=== PATIENT | female | born 1975 | race Caucasian/White ===

== ENCOUNTER → 2018-03-07 07:53 | Outpatient (POV) | payer BC, SELFPAY | PROVIDERS: Family Provider Nurse Practitioner Family; PCP Nurse Practitioner Family; Visit Provider Dermatology | DX: Z00.00 Encounter for general adult medical examination without 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 (principal) ==

== ENCOUNTER → 2018-06-06 07:58 | Outpatient (POV) | payer BC, SELFPAY | PROVIDERS: Family Provider Nurse Practitioner Family; PCP Nurse Practitioner Family; Visit Provider Dermatology | DX: Z00.00 Encounter for general adult medical examination without 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 (principal) ==

== ENCOUNTER → 2019-02-18 14:11 | Outpatient (POV) | payer SELFPAY | PROVIDERS: Visit Provider Dermatology | DX: Z00.00 Encounter for general adult medical examination without 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 (principal) ==

== ENCOUNTER → 2019-05-24 10:14 | Outpatient (CLI) | payer BC, SELFPAY ==
--- NOTE | 2019-05-24 10:24 | XR_ITS ---
PROCEDURE: XR FOOT LT MIN 3V CLINICAL INDICATION: PAIN Swelling and redness COMPARISON: No exams were available for comparison FINDINGS: No fracture or dislocation. No lytic or blastic change. There is normal mineralization. Osteoarthritic changes are present at the 1st MTP joint with hypertrophy of the distal aspect of the 1st metatarsal Other findings:None. 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
== END ==
PROVIDERS: PCP Nurse Practitioner Family; Visit Provider Nurse Practitioner Family
DX: M79.672 Pain in left foot (principal)
CPT/HCPCS: 73630

== ENCOUNTER → 2020-03-15 15:57 | Outpatient (CLI) | payer BC, SELFPAY ==
--- NOTE | 2020-03-15 16:08 | XR_ITS ---
PROCEDURE: XR MULTIPLE SPINE 4-5V CLINICAL INDICATION: BILATERAL SCIATICA Low back pain radiating to both hips, recent fall with injury and pain COMPARISON: No exams were available for comparison FINDINGS: Five views are obtained of the lumbar spine showing normal alignment. No fracture or dislocation. There is degenerative disc disease in the lower thoracic spine with small ventral osteophytes. IMPRESSION: Degenerative changes lower thoracic spine. Unremarkable lumbar spine Dictated by: Al Hebert MD 03/15/2020 16:33 Electronically signed by Al Hebert MD in [facility] 03/15/2020 16:33
== END ==
PROVIDERS: PCP Nurse Practitioner Family; Visit Provider Nurse Practitioner Family
DX: M54.42 Lumbago with sciatica, left side (principal); M54.41 Lumbago with sciatica, right side
CPT/HCPCS: 72083

== ENCOUNTER → 2020-06-28 08:10 | Outpatient (CLI) | payer BC, SELFPAY ==
--- NOTE | 2020-06-28 08:18 | XR_ITS ---
PROCEDURE: XR WRIST RT MIN 3V CLINICAL INDICATION: right wrist pain COMPARISON: No exams were available for comparison FINDINGS: No fracture or dislocation. No lytic or blastic change. There is normal mineralization. The joint spaces are well-preserved. No significant degenerative/arthritic changes. No erosive changes evident. Other findings:None. IMPRESSION: No acute findings. Dictated by: Al eHbert MD 06/28/2020 17:47 Al Hebert MD in [place] 06/28/2020 17:47
--- NOTE | 2020-06-28 08:18 | XR_ITS ---
PROCEDURE: XR WRIST LT MIN 3V CLINICAL INDICATION: left wrist pain COMPARISON: No exams were available for comparison FINDINGS: There is a vague lucency in the mid aspect of the scaphoid possibly due to overlying groove in the scaphoid. Dedicated images of the scaphoid or CT scan may provide further evaluation if clinically warranted.. The joint spaces are well-preserved. No significant degenerative/arthritic changes. No erosive changes evident. Other findings:Minimal hyperostosis involves the radial styloid laterally. IMPRESSION: Nonspecific lucency of the scaphoid possibly artifactual. Scaphoid images or CT may confirm if clinically warranted Dictated by: Al Hebert MD 06/28/2020 17:48 Al Hebert MD in [place] 06/28/2020 17:48
== END ==
PROVIDERS: PCP Nurse Practitioner Family; Visit Provider Orthopaedic Surgery
DX: M25.532 Pain in left wrist (principal); M25.531 Pain in right wrist
CPT/HCPCS: 73110

== ENCOUNTER → 2020-08-16 09:08 | Outpatient (CLI) | payer BC, SELFPAY ==
[2020-08-16 10:03] LABS: Basophils # 0.1 K/mm3 (0-0.2); Basophils % 0.4 % (0.1-2.0); Eosinophils % 0.4 % (0.1-12.0); Hematocrit 44.6 % (37.0-47.0); Hemoglobin 15.4 g/dL (12.2-16.2); Lymphocytes # 4.2 K/mm3 (0.7-4.5); Lymphocytes % 39.8 % (10-50); Mean Corpuscular HGB Conc 34.5 g/dL (31.8-35.4); Mean Corpuscular Volume 89.9 fl (81-99); Monocytes # 0.6 K/mm3 (0.1-1.0); Monocytes % 5.6 % (1.7-9.3); Neutrophils # 5.7 K/mm3 (1.8-7.8); Neutrophils % 53.8 % (37.0-80.0); Platelet Count 336 K/mm3 (142-424); Red Blood Count 4.96 M/mm3 (4.20-5.40); Red Cell Distribution Width 13.6 % (11.5-17.5); White Blood Count 10.5 K/mm3 (4.8-10.8)
[2020-08-16 11:49] LABS: Alanine Aminotransferase 17 U/L (12-78); Albumin Level 4.3 g/dl (3.5-5.0); Albumin/Globulin Ratio 1.6 (1.1-1.8); Alkaline Phosphatase 53 U/L (38-126); Anion Gap 11.3 mEq/L (5-15); Aspartate Amino Transferase 20 U/L (14-36); Bilirubin,Total 0.8 mg/dl (0.2-1.3); Blood Urea Nitrogen 17 mg/dl (7-17); Calcium 9.8 mg/dl (8.4-10.2); Carbon Dioxide 31 mmol/L (22.0-30.0); Chloride 98 mmol/L (98-107); Estimated Glomerular Filt Rate 77 ml/min (>60); GFR (African American) 93 ML/MIN (>60); Globulin 2.7 g/dL (1.3-3.2); Glucose 100 mg/dl (74-100); Potassium 3.3 mmoL/L (3.5-5.1); Sodium 137 mmol/L (136-145)
[2020-08-16 14:27] LABS: Coronavirus 19 IgG Antibody Negative (Negative); Coronavirus 19 IgM Antibody Negative (Negative)
[2020-08-16 16:39] LABS: MANUAL DIFFERENTIAL MANUAL DIFFERENTIAL (MANUAL DIFF)
[2020-08-16 17:45] LABS: Lymphocytes % 35 % (10-50); Monocytes % 6 % (2-9); Neutrophils % 59 % (42-76); Platelet Estimate Normal; RBC Morphology Normal; Total Cells Counted 100
== END ==
PROVIDERS: Visit Provider Orthopaedic Surgery
DX: Z01.818 Encounter for other preprocedural examination (principal); G56.00 Carpal tunnel syndrome, unspecified upper limb
CPT/HCPCS: 36415; 80053; 85007; 85014; 85018; 85048; 85049; 86328

== ENCOUNTER 2020-08-17 06:04 | Day surgery (SDC) | payer BC, SELFPAY ==
[2020-08-13 14:07] VITALS: BMI 36.6
[2020-08-17] VITALS (7 sets, daily range): BP systolic 124–153; BP diastolic 79–99; PULSE 68–91; RESP 18–20; TEMP 36.3–43; O2SAT 92–98
[2020-08-17 06:37] LABS: Urine Pregnancy, HCG Qual. Negative (Negative)
--- NOTE | 2020-08-17 06:47 | HMH.ANESCL ---
[facility] Anesthesia Checklist - Patient Identification Patient Identification: Arm Band, Verbal (Name & ) - Structural Data Admitted From: Home Planned Operative Procedure/s: Right CTR Consent for Planned Operative Procedure(s) Verified: Yes Verified Documents: Surgical Consent, History and Physical - NPO Status Verified Time NPO: 22:00 - Chart Verification Results Verified: CBC, BMP, HCG - Additional verifications Patient : No Anesthesia Reactions: No Hx Blood Transfusions: No Blood Transfusion Reaction: No - Airway Assessment C-Spine Mobility Assessed: Yes TMJ Mobility Assessed: Yes Dentition: Good Dentition - Neurological Assessment Level of Consciousness: Awake, Alert, Appropriate, Follows Commands Hx Seizures: No Numbness or tingling in extremities: Yes (Right hand) - Anesthesia Plan Anesthesia Risk discussed: Yes Anesthesia Plan: Verified ASA Class: II Anesthesia Type: MAC w/Block (Right supraclaviculer nerve block) [facility] History I have reviewed the patient's past medical history: Yes Medical History: Reports:: Anxiety, Gastroesophageal Reflux Disease(GERD), Hypertension Denies:: Cancer, Diabetes Mellitus Type 1, Diabetes Mellitus Type 2, Internal Pacemaker, MRSA, Seizures *Have you ever received a pneumonia vaccine?: No *Have you received a flu vaccine this season?: Yes Other Medical History: Reports: Hypothyroidism. Denies: Blood Transfusion Reaction Comment:: obesity Anesthesia experience/problems:: None Laterality Cases: Bilateral: Tonsillectomy Other Surgeries: No: Pacemaker Amputation: No Fractures: No - *Social History Smoking Status: Never smoker Alcohol Intake: never Substance Use Type: denies use *Occupational Status:: employed Housing: house Household Members: spouse *Travel in the last 8 weeks: None Family Hx:: Other (NA)
--- NOTE | 2020-08-17 12:10 | HMH.OPNOTE ---
Date of procedure: 08/17/20 Pre-op Diagnosis:: R carpal tunnel syndrome Post-op Diagnosis:: R carpal tunnel syndrome Procedure performed:: R carpal tunnel release Surgeon:: Alissa Rodríguez MD [employer] Technician(s):: Cici Keith MAKING DEPARTMENT PREPARER:: Adam Nash Anesthesia: MAC, regional (short-acting supraclavicular block ), local (10cc 0.5% marcaine w/o epi) Estimated blood loss (mL): 5 Clinical Note:: 45-year-old eryjp-mnuh-qgwssyaw female with pain, numbness and tingling in bilateral upper extremities present for over a year. Symptoms have been worse in the last 6 months or so. The right hand is symptomatically worse than the left. Symptoms are confined to the lateral aspect of the hand, in the median nerve distribution. They frequently wake her at night despite wearing braces to sleep. Additionally she has tried activity modification and naproxen, with no improvement. She has a history of hypertension hypothyroidism but denies a history of diabetes. She is a non-smoker, BMI 36. EMG?NCS bilateral upper extremities 04/26/2020 consistent with bilateral carpal tunnel syndrome, electrophysiologically moderate on the right and mild on the left. There are chronic neuropathic changes present in the right abductor pollicis brevis muscle. I discussed treatment options again with the patient, and she would like to proceed with R CTR as soon as possible. We discussed the risks of surgery, including but not limited to: bleeding, infection, neurovascular damage, wound dehiscence, persistence of symptoms despite surgery, recurrence of CTS and need for revision surgery in the future. The patient vocalized understanding and provided informed consent for the procedure. Operative findings:: median nerve compression R wrist Operative note:: The patient was identified in preoperative holding and the R wrist signed by myself. She was then seen by anesthesia and the decision was made to anesthetize the arm using a supraclavicular nerve block with MAC. I reviewed the consent with the patient and all questions were answered. Block was performed by anesthesia in pre-operative holding. The patient was then taken to the OR where she was placed supine on the operative table with a hand table attached. 1 g of Ancef was infused intravenously and light sedation administered. The right arm was prepped and draped in the usual sterile. Timeout was performed, identifying the correct patient, correct procedure, and correct site. The procedure was begun by using anatomic landmarks to draw the desired surgical incision with marking pen. The incision was drawn over the volar aspect of the right wrist at the intersection of Carroll's cardinal line and the radial border of the ring finger, extending proximally to the wrist flexion crease. The right arm was exsanguinated wtih Esmarch and the tourniquet inflated to 250mmHg. Incision was made with a 15 blade over the previously delineated incision. After the skin was incised, a blunt-tipped tenotomy scissors was used to bluntly spread the subcutaneous tissue. Tissue was spread until the transverse carpal ligament was identified. The proximal margin of the ligament was palpated with a [place] elevator. I was able to slip the tip of the free air under the proximal edge of the transverse carpal ligament and into the carpal tunnel. Using a fresh 15 blade, I lightly teased to the fibers of the transverse carpal ligament and release them from proximally to distally using the [place] to protect the underlying carpal tunnel contents. I continued to cut down onto the [place] moving distally, until the entire transverse carpal ligament was released. Then, using the blunt tenotomy scissors, I push cut around 5 mm of the distal forearm fascia and palpated the distal end of the transverse carpal ligament, confirming that the entire canal had been released. The median nerve was readily identified underlying the ligament and it was hyperemic; the portion of the nerve within the
== END 2020-08-17 09:50 | disposition home or self-care (01) ==
LOC: OR 06:06
PROVIDERS: PCP Nurse Practitioner Family; Visit Provider Orthopaedic Surgery
PROC: (CPT 64721; principal; 2020-08-17 07:30)
DX: G56.01 Carpal tunnel syndrome, right upper limb (principal)
CPT/HCPCS: 64721; 81025; 96374; J0670

== ENCOUNTER → 2021-01-11 13:08 | Outpatient (POV) | payer BC, SELFPAY | PROVIDERS: Visit Provider Dermatology | DX: Z00.00 Encounter for general adult medical examination without 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 (principal) ==

== ENCOUNTER → 2021-03-08 07:05 | Outpatient (CLI) | payer BC, SELFPAY ==
[2021-03-08 07:51] LABS: Basophils % 0.5 % (0.1-2.0); Eosinophils # 0.2 K/mm3 (0.0-0.4); Eosinophils % 2.5 % (0.1-12.0); Hematocrit 43.2 % (37.0-47.0); Hemoglobin 14.9 g/dL (12.2-16.2); Lymphocytes # 1.7 K/mm3 (0.7-4.5); Lymphocytes % 23.4 % (10-50); Mean Corpuscular HGB Conc 34.4 g/dL (31.8-35.4); Mean Corpuscular Hemoglobin 30.6 pg (27.0-31.2); Mean Corpuscular Volume 88.9 fl (81-99); Mean Platelet Volume 8.9 fl (7.4-10.4); Monocytes # 0.5 K/mm3 (0.1-1.0); Monocytes % 7.4 % (1.7-9.3); Neutrophils # 4.8 K/mm3 (1.8-7.8); Neutrophils % 66.2 % (37.0-80.0); Platelet Count 252 K/mm3 (142-424); Red Blood Count 4.86 M/mm3 (4.20-5.40); Red Cell Distribution Width 13.3 % (11.5-17.5); White Blood Count 7.2 K/mm3 (4.8-10.8)
[2021-03-08 08:21] LABS: Alanine Aminotransferase 17 U/L (12-78); Albumin Level 4.3 g/dl (3.5-5.0); Albumin/Globulin Ratio 1.7 (1.1-1.8); Alkaline Phosphatase 58 U/L (38-126); Anion Gap 8.3 mEq/L (5-15); Aspartate Amino Transferase 17 U/L (14-36); Bilirubin,Total 0.9 mg/dl (0.2-1.3); Blood Urea Nitrogen 10 mg/dl (7-17); Calcium 9.4 mg/dl (8.4-10.2); Carbon Dioxide 29 mmol/L (22.0-30.0); Chloride 102 mmol/L (98-107); Chol/HDL Ratio 4.1 (1-3.5); Cholesterol 203 mg/dl (140-200); Estimated Glomerular Filt Rate 77 ml/min (>60); GFR (African American) 93 ML/MIN (>60); Globulin 2.6 g/dL (1.3-3.2); Glucose 107 mg/dl (74-100); HDL Cholesterol 50 mg/dl (40-60); Potassium 3.3 mmoL/L (3.5-5.1); Sodium 136 mmol/L (136-145); Total Protein,Serum 6.9 g/dl (6.3-8.2); Triglycerides 81 mg/dl (30-150); VLDL Cholesterol 16 mg/dL (0-40)
[2021-03-08 08:32] LABS: Direct LDL Cholesterol 120.97 mg/dL (100-129)
[2021-03-08 08:38] LABS: 25-OH Vitamin D, Total 42.8 ng/mL (30-100)
[2021-03-08 08:52] LABS: Thyroid Stimulating Hormone 2.85 uIU/mL (0.465-4.68)
[2021-03-08 09:11] LABS: Vitamin B12 298 pg/mL (239-931)
== END ==
PROVIDERS: Visit Provider Nurse Practitioner Family
DX: Z00.00 Encounter for general adult medical examination without 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 (principal); E06.3 Autoimmune thyroiditis; R20.2 Paresthesia of skin; K21.9 Gastro-esophageal reflux disease without esophagitis; Z68.36 Body mass index [BMI] 36.0-36.9, adult; E66.9 Obesity, unspecified
CPT/HCPCS: 36415; 80053; 80061; 82306; 82607; 84439; 84443; 85025

== ENCOUNTER → 2021-03-15 09:33 | Outpatient (POV) | payer BC, SELFPAY | PROVIDERS: Visit Provider Otolaryngology | DX: Z00.00 Encounter for general adult medical examination without 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 (principal) ==

== ENCOUNTER 2021-05-20 19:58 | Emergency (ER) | payer BC, SELFPAY ==
[2021-05-20 20:00] VITALS: BP 134/89; PULSE 97; RESP 18; TEMP 36.8; O2SAT 98; BMI 29.2
--- NOTE | 2021-05-20 20:29 | HMH.EDUTC ---
[facility] [place] Clinical Impression: Viral upper respiratory illness Disposition: Home, Self-Care Condition on Discharge: Good Instructions: DI for Cough -- Adult, Guaifenesin, DI for COVID-19 (Suspected or Confirmed ), Coronavirus Disease 2019, Preventing the Spread of Coronavirus Discharge Instructions Additional Instructions: *Monitor Temp, Over the counter Motrin or Tylenol as directed/as needed Tylenol every 4 hours and Motrin every 6 hours (as long as your family doctor has told you that you can take it) for fever or pain. and straight to ER if unable to lower temp less than 101.0 after medication given *Warm salt water gargles may help to soothe the throat *Throat Lozenges *Warm fluids like tea with honey may help to soothe the throat *Sleep elevated *Humidifier/Vaporizer *Flonase 2 sprays in each nostril daily but be aware that it may take 2-3 days before you notice improvement Make sure to drink plenty of fluids with mucinex Return if needed Follow up IMMEDIATELY for new or worsening symptoms or no Noticeable improvement over the next 48-72 hours. 911 for difficulty breathing or swallowing You were tested for today for COVID19 your test result should be back in the next 24-48 hours, you may call to the [facility] to see if your test results are back in the next 48 hours [phone] [facility] hours are 9am-9pm You was given a handout with instructions for Self Quarantine and Self isolation for while you wait on test results and what to do if they are positive If you are positive the Health Dept will be contacting you also Make sure to take your Vitamins Vit. C Vit D and Zinc if you can take them Referrals: Oralia Treadwell APRN [Primary Care Provider] - As needed Forms: Work/School Release Time of Disposition: 20:36 Medical Decision Making - Jarred Inquiry Pt receiving controlled substance: No Jarred was queried for this patient: No Vital Signs: 05/20/21 20:00 Temperature 98.2 F Temperature Source Oral Pulse Rate [Right Brachial] 97 H Respiratory Rate 18 Blood Pressure [Right Arm] 134/89 Blood Pressure Mean [Right Arm] 104 Blood Pressure Source [Right Arm] Automatic Cuff Blood Pressure Position [Right Arm] Sitting 02 Sat by Pulse Oximetry 98 Oxygen Delivery Method Room Air Orders (Tests/Meds): ORDERS Category Date Time Status Full Resp Panel w/COVID ([facility]) Routine Lab 05/20/21 20:26 Ordered [facility] HPI - General Stated complaint: cough,[place],ear pain Time Seen by Provider: 05/20/21 20:29 Mode of Arrival: Ambulatory Source of Information: Patient Limitations: No Limitations Description of Symptoms (Recalled from Triage Doc. by RN): PATIENT C/O COUGH, EAR PAIN, AND CHEST CONGESTION. RECENTLY EXPOSED TO COVID AND RSV HEENT Symptoms (Recalled from RN notes): Yes Resp Symptoms (Recalled from RN notes): Yes Skin Symptoms (Recalled from RN notes): No MS Symptoms (Recalled from RN notes): No Functional Status (Recalled from RN notes): WNL - History of Present Illness Provider Complaint: Patient state that she has been around someone positive for COVID and someone with RSV states that today she started with cough and feeling like she is getting congested in her chest States that she has also been having pain in her ears States that she was concerned and wanted to get tested so she came in to get checked - Related Data Home Medications Medication Instructions Recorded Confirmed Buspirone HCl 2 tab PO BID 05/02/18 09/27/20 Telmisartan/Hydrochlorothiazid 1 tab PO DAILY 05/02/18 09/27/20 [Telmisartan-Hctz 40-12.5 mg Tb] Levothyroxine Sodium [Synthroid 25 mcg PO DAILY 10/11/19 09/27/20 25mcg (0.025mg) tablet] Omeprazole 40 mg PO DAILY 08/17/20 09/27/20 Allergies Allergy/AdvReac Type Severity Reaction Status Date / Time No Known Allergies Allergy Verified 09/27/20 08:36 - Worker's Comp Is this a Worker's Comp case?: No [facility] History - Hepatitis A Screen Drug use history?: No Hi
[2021-05-20 20:35] VITALS: BP 134/89; PULSE 97; RESP 18; TEMP 36.8; O2SAT 98
[2021-05-20 21:13] LABS: Adenovirus,PCR Not Detected (NotDetected); Bordetella Pertussis Not Detected (NotDetected); Chlamydophila Pneumoniae, PCR Not Detected (NotDetected); Coronavirus 229E Not Detected (NotDetected); Coronavirus NL63 Not Detected (NotDetected); Coronavirus OC43 Not Detected (NotDetected); Coronovirus HKU1,PCR Not Detected (NotDetected); Human Metapneumovirus Not Detected (NotDetected); Influenza A, PCR Not Detected (NotDetected); Influenza AH1, 2009 Not Detected (NotDetected); Influenza AH1, PCR Not Detected (NotDetected); Influenza AH3,PCR Not Detected (NotDetected); Influenza B, PCR Not Detected (NotDetected); Mycoplasma Pneumoniae, PCR Not Detected (NotDetected); Parainfluenza 1, PCR Not Detected (NotDetected); Parainfluenza 2, PCR Not Detected (NotDetected); Parainfluenza 3, PCR Not Detected (NotDetected); Parainfluenza 4, PCR Not Detected (NotDetected); Respiratory Syncytial Virus Not Detected (NotDetected); Rhinovirus/Enterovirus Not Detected (NotDetected)
[2021-05-21 11:40] LABS: Coronavirus 19, PCR Detected (NotDetected)
--- NOTE | 2021-05-21 12:35 | PC.NURSE ---
PT NOTIFIED OF POSITIVE COVID TEST RESULTS
== END 2021-05-20 20:42 | disposition home or self-care (01) ==
PROVIDERS: Emergency Provider Nurse Practitioner; PCP Nurse Practitioner Family
DX: U07.1 COVID-19 (principal); J06.9 Acute upper respiratory infection, unspecified; F41.9 Anxiety disorder, unspecified; I10 Essential (primary) hypertension; K21.9 Gastro-esophageal reflux disease without esophagitis; E03.9 Hypothyroidism, unspecified
CPT/HCPCS: 87581; 87633; 87798; 99202; G0463

== ENCOUNTER → 2021-09-14 16:28 | Outpatient (CLI) | payer BC, SELFPAY ==
--- NOTE | 2021-09-14 16:33 | XR_ITS ---
PROCEDURE INFORMATION: Exam: XR Bilateral Sacroiliac Joints Exam date and time: 09/14/2021 4:33 PM Age: 46 years old Clinical indication: Patient HX: Patient fell 1.5 years ago, pain over si joints. ; Additional info: Low back pain, other chronic pain TECHNIQUE: Imaging protocol: XR Bilateral XR of the sacroiliac joints. Views: 3 or more views. COMPARISON: CR XR MULTIPLE SPINE 4-5V 03/15/2020 4:12 PM FINDINGS: Bones/joints: No fracture. No malalignment. No fusion. Mild degenerative changes in the bilateral SI joints and hip joints. Soft tissues: Normal. IMPRESSION: Mild degenerative changes in the bilateral SI joints and hip joints
== END ==
PROVIDERS: PCP Nurse Practitioner Family; Visit Provider Nurse Practitioner Family
DX: M54.50 Low back pain, unspecified (principal); M53.3 Sacrococcygeal disorders, not elsewhere classified; G89.29 Other chronic pain
CPT/HCPCS: 72202

== ENCOUNTER → 2021-10-10 09:31 | Outpatient (POV) | payer BC, SELFPAY ==
[2021-10-10 09:57] VITALS: BP 142/90; PULSE 89; RESP 18; O2SAT 99; BMI 35.6
--- NOTE | 2021-10-10 10:09 | HMH.PMCON ---
Assessment and Plan (1) Sacroiliitis Status: Acute Category: Medical Code(s): M46.1 - Sacroiliitis, not elsewhere classified - Assessment and plan all Dx Assessment and Plan for all problems:: Per her x-ray, patient has mild degenerative changes on bilateral hips and SI. Patient has tried conservative therapy such as chiropractic adjustment with therapy and TENS unit in the past which provided minimal relief. Her right hip has positive valeri, ella's, compression, and distraction. We will schedule the patient for a right SI injection. Risks and benefits of the procedure have been explained to the patient. Patient would like to proceed with the procedure. Patient is not on any blood thinners. Patient has been instructed to contact the clinic with any concerns before the next appointment. Dr. Hernandez has reviewed this note and agrees with this plan of care. This note was dictated using voice recognition software and make contain errors or omissions. HPI - Data of Consult Patient: new to practice Consult date: 10/10/21 Requesting Physician: Susan Navarrete APRN Primary Care Provider: Oralia Treadwell APRN - Consult Narrative Reason for consult: right hip pain History of present illness: Ms. Brown is a 46 year old female who comes in here as a new patient. Patient is referred by Oraila Treadwell APRN for chronic right hip pain. Patient says that this started about 1.5 year ago when she slid down from her car. She then went to a chiropractor a month later who did adjustments, therapy, and TENS unit. This helped her a little bit but she still constantly still have this issue. Then one year later, she went to another chiropractor that did a hip adjustment which did not help her much. She has not gone to physical therapy. Patient says the pain is localized to her right hip and does not travel down to her right leg. She says that the pain is constant and her pain is the same with prolonged sitting, standing, and walking. Her x-ray from August 2021 shows some mild degenerative changes to bilateral SI joints and hips. She is currently taking tylenol for pain. She rates her pain today as 4 out of 10. Her Jarred is [phone] with an active morphine equivalents 0. CC: Susan Navarrete APRN [facility] History I have reviewed the patient's past medical history: Yes Medical History: Reports:: Anxiety, Gastroesophageal Reflux Disease(GERD), Hypertension Denies:: Cancer, Diabetes Mellitus Type 1, Diabetes Mellitus Type 2, Internal Pacemaker, MRSA, Seizures *Have you ever received a pneumonia vaccine?: No *Have you received a flu vaccine this season?: No Other Medical History: Reports: Hypothyroidism. Denies: Blood Transfusion Reaction Laterality Cases: Right: Carpal Tunnel Release, Bilateral: Tonsillectomy Other Surgeries: No: Pacemaker Amputation: No Fractures: No - *Social History Smoking Status: Never smoker Alcohol Intake: never Substance Use Type: denies use *Occupational Status:: employed Housing: house Household Members: spouse *Travel in the last 8 weeks: None - Psychiatric History Pschychiatric History:: Reports:: Anxiety Family Hx:: Other Review of Systems - Review of Systems Review of Systems General: No recent weight changes, no fever, no sleep disturbances Respiratory: No cough, no shortness of air, no recurring pulmonary infections Cardiovascular/peripheral vascular: No chest pain, no palpitations, no edema, no shortness of breath Gastrointestinal: No new onset incontinence, normal bowel movements reported Genitourinary: No new onset incontinence Musculoskeletal: right hip pain Psychiatric: [Normal mood/affect] Neurological: [Denies weakness in extremities], [denies balance issues] Meds Home Medications Medication Instructions Recorded Confirmed Type Buspirone HCl 2 tab PO BID 05/02/18 09/27/20 History Telmisartan/Hydrochlorothiazid 1 tab PO DAILY 05/02/18 09/27/20 History [Telmisartan-Hct
== END ==
PROVIDERS: Visit Provider Clinical Nurse Specialist Family Health
DX: M46.1 Sacroiliitis, not elsewhere classified (principal)
CPT/HCPCS: 99202; G0463

== ENCOUNTER 2022-01-11 17:53 | Emergency (ER) | payer BC, SELFPAY ==
[2022-01-11 18:34] VITALS: BP 141/85; PULSE 86; RESP 20; TEMP 36.6; O2SAT 98; BMI 36.6
--- NOTE | 2022-01-11 18:47 | CT_ITS ---
PROCEDURE INFORMATION: Exam: CT Head Without Contrast Exam date and time: 01/11/2022 6:57 PM Age: 46 years old Clinical indication: Numbness / parasthesia; Bilateral; Additional info: Facial/extremity numbness. Brain tumor HX TECHNIQUE: Imaging protocol: Computed tomography of the head without contrast. Radiation optimization: All CT scans at this facility use at least one of these dose optimization techniques: automated exposure control; mA and/or kV adjustment per patient size (includes targeted exams where dose is matched to clinical indication); or iterative reconstruction. COMPARISON: CT SOFT TISSUE NECK WO/W CON 10/10/2019 12:00 AM FINDINGS: Brain: Normal. No hemorrhage. Unremarkable white matter. No mass effect. Cerebral ventricles: No ventriculomegaly. Paranasal sinuses: Visualized sinuses are unremarkable. No fluid levels. Mastoid air cells: Visualized mastoid air cells are well aerated. Bones/joints: Unremarkable. No acute fracture. Soft tissues: Unremarkable. IMPRESSION: No acute intracranial findings.
--- NOTE | 2022-01-11 18:57 | CT_ITS ---
PROCEDURE INFORMATION: Exam: CT Cervical Spine Without Contrast Exam date and time: 01/11/2022 6:59 PM Age: 46 years old Clinical indication: Numbness; Additional info: Extremity numbness/ tumor HX TECHNIQUE: Imaging protocol: Computed tomography images of the cervical spine without contrast. Radiation optimization: All CT scans at this facility use at least one of these dose optimization techniques: automated exposure control; mA and/or kV adjustment per patient size (includes targeted exams where dose is matched to clinical indication); or iterative reconstruction. COMPARISON: CR XR MULTIPLE SPINE 4-5V 03/15/2020 4:12 PM FINDINGS: Bones/joints: Straightening of the curvature of the cervical spine is likely positional. Discs/Spinal canal/Neural foramina: No significant disc protrusion. No severe spinal canal stenosis. No significant neural foraminal narrowing. Lungs: Azygos fissure. Soft tissues: Unremarkable. IMPRESSION: No acute fracture or malalignment of the cervical spine.
[2022-01-11 19:11] LABS: Basophils # 0.3 K/mm3 (0-0.2); Basophils % 4.1 % (0.1-2.0); Eosinophils # 0.2 K/mm3 (0.0-0.4); Eosinophils % 3.3 % (0.1-12.0); Hematocrit 42.6 % (37.0-47.0); Hemoglobin 14.2 g/dL (12.2-16.2); Lymphocytes # 2.5 K/mm3 (0.7-4.5); Lymphocytes % 37.4 % (10-50); Mean Corpuscular HGB Conc 33.3 g/dL (31.8-35.4); Mean Corpuscular Hemoglobin 31.3 pg (27.0-31.2); Mean Platelet Volume 9.2 fl (7.4-10.4); Monocytes # 0.4 K/mm3 (0.1-1.0); Neutrophils # 3.3 K/mm3 (1.8-7.8); Neutrophils % 49.1 % (37.0-80.0); Platelet Count 271 K/mm3 (142-424); Red Blood Count 4.53 M/mm3 (4.20-5.40); Red Cell Distribution Width 13.5 % (11.5-17.5); White Blood Count 6.7 K/mm3 (4.8-10.8)
[2022-01-11 19:17] LABS: Chloride 103 mmol/L (98-107); Potassium 3.3 mmoL/L (3.5-5.1); Sodium 137 mmol/L (136-145)
[2022-01-11 19:19] LABS: Blood Urea Nitrogen 11 mg/dl (7-17)
[2022-01-11 19:20] LABS: Alanine Aminotransferase 23 U/L (12-78); Albumin Level 4.1 g/dl (3.5-5.0); Albumin/Globulin Ratio 1.4 (1.1-1.8); Alkaline Phosphatase 50 U/L (38-126); Anion Gap 9.3 mEq/L (5-15); Aspartate Amino Transferase 27 U/L (14-36); Bilirubin,Total 0.4 mg/dl (0.2-1.3); Carbon Dioxide 28 mmol/L (22.0-30.0); Creatinine Clearance Estimated 142 mL/min (50-200); Estimated Glomerular Filt Rate 90 ml/min (>60); GFR (African American) 109 ML/MIN (>60); Total Protein,Serum 7.1 g/dl (6.3-8.2)
[2022-01-11 19:21] LABS: Calcium 8.5 mg/dl (8.4-10.2); Glucose 112 mg/dl (74-100)
--- NOTE | 2022-01-11 19:27 | HMH.EDGENADL ---
ED Disposition Clinical Impression: Supraorbital neuralgia Disposition: Home, Self-Care Condition on Discharge: Good Additional Instructions: Ibuprofen as needed. Follow-up with primary care provider, call tomorrow to make appointment. Return the emergency department if symptoms worsen. Referrals: Oralia Treadwell APRN [Primary Care Provider] - - Critical Care Critical Care Time: No Attestation: On 01/11/22, the high probability of a clinically significant, sudden or life threatening deterioration of the following system(s) required my full and direct attention, intervention and personal management. The time I documented below is in addition to time spent performing reported procedures but includes the following listed in this critical care notation. Medical Decision Making - Jarred Inquiry Pt receiving controlled substance: No Vital Signs: 01/11/22 18:34 Temperature 98 F Temperature Source Oral Pulse Rate [Left Radial] 86 Respiratory Rate 20 Blood Pressure [Right Arm] 141/85 H Blood Pressure Mean [Right Arm] 103 02 Sat by Pulse Oximetry 98 Oxygen Delivery Method Room Air - Lab Data Lab Results 01/11/22 18:58: WBC 6.7, RBC 4.53, Hgb 14.2, Hct 42.6, MCV 94.0, MCH 31.3 H, MCHC 33.3, RDW 13.5, Plt Count 271, MPV 9.2, Neut % (Auto) 49.1, Lymph % (Auto) 37.4, Dodge % (Auto) 6.0, Eos % (Auto) 3.3, Baso % (Auto) 4.1 H, Neut # (Auto) 3.3, Lymph # (Auto) 2.5, Dodge # (Auto) 0.4, Eos # (Auto) 0.2, Baso # (Auto) 0.3 H 01/11/22 18:58: Sodium 137, Potassium 3.3 L, Chloride 103, Carbon Dioxide 28, Anion Gap 9.3, BUN 11, Creatinine 0.70, Estimated Creat Clear 142, Estimated GFR 90, Est GFR ( Amer) 109, Glucose 112 H, Calcium 8.5, Total Bilirubin 0.4, AST 27, ALT 23, Alkaline Phosphatase 50, Total Protein 7.1, Albumin 4.1, Globulin 3.0, Albumin/Globulin Ratio 1.4 Result diagrams: 01/11/22 18:58 01/11/22 18:58 Orders (Tests/Meds): ED MEDICATIONS Generic Name Dose Route Start Last Admin Trade Name Carmela PRN Reason Stop Dose Admin Sodium Chloride 10 ml 01/11/22 18:47 Sodium Chloride 0.9% 10ml Flush Syringe IV 02/10/22 18:46 NEEDED PRN Maintain IV Site - CT Data CT Scan: Head, C-Spine Time Received: 19:[address] Reviewed: Yes: I have viewed the radiologist's interpretation Findings Narrative: PROCEDURE INFORMATION: Exam: CT Head Without Contrast Exam date and time: 01/11/2022 6:57 PM Age: 46 years old Clinical indication: Numbness / parasthesia; Bilateral; Additional info: Facial/extremity numbness. Brain tumor HX TECHNIQUE: Imaging protocol: Computed tomography of the head without contrast. Radiation optimization: All CT scans at this facility use at least one of these dose optimization techniques: automated exposure control; mA and/or kV adjustment per patient size (includes targeted exams where dose is matched to clinical indication); or iterative reconstruction. COMPARISON: CT SOFT TISSUE NECK WO/W CON 10/10/2019 12:00 AM FINDINGS: Brain: Normal. No hemorrhage. Unremarkable white matter. No mass effect. Cerebral ventricles: No ventriculomegaly. Paranasal sinuses: Visualized sinuses are unremarkable. No fluid levels. Mastoid air cells: Visualized mastoid air cells are well aerated. Bones/joints: Unremarkable. No acute fracture. Soft tissues: Unremarkable. IMPRESSION: No acute intracranial findings. EDURE INFORMATION: Exam: CT Cervical Spine Without Contrast Exam date and time: 01/11/2022 6:59 PM Age: 46 years old Clinical indication: Numbness; Additional info: Extremity numbness/ tumor HX TECHNIQUE: Imaging protocol: Computed tomography images of the cervical spine without contrast. Radiation optimization: All CT scans at this facility use at least one of these dose optimization techniques: automated exposure control; mA and/or kV adju
[2022-01-11 20:10] VITALS: BP 152/100; PULSE 84; RESP 18; TEMP 36.9; O2SAT 98
== END 2022-01-11 20:16 | disposition home or self-care (01) ==
PROVIDERS: Emergency Provider Emergency Medicine; PCP Nurse Practitioner Family
DX: G50.0 Trigeminal neuralgia (principal); K21.9 Gastro-esophageal reflux disease without esophagitis; I10 Essential (primary) hypertension; E03.9 Hypothyroidism, unspecified; R29.700 NIHSS score 0
CPT/HCPCS: 70450; 72125; 80053; 85025; 99284

== ENCOUNTER → 2022-01-26 08:42 | Outpatient (CLI) | payer BC, SELFPAY ==
--- NOTE | 2022-01-26 08:52 | MR_ITS ---
FINAL REPORT CLINICAL HISTORY: HX OF BENIGN NEOPLASM OF BRAIN STEM. x4wks ago pain behind left eye. numbness on lt side of face around eye. in 2002 had spot on brainstem but has not had any problems since. headache. dizziness. 17ml prohance given. FINDINGS: Multiplanar MR imaging of the brain was performed without and with contrast. No prior MRIs are available for comparison. There is no evidence of intracranial hemorrhage or mass. No abnormal extra-axial fluid collection is seen. The ventricular size is within normal limits. There is no evidence of shift of the midline structures. The posterior fossa and brainstem have an unremarkable appearance. No area of abnormal restricted diffusion is identified. There is mild mucoperiosteal thickening in the maxillary sinuses, ethmoid air cells and sphenoid sinuses. No abnormal contrast enhancement is seen. Normal major vessel vascular flow voids are noted. IMPRESSION: Chronic maxillary, ethmoid and sphenoid sinusitis. No definite brainstem mass is identified. Reviewed, Interpreted and Dictated by Mike Melgar MD Transcribed by Dejuan Ca Authenticated by Mike Melgar MD on 01/26/2022 10:56:52 AM [facility]
== END ==
LOC: RAD 08:42
PROVIDERS: PCP Nurse Practitioner Family; Visit Provider Internal Medicine Adolescent Medicine
DX: Z86.011 Personal history of benign neoplasm of the brain (principal)
CPT/HCPCS: 70553; A9576

== ENCOUNTER 2022-11-05 10:12 | Emergency (ER) | payer BC, SELFPAY ==
[2022-11-05 10:20] VITALS: BP 141/91; PULSE 87; RESP 20; TEMP 36.8; O2SAT 98; BMI 33.7
--- NOTE | 2022-11-05 10:34 | EXP.UTC ---
Discharge Plan Disposition Patient Disposition: Home, Self-Care Condition: Good Prescriptions Prescriptions: New amoxicillin-pot clavulanate 875-125 mg Tablet 1 tab PO Q12H 7 Days Qty: 14 0RF guaifenesin [Mucinex] 600 mg tablet extended release 12hr 600 mg PO BID PRN (Reason: congestion) Qty: 20 0RF No Action telmisartan-hydrochlorothiazid 40-12.5 tablet 1 tab PO DAILY buspirone 7.5 MG tablet 2 tab PO BID Referrals Follow up/Referrals: Herbert Hair MD [Primary Care Provider] - See instructions Activity Restrictions/Add. Instructions Additional Instructions/Restrictions: *Monitor Temp, Over the counter Motrin or Tylenol as directed/as needed Tylenol every 4 hours and Motrin every 6 hours (as long as your family doctor has told you that you can take it) for fever or pain. and straight to ER if unable to lower temp less than 101.0 after medication given *Warm salt water gargles may help to soothe the throat *Throat Lozenges? *Warm fluids like tea with honey may help to soothe the throat? *Sleep elevated *Humidifier/Vaporizer Take mediation as prescribed Follow up IMMEDIATELY for new or worsening symptoms or no Noticeable improvement over the next 48-72 hours. 911 for difficulty breathing or swallowing Clinical Impressions Clinical Impression: Sinusitis Instructions Patient Instructions: DI for Sinusitis, Sinusitis Discharge ED Provider: Ambar Wu [facility] General Stated complaint: Cough congestion ear pain chest congestion Mode of Arrival: Ambulatory Source of Information: Patient Limitations: No Limitations Time Seen by Provider: 11/05/22 10:34 Description of Symptoms (Recalled from Triage Doc. by RN): chest congestion, cough, ear pain, sore throat HEENT Symptoms (Recalled from RN notes): Yes Resp Symptoms (Recalled from RN notes): No Skin Symptoms (Recalled from RN notes): No MS Symptoms (Recalled from RN notes): No Functional Status (Recalled from RN notes): n/a History of Present Illness Provider Complaint: Patient states that she has been having cough, sinus congestion and pressure at times along with pain in both ears and sore throat States that today she was still feeling bad so she came in to get it checked Related Data Home Medications Medication Instructions Recorded Confirmed buspirone 7.5 mg tablet 2 tab PO BID Anxiety 05/02/18 11/05/22 telmisartan 40 1 tab PO DAILY blood pressure 05/02/18 11/05/22 mg-hydrochlorothiazide 12.5 mg tablet dexlansoprazole 60 mg 60 mg PO DAILY . 11/05/22 11/05/22 capsule,biphase delayed release (Dexilant) levothyroxine 25 mcg tablet 25 mcg PO DAILY . 11/05/22 11/05/22 potassium chloride 10 mEq 20 meq PO DAILY . 11/05/22 11/05/22 tablet,extended release propranolol 20 mg tablet 20 mg PO DAILY . 11/05/22 11/05/22 Previous Rx's Medication Instructions Recorded amoxicillin 875 mg-potassium 1 tab PO Q12H 7 days #14 tabs 11/05/22 clavulanate 125 mg tablet guaifenesin 600 mg tablet, 600 mg PO BID PRN congestion #20 11/05/22 extended release 12 hr (Mucinex) tabs Allergies Allergy/AdvReac Type Severity Reaction Status Date / Time No Known Allergies Allergy Verified 11/05/22 10:37 Worker's Comp Is this a Worker's Comp case?: No [facility] Disclaimer: The information contained in this section may have been updated after the patient was seen, as this information can be updated by other users. Family History (Updated 11/05/22 @ 10:37 by Jannette Stephens RN) Other No significant family history Social History Smoking Status: Never smoker alcohol intake: never substance use type: denies use current occupational status: employed Travel in the last 8 weeks: None household members: spouse housing: house current occupational exposures/hazards: Yes caffeine: No ROS Obtained: Yes All systems reviewed & no additional complaints except as documented and Yes
[2022-11-05 10:45] VITALS: BP 144/91; PULSE 87; RESP 20; TEMP 36.8; O2SAT 98
== END 2022-11-05 10:45 | disposition home or self-care (01) ==
PROVIDERS: Emergency Provider Nurse Practitioner; PCP Internal Medicine Adolescent Medicine
DX: J32.9 Chronic sinusitis, unspecified (principal)
CPT/HCPCS: 99212; 99213; G0463

== ENCOUNTER 2022-11-15 15:00 | Outpatient (RCR) | payer BC, SELFPAY | END 2022-11-15 15:05 | disposition home or self-care (01) | LOC: PT 15:00 | PROVIDERS: PCP Nurse Practitioner Family | DX: C50.512 Malignant neoplasm of lower-outer quadrant of left female breast (principal) | CPT/HCPCS: 97110; 97140; 97162; 97164 ==

== ENCOUNTER 2023-01-23 13:27 | Emergency (ER) | payer BC, SELFPAY ==
[2023-01-23 13:49] VITALS: BP 151/98; PULSE 93; RESP 20; TEMP 36.9; O2SAT 96; BMI 36.2
--- NOTE | 2023-01-23 13:52 | XR_ITS ---
FINAL REPORT CLINICAL HISTORY: CHEST CONGESTION COMPARISON: 01/09/2020 FINDINGS: Two views of the chest were obtained. The heart size and pulmonary vascularity are within normal limits. The mediastinum is normal. No acute pulmonary abnormality is identified. There is no pneumothorax. The bony thorax is intact. IMPRESSION: No active cardiopulmonary disease. Reviewed, Interpreted and Dictated by Gareth Sommer III, MD Transcribed by Julee Borrero Authenticated and [facility]
--- NOTE | 2023-01-23 14:28 | EXP.UTC ---
Discharge Plan Disposition Patient Disposition: Home, Self-Care Condition: Good Prescriptions Prescriptions: New benzonatate 100 mg capsule 100 mg PO TID PRN (Reason: cough) Qty: 30 0RF cefdinir 300 mg capsule 300 mg PO BID Qty: 20 0RF No Action telmisartan-hydrochlorothiazid 40-12.5 tablet 1 tab PO DAILY buspirone 7.5 MG tablet 2 tab PO BID potassium chloride 10 mEq tablet extended release 20 meq PO DAILY Label Comments: TAKE 2 TABLETS BY MOUTH ONCE DAILY levothyroxine 25 mcg tablet 25 mcg PO DAILY Label Comments: TAKE 1 TABLET BY MOUTH ONCE DAILY propranolol 20 mg tablet 20 mg PO DAILY Label Comments: TAKE 1 TABLET BY MOUTH AT BEDTIME dexlansoprazole [Dexilant] 60 mg capsule,biphase delayed releas 60 mg PO DAILY Label Comments: TAKE 1 CAPSULE BY MOUTH ONCE DAILY amoxicillin-pot clavulanate 875-125 mg Tablet 1 tab PO Q12H 7 Days Qty: 14 0RF guaifenesin [Mucinex] 600 mg tablet extended release 12hr 600 mg PO BID PRN (Reason: congestion) Qty: 20 0RF Referrals Follow up/Referrals: Oralia Treadwell APRN [Primary Care Provider] - See instructions Activity Restrictions/Add. Instructions Additional Instructions/Restrictions: Start antibiotic today. Be sure to complete entire prescription even if feeling better Monitor temp. Tylenol every 4 hours as needed and / or ibuprofen every 6 hours as needed ( As long as your primary care physician has told you that it ok to take both. For fever/aches/pains ER if no less than 101 despite Tylenol or Motrin Humidifier/vaporizer or hot steamy shower *Tessalon Perles will not cause drowsiness but use at bedtime to help stop cough so that you may get some rest. Follow up with your Family Doctor if no improvement or any life threatening symptoms Follow up IMMEDIATELY for new or worsening of symptoms OR no noticeable improvement over the next 48-72 hours. 911 immediately for any life threatening symptoms such as chest pain or difficulty breathing Clinical Impressions Clinical Impression: Sinusitis, Bronchitis Instructions Patient Instructions: Sinus Headache, Acute Bronchitis Discharge ED Provider: Ambar Wu [facility] General Stated complaint: congestion, cough Mode of Arrival: Ambulatory Source of Information: Patient Limitations: No Limitations Time Seen by Provider: 01/23/23 14:28 Description of Symptoms (Recalled from Triage Doc. by RN): pt c/o a productive cough with brown sputum, congestion, sinus drainage, and pain in her lungs with coughing. ongoing since 01/14 HEENT Symptoms (Recalled from RN notes): Yes Resp Symptoms (Recalled from RN notes): Yes Skin Symptoms (Recalled from RN notes): No MS Symptoms (Recalled from RN notes): No Functional Status (Recalled from RN notes): wnl History of Present Illness Provider Complaint: Patient states that she has been having a cough that is productive at times, sinus congestion and pressure and feels like it is trying to move into her chest States that she has tried to find OTC cough medication to take that wont interact with her medication but hasnt been able to find any States that today she wasnt feeling any better so she came in Related Data Home Medications Medication Instructions Recorded Confirmed buspirone 7.5 mg tablet 2 tab PO BID Anxiety 05/02/18 11/05/22 telmisartan 40 1 tab PO DAILY blood pressure 05/02/18 11/05/22 mg-hydrochlorothiazide 12.5 mg tablet dexlansoprazole 60 mg 60 mg PO DAILY . 11/05/22 11/05/22 capsule,biphase delayed release (Dexilant) levothyroxine 25 mcg tablet 25 mcg PO DAILY . 11/05/22 11/05/22 potassium chloride 10 mEq 20 meq PO DAILY . 11/05/22 11/05/22 tablet,extended release propranolol 20 mg tablet 20 mg PO DAILY . 11/05/22 11/05/22 Previous Rx's Medication Instructions Recorded amoxicillin 875 mg-potassium 1 tab PO Q12H 7 days #14
[2023-01-23 15:16] VITALS: BP 151/98; PULSE 93; RESP 20; TEMP 36.9
== END 2023-01-23 15:18 | disposition home or self-care (01) ==
PROVIDERS: Emergency Provider Nurse Practitioner; PCP Nurse Practitioner Family
DX: J20.9 Acute bronchitis, unspecified (principal); J01.90 Acute sinusitis, unspecified
CPT/HCPCS: 71046; 99212; 99214; G0463

== ENCOUNTER → 2023-06-07 07:09 | Outpatient (CLI) | payer BC, SELFPAY ==
[2023-06-07 09:17] LABS: Chloride 105 mmol/L (98-107); Potassium 3.8 mmoL/L (3.5-5.1); Sodium 141 mmol/L (136-145)
[2023-06-07 09:20] LABS: Alanine Aminotransferase 32 U/L (12-78); Albumin Level 3.9 g/dl (3.5-5.0); Albumin/Globulin Ratio 1.4 (1.1-1.8); Alkaline Phosphatase 67 U/L (38-126); Anion Gap 12.8 mEq/L (5-15); Aspartate Amino Transferase 24 U/L (14-36); Bilirubin,Total 0.6 mg/dl (0.2-1.3); Blood Urea Nitrogen 16 mg/dl (7-17); Carbon Dioxide 27 mmol/L (22.0-30.0); Cholesterol 233 mg/dl (140-200); Estimated Glomerular Filt Rate 76 ml/min (>60); GFR (African American) 92 ML/MIN (>60); Globulin 2.8 g/dL (1.3-3.2); Glucose 115 mg/dl (74-100); HDL Cholesterol 47 mg/dl (40-60); Total Protein,Serum 6.7 g/dl (6.3-8.2); Triglycerides 75 mg/dl (30-150); VLDL Cholesterol 15 mg/dL (0-40)
[2023-06-07 09:31] LABS: Direct LDL Cholesterol 136.27 mg/dL (100-129)
== END ==
PROVIDERS: PCP Internal Medicine Adolescent Medicine; Visit Provider Internal Medicine
DX: R07.9 Chest pain, unspecified (principal); G89.29 Other chronic pain; Z91.89 Other specified personal risk factors, not elsewhere classified
CPT/HCPCS: 36415; 80053; 80061

== ENCOUNTER 2023-06-28 14:00 | Outpatient (RCR) | payer BC, SELFPAY | END 2023-06-28 14:05 | disposition home or self-care (01) | LOC: PT 14:00 | PROVIDERS: PCP Nurse Practitioner Family; Visit Provider Surgery | DX: C50.912 Malignant neoplasm of unspecified site of left female breast (principal); I97.2 Postmastectomy lymphedema syndrome; Z92.3 Personal history of irradiation | CPT/HCPCS: 97110; 97140; 97163; 97164; 97530 ==

== ENCOUNTER 2023-10-31 11:00 | Outpatient (RCR) | payer BC, SELFPAY | END 2023-10-31 12:00 | disposition home or self-care (01) | LOC: PT 11:00 | PROVIDERS: PCP Internal Medicine Adolescent Medicine; Visit Provider Surgery | DX: C50.512 Malignant neoplasm of lower-outer quadrant of left female breast (principal); I89.0 Lymphedema, not elsewhere classified | CPT/HCPCS: 97140; 97163; 97164 ==

== ENCOUNTER 2024-01-20 09:52 | Emergency (ER) | payer BC, SELFPAY ==
--- OUTSIDE RECORDS SUMMARY | 2024-01-20 09:58 | XMS_ITS ---
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 Medications Medication Instructions Start Date Stop Date Generic Name NDC Provider CEPHALEXIN 500 MG CAPS Take 1 capsule by mouth three times a day 0 cephalexin [id number] Aman Walls MD DOXYCYCLINE MONOHYDRATE 100 MG CAPS Take 1 capsule by mouth twice a day 0 doxycycline monohydrate [id number] Aman Walls MD Medications Administered No information available. Allergies, Adverse Reactions, Alerts No information available. 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 Plan of Care Type Date Detail Pending order Wound Culture an d Sensitivity w/Gram Stain Procedures Code Procedure Name Date Entry Date CPT-00857 Wound Culture and Sensitivity w/Gram Stai n Vital Signs Date Name Value Unit Description BMI (Body Mass Index) 37.31 kg/m2 Bod y Mass Index (Ratio) Body Temperature 97.8 [degF] temperat ure E&M BP Diastolic 65 mm[Hg] blood pressu re, diastolic BP Systolic 108 mm[Hg] blood pressur e, systolic Heart Rate 68 /min pulse rate Height 62 [in_us] height E&M Respiratory Rate 16 /min respirat ory rate E&M Weight Measured 204 [lb_av] weight E& M Immunizations No information available. Advance Directives Directive Description Start Date NO ADV DIRECTIVE EST
--- OUTSIDE RECORDS SUMMARY | 2024-01-20 09:58 | XMS_ITS | Clinical Summary ---
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 Phone Aman Walls MD [phone] Conditions or Problems Problem Name Problem Code Onset Date Status Entry Date Provider Comment Standard Description Annotate Hx of malignant neoplasm of breast 586874307 (SNOMED CT) Active Floresita Fox History of malignant neoplasm of breast Personal history of antineoplastic chemotherapy 385636071 (SNOMED CT) Active Floresita Ruddy H/O: chemotherapy History of irradiation therapy Z92.3 (ICD-10-CM ) Active Floresita Ruddy Personal history of irradiation Cellulitis, chest wall 79359021 (SNOMED CT) Active Floresita Ruddy Cellulitis of chest wall Abscess, chest wall 64816315 (SNOMED CT) Active Floresita Ruddy Abscess of chest wall Infection, local skin/subcutaneo us tissue 754851771 (SNOMED CT) Active Floresita Ruddy Localized infection of skin AND/OR subcutaneous tissue History of bilateral mastectomy 570440767 (SNOMED CT) Active Floresita Ruddy History of right mastectomy Cellulitis of left breast N61.0 (ICD-10-CM ) Resolved Floresita Fox Mastitis without abscess Morbid obesity due to excess calories E66.01 (ICD-10-CM ) Active Floresita Fox Morbid (severe) obesity due to excess calories Javed's thyroiditis 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 (SNOMED CT) Active Floresita Fox Javed thyroiditis Benign Essential Hypertension 13256842 (SNOMED CT) Active Floresita Fox Benign hypertension Cellulitis of left breast N61.0 (ICD-10-CM ) Removed Ara Dyer Mastitis without abscess Medications Medication Instructions Start Date Stop Date Generic Name NDC Provider DOXYCYCLINE MONOHYDRATE 100 MG TABS Take 1 tablet by mouth twice a day doxycycline monohydrate 38140440897 Aman Walls MD BIOTIN 5000 MCG CAPS Take 1 capsule by mouth once a day biotin 73182660195 Piper Lani ceftriaxone recon soln 2GM IV Q24hrs - INPAT ceftriaxone recon soln Piper Lani FLUTICASONE PROPIONATE 50 MCG/ACT SUSP 2 spray into both nostrils once a day as directed fluticasone propionate 55581678476 Piper Lani BUSPIRONE HCL 15 MG TABS Take 1 tablet by mouth three times a day buspirone 40900749172 Piper Lani ROSUVASTATIN CALCIUM 10 MG TABS Take 1 tablet by mouth once a day rosuvastatin 50192656192 Piper Lani MULTI +DHA 27-0.8-250 MG CAPS Take 900 by mouth once a day vit 43-[id number]-dh a 05870270099 Piper Lani Misc Natural Products Take 1 tablet by mouth once a day OSTEO BI-FLEX ADV JOINT SHIELD PO Piper Lani VITAMIN B-12 1000 MCG TABS Take 1 tablet by mouth once a day cyanocobalamin (vitamin b-12) 83489511819 Piper Lani LEVOTHYROXINE SODIUM 50 MCG TABS Take 1 tablet by mouth once a day levothyroxine 39329349229 Piper Lani ANASTROZOLE 1 MG TABS Take 1 tablet by mouth once a day anastrozole 42244652141 Piper Lani PROPRANOLOL HCL 20 MG TABS Take 1 tablet by mouth every night propranolol 53596063710 Piper Lani ESOMEPRAZOLE MAGNESIUM 20 MG CPDR Take 2 capsule by mouth every morning esomeprazole magnesium 32170242021 Piper Lani HYDROCODONE-ACET AMINOPHEN 5-325 MG TABS Take 1 tablet by mouth every six hours as needed hydrocodone-acet aminophen 46317005112 Piper Lani cubicin 500mg IV Q24hrs - INPAT cubicin Piper Lani TELMISARTAN-HCTZ 40-12.5 MG TABS Take 1 tablet by mouth every night telmisartan-hydr ochlorothiazid 91592691536 Piper Lani LORATADINE 10 MG CAPS Take 1 capsule by mouth once a day LORATADINE Piper Lani VITAMIN E 180 MG (400 UNIT) CAPS Take 1 capsule by mouth once a day vitamin e (dl, acetate) 11994423783 Piper Lani OXYCODONE-ACETAM INOPHEN 10-325 MG TABS Take 1 tablet by mouth every eight hours as needed oxycodone-acetam inophen 36357276891 Piper Lani CEPHALEXIN 500 MG CAPS Take 1 capsule by mouth three times a day cephalexin 70146281696 Aman Walls MD DOXYCYCLINE MONOHYDRATE 100 MG CAPS Take 1 capsule by mouth twice a day doxycycline monohydrate 30122316325 Aman Walls MD VITAMIN E 180 MG (400 UNIT) CAPS Take 1 capsule by mouth Daily. vitamin e (dl, acetate) 45205024914 QIE qieuser VITAMIN B-12 1000 MCG TABS Take 1 tablet by mouth Daily. cyanocobalamin (vitamin b-12) 48107377980 QIE qieuser TELMISARTAN-HCTZ 40-12.5 MG TABS Take 1 tablet by mouth Every Evening. telmisartan-hydr ochlorothiazid 72128704827 QIE qieuser ROSUVASTATIN CALCIUM 10 MG TABS Take 1 tablet by mouth Daily. rosuvastatin 77759379437 QIE qieuser PROPRANOLOL HCL 20 MG TABS Take 1 tablet by mouth every night at bedtime. propranolol 48054534884 QIE qieuser MULTI +DHA 27-0.8-250 MG CAPS Take 900 doses by mouth Daily. vit 56-[id number]-gsfmm-dh a 29090110316 QIE qieuser OXYCODONE-ACETAM INOPHEN 10-325 MG TABS Take 1 tablet by mouth Every 8 (Eight) Hours As Needed for Moderate Pain. oxycodone-acetam inophen 29283238783 QIE qieuser Misc Natural Products Take 1 tablet by mouth Daily. OSTEO BI-FLEX ADV JOINT SHIELD PO QIE qieuser LORATADINE 10 MG CAPS Take 1 capsule by mouth Daily. LORATADINE QIE qieuser LEVOTHYROXINE SODIUM 50 MCG TABS Take 1 tablet by mouth Daily. levothyroxine 34467314991 QIE qieuser HYDROCODONE-ACET AMINOPHEN 5-325 MG TABS Take 1 tablet by mouth Every 6 (Six) Hours As Needed. hydrocodone-acet aminophen 75234645700 QIE qieuser FLUTICASONE PROPIONATE 50 MCG/ACT SUSP 2 sprays into the nostril(s) as directed by provider Daily. fluticasone propionate 39524720384 QIE qieuser ESOMEPRAZOLE MAGNESIUM 20 MG CPDR Take 2 capsules by mouth Every Morning Before Breakfast. esomeprazole magnesium 08637347105 QIE qieuser BUSPIRONE HCL 15 MG TABS Take 1 tablet by mouth 2 (Two) Times a Day. 2nd time at bedtime. buspirone 65595142376 QIE qieuser SM BIOTIN 5000 MCG CAPS Take 1 capsule by mouth Daily. biotin 00603231048 QIE qieuser ANASTROZOLE 1 MG TABS Take 1 tablet by mouth Daily. anastrozole 42918693943 QIE qieuser cubicin 500mg IV Q24hrs - INPAT cubicin Chantale Alexandrea ceftriaxone recon soln 2GM IV Q24hrs - INPAT ceftriaxone recon soln Chantale Alexandrea Medications Administered No information available. Allergies, Adverse Reactions, Alerts Allergy Name Reaction Description Start Date Severity Statu s Provider CHLORHEXIDINE DIACETATE Moderate Activ e Piper Lani Results Date Name Value Unit Range Flag Description Lab Report: CBC WITH AUTO DI FFERENTIAL IMMATUREGRAN 0.02 10*3/MM3 0.00-0.05 Immature granulocytes [#/volume] in Blood BASO# 0.02 10*3/mm3 0.00-0.20 Basop hils [#/volume] in Blood EOS ABSLT 0.18 10*3/uL 0.00-0.40 Eosinophi ls [#/volume] in Blood MONOSCT AUTO 0.26 10*3/uL 0.10-0.90 Monocy drai [#/volume] in Blood by Automated count LYMPHCT AUTO 1.79 10*3/mm3 0.70-3.10 Lymph ocytes [#/volume] in Blood by Automated count ABS NEUTROPH 2.22 10*3/uL 1.70-7.00 Neutro phils [#/volume] in Blood IMM GRANU % 0.4 % 0.0-0.5 Immature granulocytes/100 leukocytes in Blood % EOS AUTO 4.0 % 0.3-6.2 Eosinophil s/100 leukocytes in Blood by Automated count MONOCYTE % 5.8 % 5.0-12.0 Monocytes /100 leukocytes in Blood by Automated count LYMPHOCY BF 39.9 % 19.6-45.3 lymphoc ytes as percent of body fluid leukocytes NEUTROP BF 49.5 % 42.7-76.0 Neutroph ils/100 leukocytes in Body fluid PLATELETS 296 10*3/mm3 140-450 Platelets [#/volume] in Blood by Automated count RDW_ 12.6 12.3-15.4 RDW, no uni ts MCHC 33.5 G/DL 31.5-35.7 MCHC [Mass/ volume] by Automated count MCH 31.3 pg 26.6-33.0 MCH [Entiti c mass] by Automated count MCV 93.4 fL 79.0-97.0 MCV [Entiti c volume] by Automated count HCT 37.0 % 34.0-46.6 Hematocrit [Volume Fraction] of Blood by Automated count HGB 12.4 g/dL 12.0-15.9 Hemoglobin [Mass/volume] in Blood RBC 3.96 10*6/mm3 3.77-5.28 Erythrocyt es [#/volume] in Blood by Automated count WBC 4.49 10*3/mm3 3.40-10.8 0 Leukocytes [#/volume] in Blood by Automated count Lab Report: SEDIMENTATION RA TE ESR 26 mm/h 0-20 H Erythrocyte sedimentation rate by Westergren method Lab Report: CK CPK 64 U/L 20-180 Creatine jc se [Enzymatic activity/volume] in Serum or Plasma Lab Report: C-REACTIVE PROTE IN CRP 0.84 mg/dL 0.00-0.50 H C reactive protein [Mass/volume] in Serum or Plasma Lab Report: COMPREHENSIVE ME TABOLIC PANEL ANIONGAP 10.0 mmol/L 5.0-15.0 anion gap, serum BUN/CREAT 18.5 7.0-25.0 Urea nitrogen/Creatinine [Mass Ratio] in Serum or Plasma BILI TOTAL <0.2 mg/dL 0.0-1.2 Bilirubin. total [Mass/volume] in Serum or Plasma ALK PHOS 102 U/L 39-117 Alkaline anu sphatase [Enzymatic activity/volume] in Blood SGOT (AST) 13 U/L 1-32 Aspartate aminotransferase [Enzymatic activity/volume] in Serum or Plasma SGPT (ALT) 27 U/L 1-33 Alanine aminotransferase [Enzymatic activity/volume] in Serum or Plasma ALBUMIN 4.0 g/dL 3.5-5.2 Albumin [Mass/volume] in Serum or Plasma PROTEIN, TOT 6.8 g/dL 6.0-8.5 Protein [Mass/volume] in Serum or Plasma CALCIUM 9.5 mg/dL 8.6-10.5 Calcium [Moles/volume] in Serum or Plasma CO2 28.0 mmol/L 22.0-29.0 Carbon diox miki, total [Moles/volume] in Venous blood CHLORIDE 103 mmol/L 98-107 Chloride [Moles/volume] in Serum or Plasma POTASSIUM 3.7 mmol/L 3.5-5.2 Potassium [Moles/volume] in Serum or Plasma SODIUM 141 mmol/L 136-145 Sodium [Moles/volume] in Serum or Plasma CREATININE 0.81 mg/dL 0.57-1.00 Creatini ne [Mass/volume] in Serum or Plasma BUN 15 mg/dL 6-20 Urea nitrogen [Mass/volume] in Serum or Plasma GLUCOSE SER 162 mg/dL 65-99 H Glucose [Mass/volume] in Serum or Plasma Lab Report: WOUND CULTURE [id number] No organisms seen GE use only - fo r LinkLogic import when terms are not otherwise specified Office Visit: rm 6 ORALTOBACUSE Never Tobacco smoking status SMOK STATUS 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 MEDS REVIEW Done Documenta tion of current medications (procedure) Plan of Care Type Date Detail Pending order Wound Culture an d Sensitivity w/Gram Stain Pending order Change IV antibi otics Pending order Continue IV anti biotics Pending order Stat Weekly Labs Procedures Code Procedure Name Date Entry Date CPT-99323 Wound Culture and Sensitivity w/Gram Stai n CPT-nikolai Change IV antibiotics CPT-ca Continue IV antibiotics 2022 CPT- stat weekly Stat Weekly Labs Vital Signs Date Name Value Unit Description BMI (Body Mass Index) 36.65 kg/m2 Bod y Mass Index (Ratio) Body Temperature 97.9 [degF] temperat ure E&M BP Diastolic 90 mm[Hg] blood pressu re, diastolic BP Systolic 128 mm[Hg] blood pressur e, systolic Heart Rate 90 /min pulse rate Height 62 [in_us] height E&M Respiratory Rate 16 /min respirat ory rate E&M Weight Measured 200.4 [lb_av] weight E& M Immunizations No information available. Advance Directives Directive Description Start Date NO ADV DIRECTIVE EST
--- OUTSIDE RECORDS SUMMARY | 2024-01-20 09:58 | XMS_ITS ---
Author Name Unknown Address [address] [place] [address] Phone Organization [facility] Address [address] [place] [address] Phone Care Team Providers Care Toy Department Manager Name Role Phone Piper Garibay Unavailable Unavailable Conditions or Problems No information available. Medications Medication Instructions Start Date Stop Date Generic Name NDC Provider VITAMIN E 180 MG (400 UNIT) CAPS Take 1 capsule by mouth Daily. vitamin e (dl, acetate) 28945917229 QIE qieuser VITAMIN B-12 1000 MCG TABS Take 1 tablet by mouth Daily. cyanocobalamin (vitamin b-12) 61087509014 QIE qieuser TELMISARTAN-HCTZ 40-12.5 MG TABS Take 1 tablet by mouth Every Evening. telmisartan-hydro chlorothiazid 30458558202 QIE qieuser ROSUVASTATIN CALCIUM 10 MG TABS Take 1 tablet by mouth Daily. rosuvastatin 52969708850 QIE qieuser PROPRANOLOL HCL 20 MG TABS Take 1 tablet by mouth every night at bedtime. propranolol 63508324891 QIE qieuser MULTI +DHA 27-0.8-250 MG CAPS Take 900 doses by mouth Daily. vit 44-cmny-haxvu-dha 42813573739 QIE qieuser OXYCODONE-ACETAM INOPHEN 10-325 MG TABS Take 1 tablet by mouth Every 8 (Eight) Hours As Needed for Moderate Pain. oxycodone-acetami nophen 52264975947 QIE qieuser Misc Natural Products Take 1 tablet by mouth Daily. OSTEO BI-FLEX ADV JOINT SHIELD PO QIE qieuser LORATADINE 10 MG CAPS Take 1 capsule by mouth Daily. LORATADINE QIE qieuser LEVOTHYROXINE SODIUM 50 MCG TABS Take 1 tablet by mouth Daily. levothyroxine 78549651130 QIE qieuser HYDROCODONE-ACET AMINOPHEN 5-325 MG TABS Take 1 tablet by mouth Every 6 (Six) Hours As Needed. hydrocodone-aceta minophen 97079719155 QIE qieuser FLUTICASONE PROPIONATE 50 MCG/ACT SUSP 2 sprays into the nostril(s) as directed by provider Daily. fluticasone propionate 66067093769 QIE qieuser ESOMEPRAZOLE MAGNESIUM 20 MG CPDR Take 2 capsules by mouth Every Morning Before Breakfast. esomeprazole magnesium 71572572109 QIE qieuser BUSPIRONE HCL 15 MG TABS Take 1 tablet by mouth 2 (Two) Times a Day. 2nd time at bedtime. buspirone 02414529867 QIE qieuser SM BIOTIN 5000 MCG CAPS Take 1 capsule by mouth Daily. biotin 51811212550 QIE qieuser ANASTROZOLE 1 MG TABS Take 1 tablet by mouth Daily. anastrozole 53327821384 QIE qieuser Medications Administered No information available. Allergies, Adverse Reactions, Alerts No information available. Results No information available. Plan of Care No information available. Procedures No information available. Vital Signs No information available. Immunizations No information available. Advance Directives No information available.
--- OUTSIDE RECORDS SUMMARY | 2024-01-20 09:58 | XMS_ITS ---
Author Name Unknown Address [address] [place] [address] Phone Organization [facility] Address [address] [place] [address] Phone Care Team Providers Care Helper Animal Laboratory Name Role Phone Aman Walls MD Unavailable [phone] Conditions or Problems No information available. Medications Medication Instructions Start Date Stop Date Generic Name ND Provider DOXYCYCLINE MONOHYDRATE 100 MG TABS Take 1 tablet by mouth twice a day doxycycline monohydrate [id number] Aman Walls MD BIOTIN 5000 MCG CAPS Take 1 capsule by mouth once a day biotin 88022294991 Piper Lani ceftriaxone recon soln 2GM IV Q24hrs - INPAT ceftriaxone recon soln Piper Lani FLUTICASONE PROPIONATE 50 MCG/ACT SUSP 2 spray into both nostrils once a day as directed fluticasone propionate 07866463397 Piper Lani BUSPIRONE HCL 15 MG TABS Take 1 tablet by mouth three times a day buspirone 20773146995 Piper Lani ROSUVASTATIN CALCIUM 10 MG TABS Take 1 tablet by mouth once a day rosuvastatin 28139260485 Piper Lani MULTI +DHA 27-0.8-250 MG CAPS Take 900 by mouth once a day vit 93-ceil-vrfjd-dh a 79213698136 Piper Lani Misc Natural Products Take 1 tablet by mouth once a day OSTEO BI-FLEX ADV JOINT SHIELD PO Piper Lani VITAMIN B-12 1000 MCG TABS Take 1 tablet by mouth once a day cyanocobalamin (vitamin b-12) 46655478205 Piper Lani LEVOTHYROXINE SODIUM 50 MCG TABS Take 1 tablet by mouth once a day levothyroxine 28706105512 Piper Lani ANASTROZOLE 1 MG TABS Take 1 tablet by mouth once a day anastrozole 19599989927 Piper Lani PROPRANOLOL HCL 20 MG TABS Take 1 tablet by mouth every night propranolol 34815091421 Piper Lani ESOMEPRAZOLE MAGNESIUM 20 MG CPDR Take 2 capsule by mouth every morning esomeprazole magnesium 91034891877 Piper Lani HYDROCODONE-ACET AMINOPHEN 5-325 MG TABS Take 1 tablet by mouth every six hours as needed hydrocodone-acet aminophen 71949698025 Piper Lani cubicin 500mg IV Q24hrs - INPAT cubicin Piper Lani TELMISARTAN-HCTZ 40-12.5 MG TABS Take 1 tablet by mouth every night telmisartan-hydr ochlorothiazid 36041733068 Piper Lani LORATADINE 10 MG CAPS Take 1 capsule by mouth once a day LORATADINE Piper Lani VITAMIN E 180 MG (400 UNIT) CAPS Take 1 capsule by mouth once a day vitamin e (dl, acetate) 12155377103 Piper Lani OXYCODONE-ACETAM INOPHEN 10-325 MG TABS Take 1 tablet by mouth every eight hours as needed oxycodone-acetam inophen 59387467692 Piper Lani Medications Administered No information available. Allergies, Adverse Reactions, Alerts No information available. 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 Procedures No information available. Vital Signs Date Name Value Unit Description [...] M Immunizations No information available. Advance Directives No information available.
[2024-01-20 10:05] VITALS: BP 154/95; PULSE 96; RESP 18; TEMP 36.8; O2SAT 97; BMI 36.6
--- NOTE | 2024-01-20 10:23 | EXP.UTC ---
Discharge Plan Disposition Patient Disposition: Home, Self-Care Condition: Good Prescriptions Prescriptions: New azithromycin [Zithromax] 250 mg tablet 250 mg PO UD DOSE PK Qty: 6 0RF Rx Instructions: Take two (2) tablets today, then one (1) tablet days #2 thru #5 benzonatate 100 mg capsule 100 mg PO TIDP PRN (Reason: Cough) Qty: 30 0RF methylprednisolone 4 mg Tablets,Dose Pack 4 mg PO DIRECTED 6 Days Qty: 21 0RF Rx Instructions: Take 1 pack as directed for 6 days No Action telmisartan-hydrochlorothiazid 40-12.5 tablet 1 tab PO DAILY buspirone 7.5 MG tablet 2 tab PO BID potassium chloride 10 mEq tablet extended release 20 meq PO DAILY Patient Comments: TAKE 2 TABLETS BY MOUTH ONCE DAILY levothyroxine 25 mcg tablet 25 mcg PO DAILY Patient Comments: TAKE 1 TABLET BY MOUTH ONCE DAILY propranolol 20 mg tablet 20 mg PO DAILY Patient Comments: TAKE 1 TABLET BY MOUTH AT BEDTIME anastrozole 1 mg tablet 1 mg PO DAILY Patient Comments: TAKE 1 TABLET BY MOUTH ONCE DAILY sertraline 25 mg tablet 25 mg PO DAILY Patient Comments: TAKE 1 TABLET BY MOUTH ONCE DAILY rosuvastatin 10 mg tablet 10 mg PO DAILY Patient Comments: TAKE 1 TABLET BY MOUTH ONCE DAILY desmopressin 0.2 mg tablet 0.2 mg PO DAILY Patient Comments: TAKE 1 TABLET BY MOUTH ONCE DAILY AT NIGHT methenamine hippurate 1 gram tablet See Rx Instructions .ROUTE .COMPLEX Patient Comments: TAKE 1 TABLET BY MOUTH TWICE DAILY WITH MEALS Rx Instructions: TAKE 1 TABLET BY MOUTH TWICE DAILY WITH MEALS Referrals Follow up/Referrals: Oralia Treadwell APRN [Primary Care Provider] - See instructions Activity Restrictions/Add. Instructions Additional Instructions/Restrictions: Drink plenty of fluids. Take tylenol or ibuprofen for pain or fever. Take the medications as directed. Follow up with your regular doctor. GO TO THE ER FOR ANY WORSENING SYMPTOMS Clinical Impressions Clinical Impression: Sinusitis Qualifiers: Sinusitis location: unspecified location Chronicity: unspecified Qualified Code(s): J32.9 - Chronic sinusitis, unspecified Instructions Patient Instructions: Sinusitis, DI for Sinusitis Discharge ED Provider: Herbie Womack [facility] General Stated complaint: sore throat soreness below ears on neck mucus Time Seen by Provider: 01/20/24 10:23 History of Present Illness Provider Complaint: She states that for the past 4 days she has had sore throat, ear pain, sinus congestion, and a cough. Related Data Home Medications Medication Instructions Recorded Confirmed buspirone 7.5 mg tablet 2 tab PO BID Anxiety 05/02/18 01/20/24 telmisartan 40 1 tab PO DAILY blood pressure 05/02/18 01/20/24 mg-hydrochlorothiazide 12.5 mg tablet levothyroxine 25 mcg tablet 25 mcg PO DAILY . 11/05/22 01/20/24 potassium chloride 10 mEq 20 meq PO DAILY . 11/05/22 11/05/22 tablet,extended release propranolol 20 mg tablet 20 mg PO DAILY . 11/05/22 01/20/24 anastrozole 1 mg tablet 1 mg PO DAILY 01/20/24 01/20/24 desmopressin 0.2 mg tablet 0.2 mg PO DAILY 01/20/24 01/20/24 methenamine hippurate 1 gram tablet See Rx Instructions .Route .COMPLEX 01/20/24 01/20/24 rosuvastatin 10 mg tablet 10 mg PO DAILY 01/20/24 01/20/24 sertraline 25 mg tablet 25 mg PO DAILY 01/20/24 01/20/24 Previous Rx's Medication Instructions Recorded azithromycin 250 mg tablet 250 mg PO UD DOSE PK #6 tabs 01/20/24 (Zithromax) benzonatate 100 mg capsule 100 mg PO TIDP PRN Cough #30 caps 01/20/24 methylprednisolone 4 mg tablets in 4 mg PO DIRECTED 6 days #21 tabs 01/20/24 a dose pack Allergies Allergy/AdvReac Type Severity Reaction Status Date / Time No Known Allergies Allergy Verified 01/20/24 10:26 [facility] Disclaimer: The information contained in this section may have been updated after the patient was seen, as this information can be updated by other users. Family History Other No significant family history Social History Smoking Status: Never smoker alcohol intake: never substance use type: denies use current occupational status: employed Travel in the last 8 weeks: None household members: spouse housing: house current occupational exposures/hazards: Yes caffeine: No ROS Obtained: Yes All systems reviewed & no additional complaints except as documented Constitutional Constitutional: Denies chills, Reports fever(s) and Reports poor appetite Eyes Eyes: Denies eye discharge ENT Ears, Nose, Mouth, and Throat: Denies ear discharge, Reports otalgia, Denies hearing loss, Denies sinus pain and Reports sore throat Cardiovascular Cardiovascular: Denies chest pain and Denies dyspnea Respiratory Respiratory: Denies chest congestion, Reports cough and Denies dyspnea Gastrointestinal Gastrointestingal: Denies abdominal pain, diarrhea, nausea or vomiting Musculoskeletal Musculoskeletal: Denies arthralgias Integumentary/Breasts Skin/Breast: Denies rash Physical Exam General General appearance: alert and in no apparent distress Head Head exam: atraumatic, normocephalic and normal inspection Eye Eye exam: Present normal appearance; Absent PERRL or EOMI ENT ENT exam: Present mucous membranes moist and normal external ear exam Expanded ENT Exam TM/Canal exam: Bilateral TM: erythema, bulging and effusion Nose exam: Absent sinus tenderness Nasal speculum exam: Bilateral: normal Mouth exam: Present normal external inspection and other; Absent drooling Teeth exam: Present normal inspection Throat exam: Present tonsillar erythema and tonsillomegaly Neck Neck exam: Present normal inspection, full ROM and trachea midline; Absent tenderness, meningismus or lymphadenopathy Chest Chest inspection: Present normal inspection and symmetric chest wall rise; Absent tenderness Respiratory Respiratory exam: Present normal lung sounds bilaterally; Absent respiratory distress, wheezes or stridor Cardiovascular Cardiovascular exam: Present regular rate, normal rhythm and normal heart sounds; Absent tachycardia or irregular rhythm Abdominal Exam Abdominal exam: Present soft and normal bowel sounds; Absent distention, tenderness, guarding, rebound or rigidity Extremities Exam Extremities exam: Present normal inspection and normal capillary refill; Absent tenderness, joint swelling or calf tenderness Back Exam Back exam: Present normal inspection and full ROM; Absent tenderness, CVA tenderness (R) or CVA tenderness (L) Neurological Exam Neurological exam: Present alert, oriented X3, CN II-XII intact, normal gait and reflexes normal; Absent motor sensory deficit Psychiatric Psychiatric exam: Present normal affect and normal mood Skin Skin exam: Present warm, dry, intact and normal color Lymphatic Lymphatic Findings: no adenopathy Medical Decision Making Medical Records Medical records reviewed: No I reviewed the patient's medical records. Jarred Inquiry Pt receiving controlled substance: No Lab Data Lab results reviewed: Yes I reviewed the patient's lab results.
[2024-01-20 10:30] VITALS: BP 154/95; PULSE 96; RESP 18; TEMP 36.8; O2SAT 97
== END 2024-01-20 10:30 | disposition home or self-care (01) ==
PROVIDERS: Emergency Provider Nurse Practitioner Family; PCP Nurse Practitioner Family
DX: J01.90 Acute sinusitis, unspecified (principal); H92.03 Otalgia, bilateral; R05.9 Cough, unspecified; R07.0 Pain in throat; R09.81 Nasal congestion
CPT/HCPCS: 99212; 99214; G0463

== ENCOUNTER 2024-02-29 16:39 | Outpatient (CLI) | payer BC, SELFPAY ==
--- OUTSIDE RECORDS SUMMARY | 2024-02-29 16:42 | XMS_ITS | Clinical Summary ---
Author Name Unknown Address [address] [place] [address] Phone Organization [facility] Address [address] [place] [address] Phone Care Team Providers Care Cleaner And Dyer Name Role Phone Aman Walls MD [phone] Conditions or Problems Problem Name Problem Code Onset Date Status Entry Date Provider Comment Standard Description Annotate Hx of malignant neoplasm of breast 811159180 (SNOMED CT) Active Floresita Fox History of malignant neoplasm of breast Personal history of antineoplastic chemotherapy 488728762 (SNOMED CT) Active Floresita Ruddy H/O: chemotherapy History of irradiation therapy Z92.3 (ICD-10-CM ) Active Floresita Ruddy Personal history of irradiation Cellulitis, chest wall 19189486 (SNOMED CT) Active Floresita Ruddy Cellulitis of chest wall Abscess, chest wall 53104827 (SNOMED CT) Active Floresita Ruddy Abscess of chest wall Infection, local skin/subcutaneo us tissue 301718616 (SNOMED CT) Active Floresita Ruddy Localized infection of skin AND/OR subcutaneous tissue History of bilateral mastectomy 575825625 (SNOMED CT) Active Floresita Ruddy History of right mastectomy Cellulitis of left breast N61.0 (ICD-10-CM ) Resolved Floresita Fox Mastitis without abscess Morbid obesity due to excess calories E66.01 (ICD-10-CM ) Active Floresita Fox Morbid (severe) obesity due to excess calories Javed's thyroiditis 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 (SNOMED CT) Active Floersita Fox Javed thyroiditis Benign Essential Hypertension 70476409 (SNOMED CT) Active Floresita Fox Benign hypertension Cellulitis of left breast N61.0 (ICD-10-CM ) Removed Ara Dyer Mastitis without abscess Medications Medication Instructions Start Date Stop Date Generic Name NDC Provider DOXYCYCLINE MONOHYDRATE 100 MG TABS Take 1 tablet by mouth twice a day doxycycline monohydrate 04482638176 Aman Walls MD BIOTIN 5000 MCG CAPS Take 1 capsule by mouth once a day biotin 64251961178 Piper Lani ceftriaxone recon soln 2GM IV Q24hrs - INPAT ceftriaxone recon soln Piper Lani FLUTICASONE PROPIONATE 50 MCG/ACT SUSP 2 spray into both nostrils once a day as directed fluticasone propionate 54615293049 Piper Lani BUSPIRONE HCL 15 MG TABS Take 1 tablet by mouth three times a day buspirone 50608549326 Piper Lani ROSUVASTATIN CALCIUM 10 MG TABS Take 1 tablet by mouth once a day rosuvastatin 86425668744 Piper Lani MULTI +DHA 27-0.8-250 MG CAPS Take 900 by mouth once a day vit 93-odfp-rzvne-dh a 86922810490 Piper Lani Misc Natural Products Take 1 tablet by mouth once a day OSTEO BI-FLEX ADV JOINT SHIELD PO Piper Lani VITAMIN B-12 1000 MCG TABS Take 1 tablet by mouth once a day cyanocobalamin (vitamin b-12) 62800110224 Piper Lani LEVOTHYROXINE SODIUM 50 MCG TABS Take 1 tablet by mouth once a day levothyroxine 12531681805 Piper Lani ANASTROZOLE 1 MG TABS Take 1 tablet by mouth once a day anastrozole 38153207591 Piper Lani PROPRANOLOL HCL 20 MG TABS Take 1 tablet by mouth every night propranolol 18278067541 Piper Lani ESOMEPRAZOLE MAGNESIUM 20 MG CPDR Take 2 capsule by mouth every morning esomeprazole magnesium 72200385697 Piper Lani HYDROCODONE-ACET AMINOPHEN 5-325 MG TABS Take 1 tablet by mouth every six hours as needed hydrocodone-acet aminophen 03175304454 Piper Lani cubicin 500mg IV Q24hrs - INPAT cubicin Piper Lani TELMISARTAN-HCTZ 40-12.5 MG TABS Take 1 tablet by mouth every night telmisartan-hydr ochlorothiazid 39061340341 Piper Lani LORATADINE 10 MG CAPS Take 1 capsule by mouth once a day LORATADINE Piper Lani VITAMIN E 180 MG (400 UNIT) CAPS Take 1 capsule by mouth once a day vitamin e (dl, acetate) 38893939987 Piper Lani OXYCODONE-ACETAM INOPHEN 10-325 MG TABS Take 1 tablet by mouth every eight hours as needed oxycodone-acetam inophen 45839592069 Piper Lani CEPHALEXIN 500 MG CAPS Take 1 capsule by mouth three times a day cephalexin 86641061185 Aman Walls MD DOXYCYCLINE MONOHYDRATE 100 MG CAPS Take 1 capsule by mouth twice a day doxycycline monohydrate 90277844614 Aman Walls MD VITAMIN E 180 MG (400 UNIT) CAPS Take 1 capsule by mouth Daily. vitamin e (dl, acetate) 97878684180 QIE qieuser VITAMIN B-12 1000 MCG TABS Take 1 tablet by mouth Daily. cyanocobalamin (vitamin b-12) 92698055259 QIE qieuser TELMISARTAN-HCTZ 40-12.5 MG TABS Take 1 tablet by mouth Every Evening. telmisartan-hydr ochlorothiazid 17053819001 QIE qieuser ROSUVASTATIN CALCIUM 10 MG TABS Take 1 tablet by mouth Daily. rosuvastatin 06824576871 QIE qieuser PROPRANOLOL HCL 20 MG TABS Take 1 tablet by mouth every night at bedtime. propranolol 27343010848 QIE qieuser MULTI +DHA 27-0.8-250 MG CAPS Take 900 doses by mouth Daily. vit 19-hsfu-eujtu-dh a 73728661302 QIE qieuser OXYCODONE-ACETAM INOPHEN 10-325 MG TABS Take 1 tablet by mouth Every 8 (Eight) Hours As Needed for Moderate Pain. oxycodone-acetam inophen 39115032432 QIE qieuser Misc Natural Products Take 1 tablet by mouth Daily. OSTEO BI-FLEX ADV JOINT SHIELD PO QIE qieuser LORATADINE 10 MG CAPS Take 1 capsule by mouth Daily. LORATADINE QIE qieuser LEVOTHYROXINE SODIUM 50 MCG TABS Take 1 tablet by mouth Daily. levothyroxine 57763198579 QIE qieuser HYDROCODONE-ACET AMINOPHEN 5-325 MG TABS Take 1 tablet by mouth Every 6 (Six) Hours As Needed. hydrocodone-acet aminophen 02104300499 QIE qieuser FLUTICASONE PROPIONATE 50 MCG/ACT SUSP 2 sprays into the nostril(s) as directed by provider Daily. fluticasone propionate 84361215954 QIE qieuser ESOMEPRAZOLE MAGNESIUM 20 MG CPDR Take 2 capsules by mouth Every Morning Before Breakfast. esomeprazole magnesium 07525247971 QIE qieuser BUSPIRONE HCL 15 MG TABS Take 1 tablet by mouth 2 (Two) Times a Day. 2nd time at bedtime. buspirone 77747795664 QIE qieuser SM BIOTIN 5000 MCG CAPS Take 1 capsule by mouth Daily. biotin 12327105504 QIE qieuser ANASTROZOLE 1 MG TABS Take 1 tablet by mouth Daily. anastrozole 22648701988 QIE qieuser cubicin 500mg IV Q24hrs - INPAT cubicin Chantale Alexandrea ceftriaxone recon soln 2GM IV Q24hrs - INPAT ceftriaxone recon soln Chantale [place] Medications Administered No information available. 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
--- OUTSIDE RECORDS SUMMARY | 2024-02-29 16:42 | XMS_ITS ---
Author Name Unknown Address [address] [place] [address] [place] [address] Phone Organization [facility] Address [address] [place] [address] Phone Care Team Providers Care Zoology Technical Officer Name Role Phone Angelo RUTHERFORD, Saul Pena [phone] Plan of Treatment No Plan of Treatment Recorded Assessments Includes: Assessments for all patient encounters No Assessments Recorded Medical Equipment - Implanted Devices Includes: Current and historical Devices No Medical Equipment Recorded Medications Administered Includes: Administered Medications in patient's chart No Administered Medications Recorded Results Includes: Results from 02/28/2023 through 02/29/2024 No Results Recorded For Specified Dates History of Present Illness History of Present Illness not supported for this document type No History of Present Illness Recorded Social History No Social History Recorded - Smoking Status Unknown Medical History Includes: Medical History in patient's chart No Medical History Recorded Family History Includes: Family History in patient's chart No Family History Recorded Review of Systems Review of Systems not supported for this document type No Review of Systems Recorded Mental Status No Mental Status Recorded Functional Status No Functional Status Recorded Physical Exam Physical Exam not supported for this document type No Physical Exam Recorded Insurance Includes: Active Insurance Policies Plan Name Member ID Group # Subscriber Relationship Effect diamond Dates 1 - [facility] [id number] Leydi Brown Self Clinical Notes Includes: Signed Clinical Notes starting from 09/14/2022 No Clinical Notes Recorded
--- OUTSIDE RECORDS SUMMARY | 2024-02-29 16:42 | XMS_ITS ---
Care Plan - [facility], [facility] Created on: February 29, 2024 Leydi Brown : 1975 Sex: Female Author Name Unknown Address [address] [place] [address] Phone Organization [facility] Address [address] [place] [address] Phone Care Team Providers Care Director Of Provider Relations Name Role Phone Saul Stephens PA-C [phone]
--- OUTSIDE RECORDS SUMMARY | 2024-02-29 16:42 | XMS_ITS ---
Author Name Unknown Address [address] [place] [address] Phone Organization [facility] Address [address] [place] [address] Phone Care Team Providers Care Underwear Cutter Name Role Phone Aman Walls MD Unavailable [phone] Conditions or Problems No information available. Medications Medication Instructions Start Date Stop Date Generic Name ND Provider DOXYCYCLINE MONOHYDRATE 100 MG TABS Take 1 tablet by mouth twice a day doxycycline monohydrate [id number] Aman Walls MD BIOTIN 5000 MCG CAPS Take 1 capsule by mouth once a day biotin 44664892897 Piper Lani ceftriaxone recon soln 2GM IV Q24hrs - INPAT ceftriaxone recon soln Ipper Lani FLUTICASONE PROPIONATE 50 MCG/ACT SUSP 2 spray into both nostrils once a day as directed fluticasone propionate 25868765837 Piper Lani BUSPIRONE HCL 15 MG TABS Take 1 tablet by mouth three times a day buspirone 91712054780 Piper Lani ROSUVASTATIN CALCIUM 10 MG TABS Take 1 tablet by mouth once a day rosuvastatin 36076400365 Piper Lani MULTI +DHA 27-0.8-250 MG CAPS Take 900 by mouth once a day vit 97-ubzt-xgmrt-dh a 73396973031 Piper Lani Misc Natural Products Take 1 tablet by mouth once a day OSTEO BI-FLEX ADV JOINT SHIELD PO Piper Lani VITAMIN B-12 1000 MCG TABS Take 1 tablet by mouth once a day cyanocobalamin (vitamin b-12) 09849777993 Piper Lani LEVOTHYROXINE SODIUM 50 MCG TABS Take 1 tablet by mouth once a day levothyroxine 98718304342 Piper Lani ANASTROZOLE 1 MG TABS Take 1 tablet by mouth once a day anastrozole 37107164836 Piper Lani PROPRANOLOL HCL 20 MG TABS Take 1 tablet by mouth every night propranolol 32242443666 Piper Lani ESOMEPRAZOLE MAGNESIUM 20 MG CPDR Take 2 capsule by mouth every morning esomeprazole magnesium 13862377757 Piper Lani HYDROCODONE-ACET AMINOPHEN 5-325 MG TABS Take 1 tablet by mouth every six hours as needed hydrocodone-acet aminophen 57886105395 Piper Lani cubicin 500mg IV Q24hrs - INPAT cubicin Piper Lani TELMISARTAN-HCTZ 40-12.5 MG TABS Take 1 tablet by mouth every night telmisartan-hydr ochlorothiazid 07049157564 Piper Lani LORATADINE 10 MG CAPS Take 1 capsule by mouth once a day LORATADINE Piper Lani VITAMIN E 180 MG (400 UNIT) CAPS Take 1 capsule by mouth once a day vitamin e (dl, acetate) 91497753552 Piper Lani OXYCODONE-ACETAM INOPHEN 10-325 MG TABS Take 1 tablet by mouth every eight hours as needed oxycodone-acetam inophen 51977138513 Piper Lani Medications Administered No information available. Allergies, Adverse Reactions, Alerts No information available. 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
--- OUTSIDE RECORDS SUMMARY | 2024-02-29 16:42 | XMS_ITS ---
Author Name Unknown Address [address] [place] [address] Phone Organization [facility] Address [address] [place] [address] Phone Care Team Providers Care Senior Business Objects Developer Name Role Phone Aman Walls MD [phone] Conditions or Problems No information available. Medications Medication Instructions Start Date Stop Date Generic Name NDC Provider CEPHALEXIN 500 MG CAPS Take 1 capsule by mouth three times a day 0 cephalexin [id number] Aman Walls MD DOXYCYCLINE MONOHYDRATE 100 MG CAPS Take 1 capsule by mouth twice a day 0 doxycycline monohydrate 71094254267 Aman Walls MD Medications Administered No information available. Allergies, Adverse Reactions, Alerts No information available. 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
--- OUTSIDE RECORDS SUMMARY | 2024-02-29 16:43 | XMS_ITS | Patient Health Record ---
Author Name Unknown Organization [facility] Address [address] [place] [address] Care Team Providers Care Tab Builder Name Role Phone Erika Awad Unavailable [phone] Liz Tiwari Unavailable [phone] Allergies No Known Allergies Results Component Value Reference Range Notes Ivana/Bacterial Vaginosis, HANK (Aptima) Reviewed date:09/19/2023 04:56:28 PM Interpretation:Negative Performing Lab:Ashia PETTY [facility] - NIKKIE CLIA ID [id number], [address], [address], [place] [address], Director - Ana Hatch MD Notes/Report: Bacterial Vaginosis Negative Negative The Aptima BV assay is a real time NAAT TMA assay developed for use on the automated [place] system that detects and discriminates RNA markers from the Lactobacillus species group (L. gasseri, L. crispatus and L. jensenii), Gardnerella vaginalis, and Atopobium vaginae. The Aptima BV assay uses an algorithm for bacterial vaginosis based on detection of target organisms. Ivana species Negative Negative The CV Assay is a real time TMA assay developed for use on the automated [place] system that detects following Ivana species organisms (C. albicans, C. tropicalis, C. parapsilosis, C. dubliniensis), but the assay does not differentiate among C spp. Ivana glabrata Negative Negative Urine Dip Reviewed date:09/18/2023 09:03:51 AM Interpretation: Performing Lab: Notes/Report: Glucose galen Bilirubin neg Ketones neg Specific [place] 1.010 Blood neg pH 5.5 Protein neg Urobilinogen norm Nitrite neg Leukocytes neg ECG 12-LEAD Reviewed date:03/23/2023 10:17:59 AM Interpretation:Preop EKG Performing Lab: Notes/Report: Test Reason : HTN Blood Pressure : */* mmHG Vent. Rate : 80 BPM Atrial Rate : 80 BPM P-R Int : 144 ms QRS Dur : 78 ms QT Int : 390 ms P-R-T Axes : -2 3 6 degrees QTc Int : 449 ms Normal sinus rhythm Normal ECG When compared with ECG of 09-JUN-2022 12:27, No significant change was found Confirmed by JAZMIN MARKS MD ([id number]) on 03/22/2023 3:00:30 PM Referred By: MARIA LUISA Confirmed By: JAZMIN MARKS MD Table formatting from the original result was not included. Images from the original result were not included. Results ECG 12 Lead (Order [id number]) Order Questions Question Answer Reason for Exam Pre-Op / Pre-Procedure ECG 12 Lead Order: [id number] Status: Final result Visible to patient: No (scheduled for 03/22/2023 4:25 PM) Next appt: None 0 Result Notes Component Ref Range & Units 03/07/23 1:14 PM 06/09/22 12:27 PM QT Interval ms 390 400 QTC Interval ms 449 434 Narrative & Impression Test Reason : HTN Blood Pressure : */* mmHG Vent. Rate : 80 BPM Atrial Rate : 80 BPM P-R Int : 144 ms QRS Dur : 78 ms QT Int : 390 ms P-R-T Axes : -2 3 6 degrees QTc Int : 449 ms Normal sinus rhythm Normal ECG When compared with ECG of 09-JUN-2022 12:27, No significant change was found Confirmed by JAZMIN MARKS MD ([id number]) on 03/22/2023 3:00:30 PM Referred By: MARIA LUISA Confirmed By: JAZMIN MARKS MD Specimen Collected: 03/07/23 1:14 PM EDT Last Resulted: 03/22/23 3:00 PM EDT Result Care Coordination Patient Communication 03/22/2023 4:25 PM Not seen Back to Top Signed at 1500 EDT Order History Outpatient Date/Time Action Taken User Additional Information 03/07/23 1309 Release Bronwyn Chery RN From Order: [id number] 03/07/23 1315 Result Interface, Ekg Results In Preliminary 03/07/23 1328 Result Interface, Ekg Results In Preliminary 03/22/23 1500 Result Interface, Ekg Results In Final ED Provider Notes ECG for patients with no ECG performed within the last 6 months and One of the following risk facors: CAD, Arrhythmia, Valvular Heart Disease, PVD, CVD, CHF, or the inability to achieve 4 METS, OR two of the following risk factors: COPD, BRYAN, IDDM, CKD, BMI >35, OR a patient having one of the following surgeries: Cardiac, major vascular, open intraperitoneal, all intrathoracic procedures, intracranial and multilevel spine surgery TISSUE PATHOLOGY EXAM Reviewed date:03/19/2023 12:03:01 PM Interpretation:Benign uterus, cervix and tubes Performing Lab: Notes/Report: LAB AP CASE REPORT Surgical Pathology Report Case: [id number] LAB AP CASE REPORT Authorizing Provider : Erika Awad MD Collected: 03/15/2023 02:00 PM LAB AP CASE REPORT Ordering Location: [facility] Received: 03/16/2023 06:37 AM LAB AP CASE REPORT OR LAB AP CASE REPORT Pathologist: Jordan Esqueda MD LAB AP CASE REPORT Specimen: Uterus wit h Cervix, Bilateral Tubes and Ovaries LAB AP CLINICAL INFORMATION Fibroids LAB AP FINAL DIAGNOSIS UTERUS, CERVIX, BILATERAL OVARIES AND FALLOPIAN TUBES, HYSTERECTOMY WITH BILATERAL SALPINGO-OOPHORECTOMY: LAB AP FINAL DIAGNOSIS Benign cervix wit h mild chronic cervicitis LAB AP FINAL DIAGNOSIS Denuded endometri al lining suggestive of prior ablation therapy LAB AP FINAL DIAGNOSIS Benign leiomyomata LAB AP FINAL DIAGNOSIS Benign bilateral ovaries LAB AP FINAL DIAGNOSIS Benign bilateral fimbriated fallopian tubes LAB AP FINAL DIAGNOSIS Negative for dysp lasia or malignancy LAB AP FINAL DIAGNOSIS Electronically si gned by Jordan Esqueda MD on 03/19/2023 at 11:41 AM [facility] LAB AP GROSS DESCRIPTION 1. Uterus with Cervix, Bilateral Tubes and Ovaries. [facility] LAB AP GROSS DESCRIPTION Received in formalin labeled uterus with cervix, bilateral tubes and ovaries is a 12 cm superior to inferior, 6.5 cm cornu to cornu, 7 cm anterior to posterior, 199.4 g nodular simple hysterectomy with surgical disruption along the anterior aspect. Bilateral attached fallopian tubes and ovaries are present. Also received freely floating in the container is a previously incised 8.5 x 7 x 6.5 cm, 277.8 g marr, nodular mass. The serosa is smooth and marr. The marr, glistening ectocervix is 3.5 x 3 cm and the slitlike os is 0.5 x 0.1 cm. The endocervix is marr and corrugated. The triangular endometrial cavity is 4.5 cm in length with a cornu to cornu width of 2 cm. The endometrium is soft and red. No masses or polyps are grossly identified. The endometrial thickness averages 0.1 cm and the myometrial thickness averages 2 cm. The myometrium is firm and marr. At least 1 intramural marr nodule is present within the fundus up to 2.5 cm in greatest dimension. Sectioning of the fundic [facility] LAB AP GROSS DESCRIPTION and free-floating masses reveals whorled cut surfaces. The bilateral marr, cerebriform ovaries average 2.5 x 1.8 x 1.5 cm. Sectioning of both ovaries reveals unremarkable cut surfaces. The bilateral fimbriated fallopian tubes average 3.5 cm in length by 0.6 cm in diameter. Sectioning of both tubes reveals a grossly unremarkable lumen. Slat Pickler sections are submitted as follows: 1A-anterior cervix; 1B-posterior cervix; 1C-anterior endomyometrium; 1D-posterior endomyometrium; 6L-8S-mhuxam and free-floating masses; 1J-right ovary; 1K-left ovary; 1L-right fallopian tube and fimbria; 1M-left fallopian tube and fimbria. [facility] LAB AP MICROSCOPIC DESCRIPTION The slides are reviewed and demonstrate histopathologic features supporting the above rendered diagnosis. Lab specimens received at a [facility].?See result details for the performing location information. URINALYSIS W/ CULTURE IF IND ICATED Reviewed date:03/08/2023 11:47:37 AM Interpretation:Negative Performing Lab: Notes/Report: In absence of clinical symptoms, the presence of pyuria, bacteria, and/or nitrites on the urinalysis result does not correlate with infection. Urine microscopic not indicated. COLOR OF URINE Yellow Yellow, St CLARITY OF URINE Clear Clear PH OF URINE BY AUTOMATED TEST STRIP 5.5 5.0-8.0 SPECIFIC GRAVITY OF URINE BY AUTOMATED TEST STRIP 1.018 1.001-1.03 GLUCOSE IN URINE BY AUTOMATED TEST STRIP Negative Negative KETONES IN URINE BY AUTOMATED TEST STRIP Negative Negative BILIRUBIN, TOTAL IN URINE BY AUTOMATED TEST STRIP Negative Negative HEMOGLOBIN IN URINE BY AUTOMATED TEST STRIP Negative Negative PROTEIN IN URINE BY AUTOMATED TEST STRIP Negative Negative LEUKOCYTE ESTERASE IN URINE BY AUTOMATED TEST STRIP Negative Negative NITRITE IN URINE BY AUTOMATED TEST STRIP Negative Negative UROBILINOGEN IN URINE BY AUTOMATED TEST STRIP 0.2 E.U./dL 0.2 - 1.0 Lab specimens re ceived at a [facility].?See result details for the performing location information. *US Pelvis Complete Transabd ominal/Vaginal (Non-OB) Reviewed date:09/19/2023 03:15:15 PM Interpretation: Performing Lab: Notes/Report: [facility] Transvaginal Pelvic Study Report Name: AUGUSTINE BROWN Accession/Encounter No:[id number] : 1975 Age: 48 Gender: F Study Date: Sep 18, 2023 Study Time: 08:36 AM Reading Group: Erika Awad MD Referring Group: Liz Tiwari DO Ordering Phys: Liz Tiwari DO Director Strategy: Claudia Cummins RDMS Equipment: Affiniti 30 Study Quality: Good Indications: Pelvic pain and pressure A complete pelvic transvaginal ultrasound was performed. Findings: A transvaginal exam was performed. The uterus is surgically absent. The right ovary is surgically absent. The left ovary is surgically absent. Conclusions: The uterus is surgically absent. Vaginal cuff appears WNL. Right ovary surgically absent. Left ovary surgically absent. No free fluid or adnexal masses noted. Approved By: Erika Awad MD Approved at: September 18, 2023 07:46 PM EST Electronically Signed on [employer] 2023-09-18 Page 1 of 1 Imaging Center - , [facility] Reviewed date:09/21/2023 01:59:56 PM Interpretation:sensitive to macrobid Performing Lab: Notes/Report: Ampicillin Susc Islt <=2 Ampicillin+Sulbac Susc Islt <=2 ceFAZolin Susc Islt <=4 Cefepime Susc Islt <=1 cefTAZidime Susc Islt <=1 cefTRIAXone Susc Islt <=1 Gentamicin Susc Islt <=1 levoFLOXacin Susc Islt <=0.12 Nitrofurantoin Susc Islt <=16 Pip+Tazo Susc Islt <=4 TMP SMX Susc Islt <=20 Lab specim ens received at a [facility].?See result details for the performing location information. Ampicillin Susc Islt >=32 Ampicillin+Sulbac Susc Islt >=32 ceFAZolin Susc Islt >=64 Cefepime Susc Islt <=1 cefTAZidime Susc Islt 16 cefTRIAXone Susc Islt 16 Gentamicin Susc Islt <=1 levoFLOXacin Susc Islt <=0.12 Nitrofurantoin Susc Islt <=16 Pip+Tazo Susc Islt <=4 TMP SMX Susc Islt <=20 Lab specim ens received at a [facility].?See result details for the performing location information. URINE CULTURE Reviewed date:09/21/2023 02:01:48 PM Interpretation:Kenia Performing Lab: Notes/Report: Colonization of the urinary tract without infection is common. Treatment is discouraged unless the patient is symptomatic, , or undergoing an invasive urologic procedure. URINE CULTURE 202 ESCHERICHIA COLI 50,000 CFU/mL Escherichia coli 50,000 CFU/mL Escherichia coli Strain #2 URINE CULTURE 202 ESCHERICHIA COLI 50,000 CFU/mL Escherichia coli 50,000 CFU/mL Escherichia coli Strain #2 Reason For Referral No Information Medications Medication SIG (Take, Route, Frequency, Duration) Notes Start Date End Date Status Levothyroxine Sodium Active NexIUM Active Potassium Chloride ER 10 MEQ Oral for 30 Days Active Propranolol HCl Acti ve Anastrozole Active Claritin Active Dexlansoprazole 60 MG TAKE 1 CAPSULE BY MOUTH ONCE DAILY Oral for 90 Days Active Macrobid 100 MG 1 capsule with food Orally every 12 hrs for 7 days 09/21/2023 Active Flonase Active Silver sulfADIAZINE 1 % MIX IN EQUAL PAR TS WITH VISCOUS LIDOCAINE AND APPLY TO AFFECTED AREA EVERY 3-4 HOURS DAILY NEEDED External for 25 Days Active Telmisartan-HCTZ 40-12.5 MG TAKE 1 TABLE T BY MOUTH ONCE DAILY Oral for 90 Days Active Michelle Active Social History Tobacco Use: Social History Observation Description Date Details (start date - stop date) Never Smoker NA - NA Sex Assigned At : Social History Observation Description Sex Assigned At Female Tobacco Use/Smoking Question Answer Notes Are you a nonsmoker Alcohol Screen Question Answer Notes Did you have a drink containing alcohol in the p ast year? No Points 0 Interpretation Negative Problems Problem Type SNOMED Code ICD Code Onset Dates Problem Status W/U Status Risk Notes Problem Personal history of primary malignant neoplasm of breast (471504874) Personal history of malignant neoplasm of breast (Z85.3) Active confirmed Problem Fibroid (8941709977) Fibroid (D21.9) Active confirmed Vital Signs Heart Rate 85 /min 03/07/2023 Oximetry 97 % 03/07/2023 Blood pressure diastolic 80 mm Hg 09/18/2023 Height 61 in 09/18/2023 Blood pressure systolic 114 mm Hg 09/18/2023 Weight 202.2 lbs 09/18/2023 BMI 38.2 kg/m2 09/18/2023 Encounters Encounter Location Date Provider Diagnosis [facility] [address] [place] [address] 03/15/2023 Erika Awad [facility] [address] [place] [address] 09/18/2023 Liz Karie Pelvic pain R10.2 [facility] [address] [place] [address] 03/07/2023 Erika Awad Personal history of malignant neoplasm of breast Z85.3 and Fibroid D21.9 [facility] [address] [place] [address] 04/11/2023 Erika Awad Postop check Z09 [facility] [address] [place] [address] 09/18/2023 Liz Karie Pelvic pain R10.2 [facility] [address] [place] [address] 03/21/2023 Erika Awad [facility] [address] [place] [address] 04/11/2023 Erika Awad [facility] [address] [place] [address] 09/17/2023 Erika Awad [facility] [address] [place] [address] 09/17/2023 Liz Gordon [facility] [address] [place] [address] 09/21/2023 Liz Gordon Assessments Encounter Date Diagnosis (ICD Code) Assessment Notes Treatment Notes Treatment Clinical Notes 03/07/2023 Personal history of malignant neoplasm of breast (ICD-10 - Z85.3) 03/07/2023 Fibroid (ICD-10 - D21.9) 04/11/2023 Postop check (ICD-10 - Z09) Normal postoperative visit. Operative report is reviewed. She may increase physical activities, precautions are reviewed. A postoperative letter will be sent to her primary care provider. 09/18/2023 Pelvic pain (ICD-10 - R10.2) 09/18/2023 Pelvic pain (ICD-10 - R10.2) -New onset pelvic pain -Discussed etiologies including refuse and recycling worker, GI, MSK -S/p hysterectomy procedure 6 months -TVUS reviewed without 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, discussed with patient -Vaginitis swab collected -Urine culture sent today -Melchor follow up with results and treat as indicated -Advised on ibuprofen and tylenol for pain. -Discussed stool softener and simethicone for GI contribution to symptoms -Follow also with PCP for other etiology -Follow up in 4 weeks for review of symptoms 03/07/2023 Other Patient's diag nosis and treatment options were again reviewed, including lesser invasive options. The risks, benefits, and likely outcomes of each were reviewed. The patient confirms her desire to proceed with TRH with BSO. The procedure was again defined as robotic removal of uterus, cervix, fallopian tubes, and ovaries. Recognized risks of this procedure are those of any laparoscopic surgical procedure including anesthesia, bleeding, infection, damage to bowel or bladder and neurologic damage. Specific risks of this procedure were also reviewed including ureteral damage, DVT and its sequelae, vaginal cuff hematoma or infection, wound dehiscence, ovarian remnants, as well as the general management of these complications. She was informed of the possible need to convert the laparoscopic procedure to an open procedure after the induction of anesthesia. Possible indications for post operative ERT and its risks and benefits were reviewed. She was also advised that bleeding, bowel injury, bladder injury or ureteral injury may not be obvious at the time of surgery and that she would need to be vigilant to call my office [facility] with any increasing abdominopelvic pain or any fever in the two weeks following surgery. All the patient's questions were answered, and she was advised to call with any other questions that she may have prior to the operation. Plan Of Treatment No Information Insurance Providers Payer Name Payer Address Payer Phone Subscriber Number Group Number Insured Name Patient Relationship to Insured Coverage Start Date Coverage End Date Jose PPO [address] [place] [address] [phone] [id number] JohanpaAugustine he Self - patient is the insured Medical (General) History Medical History History ICD Code breast cancer hypertension thyroid disorder anxiety acid reflux migraine lympedema seasonal allergies Surgical History Surgery Date(Month/Year) tonsillectomy bilateral mastectomy C/S x 2 Cholecystectomy uterine ablation TRH with BSO Hospitalization History Reason Date(Month/Year) surgery
--- OUTSIDE RECORDS SUMMARY | 2024-02-29 16:43 | XMS_ITS ---
Author Name Unknown Address [address] [place] [address] Phone Organization [facility] Address [address] [place] [address] Phone Care Team Providers Care Lease Broker Name Role Phone Piper Garibay Unavailable Unavailable Conditions or Problems No information available. Medications Medication Instructions Start Date Stop Date Generic Name NDC Provider VITAMIN E 180 MG (400 UNIT) CAPS Take 1 capsule by mouth Daily. vitamin e (dl, acetate) 38504046788 QIE qieuser VITAMIN B-12 1000 MCG TABS Take 1 tablet by mouth Daily. cyanocobalamin (vitamin b-12) 78742842772 QIE qieuser TELMISARTAN-HCTZ 40-12.5 MG TABS Take 1 tablet by mouth Every Evening. telmisartan-hydro chlorothiazid 46687128562 QIE qieuser ROSUVASTATIN CALCIUM 10 MG TABS Take 1 tablet by mouth Daily. rosuvastatin 47119745864 QIE qieuser PROPRANOLOL HCL 20 MG TABS Take 1 tablet by mouth every night at bedtime. propranolol 59904049666 QIE qieuser MULTI +DHA 27-0.8-250 MG CAPS Take 900 doses by mouth Daily. vit 24-rzyd-uhgzw-dha 49051101979 QIE qieuser OXYCODONE-ACETAM INOPHEN 10-325 MG TABS Take 1 tablet by mouth Every 8 (Eight) Hours As Needed for Moderate Pain. oxycodone-acetami nophen 15797570437 QIE qieuser Misc Natural Products Take 1 tablet by mouth Daily. OSTEO BI-FLEX ADV JOINT SHIELD PO QIE qieuser LORATADINE 10 MG CAPS Take 1 capsule by mouth Daily. LORATADINE QIE qieuser LEVOTHYROXINE SODIUM 50 MCG TABS Take 1 tablet by mouth Daily. levothyroxine 09912733244 QIE qieuser HYDROCODONE-ACET AMINOPHEN 5-325 MG TABS Take 1 tablet by mouth Every 6 (Six) Hours As Needed. hydrocodone-aceta minophen 06714752432 QIE qieuser FLUTICASONE PROPIONATE 50 MCG/ACT SUSP 2 sprays into the nostril(s) as directed by provider Daily. fluticasone propionate 84851333037 QIE qieuser ESOMEPRAZOLE MAGNESIUM 20 MG CPDR Take 2 capsules by mouth Every Morning Before Breakfast. esomeprazole magnesium 90625814123 QIE qieuser BUSPIRONE HCL 15 MG TABS Take 1 tablet by mouth 2 (Two) Times a Day. 2nd time at bedtime. buspirone 39801220672 QIE qieuser SM BIOTIN 5000 MCG CAPS Take 1 capsule by mouth Daily. biotin 62938130024 QIE qieuser ANASTROZOLE 1 MG TABS Take 1 tablet by mouth Daily. anastrozole 01721200987 QIE qieuser Medications Administered No information available. Allergies, Adverse Reactions, Alerts No information available. Results No information available. Plan of Care No information available. Procedures No information available. Vital Signs No information available. Immunizations No information available. Advance Directives No information available.
[2024-02-29 17:11] LABS: Anion Gap 14.5 mEq/L (5-15); Blood Urea Nitrogen 18 mg/dl (7-17); Calcium 9.7 mg/dl (8.4-10.2); Carbon Dioxide 28 mmol/L (22.0-30.0); Chloride 100 mmol/L (98-107); Estimated Glomerular Filt Rate 76 ml/min (>60); GFR (African American) 92 ML/MIN (>60); Glucose 140 mg/dl (74-100); Potassium 3.5 mmoL/L (3.5-5.1); Sodium 139 mmol/L (136-145)
== END 2024-02-29 23:59 | disposition home or self-care (01) ==
LOC: LAB 16:40
PROVIDERS: PCP Nurse Practitioner Family; Visit Provider Physician Assistant
DX: R35.1 Nocturia (principal)
CPT/HCPCS: 36415; 80048

== ENCOUNTER 2024-03-08 08:21 | Outpatient (CLI) | payer BC, SELFPAY ==
--- OUTSIDE RECORDS SUMMARY | 2024-03-08 08:24 | XMS_ITS | Clinical Summary ---
Author Name Unknown Address [address] [place] [address] Phone Organization [facility] Address [address] [place] [address] Phone Care Team Providers Care Inlayer Name Role Phone Aman Walls MD [phone] Conditions or Problems Problem Name Problem Code Onset Date Status Entry Date Provider Comment Standard Description Annotate Hx of malignant neoplasm of breast 981536342 (SNOMED CT) Active Floresita Fox History of malignant neoplasm of breast Personal history of antineoplastic chemotherapy 282614613 (SNOMED CT) Active Floresita Ruddy H/O: chemotherapy History of irradiation therapy Z92.3 (ICD-10-CM ) Active Floresita Ruddy Personal history of irradiation Cellulitis, chest wall 91989240 (SNOMED CT) Active Floresita Ruddy Cellulitis of chest wall Abscess, chest wall 27886768 (SNOMED CT) Active Floresita Ruddy Abscess of chest wall Infection, local skin/subcutaneo us tissue 260551558 (SNOMED CT) Active Floresita Ruddy Localized infection of skin AND/OR subcutaneous tissue History of bilateral mastectomy 745257131 (SNOMED CT) Active Floresita Ruddy History of right mastectomy Cellulitis of left breast N61.0 (ICD-10-CM ) Resolved Floresita Fox Mastitis without abscess Morbid obesity due to excess calories E66.01 (ICD-10-CM ) Active Floresita Fox Morbid (severe) obesity due to excess calories Javed's thyroiditis 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 (SNOMED CT) Active Floresita Fox Javed thyroiditis Benign Essential Hypertension 45352754 (SNOMED CT) Active Floresita Fox Benign hypertension Cellulitis of left breast N61.0 (ICD-10-CM ) Removed Ara Dyer Mastitis without abscess Medications Medication Instructions Start Date Stop Date Generic Name NDC Provider DOXYCYCLINE MONOHYDRATE 100 MG TABS Take 1 tablet by mouth twice a day doxycycline monohydrate 85876436894 Aman Walls MD BIOTIN 5000 MCG CAPS Take 1 capsule by mouth once a day biotin 65182606638 Piper Lani ceftriaxone recon soln 2GM IV Q24hrs - INPAT ceftriaxone recon soln Piper Lani FLUTICASONE PROPIONATE 50 MCG/ACT SUSP 2 spray into both nostrils once a day as directed fluticasone propionate 67646743556 Piper Lani BUSPIRONE HCL 15 MG TABS Take 1 tablet by mouth three times a day buspirone 97183865721 Piper Lani ROSUVASTATIN CALCIUM 10 MG TABS Take 1 tablet by mouth once a day rosuvastatin 27049079285 Piper Lani MULTI +DHA 27-0.8-250 MG CAPS Take 900 by mouth once a day vit 89-ecrz-ebtlo-dh a 91889632252 Piper Lani Misc Natural Products Take 1 tablet by mouth once a day OSTEO BI-FLEX ADV JOINT SHIELD PO Piper Lani VITAMIN B-12 1000 MCG TABS Take 1 tablet by mouth once a day cyanocobalamin (vitamin b-12) 55723742208 Piper Lani LEVOTHYROXINE SODIUM 50 MCG TABS Take 1 tablet by mouth once a day levothyroxine 28576760115 Piper Lani ANASTROZOLE 1 MG TABS Take 1 tablet by mouth once a day anastrozole 34935418110 Piper Lani PROPRANOLOL HCL 20 MG TABS Take 1 tablet by mouth every night propranolol 88097702795 Piper Lani ESOMEPRAZOLE MAGNESIUM 20 MG CPDR Take 2 capsule by mouth every morning esomeprazole magnesium 91748945029 Piper Lani HYDROCODONE-ACET AMINOPHEN 5-325 MG TABS Take 1 tablet by mouth every six hours as needed hydrocodone-acet aminophen 65560035662 Piper Lani cubicin 500mg IV Q24hrs - INPAT cubicin Piper Lani TELMISARTAN-HCTZ 40-12.5 MG TABS Take 1 tablet by mouth every night telmisartan-hydr ochlorothiazid 07407417692 Piper Lani LORATADINE 10 MG CAPS Take 1 capsule by mouth once a day LORATADINE Piper Lani VITAMIN E 180 MG (400 UNIT) CAPS Take 1 capsule by mouth once a day vitamin e (dl, acetate) 07519988424 Piper Lani OXYCODONE-ACETAM INOPHEN 10-325 MG TABS Take 1 tablet by mouth every eight hours as needed oxycodone-acetam inophen 23746486349 Piper Lani CEPHALEXIN 500 MG CAPS Take 1 capsule by mouth three times a day cephalexin 26169254911 Aman Walls MD DOXYCYCLINE MONOHYDRATE 100 MG CAPS Take 1 capsule by mouth twice a day doxycycline monohydrate 79735170163 Aman Walls MD VITAMIN E 180 MG (400 UNIT) CAPS Take 1 capsule by mouth Daily. vitamin e (dl, acetate) 85160143625 QIE qieuser VITAMIN B-12 1000 MCG TABS Take 1 tablet by mouth Daily. cyanocobalamin (vitamin b-12) 41624923803 QIE qieuser TELMISARTAN-HCTZ 40-12.5 MG TABS Take 1 tablet by mouth Every Evening. telmisartan-hydr ochlorothiazid 76500049861 QIE qieuser ROSUVASTATIN CALCIUM 10 MG TABS Take 1 tablet by mouth Daily. rosuvastatin 70671336896 QIE qieuser PROPRANOLOL HCL 20 MG TABS Take 1 tablet by mouth every night at bedtime. propranolol 41415682395 QIE qieuser MULTI +DHA 27-0.8-250 MG CAPS Take 900 doses by mouth Daily. vit 97-xxwm-malsf-dh a 41025419777 QIE qieuser OXYCODONE-ACETAM INOPHEN 10-325 MG TABS Take 1 tablet by mouth Every 8 (Eight) Hours As Needed for Moderate Pain. oxycodone-acetam inophen 05754005624 QIE qieuser Misc Natural Products Take 1 tablet by mouth Daily. OSTEO BI-FLEX ADV JOINT SHIELD PO QIE qieuser LORATADINE 10 MG CAPS Take 1 capsule by mouth Daily. LORATADINE QIE qieuser LEVOTHYROXINE SODIUM 50 MCG TABS Take 1 tablet by mouth Daily. levothyroxine 94548951260 QIE qieuser HYDROCODONE-ACET AMINOPHEN 5-325 MG TABS Take 1 tablet by mouth Every 6 (Six) Hours As Needed. hydrocodone-acet aminophen 45324613576 QIE qieuser FLUTICASONE PROPIONATE 50 MCG/ACT SUSP 2 sprays into the nostril(s) as directed by provider Daily. fluticasone propionate 52240642048 QIE qieuser ESOMEPRAZOLE MAGNESIUM 20 MG CPDR Take 2 capsules by mouth Every Morning Before Breakfast. esomeprazole magnesium 07876054521 QIE qieuser BUSPIRONE HCL 15 MG TABS Take 1 tablet by mouth 2 (Two) Times a Day. 2nd time at bedtime. buspirone 59854888557 QIE qieuser SM BIOTIN 5000 MCG CAPS Take 1 capsule by mouth Daily. biotin 29458796615 QIE qieuser ANASTROZOLE 1 MG TABS Take 1 tablet by mouth Daily. anastrozole 03361967178 QIE qieuser cubicin 500mg IV Q24hrs - INPAT cubicin Chantale Alexandrea ceftriaxone recon soln 2GM IV Q24hrs - INPAT ceftriaxone recon soln Chantale Asotin Medications Administered No information available. 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
--- OUTSIDE RECORDS SUMMARY | 2024-03-08 08:24 | XMS_ITS ---
Author Name Unknown Address [address] [place] [address] Phone Organization [facility] Address [address] [place] [address] Phone Care Team Providers Care Pier Master Assistant Name Role Phone Piper Garibay Unavailable Unavailable Conditions or Problems No information available. Medications Medication Instructions Start Date Stop Date Generic Name NDC Provider VITAMIN E 180 MG (400 UNIT) CAPS Take 1 capsule by mouth Daily. vitamin e (dl, acetate) 80829770267 QIE qieuser VITAMIN B-12 1000 MCG TABS Take 1 tablet by mouth Daily. cyanocobalamin (vitamin b-12) 58969164699 QIE qieuser TELMISARTAN-HCTZ 40-12.5 MG TABS Take 1 tablet by mouth Every Evening. telmisartan-hydro chlorothiazid 54622746596 QIE qieuser ROSUVASTATIN CALCIUM 10 MG TABS Take 1 tablet by mouth Daily. rosuvastatin 87290147291 QIE qieuser PROPRANOLOL HCL 20 MG TABS Take 1 tablet by mouth every night at bedtime. propranolol 48203698744 QIE qieuser MULTI +DHA 27-0.8-250 MG CAPS Take 900 doses by mouth Daily. vit 48-yots-ewcfn-dha 76978173749 QIE qieuser OXYCODONE-ACETAM INOPHEN 10-325 MG TABS Take 1 tablet by mouth Every 8 (Eight) Hours As Needed for Moderate Pain. oxycodone-acetami nophen 64283094948 QIE qieuser Misc Natural Products Take 1 tablet by mouth Daily. OSTEO BI-FLEX ADV JOINT SHIELD PO QIE qieuser LORATADINE 10 MG CAPS Take 1 capsule by mouth Daily. LORATADINE QIE qieuser LEVOTHYROXINE SODIUM 50 MCG TABS Take 1 tablet by mouth Daily. levothyroxine 94899674609 QIE qieuser HYDROCODONE-ACET AMINOPHEN 5-325 MG TABS Take 1 tablet by mouth Every 6 (Six) Hours As Needed. hydrocodone-aceta minophen 22410652361 QIE qieuser FLUTICASONE PROPIONATE 50 MCG/ACT SUSP 2 sprays into the nostril(s) as directed by provider Daily. fluticasone propionate 86476094146 QIE qieuser ESOMEPRAZOLE MAGNESIUM 20 MG CPDR Take 2 capsules by mouth Every Morning Before Breakfast. esomeprazole magnesium 99438649470 QIE qieuser BUSPIRONE HCL 15 MG TABS Take 1 tablet by mouth 2 (Two) Times a Day. 2nd time at bedtime. buspirone 96478430620 QIE qieuser SM BIOTIN 5000 MCG CAPS Take 1 capsule by mouth Daily. biotin 74491892877 QIE qieuser ANASTROZOLE 1 MG TABS Take 1 tablet by mouth Daily. anastrozole 70448050049 QIE qieuser Medications Administered No information available. Allergies, Adverse Reactions, Alerts No information available. Results No information available. Plan of Care No information available. Procedures No information available. Vital Signs No information available. Immunizations No information available. Advance Directives No information available.
--- OUTSIDE RECORDS SUMMARY | 2024-03-08 08:24 | XMS_ITS ---
Author Name Unknown Address [address] [place] [address] [place] [address] Phone Organization [facility] Address [address] [place] [address] Phone Care Team Providers Care Wire Strander Name Role Phone Angelo RUTHERFORD, Saul Pena [phone] Plan of Treatment No Plan of Treatment Recorded Assessments Includes: Assessments for all patient encounters No Assessments Recorded Medical Equipment - Implanted Devices Includes: Current and historical Devices No Medical Equipment Recorded Medications Administered Includes: Administered Medications in patient's chart No Administered Medications Recorded Results Includes: Results from 03/08/2023 through 03/08/2024 No Results Recorded For Specified Dates History [...] Subscriber Relationship Effect diamond Dates 1 - [facility] [id number] Leydi Brown Self Clinical Notes Includes: Signed Clinical Notes starting from 09/14/2022 No Clinical Notes Recorded
--- OUTSIDE RECORDS SUMMARY | 2024-03-08 08:24 | XMS_ITS ---
Care Plan - [facility], [facility] Created on: March 08, 2024 Leydi Brown : 1975 Sex: Female Author Name Unknown Address [address] [place] [address] Phone Organization [facility] , [facility] Address [address] [place] [address] Phone Care Team Providers Care Lead Nitrate Processor Name Role Phone Saul Stpehens PA-C [phone]
--- OUTSIDE RECORDS SUMMARY | 2024-03-08 08:24 | XMS_ITS | Patient Health Record ---
Author Name Unknown Organization [facility] Address [address] [place] [address] Care Team Providers Care Cello Teacher Name Role Phone Erika Awad Unavailable [phone] Liz Tiwari Unavailable [phone] Allergies No Known Allergies Results Component Value Reference Range Notes URINE CULTURE Reviewed date:09/21/2023 02:01:48 PM Interpretation:Ecoli Performing Lab: Notes/Report: Colonization of the urinary tract without infection is common. Treatment is discouraged unless the patient is symptomatic, , or undergoing an invasive urologic procedure. URINE CULTURE 202 ESCHERICHIA COLI Strain #2 50,000 CFU/mL Escherichia coli 50,000 CFU/mL Escherichia coli URINE CULTURE 202 ESCHERICHIA COLI Strain #2 50,000 CFU/mL Escherichia coli 50,000 CFU/mL Escherichia coli KIT Reviewed date:09/21/2023 01:59:56 PM Interpretation:sensitive to macrobid Performing Lab: Notes/Report: Ampicillin Susc Islt <=2 Ampicillin+Sulbac Susc Islt <=2 ceFAZolin Susc Islt <=4 Cefepime Susc Islt <=1 cefTAZidime Susc Islt <=1 cefTRIAXone Susc Islt <=1 Gentamicin Susc Islt <=1 levoFLOXacin Susc Islt <=0.12 Nitrofurantoin Susc Islt <=16 Pip+Tazo Susc Islt <=4 TMP SMX Susc Islt <=20 Lab specim ens received at a [facility].?See result details for the performing location information. Ampicillin Susc Islt >=32 Ampicillin+Sulbac Susc Islt >=32 ceFAZolin Susc Islt >=64 Cefepime Susc Islt <=1 cefTAZidime Susc Islt 16 cefTRIAXone Susc Islt 16 Gentamicin Susc Islt <=1 levoFLOXacin Susc Islt <=0.12 Nitrofurantoin Susc Islt <=16 Pip+Tazo Susc Islt <=4 TMP SMX Susc Islt <=20 Lab specim ens received at a [facility].?See result details for the performing location information. *US Pelvis Complete Transabd ominal/Vaginal (Non-OB) Reviewed date:09/19/2023 03:15:15 PM Interpretation: Performing Lab: Notes/Report: [facility] Transvaginal Pelvic Study Report Name: AUGUSTINE BROWN Accession/Encounter No:[id number] : 1975 Age: 48 Gender: F Study Date: Sep 18, 2023 Study Time: 08:36 AM Reading Group: Erika Awad MD Referring Group: Liz Tiwari DO Ordering Phys: Liz Tiwari DO Tile Shader: Claudia Cummins RDMS Equipment: Affiniti 30 Study [...] 07:46 PM EST Electronically Signed on Studycast PeerioPAMendix 2023-09-18 Page 1 of 1 Imaging Center - , [facility] Urine Dip Reviewed date:09/18/2023 09:03:51 AM Interpretation: Performing Lab: Notes/Report: Glucose galen Bilirubin neg Ketones neg Specific [place] 1.010 Blood neg pH 5.5 Protein neg Urobilinogen norm Nitrite neg Leukocytes neg Ivana/Bacterial Vaginosis, HANK (Aptima) Reviewed date:09/19/2023 04:56:28 PM Interpretation:Negative Performing Lab:[facility] NIKKIE CLIA ID [id number], [address], [address], [place] [address], Director - Ana Hatch MD Notes/Report: Bacterial Vaginosis Negative Negative (L. gasseri, L. crispatus and L. jensenii), Gardnerella vaginalis, and Atopobium vaginae. The Aptima BV assay uses an algorithm for bacterial vaginosis based on The Aptima BV assay is a real time NAAT TMA assay developed for use on the automated [place] system that detects and discriminates RNA markers from the Lactobacillus species group detection of target organisms. Ivana species Negative Negative The CV Assay is a real time TMA assay developed for use on the automated [place] system that detects following Ivana species organisms (C. albicans, C. tropicalis, C. parapsilosis, C. dubliniensis), but the assay does not differentiate among C spp. Ivana glabrata Negative Negative ECG 12-LEAD Reviewed date:03/23/2023 10:17:59 AM Interpretation:Preop [...] (19) on 03/22/2023 3:00:30 PM Referred By: MAIRA LUISA Confirmed By: JAZMIN MARKS MD Table formatting from the original result was not included. Images from the original result were not included. Results ECG 12 Lead (Order [id number]) Order Questions Question Answer Reason for Exam Pre-Op / Pre-Procedure ECG 12 Lead Order: [id number] Status: Final result Visible to patient: No [...] 1309 Release Bronwyn Chery RN From Order: [id number] 03/07/23 1315 Result Interface, Ekg Results In [...] AP CASE REPORT Surgical Pathology Report Case: [id number] LAB AP CASE REPORT Authorizing Provider : Erika Awad MD Collected: 03/15/2023 02:00 PM LAB AP CASE REPORT [facility]ing Location: [facility] Received: 03/16/2023 06:37 AM LAB AP [...] Esqueda MD on 03/19/2023 at 11:41 AM [facility] AP GROSS DESCRIPTION 1. Uterus with Cervix, Bilateral Tubes and Ovaries. [facility] AP GROSS DESCRIPTION Received in formalin [...] in greatest dimension. Sectioning of the fundic [facility] AP GROSS DESCRIPTION and free-floating masses reveals whorled cut surfaces. The bilateral marr, cerebriform ovaries average 2.5 x 1.8 x 1.5 cm. Sectioning of both ovaries reveals unremarkable cut surfaces. The bilateral fimbriated fallopian tubes average 3.5 cm in length by 0.6 cm in diameter. Sectioning of both tubes reveals a grossly unremarkable lumen. Legal Biller sections are submitted as follows: 1A-anterior cervix; 1B-posterior cervix; 1C-anterior endomyometrium; 1D-posterior endomyometrium; 3P-6Q-ujafhl and free-floating masses; 1J-right ovary; 1K-left ovary; 1L-right fallopian tube and fimbria; 1M-left fallopian tube and fimbria. [facility] AP MICROSCOPIC DESCRIPTION The slides are reviewed and demonstrate histopathologic features supporting the above rendered diagnosis. Lab specimens received at a [facility].?See result details for the performing location information. Reason For Referral No Information Medications Medication [...] Problem Status W/U Status Risk Notes Problem Fibroid (0359253282) Fibroid (D21.9) Active confirmed Problem Personal history of primary malignant neoplasm of breast (806771664) Personal history of malignant neoplasm of breast (Z85.3) Active confirmed Vital Signs Blood pressure diastolic 80 mm Hg 09/18/2023 Height 61 in 09/18/2023 Blood pressure systolic 114 mm Hg 09/18/2023 Weight 202.2 lbs 09/18/2023 BMI 38.2 kg/m2 09/18/2023 Encounters Encounter Location Date Provider Diagnosis [facility] [address] [facility] [place] [address] 03/21/2023 Erika Awad [facility] [address] [facility] [address] [place] [address] 04/11/2023 Erika Awad [facility] [address] [facility] [address] [place] [address] 09/17/2023 Erika Awad [facility] [address] [facility] [address] [place] [address] 09/17/2023 Liz Tiwari [facility] [address] [facility] [address] [place] [address] 09/21/2023 Liz Tiwari [facility] [address] [place] [address] 09/18/2023 Liznilesh Tiwari Pelvic pain R10.2 [facility] [address] [place] [address] 04/11/2023 Erika Awad Postop check Z09 [facility] [address] [place] [address] 03/15/2023 Erika Awad [facility] [address] [place] [address] 09/18/2023 Liz Lipscomb Pelvic pain R10.2 Assessments Encounter Date Diagnosis (ICD Code) Assessment Notes Treatment Notes Treatment Clinical Notes 04/11/2023 Postop check (ICD-10 - Z09) Normal postoperative visit. Operative report is reviewed. She may increase physical activities, precautions are reviewed. A postoperative letter will be sent to her primary care provider. 09/18/2023 Pelvic pain (ICD-10 - R10.2) 09/18/2023 Pelvic pain (ICD-10 - R10.2) -New onset pelvic pain -Discussed etiologies including practice assistant, GI, MSK -S/p hysterectomy procedure 6 months [...] in 4 weeks for review of symptoms Plan Of Treatment No Information Insurance Providers Payer Name Payer Address Payer Phone Subscriber Number Group Number Insured Name Patient Relationship to Insured Coverage Start Date Coverage End Date [place] P[employer] [address] [place] [address] [id number] Augustine Brown Self - patient is the insured Medical (General) History Medical History History ICD Code breast cancer hypertension thyroid disorder anxiety acid reflux migraine lympedema seasonal allergies Surgical History Surgery Date(Month/Year) bilateral mastectomy C/S x 2 Cholecystectomy uterine ablation TRH with BSO tonsillectomy Hospitalization History Reason Date(Month/Year) surgery
--- OUTSIDE RECORDS SUMMARY | 2024-03-08 08:24 | XMS_ITS ---
Author Name Unknown Address [address] [place] [address] Phone Organization [facility] Address [address] [place] [address] Phone Care Team Providers Care Painter Set Name Role Phone Aman Walls MD Unavailable [phone] Conditions or Problems No information available. Medications Medication Instructions Start Date Stop Date Generic Name ND Provider DOXYCYCLINE MONOHYDRATE 100 MG TABS Take 1 tablet by mouth twice a day doxycycline monohydrate 23551196236 Aman Walls MD BIOTIN 5000 MCG CAPS Take 1 capsule by mouth once a day biotin 37878055398 Piper Lani ceftriaxone recon soln 2GM IV Q24hrs - INPAT ceftriaxone recon soln Piper Lani FLUTICASONE PROPIONATE 50 MCG/ACT SUSP 2 spray into both nostrils once a day as directed fluticasone propionate 33200601988 Piper Lani BUSPIRONE HCL 15 MG TABS Take 1 tablet by mouth three times a day buspirone 62194524550 Piper Lani ROSUVASTATIN CALCIUM 10 MG TABS Take 1 tablet by mouth once a day rosuvastatin 39702579413 Piper Lani MULTI +DHA 27-0.8-250 MG CAPS Take 900 by mouth once a day vit 27-qqxp-eneof-dh a 91529205393 Piper Lani Misc Natural Products Take 1 tablet by mouth once a day OSTEO BI-FLEX ADV JOINT SHIELD PO Piper Lani VITAMIN B-12 1000 MCG TABS Take 1 tablet by mouth once a day cyanocobalamin (vitamin b-12) 18330886472 Piper Lani LEVOTHYROXINE SODIUM 50 MCG TABS Take 1 tablet by mouth once a day levothyroxine 88100694885 Piper Lani ANASTROZOLE 1 MG TABS Take 1 tablet by mouth once a day anastrozole 36145378730 Piper Lani PROPRANOLOL HCL 20 MG TABS Take 1 tablet by mouth every night propranolol 94668143496 Piper Lani ESOMEPRAZOLE MAGNESIUM 20 MG CPDR Take 2 capsule by mouth every morning esomeprazole magnesium 04334762475 Piper Lani HYDROCODONE-ACET AMINOPHEN 5-325 MG TABS Take 1 tablet by mouth every six hours as needed hydrocodone-acet aminophen 54641736128 Piper Lani cubicin 500mg IV Q24hrs - INPAT cubicin Piper Lani TELMISARTAN-HCTZ 40-12.5 MG TABS Take 1 tablet by mouth every night telmisartan-hydr ochlorothiazid 03806487140 Piper Lani LORATADINE 10 MG CAPS Take 1 capsule by mouth once a day LORATADINE Piper Lani VITAMIN E 180 MG (400 UNIT) CAPS Take 1 capsule by mouth once a day vitamin e (dl, acetate) 73954790717 Piper Lani OXYCODONE-ACETAM INOPHEN 10-325 MG TABS Take 1 tablet by mouth every eight hours as needed oxycodone-acetam inophen 64153220051 Piper Lani Medications Administered No information available. Allergies, Adverse Reactions, Alerts No information available. Results Date Name Value Unit Range Flag Description Office Visit: rm 6 ORALTOBACUSE Never Tobacco smoking status SMOK STATUS Never smoker Toba tobacco sorter smoking status MEDS REVIEW Done Documenta tion [...]
--- OUTSIDE RECORDS SUMMARY | 2024-03-08 08:24 | XMS_ITS ---
Author Name Unknown Address [address] [place] [address] Phone Organization [facility] Address [address] [place] [address] Phone Care Team Providers Care Stockroom Attendant Name Role Phone Aman Walls MD [phone] Conditions or Problems No information available. Medications Medication Instructions Start Date Stop Date Generic Name NDC Provider CEPHALEXIN 500 MG CAPS Take 1 capsule by mouth three times a day 0 cephalexin 06966355713 Aman Walls MD DOXYCYCLINE MONOHYDRATE 100 MG CAPS Take 1 capsule by mouth twice a day 0 doxycycline monohydrate 94398263053 Aman Walls MD Medications Administered No information available. Allergies, Adverse Reactions, Alerts No information available. 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
== END 2024-03-08 23:59 | disposition home or self-care (01) ==
LOC: LAB.DROPOF 08:22
PROVIDERS: PCP Physician Assistant; Visit Provider Physician Assistant
DX: N39.0 Urinary tract infection, site not specified (principal); B96.29 Other Escherichia coli [E. coli] as the cause of diseases classified elsewhere
CPT/HCPCS: 87086; 87088; 87186

== ENCOUNTER 2024-03-30 09:00 | Emergency (ER) | payer BC, SELFPAY ==
--- OUTSIDE RECORDS SUMMARY | 2024-03-30 09:05 | XMS_ITS ---
Author Name Unknown Address [address] [place] [address] [place] [address] Phone Organization [facility] Address [address] [place] [address] Phone Care Team Providers Care Associate Professor Of Chemistry Name Role Phone Angelo RUTHERFORD, Saul Pena [phone] Plan of Treatment No Plan of Treatment Recorded Assessments Includes: Assessments for all patient encounters No Assessments Recorded Medical Equipment - Implanted Devices Includes: Current and historical Devices No Medical Equipment Recorded Medications Administered Includes: Administered Medications in patient's chart No Administered Medications Recorded Results Includes: Results from 03/30/2023 through 03/30/2024 No Results Recorded For Specified Dates History [...] Subscriber Relationship Effect diamond Dates 1 - [facility] [id number] Leydi Brown Self Clinical Notes Includes: Signed Clinical Notes starting from 09/14/2022 No Clinical Notes Recorded
--- OUTSIDE RECORDS SUMMARY | 2024-03-30 09:05 | XMS_ITS ---
Care Plan - [facility], [facility] Created on: March 30, 2024 Leydi Brown : 1975 Sex: Female Author Name Unknown Address [address] [place] [address] Phone Organization [facility] , [facility] Address [address] [place] [address] Phone Care Team Providers Care Agricultural Equipment Test Engineer Name Role Phone Saul [place] PA-C [phone]
--- OUTSIDE RECORDS SUMMARY | 2024-03-30 09:05 | XMS_ITS | Patient Health Record ---
Author Name Unknown Organization [facility] Address [address] [place] [address] Care Team Providers Care Bioassayist Name Role Phone Erika Awad Unavailable [phone] Liz Tiwari Unavailable [phone] Allergies No Known Allergies Results Component Value Reference Range Notes Urine Dip Reviewed date:09/18/2023 09:03:51 AM Interpretation: Performing Lab: Notes/Report: Glucose galen Bilirubin neg Ketones neg Specific [place] 1.010 Blood neg pH 5.5 Protein neg Urobilinogen norm Nitrite neg Leukocytes neg Ivana/Bacterial Vaginosis, HANK (Aptima) Reviewed date:09/19/2023 04:56:28 PM Interpretation:Negative Performing Lab:Ashia PETTY [facility] - NIKKIE CLIA ID [id number], [address], [address], [place] [address], Director - Ana Hatch MD Notes/Report: Bacterial Vaginosis Negative Negative system that detects and discriminates RNA markers from the Lactobacillus species group detection of target organisms. The Aptima BV assay is a real time NAAT TMA assay developed for use on the automated [place] The Aptima BV assay uses an algorithm for bacterial vaginosis based on (L. gasseri, L. crispatus and L. jensenii), Gardnerella vaginalis, and Atopobium vaginae. Ivana species Negative Negative The CV Assay is a real time TMA assay developed for use on the automated [place]pton differentiate among C spp. system that detects following Ivana species organisms (C. albicans, C. tropicalis, C. parapsilosis, C. dubliniensis), but the assay does not Ivana glabrata Negative Negative *US Pelvis Complete Transabd ominal/Vaginal (Non-OB) Reviewed date:09/19/2023 03:15:15 PM Interpretation: Performing Lab: Notes/Report: [facility] Transvaginal Pelvic Study Report Name: AUGUSTINE CHARLESHOSSEINNERI Accession/Encounter No:[id number] : 1975 Age: 48 Gender: F Study Date: Sep 18, 2023 Study Time: 08:36 AM Reading Group: Erika Awad MD Referring Group: Liz Tiwari DO Ordering Phys: Liz Tiwari DO Supervisor Drying And Softening: Claudia Cummins RDMS Equipment: Affiniti 30 Study [...] 07:46 PM EST Electronically Signed on Studycast AUGUSTINE COPPAGE 2023-09-18 Page 1 of 1 Imaging Center - , [facility] [...] <=20 Lab specim ens received at a [facility].?See result details for the performing location information. Ampicillin Susc Islt >=32 Ampicillin+Sulbac Susc Islt >=32 ceFAZolin Susc Islt >=64 Cefepime Susc Islt <=1 cefTAZidime Susc Islt 16 cefTRIAXone Susc Islt 16 Gentamicin Susc Islt <=1 levoFLOXacin Susc Islt <=0.12 Nitrofurantoin Susc Islt <=16 Pip+Tazo Susc Islt <=4 TMP SMX Susc Islt <=20 Lab specim ens received at a [facility].?See result details for the performing location information. URINE CULTURE Reviewed date:09/21/2023 02:01:48 PM Interpretation:Ecoli Performing Lab: Notes/Report: Colonization of the urinary tract without infection is common. Treatment is discouraged unless the patient is symptomatic, , or undergoing an invasive urologic procedure. URINE CULTURE 202 ESCHERICHIA COLI 50,000 CFU/mL Escherichia coli Strain #2 50,000 CFU/mL Escherichia coli URINE CULTURE 202 ESCHERICHIA COLI 50,000 CFU/mL Escherichia coli Strain #2 50,000 CFU/mL Escherichia coli Reason For Referral No Information Medications Medication SIG (Take, Route, Frequency, Duration) Notes Start Date End Date Status NexIUM Active Rosuvastatin Calcium 10 MG 1 tablet Oral ly Once a day Active Propranolol HCl Acti ve Methenamine Hippurate 1 GM 1 tablet Oral ly Twice a day Active Telmisartan-HCTZ 40-12.5 MG TAKE 1 TABLE T BY MOUTH ONCE DAILY Oral for 90 Days Active asprin Active Desmopressin Acetate Active Cranberry Active Biotin Active Vitamin D3 Active Anastrozole Active B12 Active Claritin Active Dexlansoprazole 60 MG TAKE 1 CAPSULE BY MOUTH ONCE DAILY Oral for 90 Days Active Sertraline HCl 25 MG 1 tablet Orally Onc e a day Active Flonase Active Levothyroxine Sodium Active Social History Tobacco Use: Social History [...] history of primary malignant neoplasm of breast (586532183) Personal history of malignant neoplasm of breast (Z85.3) Active confirmed Problem Fibroid (1240806038) Fibroid (D21.9) Active confirmed Vital Signs Blood pressure diastolic 76 mm Hg 03/12/2024 Height 61 in 03/12/2024 Blood pressure systolic 128 mm Hg 03/12/2024 Weight 201.6 lbs 03/12/2024 BMI 38.09 kg/m2 03/12/2024 Encounters Encounter Location Date Provider Diagnosis [facility] [address] [place] [address] 09/18/2023 Liz Tiwari Pelvic pain R10.2 [facility] [address] [place] [address] 04/11/2023 Erika Awad Postop check Z09 [facility] [address] [place] [address] 09/18/2023 Liz Tiwari Pelvic pain R10.2 [facility] [address] [place] [address] 03/12/2024 Erika Delmi 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 Driver 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 without 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 Z01.419 and Encounter for screening mammogram for malignant neoplasm of breast Z12.31 [facility] [address] [place] [address] 04/11/2023 Erika Awad [facility] [address] [facility] [address] [facility] [address] [address] [place] [address] 09/17/2023 Erika Awad [facility] [address] [facility] [address] [place] [address] 09/17/2023 Liz Tiwari [facility] [address] [address] [facility] [address] [address] [place] [address] 09/21/2023 Liz Tiwari Assessments Encounter Date Diagnosis (ICD Code) Assessment [...] -New onset pelvic pain -Discussed etiologies including garment cutter, GI, MSK -S/p hysterectomy procedure 6 months [...] in 4 weeks for review of symptoms 03/12/2024 Wheelchair Driver exam without 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 (ICD-10 - Z01.419) 03/12/2024 Encounter for screening mammogram for malignant neoplasm of breast (ICD-10 - Z12.31) Plan Of Treatment No Information Insurance Providers Payer Name Payer Address Payer Phone Subscriber Number Group Number Insured Name Patient Relationship to Insured Coverage Start Date Coverage End Date Jose MOORE [address] [place] [address] [id number] Augustine Brown Self - patient is the insured Medical (General) History Medical History History ICD Code breast cancer hypertension thyroid disorder anxiety acid reflux migraine lympedema seasonal allergies Surgical History Surgery Date(Month/Year) bilateral mastectomy C/S x 2 tonsillectomy Cholecystectomy uterine ablation TRH with BSO Hospitalization History Reason Date(Month/Year) surgery
--- OUTSIDE RECORDS SUMMARY | 2024-03-30 09:05 | XMS_ITS ---
Author Name Unknown Address [address] [place] [address] Phone Organization [facility] Address [address] [place] [address] Phone Care Team Providers Care Milling Planer Operator Name Role Phone Aman Walls MD [phone] Conditions or Problems No information available. Medications Medication Instructions Start Date Stop Date Generic Name NDC Provider CEPHALEXIN 500 MG CAPS Take 1 capsule by mouth three times a day 0 cephalexin [id number] Aman Walls MD DOXYCYCLINE MONOHYDRATE 100 MG CAPS Take 1 capsule by mouth twice a day 0 doxycycline monohydrate 45126516538 Aman Walls MD Medications Administered No information available. Allergies, Adverse Reactions, Alerts No information available. 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
--- OUTSIDE RECORDS SUMMARY | 2024-03-30 09:05 | XMS_ITS | Clinical Summary ---
Author Name Unknown Address [address] [place] [address] Phone Organization [facility] Address [address] [place] [address] Phone Care Team Providers Care Geometry Professor Name Role Phone Aman Walls MD [phone] Conditions or Problems Problem Name Problem Code Onset Date Status Entry Date Provider Comment Standard Description Annotate Hx of malignant neoplasm of breast 230529266 (SNOMED CT) Active Floresita Fox History of malignant neoplasm of breast Personal history of antineoplastic chemotherapy 134398284 (SNOMED CT) Active Floresita Ruddy H/O: chemotherapy History of irradiation therapy Z92.3 (ICD-10-CM ) Active Floresita Ruddy Personal history of irradiation Cellulitis, chest wall 82346546 (SNOMED CT) Active Floresita Ruddy Cellulitis of chest wall Abscess, chest wall 66367849 (SNOMED CT) Active Floresita Ruddy Abscess of chest wall Infection, local skin/subcutaneo us tissue 471527476 (SNOMED CT) Active Floresita Ruddy Localized infection of skin AND/OR subcutaneous tissue History of bilateral mastectomy 624151456 (SNOMED CT) Active Floresita Ruddy History of right mastectomy Cellulitis of left breast N61.0 (ICD-10-CM ) Resolved Floresita Fox Mastitis without abscess Morbid obesity due to excess calories E66.01 (ICD-10-CM ) Active Floresita Fox Morbid (severe) obesity due to excess calories 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 Floresita Fox Javed thyroiditis Benign Essential Hypertension 49740273 (SNOMED CT) Active Floresita Fox Benign hypertension Cellulitis of left breast N61.0 (ICD-10-CM ) Removed Ara Dyer Mastitis without abscess Medications Medication Instructions Start Date Stop Date Generic Name NDC Provider DOXYCYCLINE MONOHYDRATE 100 MG TABS Take 1 tablet by mouth twice a day doxycycline monohydrate 64765256094 Aman Walls MD BIOTIN 5000 MCG CAPS Take 1 capsule by mouth once a day biotin 97250290297 Piper Lani ceftriaxone recon soln 2GM IV Q24hrs - INPAT ceftriaxone recon soln Piper Lani FLUTICASONE PROPIONATE 50 MCG/ACT SUSP 2 spray into both nostrils once a day as directed fluticasone propionate 37419362359 Piper Lani BUSPIRONE HCL 15 MG TABS Take 1 tablet by mouth three times a day buspirone 98845759953 Piper Lani ROSUVASTATIN CALCIUM 10 MG TABS Take 1 tablet by mouth once a day rosuvastatin 07416145881 Piper Lani MULTI +DHA 27-0.8-250 MG CAPS Take 900 by mouth once a day vit 81-rshr-vdhev-dh a 20103992568 Piper Lani Misc Natural Products Take 1 tablet by mouth once a day OSTEO BI-FLEX ADV JOINT SHIELD PO Piper Lani VITAMIN B-12 1000 MCG TABS Take 1 tablet by mouth once a day cyanocobalamin (vitamin b-12) 01509039998 Piper Lani LEVOTHYROXINE SODIUM 50 MCG TABS Take 1 tablet by mouth once a day levothyroxine 28242020427 Piper Lani ANASTROZOLE 1 MG TABS Take 1 tablet by mouth once a day anastrozole 87696953414 Piper Lani PROPRANOLOL HCL 20 MG TABS Take 1 tablet by mouth every night propranolol 55807197358 Piper Lani ESOMEPRAZOLE MAGNESIUM 20 MG CPDR Take 2 capsule by mouth every morning esomeprazole magnesium 02201610510 Piper Lani HYDROCODONE-ACET AMINOPHEN 5-325 MG TABS Take 1 tablet by mouth every six hours as needed hydrocodone-acet aminophen 31189624281 Piper Lani cubicin 500mg IV Q24hrs - INPAT cubicin Piper Lani TELMISARTAN-HCTZ 40-12.5 MG TABS Take 1 tablet by mouth every night telmisartan-hydr ochlorothiazid 24006324475 Piper Lani LORATADINE 10 MG CAPS Take 1 capsule by mouth once a day LORATADINE Piper Lani VITAMIN E 180 MG (400 UNIT) CAPS Take 1 capsule by mouth once a day vitamin e (dl, acetate) 49623537803 Piper Lani OXYCODONE-ACETAM INOPHEN 10-325 MG TABS Take 1 tablet by mouth every eight hours as needed oxycodone-acetam inophen 23886007191 Piper Lani CEPHALEXIN 500 MG CAPS Take 1 capsule by mouth three times a day cephalexin 11131113540 Aman Walls MD DOXYCYCLINE MONOHYDRATE 100 MG CAPS Take 1 capsule by mouth twice a day doxycycline monohydrate 47415885264 Aman Walls MD VITAMIN E 180 MG (400 UNIT) CAPS Take 1 capsule by mouth Daily. vitamin e (dl, acetate) 16884891814 QIE qieuser VITAMIN B-12 1000 MCG TABS Take 1 tablet by mouth Daily. cyanocobalamin (vitamin b-12) 22504397126 QIE qieuser TELMISARTAN-HCTZ 40-12.5 MG TABS Take 1 tablet by mouth Every Evening. telmisartan-hydr ochlorothiazid 05728975086 QIE qieuser ROSUVASTATIN CALCIUM 10 MG TABS Take 1 tablet by mouth Daily. rosuvastatin 98973103224 QIE qieuser PROPRANOLOL HCL 20 MG TABS Take 1 tablet by mouth every night at bedtime. propranolol 78320793637 QIE qieuser MULTI +DHA 27-0.8-250 MG CAPS Take 900 doses by mouth Daily. vit 82-gtfp-mxazq-dh a 79256498722 QIE qieuser OXYCODONE-ACETAM INOPHEN 10-325 MG TABS Take 1 tablet by mouth Every 8 (Eight) Hours As Needed for Moderate Pain. oxycodone-acetam inophen 14106009737 QIE qieuser Misc Natural Products Take 1 tablet by mouth Daily. OSTEO BI-FLEX ADV JOINT SHIELD PO QIE qieuser LORATADINE 10 MG CAPS Take 1 capsule by mouth Daily. LORATADINE QIE qieuser LEVOTHYROXINE SODIUM 50 MCG TABS Take 1 tablet by mouth Daily. levothyroxine 45430609091 QIE qieuser HYDROCODONE-ACET AMINOPHEN 5-325 MG TABS Take 1 tablet by mouth Every 6 (Six) Hours As Needed. hydrocodone-acet aminophen 92096829820 QIE qieuser FLUTICASONE PROPIONATE 50 MCG/ACT SUSP 2 sprays into the nostril(s) as directed by provider Daily. fluticasone propionate 41067184984 QIE qieuser ESOMEPRAZOLE MAGNESIUM 20 MG CPDR Take 2 capsules by mouth Every Morning Before Breakfast. esomeprazole magnesium 23544250981 QIE qieuser BUSPIRONE HCL 15 MG TABS Take 1 tablet by mouth 2 (Two) Times a Day. 2nd time at bedtime. buspirone 62623069346 QIE qieuser SM BIOTIN 5000 MCG CAPS Take 1 capsule by mouth Daily. biotin 48236996341 QIE qieuser ANASTROZOLE 1 MG TABS Take 1 tablet by mouth Daily. anastrozole 36119997767 QIE qieuser cubicin 500mg IV Q24hrs - INPAT cubicin Chantale [place] ceftriaxone recon soln 2GM IV Q24hrs - INPAT ceftriaxone recon soln Chantale [place] Medications Administered No information available. Allergies, Adverse [...] smoking status SMOK STATUS Never smoker Toba customer account specialist smoking status MEDS REVIEW Done Documenta tion of current medications (procedure) Plan of Care Type Date Detail Pending order Wound Culture an d Sensitivity w/Gram Stain Pending order Change IV antibi otics Pending order Continue IV anti biotics Pending order Stat Weekly Labs Procedures Code Procedure Name Date Entry Date CPT-47452 Wound Culture and Sensitivity w/Gram Stai n [...]
--- OUTSIDE RECORDS SUMMARY | 2024-03-30 09:05 | XMS_ITS ---
Author Name Unknown Address [address] [place] [address] Phone Organization [facility] Address [address] [place] [address] Phone Care Team Providers Care Outpatient Coordinator Name Role Phone Aman Walls MD Unavailable [phone] Conditions or Problems No information available. Medications Medication Instructions Start Date Stop Date Generic Name ND Provider DOXYCYCLINE MONOHYDRATE 100 MG TABS Take 1 tablet by mouth twice a day doxycycline monohydrate 16524652304 Aman Walls MD BIOTIN 5000 MCG CAPS Take 1 capsule by mouth once a day biotin 48315093044 Piper Lani ceftriaxone recon soln 2GM IV Q24hrs - INPAT ceftriaxone recon soln Piper Lani FLUTICASONE PROPIONATE 50 MCG/ACT SUSP 2 spray into both nostrils once a day as directed fluticasone propionate 42181974770 Piper Lani BUSPIRONE HCL 15 MG TABS Take 1 tablet by mouth three times a day buspirone 56418677647 Piper Lani ROSUVASTATIN CALCIUM 10 MG TABS Take 1 tablet by mouth once a day rosuvastatin 21764423686 Piper Lani MULTI +DHA 27-0.8-250 MG CAPS Take 900 by mouth once a day vit 95-jvgp-gsini-dh a 92134312374 Piper Lani Misc Natural Products Take 1 tablet by mouth once a day OSTEO BI-FLEX ADV JOINT SHIELD PO Piper Lani VITAMIN B-12 1000 MCG TABS Take 1 tablet by mouth once a day cyanocobalamin (vitamin b-12) 91263309096 Piper Lani LEVOTHYROXINE SODIUM 50 MCG TABS Take 1 tablet by mouth once a day levothyroxine 38381045543 Piper Lani ANASTROZOLE 1 MG TABS Take 1 tablet by mouth once a day anastrozole 78428418766 Piper Lani PROPRANOLOL HCL 20 MG TABS Take 1 tablet by mouth every night propranolol 68624644524 Piper Lani ESOMEPRAZOLE MAGNESIUM 20 MG CPDR Take 2 capsule by mouth every morning esomeprazole magnesium 65434210379 Piper Lani HYDROCODONE-ACET AMINOPHEN 5-325 MG TABS Take 1 tablet by mouth every six hours as needed hydrocodone-acet aminophen 57437833392 Piper Lani cubicin 500mg IV Q24hrs - INPAT cubicin Piper Alni TELMISARTAN-HCTZ 40-12.5 MG TABS Take 1 tablet by mouth every night telmisartan-hydr ochlorothiazid 24469821411 Ipper Lani LORATADINE 10 MG CAPS Take 1 capsule by mouth once a day LORATADINE Piper Lani VITAMIN E 180 MG (400 UNIT) CAPS Take 1 capsule by mouth once a day vitamin e (dl, acetate) 72038522014 Piper Lani OXYCODONE-ACETAM INOPHEN 10-325 MG TABS Take 1 tablet by mouth every eight hours as needed oxycodone-acetam inophen 55473415196 Piper Lani Medications Administered No information available. Allergies, Adverse Reactions, Alerts No information available. Results Date Name Value Unit Range Flag Description Office Visit: rm 6 ORALTOBACUSE Never Tobacco smoking status SMOK STATUS Never smoker Toba tobacco sizer smoking status MEDS REVIEW Done Documenta tion [...]
--- OUTSIDE RECORDS SUMMARY | 2024-03-30 09:05 | XMS_ITS ---
Author Name Unknown Address [address] [place] [address] Phone Organization [facility] Address [address] [place] [address] Phone Care Team Providers Care Mathematician Name Role Phone Piper Garibay Unavailable Unavailable Conditions or Problems No information available. Medications Medication Instructions Start Date Stop Date Generic Name NDC Provider VITAMIN E 180 MG (400 UNIT) CAPS Take 1 capsule by mouth Daily. vitamin e (dl, acetate) 18530326875 QIE qieuser VITAMIN B-12 1000 MCG TABS Take 1 tablet by mouth Daily. cyanocobalamin (vitamin b-12) 55533734134 QIE qieuser TELMISARTAN-HCTZ 40-12.5 MG TABS Take 1 tablet by mouth Every Evening. telmisartan-hydro chlorothiazid 74685487739 QIE qieuser ROSUVASTATIN CALCIUM 10 MG TABS Take 1 tablet by mouth Daily. rosuvastatin 10178543966 QIE qieuser PROPRANOLOL HCL 20 MG TABS Take 1 tablet by mouth every night at bedtime. propranolol 73834845944 QIE qieuser MULTI +DHA 27-0.8-250 MG CAPS Take 900 doses by mouth Daily. vit 37-lkcj-kavwo-dha 89223954164 QIE qieuser OXYCODONE-ACETAM INOPHEN 10-325 MG TABS Take 1 tablet by mouth Every 8 (Eight) Hours As Needed for Moderate Pain. oxycodone-acetami nophen 45434146284 QIE qieuser Misc Natural Products Take 1 tablet by mouth Daily. OSTEO BI-FLEX ADV JOINT SHIELD PO QIE qieuser LORATADINE 10 MG CAPS Take 1 capsule by mouth Daily. LORATADINE QIE qieuser LEVOTHYROXINE SODIUM 50 MCG TABS Take 1 tablet by mouth Daily. levothyroxine 81183882871 QIE qieuser HYDROCODONE-ACET AMINOPHEN 5-325 MG TABS Take 1 tablet by mouth Every 6 (Six) Hours As Needed. hydrocodone-aceta minophen 44358218000 QIE qieuser FLUTICASONE PROPIONATE 50 MCG/ACT SUSP 2 sprays into the nostril(s) as directed by provider Daily. fluticasone propionate 39140157181 QIE qieuser ESOMEPRAZOLE MAGNESIUM 20 MG CPDR Take 2 capsules by mouth Every Morning Before Breakfast. esomeprazole magnesium 80388889949 QIE qieuser BUSPIRONE HCL 15 MG TABS Take 1 tablet by mouth 2 (Two) Times a Day. 2nd time at bedtime. buspirone 73508674456 QIE qieuser SM BIOTIN 5000 MCG CAPS Take 1 capsule by mouth Daily. biotin 38380556080 QIE qieuser ANASTROZOLE 1 MG TABS Take 1 tablet by mouth Daily. anastrozole 16828397376 QIE qieuser Medications Administered No information available. Allergies, Adverse Reactions, Alerts No information available. Results No information available. Plan of Care No information available. Procedures No information available. Vital Signs No information available. Immunizations No information available. Advance Directives No information available.
[2024-03-30 09:25] VITALS: BP 145/93; PULSE 75; RESP 18; TEMP 36.9; O2SAT 98; BMI 36.6
--- NOTE | 2024-03-30 09:26 | ED_ITS ---
Discharge Plan Disposition Patient Disposition: Home, Self-Care Condition: Good Prescriptions Prescriptions: New phenazopyridine [Pyridium] 200 mg tablet 200 mg PO Q8H 2 Days Qty: 6 0RF methylprednisolone 4 mg Tablets,Dose Pack 4 mg PO DIRECTED 6 Days Qty: 21 0RF Rx Instructions: Take 1 pack as directed for 6 days cefdinir 300 mg capsule 300 mg PO BID Qty: 20 0RF No Action telmisartan-hydrochlorothiazid 40-12.5 tablet 1 tab PO DAILY levothyroxine 25 mcg tablet 25 mcg PO DAILY Patient Comments: TAKE 1 TABLET BY MOUTH ONCE DAILY propranolol 20 mg tablet 20 mg PO DAILY Patient Comments: TAKE 1 TABLET BY MOUTH AT BEDTIME anastrozole 1 mg tablet 1 mg PO DAILY Patient Comments: TAKE 1 TABLET BY MOUTH ONCE DAILY sertraline 25 mg tablet 25 mg PO DAILY Patient Comments: TAKE 1 TABLET BY MOUTH ONCE DAILY rosuvastatin 10 mg tablet 10 mg PO DAILY Patient Comments: TAKE 1 TABLET BY MOUTH ONCE DAILY desmopressin 0.2 mg tablet 0.2 mg PO DAILY Patient Comments: TAKE 1 TABLET BY MOUTH ONCE DAILY AT NIGHT methenamine hippurate 1 gram tablet See Rx Instructions .ROUTE .COMPLEX Patient Comments: TAKE 1 TABLET BY MOUTH TWICE DAILY WITH MEALS Rx Instructions: TAKE 1 TABLET BY MOUTH TWICE DAILY WITH MEALS aspirin [Aspir-81] 81 mg Tablet,Delayed Release (Dr/Ec) 81 mg PO DAILY esomeprazole magnesium [Nexium] 40 mg Capsule,Delayed Release(Dr/Ec) 40 mg PO DAILY fluticasone propionate [Flonase] 50 mcg/actuation [place],Suspension See Rx Instructions .ROUTE .COMPLEX Rx Instructions: see rx instructions loratadine [Claritin] 10 mg Tablet 10 mg PO DAILY Referrals Follow up/Referrals: Oralia Treadwell APRN [Primary Care Provider] - See instructions Activity Restrictions/Add. Instructions Additional Instructions/Restrictions: Drink plenty of fluids. Take tylenol or ibuprofen for pain or fever. Take the medications as directed. Follow up with your regular doctor. GO TO THE ER FOR ANY WORSENING SYMPTOMS The pyridium will make your urine turn orange, this is an expected side effect. It will stain your clothes if it comes into contact with them. We will culture the urine. That will tell what bacteria is causing your infection and which antibiotics will treat it best. Sometimes the first antibiotic we prescribe turns out to not work against different bacteria. So, make sure you follow up within 3 days if you are not getting better. Clinical Impressions Clinical Impression: UTI (urinary tract infection), Acute right otitis media Instructions Patient Instructions: Middle Ear Infection, Urine Culture, DI for Urinary Tract Infection (UTI) Discharge ED Provider: Herbie Womack [facility] HPI General Stated complaint: Pain in R ear, dizziness, pain and frequent urinat Time Seen by Provider: 03/30/24 09:26 History of Present Illness Provider Complaint: She states that for the past 5 days she has had low back pain, urinary frequency and dysuria. She is also having right ear pain and pressure. Related Data Home Medications Medication Instructions Recorded Confirmed telmisartan 40 1 tab PO DAILY blood pressure 05/02/18 03/30/24 mg-hydrochlorothiazide 12.5 mg tablet levothyroxine 25 mcg tablet 25 mcg PO DAILY . 11/05/22 03/30/24 propranolol 20 mg tablet 20 mg PO DAILY . 11/05/22 03/30/24 anastrozole 1 mg tablet 1 mg PO DAILY 01/20/24 03/30/24 desmopressin 0.2 mg tablet 0.2 mg PO DAILY 01/20/24 03/30/24 methenamine hippurate 1 gram tablet See Rx Instructions .Route .COMPLEX 01/20/24 03/30/24 rosuvastatin 10 mg tablet 10 mg PO DAILY 01/20/24 03/30/24 sertraline 25 mg tablet 25 mg PO DAILY 01/20/24 03/30/24 aspirin 81 mg tablet,delayed 81 mg PO DAILY 03/30/24 03/30/24 release esomeprazole magnesium 40 mg 40 mg PO DAILY 03/30/24 03/30/24 capsule,delayed release (Nexium) fluticasone propionate 50 See Rx Instructions .Route .COMPLEX 03/30/24 03/30/24 mcg/actuation nasal spray,suspension loratadine 10 mg tablet (Claritin) 10 mg PO DAILY 03/30/24 03/30/24 Previous Rx's Medication Instructions Recorded cefdinir 300 mg capsule 300 mg PO BID #20 caps 03/30/24 methylprednisolone 4 mg tablets in 4 mg PO DIRECTED 6 days #21 tabs 03/30/24 a dose pack phenazopyridine 200 mg tablet 200 mg PO Q8H 2 days #6 tabs 03/30/24 (Pyridium) Allergies Allergy/AdvReac Type Severity Reaction Status Date / Time No Known Allergies Allergy Verified 03/30/24 09:35 [facility] Disclaimer: The information contained in this section may have been updated after the patient was seen, as this information can be updated by other users. Family History Other No significant family history Social History Smoking Status: Never smoker alcohol intake: never substance use type: denies use current occupational status: employed Travel in the last 8 weeks: None household members: spouse housing: house current occupational exposures/hazards: Yes caffeine: No ROS Obtained: Yes All systems reviewed & no additional complaints except as documented Constitutional Constitutional: Reports system reviewed and no additional complaints, except as documented, Denies chills and Denies fever(s) Eyes Eyes: Denies eye discharge ENT Ears, Nose, Mouth, and Throat: Denies dysphagia, Denies sore throat and Denies throat swelling Cardiovascular Cardiovascular: Denies chest pain and Denies dyspnea Respiratory Respiratory: Denies chest congestion, Denies cough and Denies dyspnea Gastrointestinal Gastrointestingal: Denies abdominal pain, constipation, diarrhea, dysphagia, nausea or vomiting Genitourinary Female Genitourinary: Reports as per HPI, Reports dysuria, Reports urinary frequency, Denies urinary incontinence, Reports urinary hesitancy and Reports urinary urgency Musculoskeletal Musculoskeletal: Denies arthralgias and Reports back pain Integumentary/Breasts Skin/Breast: Denies rash Neurologic Neurologic: Denies paresthesias Allergic/Immunologic Allergic/Immunologic: Denies throat swelling Physical Exam General General appearance: alert and in no apparent distress Head Head exam: atraumatic, normocephalic and normal inspection Eye Eye exam: Present normal appearance; Absent PERRL or EOMI ENT ENT exam: Present mucous membranes moist and normal external ear exam Expanded ENT Exam TM/Canal exam: Bilateral TM: erythema, bulging and effusion Nose exam: Absent sinus tenderness Nasal speculum exam: Bilateral: normal Mouth exam: Present normal external inspection and other; Absent drooling Teeth exam: Present normal inspection Throat exam: Present tonsillar erythema and tonsillomegaly Neck Neck exam: Present normal inspection, full ROM and trachea midline; Absent tenderness, meningismus or lymphadenopathy Chest Chest inspection: Present normal inspection and symmetric chest wall rise; Absent tenderness Respiratory Respiratory exam: Present normal lung sounds bilaterally; Absent respiratory distress, wheezes or stridor Cardiovascular Cardiovascular exam: Present regular rate, normal rhythm and normal heart sounds; Absent tachycardia or irregular rhythm Abdominal Exam Abdominal exam: Present soft and normal bowel sounds; Absent distention, tenderness, guarding, rebound or rigidity Extremities Exam Extremities exam: Present normal inspection and normal capillary refill; Absent tenderness, joint swelling or calf tenderness Back Exam Back exam: Present normal inspection and full ROM; Absent tenderness, CVA tenderness (R) or CVA tenderness (L) Neurological Exam Neurological exam: Present alert, oriented X3, CN II-XII intact, normal gait and reflexes normal; Absent motor sensory deficit Psychiatric Psychiatric exam: Present normal affect and normal mood Skin Skin exam: Present warm, dry, intact and normal color Lymphatic Lymphatic Findings: no adenopathy Medical Decision Making Medical Records Medical records reviewed: No I reviewed the patient's medical records. Jarred Inquiry Pt receiving controlled substance: No Lab Data Lab results reviewed: Yes I reviewed the patient's lab results.
[2024-03-30 09:38] LABS: Apearance,Urine Clear (Clear); Bilirubin,Urine Negative (Negative); Blood, Urine Negative (Negative); Color,Urine Yellow (Yellow); Glucose,Urine (UA) Negative (Negative); Ketones,Urine Negative (Negative); Protein,Urine Negative (Negative); Specific Gravity, Urine 1.025 (1.005-1.030); UTC Leukocyte Esterase,Urine 1+ (Negative); UTC Nitrate,Urine Negative (Negative); Urobilinogen,Urine 0.2 EU/dl (0.2)
[2024-03-30 10:21] VITALS: BP 145/93; PULSE 75; RESP 18; TEMP 36.9; O2SAT 98
== END 2024-03-30 10:21 | disposition home or self-care (01) ==
PROVIDERS: Emergency Provider Nurse Practitioner Family; PCP Nurse Practitioner Family
DX: N39.0 Urinary tract infection, site not specified (principal); B96.89 Other specified bacterial agents as the cause of diseases classified elsewhere; R35.0 Frequency of micturition; R30.0 Dysuria; M54.59 Other low back pain; H66.91 Otitis media, unspecified, right ear; R42 Dizziness and giddiness
CPT/HCPCS: 81003; 87086; 99212; 99214; G0463

== ENCOUNTER 2024-08-05 14:46 | Outpatient (CLI) | payer BC, SELFPAY ==
--- OUTSIDE RECORDS SUMMARY | 2024-08-05 14:48 | XMS_ITS ---
Author Organization [facility] Address [address] [place] [address] Care Team Providers Care Wire Web Worker Name Role Phone Erika Awad Unavailable [phone] Liz Tiwari Unavailable [phone] Allergies No Known Allergies Results Component Value Reference Range Notes Ivana/Bacterial Vaginosis, HANK (Aptima) Reviewed date:09/19/2023 04:56:28 PM Interpretation:Negative Performing Lab:MALINDA [facility] - [place]KKIE CLIA ID [id number], [address], [address], [place] [address], Director - Ana Hatch MD Notes/Report: Bacterial Vaginosis Negative Negative The Aptima BV assay is a real time NAAT TMA assay developed for use on the automated [place] system that detects and discriminates RNA markers from the Lactobacillus species group (L. gasseri, L. crispatus and L. jensenii), Gardnerella vaginalis, and Atopobium vaginae. The Aptima BV assay uses an algorithm for bacterial vaginosis based on detection of target organisms. Ivana species Negative Negative The CV Assay is a real time TMA assay developed for use on the automated [place] system that detects following Ivana species organisms (C. albicans, C. tropicalis, C. parapsilosis, C. dubliniensis), but the assay does not differentiate among C spp. Ivana glabrata Negative Negative Urine Dip Reviewed date:09/18/2023 09:03:51 AM Interpretation: Performing Lab: Notes/Report: Glucose galen Bilirubin neg Ketones neg Specific [place] 1.010 Blood neg pH 5.5 Protein neg Urobilinogen norm Nitrite neg Leukocytes neg REASON FOR VISIT Pelvic pain Medications Medication SIG (Take, Route, Frequency, Duration) Notes Start Date End Date Status NexIUM Active Potassium Chloride ER 10 MEQ Oral for 30 Days Active Propranolol HCl Acti ve Silver sulfADIAZINE 1 % MIX IN EQUAL PAR TS WITH VISCOUS LIDOCAINE AND APPLY TO AFFECTED AREA EVERY 3-4 HOURS DAILY NEEDED External for 25 Days Active Telmisartan-HCTZ 40-12.5 MG TAKE 1 TABLE T BY MOUTH ONCE DAILY Oral for 90 Days Active Levothyroxine Sodium Active Anastrozole Active Claritin Active Dexlansoprazole 60 MG TAKE 1 CAPSULE BY MOUTH ONCE DAILY Oral for 90 Days Active Flonase Active Michelle Active Social History Sex Assigned At : Social History Observation Description Sex Assigned At Female Vital Signs Blood pressure systolic 114 mm Hg 09/18/20 23 Blood pressure diastolic 80 mm Hg 023 Height 61 in 09/18/2023 Weight 202.2 lbs 09/18/2023 BMI 38.2 kg/m2 09/18/2023 Encounters Encounter Location Date Provider Diagnosis [facility] [address] [facility] [address] [place] [address] 09/18/2023 Liz Tiwari Pelvic pain R10.2 Assessments Encounter Date Diagnosis (ICD Code) Assessment Notes Treatment Notes Treatment Clinical Notes 09/18/2023 Pelvic pain (ICD-10 - R10.2) -New onset pelvic pain -Discussed etiologies including brush trimming machine setter, GI, MSK -S/p hysterectomy procedure 6 months [...] for review of symptoms Plan Of Treatment Next Appt Details Follow Up: 4 Weeks, Reason: Progress Notes * Leydi BROWNDOB:[birth year] (48 yo F)Acc No.[id number]:09/18/2023 Progress Note Patient:?Leydi BROWN Provider:?Liz Tiwari DO :1975???Age:48 Y???Sex:Female D ate:09/18/2023 Address:[facility] [address], [id number] Subjective: * Chief Complaints: * ???1. Pelvic pain. * HPI: ???General Health Maintenance:?Patient is a 48yo who presents with complaints of pelvic pain that started over the last 1-2 weeks. Reports that she is 6 months postop following hysterectomy with Dr. wAad. States that she has been experiencing pelvic aching with occasional pressure. She denies abnormal vaginal discharge or vaginal bleeding. States that she has had some vaginal irritation. Denies rash or lesions. She denies dyuria but report some increased freqeuncy with urination. Denies odor or hematuria. She denies fever or chills. Denies incontinence. No further complaints at this time. TVUS: the uterus is surgically absent, vaginal cuff appears WNL, right oary surgically absent, left ovary surgically absent, no free fluid or adnexal masses. * ROS:?Negative except noted in HPI. * Medical History:?Breast canc er, Hypertension, Thyroid disorder, Anxiety, Acid reflux, Migraine, Lympedema, Seasonal allergies. * Manager Radio History:?Last pap smear date?01/22/23.?Last mammogram date?05/2022 , BI-RADS Category 2 stage 2 breast ca.? control?none.? * OB History:?GP?:?2 ?Para:?2 * Surgical History:?bilateral mastectomy , C/S x 2 , tonsillectomy , Cholecystectomy , uterine ablation , TRH with BSO . * Hospitalization/Major Diagno stic Procedure:?surgery . * Family History:?Mother: diag nosed with Diabetes mellitus without mention of complication, type II or unspecified type, not stated as uncontrolled, Unspecified essential hypertension.?Father: diagnosed with Diabetes mellitus without mention of complication, type II or unspecified type, not stated as uncontrolled, Unspecified essential hypertension.? * Social History:?Denies. * Medications:?Taking Michelle , Taking Anastrozole , Taking Claritin , Taking Dexlansoprazole 60 MG Capsule Delayed Release TAKE 1 CAPSULE BY MOUTH ONCE DAILY Oral , Taking Flonase , Taking Levothyroxine Sodium , Taking NexIUM , Taking Potassium Chloride ER 10 MEQ Tablet Extended Release Oral , Taking Propranolol HCl , Taking Silver sulfADIAZINE 1 % Cream MIX IN EQUAL PARTS WITH VISCOUS LIDOCAINE AND APPLY TO AFFECTED AREA EVERY 3-4 HOURS DAILY NEEDED External , Taking Telmisartan-HCTZ 40-12.5 MG Tablet TAKE 1 TABLET BY MOUTH ONCE DAILY Oral , Medication List reviewed and reconciled with the patient * Allergies:?N.K.D.A. Objective: * Vitals:?BP:114/80mm Hg, Ht: 61 in, Wt:202.2lbs, BMI:38.2Index, Ht-cm: 154.94, Wt-k.72. * Examination: ???General Examination: ???Physical Examination Constitutional: A&Ox3. No apparent distress. Doing well. HEENT: Normocephalic, atraumatic. Neurological: Negative for sensory or motor deficit. Cardiovascular: No edema. Respiratory: Clear to auscultation bilaterally; unlabored breathing. Abdominal: nontender, soft, negative for guarding, rebound. Extremities: negative for tenderness. Skin: normal turgor; negative for rash or lesions. Psychiatric: normal affect, normal thought process, good insight, good judgment APPLICATION SUPPORT ENGINEER: Normal appearing external genitalia, normal urethra meatus without erythema, pink vaginal mucosa, vaginal cuff intact, no bleeding, no abnormal discharge. Assessment: * Assessment: 1.?Pelvic pain - R10.2 (Prim mansi)? Plan: * Treatment: ? Value Reference Range ?Glucose galen * ?Bilirubin neg * ?Ketones neg * ?Specific [place] 1.010 * ?Blood neg * ?pH 5.5 * ?Protein neg * ?Urobilinogen norm * ?Nitrite neg * ?Leukocytes neg ?Imaging: *US Pelvis Complete Transabdominal/Vaginal (Non-OB) (Ordered for 09/18/2023) (Performed Date - 09/18/2023) Clinical Notes: -New onset pelvic pain -Discussed etiologies including brush trimming machine setter, GI, MSK -S/p hysterectomy procedure 6 months -TVUS reviewed without 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, discussed with patient -Vaginitis swab collected -Urine culture sent today -Melchor follow up with results and treat as indicated -Advised on ibuprofen and tylenol for pain. -Discussed stool softener and simethicone for GI contribution to symptoms -Follow also with PCP for other etiology -Follow up in 4 weeks for review of symptoms?? * Procedure Codes:?31881 Urina lysis, by dip stick or tablet reagent for bilirubin, glucose, hemoglobin, ketones, leukocytes, nitrite, pH, protein, specific gravity, urobilinogen, any number of these constituents; non-automated, without microscopy * Follow Up:?4 Weeks * Billing Information: * Visit Code:? 36266 Office/Outpatient visit, est patient. * Procedure Codes:? 94467 Urinalysis, by dip stick or tablet reagent for bilirubin, glucose, hemoglobin, ketones, leukocytes, nitrite, pH, protein, specific gravity, urobilinogen, any number of these constituents; non-automated, without microscopy. * Sign off status: Completed Visit Status:?CHK (Check Out ) true * Provider:?Liz Tiwari DO Date:?09/18 Generated for Yuliana fierro/Anne/Louieitting on:?08/05/2024 02:48 PM EST
--- OUTSIDE RECORDS SUMMARY | 2024-08-05 14:48 | XMS_ITS | Patient Health Record ---
Author Organization [facility] Address [address] [place] [address] Care Team Providers Care Accounting Intern Name Role Phone Erika Awad Unavailable [phone] Liz Tiwari Unavailable [phone] Allergies No Known Allergies Results Component Value Reference Range Notes Ivana/Bacterial Vaginosis, HANK (Aptima) Reviewed date:09/19/2023 04:56:28 PM Interpretation:Negative Performing Lab:Ashia PETTY [facility] - [place]IE CLIA ID [id number], [address], [address], [place] [address], Director - Ana Hatch MD Notes/Report: Bacterial Vaginosis Negative Negative The Aptima BV assay is a real time NAAT TMA assay developed for use on the automated [place] system that detects and discriminates RNA markers from the Lactobacillus species group (L. gasseri, L. crispatus and L. jensenii), Gardnerella vaginalis, and Atopobium vaginae. The Aptima BV assay uses an algorithm for bacterial vaginosis based on detection of target organisms. Ivana species Negative Negative The CV Assay is a real time TMA assay developed for use on the automated [place] system that detects following Ivana species organisms (C. albicans, C. tropicalis, C. parapsilosis, C. dubliniensis), but the assay does not differentiate among C spp. Ivana glabrata Negative Negative Urine Dip Reviewed date:09/18/2023 09:03:51 AM Interpretation: Performing Lab: Notes/Report: Glucose galen Bilirubin neg Ketones neg Specific [place] 1.010 Blood neg pH 5.5 Protein neg Urobilinogen norm Nitrite neg Leukocytes neg *US Pelvis Complete Transabd ominal/Vaginal (Non-OB) Reviewed date:09/19/2023 03:15:15 PM Interpretation: Performing Lab: Notes/Report: [facility] Transvaginal Pelvic Study Report Name: AUGUSTINE BROWN Accession/Encounter No:[id number] : 1975 Age: 48 Gender: F Study Date: Sep 18, 2023 Study Time: 08:36 AM Reading Group: Erika Awad MD Referring Group: Liz Tiwari DO Ordering Phys: Liz Tiwari DO Catalyst Unit Operator: Claudia Cummins RDMS Equipment: Affiniti 30 Study [...] Studycast AUGUSTINE COPPAGE 2023-09-18 Page [address] [place] [address] Center , [facility] ___ Transvaginal Pelvic Study Report ___ Name: AUGUSTINE CHARLESPANERI Accession/Encounter No:[id number] : 1975 Age: 48 Gender: F Study Date: Sep 18, 2023 Study Time: 08:36 AM Reading Group: Rosio Awad MD Referring Group: Liz Tiwari DO Ordering Phys: Brittany Tiwari DO Catalyst Unit Operator: Valeria Cummins RDMS Equipment: Affiniti 30 ___ Study Quality: Good Indications: Pelvic pain and pressure ___ A complete pelvic transvaginal ultrasound was performed. ___ Findings: A transvaginal exam was performed. The uterus is surgically absent. The right ovary is surgically absent. The left ovary is surgically absent. Conclusions: The uterus is surgically absent. Vaginal cuff appears WNL. Right ovary surgical ly absent. Left ovary surgically absent. No free fluid or adnexal masses noted. Approved By: Sam Awad MD Approved at: [facility]20[facility] 07:46 PM EST Electronically Vandana d on Studycast [employer] 2023-09-18 Page 1 of 1 KIT Reviewed date:09/21/2023 01:59:56 PM Interpretation:sensitive to macrobid Performing Lab: Notes/Report: Ampicillin Susc Islt <=2 Ampicillin+Sulbac Susc Islt <=2 ceFAZolin Susc Islt <=4 Cefepime Susc Islt <=1 cefTAZidime Susc Islt <=1 cefTRIAXone Susc Islt <=1 Gentamicin Susc Islt <=1 levoFLOXacin Susc Islt <=0.12 Nitrofurantoin Susc Islt <=16 Pip+Tazo Susc Islt <=4 TMP SMX Susc Islt <=20 Lab specim ens received at a [facility].?See result details for the performing location information. Ampicillin Susc Islt >=32 Ampicillin+Sulbac Susc Islt >=32 ceFAZolin Susc Islt >=64 Cefepime Susc Islt <=1 cefTAZidime Susc Islt 16 cefTRIAXone Susc Islt 16 Gentamicin Susc Islt <=1 levoFLOXacin Susc Islt <=0.12 Nitrofurantoin Susc Islt <=16 Pip+Tazo Susc Islt <=4 TMP SMX Susc Islt <=20 Lab specim ens received at a [facility].?See result details for the performing location information. [...] history of primary malignant neoplasm of breast (482214946) Personal history of malignant neoplasm of breast (Z85.3) Active confirmed Problem Fibroid (3000808695) Fibroid (D21.9) Active confirmed Vital Signs Blood pressure diastolic 76 mm Hg 03/12/2024 Height 61 in 03/12/2024 Blood pressure systolic 128 mm Hg 03/12/2024 Weight 201.6 lbs 03/12/2024 BMI 38.09 kg/m2 03/12/2024 Encounters Encounter Location Date Provider Diagnosis [facility] [address] [place] [address] 09/17/2023 Erika Awad [facility] [address] [place] [address] 09/17/2023 Liznilesh Tiwari [facility] [address] [place] [address] 09/21/2023 Liz [place] [facility] [address] [place] [address] 09/18/2023 Lizserina Tiwari Pelvic pain R10.2 [facility] [address] [place] [address] 03/12/2024 Erika Awad Talent Analyst exam without 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 Z01.419 and Encounter for screening mammogram for malignant neoplasm of breast Z12.31 [facility] [address] [place] [address] 09/18/2023 Liznilesh Tiwari Pelvic pain R10.2 Assessments Encounter Date Diagnosis (ICD Code) Assessment Notes Treatment Notes Treatment Clinical Notes 09/18/2023 Pelvic pain (ICD-10 - R10.2) 09/18/2023 Pelvic pain (ICD-10 - R10.2) -New onset pelvic pain -Discussed etiologies including certified paralegal, GI, MSK -S/p hysterectomy procedure 6 months [...] 4 weeks for review of symptoms 03/12/2024 Talent Analyst exam without 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 (ICD-10 - Z01.419) 03/12/2024 Encounter for screening mammogram for malignant neoplasm of breast (ICD-10 - Z12.31) Plan Of Treatment No Information Insurance Providers Payer Name Payer Address Payer Phone Subscriber Number Group Number Insured Name Patient Relationship to Insured Coverage Start Date Coverage End Date Angie PPO [address] [place] [address] [phone] [id number] Augustine Brown Self - patient is the insured Medical (General) History Medical History History ICD Code breast cancer hypertension thyroid disorder anxiety acid reflux migraine lympedema seasonal allergies Surgical History Surgery Date(Month/Year) TRH with BSO uterine ablation Cholecystectomy tonsillectomy C/S x 2 bilateral mastectomy Hospitalization History Reason Date(Month/Year) surgery
--- OUTSIDE RECORDS SUMMARY | 2024-08-05 14:48 | XMS_ITS ---
Author Organization [facility] Address [address] [place] [address] Care Team Providers Care Licensed Nuclear Operator Name Role Phone Erika Awad Unavailable [phone] Allergies No Known Allergies REASON FOR VISIT Annual Medications Medication SIG (Take, Route, Frequency, Duration) Notes Start Date End Date Status Rosuvastatin Calcium 10 MG 1 tablet Oral ly Once a day Active Desmopressin Acetate Active Anastrozole Active Claritin Active Dexlansoprazole 60 MG TAKE 1 CAPSULE BY MOUTH ONCE DAILY Oral for 90 Days Active Cranberry Active Biotin Active Vitamin D3 Active B12 Active Sertraline HCl 25 MG 1 tablet Orally Onc e a day Active Propranolol HCl Acti ve Methenamine Hippurate 1 GM 1 tablet Oral ly Twice a day Active Telmisartan-HCTZ 40-12.5 MG TAKE 1 TABLE T BY MOUTH ONCE DAILY Oral for 90 Days Active asprin Active NexIUM Active Flonase Active Levothyroxine Sodium Active Social [...] ast year? No Points 0 Interpretation Negative Vital Signs Blood pressure systolic 128 mm Hg 03/12/20 24 Blood pressure diastolic 76 mm Hg 024 Height 61 in 03/12/2024 Weight 201.6 lbs 03/12/2024 BMI 38.09 kg/m2 03/12/2024 Encounters Encounter Location Date Provider Diagnosis [facility] [address] [place] [address] 03/12/2024 Erika Awad Financial Aid Officer exam without 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 Z01.419 and Encounter for screening mammogram for malignant neoplasm of breast Z12.31 Assessments Encounter Date Diagnosis (ICD Code) Assessment Notes Treatment Notes Treatment Clinical Notes 03/12/2024 Financial Aid Officer exam without 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 (ICD-10 - Z01.419) 03/12/2024 Encounter for screening mammogram for malignant neoplasm of breast (ICD-10 - Z12.31) Plan Of Treatment No Information Progress Notes * Leydi BROWNDOB:[birth year] (49 yo F)Acc No.[id number]:03/12/2024 Progress Note Patient:?Leydi BROWN Provider:?Erika Awad MD :1975???Age:49 Y???Sex:Female D ate:03/12/2024 Address:[address] [place] [address], [id number] Subjective: * Chief Complaints: * ???Annual * HPI: ???Annual:?49 year old female presents with c/o Annual exam, post hysterectomy.? * Medical History:? * Financial Aid Officer History:?Last Mammogram Date:?05/2022 , BI-RADS Category 2 stage 2 breast ca.? control (Historical)?none.?Last Pap Smear/HPV Date (Historical)?01/22/23.? * OB History:?GP?:?2 ?Para:?2 * Surgical History:?bilateral mastectomy C/S x 2 tonsillectomy Cholecystectomy uterine ablation TRH with BSO * Hospitalization/Major Diagno stic Procedure:?surgery * Family History:?Mother: diag nosed with Diabetes mellitus without mention of complication, type II or unspecified type, not stated as uncontrolled, Unspecified essential hypertension.?Father: diagnosed with Diabetes mellitus without mention of complication, type II or unspecified type, not stated as uncontrolled, Unspecified essential hypertension.? * Social History:?Tobacco Use:?Tobacco Use/Smoking?Are you a?nonsmoker ???Drugs/Alcohol:?Drugs?Have you used drugs other than those for medical reasons in the past 12 months??No ?Alcohol Screen?Did you have a drink containing alcohol in the past year??No ?Points?0 ?Interpretation?Negative ???Denies. * Medications:?TakingAnastrozo le asprin B12 Biotin Claritin Cranberry Desmopressin Acetate Dexlansoprazole 60 MG Capsule Delayed Release TAKE 1 CAPSULE BY MOUTH ONCE DAILY Oral Flonase Levothyroxine Sodium Methenamine Hippurate 1 GM Tablet 1 tablet Orally Twice a day NexIUM Propranolol HCl Rosuvastatin Calcium 10 MG Tablet 1 tablet Orally Once a day Sertraline HCl 25 MG Tablet 1 tablet Orally Once a day Telmisartan-HCTZ 40-12.5 MG Tablet TAKE 1 TABLET BY MOUTH ONCE DAILY Oral Vitamin D3 Taking Anastrozole Taking asprin Taking B12 Taking Biotin Taking Claritin Taking Cranberry Taking Desmopressin Acetate Taking Dexlansoprazole 60 MG Capsule Delayed Release TAKE 1 CAPSULE BY MOUTH ONCE DAILY Oral Taking Flonase Taking Levothyroxine Sodium Taking Methenamine Hippurate 1 GM Tablet 1 tablet Orally Twice a day Taking NexIUM Taking Propranolol HCl Taking Rosuvastatin Calcium 10 MG Tablet 1 tablet Orally Once a day Taking Sertraline HCl 25 MG Tablet 1 tablet Orally Once a day Taking Telmisartan-HCTZ 40-12.5 MG Tablet TAKE 1 TABLET BY MOUTH ONCE DAILY Oral Taking Vitamin D3 DiscontinuedMacrobid(Nitrofurantoin Monohyd Macro) 100 MG Capsule 1 capsule with food Orally every 12 hrs Medication List reviewed and reconciled with the patientDiscontinued Macrobid(Nitrofurantoin Monohyd Macro) 100 MG Capsule 1 capsule with food Orally every 12 hrs Medication List reviewed and reconciled with the patient * Allergies:?N.K.D.A.yes[Aller gies Verified] Objective: * Vitals:?BP:128/76mm Hg, Ht: 61 in, Wt:201.6lbs, BMI:38.09Index, Ht-cm: 154.94, Wt-k.44. * Examination: ???General Examination: ?GENERAL APPEARANCE:?Well developed, well nourished, alert in no acute distress.?NEURO/PSYCH:?Oriented to person, place, and time.? Mood pleasant, normal affect.?CARDIOPULMONARY:?Respiratory effort is even and unlabored.?ABDOMINAL/GASTROINTESTINAL:?Abdomen nontender, no masses palpated.?Breast Examination: ?BREASTS:?Surgically absent.?AXILLARY LYMPH NODES:?No lymphadenopathy.?Genitourinary - Female: ?EXTERNAL GENITALIA:?Normal appearance for age, no erythema or skin lesions present.?URETHRA/URETHRAL MEATUS:?Normal in appearance, nontender without mass effect.?BLADDER:?Normal and nontender to palpation.?VAGINA:?Normal appearance for age, no significant discharge, lesions, or masses present.?CERVIX:?Surgically absent.?UTERUS:?Surgically absent.?ADNEXA:?No masses or tenderness bilaterally.?PERINEUM:?Normal in appearance without lesion.?PELVIC LYMPH NODES:?No lymphadenopathy.?limited by body habitus. ???School Crossing Guard: ?School Crossing Guard Status?MJONES.? Assessment: * Assessment: 1.?Financial Aid Officer exam without 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 - Z01.419 (Primary)?2.?Encounter for screening mammogram for malignant neoplasm of breast - Z12.31? Plan: * Treatment: * Procedure Codes:?70626 Pelvi c examination [List separately in addition to code for primary procedure] * Preventive Medicine:? ??Counseling:?Routine Preventative Care:?Reviewed ACOG guidelines for preventative exams and cervical cancer screenings. Preventative health guidelines discussed regarding breast cancer, colon cancer, and osteoporosis screening and prevention as appropriate. Counseled on safe sex practices including control and prevention of sexually transmitted infections as appropriate.?BMI care goal follow-up plan:?BMI management provided?Yes ?Discussed importance of healthy BMI?Yes ?Smoking:?Type of Tobacco Use Cessation Counseling provided?Counseled if indicated * Billing Information: * Visit Code:? 25112 Est Pt Annual 40-64 yr old. * Procedure Codes:? 86674 Pelvic examination [List separately in addition to code for primary procedure]. * Sign off status: Completed Visit Status:?CHK (Check Out ) true * Provider:?Erika Awad MD Date:?03/12 Generated for Shikhai vadim/Anne/eTransmitting on:?08/05/2024 02:48 PM EST History and Physical Notes * Examination Category Sub-Category Detail Notes Genitourinary Examination - Female VAGINA: Normal appearance for age, no significant discharge, lesions, or masses present CERVIX: Surgically absent UTERUS: Surgically absent BLADDER: Normal and nontender to palpation ADNEXA: No masses or tendern ess bilaterally EXTERNAL GENITALIA: Normal appearance fo r age, no erythema or skin lesions present URETHRA/URETHRAL MEATUS: Normal in appea manuela, nontender without mass effect PERINEUM: Normal in appearance without lesion PELVIC LYMPH NODES: No lymphadenopathy General Examination GENERAL APPEARANCE: Well dev eloped, well nourished, alert in no acute distress NEURO/PSYCH: Oriented to person, place, and time. Mood pleasant, normal affect CARDIOPULMONARY: Respiratory effort i s even and unlabored ABDOMINAL/GASTROINTESTINAL: Abdomen nont kwame, no masses palpated School Crossing Guard School Crossing Guard Status MJONES Breast Examination BREASTS: Surgically ab sent AXILLARY LYMPH NODES: No lymphadenopathy
--- OUTSIDE RECORDS SUMMARY | 2024-08-05 14:48 | XMS_ITS ---
Author Organization [facility] Address [address] [place] [address] Care Team Providers Care Bobbin Collector Name Role Phone Erika Awad Unavailable [phone] Liz Tiwari Unavailable [phone] Medications Medication SIG (Take, Route, Fr equency, Duration) Notes Start Date End Date Status Macrobid 100 MG 1 capsule with food Orally every 12 hrs for 7 days 09/21/2023 Active Social History Sex Assigned At : Social History Observation Description Sex Assigned At Female Encounters Encounter Location Date Provider Diagnosis [facility] [address] [facility] [address] [place] [address] 09/21/2023 Liz Tiwari Plan Of Treatment Medication Medication Name Sig Start Date Stop Date Notes Macrobid 100 MG 1 capsule with food Orally every 12 hrs for 7 days 09/21/2023 Progress Notes * Leydi BROWNDOB:[birth year] (48 yo F)Acc No.[id number]:09/21/2023 Patient:?Leydi BROWN :1975???Age:48 Y???Sex:Female Address:[address], [place] [address] * Refills? Start Macrobid Capsule, 100 MG, Orally, 14, 1 capsule with food, every 12 hrs, 7 days, Refills=0 * true * Date:? Generated for Yuliana fierro/Anne/Louieitting on:?08/05/2024 02:48 PM EST
--- OUTSIDE RECORDS SUMMARY | 2024-08-05 14:49 | XMS_ITS ---
Care Plan - [facility] Created on: August 05, 2024 Leydi Brown : 1975 Sex: Female Author Organization [facility] Address [address] [place] [address] Phone Care Team Providers Care Configuration Management Analyst Name Role Phone Saul Stephens PA-C [phone]
--- OUTSIDE RECORDS SUMMARY | 2024-08-05 14:49 | XMS_ITS ---
Author Organization [facility] Address [address] [place] [address] Phone Care Team Providers Care Corporate Planner Name Role Phone Saul Stephens PA-C [phone] Plan of Treatment No Plan of Treatment Recorded Assessments Includes: Assessments for all patient encounters No Assessments Recorded Medical Equipment - Implanted Devices Includes: Current and historical Devices No Medical Equipment Recorded Medications Administered Includes: Administered Medications in patient's chart No Administered Medications Recorded Results Includes: Results from 08/05/2023 through 08/05/2024 No Results Recorded For Specified Dates History [...] diamond Dates 1 - [facility] [id number] Leydi Brown Self Clinical Notes Includes: Signed Clinical Notes starting from 09/14/2022 No Clinical Notes Recorded
[2024-08-15 11:29] LABS: Narcolepsy DQA1*01:02 Positive (.); Narcolepsy DQB1*06:02 Positive (.)
== END 2024-08-05 23:59 | disposition home or self-care (01) ==
LOC: LAB 14:47
PROVIDERS: PCP Internal Medicine Adolescent Medicine; Visit Provider Specialist
DX: G47.10 Hypersomnia, unspecified (principal)
CPT/HCPCS: 36415; 81383

== ENCOUNTER 2024-08-17 08:00 | Emergency (ER) | payer BC, SELFPAY ==
[2024-08-17 08:18] VITALS: BP 124/80; PULSE 80; RESP 18; TEMP 37.4; O2SAT 95; BMI 36.7
--- NOTE | 2024-08-17 08:22 | ED_ITS ---
Discharge Plan Disposition Patient Disposition: Home, Self-Care Condition: Good Prescriptions Prescriptions: New azithromycin [Zithromax] 250 mg tablet 250 mg PO UD DOSE PK Qty: 6 0RF Rx Instructions: Take two (2) tablets today, then one (1) tablet days #2 thru #5 benzonatate 100 mg capsule 100 mg PO TIDP PRN (Reason: Cough) Qty: 30 0RF methylprednisolone 4 mg Tablets,Dose Pack 4 mg PO DIRECTED 6 Days Qty: 21 0RF Rx Instructions: Take 1 pack as directed for 6 days No Action biotin 5,000 mcg tablet, sublingual 5,000 mcg sublingual DAILY omega-3 fatty acids 500 mg capsule 500 mg PO BID telmisartan-hydrochlorothiazid 40-12.5 tablet 1 tab PO DAILY propranolol 20 mg tablet 20 mg PO DAILY Patient Comments: TAKE 1 TABLET BY MOUTH AT BEDTIME levothyroxine 25 mcg tablet 50 mcg PO DAILY Patient Comments: TAKE 1 TABLET BY MOUTH ONCE DAILY anastrozole 1 mg tablet 1 mg PO DAILY Patient Comments: TAKE 1 TABLET BY MOUTH ONCE DAILY sertraline 25 mg tablet 25 mg PO DAILY Patient Comments: TAKE 1 TABLET BY MOUTH ONCE DAILY rosuvastatin 10 mg tablet 10 mg PO DAILY Patient Comments: TAKE 1 TABLET BY MOUTH ONCE DAILY methenamine hippurate 1 gram tablet See Rx Instructions .ROUTE .COMPLEX Patient Comments: TAKE 1 TABLET BY MOUTH TWICE DAILY WITH MEALS Rx Instructions: TAKE 1 TABLET BY MOUTH TWICE DAILY WITH MEALS aspirin [Aspir-81] 81 mg Tablet,Delayed Release (Dr/Ec) 81 mg PO DAILY esomeprazole magnesium [Nexium] 40 mg Capsule,Delayed Release(Dr/Ec) 40 mg PO DAILY fluticasone propionate [Flonase] 50 mcg/actuation Kimberly,Suspension See Rx Instructions .ROUTE .COMPLEX Rx Instructions: see rx instructions Referrals Follow up/Referrals: Herbert Hair MD [Primary Care Provider] - See instructions Activity Restrictions/Add. Instructions Additional Instructions/Restrictions: Drink plenty of fluids. Take tylenol or ibuprofen for pain or fever. Take the medications as directed. Follow up with your regular doctor. GO TO THE ER FOR ANY WORSENING SYMPTOMS Clinical Impressions Clinical Impression: Pharyngitis Sinusitis Qualifiers: Sinusitis location: unspecified location Chronicity: unspecified Qualified Code(s): J32.9 - Chronic sinusitis, unspecified Instructions Patient Instructions: Sinusitis, DI for Sinusitis Print Language Print Language: Syriac Discharge ED Provider: Herbie Womack [facility] HPI General Stated complaint: sore throat, congestion and cough Mode of Arrival: Ambulatory Source of Information: Patient Time Seen by Provider: 08/17/24 08:22 Description of Symptoms (Recalled from Triage Doc. by RN): SORE THROAT, CONGESTION, COUGH HEENT Symptoms (Recalled from RN notes): Yes Resp Symptoms (Recalled from RN notes): Yes Skin Symptoms (Recalled from RN notes): No MS Symptoms (Recalled from RN notes): No Functional Status (Recalled from RN notes): WNL Related Data Home Medications ?Medication ?Instructions ?Recorded ?Confirmed telmisartan 40 1 tab PO DAILY blood pressure 05/02/18 08/17/24 mg-hydrochlorothiazide 12.5 mg tablet propranolol 20 mg tablet 20 mg PO DAILY . 11/05/22 08/17/24 anastrozole 1 mg tablet 1 mg PO DAILY 01/20/24 08/17/24 methenamine hippurate 1 gram tablet See Rx Instructions .Route .COMPLEX 01/20/24 08/17/24 rosuvastatin 10 mg tablet 10 mg PO DAILY 01/20/24 08/17/24 sertraline 25 mg tablet 25 mg PO DAILY 01/20/24 08/17/24 aspirin 81 mg tablet,delayed 81 mg PO DAILY 03/30/24 08/17/24 release esomeprazole magnesium 40 mg 40 mg PO DAILY 03/30/24 08/17/24 capsule,delayed release (Nexium) fluticasone propionate 50 See Rx Instructions .Route .COMPLEX 03/30/24 08/17/24 mcg/actuation nasal spray,suspension biotin 5,000 mcg sublingual tablet 5,000 mcg sublingual DAILY 05/26/24 08/17/24 levothyroxine 25 mcg tablet 50 mcg PO DAILY . 05/26/24 08/17/24 omega-3 fatty acids 500 mg capsule 500 mg PO BID 05/26/24 08/17/24 Previous Rx's ?Medication ?Instructions ?Recorded azithromycin 250 mg tablet 250 mg PO UD DOSE PK #6 tabs 08/17/24 (Zithromax) benzonatate 100 mg capsule 100 mg PO TIDP PRN Cough #30 caps 08/17/24 methylprednisolone 4 mg tablets in 4 mg PO DIRECTED 6 days #21 tabs 08/17/24 a dose pack Allergies Allergy/AdvReac Type Severity Reaction Status Date / Time No Known Allergies Allergy Verified 05/26/24 15:03 Worker's Comp Is this a Worker's Comp case?: No [facility] Disclaimer: The information contained in this section may have been updated after the patient was seen, as this information can be updated by other users. Medical History (Updated 08/17/24 @ 08:46 by Herbie Womack APRN) Fatigue Sleep-disordered breathing Snoring Excessive daytime sleepiness Hyperlipidemia Thyroid disease Cancer Anxiety Hypertension Surgical History (Updated 05/26/24 @ 15:12 by Latisha Barr) History of hysterectomy History of cholecystectomy History of tonsillectomy Family History (Updated 05/26/24 @ 15:19 by Latisha Barr) Other Anxiety Coronary artery disease Daytime sleepiness Diabetes Hypertension Narcolepsy Obesity Social History Smoking Status: Never smoker alcohol intake: never substance use type: denies use current occupational status: employed Travel in the last 8 weeks: None household members: spouse housing: house current occupational exposures/hazards: Yes caffeine: No ROS Obtained: Yes All systems reviewed & no additional complaints except as documented Constitutional Constitutional: Reports chills and Reports fever(s) Eyes Eyes: Denies eye discharge ENT Ears, Nose, Mouth, and Throat: Reports as per HPI Cardiovascular Cardiovascular: Denies chest pain Respiratory Respiratory: Denies chest congestion and Reports cough Gastrointestinal Gastrointestingal: Reports nausea; Denies abdominal pain, constipation, cramping, diarrhea or vomiting Musculoskeletal Musculoskeletal: Denies arthralgias Integumentary/Breasts Skin/Breast: Denies rash Neurologic Neurologic: Denies paresthesias Physical Exam General General appearance: alert and in no apparent distress Head Head exam: atraumatic, normocephalic and normal inspection Eye Eye exam: Present normal appearance, PERRL and EOMI ENT ENT exam: Present mucous membranes moist and normal external ear exam Expanded ENT Exam TM/Canal exam: Bilateral TM: erythema and bulging Nose exam: Absent sinus tenderness Mouth exam: Present normal external inspection; Absent drooling Teeth exam: Present normal inspection Throat exam: Present tonsillar erythema, tonsillomegaly and tonsillar exudate Neck Neck exam: Present normal inspection, full ROM and trachea midline; Absent tenderness, meningismus or lymphadenopathy Chest Chest inspection: Present normal inspection and symmetric chest wall rise; Absent tenderness Respiratory Respiratory exam: Present normal lung sounds bilaterally; Absent respiratory distress, wheezes, stridor or accessory muscle use Cardiovascular Cardiovascular exam: Present regular rate and normal rhythm; Absent systolic murmur or diastolic murmur Abdominal Exam Abdominal exam: Present soft and normal bowel sounds; Absent distention, tenderness, guarding, rebound or rigidity Extremities Exam Extremities exam: Present normal inspection and normal capillary refill; Absent calf tenderness Back Exam Back exam: Present normal inspection and full ROM; Absent tenderness, CVA tend erness (R) or CVA tenderness (L) Neurological Exam Neurological exam: Present alert, oriented X3 and CN II-XII intact Psychiatric Psychiatric exam: Present normal affect and normal mood Skin Skin exam: Present warm, dry, intact and normal color Medical Decision Making Medical Records Medical records reviewed: No I reviewed the patient's medical records. Screening: Per USPSTF and CDC recommendations, given the prevalence of disease in our region, it is our hospital?s policy to screen for HIV and viral Hepatitis for all patients aged 18 and over and those with ongoing risk factors. Jarerd Inquiry Pt receiving controlled substance: No Vital Signs: 08/17/24 08:18 Temperature 99.3 F Temperature Source Oral Pulse Rate [Left Radial] 80 Respiratory Rate 18 Blood Pressure [Left Arm] 124/80 Blood Pressure Mean [Left Arm] 94 02 Sat by Pulse Oximetry 95
[2024-08-17 08:23] LABS: UTC Strep Screen (Rapid) Negative (Negative)
[2024-08-17 08:53] VITALS: BP 124/80; PULSE 80; RESP 18; TEMP 37.4
--- OUTSIDE RECORDS SUMMARY | 2024-08-17 15:47 | XMS_ITS | Encounter Summary ---
Author Organization [facility] Address [address] [place] [address] Care Team Providers Care Claim Investigator Name Role Phone Herbert Hair MD Primary Care Provider [phone] Reason for Visit * Reason Comments Med Refill Encounter Details Date Type Department Care Team (Late st Contact Info) Description 03/27/2024 Refill [facility] [address] [facility] [address] [place] [phone] Hilda Jarvis, UNDERGROUND PRODUCTION FOREPERSON [address] [facility] [place] [address] Malignant neoplasm of lower-inner quadrant of left breast in female, estrogen receptor positive (Primary Dx) Social History Tobacco Use Types Packs/Day Years Used Date Smoking Tobacco: Never Passive Smoke Exposure: Never Smokeless Tobacco: Never Alcohol Use Standard Drinks/Week Comments Never 0 (1 standard drink = 0.6 oz pur e alcohol) AUDIT-C Answer Date Recorded Q1: How often do you have a drink containing alcohol? Never 07/20/2023 Q2: How many drinks containi ng alcohol do you have on a typical day when you are drinking? Patient does not drink Q3: How often do you have si x or more drinks on one occasion? Never 07/20/2023 PHQ-2 Answer Date Recorded Retired PHQ-9: Brief Depression Severity Measure Score 0 10/26/2022 Abuse Screen Answer Date Recorded Feels Unsafe at Home or Work/School no 07/20/2023 Feels Threatened by Someone no 07/02 Does Anyone Try to Keep You From Having Contact with Others or Doing Things Outside Your Home? no 07/20/2023 Physical Signs of Abuse Present no 07/20/2023 Housing Stability Answer Date Recorded Current Living Arrangements home 07/02 Potentially Unsafe Housing Conditions Not on sreedhar e 07/20/2023 Family and Community Support Answer Jesse e Recorded Help with Day-to-Day Activities Not on file 07/08/2023 Lonely or Isolated Not on file 07/08/2023 Employment Answer Date Recorded Do you want help finding or keeping work or a gideon b? Not on file 07/08/2023 Disabilities Answer Date Recorded Difficulty Concentrating, Remembering or Making Decisions no 07/20/2023 Difficulty Managing Errands Independently no 07/20/2023 Education Answer Date Recorded Help with school or training? Not on file Preferred Language Solomon Islander 07/20/2023 PHQ-2 Answer Date Recorded Retired PHQ-9: Brief Depression Severity Measure Score 1 10/05/2023 Comments No Sex and Gender Information Value Date Recorded Sex Assigned at Not on file Legal Sex Female 10:43 AM EDT Gender Identity Not on file Sexual Orientation Not on file documented as of this encounter Plan of Treatment Upcoming Encounters Date Type Department Care Team (Late st Contact Info) Description 09/18/2024 3:30 PM EST Office Visit [facility] [address] [facility] [address] [place] [phone] Bre Crenshaw MD [address] [facility] [address] [place] [id number] 12/31/2024 9:00 AM EDT Office Visit [facility] UROLOGY [address] 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
--- OUTSIDE RECORDS SUMMARY | 2024-08-17 15:47 | XMS_ITS | Encounter Summary ---
Author Organization [facility] Address [address] [place] [address] Care Team Providers Care Stripper Latex Name Role Phone Herbert Hair MD Primary Care Provider [phone] Reason for Visit * Reason Onset Date Comments Appointment 04/29/2024 Encounter Details Date Type Department Care Team (Late st Contact Info) Description 04/29/2024 Telephone [facility] UROLOGY [address] [place] [address] eLn Reese MD [address] [facility] [address] [place] [address] Appointment Social History Tobacco Use Types Packs/Day Years [...] or training? Not on file Preferred Language Brazilian 07/20/2023 PHQ-2 Answer Date Recorded Retired PHQ-9: Brief Depression Severity Measure Score 1 10/05/2023 Comments No Sex and Gender Information Value Date Recorded Sex Assigned at Not on file Legal Sex Female 10:43 AM EDT Gender Identity Not on file Sexual Orientation Not on file documented as of this encounter Miscellaneous Notes * Telephone Encounter - Rosangela Parks RegSched Rep - 04/30/2024 3:05 PM EDT PT needed to reschedule. Spoke to Jannette. debbie original appt. * Telephone Encounter - Denia Lau RegSched Rep - 04/30/2024 10:14 AM EDT Relay LVM for PT to reschedule her 05/05/[address] Reese per her request. Office does not have an openings until the first week in June. HUB - ok to schedule next available if PT still wishes to reschedule. * Telephone Encounter - Jorge Hart RegSched Rep - 04/29/2024 2:41 PM EDT Caller: AUGUSTINE COPPAGE Relationship: SELF Best call back number: [phone] (home) What is the best time to reach you: ANY Who are you requesting to speak with (clinical staff, provider, specific staff member): DR REESE OR STAFF Do you know the name of the person who called: PT CALLED What was the call regarding: PT HAS APPT ON 05/05/24 AND IS WANTING TO CHANGE THE APPT. THE HUB NEXT APPT IS MID AND PT WOULD LIKE TO BE SOONER IF POSSIBLE. PLEASE CALL PT BACK TO DISCUSS. THANK YOU. documented in this encounter Plan of Treatment Upcoming Encounters Date Type Department Care Team (Late st Contact Info) Description 09/18/2024 3:30 PM EST Office Visit [facility]EMAT[facility] & ONCOLOGY [address] [facility] [address] [place] [phone] Bre Crenshaw MD [address] [facility] [address] [place] [address] 12/31/2024 9:00 AM EDT Office Visit [facility] UR[facility] [address] [facility] [address] [place] [address] Oralia Saha APRN [address] [facility] [address] [place] [address] 05/12/2025 1:45 PM EDT Office Visit [facility] CARDIOLOGY [address] [facility] [address] [place] [address] Obed Woodard MD [address] [facility] [address] [place] [address] documented as of this encounter Visit Diagnoses Not on filedocumented in this encounter Additional Health Concerns Infection Onset Date Last Indicated Resolved Time MRSA 07/20/2023 07/20/2023 Assessment Noted Time PHQ-2 Depression Total Score: 1 10/05/19 24 8:56 AM EST documented as of this encounter Care Teams Stripper Latex Relationship Specialty Start Date End Date Herbert Hair MD [address] [facility] [address] [place] [address] PCP - General Adolescent Medicine 03/03/22 documented as of this encounter
--- OUTSIDE RECORDS SUMMARY | 2024-08-17 15:47 | XMS_ITS ---
Author Organization [facility] Address [address] [place] [address] Care Team Providers Care Lining Mechanic Name Role Phone Erika Awad Unavailable [phone] Liz Tiwari Unavailable [phone] Allergies No Known Allergies Results Component Value Reference Range Notes Urine Dip Reviewed date:09/18/2023 09:03:51 AM Interpretation: Performing Lab: Notes/Report: Glucose galen Bilirubin neg Ketones neg Specific [place] 1.010 Blood neg pH 5.5 Protein neg Urobilinogen norm Nitrite neg Leukocytes neg Ivana/Bacterial Vaginosis, HANK (Aptima) Reviewed date:09/19/2023 04:56:28 PM Interpretation:Negative Performing Lab:[facility] PETTY [facility] - NIKKIE CLIA ID [id number], [address], [address], [place] [address], Director - Ana Hatch MD Notes/Report: Bacterial Vaginosis Negative Negative The Aptima BV assay is a real time NAAT TMA assay developed for use on the automated Wantagh system that detects and discriminates RNA markers from the Lactobacillus species group (L. gasseri, L. crispatus and L. jensenii), Gardnerella vaginalis, and Atopobium vaginae. The Aptima BV assay uses an algorithm for bacterial vaginosis based on detection of target organisms. Ivana species Negative Negative The CV Assay is a real time TMA assay developed for use on the automated Wantagh system that detects following Ivana species organisms (C. albicans, C. tropicalis, C. parapsilosis, C. dubliniensis), but the assay does not differentiate among C spp. Ivana glabrata Negative Negative REASON FOR VISIT Pelvic pain Medications Medication [...] 09/18/2023 Encounters Encounter Location Date Provider Diagnosis [facility] [address] [facility] [address] [place] [address] 09/18/2023 Liz Tiwari Pelvic pain R10.2 Assessments Encounter Date Diagnosis (ICD Code) Assessment Notes Treatment Notes Treatment Clinical Notes 09/18/2023 Pelvic pain (ICD-10 - R10.2) -New onset pelvic pain -Discussed etiologies including air plant engineer, GI, MSK -S/p hysterectomy procedure 6 months [...] * Leydi BROWNDOB:[birth year] (48 yo F)Acc No.[id number]:09/18/2023 Progress Note Patient:?Leydi BROWN Provider:?Liz Tiwari DO :1975???Age:48 Y???Sex:Female D ate:09/18/2023 Address:[facility] [address], [id number] Subjective: * Chief Complaints: * ???1. Pelvic pain. * HPI: ???General Health Maintenance:?Patient is a 48yo who presents with complaints of pelvic pain that started over the last 1-2 weeks. Reports that she is 6 months postop following hysterectomy with Dr. Awad. States that she has been experiencing pelvic [...] Acid reflux, Migraine, Lympedema, Seasonal allergies. 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 Assessment: * Assessment: 1.?Pelvic pain - R10.2 (Prim mansi)? Plan: * Treatment: ? Value Reference Range ?Glucose galen * ?Bilirubin neg * ?Ketones neg * ?Specific [place] 1.010 * ?Blood neg * ?pH 5.5 * ?Protein neg * ?Urobilinogen norm * ?Nitrite neg * ?Leukocytes neg ?Imaging: *US Pelvis Complete Transabdominal/Vaginal (Non-OB) (Ordered for 09/18/2023) (Performed Date - 09/18/2023) Clinical Notes: -New onset pelvic pain -Discussed etiologies including air plant engineer, GI, MSK -S/p hysterectomy procedure 6 months [...] weeks for review of symptoms?? * Procedure Codes:?55554 Urina lysis, by dip stick or tablet reagent for bilirubin, glucose, hemoglobin, ketones, leukocytes, nitrite, pH, protein, specific gravity, urobilinogen, any number of these constituents; non-automated, without microscopy * Follow Up:?4 Weeks * Billing Information: * Visit Code:? 46675 Office/Outpatient visit, est patient. * Procedure Codes:? 92683 Urinalysis, by dip stick or tablet reagent for bilirubin, glucose, hemoglobin, ketones, leukocytes, nitrite, pH, protein, specific gravity, urobilinogen, any number of these constituents; non-automated, without microscopy. * Sign off status: Completed Visit Status:?CHK (Check Out ) true * Provider:?Liz Tiwari DO Date:?09/18 Generated for Yuliana fierro/Anne/Louieitting on:?08/17/2024 03:25 PM EST
--- OUTSIDE RECORDS SUMMARY | 2024-08-17 15:47 | XMS_ITS | Encounter Summary ---
Author Organization [facility] Address [address] [place] [address] Care Team Providers Care Truck Sales Manager Name Role Phone Herbert Hair MD Primary Care Provider + [phone] Reason for Visit * Reason Onset Date Comments Dysuria 03/06/2024 Encounter Details Date Type Department Care Team (Late st Contact Info) Description 03/06/[address] [facility] UROLOGY [address] [place] [address] Lauro Alston APRN [address] [place] [address] Dysuria Social History Tobacco Use Types Packs/Day Years [...] or training? Not on file Preferred Language Zambian 07/20/2023 PHQ-2 Answer Date Recorded Retired PHQ-9: Brief Depression Severity Measure Score 1 10/05/2023 Comments No Sex and Gender Information Value Date Recorded Sex Assigned at Not on file Legal Sex Female 10:43 AM EDT Gender Identity Not on file Sexual Orientation Not on file documented as of this encounter Miscellaneous Notes * Telephone Encounter - Amita Carr - 03/06/2024 3:23 PM EDT Urine culture order was faxed to pt. To the number she provided. [phone] * Telephone Encounter - Bruno Amita - 03/06/2024 3:04 PM EDT Called and spoke with pt. She is experiencing dysuria frequently. She is currently taking AZO for it along with medications from our clinic, Hiprex and desmopressin. Pt would like a order faxed to her work to take to [facility] for a urine culture to make sure she doesn't have a UTI. No other symptoms are present besides the dysuria. * Telephone Encounter - Evonne Hall RegSched Rep - 03/06/2024 1:09 PM EDT Hub staff attempted to follow warm transfer process and was unsuccessful Caller: Leydi Brown Relationship to patient: Self Best call back number: [phone] Patient is needing: PT RETURNED CALL. PLEASE CALL HER BACK AT YOUR EARLIEST CONVENIENCE, SHE WILL HAVE BETTER CELL SERVICE AFTER 2 PM. THANK YOU * Telephone Encounter - Amita Carr - 03/06/2024 12:19 PM EDT Lvm for pt to get clarification on present symptoms and discuss AZO. Will send a [employer] message as well * Telephone Encounter - Yadira Sams RegSched Rep - 03/06/2024 10:07 AM EDT Caller: Leydi Brown Relationship: SELF Best call back number: [phone] What orders are you requesting (i.e. lab or imaging): URINE CULTURE In what timeframe would the patient need to come in: [facility] FAX NUMBER: [phone] Additional notes: INCOMING CALL FROM PT STATING THAT SHE BELIEVES SHE HAS A UTI AND IS ASKING IF LAURO COULD FAX A ORDER FOR A URINE CULTURE TO [phone]. PT IS ALSO TAKING AZO AND IS ASKING IF SHE NEEDS TO STOP TAKING THAT BEFORE GIVING A SAMPLE. PLEASE CALL PT AT [phone] documented in this encounter Plan of Treatment Upcoming Encounters Date Type Department Care Team (Late st Contact Info) Description 09/18/2024 3:30 PM EST Office Visit [facility] HEMATOLOGY & ONCOLOGY [address] [facility] [address] [place] [phone] Bre Crenshaw MD [address] [facility] [address] [place] [address] 12/31/2024 9:00 AM EDT Office Visit [facility] [address] [facility] [address] [place] [address] Annikashelley OraliaDWAYNE [address] [facility] [address] [place] [address] 05/12/2025 1:45 PM EDT Office Visit [facility] CARDIOLOG[facility] [address] [facility] [address] [place] [phone] Obed Woodard MD [address] [facility] [address] [place] [address] documented as of this encounter Visit Diagnoses Not on filedocumented in this encounter Additional Health Concerns Infection Onset Date Last Indicated Resolved Time MRSA 07/20/2023 07/20/2023 Assessment Noted Time PHQ-2 Depression Total Score: 1 10/05/19 24 8:56 AM EST documented as of this encounter Care Teams Truck Sales Manager Relationship Specialty Start Date End Date Herbert Hair MD [address] [facility] [address] [place] [address] PCP - General Adolescent Medicine 03/03/22 documented as of this encounter
--- OUTSIDE RECORDS SUMMARY | 2024-08-17 15:47 | XMS_ITS | Encounter Summary ---
Author Organization [facility] Address [address] [place] [address] Care Team Providers Care Sheeter Helper Name Role Phone Herbert Hair MD Primary Care Provider [phone] Encounter Details Date Type Department Care Team (Late st Contact Info) Description 03/04/2024 Documentation [facility] UROLOGY [address] [facility] [address] [place] [address] Letitia Ribera PA-C [address] [facility] [address] [place] [address] Social History Tobacco Use Types Packs/Day Years [...] or training? Not on file Preferred Language Surinamese 07/20/2023 PHQ-2 Answer Date Recorded Retired PHQ-9: Brief Depression Severity Measure Score 1 10/05/2023 Comments No Sex and Gender Information Value Date Recorded Sex Assigned at Not on file Legal Sex Female 10:43 AM EDT Gender Identity Not on file Sexual Orientation Not on file documented as of this encounter Progress Notes * Letitia Ribera PA-C - 03/04/2024 1:39 PM EDT BMP results are received from [facility] for this patient collected 02/29/2024. Relevant for sodium of 139, creatinine 0.80, BUN 18, estimated GFR 76. These will be scanned into media. Sodium is stable on DDAVP. documented in this encounter Plan of Treatment Upcoming Encounters Date Type Department Care Team (Late st Contact Info) Description 09/18/2024 3:30 PM EST Office Visit [facility] HEMATOLOGY & ONCOLOGY [address] [facility] [address] [place] [address] Bre Crenshaw MD [address] [facility] [address] [place] [address] 12/31/2024 9:00 AM EDT Office Visit [facility] UR[facility] [address] [facility] [address] [place] [address] Oralia Saha APRN [address] [facility] [address] [place], [place] [id number] 05/12/2025 1:45 PM EDT Office Visit [facility] CARDIOLOGY [address] [facility] [address] [place] [address] Obed Woodard MD [address] [facility] [address] [place], [place] [id number] documented as of this encounter Visit Diagnoses Not on filedocumented in this encounter Additional Health Concerns Infection Onset Date Last Indicated Resolved Time MRSA 07/20/2023 07/20/2023 Assessment Noted Time PHQ-2 Depression Total Score: 1 10/05/19 24 8:56 AM EST documented as of this encounter Care Teams Sheeter Helper Relationship Specialty Start Date End Date Herbert Hair MD [address] [facility] [address] [place] [address] PCP - General Adolescent Medicine 03/03/22 documented as of this encounter
--- OUTSIDE RECORDS SUMMARY | 2024-08-17 15:47 | XMS_ITS ---
Author Organization [facility] Address [address] [place] [address] Care Team Providers Care Nurse Staff Industrial Name Role Phone Herbert Hair MD Primary Care Provider Active Problems Problem Noted Date Diagnosed Date Cellulitis 07/20/2023 Fibroid 03/05/2023 Encounter for care related to vascular access po rt 07/13/2022 Malignant neoplasm of lower- outer quadrant of left female breast 06/13/2022 Malignant neoplasm of left b reast in female, estrogen receptor positive 05/24/2022 Cancer Staging:Clinical:Stage IIA(cT2, cN1, cM0, G2, ER+, AZ+, HER2-) - Signed by Bre Crenshaw MD on 05/24/2022 Intramural leiomyoma of uterus 12/06/2020 Current Oncology Plans No current plan information found. Other Current Plans OP CENTRAL VENOUS ACCESS DEVICE ACCESS, CARE, AND MAINTENANCE (CVAD)* Plan Start Date:07/13/2022 Plan Provider:Bre Crenshaw MD Linked Problems Encounter for care related t o vascular access port Treatment Medications No medications scheduled. Past Plans ONCOLOGY SUPPORTIVE CARE 1 Plan Name Start Date Discontinue Date Treatment Medications Discontinue Reason Plan Provider Cycles OP SUPPORTIVE HYDRATION + ANTIEMETICS 3 03/07/2023 No medications scheduled. Therapy Complete Bre Crenshaw MD 2 of 2 cycles started ONCOLOGY TREATMENT Plan Name Start Date Discontinue Date Treatment Medications Discontinue Reason Plan Provider Cycles OP BREAST DD PACLitaxel 022 10/26/2022 PACLItaxel (TAXOL) chemo IVPB 500 mLpegfilgrastim (NEULASTA ONPRO) Therapy Complete Bre Crenshaw MD 4 of 4 cycles started OP BREAST AC DD DOXOrubicin / Cyclophosphamide 022 09/03/2022 cyclophosphamide (CYTOXAN) chemo IVPBDOXOrubicin (ADRIAMYCIN)pegfil grastim (NEULASTA ONPRO) Therapy Complete Bre Crenshaw MD 4 of 4 cycles started Radiation Treatments * No radiation treatments are documented for this patient in [facility]. Treatments may have been administered in another system. Lifetime Dose Tracking * Chemical Lifetime Dose Automatic Entry Manual Entr y Doxorubicin 240.545 mg/m2 (448 mg) 240.545 mg/m2 (448 mg) 0 mg/m2 (0 mg) Treatment Summaries Malignant neoplasm of left breast in female, estrogen receptor positive* Images from the original note were not included. Breast Cancer Survivorship Plan General Information Patient name Leydi Singh Coppage Date of 1975 Phone Email [email or web address] Cancer Treatment Team Patient Care Team: An Bell MD as Referring Physician (General Surgery) Courtney Sams MD as Consulting Physician (Radiation Oncology) Bre Crenshaw MD as Consulting Physician (Hematology and Oncology) Obed Woodard MD as Consulting Physician (Cardiology) Hilda Jarvis APRN as Nurse Practitioner (Oncology) Provider Phone numbers Care Team Provider: An Bell MD, ([phone]) Care Team Provider: Courtney Sams MD, ([phone]) Care Team Provider: Bre Crenshaw MD, ([phone]) Care Team Provider: Obed Woodard MD, ([phone]) Care Team Provider: Hilda Jarvis APRN, ([phone]) Care Team Provider: Erika Awad MD, ([phone]) Post Treatment Care Team Primary Care Physician Herbert Hair MD [address] [facility] [address] [facility] [place] [address] Background Information Medical history Past Medical History: Acid reflux Anxiety Javed's disease Headache History of radiation therapy Left chest wall/regional LNs Hypertension Hypothyroidism Lymphedema left arm post mastectomy Malignant neoplasm of left breast in female, estrogen receptor positive Migraines PONV (postoperative nausea and vomiting) Wears contact lenses Wears glasses Wears glasses Surgical history Past Surgical History: BREAST BIOPSY lt stereo bx CARPAL TUNNEL RELEASE SECTION x 2 COLONOSCOPY hemorrhoids D & C HYSTEROSCOPY ENDOMETRIAL ABLATION ENDOSCOPY Normal LAPAROSCOPIC CHOLECYSTECTOMY MASTECTOMY WITH SENTINEL NODE BIOPSY AND AXILLARY NODE DISSECTION Procedure: BREAST MASTECTOMY LEFT, AXILLARY NODE DISSECTION LEFT, PROPHYLATIC RIGHT MASTECTOMY; Surgeon: An Bell MD; Location: [facility] OR; Service: General; Laterality: N/A; TONSILLECTOMY VENOUS ACCESS DEVICE (PORT) INSERTION VENOUS ACCESS DEVICE (PORT) REMOVAL Tobacco use Social History Tobacco Use Smoking Status Never Smokeless Tobacco Never Family oncology history Cancer-related family history is negative for Breast cancer, Ovarian cancer, Endometrial cancer, Uterine cancer, and Colon cancer. Oncology Information Oncology/Hematology History Malignant neoplasm of left breast in female, estrogen receptor positive 05/05/2022 Biopsy Left breast 05/24/2022 Initial Diagnosis Malignant neoplasm of left breast in female, estrogen receptor positive (HCC) 05/24/2022 Cancer Staged Staging form: Breast, AJCC 8th Edition - Clinical: Stage IIA (cT2, cN1, cM0, G2, ER+, AZ+, HER2-) - Signed by Bre Crenshaw MD on 05/24/2022 06/13/2022 Surgery Surgery Procedure: Mastectomies Location: Both breasts 07/13/2022 - 08/31/2022 Chemotherapy OP BREAST AC DD DOXOrubicin / Cyclophosphamide 09/14/2022 - 10/26/2022 Chemotherapy OP BREAST DD PACLitaxel 10/17/2022 - Chemotherapy OP SUPPORTIVE HYDRATION + ANTIEMETICS 11/06/2022 - 11/29/2022 Radiation Radiation OncologyTreatment Course: Leydi Brown received 4005 cGy in 15 fractions to leftchestwall and supraclavicular nodes via External Beam Radiation - EBRT. Hormonal Therapy Tamoxifen Complications during Therapy: No concerns stated Modification to Treatment Plan: No Modifications Lifetime Dose Tracking Doxorubicin: 240.545 mg/m2 (448 mg) Treatment Summary Treatment goal Control Plan Name OP BREAST AC DD DOXOrubicin / Cyclophosphamide Status Inactive Start Date 07/13/2022 End Date 08/31/2022 Provider Bre Crenshaw MD Chemotherapy DOXOrubicin (ADRIAMYCIN) chemo injection 112 mg, 60 mg/m2 = 112 mg, Intravenous, Once,4 of 4 cycles Administration: 56 mg (07/13/2022), 56 mg (07/13/2022), 56 mg (07/27/2022), 56 mg (07/27/2022), 56 mg (08/17/2022), 56 mg (08/17/2022), 56 mg (08/31/2022), 56 mg (08/31/2022) pegfilgrastim (NEULASTA ONPRO) on-body injector 6 mg, 6 mg, Subcutaneous, Once, 4 of 4 cycles Administration: 6 mg (07/13/2022), 6 mg (07/27/2022), 6 mg (08/17/2022), 6 mg (08/31/2022) Cyclophosphamide 1,130 mg in sodium chloride 0.9 % 280.7 mL chemo IVPB, 600 mg/m2 = 1,130 mg, Intravenous, Once, 4 of 4 cycles Administration: 1,130 mg (07/13/2022), 1,130 mg (07/27/2022), 1,130 mg (08/17/2022), 1,130 mg (08/31/2022) Response to treatment Treatment Summary Treatment goal Control Plan Name OP BREAST DD PACLitaxel Status Inactive Start Date 09/14/2022 End Date 10/26/2022 Provider Bre Crenshaw MD Chemotherapy PACLitaxel (TAXOL) 330 mg in sodium chloride 0.9 % 605 mL chemo IVPB, 175 mg/m2 = 330 mg, Intravenous, Once, 4 of 4 cycles Administration: 330 mg (09/14/2022), 330 mg (09/29/2022), 330 mg (10/12/2022), 330 mg (10/26/2022) pegfilgrastim (NEULASTA ONPRO) on-body injector 6 mg, 6 mg, Subcutaneous, Once, 4 of 4 cycles Administration: 6 mg (09/14/2022), 6 mg (09/29/2022), 6 mg (10/12/2022), 6 mg (10/26/2022) Response to treatment Treatment Summary Treatment goal Control Plan Name OP SUPPORTIVE HYDRATION + ANTIEMETICS Status Active Start Date 10/17/2022 End Date 11/01/2022 Provider Bre Crenshaw MD Chemotherapy [No matching medication found in this treatment plan] Response to treatment Persistent Treatment-Associated Adverse Effects at Completion of Therapy It is important to recognize that not every person experiences the following adverse events after treatment. You may not have any of these issues, a few or many adverse effects. Experiences are highly variable. Please discuss any adverse effects of cancer treatment with your cancer care team. After Surgical Therapy Mastectomy Mastectomy involves the removal of the entire breast. After surgery, there may be pain and sorenessin the chest, underarm or shoulder which should get better over time. Nerves may be damaged along surgical scars on the chest and areas of lymph node removal which may result in numbness and other changes in sensation. Care and attention to wound healing after surgery is important. Healing can be affected by things like smoking, diabetes and other factors. Ask your doctor or nurse if you have issues with pain, numbness or tingling, or any changes in function or mobility. How you think and feel about your body is important and coping with changes after mastectomy takes time. It???s important to look at your scar and your chest. It???s important to touch your scar, too. Your physician may give you instructions about massaging the scar to help with healing and to soften scar tissue. If you have a partner, let your partner look at your chest and feel the scar when you???re ready. If you do not have breast reconstruction, you can wear a breast prosthesis to give theappearance of a natural breast in clothing. Prostheses can differ in material, weight and form and can be worn in a bra or attached to the chest. Your doctor can tell you when the time is right to be fitted for a prosthesis and you may need a special bra to wear with it. Some insurance companies cover the cost. Ask your healthcare providers for a list of resources and about help with insurance coverage. Some women choose to wear a breast prosthesis at times and to not wear one at other times oreven not at all. Working through feelings about the cancer and changes as a result of surgery may take time and support. Talk with your doctor or nurse about any issues with body image and coping andask for a list of resources for bras and prostheses. Survivors of breast cancer should speak with their health care provider regarding the possibility of a genetic or family syndrome. If there does appear to be a family history or possible genetic syndrome, genetic counseling and testing may be recommended. After Chemotherapy Chemotherapy travels throughout the body and can affect both cancer cells and normal, healthy cells. Damage to healthy cells can cause side effects. Every person doesn't get every side effect, and some people get few, if any. Many side effects go away fairly quickly after treatment ends, but some may take months or even years to completely go away. The time it takes to get over some side effects and get your energy back varies from person to person. It depends on many factors; including your overall health and the drugsyou were given. Some side effects can last a lifetime, such as when chemo causes long-term damage to the heart, lungs, kidneys, or reproductive organs. Certain types of chemo sometimes cause delayed effects, such as a second cancers that may show up many years later. Ask your doctor or nurse if youneed more information. After Radiation Therapy Radiation therapy can cause early and late side effects. Early side effects are those that happen during or shortly after treatment and are usually gone within a few weeks after treatment ends. Late side effects may take months or years to develop and vary depending on the areas of the body included in the field of radiation and the radiation techniques that were used. The most common early side effects are fatigue (feeling tired) and skin changes. Other early side effects are usually related to the area being treated. If you continue to have some skin problems after treatment ends, be gentle with the skin in the treatment area until all signs of irritation are gone and continue to care for your skin as your doctors and nurses have advised. If you continue to have fatigue, you may need to plan your activities to maximize energy, get extra rest while your bodyis still recovering and follow other instructions from your doctors and nurses such as exercise andactivity. terminal operations supervisor effects of radiation therapy vary greatly depending on the areas included in the field ofradiation and the radiation techniques that were used. Breast tissue exposed to radiation may become more firm over time and you may notice changes in the size and shape of the breast. The skin wherethe breast was treated may have a different coloration, be more red or appear tanned. If the lymph nodes under the arm (axillary nodes) were in the radiation field, there may be an increased risk of developing lymphedema. Lymphedema is a condition in which fluid collects in the arm or other areas such as the hand, fingers, chest or back and cause swelling. In rare cases, radiation therapy can increase the risk of a second cancer. Ask your doctors and nurses about the risk of assisted effects. Keep your follow up appointments and keep up with recommended health screenings Hormone Therapy Hormones, like estrogen and progesterone, are naturally produced in the body. Typically these hormones help our body function in various ways, however, in some cases these hormones can also cause cancer to grow. When your cancer is positive for hormone receptors, your doctor may recommend hormone therapy. Hormone therapy works by either blocking the effects of the hormone on the cancer cell, or by reducing the amount of hormone produced by the body. In doing so, the cancer cells no longer receive or use the hormone to grow. It is very important for you to take the medicine as prescribed by your doctor and keep your regular follow-up appointments. Some medications interfere with hormone therapy medications, so be sure and discuss all medications that you take with your doctor. Common side effects women experience from hormone therapy includes hot flashes, vaginal dryness, and lack of a period in women who have not yet reached menopause. Some less common but serious side effects of hormone therapy may include increased risk for blood clots, joint pain, bone loss, weakness, mood changes, nausea, fatigue, and loss of interest in sexual activity, endometrial and uterine cancers, risk for stroke, heart attack, angina , and heart failure. Share with your doctor the side effects you experience so a plan can be made to minimize the effects. In addition, these medications will be taken long-term, in some cases 5-10 years. When taking oral hormone therapy, it may be helpful to create a calendar, use a pillbox, or set an alarm on your watch or phone to remind you daily to take the medication. Care of your Venous Access Device Your Implanted Port will need to be flushed every 4 weeks when not being used. Flushing your deviceneeds to be done by a specially trained nurse. If your device is properly maintained, it can stay in place for as long as your doctor feels you need it. General After Cancer Treatment It is not uncommon for cancer to impact other areas of your life such as relationships, work and mental health. If you develop financial concerns, resources are sometimes available to assist in theseareas. Depression and anxiety can present either during or after cancer diagnosis and treatment. Itis important to discuss with your physician any of these concerns so these resources can be made available to you. General Cancer Support & Resources [facility] [address], [address] [place] [address] Med Onc: Staff Developer Onc: Electrical Plumbing Supervisor: Kelly Russell - Psychiatric Nurse Practitioner: Taty Wing APRN - [phone] Kick It! (A free smoking cessation program) Financial Counselor and Contact Information: [facility] Financial Counseling - Artistic Director Contact Information: Halie Jimenez - [phone] Wound Ostomy & Continence Nurse: Local Cancer Support Group and Contact Information: Look Good Feel Better: A non-medical, brand-neutral public service program that teaches beauty techniques to people with cancer to help them manage the appearance-related side effects of cancer treatment. The program includes lessons on skin and nail care, cosmetics, wigs and turbans, accessories and styling, helping people with cancer to find some normalcy in a life. - See more at: http://lookgoodfeelbetter.org Journey Toward Empowerment - for Women with Cancer: ([facility]) The Tools and encouragement you need to live your life to the fullest. Free Dinner served @ 6:00pm followed by speaker from 6:30 - 7:30pm. The series runs from July, and meets monthly. Call Jes Austin RN, OCN @ to receive information and upcoming schedule. [facility] Cancer Buddies: This support group is open to anyone that has been diagnosed with cancer of any type. Meets at 6:30pm on the last Sunday of each month. [facility]; [address] [place] [address]. For more information call Patricia Nicholas @ . Breast Cancer Support & Resources Local Cancer Support Groups and Contact Information: [facility] [employer] [facility] ([place]): Breast Cancer Support group. Meets the Sunday of each month at various locations. Please Call Randall Boyer for meeting information @ [phone] or Argentina Booft @ [phone]. The Journey: Breast Cancer Support Ministry: Meets the Sunday of each month, 5:00PM @ O???[facility], [place], [place]. Please call Ambar Jenni at [phone] for additional information. Reach To Recovery: An [employer] peer support group for women with a concern about breast cancer. Patentscan talk with volunteer breast cancer survivors, in person or over the phone, for support & encouragement. Also, after you have completed your journey and would like to give back, you can call the [phone] number to volunteer as a survivor and support to others. For additional information, please call [phone]-[phone] or go to sss.cancer.org. Surveillance How Frequent? Medical Oncology visits 1 - 4 times per year as clinically appropriate for 5 years, then annually Lab tests With each oncology visit Lymphedema Monitor for lymphedema Genetic Counseling Periodic screening for changes in family history and referral to genetic counseling as indicated Gynecologic assessment For women on tamoxifen, gynecologic assessment every 12 months if uterus is present. Bone Density study For women on aromatase inhibitor or who experience ovarian failure secondary to treatment should have monitoring of bone health and bone mineral density determination at baseline and periodically thereafter Immunizations Influenza Herpes Zoster Pneumococcal Yearly Once As appropriate Tobacco Cessation The patient is not currently a tobacco user. Counseling given: Not Answered Monitor for ongoing toxicities: None Specified Call your doctor if you have any of these signs or symptoms New or worsening symptoms. Pain that is new, unrelieved or bothersome. Difficulty with your emotions, anxiety, and/or depression. Physical problems that affect your abilities in your daily life or those that are bothersome (for example, continued fatigue, trouble sleeping, sexual problems, or edema). Referrals provided There are no referral needs at this time. Self Care Plan Self Care Plan: What You Can Do to Stay Healthy after Treatment for Cancer Cancer treatments may increase your chance of developing other health problems years after you havecompleted treatment. The purpose of this self care plan is to inform you about what steps you can take to maintain good health after cancer treatment. Keep in mind that every person treated for cancer is different and that these recommendations are not intended to be a substitute for the advice of a doctor or other health rn care transition. Please use these recommendations to talk with your health care provider about an appropriate follow up care plan for you. Surveillance for Your Cancer Recommendation Frequency Comments Cancer surveillance visit with medical provider that is focused on detecting signs of recurrence ofyour cancer. For additional information, visit www.livestrong.org or www.cancer.net/patient/Survivorship Frequency depends on type and stage of cancer you had. (If you had a higher risk cancer, you may be seen more often). Your doctor has provided you with a personalized cancer treatment summary and survivorship care plan. If you need another copy, ask your doctor. General Cancer Screening for Women Cancer screening tests are designed to find cancer or pre-cancerous areas before there are any symptoms and, generally, when treatments are most successful. Various organizations have developed guidelines for cancer screening for women. While these guidelines vary slightly between different organizations, they cover the same basic screening tests for breast, cervical and colorectal cancers. In addition, during routine health examinations (at any age) your health care provider may also evaluate for cancers of the skin, mouth and thyroid. Not all screening tests are right for everyone. Your personal and family cancer history, and/or the presence of a known genetic predisposition, can affect which tests are right for you, and at what age you begin them. Therefore, you should discuss these with your health care provider. Your care plan will also include a section on follow up care foryour type of cancer, and these recommendations override the general screening recommendations for that particular type of cancer in the general population. The [employer] (ACS) recommends these screening guidelines for women: Recommendation Frequency Comments Breast Cancer Screening For more information, see the ACS document Breast Cancer: Early Detection. www.cancer.org/ssLINK/angcfm-aobjbn-orcsp-detection-rhona Yearly mammograms starting at age 40, and continuing for as long as a woman is in good health. Clinical breast exam (CBE), performed by a health rn care transition, every three years for women intheir 20s and 30s, and every year for women 40 and over. A monthly breast self-exam (BSE) is a good way to monitor breast health. Women should know how their breasts normally look and feel, and report any change promptly to their health care provider. The ACS recommends that some women - because of their family history, a genetic tendency, or certain other factors - be screened with Magnetic Resonance Imaging (MRI) in addition to mammograms. The numberof women who fall into this category is small (less than 2 percent of all [place] women). Talk with your doctor about your personal history and whether you should have additional tests at an earlier age. Colon and Rectal Cancer Screening For more information see the ACS document Colorectal Cancer: Early Detection. www.cancer.org/ssLINK/dbantbtlpp-flyfij-qamct-detection-rhona Options for colon cancer screening can be divided into those that screen for both cancer and polyps, and those that just screen for cancer.Screening should begin at age 45 (unless you are considered high risk (see comments), using one of the following testing schedules: Tests that find polyps and cancer (Preferred over those that find cancer alone. If any of these tests are positive, a colonoscopy should be done.) Flexible sigmoidoscopy every five years, or Colonoscopy every 10 years, or Double-contrast barium enema every five years, or CT colonography (virtual colonoscopy) every five years Tests that primarily test for cancer Yearly fecal occult blood test (FOBT)*, or Yearly fecal immunochemical test (FIT) *, or Stool DNA test (sDNA), interval uncertain* * The multiple stool take-home test should be used. One test done by the doctor in the office is not adequate. A colonoscopy should be done if the test is positive. Talk with your doctor about your medical history, and what colorectal cancer screening test and schedule is best for you. Individuals at higher risk of colon cancer should have screening earlier and potentially more frequently. Those at higher risk of colon and rectal cancer: Individuals with a family history of colon or rectal cancer in a relative who was diagnosed before the age of 60 Individuals with a history of polyps Individuals with inflammatory bowel disease (Crohn's disease or ulcerative colitis) Individuals with a genetic predisposition to colon or rectal cancer, such as hereditary non-polyposis colon cancer (HNPCC) syndrome or familial adenomatous polyposis (FAP) syndrome Cervical Cancer Screening For more information see the ACS document Cervical Cancer: Early Detection. www.cancer.org/.../meovzkfp-tpnviw-fhxqcqbmlw-btf-rwywt-gkrsicjym-rhona Cervical cancer screening should not begin before age 21. Screening Pap tests should be performed every three years between age 21 and 29 Women age 30 or older should be screened every 3 years with a Pap test or every five years with a combined Pap/Human Papillomavirus (HPV) test. Women 65 years of age or older who have had negative consecutive screening in the preceding 10 years should discontinue screening. Women who have had a total hysterectomy (removal of the uterus and cervix) should also stop having Pap tests, unless the surgery was done as a treatment for cervical cancer or pre-cancer. Women who have had a hysterectomy without removal of the cervix should continue to have Pap tests. Women who have had a history of a serious cervical precancer should continue screening for at least20 years, even if that extends screening past age 65. Women who have been vaccinated against HPV should still follow these screening guidelines. Treatment for most gynecological cancers involves hysterectomy and alters recommendations for Pap tests. Refer to your personalized cancer treatment summary and survivorship care plan to see what the Pap test recommendations are for you. If you need another copy of your care plan, please ask your doctor. Sun Exposure and Skin Cancer Risk Skin cancer is the most commonly diagnosed type of cancer, and rates are on the rise. However, thisis one cancer that in most cases can be prevented or detected early. While you may hear that you need the sun to make vitamin D, in reality you only need a few minutes a day to do this. Exposure to ultraviolet (UV) rays, either by natural sunlight or tanning beds, can lead to skin cancer. In additio n, UV rays lead to other forms of skin damage, including wrinkles, loss of skin elasticity, dark patches (sometimes called age spots or liver spots), and pre- cancerous skin changes (such as dry, scaly, rough patches). Although dark- skinned people are less likely to develop skin cancer, they can anddo develop skin cancers, most often in areas that are not exposed to sun (on the soles of the feet,under nails, and genitals). You can do a lot to protect yourself from damaging UV rays and to detect skin cancer early. Start by practicing sun safety, including using a broad spectrum sunscreen (which protects against UVA and UVB rays) with an SPF of at least 30 every day, avoiding peak sun times (10 a.m. to 4 p.m., when therays are strongest) and wearing protective clothing such as hats, sunglasses and long- sleeved shirts. Examine your skin regularly so you become familiar with any moles or birthmarks. If a mole has changed in any way, you should have a health care provider examine the area. This includes a change in size, shape or color; the development of scaliness, bleeding, oozing, itchiness or pain; or the development of a sore that will not heal. If you have a lot of moles, it may be helpful to make note of moles using photographs or a mole map . For a guide to performing a skin exam, visit www.[facility].com/skincancernet/skin_examinations.html. Healthy Lifestyle For some cancer survivors, the experience is the motivation to making healthy lifestyle changes. Itmay seem insignificant, but these changes have been shown to reduce the risk of the cancer coming back or a new cancer developing. Below are some tips on adopting a healthier lifestyle. Maintaining ahealthy weight is important in cancer prevention, as is physical activity and eating a healthy diet. Strive to incorporate all three pieces of the puzzle: healthy weight, balanced diet and regular exercise. Recommendation Goal Comments Maintain a healthy weight. For more information, visit http://www.nhlbi.nih.gov/health/public/heart/obesity/lose_wt/index.htm www.win.niddk.nih.gov Call the [employer] Talk to your health care team about what a healthy weight is for you, and take stepsto reach and maintain that weight. For many people reaching their ideal weight can be a challenge; however, losing even 5 to 10 poundscan lower blood pressure, blood sugar and cholesterol levels. Weigh yourself weekly to monitor for weight gain/loss Being overweight can increase your chance of your cancer coming back. Maintaining a healthy weight, physical activity and eating a healthy diet are all important in cancer prevention. Being overweight can increase your chance of having high blood pressure, high blood sugar and/or high cholesterol, which can lead to heart disease, diabetes and stroke. If you would like more information about your blood sugar, cholesterol or blood pressure, talk with your primary care provider. Eat a healthy diet, mostly from plant sources. For more information, visit http://www.choosemyplate.gov/food-groups/ Eat healthy, including plenty of fruits and vegetables daily. Drink more water, less soda and juice. Limit how much alcohol you drink (if you drink at all). Strive to have two- thirds of your plate be vegetables, fruits, whole grains and beans, while one- third or less should be an animal product. Choose fish and chicken and limit red meat and processed meats. Limit intake of alcohol to two drinks per day. Exercise. To learn more about recommendations for diet, activity and weight, visit AICR???s Guidelines for Survivors http://preventcancer.aicr.org/site/PageServer?pagename=patients_survivors_guidel sariah ACS Eat Healthy and Get Active www.cancer.org/Healthy/EatHealthyGetActive/index Experts recommend at least 30 minutes of gskprvce-mr-nwpxtali activity per day, five days a week. Research shows that exercise can help you control your weight, improve your energy level, and help you sleep at night. The hudson is to find a physical activity you enjoy such as walking, dancing or gardening and do it regularly. If you have been inactivefor a while, start out slowly. You can start out by exercising 10 minutes a day several days a week. If you feel dizzy, short of breath, or have chest pain during exercise, stop exercising and talk with your primary care doctor. Do not use tobacco in any form. For more information, visit http://www.cdc.gov/tobacco/campaign/tips/ If you use tobacco, quit as soon as possible. Smoking is the most preventable cause of in the [place] If you would like more information, ask your doctor or you can call a national hotline at 1(409)-QUIT-NOW. Keep your bones healthy. For more information, visit www.niams.nih.gov/Health.../Bone/Bone_Health/bone_health_for_life For the FRAX (Fracture Risk Assessment) tool, visit: www.shef.ac.uk/FRAX/ , to estimate 10-year risks for fractures Ask your primary care provider aboutscreening for osteoporosis beginning at age 65 or at a younger age if your bone fracture risk is increased. The 10-year risk for osteoporotic fractures can be calculated for individuals by using the FRAX tool and could help to guide screening decisions for women younger than 65 years. Maximize your bone health by eating healthy, getting enough calcium and vitamin D, and exercising regularly. Certain cancer treatments, such as chemotherapy or hormonal therapy, can cause bone loss. In addition, after menopause, women can lose up to 20 percent of their bone density. The good news is that women can maximize their bone density by eating healthy, getting enough calcium and vitamin D, and exercising regularly. Age (years) Calcium per day Vitamin D per day 19 to 49 1000 milligrams 600 units 50 or over 1200 milligrams 800 units Have regular check-ups by a healthcare professional. For more information about healthy screening tests for men visit the [place] Department of Health and Human Services. http://www.womenshealth.gov/xlidkcdho-ffvmm-rte-vaccines/pmogzskxg-zidrq-lwx-men / For more information about adult vaccinations visit the CDC: http://www.cdc.gov/vaccines/recs/schedules/adult-schedule.htm Keep up-to-date on general health screening tests, including cholesterol, blood pressure and glucose (blood sugar) levels. Get an annual influenza vaccine (flu shot). Get vaccinated with the pneumococcal vaccine, which prevents a type of pneumonia, and re-vaccinatedas determined by your health care team. Don???t forget dental and eye health! The [employer] recommends adults have their eyes examined every two years until age 60, then annually. People who wear glasses or correctivelenses or are at high risk for eye problems (i.e., diabetics, family history of eye disease) shouldbe seen more frequently. The [employer] recommends adults see their dentist at least once a year. 14 No information on file. No information on file.
--- OUTSIDE RECORDS SUMMARY | 2024-08-17 15:47 | XMS_ITS | Encounter Summary ---
Author Organization [facility] Address [address] [place] [address] Care Team Providers Care Digital Sales Director Name Role Phone Herbert Hair MD Primary Care Provider [phone] Reason for Visit * Reason Comments Nocturia more than twice per night Encounter Details Date Type Department Care Team (Late st Contact Info) Description 06/30/2024 9:50 AM EDT Office Visit [facility] [address] [facility] [address] [place] [address] Len Reese MD [address] [facility] [address] [place] [id number] Nocturia more than twice per night (Primary Dx); Recurrent UTI Social History Tobacco Use Types Packs/Day Years [...] you are drinking? Patient does not drink 10/20/202 3 Q3: How often do you have si [...] or training? Not on file Preferred Language Scottish 07/20/2023 PHQ-2 Answer Date Recorded Retired PHQ-9: Brief Depression Severity Measure Score 1 10/05/2023 Comments No Sex and Gender Information Value Date Recorded Sex Assigned at Not on file Legal Sex Female 10:43 AM EDT Gender Identity Not on file Sexual Orientation Not on file documented as of this encounter Patient Instructions * Patient Instructions* Len Reese MD - 06/30/2024 9:50 AM EDT Tips to Reduce Bladder Symptoms (Urgency, Frequency, Incontinence, Infections) Here are some basic recommendations for reducing urinary symptoms: 1) Urinate (or empty bladder if intermittent catheter dependent) every 3 hours while awake. After urinating please stay and attempt to urinate a 2nd time to confirm you are empty (this is called double voiding). This should be your practice EVERY time you attempt to urinate. 2) Constipation can severely exacerbate baseline overactive bladder symptoms. You should have a soft bowel management DAILY. You will likely find success with daily stool softeners (Colace or Docusate) plus the use of a stool softener, Miralax. 3) Reduce caffeinated beverage intake to no more than one normal size glass per day. 4) Cut down fluid intake after dinner and at least a few hours prior to sleeping to prevent night-time waking to urinate. Options for Treating Recurrent Urinary Tract Infections Your urologist may have recommended one of the following therapy strategies if you are experiencingrecurrent urinary tract infections: 1) Self Start Antibiotic Therapy In patients who have infrequent urinary tract infection, possibly related to intercourse, a sizablequantity of antibiotics may have been prescribed to you. Whenever you notice the symptoms of urinary tract infection starting (urgency, frequency, bladder pain, blood in the urine, suprapubic pain) it is important that you drop off a urine sample at a local [facility] lab for culture. After you have dropped off a urine sample, you can start a 3-day course of antibiotics (typically nitrofurantoin AKAMacrobid) or Trimethoprim/Sulfamethoxazole (Bactrim)). 2) Post-Coital Antibiotic Therapy (Post-Sunshine) If your urinary tract infections are usually patterned around intercourse, your urologist may have prescribed you a sizable quantity of antibiotics. To prevent infections associated with intercourse,your urologist may have instructed you to take 1 tablet of either Macrobid or Bactrim either just before or just after intercourse to prevent urinary tract infection. Wiping front to back, urinating after intercourse, and keeping good fluid intake may also help to prevent your infections. 3) Daily Urinary Sterilization (Non-Antibiotic Prevention Medication) If you have frequent urinary tract infections, your urologist may have prescribed you a medication called methenamine hippurate (Hipprex). This medication is not an antibiotic, but it does help to cause urinary sterilization and prevent bacterial growth. This should be taken twice a day as instructed. If you are taking this medication is important to drink plenty of fluid and urinate frequently. 4) Daily Antibiotic for UTI Prevention If you have significant or worsening frequency of urinary tract infections, your urologist may haveprescribed you a daily tablet of antibiotic, either Macrodantin or Trimethoprim as an effective wayto prevent urinary tract infections long-term. It is important that you take this medication at thesame time every day, this is usually recommended to take prior to bedtime. Daily antibiotic for urinary tract infection prevention is usually prescribed for 3 to 6 months at a time with reassessment of effectiveness at interval follow-ups. 5) Vaginal Estrogen Cream Therapy Vaginal estrogen cream is typically prescribed for women with recurrent urinary tract infections orsignificant lower urinary tract symptoms (urgency, frequency, incontinence, vaginal dryness, pain with intercourse, etc.) who are postmenopausal. After menopause, there is typically reduced blood flow to the vagina and area around the urethra and bladder as a result of estrogen decline, this can cause pH changes to the tissue, loss of normal bacterial robert, and loss of tissue integrity which canincrease risk of infection. Restoring vaginal estrogen is an effective way to promote healthy bacterial growth to prevent growth of bad bacteria, restore vaginal lubrication, and prevent urinary sympt oms. documented in this encounter Progress Notes * Len Reese MD - 06/30/2024 9:50 AM EDT Images from the original note were not included. Follow Up Office Visit Patient Name: Leydi Brown : 1975 Chief Complaint: Chief Complaint Patient presents with Nocturia more than twice per night Referring Provider: No ref. provider found History of Present Illness: Leydi Brown is a 49 y.o. female who presents today for followup of recurrent urinary tract infection. Managing with 1 g methenamine hippurate twice daily. She was also given desmopressin for nocturia which did not seem to help. She was placed on vaginal Estrace but could not afford this. She does have a history of presumed estrogen receptor positive breast cancer status postmastectomy, chemotherapy and radiation. Her last positive urine culture was in January 2024. Guidance PCR culture at the time demonstrated E. Coli. She has been doing fairly well on methenamine hippurate. Her urinalysis today demonstrates leukocytes. She thought she was developing a UTIlast weekend push water and states symptoms mostly resolved. Underwent a CT scan last year, imagingreviewed. No kidney stones or hydronephrosis is identified. She does state her daughter gets frequent UTIs as well. Subjective Review of System: Review of Systems Genitourinary: Positive for frequency. Negative for decreased urine volume, difficulty urinating, dysuria, enuresis, flank pain, hematuria and urgency. I have reviewed the ROS documented by my clinical staff, I have updated appropriately and I agree. Len Reese MD I have reviewed and the following portions of the patient's history were updated as appropriate: past family history, past medical history, past social history, past surgical history and problem list. Medications: Current Outpatient Medications: anastrozole (ARIMIDEX) 1 MG tablet, Take 1 tablet by mouth once daily, Disp: 30 tablet, Rfl: 11 aspirin 81 MG EC tablet, Take 1 tablet by mouth Daily., Disp: , Rfl: Biotin 5 MG capsule, Take 1 capsule by mouth Daily., Disp: , Rfl: Cholecalciferol (VITAMIN D-3 PO), Take by mouth., Disp: , Rfl: esomeprazole (nexIUM) 20 MG capsule, Take 2 capsules by mouth Every Morning Before Breakfast., Disp: , Rfl: fluticasone (FLONASE) 50 MCG/ACT nasal spray, Administer 2 sprays into the nostril(s) as directed by provider Daily., Disp: , Rfl: levothyroxine (SYNTHROID, LEVOTHROID) 50 MCG tablet, Take 1 tablet by mouth Daily., Disp: , Rfl: methenamine (HIPREX) 1 g tablet, Take 1 tablet by mouth 2 (Two) Times a Day With Meals., Disp: 60 tablet, Rfl: 11 Misc Natural Products (OSTEO BI-FLEX ADV JOINT SHIELD PO), Take 1 tablet by mouth Daily., Disp: , Rfl: Dinosaur-3 Fatty Acids (OMEGA-3 PO), Take by mouth., Disp: , Rfl: ondansetron ODT (ZOFRAN-ODT) 8 MG disintegrating tablet, Place 1 tablet on the tongue 3 (Three) Times a Day., Disp: 30 tablet, Rfl: 3 MV-Min-Fe Fum-FA-DHA ( Multivitamin Plus DHA) 27-0.8-250 MG capsule, Take 900 doses by mouth Daily., Disp: , Rfl: propranolol (INDERAL) 20 MG tablet, Take 1 tablet by mouth every night at bedtime., Disp: , Rfl: rosuvastatin (CRESTOR) 10 MG tablet, Take 1 tablet by mouth Daily. Please obtain updated lipid lab work for future refills, Disp: 90 tablet, Rfl: 0 sertraline (ZOLOFT) 25 MG tablet, Take 1 tablet by mouth Daily., Disp: , Rfl: telmisartan-hydrochlorothiazide (MICARDIS HCT) 40-12.5 MG per tablet, Take 1 tablet by mouth Daily., Disp: 30 tablet, Rfl: 11 vitamin B-12 (CYANOCOBALAMIN) 1000 MCG tablet, Take 1 tablet by mouth Daily., Disp: , Rfl: Cranberry-Vitamin C-Probiotic (AZO CRANBERRY PO), Take by mouth. (Patient not taking: Reported on 06/30/2024), Disp: , Rfl: Loratadine 10 MG capsule, Take 1 capsule by mouth Daily. (Patient not taking: Reported on 06/30/2024), Disp: , Rfl: mupirocin (BACTROBAN) 2 % ointment, APPLY OINTMENT TOPICALLY TO AFFECTED AREA THREE TIMES DAILY (Patient not taking: Reported on 06/30/2024), Disp: , Rfl: Allergies: Allergies Allergen Reactions Chlorhexidine Gluconate Rash Bladder & Bowel Symptom Questionnaire How often do you usually urinate during the day ? 1 - About every 3-4 hours 2. How many timed do you urinate at night? 1 - 2 times at night 3. What is the reason that you usually urinate? 2 - Moderate urge (can delay 10- 60 min) 4. Once you get the urge to go, how long can you comfortably delay? 2 - 10-30 min 5. How often do you get a sudden urge that makes you palomino to the bathroom? 1 - Rarely 6. How often does a sudden urge to urinate result in you leaking urine or wetting pads? 0 - Never 7. In your opinion, how good is your bladder control? 2 - Good 8. Do you have accidental bowel leakage? no 9. Do you have difficulty fully emptying your bladder? yes 10. Do you experience accidental leakage when performing some physical activity such as coughing, sneezing, laughing or exercise? no 11. Have you tried medications to help improve your symptoms? yes 12. Would you be interested in learning about a long-lasting option that may help you with your symptoms? no Total Score 9 0-7 (Mild) 8-16 (Moderate) 17-28 (Severe) Objective Physical Exam: Vital Signs: There were no vitals filed for this visit. There is no height or weight on file to calculate BMI. Physical Exam Constitutional: Appearance: Normal appearance. She is obese. HENT: Head: Normocephalic and atraumatic. Nose: Nose normal. Mouth/Throat: Mouth: Mucous membranes are moist. Pharynx: Oropharynx is clear. Eyes: Extraocular Movements: Extraocular movements intact. Pupils: Pupils are equal, round, and reactive to light. Pulmonary: Effort: Pulmonary effort is normal. No respiratory distress. Musculoskeletal: General: No swelling or deformity. Normal range of motion. Cervical back: Normal range of motion and neck supple. Skin: General: Skin is warm and dry. Neurological: General: No focal deficit present. Mental Status: She is alert and oriented to person, place, and time. Mental status is at baseline. Psychiatric: Mood and Affect: Mood normal. Behavior: Behavior normal. Labs: Brief Urine Lab Results (Last result in the past 365 days) Color Clarity Blood Leuk Est Nitrite Protein CREAT Urine HCG 06/30/24 1033 Yellow Slightly Cloudy Negative Small (1+) Negative Negative Urine Culture 09/18/2023 10:10 Urine Culture Urine Culture 50,000 CFU/mL Escherichia coli 50,000 CFU/mL Escherichia coli Lab Results Component Value Date GLUCOSE 177 (H) 05/28/2024 CALCIUM 9.5 05/28/2024 NA 139 05/28/2024 K 3.4 (L) 05/28/2024 CO2 27.0 05/28/2024 CL 99 05/28/2024 BUN 14 05/28/2024 CREATININE 0.94 05/28/2024 BCR 14.9 05/28/2024 ANIONGAP 13.0 05/28/2024 Lab Results Component Value Date WBC 5.55 05/28/2024 HGB 13.7 05/28/2024 HCT 39.4 05/28/2024 MCV 91.4 05/28/2024 PLT 216 05/28/2024 Images: No Images in the past 120 days found.. Measures: Tobacco: Olacabs Coppage reports that she has never smoked. She has never been exposed to tobacco smoke. She has never used smokeless tobacco. Urine Incontinence: ( NOUI) Patient reports that she is not currently experiencing any symptoms of urinary incontinence. Assessment / Plan Assessment/Plan: 49 y.o. female who presented today for follow up of recurrent UTI. Risk factors include the patientis currently prediabetic and has had elevated BMI for some time. Weight loss, diet, focusing on lifestyle changes and exercise may improve her UTI frequency. She is also on anastrozole for history ofbreast cancer and being postmenopausal as an independent risk factor. Recommend continue methenamine hippurate at this time, send a guidance PCR urine culture today. If positive we will need to consider switching her to a nightly Macrobid or trimethoprim for long-term prophylaxis if she is experiencing multiple breakthrough infections. I would avoid any estrogen derivatives given her breast cancer history. Follow-up in 6 months with nurse practitioner team Diagnoses and all orders for this visit: 1. Nocturia more than twice per night (Primary) - POC Urinalysis Dipstick, Automated 2. Recurrent UTI - POC Urinalysis Dipstick, Automated Follow Up: Return in about 6 months (around 12/28/2024) for Follow up with Anuradha Alston NP. I spent approximately 20 minutes providing clinical care for this patient; including review of patient's chart and provider documentation, face to face time spent with patient in examination room (obtaining history, performing physical exam, discussing diagnosis and management options), placing orders, and completing patient documentation. Len Reese MD [facility] [place] * Len Reese MD - 06/30/2024 9:50 AM EDT Please call patient, let her know her guidance PCR urine culture came back with 4 separate bacteria. These appear all to be susceptible to Levaquin. I will send her a 5-day course of Levaquin for urine clearance. documented in this encounter Plan of Treatment Upcoming Encounters Date Type Department Care Team (Late st Contact Info) Description 09/18/2024 3:30 PM EST Office Visit [facility]AT[facility] & ONCOLOGY [address] [facility] [address] [place] [address] Bre Crenshaw MD [address] [facility] [address] [place] [address] 12/31/2024 9:00 AM EDT Office Visit [facility] UROLOGY [address] [facility] [address] [place] [address] Oralia Saha APRN [address] [facility] [address] [place], [place] [id number] 05/12/2025 1:45 PM EDT Office Visit [facility] CARDIOLOGY [address] [facility] [address] [place] [address] Obed Woodard MD [address] [facility] [address] [place] [address] documented as of this encounter Procedures Procedure Name Priority Date/Time Associated Diagnosis Comments POCT URINALYSIS DIPSTICK, AUTOMATED Routine 06/30/2024 10:33 AM EDT Nocturia more than twice per night Recurrent UTI SCANNED - LABS 06/30/2024 documented in this encounter Results * (ABNORMAL) POC Urinalysis Dipstick, Automated (06/30/2024 10:33 AM EDT) Color Yellow Yellow, Straw, Dark Yellow, Cici [facility] Clarity, UA Slightly Cloudy(A) Clear [facility] Specific [place] 1.010 1.005 - 1.030 [facility] pH, Urine 5.0 5.0 - 8.0 [facility] Leukocytes Small (1+)(A) Negative [facility] Nitrite, UA Negative Negative [facility] Protein, POC Negative Negative mg/dL [facility] Glucose, UA Negative Negative mg/dL [facility] Ketones, UA Negative Negative [facility] Urobilinogen, UA Normal Normal, 0.2 E.U./dL [facility] Bilirubin Negative Negative [facility] Blood, UA Negative Negative [facility] Lot Number [id number] [facility] Expiration Date 06/29/25 [facility] Urine 06/30/2024 10:3 3 AM EDT us Len Reese MD POINT OF CARE TEST ORDERAB LES Final Result [facility]
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
--- OUTSIDE RECORDS SUMMARY | 2024-08-17 15:47 | XMS_ITS ---
Author Organization [facility] Address [address] [place] [address] Care Team Providers Care Gis Software Developer Name Role Phone Erika Awad Unavailable [phone] Liz Tiwari Unavailable [phone] Medications Medication SIG (Take, Route, Fr equency, Duration) Notes Start Date End Date Status Macrobid 100 MG 1 capsule with food Orally every 12 hrs for 7 days 09/21/2023 Active Social History Sex Assigned At : Social History Observation Description Sex Assigned At Female Encounters Encounter Location Date Provider Diagnosis [facility] [address] [facility] [address] [place] [address] 09/21/2023 Liz Tiwari Plan Of Treatment Medication Medication Name Sig Start Date Stop Date Notes Macrobid 100 MG 1 capsule with food Orally every 12 hrs for 7 days 09/21/2023 Progress Notes * Leydi BROWNDOB:[birth year] (48 yo F)Acc No.[id number]:09/21/2023 Patient:?YOSEF Leydi :1975???Age:48 Y???Sex:Female Address:[address], [place] [address] * Refills? Start Macrobid Capsule, 100 MG, Orally, 14, 1 capsule with food, every 12 hrs, 7 days, Refills=0 * true * Date:? Generated for Yuliana fierro/Anne/Louieitting on:?08/17/2024 03:25 PM EST
--- OUTSIDE RECORDS SUMMARY | 2024-08-17 15:47 | XMS_ITS ---
Author Organization [facility] Address [address] [place] [address] Phone Care Team Providers Care Manager Intern Name Role Phone Saul Stephens PA-C [phone] Plan of Treatment No Plan of Treatment Recorded Assessments Includes: Assessments for all patient encounters No Assessments Recorded Medical Equipment - Implanted Devices Includes: Current and historical Devices No Medical Equipment Recorded Medications Administered Includes: Administered Medications in patient's chart No Administered Medications Recorded Results Includes: Results from 08/17/2023 through 08/17/2024 No Results Recorded For Specified Dates History [...] Subscriber Relationship Effect diamond Dates 1 - [facility] [id number] Leydi Brown Self Clinical Notes Includes: Signed Clinical Notes starting from 09/14/2022 No Clinical Notes Recorded
--- OUTSIDE RECORDS SUMMARY | 2024-08-17 15:47 | XMS_ITS | Patient Health Record ---
Author Organization [facility] Address [address] [place] [address] Care Team Providers Care Laborer Syrup Machine Name Role Phone Erika Awad Unavailable [phone] Liz Tiwari Unavailable [phone] Allergies No Known Allergies Results Component Value Reference Range Notes *US Pelvis Complete Transabd ominal/Vaginal (Non-OB) Reviewed date:09/19/2023 03:15:15 PM Interpretation: Performing Lab: Notes/Report: [facility] Transvaginal Pelvic Study Report Name: AUGUSTINE BROWN Accession/Encounter No:[id number] : 1975 Age: 48 Gender: F Study Date: Sep 18, 2023 Study Time: 08:36 AM Reading Group: Erika Awad MD Referring Group: Liz Tiwari DO Ordering Phys: Liz Tiwari DO Manager Pipeline: Claudia Cummins RDMS Equipment: Affiniti 30 Study [...] 07:46 PM EST Electronically Signed on Studycast PALO COPPAGE 2023-09-18 Page 1 of 1 Imaging Center - , [facility] ___ Transvaginal Pelvic Study Report ___ Name: AUGUSTINE BROWN Accession/Encounter No:[id number] : 1975 Age: 48 Gender: F Study Date: Sep 18, 2023 Study Time: 08:36 AM Reading Group: Rosio Awad MD Referring Group: Liz Tiwari DO Ordering Phys: Brittany Tiwari DO Manager Pipeline: Valeria Cummins RDMS Equipment: Affiniti 30 ___ [...] Approved By: Sam Awad MD Approved at: 2022 07:46 PM EST Electronically Vandana d on Studycast AUGUSTINE BROWN 2023-09-18 Page 1 of 1 Ivana/Bacterial Vaginosis, HANK (Aptima) Reviewed date:09/19/2023 04:56:28 PM Interpretation:Negative Performing Lab:[facility] - NIKKIE CLIA ID [id number], [address] [address] [facility] [address], [address], [place] [address], Director - Ana Hatch MD Notes/Report: Bacterial Vaginosis Negative Negative system that detects and discriminates RNA markers from the Lactobacillus species group detection of target organisms. The Aptima BV assay is a real time NAAT TMA assay developed for use on the automated Paguate The Aptima BV assay uses an algorithm for bacterial vaginosis based on (L. gasseri, L. crispatus and L. jensenii), Gardnerella vaginalis, and Atopobium vaginae. Ivana species Negative Negative The CV Assay is a real time TMA assay developed for use on the automated Paguate differentiate among C spp. system that detects following Ivana species organisms (C. albicans, C. tropicalis, C. parapsilosis, C. dubliniensis), but the assay does not Ivana glabrata Negative Negative Urine Dip Reviewed date:09/18/2023 09:03:51 AM Interpretation: Performing Lab: Notes/Report: Glucose galen Bilirubin neg Ketones neg Specific [place] 1.010 Blood neg pH 5.5 Protein neg Urobilinogen norm Nitrite neg Leukocytes neg URINE CULTURE Reviewed date:09/21/2023 02:01:48 PM Interpretation:Ecoli [...] coli Strain #2 50,000 CFU/mL Escherichia coli KIT Reviewed date:09/21/2023 [...] Lab specim ens received at a [facility].?See result details for the performing location information. Ampicillin Susc Islt >=32 Ampicillin+Sulbac Susc Islt >=32 ceFAZolin Susc Islt >=64 Cefepime Susc Islt <=1 cefTAZidime Susc Islt 16 cefTRIAXone Susc Islt 16 Gentamicin Susc Islt <=1 levoFLOXacin Susc Islt <=0.12 Nitrofurantoin Susc Islt <=16 Pip+Tazo Susc Islt <=4 TMP SMX Susc Islt <=20 Lab specim ens received at a [facility].?See result details for the performing location information. [...] history of primary malignant neoplasm of breast (370474132) Personal history of malignant neoplasm of breast (Z85.3) Active confirmed Problem Fibroid (6700444659) Fibroid (D21.9) Active confirmed Vital Signs Blood pressure diastolic 76 mm Hg 03/12/2024 Height 61 in 03/12/2024 Blood pressure systolic 128 mm Hg 03/12/2024 Weight 201.6 lbs 03/12/2024 BMI 38.09 kg/m2 03/12/2024 Encounters Encounter Location Date Provider Diagnosis [facility] [address] [place] [address] 09/17/2023 Erika Awad [facility] [address] [place] [address] 09/17/2023 Lizserina Tiwari [facility] [address] [place] [address] 09/21/2023 Liznilesh Tiwari [facility] [address] [place] [address] 03/12/2024 Erika Awad Commodity Merchant exam without 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 Z01.419 and Encounter for screening mammogram for malignant neoplasm of breast Z12.31 [facility] [address] [place] [address] 09/18/2023 Liznilesh Tiwari Pelvic pain R10.2 [facility] [address] [place] [address] 09/18/2023 Liz [place] Pelvic pain R10.2 Assessments Encounter Date Diagnosis (ICD Code) Assessment Notes Treatment Notes Treatment Clinical Notes 09/18/2023 Pelvic pain (ICD-10 - R10.2) 09/18/2023 Pelvic pain (ICD-10 - R10.2) -New onset pelvic pain -Discussed etiologies including port cdl a driver, GI, MSK -S/p hysterectomy procedure 6 months [...] 4 weeks for review of symptoms 03/12/2024 Commodity Merchant exam without 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 (ICD-10 - Z01.419) 03/12/2024 Encounter for screening mammogram for malignant neoplasm of breast (ICD-10 - Z12.31) Plan Of Treatment No Information Insurance Providers Payer Name Payer Address Payer Phone Subscriber Number Group Number Insured Name Patient Relationship to Insured Coverage Start Date Coverage End Date [place] P[employer] [address] [place] [address] [phone] [id number] Augustine Brown Self - patient is the insured Medical (General) History Medical History History ICD Code breast cancer hypertension thyroid disorder anxiety acid reflux migraine lympedema seasonal allergies Surgical History Surgery Date(Month/Year) bilateral mastectomy C/S x 2 tonsillectomy Cholecystectomy uterine ablation TRH with BSO Hospitalization History Reason Date(Month/Year) surgery
--- OUTSIDE RECORDS SUMMARY | 2024-08-17 15:47 | XMS_ITS | Encounter Summary ---
Author Organization [facility] Address [address] [place] [address] Care Team Providers Care Earth Science Technical Officer Name Role Phone Herbert Hair MD Primary Care Provider [phone] Encounter Details Date Type Department Care Team (Late st Contact Info) Description 07/04/2024 Telephone [facility] [address] [phone] Anuradha Alston APRN [address] [facility] [address] [place] [address] Social History Tobacco Use Types Packs/Day Years [...] or training? Not on file Preferred Language Citizen Of [place] 07/20/2023 PHQ-2 Answer Date Recorded Retired PHQ-9: Brief Depression Severity Measure Score 1 10/05/2023 Comments No Sex and Gender Information Value Date Recorded Sex Assigned at Not on file Legal Sex Female 10:43 AM EDT Gender Identity Not on file Sexual Orientation Not on file documented as of this encounter Miscellaneous Notes * Telephone Encounter - Lance Lyon MA - 07/04/2024 9:38 AM EDT error documented in this encounter Plan of Treatment Upcoming Encounters Date Type Department Care Team (Late st Contact Info) Description 09/18/2024 3:30 PM EST Office Visit [facility]EMAT[facility] & ONCOLOGY [address] [facility] [address] [address] [place] [address] Bre Crenshaw MD [address] [facility] [address] [place] [address] 12/31/2024 9:00 AM EDT Office Visit [facility] [address] [facility] [place] [phone] Oralia Saha TELEPHONE DIAPHRAGM ASSEMBLER [address] [facility] [address] [place], [place] [phone] 05/12/2025 1:45 PM EDT Office Visit [facility] [address] [facility] [address] [address] [place] [id number] Obed Woodard MD [address] [facility] [address] [place] [phone] documented as of this encounter Visit Diagnoses Not on filedocumented in this encounter Additional Health Concerns Infection Onset Date Last Indicated Resolved Time MRSA 07/20/2023 07/20/2023 Assessment Noted Time PHQ-2 Depression Total Score: 1 10/05/19 24 8:56 AM EST documented as of this encounter Care Teams Earth Science Technical Officer Relationship Specialty Start Date End Date Herbert Hair MD [address] [facility] [address] [place] [address] PCP - General Adolescent Medicine 03/03/22 documented as of this encounter
--- OUTSIDE RECORDS SUMMARY | 2024-08-17 15:47 | XMS_ITS | Encounter Summary ---
Author Organization [facility] Address [address] [place] [address] Care Team Providers Care Contract Administrative Assistant Name Role Phone Herbert Hair MD Primary Care Provider [phone] Reason for Referral * Monitoring (Routine) - Closed Specialty Diagnoses / Procedures Referred By Nasrin t Referred To Contact Cardiology Diagnoses Pulsatile tinnitus Procedures Holter Monitor - 72 Hour Up To 15 Days Obed Woodard MD [address] [facility] [address] [place] [phone] Phone: tel: fax: [facility] [address] [place] [address] Phone: tel: fax: Referral ID Status Reason Start Date Expiration Date Visits Re quested Visits Authorized [id number] Closed 03/11/2024 03/11/2025 1 1 * Diagnostic Imaging (Routine) - Closed Specialty Diagnoses / Procedures Referred By Nasrin t Referred To Contact Diagnoses Pulsatile tinnitus Procedures Duplex Carotid Ultrasound CAR Obed Woodard MD [address] [facility] [address] [place] [address] Phone: tel: fax: [facility] [address] [place] [address] Phone: tel: Referral ID Status Reason Start Date Expiration Date Visits Re quested Visits Authorized [id number] Closed 03/11/2024 03/11/2025 1 1 Reason for Visit * Reason Comments Chronic chest pain with low to moderate risk for CAD Follow-up Encounter Details Date Type Department Care Team (Late st Contact Info) Description 03/11/2024 3:15 PM EDT Office Visit [facility] [address] [place] [address] Obed Woodard MD [address] [facility] [address] [place] [address] Pulsatile tinnitus (Primary Dx) Social History Tobacco Use Types [...] or training? Not on file Preferred Language [place] 07/20/2023 PHQ-2 Answer Date Recorded Retired PHQ-9: Brief Depression Severity Measure Score 1 10/05/2023 Comments No Sex and Gender Information Value Date Recorded Sex Assigned at Not on file Legal Sex Female 10:43 AM EDT Gender Identity Not on file Sexual Orientation Not on file documented as of this encounter Last Filed Vital Signs Vital Sign Reading Time Taken Comments Blood Pressure 132/96 03/11/2024 3:06 PM EDT Pulse 78 03/11/2024 3:06 PM EDT Temperature - - Respiratory Rate - - Oxygen Saturation 97% 03/11/2024 3:06 PM EDT Inhaled Oxygen Concentration - - Weight 92.4 kg (203 lb 12.8 oz) 03/11/2024 3:06 PM EDT Height 157.5 cm (5' 2 ) 03/11/2024 3:06 PM EDT Body Mass Index 37.28 03/11/2024 3:06 PM EDT documented in this encounter Progress Notes * Obed Woodard MD - 03/11/2024 3:15 PM EDT [facility] Cardiology Follow Up Visit Leydi Singh [place] 1975 VISIT DATE: 03/11/24 PCP: Herbert Hair MD [address] [place] [address] [facility] [address] CC: Chronic chest pain with low to moderate risk for CAD and Follow-up Problem List: 1. Left breast CA: Estrogen progesterone positive, HER2 negative. - bilateral mastectomy -Status post anthracycline chemo 2. Hypertension 3. Hypothyroid 4. GERD 5. Migraine 6. Status post hysterectomy Echo July 2023 Left ventricular systolic function is normal. Calculated left ventricular EF = 61% Global longitudinal LV strain (GLS) = -22.8% There is no evidence of pericardial effusion Stress test July 2023 Patient denied chest pain with exercise Expected exercise duration = 8:10. Actual exercise duration = 3:52. HORACIO (+45). Patient stopped secondary to shortness of breath and fatigue There were no ischemic EKG changes Myocardial perfusion imaging indicates a normal myocardial perfusion study with no evidence of ischemia. Left ventricular ejection fraction is hyperdynamic (Calculated EF > 70%). No significant coronary artery calcification Impressions are consistent with a low risk study. No evidence of ischemia, there was impaired exercise tolerance. History of Present Illness: Leydi Brown Is a 49 y.o. female with pertinent cardiac history detailed above. Patient has left breast cancer status post mastectomy and anthracycline chemo. With exertion she states she does get some dyspnea or forceful heartbeats associated with some chest pain. She had a stress test inthe fall. She did have impaired exercise tolerance but no evidence of ischemia. Echo showed preserved strain and EF. She has also been complaining of some pulsatile tinnitus. This could be related toher HCTZ. She is also getting an ENT evaluation. She had an LDL of 91 on last check. No carotid bruits on exam today. Patient Active Problem List Diagnosis Date Noted Cellulitis 07/20/2023 Fibroid 03/05/2023 Encounter for care related to vascular access port 07/13/2022 Malignant neoplasm of lower-outer quadrant of left female breast 06/13/2022 Malignant neoplasm of left breast in female, estrogen receptor positive 05/24/2022 Intramural leiomyoma of uterus 12/06/2020 Allergies Allergen Reactions Chlorhexidine Gluconate Rash Social History Socioeconomic History Marital status: Tobacco Use Smoking status: Never Passive exposure: Never Smokeless tobacco: Never Vaping Use Vaping status: Never Used Substance and Sexual Activity Alcohol use: Never Drug use: Never Sexual activity: Yes Partners: Male control/protection: Hysterectomy Family History Problem Relation Age of Onset Diabetes Mother Hypertension Mother Diabetes Father Hypertension Father Diabetes Maternal Grandmother Heart disease Maternal Grandfather Breast cancer Neg Hx Ovarian cancer Neg Hx Endometrial cancer Neg Hx Uterine cancer Neg Hx Colon cancer Neg Hx Current Medications: Current Outpatient Medications: anastrozole (ARIMIDEX) 1 MG tablet, Take 1 tablet by mouth Daily., Disp: 30 tablet, Rfl: 11 aspirin 81 MG EC tablet, Take 1 tablet by mouth Daily., Disp: , Rfl: Biotin 5 MG capsule, Take 1 capsule by mouth Daily., Disp: , Rfl: Cholecalciferol (VITAMIN D-3 PO), Take by mouth., Disp: , Rfl: Cranberry-Vitamin C-Probiotic (AZO CRANBERRY PO), Take by mouth., Disp: , Rfl: desmopressin (DDAVP) 0.2 MG tablet, Take 2 tablets by mouth Every Night., Disp: 60 tablet, Rfl: 0 esomeprazole (nexIUM) 20 MG capsule, Take 2 capsules by mouth Every Morning Before Breakfast., Disp: , Rfl: fluticasone (FLONASE) 50 MCG/ACT nasal spray, 2 sprays into the nostril(s) as directed by provider Daily., Disp: , Rfl: levothyroxine (SYNTHROID, LEVOTHROID) 50 MCG tablet, Take 1 tablet by mouth Daily., Disp: , Rfl: Loratadine 10 MG capsule, Take 1 capsule by mouth Daily., Disp: , Rfl: methenamine (HIPREX) 1 g tablet, Take 1 tablet by mouth 2 (Two) Times a Day With Meals., Disp: 60 tablet, Rfl: 11 [place] Lear-3 Fatty Acids (OMEGA-3 PO), Take by mouth., Disp: , Rfl: MV-Min-Fe Fum-FA-DHA ( Multivitamin Plus DHA) 27-0.8-250 MG capsule, Take 900 doses by mouth Daily., Disp: , Rfl: propranolol (INDERAL) 20 MG tablet, Take 1 tablet by mouth every night at bedtime., Disp: , Rfl: rosuvastatin (CRESTOR) 10 MG tablet, Take 1 tablet by mouth Daily., Disp: 90 tablet, Rfl: 3 sertraline (ZOLOFT) 25 MG tablet, Take 1 tablet by mouth Daily., Disp: , Rfl: telmisartan-hydrochlorothiazide (MICARDIS HCT) 40-12.5 MG per tablet, Take 1 tablet by mouth Every Evening., Disp: , Rfl: vitamin B-12 (CYANOCOBALAMIN) 1000 MCG tablet, Take 1 tablet by mouth Daily., Disp: , Rfl: estradiol (ESTRACE) 0.1 MG/GM vaginal cream, Apply a gram to the urethra daily, Disp: 42.5 g, Rfl: 11 levoFLOXacin (Levaquin) 250 MG tablet, Take 1 tablet by mouth Daily for 3 days., Disp: 3 tablet, Rfl: 0 Misc Natural Products (OSTEO BI-FLEX ADV JOINT SHIELD PO), Take 1 tablet by mouth Daily., Disp: , Rfl: ondansetron ODT (ZOFRAN-ODT) 8 MG disintegrating tablet, DISSOLVE 1 TABLET IN MOUTH EVERY 8 HOURS NEEDED FOR NAUSEA FOR VOMITING, Disp: 24 tablet, Rfl: 0 Review of Systems HENT: Pulsatile tinnitus Cardiovascular: Positive for chest pain and palpitations. Respiratory: Negative for shortness of breath. Vitals: 03/11/24 1506 BP: 132/96 BP Location: Right arm Patient Position: Sitting Cuff Size: Adult Pulse: 78 SpO2: 97% Weight: 92.4 kg (203 lb 12.8 oz) Height: 157.5 cm (62 ) Physical Exam Constitutional: Appearance: Normal appearance. Neck: Vascular: No carotid bruit. Cardiovascular: Rate and Rhythm: Normal rate. Pulses: Normal pulses. Heart sounds: Normal heart sounds. Pulmonary: Effort: Pulmonary effort is normal. Breath sounds: Normal breath sounds. Musculoskeletal: Right lower leg: No edema. Neurological: Mental Status: She is alert. Diagnostic Data: Procedures Lab Results Component Value Date TRIG 84 07/26/2022 HDL 47 07/26/2022 Lab Results Component Value Date GLUCOSE 156 (H) 01/31/2024 BUN 14 01/31/2024 CREATININE 0.82 01/31/2024 NA 137 01/31/2024 K 3.9 01/31/2024 CL 99 01/31/2024 CO2 24.3 01/31/2024 Lab Results Component Value Date HGBA1C 6.20 (H) 01/31/2024 Lab Results Component Value Date WBC 5.32 01/10/2024 HGB 12.0 01/10/2024 HCT 35.5 01/10/2024 PLT 290 01/10/2024 Assessment: No diagnosis found. Plan: 1. Left breast cancer -Status postmastectomy -Normal EF on baseline echo, borderline strain. -Completed anthracycline chemo -Completed radiation -On anastrozole -Echo July 2023: With normal EF and strain -Stress test July 2023: Limited exercise capacity. Normal perfusion. No significant coronary artery calcification 2. HTN -d/c HCTZ -increase telmisartan to 80mg daily 3. Healthcare maintenance Last LDL November. On anastrozole. -Monitor for now given no history of CAD and no coronary artery calcification 4. Pulsatile tinnitus -carotid duplex ordered -she is seeing ENT 5. Palpitations -1 week Holter monitor ACP discussion was held with the patient during this visit. Patient does not have an advance directive, declines further assistance. Obed Woodard MD [facility] documented in this encounter Plan of Treatment Upcoming Encounters Date Type Department Care Team (Late st Contact Info) Description 09/18/2024 3:30 PM EST Office Visit [facility] [address] [place] [address] Bre Crenshaw MD [address] [facility] [place] [address] 12/31/2024 9:00 AM EDT Office Visit [facility] [address] [place] [address] Oralia Saha APRN [address] [facility] [address] [place] [address] 05/12/2025 1:45 PM EDT Office Visit [facility] [address] [place] [phone] Obed Woodard MD [address] [facility] [address] [place], [place] [phone] documented as of this encounter Results * DUPLEX CAROTID BILATERAL CAR - PERFORMED PROCEDURE (04/01/2024 8:23 AM EDT) Prox CCA PSV 63.1 cm/sec Prox CCA EDV 10.2 cm/sec Right Mid CCA PSV 75.7 cm/sec right Mid CCA EDV 15.7 cm/sec Dist CCA PSV 74.2 cm/sec Dist CCA EDV 20.6 cm/sec Prox ICA PSV 72.2 cm/sec Prox ICA EDV 30.0 cm/sec Mid ICA PSV 84.0 cm/sec Mid ICA EDV 37.8 cm/sec Dist ICA PSV 92.4 cm/sec Dist ICA EDV 40.8 cm/sec Prox ECA PSV 85.5 cm/sec Prox ECA EDV 14.7 cm/sec Vertebral A PSV 54.1 cm/sec Vertebral A EDV 18.4 cm/sec Prox SCLA PSV 103.0 cm/sec Prox CCA PSV 122.0 cm/sec Prox CCA EDV 30.6 cm/sec left Mid CCA PSV 90.0 cm/sec left Mid CCA EDV 33.5 cm/sec Dist CCA PSV 78.5 cm/sec Dist CCA EDV 28.0 cm/sec Prox ICA PSV 93.4 cm/sec Prox ICA EDV 31.9 cm/sec Mid ICA PSV 75.8 cm/sec Mid ICA EDV 31.7 cm/sec Dist ICA PSV 103.0 cm/sec Dist ICA EDV 42.2 cm/sec Prox ECA PSV 80.3 cm/sec Prox ECA EDV 17.1 cm/sec Vertebral A PSV 46.7 cm/sec Vertebral A EDV 17.6 cm/sec Prox SCLA PSV 106.0 cm/sec Right arm BP 115/77 mmHg ICA/CCA ratio 1.22 ICA/CCA ratio 1.14 Anatomical Region Laterality Modality Ultrasound Narrative 04/01/2024 9:31 AM EDT ?Right internal carotid artery demonstrates normal flow without evidence of hemodynamically significant stenosis. ?Left internal carotid artery demonstrates normal flow without evidence of hemodynamically significant stenosis. ?Vertebral artery flow is antegrade bilaterally Study Impression ? ? Right ICA: Imaging indicates normal flow without evidence of hemodynamically significant stenosis. ? ? Left ICA: Imaging indicates normal flow without evidence of hemodynamically significant stenosis. Study Findings ? ? Right CCA Prox: No plaque visualized. ? Right CCA Mid: Intima-medial thickening noted. ? ? Right CCA Dist: Intima-medial thickening noted. ? ? Right ICA Prox: No plaque visualized. ? ? Right ICA Mid: No plaque visualized. ? ? Right ICA Dist: No plaque visualized. ? ? Right ECA: No plaque visualized. ? ? Right Vertebral: Antegrade flow noted. ? ? Left CCA Prox: No plaque visualized. ? Left CCA Mid: No plaque visualized. ? ? Left CCA Dist: No plaque visualized. ? ? Left ICA Prox: No plaque visualized. ? ? Left ICA Mid: No plaque visualized. ? ? Left ICA Dist: No plaque visualized. ? ? Left ECA: No plaque visualized. ? ? Left Vertebral: Antegrade flow noted. No elevated velocities detected bilateral ICA. Antegrade flow detected in Vertebral Arteries, bilaterally. Unable to obtain left arm BP due to lymphedema. No prior for comparison. Additional Study Details The study is technically good for diagnosis. Obed Woodard MD CV VASCULAR ORDERABLES Final Result * HOLTER MONITOR >48HRS UP TO 7 DAYS HOOK-UP & INTERP (03/11/2024 3:54 PM EDT) Anatomical Region Laterality Modality Other Narrative 03/24/2024 1:34 PM EDT ?Benign study. ?Less than 1% PACs and PVCs. ?4 beat episode of SVT. Study Description Monitor placed on patient by AL on 03/11/2024 . Instructions were provided to patient on use of holter monitor and duration of monitoring. The monitor was scanned on 03/24/2024. The patient was monitored for 6 days 1 hours. Indications for this exam include palpitations. Average HR: 83. Min HR: 51. Max HR: 171. Obed Woodard MD [facility] CARDIAC SERVICES ORD ERABLES Final Result documented in this encounter Visit Diagnoses Diagnosis Pulsatile tinnitus- Primary Pulsatile tinnitus Pulsatile tinnitus documented in this encounter Additional Health Concerns Infection Onset Date Last Indicated Resolved Time MRSA 07/20/2023 07/20/2023 Assessment Noted Time PHQ-2 Depression Total Score: 1 10/05/19 24 8:56 AM EST documented as of this encounter Care Teams Contract Administrative Assistant Relationship Specialty Start Date End Date Herbert Hair MD [address] [facility] [address] [facility] [place] [address] PCP - General Adolescent Medicine 03/03/22 documented as of this encounter
--- OUTSIDE RECORDS SUMMARY | 2024-08-17 15:47 | XMS_ITS ---
Author Organization [facility] Address [address] [place] [address] Care Team Providers Care Instructor Of Nursing Name Role Phone Erika Awad Unavailable [phone] Allergies No Known Allergies REASON FOR VISIT [...] 03/12/2024 Encounters Encounter Location Date Provider Diagnosis [facility] [address] [place] [address] 03/12/2024 Erika Awad Lumber Grader exam without 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 Z01.419 and Encounter for screening mammogram for malignant neoplasm of breast Z12.31 Assessments Encounter Date Diagnosis (ICD Code) Assessment Notes Treatment Notes Treatment Clinical Notes 03/12/2024 Lumber Grader exam without 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 (ICD-10 - Z01.419) 03/12/2024 Encounter for screening mammogram for malignant neoplasm of breast (ICD-10 - Z12.31) Plan Of Treatment No Information Progress Notes * Leydi BROWNDOB:[birth year] (49 yo F)Acc No.[id number]:03/12/2024 Progress Note Patient:?Leydi BROWN Provider:?Erika Awad MD :1975???Age:49 Y???Sex:Female D ate:03/12/2024 Address:[address] [place] [address], [id number] Subjective: * Chief Complaints: * ???Annual * HPI: ???Annual:?49 year old female presents with c/o Annual exam, post hysterectomy.? * Medical History:? * Lumber Grader History:?Last Mammogram Date:?05/2022 , BI-RADS Category 2 [...] lesion.?PELVIC LYMPH NODES:?No lymphadenopathy.?limited by body habitus. ???Chair Frame Builder: ?Chair Frame Builder Status?MJONES.? Assessment: * Assessment: 1.?Lumber Grader exam without 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 - Z01.419 (Primary)?2.?Encounter for screening mammogram for malignant neoplasm of breast - Z12.31? Plan: * Treatment: * Procedure Codes:?83497 Pelvi c examination [List separately in addition [...] indicated * Billing Information: * Visit Code:? 83862 Est Pt Annual 40-64 yr old. * Procedure Codes:? 47970 Pelvic examination [List separately in addition to code for primary procedure]. * Sign off status: Completed Visit Status:?CHK (Check Out ) true * Provider:?Erika Awad MD Date:?03/12 Generated for Shikhai vadim/Anne/eTransmitting on:?08/17/2024 03:24 PM EST History and Physical Notes * [...] ABDOMINAL/GASTROINTESTINAL: Abdomen nont kwame, no masses palpated Chair Frame Builder Chair Frame Builder Status MJONES Breast Examination BREASTS: Surgically ab sent AXILLARY LYMPH NODES: No lymphadenopathy
--- OUTSIDE RECORDS SUMMARY | 2024-08-17 15:47 | XMS_ITS ---
Care Plan - [facility], [facility] Created on: August 17, 2024 Leydi Brown : 1975 Sex: Female Author Organization [facility] Address [address] [place] [address] Phone Care Team Providers Care Obstetrical Nurse Name Role Phone Saul Stephens PA-C [phone]
--- OUTSIDE RECORDS SUMMARY | 2024-08-17 15:47 | XMS_ITS | Encounter Summary ---
Author Organization [facility] Address [address] [place] [address] Care Team Providers Care Microelectronics Assembler Name Role Phone Herbert Hair MD Primary Care Provider + [phone] Encounter Details Date Type Department Care Team (Late st Contact Info) Description 05/28/2024 3:20 PM EDT Lab [facility] [address] [place] [phone] Malignant neoplasm of lower-inner quadrant of left breast in female, estrogen receptor positive Social History Tobacco Use Types Packs/Day Years [...] or training? Not on file Preferred Language Guyanese 07/20/2023 PHQ-2 Answer Date Recorded Retired PHQ-9: [...] Description 09/18/2024 3:30 PM EST Office Visit [facility] HEMATOLOGY & ONCOLOGY [address] [facility] [address] [place] [address] Bre Crenshaw MD [address] [facility] [address] [place] [address] 12/31/2024 9:00 AM EDT Office Visit [facility] UROLOGY [address] [facility] [address] [place] [address] Oralia Saha APRN [address] [facility] [address] [place] [address] 05/12/2025 1:45 PM EDT Office Visit [facility] CARDIOLOGY [address] [place] [address] Obed Woodard MD [address] [facility] [address] [place] [address] documented as of this encounter Procedures Procedure Name Priority Date/Time Associated Diagnosis Comments CBC WITH AUTO DIFFERENTIAL Routine 05/28/2024 3:20 PM EDT Malignant neoplasm of lower-inner quadrant of left breast in female, estrogen receptor positive CBC AND DIFFERENTIAL Routine 05/28/2024 3:20 PM EDT Malignant neoplasm of lower-inner quadrant of left breast in female, estrogen receptor positive COMPREHENSIVE METABOLIC PANEL Routine 05/28/2024 3:20 PM EDT Malignant neoplasm of lower-inner quadrant of left breast in female, estrogen receptor positive documented in this encounter Results * CBC Auto Differential (05/28/2024 3:20 PM EDT) WBC 5.55 3.40 - 10.80 10*3/mm3 05/28/2024 3:30 PM EDT [facility] RBC 4.31 3.77 - 5.28 10*6/mm3 05/28/2024 3:30 PM EDT [facility] Hemoglobin 13.7 12.0 - 15.9 g/dL 05/28/2024 3:30 PM EDT [facility] Hematocrit 39.4 34.0 - 46.6 % 05/28/2024 3:30 PM EDT [facility] MCV 91.4 79.0 - 97.0 fL 05/28/2024 3:30 PM EDT [facility] MCH 31.8 26.6 - 33.0 pg 05/28/2024 3:30 PM EDT [facility] MCHC 34.8 31.5 - 35.7 g/dL 05/28/2024 3:30 PM EDT [facility] RDW 12.9 12.3 - 15.4 % 05/28/2024 3:30 PM EDT [facility] RDW-SD 43.2 37.0 - 54.0 fl 05/28/2024 3:30 PM EDT [facility] MPV 10.4 6.0 - 12.0 fL 05/28/2024 3:30 PM EDT [facility] Platelets 216 140 - 450 10*3/mm3 05/28/2024 3:30 PM EDT [facility] Neutrophil % 45.4 42.7 - 76.0 % 05/28/2024 3:30 PM EDT [facility] Lymphocyte % 43.4 19.6 - 45.3 % 05/28/2024 3:30 PM EDT [facility] Monocyte % 7.0 5.0 - 12.0 % 05/28/2024 3:30 PM EDT [facility] Eosinophil % 3.8 0.3 - 6.2 % 05/28/2024 3:30 PM EDT [facility] Basophil % 0.4 0.0 - 1.5 % [facility] Immature Grans % 0.0 0.0 - 0.5 % 05/28/2024 3:[facility] Neutrophils, Absolute 2.52 1.70 - 7.00 10*3/mm3 05/28/2024 3:30 PM EDT [facility] Lymphocytes, Absolute 2.41 0.70 - 3.10 10*3/mm3 05/28/2024 3:30 PM EDT [facility] Monocytes, Absolute 0.39 0.10 - 0.90 10*3/mm3 05/28/2024 3:30 PM EDT [facility] Eosinophils, Absolute 0.21 0.00 - 0.40 10*3/mm3 05/28/2024 3:30 PM EDT [facility] Basophils, Absolute 0.02 0.00 - 0.20 10*3/mm3 05/28/2024 3:30 PM EDT [facility] Immature Grans, Absolute 0.00 0.00 - 0.05 10*3/mm3 05/28/2024 3:30 PM EDT [facility] Blood Venipuncture / Unknown 05/28/2024 3:20 PM EDT 05/28/2024 3:20 PM EDT Bre Crenshaw MD LAB BLOOD ORDERABLES Final Resul t [facility]
[address] [place] [address], * (ABNORMAL) Comprehensive Metabolic Panel (05/28/2024 3:20 PM EDT) Glucose 177(H) 65 - 99 mg/dL 05/28/2024 4:39 PM EDT [facility] BUN 14 6 - 20 mg/dL 05/28/2024 4:39 PM EDT [facility] Creatinine 0.94 0.57 - 1.00 mg/dL 05/28/2024 4:39 PM EDT [facility] Sodium 139 136 - 145 mmol/L 05/28/2024 4:39 PM EDT [facility] Potassium 3.4(L) 3.5 - 5.2 mmol/L 05/28/2024 4:39 PM EDT [facility] Comment:Slight hemolysis det ected by analyzer. Result may be falsely elevated. Chloride 99 98 - 107 mmol/L 05/28/2024 4:39 PM EDT [facility] CO2 27.0 22.0 - 29.0 mmol/L 05/28/2024 4:39 PM EDT [facility] Calcium 9.5 8.6 - 10.5 mg/dL 05/28/2024 4:39 PM EDT [facility] Total Protein 7.4 6.0 - 8.5 g/dL 05/28/2024 4:39 PM EDT [facility] Albumin 4.5 3.5 - 5.2 g/dL 05/28/2024 4:39 PM EDT [facility] ALT (SGPT) 28 1 - 33 U/L 05/28/2024 4:39 PM EDT [facility] AST (SGOT) 21 1 - 32 U/L 05/28/2024 4:39 PM EDT [facility] Alkaline Phosphatase 87 39 - 117 U/L 05/28/2024 4:39 PM EDT [facility] Total Bilirubin 0.3 0.0 - 1.2 mg/dL 05/28/2024 4:39 PM EDT [facility] Globulin 2.9 gm/dL 05/28/2024 4:39 PM EDT [facility] Comment:Calculated Result A/G Ratio 1.6 g/dL 05/28/2024 4:39 PM EDT [facility] BUN/Creatinine Ratio 14.9 7.0 - 25.0 05/28/2024 4:39 PM EDT [facility] Anion Gap 13.0 5.0 - 15.0 mmol/L 05/28/2024 4:39 PM EDT [facility] eGFR 74.1 >60.0 mL/min/1.7 3 05/28/2024 4:39 PM EDT [facility] Blood Venipuncture / Unknown 05/28/2024 3:20 PM EDT 05/28/2024 3:20 PM EDT Narrative [facility] - 05/28/2024 4:39 PM EDT GFR Normal >60 Chronic Kidney Disease <60 Kidney Failure <15 us Bre Crenshaw MD LAB BLOOD ORDERABLES Final Resul t [facility]
[address] [place] [address], documented in this encounter Visit Diagnoses Diagnosis Malignant neoplasm of lower-inner quadrant of left breast in female, estrogen receptor positive documented in this encounter Additional Health Concerns Infection Onset Date Last Indicated Resolved Time MRSA 07/20/2023 07/20/2023 Assessment Noted Time PHQ-2 Depression Total Score: 1 10/05/19 24 8:56 AM EST documented as of this encounter Care Teams Microelectronics Assembler Relationship Specialty Start Date End Date Herbert Hair MD [address] [place] [facility] [address] [place] [id number] PCP - General Adolescent Medicine 03/03/22 documented as of this encounter
--- OUTSIDE RECORDS SUMMARY | 2024-08-17 15:47 | XMS_ITS | Encounter Summary ---
Author Organization [facility] Address [address] [place] [address] Care Team Providers Care Change Management Name Role Phone Herbert Hair MD Primary Care Provider + [phone] Reason for Visit * Monitoring (Routine) - Closed Specialty Diagnoses / Procedures Referred By Nasrin hernandez Referred To Contact Cardiology Diagnoses Pulsatile tinnitus Procedures Holter Monitor - 72 Hour Up To 15 Days Obed Woodard MD [address] [facility] [address] [facility] [address] [place] [address] Phone: tel: fax: [facility] [address] [facility] [address] [place] [address] Phone: tel: fax: Referral ID Status Reason Start Date Expiration Date Visits Re quested Visits Authorized [id number] Closed 03/11/2024 03/11/2025 1 1 Encounter Details Date Type Department Care Team (Latest Contact Info) Description 03/11/2024 4:50 PM EDT Ancillary Procedure [facility] [address] [facility] [address] [place] [address] Pulsatile tinnitus Social History Tobacco Use Types Packs/Day Years [...] or training? Not on file Preferred Language Mozambican 07/20/2023 PHQ-2 Answer Date Recorded Retired PHQ-9: [...] [facility] [address] [facility] [address] [place] [address] Bre Crenshaw MD [address] [facility] [address] [place] [address] 12/31/2024 9:00 AM EDT Office Visit [facility] [address] [facility] [address] [place] [address] Oralia Saha APRN [address] [facility] [address] [place], [place] [id number] 05/12/2025 1:45 PM EDT Office Visit [facility] [address] [facility] [address] [place] [address] Obed Woodard MD [address] [facility] [address] [place] [id number] documented as of this encounter Procedures Procedure Name Priority Date/Time Associated Diagnosis Comments HOLTER MONITOR >48HRS UP TO 7 DAYS HOOK-UP & INTERP Routine 03/11/2024 3:54 PM EDT Pulsatile tinnitus documented in this encounter Results * HOLTER MONITOR >48HRS UP TO 7 [...] in this encounter Visit Diagnoses Diagnosis Pulsatile tinnitus documented in this encounter Additional Health Concerns Infection Onset Date Last Indicated Resolved Time MRSA 07/20/2023 07/20/2023 Assessment Noted Time PHQ-2 Depression Total Score: 1 10/05/19 24 8:56 AM EST documented as of this encounter Care Teams Change Management Relationship Specialty Start Date End Date Herbert Hair MD [address] [place] [address] [address] [place] [address] PCP - General Adolescent Medicine 03/03/22 documented as of this encounter
--- OUTSIDE RECORDS SUMMARY | 2024-08-17 15:47 | XMS_ITS | Encounter Summary ---
Author Organization [facility] Address [address] [place] [address] Care Team Providers Care Oil Well Shooter Name Role Phone Herbert Hair MD Primary Care Provider [phone] Encounter Details Date Type Department Care Team (Late st Contact Info) Description 05/28/2024 3:30 PM EDT Office Visit [facility] & [facility]COLOGY [address] [facility] [address] [place] [address] Hilda Jarvis, SUPERVISOR ASSEMBLY [address] [facility] [address] [place] [address] Malignant neoplasm of lower-outer quadrant of left breast of female, estrogen receptor positive (Primary Dx) Social History Tobacco Use Types Packs/Day Years Used Date Smoking Tobacco: Never Passive Smoke Exposure: Never Smokeless Tobacco: Never Tobacco Cessation:Counseling Given: Not Answered Alcohol Use Standard Drinks/Week Comments Never 0 [...] or training? Not on file Preferred Language Macedonian 07/20/2023 PHQ-2 Answer Date Recorded Retired PHQ-9: Brief Depression Severity Measure Score 1 10/05/2023 Comments No Sex and Gender Information Value Date Recorded Sex Assigned at Not on file Legal Sex Female 10:43 AM EDT Gender Identity Not on file Sexual Orientation Not on file documented as of this encounter Last Filed Vital Signs Vital Sign Reading Time Taken Comments Blood Pressure 137/89 05/28/2024 3:22 PM EDT Pulse 100 05/28/2024 3:22 PM EDT Temperature - - Respiratory Rate 18 05/28/2024 3:22 PM EDT Oxygen Saturation 96% 05/28/2024 3:22 PM EDT Inhaled Oxygen Concentration - - Weight 92.1 kg (203 lb) 05/28/2024 3:22 PM EDT Height 157.5 cm (5' 2.01 ) 05/28/2024 3:22 PM ED T Body Mass Index 37.12 05/28/2024 3:22 PM EDT documented in this encounter Progress Notes * Hilda Jarvis, SUPERVISOR ASSEMBLY - 05/28/2024 3:30 PM EDT PROBLEM LIST: 1. [id number] ER+ (90%), [place]+ (10%), Her2 negative (1+) invasive ductal carcinoma of the left breast A) PET/CT 05/30/22 showed left breast mass with left axillary adenopathy, no evidence of distant metastatic disease. bilateral mastectomy on 06/13/22. Pathology showed a 2.4 cm IDC, intermediate grade.2/8 LN involved. B) adjuvant ddAC followed by taxol started 07/13/22 C) Completed radiation 11/29/2022. Started Tamoxifen 12/07/2022. Tamoxifen stopped 02/22/2023. Changed to anastrozole 04/11/2023 d/t intolerance of tamoxifen. 2. Hypertension 3. Hypothyroidism 4. GERD 5. Total laparoscopic hysterectomy bilateral salpingoophorectomy 03/15/2023 Subjective CHIEF COMPLAINT: breast cancer HISTORY OF PRESENT ILLNESS: Leydi Brown returns for follow-up. She continues on Anastrozole and is tolerating it relatively well. She continues to have generalized arthralgias. She continues to have problems with frequent UTIs. She has not been using vaginal estrogen cream asprescribed due to concerns for risk of breast cancer recurrence. She has been hearing heartbeats/ thumping in her ear. She has seen cardiology and ENT regarding the thumping in the ear. Dr. Elise prescribed patient migraine medication for what he thinks mightbe otic migraines. She is constantly tired. She is scheduled for a sleep study at [facility] soon. Objective BP 137/89 Pulse 100 Resp 18 Ht 157.5 cm (62.01 ) Wt 92.1 kg (203 lb) LMP (LMP Unknown) SpO2 96% BMI 37.12 kg/m?? Vitals: 05/28/24 1522 PainSc: 0-No pain General: well appearing female in no acute distress Neuro: alert and oriented Lymphadenopathy: No cervical, supraclavicular or axillary lymphadenopathy noted Chest wall: Linear nodule noted at 12:00 above mastectomy incision right chest wall, unchanged. Well-healed incision on the left with some scar tissue at the lateral edge of the incision Extremeties: no lower extremity edema Skin: no lesions, bruising, or petechiae. Psych: mood and affect appropriate RECENT LABS: Lab Results Component Value Date WBC 5.32 01/10/2024 HGB 12.0 01/10/2024 HCT 35.5 01/10/2024 MCV 90.6 01/10/2024 PLT 290 01/10/2024 Lab Results Component Value Date GLUCOSE 156 (H) 01/31/2024 BUN 14 01/31/2024 CREATININE 0.82 01/31/2024 BCR 17.1 01/31/2024 K 3.9 01/31/2024 CO2 24.3 01/31/2024 CALCIUM 9.7 01/31/2024 ALBUMIN 4.2 01/10/2024 AST 16 01/10/2024 ALT 17 01/10/2024 ASSESSMENT AND PLAN: Leydi Brown is a 49 y.o. female with a T2 N1 M0 ER positive [place] positive HER2 negative invasive carcinoma of the left breast. Right chest nodule: She had a mammogram and ultrasound which was unremarkable. This area is clinically stable. Continue to monitor. She started tamoxifen 12/07/2022. Tamoxifen was changed to anastrozole due to intolerance on 04/11/2023. She is having some arthralgias. The arthralgias are manageable currently. CBC from today was reviewed and is normal. Anxiety/mood changes: Continue Zoloft. She is doing fairly well on this. Cardiac risk: followed by cardiology. Lymphedema left upper extremity: Continue compression sleeve. Bone density scan 05/14/2023 was normal. We will repeat bone density scan May 2025. Follow-up in 4 months with labs. Hilda Jarvis APRN [facility] Hematology [facility] On[facility] 05/28/2024 and continue CC: documented in this encounter Plan of Treatment Upcoming Encounters Date Type Department Care Team (Late st Contact Info) Description 09/18/2024 3:30 PM EST Office Visit [facility] & [facility]COLOGY [address] [facility] [address] [place] [address] Bre Crenshaw MD [address] [facility] [address] [place] [address] 12/31/2024 9:00 AM EDT Office Visit [facility] UR[facility] [address] [facility] [address] [place] [address] Oralia Saha SUPERVISOR ASSEMBLY [address] [facility] [address] [place], [place] [id number] 05/12/2025 1:45 PM EDT Office Visit [facility] [address] [facility] [address] [place] [address] Obed Woodard MD [address] [facility] [address] [place], [place] [id number] Scheduled Orders Name Type Priority Associated Diagnoses Orde r Schedule CBC & Differential Lab Panel Routine Malignant neoplasm of lower-outer quadrant of left breast of female, estrogen receptor positive Expected: 09/18/2024 (Approximate), Expires: 05/28/2025 Comprehensive Metabolic Panel Lab Routine Malignant neoplasm of lower-outer quadrant of left breast of female, estrogen receptor positive Expected: 09/18/2024 (Approximate), Expires: 05/29/2025 documented as of this encounter Visit Diagnoses Diagnosis Malignant neoplasm of lower-outer quadrant of left breast of female, estrogen receptor positive- Primary documented in this encounter Additional Health Concerns Infection Onset Date Last Indicated Resolved Time MRSA 07/20/2023 07/20/2023 Assessment Noted Time PHQ-2 Depression Total Score: 1 10/05/19 24 8:56 AM EST documented as of this encounter Care Teams Oil Well Shooter Relationship Specialty Start Date End Date Herbert Hair MD [address] [facility] [address] [place] [address] PCP - General Adolescent Medicine 03/03/22 documented as of this encounter
--- OUTSIDE RECORDS SUMMARY | 2024-08-17 15:47 | XMS_ITS | Encounter Summary ---
[facility] Organization [facility] Address [address] [place] [address] Care Team Providers Care Sawmill Manager Name Role Phone Herbert Hair MD Primary Care Provider + [phone] Reason for Referral * Diagnostic Imaging (Routine) - Closed Specialty Diagnoses / Procedures Referred By Contac t Referred To Contact Diagnoses Pulsatile tinnitus Procedures Duplex Carotid Ultrasound Obed Sanchez MD [address] [place] [address] Phone: tel: fax: [place] [phone] Phone: tel: Referral ID Status Reason Start Date Expiration Date Visits Re quested Visits Authorized [id number] Closed 03/11/2024 03/11/2025 1 1 Reason for Visit * Diagnostic Imaging (Routine) - Closed Specialty Diagnoses / Procedures Referred By Contac t Referred To Contact Diagnoses Pulsatile tinnitus Procedures Duplex Carotid Ultrasound Obed Sanchez MD [address] [place] [address] Phone: tel: fax: [facility] [address] [place] [address] Phone: tel: Referral ID Status Reason Start Date Expiration Date Visits Re quested Visits Authorized [id number] Closed 03/11/2024 03/11/2025 1 1 Encounter Details Date Type Department Care Team (Late st Contact Info) Description 04/01/2024 7:39 AM EDT - 04/01/2024 11:59 PM EDT Hospital Encounter [facility] [address] [facility] [address] [place] [address] Obed Woodard MD [address] [facility] [address] [place] [address] Pulsatile tinnitus Discharge Disposition: Home or Self Care Social History Tobacco Use Types Packs/Day Years [...] or training? Not on file Preferred Language Trinidadian 07/20/2023 PHQ-2 Answer Date Recorded Retired PHQ-9: Brief Depression Severity Measure Score 1 10/05/2023 Comments No Sex and Gender Information Value Date Recorded Sex Assigned at Not on file Legal Sex Female 10:43 AM EDT Gender Identity Not on file Sexual Orientation Not on file documented as of this encounter Medications at Time of Discharge anastrozole (ARIMIDEX) 1 MG tabletIndications:M alignant neoplasm of lower-inner quadrant of left breast in female, estrogen receptor positive Take 1 tablet by mouth once daily 30 tablet 11 03/28/2024 aspirin 81 MG EC tablet Take 1 tablet by mouth Daily. Biotin 5 MG capsule Take 1 capsule by mouth Daily. Cholecalciferol (VITAMIN D-3 PO) Take by mouth. Cranberry-Vitamin C-Probiotic (AZO CRANBERRY PO) Take by mouth. esomeprazole (nexIUM) 20 MG capsule Take 2 capsules by mouth Every Morning Before Breakfast. fluticasone (FLONASE) 50 MCG/ACT nasal spray Administer 2 sprays into the nostril(s) as directed by provider Daily. levothyroxine (SYNTHROID, LEVOTHROID) 50 MCG tablet Take 1 tablet by mouth Daily. 02/12/2023 Loratadine 10 MG capsule Take 1 capsule by mouth Daily. methenamine (HIPREX) 1 g tabletIndications:R ecurrent UTI Take 1 tablet by mouth 2 (Two) Times a Day With Meals. 60 tablet 11 12/27/2023 Misc Natural Products (OSTEO BI-FLEX ADV JOINT SHIELD PO) Take 1 tablet by mouth Daily. [place]-3 Fatty Acids (OMEGA-3 PO) Take by mouth. MV-Min-Fe Fum-FA-DHA ( Multivitamin Plus DHA) 27-0.8-250 MG capsule Take 900 doses by mouth Daily. propranolol (INDERAL) 20 MG tablet Take 1 tablet by mouth every night at bedtime. 08/12/2022 sertraline (ZOLOFT) 25 MG tablet Take 1 tablet by mouth Daily. 10/31/2023 vitamin B-12 (CYANOCOBALAMIN) 1000 MCG tablet Take 1 tablet by mouth Daily. desmopressin (DDAVP) 0.2 MG tabletIndications:N octuria more than twice per night Take 2 tablets by mouth Every Night. 60 tablet 02/22/2024 4 estradiol (ESTRACE) 0.1 MG/GM vaginal creamIndications:Re current UTI,Vaginal atrophy Apply a gram to the urethra daily 42.5 g 11 12/28/2023 4 ondansetron ODT (ZOFRAN-ODT) 8 MG disintegrating tabletIndications:M alignant neoplasm of lower-inner quadrant of left breast in female, estrogen receptor positive DISSOLVE 1 TABLET IN MOUTH EVERY 8 HOURS NEEDED FOR NAUSEA FOR VOMITING 24 tablet 02/26/2024 4 rosuvastatin (CRESTOR) 10 MG tablet Take 1 tablet by mouth Daily. 90 tablet 3 06/07/2023 4 telmisartan (MICARDIS) 80 MG tablet Take 1 tablet by mouth Daily. 30 tablet 11 03/11/2024 4 documented as of this encounter Plan of Treatment Upcoming Encounters Date Type Department Care Team (Late st Contact Info) Description 09/18/2024 3:30 PM EST Office Visit [facility] HEMATOLOGY & ONCOLOGY [address] [facility] [address] [place] [address] Bre Crenshaw MD [address] [facility] [address] [place] [address] 12/31/2024 9:00 AM EDT Office Visit [facility] UROLOGY [address] [facility] [address] [place] [address] Oralia Saha APRN [address] [facility] [address] [place], [place] [id number] 05/12/2025 1:45 PM EDT Office Visit [facility] CARDIOLOGY [address] [place] [address] Obed Woodard MD [address] [place] [address] documented as of this encounter Procedures Procedure Name Priority Date/Time Associated Diagnosis Comments DUPLEX CAROTID BILATERAL CAR - PERFORMED PROCEDURE Routine 04/01/2024 8:23 AM EDT Pulsatile tinnitus documented in this encounter Results * DUPLEX CAROTID BILATERAL [...] The study is technically good for diagnosis. us Obed Woodard MD CV VASCULAR ORDERABLES Final Result documented in this encounter Visit Diagnoses Diagnosis Pulsatile tinnitus documented in this encounter Additional Health Concerns Infection Onset Date Last Indicated Resolved Time MRSA 07/20/2023 07/20/2023 Assessment Noted Time PHQ-2 Depression Total Score: 1 10/05/19 24 8:56 AM EST documented as of this encounter Care Teams Sawmill Manager Relationship Specialty Start Date End Date Herbert Hair MD [address] [place] [facility] [address] [facility] [address] PCP - General Adolescent Medicine 03/03/22 documented as of this encounter
--- OUTSIDE RECORDS SUMMARY | 2024-08-17 15:47 | XMS_ITS | Encounter Summary ---
Author Organization [facility] Address [address] [place] [address] Care Team Providers Care Trench Pipe Layer Name Role Phone Herbert Hair MD Primary Care Provider [phone] Encounter Details Date Type Department Care Team (Late st Contact Info) Description 05/08/2024 Telephone [facility] CARDIOLOGY [address] [place] [address] Obed Woodard MD [address] [facility] [address] [place] [address] Social History Tobacco Use Types Packs/Day Years [...] or training? Not on file Preferred Language Cymro 07/20/2023 PHQ-2 Answer Date Recorded Retired PHQ-9: Brief Depression Severity Measure Score 1 10/05/2023 Comments No Sex and Gender Information Value Date Recorded Sex Assigned at Not on file Legal Sex Female 10:43 AM EDT Gender Identity Not on file Sexual Orientation Not on file documented as of this encounter Miscellaneous Notes * Telephone Encounter - Rocio Thakkar RN - 05/08/2024 3:11 PM EDT Spoke with patient, advised per can send in prescription for telmisartan/HCTZ * Telephone Encounter - Obed Woodard MD - 05/08/2024 3:09 PM EDT Yes that is okay. Can you reorder her previous medicine which is telmisartan 40- HCTZ 12.5 mg daily and she can discontinue the solo telmisartan medication * Telephone Encounter - Rocio Thakkar RN - 05/08/2024 2:42 PM EDT Patient called to ask about going back on telmisartan with HCTZ which was changed at her appt on 03/11/2024. The medication was changed to telmisartan 80 mg only. She reports since the change she has been super tired, has had a lot more headaches, and she just felt better on the 2 med combination. Advised will discuss with Dr. Woodard and let her know his recommendations. documented in this encounter Plan of Treatment Upcoming Encounters Date Type Department Care Team (Late st Contact Info) Description 09/18/2024 3:30 PM EST Office Visit [facility] HEMATOLOGY & ONCOLOGY [address] [facility] [address] [place] [id number] Bre Crenshaw MD [address] [facility] [address] [place] [address] 12/31/2024 9:00 AM EDT Office Visit [facility] UROLOGY [address] [facility] [address] [place] [address] Oralia Saha APRN [address] [facility] [address] [place] [address] 05/12/2025 1:45 PM EDT Office Visit [facility] CARDIOLOGY [address] [facility] [address] [place] [id number] Obed Woodard MD [address] [facility] [address] [place], [place] [id number] documented as of this encounter Visit Diagnoses Not on filedocumented in this encounter Additional Health Concerns Infection Onset Date Last Indicated Resolved Time MRSA 07/20/2023 07/20/2023 Assessment Noted Time PHQ-2 Depression Total Score: 1 10/05/19 24 8:56 AM EST documented as of this encounter Care Teams Trench Pipe Layer Relationship Specialty Start Date End Date Herbert Hair MD [facility] [address] [facility] [address] [place] [address] PCP - General Adolescent Medicine 03/03/22 documented as of this encounter
--- OUTSIDE RECORDS SUMMARY | 2024-08-17 15:47 | XMS_ITS | Clinical Summary ---
Author Organization [facility] Address [address] [place] [address] Care Team Providers Care Herb Doctor Name Role Phone Herbert Hair MD Primary Care Provider Allergies Active Allergy Reactions Criticality Noted Date Comments Chlorhexidine Gluconate Rash Low 03/07/2023 Medications fluticasone (FLONASE) 50 MCG/ACT nasal spray Administer 2 sprays into the nostril(s) as directed by provider Daily. Active propranolol (INDERAL) 20 MG tablet Take 1 tablet by mouth every night at bedtime. 2 Active MV-Min-Fe Fum-FA-DHA ( Multivitamin Plus DHA) 27-0.8-250 MG capsule Take 900 doses by mouth Daily. Active Biotin 5 MG capsule Take 1 capsule by mouth Daily. Active Loratadine 10 MG capsule Take 1 capsule by mouth Daily. Active esomeprazole (nexIUM) 20 MG capsule Take 2 capsules by mouth Every Morning Before Breakfast. Active levothyroxine (SYNTHROID, LEVOTHROID) 50 MCG tablet Take 1 tablet by mouth Daily. 3 Active Misc Natural Products (OSTEO BI-FLEX ADV JOINT SHIELD PO) Take 1 tablet by mouth Daily. Active aspirin 81 MG EC tablet Take 1 tablet by mouth Daily. Active sertraline (ZOLOFT) 25 MG tablet Take 1 tablet by mouth Daily. 4 Active methenamine (HIPREX) 1 g tabletIndications: Recurrent UTI Take 1 tablet by mouth 2 (Two) Times a Day With Meals. 60 tablet 11 4 Active Leonard-3 Fatty Acids (OMEGA-3 PO) Take by mouth. Active Cholecalciferol (VITAMIN D-3 PO) Take by mouth. Active vitamin B-12 (CYANOCOBALAMIN) 1000 MCG tablet Take 1 tablet by mouth Daily. Active Cranberry-Vitamin C-Probiotic (AZO CRANBERRY PO) Take by mouth. A ctive anastrozole (ARIMIDEX) 1 MG tabletIndications: Malignant neoplasm of lower-inner quadrant of left breast in female, estrogen receptor positive Take 1 tablet by mouth once daily 30 tablet 11 4 Active telmisartan-hydroc hlorothiazide (MICARDIS HCT) 40-12.5 MG per tablet Take 1 tablet by mouth Daily. 30 tablet 11 4 Active ondansetron ODT (ZOFRAN-ODT) 8 MG disintegrating tabletIndications: Malignant neoplasm of lower-inner quadrant of left breast in female, estrogen receptor positive Place 1 tablet on the tongue 3 (Three) Times a Day. 30 tablet 3 4 Active rosuvastatin (CRESTOR) 10 MG tablet Take 1 tablet by mouth Daily. Please obtain updated lipid lab work for future refills 90 tablet 4 Active mupirocin (BACTROBAN) 2 % ointment APPLY OINTMENT TOPICALLY TO AFFECTED AREA THREE TIMES DAILY 4 Active Active Problems Problem Noted Date Diagnosed Date Cellulitis 07/20/2023 Fibroid 03/05/2023 Encounter for care related to vascular access po rt 07/13/2022 Malignant neoplasm of lower- outer quadrant of left female breast 06/13/2022 Malignant neoplasm of left b reast in female, estrogen receptor positive 05/24/2022 Cancer Staging:Clinical:Stage IIA(cT2, cN1, cM0, G2, ER+, CT+, HER2-) - Signed by Bre Crenshaw MD on 05/24/2022 Intramural leiomyoma of uterus 12/06/2020 Encounters Date Type Department Care Team Description 07/04/2024 Telephone [facility] UROLOGY [address] [facility] [address] [place] [phone] Len Reese MD 07/04/2024 Telephone [facility] UROLOGY [address] [facility] [address] [place] [address] Anuradha Alston APRN 06/30/2024 9:50 AM EDT Office Visit [facility] UROLOGY [address] [facility] [address] [place] [address] Len Reese MD Nocturia more than twice per night (Primary Dx); Recurrent UTI 05/28/2024 3:30 PM EDT Office Visit [facility] HEMATOLOGY & ONCOLOGY [address] [facility] [address] [place] [address] Hilda Jarvis, DELIVERY CRE[employer] WORK[employer] Malignant neoplasm of lower-outer quadrant of left breast of female, estrogen receptor positive (Primary Dx) 05/28/2024 3:20 PM EDT Lab [facility]COL[facility] [address] [place] [address] Malignant neoplasm of lower-inner quadrant of left breast in female, estrogen receptor positive 05/25/2024 Refill [facility] CARDIOLOGY [address] [facility] [address] [place] [address] Obed Woodard MD Med Refill 05/18/2024 Refill [facility] HEMATOLOGY & ONCOLOGY [address] [facility] [address] [place] [address] Hilda Jarvis, DELIV[employer] 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[employer] WORKER Malignant neoplasm of lower-inner quadrant of left breast in female, estrogen receptor positive from Last 3 Months Immunizations Name Administration Dates Next Due COVID-19 (JESSENIA) 09/05/2021 Family History Medical History Relation Name Comments Diabetes Father Randall Pineda Hypertension Father Randall Pineda Heart disease Maternal Grandfather Diabetes Maternal Grandmother Diabetes Mother Susannah Pineda Hypertension Mother Susannah Miriam Breast cancer Neg Hx Colon cancer Neg Hx Endometrial cancer Neg Hx Ovarian cancer Neg Hx Uterine cancer Neg Hx Relation Name Status Comments Father Randall Pineda Maternal Grandfather Maternal Grandmother Mother Susannah Pineda Social History Tobacco Use Types Packs/Day Years [...] 0 10/26/2022 Abuse Screen Answer Date Recorded Unsafe at Home or Work/School Not on file Feels Threatened by Someone? Not on file Does Anyone Keep You from Co ntacting Others or Doint Things Outside the Home? Not on file 07/25/2024 Physical Sign of Abuse Present Not on file 1 Housing Stability Answer Date Recorded Current Living Arrangements Not on file 07/02 Potentially Unsafe Housing Conditions Not on sreedhar e 07/25/2024 Family and Community Support Answer Jesse e Recorded Help with Day-to-Day Activities Not on file 07/08/2023 Lonely or Isolated Not on file 07/08/2023 Employment Answer Date Recorded Do you want help finding or keeping work or a gideon b? Not on file 07/08/2023 Disabilities Answer Date Recorded Concentrating, Remembering, or Making Decisions Difficulty Not on file 07/25/2024 Doing Errands Independently Difficulty Not on fi le 07/25/2024 Education Answer Date Recorded Help with school or training? Not on file Preferred Language Not on file 07/25/2024 PHQ-2 Answer Date Recorded Retired PHQ-9: Brief Depression Severity Measure Score 1 10/05/2023 Comments No Sex and Gender Information Value Date Recorded Sex Assigned at Not on file Legal Sex Female 10:43 AM EDT Gender Identity Not on file Sexual Orientation Not on file Last Filed Vital Signs Vital Sign Reading Time Taken Comments Blood Pressure 137/89 05/28/2024 3:22 PM EDT Pulse 100 05/28/2024 3:22 PM EDT Temperature 36.4 ??C (97.5 ??F) 01/10/2024 2:57 PM ED T Respiratory Rate 18 05/28/2024 3:22 PM EDT Oxygen Saturation 96% 05/28/2024 3:22 PM EDT Inhaled Oxygen Concentration - - Weight 92.1 kg (203 lb) 05/28/2024 3:22 PM EDT Height 157.5 cm (5' 2.01 ) 05/28/2024 3:22 PM ED T Body Mass Index 37.12 05/28/2024 3:22 PM EDT Plan of Treatment Upcoming Encounters Date Type Department Care Team (Late st Contact Info) Description 09/18/2024 3:30 PM EST Office Visit [facility] HEMATOLOGY & ONCOLOGY [address] [facility] [address] [place] [phone] Bre Crenshaw MD [address] [facility] [address] [place] [address] 12/31/2024 9:00 AM EDT Office Visit [facility] UROLOGY [address] [facility] [address] [place] [address] Oralia Saha APRN [address] [facility] [address] [place] [address] 05/12/2025 1:45 PM EDT Office Visit [facility] CARDIOLOGY [address] [facility] [address] [place] [phone] Obed Woodard MD [address] [facility] [address] [place], [place] [phone] Health Maintenance Due Date Last Done Comments BMI FOLLOWUP 1974 COLOGUARD 1974 COLON CANCER SCREENING 5 YEA R SIGMOIDOSCOPY 1974 COLONOSCOPY 1974 [address] CANCER SCREENING 1974 [address] COLONOGRAPHY 1974 FECAL OCCULT BLOOD TEST 1974 FIT Testing (1 year) 1974 Pneumococcal Vaccine 0-64 (1 of 2 - PCV) 01/18/1980 TDAP/TD VACCINES (1 - Tdap) 1993 ZOSTER VACCINE (1 of 2) 1993 ANNUAL PHYSICAL 11/22/2020 HEPATITIS C SCREENING 11/22/2020 COVID-19 Vaccine (2 - Jansse n risk series) 10/03/2021 09/05/2021 OT PLAN OF CARE 09/27/2022 06/29/2022 Annual Gynecologic Pelvic an d Breast Exam 01/14/2023 01/13/2022, 01/09/2022 INFLUENZA VACCINE 05/01/2024 MAMMOGRAM Discontinued 05/05/2022, 06/0 11/2021, 05/20/2020, Additional history exists Procedures Procedure Name Priority Date/Time Associated Diagnosis Comments POCT URINALYSIS DIPSTICK, AUTOMATED Routine 06/30/2024 10:33 AM EDT Nocturia more than twice per night Recurrent UTI SCANNED - LABS 06/30/2024 CBC AND DIFFERENTIAL Routine 05/28/2024 3:20 PM EDT Malignant neoplasm of lower-inner quadrant of left breast in female, estrogen receptor positive CBC WITH AUTO DIFFERENTIAL Routine 05/28/2024 3:20 PM EDT Malignant neoplasm of lower-inner quadrant of left breast in female, estrogen receptor positive COMPREHENSIVE METABOLIC PANEL Routine 05/28/2024 3:20 PM EDT Malignant neoplasm of lower-inner quadrant of left breast in female, estrogen receptor positive MAMMO DIAGNOSTIC DIGITAL TOMOSYNTHESIS BILATERAL W CAD Routine 05/05/2022 8:59 AM EDT Abnormal mammogram SCANNED - PAP SMEAR Routine 01/13/2022 from Last 3 Months or Most Recently Relevant to Health Maintenance Results * (ABNORMAL) POC Urinalysis Dipstick, Automated (06/30/2024 10:33 AM EDT) Color Yellow Yellow, Straw, Dark Yellow, Cici [facility] Clarity, UA Slightly Cloudy(A) Clear [facility] Specific [place] 1.010 1.005 - 1.030 [facility] pH, Urine 5.0 5.0 - 8.0 [facility] Leukocytes Small (1+)(A) Negative [facility] Nitrite, UA Negative Negative [facility] Protein, POC Negative Negative mg/dL [facility] Glucose, UA Negative Negative mg/dL [facility] Ketones, UA Negative Negative [facility] Urobilinogen, UA Normal Normal, 0.2 E.U./dL [facility] Bilirubin Negative Negative [facility] Blood, UA Negative Negative [facility] Lot Number [id number] [facility] Expiration Date 06/29/25 [facility] Urine 06/30/2024 10:3 3 AM EDT us Len Reese MD POINT OF CARE TEST ORDERAB LES Final Result [facility]
[address] [place] [address], * LABS SCANNED (06/30/2024) us Len Reese MD LAB BLOOD ORDERABLES Final Result * CBC Auto Differential (05/28/2024 3:20 PM EDT) WBC 5.55 3.40 - 10.80 10*3/mm3 05/28/2024 3:30 PM EDT [facility] RBC 4.31 3.77 - 5.28 10*6/mm3 05/28/2024 3:30 PM EDT [facility] Hemoglobin 13.7 12.0 - 15.9 g/dL 05/28/2024 3:30 PM EDT [facility] Hematocrit 39.4 34.0 - 46.6 % 05/28/2024 3:30 PM EDT [facility] MCV 91.4 79.0 - 97.0 fL 05/28/2024 3:30 PM EDT [facility] MCH 31.8 26.6 - 33.0 pg 05/28/2024 3:30 PM EDT [facility] MCHC 34.8 31.5 - 35.7 g/dL 05/28/2024 3:30 PM EDT [facility] RDW 12.9 12.3 - 15.4 % 05/28/2024 3:30 PM EDT [facility] RDW-SD 43.2 37.0 - 54.0 fl 05/28/2024 3:30 PM EDT [facility] MPV 10.4 6.0 - 12.0 fL 05/28/2024 3:30 PM EDT [facility] Platelets 216 140 - 450 10*3/mm3 05/28/2024 3:30 PM EDT [facility] Neutrophil % 45.4 42.7 - 76.0 % 05/28/2024 3:30 PM EDT [facility] Lymphocyte % 43.4 19.6 - 45.3 % 05/28/2024 3:30 PM EDT [facility] Monocyte % 7.0 5.0 - 12.0 % 05/28/2024 3:30 PM EDT [facility] Eosinophil % 3.8 0.3 - 6.2 % 05/28/2024 3:30 PM EDT [facility] Basophil % 0.4 0.0 - 1.5 % 05/28/2024 3:30 PM EDT [facility] Immature Grans % 0.0 0.0 - 0.5 % 05/28/2024 3:30 PM EDT [facility] Neutrophils, Absolute 2.52 1.70 - 7.00 10*3/mm3 05/28/2024 3:30 PM EDT [facility] Lymphocytes, Absolute 2.41 0.70 - 3.10 10*3/mm3 05/28/2024 3:30 PM EDT [facility] Monocytes, Absolute 0.39 0.10 - 0.90 10*3/mm3 05/28/2024 3:30 PM EDT [facility] Eosinophils, Absolute 0.21 0.00 - 0.40 10*3/mm3 05/28/2024 3:30 PM EDT [facility] Basophils, Absolute 0.02 0.00 - 0.20 10*3/mm3 05/28/2024 3:30 PM EDT [facility] Immature Grans, Absolute 0.00 0.00 - 0.05 10*3/mm3 05/28/2024 3:30 PM EDT [facility] Blood Venipuncture / Unknown 05/28/2024 3:20 PM EDT 05/28/2024 3:20 PM EDT us Bre Crenshaw MD LAB BLOOD ORDERABLES Final Resul t [facility]
[address] [place] [address], * (ABNORMAL) Comprehensive Metabolic Panel (05/28/2024 3:20 PM EDT) Glucose 177(H) 65 - 99 mg/dL 05/28/2024 4:39 PM EDT [facility] BUN 14 6 - 20 mg/dL 05/28/2024 4:39 PM EDT [facility] Creatinine 0.94 0.57 - 1.00 mg/dL 05/28/2024 4:39 PM EDT [facility] Sodium 139 136 - 145 mmol/L 05/28/2024 4:39 PM EDT [facility] Potassium 3.4(L) 3.5 - 5.2 mmol/L 05/28/2024 4:39 PM EDT [facility] Comment:Slight hemolysis det ected by analyzer. Result may be falsely elevated. Chloride 99 98 - 107 mmol/L 05/28/2024 4:39 PM EDT [facility] CO2 27.0 22.0 - 29.0 mmol/L 05/28/2024 4:39 PM T [facility] Calcium 9.5 8.6 - 10.5 mg/dL 05/28/2024 4:39 PM T [facility] Total Protein 7.4 6.0 - 8.5 g/dL 05/28/2024 4:39 PM [facility] Albumin 4.5 3.5 - 5.2 g/dL 05/28/2024 4:39 PM [facility] ALT (SGPT) 28 1 - 33 U/L 05/28/2024 4:39 PM [facility] AST (SGOT) 21 1 - 32 U/L 05/28/2024 4:39 PM [facility] Alkaline Phosphatase 87 39 - 117 U/L 05/28/2024 4:39 PM [facility] Total Bilirubin 0.3 0.0 - 1.2 mg/dL 05/28/2024 4:39 PM T [facility] Globulin 2.9 gm/dL 05/28/2024 4:39 PM [facility] Comment:Calculated Result A/G Ratio 1.6 g/dL 05/28/2024 4:39 PM T [facility] BUN/Creatinine Ratio 14.9 7.0 - 25.0 05/28/2024 4:39 PM [facility] Anion Gap 13.0 5.0 - 15.0 mmol/L 05/28/2024 4:39 PM [facility] eGFR 74.1 >60.0 mL/min/1.7 3 05/28/2024 4:39 PM [facility] Blood Venipuncture / Unknown 05/28/2024 3:20 PM EDT 05/28/2024 3:20 PM EDT Narrative [facility] - 05/28/2024 4:39 PM EDT GFR Normal >60 Chronic Kidney Disease <60 Kidney Failure <15 us Bre Crenshaw MD LAB BLOOD ORDERABLES Final Resul t [facility]
[address] [place] [address], * (ABNORMAL) Mammo Diagnostic Digital Tomosynthesis Bilateral With CAD (05/05/2022 8:59 AM EDT) Anatomical Region Laterality Modality Breast Bilateral Mammography 05/05/2022 11:5 1 AM EDT Impressions 05/05/2022 11:57 AM EDT BI-RADS 5 highly suggestive of malignancy left breast RECOMMENDATION: ?? 1. Ultrasound-guided core biopsy of the left breast mass at 4:00 as well as ultrasound-guided fine-needle aspiration of the larger suspicious lymph node in the left axilla. This will be performed today 2. Patient will need biopsy of a subtle area of architectural distortion in the lateral right breast. As discussed with the patient today if findings are confirmed to be malignant on the left that breast MRI would be recommended prior to addressing the area of distortion on the right breast. The standard false-negative rate of mammography is between 10% and 25%. Complex patterns or increased breast density will markedly elevate the false-negative rate of mammography. ?? A results letter, in lay terminology, will be given to the patient at the conclusion of the exam. Physician Order Ultrasound Guided Breast Biopsy Diagnosis: Abnormal Mammogram Physician Order Ultrasound Guided fine-needle aspiration Diagnosis: Abnormal Mammogram This report was finalized on 05/05/2022 11:[address] Lien Phan MD. Narrative 05/05/2022 11:57 AM EDT EXAMINATION:MAMMO DIAGNOSTIC DIGITAL TOMOSYNTHESIS BILATERAL W CAD-, US BREAST BILATERAL LIMITED- HISTORY: ??47-year-old female recalled from screening examination with Tomosynthesis for focal asymmetry left breast and for possible architectural distortion in the lateral right breast TECHNIQUE: Bilateral combination 2-D 3-D CC spot compression views combination 2-D 3-D left MLO spot compression view bilateral combination 2-D 3-D 90 degree lateral views, combination 2-D 3-D right CC lateral and rolled right CC medial view and targeted bilateral breast ultrasound COMPARISON: Prior mammograms dating back to 09/14/2016 FINDINGS:On the right a very subtle area of architectural distortion appears to persist on the 2-D 3-D right CC spot compression view and combination 2-D 3-D right CC rolled lateral view. The area was not visualized on the 2-D 3-D right 90 degree lateral view. On the left an asymmetry with associated architectural distortion persists at 4:00 in the left breast. Targeted right breast ultrasound did not define a clear sonographic correlate for the area of architectural distortion the lateral right breast. Targeted left breast ultrasound demonstrates an irregular mass measuring 2.1 cm with associated architectural distortion at 4:00 5 to 6 cm from the nipple accounting for the mass mammography and tomography. Ultrasound of the left axilla demonstrates at least 2 prominent axillary lymph nodes with nodular cortical thickening suspicious for metastatic disease the largest which measures 1.9 cm Madison Dolan MD IMG MAMMOGRAPHY ORDERABLES Fin al Result * PAP SMEAR SCANNED (01/13/2022) Haleigh Khanna MD CHART REVIEW TABS Final Resul t [facility]
[address] [place] [address], from Last 3 Months or Most Recently Relevant to Health Maintenance Additional Health Concerns Infection Onset Date Last Indicated MRSA 07/20/2023 07/20/2023 Insurance [facility] PPO Advance Directives * CPR (Attempt to Resuscitate) (Latest Code Status on File) Date Activated Date Inactivated Comments 07/20/2023 5:13 AM 07/22/2023 7:01 PM Question Answer Comments Code Status (Patient has no pulse and is not breathing): CPR (Attempt to Resuscitate) Medical Interventions (Patie nt has pulse or is breathing): Full Support * CPR (Attempt to Resuscitate) Date Activated Date Inactivated Comments 06/13/2022 12:10 PM 06/14/2022 12:37 PM Question Answer Comments Code Status (Patient has no pulse and is not breathing): CPR (Attempt to Resuscitate) Medical Interventions (Patie nt has pulse or is breathing): Full Support Release to patient: Routine Release Care Teams Herb Doctor Relationship Specialty Start Date End Date Herbert Hair MD [address] [facility] [address] [place] [address] PCP - General Adolescent Medicine 03/03/22
--- OUTSIDE RECORDS SUMMARY | 2024-08-17 15:47 | XMS_ITS | Encounter Summary ---
Author Organization [facility] Address [address] [place] [address] Care Team Providers Care Tool Smith Name Role Phone Herbert Hair MD Primary Care Provider + [phone] Reason for Visit * Reason Comments Med Refill Encounter Details Date Type Department Care Team (Late st Contact Info) Description 05/25/2024 Refill [facility] CARDIOLOGY [address] [facility] [address] [place] [address] Obed Woodard MD [address] [facility] [address] [place] [id number] Med Refill Social History Tobacco Use Types Packs/Day Years [...] or training? Not on file Preferred Language [place] 07/20/2023 PHQ-2 Answer Date Recorded Retired PHQ-9: [...] Description 09/18/2024 3:30 PM EST Office Visit [facility] HEMATOLOGY & ONCOLOGY [address] [facility] [address] [place] [phone] Bre Crenshaw MD [address] [facility] [address] [place] [address] 12/31/2024 9:00 AM EDT Office Visit [facility] UROLOGY [address] [facility] [address] [place] [address] Oralia Saha APRN [address] [facility] [address] [place] [address] 05/12/2025 1:45 PM EDT Office Visit [facility] CARDIOLOGY [address] [place] [phone] Obed Woodard MD [address] [place], [place] [id number] documented as of this encounter Visit Diagnoses Not on filedocumented in this encounter Additional Health Concerns Infection Onset Date Last Indicated Resolved Time MRSA 07/20/2023 07/20/2023 Assessment Noted Time PHQ-2 Depression Total Score: 1 10/05/19 24 8:56 AM EST documented as of this encounter Care Teams Tool Smith Relationship Specialty Start Date End Date Herbert Hair MD [address] [facility] [address] [place] [address] PCP - General Adolescent Medicine 03/03/22 documented as of this encounter
--- OUTSIDE RECORDS SUMMARY | 2024-08-17 15:47 | XMS_ITS | Encounter Summary ---
Author Organization [facility] Address [address] [place] [address] Care Team Providers Care Contact Worker Lithography Name Role Phone Herbert Hair MD Primary Care Provider [phone] Reason for Visit * Reason Comments Med Refill Encounter Details Date Type Department Care Team (Late st Contact Info) Description 05/18/2024 Refill [facility] HEMATOLOGY & ONCOLOGY [address] [facility] [address] [place] [phone] Hilda Jarvis, SALES REPRESENTATIVE AIRCRAFT 1700 [facility] [address] [place] [address] Malignant neoplasm of lower-inner quadrant of left [...] or training? Not on file Preferred Language Italian 07/20/2023 PHQ-2 Answer Date Recorded Retired PHQ-9: [...] Description 09/18/2024 3:30 PM EST Office Visit [facility] HEMATOLOGY & ONCOLOGY [address] [facility] [address] [address] [place] [phone] Bre Crenshaw MD [address] [facility] [address] [address] [place] [address] 12/31/2024 9:00 AM EDT Office Visit [facility] UROLOGY [address] [facility] [address] [address] [place] [phone] Oralia Saha APRN [address] [facility] [address] [place], [place] [address] 05/12/2025 1:45 PM EDT Office Visit [facility] CARDIOLOGY [address] [facility] [address] [place] [phone] Obed Woodard MD [address] [facility] [address] [place], [place] [phone] documented as of this encounter Visit Diagnoses Diagnosis Malignant neoplasm of lower-inner quadrant of left breast in female, estrogen receptor positive documented in this encounter Additional Health Concerns Infection Onset Date Last Indicated Resolved Time MRSA 07/20/2023 07/20/2023 Assessment Noted Time PHQ-2 Depression Total Score: 1 10/05/19 24 8:56 AM EST documented as of this encounter Care Teams Contact Worker Lithography Relationship Specialty Start Date End Date Herbert Hair MD 1210 [facility] [address] [place] [address] PCP - General Adolescent Medicine 03/03/22 documented as of this encounter
--- OUTSIDE RECORDS SUMMARY | 2024-08-17 15:48 | XMS_ITS | Encounter Summary ---
Author Organization [facility] Address [address] [place] [address] Care Team Providers Care Production Proofreader Name Role Phone Herbert Hair MD Primary Care Provider [phone] Encounter Details Date Type Department Care Team (Late st Contact Info) Description 01/10/2024 2:55 PM EDT Lab [facility] ONCOL[facility] [address] [place] [phone] Malignant neoplasm of lower-inner quadrant of left [...] or training? Not on file Preferred Language Azerbaijani 07/20/2023 PHQ-2 Answer Date Recorded Retired PHQ-9: [...] 3:30 PM EST Office Visit [facility] HEMATOLOGY & ONCOLOGY [address] [facility] [address] [place] [address] Bre Crenshaw MD [address] [facility] [address] [place] [address] 12/31/2024 9:00 AM EDT Office Visit [facility] UROLOGY [address] [facility] [address] [place] [address] Oralia Saha APRN [address]60 [facility] [address] [place] [address] 05/12/2025 1:45 PM EDT Office Visit [facility] CARDIOLOGY [address] [place] [phone] Obed Woodard MD [address] [place] [address] [place] [address] documented as of this encounter Procedures Procedure Name Priority Date/Time Associated Diagnosis Comments CBC WITH AUTO DIFFERENTIAL Routine 01/10/2024 2:55 PM EDT Malignant neoplasm of lower-inner quadrant of left breast in female, estrogen receptor positive CBC AND DIFFERENTIAL Routine 01/10/2024 2:55 PM EDT Malignant neoplasm of lower-inner quadrant of left breast in female, estrogen receptor positive COMPREHENSIVE METABOLIC PANEL Routine 01/10/2024 2:55 PM EDT Malignant neoplasm of lower-inner quadrant of left breast in female, estrogen receptor positive documented in this encounter Results * CBC Auto Differential (01/10/2024 2:55 PM EDT) WBC 5.32 3.40 - 10.80 10*3/mm3 01/10/2024 2:57 PM EDT [facility] RBC 3.92 3.77 - 5.28 10*6/mm3 01/10/2024 2:57 PM EDT [facility] Hemoglobin 12.0 12.0 - 15.9 g/dL 01/10/2024 2:57 PM EDT [facility] Hematocrit 35.5 34.0 - 46.6 % 01/10/2024 2:57 PM EDT [facility] MCV 90.6 79.0 - 97.0 fL 01/10/2024 2:57 PM EDT [facility] MCH 30.6 26.6 - 33.0 pg 01/10/2024 2:57 PM EDT [facility] MCHC 33.8 31.5 - 35.7 g/dL 01/10/2024 2:57 PM EDT [facility] RDW 13.1 12.3 - 15.4 % 01/10/2024 2:57 PM EDT [facility] RDW-SD 43.3 37.0 - 54.0 fl 01/10/2024 2:57 PM EDT [facility] MPV 9.8 6.0 - 12.0 fL 01/10/2024 2:57 PM EDT [facility] Platelets 290 140 - 450 10*3/mm3 01/10/2024 2:57 PM EDT [facility] Neutrophil % 50.7 42.7 - 76.0 % 01/10/2024 2:57 PM EDT [facility] Lymphocyte % 38.0 19.6 - 45.3 % 01/10/2024 2:57 PM EDT [facility] Monocyte % 7.1 5.0 - 12.0 % 01/10/2024 2:57 PM EDT [facility] Eosinophil % 3.8 0.3 - 6.2 % 01/10/2024 2:57 PM EDT [facility] Basophil % 0.4 0.0 - 1.5 % 01/10/2024 2:57 PM EDT [facility] Immature Grans % 0.0 0.0 - 0.5 % 01/10/2024 2:[facility] Neutrophils, Absolute 2.70 1.70 - 7.00 10*3/mm3 01/10/2024 2:57 PM EDT [facility] Lymphocytes, Absolute 2.02 0.70 - 3.10 10*3/mm3 01/10/2024 2:57 PM EDT [facility] Monocytes, Absolute 0.38 0.10 - 0.90 10*3/mm3 01/10/2024 2:57 PM EDT [facility] Eosinophils, Absolute 0.20 0.00 - 0.40 10*3/mm3 01/10/2024 2:57 PM EDT [facility] Basophils, Absolute 0.02 0.00 - 0.20 10*3/mm3 01/10/2024 2:57 PM EDT [facility] Immature Grans, Absolute 0.00 0.00 - 0.05 10*3/mm3 01/10/2024 2:57 PM EDT [facility] Blood Venipuncture / Unknown 01/10/2024 2:55 PM EDT 01/10/2024 2:55 PM EDT Bre Crenshaw MD LAB BLOOD ORDERABLES Final Resul t [facility]
[address] [place] [address], * (ABNORMAL) Comprehensive Metabolic Panel (01/10/2024 2:55 PM EDT) Glucose 149(H) 65 - 99 mg/dL 01/10/2024 4:03 PM EDT [facility] BUN 13 6 - 20 mg/dL 01/10/2024 4:03 PM EDT [facility] Creatinine 0.86 0.57 - 1.00 mg/dL 01/10/2024 4:03 PM EDT [facility] Sodium 143 136 - 145 mmol/L 01/10/2024 4:03 PM EDT [facility] Potassium 3.1(L) 3.5 - 5.2 mmol/L 01/10/2024 4:03 PM EDT [facility] Comment:Slight hemolysis det ected by analyzer. Result may be falsely elevated. Chloride 101 98 - 107 mmol/L 01/10/2024 4:03 PM EDT [facility] CO2 31.0(H) 22.0 - 29.0 mmol/L 01/10/2024 4:03 PM EDT [facility] Calcium 8.8 8.6 - 10.5 mg/dL 01/10/2024 4:03 PM EDT [facility] Total Protein 7.2 6.0 - 8.5 g/dL 01/10/2024 4:03 PM EDT [facility] Albumin 4.2 3.5 - 5.2 g/dL 01/10/2024 4:03 PM EDT [facility] ALT (SGPT) 17 1 - 33 U/L 01/10/2024 4:03 PM EDT [facility] AST (SGOT) 16 1 - 32 U/L 01/10/2024 4:03 PM EDT [facility] Alkaline Phosphatase 85 39 - 117 U/L 01/10/2024 4:03 PM EDT [facility] Total Bilirubin 0.2 0.0 - 1.2 mg/dL 01/10/2024 4:03 PM EDT [facility] Globulin 3.0 gm/dL 01/10/2024 4:03 PM EDT [facility] Comment:Calculated Result A/G Ratio 1.4 g/dL 01/10/2024 4:03 PM EDT [facility] BUN/Creatinine Ratio 15.1 7.0 - 25.0 01/10/2024 4:03 PM EDT [facility] Anion Gap 11.0 5.0 - 15.0 mmol/L 01/10/2024 4:03 PM EDT [facility] eGFR 82.9 >60.0 mL/min/1.7 3 01/10/2024 4:03 PM EDT [facility] Blood Venipuncture / Unknown 01/10/2024 2:55 PM EDT 01/10/2024 2:55 PM EDT Narrative [facility] - 01/10/2024 4:03 PM EDT GFR Normal >60 Chronic Kidney Disease <60 Kidney Failure <15 us Bre Crenshaw MD LAB BLOOD ORDERABLES Final Resul t [facility]
[address] [place] [address], documented in this encounter Visit Diagnoses Diagnosis Malignant neoplasm of lower-inner quadrant of left breast in female, estrogen receptor positive documented in this encounter Additional Health Concerns Infection Onset Date Last Indicated Resolved Time MRSA 07/20/2023 07/20/2023 Assessment Noted Time PHQ-2 Depression Total Score: 1 10/05/19 24 8:56 AM EST documented as of this encounter Care Teams Production Proofreader Relationship Specialty Start Date End Date Herbert Hair MD [address] [facility] [address] [place] [phone] PCP - General Adolescent Medicine 03/03/22 documented as of this encounter
--- OUTSIDE RECORDS SUMMARY | 2024-08-17 15:48 | XMS_ITS | Encounter Summary ---
Author Organization [facility] Address [address] [place] [address] Care Team Providers Care Medical Stenographer Name Role Phone Herbert Hair MD Primary Care Provider [phone] Encounter Details Date Type Department Care Team (Late st Contact Info) Description 02/29/2024 Telephone [facility] UROLOGY [address] [facility] [address] [place] [address] Letitia Ribera PA-C [address]39 [facility] [address] [place] [phone] Social History Tobacco Use Types Packs/Day Years [...] or training? Not on file Preferred Language Sammarinese 07/20/2023 PHQ-2 Answer Date Recorded Retired PHQ-9: Brief Depression Severity Measure Score 1 10/05/2023 Comments No Sex and Gender Information Value Date Recorded Sex Assigned at Not on file Legal Sex Female 10:43 AM EDT Gender Identity Not on file Sexual Orientation Not on file documented as of this encounter Miscellaneous Notes * Telephone Encounter - Letitia Ribera PA-C - 02/29/2024 11:37 AM EDT Spoke with the patient about her anticipated BMP results. She expects to have her labs drawn today at [facility]. We will contact them early next week to have results faxed back to us. documented in this encounter Plan of Treatment Upcoming Encounters Date Type Department Care Team (Late st Contact Info) Description 09/18/2024 3:30 PM EST Office Visit [facility] HEMATOLOGY & ONCOLOGY [address] [facility] [address] [address] [place] [phone] Bre Crenshaw MD [address] [facility] [address] [address] [place] [address] 12/31/2024 9:00 AM EDT Office Visit [facility] UROLOGY [address] [facility] [address] [address] [place] [address] Oralia Saha [employer]IE [employer] [address] [facility] [address] [place], [place] [phone] 05/12/2025 1:45 PM EDT Office Visit [facility] CARDIOLOGY [address] [facility] [address] [address] [place] [address] Obed Woodard MD [address] [facility] [address] [place] [address] documented as of this encounter Visit Diagnoses Not on filedocumented in this encounter Additional Health Concerns Infection Onset Date Last Indicated Resolved Time MRSA 07/20/2023 07/20/2023 Assessment Noted Time PHQ-2 Depression Total Score: 1 10/05/19 24 8:56 AM EST documented as of this encounter Care Teams Medical Stenographer Relationship Specialty Start Date End Date Herbert Hair MD 1210 [facility] [address] [place] [address] PCP - General Adolescent Medicine 03/03/22 documented as of this encounter
--- OUTSIDE RECORDS SUMMARY | 2024-08-17 15:48 | XMS_ITS | Encounter Summary ---
Author Organization [facility] Address [address] [place] [address] Care Team Providers Care Semi Conductor Assembler Name Role Phone Herbert Hair MD Primary Care Provider [phone] Encounter Details Date Type Department Care Team (Late st Contact Info) Description 08/01/2023 Readmission Management [facility] [address] [place] [phone] Carolann Melendez, RN Social History Tobacco Use Types Packs/Day Years Used Date Smoking Tobacco: Never Smokeless Tobacco: Never Alcohol Use Standard [...] or training? Not on file Preferred Language Puerto Rican 07/20/2023 PHQ-2 Answer Date Recorded Retired PHQ-9: Brief Depression Severity Measure Score 0 10/26/2022 Comments No Sex and Gender Information Value Date Recorded Sex Assigned at Not on file Legal Sex Female 10:43 AM EDT Gender Identity Not on file Sexual Orientation Not on file documented as of this encounter Miscellaneous Notes * Outreach Note - Carolann Melendez RN - 08/01/2023 1:58 PM EDT Medical Week [address] Survey Flow[address] [facility] patient discharged from? [place] Does the patient have one of the following disease processes/diagnoses(primary or secondary)? Other Week 2 attempt successful? Yes Call start time 1359 Discharge diagnosis Cellulitis, History of breast cancer, s/p BL mastectomy. S/p soft tissue biops Call end time 1401 Person spoke with today (if not patient) and relationship spouse Meds reviewed with patient/caregiver? Yes Does the patient have all medications ordered at discharge? Yes Prescription comments Pt no longer on IV abx, she has transitioned to oral for the next 2 weeks. Is the patient taking all medications as directed (includes completed medication regime)? Yes Comments regarding appointments Infectious Disease 07/30/23 12:30, Dr Rosa Guerrero, general surg fu on 07/23/23 Does the patient have a primary care provider? Yes Does the patient have an appointment with their PCP within 7 days of discharge? Yes Has the patient kept scheduled appointments due by today? Yes Psychosocial issues? No Did the patient receive a copy of their discharge instructions? Yes Nursing interventions Reviewed instructions with patient What is the patient's perception of their health status since discharge? Improving Is the patient/caregiver able to teach back the hierarchy of who to call/visit for symptoms/problems? PCP, Specialist, Home health nurse, Urgent Care, ED, 911 Yes If the patient is a current smoker, are they able to teach back resources for cessation? Not a smoker Week 2 Call Completed? Yes Graduated Yes Did the patient feel the follow up calls were helpful during their recovery period? Yes Is the patient interested in additional calls from an ambulatory family service caseworker? No Would this patient benefit from a Referral to [facility] Social Work? No Wrap up additional comments spouse reports patient is doing well. She is now on oral abx. and has returned to work. No needs reported. Call end time 1401 CAROLANN Hancock - Registered Nurse documented in this encounter Plan of Treatment Upcoming Encounters Date Type Department Care Team (Late st Contact Info) Description 09/18/2024 3:30 PM EST Office Visit [facility] HEMATOLOGY & ONCOLOGY [address]00 [facility] [address] [place] [phone] Bre Crenshaw MD [address]00 [facility] [address] [place] [address] 12/31/2024 9:00 AM EDT Office Visit [facility] UROLOGY [address] [facility] [address] [place] [address] Oralia Saha APRN 1760 [facility] [address] [place], [place] [phone] 05/12/2025 1:45 PM EDT Office Visit [facility] CARDIOLOGY [address] [facility] [address] [place] [phone] Obed Woodard MD [address] [place] [address] documented as of this encounter Visit Diagnoses Not on filedocumented in this encounter Additional Health Concerns Infection Onset Date Last Indicated Resolved Time MRSA 07/20/2023 07/20/2023 documented as of this encounter Care Teams Semi Conductor Assembler Relationship Specialty Start Date End Date Herbert Hair MD [address]10 [facility] [address] [place] [address] PCP - General Adolescent Medicine 03/03/22 documented as of this encounter
--- OUTSIDE RECORDS SUMMARY | 2024-08-17 15:48 | XMS_ITS | Encounter Summary ---
Author Organization [facility] Address [address] [place] [address] Care Team Providers Care Clinical Data Management Director Name Role Phone Herbert Hair MD Primary Care Provider [phone] Encounter Details Date Type Department Care Team (Late st Contact Info) Description 01/31/2024 4:05 PM EDT Lab [facility] [place] [address] [facility] [address] [place] [address] Nocturia more than twice per night Social History Tobacco Use Types Packs/Day Years [...] or training? Not on file Preferred Language South Sudanese 07/20/2023 PHQ-2 Answer Date Recorded Retired PHQ-9: [...] [facility] [address]00 [facility] [address] [place] [address] Bre Crenshaw MD [address]00 [facility] [address] [place] [address] 12/31/2024 9:00 AM EDT Office Visit [facility] UROLOGY [address]60 [facility] [address] [place] [address] Oralia Saha APRN [address] [facility] [address] [place], [place] [phone] 05/12/2025 1:45 PM EDT Office Visit [facility] CARDIOLOGY [address] [place] [phone] Obed Woodard MD [address] [place] [address] documented as of this encounter Procedures Procedure Name Priority Date/Time Associated Diagnosis Comments TSH Routine 01/31/2024 4:04 PM EDT Nocturia more than twice per night HEMOGLOBIN A1C Routine 01/31/2024 4:04 PM EDT Nocturia more than twice per night BASIC METABOLIC PANEL Routine 01/31/2024 4:04 PM EDT Nocturia more than twice per night documented in this encounter Results * (ABNORMAL) Basic Metabolic Panel (01/31/2024 4:04 PM EDT) Glucose 156(H) 65 - 99 mg/dL 02/01/2024 12:06 AM EDT [facility] BUN 14 6 - 20 mg/dL 02/01/2024 12:06 AM EDT [facility] Creatinine 0.82 0.57 - 1.00 mg/dL 02/01/2024 12:06 AM EDT [facility] Sodium 137 136 - 145 mmol/L 02/01/2024 12:06 AM EDT [facility] Potassium 3.9 3.5 - 5.2 mmol/L 02/01/2024 12:06 AM EDT [facility] Chloride 99 98 - 107 mmol/L 02/01/2024 12:06 AM EDT [facility] CO2 24.3 22.0 - 29.0 mmol/L 02/01/2024 12:06 AM EDT [facility] Calcium 9.7 8.6 - 10.5 mg/dL 02/01/2024 12:06 AM EDT [facility] BUN/Creatinine Ratio 17.1 7.0 - 25.0 02/01/2024 12:06 AM EDT [facility] Anion Gap 13.7 5.0 - 15.0 mmol/L 02/01/2024 12:06 AM EDT [facility] eGFR 87.3 >60.0 mL/min/1.7 3 02/01/2024 12:06 AM EDT [facility] Blood Venipuncture / Unknown 01/31/2024 4:04 PM EDT 01/31/2024 4:04 PM EDT [facility] - 02/01/2024 12:06 AM EDT GFR Normal >60 Chronic Kidney Disease <60 Kidney Failure <15 Letitia Ribera PA-C LAB BLOOD ORDERABLES Vanda l Result Performing Organization Address [facility] de Phone Number [facility]
[address] [phone] * (ABNORMAL) Hemoglobin A1c (01/31/2024 4:04 PM EDT) Hemoglobin A1C 6.20(H) 4.80 - 5.60 % 02/01/2024 12:05 AM EDT [facility] Blood Venipuncture / Unknown 01/31/2024 4:04 PM EDT 01/31/2024 4:04 PM EDT [facility] - 02/01/2024 12:05 AM EDT Hemoglobin A1C Ranges: Increased Risk for Diabetes ??5.7% to 6.4% Diabetes ? >= 6.5% Diabetic Goal ?< 7.0% Letitia Ribera PA-C LAB BLOOD ORDERABLES Vanda l Result Performing Organization Address [facility] Phone Number [facility]
[address] [place] [phone], * TSH (01/31/2024 4:04 PM EDT) TSH 2.570 0.270 - 4.200 uIU/mL 02/01/2024 12:10 AM EDT [facility] Blood Venipuncture / Unknown 01/31/2024 4:04 PM EDT 01/31/2024 4:04 PM EDT Letitia Ribera PA-C LAB BLOOD ORDERABLES Vanda bean Result [facility]
[address] [place] [address], documented in this encounter Visit Diagnoses Diagnosis Nocturia more than twice per night documented in this encounter Additional Health Concerns Infection Onset Date Last Indicated Resolved Time MRSA 07/20/2023 07/20/2023 Assessment Noted Time PHQ-2 Depression Total Score: 1 10/05/19 24 8:56 AM EST documented as of this encounter Care Teams Clinical Data Management Director Relationship Specialty Start Date End Date Herbert Hair MD [address] [place] [address] [address] [place] [address] PCP - General Adolescent Medicine 03/03/22 documented as of this encounter
--- OUTSIDE RECORDS SUMMARY | 2024-08-17 15:48 | XMS_ITS | Encounter Summary ---
Author Organization [facility] Address [address] [place] [address] Care Team Providers Care Director Of Teacher Education Name Role Phone Herbert Hair MD Primary Care Provider + [phone] Encounter Details Date Type Department Care Team (Late st Contact Info) Description 09/18/2023 10:15 AM EST Lab [facility] [address] [place] [address] Pelvic pain syndrome Social History Tobacco Use Types Packs/Day Years [...] or training? Not on file Preferred Language Marshallese 07/20/2023 PHQ-2 Answer Date Recorded Retired PHQ-9: [...] Description 09/18/2024 3:30 PM EST Office Visit [facility] HEMATOLOGY & ONCOLOGY [address] [facility] [address] [place] [address] Bre Crenshaw MD [address]00 [facility] [address] [place] [address] 12/31/2024 9:00 AM EDT Office Visit [facility] UROLOGY [address] [facility] [address] [place] [address] Oralia Saha APRN 1760 [facility] [address] [place] [id number] 05/12/2025 1:45 PM EDT Office Visit [facility] CARDIOLOGY [address] [facility] [address] [place] [address] Obed Woodard MD [address] [facility] [address] [place] [address] documented as of this encounter Procedures Procedure Name Priority Date/Time Associated Diagnosis Comments URINE CULTURE Routine 09/18/2023 10:10 AM EST Pelvic pain syndrome documented in this encounter Results * (ABNORMAL) Urine Culture - Urine, Urine, Clean Catch (09/18/2023 10:10 AM EST) Pathologist [facility] Urine Culture 50,000 CFU/mL Escherichia coli(A) KIT 09/20/2023 11:09 AM EST [facility] Urine Culture 50,000 CFU/mL Escherichia coli(A) KIT 09/20/2023 11:09 AM EST [facility] Comment:Strain #2 Urine Urine specimen obtained by clean catch procedure / Unknown Collection / Unknown 09/18/2023 10:10 AM EST 09/18/2023 10:10 AM EST [facility] - 09/20/2023 11:09 AM EST Colonization of the urinary tract without infection is common. Treatment is discouraged unless the patient is symptomatic, , or undergoing an invasive urologic procedure. Organism Antibiotic Method Susceptibility Escherichia coli Ampicillin KIT <=2 ug/ml: Susceptible Escherichia coli Ampicillin + Sulbactam KIT <=2 ug/ml: Susceptible Escherichia coli Cefazolin KIT <=4 ug/ml: Susceptible Escherichia coli Cefepime KIT <=1 ug/ml: Susceptible Escherichia coli Ceftazidime IKT <=1 ug/ml: Susceptible Escherichia coli Ceftriaxone KIT <=1 ug/ml: Susceptible Escherichia coli Gentamicin KIT <=1 ug/ml: Susceptible Escherichia coli Levofloxacin KIT <=0.12 ug/ml: Susceptible Escherichia coli Nitrofurantoin KIT <=16 ug/ml: Susceptible Escherichia coli Piperacillin + Tazobactam KIT <=4 ug/ml: Susceptible Escherichia coli Trimethoprim + Sulfamethoxazole KIT <=20 ug/ml: Susceptible Escherichia coli Ampicillin KIT >=32 ug/ml: Resistant Escherichia coli Ampicillin + Sulbactam KIT >=32 ug/ml: Resistant Escherichia coli Cefazolin KIT >=64 ug/ml: Resistant Escherichia coli Cefepime KIT <=1 ug/ml: Susceptible Escherichia coli Ceftazidime KIT 16 ug/ml: Resistant Escherichia coli Ceftriaxone KIT 16 ug/ml: Resistant Escherichia coli Gentamicin KIT <=1 ug/ml: Susceptible Escherichia coli Levofloxacin KIT <=0.12 ug/ml: Susceptible Escherichia coli Nitrofurantoin KIT <=16 ug/ml: Susceptible Escherichia coli Piperacillin + Tazobactam KIT <=4 ug/ml: Susceptible Escherichia coli Trimethoprim + Sulfamethoxazole KIT <=20 ug/ml: Susceptible Liz Tiwari DO MICROBIOLOGY - GENERAL ORDER NELI Final Result [facility]
[address] [place] [address], documented in this encounter Visit Diagnoses Diagnosis Pelvic pain syndrome Pelvic congestion syndrome documented in this encounter Additional Health Concerns Infection Onset Date Last Indicated Resolved Time MRSA 07/20/2023 07/20/2023 documented as of this encounter Care Teams Director Of Teacher Education Relationship Specialty Start Date End Date Herbert Hair MD [address] [place] [address] PCP - General Adolescent Medicine 03/03/22 documented as of this encounter
--- OUTSIDE RECORDS SUMMARY | 2024-08-17 15:48 | XMS_ITS | Encounter Summary ---
Author Organization [facility] Address [address] [place] [address] Care Team Providers Care Major Account Manager Name Role Phone Herbert Hair MD Primary Care Provider [phone] Reason for Visit * Reason Onset Date Comments INGRID MIJARES 08/22/2023 Encounter Details Date Type Department Care Team (Late st Contact Info) Description 08/22/2023 Telephone [facility] HEMATOLOGY & ONCOLOGY [address] [address] Bre Crenshaw MD [address] [place] [phone] INGRID MIJARES Social History Tobacco Use Types Packs/Day Years [...] or training? Not on file Preferred Language Somali 07/20/2023 PHQ-2 Answer Date Recorded Retired PHQ-9: Brief Depression Severity Measure Score 0 10/26/2022 Comments No Sex and Gender Information Value Date Recorded Sex Assigned at Not on file Legal Sex Female 10:43 AM EDT Gender Identity Not on file Sexual Orientation Not on file documented as of this encounter Miscellaneous Notes * Telephone Encounter - Yanet Preston RN - 08/22/2023 11:06 AM EST I called patient back after discussing with Bria Jarvis APRN and advised that the energy levels can be affected by the anastrozole. She has tried switching the times that she takes it and now istaking it in the evening as she thinks she has less leg pain with that time of administration. She has recently been on iv abx therapy for her chest wall cellulitus and that finished about a week ago. She has been through a lot in the last month to six weeks and she will wait another few weeks to see if her levels of activity improve. I told her that she does need to give herself some lewis as far as recovery from everything. She verbalized understanding. * Telephone Encounter - Roya Blank PCT - 08/22/2023 10:06 AM EST Patient is calling because her energy levels have not been good and she is wondering if it is related to a medication she has been taking. She states it has been worse since she got cellulitis last month. Please call her back to discuss [phone] documented in this encounter Plan of Treatment Upcoming Encounters Date Type Department Care Team (Late st Contact Info) Description 09/18/2024 3:30 PM EST Office Visit [facility] HEMATOLOGY & ONCOLOGY [address] [place] [phone] Bre Crenshaw MD [address] [address] 12/31/2024 9:00 AM EDT Office Visit [facility] UROLOGY 1760 [facility] [address] [place] [address] Oralia Saha APRN 1760 [facility] [address] [place] [address] 05/12/2025 1:45 PM EDT Office Visit [facility] CARDIOLOGY 1720 [facility] [address] [place] [phone] Obed Woodard MD 1720 [facility] [address] [facility] [address] [place], [place] [phone] documented as of this encounter Visit Diagnoses Not on filedocumented in this encounter Additional Health Concerns Infection Onset Date Last Indicated Resolved Time MRSA 07/20/2023 07/20/2023 documented as of this encounter Care Teams Major Account Manager Relationship Specialty Start Date End Date Herbert Hair MD [address] [place] [facility] [address] [place] [address] PCP - General Adolescent Medicine 03/03/22 documented as of this encounter
--- OUTSIDE RECORDS SUMMARY | 2024-08-17 15:48 | XMS_ITS | Encounter Summary ---
Author Organization [facility] Address [address] [place] [address] Care Team Providers Care Clerk Checker Name Role Phone Herbert Hair MD Primary Care Provider [phone] Encounter Details Date Type Department Care Team (Late st Contact Info) Description 01/10/2024 3:30 PM EDT Office Visit [facility] HEMATOLOGY & ONCOLOGY [address] [phone] Bre Crenshaw MD [address] [place] [phone] Malignant neoplasm of lower-inner quadrant of left [...] or training? Not on file Preferred Language Rwandan 07/20/2023 PHQ-2 Answer Date Recorded Retired PHQ-9: Brief Depression Severity Measure Score 1 10/05/2023 Comments No Sex and Gender Information Value Date Recorded Sex Assigned at Not on file Legal Sex Female 10:43 AM EDT Gender Identity Not on file Sexual Orientation Not on file documented as of this encounter Last Filed Vital Signs Vital Sign Reading Time Taken Comments Blood Pressure 135/86 01/10/2024 2:57 PM EDT Pulse 92 01/10/2024 2:57 PM EDT Temperature 36.4 ??C (97.5 ??F) 01/10/2024 2:57 PM ED T Respiratory Rate 18 01/10/2024 2:57 PM EDT Oxygen Saturation 98% 01/10/2024 2:57 PM EDT Inhaled Oxygen Concentration - - Weight 92.1 kg (203 lb) 01/10/2024 2:57 PM EDT Height 157.5 cm (5' 2.01 ) 01/10/2024 2:57 PM ED T Body Mass Index 37.12 01/10/2024 2:57 PM EDT documented in this encounter Progress Notes * Bre Crenshaw MD - 01/10/2024 3:30 PM EDT PROBLEM LIST: 1. [id number] ER+ (90%), GA+ (10%), Her2 negative (1+) invasive ductal carcinoma [...] ILLNESS: Leydi Brown returns for follow-up. She has been on anastrozole since 04/11/2023. She is having significant joint stiffness when she first wakes up and after sitting for prolonged periods. This gets better after a few minutes of moving. She has been taking ibuprofen 800 mg twice a day. She has been having trouble with frequent UTIs. She was prescribed a an estrogen cream but has beenconcerned about starting this. She was also prescribed Intrarosa insert for painful intercourse. Objective BP 135/86 Pulse 92 Temp 97.5 ??F (36.4 ??C) (Temporal) Resp 18 Ht 157.5 cm (62.01 ) Wt 92.1 kg (203 lb) LMP (LMP Unknown) SpO2 98% BMI 37.12 kg/m?? Vitals: 01/10/24 1457 PainSc: 0-No pain General: well appearing female [...] 01/10/2024 Lab Results Component Value Date GLUCOSE 98 10/05/2023 BUN 15 10/05/2023 CREATININE 0.87 10/05/2023 BCR 17.2 10/05/2023 K 4.0 10/05/2023 CO2 30.0 (H) 10/05/2023 CALCIUM 10.0 10/05/2023 ALBUMIN 4.4 10/05/2023 AST 14 10/05/2023 ALT 17 10/05/2023 ASSESSMENT AND PLAN: Leydi Brown is a 48 y.o. 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 Right chest nodule: She had a mammogram and ultrasound which was unremarkable. This area is clinically stable. Continue to monitor. She started tamoxifen 12/07/2022. Tamoxifen was changed to anastrozole due to intolerance on 04/11/2023. She is having some arthralgias. We discussed that arthalgias are a common side effect of aromatase inhibitor therapy. We reviewed different interventions that may help including regular exercise, NSAIDs, duloxetine, glucosamine/chondroitin supplement, or omega 3 fatty acid supplement. She has tried glucosamine without benefit. She is going to try omega-3 fatty acids. We discussed trying to avoid prolonged periods of immobility during the day. Anxiety/mood changes: Continue Zoloft. She is doing fairly well on this. Cardiac risk: followed by cardiology. Lymphedema left upper extremity: Continue compression sleeve. Bone density scan 05/14/2023 was normal. We will repeat bone density scan May 2025. Follow-up in 4 months. Bre Crenshaw MD [facility] Hematology and Oncology 01/10/2024 and continue CC: documented in this encounter Plan of Treatment Upcoming Encounters Date Type Department Care Team (Late st Contact Info) Description 09/18/2024 3:30 PM EST Office Visit [facility] HEMATOLOGY & ONCOLOGY [address] [facility] [address] [place] [address] Bre Crenshaw MD [address] [facility] [address] [place] [address] 12/31/2024 9:00 AM EDT Office Visit [facility] UROLOGY [address] [facility] [address] [place] [address] Annikashelley OraliaHILARYN [address]60 [facility] [address] [place], [place] [phone] 05/12/2025 1:45 PM EDT Office Visit [facility] CARDIOLOGY [address] [facility] [address] [place] [address] Obed Woodard MD [address] [facility] [address] [address] [place], [place] [phone] documented as of this encounter Results * (ABNORMAL) Comprehensive Metabolic Panel (05/28/2024 3:20 PM EDT) Glucose 177(H) 65 - 99 mg/dL 05/28/2024 4:39 PM EDT [facility] BUN 14 6 - 20 mg/dL 05/28/2024 4:39 PM EDT [facility] Creatinine 0.94 0.57 - 1.00 mg/dL 05/28/2024 4:39 PM EDT [facility] Sodium 139 136 - 145 mmol/L 05/28/2024 4:39 PM EDT [facility] Potassium 3.4(L) 3.5 - 5.2 mmol/L 05/28/2024 4:39 PM EDT [facility] Comment:Slight hemolysis det ected by analyzer. Result may be falsely elevated. Chloride 99 98 - 107 mmol/L 05/28/2024 4:39 PM EDT [facility] CO2 27.0 22.0 - 29.0 mmol/L 05/28/2024 4:39 PM EDT [facility] Calcium 9.5 8.6 - 10.5 mg/dL 05/28/2024 4:39 PM EDT [facility] Total Protein 7.4 6.0 - 8.5 g/dL 05/28/2024 4:39 PM EDT [facility] Albumin 4.5 3.5 - 5.2 g/dL 05/28/2024 4:39 PM EDT [facility] ALT (SGPT) 28 1 - 33 U/L 05/28/2024 4:39 PM EDT [facility] AST (SGOT) 21 1 - 32 U/L 05/28/2024 4:39 PM EDT [facility] Alkaline Phosphatase 87 39 - 117 U/L 05/28/2024 4:39 PM EDT [facility] Total Bilirubin 0.3 0.0 - 1.2 mg/dL 05/28/2024 4:39 PM EDT [facility] Globulin 2.9 gm/dL 05/28/2024 4:39 PM T [facility] Comment:Calculated Result A/G Ratio 1.6 g/dL 05/28/2024 4:39 PM T [facility] BUN/Creatinine Ratio 14.9 7.0 - 25.0 05/28/2024 4:39 PM T [facility] Anion Gap 13.0 5.0 - 15.0 mmol/L 05/28/2024 4:39 PM T [facility] eGFR 74.1 >60.0 mL/min/1.7 3 05/28/2024 4:39 PM T [facility] Blood Venipuncture / Unknown 05/28/2024 3:20 PM EDT 05/28/2024 3:20 PM EDT [facility] - 05/28/2024 4:39 PM EDT GFR Normal >60 Chronic Kidney Disease <60 Kidney Failure <15 us Bre Crenshaw MD LAB BLOOD ORDERABLES Final Resul t [facility]
[address] [place] [address], documented in this encounter Visit Diagnoses Diagnosis Malignant neoplasm of lower-inner quadrant of left breast in female, estrogen receptor positive- Primary documented in this encounter Additional Health Concerns Infection Onset Date Last Indicated Resolved Time MRSA 07/20/2023 07/20/2023 Assessment Noted Time PHQ-2 Depression Total Score: 1 10/05/19 24 8:56 AM EST documented as of this encounter Care Teams Clerk Checker Relationship Specialty Start Date End Date Herbert Hair MD [address] [place] [address] [address] [place] [address] PCP - General Adolescent Medicine 03/03/22 documented as of this encounter
--- OUTSIDE RECORDS SUMMARY | 2024-08-17 15:48 | XMS_ITS | Encounter Summary ---
Author Organization [facility] Address [address] [place] [address] Care Team Providers Care Oil Pipe Inspector Helper Name Role Phone Herbert Hair MD Primary Care Provider [phone] Reason for Visit * Reason Onset Date Comments INGRID-QUESTIONS 08/02/2023 Encounter Details Date Type Department Care Team (Late st Contact Info) Description 08/02/2023 Telephone [facility] HEMATOLOGY & ONCOLOGY [address] [address] Bre Crenshaw MD [address] [place] [phone] INGRID-QUESTIONS Social History Tobacco Use Types Packs/Day Years [...] or training? Not on file Preferred Language Gabonese 07/20/2023 PHQ-2 Answer Date Recorded Retired PHQ-9: Brief Depression Severity Measure Score 0 10/26/2022 Comments No Sex and Gender Information Value Date Recorded Sex Assigned at Not on file Legal Sex Female 10:43 AM EDT Gender Identity Not on file Sexual Orientation Not on file documented as of this encounter Miscellaneous Notes * Telephone Encounter - Janette Hartley RN - 08/02/2023 3:59 PM EDT Patient called back. She advised when she was in the hospital for her cellulitis ,they put her on aheart healthy diet due to her glucose being elevated. She said her PCP had told her in past her A1Cwas up a little. I asked if she was on steroids recently and she doesn't recall. I told her she maywant to f/u with her PCP to have her A1C rechecked sine been over a year since checked and continued elevated glucose. She also said since she was on iv antibiotics and now on oral since Sunday her urine has been bubbly. I advised I would recommend she check with ID, but may be related to the antibiotics and the fact that it has been a different color yellow. She also wanted to know from our standpoint if it is ok to use castor oil and can she try cbd gummies for the arthralgias she has been having while on Arimidex. I discussed these with Dr. Crenshaw and she is fine with the castor oil for her skin and she can try cbd gummies if she wants. She has been using tylenol/ibuprofen but has not tried omega/fish oil as well as we recommend this sometimes for the arthralgias. She is in agreement to do this. * Telephone Encounter - Janette Hartley RN - 08/02/2023 3:46 PM EDT Left message for patient that I was calling her back to discuss what questions she has. Advised if we don't hear back from her today we will f/u with her tomorrow. * Telephone Encounter - Floresita Donaldson - 08/02/2023 3:41 PM EDT Patient called she has a question about a lab result, also her urine is darker, and bubbly, and hasa question about a product she is using. Please call. documented in this encounter Plan of Treatment Upcoming Encounters Date Type Department Care Team (Late st Contact Info) Description 09/18/2024 3:30 PM EST Office Visit [facility] HEMATOLOGY & ONCOLOGY [address] [facility] [address] [place] [phone] Bre Crenshaw MD [address] [facility] [address] [place] [address] 12/31/2024 9:00 AM EDT Office Visit [facility] UROLOGY [address] [place] [address] Oralia Saha APRN [address]60 [facility] [address] [place], [place] [phone] 05/12/2025 1:45 PM EDT Office Visit [facility] CARDIOLOGY [address] [place] [phone] Obed Woodard MD [address] [facility] [address] [place] [address] documented as of this encounter Visit Diagnoses Not on filedocumented in this encounter Additional Health Concerns Infection Onset Date Last Indicated Resolved Time MRSA 07/20/2023 07/20/2023 documented as of this encounter Care Teams Oil Pipe Inspector Helper Relationship Specialty Start Date End Date Herbert Hair MD [address] [facility] [address] [place] [address] PCP - General Adolescent Medicine 03/03/22 documented as of this encounter
--- OUTSIDE RECORDS SUMMARY | 2024-08-17 15:48 | XMS_ITS | Encounter Summary ---
Author Organization [facility] Address [address] [place] [address] Care Team Providers Care Resident Advisor Name Role Phone Herbert Hair MD Primary Care Provider [phone] Reason for Referral * Diagnostic Imaging (Emergency) - Pending Review Specialty Diagnoses / Procedures Referred By Nasrin hernandez Referred To Contact Radiology Diagnoses Breast pain, right Procedures Mammo Diagnostic Digital Tomosynthesis Bilateral With CAD Hilda Jarvis APRN [address] [facility] [address] [place] [address] Phone: tel: fax: [address] [address] Phone: tel: Referral ID Status Reason Start Date Expiration Date V isits Requested Visits Authorized [id number] Pending Review 10/05/2023 10/04/2024 1 1 Encounter Details Date Type Department Care Team (Late st Contact Info) Description 10/05/2023 9:00 AM EST Office Visit [facility] HEMATOLOGY & ONCOLOGY [address] [facility] [address] [place] [phone] Hilda Jarvis, TRAVELING ACCOUNTANT [address] [facility] [address] [place] [address] Breast pain, right (Primary Dx) Social History Tobacco Use Types Packs/Day Years Used Date Smoking Tobacco: Never Smokeless Tobacco: Never Tobacco Cessation:Counseling Given: [...] or training? Not on file Preferred Language Latvian 07/20/2023 PHQ-2 Answer Date Recorded Retired PHQ-9: Brief Depression Severity Measure Score 1 10/05/2023 Comments No Sex and Gender Information Value Date Recorded Sex Assigned at Not on file Legal Sex Female 10:43 AM EDT Gender Identity Not on file Sexual Orientation Not on file documented as of this encounter Last Filed Vital Signs Vital Sign Reading Time Taken Comments Blood Pressure 134/91 10/05/2023 8:56 AM EST RUE Pulse 92 10/05/2023 8:56 AM EST Temperature 36.5 ??C (97.7 ??F) 10/05/2023 8:56 AM ES T Respiratory Rate 16 10/05/2023 8:56 AM EST Oxygen Saturation 98% 10/05/2023 8:56 AM EST RA Inhaled Oxygen Concentration - - Weight 92.1 kg (203 lb) 10/05/2023 8:56 AM EST Height 157.5 cm (5' 2 ) 10/05/2023 8:56 AM EST Body Mass Index 37.13 10/05/2023 8:56 AM EST documented in this encounter Progress Notes * Hilda Jarvis, TRAVELING ACCOUNTANT - 10/05/2023 9:00 AM EST PROBLEM LIST: 1. [id number] ER+ (90%), CA+ (10%), Her2 negative (1+) invasive ductal carcinoma [...] has been on anastrozole since 04/11/2023. She has noticed increased mood changes and irritability over the last few months. She is quite tearful. She also continues to have generalized arthralgias. On 10/03/2023 the occupational therapist noted a new breast nodule on the right breast. Patient reports pain in the right chest wall area where the occupational therapist noted the right breast nodule. Objective BP 134/91 Comment: RUE Pulse 92 Temp 97.7 ??F (36.5 ??C) (Infrared) Resp 16 Ht 157.5 cm (62 ) Wt 92.1 kg (203 lb) LMP (LMP Unknown) SpO2 98% Comment: RA BMI 37.13 kg/m?? Vitals: 10/05/23 0856 PainSc: 0-No pain ECOG score: 0 General: well appearing female in no acute distress Neuro: alert and oriented Lymphadenopathy: No cervical, supraclavicular or axillary lymphadenopathy noted Chest wall: Lymphedema noted right chest wall. Area is painful to palpation. Linear nodule noted at12:00 above mastectomy incision right chest wall. Extremeties: no lower extremity edema Skin: no lesions, bruising, or petechiae. Psych: mood and affect appropriate RECENT LABS: Lab Results Component Value Date WBC 7.42 10/05/2023 HGB 13.6 10/05/2023 HCT 40.9 10/05/2023 MCV 93.4 10/05/2023 PLT 241 10/05/2023 Lab Results Component Value Date GLUCOSE 162 (H) 07/29/2023 BUN 15 07/29/2023 CREATININE 0.81 07/29/2023 BCR 18.5 07/29/2023 K 3.7 07/29/2023 CO2 28.0 07/29/2023 CALCIUM 9.5 07/29/2023 ALBUMIN 4.0 07/29/2023 AST 13 07/29/2023 ALT 27 07/29/2023 ASSESSMENT AND PLAN: Leydi Brown is a 48 y.o. female with a T2 N1 M0 ER positive CA positive HER2 negative invasive carcinoma of the left breast. Right chest wall pain with new palpable nodule noted 10/03/2023. I will order a bilateral diagnostic mammogram for further evaluation. She started tamoxifen 12/07/2022. Tamoxifen was changed to anastrozole due to intolerance on 04/11/2023. She is tolerating the anastrozole relatively well, but is having some arthralgias. We will continue anastrozole. Anxiety/mood changes: Continue 30 mg of buspirone as needed. She is going to talk with her primary care provider about starting an antidepressant due to increased mood irritability. Cardiac risk: followed by cardiology. Lymphedema left upper extremity: Continue working with occupational therapy and wearing compressionsleeve. Bone density scan 05/14/2023 was normal. We will repeat bone density scan May 2025. Follow-up in 1 month. Hilda Jarvis APRN [facility] Hematology and Oncology 10/05/2023 and continue CC: documented in this encounter Plan of Treatment Upcoming Encounters Date Type Department Care Team (Late st Contact Info) Description 09/18/2024 3:30 PM EST Office Visit [facility] HEMATOLOGY & ONCOLOGY [address] [facility] [address] [place] [address] Bre Crenshaw MD [address] [facility] [address] [place] [address] 12/31/2024 9:00 AM EDT Office Visit [facility] UROLOGY [address] [facility] [address] [place] [address] Oralia Saha APRN [address]60 [facility] [address] [place] [address] 05/12/2025 1:45 PM EDT Office Visit [facility] CARDIOLOGY [address] [facility] [address] [place] [address] Obed Woodard MD [address] [facility] [address] [place], [place] [id number] Scheduled Orders Name Type Priority Associated Diagnoses Orde r Schedule Mammo Diagnostic Digital Tomosynthesis Bilateral With CAD Imaging STAT Breast pain, right Expected: 10/05/2023, Expires: 10/05/2024 documented as of this encounter Visit Diagnoses Diagnosis Breast pain, right- Primary documented in this encounter Additional Health Concerns Infection Onset Date Last Indicated Resolved Time MRSA 07/20/2023 07/20/2023 Assessment Noted Time PHQ-2 Depression Total Score: 1 10/05/19 24 8:56 AM EST documented as of this encounter Care Teams Resident Advisor Relationship Specialty Start Date End Date Herbert Hair MD [address] [facility] [address] [facility] [place] [address] PCP - General Adolescent Medicine 03/03/22 documented as of this encounter
--- OUTSIDE RECORDS SUMMARY | 2024-08-17 15:48 | XMS_ITS | Encounter Summary ---
Author Organization [facility] Address [address] [place] [address] Care Team Providers Care Bead Maker Name Role Phone Herbert Hair MD Primary Care Provider [phone] Reason for Visit * Reason Onset Date Comments LETITIA RIBERA-CLINICAL 02/22/2024 Encounter Details Date Type Department Care Team (Late st Contact Info) Description 02/22/2024 Telephone [facility] UROLOGY [address] [facility] [address] [place] [address] Letitia Ribera PA-C [address] [facility] [address] [place] [address] LETITIA RIBERA-CLINICAL Social History Tobacco Use Types Packs/Day Years [...] or training? Not on file Preferred Language Macanese 07/20/2023 PHQ-2 Answer Date Recorded Retired PHQ-9: Brief Depression Severity Measure Score 1 10/05/2023 Comments No Sex and Gender Information Value Date Recorded Sex Assigned at Not on file Legal Sex Female 10:43 AM EDT Gender Identity Not on file Sexual Orientation Not on file documented as of this encounter Miscellaneous Notes * Telephone Encounter - Alissa He RegSched Rep - 02/22/2024 9:41 AM EDT Provider: LETITIA RIBERA Caller: AUGUSTINE BROWN Relationship to Patient: SELF Pharmacy: [facility] [place] [address] Reason for Call: PT WAS PRESCRIBED DESMOPRESSIN - PRESCRIPTION SAYS TO TAKE 2 PILLS EVERY NIGHT HOWEVER QUANTITY IS ONLY 30PILLS. PT IS RUNNING OUT OF MEDS IN 2WEEKS. PT WOULD LIKE A CALL BACK TO CONFIRM IF SHE SHOULD CONTINUE TO TAKE MEDICATION PRESCRIBED AND IFDOSAGE (MG) IS CORRECT WELL. PT HAS NOT HAD FULL DOSAGE DISCUSSED AND PT WOULD LIKE TO CONFIRM IF ADDTL LABS SHOULD WAIT. PLEASE CALL TO CONFIRM. documented in this encounter Plan of Treatment Upcoming Encounters Date Type Department Care Team (Late st Contact Info) Description 09/18/2024 3:30 PM EST Office Visit [facility] HEMATOLOGY & ONCOLOGY [address] [facility] [address] [place] [address] Bre Crenshaw MD [address] [facility] [address] [place] [address] 12/31/2024 9:00 AM EDT Office Visit [facility] UROLOGY [address] [facility] [address] [place] [address] Oralia Saha APRN [address] [facility] [address] [place], [place] [id number] 05/12/2025 1:45 PM EDT Office Visit [facility] CARDIOLOGY [address] [facility] [address] [place] [phone] Obed Woodard MD [address] [facility] [address] [place] [address] documented as of this encounter Visit Diagnoses Not on filedocumented in this encounter Additional Health Concerns Infection Onset Date Last Indicated Resolved Time MRSA 07/20/2023 07/20/2023 Assessment Noted Time PHQ-2 Depression Total Score: 1 10/05/19 24 8:56 AM EST documented as of this encounter Care Teams Bead Maker Relationship Specialty Start Date End Date Herbert Hair MD [address] [facility] [address] [facility] [address] PCP - General Adolescent Medicine 03/03/22 documented as of this encounter
--- OUTSIDE RECORDS SUMMARY | 2024-08-17 15:48 | XMS_ITS | Encounter Summary ---
Author Organization [facility] Address [address] [place] [address] Care Team Providers Care Disc Recordist Name Role Phone Herbert Hair MD Primary Care Provider Encounter Details Date Type Department Care Team (Late st Contact Info) Description 10/04/2023 Telephone [facility] HEMATOLOGY & ONCOLOGY [address] [address] Bre Crenshaw MD [address] [address] Social History Tobacco Use Types Packs/Day [...] or training? Not on file Preferred Language Costa Rican 07/20/2023 PHQ-2 Answer Date Recorded Retired PHQ-9: Brief Depression Severity Measure Score 1 10/05/2023 Comments No Sex and Gender Information Value Date Recorded Sex Assigned at Not on file Legal Sex Female 10:43 AM EDT Gender Identity Not on file Sexual Orientation Not on file documented as of this encounter Miscellaneous Notes * Telephone Encounter - Yanet Preston RN - 10/04/2023 1:50 PM EST I called the patient back and she said that the lymphedema specialist at [facility] found a little spot on her right side and thought it was fat or scar tissue but wanted patient to reach out to her doctors. The patient has an appt Oct 15 but is calling to see if she should come in earlier. I talked with bria Jarvis APRN and she said that the patient can come earlier. I gave an appt for SundayOct 09 but then Bria stated she could actually see patient tomorrow at 9am. I called patient back to tell her about the new appt but it went to voicemail. I will send Twice message as well. documented in this encounter Plan of Treatment Upcoming Encounters Date Type Department Care Team (Late st Contact Info) Description 09/18/2024 3:30 PM EST Office Visit [facility] HEMATOLOGY & ONCOLOGY [address] [facility] [address] [place] [address] Bre Crenshaw MD [address] [facility] [address] [place] [address] 12/31/2024 9:00 AM EDT Office Visit [facility] UROLOGY [address] [facility] [address] [place] [address] Oralia Saha APRN [address]60 [facility] [address] [place] [address] 05/12/2025 1:45 PM EDT Office Visit [facility] CARDIOLOGY [address] [facility] [address] [place] [address] Obed Woodard MD [address]20 [facility] [address] [place] [address] documented as of this encounter Visit Diagnoses Not on filedocumented in this encounter Additional Health Concerns Infection Onset Date Last Indicated Resolved Time MRSA 07/20/2023 07/20/2023 documented as of this encounter Care Teams Disc Recordist Relationship Specialty Start Date End Date Herbert Hair MD [address] [facility] [address] [place] [address] PCP - General Adolescent Medicine 03/03/22 documented as of this encounter
--- OUTSIDE RECORDS SUMMARY | 2024-08-17 15:48 | XMS_ITS | Encounter Summary ---
Author Organization [facility] Address [address] [place] [address] Care Team Providers Care Purchasing Contracting Clerk Name Role Phone Herbert Hair MD Primary Care Provider + [phone] Encounter Details Date Type Department Care Team (Late st Contact Info) Description 07/30/2023 2:35 PM EDT Lab [facility] [address] [place] [phone] Cellulitis of chest wall; Abscess of chest wall; Chest wall abscess; Status post bilateral mastectomy Social History Tobacco Use Types Packs/Day Years [...] or training? Not on file Preferred Language Kosovan 07/20/2023 PHQ-2 Answer Date Recorded Retired PHQ-9: [...] Description 09/18/2024 3:30 PM EST Office Visit [facility] HEMATOLOGY & ONCOLOGY [address] [facility] [address] [place] [address] Bre Crenshaw MD [address] [facility] [address] [place] [address] 12/31/2024 9:00 AM EDT Office Visit [facility] UROLOGY [address] [facility] [address] [place] [address] Oralia Saha APRN [address]60 [facility] [address] [place] [phone] 05/12/2025 1:45 PM EDT Office Visit [facility] CARDIOLOGY [address] [place] [address] Obed Woodard MD [address] [place] [address] documented as of this encounter Procedures Procedure Name Priority Date/Time Associated Diagnosis Comments WOUND CULTURE STAT 07/30/2023 2:13 PM EDT Cellulitis of chest wall Abscess of chest wall Chest wall abscess Status post bilateral mastectomy documented in this encounter Results * Wound Culture - Wound, Chest (07/30/2023 2:13 PM EDT) Wound Culture No growth at 3 days KIT 08/02/2023 9:26 AM EDT [facility] Gram Stain Rare (1+) WBCs seen 08/02/2023 9:26 AM EDT [facility] Gram Stain No organisms seen 08/02/2023 9:26 AM EDT [facility] Wound Thoracic structure / Unknown Collection / Unknown 07/30/2023 2:13 PM EDT 07/30/2023 2:13 PM EDT Aman Walls MD MICROBIOLOGY - GENERAL CARIN SHAH Final Result [facility]
[address] [place] [address], [place] [phone] [facility]
[address] [place] [address], [place] [phone] documented in this encounter Visit Diagnoses Diagnosis Cellulitis of chest wall Cellulitis and abscess of trunk Abscess of chest wall Cellulitis and abscess of trunk Chest wall abscess Status post bilateral mastectomy Acquired absence of breast and nipple documented in this encounter Additional Health Concerns Infection Onset Date Last Indicated Resolved Time MRSA 07/20/2023 07/20/2023 documented as of this encounter Care Teams Purchasing Contracting Clerk Relationship Specialty Start Date End Date Herbert Hair MD [address] [facility] [address] [place] [address] PCP - General Adolescent Medicine 03/03/22 documented as of this encounter
--- OUTSIDE RECORDS SUMMARY | 2024-08-17 15:48 | XMS_ITS | Encounter Summary ---
Author Organization [facility] Address [address] [place] [address] Care Team Providers Care Occupational Health And Safety Adviser Name Role Phone Herbert Hair MD Primary Care Provider [phone] Reason for Visit * Reason Onset Date Comments DWAYNE PAL 09/26/2023 Encounter Details Date Type Department Care Team (Late st Contact Info) Description 09/26/[address] [facility] HEMATOLOGY & ONCOLOGY [address] [facility] [address] [place] [address] Hilda Martinez APRN [address] [facility] [address] [place] [id number] DWAYNE MARTINEZ - LABS Social History Tobacco Use Types Packs/Day Years [...] or training? Not on file Preferred Language Gambian 07/20/2023 PHQ-2 Answer Date Recorded Retired PHQ-9: Brief Depression Severity Measure Score 0 10/26/2022 Comments No Sex and Gender Information Value Date Recorded Sex Assigned at Not on file Legal Sex Female 10:43 AM EDT Gender Identity Not on file Sexual Orientation Not on file documented as of this encounter Miscellaneous Notes * Telephone Encounter - Yanet Preston RN - 09/27/2023 9:28 AM EST Patient called back this morning and said that her pcp had checked her labs and her b12 was high sothey are decreasing that. She said her calcium was high at 10.5 so she was concerned that she may need to stop the osteo biflex that Bria Martinez APRN had discussed with her. I asked Bria and that calcium level is fine and patient does not need to stop the osteo biflex. Patient asked if she needs labs for her Janes appt and I told her that we can get labs that morning and she could come a few minutes early to stop at our lab. She verbalized understanding. * Telephone Encounter - Yanet Preston RN - 09/27/2023 8:15 AM EST Called patient back but got her voicemail and left a message that we can check labs when she is here for the appt that day (Oct 15). Told her to call back to let us know about what lab/med she has questions about per Dr. Hair. * Telephone Encounter - Torri Schwarzt RegSched Rep - 09/26/2023 4:03 PM EST Caller: Leydi Borwn Relationship: Self Best call back number: [phone] What is the best time to reach you: ANYTIME Who are you requesting to speak with (clinical staff, provider, specific staff member): CLINICAL What was the call regarding: WANTING TO NO IF SHE NEEDS TO HAVE LABS DONE PRIOR TO HER APPT ON 10-15-2023, ALSO HAS SOME QUESTION PERTAINING TO ONE OF HER MEDICATIONS AND SOME LABS THAT WAS DONE BY PCP DR GUERRIER OFFICE documented in this encounter Plan of Treatment Upcoming Encounters Date Type Department Care Team (Late st Contact Info) Description 09/18/2024 3:30 PM EST Office Visit [facility] HEMATOLOGY & ONCOLOGY [address] [facility] [address] [place] [address] Bre Crenshaw MD [address] [facility] [address] [place] [address] 12/31/2024 9:00 AM EDT Office Visit [facility] UROLOGY [address] [facility] [address] [place] [address] Oralia Saha APRN [address]60 [facility] [address] [place] [id number] 05/12/2025 1:45 PM EDT Office Visit [facility] CARDIOLOGY [address] [facility] [address] [place] [address] Obed Woodard MD [address] [place] [address] documented as of this encounter Visit Diagnoses Not on filedocumented in this encounter Additional Health Concerns Infection Onset Date Last Indicated Resolved Time MRSA 07/20/2023 07/20/2023 documented as of this encounter Care Teams Occupational Health And Safety Adviser Relationship Specialty Start Date End Date Herbert Hair MD [address] [facility] [address] [place] [address] PCP - General Adolescent Medicine 03/03/22 documented as of this encounter
--- OUTSIDE RECORDS SUMMARY | 2024-08-17 15:48 | XMS_ITS | Encounter Summary ---
Author Organization [facility] Address [address] [place] [address] Care Team Providers Care Hospital Fellow Name Role Phone Herbert Hair MD Primary Care Provider [phone] Reason for Visit * Reason Comments Med Refill Encounter Details Date Type Department Care Team (Late st Contact Info) Description 02/25/2024 Refill [facility] HEMATOLOGY & ONCOLOGY [address]00 [facility] [address] [place] [phone] Hilda Jarvis, WASH HOUSE WORKER 1700 [facility] [address] [place] [address] Malignant neoplasm of lower-inner quadrant of left [...] or training? Not on file Preferred Language German 07/20/2023 PHQ-2 Answer Date Recorded Retired PHQ-9: [...] Description 09/18/2024 3:30 PM EST Office Visit [facility] HEMATOLOGY & ONCOLOGY [address] [facility] [address] [place] [phone] Bre Crenshaw MD [address] [facility] [address] [place] [address] 12/31/2024 9:00 AM EDT Office Visit [facility] UROLOGY [address] [facility] [address] [place] [phone] Oralia Saha APRN 1760 [facility] [address] [place], [place] [phone] 05/12/2025 1:45 PM EDT Office Visit [facility] CARDIOLOGY [address] [facility] [address] [place] [phone] Obed Woodard MD 1720 [facility] [address] [place], [place] [phone] documented as of this encounter Visit Diagnoses Diagnosis Malignant neoplasm of lower-inner quadrant of left breast in female, estrogen receptor positive documented in this encounter Additional Health Concerns Infection Onset Date Last Indicated Resolved Time MRSA 07/20/2023 07/20/2023 Assessment Noted Time PHQ-2 Depression Total Score: 1 10/05/19 24 8:56 AM EST documented as of this encounter Care Teams Hospital Fellow Relationship Specialty Start Date End Date Herbert Hair MD 1210 [facility] [address] [place] [address] PCP - General Adolescent Medicine 03/03/22 documented as of this encounter
--- OUTSIDE RECORDS SUMMARY | 2024-08-17 15:48 | XMS_ITS | Encounter Summary ---
Author Organization [facility] Address [address] [place] [address] Care Team Providers Care Hat Forming Machine Feeder Name Role Phone Herbert Hair MD Primary Care Provider + [phone] Reason for Referral * Consultation (Routine) - Closed Specialty Diagnoses / Procedures Referred By Nasrin hernandez Referred To Contact Neurology Diagnoses Nocturia more than twice per night Snoring Procedures AK OFFICE/OUTPATIENT NEW MODERATE MDM 45 MINUTES Letitia Ribera PA-C Phone: tel: fax: Sia Meza MD [facility] [place] [address] Phone: tel: fax: Referral ID Status Reason Start Date Expiration Date V isits Requested Visits Authorized [id number] Closed Specialty Services Required 12/28/2023 12/27/2024 1 1 Scheduling Instructions [facility] sleep clinic [facility] in [place], [place], [facility] Reason for Visit * Reason Comments Hx of recurrent UTI * Consultation (Routine) - Pending Review Specialty Diagnoses / Procedures Referred By Contgualberto t Referred To Contact Urology Diagnoses History of recurrent UTI (urinary tract infection) Oralia Treadwell, ELECTRONIC INTELLIGENCE OFFICER [address] [facility] [address] [place] [address] Phone: tel: fax: [facility] UROLOGY [address] [facility] [address] [place] [address] Phone: tel: fax: Referral ID Status Reason Start Date Expiration Date V isits Requested Visits Authorized [id number] Pending Review 12/05/2023 12/04/2024 1 1 Encounter Details Date Type Department Care Team (Late st Contact Info) Description 12/27/2023 1:00 PM EDT Office Visit [facility] UROLOGY [address] [facility] [address] [place] [phone] Letitia Ribera PA-C [address] [place] [address] Dyspareunia due to medical condition in female (Primary Dx); Recurrent UTI; Nocturia more than twice per night; Vaginal atrophy; Snoring Social History Tobacco Use Types Packs/Day Years [...] or training? Not on file Preferred Language Uzbek 07/20/2023 PHQ-2 Answer Date Recorded Retired PHQ-9: Brief Depression Severity Measure Score 1 10/05/2023 Comments No Sex and Gender Information Value Date Recorded Sex Assigned at Not on file Legal Sex Female 10:43 AM EDT Gender Identity Not on file Sexual Orientation Not on file documented as of this encounter Last Filed Vital Signs Vital Sign Reading Time Taken Comments Blood Pressure - - Pulse 83 12/27/2023 12:57 PM EDT Temperature - - Respiratory Rate - - Oxygen Saturation 95% 12/27/2023 12:57 PM EDT Inhaled Oxygen Concentration - - Weight 90.7 kg (200 lb) 12/27/2023 12:57 PM EDT Height 157.5 cm (5' 2 ) 12/27/2023 12:57 PM EDT Body Mass Index 36.58 12/27/2023 12:57 PM EDT documented in this encounter Progress Notes * Letitia Ribera PA-C - 12/27/2023 1:00 PM EDT Images from the original note were not included. Chief Complaint Frequent UTI Referring Provider: Oralia Treadwell* HPI Patient is a 48 y.o. female who presents as a referral for multiple UTIs. 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 Started Tamoxifen 12/07/2022. Tamoxifen stopped 02/22/2023. Changed to anastrozole 04/11/2023 d/t intolerance of tamoxifen. Per PCP referral, treated for E. coli UTI x 3 in 3 months. She reports approximately 3 infections in the last 6 months. UTI symptoms include suprapubic pain, sometimes dysuria Patient Denies current Sx: yes Symptoms resolve promptly with antibiotics: yes History of hospitalization for UTI? no Records of positive urine cultures? yes Relationship with infections and sexual activity? yes Ongoing problems with constipation? yes, managed with OTCs Urinary incontinence? yes Stress Incontinence; usually small volume or postvoid dribbling 0 Pads per day Vaginal Dryness? yes History of gross hematuria? no How many ounces of water per day? 80+ ounces per day Bladder & Bowel Symptom Questionnaire How often do you usually urinate during the day ? 2 - About every 2-3 hours 2. How many timed do you urinate at night? 2 - 3 times at night 3. What is the reason that you usually urinate? 1 - Mild urge (can delay over an hour) 4. Once you get the urge to go, how long can you comfortably delay? 1 - 30-60 min 5. How often do you get a sudden urge that makes you palomino to the bathroom? 2 - A few times a month 6. How often does a sudden urge to urinate result in you leaking urine or wetting pads? 4 - At least once a day 7. In your opinion, how good is your bladder control? 2 - Good 8. Do you have accidental bowel leakage? no 9. Do you have difficulty fully emptying your bladder? yes 10. Do you experience accidental leakage when performing some physical activity such as coughing, sneezing, laughing or exercise? yes 11. Have you tried medications to help improve your symptoms? no 12. Would you be interested in learning about a long-lasting option that may help you with your symptoms? yes Total Score 15 0-7 (Mild) 8-16 (Moderate) 17-28 (Severe) Past Medical History Past Medical History: Diagnosis Date Acid reflux Anxiety Drug therapy 07/2022 Fibroid Javed's disease Headache History of radiation therapy 11/29/2022 Left chest wall/regional LNs Hx of radiation therapy 11/2022 Hypertension Hypothyroidism Lymphedema left arm post mastectomy Malignant neoplasm of left breast in female, estrogen receptor positive 05/24/2022 Migraines PONV (postoperative nausea and vomiting) Urinary incontinence 05/2023? Frequent Urinary tract infection 08/2023 Infection for 3 months Wears contact lenses Wears glasses Wears glasses Past Surgical History Past Surgical History: Procedure Laterality Date BREAST BIOPSY Left 11/2016 lt stereo bx BREAST BIOPSY Left 05/05/2022 fna BREAST BIOPSY Left 07/05/2023 fna BREAST LUMPECTOMY Left 07/13/2023 Benign CARPAL TUNNEL RELEASE Right SECTION x 2 COLONOSCOPY 04/20/2017 hemorrhoids D & C HYSTEROSCOPY ENDOMETRIAL ABLATION 10/21/2013 ENDOSCOPY 03/2016 Normal LAPAROSCOPIC CHOLECYSTECTOMY MASTECTOMY Bilateral 06/2022 MASTECTOMY WITH SENTINEL NODE BIOPSY AND AXILLARY NODE DISSECTION N/A 06/13/2022 Procedure: BREAST MASTECTOMY LEFT, AXILLARY NODE DISSECTION LEFT, PROPHYLATIC RIGHT MASTECTOMY; Surgeon: An Bell MD; Location: [facility]; Service: General; Laterality: N/A; TONSILLECTOMY TOTAL LAPAROSCOPIC HYSTERECTOMY N/A 03/15/2023 Procedure: TOTAL LAPAROSCOPIC HYSTERECTOMY BILATERAL SALPINGOOPHORECTOMY WITH DAVINCI ROBOT; Surgeon: Erika Awad MD; Location: [facility]; Service: Robotics - DaVinci; Laterality: N/A; VENOUS ACCESS DEVICE (PORT) INSERTION Right 07/07/2022 VENOUS ACCESS DEVICE (PORT) REMOVAL Medications Current Outpatient Medications: anastrozole (ARIMIDEX) 1 MG tablet, Take 1 tablet by mouth Daily., Disp: 30 tablet, Rfl: 11 aspirin 81 MG EC tablet, Take 1 tablet by mouth Daily., Disp: , Rfl: Biotin 5 MG capsule, Take 1 capsule by mouth Daily., Disp: , Rfl: esomeprazole (nexIUM) 20 MG [...] capsule by mouth Daily., Disp: , Rfl: [facility] Natural Products (OSTEO BI-FLEX ADV JOINT SHIELD PO), Take 1 tablet by mouth Daily., Disp: , Rfl: ondansetron ODT (ZOFRAN-ODT) 8 MG disintegrating tablet, DISSOLVE 1 TABLET IN MOUTH EVERY 8 HOURS NEEDED FOR NAUSEA FOR VOMITING, Disp: 30 tablet, Rfl: 2 MV-Min-Fe Fum-FA-DHA ( Multivitamin Plus DHA) 27-0.8-250 [...] by mouth Every Evening., Disp: , Rfl: desmopressin (DDAVP) 0.2 MG tablet, Take 1 tablet by mouth Every Night., Disp: 30 tablet, Rfl: 1 estradiol (ESTRACE) 0.1 MG/GM vaginal cream, Apply a blueberry sized amount to the urethra daily, Disp: 42.5 g, Rfl: 11 methenamine (HIPREX) 1 g tablet, Take 1 tablet by mouth 2 (Two) Times a Day With Meals., Disp: 60 tablet, Rfl: 11 Prasterone (Intrarosa) 6.5 MG insert, Insert 1 Insert into the vagina Every Night., Disp: 28 each, Rfl: 11 Allergies Allergies Allergen Reactions Chlorhexidine Gluconate Rash Social History Social History Socioeconomic History Marital status: Tobacco Use Smoking status: Never Passive exposure: Never Smokeless tobacco: Never Vaping Use Vaping status: Never Used Substance and Sexual Activity Alcohol use: Never Drug use: Never Sexual activity: Yes Partners: Male control/protection: Hysterectomy Family History Family History Problem Relation Age of Onset Diabetes Mother Hypertension Mother Diabetes Father Hypertension Father Diabetes Maternal Grandmother Heart disease Maternal Grandfather Breast cancer Neg Hx Ovarian cancer Neg Hx Endometrial cancer Neg Hx Uterine cancer Neg Hx Colon cancer Neg Hx Physical Exam Visit Vitals Pulse 83 Ht 157.5 cm (62 ) Wt 90.7 kg (200 lb) LMP (LMP Unknown) SpO2 95% BMI 36.58 kg/m?? Labs Urine Culture 09/18/2023 10:10 Urine Culture Urine Culture 50,000 CFU/mL Escherichia coli 50,000 CFU/mL Escherichia coli Brief Urine Lab Results (Last result in the past 365 days) Color Clarity Blood Leuk Est Nitrite Protein CREAT Urine HCG 03/15/23 1149 Negative Assessment Ms. Brown is a 48 y.o. female who presented today with concern for Ang. Nocturia of 3x per night, large volume with each void. This is despite restricting fluids in PM hours, particularly after dinner. She admits she snores, does not feel rested upon waking, and has concern for BRYAN. She is open to sleep study and I will refer to [facility] for cliff luation. We discussed that with treatment of BRYAN, if detected, her nocturia would likely resolve. In the meantime, we will start low dose DDAVP. Her renal function is normal and her most recent sodium is 139. We discussed the importance of limiting fluid after taking this medication approximately 1hour before bedtime. We discussed the risk of hyponatremia. Will reassess a BMP at [address] Crenshaw on preferences regarding the safety of periurethral Estrace given this patient's breast cancer history. Additionally recommend Intrarosa for dyspareunia and dryness and will discuss as well with Dr. Crenshaw. Will start Hip-Jean-Paul for UTI prevention in the meantime. This patient has previously been managing her symptoms with: antibiotics. Previous urine cultures significant for: E Coli RF for Ang: Vaginal atrophy Medical Treatment Vaginal Estrogen Therapy - After menopause a decline in estrogen can affect the urethra and bladdertissues. pH imbalances can result in the loss of normal bacteria in the vagina and around the urethra, increasing risk of infections and urinary symptoms. Christianity of normal blood flow with estrogen treatment and correction of pH imbalances may help to relieve bladder overactivity symptoms. DISCUSSION SUMMARY Diagnoses and all orders for this visit: 1. Dyspareunia due to medical condition in female (Primary) - Prasterone (Intrarosa) 6.5 MG insert; Insert 1 Insert into the vagina Every Night. Dispense: 28 each; Refill: 11 2. Recurrent UTI - methenamine (HIPREX) 1 g tablet; Take 1 tablet by mouth 2 (Two) Times a Day With Meals. Dispense:60 tablet; Refill: 11 - estradiol (ESTRACE) 0.1 MG/GM vaginal cream; Apply a blueberry sized amount to the urethra daily Dispense: 42.5 g; Refill: 11 3. Nocturia more than twice per night - desmopressin (DDAVP) 0.2 MG tablet; Take 1 tablet by mouth Every Night. Dispense: 30 tablet; Refill: 1 4. Vaginal atrophy - estradiol (ESTRACE) 0.1 MG/GM vaginal cream; Apply a blueberry sized amount to the urethra daily Dispense: 42.5 g; Refill: 11 Follow Up: Return in about 4 weeks (around 01/24/2024) for Meds/Symptom Reassessment. After this patient's appointment, send a direct message through [employer] to Dr. Crenshaw who approves of periurethral Estrace and Intrarosa in this patient.. Letitia Ribera PA-C [facility] Urology documented in this encounter Plan of Treatment Upcoming Encounters Date Type Department Care Team (Late st Contact Info) Description 09/18/2024 3:30 PM EST Office Visit [facility] HEMATOLOGY & ONCOLOGY [address] [facility] [address] [place] [phone] Bre Crenshaw MD [address] [facility] [address] [place] [address] 12/31/2024 9:00 AM EDT Office Visit [facility] UROLOGY [address] [facility] [address] [place] [address] Oralia Saha APRN [address] [facility] [address] [place] [address] 05/12/2025 1:45 PM EDT Office Visit [facility] CARDIOLOGY [address] [facility] [address] [place] [address] Obed Woodard MD [address] [place] [address] documented as of this encounter Procedures Procedure Name Priority Date/Time Associated Diagnosis Comments SCANNED - LABS 12/27/2023 documented in this encounter Results * LABS SCANNED (12/27/2023) us Letitia Ribera PA-C LAB BLOOD ORDERABLES Vanda l Result documented in this encounter Visit Diagnoses Diagnosis Dyspareunia due to medical condition in female- Primary Recurrent UTI Urinary tract infection, site not specified Nocturia more than twice per night Vaginal atrophy Postmenopausal atrophic vaginitis Snoring Other dyspnea and respiratory abnormality documented in this encounter Additional Health Concerns Infection Onset Date Last Indicated Resolved Time MRSA 07/20/2023 07/20/2023 Assessment Noted Time PHQ-2 Depression Total Score: 1 10/05/19 24 8:56 AM EST documented as of this encounter Care Teams Hat Forming Machine Feeder Relationship Specialty Start Date End Date Herbert Hair MD [address] [facility] [address] [place] [address] PCP - General Adolescent Medicine 03/03/22 documented as of this encounter
--- OUTSIDE RECORDS SUMMARY | 2024-08-17 15:48 | XMS_ITS | Encounter Summary ---
Author Organization [facility] Address [address] [place] [address] Care Team Providers Care Seed Cone Picker Name Role Phone Herbert Hair MD Primary Care Provider + [phone] Reason for Visit * Reason Onset Date Comments LETITIA RIBERA - PRESCRIPTION CLARIFICATION N EEDED 12/28/2023 Encounter Details Date Type Department Care Team (Late st Contact Info) Description 12/28/2023 Telephone [facility] UR[facility] [address] [facility] [address] [place] [address] Letitia Ribera PA-C [address] [facility] [address] [place] [address] LETITIA RIBERA - PRESCRIPTION CLARIFICATION NEEDED Social History Tobacco Use Types Packs/Day Years [...] or training? Not on file Preferred Language Norwegian 07/20/2023 PHQ-2 Answer Date Recorded Retired PHQ-9: Brief Depression Severity Measure Score 1 10/05/2023 Comments No Sex and Gender Information Value Date Recorded Sex Assigned at Not on file Legal Sex Female 10:43 AM EDT Gender Identity Not on file Sexual Orientation Not on file documented as of this encounter Miscellaneous Notes * Telephone Encounter - Letitia Ribera PA-C - 12/28/2023 1:51 PM EDT reordered * Telephone Encounter - Dot Paredes RegSched Rep - 12/28/2023 12:36 PM EDT Caller: ERIKA Relationship: [facility] Best call back number: [phone] Which medication are you concerned about: estradiol (ESTRACE) 0.1 MG/GM vaginal cream Who prescribed you this medication: LETITIA RIBERA When did you start taking this medication: N/A What are your concerns: DIRECTIONS STATE- Apply a blueberry sized amount to the urethra daily PHARMACY HAS TO HAVE A UNIT OF MEASURE TO BILL INSURANCE. IS A BLUEBERRY SIZED AMOUNT EQUIVALENT TO1/2 GM, 1 GM? PLEASE ADVISE. How long have you had these concerns: TODAY documented in this encounter Plan of Treatment Upcoming Encounters Date Type Department Care Team (Late st Contact Info) Description 09/18/2024 3:30 PM EST Office Visit [facility] HEMATOLOGY & ONCOLOGY [address] [facility] [address] [place] [phone] Bre Crenshaw MD [address] [facility] [address] [place] [address] 12/31/2024 9:00 AM EDT Office Visit [facility] UROLOGY [address] [facility] [address] [place] [address] Oralia Saha APRN [address] [facility] [address] [place] [address] 05/12/2025 1:45 PM EDT Office Visit [facility] CARDIOLOGY [address] [facility] [address] [place] [phone] Obed Woodard MD [address] [facility] [address] [place] [address] documented as of this encounter Visit Diagnoses Not on filedocumented in this encounter Additional Health Concerns Infection Onset Date Last Indicated Resolved Time MRSA 07/20/2023 07/20/2023 Assessment Noted Time PHQ-2 Depression Total Score: 1 10/05/19 24 8:56 AM EST documented as of this encounter Care Teams Seed Cone Picker Relationship Specialty Start Date End Date Herbert Hair MD [address] [facility] [address] [place] [address] PCP - General Adolescent Medicine 03/03/22 documented as of this encounter
--- OUTSIDE RECORDS SUMMARY | 2024-08-17 15:48 | XMS_ITS | Encounter Summary ---
Author Organization [facility] Address [address] [place] [address] Care Team Providers Care Aircraft Maintenance Manager Name Role Phone Herbert Hair MD Primary Care Provider + [phone] Encounter Details Date Type Department Care Team (Late st Contact Info) Description 12/28/2023 Patient rounding ([facility] only) [facility] UR[facility]Y [address] [place] [address] Denia Lau RegSched Rep Social History Tobacco Use Types Packs/Day Years [...] or training? Not on file Preferred Language Hungarian 07/20/2023 PHQ-2 Answer Date Recorded Retired PHQ-9: Brief Depression Severity Measure Score 1 10/05/2023 Comments No Sex and Gender Information Value Date Recorded Sex Assigned at Not on file Legal Sex Female 10:43 AM EDT Gender Identity Not on file Sexual Orientation Not on file documented as of this encounter Progress Notes * Denia Lau RegSched Rep - 12/28/2023 8:32 AM EDT A [employer] message has been sent to the patient for PATIENT ROUNDING with [facility]. documented in this encounter Plan of Treatment Upcoming Encounters Date Type Department Care Team (Late st Contact Info) Description 09/18/2024 3:30 PM EST Office Visit [facility] HEMATOLOGY & ONCOLOGY [address] [facility] [address] [place] [phone] Bre Crenshaw MD [address] [facility] [address] [place] [address] 12/31/2024 9:00 AM EDT Office Visit [facility] UROLOGY [address] [facility] [address] [place] [phone] Oralia Saha APRN [address] [facility] [address] [place] [phone] 05/12/2025 1:45 PM EDT Office Visit [facility] CARDIOLOGY [address] [facility] [address] [place] [address] Obed Woodard MD [address] [place] [address] documented as of this encounter Visit Diagnoses Not on filedocumented in this encounter Additional Health Concerns Infection Onset Date Last Indicated Resolved Time MRSA 07/20/2023 07/20/2023 Assessment Noted Time PHQ-2 Depression Total Score: 1 10/05/19 24 8:56 AM EST documented as of this encounter Care Teams Aircraft Maintenance Manager Relationship Specialty Start Date End Date Herbert Hair MD [address] [facility] [address] [place] [address] PCP - General Adolescent Medicine 03/03/22 documented as of this encounter
--- OUTSIDE RECORDS SUMMARY | 2024-08-17 15:48 | XMS_ITS | Encounter Summary ---
Author Organization [facility] Address [address] [place] [address] Care Team Providers Care Handyman Name Role Phone Herbert Hair MD Primary Care Provider + [phone] Encounter Details Date Type Department Care Team (Late st Contact Info) Description 10/05/2023 8:45 AM EST Lab [facility] ONCOL[facility]Y LAB [address] [place] [phone] Malignant neoplasm of lower-inner quadrant of left [...] or training? Not on file Preferred Language Haitian 07/20/2023 PHQ-2 Answer Date Recorded Retired PHQ-9: [...] Description 09/18/2024 3:30 PM EST Office Visit [facility] HEMATOLOGY & ONCOLOGY [address] [facility] [address] [place] [address] Bre Crenshaw MD [address] [facility] [address] [place] [address] 12/31/2024 9:00 AM EDT Office Visit [facility] UROLOGY [address] [facility] [address] [place] [address] Oralia Saha APRN [address] [facility] [address] [place] [address] 05/12/2025 1:45 PM EDT Office Visit [facility] CARDIOLOGY [address] [place] [address] Obed Woodard MD [address] [place] [address] documented as of this encounter Procedures Procedure Name Priority Date/Time Associated Diagnosis Comments CBC WITH AUTO DIFFERENTIAL Routine 10/05/2023 8:47 AM EST Malignant neoplasm of lower-inner quadrant of left breast in female, estrogen receptor positive CBC AND DIFFERENTIAL Routine 10/05/2023 8:47 AM EST Malignant neoplasm of lower-inner quadrant of left breast in female, estrogen receptor positive COMPREHENSIVE METABOLIC PANEL Routine 10/05/2023 8:47 AM EST Malignant neoplasm of lower-inner quadrant of left breast in female, estrogen receptor positive documented in this encounter Results * CBC Auto Differential (10/05/2023 8:47 AM EST) WBC 7.42 3.40 - 10.80 10*3/mm3 10/05/2023 8:51 AM EST [facility] RBC 4.38 3.77 - 5.28 10*6/mm3 10/05/2023 8:51 AM EST [facility] Hemoglobin 13.6 12.0 - 15.9 g/dL 10/05/2023 8:51 AM EST [facility] Hematocrit 40.9 34.0 - 46.6 % 10/05/2023 8:51 AM EST [facility] MCV 93.4 79.0 - 97.0 fL 10/05/2023 8:51 AM EST [facility] MCH 31.1 26.6 - 33.0 pg 10/05/2023 8:51 AM EST [facility] MCHC 33.3 31.5 - 35.7 g/dL 10/05/2023 8:51 AM EST [facility] RDW 12.7 12.3 - 15.4 % 10/05/2023 8:51 AM [facility] RDW-SD 43.8 37.0 - 54.0 fl 10/05/2023 8:51 AM [facility] MPV 9.8 6.0 - 12.0 fL 10/05/2023 8:51 AM [facility] Platelets 241 140 - 450 10*3/mm3 10/05/2023 8:51 AM [facility] Neutrophil % 63.4 42.7 - 76.0 % 10/05/2023 8:51 AM [facility] Lymphocyte % 26.5 19.6 - 45.3 % 10/05/2023 8:51 AM [facility] Monocyte % 7.3 5.0 - 12.0 % 10/05/2023 8:51 AM [facility] Eosinophil % 2.4 0.3 - 6.2 % 10/05/2023 8:51 AM [facility] Basophil % 0.3 0.0 - 1.5 % 10/05/2023 8:51 AM [facility] Immature Grans % 0.1 0.0 - 0.5 % 10/05/2023 8:51 AM [facility] Neutrophils, Absolute 4.70 1.70 - 7.00 10*3/mm3 10/05/2023 8:51 AM [facility] Lymphocytes, Absolute 1.97 0.70 - 3.10 10*3/mm3 10/05/2023 8:51 AM [facility] Monocytes, Absolute 0.54 0.10 - 0.90 10*3/mm3 10/05/2023 8:51 AM [facility] Eosinophils, Absolute 0.18 0.00 - 0.40 10*3/mm3 10/05/2023 8:51 AM [facility] Basophils, Absolute 0.02 0.00 - 0.20 10*3/mm3 10/05/2023 8:51 AM [facility] Immature Grans, Absolute 0.01 0.00 - 0.05 10*3/mm3 10/05/2023 8:51 AM [facility] Blood Venipuncture / Unknown 10/05/2023 8:47 AM EST 10/05/2023 8:47 AM EST Hilda Christianson Matheus LEAK OPERATOR [employer] LAB BLOOD ORDERABLES Final Result [facility]
[address] [place] [address], * (ABNORMAL) Comprehensive Metabolic Panel (10/05/2023 8:47 AM EST) Glucose 98 65 - 99 mg/dL 10/05/2023 9:58 AM [facility] BUN 15 6 - 20 mg/dL 10/05/2023 9:58 AM [facility] Creatinine 0.87 0.57 - 1.00 mg/dL 10/05/2023 9:58 AM [facility] Sodium 139 136 - 145 mmol/L 10/05/2023 9:58 AM [facility] Potassium 4.0 3.5 - 5.2 mmol/L 10/05/2023 9:58 AM [facility] Chloride 99 98 - 107 mmol/L 10/05/2023 9:58 AM [facility] CO2 30.0(H) 22.0 - 29.0 mmol/L 10/05/2023 9:58 AM [facility] Calcium 10.0 8.6 - 10.5 mg/dL 10/05/2023 9:58 AM [facility] Total Protein 7.7 6.0 - 8.5 g/dL 10/05/2023 9:58 AM [facility] Albumin 4.4 3.5 - 5.2 g/dL 10/05/2023 9:58 AM [facility] ALT (SGPT) 17 1 - 33 U/L 10/05/2023 9:58 AM EST [facility] AST (SGOT) 14 1 - 32 U/L 10/05/2023 9:58 AM EST [facility] Alkaline Phosphatase 102 39 - 117 U/L 10/05/2023 9:58 AM EST [facility] Total Bilirubin 0.3 0.0 - 1.2 mg/dL 10/05/2023 9:58 AM EST [facility] Globulin 3.3 gm/dL 10/05/2023 9:58 AM EST [facility] Comment:Calculated Result A/G Ratio 1.3 g/dL 10/05/2023 9:58 AM EST [facility] BUN/Creatinine Ratio 17.2 7.0 - 25.0 10/05/2023 9:58 AM [facility] Anion Gap 10.0 5.0 - 15.0 mmol/L 10/05/2023 9:58 AM [facility] eGFR 81.8 >60.0 mL/min/1.7 3 10/05/2023 9:58 AM [facility] Blood Venipuncture / Unknown 10/05/2023 8:47 AM EST 10/05/2023 8:47 AM EST [facility] LABORATORY - 10/05/2023 9:58 AM EST GFR Normal >60 Chronic Kidney Disease <60 Kidney Failure <15 Hilda Jarvis LEAK OPERATOR [employer] LAB BLOOD ORDERABLES Final Result [facility]
[address] [place] [address], documented in this encounter Visit Diagnoses Diagnosis Malignant neoplasm of lower-inner quadrant of left breast in female, estrogen receptor positive documented in this encounter Additional Health Concerns Infection Onset Date Last Indicated Resolved Time MRSA 07/20/2023 07/20/2023 Assessment Noted Time PHQ-2 Depression Total Score: 1 10/05/19 24 8:56 AM EST documented as of this encounter Care Teams Handyman Relationship Specialty Start Date End Date Herbert Hair MD [address] [place] [address] [place] [address] PCP - General Adolescent Medicine 03/03/22 documented as of this encounter
--- OUTSIDE RECORDS SUMMARY | 2024-08-17 15:48 | XMS_ITS | Encounter Summary ---
Author Organization [facility] Address [address] [place] [address] Care Team Providers Care Hydraulic Jack Mechanic Name Role Phone Herbert Hair MD Primary Care Provider [phone] Reason for Visit * Reason Onset Date Comments DR INGRID Werner 12/03/2023 Encounter Details Date Type Department Care Team (Late st Contact Info) Description 12/03/[address] [facility] HEMATOLOGY & ONCOLOGY [address] [phone] Bre Crenshaw MD [address] [facility] [address] [place] [id number] INGRID Dodd/Akira Social History Tobacco Use Types Packs/Day Years [...] or training? Not on file Preferred Language Albanian 07/20/2023 PHQ-2 Answer Date Recorded Retired PHQ-9: Brief Depression Severity Measure Score 1 10/05/2023 Comments No Sex and Gender Information Value Date Recorded Sex Assigned at Not on file Legal Sex Female 10:43 AM EDT Gender Identity Not on file Sexual Orientation Not on file documented as of this encounter Miscellaneous Notes * Telephone Encounter - Lucy Contreras - 12/03/2023 9:02 AM EST Spoke with patient, she is rescheduled for 01/10/24 at 3:30pm. * Telephone Encounter - Torri Schwartz RegSched Rep - 12/03/2023 8:53 AM EST Caller: Leydi Brown Relationship to patient: Self Best call back number: [phone] Chief complaint: R/S Type of visit: F/U Requested date: NEXT AVLIABLE If rescheduling, when is the original appointment: 01-16 Additional notes:HUB UNABLE TO R/S documented in this encounter Plan of Treatment Upcoming Encounters Date Type Department Care Team (Late st Contact Info) Description 09/18/2024 3:30 PM EST Office Visit [facility] HEMATOLOGY & ONCOLOGY [address] [facility] [address] [place] [address] Bre Crenshaw MD [address] [facility] [address] [place] [address] 12/31/2024 9:00 AM EDT Office Visit [facility] UROLOGY [address] [facility] [address] [place] [address] Oralia Saha APRN [address] [facility] [address] [place] [address] 05/12/2025 1:45 PM EDT Office Visit [facility] CARDIOLOGY [address] [facility] [address] [place] [phone] Obed Woodard MD [address] [facility] [address] [place] [address] documented as of this encounter Visit Diagnoses Not on filedocumented in this encounter Additional Health Concerns Infection Onset Date Last Indicated Resolved Time MRSA 07/20/2023 07/20/2023 Assessment Noted Time PHQ-2 Depression Total Score: 1 10/05/19 24 8:56 AM EST documented as of this encounter Care Teams Hydraulic Jack Mechanic Relationship Specialty Start Date End Date Herbert Hair MD [address] [facility] [address] [place] [address] PCP - General Adolescent Medicine 03/03/22 documented as of this encounter
--- OUTSIDE RECORDS SUMMARY | 2024-08-17 15:48 | XMS_ITS | Encounter Summary ---
Author Organization [facility] Address [address] [place] [address] Care Team Providers Care Scientific Photographer Name Role Phone Herbert Hair MD Primary Care Provider [phone] Reason for Referral * Diagnostic Imaging (Routine) - Pending Review Specialty Diagnoses / Procedures Referred By Contgualberto t Referred To Contact Radiology Diagnoses Breast pain, right Procedures US Breast Right Limited Hilda Jarvis, LEGAL PROCESS SPECIALIST [address] [facility] [address] [place] [address] Phone: tel: fax: [facility] [address] [facility] [address] [facility] [address] [place] [address] Phone: tel: Referral ID Status Reason Start Date Expiration Date V isits Requested Visits Authorized [id number] Pending Review 10/10/2023 10/09/2024 1 1 Reason for Visit * Diagnostic Imaging (Routine) - Pending Review Specialty Diagnoses / Procedures Referred By Contac t Referred To Contact Radiology Diagnoses Breast pain, right Procedures US Breast Right Limited Hilda Jarvis, LEGAL PROCESS SPECIALIST [address] [facility] [address] [place] [address] Phone: tel: fax: [facility] [address] [facility] [address] [place] [address] Phone: tel: Referral ID Status Reason Start Date Expiration Date V isits Requested Visits Authorized [id number] Pending Review 10/10/2023 10/09/2024 1 1 Encounter Details Date Type Department Care Team (Latest Contact Info) Description 10/10/2023 1:42 PM EST - 10/10/2023 11:59 PM EST Hospital Encounter [facility] [address] [facility] [address] [place] [address] Breast pain, right Discharge Disposition: Home or Self Care Social [...] or training? Not on file Preferred Language Malaysian 07/20/2023 PHQ-2 Answer Date Recorded Retired PHQ-9: Brief Depression Severity Measure Score 1 10/05/2023 Comments No Sex and Gender Information Value Date Recorded Sex Assigned at Not on file Legal Sex Female 10:43 AM EDT Gender Identity Not on file Sexual Orientation Not on file documented as of this encounter Medications at Time of Discharge aspirin 81 MG EC tablet Take 1 tablet by mouth Daily. Biotin 5 MG capsule Take 1 capsule by mouth Daily. esomeprazole (nexIUM) 20 MG capsule Take 2 capsules by mouth Every Morning Before Breakfast. fluticasone (FLONASE) 50 MCG/ACT nasal spray Administer 2 sprays into the nostril(s) as directed by provider Daily. levothyroxine (SYNTHROID, LEVOTHROID) 50 MCG tablet Take 1 tablet by mouth Daily. 02/12/2023 Loratadine 10 MG capsule Take 1 capsule by mouth Daily. Misc Natural Products (OSTEO BI-FLEX ADV JOINT SHIELD PO) Take 1 tablet by mouth Daily. MV-Min-Fe Fum-FA-DHA ( Multivitamin Plus DHA) 27-0.8-250 MG capsule Take 900 doses by mouth Daily. propranolol (INDERAL) 20 MG tablet Take 1 tablet by mouth every night at bedtime. 08/12/2022 anastrozole (ARIMIDEX) 1 MG tablet Take 1 tablet by mouth Daily. 30 tablet 11 04/11/2023 4 busPIRone (BUSPAR) 15 MG tablet Take 1 tablet by mouth 2 (Two) Times a Day. 2nd time at bedtime. 08/11/2022 4 ondansetron ODT (ZOFRAN-ODT) 8 MG disintegrating tabletIndications:M alignant neoplasm of lower-inner quadrant of left breast in female, estrogen receptor positive DISSOLVE 1 TABLET IN MOUTH EVERY 8 HOURS NEEDED FOR NAUSEA FOR VOMITING 30 tablet 2 09/17/2023 4 rosuvastatin (CRESTOR) 10 MG tablet Take 1 tablet by mouth Daily. 90 tablet 3 06/07/2023 4 telmisartan-hydroch lorothiazide (MICARDIS HCT) 40-12.5 MG per tablet Take 1 tablet by mouth Every Evening. 11/28/2020 4 documented as of this encounter Plan of Treatment Upcoming Encounters Date Type Department Care Team (Late st Contact Info) Description 09/18/2024 3:30 PM EST Office Visit [facility] HEMATOLOGY & ONCOLOGY [address] [facility] [address] [place] [address] Bre Crenshaw MD [address] [facility] [address] [place], [place] [id number] 12/31/2024 9:00 AM EDT Office Visit [facility] UROLOGY [address] [facility] [address] [place] [address] Oralia Saha APRN [address] [facility] [address] [place] [address] 05/12/2025 1:45 PM EDT Office Visit [facility] CARDIOLOGY [address] [facility] [address] [place] [phone] Obed Woodard MD [address] [facility] [address] [place], [place] [phone] documented as of this encounter Procedures Procedure Name Priority Date/Time Associated Diagnosis Comments US BREAST RIGHT LIMITED STAT 10/10/2023 2:35 PM EST Breast pain, right documented in this encounter Results * US Breast Right Limited (10/10/2023 2:35 PM EST) Anatomical Region Laterality Modality Breast Right Ultrasound 10/11/2023 8:34 AM EST Impressions 10/11/2023 8:38 AM EST There is a 7 cm fluid collection in the lateral breast consistent with the patient's known persistent postoperative seroma. No ultrasound abnormality is identified in the more central and superior aspects of the mastectomy bed. ACR BI-RADS CATEGORY: 2, BENIGN RECOMMENDATION: Recommend clinical follow-up. If the area of concern is remains clinically concerning or is felt to enlarge further evaluation with breast MRI would be recommended. Also, if desired the patient could return for ultrasound-guided aspiration of the lateral seroma. A letter, in lay terminology, with the results of this exam was given to the patient at the time of the visit. This report was finalized on 10/11/2023 8:[address] Kelly Mckenna MD. Narrative 10/11/2023 8:38 AM EST RIGHT BREAST ULTRASOUND CLINICAL INDICATION: 48-year-old patient presents for ultrasound evaluation of a palpable area of concern noted by her physician in her right mastectomy bed. The patient is status post previous bilateral mastectomies. The patient had a left breast cancer diagnosed in 2021. She also was found to have a skin recurrence in her left mastectomy bed in 2022. The patient is self does not notice any palpable changes in the right mastectomy bed. She does note some tenderness. The patient does have a known seroma in the lateral aspect of her lumpectomy bed which has undergone several drainages. TECHNIQUE: Multiple transverse and sagittal images of the right mastectomy bed were obtained. The patient was imaged in both the supine and upright positions. COMPARISON: There are no previous ultrasounds of the mastectomy bed. FINDINGS: Within the mastectomy bed in the central and superior regions no abnormality is seen. With the patient in the upright position the underlying ribs are prominent. This could account for the palpable area of concern noted by her physician. Imaging of the lateral aspect of the lumpectomy bed does reveal a complex fluid collection measuring up to 7 cm in size. The patient states this has been drained several times in the past and is consistent with a postoperative seroma. us Kelly Mckenna MD [facility] US ORDERABLES Final Resul t documented in this encounter Visit Diagnoses Diagnosis Breast pain, right documented in this encounter Additional Health Concerns Infection Onset Date Last Indicated Resolved Time MRSA 07/20/2023 07/20/2023 Assessment Noted Time PHQ-2 Depression Total Score: 1 10/05/19 24 8:56 AM EST documented as of this encounter Care Teams Scientific Photographer Relationship Specialty Start Date End Date Herbert Hair MD [address] [facility] [address] [facility] [address] [place] [address] PCP - General Adolescent Medicine 03/03/22 documented as of this encounter
--- OUTSIDE RECORDS SUMMARY | 2024-08-17 15:48 | XMS_ITS | Encounter Summary ---
Author Organization [facility] Address [address] [place] [address] Care Team Providers Care Bonderizer Name Role Phone Herbert Hair MD Primary Care Provider [phone] Reason for Visit * Reason Onset Date Comments DR CRENSHAW-CLINICAL QUESTIONS/ NEW MEDICATIONS/UR OLOGY 12/28/2023 Encounter Details Date Type Department Care Team (Late st Contact Info) Description 12/28/2023 Telephone [facility] HEMATOLOGY & ONCOLOGY [address] [phone] Bre Crenshaw MD [address] [place] [id number] CRENSHAW-CLINICAL QUESTIONS/ NEW MEDICATIONS/UROLOGY Social History Tobacco Use Types Packs/Day Years [...] or training? Not on file Preferred Language Swiss 07/20/2023 PHQ-2 Answer Date Recorded Retired PHQ-9: Brief Depression Severity Measure Score 1 10/05/2023 Comments No Sex and Gender Information Value Date Recorded Sex Assigned at Not on file Legal Sex Female 10:43 AM EDT Gender Identity Not on file Sexual Orientation Not on file documented as of this encounter Miscellaneous Notes * Telephone Encounter - Yanet Preston RN - 01/01/2024 8:32 AM EDT I called patient this morning to followup and told her that I had talked with tonja galarza and the preference is to use non-hormonal meds such as replens and not the estradiol and intrarosa. We also have samples of hyalogyn that patient can try and see if they offer her benefit to her symptoms. I had to leave voicemail for patient as she did not answer. I told her that she could come to [facility] and chart picker samples if she would like. I will wait to hear from patient. * Telephone Encounter - Yanet Preston RN - 12/28/2023 4:18 PM EDT I called patient back and urology has prescribed estradiol cream and intrarosa cream for the patient and she wanted to make sure it was okay to use these given her breast cancer. I told her I would have to discuss with the provider Sunday to tell her if she can use these. * Telephone Encounter - Ramos Barton RegSched Rep - 12/28/2023 3:37 PM EDT Caller: Augustine Brown Relationship: Self Best call back number: [phone] What is the best time to reach you: ANYTIME Who are you requesting to speak with (clinical staff, provider, specific staff member): CLINICAL What was the call regarding: SEEN AT [facility] UROLOG YESTERDAY AND THEY ARE WANTING TO PUT AUGUSTINE ON TWO NEW MEDICATIONS CREAMS, HORMONAL RELATED WANTED TO TALK WITH DR CRENSHAW OR NURSE ABOUT THEM BEFORE PICKING THESE UP. Is it okay if the provider responds through MyChart: NO documented in this encounter Plan of Treatment Upcoming Encounters Date Type Department Care Team (Late st Contact Info) Description 09/18/2024 3:30 PM EST Office Visit [facility] HEMATOLOGY & ONCOLOGY [address] [facility] [address] [place] [address] Bre Crenshaw MD [address] [facility] [address] [place] [address] 12/31/2024 9:00 AM EDT Office Visit [facility] UROLOGY [address] [facility] [address] [place] [address] Oralia Saha APRN [address] [place] [address] [address] [place] [address] 05/12/2025 1:45 PM EDT Office Visit [facility] CARDIOLOGY [address] [place] [phone] Obed Woodard MD [address] [place], [place] [id number] documented as of this encounter Visit Diagnoses Not on filedocumented in this encounter Additional Health Concerns Infection Onset Date Last Indicated Resolved Time MRSA 07/20/2023 07/20/2023 Assessment Noted Time PHQ-2 Depression Total Score: 1 10/05/19 24 8:56 AM EST documented as of this encounter Care Teams Bonderizer Relationship Specialty Start Date End Date Herbert Hair MD [address] [facility] [address] [place] [address] PCP - General Adolescent Medicine 03/03/22 documented as of this encounter
--- OUTSIDE RECORDS SUMMARY | 2024-08-17 15:48 | XMS_ITS | Encounter Summary ---
[facility] Organization [facility] Address [address] [place] [address] Care Team Providers Care Charge Hand Name Role Phone Herbert Hair MD Primary Care Provider [phone] Encounter Details Date Type Department Care Team (Late st Contact Info) Description 01/01/2024 Telephone [facility] [address]60 [facility] [address] [place], [place] [phone] Lteitia Ribera PA-C 2039 [facility] [address] [place] [address] Social History Tobacco Use Types Packs/Day Years [...] or training? Not on file Preferred Language British 07/20/2023 PHQ-2 Answer Date Recorded Retired PHQ-9: Brief Depression Severity Measure Score 1 10/05/2023 Comments No Sex and Gender Information Value Date Recorded Sex Assigned at Not on file Legal Sex Female 10:43 AM EDT Gender Identity Not on file Sexual Orientation Not on file documented as of this encounter Miscellaneous Notes * Telephone Encounter - Yanet Preston RN - 01/01/2024 11:43 AM EDT I called patient back and explained that Rogerio Ribera had already asked Dr Crenshaw if these meds would be appropriate for use and I was unaware of that prior conversation. Patient verbalized understanding. * Telephone Encounter - Letitia Ribera PA-C - 01/01/2024 11:29 AM EDT Images from the original note were not included. Called patient to discuss her urine PCR results and any current symptoms. Reached her voicemail. Additionally informed the patient that I specifically discussed the safety of Estrace and Intrarosain a direct message to Dr. Crenshaw, who approved the use in this patient, prior to my prescription of the medications. I asked the patient to please give the office a call back at her convenience and will cc hat marker on this message. documented in this encounter Plan of Treatment Upcoming Encounters Date Type Department Care Team (Late st Contact Info) Description 09/18/2024 3:30 PM EST Office Visit [facility] [address] [facility] [address] [address] [place] [address] Bre Crenshaw MD [address] [facility] [address] [address] [place] [address] 12/31/2024 9:00 AM EDT Office Visit [facility] [address] [facility] [address] [place] [address] Oralia Saha APRN 1760 [facility] [address] [place] [address] 05/12/2025 1:45 PM EDT Office Visit [facility] [address] [facility] [address] [place] [phone] Obed Woodard MD 1720 [facility] [address] [place], [place] [phone] documented as of this encounter Visit Diagnoses Not on filedocumented in this encounter Additional Health Concerns Infection Onset Date Last Indicated Resolved Time MRSA 07/20/2023 07/20/2023 Assessment Noted Time PHQ-2 Depression Total Score: 1 10/05/19 24 8:56 AM EST documented as of this encounter Care Teams Charge Hand Relationship Specialty Start Date End Date Herbert Hair MD 1210 [facility] [address] [place] [address] PCP - General Adolescent Medicine 03/03/22 documented as of this encounter
--- OUTSIDE RECORDS SUMMARY | 2024-08-17 15:48 | XMS_ITS | Encounter Summary ---
Author Organization [facility] Address [address] [place] [address] Care Team Providers Care Process Machine Operator Name Role Phone Herbert Hair MD Primary Care Provider [phone] Reason for Visit * Reason Onset Date Comments [facility]-APPT. 10/11/2023 Encounter Details Date Type Department Care Team (Late st Contact Info) Description 10/11/2023 Telephone [facility] HEMATOLOGY & ONCOLOGY [address] [phone] Bre Crenshaw MD [address] [place] [phone] [facility]. Social History Tobacco Use Types Packs/Day Years [...] or training? Not on file Preferred Language Lao 07/20/2023 PHQ-2 Answer Date Recorded Retired PHQ-9: Brief Depression Severity Measure Score 1 10/05/2023 Comments No Sex and Gender Information Value Date Recorded Sex Assigned at Not on file Legal Sex Female 10:43 AM EDT Gender Identity Not on file Sexual Orientation Not on file documented as of this encounter Miscellaneous Notes * Telephone Encounter - Yanet Preston RN - 10/11/2023 4:01 PM EST Per Bria, we can cancel the appt for Oct 17 and make one in [address] Crenshaw. I called patient and let her know and she verbalized understanding. * Telephone Encounter - Hilda Jarvis APRN - 10/11/2023 3:48 PM EST No, she can keep her regular scheduled appointment * Telephone Encounter - Floresita Donaldson - 10/11/2023 3:32 PM EST Patient called since her test came back okay does she still need to come for this visit next week? Please call. documented in this encounter Plan of Treatment Upcoming Encounters Date Type Department Care Team (Late st Contact Info) Description 09/18/2024 3:30 PM EST Office Visit [facility]AT[facility] & [facility]COL[facility]Y [address] [facility] [address] [place] [address] Bre Crenshaw MD [address] [facility] [address] [place] [address] 12/31/2024 9:00 AM EDT Office Visit [facility] [address] [facility] [address] [place] [address] Oralia Saha APRN 1760 [facility] [address] [place] [address] 05/12/2025 1:45 PM EDT Office Visit [facility] CARDIOLOG[facility] [address] [facility] [address] [place] [phone] Obed Woodard MD [address]20 [facility] [address] [place], [place] [phone] documented as of this encounter Visit Diagnoses Not on filedocumented in this encounter Additional Health Concerns Infection Onset Date Last Indicated Resolved Time MRSA 07/20/2023 07/20/2023 Assessment Noted Time PHQ-2 Depression Total Score: 1 10/05/19 24 8:56 AM EST documented as of this encounter Care Teams Process Machine Operator Relationship Specialty Start Date End Date Herbert Hair MD 1210 [facility] [address] [place] [address] PCP - General Adolescent Medicine 03/03/22 documented as of this encounter
--- OUTSIDE RECORDS SUMMARY | 2024-08-17 15:48 | XMS_ITS | Encounter Summary ---
Author Organization [facility] Address [address] [place] [address] Care Team Providers Care Technology Training Associate Name Role Phone Herbert Hair MD Primary Care Provider Reason for Visit * Reason Comments Dyspareunia due to medical condition in female Encounter Details Date Type Department Care Team (Late st Contact Info) Description 01/31/2024 3:30 PM EDT Office Visit [facility] UROLOGY [address] [facility] [address] [place] [address] Letitia Ribera PA-C 2039 [facility] 200 [place] [address] Nocturia more than twice per night (Primary Dx); Recurrent UTI; Vaginal atrophy Social History Tobacco Use Types Packs/Day Years [...] or training? Not on file Preferred Language Cambodian 07/20/2023 PHQ-2 Answer Date Recorded Retired PHQ-9: Brief Depression Severity Measure Score 1 10/05/2023 Comments No Sex and Gender Information Value Date Recorded Sex Assigned at Not on file Legal Sex Female 10:43 AM EDT Gender Identity Not on file Sexual Orientation Not on file documented as of this encounter Last Filed Vital Signs Vital Sign Reading Time Taken Comments Blood Pressure 125/86 01/31/2024 3:34 PM EDT Pulse 102 01/31/2024 3:34 PM EDT Temperature - - Respiratory Rate - - Oxygen Saturation 98% 01/31/2024 3:34 PM EDT Inhaled Oxygen Concentration - - Weight 90.7 kg (200 lb) 01/31/2024 3:34 PM EDT Height 157.5 cm (5' 2.01 ) 01/31/2024 3:34 PM ED T Body Mass Index 36.57 01/31/2024 3:34 PM EDT documented in this encounter Progress Notes * Letitia Ribera PA-C - 01/31/2024 3:30 PM EDT Images from the original note were not included. Established Female Office Visit Chief Complaint Patient presents with Dyspareunia due to medical condition in female HPI Ms. Brown is a 49 y.o. female with history of breast cancer on anastrozole, TLH-BSO, recurrent UTI, nocturia who presents for follow up. At this visit, using estrace cream after full consideration and discussion with Dr. Crenshaw. No issues so far. Decreased Hiprex to once per day with concern for headaches, but notes this took place during a sinus infection and headaches have not persisted with once a day use. One night in the last week, had dysuria, but overall has not had concern for UTI. DDAVP has decreased nocturia from 3 times per night to 2 times per night. No perceived adverse effects so far. She is still restricting fluids for at least 2 to 3 hours before bedtime. Despite this, her 2 nocturia episodes are reportedly at least moderate to large volume. Bladder & Bowel Symptom Questionnaire How often [...] you with your symptoms? yes Total Score 13 0-7 (Mild) 8-16 (Moderate) 17-28 (Severe) Past Medical History: Diagnosis Date Acid reflux [...] lenses Wears glasses Wears glasses Past Surgical History: Procedure Laterality Date BREAST [...] RIGHT MASTECTOMY; Surgeon: An Bell MD; Location: [facility] OR; Service: General; Laterality: N/A; TONSILLECTOMY TOTAL LAPAROSCOPIC HYSTERECTOMY N/A 03/15/2023 Procedure: TOTAL LAPAROSCOPIC HYSTERECTOMY BILATERAL SALPINGOOPHORECTOMY WITH DAVINCI ROBOT; Surgeon: Erika Awad MD; Location: [facility], [facility] OR; Service: Robotics - DaVinci; Laterality: N/A; VENOUS ACCESS DEVICE (PORT) INSERTION Right 07/07/2022 VENOUS ACCESS DEVICE (PORT) REMOVAL Current Outpatient Medications: anastrozole (ARIMIDEX) 1 MG tablet, Take 1 tablet by mouth Daily., Disp: 30 tablet, Rfl: 11 aspirin 81 MG EC tablet, Take 1 tablet by mouth Daily., Disp: , Rfl: Biotin 5 MG capsule, Take 1 capsule by mouth Daily., Disp: , Rfl: esomeprazole (nexIUM) 20 MG capsule, Take 2 capsules by mouth Every Morning Before Breakfast., Disp: , Rfl: estradiol (ESTRACE) 0.1 MG/GM vaginal cream, Apply a gram to the urethra daily, Disp: 42.5 g, Rfl: 11 fluticasone (FLONASE) 50 MCG/ACT nasal spray, 2 [...] tablet by mouth Daily., Disp: , Rfl: MV-Min-Fe Fum-FA-DHA ( Multivitamin [...] 2 tablets by mouth Every Night., Disp: 30 tablet, Rfl: 2 ondansetron ODT (ZOFRAN-ODT) 8 MG disintegrating tablet, DISSOLVE 1 TABLET IN MOUTH EVERY 8 HOURS NEEDED FOR NAUSEA FOR VOMITING (Patient not taking: Reported on 01/31/2024), Disp: 30 tablet, Rfl: 2 Physical Exam Visit Vitals BP 125/86 Pulse 102 Ht 157.5 cm (62.01 ) Wt 90.7 kg (200 lb) LMP (LMP Unknown) SpO2 98% BMI 36.57 kg/m?? Labs Brief Urine Lab Results (Last result in the past 365 days) Color Clarity Blood Leuk Est Nitrite Protein CREAT Urine HCG 03/15/23 1149 Negative Lab Results Component Value Date GLUCOSE 156 (H) 01/31/2024 CALCIUM 9.7 01/31/2024 NA 137 01/31/2024 K 3.9 01/31/2024 CO2 24.3 01/31/2024 CL 99 01/31/2024 BUN 14 01/31/2024 CREATININE 0.82 01/31/2024 BCR 17.1 01/31/2024 ANIONGAP 13.7 01/31/2024 Lab Results Component Value Date WBC 5.32 01/10/2024 HGB 12.0 01/10/2024 HCT 35.5 01/10/2024 MCV 90.6 01/10/2024 PLT 290 01/10/2024 Urine Culture 09/18/2023 10:10 Urine Culture Urine Culture 50,000 CFU/mL Escherichia coli 50,000 CFU/mL Escherichia coli Radiographic Studies US Breast Right Limited Result Date: 10/11/2023 There is a 7 cm fluid collection [...] report was finalized on 10/11/2023 8:38 [address] byDr. Kelly Mckenna MD. I have reviewed the above labs and imaging. Assessment / Plan Assessment/Plan: Ms. Brown is a 49 y.o. female with history of breast cancer on anastrozole, TLH-BSO, recurrent UTI, nocturia. As above, Hip-Jean-Paul and Estrace have been started. I recommend she attempt titrating Hip-Jean-Paul back up to twice per day. Reinforced that Estrace will take weeks to months to produce full effect. Doing well with Estrace so far, comfortable using, particularly after full discussion with Dr. Crenshaw. Nocturia has improved but apparently could likely improve further. We will assess her BMP today to ensure no new hyponatremia. If her sodium remains normal, we will discuss dose increase. Again reinforced the importance of restricting fluids at least 1 hour before bedtime, at least 1 hour before DDAVP use. Enforced the importance of strict fluid limitations after taking DDAVP until next morning, 8 hours. Diagnoses and all orders for this visit: 1. Nocturia more than twice per night (Primary) - Basic Metabolic Panel; Future 2. Recurrent UTI -Continue twice daily Hip-Jean-Paul and periurethral Estrace -Repeat urine PCR today Patient is appropriate for 3-month follow-up, prefers [place] location Follow Up: Return in about 3 months (around 05/02/2024) for [place]. Letitia Ribera PA-C [facility] [address] [address] documented in this encounter Plan of Treatment Upcoming Encounters Date Type Department Care Team (Late st Contact Info) Description 09/18/2024 3:30 PM EST Office Visit [facility] HEMATOLOGY & ONCOLOGY [address] [phone] Bre Crenshaw MD [address] [address] 12/31/2024 9:00 AM EDT Office Visit [facility] UROLOGY [address] [address] Oralia Saha APRN 1760 [facility] [address] [place] [address] 05/12/2025 1:45 PM EDT Office Visit [facility] CARDIOLOGY 1720 [facility] [address] [place] [address] Obed Woodard MD 1720 [facility] [address] [phone] documented as of this encounter Procedures Procedure Name Priority Date/Time Associated Diagnosis Comments SCANNED - LABS 01/31/2024 documented in this encounter Results * (ABNORMAL) Basic Metabolic Panel (01/31/2024 4:04 PM EDT) Glucose 156(H) 65 - 99 mg/dL 02/01/2024 12:06 AM T [facility] BUN 14 6 - 20 mg/dL 02/01/2024 12:06 AM [facility] Creatinine 0.82 0.57 - 1.00 mg/dL 02/01/2024 12:06 AM [facility] Sodium 137 136 - 145 mmol/L 02/01/2024 12:06 AM T [facility] Potassium 3.9 3.5 - 5.2 mmol/L 02/01/2024 12:06 AM T [facility] Chloride 99 98 - 107 mmol/L 02/01/2024 12:06 AM [facility] CO2 24.3 22.0 - 29.0 mmol/L 02/01/2024 12:06 AM [facility] Calcium 9.7 8.6 - 10.5 mg/dL 02/01/2024 12:06 AM T [facility] BUN/Creatinine Ratio 17.1 7.0 - 25.0 02/01/2024 12:06 AM [facility] Anion Gap 13.7 5.0 - 15.0 mmol/L 02/01/2024 12:06 AM [facility] eGFR 87.3 >60.0 mL/min/1.7 3 02/01/2024 12:06 AM [facility] Blood Venipuncture / Unknown 01/31/2024 4:04 PM EDT 01/31/2024 4:04 PM EDT Narrative [facility] - 02/01/2024 12:06 AM EDT GFR Normal >60 Chronic Kidney Disease <60 Kidney Failure <15 us Letitia Ribera PA-C LAB BLOOD ORDERABLES Vanda l Result [facility]
[address] [place] [address], * (ABNORMAL) Hemoglobin A1c (01/31/2024 4:04 PM EDT) Hemoglobin A1C 6.20(H) 4.80 - 5.60 % 02/01/2024 12:05 AM EDT [facility] Blood Venipuncture / Unknown 01/31/2024 4:04 PM EDT 01/31/2024 4:04 PM EDT Narrative [facility] - 02/01/2024 12:05 AM EDT Hemoglobin A1C Ranges: Increased Risk for Diabetes ??5.7% to 6.4% Diabetes ? >= 6.5% Diabetic Goal ?< 7.0% Letitia Ribera PA-C LAB BLOOD ORDERABLES Vanda l Result Performing Organization Address [facility] Co de Phone Number [facility]
[address] [place] [address], * TSH (01/31/2024 4:04 PM EDT) [facility] TSH 2.570 0.270 - 4.200 uIU/mL 02/01/2024 12:10 AM EDT [facility] Blood Venipuncture / Unknown 01/31/2024 4:04 PM EDT 01/31/2024 4:04 PM EDT Letitia Ribera PA-C LAB BLOOD ORDERABLES Vanda l Result Performing Organization Address City/[facility]/ZIP Co de Phone Number [facility]
[address] [place] [address], * LABS SCANNED (01/31/2024) Letitia Ribera PA-C LAB BLOOD ORDERABLES Vanda l Result documented in this encounter Visit Diagnoses Diagnosis Nocturia more than twice per night- Primary Recurrent UTI Urinary tract infection, site not specified Vaginal atrophy Postmenopausal atrophic vaginitis documented in this encounter Additional Health Concerns Infection Onset Date Last Indicated Resolved Time MRSA 07/20/2023 07/20/2023 Assessment Noted Time PHQ-2 Depression Total Score: 1 10/05/19 24 8:56 AM EST documented as of this encounter Care Teams Technology Training Associate Relationship Specialty Start Date End Date Herbert Hair MD 1210 [facility] [address] [place] [phone] PCP - General Adolescent Medicine 03/03/22 documented as of this encounter
--- OUTSIDE RECORDS SUMMARY | 2024-08-17 15:48 | XMS_ITS | Encounter Summary ---
Author Organization [facility] Address [address] [place] [address] Care Team Providers Care Manufacturing Worker Name Role Phone Herbert Hair MD Primary Care Provider [phone] Reason for Visit * Reason Comments Med Refill Encounter Details Date Type Department Care Team (Late st Contact Info) Description 09/16/2023 Refill [facility] HEMATOLOGY & ONCOLOGY [address] [facility] [address] [place] [phone] Hilda Jarvis, COIN PURSE ASSEMBLER 1700 [facility] [address] [place] [address] Malignant neoplasm of lower-inner quadrant of left [...] or training? Not on file Preferred Language Bahamian 07/20/2023 PHQ-2 Answer Date Recorded Retired PHQ-9: [...] Description 09/18/2024 3:30 PM EST Office Visit [facility] HEMATOLOGY & ONCOLOGY [address] [facility] [address] [place] [phone] Bre Crenshaw MD [address] [facility] [address] [place] [phone] 12/31/2024 9:00 AM EDT Office Visit [facility] UROLOGY [address] [facility] [address] [place] [phone] Oralia Saha APRN 1760 [facility] [address] [place] [phone] 05/12/2025 1:45 PM EDT Office Visit [facility] CARDIOLOGY [address] [facility] [address] [place] [phone] Obed Woodard MD [address] [facility] [address] [place] [phone] documented as of this encounter Visit Diagnoses Diagnosis Malignant neoplasm of lower-inner quadrant of left breast in female, estrogen receptor positive- Primary documented in this encounter Additional Health Concerns Infection Onset Date Last Indicated Resolved Time MRSA 07/20/2023 07/20/2023 documented as of this encounter Care Teams Manufacturing Worker Relationship Specialty Start Date End Date Herbert Hair MD 1210 [facility] [address] [place] [address] PCP - General Adolescent Medicine 03/03/22 documented as of this encounter
--- OUTSIDE RECORDS SUMMARY | 2024-08-17 15:48 | XMS_ITS | Encounter Summary ---
Author Organization [facility] Address [address] [place] [address] Care Team Providers Care Soft Metals Engraver Hand Name Role Phone Herbert Hair MD Primary Care Provider [phone] Encounter Details Date Type Department Care Team (Late st Contact Info) Description 01/25/2024 Telephone [facility] UROLOGY [address] [facility] [address] [place] [address] Letitia Ribera PA-C 2039 [facility] [address] [place] [phone] Social History Tobacco Use Types Packs/Day Years [...] or training? Not on file Preferred Language Monegasque 07/20/2023 PHQ-2 Answer Date Recorded Retired PHQ-9: Brief Depression Severity Measure Score 1 10/05/2023 Comments No Sex and Gender Information Value Date Recorded Sex Assigned at Not on file Legal Sex Female 10:43 AM EDT Gender Identity Not on file Sexual Orientation Not on file documented as of this encounter Miscellaneous Notes * Telephone Encounter - Denia Lau RegSched Rep - 01/25/2024 2:51 PM EDT Relay [facility] that appointment with Rogerio Bacilio on January 29 at 3:30am has been canceled as she will be out ofthe office that day. Please call our office at [phone] and we can find a new time and date that work for you. Thank you! documented in this encounter Plan of Treatment Upcoming Encounters Date Type Department Care Team (Late st Contact Info) Description 09/18/2024 3:30 PM EST Office Visit [facility] HEMATOLOGY & ONCOLOGY [address] [facility] [address] [place] [phone] Bre Crenshaw MD [address] [facility] [address] [place] [address] 12/31/2024 9:00 AM EDT Office Visit [facility] UROLOGY [address] [facility] [address] [place] [address] Oralia Saha APRN 1760 [facility] [address] [place] [address] 05/12/2025 1:45 PM EDT Office Visit [facility] CARDIOLOGY [address] [facility] [address] [place] [phone] Obed Woodard MD 1720 [facility] [address] [place], [place] [phone] documented as of this encounter Visit Diagnoses Not on filedocumented in this encounter Additional Health Concerns Infection Onset Date Last Indicated Resolved Time MRSA 07/20/2023 07/20/2023 Assessment Noted Time PHQ-2 Depression Total Score: 1 10/05/19 24 8:56 AM EST documented as of this encounter Care Teams Soft Metals Engraver Hand Relationship Specialty Start Date End Date Herbert Hair MD 1210 [facility] [address] [place] [address] PCP - General Adolescent Medicine 03/03/22 documented as of this encounter
--- OUTSIDE RECORDS SUMMARY | 2024-08-17 15:49 | XMS_ITS | Encounter Summary ---
Author Organization [facility] Address [address] [place] [address] Care Team Providers Care [employer] Manager Name Role Phone Herbert Hair MD Primary Care Provider Reason for Visit * Reason Comments Post-op Problem * Auth/Cert (Routine) Specialty Diagnoses / Procedures Referred By Nasrin hernandez Referred To Contact Diagnoses Cellulitis Referral ID Status Reason Start Date Expiration Date Visits Re quested Visits Authorized [id number] 1 1 Encounter Details Date Type Department Care Team (Late st Contact Info) Description 07/19/2023 11:51 PM EDT - 07/22/2023 3:30 PM EDT Hospital Encounter [facility] [address] [place] [address] Silvio Copeland MD [address] [place] [id number] Daisy Dixon MD [address] [facility] 4Th [place] [address] Cristino Camacho MD [address] [address] Tia Daniel MD [address] [place] [place] [address] Cellulitis of chest wall (Primary Dx); History of biopsy; History of left breast cancer; History of bilateral mastectomy; Lymphedema of arm; Chills (without fever); Malaise and fatigue; Generalized body aches; History of hypertension; History of hypothyroidism Discharge Disposition: Home or Self Care Social History Tobacco Use Types Packs/Day Years Used Date Smoking Tobacco: Never Smokeless Tobacco: Never Tobacco Cessation:Counseling Given: No Alcohol Use Standard Drinks/Week Comments Never 0 [...] or training? Not on file Preferred Language Swazi 07/20/2023 PHQ-2 Answer Date Recorded Retired PHQ-9: Brief Depression Severity Measure Score 0 10/26/2022 Comments No Sex and Gender Information Value Date Recorded Sex Assigned at Not on file Legal Sex Female 10:43 AM EDT Gender Identity Not on file Sexual Orientation Not on file documented as of this encounter Last Filed Vital Signs Vital Sign Reading Time Taken Comments Blood Pressure 101/74 07/22/2023 11:29 AM EDT Pulse 70 07/22/2023 11:29 AM EDT Temperature 36.7 ??C (98 ??F) 07/22/2023 11:29 AM EDT Respiratory Rate 18 07/22/2023 11:29 AM EDT Oxygen Saturation 95% 07/22/2023 11:29 AM EDT Inhaled Oxygen Concentration - - Weight 89.8 kg (198 lb) 07/19/2023 11:23 PM EDT Height 157.5 cm (5' 2 ) 07/19/2023 11:23 PM EDT Body Mass Index 36.21 07/19/2023 11:23 PM EDT documented in this encounter Discharge Summaries * Tia Daniel MD - 07/22/2023 7:43 AM EDT Images from the original note were not included. [facility] Medicine Services DISCHARGE SUMMARY Patient Name: Leydi Brown : 1975 Date of Admission: 07/19/2023 11:51 PM Date of Discharge: 07/22/2023 Primary Care Physician: Herbert Hair MD Consults Date and Time Order Name Status Description 07/20/2023 10:13 AM Inpatient Infectious Diseases Consult Completed Hospital Course Presenting Problem: Left breast cellulitis Active Hospital Problems Diagnosis POA ??? Cellulitis [L03.90] Yes Resolved Hospital Problems No resolved problems to display. Hospital Course: Leydi Brown is a 48 y.o. female with history of hypothyroidism, HTN, morbid obesity, breast cancer with bilateral mastectomy, lymphedema status post XRT and chemo, recent chest wall nodule biopsy 07/13 with pathology showing inflammation and atypical cells, who presented to the ER with erythema and pain around the biopsy site. This patient's problems and plans were partially entered by my partner and updated as appropriate by me 07/22/23. Left chest cellulitis History of breast cancer, s/p BL mastectomy. S/p soft tissue biopsy 07/13 -afebrile, no leukocytosis, normotensive, non tachycardic -CT chest: soft tissue thickening L chest wall, no focal collection but there is a small area of hypodensity, early abscess vs phlegmon -pain control; increased oxycodone dosing on 07/21 and added as needed ibuprofen -vanc+ceftriaxone --> dapto/ceftriaxone -ID following -f/u blood cultures (NGTD at time of DC) -MRSA positive -Pain well-controlled today; discussed NO driving while taking opioid pain medication or operating machinery with the patient and she expressed understanding -She stated she has follow-up scheduled with Dr. SPARKS tomorrow -Plan to follow-up in the ID clinic for daily IV abx through PIV - duration TBD by ID on the outpatient setting Abdominal bloating, resolved -started acutely after laying flat for CT scan. KUB looks ok, bladder scan w/o retention -better with simethicone Hypokalemia -replace per protocol Chronic LUE lymphedema -continue elevation -PT ordered Hypothyroidism -c/w home synthroid dose HTN -c/w home antihypertensives HLD -c/w statin Discharge Follow Up Recommendations for outpatient labs/diagnostics: Follow-up with primary care doctor in 5 to 7 days regarding this hospitalization, chronic disease management Follow-up with infectious disease (Dr. Aman Walls) this week Follow-up with Dr. SPARKS as scheduled Day of Discharge HPI: Patient reports significantly improved pain. No fevers. No chills. On room air. No other symptoms or concerns. Review of Systems Gen- No fevers, chills CV- No chest pain, palpitations Resp- No cough, dyspnea GI- No N/V/D, abd pain Vital Signs: Temp: [98 ??F (36.7 ??C)-99 ??F (37.2 ??C)] 98 ??F (36.7 ??C) Heart Rate: [99] 99 Resp: [16-18] 18 BP: (101-115)/(67-74) 101/74 Physical Exam: Constitutional: No acute distress, awake, alert HENT: NCAT, mucous membranes moist Respiratory: Clear to auscultation bilaterally, respiratory effort normal Cardiovascular: RRR, no murmurs, rubs, or gallops Gastrointestinal: Positive bowel sounds, soft, nontender, nondistended Musculoskeletal: No bilateral ankle edema Psychiatric: Appropriate affect, cooperative Neurologic: PERRL, symmetric facies, speech clear Skin: Left chest wall cellulitis, induration, no fluctuance or drainage Pertinent and/or Most Recent Results LAB RESULTS: Lab 07/22/23 0648 07/21/23 0503 07/20/23 0104 WBC 6.70 7.28 7.45 HEMOGLOBIN 12.8 12.0 12.0 HEMATOCRIT 37.8 36.1 35.9 PLATELETS 207 186 209 NEUTROS ABS 4.21 4.54 4.53 IMMATURE GRANS (ABS) 0.03 0.02 0.02 LYMPHS ABS 1.52 1.81 1.96 MONOS ABS 0.73 0.75 0.74 EOS ABS 0.19 0.14 0.19 MCV 92.6 95.0 92.8 PROCALCITONIN -- -- 0.05 LACTATE -- -- 1.1 Lab 07/22/23 0648 07/21/23 0503 07/20/23 1639 07/20/23 0104 SODIUM 133* 134* -- 139 POTASSIUM 4.3 4.0 4.1 3.0* CHLORIDE 96* 99 -- 102 CO2 27.0 23.0 -- 27.0 ANION GAP 10.0 12.0 -- 10.0 BUN 16 11 -- 19 CREATININE 0.77 0.74 -- 0.82 EGFR 94.7 99.3 -- 87.8 GLUCOSE 131* 141* -- 170* CALCIUM 9.8 9.5 -- 9.1 MAGNESIUM 1.9 1.9 -- 1.7 HEMOGLOBIN A1C -- -- -- 6.40* Lab 07/20/23 010 TOTAL PROTEIN 6.7 ALBUMIN 4.0 GLOBULIN 2.7 ALT (SGPT) 8 AST (SGOT) 14 BILIRUBIN 0.3 ALK PHOS 74 Lab 07/20/23 0104 HSTROP T 10* Brief Urine Lab Results (Last result in the past 365 days) Color Clarity Blood Leuk Est Nitrite Protein CREAT Urine HCG 03/15/23 1149 Negative Microbiology Results (last 10 days) Procedure Component Value - Date/Time MRSA Screen, PCR (Inpatient) - Swab, Nares [[id number]] (Abnormal) Collected: 07/20/23 1035 Lab Status: Final result Specimen: Swab from Nares Updated: 07/20/23 1159 MRSA PCR Positive Narrative: The negative predictive value of this diagnostic test is high and should only be used to consider de-escalating anti-MRSA therapy. A positive result may indicate colonization with MRSA and must be correlated clinically. Blood Culture - Blood, Arm, Right [[id number]] (Normal) Collected: 07/20/23 0200 Lab Status: Preliminary result Specimen: Blood from Arm, Right Updated: 07/22/23 0231 Blood Culture No growth at 2 days Blood Culture - Blood, Arm, Right [[id number]] (Normal) Collected: 07/20/23 0104 Lab Status: Preliminary result Specimen: Blood from Arm, Right Updated: 07/22/23 0131 Blood Culture No growth at 2 days XR Abdomen KUB Result Date: 07/20/2023 XR ABDOMEN KUB Date of Exam: 07/20/2023 3:14 AM CDT Indication: Abdominal pain, bloating Comparison: CT abdomen and pelvis 07/05/2023 Findings: No gross free air or pneumatosis though evaluation is slightly limited due to technique. There is contrast material within the renal collecting systems bilaterally and urinary bladder. There is a non obstructive bowel gas pattern. A mild stool burden is present. No suspicious calcifications identified. No acute osseous abnormality identified. Surgical clips overlie the right upper quadrant. Impression: Mild fecal stasis compatible with constipation. Electronically Signed: Candis Flynn MD 07/20/2023 6:32 AM CDT Workstation ID: [id number] CT Chest With Contrast Diagnostic Result Date: 07/20/2023 CT CHEST W CONTRAST DIAGNOSTIC Date of Exam: 07/20/2023 2:21 AM EDT Indication: recent biopsy left chest wall, h/o breast CA. Increased redness, warmth, r/o deep space infection.. Comparison: 07/05/2023. Technique: Axial CT images were obtained of the chest after the uneventful intravenous administration of intravenous contrast. Reconstructed coronal and sagittal images were also obtained. Automated exposure control and iterative construction methods were used. Findings: Hilum and Mediastinum: No pathologically enlarged lymph nodes. Normal heart size. No pericardial effusion. Unremarkable thoracic aorta and pulmonary arteries. Lung Parenchyma and Pleura: No focal consolidations. Azygous lobepresent. No suspicious pulmonary nodules. No endobronchial lesions. No significant pleural effusions. Upper Abdomen: No acute process. Soft tissues: Postsurgical changes are seen related to previous left mastectomy. Soft tissue thickening is seen along the left chest wall with stranding and diffuseskin thickening which appears more pronounced as compared to the previous study.. No focal collection identified. Patchy stranding and hypodensity seen within the posterior left breast region measuring approximate 1.7 x 2.2 cm (series 3 image 64) with no evidence of peripheral enhancement. No evidence of axillary adenopathy identified. Remaining subcutaneous tissues appear unremarkable.. Osseous structures: No aggressive focal lytic or sclerotic osseous lesions. No destructive changes identified. No suspicious osseous lesions. Mild degenerative changes are present. Impression: 1.Postsurgical changes are seen related to previous left mastectomy. Soft tissue thickening is seen along the left chest wall with stranding and diffuse skin thickening which appears morepronounced as compared to the previous study likely related to cellulitis. No focal collection identified though there is a small patchy area of hypodensity seen within the posterior aspect of the left mastectomy changes with no peripheral enhancement likely related to phlegmon and possible early developing abscess, new as compared to the previous study. No evidence of metastatic disease. No acute cardiopulmonary process. 2.Ancillary findings as described above. Electronically Signed: Nanette Ashford MD 07/20/2023 2:37 AM EDT Workstation ID: [id number] Stress Test With Myocardial Perfusion One Day Result Date: 07/18/2023 ??? Patient denied chest pain with exercise ??? Expected exercise duration = 8:10. Actual exercise duration = 3:52. HORACIO (+45). Patient stopped secondary to shortness of breath and fatigue ??? There were no ischemic EKG changes ??? Myocardial perfusion imaging indicates a normal myocardial perfusionstudy with no evidence of ischemia. ??? Left ventricular ejection fraction is hyperdynamic (Calculated EF > 70%). ? ? No significant coronary artery calcification ? ? Impressions are consistent with a low risk study. No evidence of ischemia, there was impaired exercise tolerance. Adult Transthoracic Echo Limited W/ Cont if Necessary Per Protocol Result Date: 07/18/2023 ??? Left ventricular systolic function is normal. Calculated left ventricular EF = 61% ??? Global longitudinal LV strain (GLS) = -22.8% ??? There is no evidence of pericardial effusion Results for orders placed during the hospital encounter of 07/18/23 Adult Transthoracic Echo Limited W/ Cont if Necessary Per Protocol Interpretation Summary ??? Left ventricular systolic function is normal. Calculated left ventricular EF = 61% ??? Global longitudinal LV strain (GLS) = -22.8% ??? There is no evidence of pericardial effusion Plan for Follow-up of Pending Labs/Results: ID Pending Labs Order Current Status Blood Culture - Blood, Arm, Right Preliminary result Blood Culture - Blood, Arm, Right Preliminary result Discharge Details Discharge Medications New Medications Instructions Start Date cefTRIAXone Commonly known as: ROCEPHIN 2,000 mg, Intravenous, Every 24 Hours DAPTOmycin 400 mg in sodium chloride 0.9 % 50 mL 6 mg/kg (400 mg), Intravenous, Every 24 Hours oxyCODONE-acetaminophen 10-325 MG per tablet Commonly known as: Percocet 1 tablet, Oral, Every 8 Hours PRN Continue These Medications Instructions Start Date anastrozole 1 MG tablet Commonly known as: ARIMIDEX 1 mg, Oral, Daily Biotin 5 MG capsule 1 capsule, Oral, Daily busPIRone 15 MG tablet Commonly known as: BUSPAR 15 mg, Oral, 2 Times Daily, 2nd time at bedtime. esomeprazole 20 MG capsule Commonly known as: nexIUM 40 mg, Oral, Every Morning Before Breakfast fluticasone 50 MCG/ACT nasal spray Commonly known as: FLONASE 2 sprays, Nasal, Daily HYDROcodone-acetaminophen 5-325 MG per tablet Commonly known as: NORCO 1 tablet, Oral, Every 6 Hours PRN levothyroxine 50 MCG tablet Commonly known as: SYNTHROID, LEVOTHROID 1 tablet, Oral, Daily Loratadine 10 MG capsule 1 capsule, Oral, Daily OSTEO BI-FLEX ADV JOINT SHIELD PO 1 tablet, Oral, Daily Multivitamin Plus DHA 27-0.8-250 MG capsule 900 doses, Oral, Daily propranolol 20 MG tablet Commonly known as: INDERAL 20 mg, Oral, Every Night at Bedtime rosuvastatin 10 MG tablet Commonly known as: CRESTOR 10 mg, Oral, Daily telmisartan-hydrochlorothiazide 40-12.5 MG per tablet Commonly known as: MICARDIS HCT 1 tablet, Oral, Every Evening vitamin B-12 1000 MCG tablet Commonly known as: CYANOCOBALAMIN 1,000 mcg, Oral, Daily vitamin E 400 UNIT capsule 400 Units, Oral, Daily Allergies Allergen Reactions ??? Chlorhexidine Gluconate Rash Discharge Disposition: Home or Self Care Diet: Hospital: Diet Order Procedures ??? Diet: Regular/House Diet, Cardiac Diets; Healthy Heart (2-3 Na+); Texture: Regular Texture (IDDSI 7); Fluid Consistency: Thin (IDDSI 0) Diet Instructions Diet: Cardiac Diets; Healthy Heart (2-3 Na+); Regular Texture (IDDSI 7); Thin (IDDSI 0) Discharge Diet: Cardiac Diets Cardiac Diet: Healthy Heart (2-3 Na+) Texture: Regular Texture (IDDSI 7) Fluid Consistency: Thin (IDDSI 0) Activity: Activity Instructions Driving Restrictions Type of Restriction: Driving Driving Restrictions: No Driving While Taking Narcotics Restrictions or Other Recommendations: As tolerated, per surgeons CODE STATUS: Code Status and Medical Interventions: Ordered at: 07/20/23 0513 Code Status (Patient has no pulse and is not breathing): CPR (Attempt to Resuscitate) Medical Interventions (Patient has pulse or is breathing): Full Support Future Appointments Date Time Provider Department Center 10/15/2023 8:30 AM Hilda Jarvis APRN [facility] 07/01/2024 9:15 AM Obed Woodard MD [facility] Additional Instructions for the Follow-ups that You Need to Schedule Call MD With Problems / Concerns As directed Please seek medical attention for any of the following: Difficulty breathing, chest pain, fevers, worsening redness, swelling, drainage from the incision site Order Comments: Please seek medical attention for any of the following: Difficulty breathing, chestpain, fevers, worsening redness, swelling, drainage from the incision site Discharge Follow-up with PCP As directed Currently Documented PCP: Herbert Hair MD PCP Follow Up Details: Follow-up with primary care doctor in 5 to 7 days for posthospital follow-up Discharge Follow-up with Specified Provider: Follow-up with Dr. Aman Walls this week per theirscheduling As directed To: Follow-up with Dr. Aman Walls this week per their scheduling Discharge Follow-up with Specified Provider: follow-up with Dr. Bell as scheduled tomorrow As directed To: follow-up with Dr. Bell as scheduled tomorrow Tia Daniel MD 07/22/23 Time Spent on Discharge: I spent 45 minutes on this discharge activity which included: [id number] with the patient, reviewing the data in the system, coordination of the care with the nursing staff as well as consultants, documentation, and entering orders. documented in this encounter Discharge Instructions * Attachments The following attachments cannot be sent through Care Everywhere. * Cellulitis Adult (Swazi) * Acetaminophen; Oxycodone Tablets (Swazi) * Ceftriaxone Injection (Swazi) * Daptomycin Injection (Swazi) documented in this encounter Medications at Time of Discharge Biotin 5 MG capsule Take 1 capsule [...] Day. 2nd time at bedtime. 08/11/2022 4 cefTRIAXone (ROCEPHIN) 2000 mg/100 mL 0.9% NS IVPB (MBP)Indications:S kin and Soft Tissue Infection Infuse 100 mL into a venous catheter Daily. Indications: Infection of the Skin and/or Soft Tissue 07/22/2023 4 DAPTOmycin 400 mg in sodium chloride 0.9 % 50 mLIndications:Skin and Soft Tissue Infection Infuse 400 mg into a venous catheter Daily. Indications: Infection of the Skin and/or Soft Tissue 07/22/2023 4 HYDROcodone-acetam inophen (NORCO) 5-325 MG per tablet Take 1 tablet by mouth Every 6 (Six) Hours As Needed. 7 tablet 07/13/2023 3:08 PM EDT 07/13/2023 4 oxyCODONE-acetamin ophen (Percocet) 10-325 MG per tabletIndications: History of bilateral mastectomy Take 1 tablet by mouth Every 8 (Eight) Hours As Needed for Moderate Pain. 9 tablet 07/22/2023 4 rosuvastatin (CRESTOR) 10 MG tablet Take 1 tablet by mouth Daily. 90 tablet 3 06/07/2023 4 telmisartan-hydroc hlorothiazide (MICARDIS HCT) 40-12.5 MG per tablet Take 1 tablet by mouth Every Evening. 11/28/2020 4 vitamin B-12 (CYANOCOBALAMIN) 1000 MCG tablet Take 1 tablet by mouth Daily. 4 vitamin E 400 UNIT capsule Take 1 capsule by mouth Daily. 4 documented as of this encounter Progress Notes * Tia Daniel MD - 07/22/2023 3:30 PM EDT Enter Query Response Below Query Response: Left chest wall cellulitis suspected due to biopsy If applicable, please update the problem list. Patient: Leydi Brown : 1975 Account: [id number] Admit Date: 07/19/2023 How to Respond to this query: a. Click New Note b. Answer query within the yellow box. c. Update the Problem List, if applicable. If you have any questions about this query contact me at: [email or web address] [phone] Dr. Daniel: Risk Factor: s/p bilateral mastectomy due to left sided breast cancer (06/13/22) s/p chemo/XRT, Chronic LUE lymphedema Clinical Indicators: 48 y F presented to the ER with erythema and pain around the biopsy site. (07/19/2023) HP: s/p left chest wall soft tissue biopsy (07/13) with admission diagnosis of left chest cellulitis. CT chest: soft tissue thickening L chest wall, no focal collection but there is a small area of hypodensity, early abscess vs phlegmon. ROS: left sided wound with sutures in place, closed, no drainage or purulence noted. Induration along incision w/o clear fluctuance. Tender and erythematous. ID Consult: Acute left chest wall cellulitis with phlegmon after biopsy 07/13. Left chest wall nodule s/p biopsy 07/13/23 with pathology showing inflammation and atypical cells not conclusive for malignancy. Labs: MRSA + Discharge Summary diagnosis of left chest cellulitis Treatment: IV Vancomycin changed to IV Daptomycin, IV Rocephin, and wound care Please clarify if patient treated/monitored for one or more of the following: Left chest wall cellulitis due to biopsy Left chest wall cellulitis due to other (please specify) Other- specify Unable to determine By submitting this query, we are merely seeking further clarification of documentation to accurately reflect all conditions that you are monitoring, evaluating, treating or that extend the hospitalization or utilize additional resources of care. Please utilize your independent clinical judgment when addressing the question(s) above. This query and your response, once completed, will be entered into the legal medical record. Sincerely, EILEEN Toro, RN, CCDS Clinical Documentation Integrity Program * Aman Walls MD - 07/22/2023 12:17 PM EDT Images from the original note were not included. INFECTIOUS DISEASE Progress note Leydi Singh [place] 1975 [id number] Date of Consult: 07/20/2023 Admission Date: 07/19/2023 Requesting Provider: Cristino Camacho MD Evaluating Physician: Aman Walls MD Reason for Consultation: Left breast cellulitis History of present illness: Leydi Brown is a 48 y.o. female with h/o Javed's disease, hypothyroidism, HTN, morbid obesity, breast cancer/bilateral mastectomy/lymphedema/XRT and chemo, and recent chest wall nodule /13 with pathology c/w inflammation and atypical cell without clear malignancy who presented to [facility] ED on 07/19 with pain and redness around the biopsy site. She has had body aches, fatigue, and chills, but no documented fevers, shortness of breath, nausea, vomiting, diarrhea, or dysuria. On arrival, the patient was afebrile. Labs on 07/20 were PCT 0.05, lactic acid 1.1, WBC 7450 with 61% neutro phils, glucose 170, K 3.0, and creatinine 0.82. Blood cultures are pending. CT scan of chest with contrast on 07/20 showed soft tissue thickening along left chest wall with stranding c/w cellulitis with possible posterior aspect phlegmon or early developing abscess. She is currently on Vancomycin and Rocephin. ID was asked to evaluate and manage her antibiotic therapy. Subjective: 07/21/23: The patient said she is having increased pain today that is not currently under control. No worsening redness or swelling over her left chest wall but similar to yesterday. No fevers. T-maxis 99.1??F. White blood cell count remains normal at 7.28. 07/22/23: Feeling better today and ready to go home. No n/v/d. Chest wall is less tender. She remains afebrile. Has appt with Dr. SPARKS in am. 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 Headache History of radiation therapy 11/29/2022 Left chest wall/regional LNs Hx of radiation therapy 11/2022 Hypertension Hypothyroidism Lymphedema left arm post mastectomy Malignant neoplasm of left breast in female, estrogen receptor positive 05/24/2022 Migraines PONV (postoperative nausea and vomiting) Wears contact lenses Wears glasses Wears glasses Past Surgical History: Procedure Laterality Date BREAST BIOPSY Left 11/2016 lt stereo bx CARPAL TUNNEL RELEASE Right SECTION x 2 COLONOSCOPY 04/20/2017 hemorrhoids D & C HYSTEROSCOPY ENDOMETRIAL ABLATION 10/21/2013 ENDOSCOPY 03/2016 Normal LAPAROSCOPIC CHOLECYSTECTOMY MASTECTOMY Bilateral 06/2022 MASTECTOMY WITH SENTINEL NODE BIOPSY AND AXILLARY NODE DISSECTION N/A 06/13/2022 Procedure: BREAST MASTECTOMY LEFT, AXILLARY NODE DISSECTION LEFT, PROPHYLATIC RIGHT MASTECTOMY; Surgeon: An Bell MD; Location: [facility] OR; Service: General; Laterality: N/A; TONSILLECTOMY TOTAL LAPAROSCOPIC HYSTERECTOMY N/A 03/15/2023 Procedure: TOTAL LAPAROSCOPIC HYSTERECTOMY BILATERAL SALPINGOOPHORECTOMY WITH DAVINCI ROBOT; Surgeon: Erika Awad MD; Location: [facility] OR; Service: Robotics - DaVinci; Laterality: N/A; VENOUS ACCESS DEVICE (PORT) INSERTION Right 07/07/2022 VENOUS ACCESS DEVICE (PORT) REMOVAL Family History Problem Relation Age of Onset Diabetes Mother Hypertension Mother Diabetes Father Hypertension Father Diabetes Maternal Grandmother Heart disease Maternal Grandfather Breast cancer Neg Hx Ovarian cancer Neg Hx Endometrial cancer Neg Hx Uterine cancer Neg Hx Colon cancer Neg Hx Social History Socioeconomic History Marital status: Tobacco Use Smoking status: Never Smokeless tobacco: Never Vaping Use Vaping Use: Never used Substance and Sexual Activity Alcohol use: Never Drug use: Never Sexual activity: Defer control/protection: Hysterectomy Allergies Allergen Reactions Chlorhexidine Gluconate Rash Medication: Current Facility-Administered Medications: acetaminophen (TYLENOL) tablet 1,000 mg, 1,000 mg, Oral, TID, Tia Daniel MD, 1,000 mg at 07/22/23 0850 anastrozole (ARIMIDEX) tablet 1 mg, 1 mg, Oral, Nightly, Cristino Camacho MD, 1 mg at 07/21/23 2159 sennosides-docusate (PERICOLACE) 8.6-50 MG per tablet 2 tablet, 2 tablet, Oral, BID, 2 tablet at 07/22/23 0851 AND polyethylene glycol (MIRALAX) packet 17 g, 17 g, Oral, Daily PRN, 17 g at 07/20/23 0850 AND bisacodyl (DULCOLAX) EC tablet 5 mg, 5 mg, Oral, Daily PRN AND bisacodyl (DULCOLAX) suppository 10 mg, 10 mg, Rectal, Daily PRN, Daisy Dixon MD busPIRone (BUSPAR) tablet 15 mg, 15 mg, Oral, BID, Daisy Dixon MD, 15 mg at 07/22/23 0850 Calcium Replacement - Follow Nurse / BPA Driven Protocol, , Does not apply, PRN, Daisy Dixon MD cefTRIAXone (ROCEPHIN) 2000 mg/100 mL 0.9% NS IVPB (MBP), 2,000 mg, Intravenous, Q24H, Janes Culp PA, 2,000 mg at 07/22/23 1435 DAPTOmycin (CUBICIN) 400 mg in sodium chloride 0.9 % 50 mL IVPB, 6 mg/kg (Adjusted), Intravenous, Q24H, Janes Culp PA, Last Rate: 100 mL/hr at 07/22/23 1259, 400 mg at 07/22/23 1259 Enoxaparin Sodium (LOVENOX) syringe 40 mg, 40 mg, Subcutaneous, Daily, Daisy Dixon MD, 40 mg at 07/22/23 0850 fluticasone (FLONASE) 50 MCG/ACT nasal spray 2 spray, 2 spray, Nasal, Daily, Daisy Dixon MD, 2 spray at 07/22/23 0851 losartan (COZAAR) tablet 50 mg, 50 mg, Oral, Q24H, 50 mg at 07/21/23 2201 AND hydroCHLOROthiazide (HYDRODIURIL) oral 12.5 mg, 12.5 mg, Oral, Q24H, Daisy Dixon MD, 12.5 mg at 07/22/23 0851 HYDROmorphone (DILAUDID) injection 0.5 mg, 0.5 mg, Intravenous, Once, Silvio Copeland MD HYDROmorphone (DILAUDID) injection 0.5 mg, 0.5 mg, Intravenous, Q2H PRN, Daisy Dixon MD, 0.5 mg at 07/21/23 1112 ibuprofen (ADVIL,MOTRIN) tablet 400 mg, 400 mg, Oral, Q6H PRN, Tia Daniel MD, 400 mg at 610 levothyroxine (SYNTHROID, LEVOTHROID) tablet 50 mcg, 50 mcg, Oral, Daily, Daisy Dixon MD, 50 mcg at 07/22/23 1041 Magnesium Standard Dose Replacement - Follow Nurse / BPA Driven Protocol, , Does not apply, PIEDAD, Daisy Dixon MD naloxone (NARCAN) injection 0.4 mg, 0.4 mg, Intravenous, Q5 Min PRN, Tia Daniel MD ondansetron (ZOFRAN) injection 4 mg, 4 mg, Intravenous, Q6H PRN, Cristino Camacho MD, 4 mg at 07/21/23 2158 oxyCODONE (ROXICODONE) immediate release tablet 10 mg, 10 mg, Oral, Q6H PRN, Tia Daniel MD, 10 mg at 07/22/23 1041 pantoprazole (PROTONIX) EC tablet 40 mg, 40 mg, Oral, Q AM, Daisy Dixon MD, 40 mg at 610 Phosphorus Replacement - Follow Nurse / BPA Driven Protocol, , Does not apply, PIEDAD, Daisy Dixon MD Potassium Replacement - Follow Nurse / BPA Driven Protocol, , Does not apply, PIEDAD, Daisy Dixon MD propranolol (INDERAL) tablet 20 mg, 20 mg, Oral, Nightly, Daisy Dixon MD, 20 mg at 07/21/232156 rosuvastatin (CRESTOR) tablet 10 mg, 10 mg, Oral, Nightly, Daisy Dixon MD, 10 mg at 07/21/232156 simethicone (MYLICON) 40 MG/0.6ML drops 40 mg, 40 mg, Oral, 4x Daily PRN, Daisy Dixon MD sodium chloride 0.9 % flush 10 mL, 10 mL, Intravenous, Q12H, Daisy Dixon MD, 10 mL at 07/22/23 0851 sodium chloride 0.9 % flush 10 mL, 10 mL, Intravenous, PRN, Daisy Dixon MD sodium chloride 0.9 % infusion 40 mL, 40 mL, Intravenous, PRN, Daisy Dixon MD Current Outpatient Medications: anastrozole (ARIMIDEX) 1 MG tablet, Take 1 tablet by mouth Daily., Disp: 30 tablet, Rfl: 11 Biotin 5 MG capsule, Take 1 capsule by mouth Daily., Disp: , Rfl: busPIRone (BUSPAR) 15 MG tablet, Take 1 tablet by mouth 2 (Two) Times a Day. 2nd time at bedtime., Disp: , Rfl: cefTRIAXone (ROCEPHIN) 2000 mg/100 mL 0.9% NS IVPB (MBP), Infuse 100 mL into a venous catheter Daily. Indications: Infection of the Skin and/or Soft Tissue, Disp: , Rfl: DAPTOmycin 400 mg in sodium chloride 0.9 % 50 mL, Infuse 400 mg into a venous catheter Daily. Indications: Infection of the Skin and/or Soft Tissue, Disp: , Rfl: esomeprazole (nexIUM) 20 MG capsule, Take 2 capsules by mouth Every Morning Before Breakfast., Disp: , Rfl: fluticasone (FLONASE) 50 MCG/ACT nasal spray, 2 sprays into the nostril(s) as directed by provider Daily., Disp: , Rfl: HYDROcodone-acetaminophen (NORCO) 5-325 MG per tablet, Take 1 tablet by mouth Every 6 (Six) Hours As Needed., Disp: 7 tablet, Rfl: 0 levothyroxine (SYNTHROID, LEVOTHROID) 50 MCG tablet, Take 1 tablet by mouth Daily., Disp: , Rfl: Loratadine 10 MG capsule, Take 1 capsule by mouth Daily., Disp: , Rfl: Misc Natural Products (OSTEO BI-FLEX ADV JOINT [...] mouth Daily., Disp: 90 tablet, Rfl: 3 telmisartan-hydrochlorothiazide (MICARDIS HCT) 40-12.5 MG per tablet, Take 1 tablet by mouth Every Evening., Disp: , Rfl: vitamin B-12 (CYANOCOBALAMIN) 1000 MCG tablet, Take 1 tablet by mouth Daily., Disp: , Rfl: vitamin E 400 UNIT capsule, Take 1 capsule by mouth Daily., Disp: , Rfl: oxyCODONE-acetaminophen (Percocet) 10-325 MG per tablet, Take 1 tablet by mouth Every 8 (Eight) Hours As Needed for Moderate Pain., Disp: 9 tablet, Rfl: 0 Antibiotics: Anti-Infectives (From admission, onward) Ordered Dose/Rate Route Frequency Start Stop 07/22/23 1204 cefTRIAXone (ROCEPHIN) 2000 mg/100 mL 0.9% NS IVPB (MBP) Ordering Provider: Tia Daniel MD 2,000 mg Intravenous Every 24 Hours 07/22/23 0000 07/22/23 1204 DAPTOmycin 400 mg in sodium chloride 0.9 % 50 mL Ordering Provider: Tia Daniel MD 6 mg/kg ?? 66 kg (Adjusted) Intravenous Every 24 Hours 07/22/23 0000 07/20/23 1242 cefTRIAXone (ROCEPHIN) 2000 mg/100 mL 0.9% NS IVPB (MBP) Ordering Provider: Janes Culp PA 2,000 mg over 30 Minutes Intravenous Every 24 Hours 07/20/23 1800 07/25/23 1259 07/20/23 1241 DAPTOmycin (CUBICIN) 400 mg in sodium chloride 0.9 % 50 mL IVPB Ordering Provider: Janes Culp PA 6 mg/kg ?? 66 kg (Adjusted) 100 mL/hr over 30 Minutes Intravenous Every 24 Hours 07/20/23 1400 07/27/23 1259 07/20/23 0248 vancomycin 1750 mg/500 mL 0.9% NS IVPB ([facility]) Ordering Provider: Aislinn Chavis PA-C 20 mg/kg ?? 89.8 kg over 105 Minutes Intravenous Once 07/20/23 0304 07/20/23 0601 07/20/23 0248 cefTRIAXone (ROCEPHIN) 2000 mg/100 mL 0.9% NS IVPB (MBP) Ordering Provider: Aislinn Chavis PA-C 2,000 mg over 30 Minutes Intravenous Once 07/20/23 0304 07/20/23 0421 Review of Systems: As above Physical Exam: Vital Signs Temp (24hrs), Av.4 ??F (36.9 ??C), Min:98 ??F (36.7 ??C), Max:98.9 ??F (37.2 ??C) Temp Min: 98 ??F (36.7 ??C) Max: 98.9 ??F (37.2 ??C) BP Min: 101/74 Max: 102/72 Pulse Min: 70 Max: 70 Resp Min: 16 Max: 18 SpO2 Min: 95 % Max: 95 % GENERAL: Awake and alert, in no acute distress. HEENT: Normocephalic, atraumatic. Anicteric. No conjunctival injection. NECK: Supple HEART: RRR; No murmur, rubs, gallops. LUNGS: TAB. Nonlabored breathing on room air ABDOMEN: Soft, nontender, nondistended. Positive bowel sounds. No rebound or guarding. NO mass or HSM. EXT: Has some chronic lymphedema of her left upper extremity. No cellulitic change noted over her extremities. : Without Albert catheter. MSK: No joint effusions or erythema SKIN: No generalized rashes noted. Left chest wall with anterolateral erythema, swelling, induration, tenderness at biopsy site with no fluctuance or crepitus or drainage NEURO: Oriented to [facility]. Normal speech and cognition PSYCHIATRIC: Normal insight and judgment. Cooperative with PE Laboratory Data Results from last 7 days Lab Units 07/22/23 0648 07/21/23 0503 07/20/23 0104 WBC 10*3/mm3 6.70 7.28 7.45 HEMOGLOBIN g/dL 12.8 12.0 12.0 HEMATOCRIT % 37.8 36.1 35.9 PLATELETS 10*3/mm3 207 186 209 Results from last 7 days Lab Units 07/22/23 0648 SODIUM mmol/L 133* POTASSIUM mmol/L 4.3 CHLORIDE mmol/L 96* CO2 mmol/L 27.0 BUN mg/dL 16 CREATININE mg/dL 0.77 GLUCOSE mg/dL 131* CALCIUM mg/dL 9.8 Results from last 7 days Lab Units 07/20/23 0104 ALK PHOS U/L 74 BILIRUBIN mg/dL 0.3 ALT (SGPT) U/L 8 AST (SGOT) U/L 14 Results from last 7 days Lab Units 07/20/23 0104 LACTATE mmol/L 1.1 Results from last 7 days Lab Units 07/20/23 0104 CK TOTAL U/L 58 Estimated Creatinine Clearance: 92.1 mL/min (by C-G formula based on SCr of 0.77 mg/dL). Microbiology: Microbiology Results (last 10 days) Procedure Component Value - Date/Time MRSA Screen, PCR (Inpatient) - Swab, Nares [[id number]] (Abnormal) Collected: 07/20/23 1035 Lab Status: Final result Specimen: Swab from Nares Updated: 07/20/23 1159 MRSA PCR Positive Narrative: The negative predictive value of this diagnostic test is high and should only be used to consider de-escalating anti-MRSA therapy. A positive result may indicate colonization with MRSA and must be correlated clinically. Blood Culture - Blood, Arm, Right [[id number]] (Normal) Collected: 07/20/23 0200 Lab Status: Preliminary result Specimen: Blood from Arm, Right Updated: 07/22/23 0231 Blood Culture No growth at 2 days Blood Culture - Blood, Arm, Right [[id number]] (Normal) Collected: 07/20/23 0104 Lab Status: Preliminary result Specimen: Blood from Arm, Right Updated: 07/22/23 0131 Blood Culture No growth at 2 days Radiology: Imaging Results (Last 72 Hours) Procedure Component Value Units Date/Time XR Abdomen KUB [[id number]] Collected: 07/20/23 0730 Updated: 07/20/23 0735 Narrative: XR ABDOMEN KUB Date of Exam: 07/20/2023 3:14 AM CDT Indication: Abdominal pain, bloating Comparison: CT abdomen and pelvis 07/05/2023 Findings: No gross free air or pneumatosis though evaluation is slightly limited due to technique. There is contrast material within the renal collecting systems bilaterally and urinary bladder. There is a nonobstructive bowel gas pattern. A mild stool burden is present. No suspicious calcifications identified. No acute osseous abnormality identified. Surgicalclips overlie the right upper quadrant. Impression: Impression: Mild fecal stasis compatible with constipation. Electronically Signed: Candis Flynn MD 07/20/2023 6:32 AM CDT Workstation ID: [id number] CT Chest With Contrast Diagnostic [[id number]] Collected: 07/20/23232 Updated: 07/20/23239 Narrative: CT CHEST W CONTRAST DIAGNOSTIC Date of Exam: 07/20/2023 2:21 AM EDT Indication: recent biopsy left chest wall, h/o breast CA. Increased redness, warmth, r/o deep spaceinfection.. Comparison: 07/05/2023. Technique: Axial CT images were obtained of the chest after the uneventful intravenous administration of intravenous contrast. Reconstructed coronal and sagittal images were also obtained. Automated exposure control and iterative construction methods were used. Findings: Hilum and Mediastinum: No pathologically enlarged lymph nodes. Normal heart size. No pericardial effusion. Unremarkable thoracic aorta and pulmonary arteries. Lung Parenchyma and Pleura: No focal consolidations. Azygous lobe present. No suspicious pulmonary nodules. No endobronchial lesions. No significant pleural effusions. Upper Abdomen: No acute process. Soft tissues: Postsurgical changes are seen related to previous left mastectomy. Soft tissue thickening is seen along the left chest wall with stranding and diffuse skin thickening which appears morepronounced as compared to the previous study.. No focal collection identified. Patchy stranding and hypodensity seen within the posterior left breastregion measuring approximate 1.7 x 2.2 cm (series 3 image 64) with no evidence of peripheral enhancement. No evidence of axillary adenopathy identified. Remaining subcutaneous tissues appear unremarkable.. Osseous structures: No aggressive focal lytic or sclerotic osseous lesions. No destructive changes identified. No suspicious osseous lesions. Mild degenerative changes are present. Impression: Impression: 1.Postsurgical changes are seen related to previous left mastectomy. Soft tissue thickening is seenalong the left chest wall with stranding and diffuse skin thickening which appears more pronounced as compared to the previous study likely related to cellulitis. No focal collection identified though there is a small patchy area of hypodensity seen within the posterior aspect of the left mastectomy changes with no peripheral enhancement likely related to phlegmon and possible early developing abscess, new as compared to the previous study. No evidence of metastatic disease. No acute cardiopulmonary process. 2.Ancillary findings as described above. Electronically Signed: Nanette Ashford MD 07/20/2023 2:37 AM EDT Workstation ID: [id number] Impression: Acute left chest wall cellulitis with phlegmon after biopsy 07/13. Usual culprits for her infectionwould be Staphylococcus and Streptococcus. MRSA is a possibility especially in the setting of her nasal colonization. Left chest wall nodule s/p biopsy 07/13/23 with pathology showing inflammation and atypical cells not conclusive for malignancy. Left breast cancer s/p bilateral mastectomies 06/13/22 with chemo/XRT. 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 Check baseline CPK. Watch CPK closely while on Rosuvastatin and Daptomycin combination therapy as increase risk for myopathy Continue wound care OUTPATIENT IV ANTIBIOTICS: Ceftriaxone 2g IV daily via peripheral IV Daptomycin 500 mg IV daily Weekly CBC CMP ESR CRP Follow up with Dr. Aman Walls on Monday 07/30- our office will call with appt time Dr. Walls has obtained the history, performed the PE, formulated the above treatment plan I (Dr. Walls) independently obtained history, performed a physical exam, and formulated the above assessment and plan. I reviewed the patient's labs, micro, and medications today. I edited the above note to reflect my findings. I discussed in length with the patient and her at bedside today. I discussed with Dr. Daniel today. Aman Walls MD 07/22/2023 17:36 EDT * Aman Walls MD - 07/21/2023 10:12 AM EDT Images from the original note were not included. INFECTIOUS DISEASE Progress note Leydi Brown 1975 [id number] Date of Consult: 07/20/2023 Admission Date: 07/19/2023 Requesting Provider: Cristino Camacho MD Evaluating Physician: Aman Walls MD Reason for Consultation: Left breast cellulitis History of present illness: Leydi Brown is a 48 y.o. female with h/o Javed's disease, hypothyroidism, HTN, morbid obesity, breast cancer/bilateral mastectomy/lymphedema/XRT and chemo, and recent chest wall nodule [id number] with pathology c/w inflammation and atypical cell without clear malignancy who presented to [facility] ED on 07/19 with pain and redness around the biopsy site. She has had body aches, fatigue, and chills, but no documented fevers, shortness of breath, nausea, vomiting, diarrhea, or dysuria. On arrival, the patient was afebrile. Labs on 07/20 were PCT 0.05, lactic acid 1.1, WBC 7450 with 61% neutro phils, glucose 170, K 3.0, and creatinine 0.82. Blood cultures are pending. CT scan of chest with contrast on 07/20 showed soft tissue thickening along left chest wall with stranding c/w cellulitis with possible posterior aspect phlegmon or early developing abscess. She is currently on Vancomycin and Rocephin. ID was asked to evaluate and manage her antibiotic therapy. Subjective: 07/21/23: The patient said she is having increased pain today that is not currently under control. No worsening redness or swelling over her left chest wall but similar to yesterday. No fevers. T-maxis 99.1??F. White blood cell count remains normal at 7.28. 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 Headache History of radiation therapy 11/29/2022 Left chest wall/regional LNs Hx of radiation therapy 11/2022 Hypertension Hypothyroidism Lymphedema left arm post mastectomy Malignant neoplasm of left breast in female, estrogen receptor positive 05/24/2022 Migraines PONV (postoperative nausea and vomiting) Wears contact lenses Wears glasses Wears glasses Past Surgical History: Procedure Laterality Date BREAST BIOPSY Left 11/2016 lt stereo bx CARPAL TUNNEL RELEASE Right SECTION x 2 COLONOSCOPY 04/20/2017 hemorrhoids D & C HYSTEROSCOPY ENDOMETRIAL ABLATION 10/21/2013 ENDOSCOPY 03/2016 Normal LAPAROSCOPIC CHOLECYSTECTOMY MASTECTOMY Bilateral 06/2022 MASTECTOMY WITH SENTINEL NODE BIOPSY AND AXILLARY NODE DISSECTION N/A 06/13/2022 Procedure: BREAST MASTECTOMY LEFT, AXILLARY NODE DISSECTION LEFT, PROPHYLATIC RIGHT MASTECTOMY; Surgeon: An Bell MD; Location: [facility] OR; Service: General; Laterality: N/A; TONSILLECTOMY TOTAL LAPAROSCOPIC HYSTERECTOMY N/A 03/15/2023 Procedure: TOTAL LAPAROSCOPIC HYSTERECTOMY BILATERAL SALPINGOOPHORECTOMY WITH DAVINCI ROBOT; Surgeon: Erika Awad MD; Location: [facility] OR; Service: Robotics - DaVinci; Laterality: N/A; VENOUS ACCESS DEVICE (PORT) INSERTION Right 07/07/2022 VENOUS ACCESS DEVICE (PORT) REMOVAL Family History Problem Relation Age of Onset Diabetes Mother Hypertension Mother Diabetes Father Hypertension Father Diabetes Maternal Grandmother Heart disease Maternal Grandfather Breast cancer Neg Hx Ovarian cancer Neg Hx Endometrial cancer Neg Hx Uterine cancer Neg Hx Colon cancer Neg Hx Social History Socioeconomic History Marital status: Tobacco Use Smoking status: Never Smokeless tobacco: Never Vaping Use Vaping Use: Never used Substance and Sexual Activity Alcohol use: Never Drug use: Never Sexual activity: Defer control/protection: Hysterectomy Allergies Allergen Reactions Chlorhexidine Gluconate Rash Medication: Current Facility-Administered Medications: acetaminophen (TYLENOL) tablet 1,000 mg, 1,000 mg, Oral, TID, Daisy Dixon MD, 1,000 mg at 07/21/23903 anastrozole (ARIMIDEX) tablet 1 mg, 1 mg, Oral, Nightly, Cristino Camacho MD, 1 mg at 07/20/232026 sennosides-docusate (PERICOLACE) 8.6-50 MG per tablet 2 tablet, 2 tablet, Oral, BID, 2 tablet at 07/21/23 09 AND polyethylene glycol (MIRALAX) packet 17 g, 17 g, Oral, Daily PRN, 17 g at 07/20/23 0850 AND bisacodyl (DULCOLAX) EC tablet 5 mg, 5 mg, Oral, Daily PRN AND bisacodyl (DULCOLAX) suppository 10 mg, 10 mg, Rectal, Daily PRN, Daisy Dixon MD busPIRone (BUSPAR) tablet 15 mg, 15 mg, Oral, BID, Daisy Dixon MD, 15 mg at 07/21/23 0904 Calcium Replacement - Follow Nurse / BPA Driven Protocol, , Does not apply, PRN, Daisy Dixon MD cefTRIAXone (ROCEPHIN) 2000 mg/100 mL 0.9% NS IVPB (MBP), 2,000 mg, Intravenous, Q24H, Janes Culp PA, 2,000 mg at 07/20/23 170 DAPTOmycin (CUBICIN) 400 mg in sodium chloride 0.9 % 50 mL IVPB, 6 mg/kg (Adjusted), Intravenous, Q24H, Janes Culp PA, Last Rate: 100 mL/hr at 07/20/23 1521, 400 mg at 07/20/23 1521 Enoxaparin Sodium (LOVENOX) syringe 40 mg, 40 mg, Subcutaneous, Daily, Daisy Dixon MD, 40 mg at 07/21/23 0903 fluticasone (FLONASE) 50 MCG/ACT nasal spray 2 spray, 2 spray, Nasal, Daily, Daisy Dixon MD, 2 spray at 07/21/23 0907 losartan (COZAAR) tablet 50 mg, 50 mg, Oral, Q24H, 50 mg at 07/20/23 2214 AND hydroCHLOROthiazide (HYDRODIURIL) oral 12.5 mg, 12.5 mg, Oral, Q24H, Daisy Dixon MD, 12.5 mg at 07/21/23 0904 HYDROmorphone (DILAUDID) injection 0.5 mg, 0.5 mg, Intravenous, Once, iSlvio Copeland MD HYDROmorphone (DILAUDID) injection 0.5 mg, 0.5 mg, Intravenous, Q2H PRN, Daisy Dixon MD, 0.5 mg at 07/21/23 0624 levothyroxine (SYNTHROID, LEVOTHROID) tablet 50 mcg, 50 mcg, Oral, Daily, Daisy Dixon MD, 50 mcg at 07/21/23 0906 Magnesium Standard Dose Replacement - Follow Nurse / BPA Driven Protocol, , Does not apply, PRN, Daisy Dixon MD ondansetron (ZOFRAN) injection 4 mg, 4 mg, Intravenous, Q6H PRN, Cristino Camacho MD, 4 mg at 07/20/23 1249 oxyCODONE (ROXICODONE) immediate release tablet 5 mg, 5 mg, Oral, Q4H PRN, Daisy Dixon MD, 5 mg at 07/21/23 0904 pantoprazole (PROTONIX) EC tablet 40 mg, 40 mg, Oral, Q AM, Daisy Dixon MD, 40 mg at 623 Phosphorus Replacement - Follow Nurse / BPA Driven Protocol, , Does not apply, Candy HERBERT John L, MD Potassium Replacement - Follow Nurse / BPA Driven Protocol, , Does not apply, Candy HERBERT John L, MD propranolol (INDERAL) tablet 20 mg, 20 mg, Oral, Nightly, Daisy Dixon MD, 20 mg at 07/20/234 rosuvastatin (CRESTOR) tablet 10 mg, 10 mg, Oral, Nightly, Daisy Dixon MD, 10 mg at 07/20/232016 simethicone (MYLICON) 40 MG/0.6ML drops 40 mg, 40 mg, Oral, 4x Daily PRN, Daisy Dixon MD sodium chloride 0.9 % flush 10 mL, 10 mL, Intravenous, Q12H, Daisy Dixon MD, 10 mL at 07/21/23 0907 sodium chloride 0.9 % flush 10 mL, 10 mL, Intravenous, PRN, Daisy Dixon MD sodium chloride 0.9 % infusion 40 mL, 40 mL, Intravenous, PRN, Daisy Dixon MD Antibiotics: Anti-Infectives (From admission, onward) Ordered Dose/Rate Route Frequency Start Stop 07/20/23 1242 cefTRIAXone (ROCEPHIN) 2000 mg/100 mL 0.9% NS IVPB (MBP) Ordering Provider: Janes Culp PA 2,000 mg over 30 Minutes Intravenous Every 24 Hours 07/20/23 1800 07/25/23 1759 07/20/23 1241 DAPTOmycin (CUBICIN) 400 mg in sodium chloride 0.9 % 50 mL IVPB Ordering Provider: Janes Culp PA 6 mg/kg ?? 66 kg (Adjusted) 100 mL/hr over 30 Minutes Intravenous Every 24 Hours 07/20/23 1400 07/27/23 1359 07/20/23 0248 vancomycin 1750 mg/500 mL 0.9% NS IVPB ([facility]) Ordering Provider: Aislinn Chavis PA-C 20 mg/kg ?? 89.8 kg over 105 Minutes Intravenous Once 07/20/23 0304 07/20/23 0601 07/20/23 0248 cefTRIAXone (ROCEPHIN) 2000 mg/100 mL 0.9% NS IVPB (MBP) Ordering Provider: Aislinn Chavis PA-C 2,000 mg over 30 Minutes Intravenous Once 07/20/23 0304 07/20/23 0421 Review of Systems: As above Physical Exam: Vital Signs Temp (24hrs), Av.2 ??F (37.3 ??C), Min:98.8 ??F (37.1 ??C), Max:99.8 ??F (37.7 ??C) Temp Min: 98.8 ??F (37.1 ??C) Max: 99.8 ??F (37.7 ??C) BP Min: 110/74 Max: 131/78 Pulse Min: 87 Max: 97 Resp Min: 16 Max: 18 SpO2 Min: 94 % Max: 98 % GENERAL: Awake and alert, in no acute distress. HEENT: Normocephalic, atraumatic. Anicteric. No conjunctival injection. NECK: Supple without nuchal rigidity. No mass. HEART: RRR; No murmur, rubs, gallops. LUNGS: TAB. Nonlabored breathing on room air ABDOMEN: Soft, nontender, nondistended. Positive bowel sounds. No rebound or guarding. NO mass or HSM. EXT: Has some chronic lymphedema of her left upper extremity. No cellulitic change noted over her extremities. : Without Albert catheter. MSK: No joint effusions or erythema SKIN: No generalized rashes noted. Left chest wall with anterolateral erythema, swelling, induration, tenderness at biopsy site with no fluctuance or crepitus or drainage. -Not significantly changed from yesterday NEURO: Oriented to PPT. Normal speech and cognition PSYCHIATRIC: Normal insight and judgment. Cooperative with PE Laboratory Data Results from last 7 days Lab Units 07/21/23 0503 07/20/23 0104 WBC 10*3/mm3 7.28 7.45 HEMOGLOBIN g/dL 12.0 12.0 HEMATOCRIT % 36.1 35.9 PLATELETS 10*3/mm3 186 209 Results from last 7 days Lab Units 07/21/23 0503 SODIUM mmol/L 134* POTASSIUM mmol/L 4.0 CHLORIDE mmol/L 99 CO2 mmol/L 23.0 BUN mg/dL 11 CREATININE mg/dL 0.74 GLUCOSE mg/dL 141* CALCIUM mg/dL 9.5 Results from last 7 days Lab Units 07/20/23 0104 ALK PHOS U/L 74 BILIRUBIN mg/dL 0.3 ALT (SGPT) U/L 8 AST (SGOT) U/L 14 Results from last 7 days Lab Units 07/20/23 010 LACTATE mmol/L 1.1 Results from last 7 days Lab Units 07/20/23 010 CK TOTAL U/L 58 Estimated Creatinine Clearance: 95.8 mL/min (by C-G formula based on SCr of 0.74 mg/dL). Microbiology: Microbiology Results (last 10 days) Procedure Component Value - Date/Time MRSA Screen, PCR (Inpatient) - Swab, Nares [[id number]] (Abnormal) Collected: 07/20/23 1035 Lab Status: Final result Specimen: Swab from Nares Updated: 07/20/23 1159 MRSA PCR Positive Narrative: The negative predictive value of this diagnostic test is high and should only be used to consider de-escalating anti-MRSA therapy. A positive result may indicate colonization with MRSA and must be correlated clinically. Blood Culture - Blood, Arm, Right [[id number]] (Normal) Collected: 07/20/23 0200 Lab Status: Preliminary result Specimen: Blood from Arm, Right Updated: 07/21/23 0231 Blood Culture No growth at 24 hours Blood Culture - Blood, Arm, Right [[id number]] (Normal) Collected: 07/20/23 0104 Lab Status: Preliminary result Specimen: Blood from Arm, Right Updated: 07/21/23 0131 Blood Culture No growth at 24 hours Radiology: Imaging Results (Last 72 Hours) Procedure Component Value Units Date/Time XR Abdomen KUB [[id number]] Collected: 07/20/23729 Updated: 07/20/23734 Narrative: XR ABDOMEN KUB Date of Exam: 07/20/2023 3:14 AM CDT Indication: Abdominal pain, bloating Comparison: CT abdomen and pelvis 07/05/2023 Findings: No gross free air or pneumatosis though evaluation is slightly limited due to technique. There is contrast material within the renal collecting systems bilaterally and urinary bladder. There is a nonobstructive bowel gas pattern. A mild stool burden is present. No suspicious calcifications identified. No acute osseous abnormality identified. Surgicalclips overlie the right upper quadrant. Impression: Impression: Mild fecal stasis compatible with constipation. Electronically Signed: Candis Flynn MD 07/20/2023 6:32 AM CDT Workstation ID: [id number] CT Chest With Contrast Diagnostic [[id number]] Collected: 07/20/23232 Updated: 07/20/23239 Narrative: CT CHEST W CONTRAST DIAGNOSTIC Date of Exam: 07/20/2023 2:21 AM EDT Indication: recent biopsy left chest wall, h/o breast CA. Increased redness, warmth, r/o deep spaceinfection.. Comparison: 07/05/2023. Technique: Axial CT images were obtained of the chest after the uneventful intravenous administration of intravenous contrast. Reconstructed coronal and sagittal images were also obtained. Automated exposure control and iterative construction methods were used. Findings: Hilum and Mediastinum: No pathologically enlarged lymph nodes. Normal heart size. No pericardial effusion. Unremarkable thoracic aorta and pulmonary arteries. Lung Parenchyma and Pleura: No focal consolidations. Azygous lobe present. No suspicious pulmonary nodules. No endobronchial lesions. No significant pleural effusions. Upper Abdomen: No acute process. Soft tissues: Postsurgical changes are seen related to previous left mastectomy. Soft tissue thickening is seen along the left chest wall with stranding and diffuse skin thickening which appears morepronounced as compared to the previous study.. No focal collection identified. Patchy stranding and hypodensity seen within the posterior left breastregion measuring approximate 1.7 x 2.2 cm (series 3 image 64) with no evidence of peripheral enhancement. No evidence of axillary adenopathy identified. Remaining subcutaneous tissues appear unremarkable.. Osseous structures: No aggressive focal lytic or sclerotic osseous lesions. No destructive changes identified. No suspicious osseous lesions. Mild degenerative changes are present. Impression: Impression: 1.Postsurgical changes are seen related to previous left mastectomy. Soft tissue thickening is seenalong the left chest wall with stranding and diffuse skin thickening which appears more pronounced as compared to the previous study likely related to cellulitis. No focal collection identified though there is a small patchy area of hypodensity seen within the posterior aspect of the left mastectomy changes with no peripheral enhancement likely related to phlegmon and possible early developing abscess, new as compared to the previous study. No evidence of metastatic disease. No acute cardiopulmonary process. 2.Ancillary findings as described above. Electronically Signed: Nanette Ashford MD 07/20/2023 2:37 AM EDT Workstation ID: [id number] Impression: Acute left chest wall cellulitis with phlegmon after biopsy 07/13. Usual culprits for her infectionwould be Staphylococcus and Streptococcus. MRSA is a possibility especially in the setting of her nasal colonization. Left chest wall nodule s/p biopsy 07/13/23 with pathology showing inflammation and atypical cells not conclusive for malignancy. Left breast cancer s/p bilateral mastectomies 06/13/22 with chemo/XRT. 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 Check baseline CPK. Watch CPK closely while on Rosuvastatin and Daptomycin combination therapy as increase risk for myopathy Continue wound care Could potentially consider discharge soon with a short course of IV antibiotics through a peripheral IV with close follow-up. The patient does not feel ready for discharge today given her pain is not under control today. I discussed the patient's case with Dr. Daniel today Aman Walls MD 07/21/2023 10:12 EDT * Tia Daniel MD - 07/21/2023 8:45 AM EDT Images from the original note were not included. [facility] Medicine [facility] PROGRESS NOTE Patient Name: Leydi Brown : 1975 Date of Admission: 07/19/2023 Primary Care Physician: Herbert Hair MD Subjective Subjective CC: Follow-up cellulitis HPI: Afebrile. On room air. Patient's is at bedside. Still with lots of left- sided breast pain. She feels like the Dilaudid helps some, but the oxycodone has not. Objective Objective Vital Signs: Temp: [98.8 ??F (37.1 ??C)-99.8 ??F (37.7 ??C)] 99.1 ??F (37.3 ??C) Heart Rate: [87-97] 93 Resp: [16-18] 16 BP: (110-131)/(71-84) 118/84 Physical Exam: Constitutional: No acute distress, awake, alert HENT: NCAT, mucous membranes moist Respiratory: Clear to auscultation bilaterally, respiratory effort normal Cardiovascular: RRR, no murmurs, rubs, or gallops Gastrointestinal: Positive bowel sounds, soft, nontender, nondistended Musculoskeletal: No bilateral ankle edema Psychiatric: Appropriate affect, cooperative Neurologic: Oriented x 3, strength symmetric in all extremities, Cranial Nerves grossly intact to confrontation, speech clear Skin: Chest wall cellulitis Results Reviewed: LAB RESULTS: Lab 07/21/23 0503 07/20/23 0104 WBC 7.28 7.45 HEMOGLOBIN 12.0 12.0 HEMATOCRIT 36.1 35.9 PLATELETS 186 209 NEUTROS ABS 4.54 4.53 IMMATURE GRANS (ABS) 0.02 0.02 LYMPHS ABS 1.81 1.96 MONOS ABS 0.75 0.74 EOS ABS 0.14 0.19 MCV 95.0 92.8 PROCALCITONIN -- 0.05 LACTATE -- 1.1 Lab 07/21/23 0503 07/20/23 1639 07/20/23 0104 SODIUM 134* -- 139 POTASSIUM 4.0 4.1 3.0* CHLORIDE 99 -- 102 CO2 23.0 -- 27.0 ANION GAP 12.0 -- 10.0 BUN 11 -- 19 CREATININE 0.74 -- 0.82 EGFR 99.3 -- 87.8 GLUCOSE 141* -- 170* CALCIUM 9.5 -- 9.1 MAGNESIUM 1.9 -- 1.7 HEMOGLOBIN A1C -- -- 6.40* Lab 07/20/23 0104 TOTAL PROTEIN 6.7 ALBUMIN 4.0 GLOBULIN 2.7 ALT (SGPT) 8 AST (SGOT) 14 BILIRUBIN 0.3 ALK PHOS 74 Lab 07/20/23 0104 HSTROP T 10* Brief Urine Lab Results (Last result in the past 365 days) Color Clarity Blood Leuk Est Nitrite Protein CREAT Urine HCG 03/15/23 1149 Negative Microbiology Results Abnormal Procedure Component Value - Date/Time Blood Culture - Blood, Arm, Right [[id number]] (Normal) Collected: 07/20/23 0200 Lab Status: Preliminary result Specimen: Blood from Arm, Right Updated: 07/21/23 0231 Blood Culture No growth at 24 hours Blood Culture - Blood, Arm, Right [[id number]] (Normal) Collected: 07/20/23 0104 Lab Status: Preliminary result Specimen: Blood from Arm, Right Updated: 07/21/23 0131 Blood Culture No growth at 24 hours XR Abdomen KUB Result Date: 07/20/2023 XR ABDOMEN KUB Date of Exam: 07/20/2023 3:14 AM CDT Indication: Abdominal pain, bloating Comparison: CT abdomen and pelvis 07/05/2023 Findings: No gross free air or pneumatosis though evaluation is slightly limited due to technique. There is contrast material within the renal collecting systems bilaterally and urinary bladder. There is a non obstructive bowel gas pattern. A mild stool burden is present. No suspicious calcifications identified. No acute osseous abnormality identified. Surgical clips overlie the right upper quadrant. Impression: Impression: Mild fecal stasis compatible with constipation. Electronically Signed: Candis Flynn MD 07/20/2023 6:32 AM CDT Workstation ID: [id number] CT Chest With Contrast Diagnostic Result Date: 07/20/2023 CT CHEST W CONTRAST DIAGNOSTIC Date of Exam: 07/20/2023 2:21 AM EDT Indication: recent biopsy left chest wall, h/o breast CA. Increased redness, warmth, r/o deep space infection.. Comparison: 07/05/2023. Technique: Axial CT images were obtained of the chest after the uneventful intravenous administration of intravenous contrast. Reconstructed coronal and sagittal images were also obtained. Automated exposure control and iterative construction methods were used. Findings: Hilum and Mediastinum: No pathologically enlarged lymph nodes. Normal heart size. No pericardial effusion. Unremarkable thoracic aorta and pulmonary arteries. Lung Parenchyma and Pleura: No focal consolidations. Azygous lobepresent. No suspicious pulmonary nodules. No endobronchial lesions. No significant pleural effusions. Upper Abdomen: No acute process. Soft tissues: Postsurgical changes are seen related to previous left mastectomy. Soft tissue thickening is seen along the left chest wall with stranding and diffuseskin thickening which appears more pronounced as compared to the previous study.. No focal collection identified. Patchy stranding and hypodensity seen within the posterior left breast region measuring approximate 1.7 x 2.2 cm (series 3 image 64) with no evidence of peripheral enhancement. No evidence of axillary adenopathy identified. Remaining subcutaneous tissues appear unremarkable.. Osseous structures: No aggressive focal lytic or sclerotic osseous lesions. No destructive changes identified. No suspicious osseous lesions. Mild degenerative changes are present. Impression: Impression: 1.Postsurgical changes are seen related to previous left mastectomy. Soft tissue thickening is seen along the left chest wall with stranding and diffuse skin thickening which appears more pronounced as compared to the previous study likely related to cellulitis. No focal collection identified though there is a small patchy area of hypodensity seen within the posterior aspect of the left mastectomy changes with no peripheral enhancement likely related to phlegmon and possible early developing abscess, new as compared to the previous study. No evidence of metastatic disease. No acute cardiopulmonary process. 2.Ancillary findings as described above. Electronically Signed: Nanette Ashford MD 07/20/2023 2:37 AM EDT Workstation ID: [id number] Results for orders placed during the hospital encounter of 07/18/23 Adult Transthoracic Echo Limited W/ Cont if Necessary Per Protocol Interpretation Summary Left ventricular systolic function is normal. Calculated left ventricular EF = 61% Global longitudinal LV strain (GLS) = -22.8% There is no evidence of pericardial effusion Current medications: Scheduled Meds:acetaminophen, 1,000 mg, Oral, TID anastrozole, 1 mg, Oral, Nightly busPIRone, 15 mg, Oral, BID cefTRIAXone, 2,000 mg, Intravenous, Q24H DAPTOmycin, 6 mg/kg (Adjusted), Intravenous, Q24H enoxaparin, 40 mg, Subcutaneous, Daily fluticasone, 2 spray, Nasal, Daily losartan, 50 mg, Oral, Q24H And hydroCHLOROthiazide, 12.5 mg, Oral, Q24H HYDROmorphone, 0.5 mg, Intravenous, Once levothyroxine, 50 mcg, Oral, Daily pantoprazole, 40 mg, Oral, Q AM propranolol, 20 mg, Oral, Nightly rosuvastatin, 10 mg, Oral, Nightly senna-docusate sodium, 2 tablet, Oral, BID sodium chloride, 10 mL, Intravenous, Q12H Continuous Infusions: PRN Meds:. senna-docusate sodium AND polyethylene glycol AND bisacodyl AND bisacodyl Calcium Replacement - Follow Nurse / BPA Driven Protocol HYDROmorphone Magnesium Standard Dose Replacement - Follow Nurse / BPA Driven Protocol ondansetron oxyCODONE Phosphorus Replacement - Follow Nurse / BPA Driven Protocol Potassium Replacement - Follow Nurse / BPA Driven Protocol simethicone sodium chloride sodium chloride Assessment & Plan Assessment & Plan Active Hospital Problems Diagnosis POA Cellulitis [L03.90] Yes Resolved Hospital Problems No resolved problems to display. Brief Hospital Course to date: Leydi Brown is a 48 y.o. female with history of hypothyroidism, HTN, morbid obesity, breast cancer with bilateral mastectomy, lymphedema status post XRT and chemo, recent chest wall nodule biopsy 07/13 with pathology showing inflammation and atypical cells, who presented to the ER with erythema and pain around the biopsy site. Left chest cellulitis History of breast cancer, s/p BL mastectomy. S/p soft tissue biopsy 07/13 -afebrile, no leukocytosis, normotensive, non tachycardic -CT chest: soft tissue thickening L chest wall, no focal collection but there is a small area of hypodensity, early abscess vs phlegmon -pain control; increased oxycodone dosing on 07/21 and added as needed ibuprofen -vanc+ceftriaxone --> dapto/ceftriaxone -Follow-up CPK level -ID following -f/u blood cultures -MRSA positive Abdominal bloating -started acutely after laying flat for CT scan. KUB looks ok, bladder scan w/o retention -better with simethicone -monitor Hypokalemia -replace per protocol Chronic LUE lymphedema -continue elevation -PT ordered Hypothyroidism -c/w home synthroid dose HTN -c/w home antihypertensives HLD -c/w statin Expected Discharge Location and Transportation: Home once pain controlled and final ID plan Expected Discharge Expected Discharge Date: 07/23/2023; Expected Discharge Time: DVT prophylaxis: Medical DVT prophylaxis orders are present. AM-PAC 6 Clicks Score (PT): 24 (07/20/23 0830) CODE STATUS: Code Status and Medical Interventions: Ordered at: 07/20/23 0593 Code Status (Patient has no pulse and is not breathing): CPR (Attempt to Resuscitate) Medical Interventions (Patient has pulse or is breathing): Full Support Tia Daniel MD 07/21/23 * Cristino Camacho MD - 07/20/2023 4:10 PM EDT Patient was admitted to the hospitalist service last night after midnight. Today I have seen and examined the patient at the bedside. In the morning she complained of hunger and we started her on p.o. diet. On my examination left axilla around the site of surgery there was redness and slight tenderness very suspicious for cellulitis. Patient already on vancomycin and Rocephin. I consulted infectious disease and they have already seen the patient. They are going to continue Rocephin and also daptomycin but discontinue vancomycin. Overall patient was feeling okay and did not have any other specific complaint. Denies any fever or chills. No chest pain or palpitation or shortness of breath. No nausea vomiting or diarrhea or abdominal pain. Plan: -Continue current medication -Labs are benign except glucose being 170 -Medicine will follow * Saul Sanabria RPH - 07/20/2023 4:39 AM EDT Pharmacy Consult-Vancomycin Dosing Leydi Brown is a 48 y.o. female receiving vancomycin therapy. Indication: Cellulitis Consulting Provider: Dr. Dixon ID Consult: Goal AUC: 400 - 600 mg/L*hr Current Antimicrobial Therapy Anti-Infectives (From admission, onward) Ordered Dose/Rate Route Frequency Start Stop 07/20/23426 cefTRIAXone (ROCEPHIN) 1000 mg/100 mL 0.9% NS (MBP) Ordering Provider: Daisy Dixon MD 1,000 mg over 30 Minutes Intravenous Every 24 Hours 07/20/23 1800 07/25/23175807/20/23 043 vancomycin (VANCOCIN) 1000 mg/200 mL dextrose 5% IVPB Ordering Provider: Saul Sanabria RPH 1,000 mg over 60 Minutes Intravenous Every 12 Hours 07/20/23 1800 07/25/23 17507/20/23426 Pharmacy to dose vancomycin Ordering Provider: Daisy Dixon MD Does not apply Continuous PRN 07/20/23 0426 07/27/23 04207/20/23 0248 vancomycin 1750 mg/500 mL 0.9% NS IVPB ([facility]) Ordering Provider: Aislinn Chavis PA-C 20 mg/kg ?? 89.8 kg over 105 Minutes Intravenous Once 07/20/23 0304 07/20/23 0248 cefTRIAXone (ROCEPHIN) 2000 mg/100 mL 0.9% NS IVPB (MBP) Ordering Provider: Aislinn Chavis PA-C 2,000 mg over 30 Minutes Intravenous Once 07/20/23 0304 07/20/23 042 Allergies Allergies as of 07/19/2023 - Reviewed 07/19/2023 Allergen Reaction Noted Chlorhexidine gluconate Rash 03/07/2023 Labs Results from last 7 days Lab Units 07/20/23 0104 BUN mg/dL 19 CREATININE mg/dL 0.82 Results from last 7 days Lab Units 07/20/23 0104 WBC 10*3/mm3 7.45 Evaluation of Dosing Last Dose Received in the ED/Outside Facility: Vancomycin 1750 mg IV x 1 (07/20 04:16) Is Patient on Dialysis or Renal Replacement: Ht - 157.5 cm (62 ) Wt - 89.8 kg (198 lb) Estimated Creatinine Clearance: 86.5 mL/min (by C-G formula based on SCr of 0.82 mg/dL). Intake & Output (last 3 days) 07/17 0707/18 0707/18 0707/19 0707/19 0707/20 07 IV Piggyback 100 Total Intake(mL/kg) 100 (1.1) Net +100 Microbiology and Radiology Microbiology Results (last 10 days) No results found for the last 240 hours. Reported Vancomycin Levels Insight[employer] AUC Calculation: Current AUC: 0 mg/L*hr Predicted Steady State AUC on Current Dose: 448 mg/L*hr (1000 mg Q12H) Predicted Steady State AUC on New Dose: mg/L*hr Assessment/Plan: Vancomycin 1750 mg IV x 1 (given), then Vancomycin 1000 mg IV Q12H (11 mg/kg/dose) Vancomycin level before 5th dose (06:00 dose on Sunday07/22/23) MRSA Screen PCR ordered BMP x 2 days Pharmacy to follow Saul Sanabria Celeste 07/20/23 04:30 documented in this encounter H&P Notes * Daisy Dixon MD - 07/20/2023 3:19 AM EDT Images from the original note were not included. [facility] Medicine [facility] HISTORY AND PHYSICAL Patient Name: Leydi Borwn : 1975 Primary Care Physician: Herbert Hair MD Date of admission: 07/19/2023 Subjective Subjective Chief Complaint: Wound redness HPI: Leydi Brown is a 48 y.o. female with hx hypertension, hypothyroidism, GERD, breast cancers/p BL mastectomy with recent biopsy of chest wall nodule 07/13. Pathology significant for reactiveinflammation and atypical cells without clear malignancy. Since yesterday she noted pain and redness of the incision site, tender to touch. It has worsened since then. She notes myalgias, fatigue, and chills since then. No fevers, dizziness, chest pain, difficulty breathing, abdominal pain, or lower extremity edema. Personal History 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 Headache History of radiation therapy 11/29/2022 Left chest wall/regional LNs Hx of radiation therapy 11/2022 Hypertension Hypothyroidism Lymphedema left arm post mastectomy Malignant neoplasm of left breast in female, estrogen receptor positive 05/24/2022 Migraines PONV (postoperative nausea and vomiting) Wears contact lenses Wears glasses Wears glasses Oncology Problem List: Malignant neoplasm of lower-outer quadrant of left female breast (; Status: Active) Malignant neoplasm of left breast in female, estrogen receptor positive (05/24/2022; Status: Active) Oncology/Hematology History Malignant neoplasm of left breast in female, estrogen receptor positive 05/24/2022 Initial Diagnosis Malignant neoplasm of left breast in female, estrogen receptor positive (HCC) 05/24/2022 Cancer Staged Staging form: Breast, AJCC 8th Edition - Clinical: Stage IIA (cT2, cN1, cM0, G2, ER+, OR+, HER2-) - Signed by Bre Crenshaw MD on 05/24/2022 06/13/2022 Surgery Surgery Procedure: Mastectomies Location: Both breasts 07/13/2022 - 08/31/2022 Chemotherapy OP BREAST AC DD DOXOrubicin / Cyclophosphamide 09/14/2022 - 10/26/2022 Chemotherapy OP BREAST DD PACLitaxel 10/17/2022 - 11/01/2022 Chemotherapy OP SUPPORTIVE HYDRATION + ANTIEMETICS 11/06/2022 - 11/29/2022 Radiation Radiation OncologyTreatment Course: Leydi Brown received 4005 cGy in 15 fractions to leftchestwall and supraclavicular nodes via External Beam Radiation - EBRT. Past Surgical History: Procedure Laterality Date BREAST BIOPSY Left 11/2016 lt stereo bx CARPAL TUNNEL RELEASE Right SECTION x 2 COLONOSCOPY 04/20/2017 hemorrhoids D & C HYSTEROSCOPY ENDOMETRIAL ABLATION 10/21/2013 ENDOSCOPY 03/2016 Normal LAPAROSCOPIC CHOLECYSTECTOMY MASTECTOMY Bilateral 06/2022 MASTECTOMY WITH SENTINEL NODE BIOPSY AND AXILLARY NODE DISSECTION N/A 06/13/2022 Procedure: BREAST MASTECTOMY LEFT, AXILLARY NODE DISSECTION LEFT, PROPHYLATIC RIGHT MASTECTOMY; Surgeon: An Bell MD; Location: [facility]; Service: General; Laterality: N/A; TONSILLECTOMY TOTAL LAPAROSCOPIC HYSTERECTOMY N/A 03/15/2023 Procedure: TOTAL LAPAROSCOPIC HYSTERECTOMY BILATERAL SALPINGOOPHORECTOMY WITH DAVINCI ROBOT; Surgeon: Erika Awad MD; Location: [facility]; Service: Robotics - DaVinci; Laterality: N/A; VENOUS ACCESS DEVICE (PORT) INSERTION Right 07/07/2022 VENOUS ACCESS DEVICE (PORT) REMOVAL Family History: family history includes Diabetes in her father, maternal grandmother, and mother; Heart disease in her maternal grandfather; Hypertension in her father and mother. Social History: reports that she has never smoked. She has never used smokeless tobacco. She reports that she does not drink alcohol and does not use drugs. Social History Social History Narrative Not on file Medications: Available home medication information reviewed. Medications Prior to Admission Medication Sig Dispense Refill Last Dose anastrozole (ARIMIDEX) 1 MG tablet Take 1 tablet by mouth Daily. 30 tablet 11 07/19/2023 at 2100 Biotin 5 MG capsule Take 1 capsule by mouth Daily. 07/19/2023 at 2100 busPIRone (BUSPAR) 15 MG tablet Take 1 tablet by mouth 2 (Two) Times a Day. 2nd time at bedtime. 07/19/2023 at 2100 esomeprazole (nexIUM) 20 MG capsule Take 2 capsules by mouth Every Morning Before Breakfast. 07/19/2023 at 0900 fluticasone (FLONASE) 50 MCG/ACT nasal spray 2 sprays into the nostril(s) as directed by provider Daily. 07/19/2023 at 0900 HYDROcodone-acetaminophen (NORCO) 5-325 MG per tablet Take 1 tablet by mouth Every 6 (Six) Hours AsNeeded. 7 tablet 0 Past Week at 2100 levothyroxine (SYNTHROID, LEVOTHROID) 50 MCG tablet Take 1 tablet by mouth Daily. 07/19/2023 at 0900 Loratadine 10 MG capsule Take 1 capsule by mouth Daily. 07/19/2023 at 2100 [employer] [facility] [employer] Natural Products (OSTEO BI-FLEX ADV JOINT SHIELD PO) Take 1 tablet by mouth Daily. 07/19/2023 at 0900 MV-Min-Fe Fum-FA-DHA ( Multivitamin Plus DHA) 27-0.8-250 MG capsule Take 900 dosesby mouth Daily. 07/19/2023 propranolol (INDERAL) 20 MG tablet Take 1 tablet by mouth every night at bedtime. 07/19/2023 at 2100 rosuvastatin (CRESTOR) 10 MG tablet Take 1 tablet by mouth Daily. 90 tablet 3 07/19/2023 at 2100 telmisartan-hydrochlorothiazide (MICARDIS HCT) 40-12.5 MG per tablet Take 1 tablet by mouth Every Evening. 07/19/2023 at 2100 vitamin B-12 (CYANOCOBALAMIN) 1000 MCG tablet Take 1 tablet by mouth Daily. 07/19/2023 at 2099 vitamin E 400 UNIT capsule Take 1 capsule by mouth Daily. 07/19/2023 at 2100 Allergies Allergen Reactions Chlorhexidine Gluconate Rash Objective Objective Vital Signs: Temp: [98.2 ??F (36.8 ??C)] 98.2 ??F (36.8 ??C) Heart Rate: [73-95] 88 Resp: [18] 18 BP: (105-125)/(69-102) 120/99 Physical Exam - Psychiatric Clinical Nurse Specialist present for exam AAOx3 No acute distress MMM Heart RRR Lungs CTAB Skin - left sided wound with sutures in place, closed, no drainage or purulence noted. Induration along incision w/o clear fluctuance. Tender and erythematous. Result Review: I have personally reviewed the results from the time of this admission to 07/20/2023 06:55 EDT and agree with these findings: [x] Laboratory list / accordion [x] Microbiology [x] Radiology [] EKG/Telemetry [] Cardiology/Vascular [] Pathology [] Old records [] Other: Most notable findings include: See A+P LAB RESULTS: Lab 07/20/23 010 WBC 7.45 HEMOGLOBIN 12.0 HEMATOCRIT 35.9 PLATELETS 209 NEUTROS ABS 4.53 IMMATURE GRANS (ABS) 0.02 LYMPHS ABS 1.96 MONOS ABS 0.74 EOS ABS 0.19 MCV 92.8 PROCALCITONIN 0.05 LACTATE 1.1 Lab 07/20/23 0104 SODIUM 139 POTASSIUM 3.0* CHLORIDE 102 CO2 27.0 ANION GAP 10.0 BUN 19 CREATININE 0.82 EGFR 87.8 GLUCOSE 170* CALCIUM 9.1 MAGNESIUM 1.7 Lab 07/20/23 0104 TOTAL PROTEIN 6.7 ALBUMIN 4.0 GLOBULIN 2.7 ALT (SGPT) 8 AST (SGOT) 14 BILIRUBIN 0.3 ALK PHOS 74 Lab 07/20/23 0104 HSTROP T 10* UA 03/07/2023 12:43 Urinalysis Specific [place], UA 1.018 Ketones, UA Negative Blood, UA Negative Leukocytes, UA Negative Nitrite, UA Negative Microbiology Results (last 10 days) No results found for the last [address] Chest With Contrast Diagnostic Result Date: 07/20/2023 CT CHEST W CONTRAST DIAGNOSTIC Date of Exam: 07/20/2023 2:21 AM EDT Indication: recent biopsy left chest wall, h/o breast CA. Increased redness, warmth, r/o deep space infection.. Comparison: 07/05/2023. Technique: Axial CT images were obtained of the chest after the uneventful intravenous administration of intravenous contrast. Reconstructed coronal and sagittal images were also obtained. Automated exposure control and iterative construction methods were used. Findings: Hilum and Mediastinum: No pathologically enlarged lymph nodes. Normal heart size. No pericardial effusion. Unremarkable thoracic aorta and pulmonary arteries. Lung Parenchyma and Pleura: No focal consolidations. Azygous lobepresent. No suspicious pulmonary nodules. No endobronchial lesions. No significant pleural effusions. Upper Abdomen: No acute process. Soft tissues: Postsurgical changes are seen related to previous left mastectomy. Soft tissue thickening is seen along the left chest wall with stranding and diffuseskin thickening which appears more pronounced as compared to the previous study.. No focal collection identified. Patchy stranding and hypodensity seen within the posterior left breast region measuring approximate 1.7 x 2.2 cm (series 3 image 64) with no evidence of peripheral enhancement. No evidence of axillary adenopathy identified. Remaining subcutaneous tissues appear unremarkable.. Osseous structures: No aggressive focal lytic or sclerotic osseous lesions. No destructive changes identified. No suspicious osseous lesions. Mild degenerative changes are present. Impression: Impression: 1.Postsurgical changes are seen related to previous left mastectomy. Soft tissue thickening is seen along the left chest wall with stranding and diffuse skin thickening which appears more pronounced as compared to the previous study likely related to cellulitis. No focal collection identified though there is a small patchy area of hypodensity seen within the posterior aspect of the left mastectomy changes with no peripheral enhancement likely related to phlegmon and possible early developing abscess, new as compared to the previous study. No evidence of metastatic disease. No acute cardiopulmonary process. 2.Ancillary findings as described above. Electronically Signed: Nanette Ashford MD 07/20/2023 2:37 AM EDT Workstation ID: [id number] Stress Test With Myocardial Perfusion One Day Result Date: 07/18/2023 Patient denied chest pain with exercise Expected exercise duration = 8:10. Actual exercise duration= 3:52. HORACIO (+45). Patient stopped secondary to shortness of breath and fatigue There were no ischemic EKG changes Myocardial perfusion imaging indicates a normal myocardial perfusion study with no evidence of ischemia. Left ventricular ejection fraction is hyperdynamic (Calculated EF > 70%). Nosignificant coronary artery calcification Impressions are consistent with a low risk study. No evidence of ischemia, there was impaired exercise tolerance. Adult Transthoracic Echo Limited W/ Cont if Necessary Per Protocol Result Date: 07/18/2023 Left ventricular systolic function is normal. Calculated left ventricular EF = 61% Global longitudinal LV strain (GLS) = -22.8% There is no evidence of pericardial effusion Results for orders placed during the hospital encounter of 07/18/23 Adult Transthoracic Echo Limited W/ Cont if Necessary Per Protocol Interpretation Summary Left ventricular systolic function is normal. Calculated left ventricular EF = 61% Global longitudinal LV strain (GLS) = -22.8% There is no evidence of pericardial effusion Assessment & Plan Assessment & Plan Active Hospital Problems Diagnosis POA Cellulitis [L03.90] Yes Left chest cellulitis History of breast cancer, s/p BL mastectomy. S/p soft tissue biopsy 07/13 -afebrile, no leukocytosis, normotensive, non tachycardic -CT chest: soft tissue thickening L chest wall, no focal collection but there is a small area of hypodensity, early abscess vs phlegmon Plan: -pain control -c/w vanc+ceftriaxone -f/u blood cultures -MRSA nares -gen surg consult Abdominal bloating -started acutely after laying flat for CT scan. KUB looks ok, bladder scan w/o retention -better with simethicone -monitor Hypokalemia -replace per protocol Chronic LUE lymphedema -continue elevation -PT ordered Hypothyroidism -c/w home synthroid dose HTN -c/w home antihypertensives HLD -c/w statin DVT prophylaxis: lovenox CODE STATUS: Code Status and Medical Interventions: Ordered at: 07/20/23 0513 Code Status (Patient has no pulse and is not breathing): CPR (Attempt to Resuscitate) Medical Interventions (Patient has pulse or is breathing): Full Support Expected Discharge (click hyperlink to enter date then refresh the note) Expected Discharge Date: 07/22/2023; Expected Discharge Time: Daisy Dixon MD 07/20/23 Total time spent: 60 minutes Time spent includes time reviewing chart, [id number] time, counseling patient/family/caregiver, ordering medications/tests/procedures, communicating with other health skin care consultant, documenting clinical information in the electronic health record, and coordination of care. documented in this encounter Consult Notes * Aman Walls MD - 07/20/2023 10:34 AM EDTAssociated Order(s): IP CONSULT TO INFECTIOUS DISEASES Images from the original note were not included. INFECTIOUS DISEASE CONSULT/INITIAL HOSPITAL VISIT Leydi Brown 1975 [id number] Date of Consult: 07/20/2023 Admission Date: 07/19/2023 Requesting Provider: Cristino Camacho MD Evaluating Physician: Aman Walls MD Reason for Consultation: Left breast cellulitis History of present illness: Leydi Brown is a 48 y.o. female with h/o Javed's disease, hypothyroidism, HTN, morbid obesity, breast cancer/bilateral mastectomy/lymphedema/XRT and chemo, and recent chest wall nodule [id number] with pathology c/w inflammation and atypical cell without clear malignancy who presented to [facility] ED on 07/19 with pain and redness around the biopsy site. She has had body aches, fatigue, and chills, but no documented fevers, shortness of breath, nausea, vomiting, diarrhea, or dysuria. On arrival, the patient was afebrile. Labs on 07/20 were PCT 0.05, lactic acid 1.1, WBC 7450 with 61% neutro phils, glucose 170, K 3.0, and creatinine 0.82. Blood cultures are pending. CT scan of chest with contrast on 07/20 showed soft tissue thickening along left chest wall with stranding c/w cellulitis with possible posterior aspect phlegmon or early developing abscess. She is currently on Vancomycin and Rocephin. ID was asked to evaluate and manage her antibiotic therapy. 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 Headache History of radiation therapy 11/29/2022 Left chest wall/regional LNs Hx of radiation therapy 11/2022 Hypertension Hypothyroidism Lymphedema left arm post mastectomy Malignant neoplasm of left breast in female, estrogen receptor positive 05/24/2022 Migraines PONV (postoperative nausea and vomiting) Wears contact lenses Wears glasses Wears glasses Past Surgical History: Procedure Laterality Date BREAST BIOPSY Left 11/2016 lt stereo bx CARPAL TUNNEL RELEASE Right SECTION x 2 COLONOSCOPY 04/20/2017 hemorrhoids D & C HYSTEROSCOPY ENDOMETRIAL ABLATION 10/21/2013 ENDOSCOPY 03/2016 Normal LAPAROSCOPIC CHOLECYSTECTOMY MASTECTOMY Bilateral 06/2022 MASTECTOMY WITH SENTINEL NODE BIOPSY AND AXILLARY NODE DISSECTION N/A 06/13/2022 Procedure: BREAST MASTECTOMY LEFT, AXILLARY NODE DISSECTION LEFT, PROPHYLATIC RIGHT MASTECTOMY; Surgeon: An Bell MD; Location: [facility]; Service: General; Laterality: N/A; TONSILLECTOMY TOTAL LAPAROSCOPIC HYSTERECTOMY N/A 03/15/2023 Procedure: TOTAL LAPAROSCOPIC HYSTERECTOMY BILATERAL SALPINGOOPHORECTOMY WITH DAVINCI ROBOT; Surgeon: Erika Awad MD; Location: [facility]; Service: Robotics - DaVinci; Laterality: N/A; VENOUS ACCESS DEVICE (PORT) INSERTION Right 07/07/2022 VENOUS ACCESS DEVICE (PORT) REMOVAL Family History Problem Relation Age of Onset Diabetes Mother Hypertension Mother Diabetes Father Hypertension Father Diabetes Maternal Grandmother Heart disease Maternal Grandfather Breast cancer Neg Hx Ovarian cancer Neg Hx Endometrial cancer Neg Hx Uterine cancer Neg Hx Colon cancer Neg Hx Social History Socioeconomic History Marital status: Tobacco Use Smoking status: Never Smokeless tobacco: Never Vaping Use Vaping Use: Never used Substance and Sexual Activity Alcohol use: Never Drug use: Never Sexual activity: Defer control/protection: Hysterectomy Allergies Allergen Reactions Chlorhexidine Gluconate Rash Medication: Current Facility-Administered Medications: acetaminophen (TYLENOL) tablet 1,000 mg, 1,000 mg, Oral, TID, Daisy Dixon MD, 1,000 mg at 07/20/23 1521 anastrozole (ARIMIDEX) tablet 1 mg, 1 mg, Oral, Nightly, Cristino Camacho MD sennosides-docusate (PERICOLACE) 8.6-50 MG per tablet 2 tablet, 2 tablet, Oral, BID, 2 tablet at 07/20/23 0850 AND polyethylene glycol (MIRALAX) packet 17 g, 17 g, Oral, Daily PRN, 17 g at 07/20/23 0850 AND bisacodyl (DULCOLAX) EC tablet 5 mg, 5 mg, Oral, Daily PRN AND bisacodyl (DULCOLAX) suppository 10 mg, 10 mg, Rectal, Daily PRN, Daisy Dixon MD busPIRone (BUSPAR) tablet 15 mg, 15 mg, Oral, BID, Daisy Dixon MD, 15 mg at 07/20/23 0851 Calcium Replacement - Follow Nurse / BPA Driven Protocol, , Does not apply, PRN, Daisy Dixon MD cefTRIAXone (ROCEPHIN) 2000 mg/100 mL 0.9% NS IVPB (MBP), 2,000 mg, Intravenous, Q24H, Janes Culp PA, 2,000 mg at 07/20/23 1707 DAPTOmycin (CUBICIN) 400 mg in sodium chloride 0.9 % 50 mL IVPB, 6 mg/kg (Adjusted), Intravenous, Q24H, Janes Culp PA, Last Rate: 100 mL/hr at 07/20/23 1521, 400 mg at 07/20/23 1521 Enoxaparin Sodium (LOVENOX) syringe 40 mg, 40 mg, Subcutaneous, Daily, Daisy Dixon MD, 40 mg at 07/20/23 0850 fluticasone (FLONASE) 50 MCG/ACT nasal spray 2 spray, 2 spray, Nasal, Daily, Daisy Dixon MD, 2 spray at 07/20/23 1019 losartan (COZAAR) tablet 50 mg, 50 mg, Oral, Q24H AND hydroCHLOROthiazide (HYDRODIURIL) oral 12.5 mg, 12.5 mg, Oral, Q24H, Daisy Dixon MD, 12.5 mg at 07/20/23 0852 HYDROmorphone (DILAUDID) injection 0.5 mg, 0.5 mg, Intravenous, Once, Silvio Copeland MD HYDROmorphone (DILAUDID) injection 0.5 mg, 0.5 mg, Intravenous, Q2H PRN, Daisy Dixon MD, 0.5 mg at 07/20/23 0853 levothyroxine (SYNTHROID, LEVOTHROID) tablet 50 mcg, 50 mcg, Oral, Daily, Daisy Dixon MD, 50 mcg at 07/20/23 0851 Magnesium Standard Dose Replacement - Follow Nurse / BPA Driven Protocol, , Does not apply, ELOYNCandy John L, MD ondansetron (ZOFRAN) injection 4 mg, 4 mg, Intravenous, Q6H PRN, Cristino Camacho MD, 4 mg at 07/20/23 1249 oxyCODONE (ROXICODONE) immediate release tablet 5 mg, 5 mg, Oral, Q4H PRN, Daisy Dixon MD, 5 mg at 07/20/23 1424 pantoprazole (PROTONIX) EC tablet 40 mg, 40 mg, Oral, Q AM, Daisy Dixon MD, 40 mg at 852 Phosphorus Replacement - Follow Nurse / BPA Driven Protocol, , Does not apply, PRN, Daisy Dixon MD Potassium Replacement - Follow Nurse / BPA Driven Protocol, , Does not apply, PIEDAD, Daisy Dixon MD propranolol (INDERAL) tablet 20 mg, 20 mg, Oral, Nightly, Daisy Dixon MD rosuvastatin (CRESTOR) tablet 10 mg, 10 mg, Oral, Nightly, Daisy Dixon MD simethicone (MYLICON) 40 MG/0.6ML drops 40 mg, 40 mg, Oral, 4x Daily PRN, Daisy Dixon MD sodium chloride 0.9 % flush 10 mL, 10 mL, Intravenous, Q12H, Daisy Dixon MD sodium chloride 0.9 % flush 10 mL, 10 mL, Intravenous, PRN, Daisy Dixon MD sodium chloride 0.9 % infusion 40 mL, 40 mL, Intravenous, PRN, Daisy Dixon MD Antibiotics: Anti-Infectives (From admission, onward) Ordered Dose/Rate Route Frequency Start Stop 07/20/23 1242 cefTRIAXone (ROCEPHIN) 2000 mg/100 mL 0.9% NS IVPB (MBP) Ordering Provider: Janes Culp PA 2,000 mg over 30 Minutes Intravenous Every 24 Hours 07/20/23 1800 07/25/23 1759 07/20/23 1241 DAPTOmycin (CUBICIN) 400 mg in sodium chloride 0.9 % 50 mL IVPB Ordering Provider: Janes Culp PA 6 mg/kg ?? 66 kg (Adjusted) 100 mL/hr over 30 Minutes Intravenous Every 24 Hours 07/20/23 1400 07/27/23 1359 07/20/23 0248 vancomycin 1750 mg/500 mL 0.9% NS IVPB ([facility]) Ordering Provider: Aislinn Chavis PA-C 20 mg/kg ?? 89.8 kg over 105 Minutes Intravenous Once 07/20/23 0304 07/20/23 0601 07/20/23 0248 cefTRIAXone (ROCEPHIN) 2000 mg/100 mL 0.9% NS IVPB (MBP) Ordering Provider: Aislinn Chavis PA-C 2,000 mg over 30 Minutes Intravenous Once 07/20/23 0304 07/20/23 0421 Review of Systems: Constitutional-- No Fever, + chills or sweats. Appetite good, and no malaise. No fatigue. HEENT-- No new vision, hearing or throat complaints. No epistaxis or oral sores. Denies odynophagiaor dysphagia. No headache, photophobia or neck stiffness. CV-- No chest pain, palpitation or syncope Resp-- No SOB/cough/Hemoptysis GI- No nausea, vomiting, or diarrhea. No hematochezia, melena, or hematemesis. Denies jaundice or chronic liver disease. -- No dysuria, hematuria, or flank pain. Denies hesitancy, urgency or burning with urination. Lymph- no swollen lymph nodes in neck/axilla or groin. Heme- No active bruising or bleeding; no Hx of DVT or PE. MS-- no swelling or pain in the bones or joints of arms/legs. No new back pain. Chest wall pain, redness, and swelling at lateral end of mastectomy area and biopsy site. Neuro-- No acute focal weakness or numbness in the arms or legs. No seizures. Skin--Other than left chest wall cellulitis as described per HPI-->No rashes or new lesions. Physical Exam: Vital Signs Temp (24hrs), Av.8 ??F (37.1 ??C), Min:98.2 ??F (36.8 ??C), Max:99.8 ??F (37.7 ??C) Temp Min: 98.2 ??F (36.8 ??C) Max: 99.8 ??F (37.7 ??C) BP Min: 105/77 Max: 125/79 Pulse Min: 73 Max: 96 Resp Min: 16 Max: 18 SpO2 Min: 96 % Max: 100 % GENERAL: Awake and alert, in no acute distress. HEENT: Normocephalic, atraumatic. Pupils equal and round. No conjunctival injection. No icterus. Oropharynx clear without evidence of thrush or exudate. NECK: Supple without nuchal rigidity. No mass. HEART: RRR; No murmur, rubs, gallops. LUNGS: Clear to auscultation bilaterally without wheezing, rales, rhonchi. Normal respiratory effort. Nonlabored. ABDOMEN: Soft, nontender, nondistended. Positive bowel sounds. No rebound or guarding. NO mass or HSM. EXT: Has some chronic lymphedema of her left upper extremity. No cellulitic change noted over her extremities. : Without Labert catheter. MSK: No joint effusions or erythema SKIN: No generalized rashes noted. Left chest wall with anterolateral erythema, swelling, induration, tenderness at biopsy site with no fluctuance or crepitus or drainage. NEURO: Oriented to PPT. Normal speech and cognition PSYCHIATRIC: Normal insight and judgment. Cooperative with PE Laboratory Data Results from last 7 days Lab Units 07/20/23 0104 WBC 10*3/mm3 7.45 HEMOGLOBIN g/dL 12.0 HEMATOCRIT % 35.9 PLATELETS 10*3/mm3 209 Results from last 7 days Lab Units 07/20/23 0104 SODIUM mmol/L 139 POTASSIUM mmol/L 3.0* CHLORIDE mmol/L 102 CO2 mmol/L 27.0 BUN mg/dL 19 CREATININE mg/dL 0.82 GLUCOSE mg/dL 170* CALCIUM mg/dL 9.1 Results from last 7 days Lab Units 07/20/23 0104 ALK PHOS U/L 74 BILIRUBIN mg/dL 0.3 ALT (SGPT) U/L 8 AST (SGOT) U/L 14 Results from last 7 days Lab Units 07/20/23 0104 LACTATE mmol/L 1.1 Results from last 7 days Lab Units 07/20/23 0104 CK TOTAL U/L 58 Estimated Creatinine Clearance: 86.5 mL/min (by C-G formula based on SCr of 0.82 mg/dL). Microbiology: Microbiology Results (last 10 days) Procedure Component Value - Date/Time MRSA Screen, PCR (Inpatient) - Swab, Nares [[id number]] (Abnormal) Collected: 07/20/23 1035 Lab Status: Final result Specimen: Swab from Nares Updated: 07/20/23 1159 MRSA PCR Positive Narrative: The negative predictive value of this diagnostic test is high and should only be used to consider de-escalating anti-MRSA therapy. A positive result may indicate colonization with MRSA and must be correlated clinically. Radiology: Imaging Results (Last 72 Hours) Procedure Component Value Units Date/Time XR Abdomen KUB [[id number]] Collected: 07/20/23729 Updated: 07/20/23 07 Narrative: XR ABDOMEN KUB Date of Exam: 07/20/2023 3:14 AM CDT Indication: Abdominal pain, bloating Comparison: CT abdomen and pelvis 07/05/2023 Findings: No gross free air or pneumatosis though evaluation is slightly limited due to technique. There is contrast material within the renal collecting systems bilaterally and urinary bladder. There is a nonobstructive bowel gas pattern. A mild stool burden is present. No suspicious calcifications identified. No acute osseous abnormality identified. Surgicalclips overlie the right upper quadrant. Impression: Impression: Mild fecal stasis compatible with constipation. Electronically Signed: Candis Flynn MD 07/20/2023 6:32 AM CDT Workstation ID: [id number] CT Chest With Contrast Diagnostic [[id number]] Collected: 07/20/23232 Updated: 07/20/230 Narrative: CT CHEST W CONTRAST DIAGNOSTIC Date of Exam: 07/20/2023 2:21 AM EDT Indication: recent biopsy left chest wall, h/o breast CA. Increased redness, warmth, r/o deep spaceinfection.. Comparison: 07/05/2023. Technique: Axial CT images were obtained of the chest after the uneventful intravenous administration of intravenous contrast. Reconstructed coronal and sagittal images were also obtained. Automated exposure control and iterative construction methods were used. Findings: Hilum and Mediastinum: No pathologically enlarged lymph nodes. Normal heart size. No pericardial effusion. Unremarkable thoracic aorta and pulmonary arteries. Lung Parenchyma and Pleura: No focal consolidations. Azygous lobe present. No suspicious pulmonary nodules. No endobronchial lesions. No significant pleural effusions. Upper Abdomen: No acute process. Soft tissues: Postsurgical changes are seen related to previous left mastectomy. Soft tissue thickening is seen along the left chest wall with stranding and diffuse skin thickening which appears morepronounced as compared to the previous study.. No focal collection identified. Patchy stranding and hypodensity seen within the posterior left breastregion measuring approximate 1.7 x 2.2 cm (series 3 image 64) with no evidence of peripheral enhancement. No evidence of axillary adenopathy identified. Remaining subcutaneous tissues appear unremarkable.. Osseous structures: No aggressive focal lytic or sclerotic osseous lesions. No destructive changes identified. No suspicious osseous lesions. Mild degenerative changes are present. Impression: Impression: 1.Postsurgical changes are seen related to previous left mastectomy. Soft tissue thickening is seenalong the left chest wall with stranding and diffuse skin thickening which appears more pronounced as compared to the previous study likely related to cellulitis. No focal collection identified though there is a small patchy area of hypodensity seen within the posterior aspect of the left mastectomy changes with no peripheral enhancement likely related to phlegmon and possible early developing abscess, new as compared to the previous study. No evidence of metastatic disease. No acute cardiopulmonary process. 2.Ancillary findings as described above. Electronically Signed: Nanette Ashford MD 07/20/2023 2:37 AM EDT Workstation ID: [id number] I (Dr. Walls) independent read the patient's CT chest from today. Impression: Acute left chest wall cellulitis with phlegmon after biopsy 07/13. Usual culprits for her infectionwould be Staphylococcus and Streptococcus. MRSA is a possibility especially in the setting of her nasal colonization. Left chest wall nodule s/p biopsy 07/13/23 with pathology showing inflammation and atypical cells not conclusive for malignancy. Left breast cancer s/p bilateral mastectomies 06/13/22 with chemo/XRT. 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 Check baseline CPK. Watch CPK closely while on Rosuvastatin and Daptomycin combination therapy as increase risk for myopathy Continue wound care Could potentially consider discharge soon with a short course of IV antibiotics through a peripheral IV with close follow-up. Aman Walls MD saw and examined patient, verified hx and PE, read all radiographic studies, reviewed labs and micro data, and formulated dx, plan for treatment and all medical decision making. Janes Culp PA-C for Aman Walls MD I (Dr. Walls) independently obtained history, performed a physical exam, and formulated the above assessment and plan. I reviewed the patient's labs, micro, radiographs, and medications today. I edited the above note to reflect my findings. I discussed in length with the patient and her husbandtoday. Aman Walls MD 07/20/2023 17:23 EDT documented in this encounter Nursing Notes * Kayce Danielle RN - 07/22/2023 4:46 AM EDT Goal Outcome Evaluation: Plan of Care Reviewed With: patient Progress: improving Outcome Evaluation: VSS. 48 year old white female admitted on 07/01/2023 cellulitis of the left axillary and breast area. She has an IV in place and patent to saline lock, redressing IV site for securement purposes. Patient is up ad ashley. She has had adequate amount of UOP noted. Have administered scheduled and prn medication as indicated. Will continue to monitor patient throughout the rest of this shift. * Susannah Irene RN - 07/20/2023 3:52 PM EDT Goal Outcome Evaluation: Plan of Care Reviewed With: patient Progress: no change Outcome Evaluation: Patient A&O x4, has ran a low grade temp throughout the day (99.6 the highest) C/O pain in left breast/lymph area,Breast/lymph area remains red, edematous, left arm elevated on pillows. PRN medication given and has been effective. Potassium has been replaced, ID consulted and new IV antibiotics ordered, Patient also postive for MRSA/PCR. C/O nasuea earlier this shift, PRN Z ofran effective. * Yadira Chery RN - 07/20/2023 6:32 AM EDT Goal Outcome Evaluation: PROGRESSING documented in this encounter ED Notes * Aislinn Chavis PA-C - 07/20/2023 12:34 AM EDT Subjective History of Present Illness This is a pleasant 48-year-old female that presents the ER for concern for infection to the left chest wall. Patient has history of left-sided breast cancer, estrogen receptor positive with bilateralmastectomy per Dr. SPARKS, general surgeon and subsequent chemo/radiation. Patient was having therapy for lymphedema to the left upper extremity and her therapist noticed a pea-sized nodule to the left chest wall. She followed up quickly with Dr. SPARKS and he performed biopsy on 07/13/2023. Impression of pathology report showed fibrosis and scarring with associated significant inflammation and rare atypical cells favored to represent dermal appendages with reactive atypia. Patient noticed yesterday that she was having some confluent erythema around the incision with increased pain with movement of the left upper extremity and trunk. She said that redness has progressed and she now describes malaise, fatigue, and chills as well as some body aches. Patient denies any shortness of breath. She denies any lower extremity pedal edema. She denies any dysuria, urgency, or frequency. She denies rhinorrhea, nasal congestion, or cough. She denies previous history of MRSA skin infection or history of diabetes mellitus. Past medical history is consistent with GERD, hypothyroidism, left-sided breast cancer with subsequent bilateral mastectomy, lymphedema, history of radiation and chemotherapy, hypertension, anxiety, migraines and history of Javed's thyroiditis. History provided by: Patient Wound Infection Location: Redness, warmth, pain after recent left chest wall deep tissue biopsy from pea-sized lesion 6 days ago. Duration: 2 days Timing: Constant Chronicity: New Context: History of left sided breast CA with bilateral mastectomy per Dr. SPARKS in 06/2022. Pt followswith Dr. Crenshaw. She did chemo/radiation. Recently, pt had pea-sized nodule to left chest wall withlymphedema therapy. Biopsy 6 days ago. Associated symptoms: fatigue and myalgias Associated symptoms: no abdominal pain, no chest pain, no congestion, no cough, no diarrhea, no fever, no headaches, no nausea, no rhinorrhea, no shortness of breath and no vomiting Risk factors: No h/o MRSA skin infection. No h/o DM. Review of Systems Constitutional: Positive for activity change, chills and fatigue. Negative for appetite change and fever. HENT: Negative. Negative for congestion and rhinorrhea. Respiratory: Negative. Negative for cough, choking and shortness of breath. Cardiovascular: Negative. Negative for chest pain, palpitations and leg swelling. Treadmill stress test yesterday, which was normal. Dr. Woodard. Gastrointestinal: Negative. Negative for abdominal pain, diarrhea, nausea and vomiting. Genitourinary: Negative. Negative for dysuria, flank pain, frequency and urgency. History of left breast CA with bilateral mastectomy in 06/[address] SPARKS. Recent biopsy to left chest wall 6 days ago. Musculoskeletal: Positive for myalgias. Negative for arthralgias and back pain. Skin: Positive for color change (confluent erythema to left chest wall around recent incision from biopsy 6 days ago.) and wound (surgical incision to left chest wall after recent biopsy of pea-sizedlesion. No wound dehiscience.). Neurological: Negative. Negative for dizziness, syncope, light-headedness and headaches. All other systems reviewed and are negative. 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 Headache History of radiation therapy 11/29/2022 Left chest wall/regional LNs Hx of radiation therapy 11/2022 Hypertension Hypothyroidism Lymphedema left arm post mastectomy Malignant neoplasm of left breast in female, estrogen receptor positive 05/24/2022 Migraines PONV (postoperative nausea and vomiting) Wears contact lenses Wears glasses Wears glasses Allergies Allergen Reactions Chlorhexidine Gluconate Rash Past Surgical History: Procedure Laterality Date BREAST BIOPSY Left 11/2016 lt stereo bx CARPAL TUNNEL RELEASE Right SECTION x 2 COLONOSCOPY 04/20/2017 hemorrhoids D & C HYSTEROSCOPY ENDOMETRIAL ABLATION 10/21/2013 ENDOSCOPY 03/2016 Normal LAPAROSCOPIC CHOLECYSTECTOMY MASTECTOMY Bilateral 06/2022 MASTECTOMY WITH SENTINEL NODE BIOPSY AND AXILLARY NODE DISSECTION N/A 06/13/2022 Procedure: BREAST MASTECTOMY LEFT, AXILLARY NODE DISSECTION LEFT, PROPHYLATIC RIGHT MASTECTOMY; Surgeon: An Bell MD; Location: [facility]; Service: General; Laterality: N/A; TONSILLECTOMY TOTAL LAPAROSCOPIC HYSTERECTOMY N/A 03/15/2023 Procedure: TOTAL LAPAROSCOPIC HYSTERECTOMY BILATERAL SALPINGOOPHORECTOMY WITH DAVINCI ROBOT; Surgeon: Erika Awad MD; Location: [facility]; Service: Robotics - DaVinci; Laterality: N/A; VENOUS ACCESS DEVICE (PORT) INSERTION Right 07/07/2022 VENOUS ACCESS DEVICE (PORT) REMOVAL Family History Problem Relation Age of Onset Diabetes Mother Hypertension Mother Diabetes Father Hypertension Father Diabetes Maternal Grandmother Heart disease Maternal Grandfather Breast cancer Neg Hx Ovarian cancer Neg Hx Endometrial cancer Neg Hx Uterine cancer Neg Hx Colon cancer Neg Hx Social History Socioeconomic History Marital status: Tobacco Use Smoking status: Never Smokeless tobacco: Never Vaping Use Vaping Use: Never used Substance and Sexual Activity Alcohol use: Never Drug use: Never Sexual activity: Defer Comment: vasectomy Objective Physical Exam Vitals and nursing note reviewed. Constitutional: General: She is not in acute distress. Appearance: Normal appearance. She is not ill-appearing, toxic-appearing or diaphoretic. Comments: No acute sign of pain or distress. Nontoxic. HENT: Head: Normocephalic and atraumatic. Nose: Nose normal. Mouth/Throat: Mouth: Mucous membranes are moist. Pharynx: Oropharynx is clear. Eyes: Extraocular Movements: Extraocular movements intact. Conjunctiva/sclera: Conjunctivae normal. Pupils: Pupils are equal, round, and reactive to light. Cardiovascular: Rate and Rhythm: Normal rate and regular rhythm. No extrasystoles are present. Pulses: Normal pulses. Heart sounds: Normal heart sounds. Comments: Regular rate and rhythm. No ectopy. No pedal edema to lower extremities Pulmonary: Effort: Pulmonary effort is normal. No tachypnea or retractions. Breath sounds: Normal breath sounds. No decreased breath sounds, wheezing, rhonchi or rales. Comments: Lungs are clear to auscultation bilaterally Chest: Chest wall: Swelling and tenderness present. Breasts: Left: Skin change present. Comments: Patient has horizontal incision to the left chest wall from recent biopsy of nodule on 07/13/2023. There is no wound dehiscence from suture site and no purulent drainage. There is confluenterythema with some mild soft tissue swelling around the area of incision. No induration or fluctuance. No left axillary lymphadenopathy. Abdominal: General: Bowel sounds are normal. There is no distension. Palpations: Abdomen is soft. Tenderness: There is no abdominal tenderness. There is no right CVA tenderness, left CVA tenderness, guarding or rebound. Comments: Abdomen soft and nontender. No flank or CVA tenderness. Musculoskeletal: General: Normal range of motion. Cervical back: Normal range of motion and neck supple. Right lower leg: No edema. Left lower leg: No edema. Lymphadenopathy: Upper Body: Left upper body: No axillary adenopathy. Skin: General: Skin is warm and dry. Findings: Erythema present. Comments: See chest wall exam for details on recent incision with concern for developing cellulitisto the left chest wall. Neurological: General: No focal deficit present. Mental Status: She is alert. Procedures ED Course ED Course as of 07/20/23314Jul 20, 2023256 I personally reviewed EKG and it shows sinus rhythm. No evidence of ectopy, arrhythmia, or ischemia. Chemistries showed potassium of 3.0 but otherwise chemistries were within normal limits. High-sensitivity troponin was 10. Lactic acid and procalcitonin were normal. I ordered magnesium level to be checked. Blood cultures x2 sets are in process. CT of the chest with contrast reveals postsurgical changes seen related to previous left mastectomy. Soft tissue thickening seen along the left chest wall with stranding and diffuse skin thickening which appears more pronounced as compared to previous study likely related to cellulitis. No focal collection identified though there is small patchyarea of hypodensity seen within the posterior aspect of the left mastectomy changes with no peripheral enhancement likely related to phlegmon and possible early developing abscess. No evidence of metastatic disease and no acute cardiopulmonary process. Discussed the case with Dr. Copeland, [facility] physician. He recommended initiating vancomycin and Rocephin. I also ordered KCl 40 mEq by mouth x1 dose. Patient is on telmisartan with HCTZ. I will page hospitalist, Dr. Dixon, to discuss admission. [FC] [address] Dixon and he is agreeable with admission on telemetry. [FC] ED Course User Index [FC] Aislinn Chavis PA-C Recent Results (from the past 24 hour(s)) Comprehensive Metabolic Panel Collection Time: 07/20/23 1:04 AM Specimen: Arm, Right; Blood Result Value Ref Range Glucose 170 (H) 65 - 99 mg/dL BUN 19 6 - 20 mg/dL Creatinine 0.82 0.57 - 1.00 mg/dL Sodium 139 136 - 145 mmol/L Potassium 3.0 (L) 3.5 - 5.2 mmol/L Chloride 102 98 - 107 mmol/L CO2 27.0 22.0 - 29.0 mmol/L Calcium 9.1 8.6 - 10.5 mg/dL Total Protein 6.7 6.0 - 8.5 g/dL Albumin 4.0 3.5 - 5.2 g/dL ALT (SGPT) 8 1 - 33 U/L AST (SGOT) 14 1 - 32 U/L Alkaline Phosphatase 74 39 - 117 U/L Total Bilirubin 0.3 0.0 - 1.2 mg/dL Globulin 2.7 gm/dL A/G Ratio 1.5 g/dL BUN/Creatinine Ratio 23.2 7.0 - 25.0 Anion Gap 10.0 5.0 - 15.0 mmol/L eGFR 87.8 >60.0 mL/min/1.73 Single High Sensitivity Troponin T Collection Time: 07/20/23 1:04 AM Specimen: Arm, Right; Blood Result Value Ref Range HS Troponin T 10 (H) <10 ng/L Lactic Acid, Plasma Collection Time: 07/20/23 1:04 AM Specimen: Arm, Right; Blood Result Value Ref Range Lactate 1.1 0.5 - 2.0 mmol/L Procalcitonin Collection Time: 07/20/23 1:04 AM Specimen: Arm, Right; Blood Result Value Ref Range Procalcitonin 0.05 0.00 - 0.25 ng/mL CBC Auto Differential Collection Time: 07/20/23 1:04 AM Specimen: Arm, Right; Blood Result Value Ref Range WBC 7.45 3.40 - 10.80 10*3/mm3 RBC 3.87 3.77 - 5.28 10*6/mm3 Hemoglobin 12.0 12.0 - 15.9 g/dL Hematocrit 35.9 34.0 - 46.6 % MCV 92.8 79.0 - 97.0 fL MCH 31.0 26.6 - 33.0 pg MCHC 33.4 31.5 - 35.7 g/dL RDW 13.2 12.3 - 15.4 % RDW-SD 45.0 37.0 - 54.0 fl MPV 10.4 6.0 - 12.0 fL Platelets 209 140 - 450 10*3/mm3 Neutrophil % 60.8 42.7 - 76.0 % Lymphocyte % 26.3 19.6 - 45.3 % Monocyte % 9.9 5.0 - 12.0 % Eosinophil % 2.6 0.3 - 6.2 % Basophil % 0.1 0.0 - 1.5 % Immature Grans % 0.3 0.0 - 0.5 % Neutrophils, Absolute 4.53 1.70 - 7.00 10*3/mm3 Lymphocytes, Absolute 1.96 0.70 - 3.10 10*3/mm3 Monocytes, Absolute 0.74 0.10 - 0.90 10*3/mm3 Eosinophils, Absolute 0.19 0.00 - 0.40 10*3/mm3 Basophils, Absolute 0.01 0.00 - 0.20 10*3/mm3 Immature Grans, Absolute 0.02 0.00 - 0.05 10*3/mm3 nRBC 0.0 0.0 - 0.2 /100 WBC ECG 12 Lead Chest Pain Collection Time: 07/20/23 1:08 AM Result Value Ref Range QT Interval 388 ms QTC Interval 439 ms Note: In addition to lab results from this visit, the labs listed above may include labs taken at another facility or during a different encounter within the last 24 hours. Please correlate lab timeswith ED admission and discharge times for further clarification of the services performed during this visit. CT Chest With Contrast Diagnostic Final Result Impression: 1.Postsurgical changes are seen related to previous left mastectomy. Soft tissue thickening is seenalong the left chest wall with stranding and diffuse skin thickening which appears more pronounced as compared to the previous study likely related to cellulitis. No focal collection identified though there is a small patchy area of hypodensity seen within the posterior aspect of the left mastectomy changes with no peripheral enhancement likely related to phlegmon and possible early developing abscess, new as compared to the previous study. No evidence of metastatic disease. No acute cardiopulmonary process. 2.Ancillary findings as described above. Electronically Signed: Nanette Ashford MD 07/20/2023 2:37 AM EDT Workstation ID: [id number] Vitals: 07/19/23 2323 BP: 125/69 BP Location: Right arm Patient Position: Sitting Pulse: 95 Resp: 18 Temp: 98.2 ??F (36.8 ??C) TempSrc: Oral SpO2: 99% Weight: 89.8 kg (198 lb) Height: 157.5 cm (62 ) Medications sodium chloride 0.9 % flush 10 mL (has no administration in time range) vancomycin 1750 mg/500 mL 0.9% NS IVPB ([facility]) (has no administration in time range) cefTRIAXone (ROCEPHIN) 2000 mg/100 mL 0.9% NS IVPB (MBP) (has no administration in time range) Potassium Replacement - Follow Nurse / BPA Driven Protocol (has no administration in time range) potassium chloride (K-DUR,KLOR-CON) CR tablet 40 mEq (0 mEq Oral Hold 07/20/23 0307) simethicone (MYLICON) chewable tablet 80 mg (has no administration in time range) HYDROmorphone (DILAUDID) injection 0.5 mg (has no administration in time range) morphine injection 2 mg (2 mg Intravenous Given 07/20/23 0207) ondansetron (ZOFRAN) injection 4 mg (4 mg Intravenous Given 07/20/23 0208) iopamidol (ISOVUE-300) 61 % injection 100 mL (85 mL Intravenous Given 07/20/23 0228) ondansetron (ZOFRAN) injection 4 mg (4 mg Intravenous Given 07/20/23 0256) ECG/EMG Results (last 24 hours) No results found for the last 24 hours. ECG 12 Lead Chest Pain Preliminary Result Test Reason : Chest Pain Blood Pressure : */* mmHG Vent. Rate : 77 BPM Atrial Rate : 77 BPM P-R Int : 154 ms QRS Dur : 76 ms QT Int : 388 ms P-R-T Axes : 25 -3 5 degrees QTc Int : 439 ms Normal sinus rhythm Minimal voltage criteria for LVH, may be normal variant Borderline ECG When compared with ECG of 07-MAR-2023 13:14, No significant change was found Referred By: EDMD Confirmed By: Medical Decision Making Amount and/or Complexity of Data Reviewed Labs: ordered. Radiology: ordered. ECG/medicine tests: ordered. Risk OTC drugs. Prescription drug management. Final diagnoses: Cellulitis of chest wall History of biopsy History of left breast cancer History of bilateral mastectomy Lymphedema of arm Chills (without fever) Malaise and fatigue Generalized body aches History of hypertension History of hypothyroidism ED Disposition ED Disposition ED Disposition Decision to Admit Condition -- Comment Level of Care: Telemetry [5] Diagnosis: Cellulitis [401491] Admitting Physician: DAISY DIXON [[id number]] Attending Physician: DAISY DIXON [[id number]] Certification: I Certify That Inpatient Hospital Services Are Medically Necessary For Greater Than 2 Midnights No follow-up provider specified. Medication List No changes were made to your prescriptions during this visit. Aislinn Chavis PA-C 07/20/23 0315 Cosigned by Silvio Copeland MD at 07/20/2023 5:52 AM EDT Associated attestation - Silvio Copeland MD - 07/20/2023 5:52 AM EDT NON FACE TO FACE: This visit was performed by BOTH a physician and an APC. I performed all aspects of the MDM as documented. Silvio Copeland MD 07/20/2023 05:52 EDT documented in this encounter Miscellaneous Notes * Case Management/Social Work - Torri Vasquez RN - 07/20/2023 3:28 PM EDT Images from the original note were not included. Discharge Planning Assessment Morgan Patient Name: Leydi Brown Today's Date: 07/20/2023 Admit Date: 07/19/2023 Plan: Home Discharge Needs Assessment Row Name 07/20/23 1509 Living Environment People in Home spouse Name(s) of People in Home Titi Brown (spouse) [phone] Current Living Arrangements home Primary Care Provided by self Provides Primary Care For no one Family Caregiver if Needed spouse Family Caregiver Names Titi Brown (spouse) [phone] Quality of Family Relationships involved;supportive;helpful Able to Return to Prior Arrangements yes Transition Planning Patient/Family Anticipates Transition to home with family Transportation Anticipated family or friend will provide Discharge Needs Assessment Readmission Within the Last 30 Days no previous admission in last 30 days Equipment Currently Used at Home other (see comments) Compression sleeve for lymphedema Discharge Plan Row Name 07/20/23 1512 Plan Plan Home Patient/Family in Agreement with Plan yes Plan Comments Spoke with patient at bedside. She lives in [facility] with her spouse, Titi. She verified she has [employer] insurance. She has prescription coverage and uses [facility] in [place], to get her scripts filled. Her PCP is Herbert Hair. Ms. Brown has no DME. She does have a compression sleeve she uses for the lymphedema in her arms. She is not current with home health. Prior to admission, she was independent with ADL's. Ms. Brown plan is to return home at discharge. CM will continue to follow. Final Discharge Disposition Code 30 - still a patient Continued Care and Services - Admitted Since 07/19/2023 Coordination has not been started for this encounter. Expected Discharge Date and Time Expected Discharge Date Expected Discharge Time Jul 23, 2023 Demographic Summary Row Name 07/20/23 1508 General Information Admission Type inpatient Arrived From emergency department Referral Source admission list Reason for Consult discharge planning Preferred Language Swazi Contact Information Permission Granted to Share Info With case supervisormanager company Information Obtained for case supervisoremail operations manager Status Row Name 07/20/23 1509 Functional Status Usual Activity Tolerance moderate Current Activity Tolerance moderate Functional Status, IADL Medications independent Meal Preparation independent Housekeeping independent Laundry independent Shopping independent Psychosocial No documentation. Abuse/Neglect No documentation. Legal No documentation. Substance Abuse No documentation. Patient Forms No documentation. Torri Vasquez RN documented in this encounter Plan of Treatment Upcoming Encounters Date Type Department Care Team ([facility] Contact Info) Description 09/18/2024 3:30 PM EST Office Visit [facility] HEMATOLOGY & ONCOLOGY [address] [facility] [address] [place] [address] Bre Crenshaw MD [address] [facility] [address] [place] [address] 12/31/2024 9:00 AM EDT Office Visit [facility] UROLOGY [address] [facility] [address] [place] [address] Oralia Saha APRN [address] [facility] [address] [place] [address] 05/12/2025 1:45 PM EDT Office Visit [facility] CARDIOLOGY [address] [facility] [address] [place] [id number] Obed Woodard MD [address] [facility] [address] [place], [place] [id number] documented as of this encounter Procedures Procedure Name Priority Date/Time Associated Diagnosis Comments CBC WITH AUTO DIFFERENTIAL Routine 07/22/2023 6:48 AM EDT CBC AND DIFFERENTIAL Routine 07/22/2023 6:48 AM EDT MAGNESIUM Routine 07/22/2023 6:48 AM EDT BASIC METABOLIC PANEL Routine 07/22/2023 6:48 AM EDT CBC WITH AUTO DIFFERENTIAL Routine 07/21/2023 5:03 AM EDT CBC AND DIFFERENTIAL Routine 07/21/2023 5:03 AM EDT MAGNESIUM Routine 07/21/2023 5:03 AM EDT BASIC METABOLIC PANEL Routine 07/21/2023 5:03 AM EDT POTASSIUM Timed 07/20/2023 4:39 PM EDT MRSA DNA PROBE Routine 07/20/2023 10:35 AM EDT XR ABDOMEN KUB Routine 07/20/2023 4:[address] CHEST W CONTRAST STAT 07/20/2023 2 :27 AM EDT BLOOD CULTURE STAT 07/20/2023 2:00 AM EDT ECG 12-LEAD STAT 07/20/2023 1:08 AM EDT SINGLE HS TROPONIN T STAT 07/20/2023 1:04 AM EDT PROCALCITONIN STAT 07/20/2023 1:04 AM EDT CBC WITH AUTO DIFFERENTIAL STAT 07/20/2023 1:04 AM EDT BLOOD CULTURE STAT 07/20/2023 1:04 AM EDT CBC AND DIFFERENTIAL STAT 07/20/2023 1:04 AM EDT MAGNESIUM STAT 07/20/2023 1:04 AM EDT LACTIC ACID, PLASMA STAT 07/20/2023 1 :04 AM EDT HEMOGLOBIN A1C Add-On 07/20/2023 1:04 AM EDT CK Add-On 07/20/2023 1:04 AM EDT COMPREHENSIVE METABOLIC PANEL STAT 07/20/2023 1:04 AM EDT documented in this encounter Results * CBC Auto Differential (07/22/2023 6:48 AM EDT) WBC 6.70 3.40 - 10.80 10*3/mm3 07/22/2023 7:15 AM EDT [facility] RBC 4.08 3.77 - 5.28 10*6/mm3 07/22/2023 7:15 AM EDT [facility] Hemoglobin 12.8 12.0 - 15.9 g/dL 07/22/2023 7:15 AM EDT [facility] Hematocrit 37.8 34.0 - 46.6 % 07/22/2023 7:15 AM EDT [facility] MCV 92.6 79.0 - 97.0 fL 07/22/2023 7:15 AM EDT [facility] MCH 31.4 26.6 - 33.0 pg 07/22/2023 7:[facility] MCHC 33.9 31.5 - 35.7 g/dL 07/22/2023 7:15 [facility] RDW 13.1 12.3 - 15.4 % 07/22/2023 7:15 [facility] RDW-SD 44.3 37.0 - 54.0 fl 07/22/2023 7:15 [facility] MPV 10.4 6.0 - 12.0 fL 07/22/2023 7:15 [facility] Platelets 207 140 - 450 10*3/mm3 07/22/2023 7:15 [facility] Neutrophil % 62.9 42.7 - 76.0 % 07/22/2023 7:15 [facility] Lymphocyte % 22.7 19.6 - 45.3 % 07/22/2023 7:15 AM EDT [facility] Monocyte % 10.9 5.0 - 12.0 % 07/22/2023 7:15 AM EDT [facility] Eosinophil % 2.8 0.3 - 6.2 % 07/22/2023 7:15 [facility] Basophil % 0.3 0.0 - 1.5 % 07/22/2023 7:15 AM EDT [facility] Immature Grans % 0.4 0.0 - 0.5 % 07/22/2023 7:15 AM EDT [facility] Neutrophils, Absolute 4.21 1.70 - 7.00 10*3/mm3 07/22/2023 7:15 AM EDT [facility] Lymphocytes, Absolute 1.52 0.70 - 3.10 10*3/mm3 07/22/2023 7:15 AM EDT [facility] Monocytes, Absolute 0.73 0.10 - 0.90 10*3/mm3 07/22/2023 7:15 AM EDT [facility] Eosinophils, Absolute 0.19 0.00 - 0.40 10*3/mm3 07/22/2023 7:15 AM EDT [facility] Basophils, Absolute 0.02 0.00 - 0.20 10*3/mm3 07/22/2023 7:15 AM EDT [facility] Immature Grans, Absolute 0.03 0.00 - 0.05 10*3/mm3 07/22/2023 7:15 AM EDT [facility] nRBC 0.0 0.0 - 0.2 /100 WBC 07/22/2023 7:15 AM EDT [facility] Blood Venipuncture / Unknown 07/22/2023 6:48 AM EDT 07/22/2023 7:09 AM EDT Daisy Dixon MD LAB BLOOD ORDERABLES Final Re sult [facility]
[address] [place] [address], * Magnesium (07/22/2023 6:48 AM EDT) Magnesium 1.9 1.6 - 2.6 mg/dL 07/22/2023 7:34 AM EDT [facility] Blood Venipuncture / Unknown 07/22/2023 6:48 AM EDT 07/22/2023 7:09 AM EDT us Daisy Dixon MD LAB BLOOD ORDERABLES Final Re sult [facility]
[address] [place] [address], * (ABNORMAL) Basic Metabolic Panel (07/22/2023 6:48 AM EDT) Glucose 131(H) 65 - 99 mg/dL 07/22/2023 7:34 AM EDT [facility] BUN 16 6 - 20 mg/dL 07/22/2023 7:34 AM EDT [facility] Creatinine 0.77 0.57 - 1.00 mg/dL 07/22/2023 7:34 AM EDT [facility] Sodium 133(L) 136 - 145 mmol/L 07/22/2023 7:34 AM EDT [facility] Potassium 4.3 3.5 - 5.2 mmol/L 07/22/2023 7:34 AM EDT [facility] Chloride 96(L) 98 - 107 mmol/L 07/22/2023 7:34 AM EDT [facility] CO2 27.0 22.0 - 29.0 mmol/L 07/22/2023 7:34 AM EDT [facility] Calcium 9.8 8.6 - 10.5 mg/dL 07/22/2023 7:34 AM EDT [facility] BUN/Creatinine Ratio 20.8 7.0 - 25.0 07/22/2023 7:34 AM EDT [facility] Anion Gap 10.0 5.0 - 15.0 mmol/L 07/22/2023 7:34 AM EDT [facility] eGFR 94.7 >60.0 mL/min/1.7 3 07/22/2023 7:34 AM EDT [facility] Blood Venipuncture / Unknown 07/22/2023 6:48 AM EDT 07/22/2023 7:09 AM EDT Narrative [facility] - 07/22/2023 7:34 AM EDT GFR Normal >60 Chronic Kidney Disease <60 Kidney Failure <15 Saul Sanabria [facility] LAB BLOOD ORDERABLES Final Res ult [facility]
[address] [place] [address], * CBC Auto Differential (07/21/2023 5:03 AM EDT) [facility] WBC 7.28 3.40 - 10.80 10*3/mm3 07/21/2023 5:45 AM EDT [facility] RBC 3.80 3.77 - 5.28 10*6/mm3 07/21/2023 5:45 AM EDT [facility] Hemoglobin 12.0 12.0 - 15.9 g/dL 07/21/2023 5:45 AM EDT [facility] Hematocrit 36.1 34.0 - 46.6 % 07/21/2023 5:45 AM EDT [facility] MCV 95.0 79.0 - 97.0 fL 07/21/2023 5:45 AM EDT [facility] MCH 31.6 26.6 - 33.0 pg 07/21/2023 5:45 AM EDT [facility] MCHC 33.2 31.5 - 35.7 g/dL 07/21/2023 5:45 AM EDT [facility] RDW 13.4 12.3 - 15.4 % 07/21/2023 5:45 AM EDT [facility] RDW-SD 46.4 37.0 - 54.0 fl 07/21/2023 5:45 AM EDT [facility] MPV 10.2 6.0 - 12.0 fL 07/21/2023 5:45 AM EDT [facility] Platelets 186 140 - 450 10*3/mm3 07/21/2023 5:45 AM EDT [facility] Neutrophil % 62.3 42.7 - 76.0 % 07/21/2023 5:45 AM EDT [facility] Lymphocyte % 24.9 19.6 - 45.3 % 07/21/2023 5:45 AM EDT [facility] Monocyte % 10.3 5.0 - 12.0 % 07/21/2023 5:45 AM EDT [facility] Eosinophil % 1.9 0.3 - 6.2 % 07/21/2023 5:45 AM EDT [facility] Basophil % 0.3 0.0 - 1.5 % 07/21/2023 5:45 AM EDT [facility] Immature Grans % 0.3 0.0 - 0.5 % 07/21/2023 5:45 AM EDT [facility] Neutrophils, Absolute 4.54 1.70 - 7.00 10*3/mm3 07/21/2023 5:45 AM EDT [facility] Lymphocytes, Absolute 1.81 0.70 - 3.10 10*3/mm3 07/21/2023 5:45 AM EDT [facility] Monocytes, Absolute 0.75 0.10 - 0.90 10*3/mm3 07/21/2023 5:45 AM EDT [facility] Eosinophils, Absolute 0.14 0.00 - 0.40 10*3/mm3 07/21/2023 5:45 AM EDT [facility] Basophils, Absolute 0.02 0.00 - 0.20 10*3/mm3 07/21/2023 5:45 AM EDT [facility] Immature Grans, Absolute 0.02 0.00 - 0.05 10*3/mm3 07/21/2023 5:45 AM EDT [facility] nRBC 0.0 0.0 - 0.2 /100 WBC 07/21/2023 5:45 AM EDT [facility] Blood Venipuncture / Unknown 07/21/2023 5:03 AM EDT 07/21/2023 5:31 AM EDT Daisy Dixon MD LAB BLOOD ORDERABLES Final Re sult Performing Organization Address City/[facility]/ZIP Co de Phone Number [facility]
[address] [place] [address], * Magnesium (07/21/2023 5:03 AM EDT) Magnesium 1.9 1.6 - 2.6 mg/dL 07/21/2023 7:02 AM EDT [facility] Blood Venipuncture / Unknown 07/21/2023 5:03 AM EDT 07/21/2023 5:32 AM EDT Daisy Dixon MD LAB BLOOD ORDERABLES Final Re sult Performing Organization Address [facility] Co de Phone Number [facility]
[address] [place] [address], * (ABNORMAL) Basic Metabolic Panel (07/21/2023 5:03 AM EDT) Glucose 141(H) 65 - 99 mg/dL 07/21/2023 7:02 AM EDT [facility] BUN 11 6 - 20 mg/dL 07/21/2023 7:02 AM EDT [facility] Creatinine 0.74 0.57 - 1.00 mg/dL 07/21/2023 7:02 AM EDT [facility] Sodium 134(L) 136 - 145 mmol/L 07/21/2023 7:02 AM EDT [facility] Potassium 4.0 3.5 - 5.2 mmol/L 07/21/2023 7:02 AM EDT [facility] Chloride 99 98 - 107 mmol/L 07/21/2023 7:02 AM EDT [facility] CO2 23.0 22.0 - 29.0 mmol/L 07/21/2023 7:02 AM EDT [facility] Calcium 9.5 8.6 - 10.5 mg/dL 07/21/2023 7:02 AM EDT [facility] BUN/Creatinine Ratio 14.9 7.0 - 25.0 07/21/2023 7:02 AM EDT [facility] Anion Gap 12.0 5.0 - 15.0 mmol/L 07/21/2023 7:02 AM EDT [facility] eGFR 99.3 >60.0 mL/min/1.7 3 07/21/2023 7:02 AM EDT [facility] Blood Venipuncture / Unknown 07/21/2023 5:03 AM EDT 07/21/2023 5:32 AM EDT Narrative [facility] - 07/21/2023 7:02 AM EDT GFR Normal >60 Chronic Kidney Disease <60 Kidney Failure <15 Saul Sanabria [facility] LAB BLOOD ORDERABLES Final Res ult Performing Organization Address City/[facility]/ZIP Co de Phone Number [facility]
[address] [place] [address], * Potassium (07/20/2023 4:39 PM EDT) Pathologist [facility] Potassium 4.1 3.5 - 5.2 mmol/L 07/20/2023 5:28 PM EDT [facility] Blood Venipuncture / Unknown 07/20/2023 4:39 PM EDT 07/20/2023 5:02 PM EDT Silvio Copeland MD LAB BLOOD ORDERABLES Final Result [facility]
[address] [place] [address], * (ABNORMAL) MRSA Screen, PCR (Inpatient) - Swab, Nares (07/20/2023 10:35 AM EDT) Pathologist [facility] MRSA PCR Positive(A ) Negative CEPHEID [employer]EXPERT 07/20/2023 11:59 AM EDT [facility] Swab Structure of anterior naris / Unknown Collection / Unknown 07/20/2023 10:35 AM EDT 07/20/2023 10:52 AM EDT Narrative [facility] - 07/20/2023 11:59 AM EDT The negative predictive value of this diagnostic test is high and should only be used to consider de-escalating anti-MRSA therapy. A positive result may indicate colonization with MRSA and must be correlated clinically. Daisy Dixon MD MICROBIOLOGY - GENERAL ORDERA BLES Final Result [facility]
[address] [place] [address], * XR Abdomen KUB (07/20/2023 4:15 AM EDT) Anatomical Region Laterality Modality Body, Abdomen N/A Radiographic Nubia ging 07/20/2023 7:30 AM EDT Impressions 07/20/2023 7:32 AM EDT Impression: Mild fecal stasis compatible with constipation. Electronically Signed: Candis Flynn MD 07/20/2023 6:32 AM CDT Workstation ID: [id number] Narrative 07/20/2023 7:32 AM EDT XR ABDOMEN KUB Date of Exam: 07/20/2023 3:14 AM CDT Indication: Abdominal pain, bloating Comparison: CT abdomen and pelvis 07/05/2023 Findings: No gross free air or pneumatosis though evaluation is slightly limited due to technique. There is contrast material within the renal collecting systems bilaterally and urinary bladder. There is a non obstructive bowel gas pattern. A mild stool burden is present. ??No suspicious calcifications identified. No acute osseous abnormality identified. Surgical clips overlie the right upper quadrant. Procedure Note Candis Flynn MD - 07/20/2023 XR ABDOMEN KUB Date of Exam: 07/20/2023 3:14 AM CDT Indication: Abdominal pain, bloating Comparison: CT abdomen and pelvis 07/05/2023 Findings: No gross free air or pneumatosis though evaluation is slightly limited dueto technique. There is contrast material within the renal collectingsystems bilaterally and urinary bladder. There is a non obstructive bowelgas pattern. A mild stool burden is present. No suspicious calcifications identified. No acute osseousabnormality identified. Surgical clips overlie the right upper quadrant. IMPRESSION: Impression: Mild fecal stasis compatible with constipation. Electronically Signed: Candis Flynn MD 07/20/2023 6:32 AM CDT Workstation ID: [id number] Daisy Dixon MD IMG DIAGNOSTIC IMAGING ORDERA BLES Final Result * CT Chest With Contrast Diagnostic (07/20/2023 2:27 AM EDT) Anatomical Region Laterality Modality Chest N/A Computed Tomogra phy 07/20/2023 2:33 AM EDT Impressions 07/20/2023 2:37 AM EDT Impression: 1.Postsurgical changes are seen related to previous left mastectomy. Soft tissue thickening is seen along the left chest wall with stranding and diffuse skin thickening which appears more pronounced as compared to the previous study likely related to cellulitis. No focal collection identified though there is a small patchy area of hypodensity seen within the posterior aspect of the left mastectomy changes with no peripheral enhancement likely related to phlegmon and possible early developing abscess, new as compared to the previous study. No evidence of metastatic disease. No acute cardiopulmonary process. 2.Ancillary findings as described above. Electronically Signed: Nanette Ashford MD 07/20/2023 2:37 AM EDT Workstation ID: [id number] Narrative 07/20/2023 2:[address] CHEST W CONTRAST DIAGNOSTIC Date of Exam: 07/20/2023 2:21 AM EDT Indication: recent biopsy left chest wall, h/o breast CA. Increased redness, warmth, r/o deep space infection.. Comparison: 07/05/2023. Technique: Axial CT images were obtained of the chest after the uneventful intravenous administration of intravenous contrast. ??Reconstructed coronal and sagittal images were also obtained. Automated exposure control and iterative construction methods were used. Findings: Hilum and Mediastinum: No pathologically enlarged lymph nodes. ??Normal heart size. ?? No pericardial effusion. ??Unremarkable thoracic aorta and pulmonary arteries. Lung Parenchyma and Pleura: No focal consolidations. Azygous lobe present. No suspicious pulmonary nodules. ??No endobronchial lesions. ??No significant pleural effusions. Upper Abdomen: No acute process. Soft tissues: Postsurgical changes are seen related to previous left mastectomy. Soft tissue thickening is seen along the left chest wall with stranding and diffuse skin thickening which appears more pronounced as compared to the previous study.. No focal collection identified. Patchy stranding and hypodensity seen within the posterior left breast region measuring approximate 1.7 x 2.2 cm (series 3 image 64) with no evidence of peripheral enhancement. No evidence of axillary adenopathy identified. Remaining subcutaneous tissues appear unremarkable.. Osseous structures: No aggressive focal lytic or sclerotic osseous lesions. No destructive changes identified. No suspicious osseous lesions. Mild degenerative changes are present. Procedure Note Nanette Ashford MD - 07/20/2023 CT CHEST W CONTRAST DIAGNOSTIC Date of Exam: 07/20/2023 2:21 AM EDT Indication: recent biopsy left chest wall, h/o breast CA. Increasedredness, warmth, r/o deep space infection.. Comparison: 07/05/2023. Technique: Axial CT images were obtained of the chest after the uneventfulintravenous administration of intravenous contrast. Reconstructed coronaland sagittal images were also obtained. Automated exposure control anditerative construction methods were used. Findings: Hilum and Mediastinum: No pathologically enlarged lymph nodes. Normalheart size. No pericardial effusion. Unremarkable thoracic aorta andpulmonary arteries. Lung Parenchyma and Pleura: No focal consolidations. Azygous lobe present.No suspicious pulmonary nodules. No endobronchial lesions. Nosignificant pleural effusions. Upper Abdomen: No acute process. Soft tissues: Postsurgical changes are seen related to previous leftmastectomy. Soft tissue thickening is seen along the left chest wall withstranding and diffuse skin thickening which appears more pronounced ascompared to the previous study.. No focal collection identified. Patchy stranding and hypodensity seen withinthe posterior left breast region measuring approximate 1.7 x 2.2 cm(series 3 image 64) with no evidence of peripheral enhancement. Noevidence of axillary adenopathy identified. Remaining subcutaneous tissues appear unremarkable.. Osseous structures: No aggressive focal lytic or sclerotic osseouslesions. No destructive changes identified. No suspicious osseous lesions.Mild degenerative changes are present. IMPRESSION: Impression: 1.Postsurgical changes are seen related to previous left mastectomy. Softtissue thickening is seen along the left chest wall with stranding anddiffuse skin thickening which appears more pronounced as compared to theprevious study likely related to cellulitis. No focal collection identified though there is a small patchyarea of hypodensity seen within the posterior aspect of the leftmastectomy changes with no peripheral enhancement likely related tophlegmon and possible early developing abscess, new as compared to the previous study. No evidence of metastatic disease.No acute cardiopulmonary process. 2.Ancillary findings as described above. Electronically Signed: Nanette Ashford MD 07/20/2023 2:37 AM EDT Workstation ID: [id number] Aislinn Chavis PA-C IMG CT ORDERABLES Final Resul t * Blood Culture - Blood, Arm, Right (07/20/2023 2:00 AM EDT) Pathologist [facility] Blood Culture No growth at 5 days 07/25/2023 2:31 AM EDT [facility] Blood Structure of right upper limb / Unknown Venipuncture / Unknown 07/20/2023 2:00 AM EDT 07/20/2023 2:16 AM EDT Aislinn Chavis PA-C MICROBIOLOGY - GENERAL ORDERA BLES Final Result [facility]
[address] [place] [address], * ECG 12 Lead Chest Pain (07/20/2023 1:08 AM EDT) QT Interval 388 ms ECG QTC Interval 439 ms ECG 07/20/2023 1:08 AM EDT 07/24/2023 5:45 AM EDT Narrative ECG - 07/24/2023 5:45 AM EDT Test Reason : Chest Pain Blood Pressure : ?? */* ?? mmHG Vent. Rate : ??77 BPM ? Atrial Rate : ??77 BPM ?? P-R Int : 154 ms ?QRS Dur : ??76 ms ?QT Int : 388 ms ? P-R-T Axes : ??25 ??-3 ?? 5 degrees ?? QTc Int : 439 ms Normal sinus rhythm Minimal voltage criteria for LVH, may be normal variant Borderline ECG When compared with ECG of 07-MAR-2023 13:14, No significant change was found Confirmed by Silvio Copeland ([id number]) on 07/24/2023 5:45:12 AM Referred By: TIM ? Confirmed By: Silvio Copeland Procedure Note Silvio Copeland MD - 07/24/2023 Test Reason : Chest Pain Blood Pressure : */* mmHG Vent. Rate : 77 BPM Atrial Rate : 77 BPM P-R Int : 154 ms QRS Dur : 76 ms QT Int : 388 ms P-R-T Axes : 25 -3 5 degrees QTc Int : 439 ms Normal sinus rhythm Minimal voltage criteria for LVH, may be normal variant Borderline ECG When compared with ECG of 07-MAR-2023 13:14, No significant change was found Confirmed by Silvio Copeland ([id number]) on 07/24/2023 5:45:12 AM Referred By: TIM Confirmed By: Silvio Copeland Aislinn Chavis PA-C ECG ORDERABLES Final Result [facility] ECG * (ABNORMAL) Hemoglobin A1c (07/20/2023 1:04 AM EDT) Hemoglobin A1C 6.40(H) 4.80 - 5.60 % 07/20/2023 4:42 PM EDT [facility] Blood Structure of right upper limb / Unknown Venipuncture / Unknown 07/20/2023 1:04 AM EDT 07/20/2023 1:20 AM EDT [facility] - 07/20/2023 4:42 PM EDT Hemoglobin A1C Ranges: Increased Risk for Diabetes ??5.7% to 6.4% Diabetes ? >= 6.5% Diabetic Goal ?< 7.0% Cristino Camahco MD LAB BLOOD ORDERABLES Final Re sult Performing Organization Address [facility] de Phone Number [facility]
[address] [place] [address], * CK (07/20/2023 1:04 AM EDT) Creatine Kinase 58 20 - 180 U/L 07/20/2023 12:55 PM EDT [facility] Blood Structure of right upper limb / Unknown Venipuncture / Unknown 07/20/2023 1:04 AM EDT 07/20/2023 1:20 AM EDT Janes CATALAN LAB BLOOD ORDERABLES Final Resul t Performing Organization Address [facility] de Phone Number [facility]
[address] [place] [address], * Magnesium (07/20/2023 1:04 AM EDT) Magnesium 1.7 1.6 - 2.6 mg/dL 07/20/2023 3:29 AM EDT [facility] Blood Structure of right upper limb / Unknown Venipuncture / Unknown 07/20/2023 1:04 AM EDT 07/20/2023 1:20 AM EDT Aislinn Chavis PA-C LAB BLOOD ORDERABLES Final Re sult Performing Organization Address [facility] Co de Phone Number [facility]
[address] [place] [address], * CBC Auto Differential (07/20/2023 1:04 AM EDT) [facility] Signature WBC 7.45 3.40 - 10.80 10*3/mm3 07/20/2023 1:23 AM EDT [facility] RBC 3.87 3.77 - 5.28 10*6/mm3 07/20/2023 1:23 AM EDT [facility] Hemoglobin 12.0 12.0 - 15.9 g/dL 07/20/2023 1:23 AM EDT [facility] Hematocrit 35.9 34.0 - 46.6 % 07/20/2023 1:23 AM EDT [facility] MCV 92.8 79.0 - 97.0 fL 07/20/2023 1:23 AM EDT [facility] MCH 31.0 26.6 - 33.0 pg 07/20/2023 1:23 AM EDT [facility] MCHC 33.4 31.5 - 35.7 g/dL 07/20/2023 1:23 AM EDT [facility] RDW 13.2 12.3 - 15.4 % 07/20/2023 1:23 AM EDT [facility] RDW-SD 45.0 37.0 - 54.0 fl 07/20/2023 1:23 AM EDT [facility] MPV 10.4 6.0 - 12.0 fL 07/20/2023 1:23 AM EDT [facility] Platelets 209 140 - 450 10*3/mm3 07/20/2023 1:23 AM EDT [facility] Neutrophil % 60.8 42.7 - 76.0 % 07/20/2023 1:23 AM EDT [facility] Lymphocyte % 26.3 19.6 - 45.3 % 07/20/2023 1:23 AM EDT [facility] Monocyte % 9.9 5.0 - 12.0 % 07/20/2023 1:23 AM EDT [facility] Eosinophil % 2.6 0.3 - 6.2 % 07/20/2023 1:23 AM EDT [facility] Basophil % 0.1 0.0 - 1.5 % 07/20/2023 1:23 AM EDT [facility] Immature Grans % 0.3 0.0 - 0.5 % 07/20/2023 1:23 AM EDT [facility] Neutrophils, Absolute 4.53 1.70 - 7.00 10*3/mm3 07/20/2023 1:23 AM EDT [facility] Lymphocytes, Absolute 1.96 0.70 - 3.10 10*3/mm3 07/20/2023 1:23 AM EDT [facility] Monocytes, Absolute 0.74 0.10 - 0.90 10*3/mm3 07/20/2023 1:23 AM EDT [facility] Eosinophils, Absolute 0.19 0.00 - 0.40 10*3/mm3 07/20/2023 1:23 AM EDT [facility] Basophils, Absolute 0.01 0.00 - 0.20 10*3/mm3 07/20/2023 1:23 AM EDT [facility] Immature Grans, Absolute 0.02 0.00 - 0.05 10*3/mm3 07/20/2023 1:23 AM EDT [facility] nRBC 0.0 0.0 - 0.2 /100 WBC 07/20/2023 1:23 AM EDT [facility] Blood Structure of right upper limb / Unknown Venipuncture / Unknown 07/20/2023 1:04 AM EDT 07/20/2023 1:20 AM EDT us Aislinn Chavis PA-C LAB BLOOD ORDERABLES Final Re sult [facility]
[address] [place] [address], * Blood Culture - Blood, Arm, Right (07/20/2023 1:04 AM EDT) Blood Culture No growth at 5 days 07/25/2023 1:30 AM EDT [facility] Blood Structure of right upper limb / Unknown Venipuncture / Unknown 07/20/2023 1:04 AM EDT 07/20/2023 1:25 AM EDT Aislinn Chavis PA-C MICROBIOLOGY - GENERAL ORDERA BLES Final Result [facility]
[address] [place] [address], * Procalcitonin (07/20/2023 1:04 AM EDT) [facility] Procalcitonin 0.05 0.00 - 0.25 ng/mL 07/20/2023 1:49 AM EDT [facility] Blood Structure of right upper limb / Unknown Venipuncture / Unknown 07/20/2023 1:04 AM EDT 07/20/2023 1:20 AM EDT Narrative [facility] - 07/20/2023 1:49 AM EDT As a Marker for Sepsis (Non-Neonates): 1. <0.5 ng/mL represents a low risk of severe sepsis and/or septic shock. 2. >2 ng/mL represents a high risk of severe sepsis and/or septic shock. As a Marker for Lower Respiratory Tract Infections that require antibiotic therapy: PCT on Admission ?Antibiotic Therapy ? 6-12 Hrs later >0.5 ?Strongly Recommended >0.25 - <0.5 ?Recommended 0.1 - 0.25 ?Discouraged ?Remeasure/reassess PCT <0.1 ?Strongly Discouraged ? Remeasure/reassess PCT As 28 day mortality risk marker: Change in Procalcitonin Result (>80% or <=80%) if Day 0 (or Day 1) and Day 4 values are available. Refer to http://www.fwtmbz-nwy-wzcpbwcrvc.com Change in PCT <=80% A decrease of PCT levels below or equal to 80% defines a positive change in PCT test result representing a higher risk for 28-day all-cause mortality of patients diagnosed with severe sepsis for septic shock. Change in PCT >80% A decrease of PCT levels of more than 80% defines a negative change in PCT result representing a lower risk for 28-day all-cause mortality of patients diagnosed with severe sepsis or septic shock. Aislinn Chavis PA-C LAB BLOOD ORDERABLES Final Re sult Performing Organization Address [facility] Co de Phone Number [facility]
[address] [place] [address], * Lactic Acid, Plasma (07/20/2023 1:04 AM EDT) [facility] Lactate 1.1 0.5 - 2.0 mmol/L 07/20/2023 1:40 AM EDT [facility] Comment:Falsely depressed re sults may occur on samples drawn from patients receiving N-Acetylcysteine (NAC) or Metamizole. Blood Structure of right upper limb / Unknown Venipuncture / Unknown 07/20/2023 1:04 AM EDT 07/20/2023 1:20 AM EDT Aislinn Chavis PA-C LAB BLOOD ORDERABLES Final Re sult Performing Organization Address [facility] Co de Phone Number [facility]
[address] [place] [address], * (ABNORMAL) Single High Sensitivity Troponin T (07/20/2023 1:04 AM EDT) [facility] HS Troponin T 10(H) <10 ng/L 07/20/2023 1:42 AM EDT [facility] Blood Structure of right upper limb / Unknown Venipuncture / Unknown 07/20/2023 1:04 AM EDT 07/20/2023 1:20 AM EDT Narrative [facility] - 07/20/2023 1:42 AM EDT High Sensitive Troponin T Reference Range: <10.0 ng/L- Negative Female for AMI <15.0 ng/L- Negative Male for AMI >=10 - Abnormal Female indicating possible myocardial injury. >=15 - Abnormal Male indicating possible myocardial injury. Clinicians would have to utilize clinical acumen, EKG, Troponin, and serial changes to determine if it is an Acute Myocardial Infarction or myocardial injury due to an underlying chronic condition. Aislinn Chavis PA-C LAB BLOOD ORDERABLES Final Re sult [facility]
[address] [place] [address], * (ABNORMAL) Comprehensive Metabolic Panel (07/20/2023 1:04 AM EDT) Glucose 170(H) 65 - 99 mg/dL 07/20/2023 1:42 AM EDT [facility] BUN 19 6 - 20 mg/dL 07/20/2023 1:42 AM EDT [facility] Creatinine 0.82 0.57 - 1.00 mg/dL 07/20/2023 1:42 AM EDT [facility] Sodium 139 136 - 145 mmol/L 07/20/2023 1:42 AM EDT [facility] Potassium 3.0(L) 3.5 - 5.2 mmol/L 07/20/2023 1:42 AM EDT [facility] Chloride 102 98 - 107 mmol/L 07/20/2023 1:42 AM EDT [facility] CO2 27.0 22.0 - 29.0 mmol/L 07/20/2023 1:42 AM EDT [facility] Calcium 9.1 8.6 - 10.5 mg/dL 07/20/2023 1:42 AM EDT [facility] Total Protein 6.7 6.0 - 8.5 g/dL 07/20/2023 1:42 AM EDT [facility] Albumin 4.0 3.5 - 5.2 g/dL 07/20/2023 1:42 AM EDT [facility] ALT (SGPT) 8 1 - 33 U/L 07/20/2023 1:42 AM EDT [facility] AST (SGOT) 14 1 - 32 U/L 07/20/2023 1:42 AM EDT [facility] Alkaline Phosphatase 74 39 - 117 U/L 07/20/2023 1:42 AM EDT [facility] Total Bilirubin 0.3 0.0 - 1.2 mg/dL 07/20/2023 1:42 AM EDT [facility] Globulin 2.7 gm/dL 07/20/2023 1:42 AM EDT [facility] Comment:Calculated Result A/G Ratio 1.5 g/dL 07/20/2023 1:42 AM EDT [facility] BUN/Creatinine Ratio 23.2 7.0 - 25.0 07/20/2023 1:42 AM EDT [facility] Anion Gap 10.0 5.0 - 15.0 mmol/L 07/20/2023 1:42 AM EDT [facility] eGFR 87.8 >60.0 mL/min/1.7 3 07/20/2023 1:42 AM EDT [facility] Blood Structure of right upper limb / Unknown Venipuncture / Unknown 07/20/2023 1:04 AM EDT 07/20/2023 1:20 AM EDT Narrative [facility] - 07/20/2023 1:42 AM EDT GFR Normal >60 Chronic Kidney Disease <60 Kidney Failure <15 us Aislinn Chavis PA-C LAB BLOOD ORDERABLES Final Re sult [facility]
[address] [place] [address], documented in this encounter Visit Diagnoses Diagnosis Cellulitis- Primary Cellulitis and abscess of unspecified site Cellulitis of chest wall Cellulitis and abscess of trunk History of biopsy Other postprocedural status History of left breast cancer History of bilateral mastectomy Acquired absence of breast and nipple Lymphedema of arm Other noninfectious lymphedema Chills (without fever) Malaise and fatigue Generalized body aches History of hypertension Personal history of other diseases of circulatory system History of hypothyroidism Personal history of endocrine, metabolic, and immunity disorders documented in this encounter Admitting Diagnoses Diagnosis Cellulitis Cellulitis and abscess of unspecified site documented in this encounter Administered Medications Inactive Administered Medications - up to 3 most recent administrations Medication Order MAR Action Action Date Dose Rate Site acetaminophen (TYLENOL) tablet 1,000 mg 1,000 mg, Oral, 3 Times Daily, First dose on Sun07/20/23 at 0900, For 10 doses, Administer prior to opioid use. Alternate with NSAIDS (if available). Based on patient request - if ordered for moderate or severe pain, provider allows for administration of a medication prescribed for a lower pain scale. Do not exceed 4 grams of acetaminophen in a 24 hr period. Max dose of 2gm for AST/ALT greater than 120 units/L. If given for pain, use the following pain scale: Mild Pain = Pain Score of 1-3, CPOT 1-2 Moderate Pain = Pain Score of 4-6, CPOT 3-4 Severe Pain = Pain Score of 7-10, CPOT 5-8, Indications: PainIndications:Pain Given 07/22/2023 8:50 AM EDT 1,000 mg Given 07/21/2023 10:00 PM EDT 1,000 mg Given 07/21/2023 3:25 PM EDT 1,000 mg anastrozole (ARIMIDEX) tablet 1 mg 1 mg, Oral, Nightly, First dose (after last modification) on Sun07/20/23 at 2100, Group 2 (Castella) Hazardous Drug - Reproductive Risk Only - See Handling Guide Given 07/21/2023 9:59 PM EDT 1 mg Given 07/20/2023 8:27 PM EDT 1 mg bisacodyl (DULCOLAX) EC tablet 5 mg 5 mg, Oral, Daily PRN, Constipation, Use if polyethylene glycol is ineffective, Starting on Sun07/20/23 at 0737, Use if no bowel movement after 12 hours. Swallow whole. Do not crush, split, or chew tablet. bisacodyl (DULCOLAX) suppository 10 mg 10 mg, Rectal, Daily PRN, Constipation, Use if bisacodyl oral is ineffective, Starting on Sun07/20/23 at 0737, Use if no bowel movement after 12 hours. Hold for diarrhea busPIRone (BUSPAR) tablet 15 mg 15 mg, Oral, 2 Times Daily, First dose on Sun07/20/23 at 0900, Caution: Look alike/sound alike drug alert. Take with food. Avoid grapefruit juice. Given 07/22/2023 8:50 AM EDT 15 mg Given 07/21/2023 9:57 PM EDT 15 mg Given 07/21/2023 9:04 AM EDT 15 mg cefTRIAXone (ROCEPHIN) 2000 mg/100 mL 0.9% NS IVPB (MBP) 2,000 mg, Intravenous, Administer over 30 Minutes, Once, On Sun07/20/23 at 0304, For 1 dose, LR should be paused and flushing of the line with NS is recommended prior to and after completion of ceftriaxone infusion due to incompatibility. Do not co-adminster with calcium-containing solutions. Caution: Look alike/sound alike drug alert. Break seal and mix to activiate vial before use., Indications: Skin and Soft Tissue InfectionIndications:Skin and Soft Tissue Infection New Bag 07/20/2023 3:33 AM EDT 2,000 mg cefTRIAXone (ROCEPHIN) 2000 mg/100 mL 0.9% NS IVPB (MBP) 2,000 mg, Intravenous, Administer over 30 Minutes, Every 24 Hours, First dose (after last modification) on Sun07/20/23 at 1800, For 5 days, LR should be paused and flushing of the line with NS is recommended prior to and after completion of ceftriaxone infusion due to incompatibility. Do not co-adminster with calcium-containing solutions. Caution: Look alike/sound alike drug alert. Break seal and mix to activiate vial before use., Indications: Skin and Soft Tissue InfectionIndications:Skin and Soft Tissue Infection New Bag 07/22/2023 2:35 PM EDT 2,000 mg New Bag 07/21/2023 5:57 PM EDT 2,000 mg New Bag 07/20/2023 5:07 PM EDT 2,000 mg DAPTOmycin (CUBICIN) 400 mg in sodium chloride 0.9 % 50 mL IVPB 400 mg (rounded from 396 mg = 6 mg/kg ? 66 kg Adjusted weight), Intravenous, at 100 mL/hr, Administer over 30 Minutes, Every 24 Hours, First dose on Sun07/20/23 at 1400, For 7 days, Caution: Look alike/sound alike drug alert. Refrigerate. Do not shake., Reason for Therapy: Other, Indication for Therapy: empiric MRSA coverage, Indications: Skin and Soft Tissue InfectionIndications:Skin and Soft Tissue Infection New Bag 07/22/2023 12:59 PM EDT 400 mg 100 mL/hr New Bag 07/21/2023 1:30 PM EDT 400 mg 100 mL/hr New Bag 07/20/2023 3:21 PM EDT 400 mg 100 mL/hr Enoxaparin Sodium (LOVENOX) syringe 40 mg 40 mg, Subcutaneous, Daily, First dose on Sun07/20/23 at 0900, Give subcutaneous in abdomen only. Do not massage site after injection., Indications: VTE ProphylaxisIndications:VTE Prophylaxis Given 07/22/2023 8:50 AM EDT 40 mg Left Lower Abdomen Given 07/21/2023 9:03 AM EDT 40 mg Le ft Lower Abdomen Given 07/20/2023 8:50 AM EDT 40 mg Ri ght Lower Abdomen fluticasone (FLONASE) 50 MCG/ACT nasal spray 2 spray 2 spray, Nasal, Daily, First dose on Sun07/20/23 at 0900 Given 07/22/2023 8:51 AM EDT 2 sprays Given 07/21/2023 9:07 AM EDT 2 sprays Given 07/20/2023 10:19 AM EDT 2 sprays hydroCHLOROthiazide (HYDRODIURIL) oral 12.5 mg 12.5 mg, Oral, Every 24 Hours Scheduled, First dose on Sun07/20/23 at 0900, Caution: Look alike/sound alike drug alert Given 07/22/2023 8:51 AM EDT 12.5 mg Given 07/21/2023 9:04 AM EDT 12.5 mg Given 07/20/2023 8:52 AM EDT 12.5 mg HYDROmorphone (DILAUDID) injection 0.5 mg 0.5 mg, Intravenous, Every 2 Hours PRN, Severe Pain, Pain Unresponsive to Other Medications / Interventions, Starting on Sun07/20/23 at 0329, For 7 days, Hold for sedation. Do NOT administer within 24 Hours of anticipated discharge. If given for pain, use the following pain scale: Mild Pain = Pain Score of 1-3, CPOT 1-2 Moderate Pain = Pain Score of 4-6, CPOT 3-4 Severe Pain = Pain Score of 7-10, CPOT 5-8 Given 07/21/2023 11:12 AM EDT 0.5 mg Given 07/21/2023 6:24 AM EDT 0.5 mg Given 07/20/2023 10:03 PM EDT 0.5 mg R ight Arm ibuprofen (ADVIL,MOTRIN) tablet 400 mg 400 mg, Oral, Every 6 Hours PRN, Mild Pain, Starting on 07/21/23 at 1155, Based on patient request - if ordered for moderate or severe pain, provider allows for administration of a medication prescribed for a lower pain scale. Mucous membrane irritant. Do not crush or chew tablet or capsule unless administered through a feeding tube. If given for pain, use the following pain scale: Mild Pain = Pain Score of 1-3, CPOT 1-2 Moderate Pain = Pain Score of 4-6, CPOT 3-4 Severe Pain = Pain Score of 7-10, CPOT 5-8 Given 07/22/2023 6:10 AM EDT 400 mg Given 07/21/2023 6:15 PM EDT 400 mg iopamidol (ISOVUE-300) 61 % injection 100 mL 100 mL, Intravenous, Once in Imaging, On Sun07/20/23 at 0244, For 1 dose Given 07/20/2023 2:28 AM EDT 85 mL levothyroxine (SYNTHROID, LEVOTHROID) tablet 50 mcg 50 mcg, Oral, Daily, First dose on Sun07/20/23 at 0900, Take on empty stomach. Given 07/22/2023 10:41 AM EDT 50 mcg Given 07/21/2023 9:06 AM EDT 50 mcg Given 07/20/2023 8:51 AM EDT 50 mcg losartan (COZAAR) tablet 50 mg 50 mg, Oral, Every 24 Hours Scheduled, First dose on Sun07/20/23 at 0900 Given 07/21/2023 10:01 PM EDT 50 mg Given 07/20/2023 10:14 PM EDT 50 mg morphine injection 2 mg 2 mg, Intravenous, Once, On Sun07/20/23 at 0100, For 1 dose, Based on patient request - if ordered for moderate or severe pain, provider allows for administration of a medication prescribed for a lower pain scale. If given for pain, use the following pain scale: Mild Pain = Pain Score of 1-3, CPOT 1-2 Moderate Pain = Pain Score of 4-6, CPOT 3-4 Severe Pain = Pain Score of 7-10, CPOT 5-8 Given 07/20/2023 2:07 AM EDT 2 mg naloxone (NARCAN) injection 0.4 mg 0.4 mg, Intravenous, Every 5 Minutes PRN, Opioid Reversal, Respiratory Depression, Starting on Sun07/21/23 at 1152 ondansetron (ZOFRAN) injection 4 mg 4 mg, Intravenous, Once, On Sun07/20/23 at 0100, For 1 dose, If multiple N/V medications ordered, use in the following order: Ondansetron, Prochlorperazine, Promethazine. Use PO unless patient refuses or patient unable to swallow. Given 07/20/2023 2:08 AM EDT 4 mg ondansetron (ZOFRAN) injection 4 mg 4 mg, Intravenous, Once, On Sun07/20/23 at 0307, For 1 dose, If multiple N/V medications ordered, use in the following order: Ondansetron, Prochlorperazine, Promethazine. Use PO unless patient refuses or patient unable to swallow. Given 07/20/2023 2:56 AM EDT 4 mg ondansetron (ZOFRAN) injection 4 mg 4 mg, Intravenous, Every 6 Hours PRN, Nausea, Vomiting, Starting on Sun07/20/23 at 1231, If multiple N/V medications ordered, use in the following order: Ondansetron, Prochlorperazine, Promethazine. Use PO unless patient refuses or patient unable to swallow. Given 07/21/2023 9:58 PM EDT 4 mg Given 07/20/2023 12:49 PM EDT 4 mg oxyCODONE (ROXICODONE) immediate release tablet 10 mg 10 mg, Oral, Every 4 Hours PRN, Moderate Pain, Pain Unresponsive to Other Medications / Interventions, Starting on 07/21/23 at 1152, For 135 hours, Hold for sedation If given for pain, use the following pain scale: Mild Pain = Pain Score of 1-3, CPOT 1-2 Moderate Pain = Pain Score of 4-6, CPOT 3-4 Severe Pain = Pain Score of 7-10, CPOT 5-8 Given 07/21/2023 1:30 PM EDT 1 0 mg oxyCODONE (ROXICODONE) immediate release tablet 10 mg 10 mg, Oral, Every 6 Hours PRN, Moderate Pain, Pain Unresponsive to Other Medications / Interventions, Starting on 07/21/23 at 1730, Hold for sedation If given for pain, use the following pain scale: Mild Pain = Pain Score of 1-3, CPOT 1-2 Moderate Pain = Pain Score of 4-6, CPOT 3-4 Severe Pain = Pain Score of 7-10, CPOT 5-8 Given 07/22/2023 10:41 AM EDT 10 mg Given 07/21/2023 9:56 PM EDT 10 mg oxyCODONE (ROXICODONE) immediate release tablet 5 mg 5 mg, Oral, Every 4 Hours PRN, Moderate Pain, Pain Unresponsive to Other Medications / Interventions, Starting on Sun07/20/23 at 0329, For 7 days, Hold for sedation {MARK} If given for pain, use the following pain scale: Mild Pain = Pain Score of 1-3, CPOT 1-2 Moderate Pain = Pain Score of 4-6, CPOT 3-4 Severe Pain = Pain Score of 7-10, CPOT 5-8 Given 07/21/2023 9:04 AM EDT 5 mg Given 07/21/2023 2:18 AM EDT 5 mg Given 07/20/2023 6:23 PM EDT 5 mg pantoprazole (PROTONIX) EC tablet 40 mg 40 mg, Oral, Every Conveyor Feeder, First dose on Sun07/20/23 at 0830, Swallow whole; do not crush, split, or chew. Given 07/22/2023 6:10 AM EDT 40 mg Given 07/21/2023 6:23 AM EDT 40 mg Given 07/20/2023 8:52 AM EDT 40 mg polyethylene glycol (MIRALAX) packet 17 g 17 g, Oral, Daily PRN, Constipation, Use if senna-docusate is ineffective, Starting on Sun07/20/23 at 0737, Use if no bowel movement after 12 hours. Mix in 6-8 ounces of water. Use 4-8 ounces of water, tea, or juice for each 17 gram dose. Given 07/20/2023 8:50 AM EDT 17 g potassium chloride (K-DUR,KLOR-CON) CR tablet 40 mEq 40 mEq, Oral, Every 4 Hours, First dose on Sun07/20/23 at 0314, For 3 doses, Do not crush or chew the capsules or tablets. The drug may not work as designed if the capsule or tablet is crushed or chewed. Swallow whole. Take with food. Given 07/20/2023 11:30 AM EDT 40 mEq Given 07/20/2023 8:51 AM EDT 40 mEq Given 07/20/2023 3:14 AM EDT 40 mEq propranolol (INDERAL) tablet 20 mg 20 mg, Oral, Nightly, First dose on Sun07/20/23 at 2100, Hold for SBP less than 100, DBP less than 60, or heart rate less than 50 Given 07/21/2023 9:57 PM EDT 20 mg Given 07/20/2023 10:14 PM EDT 20 mg rosuvastatin (CRESTOR) tablet 10 mg 10 mg, Oral, Nightly, First dose on Sun07/20/23 at 2100, Avoid grapefruit juice. Given 07/21/2023 9:57 PM EDT 10 mg Given 07/20/2023 8:17 PM EDT 10 mg sennosides-docusate (PERICOLACE) 8.6-50 MG per tablet 2 tablet 2 tablet, Oral, 2 Times Daily, First dose on Sun07/20/23 at 0900, HOLD MEDICATION IF PATIENT HAS HAD BOWEL MOVEMENT. Start bowel management regimen if patient has not had a bowel movement after 12 hours. Given 07/22/2023 8:51 AM EDT 2 tablets Given 07/21/2023 9:58 PM EDT 2 tablets Given 07/21/2023 9:04 AM EDT 2 tablets simethicone (MYLICON) 40 MG/0.6ML drops 40 mg 40 mg, Oral, 4 Times Daily PRN, Flatulence, Starting on Sun07/20/23 at 0653 simethicone (MYLICON) chewable tablet 80 mg 80 mg, Oral, Once, On Sun07/20/23 at 0318, For 1 dose Given 07/20/2023 3:33 AM EDT 80 mg sodium chloride 0.9 % flush 10 mL 10 mL, Intravenous, Every 12 Hours Scheduled, First dose on Sun07/20/23 at 0900 Given 07/22/2023 8:51 AM EDT 10 mL Given 07/21/2023 10:00 PM EDT 10 mL Given 07/21/2023 9:07 AM EDT 10 mL vancomycin 1750 mg/500 mL 0.9% NS IVPB ([facility]) 1,750 mg (rounded from 1,796 mg = 20 mg/kg ? 89.8 kg), Intravenous, Administer over 105 Minutes, Once, On Sun07/20/23 at 0304, For 1 dose, Indications: Skin and Soft Tissue InfectionIndications:Skin and Soft Tissue Infection New Bag 07/20/2023 4:16 AM EDT 1,750 mg documented in this encounter Active and Recently Administered Medications Times are shown in EDT. Scheduled Medication Order 07/20/2023 07/21/2023 07/22/2023 acetaminophen (TYLENOL) tablet 1,000 mg 1,000 mg, Oral, 3 Times Daily, First dose on Sun07/20/23 at 0900, For 10 doses, Administer prior to opioid use. Alternate with NSAIDS (if available). Based on patient request - if ordered for moderate or severe pain, provider allows for administration of a medication prescribed for a lower pain scale. Do not exceed 4 grams of acetaminophen in a 24 hr period. Max dose of 2gm for AST/ALT greater than 120 units/L. If given for pain, use the following pain scale: Mild Pain = Pain Score of 1-3, CPOT 1-2 Moderate Pain = Pain Score of 4-6, CPOT 3-4 Severe Pain = Pain Score of 7-10, CPOT 5-8, Indications: Pain 0850 (Given - Provider: Susannah Irene RN)1521 (Given - Provider: Susannah Irene RN)2017 (Given - Provider: Fred Kern RN) 0904 (Given - Provider: Stacy Monteiro, HUMZA)1525 (Given - Provider: Stacy Monteiro, HUMZA)2200 (Given - Provider: Kayce Danielle, RN) 0850 (Given - Provider: Maria E Valera, RN) anastrozole (ARIMIDEX) tablet 1 mg 1 mg, Oral, Nightly, First dose (after last modification) on Sun07/20/23 at 2100, Group 2 (Castella) Hazardous Drug - Reproductive Risk Only - See Handling Guide 2026 (Given - Provider: Fred Kern RN) 2158 (Given - Provider: Kayce Danielle, HUMZA) busPIRone (BUSPAR) tablet 15 mg 15 mg, Oral, 2 Times Daily, First dose on Sun07/20/23 at 0900, Caution: Look alike/sound alike drug alert. Take with food. Avoid grapefruit juice. 0851 (Given - Provider: Susannah Irene RN)2017 (Given - Provider: Fred Kern RN) 0904 (Given - Provider: Stacy Monteiro, HUMZA)215 (Given - Provider: Kayce Danielle, HUMZA) 0850 (Given - Provider: Maria E Valera, HUMZA) cefTRIAXone (ROCEPHIN) 2000 mg/100 mL 0.9% NS IVPB (MBP) (COMPLETED) 2,000 mg, Intravenous, Administer over 30 Minutes, Once, On Sun07/20/23 at 0304, For 1 dose, LR should be paused and flushing of the line with NS is recommended prior to and after completion of ceftriaxone infusion due to incompatibility. Do not co-adminster with calcium-containing solutions. Caution: Look alike/sound alike drug alert. Break seal and mix to activiate vial before use., Indications: Skin and Soft Tissue Infection 0333 (New Bag - Provider: Neli Griffin, HUMZA)0421 (Stopped - Provider: Neli Griffin RN) cefTRIAXone (ROCEPHIN) 2000 mg/100 mL 0.9% NS IVPB (MBP) 2,000 mg, Intravenous, Administer over 30 Minutes, Every 24 Hours, First dose (after last modification) on Sun07/20/23 at 1800, For 5 days, LR should be paused and flushing of the line with NS is recommended prior to and after completion of ceftriaxone infusion due to incompatibility. Do not co-adminster with calcium-containing solutions. Caution: Look alike/sound alike drug alert. Break seal and mix to activiate vial before use., Indications: Skin and Soft Tissue Infection 1707 (New Bag - Provider: Susannah Irene RN) 1757 (New Bag - Provider: Stacy Monteiro, HUMZA) 1435 (New Bag - Provider: Maria E Valera, RN) DAPTOmycin (CUBICIN) 400 mg in sodium chloride 0.9 % 50 mL IVPB 400 mg (rounded from 396 mg = 6 mg/kg ? 66 kg Adjusted weight), Intravenous, at 100 mL/hr, Administer over 30 Minutes, Every 24 Hours, First dose on Sun07/20/23 at 1400, For 7 days, Caution: Look alike/sound alike drug alert. Refrigerate. Do not shake., Reason for Therapy: Other, Indication for Therapy: empiric MRSA coverage, Indications: Skin and Soft Tissue Infection 1521 (New Bag - Provider: Susannah Irene RN) 1330 (New Bag - Provider: Stacy Monteiro, HUMZA) 1259 (New Bag - Provider: Maria E Valera, HUMZA) Enoxaparin Sodium (LOVENOX) syringe 40 mg 40 mg, Subcutaneous, Daily, First dose on Sun07/20/23 at 0900, Give subcutaneous in abdomen only. Do not massage site after injection., Indications: VTE Prophylaxis 0850 (Given - Provider: Susannah Irene RN) 0903 (Given - Provider: Stacy Monteiro, HUMZA) 0850 (Given - Provider: Maria E Valera, RN) fluticasone (FLONASE) 50 MCG/ACT nasal spray 2 spray 2 spray, Nasal, Daily, First dose on Sun07/20/23 at 0900 1019 (Given - Provider: Susannah Irene RN) 0907 (Given - Provider: Stacy Monteiro, HUMZA) 0851 (Given - Provider: Maria E Valera, HUMZA) hydroCHLOROthiazide (HYDRODIURIL) oral 12.5 mg(Linked Group 1) 12.5 mg, Oral, Every 24 Hours Scheduled, First dose on Sun07/20/23 at 0900, Caution: Look alike/sound alike drug alert 0852 (Given - Provider: Susannah Irene RN) 0904 (Given - Provider: Stacy Monteiro, HUMZA) 0851 (Given - Provider: Maria E Valera, HUMZA) HYDROmorphone (DILAUDID) injection 0.5 mg 0.5 mg, Intravenous, Once, On Sun07/20/23 at 0318, For 1 dose, Based on patient request - if ordered for moderate or severe pain, provider allows for administration of a medication prescribed for a lower pain scale. If given for pain, use the following pain scale: Mild Pain = Pain Score of 1-3, CPOT 1-2 Moderate Pain = Pain Score of 4-6, CPOT 3-4 Severe Pain = Pain Score of 7-10, CPOT 5-8 0315 (Not Given - Provider: Neli Griffin RN - Reason: Patient/family refused) iopamidol (ISOVUE-300) 61 % injection 100 mL (COMPLETED) 100 mL, Intravenous, Once in Imaging, On Sun07/20/23 at 0244, For 1 dose 0228 (Given - Provider: Lelo Rey) levothyroxine (SYNTHROID, LEVOTHROID) tablet 50 mcg 50 mcg, Oral, Daily, First dose on Sun07/20/23 at 0900, Take on empty stomach. 0851 (Given - Provider: Susannah Irene RN) 0906 (Given - Provider: Stacy Monteiro, HUMZA) 1041 (Given - Provider: Maria E Valera, HUMZA) losartan (COZAAR) tablet 50 mg(Linked Group 1) 50 mg, Oral, Every 24 Hours Scheduled, First dose on Sun07/20/23 at 0900 0851 (Not Given - Provider: Susannah Irene RN - Reason: Patient/family refused)2214 (Given - Provider: Fred Kern RN) 2201 (Given - Provider: Kayce Danielle RN) morphine injection 2 mg (COMPLETED) 2 mg, Intravenous, Once, On Sun07/20/23 at 0100, For 1 dose, Based on patient request - if ordered for moderate or severe pain, provider allows for administration of a medication prescribed for a lower pain scale. If given for pain, use the following pain scale: Mild Pain = Pain Score of 1-3, CPOT 1-2 Moderate Pain = Pain Score of 4-6, CPOT 3-4 Severe Pain = Pain Score of 7-10, CPOT 5-8 0207 (Given - Provider: Neli Griffin RN) ondansetron (ZOFRAN) injection 4 mg (COMPLETED) 4 mg, Intravenous, Once, On Sun07/20/23 at 0100, For 1 dose, If multiple N/V medications ordered, use in the following order: Ondansetron, Prochlorperazine, Promethazine. Use PO unless patient refuses or patient unable to swallow. 0208 (Given - Provider: Neli Griffin RN) ondansetron (ZOFRAN) injection 4 mg (COMPLETED) 4 mg, Intravenous, Once, On Sun07/20/23 at 0307, For 1 dose, If multiple N/V medications ordered, use in the following order: Ondansetron, Prochlorperazine, Promethazine. Use PO unless patient refuses or patient unable to swallow. 0256 (Given - Provider: Neli Griffin RN) pantoprazole (PROTONIX) EC tablet 40 mg 40 mg, Oral, Every Conveyor Feeder, First dose on Sun07/20/23 at 0830, Swallow whole; do not crush, split, or chew. 0852 (Given - Provider: Susannah Irene RN) 0623 (Given - Provider: Fred Kern RN) 0610 (Given - Provider: Kayce Danielle RN) potassium chloride (K-DUR,KLOR-CON) CR tablet 40 mEq (COMPLETED) 40 mEq, Oral, Every 4 Hours, First dose on Sun07/20/23 at 0314, For 3 doses, Do not crush or chew the capsules or tablets. The drug may not work as designed if the capsule or tablet is crushed or chewed. Swallow whole. Take with food. 0307 (Hold - Provider: Neli Griffin RN - Reason: Other - Comment: PT CURRENTLY VERY NAUSEATD. ANTIEMETIC ADMINISTERED. WILL TRY AGAIN WHEN PT IS NO LONGER NAUSEATED)0314 (Given - Provider: Neli Griffin RN)0851 (Given - Provider: Susannah Irene RN)1130 (Given - Provider: Susannah Irene RN) propranolol (INDERAL) tablet 20 mg 20 mg, Oral, Nightly, First dose on Sun07/20/23 at 2100, Hold for SBP less than 100, DBP less than 60, or heart rate less than 50 2213 (Given - Provider: Fred Kern RN) 2156 (Given - Provider: Kayce Danielle, RN) rosuvastatin (CRESTOR) tablet 10 mg 10 mg, Oral, Nightly, First dose on Sun07/20/23 at 2100, Avoid grapefruit juice. 2016 (Given - Provider: Fred Kern RN) 2156 (Given - Provider: Kayce Danielle, RN) sennosides-docusate (PERICOLACE) 8.6-50 MG per tablet 2 tablet(Linked Group 2) 2 tablet, Oral, 2 Times Daily, First dose on Sun07/20/23 at 0900, HOLD MEDICATION IF PATIENT HAS HAD BOWEL MOVEMENT. Start bowel management regimen if patient has not had a bowel movement after 12 hours. 0850 (Given - Provider: Susannah Irene RN)2025 (Given - Provider: Fred Kern RN) 0904 (Given - Provider: Stacy Monteiro, HUMZA)2157 (Given - Provider: Kayce Danielle, HUMZA) 0851 (Given - Provider: Maria E Valera, HUMZA) simethicone (MYLICON) chewable tablet 80 mg (COMPLETED) 80 mg, Oral, Once, On Sun07/20/23 at 0318, For 1 dose 0333 (Given - Provider: Neli Griffin RN) sodium chloride 0.9 % flush 10 mL 10 mL, Intravenous, Every 12 Hours Scheduled, First dose on Sun07/20/23 at 0900 0855 (Canceled Entry - Provider: Susannah Irene RN)2018 (Given - Provider: Fred Kern RN) 0907 (Given - Provider: Stacy Monteiro, HUMZA)2199 (Given - Provider: Kayce Danielle, HUMZA) 0851 (Given - Provider: Maria E Valera, HUMZA) vancomycin 1750 mg/500 mL 0.9% NS IVPB ([facility]) (COMPLETED) 1,750 mg (rounded from 1,796 mg = 20 mg/kg ? 89.8 kg), Intravenous, Administer over 105 Minutes, Once, On Sun07/20/23 at 0304, For 1 dose, Indications: Skin and Soft Tissue Infection 0416 (New Bag - Provider: Neli Griffin RN) PRN Medication Order 07/20/2023 07/21/2023 07/22/2023 bisacodyl (DULCOLAX) EC tablet 5 mg(Linked Group 2) 5 mg, Oral, Daily PRN, Constipation, Use if polyethylene glycol is ineffective, Starting on Sun07/20/23 at 0737, Use if no bowel movement after 12 hours. Swallow whole. Do not crush, split, or chew tablet. bisacodyl (DULCOLAX) suppository 10 mg(Linked Group 2) 10 mg, Rectal, Daily PRN, Constipation, Use if bisacodyl oral is ineffective, Starting on Sun07/20/23 at 0737, Use if no bowel movement after 12 hours. Hold for diarrhea Calcium Replacement - Follow Nurse / BPA Driven Protocol Open Order & Select [facility] Electrolyte Replacement Protocol Algorithm to View Details HYDROmorphone (DILAUDID) injection 0.5 mg 0.5 mg, Intravenous, Every 2 Hours PRN, Severe Pain, Pain Unresponsive to Other Medications / Interventions, Starting on Sun07/20/23 at 0329, For 7 days, Hold for sedation. Do NOT administer within 24 Hours of anticipated discharge. If given for pain, use the following pain scale: Mild Pain = Pain Score of 1-3, CPOT 1-2 Moderate Pain = Pain Score of 4-6, CPOT 3-4 Severe Pain = Pain Score of 7-10, CPOT 5-8 0853 (Given - Provider: Susannah Irene RN)2203 (Given - Provider: Fred Kern, HUMZA) 0624 (Given - Provider: Fred Kern RN)1112 (Given - Provider: Stacy Monteiro RN) ibuprofen (ADVIL,MOTRIN) tablet 400 mg 400 mg, Oral, Every 6 Hours PRN, Mild Pain, Starting on 07/21/23 at 1155, Based on patient request - if ordered for moderate or severe pain, provider allows for administration of a medication prescribed for a lower pain scale. Mucous membrane irritant. Do not crush or chew tablet or capsule unless administered through a feeding tube. If given for pain, use the following pain scale: Mild Pain = Pain Score of 1-3, CPOT 1-2 Moderate Pain = Pain Score of 4-6, CPOT 3-4 Severe Pain = Pain Score of 7-10, CPOT 5-8 1815 (Given - Provider: Stacy Monteiro, HUMZA) 0610 (Given - Provider: Kayce Danielle, RN) Magnesium Standard Dose Replacement - Follow Nurse / BPA Driven Protocol Open Order & Select S Electrolyte Replacement Protocol Algorithm to View Details naloxone (NARCAN) injection 0.4 mg 0.4 mg, Intravenous, Every 5 Minutes PRN, Opioid Reversal, Respiratory Depression, Starting on 07/21/23 at 1152 ondansetron (ZOFRAN) injection 4 mg 4 mg, Intravenous, Every 6 Hours PRN, Nausea, Vomiting, Starting on 07/20/23 at 1231, If multiple N/V medications ordered, use in the following order: Ondansetron, Prochlorperazine, Promethazine. Use PO unless patient refuses or patient unable to swallow. 1249 (Given - Provider: Susannah Irene RN) 2158 (Given - Provider: Kayce Danielle, HUMZA) oxyCODONE (ROXICODONE) immediate release tablet 10 mg (CANCELED) 10 mg, Oral, Every 4 Hours PRN, Moderate Pain, Pain Unresponsive to Other Medications / Interventions, Starting on 07/21/23 at 1152, For 135 hours, Hold for sedation If given for pain, use the following pain scale: Mild Pain = Pain Score of 1-3, CPOT 1-2 Moderate Pain = Pain Score of 4-6, CPOT 3-4 Severe Pain = Pain Score of 7-10, CPOT 5-8 1330 (Given - Provider: Stacy Monteiro, HUMZA) oxyCODONE (ROXICODONE) immediate release tablet 10 mg 10 mg, Oral, Every 6 Hours PRN, Moderate Pain, Pain Unresponsive to Other Medications / Interventions, Starting on 07/21/23 at 1730, Hold for sedation If given for pain, use the following pain scale: Mild Pain = Pain Score of 1-3, CPOT 1-2 Moderate Pain = Pain Score of 4-6, CPOT 3-4 Severe Pain = Pain Score of 7-10, CPOT 5-8 1756 (Not Given - Provider: Stacy Monteiro, HUMZA - Reason: Other - Comment: frequency changed)2156 (Given - Provider: Kayce Danielle, HUMZA) 1041 (Given - Provider: Maria E Valera RN) oxyCODONE (ROXICODONE) immediate release tablet 5 mg (CANCELED) 5 mg, Oral, Every 4 Hours PRN, Moderate Pain, Pain Unresponsive to Other Medications / Interventions, Starting on Sun07/20/23 at 0329, For 7 days, Hold for sedation {MARK} If given for pain, use the following pain scale: Mild Pain = Pain Score of 1-3, CPOT 1-2 Moderate Pain = Pain Score of 4-6, CPOT 3-4 Severe Pain = Pain Score of 7-10, CPOT 5-8 [phone] (Given - Provider: Yadira Chery RN)1021 (Given - Provider: Susannah Irene RN)1424 (Given - Provider: Susannah Irene RN)1823 (Given - Provider: Susannah Irene RN) 0218 (Given - Provider: Fred Kern RN)0904 (Given - Provider: Stacy Monteiro, HUMZA) Phosphorus Replacement - Follow Nurse / BPA Driven Protocol Open Order & Select BHS Electrolyte Replacement Protocol Algorithm to View Details polyethylene glycol (MIRALAX) packet 17 g(Linked Group 2) 17 g, Oral, Daily PRN, Constipation, Use if senna-docusate is ineffective, Starting on Sun07/20/23 at 0737, Use if no bowel movement after 12 hours. Mix in 6-8 ounces of water. Use 4-8 ounces of water, tea, or juice for each 17 gram dose. 0850 (Given - Provider: Susannah Irene RN) Potassium Replacement - Follow Nurse / BPA Driven Protocol Open Order & Select BHS Electrolyte Replacement Protocol Algorithm to View Details simethicone (MYLICON) 40 MG/0.6ML drops 40 mg 40 mg, Oral, 4 Times Daily PRN, Flatulence, Starting on Sun07/20/23 at 0653 sodium chloride 0.9 % flush 10 mL 10 mL, Intravenous, As Needed, Line Care, Starting on Sun07/20/23 at 0737 sodium chloride 0.9 % infusion 40 mL 40 mL, Intravenous, at 100 mL/hr, As Needed, Line Care, Starting on Sun07/20/23 at 0737, Following administration of an IV intermittent medication, flush line with 40mL NS at 100mL/hr. Linked Groups Order Group 1: losartan (COZAAR) tablet 50 mgJump to med 50 mg, Oral, Every 24 Hours Scheduled, First dose on Sun07/20/23 at 0900 And hydroCHLOROthiazide (HYDRODIURIL) oral 12.5 mgJump to med 12.5 mg, Oral, Every 24 Hours Scheduled, First dose on Sun07/20/23 at 0900, Caution: Look alike/sound alike drug alert Group 2: sennosides-docusate (PERICOLACE) 8.6-50 MG per tablet 2 tabletJump to med 2 tablet, Oral, 2 Times Daily, First dose on Sun07/20/23 at 0900, HOLD MEDICATION IF PATIENT HAS HAD BOWEL MOVEMENT. Start bowel management regimen if patient has not had a bowel movement after 12 hours. And polyethylene glycol (MIRALAX) packet 17 gJump to med 17 g, Oral, Daily PRN, Constipation, Use if senna-docusate is ineffective, Starting on Sun07/20/23 at 0737, Use if no bowel movement after 12 hours. Mix in 6-8 ounces of water. Use 4-8 ounces of water, tea, or juice for each 17 gram dose. And bisacodyl (DULCOLAX) EC tablet 5 mgJump to med 5 mg, Oral, Daily PRN, Constipation, Use if polyethylene glycol is ineffective, Starting on Sun07/20/23 at 0737, Use if no bowel movement after 12 hours. Swallow whole. Do not crush, split, or chew tablet. And bisacodyl (DULCOLAX) suppository 10 mgJump to med 10 mg, Rectal, Daily PRN, Constipation, Use if bisacodyl oral is ineffective, Starting on Sun07/20/23 at 0737, Use if no bowel movement after 12 hours. 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
--- OUTSIDE RECORDS SUMMARY | 2024-08-17 15:49 | XMS_ITS | Encounter Summary ---
Author Organization [facility] Address [address] [place] [address] Care Team Providers Care Insurance Sales Specialist Name Role Phone Herbert Hair MD Primary Care Provider Encounter Details Date Type Department Care Team (Late st Contact Info) Description 07/10/2023 Telephone [facility] HEMATOLOGY & ONCOLOGY [address] [address] Bre Crenshaw MD [address] [place] [id number] Social History Tobacco Use Types Packs/Day Years Used Date Smoking Tobacco: Never Smokeless Tobacco: Never Alcohol Use Standard Drinks/Week Comments Never 0 (1 standard drink = 0.6 oz pur e alcohol) AUDIT-C Answer Date Recorded Q1: How often do you have a drink containing alcohol? Never 06/13/2022 Q2: How many drinks containi ng alcohol do you have on a typical day when you are drinking? Patient does not drink Q3: How often do you have si x or more drinks on one occasion? Never 06/13/2022 PHQ-2 Answer Date Recorded Retired PHQ-9: Brief Depression Severity Measure Score 0 10/26/2022 Abuse Screen Answer Date Recorded Feels Unsafe at Home or Work/School no 03/15/2023 Feels Threatened by Someone no 03/01 Does Anyone Try to Keep You From Having Contact with Others or Doing Things Outside Your Home? no 03/15/2023 Physical Signs of Abuse Present no 03/15/2023 Housing Stability Answer Date Recorded Current Living Arrangements home 03/01 Potentially Unsafe Housing Conditions Not on sreedhar e 03/15/2023 Family and Community Support Answer Jesse e Recorded Help with Day-to-Day Activities Not on file 07/08/2023 Lonely or Isolated Not on file 07/08/2023 Employment Answer Date Recorded Do you want help finding or keeping work or a gideon b? Not on file 07/08/2023 Disabilities Answer Date Recorded Difficulty Concentrating, Remembering or Making Decisions no 03/15/2023 Difficulty Managing Errands Independently no 03/15/2023 Education Answer Date Recorded Help with school or training? Not on file Preferred Language Not on file 07/08/2023 PHQ-2 Answer Date Recorded Retired PHQ-9: Brief Depression Severity Measure Score 0 10/26/2022 Comments No Sex and Gender Information Value Date Recorded Sex Assigned at Not on file Legal Sex Female 10:43 AM EDT Gender Identity Not on file Sexual Orientation Not on file documented as of this encounter Miscellaneous Notes * Telephone Encounter - Bre Crenshaw MD - 07/10/2023 3:39 PM EDT Discussed biopsy results with patient. This does show I will have her see Dr. Bell for excision of this area. Malignant cells, most likely a chest wall recurrence of her breast cancer. Her scans show no evidence of other sites of disease. documented in this encounter Plan of Treatment Upcoming Encounters Date Type Department Care Team (Late st Contact Info) Description 09/18/2024 3:30 PM EST Office Visit [facility] HEMATOLOGY & ONCOLOGY [address] [place] [address] [address] [place] [address] Bre Crenshaw MD [address] [facility] [address] [place] [address] 12/31/2024 9:00 AM EDT Office Visit [facility] UROLOGY [address] [facility] [address] [place] [address] Oralia Saha APRN [address] [facility] [address] [place] [address] 05/12/2025 1:45 PM EDT Office Visit [facility] CARDIOLOGY [address] [facility] [address] [place] [address] Obed Woodard MD [address] [facility] [address] [address] [place] [address] documented as of this encounter Visit Diagnoses Not on filedocumented in this encounter Care Teams Insurance Sales Specialist Relationship Specialty Start Date End Date Herbert Hair MD [address] [facility] [address] [place] [address] PCP - General Adolescent Medicine 03/03/22 documented as of this encounter
--- OUTSIDE RECORDS SUMMARY | 2024-08-17 15:49 | XMS_ITS | Encounter Summary ---
Author Organization [facility] Address [address] [place] [address] Care Team Providers Care Pipe Setter Name Role Phone Herbert Hair MD Primary Care Provider + [phone] Reason for Referral * MRI/CAT/PET Scan (Routine) - Closed Specialty Diagnoses / Procedures Referred By Nasrin hernandez Referred To Contact Radiology Diagnoses Malignant neoplasm of lower-inner quadrant of left breast in female, estrogen receptor positive Subcutaneous nodule of breast Procedures CT Abdomen Pelvis With Contrast Hilda Jarvis APRN [address] [facility] [address] [place] [address] Phone: tel: fax: [facility] [address] [place] [phone] Phone: tel: Referral ID Status Reason Start Date Expiration Date Visits Re quested Visits Authorized [id number] Closed 06/26/2023 07/25/2023 1 1 * MRI/CAT/PET Scan (Routine) - Closed Specialty Diagnoses / Procedures Referred By Contgualberto t Referred To Contact Radiology Diagnoses Malignant neoplasm of lower-inner quadrant of left breast in female, estrogen receptor positive Subcutaneous nodule of breast Procedures CT Chest With Contrast Diagnostic Hilda Jarvis APRN [address] [place] [address] Phone: tel: fax: [address] [place] [address] [address] Phone: tel: Referral ID Status Reason Start Date Expiration Date Visits Re quested Visits Authorized [id number] Closed 06/26/2023 07/25/2023 1 1 Reason for Visit * MRI/CAT/PET Scan (Routine) - Closed Specialty Diagnoses / Procedures Referred By Contgualberto t Referred To Contact Radiology Diagnoses Malignant neoplasm of lower-inner quadrant of left breast in female, estrogen receptor positive Subcutaneous nodule of breast Procedures CT Abdomen Pelvis With Contrast Hilda Jarvis APRN [address] [place] [address] Phone: tel: fax: [address] [phone] Phone: tel: Referral ID Status Reason Start Date Expiration Date Visits Re quested Visits Authorized [id number] Closed 06/26/2023 07/25/2023 1 1 Encounter Details Date Type Department Care Team (Latest Contact Info) Description 07/05/2023 10:17 AM EDT - 07/05/2023 11:59 PM EDT Hospital Encounter [facility] [address] [place] [address] Malignant neoplasm of lower-inner quadrant of left breast in female, estrogen receptor positive; Subcutaneous nodule of breast Discharge Disposition: Home or Self Care Social [...] Housing Conditions Not on sreedhar e 03/15/2023 Disabilities Answer Date Recorded Difficulty Concentrating, Remembering or Making Decisions no 03/15/2023 Difficulty Managing Errands Independently no 03/15/2023 PHQ-2 Answer Date Recorded Retired PHQ-9: Brief [...] Day. 2nd time at bedtime. 08/11/2022 4 rosuvastatin (CRESTOR) 10 MG tablet Take [...] Daily. 4 documented as of this encounter Plan of Treatment Upcoming Encounters Date Type Department Care Team (Late st Contact Info) Description 09/18/2024 3:30 PM EST Office Visit [facility] HEMATOLOGY & ONCOLOGY [address] [facility] [address] [place] [phone] Bre Crenshaw MD [address] [facility] [address] [place] [address] 12/31/2024 9:00 AM EDT Office Visit [facility] UROLOGY [address] [facility] [address] [place] [address] Oralia Saha APRN [address] [facility] [address] [place] [address] 05/12/2025 1:45 PM EDT Office Visit [facility] CARDIOLOGY [address] [facility] [address] [place] [id number] Obed Woodard MD [address] [facility] [address] [address] [place] [address] documented as of this encounter Procedures Procedure Name Priority Date/Time Associated Diagnosis Comments CT ABDOMEN PELVIS W CONTRAST Routine 07/05/2023 10:48 AM EDT Malignant neoplasm of lower-inner quadrant of left breast in female, estrogen receptor positive Subcutaneous nodule of breast CT CHEST W CONTRAST Routine 07/05/2023 1 0:48 AM EDT Malignant neoplasm of lower-inner quadrant of left breast in female, estrogen receptor positive Subcutaneous nodule of breast documented in this encounter Results * CT Abdomen Pelvis With Contrast (07/05/2023 10:48 AM EDT) Anatomical Region Laterality Modality Abdomen, Pelvis N/A Computed Tomogra phy 07/05/2023 11:0 0 AM EDT Impressions 07/05/2023 11:10 AM EDT Impression: No specific evidence of recurrent or metastatic disease in the chest, abdomen and pelvis. Reticular changes with the appearance of fibrosis or scarring noted anteriorly in the left upper lobe and at the left lung apex, favored to represent posttreatment effects. Correlate with history of radiation. Electronically Signed: Bacilio Lainez MD 07/05/2023 11:10 AM EDT Workstation ID: [id number] Narrative 07/05/2023 11:[address] CHEST W CONTRAST DIAGNOSTIC, CT ABDOMEN PELVIS W CONTRAST Date of Exam: 07/05/2023 10:41 AM EDT Indication: followup breast cancer restaging. Comparison: PET/CT 05/30/2022. Technique: Axial CT images were obtained of the chest, abdomen and pelvis after the uneventful intravenous administration of 85 mL Isovue-300. ??Reconstructed coronal and sagittal images were also obtained. Automated exposure control and iterative construction methods were used. Findings: Chest: No pathologic axillary adenopathy. Changes are present from prior bilateral mastectomy and there is an elongated fluid collection present within the right anterior chest wall, nonspecific and favored seromatous without significant surrounding soft tissue edema noted. There is no pleural or pericardial effusion. There is no pathologic mediastinal lymphadenopathy. Evaluation of the osseous structures demonstrates no evidence of acute fracture and there is no evidence of new worrisome osseous lesion, with a tiny sclerotic focus seen anteriorly at T6 similar to prior PET/CT. Evaluation of the lung damon demonstrates some scarring or fibrotic changes at the left lung apex and also along the anterior margin of the left upper lobe, favoring posttreatment effects. There are no distinct new or enlarging suspicious focal pulmonary nodules present. Abdomen and pelvis: The lung bases are clear. Evaluation of the body wall soft tissues demonstrates no acute or suspicious findings. The osseous structures demonstrate no evidence of acute fracture or aggressive osseous lesion. The liver, spleen, pancreas and bilateral adrenal glands demonstrate homogeneous enhancement without suspicious focal lesion. Prior cholecystectomy. Small and large bowel loops are nondilated. The appendix is normal. There is no free fluid or pneumoperitoneum. There is no worrisome retroperitoneal or mesenteric adenopathy. Multiple small retroperitoneal lymph nodes are stable from prior PET/CT. Nonaneurysmal abdominal aorta. The pelvic viscera demonstrate no acute findings. Procedure Note Alfred Lainez MD - 07/05/2023 CT CHEST W CONTRAST DIAGNOSTIC, CT ABDOMEN PELVIS W CONTRAST Date of Exam: 07/05/2023 10:41 AM EDT Indication: followup breast cancer restaging. Comparison: PET/CT 05/30/2022. Technique: Axial CT images were obtained of the chest, abdomen and pelvisafter the uneventful intravenous administration of 85 mL Isovue-300.Reconstructed coronal and sagittal images were also obtained. Automatedexposure control and iterative construction methods were used. Findings: Chest: No pathologic axillary adenopathy. Changes are present from priorbilateral mastectomy and there is an elongated fluid collection presentwithin the right anterior chest wall, nonspecific and favored seromatouswithout significant surrounding soft tissue edema noted. There is no pleural or pericardial effusion. There isno pathologic mediastinal lymphadenopathy. Evaluation of the osseousstructures demonstrates no evidence of acute fracture and there is noevidence of new worrisome osseous lesion, with a tiny sclerotic focus seen anteriorly at T6 similar to priorPET/CT. Evaluation of the lung damon demonstrates some scarring orfibrotic changes at the left lung apex and also along the anterior marginof the left upper lobe, favoring posttreatment effects. There are no distinct new or enlarging suspiciousfocal pulmonary nodules present. Abdomen and pelvis: The lung bases are clear. Evaluation of the body wallsoft tissues demonstrates no acute or suspicious findings. The osseousstructures demonstrate no evidence of acute fracture or aggressive osseouslesion. The liver, spleen, pancreas and bilateral adrenal glands demonstrate homogeneous enhancementwithout suspicious focal lesion. Prior cholecystectomy. Small and largebowel loops are nondilated. The appendix is normal. There is no free fluidor pneumoperitoneum. There is no worrisome retroperitoneal or mesenteric adenopathy. Multiple smallretroperitoneal lymph nodes are stable from prior PET/CT. Nonaneurysmalabdominal aorta. The pelvic viscera demonstrate no acute findings. IMPRESSION: Impression: No specific evidence of recurrent or metastatic disease in the chest,abdomen and pelvis. Reticular changes with the appearance of fibrosis or scarring notedanteriorly in the left upper lobe and at the left lung apex, favored torepresent posttreatment effects. Correlate with history of radiation. Electronically Signed: Bacilio Lainez MD 07/05/2023 11:10 AM EDT Workstation ID: [id number] Hilda Jarvis [facility] IMG CT ORDERABLES Final Re sult * CT Chest With Contrast Diagnostic (07/05/2023 10:48 AM EDT) Anatomical Region Laterality Modality Chest N/A Computed Tomogra phy 07/05/2023 11:0 0 AM EDT Impressions 07/05/2023 11:10 AM EDT Impression: No specific evidence of recurrent or metastatic disease in the chest, abdomen and pelvis. Reticular changes with the appearance of fibrosis or scarring noted anteriorly in the left upper lobe and at the left lung apex, favored to represent posttreatment effects. Correlate with history of radiation. Electronically Signed: Bacilio Lainez MD 07/05/2023 11:10 AM EDT Workstation ID: [id number] Narrative 07/05/2023 11:[address] CHEST W CONTRAST DIAGNOSTIC, CT ABDOMEN PELVIS W CONTRAST Date of Exam: 07/05/2023 10:41 AM EDT Indication: followup breast cancer restaging. Comparison: PET/CT 05/30/2022. Technique: Axial CT images were obtained of the chest, abdomen and pelvis after the uneventful intravenous administration of 85 mL Isovue-300. ??Reconstructed coronal and sagittal images were also obtained. Automated exposure control and iterative construction methods were used. Findings: Chest: No pathologic axillary adenopathy. Changes are present from prior bilateral mastectomy and there is an elongated fluid collection present within the right anterior chest wall, nonspecific and favored seromatous without significant surrounding soft tissue edema noted. There is no pleural or pericardial effusion. There is no pathologic mediastinal lymphadenopathy. Evaluation of the osseous structures demonstrates no evidence of acute fracture and there is no evidence of new worrisome osseous lesion, with a tiny sclerotic focus seen anteriorly at T6 similar to prior PET/CT. Evaluation of the lung damon demonstrates some scarring or fibrotic changes at the left lung apex and also along the anterior margin of the left upper lobe, favoring posttreatment effects. There are no distinct new or enlarging suspicious focal pulmonary nodules present. Abdomen and pelvis: The lung bases are clear. Evaluation of the body wall soft tissues demonstrates no acute or suspicious findings. The osseous structures demonstrate no evidence of acute fracture or aggressive osseous lesion. The liver, spleen, pancreas and bilateral adrenal glands demonstrate homogeneous enhancement without suspicious focal lesion. Prior cholecystectomy. Small and large bowel loops are nondilated. The appendix is normal. There is no free fluid or pneumoperitoneum. There is no worrisome retroperitoneal or mesenteric adenopathy. Multiple small retroperitoneal lymph nodes are stable from prior PET/CT. Nonaneurysmal abdominal aorta. The pelvic viscera demonstrate no acute findings. Procedure Note Alfred Lainez MD - 07/05/2023 CT CHEST W CONTRAST DIAGNOSTIC, CT ABDOMEN PELVIS W CONTRAST Date of Exam: 07/05/2023 10:41 AM EDT Indication: followup breast cancer restaging. Comparison: PET/CT 05/30/2022. Technique: Axial CT images were obtained of the chest, abdomen and pelvisafter the uneventful intravenous administration of 85 mL Isovue-300.Reconstructed coronal and sagittal images were also obtained. Automatedexposure control and iterative construction methods were used. Findings: Chest: No pathologic axillary adenopathy. Changes are present from priorbilateral mastectomy and there is an elongated fluid collection presentwithin the right anterior chest wall, nonspecific and favored seromatouswithout significant surrounding soft tissue edema noted. There is no pleural or pericardial effusion. There isno pathologic mediastinal lymphadenopathy. Evaluation of the osseousstructures demonstrates no evidence of acute fracture and there is noevidence of new worrisome osseous lesion, with a tiny sclerotic focus seen anteriorly at T6 similar to priorPET/CT. Evaluation of the lung damon demonstrates some scarring orfibrotic changes at the left lung apex and also along the anterior marginof the left upper lobe, favoring posttreatment effects. There are no distinct new or enlarging suspiciousfocal pulmonary nodules present. Abdomen and pelvis: The lung bases are clear. Evaluation of the body wallsoft tissues demonstrates no acute or suspicious findings. The osseousstructures demonstrate no evidence of acute fracture or aggressive osseouslesion. The liver, spleen, pancreas and bilateral adrenal glands demonstrate homogeneous enhancementwithout suspicious focal lesion. Prior cholecystectomy. Small and largebowel loops are nondilated. The appendix is normal. There is no free fluidor pneumoperitoneum. There is no worrisome retroperitoneal or mesenteric adenopathy. Multiple smallretroperitoneal lymph nodes are stable from prior PET/CT. Nonaneurysmalabdominal aorta. The pelvic viscera demonstrate no acute findings. IMPRESSION: Impression: No specific evidence of recurrent or metastatic disease in the chest,abdomen and pelvis. Reticular changes with the appearance of fibrosis or scarring notedanteriorly in the left upper lobe and at the left lung apex, favored torepresent posttreatment effects. Correlate with history of radiation. Electronically Signed: Bacilio Lainez MD 07/05/2023 11:10 AM EDT Workstation ID: [id number] Hilda Jarvis [employer] IMG CT ORDERABLES Final Re sult documented in this encounter Visit Diagnoses Diagnosis Malignant neoplasm of lower-inner quadrant of left breast in female, estrogen receptor positive Subcutaneous nodule of breast documented in this encounter Administered Medications Inactive Administered Medications - up to 3 most recent administrations Medication Order MAR Action Action Date Dose Rate Site iopamidol (ISOVUE-300) 61 % injection 85 mL 85 mL, Intravenous, Once in Imaging, On [place] 07/05/23 at 1050, For 1 dose Given 07/05/2023 10:48 AM EDT 85 mL documented in this encounter Care Teams Pipe Setter Relationship Specialty Start Date End Date Herbert Hair MD [address] [facility] [address] [place] [address] PCP - General Adolescent Medicine 03/03/22 documented as of this encounter
--- OUTSIDE RECORDS SUMMARY | 2024-08-17 15:49 | XMS_ITS | Encounter Summary ---
[facility] Organization [facility] Address [address] [place] [address] Care Team Providers Care Oven Tender Name Role Phone Herbert Hair MD Primary Care Provider Encounter Details Date Type Department Care Team (Latest Contact Info) Description 07/13/2023 1:42 PM EDT - 07/13/2023 11:59 PM EDT Hospital [facility] [address] [facility] 3rd [place] [address] Pre-op exam Discharge Disposition: Home or Self Care Social [...] Day. 2nd time at bedtime. 08/11/2022 4 HYDROcodone-acetam inophen (NORCO) 5-325 MG per tablet Take 1 tablet by mouth Every 6 (Six) Hours As Needed. 7 tablet 07/13/2023 3:08 PM EDT 07/13/2023 4 rosuvastatin (CRESTOR) 10 MG tablet Take [...] [facility] [address] [facility] [address] [place] [phone] Bre Crenshaw MD [address] [facility] [address] [place] [address] 12/31/2024 9:00 AM EDT Office Visit [facility] UR[facility] [address] [facility] [address] [place] [address] Oralia Saha APRN [address]60 [facility] [address] [place] [address] 05/12/2025 1:45 PM EDT Office Visit [facility] CARDIOLOGY [address] [facility] [address] [place] [phone] Obed Woodard MD [address] [facility] [address] [place] [address] Scheduled Orders Name Type Priority Associated Diagnoses Orde r Schedule ECG 12 Lead ECG Routine Pre-op exam Once for 1 Occurrences starting 07/13/2023 until 07/13/2023 documented as of this encounter Visit Diagnoses Diagnosis Pre-op exam documented in this encounter Care Teams Oven Tender Relationship Specialty Start Date End Date Herbert Hair MD 1210 [facility] [address] [place] [address] PCP - General Adolescent Medicine 03/03/22 documented as of this encounter
--- OUTSIDE RECORDS SUMMARY | 2024-08-17 15:49 | XMS_ITS | Encounter Summary ---
Author Organization [facility] Address [address] [address] Care Team Providers Care Mannequin Mounter Name Role Phone Herbert Hair MD Primary Care Provider [phone] Reason for Visit * Reason Onset Date Comments trinh and Dr. SPARKS 07/10/2023 Encounter Details Date Type Department Care Team (Late st Contact Info) Description 07/10/2023 Telephone [facility] HEMATOLOGY & ONCOLOGY [address] [facility] 3 [facility] [address] [place] [address] Bre Crenshaw MD 1700 [facility] [address] [place] [address] SPARKS Social History Tobacco Use Types Packs/Day Years [...] Telephone Encounter - Yanet Preston RN - 07/10/2023 9:41 AM EDT I called patient yesterday and again today about her recent pathology. We are setting her up to seeDr. SPARKS for a surgical consultation. He is seeing her tomorrow at 10:30 and I notified the patient of the time/date. She verbalized understanding. documented in this encounter Plan of Treatment Upcoming Encounters Date Type Department Care Team (Late st Contact Info) Description 09/18/2024 3:30 PM EST Office Visit [facility] HEMATOLOGY & ONCOLOGY [address] [facility] [address] [place] [phone] Bre Crenshaw MD [address] [facility] [address] [place] [address] 12/31/2024 9:00 AM EDT Office Visit [facility] UROLOGY [address] [facility] [address] [place] [address] Oralia Saha APRN [address]60 [facility] [address] [place] [address] 05/12/2025 1:45 PM EDT Office Visit [facility] CARDIOLOGY [address] [facility] [address] [place] [phone] Obed Woodard MD [address] [facility] [address] [place] [address] documented as of this encounter Visit Diagnoses Not on filedocumented in this encounter Care Teams Mannequin Mounter Relationship Specialty Start Date End Date Herbert Hair MD 1210 [facility] [address] [place] [address] PCP - General Adolescent Medicine 03/03/22 documented as of this encounter
--- OUTSIDE RECORDS SUMMARY | 2024-08-17 15:49 | XMS_ITS | Encounter Summary ---
Author Organization [facility] Address [address] [place] [address] Care Team Providers Care Vault Keeper Name Role Phone Herbert Hair MD Primary Care Provider [phone] Encounter Details Date Type Department Care Team (Late st Contact Info) Description 07/22/2023 Readmission Management [facility] [address] [place] [address] Candelaria Chester, RN Social History Tobacco Use Types Packs/Day [...] training? Not on file Preferred Language [place] 07/20/2023 PHQ-2 Answer Date Recorded Retired PHQ-9: Brief Depression Severity Measure Score 0 10/26/2022 Comments No Sex and Gender Information Value Date Recorded Sex Assigned at Not on file Legal Sex Female 10:43 AM EDT Gender Identity Not on file Sexual Orientation Not on file documented as of this encounter Miscellaneous Notes * Outreach Note - Candelaria Chester RN - 07/22/2023 9:10 PM EDT Prep Survey Flowsheet Row Responses [facility] patient discharged from? [facility] Is LACE score < 7 ? No Eligibility Readm Mgmt Discharge diagnosis CellulitisHistory of breast cancer, s/p BL mastectomy. S/p soft tissue biops Does the patient have one of the following disease processes/diagnoses(primary or secondary)? Other Does the patient have Home health ordered? No Is there a DME ordered? No Prep survey completed? Yes CANDELARIA [place] - Registered Nurse documented in this encounter Plan of Treatment Upcoming Encounters Date Type Department Care Team (Late st Contact Info) Description 09/18/2024 3:30 PM EST Office Visit [facility] HEMATOLOGY & ONCOLOGY [address] [facility] [address] [place] [phone] Bre Crenshaw MD [address] [facility] [address] [place] [address] 12/31/2024 9:00 AM EDT Office Visit [facility] UROLOGY [address] [facility] [address] [place] [address] Oralia Saha APRN [address] [facility] [address] [place], [place] [id number] 05/12/2025 1:45 PM EDT Office Visit [facility] CARDIOLOGY [address] [facility] [address] [place] [phone] Obed Woodard MD [address] [facility] [address] [place], [place] [id number] documented as of this encounter Visit Diagnoses Not on filedocumented in this encounter Additional Health Concerns Infection Onset Date Last Indicated Resolved Time MRSA 07/20/2023 07/20/2023 documented as of this encounter Care Teams Vault Keeper Relationship Specialty Start Date End Date Herbert Hair MD 1210 [facility] [address] [place] [address] PCP - General Adolescent Medicine 03/03/22 documented as of this encounter
--- OUTSIDE RECORDS SUMMARY | 2024-08-17 15:49 | XMS_ITS | Encounter Summary ---
Author Organization [facility] Address [address] [place] [address] Care Team Providers Care Director Of Institutional Sales Name Role Phone Herbert Hair MD Primary Care Provider + [phone] Encounter Details Date Type Department Care Team (Late st Contact Info) Description 07/29/2023 8:45 AM EDT Lab [facility] [address] [place] [address] Cellulitis of breast Social History Tobacco Use Types Packs/Day Years [...] Description 09/18/2024 3:30 PM EST Office Visit [facility] HEMATOLOGY & ONCOLOGY [address]00 [facility] [address] [place] [address] Bre Crenshaw MD [address] [facility] [address] [place] [address] 12/31/2024 9:00 AM EDT Office Visit [facility] UROLOGY [address] [facility] [address] [place] [address] Oralia Saha APRN [address]60 [facility] [address] [place] [address] 05/12/2025 1:45 PM EDT Office Visit [facility] CARDIOLOGY [address] [facility] [address] [place] [phone] Obed Woodard MD [address] [facility] [address] [place] [address] documented as of this encounter Procedures Procedure Name Priority Date/Time Associated Diagnosis Comments CBC WITH AUTO DIFFERENTIAL STAT 07/29/2023 8:49 AM EDT Cellulitis of breast SEDIMENTATION RATE STAT 07/29/2023 8: 49 AM EDT Cellulitis of breast CBC AND DIFFERENTIAL STAT 07/29/2023 8:49 AM EDT Cellulitis of breast C-REACTIVE PROTEIN STAT 07/29/2023 8: 49 AM EDT Cellulitis of breast CK STAT 07/29/2023 8:49 AM EDT Cellulitis of breast COMPREHENSIVE METABOLIC PANEL STAT 07/29/2023 8:49 AM EDT Cellulitis of breast documented in this encounter Results * CBC Auto Differential (07/29/2023 8:49 AM EDT) WBC 4.49 3.40 - 10.80 10*3/mm3 07/29/2023 8:58 AM EDT [facility] RBC 3.96 3.77 - 5.28 10*6/mm3 07/29/2023 8:58 AM EDT [facility] Hemoglobin 12.4 12.0 - 15.9 g/dL 07/29/2023 8:58 AM EDT [facility] Hematocrit 37.0 34.0 - 46.6 % 07/29/2023 8:58 AM EDT [facility] MCV 93.4 79.0 - 97.0 fL 07/29/2023 8:58 AM EDT [facility] MCH 31.3 26.6 - 33.0 pg 07/[facility]23 [facility] MCHC 33.5 31.5 - 35.7 g/dL 07/29/2023 8:58 AM EDT [facility] RDW 12.6 12.3 - 15.4 % 07/29/2023 8:58 AM EDT [facility] RDW-SD 43.1 37.0 - 54.0 fl 07/29/2023 8:58 AM EDT [facility] MPV 9.7 6.0 - 12.0 fL 07/29/2023 8:58 AM EDT [facility] Platelets 296 140 - 450 10*3/mm3 07/29/2023 8:58 AM T [facility] Neutrophil % 49.5 42.7 - 76.0 % 07/29/2023 8:58 AM [facility] Lymphocyte % 39.9 19.6 - 45.3 % 07/29/2023 8:58 AM EDT [facility] Monocyte % 5.8 5.0 - 12.0 % 07/29/2023 8:58 AM [facility] Eosinophil % 4.0 0.3 - 6.2 % 07/29/2023 8:58 AM [facility] Basophil % 0.4 0.0 - 1.5 % 07/29/2023 8:58 AM [facility] Immature Grans % 0.4 0.0 - 0.5 % 07/29/2023 8:58 AM EDT [facility] Neutrophils, Absolute 2.22 1.70 - 7.00 10*3/mm3 07/29/2023 8:[facility] Lymphocytes, Absolute 1.79 0.70 - 3.10 10*3/mm3 07/29/2023 8:[facility] Monocytes, Absolute 0.26 0.10 - 0.90 10*3/mm3 07/29/2023 8:58 [facility] Eosinophils, Absolute 0.18 0.00 - 0.40 10*3/mm3 07/29/2023 8:58 AM EDT [facility] Basophils, Absolute 0.02 0.00 - 0.20 10*3/mm3 07/29/2023 8:58 AM EDT [facility] Immature Grans, Absolute 0.02 0.00 - 0.05 10*3/mm3 07/29/2023 8:58 AM EDT [facility] nRBC 0.0 0.0 - 0.2 /100 WBC 07/29/2023 8:58 AM EDT [facility] Blood Venipuncture / Unknown 07/29/2023 8:49 AM EDT 07/29/2023 8:49 AM EDT us Aman Walls MD LAB BLOOD ORDERABLES Final Result Performing Organization Address City/[facility]/ZIP Co de Phone Number [facility]
[address] [place] [address], * CK (07/29/2023 8:49 AM EDT) Creatine Kinase 64 20 - 180 U/L 07/29/2023 9:14 AM EDT [facility] Blood Venipuncture / Unknown 07/29/2023 8:49 AM EDT 07/29/2023 8:49 AM EDT Aman Walls MD LAB BLOOD ORDERABLES Final Result [facility]
[address] [place] [address], [place] [phone] * (ABNORMAL) C-reactive Protein (07/29/2023 8:49 AM EDT) C-Reactive Protein 0.84(H) 0.00 - 0.50 mg/dL 07/29/2023 9:14 AM EDT [facility] Blood Venipuncture / Unknown 07/29/2023 8:49 AM EDT 07/29/2023 8:49 AM EDT Aman Walls MD LAB BLOOD ORDERABLES Final Result Performing Organization Address City/[facility] Co de Phone Number [facility]
[address] [place] [address], * (ABNORMAL) Sedimentation Rate (07/29/2023 8:49 AM EDT) Sed Rate 26(H) 0 - 20 mm/hr 07/29/2023 9:09 AM EDT [facility] Blood Venipuncture / Unknown 07/29/2023 8:49 AM EDT 07/29/2023 8:49 AM EDT Aman Walls MD LAB BLOOD ORDERABLES Final Result Performing Organization Address [facility] Phone Number [facility]
[address] [place] [address], * (ABNORMAL) Comprehensive Metabolic Panel (07/29/2023 8:49 AM EDT) Glucose 162(H) 65 - 99 mg/dL 07/29/2023 9:14 AM EDT [facility] BUN 15 6 - 20 mg/dL 07/29/2023 9:14 AM EDT [facility] Creatinine 0.81 0.57 - 1.00 mg/dL 07/29/2023 9:14 AM EDT [facility] Sodium 141 136 - 145 mmol/L 07/29/2023 9:14 AM EDT [facility] Potassium 3.7 3.5 - 5.2 mmol/L 07/29/2023 9:14 AM EDT [facility] Comment:Slight hemolysis det ected by analyzer. Results may be affected. Chloride 103 98 - 107 mmol/L 07/29/2023 9:14 AM EDT [facility] CO2 28.0 22.0 - 29.0 mmol/L 07/29/2023 9:14 AM EDT [facility] Calcium 9.5 8.6 - 10.5 mg/dL 07/29/2023 9:14 AM T [facility] Total Protein 6.8 6.0 - 8.5 g/dL 07/29/2023 9:14 AM [facility] Albumin 4.0 3.5 - 5.2 g/dL 07/29/2023 9:14 AM EDT [facility] ALT (SGPT) 27 1 - 33 U/L 07/29/2023 9:14 AM T [facility] AST (SGOT) 13 1 - 32 U/L 07/29/2023 9:14 AM [facility] Alkaline Phosphatase 102 39 - 117 U/L 07/29/2023 9:14 AM [facility] Total Bilirubin <0.2 0.0 - 1.2 mg/dL 07/29/2023 9:14 AM [facility] Globulin 2.8 gm/dL 07/29/2023 9:14 AM [facility] Comment:Calculated Result A/G Ratio 1.4 g/dL 07/29/2023 9:14 AM [facility] BUN/Creatinine Ratio 18.5 7.0 - 25.0 07/29/2023 9:14 AM [facility] Anion Gap 10.0 5.0 - 15.0 mmol/L 07/29/2023 9:14 AM [facility] eGFR 89.1 >60.0 mL/min/1.7 3 07/29/2023 9:14 AM [facility] Blood Venipuncture / Unknown 07/29/2023 8:49 AM EDT 07/29/2023 8:49 AM T [facility] - 07/29/2023 9:14 AM EDT GFR Normal >60 Chronic Kidney Disease <60 Kidney Failure <15 Aman Walls MD LAB BLOOD ORDERABLES Final Result [facility]
[address] [place] [address], documented in this encounter Visit Diagnoses Diagnosis Cellulitis of breast Inflammatory disease of breast documented in this encounter Additional Health Concerns Infection Onset Date Last Indicated Resolved Time MRSA 07/20/2023 07/20/2023 documented as of this encounter Care Teams Director Of Institutional Sales Relationship Specialty Start Date End Date Herbert Hair MD [facility] [address] [place] [address] PCP - General Adolescent Medicine 03/03/22 documented as of this encounter
--- OUTSIDE RECORDS SUMMARY | 2024-08-17 15:49 | XMS_ITS | Encounter Summary ---
Author Organization [facility] Address [address] [place] [address] Care Team Providers Care Petroleum Refinery Laborer Name Role Phone Herbert Hair MD Primary Care Provider [phone] Encounter Details Date Type Department Care Team (Late st Contact Info) Description 07/16/2023 Telephone [facility] HEMATOLOGY & ONCOLOGY [address] [address] Bre Crenshaw MD [address] [place] [id number] Social History Tobacco Use Types Packs/Day Years [...] help finding or keeping work or a gideno b? Not on file 07/08/2023 Disabilities Answer [...] Telephone Encounter - Yanet Preston RN - 07/16/2023 11:01 AM EDT Patient called to ask if it was okay to proceed with cardiac stress test that is scheduled for . Dr. Woodard had ordered this and she has an echo that same afternoon. She just had her excision per Dr. SPARKS on Friday 07/13 and path is pending. I talked with Bria Jarvis aPRN and she said that patient can have the cardiac testing and she should see Dr. Crenshaw on Sunday to go over path results. Dr. SPARKS is out this week. I asked patient if she could come in at 3:15 07/18 and shesaid that she could. I asked scheduling to put her on the schedule. documented in this encounter Plan of Treatment Upcoming Encounters Date Type Department Care Team (Late st Contact Info) Description 09/18/2024 3:30 PM EST Office Visit [facility] HEMATOLOGY & ONCOLOGY [address] [facility] [address] [place] [address] Bre Crenshaw MD [address] [facility] [address] [place] [address] 12/31/2024 9:00 AM EDT Office Visit [facility] UROLOGY [address] [facility] [address] [place], [place] [phone] Oralia Saha APRN [address]60 [facility] [address] [place], [place] [phone] 05/12/2025 1:45 PM EDT Office Visit [facility] CARDIOLOGY [address] [facility] [address] [place] [address] Obed Woodard MD [address] [facility] [address] [place], [place] [id number] documented as of this encounter Visit Diagnoses Not on filedocumented in this encounter Care Teams Petroleum Refinery Laborer Relationship Specialty Start Date End Date Herbert Hair MD [address] [facility] [address] [place] [address] PCP - General Adolescent Medicine 03/03/22 documented as of this encounter
--- OUTSIDE RECORDS SUMMARY | 2024-08-17 15:49 | XMS_ITS | Encounter Summary ---
Author Organization [facility] Address [address] [place] [address] Care Team Providers Care Hair Boiler Operator Name Role Phone Herbert Hair MD Primary Care Provider + [phone] Reason for Referral * Diagnostic Imaging (Routine) - Closed Specialty Diagnoses / Procedures Referred By Nasrin hernandez Referred To Contact Diagnoses Malignant neoplasm of lower-inner quadrant of left breast in female, estrogen receptor positive Procedures Adult Transthoracic Echo Limited W/ Cont if Necessary Per Protocol Obed Woodard MD [address] [place] [address] [address] Phone: tel: fax: [address] [address] Phone: tel: Referral ID Status Reason Start Date Expiration Date Visits Re quested Visits Authorized [id number] Closed 06/05/2023 06/04/2024 1 1 Reason for Visit * Diagnostic Imaging (Routine) - Closed Specialty Diagnoses / Procedures Referred By Contac t Referred To Contact Diagnoses Malignant neoplasm of lower-inner quadrant of left breast in female, estrogen receptor positive Procedures Adult Transthoracic Echo Limited W/ Cont if Necessary Per Protocol Obed Woodard MD 1720 [facility] [address] [place] [address] Phone: tel: fax: [facility] [address] [place] [address] Phone: tel: Referral ID Status Reason Start Date Expiration Date Visits Re quested Visits Authorized [id number] Closed 06/05/2023 06/04/2024 1 1 Encounter Details Date Type Department Care Team (Latest Contact Info) Description 07/18/2023 10:11 AM EDT - 07/18/2023 11:59 PM EDT Hospital Encounter [facility] NONINVASIVE LAB [address] [facility] 3rd [place] [address] Malignant neoplasm of lower-inner quadrant of left breast in female, estrogen receptor positive Discharge Disposition: Home or Self Care Social [...] 3:30 PM EST Office Visit [facility] HEMATOLOGY & ONCOLOGY [address] [facility] [address] [place] [address] Bre Crenshaw MD [address] [facility] [address] [place] [address] 12/31/2024 9:00 AM EDT Office Visit [facility] UROLOGY [address] [facility] [address] [place] [address] Oralia Saha APRN [address]60 [facility] [address] [place] [address] 05/12/2025 1:45 PM EDT Office Visit [facility] CARDIOLOGY [address] [facility] [address] [place] [address] Obed Woodard MD 1720 [facility] [address] [place], [place] [phone] documented as of this encounter Procedures Procedure Name Priority Date/Time Associated Diagnosis Comments LIMITED 2D ECHO W/ STRAIN Routine 07/18/2023 10:51 AM EDT Malignant neoplasm of lower-inner quadrant of left breast in female, estrogen receptor positive documented in this encounter Results * LIMITED 2D ECHO W/ STRAIN (07/18/2023 10:51 AM EDT) EF(MOD-bp) 61.0 % LVIDd 3.4 cm LVIDs 2.40 cm IVSd 1.00 cm LVPWd 1.00 cm FS 29.4 % IVS/LVPW 1.00 cm ESV(cubed) 13.8 ml EDV(cubed) 39.3 ml LV mass(C)d 98.9 grams EDV(MOD-sp2) 54.7 ml EDV(MOD-sp4) 67.1 ml ESV(MOD-sp2) 24.2 ml ESV(MOD-sp4) 22.4 ml SV(MOD-sp2) 30.5 ml SV(MOD-sp4) 44.7 ml EF(MOD-sp2) 55.8 % EF(MOD-sp4) 66.6 % LV GLOBAL STRAIN -22.8 % Anatomical Region Laterality Modality Ultrasound Narrative 07/18/2023 11:49 AM EDT ?Left ventricular systolic function is normal. Calculated left ventricular EF = 61% ?Global longitudinal LV strain (GLS) = -22.8% ?There is no evidence of pericardial effusion Left Ventricle Left ventricular systolic function is normal. Calculated left ventricular EF = 61% Global longitudinal LV strain (GLS) = -22.8%. Normal left ventricular cavity size and wall thickness noted. Right Ventricle Normal right ventricular cavity size and systolic function noted. Pericardium There is no evidence of pericardial effusion. . Study Quality The study is technically adequate for diagnosis. us Obed Woodard MD CV ECHO ORDERABLES Vanda l Result documented in this encounter Visit Diagnoses Diagnosis Malignant neoplasm of lower-inner quadrant of left breast in female, estrogen receptor positive documented in this encounter Care Teams Hair Boiler Operator Relationship Specialty Start Date End Date Herbert Hair MD [address] [place] [facility] [address] [facility] [address] PCP - General Adolescent Medicine 03/03/22 documented as of this encounter
--- OUTSIDE RECORDS SUMMARY | 2024-08-17 15:49 | XMS_ITS | Encounter Summary ---
Author Organization [facility] Address [address] [place] [address] Care Team Providers Care Tape Edge Machine Operator Name Role Phone Herbert Hair MD Primary Care Provider [phone] Encounter Details Date Type Department Care Team (Late st Contact Info) Description 07/09/2023 Telephone [facility] [address] [place] [address] Mimi Gonzalez RN Social History Tobacco Use Types Packs/Day [...] encounter Miscellaneous Notes * Telephone Encounter - Mimi Gonzalez RN - 07/09/2023 3:40 PM EDT Referring provider notified via DisplayLink basket message cytology returned as cancer and patient will benotified. Patient notified of cytology results and recommendation. Verbalizes understanding. Denies discomfort.. Denies signs and symptoms of infection. Patient established with Dr Mehrdad Bell. She has an appointment with Dr. Karissa Crenshaw Sunday, who will follow-up with her care. Encouraged patient to call back with any questions. documented in this encounter Plan of Treatment Upcoming Encounters Date Type Department Care Team (Late st Contact Info) Description 09/18/2024 3:30 PM EST Office Visit [facility] HEMATOLOGY & ONCOLOGY [address] [facility] [address] [place] [phone] Bre Crenshaw MD 1700 [facility] [address] [place] [address] 12/31/2024 9:00 AM EDT Office Visit [facility] UROLOGY [address] [facility] [address] [place] [address] Fabianallyssa OraliaDWAYNE 1760 [facility] [address] [place], [place] [id number] 05/12/2025 1:45 PM EDT Office Visit [facility] CARDIOLOGY 17[address] [facility] [address] [place] [address] Obed Woodard MD [address] [facility] [address] [place], [place] [id number] documented as of this encounter Visit Diagnoses Not on filedocumented in this encounter Care Teams Tape Edge Machine Operator Relationship Specialty Start Date End Date Herbert Hair MD 1210 [facility] [address] [place] [address] PCP - General Adolescent Medicine 03/03/22 documented as of this encounter
--- OUTSIDE RECORDS SUMMARY | 2024-08-17 15:49 | XMS_ITS | Encounter Summary ---
Author Organization [facility] Address [address] [place] [address] Care Team Providers Care Geological Engineer Name Role Phone Herbert Hair MD Primary Care Provider [phone] Reason for Referral * Diagnostic Imaging (Routine) - Closed Specialty Diagnoses / Procedures Referred By Contgualberto hernandez Referred To Contact Radiology Diagnoses Malignant neoplasm of lower-inner quadrant of left breast in female, estrogen receptor positive Subcutaneous nodule of breast Procedures US Fine Needle Aspiration BX 1ST Lesion Hilda Martinez, CLINICAL SOCIAL WORK THERAPIST [address] [address] Phone: tel: fax: Referral ID Status Reason Start Date Expiration Date Visits Re quested Visits Authorized [id number] Closed 07/04/2023 07/03/2024 1 1 Reason for Visit * Diagnostic Imaging (Routine) - Closed Specialty Diagnoses / Procedures Referred By Contac t Referred To Contact Radiology Diagnoses Malignant neoplasm of lower-inner quadrant of left breast in female, estrogen receptor positive Subcutaneous nodule of breast Procedures US Fine Needle Aspiration BX 1ST Lesion Hilda Martinez, CLINICAL SOCIAL WORK THERAPIST 1770 [facility] [address] [place] [address] Phone: tel: fax: Referral ID Status Reason Start Date Expiration Date Visits Re quested Visits Authorized [id number] Closed 07/04/2023 07/03/2024 1 1 Encounter Details Date Type Department Care Team (Latest Contact Info) Description 07/05/2023 8:24 AM EDT - 07/05/2023 11:59 PM EDT Hospital Encounter [facility] BREAST CENTER 1760 [facility] 1760 [facility] [address] [place] [address] Malignant neoplasm of lower-inner quadrant [...] [facility] HEMATOLOGY & ONCOLOGY 1700 [facility] [address] [place] [address] Bre Crenshaw MD 1700 [facility] [address] [place] [address] 12/31/2024 9:00 AM EDT Office Visit [facility] UROLOGY 1760 [facility] [address] [place] [address] Oralia Saha APRN 1760 [facility] [address] [place], [place] [phone] 05/12/2025 1:45 PM EDT Office Visit [facility] CARDIOLOGY 1720 [facility] [address] [place] [phone] Obed Woodard MD 1720 [facility] [address] [place], [place] [phone] documented as of this encounter Procedures Procedure Name Priority Date/Time Associated Diagnosis Comments US FINE NEEDLE ASPIRATION BX 1ST LESION STAT 07/05/2023 10:06 AM EDT Malignant neoplasm of lower-inner quadrant of left breast in female, estrogen receptor positive Subcutaneous nodule of breast NON-EYEGLASS MAKER CYTOLOGY, [facility] ([place], [place], [place], [place]) Routine 07/05/2023 10:00 AM EDT documented in this encounter Results * US Fine Needle Aspiration BX 1st Lesion (07/05/2023 10:06 AM EDT) Anatomical Region Laterality Modality Ultrasound 07/05/2023 12:1 1 PM EDT Impressions 07/09/2023 12:32 PM EDT Fine needle aspiration of left breast. Pathology for the patient's recent fine-needle aspiration demonstrates rare malignant epithelial groups present. This is considered concordant with the imaging findings. Oncological/surgical follow-up is recommended. Results and recommendations will be communicated to the patient by our breast care nurse. This report was finalized on 07/09/2023 12:32 PM by Corrine Redd MD. Narrative 07/09/2023 12:32 PM EDT LEFT BREAST ULTRASOUND GUIDED FNA CLINICAL INDICATION: Patient is status post mastectomy with a new palpable lesion which involves both the skin and superficial tissues. Targeted ultrasound demonstrated a 0.8 cm hypoechoic lesion PROCEDURE: ??The procedure was explained to the patient and acknowledgement of understanding was made. ??A time out was observed to verify patient's identity and correct location of the breast abnormality. ??Written consent was obtained. The presence of the mass was confirmed with a 12 MHz linear transducer. A lateral approach was chosen. ??The breast was prepped and draped in the usual sterile fashion. ??A 1% buffered Lidocaine solution without epinephrine was used for local anesthesia. A series of four 25 gauge needles and a single 22-gauge needle attached to a syringe were placed into the lesion under direct sonographic guidance. A total of 5 aspirations were then performed. ??The aspirations were placed in the appropriate fixative solution and transported to the pathology department. Upon completion of the procedure, the overlying skin was cleaned with hydrogen peroxide and the biopsy site bandaged. Corrine Redd MD [facility] ORDER[facility] Final Result * NON-EYEGLASS MAKER CYTOLOGY, [facility] ([facility],[place]) (07/05/2023 10:00 AM EDT) Reference Lab Report [facility] [address] ?[place], [place] ??[address] or [phone] Heladio Daly M.D., Rag Cutting Machine Tender PATIENT NAME ?LABORATORY NO. [id number] ??AUGUSTINE BROWN. ? [id number] ? AGE ?SEX ?? SSN ? CLIENT REF # [facility] ? 48 ? 1975 F ? [id number] [address] ?REQUESTING M.D. ?? ATTENDING M.D.. ?? [place] [address] ?HILDA MARTINEZ DATE COLLECTED ?DATE RECEIVED ? DATE REPORTED 07/05/2023 ?07/05/2023 ?07/09/2023 CORRECTION PRESENT CORRECTION: LEFT CHEST WALL, FNA: Atypical -atypical epithelial groups with marked acute inflammation, see comment Comment: The diagnosis is revised to reflect a more specific specimen site and correlation with the corresponding biopsy. ??The biopsy shows an inflammatory nodule with atypical skin adnexal structures, most consistent with inflammatory atypia. ??The previous tumor has a different morphology, therefore, this FNA has features which are now believed to represent inflammatory atypia rather than neoplastic atypia. ??Seen in consultation with Drs. Lezama and Wong. ??Case discussed with Dr. SPARKS by Dr Lezama 07/18/23. DIAGNOSIS: BREAST, FNA, LEFT: ??Malignant MICROSCOPIC DESCRIPTION: Rare malignant epithelial groups present. Professional interpretation rendered by Jordan Esqueda M.D., F.C.A.P. at [email or web address] [email or web address], [address] [place] [address]. CLINICAL HISTORY: Malignant neoplasm of lower-inner quadrant of left breast in female, estrogen receptor positive Subcutaneous nodule of breast Left breast palpable irregular hypoechoic lesions involving skin/superficial tissue SPECIMENS SUBMITTED: BREAST, FNA, LEFT GROSS SPECIMEN DESCRIPTION: 30ccs of clear colorless fluid with extremely scant visible sediment received in fixative REVIEWED, DIAGNOSED AND ELECTRONICALLY SIGNED BY: Jordan Esqueda M.D., F.C.A.P. CPT CODES: ??[id number] 07/18/2023 3:32 PM EDT [facility] Body Fluid Collection / Unknown 07/05/2023 10:00 AM EDT 07/05/2023 10:39 AM EDT Hilda Matrinez CLINICAL SOCIAL WORK THERAPIST PATHOLOGY/CYTOLOGY ORDERAB LES Edited Result - Final [facility]
[address] [place] [address], documented in this encounter Visit Diagnoses Diagnosis Malignant neoplasm of lower-inner quadrant of left breast in female, estrogen receptor positive Subcutaneous nodule of breast documented in this encounter Administered Medications Inactive Administered Medications - up to 3 most recent administrations Medication Order MAR Action Action Date Dose Rate Site lidocaine (XYLOCAINE) 1 % injection 5 mL 5 mL, Injection, Once, On Bina 07/05/23 at 0848, For 1 dose Given 07/05/2023 9:46 AM EDT 1 mL documented in this encounter Care Teams Geological Engineer Relationship Specialty Start Date End Date Herbert Hair MD [facility] [address] [place] [address] PCP - General Adolescent Medicine 03/03/22 documented as of this encounter
--- OUTSIDE RECORDS SUMMARY | 2024-08-17 15:49 | XMS_ITS | Encounter Summary ---
Author Organization [facility] Address [address] [place] [address] Care Team Providers Care Leasing Associate Name Role Phone Herbert Hair MD Primary Care Provider [phone] Reason for Visit * MRI/CAT/PET Scan (Routine) - Closed Specialty Diagnoses / Procedures Referred By Nasrin hernandez Referred To Contact Radiology Diagnoses Malignant neoplasm of lower-inner quadrant of left breast in female, estrogen receptor positive Subcutaneous nodule of breast Procedures NM Bone Scan Whole Body Hilda Jarvis, CLEARING TUB WORKER 1700 [facility] [address] [place] [address] Phone: tel: fax: [facility] [place] [facility]UC[facility]AR MEDICINE [address] [place] [address] Phone: tel: Referral ID Status Reason Start Date Expiration Date Visits Re quested Visits Authorized [id number] Closed 06/26/2023 06/25/2024 2 2 Encounter Details Date Type Department Care Team (Latest Contact Info) Description 07/05/2023 2:03 PM EDT - 07/05/2023 11:59 PM EDT Hospital Encounter [facility] [place] [facility] [address] [place] [phone] Discharge Disposition: Home or Self Care Social [...] PM EST Office Visit [facility] HEMATOLOGY & ONCOLOGY 1700 [facility] [address] [place] [address] Bre Crenshaw MD 1700 [facility] [address] [place] [address] 12/31/2024 9:00 AM EDT Office Visit [facility] UROLOGY 1760 [facility] [address] [place] [address] Oralia Saha APRN [address] [address] 05/12/2025 1:45 PM EDT Office Visit [facility] CARDIOLOGY 1720 [facility] [address] [place] [address] Obed Woodard MD [address]20 [facility] [address] [place] [address] documented as of this encounter Procedures Procedure Name Priority Date/Time Associated Diagnosis Comments NM BONE SCAN WHOLE BODY Routine 07/05/2023 2:35 PM EDT Malignant neoplasm of lower-inner quadrant of left breast in female, estrogen receptor positive Subcutaneous nodule of breast documented in this encounter Results * NM Bone Scan Whole Body (07/05/2023 2:35 PM EDT) Anatomical Region Laterality Modality Body N/A Nuclear Medicine 07/05/2023 6:27 PM EDT Impressions 07/05/2023 6:33 PM EDT Lower extremity uptake typical of DJD as noted. Negative nuclear medicine bone scan for metastatic disease. Electronically Signed: Gustavo Viveros MD 07/05/2023 6:33 PM EDT Workstation ID: [id number] Narrative 07/05/2023 6:33 PM EDT DATE OF EXAM: 07/05/2023 10:20 AM EDT PROCEDURE: NM BONE SCAN WHOLE BODY INDICATIONS: assess for cancer breast cancer restaging COMPARISON: No prior nuclear medicine bone scan. Previous 05/30/2022 whole-body PET scan, and 07/05/[address] scans TECHNIQUE: The patient received 26.3 mCi of technetium 99m MDP intravenously and 3 hour delayed anterior and posterior whole body bone images were obtained. FINDINGS: By report, today's CT scans are negative for metastatic disease. Whole-body bone scan images are consistent with this, with no evidence of increased uptake or abnormally photopenic areas suspicious for metastatic disease. There is moderate multifocal uptake in the feet, specifically the heels, lateral midfoot regions, and first MTP joints, typical of DJD, and evidence of mild bilateral patellofemoral DJD. Scan otherwise appears unremarkable. Both kidneys are seen to function. Procedure Note Gustavo Viveros MD - 07/05/2023 DATE OF EXAM: 07/05/2023 10:20 AM EDT PROCEDURE: NM BONE SCAN WHOLE BODY INDICATIONS: assess for cancer breast cancer restaging COMPARISON: No prior nuclear medicine bone scan. Previous 05/30/2022whole-body PET scan, and 07/05/[address] scans TECHNIQUE: The patient received 26.3 mCi of technetium 99m MDPintravenously and 3 hour delayed anterior and posterior whole body boneimages were obtained. FINDINGS: By report, today's CT scans are negative for metastatic disease. Whole-body bone scan images are consistent with this, with no evidence ofincreased uptake or abnormally photopenic areas suspicious for metastaticdisease. There is moderate multifocal uptake in the feet, specifically theheels, lateral midfoot regions, and first MTP joints, typical of DJD, and evidence of mild bilateralpatellofemoral DJD. Scan otherwise appears unremarkable. Both kidneys areseen to function. IMPRESSION: Lower extremity uptake typical of DJD as noted. Negative nuclear medicinebone scan for metastatic disease. Electronically Signed: Gustavo Viveros MD 07/05/2023 6:33 PM EDT Workstation ID: [id number] Hilda Jarivs CLEARING TUB WORKER IMG NM ORDERABLES Final Re sult documented in this encounter Visit Diagnoses Not on filedocumented in this encounter Care Teams Leasing Associate Relationship Specialty Start Date End Date Herbert Hair MD 1210 [place] [facility] [address] [place] [address] PCP - General Adolescent Medicine 03/03/22 documented as of this encounter
--- OUTSIDE RECORDS SUMMARY | 2024-08-17 15:49 | XMS_ITS | Encounter Summary ---
Author Organization [facility] Address [address] [place] [address] Care Team Providers Care Data Administrator Name Role Phone Herbert Hair MD Primary Care Provider Encounter Details Date Type Department Care Team (Late st Contact Info) Description 07/18/2023 3:15 PM EDT Office Visit [facility] HEMATOLOGY & ONCOLOGY [address] [phone] Bre Crenshaw MD 1700 [place] [address] Malignant neoplasm of lower-inner quadrant of left [...] Sign Reading Time Taken Comments Blood Pressure 112/76 07/18/2023 2:44 PM EDT Pulse 91 07/18/2023 2:44 PM EDT Temperature - - Respiratory Rate - - Oxygen Saturation - - Inhaled Oxygen Concentration - - Weight 89.8 kg (198 lb) 07/18/2023 2:44 PM EDT Height 157.5 cm (5' 2 ) 07/18/2023 2:44 PM EDT Body Mass Index 36.21 07/18/2023 2:44 PM EDT documented in this encounter Progress Notes * Bre Crenshaw MD - 07/18/2023 3:15 PM EDT PROBLEM LIST: 1. [id number] ER+ (90%), [place]+ (10%), Her2 negative (1+) [...] been on anastrozole since 04/11/2023. She is here for follow-up after the recent excisional biopsy of the chest wall nodule. She had a cardiac stress test earlier today. Objective BP 112/76 Pulse 91 Ht 157.5 cm (62 ) Wt 89.8 kg (198 lb) LMP (LMP Unknown) BMI 36.21 kg/m?? There were no vitals filed for this visit. ECOG score: 0 General: well appearing female in no acute distress Neuro: alert and oriented Lymphadenopathy: No cervical, supraclavicular or axillary lymphadenopathy noted Extremeties: no lower extremity edema Skin: no lesions, bruising, or petechiae. Psych: mood and affect appropriate RECENT LABS: Lab Results Component Value Date WBC 5.18 07/04/2023 HGB 12.9 07/04/2023 HCT 38.0 07/04/2023 MCV 92.0 07/04/2023 PLT 212 07/04/2023 Lab Results Component Value Date GLUCOSE 101 (H) 07/04/2023 BUN 13 07/04/2023 CREATININE 0.73 07/04/2023 BCR 17.8 07/04/2023 K 3.6 07/04/2023 CO2 28.0 07/04/2023 CALCIUM 9.5 07/04/2023 ALBUMIN 4.5 07/04/2023 AST 16 07/04/2023 ALT 23 07/04/2023 ASSESSMENT AND PLAN: Leydi Brown is a 48 y.o. female with a T2 N1 M0 ER positive [place] positive HER2 negative invasive carcinoma of the left breast. I spoke with the pathologist and the pathology results from the chest wall excision show only inflammatory cells. They have reviewed the previous biopsy and feel that the changes noted they are were also due to inflammation and there is no evidence of malignancy. I reviewed these results with Leydi. She started tamoxifen 12/07/2022. Tamoxifen was changed to anastrozole due to intolerance on 04/11/2023. She is tolerating the anastrozole relatively well, but is having some arthralgias. We will continue anastrozole. Anxiety: Continue 30 mg of buspirone as needed. Cardiac risk: followed by cardiology. Stress test done earlier today. Lymphedema left upper extremity: Continue working with occupational therapy and wearing compressionsleeve. Bone density scan 05/14/2023 was normal. We will repeat bone density scan May 2025. Follow-up in 3 months with labs. Total time of patient care on day of service including time prior to, face to face with patient, and following visit spent in reviewing records, lab results, imaging studies, discussion with patient,and documentation/charting was > 40 minutes. Bre Crenshaw MD [facility] Hematology and Oncology 07/18/2023 and continue CC: documented in this encounter Plan of Treatment Upcoming Encounters Date Type Department Care Team (Late st Contact Info) Description 09/18/2024 3:30 PM EST Office Visit [facility] HEMATOLOGY & ONCOLOGY [address] [facility] [address] [place] [address] Bre Crenshaw MD [address] [facility] [address] [place] [address] 12/31/2024 9:00 AM EDT Office Visit [facility] UROLOGY [address] [facility] [address] [place] [address] Oralia Saha APRN 1760 [facility] [address] [place] [address] 05/12/2025 1:45 PM EDT Office Visit [facility] CARDIOLOGY [address] [facility] [address] [place] [address] Obed Woodard MD [address]20 [facility] [address] [place] [address] documented as of this encounter Results * (ABNORMAL) Comprehensive Metabolic Panel (01/10/2024 2:55 PM EDT) Glucose 149(H) 65 - 99 mg/dL 01/10/2024 4:03 PM EDT [facility] BUN 13 6 - 20 mg/dL 01/10/2024 4:03 PM EDT [facility] Creatinine 0.86 0.57 - 1.00 mg/dL 01/10/2024 4:03 PM EDT [facility] Sodium 143 136 - 145 mmol/L 01/10/2024 4:03 PM EDT [facility] Potassium 3.1(L) 3.5 - 5.2 mmol/L 01/10/2024 4:03 PM EDT [facility] Comment:Slight hemolysis det ected by analyzer. Result may be falsely elevated. Chloride 101 98 - 107 mmol/L 01/10/2024 4:03 PM EDT [facility] CO2 31.0(H) 22.0 - 29.0 mmol/L 01/10/2024 4:03 PM EDT [facility] Calcium 8.8 8.6 - 10.5 mg/dL 01/10/2024 4:03 PM EDT [facility] Total Protein 7.2 6.0 - 8.5 g/dL 01/10/2024 4:03 PM EDT [facility] Albumin 4.2 3.5 - 5.2 g/dL 01/10[facility]2024 [facility] ALT (SGPT) 17 1 - 33 U/L 01/10/2024 4:03 PM EDT [facility] AST (SGOT) 16 1 - 32 U/L 01/10/2024 4:03 PM EDT [facility] Alkaline Phosphatase 85 39 - 117 U/L 01/10/2024 4:03 PM EDT [facility] Total Bilirubin 0.2 0.0 - 1.2 mg/dL 01/10/2024 4:03 PM EDT [facility] Globulin 3.0 gm/dL 01/10/2024 4:03 PM EDT [facility] Comment:Calculated Result A/G Ratio 1.4 g/dL 01/10/2024 4:03 PM EDT [facility] BUN/Creatinine Ratio 15.1 7.0 - 25.0 01/10/2024 4:03 PM EDT [facility] Anion Gap 11.0 5.0 - 15.0 mmol/L 01/10/2024 4:03 PM EDT [facility] eGFR 82.9 >60.0 mL/min/1.7 3 01/10/2024 4:03 PM EDT [facility] Blood Venipuncture / Unknown 01/10/2024 2:55 PM EDT 01/10/2024 2:55 PM EDT Narrative [facility] - 01/10/2024 4:03 PM EDT GFR Normal >60 Chronic Kidney Disease <60 Kidney Failure <15 Bre Crenshaw MD LAB BLOOD ORDERABLES Final Resul t [facility]
[address] [place] [address], documented in this encounter Visit Diagnoses Diagnosis Malignant neoplasm of lower-inner quadrant of left breast in female, estrogen receptor positive- Primary documented in this encounter Care Teams Data Administrator Relationship Specialty Start Date End Date Herbert Hair MD [facility] [address] [place] [address] PCP - General Adolescent Medicine 03/03/22 documented as of this encounter
--- OUTSIDE RECORDS SUMMARY | 2024-08-17 15:49 | XMS_ITS | Encounter Summary ---
Author Organization [facility] Address [address] [place] [address] Care Team Providers Care Dry Yard Worker Name Role Phone Herbert Hair MD Primary Care Provider [phone] Reason for Visit * Reason Onset Date Comments MICHELLE-PATHOLOGY INFO 07/09/2023 INGRID-PHONE CALL 07/09/2023 Encounter Details Date Type Department Care Team (Late st Contact Info) Description 07/09/2023 Telephone [facility] HEMATOLOGY & ONCOLOGY [address] [facility] [address] [place] [phone] Hilda Jarvis, GAMEROOM TECHNICIAN [address] [facility] [address] [place] [id number] MICHELLE-PATHOLOGY INFO; INGRID-PHONE CALL Social History Tobacco Use Types Packs/Day Years [...] Telephone Encounter - Yanet Preston RN - 07/09/2023 4:30 PM EDT I called patient and Dr. Crenshaw had just called her. We will cancel appt with Dr Crenshaw and we willsee if Dr. POTTER can see patient to surgically remove the lesion. I sent message to Dr. Potter's office and will notify patient tomorrow when I hear from them about appt. Patient verbalized understanding. * Telephone Encounter - Floresita Donaldson - 07/09/2023 3:45 PM EDT Patient called she is very upset just got off the phone with Breast imaging, and got the results ofher biopsy. She wants to discuss this before her appointment on Sunday. * Telephone Encounter - Ant Bernstein RegSched Rep - 07/09/2023 9:51 AM EDT Caller: JOSE FRANCISCO Relationship: PATHOLOGY [facility] Best call back number: [phone] What is the best time to reach you: ANY Who are you requesting to speak with (clinical staff, provider, specific staff member): CLINICAL What was the call regarding: JOSE FRANCISCO FROM [facility] CALLED TO LET DWAYNE FELDMAN AND DOCTOR INGRID KNOW THAT THE US GLORIA GUIDE FNA BX 1ST LESION FROM 07/05/23 HAS COME BACK MALIGNANT. Is it okay if the provider responds through MyChart: NO documented in this encounter Plan of Treatment Upcoming Encounters Date Type Department Care Team (Late st Contact Info) Description 09/18/2024 3:30 PM EST Office Visit [facility] HEMATOLOGY & ONCOLOGY [address] [facility] [address] [place] [address] Bre Crenshaw MD [address] [facility] [address] [place] [address] 12/31/2024 9:00 AM EDT Office Visit [facility] UROLOGY [address] [facility] [address] [place] [address] Oralia Saah APRN [address] [facility] [address] [place] [address] 05/12/2025 1:45 PM EDT Office Visit [facility] CARDIOLOGY [address] [facility] [address] [place] [phone] Obed Woodard MD [address] [place] [address] documented as of this encounter Visit Diagnoses Not on filedocumented in this encounter Care Teams Dry Yard Worker Relationship Specialty Start Date End Date Herbert Hair MD [address] [facility] [address] [place] [address] PCP - General Adolescent Medicine 03/03/22 documented as of this encounter
--- OUTSIDE RECORDS SUMMARY | 2024-08-17 15:49 | XMS_ITS | Encounter Summary ---
Author Organization [facility] Address [address] [place] [address] Care Team Providers Care Product Marketing Coordinator Name Role Phone Herbert Hair MD Primary Care Provider [phone] Reason for Referral * Cardiac Stress Testing (Routine) - Closed Specialty Diagnoses / Procedures [facility] Referred To Contact Diagnoses Chronic chest pain with low to moderate risk for CAD Procedures Stress Test With Myocardial Perfusion One Day Obed Woodard MD [address] [place] [address] [place] [address] Phone: tel: fax: [address] [address] Phone: tel: Referral ID Status Reason Start Date Expiration Date Visits Re quested Visits Authorized [id number] Closed 06/05/2023 06/04/2024 4 4 Reason for Visit * Cardiac Stress Testing (Routine) - Closed Specialty Diagnoses / Procedures [facility] Referred To Contact Diagnoses Chronic chest pain with low to moderate risk for CAD Procedures Stress Test With Myocardial Perfusion One Day Obed Woodard MD [address] [facility] [address] [place] [address] Phone: tel: fax: [facility] [address] [place] [address] Phone: tel: Referral ID Status Reason Start Date Expiration Date Visits Re quested Visits Authorized [id number] Closed 06/05/2023 06/04/2024 4 4 Encounter Details Date Type Department Care Team (Latest Contact Info) Description 07/18/2023 8:07 AM EDT - 07/18/2023 11:59 PM EDT Hospital Encounter [facility] CARDIOVASCULAR LAB [address] [facility] 3rd [place] [address] Chronic chest pain with low to moderate risk for CAD Discharge Disposition: Home or Self Care Social [...] Time Taken Comments Blood Pressure 112/76 07/18/2023 9:54 AM EDT Pulse 91 07/18/2023 9:50 AM EDT Temperature - - Respiratory Rate - - Oxygen Saturation - - Inhaled Oxygen Concentration - - Weight 89.8 kg (197 lb 15.6 oz) 07/18/2023 9:50 AM EDT Height 157.5 cm (5' 2.01 ) 07/18/2023 9:50 AM ED T Body Mass Index 36.2 07/18/2023 9:50 AM EDT documented in this encounter Medications at Time [...] Description 09/18/2024 3:30 PM EST Office Visit [facility] HEMATOLOGY & ONCOLOGY [address] [facility] [address] [place] [phone] Bre Crenshaw MD [address] [facility] [address] [place] [address] 12/31/2024 9:00 AM EDT Office Visit [facility] UROLOGY [address] [facility] [address] [place] [address] Oralia Saha APRN [address] [facility] [address] [place], [place] [id number] 05/12/2025 1:45 PM EDT Office Visit [facility] CARDIOLOGY [address] [facility] [address] [place] [address] Obed Woodard MD [address] [facility] [address] [place] [address] documented as of this encounter Procedures Procedure Name Priority Date/Time Associated Diagnosis Comments STRESS TEST, EXERCISE WITH MYOCARDIAL PERFUSION SPECT (MULTI STUDY) Routine 07/18/2023 10:14 AM EDT Chronic chest pain with low to moderate risk for CAD documented in this encounter Results * STRESS TEST, EXERCISE WITH MYOCARDIAL PERFUSION SPECT (MULTI STUDY) (07/18/2023 10:14 AM EDT) CV STRESS PROTOCOL 1 Yony Stage 1 1.0 Duration Min Stage 1 3 Duration Sec Stage 1 0 Grade Stage 1 10 Speed Stage 1 1.7 BH CV STRESS METS STAGE 1 5.0 O2 sat rest 100 % Target HR (85%) 145 bpm Max. Pred. HR (100%) 171 bpm HR Stage 1 146 BP Stage 1 132/78 O2 Stage 1 93 Stage 2 2.0 HR Stage 2 157 O2 Stage 2 98 Duration Min Stage 2 0 Duration Sec Stage 2 52 Grade Stage 2 12 Speed Stage 2 2.5 BH CV STRESS METS STAGE 2 7.5 Baseline HR 90 bpm Baseline BP 122/76 mmHg Peak HR 162 bpm Peak BP 132/78 mmHg O2 sat peak 93 % Recovery HR 107 bpm Recovery BP 124/76 mmHg Recovery O2 99 % Percent Max Pred HR 94.74 % Exercise duration (min) 3 min Exercise duration (sec) 52 sec Estimated workload 5.2 METS Percent Target HR 111 % BH CV REST NUCLEAR ISOTOPE DOSE 9.8 mCi BH CV STRESS NUCLEAR ISOTOPE DOSE 33.0 mCi Nuc Stress EF 83 % Anatomical Region Laterality Modality Nuclear Medicine Narrative 07/18/2023 1:09 PM EDT ?Patient denied chest pain with exercise ?Expected exercise duration = 8:10. Actual exercise duration = 3:52. HORACIO (+45). ??Patient stopped secondary to shortness of breath and fatigue ?There were no ischemic EKG changes ?Myocardial perfusion imaging indicates a normal myocardial perfusion study with no evidence of ischemia. ?Left ventricular ejection fraction is hyperdynamic (Calculated EF > 70%). ?No significant coronary artery calcification ?Impressions are consistent with a low risk study. ??No evidence of ischemia, there was impaired exercise tolerance. Study Impression Myocardial perfusion imaging indicates a normal myocardial perfusion study with no evidence of ischemia. Impressions are consistent with a low risk study. Rest Perfusion Defect 1 No rest myocardial perfusion defect noted. Stress Perfusion Defect 1 No stress myocardial perfusion defect noted. Nuclear Study Description A 1-day rest/stress protocol myocardial perfusion imaging study was performed. A 24 G peripheral IV was started in the right antecubital fossa. While at rest, the patient was injected intravenously with 9.8 mCi of technetium sestamibi at 08:20 EDT. Rest imaging was performed approximately 60 minutes after the resting injection. While at peak stress, the patient was injected intravenously with 33.0 mCi of technetium sestamibi at 10:00 EDT. Stress imaging was performed approximately 75 minutes after the injection. The total amount of radiation received in the study is about 12.91 mSv. Rest ECG Baseline ECG of normal sinus rhythm noted at rest. PVCs noted. Stress ECG Stress ECG rhythm of sinus tachycardia noted. Non-specific ST-T wave changes noted during stress. There were no arrhythmias during stress. Ventricle Size / Description Left ventricular ejection fraction is hyperdynamic (Calculated EF > 70%). Stress Description A stress test was performed following the Yony protocol. The patient achieved the target heart rate. The patient requested the test to be stopped. The test was stopped because the clinician observed fatigue. The patient reported shortness of breath during the stress test. fatigue Onset of symptoms occurred at stage 2 of the protocol. Recovery ECG During recovery, the patient complained of no significant symptoms following stress. Sinus tachycardia was noted during recovery. Non-specific ST-T wave changes noted on ECG during recovery stage. There were no arrhythmias during recovery. Test Servicenow Administrator ECG [place] Perfusion Scoring Stress Summed Score: 0 Percent Normal: 0.00% The left ventricular perfusion is normal. us Obed Woodard MD CV STRESS ORDERABLES Fi nal Result documented in this encounter Visit Diagnoses Diagnosis Chronic chest pain with low to moderate risk for CAD documented in this encounter Administered Medications Inactive Administered Medications - up to 3 most recent administrations Medication Order MAR Action Action Date Dose Rate Site technetium sestamibi (CARDIOLITE) injection 1 dose 1 dose, Intravenous, Once in Imaging, On Sun07/18/23 at 0818, For 1 dose, Millicuries: 9.8 Given 07/18/2023 8:21 AM EDT 1 dose technetium sestamibi (CARDIOLITE) injection 1 dose 1 dose, Intravenous, Once in Imaging, On Sun07/18/23 at 0822, For 1 dose, Millicuries: 9.8 Given 07/18/2023 10:00 AM EDT 1 dose documented in this encounter Care Teams Product Marketing Coordinator Relationship Specialty Start Date End Date Herbert Hair MD [address] [facility] [address] [facility] [place] [address] PCP - General Adolescent Medicine 03/03/22 documented as of this encounter
--- OUTSIDE RECORDS SUMMARY | 2024-08-17 15:49 | XMS_ITS | Encounter Summary ---
Author Organization [facility] Address [address] [place] [address] Care Team Providers Care Ladle Filler Name Role Phone Herbert Hair MD Primary Care Provider Encounter Details Date Type Department Care Team (Late st Contact Info) Description 07/18/2023 Telephone [facility] CARDIOLOGY [address] [facility] [address] [place] [address] Obed Woodard MD [address] [facility] [address] [place] [address] Social History Tobacco Use Types [...] encounter Miscellaneous Notes * Telephone Encounter - Ambar Meyer RN - 07/18/2023 1:24 PM EDT Called patient regarding NSK results and recommendations above. All questions answered at this time. Patient verbalizes understanding and agreeable to plan. * Telephone Encounter - Ambar Meyer RN - 07/18/2023 1:22 PM EDT ----- Message from Obed Woodard MD sent at 07/18/2023 1:21 PM EDT ----- Patient's stress test did not show signs of heart artery blockages and the pumping function of her heart is normal on this in the echo. No signs of calcium buildup in the heart arteries. Overall goodnews on both test. documented in this encounter Plan of Treatment Upcoming Encounters Date Type Department Care Team (Late st Contact Info) Description 09/18/2024 3:30 PM EST Office Visit [facility] HEMATOLOGY & ONCOLOGY [address] [facility] [address] [place] [address] Bre Crenshaw MD [address] [facility] [address] [place] [address] 12/31/2024 9:00 AM EDT Office Visit [facility] UROLOGY [address] [facility] [address] [place] [address] Oralia Saha APRN [address] [facility] [address] [place] [address] 05/12/2025 1:45 PM EDT Office Visit [facility] CARDIOLOGY [address] [facility] [address] [place] [address] Obed Woodard MD [address] [facility] [address] [place] [address] documented as of this encounter Visit Diagnoses Not on filedocumented in this encounter Care Teams Ladle Filler Relationship Specialty Start Date End Date Herbert Hair MD [address] [facility] [address] [place] [address] PCP - General Adolescent Medicine 03/03/22 documented as of this encounter
--- OUTSIDE RECORDS SUMMARY | 2024-08-17 15:49 | XMS_ITS | Encounter Summary ---
Author Organization [facility] Address [address] [place] [address] Care Team Providers Care Photofinishing Laboratory Worker Name Role Phone Herbert Hair MD Primary Care Provider [phone] Encounter Details Date Type Department Care Team (Late st Contact Info) Description 07/24/2023 Readmission Management [facility] [address] [place] [address] Mare Marina, HUMZA Social History Tobacco Use Types Packs/Day Years [...] or training? Not on file Preferred Language Prydeinig 07/20/2023 PHQ-2 Answer Date Recorded Retired PHQ-9: Brief Depression Severity Measure Score 0 10/26/2022 Comments No Sex and Gender Information Value Date Recorded Sex Assigned at Not on file Legal Sex Female 10:43 AM EDT Gender Identity Not on file Sexual Orientation Not on file documented as of this encounter Miscellaneous Notes * Outreach Note - Mare Marina RN - 07/24/2023 8:42 AM EDT Medical Week 1 Survey Flowsheet Row Responses [facility] patient discharged from? [facility] Does the patient have one of the following disease processes/diagnoses(primary or secondary)? Other Week 1 attempt successful? Yes Call start time 0847 Call end time [phone] Discharge diagnosis Cellulitis, History of breast cancer, s/p BL mastectomy. S/p soft tissue biops Person spoke with today (if not patient) and relationship pt Meds reviewed with patient/caregiver? Yes Is the patient having any side effects they believe may be caused by any medication additions or changes? No Does the patient have all medications ordered at discharge? Yes Is the patient taking all medications as directed (includes completed medication regime)? Yes Comments regarding appointments Infectious Disease 07/30/23 12:30, Dr Rosa Guerrero, general surg fu on 07/23/23 Does the patient have a primary care provider? Yes Does the patient have an appointment with their PCP within 7 days of discharge? No Nursing Interventions Educated patient on importance of making appointment, Advised patient to makeappointment Has the patient kept scheduled appointments due by today? N/A Psychosocial issues? No Did the patient receive a copy of their discharge instructions? Yes Nursing interventions Reviewed instructions with patient What is the patient's perception of their health status since discharge? Improving Is the patient/caregiver able to teach back signs and symptoms related to disease process for when to call PCP? Yes Is the patient/caregiver able to teach back signs and symptoms related to disease process for when to call 911? Yes Is the patient/caregiver able to teach back the hierarchy of who to call/visit for symptoms/problems? PCP, Specialist, Home health nurse, Urgent Care, ED, 911 Yes If the patient is a current smoker, are they able to teach back resources for cessation? Not a smoker Week 1 call completed? Yes Would this patient benefit from a Referral to [facility] Social Work? No Is the patient interested in additional calls from an ambulatory nurse case manager? No Wrap up additional comments Pt states she is doing better, and states left upper chest incision hadsome green drainage/crust that was removed at post-op appt. Pt reports that the right arm IV appears red, and was advised to have IV looked at today. Pt is recieving IV antibiotics today, and will have IV assessed before infusion. Reviewed AVS/meds/instructions with pt. Pt advised to make a PCP fu a ppt, and pt verified Infectious Disease, Post-Op appts. Oncology follows pt. Call end time [phone] Mare Champion - Registered Nurse documented in this encounter Plan of Treatment Upcoming Encounters Date Type Department Care Team (Late st Contact Info) Description 09/18/2024 3:30 PM EST Office Visit [facility] HEMATOLOGY & ONCOLOGY [address] [address] Bre Crenshaw MD [address] [facility] [address] [place] [address] 12/31/2024 9:00 AM EDT Office Visit [facility] UROLOGY [address] [place] [address] Oralia Saha APRN [address] [facility] [address] [place], [place] [address] 05/12/2025 1:45 PM EDT Office Visit [facility] CARDIOLOGY [address] [place] [phone] Obed Woodard MD [address] [facility] [address] [place] [address] documented as of this encounter Visit Diagnoses Not on filedocumented in this encounter Additional Health Concerns Infection Onset Date Last Indicated Resolved Time MRSA 07/20/2023 07/20/2023 documented as of this encounter Care Teams Photofinishing Laboratory Worker Relationship Specialty Start Date End Date Herbert Hair MD [address] [facility] [address] [place] [address] PCP - General Adolescent Medicine 03/03/22 documented as of this encounter
--- OUTSIDE RECORDS SUMMARY | 2024-08-17 15:50 | XMS_ITS | Encounter Summary ---
Author Organization [facility] Address [address] [place] [address] Care Team Providers Care Glass Block Installer Name Role Phone Herbert Hair MD Primary Care Provider + [phone] Reason for Visit * Diagnostic Imaging (Emergency) - Closed Specialty Diagnoses / Procedures Referred By Nasrin hernandez Referred To Contact Radiology Diagnoses Malignant neoplasm of lower-inner quadrant of left breast in female, estrogen receptor positive Subcutaneous nodule of breast Procedures US Breast Left Limited US Breast Left Complete Hilda Jarvis, SOFTWARE SUPPORT ANALYST [address] [facility] [address] [place] [address] Phone: tel: fax: [facility] [address] [place] [address] Phone: tel: Referral ID Status Reason Start Date Expiration Date Visits Re quested Visits Authorized [id number] Closed 06/26/2023 06/25/2024 1 1 Encounter Details Date Type Department Care Team (Latest Contact Info) Description 07/04/2023 1:27 PM EDT - 07/04/2023 11:59 PM EDT Hospital Encounter [facility] BREAST [facility] [address]60 [facility] [address] [facility] [address] [place] [address] Malignant neoplasm of lower-inner quadrant [...] [facility] HEMATOLOGY & ONCOLOGY [address] [facility] [address] [place] [phone] Bre Crenshaw MD [address] [facility] [address] [place] [address] 12/31/2024 9:00 AM EDT Office Visit [facility] UROLOGY [address] [facility] [address] [place] [address] Oralia Saha APRN [address] [facility] [address] [place] [address] 05/12/2025 1:45 PM EDT Office Visit [facility] CARDIOLOGY [address] [place] [address] Obed Woodard MD [address] [facility] [address] [place] [address] documented as of this encounter Procedures Procedure Name Priority Date/Time Associated Diagnosis Comments US BREAST LEFT LIMITED STAT 07/04/2023 3:18 PM EDT Malignant neoplasm of lower-inner quadrant of left breast in female, estrogen receptor positive Subcutaneous nodule of breast documented in this encounter Results * (ABNORMAL) US Breast Left Limited (07/04/2023 3:18 PM EDT) Anatomical Region Laterality Modality Breast Left Ultrasound 07/04/2023 4:54 PM EDT Impressions 07/04/2023 4:57 PM EDT Suspicious palpable mass on the left far laterally, patient is status post mastectomy ACR BI-RADS CATEGORY: 4, SUSPICIOUS RECOMMENDATION: Ultrasound-guided fine-needle aspiration is recommended given tissue thinness as well as vascularity. Physician Order Ultrasound Guided Breast Biopsy Diagnosis: Abnormal Mammogram A letter, in lay terminology, with the results of this exam was given to the patient at the time of the visit. This report was finalized on 07/04/2023 4:57 PM by Corrine Redd MD. Narrative 07/04/2023 4:57 PM EDT DIAGNOSTIC TARGETED LEFT BREAST ULTRASOUND CLINICAL INDICATION: Patient is status post bilateral mastectomies with a new palpable area of concern on the left. The patient has not undergone reconstruction. TECHNIQUE: Multiple transverse and sagittal images of the palpable area of concern far laterally on the left were obtained. COMPARISON: 05/05/2022 FINDINGS: Targeted ultrasound was performed by myself as well as the technologist. At the site of the patient's palpable lump there is a firm lentil sized palpable lump with visible erythema of the skin. Targeted ultrasound at this position demonstrates a 0.5 x 0.4 x 0.8 cm hypoechoic irregular mass with echogenic reflectors internally and significant blood flow identified. Finding involves both the skin as well as the superficial breast tissues. us Corrine Redd MD IMG US ORDERABLES Final Result documented in this encounter Visit Diagnoses Diagnosis Malignant neoplasm of lower-inner quadrant of left breast in female, estrogen receptor positive Subcutaneous nodule of breast documented in this encounter Care Teams Glass Block Installer Relationship Specialty Start Date End Date Herbert Hair MD Critical access hospital0 [facility] [address] [address] PCP - General Adolescent Medicine 03/03/22 documented as of this encounter
--- OUTSIDE RECORDS SUMMARY | 2024-08-17 15:50 | XMS_ITS | Encounter Summary ---
Author Organization [facility] Address [address] [place] [address] Care Team Providers Care Nursery Attendant Name Role Phone Herbert Hair MD Primary Care Provider [phone] Reason for Visit * Auth/Cert (Routine) Specialty Diagnoses / Procedures Referred By Nasrin hernandez Referred To Contact Diagnoses Fibroid Procedures NC LAPS TOTAL HYSTERECT 250 GM/< W/RMVL TUBE/OVARY TOTAL LAPAROSCOPIC HYSTERECTOMY BILATERAL SALPINGOOPHORECTOMY WITH DAVINCI ROBOT, POSSIBLE TOTAL ABDOMINAL HYSTERECTOMY Referral ID Status Reason Start Date Expiration Date Visits Re quested Visits Authorized [id number] 1 1 Encounter Details Date Type Department Care Team (Late st Contact Info) Description 03/15/2023 12:39 PM EDT Anesthesia Event [facility] OR [address] [place] [phone] Gerardo Tony MD [address] [place] [place] [address] Anesthesia Record Procedure Summary Procedure Name Responsible Anesthesiologist Anesthesia Start Time Anesthesia Stop Time TOTAL LAPAROSCOPIC HYSTERECTOMY BILATERAL SALPINGOOPHORECTOMY WITH DAVINCI ROBOT (Abdomen) Gerardo Tony MD 03/15/23 1239 03/15/23 1431 Events Date Time Event Comment 03/15/2023 1151 1235 AN Equip Check 1239 An Start The patient was reevaluated immediately before moderate or deep sedation use and before anesthesia induction. 1239 An Start Data 1245 An Induction 1249 An Intubation 1301 an brittaney now 1420 An Extubation 1425 an stop data 1431 Handoff to RN The following has been completed: 1. Identification of Patient, hudson family member(s) or patient surrogate 2. Identification of the responsible Practitioner (primary service) 3. Discussion of the pertinent/attainable medical history 4. Discussion of the surgical/procedure course (procedure, reason for surgery, procedure performed) 5. Intraoperative anesthetic management and issue/concerns to include things such as airway, hemodynamics, narcotic, sedation level and paralytic management and intravenous fluids/blood products and urine output during the procedure 6. Expectations/Plans for the early post-procedure period to include things such as anticipated course (anticipatory guidance), complications, need for laboratory or ECG and medication administration 7. Opportunity for questions and acknowledgment of understanding of report from the receiving PACU/ICU team 1431 An Stop Meds Name Total Propofol 10 MG/ML 345.32 mg lidocaine PF 1% 1 % 50 mg rocuronium 50 MG/5ML 60 mg ondansetron 2 mg/mL 4 mg dexamethasone 4 MG/ML 8 mg fentaNYL citrate (PF) 100 MCG/2ML 300 mc g ceFAZolin in dextrose (ANCEF) IVPB solut ion 2 g 2 g ketorolac 30 MG/ML 15 mg sugammadex 200 MG/2ML 200 mg lactated ringers infusion 800 mL * Agents Name O2 N2O Air Sevoflurane * Blood No blood administrations on file. Lines, Drains, and Airways Type Details Placement Removal Peripheral IV Placement Date: 03/15/23; Placement Time: 1120; Catheter Size: 18 G; Orientation: Right; Location: Antecubital; Site Prep: Alcohol; Local Anes: Injectable; Inserted by: Edith Chen RN; Insertion Attempts: 2; Patient Tolerance: Tolerated well; Removal Date: 03/15/23; Removal Time: 1637 03/15/23 1120 by Oralia Chen RN 03/15/23 1637 by Gerardo Montanez RN NG/OG Tube (Adult) Placement Date: 03/15/23; Placement Time: 1249; Type: Orogastric; Size: 16 Fr; Location: Center mouth; Removal Date: 03/15/23; Removal Time: 1420 03/15/23 1249 by Evonne Kim CRNA 03/15/23 1420 by Evonne Kim CRNA ETT Placement Date: 03/15/23; Placement Time: 1253 (created via procedure documentation); Tube Size: 7 mm; Blade Size: 3; Location: Oral; Removal Date: 03/15/23; Removal Time: 1420 03/15/23 1253 by Evonne Kim CRNA 03/15/23 1420 by Evonne Kim CRNA Urethral Catheter Placement Date: 03/15/23; Placement Time: 1300; Inserted by: ray castellon; Type: Silicone; Size: 16 Fr.; Balloon Size: 10 mL; Urine Returned: Yes; Removal Date: 03/15/23; Removal Time: 1400; Removal Reason: Per protocol 03/15/23 1300 by Jena Ruiz RN 03/15/23 1400 by Jena Ruiz RN Wound 03/15/23; 1300; midline; umbilical area; Incision (site x4); N; 07/20/23 03/15/23 1300 by Jena Ruiz RN 07/20/23 0000 by Susannah Irene RN documented in this encounter Social History Tobacco Use Types Packs/Day Years [...] on file documented as of this encounter OR Notes * Anesthesia Postprocedure Evaluation - Evonne Kim CRNA - 03/15/2023 2:35 PM EDT Patient: Leydi Pradopaneri Procedure Summary Date: 03/15/23 Room / Location: [facility] [address] [place] [address] [facility] Anesthesia Start: 1239 Anesthesia Stop: 1430 Procedure: TOTAL LAPAROSCOPIC HYSTERECTOMY BILATERAL SALPINGOOPHORECTOMY WITH DAVINCI ROBOT, POSSIBLE TOTAL ABDOMINAL HYSTERECTOMY (Abdomen) Diagnosis: Surgeons: Erika Awad MD Provider: Gerardo Tony MD Anesthesia Type: general ASA Status: 2 Anesthesia Type: general Vitals Vitals Value Taken Time BP 136/90 03/15/23 1430 Temp 97.2 ??F (36.2 ??C) 03/15/23 1430 Pulse 71 03/15/23 1434 Resp 16 03/15/23 1430 SpO2 94 % 03/15/23 1434 Vitals shown include unvalidated device data. Post Anesthesia Care and Evaluation Patient location during evaluation: PACU Patient participation: complete - patient participated Level of consciousness: responsive to physical stimuli Pain management: adequate Airway patency: patent Anesthetic complications: No anesthetic complications PONV Status: none Cardiovascular status: hemodynamically stable, acceptable and stable Respiratory status: nonlabored ventilation, acceptable, nasal cannula and oral airway Hydration status: acceptable * Anesthesia Procedure Notes - Evonne Kim CRNA - 03/15/2023 12:53 PM EDT Associated Order(s): Airway Airway Urgency: elective Date/Time: 03/15/2023 12:49 PM Airway not difficult General Information and Staff Patient location during procedure: OR Indications and Patient Condition Indications for airway management: airway protection Preoxygenated: yes MILS not maintained throughout Mask difficulty assessment: 2 - vent by mask + OA or adjuvant +/- NMBA Final Airway Details Final airway type: endotracheal airway Successful airway: ETT Cuffed: yes Successful intubation technique: direct laryngoscopy Facilitating devices/methods: intubating stylet Endotracheal tube insertion site: oral Blade: Yonny Blade size: 3 ETT size (mm): 7.0 Cormack-Lehane Classification: grade I - full view of glottis Placement verified by: chest auscultation and capnometry Measured from: lips ETT/EBT to lips (cm): 20 Number of attempts at approach: 1 Assessment: lips, teeth, and gum same as pre-op and atraumatic intubation Additional Comments Negative epigastric sounds, Breath sound equal bilaterally with symmetric chest rise and fall * Anesthesia Preprocedure Evaluation - Geradro Tony MD - 03/15/2023 11:46 AM EDT Anesthesia Evaluation Patient summary reviewed and Nursing notes reviewed history of anesthetic complications: PONV NPO Solid Status: > 8 hours NPO Liquid Status: > 2 hours Airway Mallampati: II TM distance: >3 FB Neck ROM: full No difficulty expected Dental Pulmonary (-) asthma, shortness of breath, recent URI, sleep apnea, not a smoker Cardiovascular ECG reviewed (+) hypertension, (-) past ID, dysrhythmias, angina, cardiac stents ROS comment: ECG NSR ECHO 2022 normal pre chemo Neuro/Psych (-) seizures, CVA GI/Hepatic/Renal/Endo (+) obesity, GERD, thyroid problem hypothyroidism (-) no renal disease, diabetes Musculoskeletal Abdominal Substance History DIAGNOSTICS TECH Other history of cancer (breast L ) ROS/Med Hx Other: Sp shaista mastectomy 06/22 Phys Exam Other: Mac 3 grade 1 view Anesthesia Plan ASA 2 general (Propofol infusion as part of an anti PONV technique) intravenous induction Anesthetic plan, risks, benefits, and alternatives have been provided, discussed and informed consent has been obtained with: patient. Plan discussed with AGRICULTURIST. CODE STATUS: documented in this encounter Plan of Treatment Upcoming Encounters Date Type Department Care Team (Late st Contact Info) Description 09/18/2024 3:30 PM EST Office Visit [facility] HEMATOLOGY & ONCOLOGY [address] [place] [address] Bre Crenshaw MD [address] [place] [address] 12/31/2024 9:00 AM EDT Office Visit [facility] UROLOGY [address] [place] [address] Annikashelley OraliaDWAYNE [address] [facility] [address] [place], [place] [id number] 05/12/2025 1:45 PM EDT Office Visit [facility] CARDIOLOGY [address] [place] [phone] Obed Woodard MD [address] [facility] [address] [place], [place] [id number] documented as of this encounter Procedures Procedure Name Priority Date/Time Associated Diagnosis Comments ANESTHESIA INTUBATION Routine 03/15/2023 12:53 PM EDT documented in this encounter Results * BH AN ETT AIRWAY (03/15/2023 12:53 PM EDT) Narrative Evonne Kim CRNA - 03/15/2023 12:53 PM EDT Evonne Kim CRNA ? 03/15/2023 12:53 PM Airway Urgency: elective Date/Time: 03/15/2023 12:49 PM Airway not difficult General Information and Staff Patient location during procedure: OR Indications and Patient Condition Indications for airway management: airway protection Preoxygenated: yes MILS not maintained throughout Mask difficulty assessment: 2 - vent by mask + OA or adjuvant +/- NMBA Final Airway Details Final airway type: endotracheal airway Successful airway: ETT Cuffed: yes Successful intubation technique: direct laryngoscopy Facilitating devices/methods: intubating stylet Endotracheal tube insertion site: oral Blade: Yonny Blade size: 3 ETT size (mm): 7.0 Cormack-Lehane Classification: grade I - full view of glottis Placement verified by: chest auscultation and capnometry Measured from: lips ETT/EBT ??to lips (cm): 20 Number of attempts at approach: 1 Assessment: lips, teeth, and gum same as pre-op and atraumatic intubation Additional Comments Negative epigastric sounds, Breath sound equal bilaterally with symmetric chest rise and fall us Gerardo Tony MD ANESTHESIA ORDERABLES Final Res ult documented in this encounter Visit Diagnoses Not on filedocumented in this encounter Administered Medications Inactive Administered Medications - up to 3 most recent administrations Medication Order MAR Action Action Date Dose Rate Site ceFAZolin in dextrose (ANCEF) IVPB solution 2 g 2 g, Intravenous, Administer over 30 Minutes, Once, On Bina 03/15/23 at 1103, For 1 dose, Increase to 3 grams if weight > 120 kg Caution: Look alike/sound alike drug alert, Indications: Surgical ProphylaxisIndications:Surgical Prophylaxis Given 03/15/2023 12:49 PM EDT 2 g dexamethasone (DECADRON) injection Intravenous, As Needed, Starting on Bina 03/15/23 at 1252 Given 03/15/2023 12:52 PM EDT 8 mg fentaNYL citrate (PF) (SUBLIMAZE) injection Intravenous, As Needed, Starting on Bina 03/15/23 at 1245 Given 03/15/2023 2:14 PM EDT 100 mcg Given 03/15/2023 1:16 PM EDT 100 mcg Given 03/15/2023 12:45 PM EDT 100 mcg ketorolac (TORADOL) injection Intravenous, As Needed, Starting on Bina 03/15/23 at 1412 Given 03/15/2023 2:12 PM EDT 15 mg lactated ringers infusion 9 mL/hr, Intravenous, Continuous, Starting on Bina 03/15/23 at 1103, May switch to NS IV at KVO if renal / if indicated Currently Infusing 03/15/2023 12:39 PM EDT 9 mL/hr New Bag 03/15/2023 11:20 AM EDT 9 mL/hr 9 mL/hr lidocaine PF 1% (XYLOCAINE) injection Intravenous, As Needed, Starting on Bina 03/15/23 at 1245 Given 03/15/2023 12:45 PM EDT 50 mg ondansetron (ZOFRAN) injection Intravenous, As Needed, Starting on Bina 03/15/23 at 1239 Given 03/15/2023 12:39 PM EDT 4 mg Propofol (DIPRIVAN) injection Intravenous, As Needed, Starting on Bina 03/15/23 at 1245 New Bag 03/15/2023 12:50 PM EDT 25 mcg/kg/min 13.47 mL/hr Given 03/15/2023 12:45 PM EDT 150 mg rocuronium (ZEMURON) injection Intravenous, As Needed, Starting on Bina 03/15/23 at 1245 Given 03/15/2023 1:42 PM EDT 10 mg Given 03/15/2023 12:45 PM EDT 50 mg sugammadex (BRIDION) injection Intravenous, As Needed, Starting on Bina 03/15/23 at 1412 Given 03/15/2023 2:12 PM EDT 200 mg documented in this encounter Care Teams Nursery Attendant Relationship Specialty Start Date End Date Herbert Hair MD [facility] [address] [facility] [place] [address] PCP - General Adolescent Medicine 03/03/22 documented as of this encounter
--- OUTSIDE RECORDS SUMMARY | 2024-08-17 15:50 | XMS_ITS | Encounter Summary ---
Author Organization [facility] Address [address] [place] [address] Care Team Providers Care Professor Of Theology Name Role Phone Herbert Hair MD Primary Care Provider [phone] Reason for Visit * Reason Onset Date Comments DR. LO - CALL BACK REQUEST 06/07/2023 Encounter Details Date Type Department Care Team (Late st Contact Info) Description 06/07/2023 Telephone [facility] CARDIOLOGY [address] [facility] [address] [place] [phone] Obed Lo MD [address] [facility] [address] [place] [address] DR. LO - CALL BACK REQUEST Social History Tobacco Use Types Packs/Day Years [...] encounter Miscellaneous Notes * Telephone Encounter - Elba Meyer RN - 06/07/2023 2:00 PM EDT Called pt and discussed NSK recommendations above. Pt verbalizes understanding. Patient states that she does want to keep ECHO. * Telephone Encounter - Obed Lo MD - 06/07/2023 1:42 PM EDT It was an echo to look if there was a change in EF after the completion of chemo. However if there are cost concerns that we can just do the stress test which will give a measure of EF. We will cancel the echo. * Telephone Encounter - Elba Meyer RN - 06/07/2023 1:17 PM EDT Spoke to patient yesterday and explained that ECHO was ultrasound of heart to look for cause of swelling in legs, however the patient still has concerns that correct testing wasn't ordered. Please clarify if you would like ultrasound of lower extremities as well. * Telephone Encounter - Twila Medina RegSched Rep - 06/07/2023 12:59 PM EDT Caller: Leydi Brown Relationship: Self Best call back number: [phone] What is the best time to reach you: ANYTIME Who are you requesting to speak with (clinical staff, provider, specific staff member): CLINICAL ELBA REED What was the call regarding: PATIENT CALLED IN WITH QUESTIONS ABOUT THE TESTING SHE HAS COMING UP ON 07/18/23. STATED THAT SHE WAS ADVISED BY DR. LO AT THE END OF THE VISIT THAT SHE WOULD BE GETTING A STRESS TEST AND A ULTRASOUND OF HER FEET AND ANKLES. PATIENT STATED SHE JUST HAD AN ECHO DONE IN OCTOBER AND DOESN'T WISH TO PAY FOR ANOTHER ECHO IF ITS NOT NEEDED. PATIENT STATED SHE IS WILLING TO DO THE ECHO NEXT SPRING IF ITS NEEDED, IF DR. LO THINKS ONE IS NEEDED NOW SHE SAID SHE WILL DO IT. Is it okay if the provider responds through MyChart: PREFERS A CALL documented in this encounter Plan of Treatment Upcoming Encounters Date Type Department Care Team (Late st Contact Info) Description 09/18/2024 3:30 PM EST Office Visit [facility] HEMATOLOGY & ONCOLOGY [address] [facility] [address] [place] [phone] Bre Crenshaw MD [address] [facility] [address] [place] [address] 12/31/2024 9:00 AM EDT Office Visit [facility] UROLOGY [address] [facility] [address] [place] [address] Oralia Saha APRN [address] [facility] [address] [place], [place] [id number] 05/12/2025 1:45 PM EDT Office Visit [facility] CARDIOLOGY [address] [place] [phone] Obed Lo MD [address] [facility] [address] [place] [phone] documented as of this encounter Visit Diagnoses Not on filedocumented in this encounter Care Teams Professor Of Theology Relationship Specialty Start Date End Date Herbert Hair MD [address] [facility] [address] [place] [address] PCP - General Adolescent Medicine 03/03/22 documented as of this encounter
--- OUTSIDE RECORDS SUMMARY | 2024-08-17 15:50 | XMS_ITS | Encounter Summary ---
Author Organization [facility] Address [address] [place] [address] Care Team Providers Care Wet Silk Hanger Name Role Phone Herbert Hair MD Primary Care Provider [phone] Encounter Details Date Type Department Care Team (Late st Contact Info) Description 03/07/2023 3:30 PM EDT Office Visit [facility] HEMATOLOGY & ONCOLOGY [address] [facility] [address] [place] [phone] Hilda Jarvis, PROPERTY INSPECTOR [address] [facility] [address] [place] [address] Malignant neoplasm of lower-inner quadrant of left [...] Brief Depression Severity Measure Score 0 10/26/2022 PHQ-2 Answer Date Recorded Retired PHQ-9: Brief Depression Severity Measure Score 0 10/26/2022 Comments No Sex and Gender Information Value Date Recorded Sex Assigned at Not on file Legal Sex Female 10:43 AM EDT Gender Identity Not on file Sexual Orientation Not on file documented as of this encounter Last Filed Vital Signs Vital Sign Reading Time Taken Comments Blood Pressure 167/89 03/07/2023 3:02 PM EDT Pulse 85 03/07/2023 3:02 PM EDT Temperature 36.4 ??C (97.5 ??F) 03/07/2023 3:02 PM ED T Respiratory Rate 18 03/07/2023 3:02 PM EDT Oxygen Saturation 96% 03/07/2023 3:02 PM EDT Inhaled Oxygen Concentration - - Weight 89.8 kg (198 lb) 03/07/2023 3:02 PM EDT Height 157.5 cm (5' 2 ) 03/07/2023 3:02 PM EDT Body Mass Index 36.21 03/07/2023 3:02 PM EDT documented in this encounter Progress Notes * Hilda Jarvis, PROPERTY INSPECTOR - 03/07/2023 3:30 PM EDT MEDICAL ONCOLOGY CANCER SURVIVORSHIP VISIT PROBLEM LIST: 1. pA2T1pT2 ER+ (90%), ID+ (10%), Her2 negative (1+) invasive ductal carcinoma of the left breast A) PET/CT 05/30/22 showed left breast mass with left axillary adenopathy, no evidence of distant metastatic disease. bilateral mastectomy on 06/13/22. Pathology showed a 2.4 cm IDC, intermediate grade.2/8 LN involved. B) adjuvant ddAC followed by taxol started 07/13/22 C) Completed radiation 11/29/2022. Started Tamoxifen 12/07/2022 2. Hypertension 3. Hypothyroidism 4. GERD Subjective CHIEF COMPLAINT: breast cancer HISTORY OF PRESENT ILLNESS: Leydi Brown returns for follow-up. She completed radiation 11/29/2022. Started tamoxifen 12/07/2022. She had significant fatigue with tamoxifen. Tamoxifen has been on hold since 02/22/2023 in preparation for hysterectomy March 15, [address] Awad. She feels much better since being off tamoxifen. Energy levels are back to baseline. She is having frequent hot flashes and night sweats. Objective BP 167/89 Pulse 85 Temp 97.5 ??F (36.4 ??C) Resp 18 Ht 157.5 cm (62 ) Wt 89.8 kg (198 lb) SpO2 96% BMI 36.21 kg/m?? Vitals: 03/07/23 1502 PainSc: 0-No pain ECOG score: 0 General: well appearing female in no acute distress Neuro: alert and oriented Extremeties: no lower extremity edema Skin: no lesions, bruising, or petechiae. Psych: mood and affect appropriate RECENT LABS: Lab Results Component Value Date WBC 4.50 03/07/2023 HGB 12.6 03/07/2023 HCT 37.7 03/07/2023 MCV 91.3 03/07/2023 PLT 238 03/07/2023 Lab Results Component Value Date GLUCOSE 123 (H) 03/07/2023 BUN 11 03/07/2023 CREATININE 0.71 03/07/2023 BCR 15.5 03/07/2023 K 3.4 (L) 03/07/2023 CO2 27.0 03/07/2023 CALCIUM 8.9 03/07/2023 ALBUMIN 4.1 03/07/2023 AST 18 03/07/2023 ALT 19 03/07/2023 ASSESSMENT AND PLAN: Leydi Brown is a 48 y.o. female with a T2 N1 M0 ER positive ID positive HER2 negative invasive carcinoma of the left breast. She started tamoxifen 12/07/2022. She has had significant fatigue related to the tamoxifen. She also has frequent hot flashes that are manageable. Tamoxifen has been on hold since February 22, 2023 in preparation for hysterectomy scheduled for March 15, 2023. She would like to stop the tamoxifen completelyand start on aromatase inhibitor after surgery. She is scheduled to have a hysterectomy March 15, 2023. I have had her hold the tamoxifen until she comes back to see us in 1 month. At that time we will we will look at switching her to an aromatase inhibitor. Anxiety: Continue 30 mg of buspirone as needed. Cardiac risk: followed by cardiology. Lymphedema left upper extremity: Continue working with occupational therapy and wearing compressionsleeve. Hypokalemia: Potassium from earlier today was 3.4 but specimen had slight hemolysis. Repeat CMP pending. The patient and I have reviewed [facility] personal Survivorship Care Plan in detail. We discussed diagnosis, pathology, histology, all treatments, and ongoing surveillance recommendations. All questions were answered to her satisfaction. The patient is in agreement with our plan for ongoing surveillance as outlined in the plan. A copy of this document was provided at the completion of our visit. A copy has also been sent to the patient's primary care provider. Follow-up in 1 month. Hilda Jarvis APRN [facility] Hematology and Oncology 03/07/2023 and continue CC: documented in this encounter Plan of Treatment Upcoming Encounters Date Type Department Care Team (Late st Contact Info) Description 09/18/2024 3:30 PM EST Office Visit [facility] HEMATOLOGY & ONCOLOGY [address] [facility] [address] [place] [address] Bre Crenshaw MD [address] [facility] [address] [place] [address] 12/31/2024 9:00 AM EDT Office Visit [facility] UROLOGY [address] [facility] [address] [place] [address] Oralia Saha APRN [address] [facility] [address] [place] [address] 05/12/2025 1:45 PM EDT Office Visit [facility] CARDIOLOGY [address] [facility] [address] [place] [phone] Obed Woodard MD [address] [facility] [address] [place] [address] documented as of this encounter Visit Diagnoses Diagnosis Malignant neoplasm of lower-inner quadrant of left breast in female, estrogen receptor positive- Primary documented in this encounter Care Teams Wet Silk Hanger Relationship Specialty Start Date End Date Herbert Hair MD [address] [facility] [address] [facility] [address] [place] [address] PCP - General Adolescent Medicine 03/03/22 documented as of this encounter
--- OUTSIDE RECORDS SUMMARY | 2024-08-17 15:50 | XMS_ITS | Encounter Summary ---
Author Organization [facility] Address [address] [place] [address] Care Team Providers Care Consumer Relations Specialist Name Role Phone Herbert Hair MD Primary Care Provider Reason for Visit * Auth/Cert (Routine) Specialty Diagnoses / Procedures Referred By Nasrin hernandez Referred To Contact Diagnoses Fibroid Procedures [place] LAPS TOTAL HYSTERECT 250 GM/< W/RMVL TUBE/OVARY TOTAL LAPAROSCOPIC HYSTERECTOMY BILATERAL SALPINGOOPHORECTOMY WITH DAVINCI ROBOT, POSSIBLE TOTAL ABDOMINAL HYSTERECTOMY Referral ID Status Reason Start Date Expiration Date Visits Re quested Visits Authorized [id number] 1 1 Encounter Details Date Type Department Care Team (Late st Contact Info) Description 03/15/2023 9:17 AM EDT - 03/15/2023 5:04 PM EDT Hospital Encounter [facility] OR [address] [place] [address] Erika Awad MD [address] [place] [address] Fibroid (Primary Dx); Intramural leiomyoma of uterus; Fibroids Discharge Disposition: Home or Self Care Social [...] Sign Reading Time Taken Comments Blood Pressure 142/85 03/15/2023 5:00 PM EDT Pulse 70 03/15/2023 5:00 PM EDT Temperature 36.8 ??C (98.2 ??F) 03/15/2023 5:00 PM ED T Respiratory Rate 16 03/15/2023 5:00 PM EDT Oxygen Saturation 95% 03/15/2023 5:00 PM EDT Inhaled Oxygen Concentration - - Weight 89.8 kg (198 lb) 03/15/2023 11:32 AM EDT Height 157.5 cm (5' 2 ) 03/15/2023 11:32 AM EDT Body Mass Index 36.21 03/15/2023 11:32 AM EDT documented in this encounter Discharge Instructions * Attachments The following attachments cannot be sent through Care Everywhere. * Total Laparoscopic Hysterectomy Care After (Grenadian) * Bilateral Salpingo-Oophorectomy Care After (Grenadian) * General Anesthesia Adult Care After (Grenadian) documented in this encounter Medications at Time [...] capsule Take 1 capsule by mouth Daily. MV-Min-Fe Fum-FA-DHA ( Multivitamin Plus DHA) 27-0.8-250 MG capsule Take 900 doses by mouth Daily. propranolol (INDERAL) 20 MG tablet Take 1 tablet by mouth every night at bedtime. 08/12/2022 acetaminophen (TYLENOL) 325 MG tablet Take 2 tablets by mouth Every 4 (Four) Hours As Needed for Mild Pain. Take every 4 hours while awake for 7 days then only as needed. 100 tablet 03/15/2023 3 busPIRone (BUSPAR) 15 MG tablet Take 1 tablet by mouth 2 (Two) Times a Day. 2nd time at bedtime. 08/11/2022 4 meloxicam (MOBIC) 7.5 MG tablet Take 1 tablet by mouth Daily. Take daily x 7 days. Then only as needed. 20 tablet 03/15/2023 3 oxyCODONE (ROXICODONE) 5 MG immediate release tabletIndications: Fibroid Take 1 tablet by mouth Every 4 (Four) Hours As Needed for Moderate Pain. 10 tablet 03/15/2023 3 polyethylene glycol (MIRALAX) 17 GM/SCOOP powder Take 17 g by mouth Daily. Take daily x 2 weeks to prevent constipation, then as needed. May hold for loose stool 225 g 03/15/2023 3 telmisartan-hydroc hlorothiazide (MICARDIS HCT) 40-12.5 MG per tablet Take 1 tablet by mouth Every Evening. 11/28/2020 4 vitamin B-12 (CYANOCOBALAMIN) 1000 MCG tablet Take 1 tablet by mouth Daily. 4 vitamin E 400 UNIT capsule Take 1 capsule by mouth Daily. 4 documented as of this encounter H&P Notes * Lyndsey Ag APRN - 03/15/2023 11:05 AM EDT [facility] Pre-op Full history and physical note from office is attached. VS: BP 145/102 HR 79 RR 16 T 96.9 Sat 97%RA LAB Results: Lab Results Component Value Date WBC 4.50 03/07/2023 HGB 12.6 03/07/2023 HCT 37.7 03/07/2023 MCV 91.3 03/07/2023 PLT 238 03/07/2023 NEUTROABS 2.18 03/07/2023 GLUCOSE 112 (H) 03/07/2023 BUN 11 03/07/2023 CREATININE 0.65 03/07/2023 NA 139 03/07/2023 K 3.2 (L) 03/07/2023 CL 102 03/07/2023 CO2 27.0 03/07/2023 CALCIUM 8.7 03/07/2023 ALBUMIN 4.2 03/07/2023 AST 22 03/07/2023 ALT 20 03/07/2023 BILITOT 0.2 03/07/2023 Cancer Staging (if applicable) Cancer Patient: __ yes __no __unknown__N/A; If yes, clinical stage T:__ N:__M:__, stage group or __N/A Impression: Fibroid Plan: TOTAL LAPAROSCOPIC HYSTERECTOMY BILATERAL SALPINGOOPHORECTOMY WITH DAVINCI ROBOT, POSSIBLE TOTAL ABDOMINAL HYSTERECTOMY Lyndsey Ag APRN 03/15/2023 11:05 EDT Cosigned by Erika Awad MD at 03/15/2023 12:01 PM EDT Associated attestation - Erika Awad MD - 03/15/2023 12:01 PM EDT I have reviewed the notes, assessments, and/or procedures performed by Lyndsey Ag, I concur with her/his documentation of Leydi Brown. Source Note - New Onbase, Keavy - 03/15/2023 12:00 AM EDT documented in this encounter OR Notes * Op Note - Erika Awad MD - 03/15/2023 1:00 PM EDT Hysterectomy Procedure Note Pre-operative Diagnosis: Fibroids Post-operative Diagnosis: Fibroids Operation: TRH with BSO of a uterus weighing greater than 250 grams. Surgeon: Erika Awad MD Assistants: Fingerprint Technician: Ant Hedrick RNFA was responsible for performing the following activities: Retraction, Suction, Irrigation, Suturing, and Closing and their skilled assistance was necessary for the success of this case. Anesthesia: General endotracheal anesthesia Findings: Enlarged uterus and Adhesions. The uterus was adherent to the anterior abdominal wall, entrapping the bladder. The uterus was 593 g. Estimated Blood Loss: 50 mL Specimens: Uterus with bilateral tubes and ovaries Complications: None Disposition: PACU - hemodynamically stable. Procedure Details The patient was seen in the Holding Room. The risks, benefits, complications, treatment options, and expected outcomes were discussed with the patient. The patient concurred with the proposed plan, giving informed consent. The patient was identified as Leydi Brown and the procedure verified as Robotic hysterectomy with bilateral salpingoopherectomy possible abdominal hysterectomy. A Time Out was held and the above information confirmed. After induction of anesthesia, the patient was prepped and draped in the usual sterile manner. The uterus was sounded and fit with a [employer] intrauterine manipulator. The operators gloves were changed. The supraumbilical area was injected with a dilute marcaine solution. An 8mm supraumbilical incision was made. Intraperitoneal access was gained with the optical noncutting trocar under direct visualization. CO2 was used to insufflate the abdominopelvic cavity to a pressure of approximately 15 mm Hg. She was placed in maximum Trendelenburg. One additional 8mm port site was placed on the left and two additional 8mm ports sites were placed on the right. The DaVinci system was docked and the procedure continued at the console. The anatomy was inspected. The posterior cul-de-sac could be visualized including the course of the right and left ureters. The uterus was adherent to the anterior abdominal wall with dense adhesions. These adhesions extendedfrom the right to the left round ligament and entrapped the bladder. The right infundibulopelvic ligament with identified, fulgurated and transected. The remainder of the broad ligament down to and including the round ligament was fulgurated and transected. The anterior and posterior leaflets of the broad ligament were then bluntly down to the level of theKoh ring. The uterine vessels were identified. Uterine artery and vein were fulgurated. The uterineveins descending on the left side of the uterus were also fulgurated to minimize back bleeding. A satisfactory plane to dissect the bladder across the lower uterine segment and cervix could not be established. The adhesions were then taken down from the anterior abdominal wall allowing the uterus to fall more posteriorly. Adhesions still obscured the plane between the bladder and the uterus. Attention was then turned to the right side of the pelvis. The right infundibulopelvic ligament was identified, fulgurated and transected. This dissection was taken down to the right round ligament which was then fulgurated and transected. The anterior and posterior leaflets of the broad ligament were . At the level of the Benjamin ring, a dissection plane across the cervix was identified. This plane was used to dissect the bladder away from the lower uterine segment and cervix with monopolar, blunt and sharp dissection. The uterine vessels on the patient's right were fulgurated and transected. The ascending uterine vessels on the patient's right were also fulgurated to minimize back bleeding. The uterus was too large to remove through a standard colpotomy. The largest fibroid of approximately 10 cm was then extirpated from the fundus of the uterus and placed into the upper abdomen. This allowed for proved visualization of the Benjamin ring. A circumferential incision was made along the cervicovaginal junction and the uterus was removed from the vagina. The fibroid was then brought into thepelvis, bivalved and removed through the vagina. The vaginal cuff was then closed with 2-0 vicryl and 0 vicryl. There was good hemostasis at low pressure. The bladder was backfilled with 300 mL of sterile saline. Bladder integrity was observed. The DaVinci system was undocked and the procedure was completed at the bedside. The trocars were removed. The skin incisions were closed with 3-0 plain and reinforced with skin glue. The counts were correct x 2. Patient was awakened and taken to recover in stable condition. Erika Awad MD 03/15/23 14:23 EDT documented in this encounter Plan of Treatment Upcoming Encounters Date Type Department Care Team (Late st Contact Info) Description 09/18/2024 3:30 PM EST Office Visit [facility] HEMATOLOGY & ONCOLOGY [address] [facility] [address] [place] [address] Bre Crenshaw MD [address] [facility] [address] [place] [address] 12/31/2024 9:00 AM EDT Office Visit [facility] UROLOGY [address] [facility] [address] [place] [address] Oralia Saha APRN [address] [facility] [address] [place] [address] 05/12/2025 1:45 PM EDT Office Visit [facility] CARDIOLOGY [address] [facility] [address] [place] [address] Obed Woodard MD [address] [facility] [address] [place], [place] [id number] documented as of this encounter Procedures Procedure Name Priority Date/Time Associated Diagnosis Comments TISSUE PATHOLOGY EXAM Routine 03/15/2023 2:00 PM EDT Fibroids TOTAL LAPAROSCOPIC HYSTERECTOMY WITH DAVINCI ROBOT POSSIBLE TOTAL ABDOMINAL HYSTERECTOMY 03/15/2023 12:24 PM EDT Special Needs LAURO HEDRICK* POCT PEFORM URINE Routine 03/15/2023 11:49 AM EDT POTASSIUM STAT 03/15/2023 11:39 AM EDT documented in this encounter Results * Tissue Pathology Exam (03/15/2023 2:00 PM EDT) Case Report Surgical Pathology Report ? Case: [id number] ? Authorizing Provider: ??Erika Awad MD ?Collected: ? 03/15/2023 02:00 PM ? Ordering Location: ? [facility] ?? Received: ?03/16/2023 06:37 AM ? OR ? Pathologist: ? Jordan Esqueda MD ? Specimen: ?Uterus with Cervix, Bilateral Tubes and Ovaries ? 03/19/2023 11:41 AM [facility] Clinical Information Fibroids 03/19/2023 11:41 AM [facility] Final Diagnosis UTERUS, CERVIX, BILATERAL OVARIES AND FALLOPIAN TUBES, HYSTERECTOMY WITH BILATERAL SALPINGO-OOPHORECT RADHA: Benign cervix with mild chronic cervicitis Denuded endometrial lining suggestive of prior ablation therapy Benign leiomyomata Benign bilateral ovaries Benign bilateral fimbriated fallopian tubes Negative for dysplasia or malignancy 03/19/2023 11:41 AM [facility] Gross Description 1. Uterus with Cervix, Bilateral Tubes and Ovaries. Received in formalin labeled uterus with cervix, [...] The serosa is smooth and marr. The mrar, glistening ectocervix is 3.5 x 3 cm [...] in greatest dimension. Sectioning of the fundic and free-floating masses reveals whorled cut surfaces. The bilateral marr, cerebriform ovaries average 2.5 x 1.8 x 1.5 cm. Sectioning of both ovaries reveals unremarkable cut surfaces. The bilateral fimbriated fallopian tubes average 3.5 cm in length by 0.6 cm in diameter. Sectioning of both tubes reveals a grossly unremarkable lumen. Lining Ironer sections are submitted as follows: 1A-anterior cervix; 1B-posterior cervix; 1C-anterior endomyometrium; 1D-posterior endomyometrium; 5N-8B-lswsyw and free-floating masses; 1J-right ovary; 1K-left ovary; 1L-right fallopian tube and fimbria; 1M-left fallopian tube and fimbria. LDP 03/19/2023 11:41 AM EDT [facility] Microscopic Description The slides are reviewed and demonstrate histopathologic features supporting the above rendered diagnosis. 03/19/2023 11:41 AM EDT [facility] Tissue Uterus and cervix, CS / Unknown 03/15/2023 2:00 PM EDT 03/16/2023 6:37 AM EDT Erika Awad MD PATHOLOGY/CYTOLOGY ORDERABLE S Final Result [facility]
[address] [place] [address], * POC , Urine (03/15/2023 11:49 AM EDT) HCG, Urine, QL Negative Negative [facility] Lot Number [id number] [facility] Internal Positive Control Passed Positive, Passed [facility] Internal Negative Control Passed Negative, Passed [facility] Expiration Date 01/22 [facility] Urine 03/15/2023 11:4 9 AM EDT Gerardo Tony MD POINT OF CARE TEST ORDERABLES F inal Result [facility]
[address] [place] [address], * Potassium (03/15/2023 11:39 AM EDT) Potassium 4.5 3.5 - 5.2 mmol/L 03/15/2023 11:56 AM EDT [facility] Blood Line / Unknown 03/15/2023 11 :39 AM EDT 03/15/2023 11:39 AM EDT us Gerardo Tony MD LAB BLOOD ORDERABLES Final Resu lt [facility]
[address] [place] [address], documented in this encounter Visit Diagnoses Diagnosis Fibroid- Primary Leiomyoma of uterus, unspecified Intramural leiomyoma of uterus Fibroids Leiomyoma of uterus, unspecified Fibroid Leiomyoma of uterus, unspecified documented in this encounter Admitting Diagnoses Diagnosis Fibroid Leiomyoma of uterus, unspecified documented in this encounter Administered Medications Inactive Administered Medications - up to 3 most recent administrations Medication Order MAR Action Action Date Dose Rate Site acetaminophen (TYLENOL) tablet 1,000 mg 1,000 mg, Oral, Once, On Bina 03/15/23 at 1103, For 1 dose, Do not exceed 4 grams of acetaminophen in a 24 hr period. If given for pain, use the following pain scale: Mild Pain = Pain Score of 1-3, CPOT 1-2 Moderate Pain = Pain Score of 4-6, CPOT 3-4 Severe Pain = Pain Score of 7-10, CPOT 5-8 Do not exceed 4 grams of acetaminophen in a 24 hr period. Max dose of 2gm for AST/ALT greater than 120 units/L If given for fever, use fever parameter: fever greater than 100.4 ??F. If given for pain, use the following pain scale: Mild Pain = Pain Score of 1-3, CPOT 1-2 Moderate Pain = Pain Score of 4-6, CPOT 3-4 Severe Pain = Pain Score of 7-10, CPOT 5-8Indications:Intramural leiomyoma of uterus Given 03/15/2023 11:46 AM EDT 1,000 mg droperidol (INAPSINE) 2.5 MG/ML injection - ADS Override Pull Starting on Sun03/15/23 at 1453, For 1 dose, Created by cabinet override droperidol (INAPSINE) injection 0.625 mg 0.625 mg, Intravenous, Every 15 Minutes PRN, Nausea, Vomiting, Starting on Sun03/15/23 at 1424, For 2 doses Given 03/15/2023 2:56 PM EDT 0.625 mg droperidol (INAPSINE) injection 0.625 mg 0.625 mg, Intramuscular, Once As Needed, Nausea, Vomiting, Starting on Bina 03/15/23 at 1424, For 2 doses famotidine (PEPCID) tablet 20 mg 20 mg, Oral, Once, On Bina 03/15/23 at 1103, For 1 dose Given 03/15/2023 11:46 AM EDT 20 mg fentaNYL citrate (PF) (SUBLIMAZE) 50 mcg/mL injection - ADS Override Pull Starting on Bina 03/15/23 at 1453, For 1 dose, Created by [place] override If given for pain, use the following pain scale: Mild Pain = Pain Score of 1-3, CPOT 1-2 Moderate Pain = Pain Score of 4-6, CPOT 3-4 Severe Pain = Pain Score of 7-10, CPOT 5-8 fentaNYL citrate (PF) (SUBLIMAZE) injection 50 mcg 50 mcg, Intravenous, Every 5 Minutes PRN, Moderate Pain, Starting on Bina 03/15/23 at 1424, For 4 doses, Maximum total dose of fentanyl is 200 mcg. If given for pain, use the following pain scale: Mild Pain = Pain Score of 1-3, CPOT 1-2 Moderate Pain = Pain Score of 4-6, CPOT 3-4 Severe Pain = Pain Score of 7-10, CPOT 5-8 Given 03/15/2023 2:56 PM EDT 50 mcg gabapentin (NEURONTIN) capsule 600 mg 600 mg, Oral, Once, On Bina 03/15/23 at 1103, For 1 dose, {MARK}Indications:Intramura l leiomyoma of uterus Given 03/15/2023 11:46 AM EDT 600 mg hydrALAZINE (APRESOLINE) injection 5 mg 5 mg, Intravenous, Every 10 Minutes PRN, High Blood Pressure, for systolic blood pressure greater than 180 mmHg or diastolic blood pressure greater than 105 mmHg, Starting on Bina 03/15/23 at 1424, Up to 20 mg. Caution: Look alike/sound alike drug alert HYDROcodone-acetaminophen (NORCO) 5-325 MG per tablet - ADS Override Pull Starting on Sun03/15/23 at 1520, For 1 dose, Created by cabinet override [MARK] Do not exceed 4 grams of acetaminophen in a 24 hr period. Max dose of 2gm for AST/ALT greater than 120 units/L If given for pain, use the following pain scale: Mild Pain = Pain Score of 1-3, CPOT 1-2 Moderate Pain = Pain Score of 4-6, CPOT 3-4 Severe Pain = Pain Score of 7-10, CPOT 5-8 HYDROcodone-acetaminophen (NORCO) 5-325 MG per tablet 1 tablet 1 tablet, Oral, Once As Needed, Moderate Pain, pain, Starting on Bina 03/15/23 at 1424, For 10 days, [MARK] Do not exceed 4 grams of acetaminophen in a 24 hr period. Max dose of 2gm for AST/ALT greater than 120 units/L If given for pain, use the following pain scale: Mild Pain = Pain Score of 1-3, CPOT 1-2 Moderate Pain = Pain Score of 4-6, CPOT 3-4 Severe Pain = Pain Score of 7-10, CPOT 5-8 Given 03/15/2023 3:22 PM EDT 1 tablet HYDROmorphone (DILAUDID) 1 MG/ML injection - ADS Override Pull Starting on Bina 03/15/23 at 1500, For 1 dose, Created by [employer] {MARK} Caution: Look alike/sound alike drug alert If given for pain, use the following pain scale: Mild Pain = Pain Score of 1-3, CPOT 1-2 Moderate Pain = Pain Score of 4-6, CPOT 3-4 Severe Pain = Pain Score of 7-10, CPOT 5-8 HYDROmorphone (DILAUDID) injection 0.5 mg 0.5 mg, Intravenous, Every 10 Minutes PRN, Severe Pain, Starting on Bina 03/15/23 at 1424, For 4 doses, Maximum total dose of hydromorphone is 2 mg. {MARK} Caution: Look alike/sound alike drug alert If given for pain, use the following pain scale: Mild Pain = Pain Score of 1-3, CPOT 1-2 Moderate Pain = Pain Score of 4-6, CPOT 3-4 Severe Pain = Pain Score of 7-10, CPOT 5-8 Given 03/15/2023 3:05 PM EDT 0.5 mg ipratropium-albuterol (DUO-NEB) nebulizer solution 3 mL 3 mL, Nebulization, Once As Needed, Wheezing, Shortness of Air, bronchospasm, Starting on Bina 03/15/23 at 1424, For 1 dose labetalol (NORMODYNE,TRANDATE) injection 5 mg 5 mg, Intravenous, Every 5 Minutes PRN, High Blood Pressure, for systolic blood pressure greater than 180 mmHg or diastolic blood pressure greater than 105 mmHg, Starting on Bina 03/15/23 at 1424, Hold for heart rate less than 60. Give IV Push over 2 minutes. lactated ringers bolus 250 mL 250 mL, Intravenous, at 1,666.7 mL/hr, Administer over 0.15 Hours, Once As Needed, Hypotension, Starting on Bina 03/15/23 at 1424, For 2 doses, Indications: HypotensionIndications:Hyp otension lactated ringers infusion 9 mL/hr, Intravenous, Continuous, Starting on Bina 03/15/23 at 1103, May switch to NS IV at [facility] if renal / if indicated Currently Infusing 03/15/2023 12:39 PM EDT 9 mL/hr New Bag 03/15/2023 11:20 AM EDT 9 mL/hr 9 mL/hr lidocaine PF 1% (XYLOCAINE) injection 0.5 mL 0.5 mL, Injection, Once As Needed, IV Start, Starting on Bina 03/15/23 at 1101, For 1 dose Given 03/15/2023 11:20 AM EDT 0.5 mL meloxicam (MOBIC) 15 MG tablet - ADS Override Pull Starting on Bina 03/15/23 at 1520, For 1 dose, Created by cabinet override If given for pain, use the following pain scale: Mild Pain = Pain Score of 1-3, CPOT 1-2 Moderate Pain = Pain Score of 4-6, CPOT 3-4 Severe Pain = Pain Score of 7-10, CPOT 5-8 meloxicam (MOBIC) tablet 7.5 mg 7.5 mg, Oral, Once As Needed, Mild Pain, Starting on Bina 03/15/23 at 1518, For 1 dose, Take with food. If given for pain, use the following pain scale: Mild Pain = Pain Score of 1-3, CPOT 1-2 Moderate Pain = Pain Score of 4-6, CPOT 3-4 Severe Pain = Pain Score of 7-10, CPOT 5-8 Given 03/15/2023 3:23 PM EDT 7.5 mg meperidine (DEMEROL) injection 12.5 mg 12.5 mg, Intravenous, Every 5 Minutes PRN, Shivering, May repeat x 1, Starting on Bina 03/15/23 at 1424, For 2 doses, {MARK} naloxone (NARCAN) injection 0.4 mg 0.4 mg, Intravenous, As Needed, Opioid Reversal, unresponsiveness, decrease oxygen saturation, Starting on Bina 03/15/23 at 1424 ondansetron (ZOFRAN) injection 4 mg 4 mg, Intravenous, Once As Needed, Nausea, Vomiting, Starting on Bina 03/15/23 at 1424, For 1 dose, If BOTH ondansetron (ZOFRAN) and promethazine (PHENERGAN) are ordered use ondansetron first and THEN promethazine IF ondansetron is ineffective. promethazine (PHENERGAN) suppository 25 mg 25 mg, Rectal, Once As Needed, Nausea, Vomiting, Starting on Bina 03/15/23 at 1424, For 1 dose, If BOTH ondansetron (ZOFRAN) and promethazine (PHENERGAN) are ordered use ondansetron first and THEN promethazine IF ondansetron is ineffective. promethazine (PHENERGAN) tablet 25 mg 25 mg, Oral, Once As Needed, Nausea, Vomiting, Starting on Bina 03/15/23 at 1424, For 1 dose, If BOTH ondansetron (ZOFRAN) and promethazine (PHENERGAN) are ordered use ondansetron first and THEN promethazine IF ondansetron is ineffective. {BKC} scopolamine patch 1 mg/72 hr 1 patch, Transdermal, Administer over 72 Hours, Once, On Bina 03/15/23 at 1147, For 1 dose, Do not apply if patient older than 65 or has history of glaucoma. {BKC} Medication Applied 03/15/2023 11:46 AM EDT 1 patch Behind Left Ear sodium chloride 0.9 % flush 3 mL 3 mL, Intravenous, Every 12 Hours Scheduled, First dose on Bina 03/15/23 at 1426 sodium chloride 0.9 % flush 3-10 mL 3-10 mL, Intravenous, As Needed, Line Care, Starting on Bina 03/15/23 at 1424 sodium chloride 0.9 % infusion 40 mL 40 mL, Intravenous, As Needed, Line Care, Starting on Bina 03/15/23 at 1424, Following administration of an IV intermittent medication, flush line with 40mL NS at 100mL/hr. documented in this encounter Active and Recently Administered Medications Times are shown in EDT. Scheduled Medication Order 03/13/2023 03/14/2023 03/15/2023 acetaminophen (TYLENOL) tablet 1,000 mg (COMPLETED) 1,000 mg, Oral, Once, On Bina 03/15/23 at 1103, For 1 dose, Do not exceed 4 grams of acetaminophen in a 24 hr period. If given for pain, use the following pain scale: Mild Pain = Pain Score of 1-3, CPOT 1-2 Moderate Pain = Pain Score of 4-6, CPOT 3-4 Severe Pain = Pain Score of 7-10, CPOT 5-8 Do not exceed 4 grams of acetaminophen in a 24 hr period. Max dose of 2gm for AST/ALT greater than 120 units/L If given for fever, use fever parameter: fever greater than 100.4 ??F. If given for pain, use the following pain scale: Mild Pain = Pain Score of 1-3, CPOT 1-2 Moderate Pain = Pain Score of 4-6, CPOT 3-4 Severe Pain = Pain Score of 7-10, CPOT 5-8 1146 (Given - Provid er: Oralia Chen RN) acetaminophen (TYLENOL) tablet 650 mg 650 mg, Oral, Once, On Bina 03/15/23 at 1800, For 1 dose, Do not exceed 4 grams of acetaminophen in a 24 hr period. If given for pain, use the following pain scale: Mild Pain = Pain Score of 1-3, CPOT 1-2 Moderate Pain = Pain Score of 4-6, CPOT 3-4 Severe Pain = Pain Score of 7-10, CPOT 5-8 Do not exceed 4 grams of acetaminophen in a 24 hr period. Max dose of 2gm for AST/ALT greater than 120 units/L If given for fever, use fever parameter: fever greater than 100.4 ??F. If given for pain, use the following pain scale: Mild Pain = Pain Score of 1-3, CPOT 1-2 Moderate Pain = Pain Score of 4-6, CPOT 3-4 Severe Pain = Pain Score of 7-10, CPOT 5-8 ceFAZolin in dextrose (ANCEF) IVPB solution 2 g (COMPLETED) 2 g, Intravenous, Administer over 30 Minutes, Once, On Bina 03/15/23 at 1103, For 1 dose, Increase to 3 grams if weight > 120 kg Caution: Look alike/sound alike drug alert, Indications: Surgical Prophylaxis 1249 (Given - Provid er: Evonne Kim CRNA) famotidine (PEPCID) tablet 20 mg (COMPLETED) 20 mg, Oral, Once, On Bina 03/15/23 at 1103, For 1 dose 1146 (Given - Provid er: Oralia Chen RN) gabapentin (NEURONTIN) capsule 600 mg (COMPLETED) 600 mg, Oral, Once, On Bina 03/15/23 at 1103, For 1 dose, {MARK} 1146 (Given - Provid er: Oralia Chen RN) scopolamine patch 1 mg/72 hr 1 patch, Transdermal, Administer over 72 Hours, Once, On Bina 03/15/23 at 1147, For 1 dose, Do not apply if patient older than 65 or has history of glaucoma. {BKC} 1146 (Medication Inna lied - Provider: Oralia Chen RN)1704 (Due: Medication Removed - Provider: Automatic Discharge Provider - Comment: Time automatically adjusted from order being discontinued) sodium chloride 0.9 % flush 3 mL 3 mL, Intravenous, Every 12 Hours Scheduled, First dose on Bina 03/15/23 at 1426 1426 (Due) Continuous Medication Order 03/13/2023 03/14/2023 03/15/2023 lactated ringers infusion 9 mL/hr, Intravenous, Continuous, Starting on Bina 03/15/23 at 1103, May switch to NS IV at KVO if renal / if indicated 1120 (New Bag - Prov ider: Oralia Chen RN)1239 (Currently Infusing - Provider: Evonne Kim CRNA)1416 (Anesthesia Volume Adjustment - Provider: Evonne Kim CRNA) PRN Medication Order 03/13/2023 03/14/2023 03/15/2023 bupivacaine-EPINEPHrine PF (MARCAINE w/EPI) 0.5% -1:[id number] injection (CANCELED) As Needed, Starting on Bina 03/15/23 at 1321 1321 (Given - Provid er: Erika Awad MD) droperidol (INAPSINE) injection 0.625 mg(Linked Group 1) 0.625 mg, Intravenous, Every 15 Minutes PRN, Nausea, Vomiting, Starting on Bina 03/15/23 at 1424, For 2 doses 1456 (Given - Provid er: Gerardo Montanez RN) droperidol (INAPSINE) injection 0.625 mg(Linked Group 1) 0.625 mg, Intramuscular, Once As Needed, Nausea, Vomiting, Starting on Bina 03/15/23 at 1424, For 2 doses 1456 (Not Given: See Alt - Provider: Gerardo Montanez RN) fentaNYL citrate (PF) (SUBLIMAZE) injection 50 mcg 50 mcg, Intravenous, Every 5 Minutes PRN, Moderate Pain, Starting on Bina 03/15/23 at 1424, For 4 doses, Maximum total dose of fentanyl is 200 mcg. If given for pain, use the following pain scale: Mild Pain = Pain Score of 1-3, CPOT 1-2 Moderate Pain = Pain Score of 4-6, CPOT 3-4 Severe Pain = Pain Score of 7-10, CPOT 5-8 1456 (Given - Provid er: Gerardo Montanez RN) heparin (porcine) 5000 UNIT/ML injection (CANCELED) As Needed, Starting on Bina 03/15/23 at 1258 1258 (Given - Provid er: Torri Garzon RN) hydrALAZINE (APRESOLINE) injection 5 mg 5 mg, Intravenous, Every 10 Minutes PRN, High Blood Pressure, for systolic blood pressure greater than 180 mmHg or diastolic blood pressure greater than 105 mmHg, Starting on Bina 03/15/23 at 1424, Up to 20 mg. Caution: Look alike/sound alike drug alert HYDROcodone-acetaminophen (NORCO) 5-325 MG per tablet 1 tablet 1 tablet, Oral, Once As Needed, Moderate Pain, pain, Starting on Bina 03/15/23 at 1424, For 10 days, [MARK] Do not exceed 4 grams of acetaminophen in a 24 hr period. Max dose of 2gm for AST/ALT greater than 120 units/L If given for pain, use the following pain scale: Mild Pain = Pain Score of 1-3, CPOT 1-2 Moderate Pain = Pain Score of 4-6, CPOT 3-4 Severe Pain = Pain Score of 7-10, CPOT 5-8 1522 (Given - Provid er: Gerardo Montanez RN) HYDROmorphone (DILAUDID) injection 0.5 mg (CANCELED) 0.5 mg, Intravenous, Every 10 Minutes PRN, Severe Pain, Starting on Bina 03/15/23 at 1424, For 4 doses, Maximum total dose of hydromorphone is 2 mg. {MARK} Caution: Look alike/sound alike drug alert If given for pain, use the following pain scale: Mild Pain = Pain Score of 1-3, CPOT 1-2 Moderate Pain = Pain Score of 4-6, CPOT 3-4 Severe Pain = Pain Score of 7-10, CPOT 5-8 1505 (Given - Provid er: Gerardo Montanez RN) HYDROmorphone (DILAUDID) injection 0.5 mg 0.5 mg, Intravenous, Every 30 Minutes PRN, Severe Pain, Starting on Bina 03/15/23 at 1518, For 2 doses, {MARK} Caution: Look alike/sound alike drug alert If given for pain, use the following pain scale: Mild Pain = Pain Score of 1-3, CPOT 1-2 Moderate Pain = Pain Score of 4-6, CPOT 3-4 Severe Pain = Pain Score of 7-10, CPOT 5-8 ipratropium-albuterol (DUO-NEB) nebulizer solution 3 mL 3 mL, Nebulization, Once As Needed, Wheezing, Shortness of Air, bronchospasm, Starting on Bina 03/15/23 at 1424, For 1 dose labetalol (NORMODYNE,TRANDATE) injection 5 mg 5 mg, Intravenous, Every 5 Minutes PRN, High Blood Pressure, for systolic blood pressure greater than 180 mmHg or diastolic blood pressure greater than 105 mmHg, Starting on Bina 03/15/23 at 1424, Hold for heart rate less than 60. Give IV Push over 2 minutes. lactated ringers bolus 250 mL 250 mL, Intravenous, at 1,666.7 mL/hr, Administer over 0.15 Hours, Once As Needed, Hypotension, Starting on Bina 03/15/23 at 1424, For 2 doses, Indications: Hypotension lidocaine PF 1% (XYLOCAINE) injection 0.5 mL (COMPLETED) 0.5 mL, Injection, Once As Needed, IV Start, Starting on Bina 03/15/23 at 1101, For 1 dose 1120 (Given - Provid er: Oralia Chen RN) meloxicam (MOBIC) tablet 7.5 mg (COMPLETED) 7.5 mg, Oral, Once As Needed, Mild Pain, Starting on Bina 03/15/23 at 1518, For 1 dose, Take with food. If given for pain, use the following pain scale: Mild Pain = Pain Score of 1-3, CPOT 1-2 Moderate Pain = Pain Score of 4-6, CPOT 3-4 Severe Pain = Pain Score of 7-10, CPOT 5-8 1523 (Given - Provid er: Gerardo Montanez RN) meperidine (DEMEROL) injection 12.5 mg 12.5 mg, Intravenous, Every 5 Minutes PRN, Shivering, May repeat x 1, Starting on Bina 03/15/23 at 1424, For 2 doses, {MARK} naloxone (NARCAN) injection 0.4 mg 0.4 mg, Intravenous, As Needed, Opioid Reversal, unresponsiveness, decrease oxygen saturation, Starting on Bina 03/15/23 at 1424 ondansetron (ZOFRAN) injection 4 mg 4 mg, Intravenous, Once As Needed, Nausea, Vomiting, Starting on Bina 03/15/23 at 1424, For 1 dose, If BOTH ondansetron (ZOFRAN) and promethazine (PHENERGAN) are ordered use ondansetron first and THEN promethazine IF ondansetron is ineffective. ondansetron (ZOFRAN) injection 4 mg 4 mg, Intravenous, Once As Needed, Nausea, Vomiting, Starting on Bina 03/15/23 at 1433, For 1 dose, If BOTH ondansetron (ZOFRAN) and promethazine (PHENERGAN) are ordered use ondansetron first and THEN promethazine IF ondansetron is ineffective. promethazine (PHENERGAN) suppository 25 mg(Linked Group 2) 25 mg, Rectal, Once As Needed, Nausea, Vomiting, Starting on Bina 03/15/23 at 1424, For 1 dose, If BOTH ondansetron (ZOFRAN) and promethazine (PHENERGAN) are ordered use ondansetron first and THEN promethazine IF ondansetron is ineffective. promethazine (PHENERGAN) tablet 25 mg(Linked Group 2) 25 mg, Oral, Once As Needed, Nausea, Vomiting, Starting on Bina 03/15/23 at 1424, For 1 dose, If BOTH ondansetron (ZOFRAN) and promethazine (PHENERGAN) are ordered use ondansetron first and THEN promethazine IF ondansetron is ineffective. {BKC} sodium chloride 0.9 % flush 3-10 mL 3-10 mL, Intravenous, As Needed, Line Care, Starting on Bina 03/15/23 at 1424 sodium chloride 0.9 % infusion 40 mL 40 mL, Intravenous, As Needed, Line Care, Starting on Bina 03/15/23 at 1424, Following administration of an IV intermittent medication, flush line with 40mL NS at 100mL/hr. sodium chloride 0.9 % solution (CANCELED) As Needed, Starting on Bina 03/15/23 at 1322 1322 (Given - Provid er: Erika Awad MD) sterile water irrigation solution (CANCELED) As Needed, Starting on Bina 03/15/23 at 1322 1322 (Given - Provid er: Erika Awad MD) Linked Groups Order Group 1: droperidol (INAPSINE) injection 0.625 mgJump to med 0.625 mg, Intravenous, Every 15 Minutes PRN, Nausea, Vomiting, Starting on Bina 03/15/23 at 1424, For 2 doses Or droperidol (INAPSINE) injection 0.625 mgJump to med 0.625 mg, Intramuscular, Once As Needed, Nausea, Vomiting, Starting on Bina 03/15/23 at 1424, For 2 doses Group 2: promethazine (PHENERGAN) suppository 25 mgJump to med 25 mg, Rectal, Once As Needed, Nausea, Vomiting, Starting on Bina 03/15/23 at 1424, For 1 dose, If BOTH ondansetron (ZOFRAN) and promethazine (PHENERGAN) are ordered use ondansetron first and THEN promethazine IF ondansetron is ineffective. Or promethazine (PHENERGAN) tablet 25 mgJump to med 25 mg, Oral, Once As Needed, Nausea, Vomiting, Starting on Bina 03/15/23 at 1424, For 1 dose, If BOTH ondansetron (ZOFRAN) and promethazine (PHENERGAN) are ordered use ondansetron first and THEN promethazine IF ondansetron is ineffective. {BKC} documented in this encounter Care Teams Consumer Relations Specialist Relationship Specialty Start Date End Date Herbert Hair MD [facility] [address] [facility] [address] PCP - General Adolescent Medicine 03/03/22 documented as of this encounter
--- OUTSIDE RECORDS SUMMARY | 2024-08-17 15:50 | XMS_ITS | Encounter Summary ---
Author Organization [facility] Address [address] [place] [address] Care Team Providers Care Certified Massage Therapist Name Role Phone Herbert Hair MD Primary Care Provider Encounter Details Date Type Department Care Team (Late st Contact Info) Description 06/18/2023 Telephone [facility] HEMATOLOGY & ONCOLOGY [address] [phone] Bre Crenshaw MD [address] [place] [id number] Social History Tobacco Use Types Packs/Day Years [...] Telephone Encounter - Yanet Preston RN - 06/18/2023 2:30 PM EDT I called patient back and told her that per Bria Jarvis APRN, it is okay to take melatonin andtylenolPM. Patient stated that it really helped her get rest and she was making sure she was allowed to take it. She also takes a clairitin daily for allergies and I told her that was fine. She verbalized understanding. * Telephone Encounter - Maria E Oconnell RegSched Rep - 06/18/2023 1:35 PM EDT Patient called and stated she is taking Tylenol PM's at night started this weekend and she stated she is also taking Melatonin she said it helps with her join pain and it is helping with her sleep she wants to discuss if this is ok to continue. documented in this encounter Plan of Treatment Upcoming Encounters Date Type Department Care Team (Late st Contact Info) Description 09/18/2024 3:30 PM EST Office Visit [facility] & [facility]COL[facility]Y [address] [facility] [address] [place] [phone] Bre Crenshaw MD [address] [facility] [address] [place] [address] 12/31/2024 9:00 AM EDT Office Visit [facility] UROLOGY [address] [facility] [address] [place] [address] Annikashelley OraliaDWAYNE [address] [facility] [address] [place] [address] 05/12/2025 1:45 PM EDT Office Visit [facility] CARDIOLOGY [address] [facility] [address] [place] [phone] Obed Woodard MD [address] [facility] [address] [place] [address] documented as of this encounter Visit Diagnoses Not on filedocumented in this encounter Care Teams Certified Massage Therapist Relationship Specialty Start Date End Date Herbert Hair MD [address] [facility] [address] [place] [address] PCP - General Adolescent Medicine 03/03/22 documented as of this encounter
--- OUTSIDE RECORDS SUMMARY | 2024-08-17 15:50 | XMS_ITS | Encounter Summary ---
Author Organization [facility] Address [address] [place] [address] Care Team Providers Care Fast Food Manager Name Role Phone Herbert Hair MD Primary Care Provider + [phone] Encounter Details Date Type Department Care Team (Latest Contact Info) Description 03/07/2023 12:30 PM EDT Pre-Admission Testing [facility] [address] [place] [phone] Malignant neoplasm of lower-inner quadrant of left breast in female, estrogen receptor positive; Intramural leiomyoma of uterus Social History Tobacco Use Types Packs/Day Years [...] Taken Comments Blood Pressure - - Pulse - - Temperature - - Respiratory Rate - - Oxygen Saturation - - Inhaled Oxygen Concentration - - Weight 89.5 kg (197 lb 5 oz) 03/07/2023 1:26 PM EDT Height 157.5 cm (5' 2 ) 03/07/2023 1:26 PM EDT Body Mass Index 36.09 03/07/2023 1:26 PM EDT documented in this encounter OR Notes * PAT - Bronwyn Chery RN - 03/07/2023 12:30 PM EDT An arrival time for procedure was not provided during PAT visit. If patient had any questions or concerns about their arrival time, they were instructed to contact their surgeon/physician. Additionally, if the patient referred to an arrival time that was acquired from their my chart account, patient was encouraged to verify that time with their surgeon/physician. Arrival times are NOT provided inPre Admission Testing Department. Patient denies any current skin issues. Per Anesthesia Request, patient instructed not to take their CAMILO/ARB medications on the AM of surgery. ReadyBath LUXE antibacterial wipes provided and instructions reviewed with pt ( allergic to CHG wipes ) Pt verbalized understanding . Paradis bracelet provided to patient to wear on day of procedure to the effected left arm due to Lymphedma post mastectomy ( no sticks or B/P) documented in this encounter Plan of Treatment Upcoming Encounters Date Type Department Care Team (Late st Contact Info) Description 09/18/2024 3:30 PM EST Office Visit [facility] HEMATOLOGY & ONCOLOGY [address] [facility] [address] [place] [address] Bre Crenshaw MD [address] [facility] [address] [place] [address] 12/31/2024 9:00 AM EDT Office Visit [facility] UROLOGY [address] [facility] [address] [place] [address] Oralia Saha APRN [address] [facility] [address] [place], [place] [phone] 05/12/2025 1:45 PM EDT Office Visit [facility] CARDIOLOGY [address] [facility] [address] [place] [address] Obed Woodard MD [address] [facility] [address] [place], [place] [id number] documented as of this encounter Procedures Procedure Name Priority Date/Time Associated Diagnosis Comments ECG 12-LEAD Routine 03/07/2023 1:14 PM EDT URINALYSIS W/ CULTURE IF INDICATED Routine 03/07/2023 12:43 PM EDT Intramural leiomyoma of uterus CBC WITH AUTO DIFFERENTIAL Routine 03/07/2023 12:43 PM EDT Malignant neoplasm of lower-inner quadrant of left breast in female, estrogen receptor positive CBC AND DIFFERENTIAL Routine 03/07/2023 12:43 PM EDT Malignant neoplasm of lower-inner quadrant of left breast in female, estrogen receptor positive COMPREHENSIVE METABOLIC PANEL Routine 03/07/2023 12:43 PM EDT Malignant neoplasm of lower-inner quadrant of left breast in female, estrogen receptor positive documented in this encounter Results * ECG 12 Lead (03/07/2023 1:14 PM EDT) QT Interval 390 ms BH ECG QTC Interval 449 ms ECG 03/07/2023 1:14 PM EDT 03/22/2023 3:00 PM EDT Narrative ECG - 03/22/2023 3:00 PM EDT Test Reason : HTN Blood Pressure : ?? */* ?? mmHG Vent. Rate : ??80 BPM ? Atrial Rate : ??80 BPM ?? P-R Int : 144 ms ?QRS Dur : ??78 ms ?QT Int : 390 ms ? P-R-T Axes : ??-2 ?? 3 ?? 6 degrees ?? QTc Int : 449 ms Normal sinus rhythm Normal ECG When compared with ECG of 09-JUN-2022 12:27, No significant change was found Confirmed by SELINA ??JAZMIN NEWMAN ([id number]) on 03/22/2023 3:00:30 PM Referred By: MARIA LUISA ? Confirmed By: JAZMIN MARKS ??MD Procedure Note Jazmin Marks MD - 03/22/2023 Test Reason : HTN Blood Pressure : [...] MARIA LUISA Confirmed By: JAZMIN MARKS MD us Erika Awad MD ECG ORDERABLES Final Result ECG * CBC Auto Differential (03/07/2023 12:43 PM EDT) [facility] Signature WBC 3.87 3.40 - 10.80 10*3/mm3 03/07/2023 1:19 PM EDT [facility] RBC 4.10 3.77 - 5.28 10*6/mm3 03/07/2023 1:19 PM EDT [facility] Hemoglobin 12.4 12.0 - 15.9 g/dL 03/07/2023 1:19 PM EDT [facility] Hematocrit 37.4 34.0 - 46.6 % 03/07/2023 1:19 PM EDT [facility] MCV 91.2 79.0 - 97.0 fL 03/07/2023 1:19 PM EDT [facility] MCH 30.2 26.6 - 33.0 pg 03/07/2023 1:19 PM EDT [facility] MCHC 33.2 31.5 - 35.7 g/dL 03/07/2023 1:19 PM EDT [facility] RDW 14.4 12.3 - 15.4 % 03/07/2023 1:19 PM EDT [facility] RDW-SD 47.5 37.0 - 54.0 fl 03/07/2023 1:19 PM EDT [facility] MPV 10.9 6.0 - 12.0 fL 03/07/2023 1:19 PM EDT [facility] Platelets 226 140 - 450 10*3/mm3 03/07/2023 1:19 PM EDT [facility] Neutrophil % 49.3 42.7 - 76.0 % 03/07/2023 1:19 PM EDT [facility] Lymphocyte % 36.7 19.6 - 45.3 % 03/07/2023 1:19 PM EDT [facility] Monocyte % 10.3 5.0 - 12.0 % 03/07/2023 1:19 PM EDT [facility] Eosinophil % 3.1 0.3 - 6.2 % 03/07/2023 1:19 PM EDT [facility] Basophil % 0.3 0.0 - 1.5 % 03/07/2023 1:19 PM EDT [facility] Immature Grans % 0.3 0.0 - 0.5 % 03/07/2023 1:19 PM EDT [facility] Neutrophils, Absolute 1.91 1.70 - 7.00 10*3/mm3 03/07/2023 1:19 PM EDT [facility] Lymphocytes, Absolute 1.42 0.70 - 3.10 10*3/mm3 03/07/2023 1:19 PM EDT [facility] Monocytes, Absolute 0.40 0.10 - 0.90 10*3/mm3 03/07/2023 1:19 PM EDT [facility] Eosinophils, Absolute 0.12 0.00 - 0.40 10*3/mm3 03/07/2023 1:19 PM EDT [facility] Basophils, Absolute 0.01 0.00 - 0.20 10*3/mm3 03/07/2023 1:19 PM EDT [facility] Immature Grans, Absolute 0.01 0.00 - 0.05 10*3/mm3 03/07/2023 1:19 PM EDT [facility] nRBC 0.0 0.0 - 0.2 /100 WBC 03/07/2023 1:19 PM EDT [facility] Blood Venipuncture / Unknown 03/07/2023 12:43 PM EDT 03/07/2023 1:09 PM EDT Bre Crenshaw MD LAB BLOOD ORDERABLES Final Resul t [facility]
[address] [place] [address], * Urinalysis With Culture If Indicated - Urine, Clean Catch (03/07/2023 12:43 PM EDT) Color, UA Yellow Yellow, Straw 03/07/2023 1:43 PM EDT [facility] Appearance, UA Clear Clear 03/07/2023 1:43 PM EDT [facility] pH, UA 5.5 5.0 - 8.0 03/07/2023 1:43 PM EDT [facility] Specific [place], UA 1.018 1.001 - 1.030 03/07/2023 1:43 PM EDT [facility] Glucose, UA Negative Negative 03/07/2023 1:43 PM EDT [facility] Ketones, UA Negative Negative 03/07/2023 1:43 PM EDT [facility] Bilirubin, UA Negative Negative 03/07/2023 1:43 PM EDT [facility] Blood, UA Negative Negative 03/07/2023 1:43 PM EDT [facility] Protein, UA Negative Negative 03/07/2023 1:43 PM EDT [facility] Leuk Esterase, UA Negative Negative 03/07/2023 1:43 PM EDT [facility] Nitrite, UA Negative Negative 03/07/2023 1:43 PM EDT [facility] Urobilinogen, UA 0.2 E.U./dL 0.2 - 1.0 E.U./dL 03/07/2023 1:43 PM EDT [facility] Urine Urine specimen obtained by clean catch procedure / Unknown Collection / Unknown 03/07/2023 12:43 PM EDT 03/07/2023 1:40 PM EDT [facility] - 03/07/2023 1:43 PM EDT In absence of clinical symptoms, the presence of pyuria, bacteria, and/or nitrites on the urinalysis result does not correlate with infection. Urine microscopic not indicated. us Erika Awad MD URINE ORDERABLES Final Resul t [facility]
[address] [place] [address], * (ABNORMAL) Comprehensive Metabolic Panel (03/07/2023 12:43 PM EDT) Glucose 123(H) 65 - 99 mg/dL 03/07/2023 2:15 PM EDT [facility] BUN 11 6 - 20 mg/dL 03/07/2023 2:15 PM EDT [facility] Creatinine 0.71 0.57 - 1.00 mg/dL 03/07/2023 2:15 PM EDT [facility] Sodium 139 136 - 145 mmol/L 03/07/2023 2:15 PM T [facility] Potassium 3.4(L) 3.5 - 5.2 mmol/L 03/07/2023 2:15 PM T [facility] Comment:Slight hemolysis det ected by analyzer. Results may be affected. Chloride 103 98 - 107 mmol/L 03/07/2023 2:15 PM EDT [facility] CO2 27.0 22.0 - 29.0 mmol/L 03/07/2023 2:15 PM EDT [facility] Calcium 8.9 8.6 - 10.5 mg/dL 03/07/2023 2:15 PM T [facility] Total Protein 6.6 6.0 - 8.5 g/dL 03/07/2023 2:15 PM T [facility] Albumin 4.1 3.5 - 5.2 g/dL 03/07/2023 2:15 PM [facility] ALT (SGPT) 19 1 - 33 U/L 03/07/2023 2:15 PM [facility] AST (SGOT) 18 1 - 32 U/L 03/07/2023 2:15 PM T [facility] Alkaline Phosphatase 70 39 - 117 U/L 03/07/2023 2:15 PM T [facility] Total Bilirubin 0.2 0.0 - 1.2 mg/dL 03/07/2023 2:15 PM EDT [facility] Globulin 2.5 gm/dL 03/07/2023 2:15 PM T [facility] Comment:Calculated Result A/G Ratio 1.6 g/dL 03/07/2023 2:15 PM T [facility] BUN/Creatinine Ratio 15.5 7.0 - 25.0 03/07/2023 2:15 PM T [facility] Anion Gap 9.0 5.0 - 15.0 mmol/L 03/07/2023 2:15 PM T [facility] eGFR 104.4 >60.0 mL/min/1.7 3 03/07/2023 2:15 PM EDT [facility] Blood Venipuncture / Unknown 03/07/2023 12:43 PM EDT 03/07/2023 1:09 PM EDT Narrative [facility] - 03/07/2023 2:15 PM EDT GFR Normal >60 Chronic Kidney Disease <60 Kidney Failure <15 Bre Crenshaw MD LAB BLOOD ORDERABLES Final Resul t [facility]
[address] [place] [address], documented in this encounter Visit Diagnoses Diagnosis Malignant neoplasm of lower-inner quadrant of left breast in female, estrogen receptor positive Intramural leiomyoma of uterus documented in this encounter Care Teams Fast Food Manager Relationship Specialty Start Date End Date Herbert Hair MD [address] [place] [address] [address] [place] [address] PCP - General Adolescent Medicine 03/03/22 documented as of this encounter
--- OUTSIDE RECORDS SUMMARY | 2024-08-17 15:50 | XMS_ITS | Encounter Summary ---
[facility] Organization [facility] Address [address] [place] [address] Care Team Providers Care Director Manufacturing Engineering Name Role Phone Herbert Hair MD Primary Care Provider [phone] Encounter Details Date Type Department Care Team (Late st Contact Info) Description 03/05/2023 Prep for Surgery [facility] CHIEF ENGINEER PROVIDER [address] [place] [address] Erika Awad MD [address] [facility] [address] [place] [id number] Intramural leiomyoma of uterus (Primary Dx) Social History Tobacco Use Types [...] [facility] HEMATOLOGY & ONCOL[facility]Y [address] [facility] [address] [place] [phone] Bre Crenshaw MD [address] [facility] [address] [place] [address] 12/31/2024 9:00 AM EDT Office Visit [facility] UROLOGY [address] [facility] [address] [place] [address] Oralia Saha APRN [address] [facility] [address] [place] [address] 05/12/2025 1:45 PM EDT Office Visit [facility] CARDIOLOGY [address] [facility] [address] [place] [address] Obed Woodard MD [address] [facility] [address] [place] [address] documented as of this encounter Results * Urinalysis With Culture If Indicated - Urine, Clean Catch (03/07/2023 12:43 PM EDT) Color, UA Yellow Yellow, Straw 03/07/2023 1:43 PM EDT [facility] Appearance, UA Clear Clear 03/07/2023 1:43 PM EDT [facility] pH, UA 5.5 5.0 - 8.0 03/07/2023 1:43 PM EDT [facility] Specific Victoria, UA 1.018 1.001 - 1.030 03/07/2023 1:43 PM EDT [facility] Glucose, UA Negative Negative 03/07/2023 1:43 PM EDT [facility] Ketones, UA Negative Negative 03/07/2023 1:43 PM EDT [facility] Bilirubin, UA Negative Negative 03/07/2023 1:43 PM EDT [facility] Blood, UA Negative Negative 03/07/2023 1:43 PM EDT [facility] Protein, UA Negative Negative 03/07/2023 1:43 PM EDT [facility] Leuk Esterase, UA Negative Negative 03/07/2023 1:43 PM EDT [facility] Nitrite, UA Negative Negative 03/07/2023 1:43 PM EDT [facility] Urobilinogen, UA 0.2 E.U./dL 0.2 - 1.0 E.U./dL 03/07/2023 1:43 PM EDT [facility] Urine Urine specimen obtained by clean catch procedure / Unknown Collection / Unknown 03/07/2023 12:43 PM EDT 03/07/2023 1:40 PM EDT [facility] - 03/07/2023 1:43 PM EDT In absence of clinical symptoms, the presence of pyuria, bacteria, and/or nitrites on the urinalysis result does not correlate with infection. Urine microscopic not indicated. us Erika Awad MD URINE ORDERABLES Final Resul t [facility]
[address] [place] [address], documented in this encounter Visit Diagnoses Diagnosis Intramural leiomyoma of uterus- Primary documented in this encounter Care Teams Director Manufacturing Engineering Relationship Specialty Start Date End Date Herbert Hair MD [facility] [address] [place] [address] PCP - General Adolescent Medicine 03/03/22 documented as of this encounter
--- OUTSIDE RECORDS SUMMARY | 2024-08-17 15:50 | XMS_ITS | Encounter Summary ---
Author Organization [facility] Address [address] [place] [address] Care Team Providers Care Grazing Examiner Name Role Phone Herbert Hair MD Primary Care Provider + [phone] Encounter Details Date Type Department Care Team (Late st Contact Info) Description 07/04/2023 3:40 PM EDT Lab [facility] [address] [place] [phone] Malignant neoplasm of lower-outer quadrant of left breast of female, estrogen receptor positive Social History Tobacco [...] Description 09/18/2024 3:30 PM EST Office Visit [facility] HEMATOLOGY & ONCOLOGY [address] [facility] [address] [place] [address] Bre Crenshaw MD [address] [facility] [address] [place] [address] 12/31/2024 9:00 AM EDT Office Visit [facility] UROLOGY [address] [facility] [address] [place] [phone] Oralia Shaa APRN [address] [facility] [address] [place] [address] 05/12/2025 1:45 PM EDT Office Visit [facility] CARDIOLOGY [address] [place] [address] Obed Woodard MD [address] [facility] [address] [place] [address] documented as of this encounter Procedures Procedure Name Priority Date/Time Associated Diagnosis Comments CBC WITH AUTO DIFFERENTIAL Routine 07/04/2023 3:42 PM EDT Malignant neoplasm of lower-outer quadrant of left breast of female, estrogen receptor positive CBC AND DIFFERENTIAL Routine 07/04/2023 3:42 PM EDT Malignant neoplasm of lower-outer quadrant of left breast of female, estrogen receptor positive COMPREHENSIVE METABOLIC PANEL Routine 07/04/2023 3:42 PM EDT Malignant neoplasm of lower-outer quadrant of left breast of female, estrogen receptor positive documented in this encounter Results * CBC Auto Differential (07/04/2023 3:42 PM EDT) WBC 5.18 3.40 - 10.80 10*3/mm3 07/04/2023 3:44 PM EDT [facility] RBC 4.13 3.77 - 5.28 10*6/mm3 07/04/2023 3:44 PM EDT [facility] Hemoglobin 12.9 12.0 - 15.9 g/dL 07/04/2023 3:44 PM EDT [facility] Hematocrit 38.0 34.0 - 46.6 % 07/04/2023 3:44 PM EDT [facility] MCV 92.0 79.0 - 97.0 fL 07/04/2023 3:44 PM EDT [facility] MCH 31.2 26.6 - 33.0 pg 07/04/2023 3:44 PM EDT [facility] MCHC 33.9 31.5 - 35.7 g/dL 07/04/2023 3:[facility] RDW 13.1 12.3 - 15.4 % 07/04/2023 3:44 [facility] RDW-SD 44.1 37.0 - 54.0 fl 07/04/2023 3:44 [facility] MPV 9.9 6.0 - 12.0 fL 07/04/2023 3:44 PM EDT [facility] Platelets 212 140 - 450 10*3/mm3 07/04/2023 3:44 PM EDT [facility] Neutrophil % 44.6 42.7 - 76.0 % 07/04/2023 3:44 PM [facility] Lymphocyte % 44.8 19.6 - 45.3 % 07/04/2023 3:44 PM [facility] Monocyte % 6.9 5.0 - 12.0 % 07/04/2023 3:44 PM [facility] Eosinophil % 3.3 0.3 - 6.2 % 07/04/2023 3:44 PM [facility] Basophil % 0.4 0.0 - 1.5 % 07/04/2023 3:44 PM [facility] Immature Grans % 0.0 0.0 - 0.5 % 07/04/2023 3:44 PM [facility] Neutrophils, Absolute 2.31 1.70 - 7.00 10*3/mm3 07/04/2023 3:44 PM EDT [facility] Lymphocytes, Absolute 2.32 0.70 - 3.10 10*3/mm3 07/04/2023 3:44 PM EDT [facility] Monocytes, Absolute 0.36 0.10 - 0.90 10*3/mm3 07/04/2023 3:44 PM [facility] Eosinophils, Absolute 0.17 0.00 - 0.40 10*3/mm3 07/04/2023 3:44 PM EDT [facility] Basophils, Absolute 0.02 0.00 - 0.20 10*3/mm3 07/04/2023 3:44 PM EDT [facility] Immature Grans, Absolute 0.00 0.00 - 0.05 10*3/mm3 07/04/2023 3:44 PM EDT [facility] Blood Venipuncture / Unknown 07/04/2023 3:42 PM EDT 07/04/2023 3:42 PM EDT Hidla Meghan Matheus [employer]ER AND PAINTER LAB BLOOD ORDERABLES Final Result [facility]
[address] [place] [address], * (ABNORMAL) Comprehensive Metabolic Panel (07/04/2023 3:42 PM EDT) Glucose 101(H) 65 - 99 mg/dL 07/04/2023 4:53 PM EDT [facility] BUN 13 6 - 20 mg/dL 07/04/2023 4:53 PM EDT [facility] Creatinine 0.73 0.57 - 1.00 mg/dL 07/04/2023 4:53 PM EDT [facility] Sodium 139 136 - 145 mmol/L 07/04/2023 4:53 PM EDT [facility] Potassium 3.6 3.5 - 5.2 mmol/L 07/04/2023 4:53 PM EDT [facility] Comment:Slight hemolysis det ected by analyzer. Results may be affected. Chloride 101 98 - 107 mmol/L 07/04/2023 4:53 PM EDT [facility] CO2 28.0 22.0 - 29.0 mmol/L 07/04/2023 4:53 PM EDT [facility] Calcium 9.5 8.6 - 10.5 mg/dL 07/04/2023 4:53 PM EDT [facility] Total Protein 7.2 6.0 - 8.5 g/dL 07/04/2023 4:53 PM EDT [facility] Albumin 4.5 3.5 - 5.2 g/dL 07/04/2023 4:53 PM EDT [facility] ALT (SGPT) 23 1 - 33 U/L 07/04/2023 4:53 PM EDT [facility] AST (SGOT) 16 1 - 32 U/L 07/04/2023 4:53 PM EDT [facility] Alkaline Phosphatase 70 39 - 117 U/L 07/04/2023 4:53 PM EDT [facility] Total Bilirubin 0.2 0.0 - 1.2 mg/dL 07/04/2023 4:53 PM EDT [facility] Globulin 2.7 gm/dL 07/04/2023 4:53 PM EDT [facility] Comment:Calculated Result A/G Ratio 1.7 g/dL 07/04/2023 4:53 PM EDT [facility] BUN/Creatinine Ratio 17.8 7.0 - 25.0 07/04/2023 4:53 PM EDT [facility] Anion Gap 10.0 5.0 - 15.0 mmol/L 07/04/2023 4:53 PM EDT [facility] eGFR 101.0 >60.0 mL/min/1.7 3 07/04/2023 4:53 PM EDT [facility] Blood Venipuncture / Unknown 07/04/2023 3:42 PM EDT 07/04/2023 3:42 PM EDT Narrative [facility] - 07/04/2023 4:53 PM EDT GFR Normal >60 Chronic Kidney Disease <60 Kidney Failure <15 Hilda Jarvis [employer]INTER LAB BLOOD ORDERABLES Final Result [facility]
[address] [place] [address], documented in this encounter Visit Diagnoses Diagnosis Malignant neoplasm of lower-outer quadrant of left breast of female, estrogen receptor positive documented in this encounter Care Teams Grazing Examiner Relationship Specialty Start Date End Date Herbert Hair MD [address] [place] [address] PCP - General Adolescent Medicine 03/03/22 documented as of this encounter
--- OUTSIDE RECORDS SUMMARY | 2024-08-17 15:50 | XMS_ITS | Encounter Summary ---
Author Organization [facility] Address [address] [place] [address] Care Team Providers Care Supervisor Sterile Processing Name Role Phone Herbert Hair MD Primary Care Provider Encounter Details Date Type Department Care Team (Late st Contact Info) Description 06/22/2023 Telephone [facility] HEMATOLOGY & ONCOLOGY [address] [address] Bre Crenshaw MD [address] [place] [phone] Social History Tobacco Use Types Packs/Day Years [...] Telephone Encounter - Yanet Preston RN - 06/22/2023 4:16 PM EDT I talked with patient and the lymphedema specialist she sees noted a pea sized lump above and to the side of her reconstructed left breast. The lump is not under her armpit but is on the side betweenthe breast and armpit. This is the side where patient breast cancer was. Lump is hard, not red and not painful. I advised that she will need an exam and I scheduled patient to see Bria Jarvis aPRN on . Patient verbalized understanding. * Telephone Encounter - Maria E Oconnell RegSched Rep - 06/22/2023 3:51 PM EDT Patient called and stated she was at therapy and she said they found a pea size knot near her armpit she is requesting a return phone call to discuss further. documented in this encounter Plan of Treatment Upcoming Encounters Date Type Department Care Team (Late st Contact Info) Description 09/18/2024 3:30 PM EST Office Visit [facility] HEMATOLOGY & ONCOLOGY [address] [facility] [address] [place] [address] Bre Crenshaw MD [address] [facility] [address] [place] [address] 12/31/2024 9:00 AM EDT Office Visit [facility] UROLOGY [address] [facility] [address] [place] [address] Oralia Saha APRN [address] [facility] [address] [place], [place] [phone] 05/12/2025 1:45 PM EDT Office Visit [facility] CARDIOLOGY [address] [facility] [address] [place] [phone] Obed Woodard MD [address] [facility] [address] [place] [address] documented as of this encounter Visit Diagnoses Not on filedocumented in this encounter Care Teams Supervisor Sterile Processing Relationship Specialty Start Date End Date Herbert Hair MD [address] [facility] [address] [place] [address] PCP - General Adolescent Medicine 03/03/22 documented as of this encounter
--- OUTSIDE RECORDS SUMMARY | 2024-08-17 15:50 | XMS_ITS | Encounter Summary ---
Author Organization [facility] Address [address] [place] [address] Care Team Providers Care Benefits Advisor Name Role Phone Herbert Hair MD Primary Care Provider [phone] Reason for Visit * Auth/Cert (Routine) Specialty Diagnoses / Procedures Referred By Nasrin hernandez Referred To Contact Diagnoses Fibroid Procedures MN LAPS TOTAL HYSTERECT 250 GM/< W/RMVL TUBE/OVARY TOTAL LAPAROSCOPIC HYSTERECTOMY BILATERAL SALPINGOOPHORECTOMY WITH DAVINCI ROBOT, POSSIBLE TOTAL ABDOMINAL HYSTERECTOMY Referral ID Status Reason Start Date Expiration Date Visits Re quested Visits Authorized [id number] 1 1 Encounter Details Date Type Department Care Team (Late st Contact Info) Description 03/15/2023 12:41 PM EDT - 03/15/2023 3:14 PM EDT Surgery [facility] OR [address] [place] [phone] Erika Awad MD [address] [place] [address] TOTAL LAPAROSCOPIC HYSTERECTOMY BILATERAL SALPINGOOPHORECTOMY WITH DAVINCI ROBOT Social History Tobacco Use Types Packs/Day Years [...] Sign Reading Time Taken Comments Blood Pressure 135/88 03/15/2023 3:00 PM EDT Pulse 84 03/15/2023 3:00 PM EDT Temperature 36.2 ??C (97.2 ??F) 03/15/2023 3:00 PM ED T Respiratory Rate 16 03/15/2023 3:00 PM EDT Oxygen Saturation 97% 03/15/2023 3:00 PM EDT Inhaled Oxygen Concentration - - Weight 89.8 kg (198 lb) 03/15/2023 11:32 AM EDT Height 157.5 cm (5' 2 ) 03/15/2023 11:32 AM EDT Body Mass Index 36.21 03/15/2023 11:32 AM EDT documented in this encounter Discharge Instructions * Attachments The following attachments cannot be sent through Care Everywhere. * Total Laparoscopic Hysterectomy Care After ([place]) * Bilateral Salpingo-Oophorectomy Care After ([place]) * General Anesthesia Adult Care After ([place]) documented in this encounter Medications at Time [...] Ag APRN - 03/15/2023 11:05 AM EDT [facility] Pre-op Full history and physical note [...] Leydi Brown. Source Note - [employer], [place] - 03/15/2023 12:00 AM EDT documented in this encounter OR Notes * Op Note - Eriak Awad MD - 03/15/2023 1:00 PM EDT Hysterectomy Procedure Note Pre-operative Diagnosis: Fibroids Post-operative Diagnosis: Fibroids Operation: TRH with BSO of a uterus weighing greater than 250 grams. Surgeon: Erika Awad MD Assistants: Patient Access Specialist: Ant Hedrick RNFA was responsible for performing [...] uterus was sounded and fit with a Yoselin-Modern Feed intrauterine manipulator. The operators gloves were changed. [...] Description 09/18/2024 3:30 PM EST Office Visit [facility] HEMATOLOGY & ONCOLOGY [address] [facility] [address] [place] [address] Bre Crenshaw MD [address] [facility] [address] [place] [address] 12/31/2024 9:00 AM EDT Office Visit [facility] UROLOGY [address] [facility] [address] [place] [address] Oralia Saha APRN [address] [facility] [address] [place] [address] 05/12/2025 1:45 PM EDT Office Visit [facility] CARDIOLOGY [address] [facility] [address] [place] [address] Obed Woodard MD [address] [facility] [address] [place], [place] [phone] documented as of this encounter Procedures Procedure [...] Case Report Surgical Pathology Report ? Case: [id number] ? Authorizing Provider: ??Erika Awad MD ?Collected: ? 03/15/2023 02:00 PM ? Ordering Location: ? [facility] ?? Received: ?03/16/2023 06:37 AM ? OR ? Pathologist: ? Jordan Esqueda MD ? Specimen: ?Uterus with Cervix, Bilateral Tubes and Ovaries ? 03/19/2023 11:41 AM [facility] Clinical Information Fibroids 03/19/2023 11:41 AM [facility] Final Diagnosis UTERUS, CERVIX, BILATERAL OVARIES AND FALLOPIAN TUBES, HYSTERECTOMY WITH BILATERAL SALPINGO-OOPHORECT RADHA: Benign cervix with mild chronic cervicitis Denuded endometrial lining suggestive of prior ablation therapy Benign leiomyomata Benign bilateral ovaries Benign bilateral fimbriated fallopian tubes Negative for dysplasia or malignancy 03/19/2023 11:41 AM [facility] Gross Description 1. Uterus with [...] both tubes reveals a grossly unremarkable lumen. Mortgage Closing Clerk sections are submitted as follows: 1A-anterior cervix; 1B-posterior cervix; 1C-anterior endomyometrium; 1D-posterior endomyometrium; 2X-6I-pzxxpu and free-floating masses; 1J-right ovary; 1K-left ovary; 1L-right fallopian tube and fimbria; 1M-left fallopian tube and fimbria. LDP 03/19/2023 11:41 AM EDT [facility] Microscopic Description The slides are reviewed and demonstrate histopathologic features supporting the above rendered diagnosis. 03/19/2023 11:41 AM EDT [facility] Tissue Uterus and cervix, CS / Unknown 03/15/2023 2:00 PM EDT 03/16/2023 6:37 AM EDT Erika Awad MD PATHOLOGY/CYTOLOGY ORDERABLE S Final Result Performing Organization Address City/[facility]/ZIP Co de Phone Number [facility]
[address] [place] [address], [place] [phone] * POC , Urine (03/15/2023 11:49 AM EDT) HCG, Urine, QL Negative Negative [facility] Lot Number [id number] [facility] Internal Positive Control Passed Positive, Passed [facility] Internal Negative Control Passed Negative, Passed [facility] Expiration Date 01/22 [facility] Urine 03/15/2023 11:4 9 AM EDT Gerardo Tony MD POINT OF CARE TEST ORDERABLES F inal Result [facility]
[address] [place] [id number], [place] [phone] * Potassium (03/15/2023 11:39 AM EDT) Potassium 4.5 3.5 - 5.2 mmol/L 03/15/2023 11:56 AM EDT [facility] Blood Line / Unknown 03/15/2023 11 :39 AM EDT 03/15/2023 11:39 AM EDT us Gerardo Tony MD LAB BLOOD ORDERABLES Final Resu lt [facility]
[address] [place] [id number], [place] [phone] documented in this encounter Visit Diagnoses Not on filedocumented in this encounter Admitting Diagnoses Diagnosis Fibroid [...] Pain = Pain Score of 7-10, CPOT 5-8Indications:Intra mural leiomyoma of uterus Given 03/15/2023 11:46 AM EDT 1,000 mg bupivacaine-EPINEPHr ine PF (MARCAINE w/EPI) 0.5% -1:[id number] injection As Needed, Starting on Bina 03/15/23 at 1321 Given 03/15/2023 1:21 PM EDT 30 mL Abdominal Tissue droperidol (INAPSINE) 2.5 MG/ML injection - ADS Override Pull Starting on Bina 03/15/23 at 1453, For 1 dose, Created by cabinet override droperidol (INAPSINE) injection 0.625 mg 0.625 mg, Intravenous, Every 15 Minutes PRN, Nausea, Vomiting, Starting on Bina 03/15/23 at 1424, For 2 doses Given 03/15/2023 [...] Bina 03/15/23 at 1103, For 1 dose, {MARK}Indications:Int ramural leiomyoma of uterus Given 03/15/2023 11:46 AM EDT 600 mg heparin (porcine) 5000 UNIT/ML injection As Needed, Starting on Bina 03/15/23 at 1258 Given 03/15/2023 12:58 PM EDT 5,000 Units Right Lateral Thigh hydrALAZINE (APRESOLINE) injection 5 mg 5 mg, Intravenous, Every 10 Minutes PRN, High Blood Pressure, for systolic blood pressure greater than 180 mmHg or diastolic blood pressure greater than 105 mmHg, Starting on Bina 03/15/23 at 1424, Up to 20 mg. Caution: Look alike/sound alike drug alert HYDROcodone-acetamin ophen (NORCO) 5-325 MG per tablet - ADS [...] = Pain Score of 7-10, CPOT 5-8 HYDROcodone-acetamin ophen (NORCO) 5-325 MG per tablet 1 tablet [...] at 1500, For 1 dose, Created by cabinet override {MARK} Caution: Look alike/sound alike drug alert [...] Given 03/15/2023 3:05 PM EDT 0.5 mg ipratropium-albutero l (DUO-NEB) nebulizer solution 3 mL 3 mL, [...] 03/15/23 at 1424, For 2 doses, Indications: HypotensionIndicatio ns:Hypotension lactated ringers infusion 9 mL/hr, Intravenous, Continuous, Starting on Bina 03/15/23 at 1103, May switch to NS IV at O if renal / if indicated Currently Infusing [...] at 100mL/hr. sodium chloride 0.9 % solution As Needed, Starting on Bina 03/15/23 at 1322 Given 03/15/2023 1:22 PM EDT 1,000 mL sterile water irrigation solution As Needed, Starting on Bina 03/15/23 at 1322 Given 03/15/2023 1:22 PM EDT 1,000 mL documented in this encounter Active and Recently [...] Administer over 30 Minutes, Once, On Bina 623 at 1103, For 1 dose, Increase to 3 grams if weight > 120 kg Caution: Look alike/sound alike drug alert, Indications: Surgical Prophylaxis 1249 (Given - Provid er: Evonne Kim CRNA) famotidine (PEPCID) tablet 20 mg (COMPLETED) 20 mg, Oral, Once, On Bina 6//23 at 1103, For 1 dose 1146 (Given - Provid er: Oralia Chen RN) gabapentin (NEURONTIN) capsule 600 mg (COMPLETED) 600 mg, Oral, Once, On Bina 6/23 at 1103, For 1 dose, {MARK} 1146 (Given - Provid er: Oralia Chen RN) scopolamine patch 1 mg/72 hr 1 patch, Transdermal, Administer over 72 Hours, Once, On Bina 623 at 1147, For 1 dose, Do not [...] 03/14/2023 03/15/2023 bupivacaine-EPINEPHrine PF (MARCAINE w/EPI) 0.5% -1:[id number] injection (CANCELED) As Needed, Starting on Bina [...] irrigation solution (CANCELED) As Needed, Starting on Bian 03/15/23 at 1322 1322 (Given - Provid [...] and THEN promethazine IF ondansetron is ineffective. {[facility]} documented in this encounter Care Teams Benefits Advisor Relationship Specialty Start Date End Date Herbert Hair MD [facility] [address] [place] [address] PCP - General Adolescent Medicine 03/03/22 documented as of this encounter
--- OUTSIDE RECORDS SUMMARY | 2024-08-17 15:50 | XMS_ITS | Encounter Summary ---
Author Organization [facility] Address [address] [place] [address] Care Team Providers Care Food And Beverage Order Clerk Name Role Phone Herbert Hair MD Primary Care Provider [phone] Reason for Visit * Reason Onset Date Comments Med Refill 03/08/2023 Encounter Details Date Type Department Care Team (Late st Contact Info) Description 03/08/2023 Refill [facility] HEMATOLOGY & ONCOLOGY [address] [facility] [address] [place] [phone] Hilda Jarvis, ENVIRONMENTAL MARKETING REPRESENTATIVE [address] [facility] [address] [place] [id number] Malignant neoplasm of lower-outer quadrant of left breast of female, estrogen receptor positive (Primary Dx); Hypokalemia Social History Tobacco Use Types Packs/Day Years [...] Description 09/18/2024 3:30 PM EST Office Visit [facility] HEMATOLOGY & ONCOLOGY [address] [facility] [address] [place] [address] Bre Crenshaw MD [address] [facility] [address] [place] [address] 12/31/2024 9:00 AM EDT Office Visit [facility] UROLOGY [address] [facility] [address] [place] [address] Oralia Saha APRN 1760 [facility] [address] [place] [address] 05/12/2025 1:45 PM EDT Office Visit [facility] CARDIOLOGY [address] [facility] [address] [place] [address] Obed Woodard MD [address]20 [facility] [address] [place] [address] documented as of this encounter Visit Diagnoses Diagnosis Malignant neoplasm of lower-outer quadrant of left breast of female, estrogen receptor positive- Primary Hypokalemia Hypopotassemia documented in this encounter Care Teams Food And Beverage Order Clerk Relationship Specialty Start Date End Date Herbert Hair MD [address] [facility] [address] [place] [address] PCP - General Adolescent Medicine 03/03/22 documented as of this encounter
--- OUTSIDE RECORDS SUMMARY | 2024-08-17 15:50 | XMS_ITS | Encounter Summary ---
Author Organization [facility] Address [address] [place] [address] Care Team Providers Care Starting Sheet Tank Operator Name Role Phone Herbert Hair MD Primary Care Provider [phone] Reason for Visit * Reason Onset Date Comments INGRID- SPEAK TO NURSE ABOUT FATIGUE 02/05/2023 Encounter Details Date Type Department Care Team (Late st Contact Info) Description 02/05/2023 Telephone [facility] HEMATOLOGY & ONCOLOGY [address] [phone] Bre Crenshaw MD 1700 [place] [address] INGRID- SPEAK TO NURSE ABOUT FATIGUE Social History Tobacco Use Types Packs/Day Years [...] Telephone Encounter - Yanet Preston RN - 02/05/2023 11:27 AM EDT I talked with Bria Javris APRN and she said the lingering affects of radiation along with the tamoxifen are causing the fatigue and this is a usual side effect. Bria said to advise patient to try and take the medication at a different time of the day and also to talk with patient about doinglight exercise. I talked with patient and she will switch taking the tamoxifen to the morning time and also try to incorporate some walking and light exercise into her routine. She stated she would and she is getting ready for hysterectomy in March. * Telephone Encounter - Tete Vargas RegSched Rep - 02/05/2023 9:15 AM EDT Caller: Leydi Brown Relationship: Self Best call back number: [phone] What is the best time to reach you: DANIS Who are you requesting to speak with (clinical staff, provider, specific staff member): CLINICAL What was the call regarding: PT REPORTS A LOT OF FATIGUE EVEN THOUGH CHEMO WAS FINISHED END OF OCT,AND RADIATION FINISHED NOVEMBER 29. WANTS TO SPEAK TO NURSE TO SEE IF IT IS THE TAMOXIFEN OR IF THERE IS ANYTHING ELSE SHE SHOULD BE DOING DIFFERENTLY, IT IS HARD TO FUNCTION AT TIMES, STILL A LOT OF FATIGUE. Do you require a callback: YES documented in this encounter Plan of Treatment Upcoming Encounters Date Type Department Care Team (Late st Contact Info) Description 09/18/2024 3:30 PM EST Office Visit [facility] HEMATOLOGY & ONCOLOGY [address] [facility] [address] [place] [phone] Bre Crenshaw MD [address] [facility] [address] [place] [address] 12/31/2024 9:00 AM EDT Office Visit [facility] UROLOGY [address] [facility] [address] [place] [address] Sweetie SahaahDWAYNE 1760 [facility] [address] [place], [place] [id number] 05/12/2025 1:45 PM EDT Office Visit [facility] CARDIOLOGY [address] [facility] [address] [place] [phone] Obed Woodard MD 1720 [facility] [address] [place] [address] documented as of this encounter Visit Diagnoses Not on filedocumented in this encounter Care Teams Starting Sheet Tank Operator Relationship Specialty Start Date End Date Herbert Hair MD 1210 [facility] [address] [place], [place] [id number] PCP - General Adolescent Medicine 03/03/22 documented as of this encounter
--- OUTSIDE RECORDS SUMMARY | 2024-08-17 15:50 | XMS_ITS | Encounter Summary ---
Author Organization [facility] Address [address] [place] [address] Care Team Providers Care Personnel Specialist Name Role Phone Herbert Hair MD Primary Care Provider [phone] Reason for Referral * MRI/CAT/PET Scan (Routine) - Closed Specialty Diagnoses / Procedures Referred By Nasrin hernandez Referred To Contact Radiology Diagnoses Malignant neoplasm of lower-inner quadrant of left breast in female, estrogen receptor positive Subcutaneous nodule of breast Procedures NM Bone Scan Whole Body Hilda Jarvis APRN [address] [facility] [address] [place] [address] Phone: tel: fax: [facility] [address] [place] [address] Phone: tel: Referral ID Status Reason Start Date Expiration Date Visits Re quested Visits Authorized [id number] Closed 06/26/2023 06/25/2024 2 2 * MRI/CAT/PET Scan (Routine) - Closed Specialty Diagnoses / Procedures Referred By Nasrin hernandez Referred To Contact Radiology Diagnoses Malignant neoplasm of lower-inner quadrant of left breast in female, estrogen receptor positive Subcutaneous nodule of breast Procedures CT Abdomen Pelvis With Contrast Hilda Jarvis APRN [address] [place] [address] Phone: tel: fax: [address] [phone] Phone: tel: Referral ID Status Reason Start Date Expiration Date Visits Re quested Visits Authorized [id number] Closed 06/26/2023 07/25/2023 1 1 * MRI/CAT/PET Scan (Routine) - Closed Specialty Diagnoses / Procedures Referred By Contgualberto t Referred To Contact Radiology Diagnoses Malignant neoplasm of lower-inner quadrant of left breast in female, estrogen receptor positive Subcutaneous nodule of breast Procedures CT Chest With Contrast Diagnostic Hilda Jarvis APRN [address] [place] [address] Phone: tel: fax: [address] [address] Phone: tel: Referral ID Status Reason Start Date Expiration Date Visits Re quested Visits Authorized [id number] Closed 06/26/2023 07/25/2023 1 1 Encounter Details Date Type Department Care Team (Late st Contact Info) Description 06/26/2023 9:00 AM EDT Office Visit [facility] HEMATOLOGY & ONCOLOGY [address] [place] [address] Hilda Jarvis APRN [address] [place] [address] Malignant neoplasm of lower-inner quadrant of left breast in female, estrogen receptor positive (Primary Dx); Subcutaneous nodule of breast Social History Tobacco Use Types [...] Sign Reading Time Taken Comments Blood Pressure 165/104 06/26/2023 9:10 AM EDT Pulse 79 06/26/2023 9:10 AM EDT Temperature 36.3 ??C (97.3 ??F) 06/26/2023 9:10 AM ED T Respiratory Rate 18 06/26/2023 9:10 AM EDT Oxygen Saturation 98% 06/26/2023 9:10 AM EDT Inhaled Oxygen Concentration - - Weight 89.8 kg (198 lb) 06/26/2023 9:10 AM EDT Height 157.5 cm (5' 2.01 ) 06/26/2023 9:10 AM ED T Body Mass Index 36.21 06/26/2023 9:10 AM EDT documented in this encounter Progress Notes * Hilda Jarvis, QUALITY CONTROL OPERATOR - 06/26/2023 9:00 AM EDT PROBLEM LIST: 1. [id number] ER+ (90%), WV+ (10%), Her2 negative (1+) invasive ductal carcinoma [...] has been on anastrozole since 04/11/2023. She does have some joint pain particularly in her ankles and her shoulders. She uses Advil and Tylenol as needed. She felt a new nodule on her left chest wall approximately 2:00 on 06/20/2023. She continues to have occasional hot flashes and night sweats. Objective BP (!) 165/104 Pulse 79 Temp 97.3 ??F (36.3 ??C) (Infrared) Resp 18 Ht 157.5 cm (62.01 ) Wt 89.8 kg (198 lb) SpO2 98% BMI 36.21 kg/m?? Vitals: 06/26/23 0910 PainSc: 0-No pain ECOG score: 0 General: well appearing female in no acute distress Neuro: alert and oriented Lymphadenopathy: No cervical, supraclavicular or axillary lymphadenopathy noted Extremeties: no lower extremity edema Chest: Bilateral mastectomy incisions well-healed. Left chest wall at 2:00 there is a 7 mm firm fixed nodule. Skin: no lesions, bruising, or petechiae. Psych: mood and affect appropriate RECENT LABS: Lab Results Component Value Date WBC 4.80 04/11/2023 HGB 13.0 04/11/2023 HCT 38.6 04/11/2023 MCV 91.9 04/11/2023 PLT 238 04/11/2023 Lab Results Component Value Date GLUCOSE 147 (H) 04/11/2023 BUN 15 04/11/2023 CREATININE 1.16 (H) 04/11/2023 BCR 12.9 04/11/2023 K 3.3 (L) 04/11/2023 CO2 27.0 04/11/2023 CALCIUM 9.4 04/11/2023 ALBUMIN 4.3 04/11/2023 AST 16 04/11/2023 ALT 22 04/11/2023 ASSESSMENT AND PLAN: Leydi Brown is a 48 y.o. female with a T2 N1 M0 ER positive WV positive HER2 negative invasive carcinoma of the left breast. She started tamoxifen 12/07/2022. Tamoxifen was changed to anastrozole due to intolerance on 04/11/2023. She is tolerating the anastrozole relatively well. She does have some arthralgias that are controlled with ibuprofen and Tylenol. New subcutaneous nodule left chest wall: Concerning for skin recurrence. I will obtain a diagnosticmammogram with ultrasound and biopsy. I will go ahead and restage her with bone scan, CT of chest, abdomen and pelvis as well. Anxiety: Continue 30 mg of buspirone as needed. Cardiac risk: followed by cardiology. Lymphedema left upper extremity: Continue working with occupational therapy and wearing compressionsleeve. Hypokalemia: CMP pending. Bone density scan 05/14/2023 was normal. We will repeat bone density scan May 2025. Follow-up in 2 weeks. Hilda Jarvis APRN [facility] Hematology and Oncology 06/26/2023 and continue CC: documented in this encounter Plan of Treatment Upcoming Encounters Date Type Department Care Team (Late st Contact Info) Description 09/18/2024 3:30 PM EST Office Visit [facility] HEMATOLOGY & ONCOLOGY [address] [facility] [address] [place] [address] Bre Crenshaw MD 1700 [facility] [address] [place], [place] [address] 12/31/2024 9:00 AM EDT Office Visit [facility] UROLOGY [address] [facility] [address] [place] [address] Yifan OraliaDWAYNE 1760 [facility] [address] [place], [place] [phone] 05/12/2025 1:45 PM EDT Office Visit [facility] CARDIOLOGY [address] [facility] [address] [place] [address] Obed Woodard MD 1720 [facility] [address] [place], [place] [id number] documented as of this encounter Results * NM Bone Scan Whole Body (07/05/2023 2:35 PM EDT) Anatomical Region Laterality Modality Body N/A Nuclear Medicine 07/05/2023 6:27 PM EDT Impressions 07/05/2023 6:33 PM EDT Lower extremity uptake typical of DJD as noted. Negative nuclear medicine bone scan for metastatic disease. Electronically Signed: Gustavo Viveros MD 07/05/2023 6:33 PM EDT Workstation ID: [id number] [facility] 07/05/2023 6:33 PM EDT DATE OF EXAM: [...] MD 07/05/2023 6:33 PM EDT Workstation ID: [id number] Hilda Jarvis QUALITY CONTROL OPERATOR IMG NM ORDERABLES Final Re sult * CT Abdomen Pelvis With Contrast (07/05/2023 [...] MD 07/05/2023 11:10 AM EDT Workstation ID: [id number] Narrative 07/05/2023 11:[address] CHEST [...] MD 07/05/2023 11:10 AM EDT Workstation ID: [id number] Hilda Jarvis QUALITY CONTROL OPERATOR IMG CT ORDERABLES Final Re sult * [...] MD 07/05/2023 11:10 AM EDT Workstation ID: [id number] Narrative 07/05/2023 11:[address] CHEST [...] MD 07/05/2023 11:10 AM EDT Workstation ID: [id number] Hilda Jarvis QUALITY CONTROL OPERATOR IMG CT ORDERABLES Final Re sult documented in this encounter Visit Diagnoses Diagnosis Malignant neoplasm of lower-inner quadrant of left breast in female, estrogen receptor positive- Primary Subcutaneous nodule of breast Malignant neoplasm of lower-inner quadrant of left breast in female, estrogen receptor positive Subcutaneous nodule of breast Malignant neoplasm of lower-inner quadrant of left breast in female, estrogen receptor positive Subcutaneous nodule of breast documented in this encounter Care Teams Personnel Specialist Relationship Specialty Start Date End Date Herbert Hair MD [address] [place] [address] [address] [place] [id number] PCP - General Adolescent Medicine 03/03/22 documented as of this encounter
--- OUTSIDE RECORDS SUMMARY | 2024-08-17 15:50 | XMS_ITS | Encounter Summary ---
Author Organization [facility] Address [address] [place] [address] Care Team Providers Care Clerk Manager Name Role Phone Herbert Hair MD Primary Care Provider [phone] Encounter Details Date Type Department Care Team (Late st Contact Info) Description 03/07/2023 3:00 PM EDT Lab [facility] [address] [place] [phone] Malignant neoplasm of lower-outer quadrant of left [...] [facility] [address]00 [facility] [address] [place] [address] Bre Crenshaw MD 1700 [facility] [address] [place] [address] 12/31/2024 9:00 AM EDT Office Visit [facility] UROLOGY [address] [facility] [address] [place] [address] Oralia Saha APRN [address] [facility] [address] [place] [address] 05/12/2025 1:45 PM EDT Office Visit [facility] CARDIOLOGY [address] [facility] [address] [place] [phone] Obed Woodard MD 1720 [facility] [address] [place] [address] documented as of this encounter Procedures Procedure Name Priority Date/Time Associated Diagnosis Comments CBC WITH AUTO DIFFERENTIAL Routine 03/07/2023 3:03 PM EDT Malignant neoplasm of lower-outer quadrant of left breast of female, estrogen receptor positive CBC AND DIFFERENTIAL Routine 03/07/2023 3:03 PM EDT Malignant neoplasm of lower-outer quadrant of left breast of female, estrogen receptor positive COMPREHENSIVE METABOLIC PANEL Routine 03/07/2023 3:03 PM EDT Malignant neoplasm of lower-outer quadrant of left breast of female, estrogen receptor positive documented in this encounter Results * CBC Auto Differential (03/07/2023 3:03 PM EDT) WBC 4.50 3.40 - 10.80 10*3/mm3 03/07/2023 3:06 PM EDT [facility] RBC 4.13 3.77 - 5.28 10*6/mm3 03/07/2023 3:06 PM EDT [facility] Hemoglobin 12.6 12.0 - 15.9 g/dL 03/07/2023 3:06 PM EDT [facility] Hematocrit 37.7 34.0 - 46.6 % 03/07/2023 3:06 PM EDT [facility] MCV 91.3 79.0 - 97.0 fL 03/07/2023 3:06 PM EDT [facility] MCH 30.5 26.6 - 33.0 pg 03/07/2023 3:06 PM EDT [facility] MCHC 33.4 31.5 - 35.7 g/dL 03/07/2023 3:06 PM EDT [facility] RDW 14.4 12.3 - 15.4 % 03/07/2023 3:06 PM EDT [facility] RDW-SD 48.7 37.0 - 54.0 fl 03/07/2023 3:06 PM EDT [facility] MPV 10.0 6.0 - 12.0 fL 03/07/2023 3:06 PM EDT [facility] Platelets 238 140 - 450 10*3/mm3 03/07/2023 3:06 PM EDT [facility] Neutrophil % 48.4 42.7 - 76.0 % 03/07/2023 3:06 PM EDT [facility] Lymphocyte % 39.6 19.6 - 45.3 % 03/07/2023 3:06 PM EDT [facility] Monocyte % 8.7 5.0 - 12.0 % 03/07/2023 3:06 PM EDT [facility] Eosinophil % 2.9 0.3 - 6.2 % 03/07/2023 3:06 PM EDT [facility] Basophil % 0.4 0.0 - 1.5 % 03/07/2023 3:06 PM EDT [facility] Immature Grans % 0.0 0.0 - 0.5 % 03/07/2023 3:06 PM EDT [facility] Neutrophils, Absolute 2.18 1.70 - 7.00 10*3/mm3 03/07/2023 3:06 PM EDT [facility] Lymphocytes, Absolute 1.78 0.70 - 3.10 10*3/mm3 03/07/2023 3:06 PM EDT [facility] Monocytes, Absolute 0.39 0.10 - 0.90 10*3/mm3 03/07/2023 3:06 PM EDT [facility] Eosinophils, Absolute 0.13 0.00 - 0.40 10*3/mm3 03/07/2023 3:06 PM EDT [facility] Basophils, Absolute 0.02 0.00 - 0.20 10*3/mm3 03/07/2023 3:06 PM EDT [facility] Immature Grans, Absolute 0.00 0.00 - 0.05 10*3/mm3 03/07/2023 3:06 PM EDT [facility] Blood Venipuncture / Unknown 03/07/2023 3:03 PM EDT 03/07/2023 3:03 PM EDT Hilda Jarvis AMMONIA OPERATOR LAB BLOOD ORDERABLES Final Result [facility]
[address] [place] [address], * (ABNORMAL) Comprehensive Metabolic Panel (03/07/2023 3:03 PM EDT) Glucose 112(H) 65 - 99 mg/dL 03/07/2023 4:34 PM EDT [facility] BUN 11 6 - 20 mg/dL 03/07/2023 4:34 PM T [facility] Creatinine 0.65 0.57 - 1.00 mg/dL 03/07/2023 4:34 PM T [facility] Sodium 139 136 - 145 mmol/L 03/07/2023 4:34 PM [facility] Potassium 3.2(L) 3.5 - 5.2 mmol/L 03/07/2023 4:34 PM T [facility] Comment:Slight hemolysis det ected by analyzer. Results may be affected. Chloride 102 98 - 107 mmol/L 03/07/2023 4:34 PM [facility] CO2 27.0 22.0 - 29.0 mmol/L 03/07/2023 4:34 PM [facility] Calcium 8.7 8.6 - 10.5 mg/dL 03/07/2023 4:34 PM [facility] Total Protein 6.9 6.0 - 8.5 g/dL 03/07/2023 4:34 PM [facility] Albumin 4.2 3.5 - 5.2 g/dL 03/07/2023 4:34 PM [facility] ALT (SGPT) 20 1 - 33 U/L 03/07/2023 4:34 PM [facility] AST (SGOT) 22 1 - 32 U/L 03/07/2023 4:34 PM T [facility] Alkaline Phosphatase 71 39 - 117 U/L 03/07/2023 4:34 PM [facility] Total Bilirubin 0.2 0.0 - 1.2 mg/dL 03/07/2023 4:34 PM [facility] Globulin 2.7 gm/dL 03/07/2023 4:34 PM [facility] Comment:Calculated Result A/G Ratio 1.6 g/dL 03/07/2023 4:34 PM T [facility] BUN/Creatinine Ratio 16.9 7.0 - 25.0 03/07/2023 4:34 PM EDT [facility] Anion Gap 10.0 5.0 - 15.0 mmol/L 03/07/2023 4:34 PM EDT [facility] eGFR 108.1 >60.0 mL/min/1.7 3 03/07/2023 4:34 PM EDT [facility] Blood Venipuncture / Unknown 03/07/2023 3:03 PM EDT 03/07/2023 3:03 PM EDT Narrative [facility] - 03/07/2023 4:34 PM EDT GFR Normal >60 Chronic Kidney Disease <60 Kidney Failure <15 Hilda Jarvis AMMONIA OPERATOR LAB BLOOD ORDERABLES Final Result [facility]
[address] [place] [address], documented in this encounter Visit Diagnoses Diagnosis Malignant neoplasm of lower-outer quadrant of left breast of female, estrogen receptor positive documented in this encounter Care Teams Clerk Manager Relationship Specialty Start Date End Date Herbert Hair MD [address] [place] [address] PCP - General Adolescent Medicine 03/03/22 documented as of this encounter
--- OUTSIDE RECORDS SUMMARY | 2024-08-17 15:50 | XMS_ITS | Encounter Summary ---
Author Organization [facility] Address [address] [place] [address] Care Team Providers Care Pick Up Man Name Role Phone Herbert Hair MD Primary Care Provider + [phone] Reason for Referral * Diagnostic Imaging (Routine) - Closed Specialty Diagnoses / Procedures Referred By Nasrin hernandez Referred To Contact Radiology Diagnoses Aromatase inhibitor use Procedures DEXA Bone Density Axial Hilda Jarvis APRN [address] [facility] [address] [place] [address] Phone: tel: fax: [address] [address] Phone: tel: Referral ID Status Reason Start Date Expiration Date Visits Re quested Visits Authorized [id number] Closed 04/11/2023 04/10/2024 1 1 Encounter Details Date Type Department Care Team (Late st Contact Info) Description 04/11/2023 1:30 PM EDT Office Visit [facility] HEMATOLOGY & ONCOLOGY [address] [facility] [address] [place] [id number] Hilda Jarvis, TRACTOR TRAILER OPERATOR 17[address] [facility] [address] [place] [address] Malignant neoplasm of lower-outer quadrant of left breast of female, estrogen receptor positive (Primary Dx); Aromatase inhibitor use Social History Tobacco Use Types Packs/Day Years [...] Sign Reading Time Taken Comments Blood Pressure 140/92 04/11/2023 1:20 PM EDT Pulse 96 04/11/2023 1:20 PM EDT Temperature 36.2 ??C (97.1 ??F) 04/11/2023 1:20 PM ED T Respiratory Rate - - Oxygen Saturation 100% 04/11/2023 1:20 PM EDT Inhaled Oxygen Concentration - - Weight 88.9 kg (196 lb) 04/11/2023 1:20 PM EDT Height 157.5 cm (5' 2.01 ) 04/11/2023 1:20 PM ED T Body Mass Index 35.84 04/11/2023 1:20 PM EDT documented in this encounter Progress Notes * Hilda Jarvis, TRACTOR TRAILER OPERATOR - 04/11/2023 1:30 PM EDT PROBLEM LIST: 1. [id number] ER+ (90%), NH+ (10%), Her2 negative (1+) invasive ductal carcinoma [...] Leydi Brown returns for follow-up. She has continued to hold tamoxifen since 02/22/2023 since she had a hysterectomy March 15, 2023. She tolerated her hysterectomy well. Overall she is doing well. She continues to have some left upper extremity lymphedema and lymphedema in the chest wall. She continues to have occasional hot flashes and night sweats. Objective BP 140/92 Pulse 96 Temp 97.1 ??F (36.2 ??C) (Infrared) Ht 157.5 cm (62.01 ) Wt 88.9 kg (196lb) SpO2 100% BMI 35.84 kg/m?? Vitals: 04/11/23 1320 PainSc: 0-No pain General: well appearing female in no acute distress Neuro: alert and oriented Extremeties: no lower extremity edema Skin: no lesions, bruising, or petechiae. Psych: mood and affect appropriate RECENT LABS: Lab Results Component Value Date WBC 4.80 04/11/2023 HGB 13.0 04/11/2023 HCT 38.6 04/11/2023 MCV 91.9 04/11/2023 PLT 238 04/11/2023 Lab Results Component Value Date GLUCOSE 112 (H) 03/07/2023 BUN 11 03/07/2023 CREATININE 0.65 03/07/2023 BCR 16.9 03/07/2023 K 4.5 03/15/2023 CO2 27.0 03/07/2023 CALCIUM 8.7 03/07/2023 ALBUMIN 4.2 03/07/2023 AST 22 03/07/2023 ALT 20 03/07/2023 ASSESSMENT AND PLAN: Leydi Brown is a 48 y.o. female with a T2 N1 M0 ER positive NH positive HER2 negative invasive carcinoma of the left breast. Tamoxifen started 12/07/2022. Tamoxifen has been on hold since February 22, 2023 due to hysterectomy on March 15, 2023. She would like to stop the tamoxifen completely due to intolerable side effects. We discussed the side effects of anastrozole including hot flashes, vaginal dryness, joint pain, decrease in bone density, and mood or sleep disturbance. New prescription for anastrozole sent to pharmacy today. Anxiety: Continue 30 mg of buspirone as needed. Cardiac risk: followed by cardiology. Lymphedema left upper extremity: Continue working with occupational therapy and wearing compressionsleeve. Hypokalemia: CMP pending. Order placed for baseline bone density scan. Follow-up in 3 months with labs on return Hilda Jarvis APRN [facility] Hematology and Oncology 04/11/2023 and continue CC: documented in this encounter Plan of Treatment Upcoming Encounters Date Type Department Care Team (Late st Contact Info) Description 09/18/2024 3:30 PM EST Office Visit [facility] HEMATOLOGY & ONCOLOGY [address] [facility] [address] [place] [address] Bre Crenshaw MD [address] [facility] [address] [place], [place] [id number] 12/31/2024 9:00 AM EDT Office Visit [facility] UROLOGY [address] [facility] [address] [place] [address] Oralia Saha APRN [address]60 [facility] [address] [place], [place] [id number] 05/12/2025 1:45 PM EDT Office Visit [facility] CARDIOLOGY [address] [facility] [address] [place] [address] Obed Woodard MD [address] [facility] [address] [place], [place] [id number] documented as of this encounter Results * (ABNORMAL) Comprehensive Metabolic Panel (07/04/2023 3:42 PM EDT) [facility] Glucose 101(H) 65 - 99 mg/dL 07/04/2023 4:53 PM EDT [facility] BUN 13 6 - 20 mg/dL 07/04/2023 4:53 PM EDT [facility] Creatinine 0.73 0.57 - 1.00 mg/dL 07/04/2023 4:53 PM EDT [facility] Sodium 139 136 - 145 mmol/L 07/04/2023 4:53 PM EDT [facility] Potassium 3.6 3.5 - 5.2 mmol/L 07/04/2023 4:53 PM EDT [facility] Comment:Slight hemolysis det ected by analyzer. Results may be affected. Chloride 101 98 - 107 mmol/L 07/04/2023 4:53 PM EDT [facility] CO2 28.0 22.0 - 29.0 mmol/L 07/04/2023 4:53 PM EDT [facility] Calcium 9.5 8.6 - 10.5 mg/dL 07/04/2023 4:53 PM EDT [facility] Total Protein 7.2 6.0 - 8.5 g/dL 07/04/2023 4:53 PM EDT [facility] Albumin 4.5 3.5 - 5.2 g/dL 07/04/2023 4:53 PM EDT [facility] ALT (SGPT) 23 1 - 33 U/L 07/04/2023 4:53 PM EDT [facility] AST (SGOT) 16 1 - 32 U/L 07/04/2023 4:53 PM EDT [facility] Alkaline Phosphatase 70 39 - 117 U/L 07/04/2023 4:53 PM EDT [facility] Total Bilirubin 0.2 0.0 - 1.2 mg/dL 07/04/2023 4:53 PM EDT [facility] Globulin 2.7 gm/dL 07/04/2023 4:53 PM EDT [facility] Comment:Calculated Result A/G Ratio 1.7 g/dL 07/04/2023 4:53 PM EDT [facility] BUN/Creatinine Ratio 17.8 7.0 - 25.0 07/04/2023 4:53 PM EDT [facility] Anion Gap 10.0 5.0 - 15.0 mmol/L 07/04/2023 4:53 PM EDT [facility] eGFR 101.0 >60.0 mL/min/1.7 3 07/04/2023 4:53 PM EDT [facility] Blood Venipuncture / Unknown 07/04/2023 3:42 PM EDT 07/04/2023 3:42 PM EDT Narrative [facility] - 07/04/2023 4:53 PM EDT GFR Normal >60 Chronic Kidney Disease <60 Kidney Failure <15 Hilda Jarvis APRN LAB BLOOD ORDERABLES Final Result [facility]
[address] [place], [place] [address] [phone] * DEXA Bone Density Axial (05/14/2023 10:16 AM EDT) Anatomical Region Laterality Modality Wrist, Hip, L-spine N/A Bone Density 05/14/2023 10:2 6 AM EDT Impressions 05/17/2023 12:54 PM EDT Bone mineral density results are within normal limits. The ten year fracture risk assessment was not calculated because all T-scores were at or above -1.0. All the treatment decisions require clinical judgment and consideration of individual patient factors, including patient preferences, co-morbidities, previous drug use, risk factors not captured in the FRAX model (frailty, falls, vitamin D deficiency, increased bone turnover, interval significant decline in bone density) and possible under or over estimation of fracture risk by FRAX. Approaches to reduce osteoporosis related fracture risk include optimizing calcium and vitamin D status, appropriate weight bearing exercises and fall-prevention measurements. ??The National Osteoporosis Foundation recommends (http://www.nof.org/hcp/practice/mxmfotoy-zld-gunwdhry-guidelines/clinicians-halle de) that FDA-approved medical therapies be considered in postmenopausal women and men aged equal or greater than 50 years with : ??a) hip or vertebral (clinical or morphometric) fracture; b) T-score of -2.5 or less at the spine or hip; c) Ten-year fracture probability by FRAX of greater than 3% for hip fracture of greater than 20% for major osteoporotic fracture. ?? Secondary causes of bone loss should be evaluated if clinically indicated since the etiology of low BMD cannot be determined by BMD measurement alone. FOLLOWUP: Consider repeating the study in 2-3 years to reassess the patient's status or sooner if there is some new clinical indication. INTERVAL CHANGE: ?? There are no equivalent studies available for comparison. ?? At this facility, the least significant change in the BMD at the left hip with 95% confidence is 0.229487 gm/cm2 at the hip and 0.605887 g/cm2 at the lumbar spine. Electronically Signed: Bacilio Lainez MD 05/17/2023 12:54 PM EDT Workstation ID: [id number] Narrative 05/17/2023 12:54 PM EDT DUAL-ENERGY X-RAY ABSORPTIOMETRY (DXA) INDICATION: Postmenopausal, cancer, hysterectomy COMPARISON: There are no equivalent studies available for comparison PROCEDURE: A DXA scan was performed using a Hologic densitometer. The lumbar spine L1-L4 was evaluated as well as bilateral total hip. The T-score compares the patient's bone mineral density with the peak bone mass of young normal patients. ??According to criteria established by the World Health Organization, patients with T-scores ??between 1.0 and 2.5 standard deviations BELOW the mean are osteopenic (low bone mass). ??Patients with T-scores EQUAL TO OR GREATER than 2.5 standard deviations below the mean are osteoporotic. The Z-score compares the patient bone mineral density with age and sex matched peers. ??According to the International Society for Clinical Densitometry's 2007 consensus conference: ??In women prior to menopause and men less than age 50, Z-scores, not T-scores are preferred. ??A Z-score of -2.0 or lower is defined as below the expected range for age and a Z-score above -2.0 is within the expected range for age. ??The WHO diagnostic criteria may be applied in women in the menopausal transition. ?? Osteoporosis cannot be diagnosed in men under age 50 on the basis of BMD alone. TECHNICAL QUALITY: ??The study is of good technical quality. RESULTS: Lumbar Spine: ??The BMD measured in the L1-L4 region is 0.885 g/cm2. ??The average T-score is -0.6. ??The Z-score is 0.1. Total Hip: ??The BMD measured at the left total proximal femur is 1.056 g/cm2. ??The T-score is 0.9. ??The Z-score is 1.4. Femoral Neck: ??The BMD measured at the left femoral neck is 0.951 g/cm2. ??The T-score is 0.9. ??The Z-score is 1.6. Total Hip: ??The BMD measured at the right total proximal femur is 1.073 g/cm2. ??The T-score is 1.1. ??The Z-score is 1.5. Femoral neck: The BMD measured at the right femoral neck is 0.982 g/cm2. The T score is 0.4. The Z score is 1.1. Procedure Note Suma Whitlock PA - 05/17/2023 DUAL-ENERGY X-RAY ABSORPTIOMETRY (DXA) INDICATION: Postmenopausal, cancer, hysterectomy COMPARISON: There are no equivalent studies available for comparison PROCEDURE: A DXA scan was performed using a Hologic densitometer. The lumbar spine L1-L4 was evaluated as well as bilateral total hip. The T-score compares the patient's bone mineral density with the peak bonemass of young normal patients. According to criteria established by the[facility] Organization, patients with T-scores between 1.0 and 2.5standard deviations BELOW the mean are osteopenic (low bone mass). Patients with T-scores EQUAL TO ORGREATER than 2.5 standard deviations below the mean are osteoporotic. The Z-score compares the patient bone mineral density with age and sexmatched peers. According to the International Society for ClinicalDensitometry's 2007 consensus conference: In women prior to menopause andmen less than age 50, Z-scores, not T-scores are preferred. A Z-score of -2.0 or lower is defined as belowthe expected range for age and a Z-score above -2.0 is within theexpected range for age. The WHO diagnostic criteria may be applied inwomen in the menopausal transition. Osteoporosis cannot be diagnosed in men under age 50 on the basis of BMDalone. TECHNICAL QUALITY: The study is of good technical quality. RESULTS: Lumbar Spine: The BMD measured in the L1-L4 region is 0.885 g/cm2. Theaverage T- score is -0.6. The Z-score is 0.1. Total Hip: The BMD measured at the left total proximal femur is 1.056g/cm2. The T-score is 0.9. The Z-score is 1.4. Femoral Neck: The BMD measured at the left femoral neck is 0.951 g/cm2.The T- score is 0.9. The Z-score is 1.6. Total Hip: The BMD measured at the right total proximal femur is 1.073g/cm2. The T-score is 1.1. The Z-score is 1.5. Femoral neck: The BMD measured at the right femoral neck is 0.982 g/cm2.The T score is 0.4. The Z score is 1.1. IMPRESSION: Bone mineral density results are within normal limits. The ten year fracture risk assessment was not calculated because allT-scores were at or above -1.0. All the treatment decisions require clinical judgment and consideration ofindividual patient factors, including patient preferences, co-morbidities,previous drug use, risk factors not captured in the FRAX model (frailty,falls, vitamin D deficiency, increased bone turnover, interval significant decline in bone density) andpossible under or over estimation of fracture risk by FRAX. Approaches toreduce osteoporosis related fracture risk include optimizing calcium andvitamin D status, appropriate weight bearing exercises and fall-prevention measurements. The NationalOsteoporosis Foundation recommends(http://www.nof.org/hcp/practice/ewjiahbf-yez-twzrgmcp-guidelines/clin ician s-guide) that FDA-approved medical therapies be considered in postmenopausal women and men aged equal or greater than 50 years with :a) hip or vertebral (clinical or morphometric) fracture; b) T-score of-2.5 or less at the spine or hip; c) Ten-year fracture probability by FRAXof greater than 3% for hip fracture of greater than 20% for major osteoporotic fracture. Secondary causes of bone loss should be evaluated if clinically indicatedsince the etiology of low BMD cannot be determined by BMD measurementalone. FOLLOWUP: Consider repeating the study in 2-3 years to reassess thepatient's status or sooner if there is some new clinical indication. INTERVAL CHANGE: There are no equivalent studies available forcomparison. At this facility, the least significant change in the BMD at the left hipwith 95% confidence is 0.850525 gm/cm2 at the hip and 0.414387 g/cm2 atthe lumbar spine. Electronically Signed: Bacilio Lainez MD 05/17/2023 12:54 PM EDT Workstation ID: [id number] Hilda Jarvis TRACTOR TRAILER OPERATOR IM DXA ORDERABLES Final R esult documented in this encounter Visit Diagnoses Diagnosis Malignant neoplasm of lower-outer quadrant of left breast of female, estrogen receptor positive- Primary Aromatase inhibitor use Aromatase inhibitor use documented in this encounter Care Teams Pick Up Man Relationship Specialty Start Date End Date Herbert Hair MD Pending sale to [facility] [address] [facility] [place] [address] PCP - General Adolescent Medicine 03/03/22 documented as of this encounter
--- OUTSIDE RECORDS SUMMARY | 2024-08-17 15:50 | XMS_ITS | Encounter Summary ---
Author Organization [facility] Address [address] [place] [address] Care Team Providers Care Property Investor Name Role Phone Herbert Hair MD Primary Care Provider + [phone] Reason for Referral * Diagnostic Imaging (Routine) - Closed Specialty Diagnoses / Procedures Referred By Contac t Referred To Contact Radiology Diagnoses Aromatase inhibitor use Procedures DEXA Bone Density Axial Hilda Jarvis APRN [address] [place] [address] Phone: tel: fax: [address] [address] Phone: tel: Referral ID Status Reason Start Date Expiration Date Visits Re quested Visits Authorized [id number] Closed 04/11/2023 04/10/2024 1 1 Reason for Visit * Diagnostic Imaging (Routine) - Closed Specialty Diagnoses / Procedures Referred By Contac t Referred To Contact Radiology Diagnoses Aromatase inhibitor use Procedures DEXA Bone Density Axial Hilda Jarvis APRN [address] [facility] [address] [place] [id number] Phone: tel: fax: [facility] [address] [place] [address] Phone: tel: Referral ID Status Reason Start Date Expiration Date Visits Re quested Visits Authorized [id number] Closed 04/11/2023 04/10/2024 1 1 Encounter Details Date Type Department Care Team (Late st Contact Info) Description 05/14/2023 9:55 AM EDT - 05/14/2023 11:59 PM EDT Hospital Encounter [facility] DEXA [address] [facility] [address] [place] [address] Hilda Jarvis, CHILDRENS CLUB ATTENDANT [address] [facility] [address] [place] [address] Aromatase inhibitor use Discharge Disposition: Home or Self Care Social [...] Day. 2nd time at bedtime. 08/11/2022 4 telmisartan-hydroc hlorothiazide (MICARDIS HCT) 40-12.5 MG [...] [facility] [address] [facility] [address] [place] [address] Bre Crenshaw MD [address] [facility] [address] [place] [address] 12/31/2024 9:00 AM EDT Office Visit [facility] UROLOGY [address] [facility] [address] [place] [address] Oralia Saha APRN [address] [facility] [address] [place], [place] [id number] 05/12/2025 1:45 PM EDT Office Visit [facility] CARDIOLOGY [address] [facility] [address] [place] [address] Obed Woodard MD [address] [facility] [address] [place], [place] [id number] documented as of this encounter Procedures Procedure Name Priority Date/Time Associated Diagnosis Comments DEXA BONE DENSITY AXIAL Routine 05/14/2023 10:16 AM EDT Aromatase inhibitor use documented in this encounter Results * DEXA Bone Density Axial (05/14/2023 10:16 [...] fall-prevention measurements. ??The National Osteoporosis Foundation recommends (http://www.nof.org/hcp/practice/xiwypkkg-btl-nmrclroh-guidelines/clinicians-halle de) that FDA-approved medical therapies be considered [...] the left hip with 95% confidence is 0.675378 gm/cm2 at the hip and 0.713838 g/cm2 at the lumbar spine. Electronically Signed: Bacilio Lainez MD 05/17/2023 12:54 PM EDT Workstation ID: [id number] Narrative 05/17/2023 12:54 PM EDT DUAL-ENERGY X-RAY [...] normal patients. According to criteria established by the[facility], patients with T-scores between 1.0 and [...] exercises and fall-prevention measurements. The NationalOsteoporosis Foundation recommends(http://www.nof.org/hcp/practice/gglwuouq-scl-pkvowozr-guidelines/clin ician s-guide) that FDA-approved medical therapies be [...] at the left hipwith 95% confidence is 0.742217 gm/cm2 at the hip and 0.801054 g/cm2 atthe lumbar spine. Electronically Signed: Bacilio Lainez MD 05/17/2023 12:54 PM EDT Workstation ID: [id number] Hilda Jarvis CHILDRENS CLUB ATTENDANT IMG DXA ORDERABLES Final R esult documented in this encounter Visit Diagnoses Diagnosis Aromatase inhibitor use documented in this encounter Care Teams Property Investor Relationship Specialty Start Date End Date Herbert Hair MD [address] [facility] [address] [place] [address] PCP - General Adolescent Medicine 03/03/22 documented as of this encounter
--- OUTSIDE RECORDS SUMMARY | 2024-08-17 15:50 | XMS_ITS | Encounter Summary ---
Author Organization [facility] Address [address] [place] [address] Care Team Providers Care Spacecraft Systems Engineer Name Role Phone Herbert Hair MD Primary Care Provider [phone] Reason for Referral * MRI/CAT/PET Scan (Routine) - Closed Specialty Diagnoses / Procedures Referred By Nasrin hernandez Referred To Contact Radiology Diagnoses Malignant neoplasm of lower-inner quadrant of left breast in female, estrogen receptor positive Subcutaneous nodule of breast Procedures NM Bone Scan Whole Body Hilda Jarvis APRN 1700 [facility] [address] [place] [address] Phone: tel: fax: [facility] NUCLEAR MEDICINE [address] [place] [address] Phone: tel: Referral ID Status Reason Start Date Expiration Date Visits Re quested Visits Authorized [id number] Closed 06/26/2023 06/25/2024 2 2 Reason for Visit * MRI/CAT/PET Scan (Routine) - Closed Specialty Diagnoses / Procedures Referred By Contac t Referred To Contact Radiology Diagnoses Malignant neoplasm of lower-inner quadrant of left breast in female, estrogen receptor positive Subcutaneous nodule of breast Procedures NM Bone Scan Whole Body Hilda Jarvis, NAILING MACHINE OPERATOR [address] [facility] [address] [place] [address] Phone: tel: fax: [facility] [address] [place] [address] Phone: tel: Referral ID Status Reason Start Date Expiration Date Visits Re quested Visits Authorized [id number] Closed 06/26/2023 06/25/2024 2 2 Encounter Details Date Type Department Care Team (Latest Contact Info) Description 07/05/2023 10:20 AM EDT - 07/05/2023 11:59 PM EDT Hospital Encounter [facility] [address] [facility] [place] [address] Malignant neoplasm of lower-inner quadrant [...] 09/18/2024 3:30 PM EST Office Visit [facility] [address] [facility] [address] [place] [id number] Bre Crenshaw MD [address] [facility] [address] [place] [address] 12/31/2024 9:00 AM EDT Office Visit [facility] [address] [facility] [address] [place] [address] Oralia Saha APRN [address]60 [facility] [address] [place], [place] [id number] 05/12/2025 1:45 PM EDT Office Visit [facility] C[facility]OLOG[facility] [address]20 [facility] [address] [place] [id number] Obed Woodard MD [address] [facility] [address] [place], [place] [address] documented as of this encounter Procedures Procedure [...] MD 07/05/2023 6:33 PM EDT Workstation ID: [id number] Narrative 07/05/2023 6:33 PM EDT DATE OF [...] MD 07/05/2023 6:33 PM EDT Workstation ID: [id number] Hilda Jarvis APRN IMG NM ORDERABLES Final Re sult documented in this encounter Visit Diagnoses Diagnosis Malignant neoplasm of lower-inner quadrant of left breast in female, estrogen receptor positive Subcutaneous nodule of breast documented in this encounter Administered Medications Inactive Administered Medications - up to 3 most recent administrations Medication Order MAR Action Action Date Dose Rate Site technetium medronate (MDP MULTIDOSE) injection 26.3 millicurie 26.3 millicurie, Intravenous, Once in Imaging, On Bina 07/05/23 at 1042, For 1 dose Given 07/05/2023 10:30 AM EDT 26.3 millicuries documented in this encounter Care Teams Spacecraft Systems Engineer Relationship Specialty Start Date End Date Herbert Hair MD [address] [place] [facility] [address] [place] [id number] PCP - General Adolescent Medicine 03/03/22 documented as of this encounter
--- OUTSIDE RECORDS SUMMARY | 2024-08-17 15:50 | XMS_ITS | Encounter Summary ---
Author Organization [facility] Address [address] [place] [address] Care Team Providers Care Refuge Manager Name Role Phone Herbert Hair MD Primary Care Provider + [phone] Reason for Referral * Diagnostic Imaging (Routine) - Closed Specialty Diagnoses / Procedures Referred By Nasrin t Referred To Contact Diagnoses Malignant neoplasm of lower-inner quadrant of left breast in female, estrogen receptor positive Procedures Adult Transthoracic Echo Limited W/ Cont if Necessary Per Protocol Obed Woodard MD [address] [place] [address] [address] [address] Phone: tel: fax: [address] [address] Phone: tel: Referral ID Status Reason Start Date Expiration Date Visits Re quested Visits Authorized [id number] Closed 06/05/2023 06/04/2024 1 1 * Cardiac Stress Testing (Routine) - Closed Specialty Diagnoses / Procedures Referred By Contac t Referred To Contact Diagnoses Chronic chest pain with low to moderate risk for CAD Procedures Stress Test With Myocardial Perfusion One Day Obed Woodard MD [address] [place] [address] Phone: tel: fax: [facility] [address] [place] [address] Phone: tel: Referral ID Status Reason Start Date Expiration Date Visits Re quested Visits Authorized [id number] Closed 06/05/2023 06/04/2024 4 4 Reason for Visit * Reason Comments Status post administration of cardiotoxi c Chemotherapy Encounter Details Date Type Department Care Team (Late st Contact Info) Description 06/05/2023 1:45 PM EDT Office Visit [facility] [address] [facility] [address] [place] [phone] Obed Woodard MD [address] [place] [address] Chronic chest pain with low to moderate risk for CAD (Primary Dx); Malignant neoplasm of lower-inner quadrant of left [...] Sign Reading Time Taken Comments Blood Pressure 130/82 06/05/2023 1:40 PM EDT Pulse 85 06/05/2023 1:40 PM EDT Temperature - - Respiratory Rate - - Oxygen Saturation 96% 06/05/2023 1:40 PM EDT Inhaled Oxygen Concentration - - Weight 90.7 kg (200 lb) 06/05/2023 1:40 PM EDT Height 157.5 cm (5' 2.01 ) 06/05/2023 1:40 PM ED T Body Mass Index 36.57 06/05/2023 1:40 PM EDT documented in this encounter Progress Notes * Obed Woodard MD - 06/05/2023 1:45 PM EDT [facility] Cardiology Follow Up Visit Leydi Singh [place] 1975 VISIT DATE: 06/05/23 PCP: Herbert Hair MD [address] [facility] [address] [facility] CC: Status post administration of cardiotoxic Chemotherapy Problem List: 1. Left breast CA: Estrogen progesterone positive, HER2 negative. - bilateral mastectomy 2. Hypertension 3. Hypothyroid 4. GERD 5. Migraine 6. Status post hysterectomy Echo June 2022: Left ventricular ejection fraction appears to be 61 - 65%. Left ventricular systolic function is normal. Borderline global longitudinal strain of -17.3% No significant valvular disease. There is no evidence of pericardial effusion. Echo October 2022 Left ventricular systolic function is normal. Calculated left ventricular EF = 61% Left ventricularejection fraction appears to be 61 - 65%. Normal global longitudinal LV strain (GLS) = -19.0%. There is no evidence of pericardial effusion History of Present Illness: Leydi Brown Is a 48 y.o. female with pertinent cardiac history detailed above. Patient here for cardio oncology follow-up and hypertension. She required anthracycline chemo followed by Taxol. She also took radiation. Completed everything in November. Last week she had an episode of foot swelling that seemed to resolve. Was worse when it was warmer outside. She does get dyspnea on exertion and has had some intermittent chest pains. No complaints today. Her blood pressure is within normal limits today. No lower extremity edema in the office today. We discussed additional testing including a stress test, and additional post-treatment echocardiogram. She is now on anastrozole and has hada hysterectomy. Her LDL last year was 107. I recommended she get updated lipids to assess if she should be on statin therapy moving forward. She is agreeable. Patient Active Problem List Diagnosis Date Noted Fibroid 03/05/2023 Encounter for care related to [...] use: Never Sexual activity: Defer Comment: vasectomy Family History Problem Relation Age of Onset [...] 2nd time at bedtime., Disp: , Rfl: esomeprazole (nexIUM) 20 MG [...] capsule by mouth Daily., Disp: , Rfl: [facility] Natural Products (OSTEO BI-FLEX ADV JOINT SHIELD PO), Take 1 tablet by mouth Daily., Disp: , Rfl: MV-Min-Fe Fum-FA-DHA ( Multivitamin Plus DHA) 27-0.8-250 MG capsule, Take 1 dose by mouth Daily., Disp: , Rfl: propranolol (INDERAL) 20 MG tablet, Take 1 tablet by mouth every night at bedtime., Disp: , Rfl: telmisartan-hydrochlorothiazide (MICARDIS HCT) 40-12.5 MG per tablet, Take 1 tablet by mouth Every Evening., Disp: , Rfl: vitamin B-12 (CYANOCOBALAMIN) 1000 MCG tablet, Take 1 tablet by mouth Daily., Disp: , Rfl: vitamin E 400 UNIT capsule, Take 1 capsule by mouth Daily., Disp: , Rfl: Review of Systems Cardiovascular: Positive for chest pain, dyspnea on exertion and leg swelling. Respiratory: Negative for shortness of breath. Vitals: 06/05/23 1340 BP: 130/82 BP Location: Right arm Patient Position: Sitting Pulse: 85 SpO2: 96% Weight: 90.7 kg (200 lb) Height: 157.5 cm (62.01 ) Physical Exam Constitutional: Appearance: Normal appearance. Cardiovascular: Rate and Rhythm: Normal rate and regular rhythm. Pulses: Normal pulses. Heart sounds: Normal heart sounds. Pulmonary: Effort: Pulmonary effort is normal. Breath sounds: Normal breath sounds. Musculoskeletal: Right lower leg: No edema. Left lower leg: No edema. Neurological: Mental Status: She is alert. Diagnostic Data: Procedures Lab Results Component Value Date TRIG 84 07/26/2022 HDL 47 07/26/2022 Lab Results Component Value Date GLUCOSE 147 (H) 04/11/2023 BUN 15 04/11/2023 CREATININE 1.16 (H) 04/11/2023 NA 141 04/11/2023 K 3.3 (L) 04/11/2023 CL 102 04/11/2023 CO2 27.0 04/11/2023 Lab Results Component Value Date HGBA1C 5.70 (H) 06/09/2022 Lab Results Component Value Date WBC 4.80 04/11/2023 HGB 13.0 04/11/2023 HCT 38.6 04/11/2023 PLT 238 04/11/2023 Assessment: Diagnosis Plan 1. Chronic chest pain with low to moderate risk for CAD Stress Test With Myocardial Perfusion One Day Lipid Panel Comprehensive Metabolic Panel Plan: 1. Left breast cancer -Status postmastectomy -Normal EF on baseline echo, borderline strain. -Completed anthracycline chemo -Completed radiation -On anastrozole -Last echo Echo with normal EF and strain -Lipids, proBNP, troponin checked initial dose acceptable. -Due to complaints of dyspnea on exertion and intermittent swelling we will obtain a stress test aswell as an additional echocardiogram -Commended starting aspirin 81 mg daily and continuing at least until stress test is completed 2. HTN -Telmisartan-HCTZ -Propanolol -Controlled no changes 3. Healthcare maintenance -Repeat lipid panel and assess need for statin therapy, she is on anastrozole which can affect her lipid ACP discussion was held with the patient during this visit. Patient does not have an advance directive, declines further assistance. Obed Woodard MD FACC documented in this encounter Plan of Treatment Upcoming Encounters Date Type Department Care Team (Late st Contact Info) Description 09/18/2024 3:30 PM EST Office Visit [facility] [address] [facility] [address] [place] [phone] Bre Crenshaw MD [address] [facility] [address] [place], [place] [id number] 12/31/2024 9:00 AM EDT Office Visit [facility] [address] [facility] [address] [place] [address] Oralia Saha APRN [address] [facility] [address] [place], [place] [phone] 05/12/2025 1:45 PM EDT Office Visit [facility] [address] [facility] [address] [place] [address] Obed Woodard MD [address] [facility] [address] [place] [phone] documented as of this encounter Results * LIMITED 2D ECHO [...] MD CV ECHO ORDERABLES Vanda l Result * STRESS TEST, EXERCISE WITH MYOCARDIAL PERFUSION [...] There were no arrhythmias during recovery. Test Call Worker ECG [place] Perfusion Scoring Stress Summed Score: 0 Percent Normal: 0.00% The left ventricular perfusion is normal. Obed Woodard MD CV STRESS ORDERABLES Fi nal Result documented in this encounter Visit Diagnoses Diagnosis Chronic chest pain with low to moderate risk for CAD- Primary Malignant neoplasm of lower-inner quadrant of left breast in female, estrogen receptor positive Chronic chest pain with low to moderate risk for CAD Malignant neoplasm of lower-inner quadrant of left breast in female, estrogen receptor positive documented in this encounter Care Teams Refuge Manager Relationship Specialty Start Date End Date Herbert Hair MD [address] [facility] [address] [place] [address] PCP - General Adolescent Medicine 03/03/22 documented as of this encounter
--- OUTSIDE RECORDS SUMMARY | 2024-08-17 15:50 | XMS_ITS | Encounter Summary ---
[facility] Address [address] [place] [address] Care Team Providers Care Filer And Sander Name Role Phone Herbert Hair MD Primary Care Provider [phone] Encounter Details Date Type Department Care Team (Late st Contact Info) Description 04/11/2023 1:10 PM EDT Lab [facility] [address] [place] [phone] Malignant neoplasm of lower-outer quadrant of left [...] [facility] [address] [facility] [address] [place] [phone] Bre Crenshaw MD [address] [facility] [address] [place] [address] 12/31/2024 9:00 AM EDT Office Visit [facility] [address] [facility] [address] [place] [address] Oralia Saha APRN [address] [facility] [address] [place] [address] 05/12/2025 1:45 PM EDT Office Visit [facility] [address] [facility] [address] [place] [phone] Obed Woodard MD [address] [facility] [address] [place] [address] documented as of this encounter Procedures Procedure Name Priority Date/Time Associated Diagnosis Comments CBC WITH AUTO DIFFERENTIAL Routine 04/11/2023 1:09 PM EDT Malignant neoplasm of lower-outer quadrant of left breast of female, estrogen receptor positive CBC AND DIFFERENTIAL Routine 04/11/2023 1:09 PM EDT Malignant neoplasm of lower-outer quadrant of left breast of female, estrogen receptor positive COMPREHENSIVE METABOLIC PANEL Routine 04/11/2023 1:09 PM EDT Malignant neoplasm of lower-outer quadrant of left breast of female, estrogen receptor positive documented in this encounter Results * CBC Auto Differential (04/11/2023 1:09 PM EDT) WBC 4.80 3.40 - 10.80 10*3/mm3 04/11/2023 1:11 PM EDT [facility] RBC 4.20 3.77 - 5.28 10*6/mm3 04/11/2023 1:11 PM EDT [facility] Hemoglobin 13.0 12.0 - 15.9 g/dL 04/11/2023 1:11 PM EDT [facility] Hematocrit 38.6 34.0 - 46.6 % 04/11/2023 1:11 PM EDT [facility] MCV 91.9 79.0 - 97.0 fL 04/11/2023 1:11 PM EDT [facility] MCH 31.0 26.6 - 33.0 pg 04/11/2023 1:11 PM EDT [facility] MCHC 33.7 31.5 - 35.7 g/dL 04/11/2023 1:11 PM EDT [facility] RDW 13.7 12.3 - 15.4 % 04/11/2023 1:11 PM EDT [facility] RDW-SD 46.0 37.0 - 54.0 fl 04/11/2023 1:11 PM EDT [facility] MPV 10.2 6.0 - 12.0 fL 04/11/2023 1:11 PM EDT [facility] Platelets 238 140 - 450 10*3/mm3 [facility]23 [facility] Neutrophil % 50.5 42.7 - 76.0 % 04/11/2023 1:11 [facility] Lymphocyte % 37.7 19.6 - 45.3 % 04/11/2023 1:11 [facility] Monocyte % 8.5 5.0 - 12.0 % 04/11/2023 1:11 [facility] Eosinophil % 2.9 0.3 - 6.2 % 04/11/2023 1:11 [facility] Basophil % 0.4 0.0 - 1.5 % 04/11/2023 1:11 PM [facility] Immature Grans % 0.0 0.0 - 0.5 % 04/11/2023 1:11 [facility] Neutrophils, Absolute 2.42 1.70 - 7.00 10*3/mm3 04/11/2023 1:11 PM [facility] Lymphocytes, Absolute 1.81 0.70 - 3.10 10*3/mm3 04/11/2023 1:11 PM [facility] Monocytes, Absolute 0.41 0.10 - 0.90 10*3/mm3 04/11/2023 1:11 PM [facility] Eosinophils, Absolute 0.14 0.00 - 0.40 10*3/mm3 04/11/2023 1:11 PM [facility] Basophils, Absolute 0.02 0.00 - 0.20 10*3/mm3 04/11/2023 1:11 PM [facility] Immature Grans, Absolute 0.00 0.00 - 0.05 10*3/mm3 04/11/2023 1:11 PM [facility] Blood Venipuncture / Unknown 04/11/2023 1:09 PM EDT 04/11/2023 1:09 PM EDT Hilda Jarvis MIME ARTIST LAB BLOOD ORDERABLES Final Result [facility]
[address] [place] [address], * (ABNORMAL) Comprehensive Metabolic Panel (04/11/2023 1:09 PM EDT) Glucose 147(H) 65 - 99 mg/dL 04/11/2023 2:08 PM EDT [facility] BUN 15 6 - 20 mg/dL 04/11/2023 2:08 PM EDT [facility] Creatinine 1.16(H) 0.57 - 1.00 mg/dL 04/11/2023 2:08 PM EDT [facility] Sodium 141 136 - 145 mmol/L 04/11/2023 2:08 PM EDT [facility] Potassium 3.3(L) 3.5 - 5.2 mmol/L 04/11/2023 2:08 PM EDT [facility] Comment:Slight hemolysis det ected by analyzer. Results may be affected. Chloride 102 98 - 107 mmol/L 04/11/2023 2:08 PM EDT [facility] CO2 27.0 22.0 - 29.0 mmol/L 04/11/2023 2:08 PM EDT [facility] Calcium 9.4 8.6 - 10.5 mg/dL 04/11/2023 2:08 PM EDT [facility] Total Protein 7.3 6.0 - 8.5 g/dL 04/11/2023 2:08 PM EDT [facility] Albumin 4.3 3.5 - 5.2 g/dL 04/11/2023 2:08 PM EDT [facility] ALT (SGPT) 22 1 - 33 U/L 04/11/2023 2:08 PM EDT [facility] AST (SGOT) 16 1 - 32 U/L 04/11/2023 2:08 PM EDT [facility] Alkaline Phosphatase 78 39 - 117 U/L 04/11/2023 2:08 PM EDT [facility] Total Bilirubin 0.3 0.0 - 1.2 mg/dL 04/11/2023 2:08 PM EDT [facility] Globulin 3.0 gm/dL 04/11/2023 2:08 PM EDT [facility] Comment:Calculated Result A/G Ratio 1.4 g/dL 04/11/2023 2:08 PM EDT [facility] BUN/Creatinine Ratio 12.9 7.0 - 25.0 04/11/2023 2:08 PM EDT [facility] Anion Gap 12.0 5.0 - 15.0 mmol/L 04/11/2023 2:08 PM EDT [facility] eGFR 57.9(L) >60.0 mL/min/1.7 3 04/11/2023 2:08 PM EDT [facility] Blood Venipuncture / Unknown 04/11/2023 1:09 PM EDT 04/11/2023 1:09 PM EDT Narrative [facility] - 04/11/2023 2:08 PM EDT GFR Normal >60 Chronic Kidney Disease <60 Kidney Failure <15 Hlida Jarvis MIME ARTIST LAB BLOOD ORDERABLES Final Result [facility]
[address] [place] [address], documented in this encounter Visit Diagnoses Diagnosis Malignant neoplasm of lower-outer quadrant of left breast of female, estrogen receptor positive documented in this encounter Care Teams Filer And Sander Relationship Specialty Start Date End Date Herbert Hair MD [address] [facility] [address] [place] [address] PCP - General Adolescent Medicine 03/03/22 documented as of this encounter
--- OUTSIDE RECORDS SUMMARY | 2024-08-17 15:50 | XMS_ITS | Encounter Summary ---
[facility] Address [address] [place] [address] Care Team Providers Care Human Resource Advisor Name Role Phone Herbert Hair MD Primary Care Provider [phone] Encounter Details Date Type Department Care Team (Late st Contact Info) Description 06/07/2023 Telephone [facility] [address] [facility] [address] [place] [address] Obed Woodard MD [address] [facility] [address] [place] [address] Social History Tobacco Use Types [...] Telephone Encounter - Ambar Meyer RN - 06/07/2023 4:09 PM EDT Pt called back. Discussed NSK results and recommendations above. All questions answered at this time. Patient verbalizes understanding and agreeable to plan. * Telephone Encounter - Ambar Meyer RN - 06/07/2023 3:26 PM EDT Called pt, no answer. LVM for return call. * Telephone Encounter - Ambar Meyer RN - 06/07/2023 3:25 PM EDT ----- Message from Obed Woodard MD sent at 06/07/2023 2:47 PM EDT ----- Patient's LDL was 136. Since she is on medication for high blood pressure I do think it would be beneficial to treat her cholesterol. Would recommend Crestor 10 mg daily if she is agreeable. documented in this encounter Plan of Treatment Upcoming Encounters Date Type Department Care Team (Late st Contact Info) Description 09/18/2024 3:30 PM EST Office Visit [facility] & [facility] [address] [facility] [address] [place] [address] Bre Crenshaw MD [address] [facility] [address] [place] [address] 12/31/2024 9:00 AM EDT Office Visit [facility] [address] [facility] [address] [place] [address] Oralia Saha APRN [address] [facility] [address] [place] [address] 05/12/2025 1:45 PM EDT Office Visit [facility] [address] [facility] [address] [place] [phone] Obed Woodard MD [address] [facility] [address] [place], [place] [phone] documented as of this encounter Visit Diagnoses Not on filedocumented in this encounter Care Teams Human Resource Advisor Relationship Specialty Start Date End Date Herbert Hair MD [address] [facility] [address] [place] [address] PCP - General Adolescent Medicine 03/03/22 documented as of this encounter
--- OUTSIDE RECORDS SUMMARY | 2024-08-17 15:51 | XMS_ITS | Encounter Summary ---
Author Organization [facility] Address [address] [place] [address] Care Team Providers Care Waiter/Waitress Head Name Role Phone Herbert Hair MD Primary Care Provider [phone] Reason for Visit * Diagnostic Imaging (Emergency) - Closed Specialty Diagnoses / Procedures Referred By Nasrin t Referred To Contact Obstetrics and Gynecology Diagnoses Fibroids Procedures US Non-ob Transvaginal Haleigh Dempsey MD [address] [facility] [address] [place] [address] Phone: tel: fax: [facility] [place] [address] Phone: tel:[phone] fax:[phone] Referral ID Status Reason Start Date Expiration Date Visits Re quested Visits Authorized [id number] Closed 11/13/2022 11/13/2023 1 1 Encounter Details Date Type Department Care Team (Late st Contact Info) Description 11/13/2022 4:30 PM EST Ancillary Procedure [facility] OBGYN [address] [place] [address] Social History Tobacco Use Types Packs/Day Years [...] 3:30 PM EST Office Visit [facility] HEMATOLOGY & ONCOLOGY [address] [facility] [address] [place] [phone] Bre Crenshaw MD [address] [facility] [address] [place] [address] 12/31/2024 9:00 AM EDT Office Visit [facility] UROLOGY [address] [facility] [address] [place] [address] Oralia Saha APRN [address] [facility] [address] [place] [address] 05/12/2025 1:45 PM EDT Office Visit [facility] CARDIOLOGY [address] [facility] [address] [place] [phone] Obed Woodard MD [address] [facility] [address] [place], [place] [id number] documented as of this encounter Procedures Procedure Name Priority Date/Time Associated Diagnosis Comments US NON-OB TRANSVAGINAL STAT 11/13/2022 4:59 PM EST Fibroids documented in this encounter Results * US Non-ob Transvaginal (11/13/2022 4:59 PM EST) Anatomical Region Laterality Modality Body Ultrasound 11/13/2022 4:26 PM EST Narrative 11/13/2022 5:40 PM EST PAT NAME: AUGUSTINE BROWN MED REC#: [id number] DA: [id number] PAT GEND: F PAT TYPE: O EXAM VALENCIA: [id number] REF PHYS HALEIGH DEMPSEY Indication ======== Fibroids; H/o breast cancer Comparison Studies The findings of this study are compared to the prior ultrasound study dated 01/09/22 Method ======= Voluson E6, Transvaginal ultrasound examination. View: Limited view due to large fibroid Uterus ====== Uterus: Visualized Uterus position: Anteverted Description of uterine malformations: The shape of the cavity in the coronal plane could not be determined with the images in this study Myometrium: large fibroid obstructs view Endometrium: large fibroid obstructs view Cervix details: Normal Uterus long 115 mm Uterus ap 78 mm Uterus tr 92 mm Uterus Vol 431.7 cm?? Uterine fibroid D1 95.1 mm Uterine fibroid D2 74.3 mm Uterine fibroid D3 88.7 mm Uterine fibroid vol 328.318 cm?? Uterine fibroids findings: mid Uterine fibroid D1 35.0 mm Uterine fibroid D2 25.2 mm Uterine fibroid D3 23.0 mm Uterine fibroid vol 10.642 cm?? Uterine fibroids findings: possibly pedunculated/left Right Ovary Rt ovary: Visualized Rt ovary D1 24.7 mm Rt ovary D2 22.1 mm Rt ovary D3 12.8 mm Rt ovary Vol 3.7 cm?? Left Ovary ========= Lt ovary: Visualized Lt ovary D1 28.1 mm Lt ovary D2 17.3 mm Lt ovary D3 9.50 mm Lt ovary Vol 2.4 cm?? Cul de Sac Visualized. No free fluid visualized Impression The uterus is enlarged with a single large fibroid present measuring 9.5 cm in size. There is slight increase in size compared to prior imaging. A smaller fibroid is present and is stable in size. The large fibroid almost completely encompasses the uterus. The ovaries appear sonographically normal in size, shape and morphology Recommendation Follow-up as clinically indicated. Hardwood Floor Layer: RT Duyen (R), [facility] Physician: Haleigh Dempsey MD, FACOG Electronically signed by: Haleigh Dempsey MD, FACOG at: 17:40 Procedure Note Haleigh Dempsey MD - 11/13/2022 PAT NAME: AUGUSTINE BROWN MED REC#: [id number] DA: [id number] PAT GEND: F PAT TYPE: O EXAM VALENCIA: [id number] REF PHYS HALEIGH DEMPSEY Indication ======== Fibroids; H/o breast cancer Comparison Studies The findings of this study are compared to the prior ultrasound studydated 01/09/22 Method ======= Voluson E6, Transvaginal ultrasound examination. View: Limited view due tolarge fibroid Uterus ====== Uterus:Visualized Uterus position:Anteverted Description of uterine malformations:The shape of the cavity in thecoronal plane could not be determined with the images in this study Myometrium:large fibroid obstructs view Endometrium:large fibroid obstructs view Cervix details:Normal Uterus gocc837 mm Uterus ap78 mm Uterus tr92 mm Uterus Ydq259.7 cm?? Uterine fibroid D195.1 mm Uterine fibroid D274.3 mm Uterine fibroid D388.7 mm Uterine fibroid ksr596.318 cm?? Uterine fibroids findings:mid Uterine fibroid D135.0 mm Uterine fibroid D225.2 mm Uterine fibroid D323.0 mm Uterine fibroid vol10.642 cm?? Uterine fibroids findings:possibly pedunculated/left Right Ovary Rt ovary:Visualized Rt ovary D124.7 mm Rt ovary D222.1 mm Rt ovary D312.8 mm Rt ovary Vol3.7 cm?? Left Ovary ========= Lt ovary:Visualized Lt ovary D128.1 mm Lt ovary D217.3 mm Lt ovary D39.50 mm Lt ovary Vol2.4 cm?? Cul de Sac Visualized. No free fluid visualized Impression The uterus is enlarged with a single large fibroid present measuring 9.5cm in size. There is slight increase in size compared to prior imaging. Asmaller fibroid is present and is stable in size. The large fibroid almost completelyencompasses the uterus. The ovaries appear sonographically normal in size,shape and morphology Recommendation Follow-up as clinically indicated. Hardwood Floor Layer: Selene Bowers RT (R), [facility] Physician: Haleigh Dempsey MD, FACOG Electronically signed by: Haleigh Dempsey MD, FACOG at: 17:40 us Haleigh Dempsey MD IMG US ORDERABLES Final Result documented in this encounter Visit Diagnoses Not on filedocumented in this encounter Care Teams Waiter/Waitress Head Relationship Specialty Start Date End Date Herbert Hair MD [address] [facility] [address] [place] [address] PCP - General Adolescent Medicine 03/03/22 documented as of this encounter
--- OUTSIDE RECORDS SUMMARY | 2024-08-17 15:51 | XMS_ITS | Encounter Summary ---
Author Organization [facility] Address [address] [place] [address] Care Team Providers Care First Aid Teacher Name Role Phone Herbert Hair MD Primary Care Provider Encounter Details Date Type Department Care Team (Latest Contact Info) Description 11/27/2022 8:51 AM EST - 11/27/2022 11:59 PM [facility] Hospital Encounter [facility] [facility] [address] [facility] [address] [address] [place] [address] Discharge Disposition: Home or Self Care Social [...] this encounter Medications at Time of Discharge fluticasone (FLONASE) 50 MCG/ACT nasal spray Administer 2 sprays into the nostril(s) as directed by provider Daily. MV-Min-Fe Fum-FA-DHA ( Multivitamin Plus DHA) 27-0.8-250 MG capsule Take 900 doses by mouth Daily. propranolol (INDERAL) 20 MG tablet Take 1 tablet by mouth every night at bedtime. 08/12/2022 busPIRone (BUSPAR) 15 MG tablet Take 1 tablet by mouth 2 (Two) Times a Day. 2nd time at bedtime. 08/11/2022 12/27/19 24 carvedilol (COREG) 6.25 MG tablet Take 1 tablet by mouth 2 (Two) Times a Day. 60 tablet 11 07/26/2022 12/08/19 23 dexlansoprazole (DEXILANT) 60 MG capsule Take 1 capsule by mouth Daily. 11/27/2022 03/07/20 23 fexofenadine (SANTIAGO) 180 MG tablet Take 1 tablet by mouth Daily. 03/07/20 23 guaiFENesin (MUCINEX) 600 MG 12 hr tablet Take by mouth. 01/03/20 23 HYDROcodone-acetami nophen (HYCET) 7.5-325 MG/15ML solutionIndications :Malignant neoplasm of lower-inner quadrant of left breast in female, estrogen receptor positive Take 15 mL by mouth Every 6 (Six) Hours As Needed for Moderate Pain. 118 mL 11/17/2022 12/08/19 23 hydrocortisone 2.5 % cream Apply 1 application topically to the appropriate area as directed 2 (Two) Times a Day. 20 g 10/26/2022 01/03/20 23 levothyroxine (SYNTHROID, LEVOTHROID) 25 MCG tablet Take 1 tablet by mouth Daily. 03/07/20 23 ondansetron ODT (ZOFRAN-ODT) [address] 1 tablet on the tongue Every 8 (Eight) Hours As Needed for Nausea or Vomiting. 60 tablet 5 08/31/2022 01/03/20 23 polycarbophil 625 MG tablet tablet Take 1 tablet by mouth Daily. 03/07/20 23 potassium chloride 10 MEQ CR tablet Take 2 tablets by mouth once daily 60 tablet 10/16/2022 01/03/20 23 telmisartan-hydroch lorothiazide (MICARDIS HCT) 40-12.5 MG per tablet Take 1 tablet by mouth Every Evening. 11/28/2020 03/11/20 24 vitamin B-12 (CYANOCOBALAMIN) 1000 MCG tablet Take 1 tablet by mouth Daily. 10/05/19 24 Zinc 50 MG capsule Take 50 mg by mouth Daily. 12/08/19 23 documented as of this encounter Plan of Treatment Upcoming Encounters Date Type Department Care Team (Late st Contact Info) Description 09/18/2024 3:30 PM EST Office Visit [facility] HEMATOLOGY & ONCOLOGY [address] [facility] [address] [place] [phone] Bre Crenshaw MD [address] [facility] [address] [place] [address] 12/31/2024 9:00 AM EDT Office Visit [facility] UROLOGY [address] [facility] [address] [place] [address] Oralia Saha APRN [address] [facility] [address] [place] [address] 05/12/2025 1:45 PM EDT Office Visit [facility] CARDIOLOGY [address] [facility] [address] [place] [phone] Obed Woodard MD [address] [facility] [address] E [facility] [address] [place], [place] [phone] documented as of this encounter Visit Diagnoses Not on filedocumented in this encounter Care Teams First Aid Teacher Relationship Specialty Start Date End Date Herbert Hair MD [address] [place] [facility] [address] [place] [address] PCP - General Adolescent Medicine 03/03/22 documented as of this encounter
--- OUTSIDE RECORDS SUMMARY | 2024-08-17 15:51 | XMS_ITS | Encounter Summary ---
Author Organization [facility] Address [address] [place] [address] Care Team Providers Care Board Layer Name Role Phone Herbert Hair MD Primary Care Provider [phone] Encounter Details Date Type Department Care Team (Late st Contact Info) Description 12/01/2022 Telephone [facility] [address] [place] [address] Bre Duran, RN Social History Tobacco Use Types Packs/Day [...] Miscellaneous Notes * Telephone Encounter - Bre Duran, RN - 12/01/2022 3:04 PM EST Pt called with questions regarding lidocaine and silvadene, instructed to mix equal parts and applyinstructions left via VM, Mrs. Brown asked if she could apply to face but could not address this on VM. documented in this encounter Plan of Treatment Upcoming Encounters Date Type Department Care Team (Late st Contact Info) Description 09/18/2024 3:30 PM EST Office Visit [facility] HEMATOLOGY & ONCOLOGY [address] [facility] [address] [place] [address] Bre Crenshaw MD [address] [facility] [address] [place] [address] 12/31/2024 9:00 AM EDT Office Visit [facility] UROLOGY [address] [facility] [address] [place] [address] Oralia Saha APRN [address]60 [facility] [address] [place] [address] 05/12/2025 1:45 PM EDT Office Visit [facility] CARDIOLOGY [address] [facility] [address] [place] [phone] Obed Woodard MD [address] [facility] [address] [place], [place] [phone] documented as of this encounter Visit Diagnoses Not on filedocumented in this encounter Care Teams Board Layer Relationship Specialty Start Date End Date Herbert Hiar MD [address] [place] [address] [place] [address] PCP - General Adolescent Medicine 03/03/22 documented as of this encounter
--- OUTSIDE RECORDS SUMMARY | 2024-08-17 15:51 | XMS_ITS | Encounter Summary ---
Author Organization [facility] Address [address] [place] [address] Care Team Providers Care Punchboard Filling Machine Operator Name Role Phone Herbert Hair MD Primary Care Provider Encounter Details Date Type Department Care Team (Latest Contact Info) Description 11/20/2022 9:02 AM EST - 11/20/2022 11:59 PM [facility] Hospital Encounter [facility] [address] [facility] [address] [place] [address] Discharge Disposition: Home or Self [...] Day. 60 tablet 11 07/26/2022 12/08/19 23 fexofenadine (SANTIAGO) 180 MG tablet Take [...] [facility] HEMAT[facility]Y [address] [facility] [address] [place] [address] Bre Crenshaw MD [address] [facility] [address] [place] [address] 12/31/2024 9:00 AM EDT Office Visit [facility] UROLOGY [address] [facility] [address] [place] [address] Oralia Saha APRN [address] [facility] [address] [place] [address] 05/12/2025 1:45 PM EDT Office Visit [facility] CARDIOLOGY [address] [facility] [address] [place] [phone] Obed Woodard MD [address] [facility] [address] [place], [place] [phone] documented as of this encounter Visit Diagnoses Not on filedocumented in this encounter Care Teams Punchboard Filling Machine Operator Relationship Specialty Start Date End Date Herbert Hair MD [address] [facility] [address] [place] [address] PCP - General Adolescent Medicine 03/03/22 documented as of this encounter
--- OUTSIDE RECORDS SUMMARY | 2024-08-17 15:51 | XMS_ITS | Encounter Summary ---
Author Organization [facility] Address [address] [place] [address] Care Team Providers Care Curtain Hemmer Automatic Name Role Phone Herbert Hair MD Primary Care Provider + [phone] Reason for Referral * Diagnostic Imaging (Emergency) - Closed Specialty Diagnoses / Procedures Referred By Nasrin hernandez Referred To Contact Obstetrics and Gynecology Diagnoses Fibroids Procedures US Non-ob Transvaginal Haleigh Dempsey MD [address] [facility] [address] [place] [address] Phone: tel: fax: [facility] OBGYN [address] [place] [address] Phone: tel:[phone] fax:[phone] Referral ID Status Reason Start Date Expiration Date Visits Re quested Visits Authorized [id number] Closed 11/13/2022 11/13/2023 1 1 Reason for Visit * Reason Comments consult for hysterectomy Encounter Details Date Type Department Care Team (Late st Contact Info) Description 11/13/2022 4:00 PM EST Office Visit [facility] OBGYN [address] [place] [address] Haleigh Dempsey MD [address] [facility] [address] [place] [address] Malignant neoplasm of lower-inner quadrant of left breast in female, estrogen receptor positive (Primary Dx); Fibroids Social History Tobacco Use Types Packs/Day Years [...] Sign Reading Time Taken Comments Blood Pressure 112/84 11/13/2022 3:46 PM EST Pulse - - Temperature - - Respiratory Rate - - Oxygen Saturation - - Inhaled Oxygen Concentration - - Weight 88.8 kg (195 lb 12.8 oz) 11/13/2022 3:46 PM EST Height 152.4 cm (5') 11/13/2022 3:46 PM EST Body Mass Index 38.24 11/13/2022 3:46 PM EST documented in this encounter Progress Notes * Haleigh Dempsey MD - 11/13/2022 4:00 PM EST Images from the original note were not included. Gynecologic Exam Note Chief Complaint Patient presents with ??? consult for hysterectomy Subjective HPI Augustine Brown is a 47 y.o. female, , who presents for a consult on having a Hysterectomy. Patient states she has been having hot flashes and night sweats. Her last LMP was No LMP recorded. Patient has had an ablation.. Periods are absent secondary to having an ablation , lasting 0 days. Dysmenorrhea:severe, occurring 4-5 times a month . Patient reportsproblems with: none. Partner Status: Marital Status: . New Partners since last visit: no. Desires STD Screening: no. 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 Tobacco Usage?: No OB History 2 Para 2 Term 2 AB Living 2 SAB IAB Ectopic Molar Multiple Live Births 2 Health Maintenance Topic Date Due ??? COLORECTAL CANCER SCREENING Never done ??? Pneumococcal Vaccine 0-64 (1 - PCV) Never done ??? TDAP/TD VACCINES (1 - Tdap) Never done ??? HEPATITIS C SCREENING Never done ??? ANNUAL PHYSICAL Never done ??? COVID-19 Vaccine (2 - Myla risk series) 10/03/2021 ??? INFLUENZA VACCINE Never done ??? Annual Gynecologic Pelvic and Breast Exam 01/14/2023 ??? PAP SMEAR 01/13/2025 The additional following portions of the patient's history were reviewed and updated as appropriate: allergies, current medications, past family history, past medical history, past social history, past surgical history and problem list. Review of Systems Endocrine: Positive for heat intolerance (hot flashes ). All other systems reviewed and are negative. Past Surgical History: Procedure Laterality Date ??? BREAST BIOPSY Left 11/2016 lt stereo bx ??? CARPAL TUNNEL RELEASE Right ??? SECTION x 2 ??? COLONOSCOPY 04/20/2017 hemorrhoids ? ? D & C HYSTEROSCOPY ENDOMETRIAL ABLATION 10/21/2013 ??? ENDOSCOPY 03/2016 Normal ??? LAPAROSCOPIC CHOLECYSTECTOMY ??? MASTECTOMY ??? MASTECTOMY WITH SENTINEL NODE BIOPSY AND AXILLARY NODE DISSECTION N/A 06/13/2022 Procedure: BREAST MASTECTOMY LEFT, AXILLARY NODE DISSECTION LEFT, PROPHYLATIC RIGHT MASTECTOMY; Surgeon: An Bell MD; Location: [facility]; Service: General; Laterality: N/A; ??? TONSILLECTOMY ??? VENOUS ACCESS DEVICE (PORT) INSERTION Right 07/07/2022 Past Medical History: Diagnosis Date ??? Acid reflux ??? Anxiety ??? Javed's disease ??? Headache ??? Hypertension ??? Hypothyroidism ??? Malignant neoplasm of left breast in female, estrogen receptor positive (HCC) 05/24/2022 ??? Migraines ??? PONV (postoperative nausea and vomiting) ??? Wears glasses I have reviewed and agree with the HPI, ROS, and historical information as entered above. Haleigh Dempsey MD Objective BP 112/84 Ht 152.4 cm (60 ) Wt 88.8 kg (195 lb 12.8 oz) BMI 38.24 kg/m?? Physical Exam Vitals and nursing note reviewed. Constitutional: General: She is not in acute distress. Appearance: Normal appearance. HENT: Head: Normocephalic and atraumatic. Pulmonary: Effort: Pulmonary effort is normal. No accessory muscle usage or respiratory distress. Neurological: Mental Status: She is alert and oriented to person, place, and time. Psychiatric: Mood and Affect: Mood and affect normal. Speech: Speech normal. Assessment & Plan Assessment Problem List Items Addressed This Visit Hematology and Neoplasia Malignant neoplasm of left breast in female, estrogen receptor positive (HCC) - Primary Relevant Orders Luteinizing Hormone Follicle Stimulating Hormone Estradiol Other Visit Diagnoses Fibroids Relevant Orders US Non-ob Transvaginal Plan Return for Annual physical. Patient presents today for follow-up for fibroids and diagnosis of breast cancer. The patient has been diagnosed with ER/ME positive invasive DCIS. She is status post bilateral mastectomy and has completed chemotherapy and is currently undergoing radiation. She presents today to discuss possible hysterectomy or possible oophorectomy. On review of her labs, she did have FSH drawn on 07/11/2022 which showed a mild elevation at 38. This patient is status post prior endometrial ablation and has hadno vaginal bleeding since that surgery. She has noted that recently she has began having severe vasomotor symptoms and sweats. She is followed by Dr. Bre Crenshaw. She did undergo transvaginal ultrasound today which showed an enlarged uterus with a single large fibroid that makes up almost the entireuterus. A smaller fibroid is present and this is stable in size. The larger fibroid has had mild increase in size over the past year. Bilateral ovaries are normal. I did discuss with Dr. Crenshaw regarding surgery and we plan to follow her hormone levels and discuss ovarian suppression with Lupron. We plan to repeat her ultrasound in 6 months and follow her hormone levels. I have reviewed with Joann today that we will continue to follow but that a prophylactic hysterectomy and oophorectomy is not warranted at this point, but we will follow closely. Patient encouraged to call with vaginal bleeding or pelvic pain and we can reassess at any point. Total time spent today with Augustine was 30-39 minutes (level 4). Off this time, 70% was spent [id number] time coordinating care, answering her questions and counseling regarding pathophysiology of her presenting problem along with plans for any diagnositc work-up and treatment and reviewing records and images and discussion of the case with Dr. Crenshaw. Haleigh Dempsey MD 11/13/2022 * Haleigh Dempsey MD - 11/13/2022 4:00 PM EST Please call patient about results. Hormone levels stable, still elevated slightly in to the menopausal range. Likely perimenopausal * Celi Benitez MA - 11/13/2022 4:00 PM EST Advised pt. Pt v/u documented in this encounter Plan of Treatment Upcoming Encounters Date Type Department Care Team (Late st Contact Info) Description 09/18/2024 3:30 PM EST Office Visit [facility] HEMATOLOGY & ONCOLOGY [address] [facility] [address] [place] [address] Bre Crenshaw MD [address] [facility] [address] [place], [place] [id number] 12/31/2024 9:00 AM EDT Office Visit [facility] UROLOGY [address] [facility] [address] [place] [address] Oralia Saha, ENTRY LEVEL ELECTRICIAN [address] [facility] [address] [place], [place] [id number] 05/12/2025 1:45 PM EDT Office Visit [facility] CARDIOLOGY [address] [facility] [address] [place] [address] Obed Woodard MD [address] [facility] [address] [place], [place] [id number] documented as of this encounter Procedures Procedure Name Priority Date/Time Associated Diagnosis Comments ESTRADIOL Routine 11/13/2022 5:11 PM EST Malignant neoplasm of lower-inner quadrant of left breast in female, estrogen receptor positive LUTEINIZING HORMONE Routine 11/13/2022 5 :11 PM EST Malignant neoplasm of lower-inner quadrant of left breast in female, estrogen receptor positive FOLLICLE STIMULATING HORMONE Routine 11/13/2022 5:11 PM EST Malignant neoplasm of lower-inner quadrant of left breast in female, estrogen receptor positive US NON-OB TRANSVAGINAL STAT 11/13/2022 4:59 PM EST Fibroids documented in this encounter Results * Estradiol (11/13/2022 5:11 PM EST) Estradiol 12.1 pg/mL [facility] Comment: ?Adult Female: ?Follicular phase ?? 12.5 - ?? 166.0 ?Ovulation phase ?85.8 - ?? 498.0 ?Luteal phase ? 43.8 - ?? 211.0 ?Postmenopausal ? <6.0 - ?54.7 ?1st trimester ? 215.0 - >4300.0 Jc ECLIA methodology Blood 11/13/2022 5:11 PM EST 11/13/2022 Narrative [facility] ([facility]) - 11/14/2022 10:11 AM EST Performed at: ??01 - [facility] ??[id number] Bar Tacker: Clifton Limon PhD, Phone: ??[phone] Patient Fasting: ??N us Haleigh Dempsey MD LAB BLOOD ORDERABLES Final Resul t Performing Organization Address City/State/[facility] Co de Phone Number [facility] ([facility]) [address] [place] [address], [facility] [address] [place] [address], * Follicle Stimulating Hormone (11/13/2022 5:11 PM EST) FSH 38.2 mIU/mL [facility] Comment: ?Adult Female: ?Follicular phase ?3.5 - ??12.5 ?Ovulation phase ? 4.7 - ??21.5 ?Luteal phase ?1.7 - ?? 7.7 ?Postmenopausal ? 25.8 - 134.8 Blood 11/13/2022 5:11 PM EST 11/13/2022 Narrative [facility] ([facility]) - 11/14/2022 10:11 AM EST Performed at: ??01 - [facility] [address] [place] [address] ??[id number] Bar Tacker: Clifton Limon PhD, Phone: ??[phone] Patient Fasting: ??N us Haleigh Dempsey MD LAB BLOOD ORDERABLES Final Resul t Performing Organization Address City/State/[facility] Co de Phone Number [facility] ([facility]) [address] [place] [address], [facility] [address] [place] [address], * Luteinizing Hormone (11/13/2022 5:11 PM EST) LH 17.5 mIU/mL [facility] Comment: ?Adult Female: ?Follicular phase ?2.4 - ??12.6 ?Ovulation phase ?14.0 - ??95.6 ?Luteal phase ?1.0 - ??11.4 ?Postmenopausal ?7.7 - ??58.5 Blood 11/13/2022 5:11 PM EST 11/13/2022 Narrative [facility] (AMBULAT[facility]) - 11/14/2022 10:11 AM EST Performed at: ??01 - [facility] [place] [address] [facility], [place], [place] ??[id number] Bar Tacker: Clifton Limon PhD, Phone: ??[phone] Patient Fasting: ??N us Haleigh Dempsey MD LAB BLOOD ORDERABLES Final Resul t [facility] ([facility]BUL[facility]) [address] [place] [address], [facility] [address] [place] [address], * US Non-ob Transvaginal (11/13/2022 4:59 PM EST) Anatomical Region Laterality Modality Body Ultrasound 11/13/2022 4:26 PM EST Narrative 11/13/2022 5:40 PM EST PAT NAME: AUGUSTINE BROWN MED REC#: [id number] DA: [id number] PAT GEND: F PAT TYPE: O EXAM VALENCIA: [id number] REF PHYS HALEIGH DEMPSEY Indication ======== Fibroids; [...] and morphology Recommendation Follow-up as clinically indicated. Nut Roaster: RT Duyen (R), [facility] Physician: Haleigh Dempsey MD, FACOG Electronically signed by: Haleigh Dempsey MD, FACOG at: 17:40 Procedure Note Haleigh Dempsey MD - 11/13/2022 PAT NAME: AUGUSTINE BROWN [facility] REC#: [id number] DA: [id number] PAT GEND: F PAT TYPE: O EXAM VALENCIA: [id number] REF PHYS HALEIGH DEMPSEY Indication ======== Fibroids; [...] Endometrium:large fibroid obstructs view Cervix details:Normal Uterus llbv791 mm Uterus ap78 mm Uterus tr92 mm Uterus Qsl167.7 cm?? Uterine fibroid D195.1 mm Uterine fibroid D274.3 mm Uterine fibroid D388.7 mm Uterine fibroid jtu640.318 cm?? Uterine fibroids findings:mid Uterine fibroid D135.0 [...] and morphology Recommendation Follow-up as clinically indicated. Nut Roaster: Selene Bowers RT (R), [facility] Physician: Haleigh Dempsey MD, FACOG Electronically signed by: Haleigh Dempsey MD, FACOG at: 17:40 us Haleigh Dempsey MD [facility] US ORDERABLES Final Result documented in this encounter Visit Diagnoses Diagnosis Malignant neoplasm of lower-inner quadrant of left breast in female, estrogen receptor positive- Primary Fibroids Leiomyoma of uterus, unspecified documented in this encounter Care Teams Curtain Hemmer Automatic Relationship Specialty Start Date End Date Herbert Hair MD [address] [place] [facility] [address] [facility] [address] [facility] [address] PCP - General Adolescent Medicine 03/03/22 documented as of this encounter
--- OUTSIDE RECORDS SUMMARY | 2024-08-17 15:51 | XMS_ITS | Encounter Summary ---
Author Organization [facility] Address [address] [place] [address] Care Team Providers Care Business Ethics Professor Name Role Phone Herbert Hair MD Primary Care Provider + [phone] Encounter Details Date Type Department Care Team (Late st Contact Info) Description 11/28/2022 Documentation [facility] [address] [place] [address] [address] [place] [address] Social History Tobacco Use Types Packs/Day Years [...] as of this encounter Progress Notes * Halie Jimenez RD - 11/28/2022 10:05 AM EST ONC Nutrition ?? Diagnosis:??ER+ (90%), HI+ (10%), Her2 negative (1+) invasive ductal carcinoma of the left breast ?? Surgery:??Bilateral mastectomy??(06/13/22)?Pathology showed a 2.4 cm IDC, intermediate grade. ??2/8 LN involved ?? Chemotherapy:??OP BREAST AC DD DOXOrubicin / Cyclophosphamide??- every 14 days x 4 cycles followed by??OP BREAST??- completed ??08/31/22 ?? DD PACLitaxel??- every 14 days x 4 cycles??- treatment start date 09/14/22 - completed 10/26/22 ?? Radiation:??40.05 Wagner in 15 fractions to the left chest wall and regional lymphatics??/ patient has completed 14/15 fractions ?? Weight 192.7 lbs / 4 lbs weight loss during treatment related to swallowing issues Follow up with patient during RAD ONC status checks / patient with 1 remaining treatment. Patient with swallowing issues related to treatment; throat sore, but improved and managed with pain medication. Discussed tips for oral intake with sore throat and difficulty swallowing including modificationof consistencies and textures, choosing soft moist foods, avoidance of acid foods, etc. Discussed th at issues may last for a couple of weeks following completion of treatment before improving. documented in this encounter Plan of Treatment Upcoming Encounters Date Type Department Care Team (Late st Contact Info) Description 09/18/2024 3:30 PM EST Office Visit [facility] HEMATOLOGY & ONCOLOGY [address] [facility] [address] [place] [address] Bre Crenshaw MD [address] [facility] [address] [place] [address] 12/31/2024 9:00 AM EDT Office Visit [facility] UROLOGY [address] [facility] [address] [place] [address] Oralia Saha APRN [address] [facility] [address] [place] [address] 05/12/2025 1:45 PM EDT Office Visit [facility] CARDIOLOGY [address] [facility] [address] [place] [phone] Obed Woodard MD [address] [facility] [address] [place] [address] documented as of this encounter Visit Diagnoses Not on filedocumented in this encounter Care Teams Business Ethics Professor Relationship Specialty Start Date End Date Herbert Hair MD [address] [facility] [address] [place] [address] PCP - General Adolescent Medicine 03/03/22 documented as of this encounter
--- OUTSIDE RECORDS SUMMARY | 2024-08-17 15:51 | XMS_ITS | Encounter Summary ---
Author Organization [facility] Address [address] [place] [address] Care Team Providers Care [facility] Name Role Phone Herbert Hair MD Primary Care Provider [phone] Reason for Visit * Reason Onset Date Comments INGRID/QUESTIONS 01/22/2023 Encounter Details Date Type Department Care Team (Late st Contact Info) Description 01/22/2023 Telephone [facility] HEMATOLOGY & ONCOLOGY [address] [address] Bre Crenshaw MD [address] [place] [phone] INGRID/QUESTIONS Social History Tobacco Use Types Packs/Day Years [...] Telephone Encounter - Yanet Preston RN - 01/22/2023 12:22 PM EDT I called patient back and advised that at this point, she can use any of the over the counter coughmeds, decongestants. I told her that if she had persistent cough or fever, she would need to see her pcp or utc. She verbalized understanding. * Telephone Encounter - Lev Montanez - 01/22/2023 11:35 AM EDT PT CALLED NEEDS TO TAKE COUGH MEDS BUT WANTED TO MAKE SURE WHAT SHE SHOULD COULD TAKE. documented in this encounter Plan of Treatment Upcoming Encounters Date Type Department Care Team (Late st Contact Info) Description 09/18/2024 3:30 PM EST Office Visit [facility] HEMATOLOGY & ONCOLOGY [address] [facility] [address] [place] [address] Bre Crenshaw MD [address] [facility] [address] [place] [address] 12/31/2024 9:00 AM EDT Office Visit [facility] UROLOGY [address] [facility] [address] [place] [address] Oralia Saha APRN [address] [facility] [address] [place] [id number] 05/12/2025 1:45 PM EDT Office Visit [facility] CARDIOLOGY [address] [place] [address] Obed Woodard MD [address] [facility] [address] [place] [address] documented as of this encounter Visit Diagnoses Not on filedocumented in this encounter Care Teams [facility] Relationship Specialty Start Date End Date Herbert Hair MD [address] [facility] [address] [place] [address] PCP - General Adolescent Medicine 03/03/22 documented as of this encounter
--- OUTSIDE RECORDS SUMMARY | 2024-08-17 15:51 | XMS_ITS | Encounter Summary ---
Author Organization [facility] Address [address] [place] [address] Care Team Providers Care Carbon Brusher Assembler Name Role Phone Herbert Hair MD Primary Care Provider [phone] Reason for Visit * Reason Onset Date Comments INGRID-SIDE EFFECTS 12/19/2022 Encounter Details Date Type Department Care Team (Late st Contact Info) Description 12/19/2022 Telephone [facility] HEMATOLOGY & ONCOLOGY [address] [phone] Bre Crenshaw MD [address] [place] [phone] INGRID-SIDE EFFECTS Social History Tobacco Use Types Packs/Day Years [...] encounter Miscellaneous Notes * Telephone Encounter - Allie Jo RN - 12/19/2022 11:59 AM EDT Returned call to patient. At this time informing her per Dr. Crenshaw she didn't believe her pain is related to the Tamoxifen. Informing her she could try Biofreeze. Discussing with her that we can putreferral in for port removal * Telephone Encounter - Floresita Donaldson - 12/19/2022 9:09 AM EDT Patient called she started the tamoxifen last Sunday, on Sunday she states she got a stiff neck that runs across her shoulders. Could this be side effects from the tamoxifen? She wants to know what she can use,and if biofreeze is okay? Also wants to check to see if the referral has been put infor Dr. SPARKS to remove her port? Please call. documented in this encounter Plan of Treatment Upcoming Encounters Date Type Department Care Team (Late st Contact Info) Description 09/18/2024 3:30 PM EST Office Visit [facility] HEMATOLOGY & ONCOLOGY [address] [facility] [address] [place] [address] Bre Crenshaw MD [address] [facility] [address] [place] [address] 12/31/2024 9:00 AM EDT Office Visit [facility] UROLOGY [address] [facility] [address] [place] [address] Oralia Saha APRN [address]60 [facility] [address] [place] [phone] 05/12/2025 1:45 PM EDT Office Visit [facility] CARDIOLOGY [address] [place] [address] Obed Woodard MD [address] [facility] [address] [place] [address] documented as of this encounter Visit Diagnoses Not on filedocumented in this encounter Care Teams Carbon Brusher Assembler Relationship Specialty Start Date End Date Herbert Hair MD [address] [facility] [address] [place] [address] PCP - General Adolescent Medicine 03/03/22 documented as of this encounter
--- OUTSIDE RECORDS SUMMARY | 2024-08-17 15:51 | XMS_ITS | Encounter Summary ---
Author Organization [facility] Address [address] [place] [address] Care Team Providers Care Cut Off Machine Helper Name Role Phone Herbert Hair MD Primary Care Provider + [phone] Encounter Details Date Type Department Care Team (Late st Contact Info) Description 11/17/2022 Documentation [facility] HEMATOLOGY & ONCOLOGY [address] [facility] [address] [place] [phone] Anuradha Esposito MSW Social History Tobacco Use Types Packs/Day Years [...] as of this encounter Progress Notes * Anuradha Esposito MSW - 11/17/2022 9:39 AM EST Buildings Painter Distress Screening Follow-up OSW called to follow up with pt regarding recent distress screen results. OSW left a VM with pt introducing self, and offering additional support. OSW provided call back number, ([phone]) and encouraged pt to reach out at his convenience. OSW will remain available to offer support. DIOGENES Mcgregor Extracorporeal Technician documented in this encounter Plan of Treatment Upcoming Encounters Date Type Department Care Team (Late st Contact Info) Description 09/18/2024 3:30 PM EST Office Visit [facility] HEMATOLOGY & ONCOLOGY [address] [facility] [address] [place] [phone] Bre Crenshaw MD [address] [facility] [address] [place] [address] 12/31/2024 9:00 AM EDT Office Visit [facility] UROLOGY [address] [facility] [address] [place] [address] Oralia Saha APRN [address] [facility] [address] [place] [address] 05/12/2025 1:45 PM EDT Office Visit [facility] CARDIOLOGY [address] [facility] [address] [place] [phone] Obed Woodard MD [address] [facility] [address] [place] [address] documented as of this encounter Visit Diagnoses Not on filedocumented in this encounter Care Teams Cut Off Machine Helper Relationship Specialty Start Date End Date Herbert Hair MD [address] [place] [facility] [address] [facility] [address] [place] [address] PCP - General Adolescent Medicine 03/03/22 documented as of this encounter
--- OUTSIDE RECORDS SUMMARY | 2024-08-17 15:51 | XMS_ITS | Encounter Summary ---
Author Organization [facility] Address [address] [place] [address] Care Team Providers Care Deck Builder Name Role Phone Herbert Hair MD Primary Care Provider [phone] Encounter Details Date Type Department Care Team (Late st Contact Info) Description 12/07/2022 11:15 AM EST Office Visit [facility] HEMATOLOGY & ONCOLOGY [address] [facility] [address] [place] [phone] Bre Crenshaw MD [address] [facility] [address] [place] [address] Malignant neoplasm of lower-inner quadrant of left [...] you are drinking? Patient does not drink 09/13/202 2 Q3: How often do you have si [...] Sign Reading Time Taken Comments Blood Pressure 149/95 12/07/2022 11:05 AM EST RU E Pulse 87 12/07/2022 11:05 AM EST Temperature 36.3 ??C (97.3 ??F) 12/07/2022 11:[address] Respiratory Rate 18 12/07/2022 11:05 AM EST Oxygen Saturation 98% 12/07/2022 11:05 AM EST Inhaled Oxygen Concentration - - Weight 89.4 kg (197 lb) 12/07/2022 11:05 AM EST Height 152.4 cm (5') 12/07/2022 11:05 AM EST Body Mass Index 38.47 12/07/2022 11:05 AM EST documented in this encounter Progress Notes * Bre Crenshaw MD - 12/07/2022 11:15 AM EST PROBLEM LIST: 1. 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 bilateral mastectomy on 06/13/22. Pathology showed a 2.4 cm IDC, intermediate grade.2/8 LN involved. B) adjuvant ddAC followed by taxol started 07/13/22 2. Hypertension 3. Hypothyroidism 4. GERD Subjective CHIEF COMPLAINT: breast cancer HISTORY OF PRESENT ILLNESS: Leydi Brown returns for follow-up. She is doing ok. She met with Dr. Khanna to discuss possible hysterectomy. Leydi is concerned about her large fibroid which is symptomatic at time. She has recovered fairly well from the chemotherapy treatment. She is having hot flashes and night sweats. Objective BP 149/95 Comment: RUE Pulse 87 Temp 97.3 ??F (36.3 ??C) (Infrared) Resp 18 Ht 152.4 cm (60 ) Wt 89.4 kg (197 lb) SpO2 98% BMI 38.47 kg/m?? Vitals: 12/07/22 1105 PainSc: 0-No pain ECOG score: 0 General: well appearing female in no acute distress Neuro: alert and oriented Extremeties: no lower extremity edema Skin: no lesions, bruising, or petechiae. Psych: mood and affect appropriate RECENT LABS: Lab Results Component Value Date WBC 5.13 10/26/2022 HGB 10.7 (L) 10/26/2022 HCT 33.0 (L) 10/26/2022 MCV 103.4 (H) 10/26/2022 PLT 150 10/26/2022 Lab Results Component Value Date GLUCOSE 133 (H) 10/26/2022 BUN 12 10/26/2022 CREATININE 0.75 10/26/2022 BCR 16.0 10/26/2022 K 3.4 (L) 10/26/2022 CO2 26.0 10/26/2022 CALCIUM 9.3 10/26/2022 ALBUMIN 4.1 10/26/2022 AST 18 10/26/2022 ALT 29 10/26/2022 ASSESSMENT AND PLAN: Leydi Brown is a 47 y.o. female with a T2 N1 M0 ER positive UT positive HER2 negative invasive carcinoma of the left breast. She has now completed chemotherapy and radiotherapy. We discussed Starting treatment with tamoxifen. We discussed potential side effects of tamoxifen treatment including an increased risk of blood clots, and increased risk of uterine cancer, hot flashes, and sleep or mood disturbance. She has a second opinion scheduled with Dr. Awad regarding a hysterectomy. She will wait until after this appointment to make plans to start tamoxifen. If surgery is planned in the near future, she will hold tamoxifen until 1-2 weeks after surgery. Recent labs were consistent with menopause, but I would like to make sure that this remains the cause for 6-12 months before switching to an aromatase inhibitor. Anxiety: Continue 30 mg of buspirone as needed. Cardiac risk: followed by cardiology. Lymphedema left upper extremity: Continue working with occupational therapy and wearing compressionsleeve. Hypokalemia: will wait for today's labs, consider stopping potassium supplement if normal. Follow-up in 3 months. Total time of patient care on day of service including time prior to, face to face with patient, and following visit spent in reviewing records, lab results, discussion with patient, and documentation/charting was > 42 minutes. Bre Crenshaw MD [facility] 12/07/2022 and continue CC: documented in this encounter Plan of Treatment Upcoming Encounters Date Type Department Care Team (Late st Contact Info) Description 09/18/2024 3:30 PM EST Office Visit [facility] HEMATOLOGY & ONCOLOGY [address] [facility] [address] [place] [phone] Bre Crenshaw MD [address] [facility] [address] [place] [address] 12/31/2024 9:00 AM EDT Office Visit [facility] UROLOGY [address] [facility] [address] [place] [address] Oralia Saha APRN [address] [facility] [address] [place] [address] 05/12/2025 1:45 PM EDT Office Visit [facility] CARDIOLOGY [address] [facility] [address] [place] [address] Obed Woodard MD [address] [facility] [address] [place], [place] [id number] documented as of this encounter Results * (ABNORMAL) Comprehensive Metabolic Panel (03/07/2023 12:43 PM EDT) [facility] Signature Glucose 123(H) 65 - 99 mg/dL 03/07/2023 2:15 PM EDT [facility] BUN 11 6 - 20 mg/dL 03/07/2023 2:15 PM T [facility] Creatinine 0.71 0.57 - 1.00 mg/dL 03/07/2023 2:15 PM EDT [facility] Sodium 139 136 - 145 mmol/L 03/07/2023 2:15 PM T [facility] Potassium 3.4(L) 3.5 - 5.2 mmol/L 03/07/2023 2:15 PM T [facility] Comment:Slight hemolysis det ected by analyzer. Results may be affected. Chloride 103 98 - 107 mmol/L 03/07/2023 2:15 PM T [facility] CO2 27.0 22.0 - 29.0 mmol/L 03/07/2023 2:15 PM T [facility] Calcium 8.9 8.6 - 10.5 mg/dL 03/07/2023 2:15 PM [facility] Total Protein 6.6 6.0 - 8.5 g/dL 03/07/2023 2:15 PM [facility] Albumin 4.1 3.5 - 5.2 g/dL 03/07/2023 2:15 PM T [facility] ALT (SGPT) 19 1 - 33 U/L 03/07/2023 2:15 PM [facility] AST (SGOT) 18 1 - 32 U/L 03/07/2023 2:15 PM T [facility] Alkaline Phosphatase 70 39 - 117 U/L 03/07/2023 2:15 PM T [facility] Total Bilirubin 0.2 0.0 - 1.2 mg/dL 03/07/2023 2:15 PM T [facility] Globulin 2.5 gm/dL 03/07/2023 2:15 PM T [facility] Comment:Calculated Result A/G Ratio 1.6 g/dL 03/07/2023 2:15 PM T [facility] BUN/Creatinine Ratio 15.5 7.0 - 25.0 03/07/2023 2:15 PM EDT [facility] Anion Gap 9.0 5.0 - 15.0 mmol/L 03/07/2023 2:15 PM EDT [facility] eGFR 104.4 >60.0 mL/min/1.7 3 03/07/2023 2:15 PM EDT [facility] Blood Venipuncture / Unknown 03/07/2023 12:43 PM EDT 03/07/2023 1:09 PM EDT Narrative [facility] - 03/07/2023 2:15 PM EDT GFR Normal >60 Chronic Kidney Disease <60 Kidney Failure <15 us Ber Crenshaw MD LAB BLOOD ORDERABLES Final Resul t [facility]
[address] [place] [address], documented in this encounter Visit Diagnoses Diagnosis Malignant neoplasm of lower-inner quadrant of left breast in female, estrogen receptor positive- Primary documented in this encounter Care Teams Deck Builder Relationship Specialty Start Date End Date Herbert Hair MD [facility] [address] [place] [address] PCP - General Adolescent Medicine 03/03/22 documented as of this encounter
--- OUTSIDE RECORDS SUMMARY | 2024-08-17 15:51 | XMS_ITS | Encounter Summary ---
Author Organization [facility] Address [address] [place] [address] Care Team Providers Care Silk Brusher Name Role Phone Herbert Hair MD Primary Care Provider Encounter Details Date Type Department Care Team (Latest Contact Info) Description 11/16/2022 9:04 AM EST - 11/16/2022 11:59 PM [facility] Hospital Encounter [facility] [address] [facility] [address] [place] [address] Discharge Disposition: Home or Self [...] hr tablet Take by mouth. 01/03/20 23 hydrocortisone 2.5 % cream Apply 1 [...] [facility] [place] [facility] [address] [facility] [address] [place] [address] Bre Crenshaw MD [address] [facility] [address] [place] [address] 12/31/2024 9:00 AM EDT Office Visit [facility] UROLOGY [address] [facility] [address] [place] [address] Oralia Saha APRN [address] [facility] [address] [place] [address] 05/12/2025 1:45 PM EDT Office Visit [facility] CARDIOLOGY [address] [facility] [address] [place] [phone] Obed Woodard MD [address] [facility] [address]ld[address] [place], [place] [id number] documented as of this encounter Visit Diagnoses Not on filedocumented in this encounter Care Teams Silk Brusher Relationship Specialty Start Date End Date Herbert Hair MD [address] [facility] [address] [place] [address] PCP - General Adolescent Medicine 03/03/22 documented as of this encounter
--- OUTSIDE RECORDS SUMMARY | 2024-08-17 15:51 | XMS_ITS | Encounter Summary ---
Author Organization [facility] Address [address] [place] [address] Care Team Providers Care Radiology Technologist Name Role Phone Herbert Hair MD Primary Care Provider [phone] Encounter Details Date Type Department Care Team (Latest Contact Info) Description 11/10/2022 8:53 AM EST - 11/10/2022 11:59 PM [facility] Hospital Encounter [facility] [address] [facility] [address] [place] [address] Discharge Disposition: Home or Self [...] 2nd time at bedtime. 08/11/2022 12/27/19 24 busPIRone (BUSPAR) 7.5 MG tablet Take 15 mg by mouth every night at bedtime. 05/10/2022 11/13/19 23 busPIRone (BUSPAR) 7.5 MG tablet Take by mouth. 0 23 carvedilol (COREG) 6.25 MG tablet Take 1 tablet by mouth 2 (Two) Times a Day. 60 tablet 11 07/26/2022 12/08/19 23 Cetirizine HCl (ZyrTEC Allergy) 10 MG capsule Take by mouth. 11/13/19 23 Dexilant 60 MG capsule Take 60 mg by mouth Every Morning. 11/01/2021 11/13/19 23 fexofenadine (SANTIAGO) 180 MG tablet Take 1 tablet by mouth Daily. 03/07/20 23 guaiFENesin (MUCINEX) 600 MG 12 hr tablet Take by mouth. 01/03/20 23 HESPERIDIN-DIOSMIN PO Take 1 capsule by mouth Daily. 11/13/19 23 HYDROcodone-acetami nophen (NORCO) 7.5-325 MG per tabletIndications:M alignant neoplasm of lower-outer quadrant of left breast of female, estrogen receptor positive Take 1 tablet by mouth Every 6 (Six) Hours As Needed for Moderate Pain. 12 tablet 10/26/2022 11/13/19 23 hydrocortisone 2.5 % cream Apply 1 application topically to the appropriate area as directed 2 (Two) Times a Day. 20 g 10/26/2022 01/03/20 23 levothyroxine (SYNTHROID, LEVOTHROID) 25 MCG tablet Take 1 tablet by mouth Daily. 03/07/20 23 lidocaine-prilocain e (EMLA) 2.5-2.5 % creamIndications:Ma lignant neoplasm of upper-inner quadrant of left breast in female, estrogen receptor positive Apply 1 application topically to the appropriate area as directed As Needed (45-60 minutes prior to port access. Cover with saran/plastic wrap.). 30 g 3 07/10/2022 11/13/19 23 nystatin susp + lidocaine viscous (MAGIC MOUTHWASH) oral suspension 5-10 ml swish and spit or swallow QID prn 240 mL 3 07/20/2022 11/13/19 23 OLANZapine (zyPREXA) 5 MG tabletIndications:M alignant neoplasm of upper-inner quadrant of left breast in female, estrogen receptor positive Take 1 tablet by mouth Every Night. Take on days 2, 3 and 4 after chemotherapy. 3 tablet 3 07/10/2022 11/13/19 23 ondansetron ODT (ZOFRAN-ODT) [address] 1 tablet on the tongue Every 8 (Eight) Hours As Needed for Nausea or Vomiting. 60 tablet 5 08/31/2022 01/03/20 23 polycarbophil 625 MG tablet tablet Take 1 tablet by mouth Daily. 03/07/20 23 potassium chloride 10 MEQ CR tablet Take 2 tablets by mouth once daily 60 tablet 10/16/2022 01/03/20 23 Vit-Fe Oidzgdv-CN-RQL ( VITAMIN/MIN +DHA PO) Take 1 tablet by mouth Daily. 11/13/19 23 prochlorperazine (COMPAZINE) 10 MG tabletIndications:M alignant neoplasm of upper-inner quadrant of left breast in female, estrogen receptor positive,CINV (chemotherapy-induc ed nausea and vomiting) Take 1 tablet by mouth Every 6 (Six) Hours As Needed for Nausea or Vomiting. May alternate with zofran 30 tablet 2 08/21/2022 11/13/19 23 pseudoephedrine-gua ifenesin (MUCINEX D) 60-600 MG per 12 hr tablet Take 1 tablet by mouth Every 12 (Twelve) Hours. As needed 11/13/19 23 silver sulfadiazine (SILVADENE, SSD) 1 % cream 1 application Daily. 07/03/2022 11/13/19 23 SSD 1 % cream APPLY CREAM TOPICALLY TO AFFECTED AREA ONCE DAILY 07/03/2022 11/13/19 23 sulfamethoxazole-tr imethoprim (BACTRIM DS,SEPTRA DS) 800-160 MG per tablet Take 1 tablet by mouth 2 (Two) Times a Day. 1 tab BID for 10 days 20 tablet 08/07/2022 11/13/19 23 telmisartan-hydroch lorothiazide (MICARDIS HCT) 40-12.5 MG per tablet Take 1 tablet by mouth Every Evening. 11/28/2020 03/11/20 24 traMADol (ULTRAM) 50 MG tabletIndications:M alignant neoplasm of upper-inner quadrant of left breast in female, estrogen receptor positive,Cancer related pain Take 1 tablet by mouth Every 6 (Six) Hours As Needed for Moderate Pain. 80 tablet 09/18/2022 11/13/19 23 vitamin B-12 (CYANOCOBALAMIN) 1000 MCG tablet Take 1 tablet by mouth Daily. 10/05/19 24 Zinc 50 MG capsule Take 50 mg by mouth Daily. 12/08/19 23 documented as of this encounter Plan of Treatment Upcoming Encounters Date Type Department Care Team (Late st Contact Info) Description 09/18/2024 3:30 PM EST Office Visit [facility] HEMATOLOGY & ONCOLOGY [address] [facility] [address] [place] [phone] Bre Crenshaw MD [address] [facility] [address] [place] [address] 12/31/2024 9:00 AM EDT Office Visit [facility] UROLOGY [address] [facility] [address] [place] [address] Oralia Saha APRN [address] [facility] [address] [place] [address] 05/12/2025 1:45 PM EDT Office Visit [facility] CARDIOLOGY [address] [place] [address] Obed Woodard MD [address] [place] [address] documented as of this encounter Visit Diagnoses Not on filedocumented in this encounter Care Teams Radiology Technologist Relationship Specialty Start Date End Date Herbert Hair MD [address] [facility] [address] [place] [address] PCP - General Adolescent Medicine 03/03/22 documented as of this encounter
--- OUTSIDE RECORDS SUMMARY | 2024-08-17 15:51 | XMS_ITS | Encounter Summary ---
Author Organization [facility] Address [address] [place] [address] Care Team Providers Care Car Repair Supervisor Name Role Phone Herbert Hair MD Primary Care Provider [phone] Encounter Details Date Type Department Care Team (Latest Contact Info) Description 11/13/2022 9:04 AM EST - 11/13/2022 11:59 PM [facility] Hospital Encounter [facility] [address] [facility] [address] [place] [address] Discharge Disposition: Home or Self [...] [facility] [address] [facility] [address] [place] [address] Bre Crenshaw MD [address] [facility] [address] [place] [address] 12/31/2024 9:00 AM EDT Office Visit [facility] UROLOGY [address] [facility] [address] [place] [address] Oralia Saha APRN [address] [facility] [address] [place] [address] 05/12/2025 1:45 PM EDT Office Visit [facility] CARDIOLOGY [address] [facility] [address] [place] [phone] Obed Woodard MD [address]20 [facility] [address] [place], [place] [id number] documented as of this encounter Visit Diagnoses Not on filedocumented in this encounter Care Teams Car Repair Supervisor Relationship Specialty Start Date End Date Herbert Hair MD [address]10 [facility] [address] [place] [address] PCP - General Adolescent Medicine 03/03/22 documented as of this encounter
--- OUTSIDE RECORDS SUMMARY | 2024-08-17 15:51 | XMS_ITS | Encounter Summary ---
Author Organization [facility] Address [address] [place] [address] Care Team Providers Care Manufacturing Teacher Name Role Phone Herbert Hair MD Primary Care Provider Encounter Details Date Type Department Care Team (Latest Contact Info) Description 11/15/2022 9:04 AM EST - 11/15/2022 11:59 PM [facility] Hospital Encounter [facility] [address] [facility] [address] [place] [address] Discharge Disposition: Home or Self [...] Description 09/18/2024 3:30 PM EST Office Visit [facility] HEMATOLOG[facility] & ONCOLOGY [address] [facility] [address] [place] [address] Bre Crenshaw MD [address] [facility] [address] [place] [address] 12/31/2024 9:00 AM EDT Office Visit [facility] UROLOGY [address] [facility] [address] [place] [address] Oralia Saha APRN [address] [facility] [address] [place] [address] 05/12/2025 1:45 PM EDT Office Visit [facility] CARDIOLOGY [address] [facility] [address] [place] [phone] Obed Woodard MD [address] [facility] [address] [place], [place] [phone] documented as of this encounter Visit Diagnoses Not on filedocumented in this encounter Care Teams Manufacturing Teacher Relationship Specialty Start Date End Date Herbert Hair MD 1210 [facility] [address] [place] [address] PCP - General Adolescent Medicine 03/03/22 documented as of this encounter
--- OUTSIDE RECORDS SUMMARY | 2024-08-17 15:51 | XMS_ITS | Encounter Summary ---
Author Organization [facility] Address [address] [place] [address] Care Team Providers Care Php Lamp Developer Name Role Phone Herbert Hair MD Primary Care Provider [phone] Encounter Details Date Type Department Care Team (Latest Contact Info) Description 11/14/2022 9:04 AM EST - 11/14/2022 11:59 PM [facility] Hospital Encounter [facility] [address] [facility] [address] [place] [address] Discharge Disposition: Home or Self [...] - Inhaled Oxygen Concentration - - Weight 88.5 kg (195 lb) 11/14/2022 9:00 AM EST Height - - Body Mass Index 38.08 11/13/2022 3:46 PM EST documented in this encounter Medications at Time [...] 3:30 PM EST Office Visit [facility]COL[facility] [address] [facility] [address] [place] [address] Bre Crenshaw MD [address] [facility] [address] [place] [address] 12/31/2024 9:00 AM EDT Office Visit [facility] [address] [facility] [address] [place] [address] Oralia Saha APRN [address] [facility] [address] [place] [address] 05/12/2025 1:45 PM EDT Office Visit [facility] [address] [facility] [address] [place] [phone] Obed Woodard MD [address]20 [facility] [address] [place] [address] documented as of this encounter Visit Diagnoses Not on filedocumented in this encounter Care Teams Php Lamp Developer Relationship Specialty Start Date End Date Herbert Hair MD 1210 [facility] [address] [place] [address] PCP - General Adolescent Medicine 03/03/22 documented as of this encounter
--- OUTSIDE RECORDS SUMMARY | 2024-08-17 15:51 | XMS_ITS | Encounter Summary ---
Author Organization [facility] Address [address] [place] [address] Care Team Providers Care Fire Fighters Dispatcher Name Role Phone Herbert Hair MD Primary Care Provider [phone] Reason for Visit * Auth/Cert (Routine) Specialty Diagnoses / Procedures Referred By Nasrin hernandez Referred To Contact Diagnoses Malignant neoplasm of lower-outer quadrant of left female breast Procedures [facility] RADIATION TREATMENT DELIVERY 1 MEV >= COMPLEX CHG 3-D RADIOTHERAPY PLAN DOSE-VOLUME HISTOGRAMS [facility] RADIATION TREATMENT MANAGEMENT 5 TREATMENTS CHG THERAPEUTIC RADIOLOGY TX PLANNING COMPLEX CHG GUIDANCE FOR LOCLZJ TARGET VOL FOR RADJ TX DLVR Referral ID Status Reason Start Date Expiration Date Visits Re quested Visits Authorized [id number] 1 1 Encounter Details Date Type Department Care Team (Latest Contact Info) Description 11/29/2022 6:49 AM EST - 11/29/2022 11:59 PM EST Hospital Encounter [facility] [address] [place] [phone] Discharge Disposition: Home or Self Care Social [...] [facility] 1700 [facility] [address] [place] [address] Bre Crenshaw MD 1700 [facility] [address] [place] [address] 12/31/2024 9:00 AM EDT Office Visit [facility] UROLOGY [address]60 [facility] [address] [place] [address] Oralia Saha APRN 1760 [facility] [address] [place] [address] 05/12/2025 1:45 PM EDT Office Visit [facility] CARDIOLOGY [address] [facility] [address] [place] [address] Obed Woodard MD [address] [place] [address] documented as of this encounter Visit Diagnoses Not on filedocumented in this encounter Care Teams Fire Fighters Dispatcher Relationship Specialty Start Date End Date Herbert Hair MD 1210 [facility] [address] [place] [address] PCP - General Adolescent Medicine 03/03/22 documented as of this encounter
--- OUTSIDE RECORDS SUMMARY | 2024-08-17 15:51 | XMS_ITS | Encounter Summary ---
Author Organization [facility] Address [address] [place] [address] Care Team Providers Care Management Consultant Name Role Phone Herbert Hair MD Primary Care Provider Encounter Details Date Type Department Care Team (Late st Contact Info) Description 12/01/2022 Telephone [facility] [address] [place] [phone] Courtney Sams MD [address] [place] [address] Social History Tobacco Use Types Packs/Day Years [...] encounter Miscellaneous Notes * Telephone Encounter - Floresita Castle RN - 12/01/2022 9:37 AM ESTSummary: Requested Medication Called in Silvadene/Lidocaine ointment to patient's listed preferred Pharmacy. Instructions for useprovided. Also, called patient to discuss directions for use. Patient has contact information and will call with any additional questions or concerns. documented in this encounter Plan of Treatment Upcoming Encounters Date Type Department Care Team (Late st Contact Info) Description 09/18/2024 3:30 PM EST Office Visit [facility] HEMATOLOGY & ONCOLOGY [address]00 [facility] [address] [place] [address] Bre Crenshaw MD 1700 [facility] [address] [place] [address] 12/31/2024 9:00 AM EDT Office Visit [facility] UROLOGY [address] [facility] [address] [place] [address] Oralia Saha APRN [address]60 [facility] [address] [place] [address] 05/12/2025 1:45 PM EDT Office Visit [facility] CARDIOLOGY [address] [facility] [address] [place] [address] Obed Woodard MD [address]20 [facility] [address] [place], [place] [id number] documented as of this encounter Visit Diagnoses Not on filedocumented in this encounter Care Teams Management Consultant Relationship Specialty Start Date End Date Herbert Hair MD 1210 [facility] [address] [facility] [place] [address] PCP - General Adolescent Medicine 03/03/22 documented as of this encounter
--- OUTSIDE RECORDS SUMMARY | 2024-08-17 15:51 | XMS_ITS | Encounter Summary ---
Author Organization [facility] Address [address] [place] [address] Care Team Providers Care Jingle Writer Name Role Phone Herbert Hair MD Primary Care Provider + [phone] Reason for Visit * Auth/Cert (Routine) Specialty [...] Expiration Date Visits Re quested Visits Authorized [id number] 1 1 Encounter Details Date Type Department Care Team (Latest Contact Info) Description 01/02/2023 5:40 AM EDT - 01/02/2023 11:59 PM EDT Hospital Encounter [facility] [address] [place] [address] Discharge Disposition: Home or Self Care Social [...] Day. 2nd time at bedtime. 08/11/2022 4 dexlansoprazole (DEXILANT) 60 MG capsule Take 1 capsule by mouth Daily. 11/27/2022 3 fexofenadine (SANTIAGO) 180 MG tablet Take 1 tablet by mouth Daily. 3 levothyroxine (SYNTHROID, LEVOTHROID) 25 MCG tablet Take 1 tablet by mouth Daily. 3 meloxicam (MOBIC) 7.5 MG tablet Take 1 tablet by mouth Daily. Take daily x 7 days. Then only as needed. 20 tablet 03/15/2023 3 oxyCODONE (ROXICODONE) 5 MG immediate release tabletIndications: Fibroid Take 1 tablet by mouth Every 4 (Four) Hours As Needed for Moderate Pain. 10 tablet 03/15/2023 3 polycarbophil 625 MG tablet tablet Take 1 tablet by mouth Daily. 3 polyethylene glycol (MIRALAX) 17 GM/SCOOP powder Take 17 g by mouth Daily. Take daily x 2 weeks to prevent constipation, then as needed. May hold for loose stool 225 g 03/15/2023 3 tamoxifen (NOLVADEX) 20 MG chemo tablet Take 1 tablet by mouth Daily. 30 tablet 11 12/07/2022 3 telmisartan-hydroc hlorothiazide (MICARDIS HCT) 40-12.5 MG per tablet Take 1 tablet by mouth Every Evening. 11/28/2020 4 vitamin B-12 (CYANOCOBALAMIN) 1000 MCG tablet Take 1 tablet by mouth Daily. 4 documented as of this encounter Plan of Treatment Upcoming Encounters Date Type Department Care Team (Late st Contact Info) Description 09/18/2024 3:30 PM EST Office Visit [facility] HEMATOLOGY & ONCOLOGY [address]00 [facility] [address] [place] [address] Bre Crenshaw MD 17[address] [facility] [address] [place] [address] 12/31/2024 9:00 AM EDT Office Visit [facility] UROLOGY [address]60 [facility] [address] [place] [address] Oralia Saha APRN [address]60 [facility] [address] [place], [place] [id number] 05/12/2025 1:45 PM EDT Office Visit [facility] CARDIOLOGY 17[address] [facility] [address] [place] [address] Obed Woodard MD [address] [place], [place] [phone] documented as of this encounter Visit Diagnoses Not on filedocumented in this encounter Care Teams Jingle Writer Relationship Specialty Start Date End Date Herbert Hair MD 1210 [facility] [address] [place] [address] PCP - General Adolescent Medicine 03/03/22 documented as of this encounter
--- OUTSIDE RECORDS SUMMARY | 2024-08-17 15:51 | XMS_ITS | Encounter Summary ---
Author Organization [facility] Address [address] [place] [address] Care Team Providers Care Supervisor Wood Crew Name Role Phone Herbert Hair MD Primary Care Provider [phone] Encounter Details Date Type Department Care Team (Late st Contact Info) Description 11/17/2022 Telephone [facility] [address] [place] [address] Floresita Castle, HUMZA Social History Tobacco Use Types Packs/Day [...] Telephone Encounter - Floresita Castle RN - 11/17/2022 8:42 AM ESTSummary: Return Call Returned patient's call regarding c/o sore throat worsening since Sunday. She refilled Magic Mouthwash and is using as prescribed as well as rotating Tylenol and Ibuprofen and still has c/o ground glass in back of her throat. Will see patient in the Clinic after XRT treatment today for further assessment. documented in this encounter Plan of Treatment Upcoming Encounters Date Type Department Care Team (Late st Contact Info) Description 09/18/2024 3:30 PM EST Office Visit [facility] HEMATOLOGY & ONCOLOGY [address] [facility] [address] [place] [address] Bre Crenshaw MD [address] [facility] [address] [place] [address] 12/31/2024 9:00 AM EDT Office Visit [facility] UROLOGY [address]60 [facility] [address] [place] [address] Oralia Saha APRN 1760 [facility] [address] [place] [address] 05/12/2025 1:45 PM EDT Office Visit [facility] CARDIOLOGY [address] [facility] [address] [place] [address] Obed Woodard MD [address]20 [facility] [address] [place] [address] documented as of this encounter Visit Diagnoses Not on filedocumented in this encounter Care Teams Supervisor Wood Crew Relationship Specialty Start Date End Date Herbert Hair MD 1210 [place] [facility] [address] [place] [address] PCP - General Adolescent Medicine 03/03/22 documented as of this encounter
--- OUTSIDE RECORDS SUMMARY | 2024-08-17 15:51 | XMS_ITS | Encounter Summary ---
Author Organization [facility] Address [address] [place] [address] Care Team Providers Care Cognos Bi Developer Name Role Phone Herbert Hair MD Primary Care Provider [phone] Encounter Details Date Type Department Care Team (Latest Contact Info) Description 11/17/2022 8:53 AM EST - 11/17/2022 11:59 PM [facility] Hospital Encounter [place] [facility] [address]00 [facility] [address] [place] [address] Discharge Disposition: Home or Self [...] [facility] HEMATOLOGY & ONCOLOGY [address] [facility] [address] [place] [address] Bre Crenshaw MD [address] [facility] [address] [place] [address] 12/31/2024 9:00 AM EDT Office Visit [facility] UROLOGY [address] [facility] [address] [place] [address] Oralia Saha APRN 1760 [facility] [address] [place] [address] 05/12/2025 1:45 PM EDT Office Visit [facility] CARDIOLOGY [address] [facility] [address] [place] [address] Obed Woodard MD 1720 [facility] [address] [place], [place] [phone] documented as of this encounter Visit Diagnoses Not on filedocumented in this encounter Care Teams Cognos Bi Developer Relationship Specialty Start Date End Date Herbert Hair MD 1210 [facility] [address] [place] [address] PCP - General Adolescent Medicine 03/03/22 documented as of this encounter
--- OUTSIDE RECORDS SUMMARY | 2024-08-17 15:51 | XMS_ITS | Encounter Summary ---
Author Organization [facility] Address [address] [place] [address] Care Team Providers Care Papier Mache Molder Name Role Phone Herbert Hair MD Primary Care Provider [phone] Encounter Details Date Type Department Care Team (Latest Contact Info) Description 11/29/2022 9:02 AM EST - 11/29/2022 11:59 PM [facility] Hospital Encounter [facility] [address]00 [facility] [address] [place] [address] Discharge Disposition: Home or Self [...] 12/08/19 23 documented as of this encounter Procedure Notes * Courtney Sams MD - 11/29/2022 9:15 AM EST Images from the original note were not included. COMPLETION NOTE PATIENT: Leydi Brown : 1975 COMPLETION DATE: 11/29/2022 DIAGNOSIS: Malignant neoplasm of left breast in female, estrogen receptor positive (HCC) - Stage IIA (cT2, cN1, cM0, G2, ER+, AL+, HER2-) ? Subjective BRIEF HISTORY:?Leydi Brown ??is a very pleasant 47 y.o. female?who underwent bilateral mastectomies??for stage IIa invasive ductal carcinoma of the left breast. ??The right breast was negative. ??The left breast had a 2.4 x 1.8 x 1.8 cm grade 2 invasive ductal carcinoma in the lower outer quadrant. ??There was no DCIS. ??2 lymph nodes were positive for tumor. ??The largest deposit was 12 mm. ??There was lymphovascular invasion present. ??The tumor was ER/AL positive HER2/margie negative.?A PET scan was negative for metastatic disease. ?? She received adjuvant chemotherapy with DD AC followed by Taxol by Dr. Bre Crenshaw. Following radiation she plans to meet with Dr. Jey milianarding hysterectomy and bilateral oophorectomy.She received radiotherapy in our department as follows: TREATMENT COURSE: 11/06-11/29/2022 the left chest wall received 40.05 Wagner in 15 fractions with 10 MV photons 11/06-11/29/2022 the left supraclavicular region received 40.05 Wagner in 15 fractions with 10 MV photons. TOLERANCE: Ms. Brown developed some esophagitis. We recommended Mylanta and she had a couple day treatment break. She also use hydrocodone and Magic mouthwash. We made an adjustment to the treatment field to clear the esophagus. She had no lymphedema. DISPOSITION: At the completion of therapy an appointment was made for her to return on 01/02/2023 at 9:30 AM. She knows to call if she has any problems sooner. Courtney Sams MD Dictated using [employer] dictation documented in this encounter Plan of Treatment Upcoming Encounters Date Type Department Care Team (Late st Contact Info) Description 09/18/2024 3:30 PM EST Office Visit [facility] HEMATOLOGY & ONCOLOGY 1700 [facility] [address] [place] [phone] Bre Crenshaw MD 1700 [facility] [address] [place] [address] 12/31/2024 9:00 AM EDT Office Visit [facility] UROLOGY 1760 [facility] [address] [place] [address] Oralia Saha APRN 1760 [facility] [address] [place] [address] 05/12/2025 1:45 PM EDT Office Visit [facility] CARDIOLOGY [address]20 [facility] [address] [place] [address] Obed Woodard MD [address] [facility] [address] [place] [address] documented as of this encounter Visit Diagnoses Not on filedocumented in this encounter Care Teams Papier Mache Molder Relationship Specialty Start Date End Date Herbert Hair MD 1210 [place] [facility] [address] [facility] 2[address] [facility] PCP - General Adolescent Medicine 03/03/22 documented as of this encounter
--- OUTSIDE RECORDS SUMMARY | 2024-08-17 15:51 | XMS_ITS | Encounter Summary ---
Author Organization [facility] Address [address] [place] [address] Care Team Providers Care Fish Bailer Name Role Phone Herbert Hair MD Primary Care Provider [phone] Reason for Visit * Reason Onset Date Comments INGRID-PHONE CALL 11/14/2022 Encounter Details Date Type Department Care Team (Late st Contact Info) Description 11/14/2022 Telephone [facility] HEMATOLOGY & ONCOLOGY [address] [phone] Bre Crenshaw MD [address] [place] [address] INGRID-PHONE CALL Social History Tobacco Use Types [...] Telephone Encounter - Yanet Preston RN - 11/14/2022 2:38 PM EST I called the patient and she saw dr. Khanna in CLINICAL PROGRAM COORDINATOR yesterday to talk about possible hysterectomy andoophorectomy. She stated that Dr. Khanna was hesitant to do that and wanted to wait. Patient had questions about the hormone therapy and she thought the oophorectomy would mean she did not need the hormone therapy. I explained that we would still recommend endocrine therapy and also will be talking with her about the possibility of verzenio given her node positive disease. She said that she has a huge fibroid and is having pain from that and was disappointed that she could not have the surgery right now. I discussed with Dr. Crenshaw and the fibroid is almost replacing her uterus so the surgery would be difficult per Dr. Khanna report. Patient talked with me for some time and did have a better understanding at the end of the call. I told her we would discuss more when she sees dr. Crenshaw after radiation is complete. Patient verbalized understanding. * Telephone Encounter - Floresita Donaldson - 11/14/2022 12:01 PM EST Patient left a voicemail she wants a call back no detail was left. documented in this encounter Plan of Treatment Upcoming Encounters Date Type Department Care Team (Late st Contact Info) Description 09/18/2024 3:30 PM EST Office Visit [facility] HEMATOLOGY & ONCOLOGY [address]00 [facility] [address] [place] [address] Bre Crenshaw MD [address] [facility] [address] [place] [address] 12/31/2024 9:00 AM EDT Office Visit [facility] UROLOGY [address] [facility] [address] [place] [address] Oralia Saha APRN 1760 [facility] [address] [place] [address] 05/12/2025 1:45 PM EDT Office Visit [facility] CARDIOLOGY 1720 [facility] [address] [place] [address] Obed Woodard MD 1720 [facility] [address] [place], [place] [phone] documented as of this encounter Visit Diagnoses Not on filedocumented in this encounter Care Teams Fish Bailer Relationship Specialty Start Date End Date Herbert Hair MD 1210 [facility] [address] [place] [address] PCP - General Adolescent Medicine 03/03/22 documented as of this encounter
--- OUTSIDE RECORDS SUMMARY | 2024-08-17 15:51 | XMS_ITS | Encounter Summary ---
Author Organization [facility] Address [address] [place] [address] Care Team Providers Care Medicare Sales Executive Name Role Phone Herbert Hair MD Primary Care Provider [phone] Encounter Details Date Type Department Care Team (Latest Contact Info) Description 11/21/2022 8:58 AM EST - 11/21/2022 11:59 PM [facility] Hospital Encounter [facility] [facility] 1700 [facility] [address] [place] [address] Discharge Disposition: Home or Self [...] - Inhaled Oxygen Concentration - - Weight 88.6 kg (195 lb 6.4 oz) 11/21/2022 9:00 A M EST Height - - Body Mass Index 38.16 11/13/2022 3:46 PM EST documented in this [...] Description 09/18/2024 3:30 PM EST Office Visit [facility] HEMATOLOGY & ONCOLOGY 1700 [facility] [address] [place] [address] Bre Crenshaw MD [address]00 [facility] [address] [place] [address] 12/31/2024 9:00 AM EDT Office Visit [facility] UROLOGY [address] [facility] [address] [place] [address] Oralia Saha APRN 1760 [facility] [address] [place] [address] 05/12/2025 1:45 PM EDT Office Visit [facility] CARDIOLOGY [address]20 [facility] [address] [place] [address] Obed Woodard MD 1720 [facility] [address] [place], [place] [phone] documented as of this encounter Visit Diagnoses Not on filedocumented in this encounter Care Teams Medicare Sales Executive Relationship Specialty Start Date End Date Herbert Hair MD 1210 [facility] [address] [place] [address] PCP - General Adolescent Medicine 03/03/22 documented as of this encounter
--- OUTSIDE RECORDS SUMMARY | 2024-08-17 15:51 | XMS_ITS | Encounter Summary ---
Author Organization [facility] Address [address] [place] [address] Care Team Providers Care Community Relations Director Name Role Phone Herbert Hair MD Primary Care Provider + [phone] Reason for Visit * Reason Onset Date Tee CRENSHAW 12/22/2022 Encounter Details Date Type Department Care Team (Late st Contact Info) Description 12/22/2022 Telephone [facility] HEMATOLOGY & ONCOLOGY [address] [address] Bre Crenshaw MD 1700 [place] [address] INGRID Social History Tobacco Use Types Packs/Day Years [...] encounter Miscellaneous Notes * Telephone Encounter - Angel Contreras - 12/22/2022 10:01 AM EDT Spoke with Leydi letting her know we will email the request apparently their fax machine is down even thought we received success faxes. * Telephone Encounter - Claudia Nelson RegSched Rep - 12/22/2022 9:20 AM EDT Caller: Leydi Brown Relationship: Self Best call back number: [phone] Who are you requesting to speak with (clinical staff, provider, specific staff member): CLINICAL Do you know the name of the person who called: ANGEL What was the call regarding: OFFICE OF HAS NOT RECEIVED ORDER FOR PORT REMOVAL. PATIENT CALLED AT THE REQUEST OF OFFICE OF MD. SPARKS. REQUESTING CALL TO DISCUSS SENDING ORDERS BY EMAIL. Do you require a callback: YES documented in this encounter Plan of Treatment Upcoming Encounters Date Type Department Care Team (Late st Contact Info) Description 09/18/2024 3:30 PM EST Office Visit [facility] HEMATOLOGY & ONCOLOGY 1700 [facility] [address] [place] [phone] Bre Crenshaw MD 1700 [facility] [address] [place] [address] 12/31/2024 9:00 AM EDT Office Visit [facility] UROLOGY 1760 [facility] [address] [place] [phone] Oralia Saha APRN 1760 [facility] [address] [place] [phone] 05/12/2025 1:45 PM EDT Office Visit [facility] CARDIOLOGY [address]20 [facility] [address] [place] [address] Obed Woodard MD 1720 [facility] [address] [place] [phone] documented as of this encounter Visit Diagnoses Not on filedocumented in this encounter Care Teams Community Relations Director Relationship Specialty Start Date End Date Herbert Hair MD 1210 [facility] [address] [place] [address] PCP - General Adolescent Medicine 03/03/22 documented as of this encounter
--- OUTSIDE RECORDS SUMMARY | 2024-08-17 15:51 | XMS_ITS | Encounter Summary ---
Author Organization [facility] Address [address] [place] [address] Care Team Providers Care Joint Maker Machine Name Role Phone Herbert Hair MD Primary Care Provider [phone] Encounter Details Date Type Department Care Team (Late st Contact Info) Description 12/07/2022 12:13 PM EST - 12/07/2022 11:59 PM [facility] Hospital Encounter [facility] [address] [phone] Bre Crenshaw MD [address] [place] [phone] Encounter for care related to vascular access port (Primary Dx); Malignant neoplasm of lower-outer quadrant of left breast of female, estrogen receptor positive Discharge Disposition: Home [...] 2nd time at bedtime. 08/11/2022 12/27/19 24 dexlansoprazole (DEXILANT) 60 MG capsule Take 1 [...] 1 tablet by mouth Daily. 03/07/20 23 Lidocaine Viscous HCl (XYLOCAINE) 2 % solution MIX IN EQUAL PARTS WITH SILVADENE AND APPLY SOLUTION TO AFFECTED AREA EVERY 3 TO 4 HOURS NEEDED 12/01/2022 01/03/20 23 ondansetron ODT (ZOFRAN-ODT) [address] 1 tablet on the tongue Every 8 (Eight) Hours As Needed for Nausea or Vomiting. 60 tablet 5 08/31/2022 01/03/20 23 polycarbophil 625 MG tablet tablet Take 1 tablet by mouth Daily. 03/07/20 23 potassium chloride 10 MEQ CR tablet Take 2 tablets by mouth once daily 60 tablet 10/16/2022 01/03/20 23 silver sulfadiazine (SILVADENE, SSD) 1 % cream MIX IN EQUAL PARTS WITH VISCOUS LIDOCAINE AND APPLY TO AFFECTED AREA EVERY 3-4 HOURS DAILY NEEDED 12/01/2022 01/03/20 23 tamoxifen (NOLVADEX) 20 MG chemo tablet Take 1 tablet by mouth Daily. 30 tablet 11 12/07/2022 03/07/20 23 telmisartan-hydroch lorothiazide (MICARDIS HCT) 40-12.5 MG per tablet Take 1 tablet by mouth Every Evening. 11/28/2020 03/11/20 24 vitamin B-12 (CYANOCOBALAMIN) 1000 MCG tablet Take 1 tablet by mouth Daily. 10/05/19 24 documented as of this encounter Progress Notes * Ellen Gentile RN - 12/07/2022 12:30 PM EST Labs drawn on 12/07/2022 via porsha cath by Luba Casanova RN. documented in this encounter Plan of Treatment Upcoming Encounters Date Type Department Care Team (Late st Contact Info) Description 09/18/2024 3:30 PM EST Office Visit [facility] HEMATOLOGY & ONCOLOGY [address] [facility] [address] [place] [phone] Bre Crenshaw MD [address] [facility] [address] [place] [phone] 12/31/2024 9:00 AM EDT Office Visit [facility] UROLOGY [address] [facility] [address] [place] [phone] Oralia Saha APRN [address] [facility] [address] [place], [place] [phone] 05/12/2025 1:45 PM EDT Office Visit [facility] CARDIOLOGY [address] [place] [phone] Obed Woodard MD [address] [place] [address] documented as of this encounter Procedures Procedure Name Priority Date/Time Associated Diagnosis Comments CBC WITH AUTO DIFFERENTIAL Routine 12/07/2022 12:24 PM EST Malignant neoplasm of lower-outer quadrant of left breast of female, estrogen receptor positive CBC AND DIFFERENTIAL Routine 12/07/2022 12:24 PM EST Malignant neoplasm of lower-outer quadrant of left breast of female, estrogen receptor positive COMPREHENSIVE METABOLIC PANEL Routine 12/07/2022 12:24 PM EST Malignant neoplasm of lower-outer quadrant of left breast of female, estrogen receptor positive documented in this encounter Results * (ABNORMAL) CBC Auto Differential (12/07/2022 12:24 PM EST) WBC 3.71 3.40 - 10.80 10*3/mm3 12/07/2022 12:41 PM EST [facility] RBC 3.65(L) 3.77 - 5.28 10*6/mm3 12/07/2022 12:41 PM EST [facility] Hemoglobin 11.8(L) 12.0 - 15.9 g/dL 12/07/2022 12:41 PM EST [facility] Hematocrit 35.6 34.0 - 46.6 % 12/07/2022 12:41 PM EST [facility] MCV 97.5(H) 79.0 - 97.0 fL 12/07/2022 12:41 PM EST [facility] MCH 32.3 26.6 - 33.0 pg 12/07/2022 12:41 PM [facility] MCHC 33.1 31.5 - 35.7 g/dL 12/07/2022 12:41 PM [facility] RDW 12.4 12.3 - 15.4 % 12/07/2022 12:41 PM [facility] RDW-SD 45.0 37.0 - 54.0 fl 12/07/2022 12:41 PM [facility] MPV 10.4 6.0 - 12.0 fL 12/07/2022 12:41 PM [facility] Platelets 172 140 - 450 10*3/mm3 12/07/2022 12:41 PM [facility] Neutrophil % 55.2 42.7 - 76.0 % 12/07/2022 12:41 PM [facility] Lymphocyte % 26.7 19.6 - 45.3 % 12/07/2022 12:41 PM [facility] Monocyte % 11.1 5.0 - 12.0 % 12/07/2022 12:41 PM [facility] Eosinophil % 6.5(H) 0.3 - 6.2 % 12/07/2022 12:41 PM [facility] Basophil % 0.5 0.0 - 1.5 % 12/07/2022 12:41 PM [facility] Immature Grans % 0.0 0.0 - 0.5 % 12/07/2022 12:41 PM [facility] Neutrophils, Absolute 2.05 1.70 - 7.00 10*3/mm3 12/07/2022 12:41 PM [facility] Lymphocytes, Absolute 0.99 0.70 - 3.10 10*3/mm3 12/07/2022 12:41 PM [facility] Monocytes, Absolute 0.41 0.10 - 0.90 10*3/mm3 12/07/2022 12:41 PM [facility] Eosinophils, Absolute 0.24 0.00 - 0.40 10*3/mm3 12/07/2022 12:41 PM EST [facility] Basophils, Absolute 0.02 0.00 - 0.20 10*3/mm3 12/07/2022 12:41 PM EST [facility] Immature Grans, Absolute 0.00 0.00 - 0.05 10*3/mm3 12/07/2022 12:41 PM EST [facility] Blood Port / Unknown 12/07/2022 12 :24 PM EST 12/07/2022 12:39 PM EST Hilda Christianson Matheus [employer] LAB BLOOD ORDERABLES Final Result [facility]
[address] [place] [address], * (ABNORMAL) Comprehensive Metabolic Panel (12/07/2022 12:24 PM EST) Glucose 116(H) 65 - 99 mg/dL 12/07/2022 1:18 PM EST [facility] BUN 15 6 - 20 mg/dL 12/07/2022 1:18 PM EST [facility] Creatinine 0.73 0.57 - 1.00 mg/dL 12/07/2022 1:18 PM EST [facility] Sodium 140 136 - 145 mmol/L 12/07/2022 1:18 PM EST [facility] Potassium 3.7 3.5 - 5.2 mmol/L 12/07/2022 1:18 PM EST [facility] Comment:Slight hemolysis det ected by analyzer. Results may be affected. Chloride 103 98 - 107 mmol/L 12/07/2022 1:18 PM EST [facility] CO2 26.0 22.0 - 29.0 mmol/L 12/07/2022 1:18 PM EST [facility] Calcium 8.8 8.6 - 10.5 mg/dL 12/07/2022 1:18 PM EST [facility] Total Protein 6.7 6.0 - 8.5 g/dL 12/07/2022 1:18 PM EST [facility] Albumin 4.3 3.5 - 5.2 g/dL 12/07/2022 1:18 PM EST [facility] ALT (SGPT) 27 1 - 33 U/L 12/07/2022 1:18 PM [facility] AST (SGOT) 23 1 - 32 U/L 12/07/2022 1:18 PM EST [facility] Alkaline Phosphatase 77 39 - 117 U/L 12/07/2022 1:18 PM [facility] Total Bilirubin 0.2 0.0 - 1.2 mg/dL 12/07/2022 1:18 PM EST [facility] Globulin 2.4 gm/dL 12/07/2022 1:18 PM [facility] Comment:Calculated Result A/G Ratio 1.8 g/dL 12/07/2022 1:18 PM [facility] BUN/Creatinine Ratio 20.5 7.0 - 25.0 12/07/2022 1:18 PM [facility] Anion Gap 11.0 5.0 - 15.0 mmol/L 12/07/2022 1:18 PM [facility] eGFR 101.6 >60.0 mL/min/1.7 3 12/07/2022 1:18 PM [facility] Blood Port / Unknown 12/07/2022 12 :24 PM EST 12/07/2022 12:41 PM EST [facility] LABORATORY - 12/07/2022 1:18 PM EST GFR Normal >60 Chronic Kidney Disease <60 Kidney Failure <15 Hilda Jarvis [employer] LAB BLOOD ORDERABLES Final Result [facility]
[address] [place] [address], documented in this encounter Visit Diagnoses Diagnosis Encounter for care related to vascular access port- Primary Malignant neoplasm of lower-outer quadrant of left breast of female, estrogen receptor positive documented in this encounter Administered Medications Inactive Administered Medications - up to 3 most recent administrations Medication Order MAR Action Action Date Dose Rate Site heparin injection 500 Units 500 Units, Intravenous, As Needed, Line Care, Starting on Bina 12/07/22 at 1223, Use for Implanted Ports.Indications:Encounter for care related to vascular access port,Malignant neoplasm of lower-outer quadrant of left breast of female, estrogen receptor positive Given 12/07/2022 12:27 PM EST 500 Units documented in this encounter Care Teams Joint Maker Machine Relationship Specialty Start Date End Date Herbert Hair MD [facility] [address] [facility] [address] [place] [address] PCP - General Adolescent Medicine 03/03/22 documented as of this encounter
--- OUTSIDE RECORDS SUMMARY | 2024-08-17 15:51 | XMS_ITS | Encounter Summary ---
Author Organization [facility] Address [address] [place] [address] Care Team Providers Care Debarker Operator Name Role Phone Herbert Hair MD Primary Care Provider Encounter Details Date Type Department Care Team (Late st Contact Info) Description 11/20/2022 Telephone [facility] OBGYN [address] [facility] [address] [place] [phone] Haleigh Khanna MD [address] [place] [phone] Social History Tobacco Use Types Packs/Day Years [...] encounter Miscellaneous Notes * Telephone Encounter - Rita Issa MA - 11/20/2022 3:24 PM EST Medical records for the past x3 years have been faxed to requested facility. * Telephone Encounter - Rita Issa MA - 11/20/2022 2:45 PM EST S/w pt she v/u [facility] answer. Pt. States she made an appt with Dr. Dhaliwal for 01/22/2023 for a 2nd opinion and has requested medical records for the past 3 years from our office be faxed to [phone]. I v/u and told the patient I would get these faxed over to Dr. Dhaliwal's office. She v/u * Telephone Encounter - Lelo Ryder RegSched Rep - 11/20/2022 2:30 PM EST PT RETURNING MISSED CALL, PLEASE ADVISE PT. * Telephone Encounter - Rita Issa MA - 11/20/2022 2:21 PM EST lvom for pt to CB * Telephone Encounter - Rita Issa MA - 11/20/2022 11:53 AM EST Per Brannon, clinical biofuels technology development manager: it is best to NOT get 2nd opinion within our office, if patient decides to get a 2nd opinion out of our office she is able to come back to our office if she decides too. * Telephone Encounter - Rita Issa MA - 11/20/2022 11:14 AM EST S/w pt she wanted to know the size of her fibroids from last year on OV 01/09/2022. I gave the patient the fibroid sizes. Patient states the most recent TVU that was done on 11/13/2022 her fibroid showed 9.5cm and patient voiced her concern about the increase in size of the fibroid and states she would like a hysterectomy. Patient states that Dr. Bre Crenshaw told her previously that a hysterectomy would be a good idea but then when she spoke with Dr. Khanna , she explained to the patient that it was better to not have a hysterectomy at this time. Patient states with her HX of stage 2 breast cancer and continued pelvic pain that is sometimes doubled over in pain she is concerned and would really like to have hysterectomy or fibroids removed. The patient asked if I would discuss 2nd opinion options with our clinical biofuels technology development manager and CB with our protocols. * Telephone Encounter - Soila Bravo RegSched Rep - 11/20/2022 10:24 AM EST Pt returning call * Telephone Encounter - Rita Issa MA - 11/20/2022 10:21 AM EST lvom for pt to CB * Telephone Encounter - Liliam Thakkar RegSched Rep - 11/20/2022 10:07 AM EST Patient is calling to speak to a nurse about fibroids. documented in this encounter Plan of Treatment Upcoming Encounters Date Type Department Care Team (Late st Contact Info) Description 09/18/2024 3:30 PM EST Office Visit [facility] HEMATOLOGY & ONCOLOGY [address] [facility] [address] [place] [address] Bre Crenshaw MD [address] [facility] [address] [place] [address] 12/31/2024 9:00 AM EDT Office Visit [facility] UROLOGY [address] [facility] [address] [place], [place] [phone] Oralia Saha APRN [address] [facility] [address] [place], [place] [phone] 05/12/2025 1:45 PM EDT Office Visit [facility] CARDIOLOGY [address] [facility] [address] [place] [phone] Obed Woodard MD [address] [facility] [address] [place], [place] [phone] documented as of this encounter Visit Diagnoses Not on filedocumented in this encounter Care Teams Debarker Operator Relationship Specialty Start Date End Date Herbert Hair MD [address] [facility] [address] [place] [address] PCP - General Adolescent Medicine 03/03/22 documented as of this encounter
--- OUTSIDE RECORDS SUMMARY | 2024-08-17 15:51 | XMS_ITS | Encounter Summary ---
Author Organization [facility] Address [address] [place] [address] Care Team Providers Care Professor Of Business Name Role Phone Herbert Hair MD Primary Care Provider Reason for Visit * Reason Comments Malignant neoplasm of lower-inner quadra nt of left breast in * Auth/Cert (Routine) Specialty Diagnoses / Procedures Referred By Contac [...] Expiration Date Visits Re quested Visits Authorized [id number] 1 1 Encounter Details Date Type Department Care Team (Late st Contact Info) Description 01/02/2023 9:30 AM EDT Office Visit [facility] [address] [place] [phone] Alisha Vitale, DIGITAL MEDIA SPECIALIST [address] [place] [address] Malignant neoplasm of lower-inner quadrant of left [...] Sign Reading Time Taken Comments Blood Pressure 134/86 01/02/2023 10:06 AM EDT Pulse 72 01/02/2023 10:06 AM EDT Temperature 36.2 ??C (97.2 ??F) 01/02/2023 1 0:06 AM EDT Respiratory Rate 16 01/02/2023 10:0 6 AM EDT Oxygen Saturation 96% 01/02/2023 10: 06 AM EDT Inhaled Oxygen Concentration - - Weight 88.9 kg (195 lb 14.4 oz) 023 10:06 AM EDT Height - - Body Mass Index 38.26 12/07/2022 11:05 AM EST documented in this encounter Progress Notes * Alisha Vitale, DIGITAL MEDIA SPECIALIST - 01/02/2023 9:30 AM EDT FOLLOW UP NOTE [facility] 1975 COMPLETION DATE: 11/29/2022 DIAGNOSIS: Malignant neoplasm of left breast in female, estrogen receptor positive - Stage IIA (cT2, cN1, cM0, G2, ER+, ME+, HER2-) BRIEF HISTORY: Leydi Brown is a 47 y.o. female presenting for initial follow-up visit of her left-sided breast cancer. She was found to have abnormal mammogram, and underwent breast biopsy of a 2.1 cm left breast mass and lymph node FNA on 05/05/2022 showing invasive ductal carcinoma. PET/CT scan05/30/2022 showed the biopsy proven left breast mass to be hypermetabolic with left axillary lymphadenopathy and no evidence of distant metastatic disease. The patient underwent bilateral mastectomies06/13/[address] SPARKS. Pathology revealed the right breast was negative. ??The left breast had a 2.4 x 1.8 x 1.8 cm grade 2 invasive ductal carcinoma in the lower outer quadrant. ??There was no DCIS.2/8 lymph nodes were positive for tumor. ??The largest deposit was 12 mm. ??There was lymphovascular invasion present. ??The tumor was ER/ME positive, HER2/margie negative.?Genetics testing was negative. She received adjuvant chemotherapy with dd AC followed by Taxol. She then underwent adjuvant radiation therapy to the left chest wall and regional lymphatics consisting of 40.05 [place] in 15 fractions, completing 11/29/2022. DIBH technique was utilized. The patient tolerated treatment well. She diddevelop some esophagitis, managed with Mylanta, Magic mouthwash, and a brief treatment break. Adjustments were made to the treatment field to clear the esophagus. At this point, she reports odynophagia is much improved. She developed moist desquamation involving the anterior left chest wall and supraclavicular area, managed with application of Aquaphor and Silvadene/lidocaine topically. She is now applying just a body oil. She continues to endorse intermittent left chest wall pain. She reports numbness within the axilla postoperatively. She did develop lymphedema of the left upper extremity, previously seen in the PT lymphedema clinic. She now performs stretching, massage, and range of motion exercises at home. She continues to wear a compression sleeve. She reports treatment related fatigue is slowly subsiding. She has begun adjuvant tamoxifen, noting some increased generalized joint pains and increased hot flashes. She is scheduled to undergo TLH/BSO on 03/15/[address] Awad. Thepatient denies additional acute concerns today. MEDICATIONS: Medication reconciliation for the patient was reviewed and confirmed in the electronicmedical record. Review of Systems Constitutional: Positive for fatigue. Endocrine: Positive for hot flashes. Musculoskeletal: Positive for arthralgias. Psychiatric/Behavioral: The patient is nervous/anxious. All other systems reviewed and are negative. KPS 90% Physical Exam Vitals and nursing note reviewed. Constitutional: General: She is not in acute distress. Appearance: Normal appearance. She is well-developed. HENT: Head: Normocephalic and atraumatic. Eyes: Conjunctiva/sclera: Conjunctivae normal. Pupils: Pupils are equal, round, and reactive to light. Cardiovascular: Rate and Rhythm: Normal rate and regular rhythm. Heart sounds: No murmur heard. No friction rub. Pulmonary: Effort: Pulmonary effort is normal. Breath sounds: Normal breath sounds. No wheezing. Chest: Comments: The breasts are surgically absent bilaterally. Mild residual erythema and hyperpigmentation involving the anterior left chest wall consistent with radiation change. Skin otherwise intact. No suspicious nodules or masses palpable. No axillary adenopathy palpable. There is cording and lymphedema involving the left axilla, with 1+ lymphedema LUE and compression sleeve in place. Musculoskeletal: General: Normal range of motion. Cervical back: Normal range of motion and neck supple. Comments: LUE with full ROM. Lymphadenopathy: Cervical: No cervical adenopathy. Skin: General: Skin is warm and dry. Neurological: Mental Status: She is alert and oriented to person, place, and time. Psychiatric: Behavior: Behavior normal. Thought Content: Thought content normal. Judgment: Judgment normal. VITAL SIGNS: Vitals: 01/02/23 1006 BP: 134/86 Pulse: 72 Resp: 16 Temp: 97.2 ??F (36.2 ??C) TempSrc: Temporal SpO2: 96% Weight: 88.9 kg (195 lb 14.4 oz) PainSc: 0-No pain The following portions of the patient's history were reviewed and updated as appropriate: allergies, current medications, past family history, past medical history, past social history, past surgicalhistory and problem list. Diagnoses and all orders for this visit: 1. Malignant neoplasm of lower-inner quadrant of left breast in female, estrogen receptor positive (Primary) IMPRESSION: Joannwilman Brown is a 47 y.o. female with recent diagnosis of a stage IIA (pT2, pN1a, cM0), grade 2 ER/ME postiive, HER2/margie negative IDC of the left breast. She is status post bilateral mastectomies, with right breast negative and left breast revealing 2.4 cm tumor and 2/8 lymph nodes involved. She completed adjuvant chemotherapy with Dr. Crenshaw. She then underwent adjuvant radiation to the left chest wall and regional lymphatics, completing 1 month ago. She tolerated treatment fairly well. She developed the anticipated grade 1 fatigue, grade 1 esophagitis, grade 2 radiation dermatitis, all appropriately subsiding at this point. We discussed the role of local chest wall and axillary massage, as well as stretching and range of motion exercises of the left upper extremity to minimize treatment-related fibrosis and lymphedema. We discussed that lymphedema can wax and wane. Recommend she continue to use compression sleeve. Clinical exam of the left chest wall and axilla today is benign. The patient reports she is uninterested in pursuing surgical reconstruction of the breasts. The patient has begun adjuvant endocrine therapy with tamoxifen, which she is tolerating fairly well. The patient is also planned to undergo prophylactic TLH/BSO on 03/15/[address] Awad. Anticipate the patient will likely be switched to an aromatase inhibitor at some point following surgery. Th e patient and I reviewed follow-up intervals including serial clinical exams and further imaging studies as clinically indicated. We discussed no role of mammograms since she underwent bilateral mastectomies. RECOMMENDATIONS: Mrs. Brown continues routine oncologic surveillance under the care of Dr. Crenshaw, with follow-up in the survivorship clinic scheduled 03/07/2023. Additionally, she continues to see Dr. SPARKS in the surgical oncology breast clinic. Given the close follow-up with these physicians, as well as Dr. Awad with gynecology and Dr. Woodard with the cardio-oncology clinic, radiation oncologywill sign off but will gladly be available as needed. Return if symptoms worsen or fail to improve, for Office Visit. Alisha Vitale APRN I spent a total of 40 minutes on today's visit, with more than 20 minutes in direct face to face communication, and the remainder of the time spent in reviewing the relevant history, records, available imaging, and for documentation. documented in this encounter Plan of Treatment Upcoming Encounters Date Type Department Care Team (Late st Contact Info) Description 09/18/2024 3:30 PM EST Office Visit [facility] HEMATOLOGY & ONCOLOGY [address] [facility] [address] [place] [address] Bre Crenshaw MD [address] [facility] [address] [place] [address] 12/31/2024 9:00 AM EDT Office Visit [facility] UROLOGY [address] [facility] [address] [place] [address] Oralia Saha APRN [address] [facility] [address] [place] [address] 05/12/2025 1:45 PM EDT Office Visit [facility] CARDIOLOGY [address] [facility] [address] [place] [address] Obed Woodard MD [address] [facility] [address] [place], [place] [phone] documented as of this encounter Visit Diagnoses Diagnosis Malignant neoplasm of lower-inner quadrant of left breast in female, estrogen receptor positive- Primary documented in this encounter Care Teams Professor Of Business Relationship Specialty Start Date End Date Herbert Hair MD [address] [facility] [address] [place] [address] PCP - General Adolescent Medicine 03/03/22 documented as of this encounter
--- OUTSIDE RECORDS SUMMARY | 2024-08-17 15:51 | XMS_ITS | Encounter Summary ---
Author Organization [facility] Address [address] [place] [address] Care Team Providers Care News Cameraman Name Role Phone Herbert Hair MD Primary Care Provider [phone] Encounter Details Date Type Department Care Team (Latest Contact Info) Description 11/28/2022 8:56 AM EST - 11/28/2022 11:59 PM [facility] Hospital Encounter [facility] [address] [facility] [address] [place] [address] Discharge Disposition: Home or Self [...] - Inhaled Oxygen Concentration - - Weight 87.4 kg (192 lb 11.2 oz) 11/28/2022 9:00 AM EST Height - - Body Mass Index 37.63 11/13/2022 3:46 PM EST documented in this [...] [facility] [address] [facility] [address] [place] [phone] Bre Crenshaw MD [address] [facility] [address] [place] [address] 12/31/2024 9:00 AM EDT Office Visit [facility] UROLOGY [address] [facility] [address] [place] [address] Oralia Saha APRN [address]60 [facility] [address] [place], [place] [id number] 05/12/2025 1:45 PM EDT Office Visit [facility] CARDIOLOGY [address] [facility] [address] [place] [phone] Obed Woodard MD [address] [place] [address] documented as of this encounter Visit Diagnoses Not on filedocumented in this encounter Care Teams News Cameraman Relationship Specialty Start Date End Date Herbert Hair MD [address] [facility] [address] [place] [address] PCP - General Adolescent Medicine 03/03/22 documented as of this encounter
--- OUTSIDE RECORDS SUMMARY | 2024-08-17 15:52 | XMS_ITS | Encounter Summary ---
Author Organization [facility] Address [address] [place] [address] Care Team Providers Care Cold Roll Packer Sheet Iron Name Role Phone Herbert Hair MD Primary Care Provider + [phone] Reason for Referral * Diagnostic Imaging (Routine) - Closed Specialty Diagnoses / Procedures Referred By Contac t Referred To Contact Diagnoses Status post administration of cardiotoxic chemotherapy Procedures Adult Transthoracic Echo Limited W/ Cont if Necessary Per Protocol Obed Woodard MD [address] [place] [address] Phone: tel: fax: [address] [address] Phone: tel: Referral ID Status Reason Start Date Expiration Date Visits Re quested Visits Authorized [id number] Closed 07/26/2022 07/26/2023 1 1 Reason for Visit * Diagnostic Imaging (Routine) - Closed Specialty Diagnoses / Procedures Referred By Contac t Referred To Contact Diagnoses Status post administration of cardiotoxic chemotherapy Procedures Adult Transthoracic Echo Limited W/ Cont if Necessary Per Protocol Obed Woodard MD [address] [place] [address] Phone: tel: fax: [facility] [address] [place] [address] Phone: tel: Referral ID Status Reason Start Date Expiration Date Visits Re quested Visits Authorized [id number] Closed 07/26/2022 07/26/2023 1 1 Encounter Details Date Type Department Care Team (Late st Contact Info) Description 10/06/2022 9:57 AM EST - 10/06/2022 11:59 PM EST Hospital Encounter [facility] CARDIOLOGY AT [address] [address] Obed Woodard MD [address] [place] [address] Status post administration of cardiotoxic chemotherapy Discharge Disposition: Home or Self Care Social [...] Retired PHQ-9: Brief Depression Severity Measure Score 8 07/11/2022 Comments No Sex and Gender Information Value [...] - Inhaled Oxygen Concentration - - Weight 88 kg (194 lb 0.1 oz) 10/06/2022 9:57 AM EST Height 154.9 cm (5' 0.98 ) 10/06/2022 9:57 AM ES T Body Mass Index 36.68 10/06/2022 9:57 AM EST documented in this encounter Medications at Time of Discharge fluticasone (FLONASE) 50 MCG/ACT nasal spray Administer 2 sprays into the nostril(s) as directed by provider Daily. propranolol (INDERAL) 20 MG tablet Take 1 tablet by mouth every night at bedtime. 08/12/2022 busPIRone (BUSPAR) 15 MG tablet Take 1 tablet by mouth 2 (Two) Times a Day. 2nd time at bedtime. 08/11/2022 12/27/19 24 busPIRone (BUSPAR) 7.5 MG tablet Take 15 mg by mouth every night at bedtime. 05/10/2022 11/13/19 23 carvedilol (COREG) 6.25 MG tablet Take 1 tablet by mouth 2 (Two) Times a Day. 60 tablet 11 07/26/2022 12/08/19 23 Dexilant 60 MG capsule Take 60 mg by mouth Every Morning. 11/01/2021 11/13/19 23 fexofenadine (SANTIAGO) 180 MG tablet Take 1 tablet by mouth Daily. 03/07/20 23 HESPERIDIN-DIOSMIN PO Take 1 capsule by mouth Daily. 11/13/19 23 levothyroxine (SYNTHROID, LEVOTHROID) 25 MCG tablet [...] CR tablet Take 2 tablets by mouth Daily. Two tablets 60 tablet 1 07/27/2022 10/16/19 23 Vit-Fe [id number]-UD-YRC ( VITAMIN/MIN +DHA PO) Take 1 tablet [...] [facility] [address] [facility] [address] [place] [phone] Bre Crenshaw MD [address] [facility] [address] [place] [address] 12/31/2024 9:00 AM EDT Office Visit [facility] UROLOGY [address] [facility] [address] [place] [address] Oralia Saha APRN [address] [facility] [address] [place] [address] 05/12/2025 1:45 PM EDT Office Visit [facility] CARDIOLOGY [address] [facility] [address] [place] [phone] Obed Woodard MD [address] [facility] [address] [place] [address] documented as of this encounter Procedures Procedure Name Priority Date/Time Associated Diagnosis Comments LIMITED 2D ECHO COLOR FLOW AND STRAIN Routine 10/06/2022 10:41 AM EST Status post administration of cardiotoxic chemotherapy documented in this encounter Results * LIMITED 2D ECHO COLOR FLOW AND STRAIN (10/06/2022 10:41 AM EST) Target HR (85%) 146 bpm Max. Pred. HR (100%) 172 bpm EF(MOD-bp) 61.0 % LVIDd 4.2 cm LVIDs 2.8 cm IVSd 1.07 cm LVPWd 0.92 cm FS 32.4 % IVS/LVPW 1.17 cm ESV(cubed) 22.9 ml LV Sys Vol (BSA corrected) 8.1 cm2 EDV(cubed) 74.1 ml LV Peña Vol (BSA corrected) 19.0 cm2 LVOT area 2.27 cm2 LV mass(C)d 136.1 grams LVOT diam 1.70 cm EDV(MOD-sp2) 63.0 ml EDV(MOD-sp4) 35.0 ml ESV(MOD-sp2) 28.0 ml ESV(MOD-sp4) 15.0 ml SV(MOD-sp2) 35.0 ml SV(MOD-sp4) 20.0 ml SVi(MOD-SP2) 19.0 ml/m2 SVi(MOD-SP4) 10.9 ml/m2 EF(MOD-sp2) 55.6 % EF(MOD-sp4) 57.1 % LA ESV Index (BP) 16.8 ml/m2 LA dimension (2D) 2.7 cm Ao root diam 3.0 cm LV GLOBAL STRAIN -19.0 % BH CV VAS BP RIGHT ARM 132/91 mmHg Anatomical Region Laterality Modality Ultrasound Narrative 10/06/2022 11:58 AM EST ?Left ventricular systolic function is normal. Calculated left ventricular EF = 61% Left ventricular ejection fraction appears to be 61 - 65%. ?Normal global longitudinal LV strain (GLS) = -19.0%. ?There is no evidence of pericardial effusion Left Ventricle Left ventricular systolic function is normal. Calculated left ventricular EF = 61% Left ventricular ejection fraction appears to be 61 - 65%. Septal wall motion is normal. Normal global longitudinal LV strain (GLS) = - 19.0%. Mitral Valve Trace mitral valve regurgitation is present. Pericardium The pericardium is normal. There is no evidence of pericardial effusion. . Study Quality Normal sinus was the predominant rhythm observed during the procedure. us Obed Woodard MD CV ECHO ORDERABLES Vanda l Result documented in this encounter Visit Diagnoses Diagnosis Status post administration of cardiotoxic chemotherapy documented in this encounter Additional Health Concerns Assessment Noted Time PHQ-2 Depression Total Score: 2 07/11/20 22 1:07 PM EDT documented as of this encounter Care Teams Cold Roll Packer Sheet Iron Relationship Specialty Start Date End Date Herbert Hair MD 1210 [facility] [address] [place] [address] PCP - General Adolescent Medicine 03/03/22 documented as of this encounter
--- OUTSIDE RECORDS SUMMARY | 2024-08-17 15:52 | XMS_ITS | Encounter Summary ---
Author Organization [facility] Address [address] [place] [address] Care Team Providers Care Heel Blacker Name Role Phone Herbert Hair MD Primary Care Provider + [phone] Encounter Details Date Type Department Care Team (Latest Contact Info) Description 10/17/2022 2:21 PM EST - 10/17/2022 11:59 PM [facility] Hospital Encounter [facility] [address] [facility] [address] [place] [phone] Malignant neoplasm of lower-inner quadrant of left breast in female, estrogen receptor positive (Primary Dx); Encounter for care related to vascular access port; Malignant neoplasm of lower-outer quadrant of left [...] Sign Reading Time Taken Comments Blood Pressure 134/87 10/17/2022 2:28 PM EST Pulse 111 10/17/2022 2:28 PM EST Temperature 36.1 ??C (96.9 ??F) 10/17/2022 2:28 PM ES T Respiratory Rate 18 10/17/2022 2:28 PM EST Oxygen Saturation - - Inhaled Oxygen Concentration - - Weight 87.1 kg (192 lb) 10/17/2022 2:28 PM EST Height 152.4 cm (5') 10/17/2022 2:28 PM EST Body Mass Index 37.5 10/17/2022 2:28 PM EST documented in this encounter Medications [...] 12 hr tablet Take by mouth. 01/03/20 HESPERIDIN-DIOSMIN PO Take 1 capsule by mouth Daily. 11/13/19 23 HYDROcodone-acetami nophen (NORCO) 5-325 MG per tabletIndications:M alignant neoplasm of upper-inner quadrant of left breast in female, estrogen receptor positive Take 1 tablet by mouth Every 6 (Six) Hours As Needed for Moderate Pain for up to 30 days. 1--2 tablets 15 tablet 10/12/2022 10/26/19 23 levothyroxine (SYNTHROID, LEVOTHROID) 25 MCG tablet [...] daily 60 tablet 10/16/2022 01/03/20 23 Vit-Fe Jkksijw-WZ-TIW ( VITAMIN/MIN +DHA PO) Take 1 tablet [...] Description 09/18/2024 3:30 PM EST Office Visit [facility] HEMATOLOGY & ONCOLOGY [address] [place] [phone] Bre Crenshaw MD [address] [facility] [address] [place] [address] 12/31/2024 9:00 AM EDT Office Visit [facility] UROLOGY [address] [facility] [address] [place] [address] Oralia Saha APRN [address]60 [facility] [address] [place], [place] [phone] 05/12/2025 1:45 PM EDT Office Visit [facility] CARDIOLOGY [address] [facility] [address] [place] [phone] Obed Woodard MD [address] [facility] [address] [place], [place] [phone] documented as of this encounter Visit Diagnoses Diagnosis Malignant neoplasm of lower-inner quadrant of left breast in female, estrogen receptor positive- Primary Encounter for care related to vascular access port Malignant neoplasm of lower-outer quadrant of left breast of female, estrogen receptor positive documented in this encounter Administered Medications Inactive Administered Medications - up to 3 most recent administrations Medication Order MAR Action Action Date Dose Rate Site heparin injection 500 Units 500 Units, Intravenous, As Needed, Line Care, Starting on Sun10/17/22 at 1438, Use for Implanted Ports.Indications:Encounte r for care related to vascular access port,Malignant neoplasm of lower-outer quadrant of left breast of female, estrogen receptor positive Given 10/17/2022 3:40 PM EST 500 Units sodium chloride 0.9 % bolus 1,000 mL 1,000 mL, Intravenous, at 1,000 mL/hr, Administer over 1 Hours, Once, On Sun10/17/22 at 1431, For 1 doseIndications:Malignant neoplasm of lower-inner quadrant of left breast in female, estrogen receptor positive New Bag 10/17/2022 2:35 PM EST 1,000 mL 1000 mL/hr documented in this encounter Additional Health Concerns Assessment Noted Time PHQ-2 Depression Total Score: 2 07/11/20 22 1:07 PM EDT documented as of this encounter Care Teams Heel Blacker Relationship Specialty Start Date End Date Herbert Hair MD 1210 [facility] [address] [facility] [place] [address] PCP - General Adolescent Medicine 03/03/22 documented as of this encounter
--- OUTSIDE RECORDS SUMMARY | 2024-08-17 15:52 | XMS_ITS | Encounter Summary ---
Author Organization [facility] Address [address] [place] [address] Care Team Providers Care Manager Digital Name Role Phone Herbert Hair MD Primary Care Provider [phone] Encounter Details Date Type Department Care Team (Late st Contact Info) Description 11/01/2022 2:19 PM EST - 11/01/2022 11:[address] [facility] Hospital Encounter [facility] [address] [facility] [address] [place] [address] Hilda Jarvis, LEATHER STAMPER [address] [facility] [address] [place] [phone] Malignant neoplasm of lower-inner quadrant of left [...] Sign Reading Time Taken Comments Blood Pressure 129/92 11/01/2022 2:36 PM EST Pulse 115 11/01/2022 2:36 PM EST Temperature 36.7 ??C (98 ??F) 11/01/2022 2:36 PM EST Respiratory Rate 16 11/01/2022 2:36 PM EST Oxygen Saturation - - Inhaled Oxygen Concentration - - Weight 87.5 kg (193 lb) 11/01/2022 2:36 PM EST Height 152.4 cm (5') 11/01/2022 2:36 PM EST Body Mass Index 37.69 11/01/2022 2:36 PM EST documented in this encounter Medications [...] 4 after chemotherapy. 3 tablet 3 07/10/2022 02/13/20 23 ondansetron ODT (ZOFRAN-ODT) [address] 1 tablet on the tongue Every 8 (Eight) Hours As Needed for Nausea or Vomiting. 60 tablet 5 08/31/2022 01/03/20 23 polycarbophil 625 MG tablet tablet Take 1 tablet by mouth Daily. 03/07/20 23 potassium chloride 10 MEQ CR tablet Take 2 tablets by mouth once daily 60 tablet 10/16/2022 01/03/20 23 Vit-Fe Oqumvsb-GK-NUT ( VITAMIN/MIN +DHA PO) Take 1 tablet [...] 3:30 PM EST Office Visit [facility] HEMATOLOGY & ONCOLOGY [address] [facility] [address] [place] [address] Bre Crenshaw MD [address] [facility] [address] [place] [address] 12/31/2024 9:00 AM EDT Office Visit [facility] UROLOGY [address] [facility] [address] [place] [address] Annikashelley OraliaDWAYNE [address]60 [facility] [address] [place] [address] 05/12/2025 1:45 PM EDT Office Visit [facility] CARDIOLOGY [address] [facility] [address] [place] [address] Obed Woodard MD 1720 [facility] [address] [place], [place] [id number] documented as of this encounter Visit Diagnoses [...] Intravenous, As Needed, Line Care, Starting on Sun11/01/22 at 1441, Use for Implanted Ports.Indications:Encounter for care related to vascular access port,Malignant neoplasm of lower-outer quadrant of left breast of female, estrogen receptor positive Given 11/01/2022 3:45 PM EST 500 Units ondansetron (ZOFRAN) injection 8 mg 8 mg, Intravenous, Once, On Sun11/01/22 at 1502, For 1 dose, If multiple N/V medications ordered, use in the following order: Ondansetron, Prochlorperazine, Promethazine. Use PO unless patient refuses or patient unable to swallow. Indications:Malign ant neoplasm of lower-inner quadrant of left breast in female, estrogen receptor positive Given 11/01/2022 3:06 PM EST 8 mg sodium chloride 0.9 % bolus 1,000 mL 1,000 mL, Intravenous, at 1,000 mL/hr, Administer over 1 Hours, Once, On Sun11/01/22 at 1442, For 1 doseIndications:Malignant neoplasm of lower-inner quadrant of left breast in female, estrogen receptor positive New Bag 11/01/2022 2:45 PM EST 1,000 mL 999 mL/hr documented in this encounter Care Teams Manager Digital Relationship Specialty Start Date End Date Herbert Hair MD [facility] [address] [facility] [address] PCP - General Adolescent Medicine 03/03/22 documented as of this encounter
--- OUTSIDE RECORDS SUMMARY | 2024-08-17 15:52 | XMS_ITS | Encounter Summary ---
Author Organization [facility] Address [address] [place] [address] Care Team Providers Care Fish Net Maker Name Role Phone Herbert Hair MD Primary Care Provider [phone] Reason for Visit * Reason Onset Date Comments INGRID-CHEMO TREATMENT 10/13/2022 Encounter Details Date Type Department Care Team (Late st Contact Info) Description 10/13/2022 Telephone [facility] HEMATOLOGY & ONCOLOGY [address] [phone] Bre Crenshaw MD [address] [place] [phone] INGRID-CHEMO TREATMENT Social History Tobacco Use Types Packs/Day Years [...] Telephone Encounter - Yanet Preston RN - 10/13/2022 9:45 AM EST Patient is flushed and wondered if it could be related to dexamethasone. I talked with DANCE CHOREOGRAPHER and it can so advised patient. Also, told her that she can take benadryl and it may help. She is not uncomfortable but just noticed the flushing was evident. I told her to continue to monitor and if it worsens, or becomes painful, she can call back. She verbalized understanding. * Telephone Encounter - Kadi Reagan RegSched Rep - 10/13/2022 8:40 AM EST Caller: Leydi Brown Relationship: Self Best call back number: [phone] What was the call regarding: PT CALLED SHE WANTED TO MAKE SURE IF SHE HAD A SHOT OF STEROID WITH HER CHEMO TREATMENT YESTERDAY. HER FACE IS RED AND WARM TO THE TOUCH Do you require a callback: YES documented in this encounter Plan of Treatment Upcoming Encounters Date Type Department Care Team (Late st Contact Info) Description 09/18/2024 3:30 PM EST Office Visit [facility] HEMATOLOGY & ONCOLOGY [address] [facility] [address] [place] [phone] Bre Crenshaw MD [address] [facility] [address] [place] [address] 12/31/2024 9:00 AM EDT Office Visit [facility] UROLOGY [address] [facility] [address] [place] [phone] Oralia Saha APRN [address]60 [facility] [address] [place], [place] [id number] 05/12/2025 1:45 PM EDT Office Visit [facility] CARDIOLOGY [address] [facility] [address] [place] [phone] Obed Woodard MD [address] [facility] [address] [place] [id number] documented as of this encounter Visit Diagnoses Not on filedocumented in this encounter Additional Health Concerns Assessment Noted Time PHQ-2 Depression Total Score: 2 07/11/20 22 1:07 PM EDT documented as of this encounter Care Teams Fish Net Maker Relationship Specialty Start Date End Date Herbert Hair MD 1210 [facility] [address] [place] [address] PCP - General Adolescent Medicine 03/03/22 documented as of this encounter
--- OUTSIDE RECORDS SUMMARY | 2024-08-17 15:52 | XMS_ITS | Encounter Summary ---
Author Organization [facility] Address [address] [place] [address] Care Team Providers Care Cloth Spreader Name Role Phone Herbert Hair MD Primary Care Provider Reason for Visit * Reason Comments Breast Cancer * Auth/Cert (Routine) Specialty Diagnoses / Procedures [...] Expiration Date Visits Re quested Visits Authorized [id number] 1 1 Encounter Details Date Type Department Care Team (Late st Contact Info) Description 10/26/2022 8:30 AM EST Office Visit [facility] [address] [place] [address] Courtney Sams MD [address] [place] [address] Malignant neoplasm of lower-inner quadrant of left [...] Sign Reading Time Taken Comments Blood Pressure 135/90 10/26/2022 8:25 AM EST Pulse 89 10/26/2022 8:25 AM EST Temperature 36.4 ??C (97.5 ??F) 10/26/2022 8:25 AM ES T Respiratory Rate 16 10/26/2022 8:25 AM EST Oxygen Saturation 98% 10/26/2022 8:25 AM EST RA Inhaled Oxygen Concentration - - Weight 88.8 kg (195 lb 12.8 oz) 10/26/2022 8:25 AM EST Height 152.4 cm (5') 10/26/2022 8:25 AM EST Body Mass Index 38.24 10/26/2022 8:25 AM EST documented in this encounter Progress Notes * Courtney Sams MD - 10/26/2022 8:30 AM EST RE-EVALUATION PATIENT: Leydi Singh Coppaneri : 1975 DATE: 10/26/2022 DIAGNOSIS: Malignant neoplasm of left breast in female, estrogen receptor positive (HCC) - Stage IIA (cT2, cN1, cM0, G2, ER+, NJ+, HER2-) BRIEF HISTORY: ??Leydi Brown ??is a very pleasant 47 y.o. female?who underwent bilateral mastectomies for stage IIa invasive ductal carcinoma of the left breast. ??The right breast was negative. ??The left breast had a 2.4 x 1.8 x 1.8 cm grade 2 invasive ductal carcinoma in the lower outer quadrant. ??There was no DCIS. ??2/8 lymph nodes were positive for tumor. ??The largest depositwas 12 mm. ??There was lymphovascular invasion present. ??The tumor was ER/NJ positive HER2/margie negative. A PET scan was negative for metastatic disease. She received adjuvant chemotherapy with DD ACfollowed by Taxol by Dr. Bre Crenshaw. She is here to proceed with postoperative radiation. Followingradiation she plans to meet with Dr. Khanna regarding hysterectomy and bilateral oophorectomy. Has mild fatigue today but is overall doing well. No Known Allergies Review of Systems Constitutional: Positive for fatigue. HENT: Positive for nosebleeds (in last 2-3 weeks, minimal). Gastrointestinal: Positive for diarrhea. Psychiatric/Behavioral: Positive for sleep disturbance. The patient is nervous/anxious. All other systems reviewed and are negative. Objective VITAL SIGNS: Vitals: 10/26/22 0825 BP: 135/90 Pulse: 89 Resp: 16 Temp: 97.5 ??F (36.4 ??C) TempSrc: Temporal SpO2: 98% Comment: RA Weight: 88.8 kg (195 lb 12.8 oz) Height: 152.4 cm (60 ) PainSc: 0-No pain Karnofsky score: 90 {KPS: Physical Exam Vitals reviewed. Constitutional: Appearance: Normal appearance. Cardiovascular: Rate and Rhythm: Normal rate. Pulmonary: Effort: Pulmonary effort is normal. Neurological: Mental Status: She is alert. The breast exam reveals the breasts are surgically absent. She has mild erythema of the left chest wall inferiorly. She has no masses or suspicious lesions or axillary adenopathy bilaterally. The following portions of the patient's history were reviewed and updated as appropriate: allergies, current medications, past family history, past medical history, past social history, past surgicalhistory and problem list. Diagnoses and all orders for this visit: Malignant neoplasm of lower-inner quadrant of left breast in female, estrogen receptor positive (HCC) - , Urine - Urine, Clean Catch; Future - , Urine - Urine, Clean Catch IMPRESSION: Leydi Brown ??is a 47 y.o. female?who underwent bilateral mastectomies forstage IIa invasive ductal carcinoma of the left breast. ??The right breast was negative. ??The leftbreast had a 2.4 x 1.8 x 1.8 cm grade 2 invasive ductal carcinoma in the lower outer quadrant. ??There was no DCIS. ??2/8 lymph nodes were positive for tumor. ??The largest deposit was 12 mm. ??Therewas lymphovascular invasion present. ??The tumor was ER/NJ positive HER2/margie negative. A PET scan was negative for metastatic disease. She received adjuvant chemotherapy with DD AC followed by Taxol by Dr. Bre Crenshaw. She is here to proceed with postoperative radiation. RECOMMENDATIONS: I recommend postoperative radiation of 40.05 Wagner in 15 fractions to the left chest wall and regional lymphatics. We will not need a scar boost. The pros and cons, risks and benefitsof treatment were discussed and informed consent obtained. We will proceed with treatment planning today and start soon. Ms Brown does not plan to have reconstruction. Courtney Sams MD Total time of patient care on day of service including time prior to, face to face with patient, and following visit spent in reviewing records, lab results, imaging studies, discussion with patient,and documentation/charting was > 30 minutes. documented in this encounter Plan of Treatment Upcoming Encounters Date Type Department Care Team (Late st Contact Info) Description 09/18/2024 3:30 PM EST Office Visit [facility] [address] [facility] [address] [place] [address] Bre Crenshaw MD [address] [facility] [address] [place] [address] 12/31/2024 9:00 AM EDT Office Visit [facility] [address] [facility] [address] [place] [address] Oralia Saha DWAYNE [address] [facility] [address] [place] [address] 05/12/2025 1:45 PM EDT Office Visit [facility] [address] [place] [address] Oebd Woodard MD [address] [place] [address] documented as of this encounter Procedures Procedure Name Priority Date/Time Associated Diagnosis Comments , URINE STAT 10/26/2022 8:29 AM EST Malignant neoplasm of lower-inner quadrant of left breast in female, estrogen receptor positive documented in this encounter Results * , Urine - Urine, Clean Catch (10/26/2022 8:29 AM EST) HCG, Urine QL Negative Negative 10/26/2022 8:45 AM EST [facility] Urine Urine specimen obtained by clean catch procedure / Unknown Collection / Unknown 10/26/2022 8:29 AM EST 10/26/2022 8:31 AM EST Courtney Sams MD URINE ORDERABLES Final Result [facility]
[address] [place] [address], documented in this encounter Visit Diagnoses Diagnosis Malignant neoplasm of lower-inner quadrant of left breast in female, estrogen receptor positive- Primary documented in this encounter Care Teams Cloth Spreader Relationship Specialty Start Date End Date Herbert Hair MD [address] [place] [address] PCP - General Adolescent Medicine 03/03/22 documented as of this encounter
--- OUTSIDE RECORDS SUMMARY | 2024-08-17 15:52 | XMS_ITS | Encounter Summary ---
Author Organization [facility] Address [address] [place] [address] Care Team Providers Care Student Truck Driver Name Role Phone Herbert Hair MD Primary Care Provider [phone] Encounter Details Date Type Department Care Team (Latest Contact Info) Description 11/03/2022 8:59 AM EST - 11/03/2022 11:59 PM [facility] [address] [facility] [address] [place] [address] Discharge Disposition: Home or Self [...] daily 60 tablet 10/16/2022 01/03/20 23 Vit-Fe [id number] ( VITAMIN/MIN +DHA PO) Take 1 tablet [...] [facility] [address] [facility] [address] [place] [phone] Bre Crenshaw MD [address] [facility] [address] [place] [address] 12/31/2024 9:00 AM EDT Office Visit [facility] [address] [facility] [address] [place] [address] Oralia Saha APRN [address] [facility] [address] [place] [address] 05/12/2025 1:45 PM EDT Office Visit [facility] [address] [place] [address] Obed Woodard MD [address] [place] [address] documented as of this encounter Visit Diagnoses Not on filedocumented in this encounter Care Teams Student Truck Driver Relationship Specialty Start Date End Date Herbert Hair MD [address] [facility] [address] [place] [address] PCP - General Adolescent Medicine 03/03/22 documented as of this encounter
--- OUTSIDE RECORDS SUMMARY | 2024-08-17 15:52 | XMS_ITS | Encounter Summary ---
Author Organization [facility] Address [address] [place] [address] Care Team Providers Care Ground Layer Name Role Phone Herbert Hair MD Primary Care Provider Encounter Details Date Type Department Care Team (Latest Contact Info) Description 11/06/2022 8:59 AM EST - 11/06/2022 11:59 PM [facility] Hospital Encounter [facility] [address] [facility] [address] [place] [address] Discharge Disposition: Home or Self [...] daily 60 tablet 10/16/2022 01/03/20 23 Vit-Fe Nyxxglm-DV-RLT ( VITAMIN/MIN +DHA PO) Take 1 tablet [...] & ONCOLOGY [address] [facility] [address] [place] [phone] Bre Crenshaw MD [address] [facility] [address] [place] [address] 12/31/2024 9:00 AM EDT Office Visit [facility] [address] [facility] [address] [place] [address] Oralia Saha APRN [address] [facility] [address] [place] [address] 05/12/2025 1:45 PM EDT Office Visit [facility] [address] [place] [address] Obed Woodard MD [address] [place] [address] documented as of this encounter Visit Diagnoses Not on filedocumented in this encounter Care Teams Ground Layer Relationship Specialty Start Date End Date Herbert Hair MD [address] [facility] [address] [place] [address] PCP - General Adolescent Medicine 03/03/22 documented as of this encounter
--- OUTSIDE RECORDS SUMMARY | 2024-08-17 15:52 | XMS_ITS | Encounter Summary ---
Author Organization [facility] Address [address] [place] [address] Care Team Providers Care Manufacturing Production Manager Name Role Phone Herbert Hair MD Primary Care Provider [phone] Encounter Details Date Type Department Care Team (Late st Contact Info) Description 11/07/2022 Documentation [facility] [address] [place] [address] [address] [place] [address] Social History [...] Progress Notes * Halie Jimenez RD - 11/07/2022 2:04 PM EST ONC Nutrition ?? 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 Surgery:??Bilateral mastectomy??(06/13/22)?Pathology showed a 2.4 cm IDC, intermediate grade. ??2 LN involved ?? Chemotherapy:??OP BREAST AC DD DOXOrubicin / Cyclophosphamide??- every 14 days x 4 cycles followed by??OP BREAST - completed 08/31/22 ?? DD PACLitaxel??- every 14 days x 4 cycles??- treatment start date 09/14/22 - completed 10/26/22 ?? Radiation:??40.05 Wagner in 15 fractions to the left chest wall and regional lymphatics??/ patient has completed 2/15 fractions ?? Weight 196.8 lbs / 5 lbs weight gain from July Follow up with patient as she begins radiation. Patient states that she continues to struggle with fatigue from chemo. Discussed that fatigue is the one nutritional side effect of radiation that she may continue to experience with radiation treatment plan. Discussed tips for management including adequate hydration, higher protein intake and exercise. Will follow as indicated. documented in this encounter Plan of Treatment Upcoming Encounters Date Type Department Care Team (Late st Contact Info) Description 09/18/2024 3:30 PM EST Office Visit [facility] & [facility] [address] [facility] [address] [place] [address] Bre Crenshaw MD [address] [facility] [address] [place] [address] 12/31/2024 9:00 AM EDT Office Visit [facility] [address] [facility] [address] [place] [address] Oralia Saha ADMITTING SUPERVISOR [address] [facility] [address] [place] [id number] 05/12/2025 1:45 PM EDT Office Visit [facility] [address] [place] [address] Obed Woodard MD [address] [facility] [address] [place], [place] [id number] documented as of this encounter Visit Diagnoses Not on filedocumented in this encounter Care Teams Manufacturing Production Manager Relationship Specialty Start Date End Date Herbert Hair MD [address] [facility] [address] [place] [address] PCP - General Adolescent Medicine 03/03/22 documented as of this encounter
--- OUTSIDE RECORDS SUMMARY | 2024-08-17 15:52 | XMS_ITS | Encounter Summary ---
Author Organization [facility] Address [address] [place] [address] Care Team Providers Care Wire Annealer Name Role Phone Herbert Hair MD Primary Care Provider [phone] Reason for Visit * Reason Onset Date Comments INGRID - TRIAGE 11/01/2022 Encounter Details Date Type Department Care Team (Late st Contact Info) Description 11/01/2022 Telephone [facility] & [facility]COL[facility]Y [address] [address] Bre Crenshaw MD [address] [place] [phone] INGRID - TRIAGE Social History Tobacco Use Types Packs/Day Years [...] Telephone Encounter - Yanet Preston RN - 11/01/2022 9:46 AM EST I called patient back and she said that she is feeling achy, has had bouts of diarrhea and feels like her heart is racing. She did get fluids last treatment and thought that was helpful. I talked with Bria Jarvis APRN and she said to schedule patient for IV fluids today. Infusion has a spot open at 3pm. I called patient back and gave her the time of infusion and I also advised her about how to take immodium for the diarrhea. She verbalized understanding. * Telephone Encounter - Roya Blank PCT - 11/01/2022 8:35 AM EST Pt is calling because she believes she needs fluids again, she is still feeling unwell after her most recent chemo treatment. Please call her back at [phone] documented in this encounter Plan of Treatment Upcoming Encounters Date Type Department Care Team (Late st Contact Info) Description 09/18/2024 3:30 PM EST Office Visit [facility]COLOGY [address] [phone] Bre Crenshaw MD [address]00 [facility] [address] [place] [address] 12/31/2024 9:00 AM EDT Office Visit [facility] [address] [facility] [address] [place] [phone] Oralia Saha APRN [address] [facility] [address] [place] [phone] 05/12/2025 1:45 PM EDT Office Visit [facility] CARDI[facility] [address] [place] [address] Obed Woodard MD [address] [facility] [address] [place] [address] documented as of this encounter Visit Diagnoses Not on filedocumented in this encounter Care Teams Wire Annealer Relationship Specialty Start Date End Date Herbert Hair MD [address] [facility] [address] [place] [address] PCP - General Adolescent Medicine 03/03/22 documented as of this encounter
--- OUTSIDE RECORDS SUMMARY | 2024-08-17 15:52 | XMS_ITS | Encounter Summary ---
Author Organization [facility] Address [address] [place] [address] Care Team Providers Care Steel Wheel Engraver Name Role Phone Herbert Hair MD Primary Care Provider Encounter Details Date Type Department Care Team (Latest Contact Info) Description 11/07/2022 8:39 AM EST - 11/07/2022 11:59 PM [facility] Hospital Encounter [facility] [address] [facility] [address] [place] [address] Discharge Disposition: Home or Self [...] - Inhaled Oxygen Concentration - - Weight 89.3 kg (196 lb 12.8 oz) 11/07/2022 9:00 AM EST Height - - Body Mass Index 38.43 11/01/2022 2:36 PM EST documented in this [...] daily 60 tablet 10/16/2022 01/03/20 23 Vit-Fe Hqigtut-HV-CSV ( VITAMIN/MIN +DHA PO) Take 1 tablet [...] Description 09/18/2024 3:30 PM EST Office Visit [facility] [address] [facility] [address] [place] [address] Bre Crenshaw MD [address] [facility] [address] [place] [address] 12/31/2024 9:00 AM EDT Office Visit [facility] [address] [facility] [address] [place] [address] Oralia Saha APRN [address] [facility] [address] [place] [address] 05/12/2025 1:45 PM EDT Office Visit [facility] [address] [place] [address] Obed Woodard MD [address] [facility] [address] [place] [address] documented as of this encounter Visit Diagnoses Not on filedocumented in this encounter Care Teams Steel Wheel Engraver Relationship Specialty Start Date End Date Herbert Hair MD [address] [facility] [address] [place] [address] PCP - General Adolescent Medicine 03/03/22 documented as of this encounter
--- OUTSIDE RECORDS SUMMARY | 2024-08-17 15:52 | XMS_ITS | Encounter Summary ---
Author Organization [facility] Address [address] [place] [address] Care Team Providers Care Film Projector Operator Name Role Phone Herbert Hair MD Primary Care Provider [phone] Encounter Details Date Type Department Care Team (Late st Contact Info) Description 10/26/2022 10:30 AM EST Office Visit [facility] HEMATOLOGY & ONCOLOGY 1700 [facility] [address] [place] [phone] Hilda Jarvis, AIRLINE PILOT 1700 [facility] [address] [place] [address] Malignant neoplasm of lower-outer quadrant of left [...] Time Taken Comments Blood Pressure 135/90 10/26/2022 10:07 AM EST Pulse 89 10/26/2022 10:07 AM EST Temperature 36.4 ??C (97.5 ??F) 10/26/2022 10:[address] Respiratory Rate 16 10/26/2022 10:07 AM EST Oxygen Saturation 98% 10/26/2022 10:07 AM EST Inhaled Oxygen Concentration - - Weight 88.9 kg (196 lb) 10/26/2022 10:07 AM EST Height 152.4 cm (5') 10/26/2022 10:07 AM EST Body Mass Index 38.28 10/26/2022 10:07 AM EST documented in this encounter Progress Notes * Hilda Jarvis, AIRLINE PILOT - 10/26/2022 10:30 AM EST PROBLEM LIST: 1. [id number] ER+ (90%), WV+ (10%), Her2 negative (1+) [...] Leydi Brown returns for follow-up. She is completed 3 cycles of dose dense Taxol. With her last cycle she had significant leg and hip pain. She took Grace 5 mg/325 mg approximately every 6 hours along with Advil that did not control her pain. She does not feel like she can complete her last cycle of dose dense Taxol without increasing her pain medication. She did require IV fluids following her treatment due to heart palpitations and dehydration. She saw Dr. Sams today regarding future radiation treatment. She has a pruritic rash on bilateral forearms. She denies any peripheral neuropathy. She does have fatigue. Objective BP 135/90 Pulse 89 Temp 97.5 ??F (36.4 ??C) Resp 16 Ht 152.4 cm (60 ) Wt 88.9 kg (196 lb) SpO2 98% BMI 38.28 kg/m?? Vitals: 10/26/22 1007 PainSc: 0-No pain ECOG score: 0 General: well appearing female in no acute distress Neuro: alert and oriented HEENT: sclera anicteric, oropharynx clear Cardiovascular: Regular rate and rhythm no murmurs Lungs: Clear to auscultation bilaterally abdomen: soft, nontender, nondistended. No palpable organomegaly Extremeties: no lower extremity edema, left upper extremity lymphedema noted and lymphedema in leftchest wall Skin: no lesions, bruising, or petechiae. Bilateral papular rash on forearms Psych: mood and affect appropriate I have reexamined the patient and the results are consistent with the previously documented exam. Hilda Jarvis, DWAYNE RECENT LABS: Lab Results Component Value Date WBC 5.13 10/26/2022 HGB 10.7 (L) 10/26/2022 HCT 33.0 (L) 10/26/2022 MCV 103.4 (H) 10/26/2022 PLT 150 10/26/2022 Lab Results Component Value Date GLUCOSE 133 (H) 10/26/2022 BUN 12 10/26/2022 CREATININE 0.75 10/26/2022 BCR 16.0 10/26/2022 K 3.4 (L) 10/26/2022 CO2 26.0 10/26/2022 CALCIUM 9.3 10/26/2022 ALBUMIN 4.1 10/26/2022 AST 18 10/26/2022 ALT 29 10/26/2022 Results for orders placed during the hospital encounter of 10/06/22 Adult Transthoracic Echo Limited W/ Cont if Necessary Per Protocol Interpretation Summary ??? Left ventricular systolic function is normal. Calculated left ventricular EF = 61% Left ventricular ejection fraction appears to be 61 - 65%. ??? Normal global longitudinal LV strain (GLS) = -19.0%. ??? There is no evidence of pericardial effusion ASSESSMENT AND PLAN: Leydi Brown is a 47 y.o. female with a T2 N1 M0 ER positive WV positive HER2 negative invasive carcinoma of the left breast. She has completed 4 cycles of dose dense AC. We will proceed with cycle 4 of dose dense Taxol today. She has not had any peripheral neuropathy symptoms so far. Bone pain related to Taxol with Neulasta: She continues to have significant bone pain despite Norcoand tramadol. I will increase her Grace to 7.5 mg 1 tablet every 6 hours for 3 days as needed for pain. We will not be prescribing any further pain medication for her after this timeframe. Chemotherapy-induced nausea: Continue Zofran and Compazine as needed. Anxiety: Continue 30 mg of buspirone as needed in the days prior to chemotherapy. Cardiac risk: Seen by cardiology. She continues on propranolol for blood pressure. Recent repeat echocardiogram is unremarkable. Lymphedema left upper extremity: Continue working with occupational therapy and wearing compressionsleeve. Hypokalemia: Potassium 3.4 today. Continue daily potassium supplement. She is going to meet with Dr. Khanna in November and is interested in having an oophorectomy and hysterectomy shortly after completing radiation treatment. If so, we will plan to start endocrine therapy with an aromatase inhibitor following oophorectomy. She is also a candidate for abemaciclib. Follow-up in 6 weeks. Hilda Jarvis APRN [facility] Hematology and Oncology 10/26/2022 and continue CC: documented in this encounter Plan of Treatment Upcoming Encounters Date Type Department Care Team (Late st Contact Info) Description 09/18/2024 3:30 PM EST Office Visit [facility] HEMATOLOGY & ONCOLOGY 1700 [facility] [address] [place] [phone] Bre Crenshaw MD 1700 [facility] [address] [place] [address] 12/31/2024 9:00 AM EDT Office Visit [facility] UROLOGY [address] [facility] [address] [place], [place] [phone] Oralia Saha APRN [address]60 [facility] [address] [place], [place] [id number] 05/12/2025 1:45 PM EDT Office Visit [facility] CARDIOLOGY [address] [facility] [address] [place] [address] Obed Woodard MD [address] [facility] [address] [place] [address] documented as of this encounter Results * (ABNORMAL) Comprehensive Metabolic Panel (12/07/2022 12:24 PM EST) Glucose 116(H) 65 - 99 mg/dL 12/07/2022 1:18 PM EST [facility] BUN 15 6 - 20 mg/dL 12/07/2022 1:18 PM EST [facility] Creatinine 0.73 0.57 - 1.00 mg/dL 12/07/2022 1:18 PM EST [facility] Sodium 140 136 - 145 mmol/L 12/07/2022 1:18 PM EST [facility] Potassium 3.7 3.5 - 5.2 mmol/L 12/07/2022 1:18 PM EST [facility] Comment:Slight hemolysis det ected by analyzer. Results may be affected. Chloride 103 98 - 107 mmol/L 12/07/2022 1:18 PM EST [facility] CO2 26.0 22.0 - 29.0 mmol/L 12/07/2022 1:18 PM EST [facility] Calcium 8.8 8.6 - 10.5 mg/dL 12/07/2022 1:18 PM EST [facility] Total Protein 6.7 6.0 - 8.5 g/dL 12/07/2022 1:18 PM EST [facility] Albumin 4.3 3.5 - 5.2 g/dL 12/07/2022 1:18 PM EST [facility] ALT (SGPT) 27 1 - 33 U/L 12/07/2022 1:18 PM EST [facility] AST (SGOT) 23 1 - 32 U/L 12/07/2022 1:18 PM EST [facility] Alkaline Phosphatase 77 39 - 117 U/L 12/07/2022 1:18 PM EST [facility] Total Bilirubin 0.2 0.0 - 1.2 mg/dL 12/07/2022 1:18 PM EST [facility] Globulin 2.4 gm/dL 12/07/2022 1:18 PM EST [facility] Comment:Calculated Result A/G Ratio 1.8 g/dL 12/07/2022 1:18 PM EST [facility] BUN/Creatinine Ratio 20.5 7.0 - 25.0 12/07/2022 1:18 PM EST [facility] Anion Gap 11.0 5.0 - 15.0 mmol/L 12/07/2022 1:18 PM EST [facility] eGFR 101.6 >60.0 mL/min/1.7 3 12/07/2022 1:18 PM EST [facility] Blood Port / Unknown 12/07/2022 12 :24 PM EST 12/07/2022 12:41 PM EST Narrative [facility] - 12/07/2022 1:18 PM EST GFR Normal >60 Chronic Kidney Disease <60 Kidney Failure <15 Hilda Jarvis AIRLINE PILOT LAB BLOOD ORDERABLES Final Result [facility]
[address] [place] [address], documented in this encounter Visit Diagnoses Diagnosis Malignant neoplasm of lower-outer quadrant of left breast of female, estrogen receptor positive- Primary documented in this encounter Care Teams Film Projector Operator Relationship Specialty Start Date End Date Herbert Hair MD [address] [place] [address] [address] [place] [address] PCP - General Adolescent Medicine 03/03/22 documented as of this encounter
--- OUTSIDE RECORDS SUMMARY | 2024-08-17 15:52 | XMS_ITS | Encounter Summary ---
Author Organization [facility] Address [address] [place] [address] Care Team Providers Care Compressor Technician Name Role Phone Herbert Hair MD Primary Care Provider [phone] Reason for Visit * Reason Onset Date Comments INGRID-TRIAGE 10/17/2022 Encounter Details Date Type Department Care Team (Late st Contact Info) Description 10/17/2022 Telephone [facility] HEMATOLOGY & ONCOLOGY [address] [address] Bre Crenshaw MD [address] [place] [phone] INGRID-TRIAGE Social History Tobacco Use Types Packs/Day Years [...] Telephone Encounter - Yanet Preston RN - 10/17/2022 10:40 AM EST I talked with patient and she is feeling like her heart is racing and has been sweating a lot. She has had some diarrhea and pain. She is not feeling well. Denies fevers and denies vomiting. She saidshe has been trying to take in good fluids and eating. She has used norco to help her rest and she only has three left and is worried about that. I talked with Bre Crenshaw md and we will give patientfluids today. She would like patient to use tylenol 1000mg four times in the next day and then to call me and let me know how she is doing. She still has tramadol left and I asked her to try and takeone at night. Patient verbalized understanding. * Telephone Encounter - Floresita Donaldson - 10/17/2022 8:36 AM EST Patient called she is having sweats, been in a chair for 4 days, when she gets up almost everytime she feels like she is going to pass out, and heart is racing. Please call. documented in this encounter Plan of Treatment Upcoming Encounters Date Type Department Care Team (Late st Contact Info) Description 09/18/2024 3:30 PM EST Office Visit [facility] HEMATOLOGY & ONCOLOGY [address] [facility] [address] [place] [address] Bre Crenshaw MD [address]00 [facility] [address] [place] [address] 12/31/2024 9:00 AM EDT Office Visit [facility] UROLOGY [address] [facility] [address] [place], [place] [phone] Oralia Saha APRN [address]60 [facility] [address] [place], [place] [phone] 05/12/2025 1:45 PM EDT Office Visit [facility] CARDIOLOGY [address] [facility] [address] [place] [address] Obed Woodard MD [address]20 [facility] [address] [place] [phone] documented as of this encounter Visit Diagnoses Not on filedocumented in this encounter Additional Health Concerns Assessment Noted Time PHQ-2 Depression Total Score: 2 07/11/20 22 1:07 PM EDT documented as of this encounter Care Teams Compressor Technician Relationship Specialty Start Date End Date Herbert Hair MD [address] [facility] [address] [place] [address] PCP - General Adolescent Medicine 03/03/22 documented as of this encounter
--- OUTSIDE RECORDS SUMMARY | 2024-08-17 15:52 | XMS_ITS | Encounter Summary ---
Author Organization [facility] Address [address] [place] [address] Care Team Providers Care Cupola Tapper Helper Name Role Phone Herbert Hair MD Primary Care Provider + [phone] Reason for Visit * Auth/Cert (Routine) Specialty [...] Expiration Date Visits Re quested Visits Authorized [id number] 1 1 Encounter Details Date Type Department Care Team (Latest Contact Info) Description 10/26/2022 5:05 AM EST - 10/26/2022 11:59 PM EST Hospital Encounter [facility] [address] [place] [phone] Discharge Disposition: Home or Self Care Social [...] daily 60 tablet 10/16/2022 01/03/20 23 Vit-Fe [id number] ( VITAMIN/MIN +DHA PO) Take 1 tablet [...] Description 09/18/2024 3:30 PM EST Office Visit [facility] HEMATOLOGY & ONCOLOGY [address] [facility] [address] [place] [address] Bre Crenshaw MD [address] [facility] [address] [place] [phone] 12/31/2024 9:00 AM EDT Office Visit [facility] UROLOGY [address] [facility] [address] [place] [phone] Annikashelley OraliaDWAYNE [address]60 [facility] [address] [place] [address] 05/12/2025 1:45 PM EDT Office Visit [facility] CARDIOLOGY [address] [facility] [address] [place] [phone] Obed Woodard MD [address] [facility] [address] [place] [address] documented as of this encounter Visit Diagnoses Not on filedocumented in this encounter Care Teams Cupola Tapper Helper Relationship Specialty Start Date End Date Herbert Hair MD [address] [facility] [address] [place] [address] PCP - General Adolescent Medicine 03/03/22 documented as of this encounter
--- OUTSIDE RECORDS SUMMARY | 2024-08-17 15:52 | XMS_ITS | Encounter Summary ---
Author Organization [facility] Address [address] [place] [address] Care Team Providers Care Assistant Import Manager Name Role Phone Herbert Hair MD Primary Care Provider [phone] Encounter Details Date Type Department Care Team (Late st Contact Info) Description 10/12/2022 8:30 AM EST Office Visit [facility] HEMATOLOGY & ONCOLOGY [address] [facility] [address] [place] [phone] Bre Crenshaw MD [address] [facility] [address] [place] [phone] Malignant neoplasm of upper-inner quadrant of left breast [...] Sign Reading Time Taken Comments Blood Pressure 130/88 10/12/2022 8:23 AM EST Pulse 92 10/12/2022 8:23 AM EST Temperature 36.4 ??C (97.5 ??F) 10/12/2022 8:23 AM ES T Respiratory Rate 16 10/12/2022 8:23 AM EST Oxygen Saturation 99% 10/12/2022 8:23 AM EST Inhaled Oxygen Concentration - - Weight 88.5 kg (195 lb) 10/12/2022 8:23 AM EST Height 154.9 cm (5' 0.98 ) 10/12/2022 8:23 AM ES T Body Mass Index 36.86 10/12/2022 8:23 AM EST documented in this encounter Progress Notes * Bre Crenshaw MD - 10/12/2022 8:30 AM EST PROBLEM LIST: 1. 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 She says she still had quite a bit of leg and hip painwith this treatment. She took 2 of the tramadol along with ibuprofen and it just barely touched it.There was 1 night where she did not sleep at all. The pain was bad for about 4 days but she still had some aching until last Sunday. She is not having any neuropathy symptoms. she is getting tired. Objective BP 130/88 Pulse 92 Temp 97.5 ??F (36.4 ??C) (Infrared) Resp 16 Ht 154.9 cm (60.98 ) Wt 88.5 kg (195 lb) SpO2 99% BMI 36.86 kg/m?? Vitals: 10/12/22 0823 PainSc: 0-No pain ECOG score: 0 General: well appearing female in no acute distress Neuro: alert and oriented HEENT: sclera anicteric, oropharynx clear Cardiovascular: Regular rate and rhythm no murmurs Lungs: Clear to auscultation bilaterally abdomen: soft, nontender, nondistended. No palpable organomegaly Extremeties: no lower extremity edema, left upper extremity lymphedema noted and lymphedema in leftchest wall Skin: no rashes, lesions, bruising, or petechiae. Psych: mood and affect appropriate I have reexamined the patient and the results are consistent with the previously documented exam. Bre Crenshaw MD RECENT LABS: Lab Results Component Value Date WBC 7.64 10/12/2022 HGB 11.2 (L) 10/12/2022 HCT 33.8 (L) 10/12/2022 MCV 101.5 (H) 10/12/2022 PLT 207 10/12/2022 Lab Results Component Value Date GLUCOSE 164 (H) 10/12/2022 BUN 12 10/12/2022 CREATININE 0.90 10/12/2022 BCR 13.3 10/12/2022 K 3.4 (L) 10/12/2022 CO2 27.0 10/12/2022 CALCIUM 9.4 10/12/2022 ALBUMIN 4.2 10/12/2022 AST 21 10/12/2022 ALT 36 (H) 10/12/2022 Results for orders placed during the hospital [...] with a T2 N1 M0 ER positive OR positive HER2 negative invasive carcinoma of the left breast. She has completed 4 cycles of dose dense AC. We will proceed with cycle 3 of dose dense Taxol today. She has not had any peripheral neuropathy symptoms so far. Bone pain related to Taxol with Neulasta: She continues to have fairly significant pain despite using tramadol. We discussed the option of trying Wellford for the pain. There is a small chance of long-term issues related to narcotic use which she is aware of. I will give her a prescription for 15 Wellford 5 to use as needed. She says she would like to have the prescription but is not sure if she will use it. Chemotherapy-induced nausea: Continue Zofran and Compazine as needed. Anxiety: Continue 30 mg of buspirone as needed in the days prior to chemotherapy. Cardiac risk: Seen by cardiology. She continues on propranolol for blood pressure. Recent repeat echocardiogram is unremarkable. Lymphedema left upper extremity: Continue working with occupational therapy and wearing compressionsleeve. Hypokalemia: Improved today. Continue daily potassium supplement. Follow-up in 2 weeks. At that point she should be scheduled for follow-up with Dr. Sams to discussbeginning radiation treatment. She is going to meet with Dr. Khanna in November and is interested inhaving a oophorectomy and hysterectomy shortly after completing radiation treatment. If so, we willplan to start endocrine therapy with an aromatase inhibitor following oophorectomy. She is also a candidate for abemaciclib. Bre Crenshaw MD [facility] Hematology and Oncology 10/12/2022 and continue CC: documented in this encounter Plan of Treatment Upcoming Encounters Date Type Department Care Team (Late st Contact Info) Description 09/18/2024 3:30 PM EST Office Visit [facility] HEMATOLOGY & ONCOLOGY [address] [address] Bre Crenshaw MD [address]00 [facility] [address] [place] [address] 12/31/2024 9:00 AM EDT Office Visit [facility] UROLOGY [address] [facility] [address] [place] [address] Oralia Saha APRN [address]60 [facility] [address] [place] [address] 05/12/2025 1:45 PM EDT Office Visit [facility] CARDIOLOGY [address]20 [facility] [address] [place] [address] Obed Woodard MD [address] [facility] [address] [place] [address] documented as of this encounter Results * (ABNORMAL) Comprehensive metabolic panel (10/26/2022 7:45 AM EST) Glucose 133(H) 65 - 99 mg/dL 10/26/2022 8:25 AM EST [facility] BUN 12 6 - 20 mg/dL 10/26/2022 8:25 AM EST [facility] Creatinine 0.75 0.57 - 1.00 mg/dL 10/26/2022 8:25 AM EST [facility] Sodium 140 136 - 145 mmol/L 10/26/2022 8:25 AM EST [facility] Potassium 3.4(L) 3.5 - 5.2 mmol/L 10/26/2022 8:25 AM EST [facility] Chloride 103 98 - 107 mmol/L 10/26/2022 8:25 AM EST [facility] CO2 26.0 22.0 - 29.0 mmol/L 10/26/2022 8:25 AM EST [facility] Calcium 9.3 8.6 - 10.5 mg/dL 10/26/2022 8:25 AM EST [facility] Total Protein 6.3 6.0 - 8.5 g/dL 10/26/2022 8:25 AM EST [facility] Albumin 4.1 3.5 - 5.2 g/dL 10/26/2022 8:25 AM EST [facility] ALT (SGPT) 29 1 - 33 U/L 10/26/2022 8:25 AM EST [facility] AST (SGOT) 18 1 - 32 U/L 10/26/2022 8:25 AM EST [facility] Alkaline Phosphatase 93 39 - 117 U/L 10/26/2022 8:25 AM EST [facility] Total Bilirubin 0.3 0.0 - 1.2 mg/dL 10/26/2022 8:25 AM EST [facility] Globulin 2.2 gm/dL 10/26/2022 8:25 AM EST [facility] Comment:Calculated Result A/G Ratio 1.9 g/dL 10/26/2022 8:25 AM EST [facility] BUN/Creatinine Ratio 16.0 7.0 - 25.0 10/26/2022 8:25 AM EST [facility] Anion Gap 11.0 5.0 - 15.0 mmol/L 10/26/2022 8:25 AM EST [facility] eGFR 98.3 >60.0 mL/min/1.7 3 10/26/2022 8:25 AM [facility] Blood Port / Unknown 10/26/2022 7: 45 AM EST 10/26/2022 8:01 AM EST [facility] - 10/26/2022 8:25 AM EST GFR Normal >60 Chronic Kidney Disease <60 Kidney Failure <15 Bre Crenshaw MD LAB BLOOD ORDERABLES Final Resul t [facility]
[address] [place] [address], documented in this encounter Visit Diagnoses Diagnosis Malignant neoplasm of upper-inner quadrant of left breast in female, estrogen receptor positive- Primary documented in this encounter Additional Health Concerns Assessment Noted Time PHQ-2 Depression Total Score: 2 07/11/20 22 1:07 PM EDT documented as of this encounter Care Teams Assistant Import Manager Relationship Specialty Start Date End Date Herbert Hair MD [address] [place] [facility] [address] [facility] [place] [address] PCP - General Adolescent Medicine 03/03/22 documented as of this encounter
--- OUTSIDE RECORDS SUMMARY | 2024-08-17 15:52 | XMS_ITS | Encounter Summary ---
Author Organization [facility] Address [address] [place] [address] Care Team Providers Care Dog Sitter Name Role Phone Herbert Hair MD Primary Care Provider Encounter Details Date Type Department Care Team (Latest Contact Info) Description 11/09/2022 9:04 AM EST - 11/09/2022 11:59 PM [facility] Hospital Encounter [facility] [address] [facility] [address] [place] [address] Discharge Disposition: Home or Self [...] daily 60 tablet 10/16/2022 01/03/20 23 Vit-Fe [id number] ( VITAMIN/MIN +DHA PO) Take 1 tablet [...] [facility] 1700 [facility] [address] [place] [phone] Bre Crenshaw MD 1700 [facility] [address] [place] [address] 12/31/2024 9:00 AM EDT Office Visit [facility] UROLOGY [address] [facility] [address] [place] [address] Oralia Saha APRN [address]60 [facility] [address] [place] [address] 05/12/2025 1:45 PM EDT Office Visit [facility] CARDIOLOGY [address] [place] [address] Obed Woodard MD [address] [facility] [address] [place] [address] documented as of this encounter Visit Diagnoses Not on filedocumented in this encounter Care Teams Dog Sitter Relationship Specialty Start Date End Date Herbert Hair MD 1210 [facility] [address] [place] [address] PCP - General Adolescent Medicine 03/03/22 documented as of this encounter
--- OUTSIDE RECORDS SUMMARY | 2024-08-17 15:52 | XMS_ITS | Encounter Summary ---
Author Organization [facility] Address [address] [place] [address] Care Team Providers Care Manager Field Sales Name Role Phone Herbert Hair MD Primary Care Provider + [phone] Reason for Visit * Episode Based Medications (Routine) - Closed Specialty Diagnoses / Procedures Referred By Nasrin t Referred To Contact Diagnoses Malignant neoplasm of upper-inner quadrant of left breast in female, estrogen receptor positive Procedures ID DEXAMETHASONE SODIUM PHOS ID PACLITAXEL INJECTION ID INJECTION, UDENYCA 0.5 MG ID INJ PEGFILGRAST EX BIO 0.5MG Bre Crenshaw MD [address] [address] Phone: tel: fax: Referral ID Status Reason Start Date Expiration Date Visits Re quested Visits Authorized [id number] Closed 07/13/2022 11/30/2022 1 1 Encounter Details Date Type Department Care Team (Latest Contact Info) Description 10/12/2022 7:19 AM EST - 10/12/2022 11:59 PM EST Hospital Encounter [facility] [address] [phone] Malignant neoplasm of upper-inner quadrant of left [...] Sign Reading Time Taken Comments Blood Pressure 140/95 10/12/2022 11:25 AM EST Pulse 82 10/12/2022 11:25 AM EST Temperature - - Respiratory Rate - - Oxygen Saturation - - Inhaled Oxygen Concentration - - Weight - - Height - - Body Mass Index - - documented in this encounter Medications at Time [...] 60 tablet 1 07/27/2022 10/16/19 23 Vit-Fe [id number] ( VITAMIN/MIN +DHA PO) Take 1 tablet [...] [facility] [address] [facility] [address] [place] [address] Bre Crenshaw MD [address] [facility] [address] [place] [address] 12/31/2024 9:00 AM EDT Office Visit [facility] [address] [facility] [address] [place], [place] [phone] Oralia Saha APRN [address] [facility] [address] [place], [place] [id number] 05/12/2025 1:45 PM EDT Office Visit [facility] [address] [facility] [address] [place] [address] Obed Woodard MD [address] [facility] [address] [place], [place] [id number] documented as of this encounter Procedures Procedure Name Priority Date/Time Associated Diagnosis Comments CBC WITH AUTO DIFFERENTIAL Routine 10/12/2022 7:20 AM EST Malignant neoplasm of upper-inner quadrant of left breast in female, estrogen receptor positive CBC AND DIFFERENTIAL Routine 10/12/2022 7:20 AM EST Malignant neoplasm of upper-inner quadrant of left breast in female, estrogen receptor positive COMPREHENSIVE METABOLIC PANEL Routine 10/12/2022 7:20 AM EST Malignant neoplasm of upper-inner quadrant of left breast in female, estrogen receptor positive documented in this encounter Results * (ABNORMAL) CBC Auto Differential (10/12/2022 7:20 AM EST) WBC 7.64 3.40 - 10.80 10*3/mm3 10/12/2022 7:48 AM [facility] RBC 3.33(L) 3.77 - 5.28 10*6/mm3 10/12/2022 7:48 AM [facility] Hemoglobin 11.2(L) 12.0 - 15.9 g/dL 10/12/2022 7:48 AM [facility] Hematocrit 33.8(L) 34.0 - 46.6 % 10/12/2022 7:48 AM [facility] MCV 101.5(H) 79.0 - 97.0 fL 10/12/2022 7:48 AM [facility] MCH 33.6(H) 26.6 - 33.0 pg 10/12/2022 7:48 AM [facility] MCHC 33.1 31.5 - 35.7 g/dL 10/12/2022 7:48 AM [facility] RDW 16.8(H) 12.3 - 15.4 % 10/12/2022 7:48 AM [facility] RDW-SD 62.9(H) 37.0 - 54.0 fl 10/12/2022 7:48 AM [facility] MPV 11.3 6.0 - 12.0 fL 10/12/2022 7:48 AM [facility] Platelets 207 140 - 450 10*3/mm3 10/12/2022 7:48 AM [facility] Neutrophil % 67.3 42.7 - 76.0 % 10/12/2022 7:48 AM [facility] Lymphocyte % 19.2(L) 19.6 - 45.3 % 10/12/2022 7:48 AM [facility] Monocyte % 7.6 5.0 - 12.0 % 10/12/2022 7:48 AM [facility] Eosinophil % 4.1 0.3 - 6.2 % 10/12/2022 7:48 AM EST [facility] Basophil % 0.4 0.0 - 1.5 % 10/12/2022 7:48 AM EST [facility] Immature Grans % 1.4(H) 0.0 - 0.5 % 10/12/2022 7:48 AM EST [facility] Neutrophils, Absolute 5.14 1.70 - 7.00 10*3/mm3 10/12/2022 7:48 AM EST [facility] Lymphocytes, Absolute 1.47 0.70 - 3.10 10*3/mm3 10/12/2022 7:48 AM EST [facility] Monocytes, Absolute 0.58 0.10 - 0.90 10*3/mm3 10/12/2022 7:48 AM EST [facility] Eosinophils, Absolute 0.31 0.00 - 0.40 10*3/mm3 10/12/2022 7:48 AM EST [facility] Basophils, Absolute 0.03 0.00 - 0.20 10*3/mm3 10/12/2022 7:48 AM EST [facility] Immature Grans, Absolute 0.11(H) 0.00 - 0.05 10*3/mm3 10/12/2022 7:48 AM EST [facility] Blood Port / Unknown 10/12/2022 7: 20 AM EST 10/12/2022 7:37 AM EST Hilda Jarvis [employer] LAB BLOOD ORDERABLES Final Result [facility]
[address] [place] [address], * (ABNORMAL) Comprehensive metabolic panel (10/12/2022 7:20 AM EST) Glucose 164(H) 65 - 99 mg/dL 10/12/2022 7:55 AM EST [facility] BUN 12 6 - 20 mg/dL 10/12/2022 7:55 AM [facility] Creatinine 0.90 0.57 - 1.00 mg/dL 10/12/2022 7:55 AM [facility] Sodium 136 136 - 145 mmol/L 10/12/2022 7:55 AM [facility] Potassium 3.4(L) 3.5 - 5.2 mmol/L 10/12/2022 7:55 AM [facility] Chloride 99 98 - 107 mmol/L 10/12/2022 7:55 AM [facility] CO2 27.0 22.0 - 29.0 mmol/L 10/12/2022 7:55 AM [facility] Calcium 9.4 8.6 - 10.5 mg/dL 10/12/2022 7:55 AM [facility] Total Protein 6.7 6.0 - 8.5 g/dL 10/12/2022 7:55 AM [facility] Albumin 4.2 3.5 - 5.2 g/dL 10/12/2022 7:55 AM [facility] ALT (SGPT) 36(H) 1 - 33 U/L 10/12/2022 7:55 AM [facility] AST (SGOT) 21 1 - 32 U/L 10/12/2022 7:55 AM [facility] Alkaline Phosphatase 93 39 - 117 U/L 10/12/2022 7:55 AM [facility] Total Bilirubin 0.4 0.0 - 1.2 mg/dL 10/12/2022 7:55 AM [facility] Globulin 2.5 gm/dL 10/12/2022 7:55 AM [facility] Comment:Calculated Result A/G Ratio 1.7 g/dL 10/12/2022 7:55 AM [facility] BUN/Creatinine Ratio 13.3 7.0 - 25.0 10/12/2022 7:55 AM [facility] Anion Gap 10.0 5.0 - 15.0 mmol/L 10/12/2022 7:55 AM [facility] eGFR 79.0 >60.0 mL/min/1. 73 10/12/2022 7:55 AM EST [facility] Comment:National Kidney Foun dation and [place] Society of Nephrology (ASN) Task Force recommended calculation based on the Chronic Kidney Disease Epidemiology Collaboration (CKD-EPI) equation refit without adjustment for race. Blood Port / Unknown 10/12/2022 7: 20 AM EST 10/12/2022 7:34 AM EST Narrative [facility] - 10/12/2022 7:55 AM EST GFR Normal >60 Chronic Kidney Disease <60 Kidney Failure <15 us Hilda Jarvis [employer] LAB BLOOD ORDERABLES Final Result [facility]
[address] [place] [address], documented in this encounter Visit Diagnoses Diagnosis [...] MAR Action Action Date Dose Rate Site dexamethasone (DECADRON) 20 mg in sodium chloride 0.9 % IVPB 20 mg, Intravenous, at 200 mL/hr, Administer over 15 Minutes, Once, On Bina 10/12/22 at 0912, For 1 dose, Administer over 5-15 minutes.Indications:M alignant neoplasm of upper-inner quadrant of left breast in female, estrogen receptor positive New Bag 10/12/2022 9:20 AM EST 20 mg 200 mL/hr diphenhydrAMINE (BENADRYL) IVPB 50 mg 50 mg, Intravenous, Once, On Bina 10/12/22 at 0912, For 1 dose, Caution: Look alike/sound alike drug alert.Indications:Mal ignant neoplasm of upper-inner quadrant of left breast in female, estrogen receptor positive New Bag 10/12/2022 9:40 AM EST 50 mg 390 mL/hr famotidine (PEPCID) injection 20 mg 20 mg, Intravenous, Administer over 2 Minutes, Once, On Bina 10/12/22 at 0912, For 1 dose, Give IV push over 2 minutes.Indications:M alignant neoplasm of upper-inner quadrant of left breast in female, estrogen receptor positive Given 10/12/2022 9:18 AM EST 20 mg heparin injection 500 Units 500 Units, Intravenous, As Needed, Line Care, Starting on Bina 10/12/22 at 1121, Use for Implanted Ports.Indications:Enc ounter for care related to vascular access port,Malignant neoplasm of lower-outer quadrant of left breast of female, estrogen receptor positive Given 10/12/2022 1:32 PM EST 500 Units PACLitaxel (TAXOL) 330 mg in sodium chloride 0.9 % 605 mL chemo IVPB 330 mg (rounded from 329 mg = 175 mg/m2 ? 1.88 m2 Treatment Plan BSA from Recorded weight), Intravenous, Administer over 3 Hours, Once, On Bina 10/12/22 at 0957, For 1 dose, Administer using non-DEHP bag and tubing via low-protein binding 0.2 micron in-line filter HAZARDOUS - Handle with careIndications:Bob billingsley neoplasm of upper-inner quadrant of left breast in female, estrogen receptor positive New Bag 10/12/2022 10:25 AM EST 330 mg 202 mL/hr pegfilgrastim (NEULASTA ONPRO) on-body injector 6 mg 6 mg, Subcutaneous, Once, On Bina 10/12/22 at 1300, For 1 doseIndications:Bob billingsley neoplasm of upper-inner quadrant of left breast in female, estrogen receptor positive Given 10/12/2022 1:28 PM EST 6 mg Right Lower Abdomen sodium chloride 0.9 % infusion 250 mL 250 mL, Intravenous, at 20 mL/hr, Once, On Bina 10/12/22 at 0912, For 1 doseIndications:Bob billingsley neoplasm of upper-inner quadrant of left breast in female, estrogen receptor positive New Bag 10/12/2022 9:15 AM EST 250 mL 20 mL/hr documented in this encounter Additional Health Concerns Assessment Noted Time PHQ-2 Depression Total Score: 2 07/11/20 22 1:07 PM EDT documented as of this encounter Care Teams Manager Field Sales Relationship Specialty Start Date End Date Herbert Hair MD [address] [facility] [address] [facility] [place] [address] PCP - General Adolescent Medicine 03/03/22 documented as of this encounter
--- OUTSIDE RECORDS SUMMARY | 2024-08-17 15:52 | XMS_ITS | Encounter Summary ---
Author Organization [facility] Address [address] [place] [address] Care Team Providers Care Group Exercise Instructor Name Role Phone Herbert Hair MD Primary Care Provider + [phone] Reason for Visit * Auth/Cert (Routine) Specialty [...] Expiration Date Visits Re quested Visits Authorized [id number] 1 1 Encounter Details Date Type Department Care Team (Latest Contact Info) Description 11/03/2022 5:05 AM EST - 11/03/2022 11:59 PM EST Hospital Encounter [facility] [address] [place] [phone] Discharge Disposition: Home or Self Care Social [...] daily 60 tablet 10/16/2022 01/03/20 23 Vit-Fe [id number] ( VITAMIN/MIN +DHA PO) Take 1 tablet [...] [facility] [address] [facility] [address] [place] [address] Bre Crenshaw MD [address] [facility] [address] [place] [id number] 12/31/2024 9:00 AM EDT Office Visit [facility] [address] [facility] [address] [place] [phone] Annikashelley OraliaDWAYNE [address] [facility] [address] [place] [address] 05/12/2025 1:45 PM EDT Office Visit [facility] [address] [facility] [address] [place] [phone] Obed Woodard MD [address] [facility] [address] [place] [address] documented as of this encounter Visit Diagnoses Not on filedocumented in this encounter Care Teams Group Exercise Instructor Relationship Specialty Start Date End Date Herbert Hair MD [address] [facility] [address] [place] [address] PCP - General Adolescent Medicine 03/03/22 documented as of this encounter
--- OUTSIDE RECORDS SUMMARY | 2024-08-17 15:52 | XMS_ITS | Encounter Summary ---
Author Organization [facility] Address [address] [place] [address] Care Team Providers Care Diesel Engine Tester Name Role Phone Herbert Hair MD Primary Care Provider + [phone] Reason for Visit * Episode Based Medications (Routine) - Closed Specialty Diagnoses / Procedures Referred By Nasrin t Referred To Contact Diagnoses Malignant neoplasm of upper-inner quadrant of left breast in female, estrogen receptor positive Procedures FL DEXAMETHASONE SODIUM PHOS FL PACLITAXEL INJECTION FL INJECTION, UDENYCA 0.5 MG FL INJ PEGFILGRAST EX BIO 0.5MG Bre Crenshaw MD [address] [address] Phone: tel: fax: Referral ID Status Reason Start Date Expiration Date Visits Re quested Visits Authorized [id number] Closed 07/13/2022 11/30/2022 1 1 Encounter Details Date Type Department Care Team (Latest Contact Info) Description 10/26/2022 7:41 AM EST - 10/26/2022 11:59 PM EST Hospital Encounter [facility] [address] [phone] Malignant neoplasm of upper-inner quadrant of left [...] Sign Reading Time Taken Comments Blood Pressure 128/82 10/26/2022 2:00 PM EST Pulse 86 10/26/2022 2:00 PM EST Temperature - - Respiratory Rate - [...] daily 60 tablet 10/16/2022 01/03/20 23 Vit-Fe [id number] ( VITAMIN/MIN +DHA PO) Take 1 tablet [...] [facility] [address] [facility] [address] [place] [address] Bre Crenshaw MD [address] [facility] [address] [place] [address] 12/31/2024 9:00 AM EDT Office Visit [facility] [address] [facility] [address] [place] [address] Oralia Saha APRN [address] [facility] [address] [place], [place] [phone] 05/12/2025 1:45 PM EDT Office Visit [facility] [address] [facility] [address] [place] [phone] Obed Woodard MD [address] [facility] [address] [place] [address] documented as of this encounter Procedures Procedure Name Priority Date/Time Associated Diagnosis Comments CBC WITH AUTO DIFFERENTIAL Routine 10/26/2022 7:45 AM EST Malignant neoplasm of upper-inner quadrant of left breast in female, estrogen receptor positive CBC AND DIFFERENTIAL Routine 10/26/2022 7:45 AM EST Malignant neoplasm of upper-inner quadrant of left breast in female, estrogen receptor positive COMPREHENSIVE METABOLIC PANEL Routine 10/26/2022 7:45 AM EST Malignant neoplasm of upper-inner quadrant of left breast in female, estrogen receptor positive documented in this encounter Results * (ABNORMAL) CBC Auto Differential (10/26/2022 7:45 AM EST) WBC 5.13 3.40 - 10.80 10*3/mm3 10/26/2022 8:11 AM EST [facility] RBC 3.19(L) 3.77 - 5.28 10*6/mm3 10/26/2022 8:11 AM EST [facility] Hemoglobin 10.7(L) 12.0 - 15.9 g/dL 10/26/2022 8:11 AM EST [facility] Hematocrit 33.0(L) 34.0 - 46.6 % 10/26/2022 8:11 AM EST [facility] MCV 103.4(H) 79.0 - 97.0 fL 10/26/2022 8:11 AM EST [facility] MCH 33.5(H) 26.6 - 33.0 pg 10/26/2022 8:11 AM EST [facility] MCHC 32.4 31.5 - 35.7 g/dL 10/26/2022 8:11 AM EST [facility] RDW 15.2 12.3 - 15.4 % 10/26/2022 8:11 AM EST [facility] RDW-SD 57.7(H) 37.0 - 54.0 fl 10/26/2022 8:11 AM EST [facility] MPV 11.5 6.0 - 12.0 fL 10/26/2022 8:11 AM EST [facility] Platelets 150 140 - 450 10*3/mm3 10/26/2022 8:11 AM EST [facility] Neutrophil % 62.6 42.7 - 76.0 % 10/26/2022 8:11 AM EST [facility] Lymphocyte % 26.3 19.6 - 45.3 % 10/26/2022 8:11 AM EST [facility] Monocyte % 7.6 5.0 - 12.0 % 10/26/2022 8:11 AM EST [facility] Eosinophil % 2.7 0.3 - 6.2 % 10/26/2022 8:11 AM EST [facility] Basophil % 0.4 0.0 - 1.5 % 10/26/2022 8:11 AM EST [facility] Immature Grans % 0.4 0.0 - 0.5 % 10/26/2022 8:11 AM EST [facility] Neutrophils, Absolute 3.21 1.70 - 7.00 10*3/mm3 10/26/2022 8:11 AM EST [facility] Lymphocytes, Absolute 1.35 0.70 - 3.10 10*3/mm3 10/26/2022 8:11 AM EST [facility] Monocytes, Absolute 0.39 0.10 - 0.90 10*3/mm3 10/26/2022 8:11 AM EST [facility] Eosinophils, Absolute 0.14 0.00 - 0.40 10*3/mm3 10/26/2022 8:11 AM EST [facility] Basophils, Absolute 0.02 0.00 - 0.20 10*3/mm3 10/26/2022 8:11 AM EST [facility] Immature Grans, Absolute 0.02 0.00 - 0.05 10*3/mm3 10/26/2022 8:11 AM EST [facility] Blood Port / Unknown 10/26/2022 7: 45 AM EST 10/26/2022 8:09 AM EST us Bre Crenshaw MD LAB BLOOD ORDERABLES Final Resul t [facility]
[address] [place] [address], * (ABNORMAL) Comprehensive metabolic panel (10/26/2022 7:45 AM EST) Glucose 133(H) 65 - 99 mg/dL 10/26/2022 8:25 AM [facility] BUN 12 6 - 20 mg/dL 10/26/2022 8:25 AM [facility] Creatinine 0.75 0.57 - 1.00 mg/dL 10/26/2022 8:25 AM [facility] Sodium 140 136 - 145 mmol/L 10/26/2022 8:25 AM [facility] Potassium 3.4(L) 3.5 - 5.2 mmol/L 10/26/2022 8:25 AM [facility] Chloride 103 98 - 107 mmol/L 10/26/2022 8:25 AM [facility] CO2 26.0 22.0 - 29.0 mmol/L 10/26/2022 8:25 AM [facility] Calcium 9.3 8.6 - 10.5 mg/dL 10/26/2022 8:25 AM [facility] Total Protein 6.3 6.0 - 8.5 g/dL 10/26/2022 8:25 AM [facility] Albumin 4.1 3.5 - 5.2 g/dL 10/26/2022 8:25 AM [facility] ALT (SGPT) 29 1 - 33 U/L 10/26/2022 8:25 AM [facility] AST (SGOT) 18 1 - 32 U/L 10/26/2022 8:25 AM [facility] Alkaline Phosphatase 93 39 - 117 U/L 10/26/2022 8:25 AM [facility] Total Bilirubin 0.3 0.0 - 1.2 mg/dL 10/26/2022 8:25 AM [facility] Globulin 2.2 gm/dL 10/26/2022 8:25 AM [facility] Comment:Calculated Result A/G Ratio 1.9 g/dL 10/26/2022 8:25 AM [facility] BUN/Creatinine Ratio 16.0 7.0 - 25.0 10/26/2022 8:25 AM [facility] Anion Gap 11.0 5.0 - 15.0 mmol/L 10/26/2022 8:25 AM EST [facility] eGFR 98.3 >60.0 mL/min/1.7 3 10/26/2022 8:25 AM EST [facility] Blood Port / Unknown 10/26/2022 7: 45 AM EST 10/26/2022 8:01 AM EST Narrative [facility] - 10/26/2022 8:25 AM EST GFR Normal >60 Chronic Kidney Disease <60 Kidney Failure <15 us Bre Crenshaw MD LAB BLOOD ORDERABLES Final Resul t [facility]
[address] [place] [address], documented in this encounter Visit Diagnoses Diagnosis [...] Administer over 15 Minutes, Once, On Bina 10/26/22 at 1132, For 1 dose, Administer over 5-15 minutes.Indications:M alignant neoplasm of upper-inner quadrant of left breast in female, estrogen receptor positive New Bag 10/26/2022 11:45 AM EST 20 mg 200 mL/hr diphenhydrAMINE (BENADRYL) IVPB 50 mg 50 mg, Intravenous, Once, On Bina 10/26/22 at 1132, For 1 dose, Caution: Look alike/sound alike drug alert.Indications:Mal ignant neoplasm of upper-inner quadrant of left breast in female, estrogen receptor positive New Bag 10/26/2022 12:04 PM EST 50 mg 200 mL/hr famotidine (PEPCID) injection 20 mg 20 mg, Intravenous, Administer over 2 Minutes, Once, On Bina 10/26/22 at 1132, For 1 dose, Give IV push over 2 minutes.Indications:M alignant neoplasm of upper-inner quadrant of left breast in female, estrogen receptor positive Given 10/26/2022 11:47 AM EST 20 mg heparin injection 500 Units 500 Units, Intravenous, As Needed, Line Care, Starting on Bina 10/26/22 at 1131, Use for Implanted Ports.Indications:Enc ounter for care related to vascular access port,Malignant neoplasm of lower-outer quadrant of left breast of female, estrogen receptor positive Given 10/26/2022 3:55 PM EST 500 Units PACLitaxel (TAXOL) 330 mg in sodium chloride 0.9 % 605 mL chemo IVPB 330 mg (rounded from 329 mg = 175 mg/m2 ? 1.88 m2 Treatment Plan BSA from Recorded weight), Intravenous, Administer over 3 Hours, Once, On Bina 10/26/22 at 1217, For 1 dose, Administer using non-DEHP bag and tubing via low-protein binding 0.2 micron in-line filter HAZARDOUS - Handle with careIndications:Bob billingsley neoplasm of upper-inner quadrant of left breast in female, estrogen receptor positive New Bag 10/26/2022 1:00 PM EST 330 mg 202 mL/hr pegfilgrastim (NEULASTA ONPRO) on-body injector 6 mg 6 mg, Subcutaneous, Once, On Bina 10/26/22 at 1518, For 1 doseIndications:Bob billingsley neoplasm of upper-inner quadrant of left breast in female, estrogen receptor positive Given 10/26/2022 3:59 PM EST 6 mg Left Lower Abdomen sodium chloride 0.9 % infusion 250 mL 250 mL, Intravenous, at 20 mL/hr, Once, On Bina 10/26/22 at 1132, For 1 doseIndications:Bob billingsley neoplasm of upper-inner quadrant of left breast in female, estrogen receptor positive New Bag 10/26/2022 11:42 AM EST 250 mL 20 mL/hr documented in this encounter Care Teams Diesel Engine Tester Relationship Specialty Start Date End Date Herbert Hair MD [address] [place] [facility] [address] [place] [address] PCP - General Adolescent Medicine 03/03/22 documented as of this encounter
--- OUTSIDE RECORDS SUMMARY | 2024-08-17 15:52 | XMS_ITS | Encounter Summary ---
Author Organization [facility] Address [address] [place] [address] Care Team Providers Care Active Directory Systems Administrator Name Role Phone Herbert Hair MD Primary Care Provider [phone] Reason for Visit * Reason Comments Med Refill Encounter Details Date Type Department Care Team (Late st Contact Info) Description 10/16/2022 Refill [facility] HEMATOLOGY & ONCOLOGY [address]00 [facility] [address] [place] [phone] Bre Crenshaw MD 1700 [facility] [address] [place] [phone] Social History Tobacco Use Types Packs/Day Years [...] [facility] [address] [facility] [address] [place] [address] Bre Crenshaw MD [address] [facility] [address] [place] [address] 12/31/2024 9:00 AM EDT Office Visit [facility] UROLOGY [address] [facility] [address] [place] [address] Oralia Saha APRN 1760 [facility] [address] [place] [address] 05/12/2025 1:45 PM EDT Office Visit [facility] CARDIOLOGY [address] [facility] [address] [place] [phone] Obed Woodard MD 1720 [facility] [address] [place], [place] [phone] documented as of this encounter Visit Diagnoses Not on filedocumented in this encounter Additional Health Concerns Assessment Noted Time PHQ-2 Depression Total Score: 2 07/11/20 22 1:07 PM EDT documented as of this encounter Care Teams Active Directory Systems Administrator Relationship Specialty Start Date End Date Herbert Hair MD [address] [place] [facility] [address] [facility] [place] [address] PCP - General Adolescent Medicine 03/03/22 documented as of this encounter
--- OUTSIDE RECORDS SUMMARY | 2024-08-17 15:52 | XMS_ITS | Encounter Summary ---
Author Organization [facility] Address [address] [place] [address] Care Team Providers Care Motorcycle Mechanic Apprentice Name Role Phone Herbert Hair MD Primary Care Provider Encounter Details Date Type Department Care Team (Latest Contact Info) Description 11/08/2022 8:52 AM EST - 11/08/2022 11:[address] [facility] Hospital Encounter [facility] [address] [facility] [address] [address] [place] [address] Discharge Disposition: Home or Self [...] daily 60 tablet 10/16/2022 01/03/20 23 Vit-Fe [id number]-BE-JVN ( VITAMIN/MIN +DHA PO) Take 1 tablet [...] Description 09/18/2024 3:30 PM EST Office Visit [facility] HEMATOLOGY & ONCOLOGY 1700 [facility] [address] [place] [phone] Bre Crenshaw MD 1700 [facility] [address] [place] [address] 12/31/2024 9:00 AM EDT Office Visit [facility] UROLOGY 1760 [facility] [address] [place] [address] Oralia Saha APRN 1760 [facility] [address] [place] [address] 05/12/2025 1:45 PM EDT Office Visit [facility] CARDIOLOGY [address] [place] [address] Obed Woodard MD [address] [facility] [address] [place] [address] documented as of this encounter Visit Diagnoses Not on filedocumented in this encounter Care Teams Motorcycle Mechanic Apprentice Relationship Specialty Start Date End Date Herbert Hair MD 1210 [facility] [address] [place] [address] PCP - General Adolescent Medicine 03/03/22 documented as of this encounter
--- OUTSIDE RECORDS SUMMARY | 2024-08-17 15:52 | XMS_ITS | Encounter Summary ---
Author Organization [facility] Address [address] [place] [address] Care Team Providers Care Triage Register Nurse Name Role Phone Herbert Hair MD Primary Care Provider [phone] Reason for Visit * Reason Onset Date Comments DR MICHELLE FLOWERS 10/04/2022 Encounter Details Date Type Department Care Team (Late st Contact Info) Description 10/04/2022 Telephone [facility] HEMATOLOGY & ONCOLOGY [address] [phone] Bre Crenshaw MD [address] [place] [phone] MICHELLE FLOWERS Social History Tobacco Use Types Packs/Day Years [...] encounter Miscellaneous Notes * Telephone Encounter - Deanne Esposito RegSched Rep - 10/05/2022 2:40 PM EST Called Leydi back to discuss copay. LVM explaining that system does not notify the office when a deductible is met and it will continue to ask for copay. Instructed her to let the supervisor front check in staff know when she comes that she has met her [id number] deductible and they could adjust. Provided call back number if there are any questions. * Telephone Encounter - Torri Schwartz RegSched Rep - 10/04/2022 11:29 AM EST Caller: Leydi Brown Relationship: Self Best call back number: [phone] What is the best time to reach you: ANYTIME Who are you requesting to speak with (clinical staff, provider, specific staff member): RESEARCH LEADER What was the call regarding: BILLING DEPT TOLD HER TO CALL AND ASK FOR THE RESEARCH LEADER TO DISCUSS CO-PAYMENTS, HAVE BEEN PAYING THEM BUT SHE SAID SHE'S NOT SUPPOSED TO BE, PT HAS MET HER DEDUCTIBLE Do you require a callback: YES documented in this encounter Plan of Treatment Upcoming Encounters Date Type Department Care Team (Late st Contact Info) Description 09/18/2024 3:30 PM EST Office Visit [facility] HEMATOLOGY & ONCOLOGY 1700 [facility] [address] [place] [address] Bre Crenshaw MD [address] [facility] [address] [place] [address] 12/31/2024 9:00 AM EDT Office Visit [facility] UROLOGY [address] [facility] [address] [place] [address] Oralia Saha SALES REPRESENTATIVE [employer] 1760 [facility] [address] [place], [place] [phone] 05/12/2025 1:45 PM EDT Office Visit [facility] CARDIOLOGY [address] [facility] [address] [place] [address] Obed Woodard MD 1720 [facility] [address] [place], [place] [phone] documented as of this encounter Visit Diagnoses Not on filedocumented in this encounter Additional Health Concerns Assessment Noted Time PHQ-2 Depression Total Score: 2 07/11/20 22 1:07 PM EDT documented as of this encounter Care Teams Triage Register Nurse Relationship Specialty Start Date End Date Herbert Hair MD 1210 [facility] [address] [place] [address] PCP - General Adolescent Medicine 03/03/22 documented as of this encounter
--- OUTSIDE RECORDS SUMMARY | 2024-08-17 15:53 | XMS_ITS | Encounter Summary ---
Author Organization [facility] Address [address] [place] [address] Care Team Providers Care Rn Oncology Name Role Phone Herbert Hair MD Primary Care Provider Reason for Visit * Reason Onset Date Comments INGRID-TRIAGE 09/18/2022 Encounter Details Date Type Department Care Team (Late st Contact Info) Description 09/18/2022 Telephone [facility] HEMATOLOGY & ONCOLOGY [address] [address] Bre Crenshaw MD [address] [place] [phone] INGRID-TRIAGE Social History Tobacco Use Types Packs/Day [...] Telephone Encounter - Yanet Preston RN - 09/18/2022 1:06 PM EST I called and spoke to patient about her symptoms. She said that her legs hurt very bad and extends from her ankle up through her groin. Says that even her ovaries feel pained like labor pains. She called the treasury management sales consultant over the weekend and was told to alternate ibuprofen and tylenol and use heating pads but she is still very uncomfortable. Describes the pain as a deep ache. I talked with Bria Jarvis and she will prescribe tramadol every 6 hours to see if she can get relief from the pain. Patient also said that she has had diarrhea but has not taken any immodium so I advised her on the use ofimmodium. She will start the tramadol today and let us know how she does. * Telephone Encounter - Floresita Donaldson - 09/18/2022 10:22 AM EST Patient called she has leg pain that is going into the ovary area, also having some diarrhea pleasecall. documented in this encounter Plan of Treatment Upcoming Encounters Date Type Department Care Team (Late st Contact Info) Description 09/18/2024 3:30 PM EST Office Visit [facility] HEMATOLOGY & ONCOLOGY 1700 [facility] [address] [place] [phone] Bre Crenshaw MD 1700 [facility] [address] [place] [address] 12/31/2024 9:00 AM EDT Office Visit [facility] UROLOGY [address] [place] [phone] Oralia Saha APRN 1760 [facility] [address] [place], [place] [phone] 05/12/2025 1:45 PM EDT Office Visit [facility] CARDIOLOGY 1720 [facility] [address] [place] [phone] Obed Woodard MD 1720 [facility] [address] [place] [phone] documented as of this encounter Visit Diagnoses Not on filedocumented in this encounter Additional Health Concerns Assessment Noted Time PHQ-2 Depression Total Score: 2 07/11/20 22 1:07 PM EDT documented as of this encounter Care Teams Rn Oncology Relationship Specialty Start Date End Date Herbert Hair MD 1210 [facility] [address] [place] [address] PCP - General Adolescent Medicine 03/03/22 documented as of this encounter
--- OUTSIDE RECORDS SUMMARY | 2024-08-17 15:53 | XMS_ITS | Encounter Summary ---
Author Organization [facility] Address [address] [place] [address] Care Team Providers Care Cone Cleaner Name Role Phone Herbert Hair MD Primary Care Provider Encounter Details Date Type Department Care Team (Late st Contact Info) Description 08/31/[address] [facility] HEMATOLOGY & ONCOLOGY [address] [address] Bre Crenshaw MD [address] [place] [phone] Social History Tobacco Use Types Packs/Day Years [...] Telephone Encounter - Yanet Preston RN - 08/31/2022 9:18 AM EST Name of Physician notified: Hilda Jarvis APRN Time Physician Notified: 9:00am [x] Orders received [] Protocol/Standing orders followed [] No new orders Giving patient 20meq potassium in infusion room today. Counseled patient on taking oral potassium consistently. * Telephone Encounter - Janette Hartley RN - 08/31/2022 8:55 AM EST Critical Test Results MD: Bre Crenshaw MD Date: 08/31/2022 Critical test result: Potassium 2.6 Time results received: 08:55 documented in this encounter Plan of Treatment Upcoming Encounters Date Type Department Care Team (Late st Contact Info) Description 09/18/2024 3:30 PM EST Office Visit [facility] HEMATOLOGY & ONCOLOGY 1700 [facility] [address] [place] [address] Bre Crenshaw MD 1700 [facility] [address] [place] [address] 12/31/2024 9:00 AM EDT Office Visit [facility] UROLOGY [address]60 [facility] [address] [place] [address] Oralia Saha APRN [address] [address] 05/12/2025 1:45 PM EDT Office Visit [facility] CARDIOLOGY [address] [facility] [address] [place] [address] Obed Woodard MD [address] [facility] [address] [place] [address] documented as of this encounter Visit Diagnoses Not on filedocumented in this encounter Additional Health Concerns Assessment Noted Time PHQ-2 Depression Total Score: 2 07/11/20 22 1:07 PM EDT documented as of this encounter Care Teams Cone Cleaner Relationship Specialty Start Date End Date Herbert Hair MD 1210 [facility] [address] [place] [address] PCP - General Adolescent Medicine 03/03/22 documented as of this encounter
--- OUTSIDE RECORDS SUMMARY | 2024-08-17 15:53 | XMS_ITS | Encounter Summary ---
Author Organization [facility] Address [address] [place] [address] Care Team Providers Care Financial Management Consultant Name Role Phone Herbert Hair MD Primary Care Provider Reason for Visit * Reason Onset Date Comments DR GINO FLANAGAN FOR LYMPHODEMA PUMP 09/14/2022 Encounter Details Date Type Department Care Team (Late st Contact Info) Description 09/14/2022 Telephone [facility] HEMATOLOGY & ONCOLOGY [address] [address] Bre Crenshaw MD 1700 [place] [address] DR GINO FLANAGAN FOR LYMPHODEMA PUMP Social History Tobacco Use Types Packs/Day Years [...] Telephone Encounter - Yanet Preston RN - 09/14/2022 11:08 AM EST Called Елена and faxed document to [employer]. Fax successful. * Telephone Encounter - Tete Vargas RegSched Rep - 09/14/2022 10:08 AM EST Caller: ЕЛЕНА Relationship: FROM [facility] Best call back number: [phone] EXT. [phone] Who are you requesting to speak with (clinical staff, provider, specific staff member): CLINICAL What was the call regarding: ЕЛЕНА FROM [facility] NEEDS TO CONFIRM IF THE OFFICE REC'D THEIR FAX ON SEP.11- IT WAS A LETTER OF MEDICAL NEC. FOR A LYMPHODEMA PUMP. Do you require a callback: YES documented in this encounter Plan of Treatment Upcoming Encounters Date Type Department Care Team (Late st Contact Info) Description 09/18/2024 3:30 PM EST Office Visit [facility] HEMATOLOGY & ONCOLOGY 1700 [facility] [address] [place] [address] Bre Crenshaw MD [address]00 [facility] [address] [place] [address] 12/31/2024 9:00 AM EDT Office Visit [facility] UROLOGY 1760 [facility] 502 [place] [address] Oralia Saha APRN [address] [place] [address] [place] [address] 05/12/2025 1:45 PM EDT Office Visit [facility] CARDIOLOGY [address] [place] [phone] Obed Woodard MD 1720 [facility] [address] [place] [address] documented as of this encounter Visit Diagnoses Not on filedocumented in this encounter Additional Health Concerns Assessment Noted Time PHQ-2 Depression Total Score: 2 07/11/20 22 1:07 PM EDT documented as of this encounter Care Teams Financial Management Consultant Relationship Specialty Start Date End Date Herbert Hair MD 1210 [facility] [address] [place] [address] PCP - General Adolescent Medicine 03/03/22 documented as of this encounter
--- OUTSIDE RECORDS SUMMARY | 2024-08-17 15:53 | XMS_ITS | Encounter Summary ---
Author Organization [facility] Address [address] [place] [address] Care Team Providers Care Floor Grinder Name Role Phone Herbert Hair MD Primary Care Provider [phone] Reason for Visit * Reason Onset Date Comments INGRID-TRIAGE 08/04/2022 Encounter Details Date Type Department Care Team (Late st Contact Info) Description 08/04/2022 Telephone [facility] HEMATOLOGY & ONCOLOGY [address] [address] Bre Crenshaw MD [address] [place] [phone] INGRID-TRIAGE Social History Tobacco Use Types Packs/Day [...] Telephone Encounter - Yanet Preston RN - 08/04/2022 10:27 AM EDT I talked with the patient and she has not been swallowing the magic mouthwash as the label on her bottle was confusing. She has been swishing it but she feels like the throat irritation goes down heresophagus. She denies fevers. I did advise that she do a home covid test just to make sure she is not covid positive. I did say to start swallowing the magic mouthwash and she can use over the counter cough syrup as well. She verbalized understanding. * Telephone Encounter - Floresita Donaldson - 08/04/2022 9:28 AM EDT Patient called she had the 2nd round of chemo, her throat is hurting really bad. She already has magic mouthwash for the sores in her mouth. Please call. documented in this encounter Plan of Treatment Upcoming Encounters Date Type Department Care Team (Late st Contact Info) Description 09/18/2024 3:30 PM EST Office Visit [facility] HEMATOLOGY & ONCOLOGY 1700 [facility] 1100 [place] [address] Bre Crenshaw MD [address]00 [facility] [address] [place] [address] 12/31/2024 9:00 AM EDT Office Visit [facility] UROLOGY [address]60 [facility] 502 [place] [address] Oralia Saha, REACH TRUCK OPERATOR 1760 [facility] [address] [place], [place] [phone] 05/12/2025 1:45 PM EDT Office Visit [facility] CARDIOLOGY [address] [place] [phone] Obed Woodard MD 1720 [facility] [address] [place] [address] documented as of this encounter Visit Diagnoses Not on filedocumented in this encounter Additional Health Concerns Assessment Noted Time PHQ-2 Depression Total Score: 2 07/11/20 22 1:07 PM EDT documented as of this encounter Care Teams Floor Grinder Relationship Specialty Start Date End Date Herbert Hair MD 1210 [facility] [address] [place] [address] PCP - General Adolescent Medicine 03/03/22 documented as of this encounter
--- OUTSIDE RECORDS SUMMARY | 2024-08-17 15:53 | XMS_ITS | Encounter Summary ---
Author Organization [facility] Address [address] [place] [address] Care Team Providers Care Tank Cooper Name Role Phone Herbert Hair MD Primary Care Provider [phone] Encounter Details Date Type Department Care Team (Late st Contact Info) Description 08/17/2022 10:30 AM EST Office Visit [facility] HEMATOLOGY & ONCOLOGY [address] [facility] [address] [place] [phone] Bre Crenshaw MD [address] [facility] [address] [place] [address] Malignant neoplasm of upper-inner quadrant of left [...] Sign Reading Time Taken Comments Blood Pressure 125/90 08/17/2022 10:37 AM EST Pulse 105 08/17/2022 10:37 AM EST Temperature 36.2 ??C (97.1 ??F) 08/17/2022 10:[address] Respiratory Rate 18 08/17/2022 10:37 AM EST Oxygen Saturation 98% 08/17/2022 10:37 AM EST Inhaled Oxygen Concentration - - Weight 86.3 kg (190 lb 4.8 oz) 08/17/2022 10:37 AM EST Height 154.9 cm (5' 1 ) 08/17/2022 10:37 AM EST Body Mass Index 35.96 08/17/2022 10:37 AM EST documented in this encounter Progress Notes * Bre Crenshaw MD - 08/17/2022 10:30 AM EST PROBLEM LIST: 1. [id number] ER+ (90%), WY+ (10%), Her2 negative (1+) invasive ductal carcinoma [...] Leydi Brown returns for follow-up. She has completed 2 cycles of dose dense AC. After herlast visit she was put on an antibiotic and she says the swelling in her vulva as well as her armpit have decreased significantly. She says she is having some anxiety that starts about 2 days before coming in for each treatment. She wonders if she can increase the dose of her BuSpar that she uses for anxiety. Objective BP 125/90 Pulse 105 Temp 97.1 ??F (36.2 ??C) Resp 18 Ht 154.9 cm (61 ) Wt 86.3 kg (190 lb4.8 oz) SpO2 98% BMI 35.96 kg/m?? Vitals: 08/17/22 1037 PainSc: 0-No pain ECOG score: 0 General: well appearing female in no acute distress Neuro: alert and oriented HEENT: sclera anicteric, oropharynx clear Lymphatics: no cervical, supraclavicular, or axillary adenopathy Abdomen: soft, nontender, nondistended. No palpable organomegaly Extremeties: no lower extremity edema Skin: no rashes, lesions, bruising, or petechiae. Left axillary nodule, less than 1 cm, no tenderness or fluctuance Psych: mood and affect appropriate I have reexamined the patient and the results are consistent with the previously documented exam. Bre Crenshaw MD RECENT LABS: Lab Results Component Value Date WBC 5.56 08/17/2022 HGB 13.6 08/17/2022 HCT 40.3 08/17/2022 MCV 93.9 08/17/2022 PLT 165 08/17/2022 Lab Results Component Value Date GLUCOSE 132 (H) 07/26/2022 BUN 9 07/26/2022 CREATININE 0.83 07/26/2022 BCR 10.8 07/26/2022 K 2.8 (L) 07/26/2022 CO2 30.0 (H) 07/26/2022 CALCIUM 9.0 07/26/2022 ALBUMIN 4.20 07/26/2022 AST 15 07/26/2022 ALT 19 07/26/2022 ASSESSMENT AND PLAN: Leydi Brown is a 47 y.o. 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 She is completed 2 cycles of dose dense AC. We will proceed with cycle 3 today. Overall she has tolerated treatment fairly well. Sore throat: Continue to use Magic mouthwash as needed. Anxiety: Discussed that she can take 30 mg of buspirone as needed in the days prior to chemotherapy. Cardiac risk: Seen by cardiology. She continues on propranolol for blood pressure. Follow-up in 2 weeks for cycle 4. Bre Crenshaw MD [facility] Hematology and Oncology 08/17/2022 CC: documented in this encounter Plan of Treatment Upcoming Encounters Date Type Department Care Team (Late st Contact Info) Description 09/18/2024 3:30 PM EST Office Visit [facility] HEMATOLOGY & [facility]COLOGY [address] [facility] [address] [place] [phone] Bre Crenshaw MD [address] [facility] [address] [place] [address] 12/31/2024 9:00 AM EDT Office Visit [facility] UROLOGY [address] [facility] [address] [place] [address] Oralia Saha APRN [address] [facility] [address] [place] [address] 05/12/2025 1:45 PM EDT Office Visit [facility] CARDIOLOGY [address] [facility] [address] [place] [address] Obed Woodard MD [address] [facility] [address] [place], [place] [id number] documented as of this encounter Results * (ABNORMAL) Comprehensive metabolic panel (08/31/2022 8:09 AM EST) Glucose 156(H) 65 - 99 mg/dL 08/31/2022 8:54 AM EST [facility] BUN 10 6 - 20 mg/dL 08/31/2022 8:54 AM EST [facility] Creatinine 0.73 0.57 - 1.00 mg/dL 08/31/2022 8:54 AM EST [facility] Sodium 141 136 - 145 mmol/L 08/31/2022 8:54 AM [facility] Potassium 2.6(LL) 3.5 - 5.2 mmol/L 08/31/2022 8:54 AM [facility] Chloride 100 98 - 107 mmol/L 08/31/2022 8:54 AM [facility] CO2 32.0(H) 22.0 - 29.0 mmol/L 08/31/2022 8:54 AM [facility] Calcium 9.0 8.6 - 10.5 mg/dL 08/31/2022 8:54 AM [facility] Total Protein 6.4 6.0 - 8.5 g/dL 08/31/2022 8:54 AM [facility] Albumin 3.90 3.50 - 5.20 g/dL 08/31/2022 8:54 AM [facility] ALT (SGPT) 15 1 - 33 U/L 08/31/2022 8:54 AM [facility] AST (SGOT) 15 1 - 32 U/L 08/31/2022 8:54 AM [facility] Alkaline Phosphatase 76 39 - 117 U/L 08/31/2022 8:54 AM [facility] Total Bilirubin 0.2 0.0 - 1.2 mg/dL 08/31/2022 8:54 AM [facility] Globulin 2.5 gm/dL 08/31/2022 8:54 AM [facility] Comment:Calculated Result A/G Ratio 1.6 g/dL 08/31/2022 8:54 AM [facility] BUN/Creatinine Ratio 13.7 7.0 - 25.0 08/31/2022 8:54 AM [facility] Anion Gap 9.0 5.0 - 15.0 mmol/L 08/31/2022 8:54 AM [facility] eGFR 101.6 >60.0 mL/min/1. 73 08/31/2022 8:54 AM [facility] Comment:National Kidney Foun dation and [place] Society of Nephrology (ASN) Task Force recommended calculation based on the Chronic Kidney Disease Epidemiology Collaboration (CKD-EPI) equation refit without adjustment for race. Blood Port / Unknown 08/31/2022 8: 09 AM EST 08/31/2022 8:28 AM EST Narrative [facility] - 08/31/2022 8:54 AM EST GFR Normal >60 Chronic Kidney Disease <60 Kidney Failure <15 us Bre Crenshaw MD LAB BLOOD ORDERABLES Final Resul t [facility]
[address] [place] [address], documented in this encounter Visit Diagnoses Diagnosis Malignant neoplasm of upper-inner quadrant of left breast in female, estrogen receptor positive- Primary documented in this encounter Additional Health Concerns Assessment Noted Time PHQ-2 Depression Total Score: 2 07/11/20 22 1:07 PM EDT documented as of this encounter Care Teams Tank Cooper Relationship Specialty Start Date End Date Herbert Hair MD [address] [facility] [address] [place] [address] PCP - General Adolescent Medicine 03/03/22 documented as of this encounter
--- OUTSIDE RECORDS SUMMARY | 2024-08-17 15:53 | XMS_ITS | Encounter Summary ---
Author Organization [facility] Address [address] [place] [address] Care Team Providers Care Prevocational/Rehabilitation Counselor Name Role Phone Herbert Hair MD Primary Care Provider [phone] Encounter Details Date Type Department Care Team (Late st Contact Info) Description 07/26/2022 3:50 PM EDT Lab [facility] [address] [place] [address] Malignant neoplasm of upper-inner quadrant of left breast in female, estrogen receptor positive; Status post administration of cardiotoxic chemotherapy Social History Tobacco Use Types Packs/Day Years [...] Description 09/18/2024 3:30 PM EST Office Visit [facility] HEMATOLOGY & ONCOLOGY [address] [facility] [address] [place] [address] Bre Crenshaw MD [address] [facility] [address] [place] [address] 12/31/2024 9:00 AM EDT Office Visit [facility] UROLOGY [address] [facility] [address] [place] [address] Yifan OraliaDWAYNE [address] [facility] [address] [place], [place] [id number] 05/12/2025 1:45 PM EDT Office Visit [facility] CARDIOLOGY [address] [facility] [address] [place] [phone] Obed Woodard MD [address] [facility] [address] [place], [place] [id number] documented as of this encounter Procedures Procedure Name Priority Date/Time Associated Diagnosis Comments PROBNP Routine 07/26/2022 3:53 PM EDT Status post administration of cardiotoxic chemotherapy CBC WITH AUTO DIFFERENTIAL Routine 07/26/2022 3:53 PM EDT Malignant neoplasm of upper-inner quadrant of left breast in female, estrogen receptor positive TROPONIN Routine 07/26/2022 3:53 PM EDT Status post administration of cardiotoxic chemotherapy CBC AND DIFFERENTIAL Routine 07/26/2022 3:53 PM EDT Malignant neoplasm of upper-inner quadrant of left breast in female, estrogen receptor positive LIPID PANEL Routine 07/26/2022 3:53 PM EDT Status post administration of cardiotoxic chemotherapy COMPREHENSIVE METABOLIC PANEL Routine 07/26/2022 3:53 PM EDT Malignant neoplasm of upper-inner quadrant of left breast in female, estrogen receptor positive documented in this encounter Results * (ABNORMAL) CBC Auto Differential (07/26/2022 3:53 PM EDT) [facility] WBC 10.08 3.40 - 10.80 10*3/mm3 07/26/2022 4:19 PM EDT [facility] RBC 3.98 3.77 - 5.28 10*6/mm3 07/26/2022 4:19 PM EDT [facility] Hemoglobin 12.5 12.0 - 15.9 g/dL 07/26/2022 4:19 PM EDT [facility] Hematocrit 36.1 34.0 - 46.6 % 07/26/2022 4:19 PM EDT [facility] MCV 90.7 79.0 - 97.0 fL 07/26/2022 4:19 PM EDT [facility] MCH 31.4 26.6 - 33.0 pg 07/26/2022 4:19 PM EDT [facility] MCHC 34.6 31.5 - 35.7 g/dL 07/26/2022 4:19 PM EDT [facility] RDW 12.4 12.3 - 15.4 % 07/26/2022 4:19 PM EDT [facility] RDW-SD 39.8 37.0 - 54.0 fl 07/26/2022 4:19 PM EDT [facility] MPV 10.6 6.0 - 12.0 fL 07/26/2022 4:19 PM EDT [facility] Platelets 224 140 - 450 10*3/mm3 07/26/2022 4:19 PM EDT [facility] Neutrophil % 54.8 42.7 - 76.0 % 07/26/2022 4:19 PM EDT [facility] Lymphocyte % 24.4 19.6 - 45.3 % 07/26/2022 4:19 PM EDT [facility] Monocyte % 8.9 5.0 - 12.0 % 07/26/2022 4:19 PM EDT [facility] Eosinophil % 0.6 0.3 - 6.2 % 07/26/2022 4:19 PM EDT [facility] Basophil % 0.7 0.0 - 1.5 % 07/26/2022 4:19 PM EDT [facility] Immature Grans % 10.6(H) 0.0 - 0.5 % 07/26/2022 4:19 PM EDT [facility] Neutrophils, Absolute 5.52 1.70 - 7.00 10*3/mm3 07/26/2022 4:19 PM EDT [facility] Lymphocytes, Absolute 2.46 0.70 - 3.10 10*3/mm3 07/26/2022 4:19 PM EDT [facility] Monocytes, Absolute 0.90 0.10 - 0.90 10*3/mm3 07/26/2022 4:19 PM EDT [facility] Eosinophils, Absolute 0.06 0.00 - 0.40 10*3/mm3 07/26/2022 4:19 PM EDT [facility] Basophils, Absolute 0.07 0.00 - 0.20 10*3/mm3 07/26/2022 4:19 PM EDT [facility] Immature Grans, Absolute 1.07(H) 0.00 - 0.05 10*3/mm3 07/26/2022 4:19 PM EDT [facility] nRBC 0.7(H) 0.0 - 0.2 /100 WBC 07/26/2022 4:19 PM EDT [facility] Blood Venipuncture / Unknown 07/26/2022 3:53 PM EDT 07/26/2022 3:53 PM EDT Hilda Jarvis B[employer]ING [employer]ITCHER LAB BLOOD ORDERABLES Final Result [facility]
[address] [place] [address], * (ABNORMAL) Lipid Panel (07/26/2022 3:53 PM EDT) Total Cholesterol 170 0 - 200 mg/dL 07/26/2022 4:45 PM EDT [facility] Triglycerides 84 0 - 150 mg/dL 07/26/2022 4:45 PM EDT [facility] HDL Cholesterol 47 40 - 60 mg/dL 07/26/2022 4:45 PM EDT [facility] LDL Cholesterol 107(H) 0 - 100 mg/dL 07/26/2022 4:45 PM EDT [facility] VLDL Cholesterol 16 5 - 40 mg/dL 07/26/2022 4:45 PM EDT [facility] LDL/HDL Ratio 2.26 07/26/2022 4:45 PM EDT [facility] Blood Venipuncture / Unknown 07/26/2022 3:53 PM EDT 07/26/2022 3:53 PM EDT Narrative [facility] - 07/26/2022 4:45 PM EDT Cholesterol Reference Ranges (U.S. Department of Health and Human Services ATP III Classifications) Desirable ?<200 mg/dL Borderline High ?200-239 mg/dL High Risk ?>240 mg/dL Triglyceride Reference Ranges (U.S. Department of Health and Human Services ATP III Classifications) Normal ? <150 mg/dL Borderline High ??150-199 mg/dL High ? 200-499 mg/dL Very High ?>500 mg/dL HDL Reference Ranges (U.S. Department of Health and Human Services ATP III Classifications) Low ? <40 mg/dl (major risk factor for CHD) High ?>60 mg/dl ('negative' risk factor for CHD) LDL Reference Ranges (U.S. Department of Health and Human Services ATP III Classifications) Optimal ?<100 mg/dL Near Optimal ? 100-129 mg/dL Borderline High ??130-159 mg/dL High ? 160-189 mg/dL Very High ?>189 mg/dL Obed Woodard MD LAB BLOOD ORDERABLES Fi nal Result Performing Organization Address [facility] de Phone Number [facility]
[address] [place] [address], * Troponin I (07/26/2022 3:53 PM EDT) [facility] Troponin T <0.010 0.000 - 0.030 ng/mL 07/26/2022 4:39 PM EDT [facility] Blood Venipuncture / Unknown 07/26/2022 3:53 PM EDT 07/26/2022 3:53 PM EDT Narrative [facility] - 07/26/2022 4:39 PM EDT Troponin T Reference Range: <= 0.03 ng/mL- ?? Negative for AMI >0.03 ng/mL- ? Abnormal for myocardial necrosis. ??Clinicians would have to utilize clinical acumen, EKG, Troponin and serial changes to determine if it is an Acute Myocardial Infarction or myocardial injury due to an underlying chronic condition. Results may be falsely decreased if patient taking Biotin. Obed Woodard MD LAB BLOOD ORDERABLES Fi nal Result Performing Organization Address [facility] Co de Phone Number [facility]
[address] [place] [address], * proBNP (07/26/2022 3:53 PM EDT) [facility] proBNP 244.4 0.0 - 450.0 pg/mL 07/26/2022 4:39 PM EDT [facility] Blood Venipuncture / Unknown 07/26/2022 3:53 PM EDT 07/26/2022 3:53 PM EDT [facility] - 07/26/2022 4:39 PM EDT Among patients with dyspnea, NT-proBNP is highly sensitive for the detection of acute congestive heart failure. In addition NT-proBNP of <300 pg/ml effectively rules out acute congestive heart failure with 99% negative predictive value. Results may be falsely decreased if patient taking Biotin. us Obed Woodard MD LAB BLOOD ORDERABLES nal Result [facility]
[address] [place] [address], * (ABNORMAL) Comprehensive metabolic panel (07/26/2022 3:53 PM EDT) Glucose 132(H) 65 - 99 mg/dL 07/26/2022 4:45 PM EDT [facility] BUN 9 6 - 20 mg/dL 07/26/2022 4:45 PM EDT [facility] Creatinine 0.83 0.57 - 1.00 mg/dL 07/26/2022 4:45 PM EDT [facility] Sodium 141 136 - 145 mmol/L 07/26/2022 4:45 PM EDT [facility] Potassium 2.8(L) 3.5 - 5.2 mmol/L 07/26/2022 4:45 PM EDT [facility] Chloride 101 98 - 107 mmol/L 07/26/2022 4:45 PM EDT [facility] CO2 30.0(H) 22.0 - 29.0 mmol/L 07/26/2022 4:45 PM EDT [facility] Calcium 9.0 8.6 - 10.5 mg/dL 07/26/2022 4:45 PM EDT [facility] Total Protein 6.9 6.0 - 8.5 g/dL 07/26/2022 4:45 PM EDT [facility] Albumin 4.20 3.50 - 5.20 g/dL 07/26/2022 4:45 PM EDT [facility] ALT (SGPT) 19 1 - 33 U/L 07/26/2022 4:45 PM EDT [facility] AST (SGOT) 15 1 - 32 U/L 07/26/2022 4:45 PM EDT [facility] Alkaline Phosphatase 82 39 - 117 U/L 07/26/2022 4:45 PM EDT [facility] Total Bilirubin 0.2 0.0 - 1.2 mg/dL 07/26/2022 4:45 PM EDT [facility] Globulin 2.7 gm/dL 07/26/2022 4:45 PM EDT [facility] Comment:Calculated Result A/G Ratio 1.6 g/dL 07/26/2022 4:45 PM EDT [facility] BUN/Creatinine Ratio 10.8 7.0 - 25.0 07/26/2022 4:45 PM EDT [facility] Anion Gap 10.0 5.0 - 15.0 mmol/L 07/26/2022 4:45 PM EDT [facility] eGFR 87.1 >60.0 mL/min/1. 73 07/26/2022 4:45 PM EDT [facility] Comment:National Kidney Foun dation and [place] Society of Nephrology (ASN) Task Force recommended calculation based on the Chronic Kidney Disease Epidemiology Collaboration (CKD-EPI) equation refit without adjustment for race. Blood Venipuncture / Unknown 07/26/2022 3:53 PM EDT 07/26/2022 3:53 PM EDT [facility] - 07/26/2022 4:45 PM EDT GFR Normal >60 Chronic Kidney Disease <60 Kidney Failure <15 Hilda Jarvis APRN LAB BLOOD ORDERABLES Final Result [facility]
[address] [place] [address], documented in this encounter Visit Diagnoses Diagnosis Malignant neoplasm of upper-inner quadrant of left breast in female, estrogen receptor positive Status post administration of cardiotoxic chemotherapy documented in this encounter Additional Health Concerns Assessment Noted Time PHQ-2 Depression Total Score: 2 07/11/20 22 1:07 PM EDT documented as of this encounter Care Teams Prevocational/Rehabilitation Counselor Relationship Specialty Start Date End Date Herbert Hair MD [facility] [address] [place] [address] PCP - General Adolescent Medicine 03/03/22 documented as of this encounter
--- OUTSIDE RECORDS SUMMARY | 2024-08-17 15:53 | XMS_ITS | Encounter Summary ---
Author Organization [facility] Address [address] [place] [address] Care Team Providers Care Industrial Rehabilitation Consultant Name Role Phone Herbert Hair MD Primary Care Provider [phone] Reason for Visit * Reason Onset Date Comments INGRID-TRIAGE 08/21/2022 Encounter Details Date Type Department Care Team (Late st Contact Info) Description 08/21/2022 Telephone [facility] HEMATOLOG[facility] & ONCOLOGY [address] [address] Bre Crenshaw MD [address] [place] [id number] INGRID-TRIAGE Social History Tobacco Use Types Packs/Day [...] Telephone Encounter - Yanet Preston RN - 08/21/2022 1:26 PM EST I called and spoke with patient about her symptoms and she is very tired. She has some bouts of nausea but has not been vomiting. Is using zofran but she found some odt zofran and has taken that instead of the tablets and asked if that was okay. She does have a slight headache. I talked with DWAYNE Carpenter about the patient's symptoms and we will send in some compazine so she can have thatas an alternative med for the nausea. I also told patient that the chemo can be cumulative and she may just be feeling more week as she has had more cycles of the chemo. I told patient that we were sending the script for compazine to her pharmacy and she can alternate that with the zofran and she ve rbalized understanding. I did explain to call if she develops more symptoms. * Telephone Encounter - Floresita Donaldson - 08/21/2022 10:45 AM EST Patient called she had chemo , she is weak, and nauseous when she gets up, also has some questions about some medications. Please call. documented in this encounter Plan of Treatment Upcoming Encounters Date Type Department Care Team (Late st Contact Info) Description 09/18/2024 3:30 PM EST Office Visit [facility] HEMATOLOGY & ONCOLOGY [address] [facility] [address] [place] [address] Bre Crenshaw MD [address] [facility] [address] [place] [address] 12/31/2024 9:00 AM EDT Office Visit [facility] UROLOGY [address] [facility] [address] [place] [address] Fabianallyssa OraliaDWAYNE [address] [facility] [address] [place] [address] 05/12/2025 1:45 PM EDT Office Visit [facility] C[facility] [address] [facility] [address] [place] [id number] Obed Woodard MD [address] [facility] [address] [place] [phone] documented as of this encounter Visit Diagnoses Not on filedocumented in this encounter Additional Health Concerns Assessment Noted Time PHQ-2 Depression Total Score: 2 07/11/20 22 1:07 PM EDT documented as of this encounter Care Teams Industrial Rehabilitation Consultant Relationship Specialty Start Date End Date Herbert Hair MD [address] [facility] [address] [place] [address] PCP - General Adolescent Medicine 03/03/22 documented as of this encounter
--- OUTSIDE RECORDS SUMMARY | 2024-08-17 15:53 | XMS_ITS | Encounter Summary ---
Author Organization [facility] Address [address] [place] [address] Care Team Providers Care Thumb Sewer Name Role Phone Herbert Hair MD Primary Care Provider + [phone] Encounter Details Date Type Department Care Team (Late st Contact Info) Description 09/14/2022 Documentation [facility] [address] [place] [address] [address] [place] [address] Social History [...] Progress Notes * Halie Jimenez RD - 09/14/2022 2:47 PM EST ONC Nutrition Diagnosis: ER+ (90%), WV+ (10%), Her2 negative (1+) invasive ductal carcinoma of the left breast ?? Surgery: Bilateral mastectomy (06/13/22) ??Pathology showed a 2.4 cm IDC, intermediate grade. ??2/8 LN involved ?? Chemotherapy: OP BREAST AC DD DOXOrubicin / Cyclophosphamide - every 14 days x 4 cycles followed byOP BREAST - completed 08/31/22 DD PACLitaxel - every 14 days x 4 cycles - treatment start date 09/14/22 ?? Radiation: 40.05 Wagner in 15 fractions to the left chest wall and regional lymphatics / once chemo is completed Weight 196 lbs / 5 lbs weight gain from July Follow up with patient during infusion. Patient shares high anticipatory anxiety today; stating that she could not stop crying. She continues to work outside of the home and states that she is exhausted when she gets home, sometimes going to bed @ 5:30 pm Fatigue, lymphedema and hot flashes following completion of initial 4 cycles treatment. Discussed nutritional considerations with lymphedema including higher protein intake with goal of 100 grams+ per day and hot flashes including limitation on caffeine, hot spicy foods, alcohol and increasing physical activity. Will continue to follow patient through completion of treatment as indicated. documented in this encounter Plan of Treatment Upcoming Encounters Date Type Department Care Team (Late st Contact Info) Description 09/18/2024 3:30 PM EST Office Visit [facility] HEMATOLOGY & ONCOLOGY [address] [facility] [address] [place] [phone] Bre Crenshaw MD [address] [facility] [address] [place] [address] 12/31/2024 9:00 AM EDT Office Visit [facility] UROLOGY [address] [facility] [address] [place] [phone] Oralia Saha APRN [address] [facility] [address] [place], [place] [phone] 05/12/2025 1:45 PM EDT Office Visit [facility] CARDIOLOGY [address] [facility] [address] [place] [phone] Obed Woodard MD [address] [facility] [address] [place], [place] [phone] documented as of this encounter Visit Diagnoses Not on filedocumented in this encounter Additional Health Concerns Assessment Noted Time PHQ-2 Depression Total Score: 2 07/11/20 22 1:07 PM EDT documented as of this encounter Care Teams Thumb Sewer Relationship Specialty Start Date End Date Herbert Hair MD [facility] [address] [place] [address] PCP - General Adolescent Medicine 03/03/22 documented as of this encounter
--- OUTSIDE RECORDS SUMMARY | 2024-08-17 15:53 | XMS_ITS | Encounter Summary ---
Author Organization [facility] Address [address] [place] [address] Care Team Providers Care Bartender Helper Name Role Phone Herbert Hair MD Primary Care Provider Encounter Details Date Type Department Care Team (Late st Contact Info) Description 08/31/2022 8:30 AM EST Office Visit [facility] HEMATOLOGY & ONCOLOGY [address] [facility] [address] [place] [phone] Hilda Jarvis, FRESH WORK INSPECTOR [address] [facility] [address] [place] [address] Malignant neoplasm of upper-inner quadrant of left [...] Sign Reading Time Taken Comments Blood Pressure 125/83 08/31/2022 8:23 AM EST Pulse 73 08/31/2022 8:23 AM EST Temperature 36.3 ??C (97.3 ??F) 08/31/2022 8:23 AM ES T Respiratory Rate 18 08/31/2022 8:23 AM EST Oxygen Saturation 99% 08/31/2022 8:23 AM EST Inhaled Oxygen Concentration - - Weight 89.4 kg (197 lb) 08/31/2022 8:23 AM EST Height 154.9 cm (5' 1 ) 08/31/2022 8:23 AM EST Body Mass Index 37.22 08/31/2022 8:23 AM EST documented in this encounter Progress Notes * Hilda Jarvis, FRESH WORK INSPECTOR - 08/31/2022 8:30 AM EST PROBLEM LIST: 1. [id number] ER+ (90%), DC+ (10%), Her2 negative (1+) invasive ductal carcinoma [...] Brown returns for follow-up. She has completed 3 cycles of dose dense AC. She continues to have increased anxiety prior to treatment due to concerns of nausea. She did increase her BuSpar to 15 mg twice a day on 08/26/2022 but is still very anxious and tearful this morning. She continues to have lymphedema in the left upper extremity and chest wall. She is using a compression sleeve and going to occupational therapy for lymphedema treatment. Objective BP 125/83 Pulse 73 Temp 97.3 ??F (36.3 ??C) Resp 18 Ht 154.9 cm (61 ) Wt 89.4 kg (197 lb) SpO2 99% BMI 37.22 kg/m?? Vitals: 08/31/22 0823 PainSc: 0-No pain ECOG score: 0 [...] or petechiae. Left axillary nodule, less than 0.5 cm, no tenderness or fluctuance Psych: mood and affect appropriate I have reexamined the patient and the results are consistent with the previously documented exam. Hilda Jarvis, DWAYNE RECENT LABS: Lab Results Component Value Date WBC 4.88 08/31/2022 HGB 10.5 (L) 08/31/2022 HCT 30.8 (L) 08/31/2022 MCV 95.7 08/31/2022 PLT 173 08/31/2022 Lab Results Component Value Date GLUCOSE 156 (H) 08/31/2022 BUN 10 08/31/2022 CREATININE 0.73 08/31/2022 BCR 13.7 08/31/2022 K 2.6 (C) 08/31/2022 CO2 32.0 (H) 08/31/2022 CALCIUM 9.0 08/31/2022 ALBUMIN 3.90 08/31/2022 AST 15 08/31/2022 ALT 15 08/31/2022 ASSESSMENT AND PLAN: Leydi Brown is a 47 y.o. 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 She has completed 3 cycles of dose dense AC. We will proceed with cycle 4 today. Overall she has tolerated treatment fairly well. Sore throat: Continue to use Magic mouthwash as needed. Chemotherapy-induced nausea: Continue Zyprexa scheduled x3 days and Zofran and Compazine as needed. Anxiety: Continue 30 mg of buspirone as needed in the days prior to chemotherapy. I will also give her 25 mg of Benadryl IV premed prior to cycle 4 today. Cardiac risk: Seen by cardiology. She continues on propranolol for blood pressure. Lymphedema left upper extremity: Continue working with occupational therapy and wearing compressionsleeve. She would benefit from compression pump. Hypokalemia: After consultation with Dr. Bre Crenshaw we will give her 20 mEq of IV potassium today. She needs to continue her oral potassium 20 mEq p.o. daily. Follow-up in 2 weeks for cycle 1 of Taxol. I spent 35 minutes caring for Leydi on this date of service. This time includes time spent by me in the following activities: preparing for the visit, reviewing tests, obtaining and/or reviewing a separately obtained history, performing a medically appropriate examination and/or evaluation, counseling and educating the patient/family/caregiver, ordering medications, tests, or procedures and documenting information in the medical record Hilda Jarvis APRN [facility] 08/31/2022 and continue CC: documented in this encounter Plan of Treatment Upcoming Encounters Date Type Department Care Team (Late st Contact Info) Description 09/18/2024 3:30 PM EST Office Visit [facility] HEMATOLOGY & ONCOLOGY [address] [facility] [address] [place] [address] Bre Crenshaw MD [address] [facility] [address] [place] [address] 12/31/2024 9:00 AM EDT Office Visit [facility] UROLOGY [address] [facility] [address] [place] [address] Oralia Saha APRN [address] [facility] [address] [place] [address] 05/12/2025 1:45 PM EDT Office Visit [facility] CARDIOLOGY [address] [facility] [address] [place] [phone] Obed Woodard MD [address] [facility] [address] [place] [address] documented as of this encounter Visit Diagnoses Diagnosis Malignant neoplasm of upper-inner quadrant of left breast in female, estrogen receptor positive- Primary documented in this encounter Additional Health Concerns Assessment Noted Time PHQ-2 Depression Total Score: 2 07/11/20 1:07 PM EDT documented as of this encounter Care Teams Bartender Helper Relationship Specialty Start Date End Date Herbert Hair MD [address] [facility] [address] [place] [address] PCP - General Adolescent Medicine 03/03/22 documented as of this encounter
--- OUTSIDE RECORDS SUMMARY | 2024-08-17 15:53 | XMS_ITS | Encounter Summary ---
Author Organization [facility] Address [address] [place] [address] Care Team Providers Care Die Grinder Name Role Phone Herbert Hair MD Primary Care Provider + [phone] Reason for Referral * Clinical Pathway (Routine) - Closed Specialty Diagnoses / Procedures Referred By Nasrin hernandez Referred To Contact Research Laboratory Technician Diagnoses Malignant neoplasm of lower-outer quadrant of left female breast, unspecified estrogen receptor status Procedures RI OFFICE/OUTPATIENT NEW MODERATE MDM 45-59 MINUTES Bre Crenshaw MD [address] [address] Phone: tel: fax: Referral ID Status Reason Start Date Expiration Date V isits Requested Visits Authorized [id number] Closed Specialty Services Required 09/14/2022 09/14/2023 1 1 Reason for Visit * Episode Based Medications (Routine) - Closed Specialty Diagnoses / Procedures Referred By Nasrin hernandez Referred To Contact Diagnoses Malignant neoplasm of upper-inner quadrant of left breast in female, estrogen receptor positive Procedures RI DEXAMETHASONE SODIUM PHOS RI PACLITAXEL INJECTION RI INJECTION, UDENYCA 0.5 MG RI INJ PEGFILGRAST EX BIO 0.5MG Bre Crenshaw MD [address] [facility] [address] [place] [address] Phone: tel: fax: Referral ID Status Reason Start Date Expiration Date Visits Re quested Visits Authorized [id number] Closed 07/13/2022 11/30/2022 1 1 Encounter Details Date Type Department Care Team (Latest Contact Info) Description 09/14/2022 8:41 AM EST - 09/14/2022 11:59 PM EST Hospital Encounter [facility] [address] [facility] [address] [place] [address] Malignant neoplasm of upper-inner quadrant of left breast in female, estrogen receptor positive; Encounter for care related to vascular access port; Malignant neoplasm of lower-outer quadrant of left breast of female, estrogen receptor positive; Malignant neoplasm of lower-outer quadrant of left female breast, unspecified estrogen receptor status Discharge Disposition: Home or Self Care Social [...] Sign Reading Time Taken Comments Blood Pressure 157/89 09/14/2022 12:18 PM EST Pulse 74 09/14/2022 12:18 PM EST Temperature - - Respiratory Rate [...] 60 tablet 1 07/27/2022 10/16/19 23 Vit-Fe [id number] ( VITAMIN/MIN +DHA PO) Take 1 tablet [...] [facility] HEMATOLOGY & ONCOLOGY [address] [facility] [address] [place] [address] Bre Crenshaw MD [address] [facility] [address] [place] [address] 12/31/2024 9:00 AM EDT Office Visit [facility] UROLOGY [address] [facility] [address] [place] [address] Oralia Saha APRN [address] [facility] [address] [place], [place] [id number] 05/12/2025 1:45 PM EDT Office Visit [facility] CARDIOLOGY [address] [facility] [address] [place] [phone] Obed Woodard MD [address] [facility] [address] [place], [place] [phone] Scheduled Referrals Name Type Priority Associated Diagnoses Orde r Schedule Ambulatory Referral to ONC Social Work Outpatient Referral Routine Malignant neoplasm of lower-outer quadrant of left female breast, unspecified estrogen receptor status Ordered: 09/14/2022 documented as of this encounter Procedures Procedure Name Priority Date/Time Associated Diagnosis Comments CBC WITH AUTO DIFFERENTIAL Routine 09/14/2022 9:12 AM EST Malignant neoplasm of upper-inner quadrant of left breast in female, estrogen receptor positive , URINE Routine 09/14/2022 9:12 AM EST Malignant neoplasm of upper-inner quadrant of left breast in female, estrogen receptor positive CBC AND DIFFERENTIAL Routine 09/14/2022 9:12 AM EST Malignant neoplasm of upper-inner quadrant of left breast in female, estrogen receptor positive COMPREHENSIVE METABOLIC PANEL Routine 09/14/2022 9:12 AM EST Malignant neoplasm of upper-inner quadrant of left breast in female, estrogen receptor positive documented in this encounter Results * (ABNORMAL) CBC Auto Differential (09/14/2022 9:12 AM EST) WBC 3.72 3.40 - 10.80 10*3/mm3 09/14/2022 9:23 AM EST [facility] RBC 3.12(L) 3.77 - 5.28 10*6/mm3 09/14/2022 9:23 AM EST [facility] Hemoglobin 10.3(L) 12.0 - 15.9 g/dL 09/14/2022 9:23 AM EST [facility] Hematocrit 30.6(L) 34.0 - 46.6 % 09/14/2022 9:23 AM EST [facility] MCV 98.1(H) 79.0 - 97.0 fL 09/14/2022 9:23 AM EST [facility] MCH 33.0 26.6 - 33.0 pg 09/14/2022 9:23 AM EST [facility] MCHC 33.7 31.5 - 35.7 g/dL 09/14/2022 9:23 AM [facility] RDW 16.1(H) 12.3 - 15.4 % 09/14/2022 9:23 AM EST [facility] RDW-SD 52.0 37.0 - 54.0 fl 09/14/2022 9:23 AM [facility] MPV 10.6 6.0 - 12.0 fL 09/14/2022 9:23 AM EST [facility] Platelets 235 140 - 450 10*3/mm3 09/14/2022 9:23 AM EST [facility] Neutrophil % 58.6 42.7 - 76.0 % 09/14/2022 9:23 AM EST [facility] Lymphocyte % 25.8 19.6 - 45.3 % 09/14/2022 9:23 AM [facility] Monocyte % 12.4(H) 5.0 - 12.0 % 09/14/2022 9:23 AM EST [facility] Eosinophil % 0.5 0.3 - 6.2 % 09/14/2022 9:23 AM EST [facility] Basophil % 0.8 0.0 - 1.5 % 09/14/2022 9:23 AM EST [facility] Immature Grans % 1.9(H) 0.0 - 0.5 % 09/14/2022 9:23 AM EST [facility] Neutrophils, Absolute 2.18 1.70 - 7.00 10*3/mm3 09/14/2022 9:23 AM EST [facility] Lymphocytes, Absolute 0.96 0.70 - 3.10 10*3/mm3 09/14/2022 9:23 AM EST [facility] Monocytes, Absolute 0.46 0.10 - 0.90 10*3/mm3 09/14/2022 9:23 AM EST [facility] Eosinophils, Absolute 0.02 0.00 - 0.40 10*3/mm3 09/14/2022 9:23 AM EST [facility] Basophils, Absolute 0.03 0.00 - 0.20 10*3/mm3 09/14/2022 9:23 AM [facility] Immature Grans, Absolute 0.07(H) 0.00 - 0.05 10*3/mm3 09/14/2022 9:23 AM EST [facility] Blood Venipuncture / Unknown 09/14/2022 9:12 AM EST 09/14/2022 9:21 AM EST Bre Crenshaw MD LAB BLOOD ORDERABLES Final Resul t [facility]
[address] [place] [address], * (ABNORMAL) Comprehensive metabolic panel (09/14/2022 9:12 AM EST) Glucose 136(H) 65 - 99 mg/dL 09/14/2022 10:07 AM EST [facility] BUN 8 6 - 20 mg/dL 09/14/2022 10:07 AM [facility] Creatinine 0.75 0.57 - 1.00 mg/dL 09/14/2022 10:07 AM [facility] Sodium 140 136 - 145 mmol/L 09/14/2022 10:07 AM [facility] Potassium 3.6 3.5 - 5.2 mmol/L 09/14/2022 10:07 AM [facility] Chloride 101 98 - 107 mmol/L 09/14/2022 10:07 AM [facility] CO2 29.0 22.0 - 29.0 mmol/L 09/14/2022 10:07 AM [facility] Calcium 9.4 8.6 - 10.5 mg/dL 09/14/2022 10:07 AM [facility] Total Protein 7.0 6.0 - 8.5 g/dL 09/14/2022 10:07 AM [facility] Albumin 4.40 3.50 - 5.20 g/dL 09/14/2022 10:07 AM [facility] ALT (SGPT) 27 1 - 33 U/L 09/14/2022 10:07 AM [facility] AST (SGOT) 19 1 - 32 U/L 09/14/2022 10:07 AM [facility] Alkaline Phosphatase 74 39 - 117 U/L 09/14/2022 10:07 AM [facility] Total Bilirubin 0.3 0.0 - 1.2 mg/dL 09/14/2022 10:07 AM [facility] Globulin 2.6 gm/dL 09/14/2022 10:07 AM [facility] Comment:Calculated Result A/G Ratio 1.7 g/dL 09/14/2022 10:07 AM [facility] BUN/Creatinine Ratio 10.7 7.0 - 25.0 09/14/2022 10:07 AM [facility] Anion Gap 10.0 5.0 - 15.0 mmol/L 09/14/2022 10:07 AM [facility] eGFR 98.3 >60.0 mL/min/1. 73 09/14/2022 10:07 AM EST [facility] Comment:National Kidney Foun dation and [place] Society of Nephrology (ASN) Task Force recommended calculation based on the Chronic Kidney Disease Epidemiology Collaboration (CKD-EPI) equation refit without adjustment for race. Blood Venipuncture / Unknown 09/14/2022 9:12 AM EST 09/14/2022 9:26 AM EST Narrative [facility] - 09/14/2022 10:07 AM EST GFR Normal >60 Chronic Kidney Disease <60 Kidney Failure <15 us Bre Crenshaw MD LAB BLOOD ORDERABLES Final Resul t [facility]
[address] [place] [address], * , Urine - Urine, Clean Catch (09/14/2022 9:12 AM EST) HCG, Urine QL Negative Negative 09/14/2022 9:26 AM EST [facility] Urine Urine specimen obtained by clean catch procedure / Unknown Collection / Unknown 09/14/2022 9:12 AM EST 09/14/2022 9:21 AM EST us Bre Crenshaw MD URINE ORDERABLES Final Result [facility]
[address] [place] [address], [place] [phone] documented in this encounter Visit Diagnoses Diagnosis Malignant neoplasm of upper-inner quadrant of left breast in female, estrogen receptor positive Encounter for care related to vascular access port Malignant neoplasm of lower-outer quadrant of left female breast, unspecified estrogen receptor status documented in this encounter Administered Medications Inactive Administered Medications - up to 3 most recent administrations Medication Order MAR Action Action Date Dose Rate Site alteplase (CATHFLO/ACTIVASE) injection 2 mg 2 mg, Intravenous, Once, On Bina 09/14/22 at 0915, For 1 dose, Caution: High Risk/High Alert med. Refrigerate. If alteplase induced angioedema is suspected, activate the TPA induced angioedema order set. These symptoms include orolingual, hemifacial swelling, often contralateral to ischemic cerebral hemisphere. Onset may range from 5 - 180 minutes following infusion initiation.Indication s:Encounter for care related to vascular access port New Syringe/Cartri dge 09/14/2022 9:17 AM EST dexamethasone (DECADRON) IVPB 20 mg 20 mg, Intravenous, at 200 mL/hr, Administer over 15 Minutes, Once, On Bina 09/14/22 at 1016, For 1 dose, Administer over 5-15 minutes.Indications:M alignant neoplasm of upper-inner quadrant of left breast in female, estrogen receptor positive New Bag 09/14/2022 10:28 AM EST 20 mg 200 mL/hr diphenhydrAMINE (BENADRYL) IVPB 50 mg 50 mg, Intravenous, Once, On Bina 09/14/22 at 1016, For 1 dose, Caution: Look alike/sound alike drug alert.Indications:Mal ignant neoplasm of upper-inner quadrant of left breast in female, estrogen receptor positive New Bag 09/14/2022 10:30 AM EST 50 mg 200 mL/hr famotidine (PEPCID) injection 20 mg 20 mg, Intravenous, Administer over 2 Minutes, Once, On Bina 09/14/22 at 1016, For 1 dose, Give IV push over 2 minutes.Indications:M alignant neoplasm of upper-inner quadrant of left breast in female, estrogen receptor positive Given 09/14/2022 10:55 AM EST 20 mg heparin injection 500 Units 500 Units, Intravenous, As Needed, Line Care, Starting on Bina 09/14/22 at 1441, Use for Implanted Ports.Indications:Enc ounter for care related to vascular access port,Malignant neoplasm of lower-outer quadrant of left breast of female, estrogen receptor positive Given 09/14/2022 2:45 PM EST 500 Units PACLitaxel (TAXOL) 330 mg in sodium chloride 0.9 % 605 mL chemo IVPB 330 mg (rounded from 329 mg = 175 mg/m2 ? 1.88 m2 Treatment Plan BSA from Recorded weight), Intravenous, at 201.7 mL/hr, Administer over 3 Hours, Once, On Bina 09/14/22 at 1101, For 1 dose, Administer using non-DEHP bag and tubing via low-protein binding 0.2 micron in-line filter HAZARDOUS - Handle with careIndications:Bob billingsley neoplasm of upper-inner quadrant of left breast in female, estrogen receptor positive New Bag 09/14/2022 11:33 AM EST 330 mg 201.7 mL/hr pegfilgrastim (NEULASTA ONPRO) on-body injector 6 mg 6 mg, Subcutaneous, Once, On Bina 09/14/22 at 1511, For 1 doseIndications:Bob billingsley neoplasm of upper-inner quadrant of left breast in female, estrogen receptor positive Given 09/14/2022 3:19 PM EST 6 mg Right Upper Abdomen sodium chloride 0.9 % infusion 250 mL 250 mL, Intravenous, at 20 mL/hr, Once, On Bina 09/14/22 at 1016, For 1 doseIndications:Bob billingsley neoplasm of upper-inner quadrant of left breast in female, estrogen receptor positive New Bag 09/14/2022 10:26 AM EST 250 mL 20 mL/hr documented in this encounter Additional Health Concerns Assessment Noted Time PHQ-2 Depression Total Score: 2 07/11/20 1:07 PM EDT documented as of this encounter Care Teams Die Grinder Relationship Specialty Start Date End Date Herbert Hair MD [address] [facility] [address] [address] PCP - General Adolescent Medicine 03/03/22 documented as of this encounter
--- OUTSIDE RECORDS SUMMARY | 2024-08-17 15:53 | XMS_ITS | Encounter Summary ---
Author Organization [facility] Address [address] [place] [address] Care Team Providers Care Powerbuilder Name Role Phone Herbert Hair MD Primary Care Provider + [phone] Reason for Visit * Episode Based Medications (Routine) - Closed Specialty Diagnoses / Procedures Referred By Nasrin t Referred To Contact Diagnoses Malignant neoplasm of upper-inner quadrant of left breast in female, estrogen receptor positive Procedures CA DEXAMETHASONE SODIUM PHOS CA FOSAPREPITANT INJECTION CA PALONOSETRON HCL CA DOXORUBIC HCL 10 MG VL CHEMO CA CYCLOPHOSPHAMIDE 100 MG INJ CA INJECTION, UDENYCA 0.5 MG CA INJ PEGFILGRAST EX BIO 0.5MG Bre Crenshaw MD [address] [facility] [address] [place] [address] Phone: tel: fax: Referral ID Status Reason Start Date Expiration Date Visits Re quested Visits Authorized [id number] Closed 07/13/2022 11/02/2022 1 1 Encounter Details Date Type Department Care Team (Latest Contact Info) Description 08/31/2022 8:02 AM EST - 08/31/2022 11:59 PM EST Hospital Encounter [facility] [address] [facility] [address] [place] [phone] Malignant neoplasm of upper-inner quadrant of left [...] 1 tablet by mouth Daily. 03/07/20 23 levothyroxine (SYNTHROID, LEVOTHROID) 25 MCG tablet [...] 60 tablet 1 07/27/2022 10/16/19 23 Vit-Fe Azqwnme-DP-JJH ( VITAMIN/MIN +DHA PO) Take 1 tablet [...] PM EST Office Visit [facility] HEMAT[facility]Y & ONCOLOGY [address] [facility] [address] [place] [phone] Bre Crenshaw MD [address] [facility] [address] [place] [address] 12/31/2024 9:00 AM EDT Office Visit [facility] UROLOGY [address] [facility] [address] [place] [address] Oralia Saha APRN [address] [facility] [address] [place] [address] 05/12/2025 1:45 PM EDT Office Visit [facility] CARDIOLOGY [address] [facility] [address] [place] [phone] Obed Woodard MD [address] [facility] [address] [address] [place], [place] [id number] documented as of this encounter Procedures Procedure Name Priority Date/Time Associated Diagnosis Comments CBC WITH AUTO DIFFERENTIAL Routine 08/31/2022 8:09 AM EST Malignant neoplasm of upper-inner quadrant of left breast in female, estrogen receptor positive CBC AND DIFFERENTIAL Routine 08/31/2022 8:09 AM EST Malignant neoplasm of upper-inner quadrant of left breast in female, estrogen receptor positive COMPREHENSIVE METABOLIC PANEL Routine 08/31/2022 8:09 AM EST Malignant neoplasm of upper-inner quadrant of left breast in female, estrogen receptor positive documented in this encounter Results * (ABNORMAL) CBC Auto Differential (08/31/2022 8:09 AM EST) WBC 4.88 3.40 - 10.80 10*3/mm3 08/31/2022 8:46 AM EST [facility] RBC 3.22(L) 3.77 - 5.28 10*6/mm3 08/31/2022 8:46 AM EST [facility] Hemoglobin 10.5(L) 12.0 - 15.9 g/dL 08/31/2022 8:46 AM [facility] Hematocrit 30.8(L) 34.0 - 46.6 % 08/31/2022 8:46 AM EST [facility] MCV 95.7 79.0 - 97.0 fL 08/31/2022 8:46 AM EST [facility] MCH 32.6 26.6 - 33.0 pg 08/31/2022 8:46 AM EST [facility] MCHC 34.1 31.5 - 35.7 g/dL 08/31/2022 8:46 AM EST [facility] RDW 15.0 12.3 - 15.4 % 08/31/2022 8:46 AM EST [facility] RDW-SD 50.0 37.0 - 54.0 fl 08/31/2022 8:46 AM [facility] MPV 10.8 6.0 - 12.0 fL 08/31/2022 8:46 AM [facility] Platelets 173 140 - 450 10*3/mm3 08/31/2022 8:46 AM [facility] Neutrophil % 60.6 42.7 - 76.0 % 08/31/2022 8:46 AM [facility] Lymphocyte % 23.0 19.6 - 45.3 % 08/31/2022 8:46 AM [facility] Monocyte % 10.7 5.0 - 12.0 % 08/31/2022 8:46 AM [facility] Eosinophil % 1.4 0.3 - 6.2 % 08/31/2022 8:46 AM [facility] Basophil % 0.4 0.0 - 1.5 % 08/31/2022 8:46 AM [facility] Immature Grans % 3.9(H) 0.0 - 0.5 % 08/31/2022 8:46 AM [facility] Neutrophils, Absolute 2.96 1.70 - 7.00 10*3/mm3 08/31/2022 8:46 AM [facility] Lymphocytes, Absolute 1.12 0.70 - 3.10 10*3/mm3 08/31/2022 8:46 AM [facility] Monocytes, Absolute 0.52 0.10 - 0.90 10*3/mm3 08/31/2022 8:46 AM [facility] Eosinophils, Absolute 0.07 0.00 - 0.40 10*3/mm3 08/31/2022 8:46 AM [facility] Basophils, Absolute 0.02 0.00 - 0.20 10*3/mm3 08/31/2022 8:46 AM [facility] Immature Grans, Absolute 0.19(H) 0.00 - 0.05 10*3/mm3 08/31/2022 8:46 AM [facility] Blood Port / Unknown 08/31/2022 8: 09 AM EST 08/31/2022 8:28 AM EST us Bre Crenshaw MD LAB BLOOD ORDERABLES Final Resul t [facility]
[address] [place] [address], * (ABNORMAL) Comprehensive metabolic panel (08/31/2022 8:09 AM EST) Glucose 156(H) 65 - 99 mg/dL 08/31/2022 8:54 AM EST [facility] BUN 10 6 - 20 mg/dL 08/31/2022 8:54 AM [facility] Creatinine 0.73 0.57 - 1.00 mg/dL 08/31/2022 8:54 AM [facility] Sodium 141 136 - 145 mmol/L 08/31/2022 8:54 AM [facility] Potassium 2.6(LL) 3.5 - 5.2 mmol/L 08/31/2022 8:54 AM [facility] Chloride 100 98 - 107 mmol/L 08/31/2022 8:54 AM [facility] CO2 32.0(H) 22.0 - 29.0 mmol/L 08/31/2022 8:54 AM [facility] Calcium 9.0 8.6 - 10.5 mg/dL 08/31/2022 8:54 AM EST [facility] Total Protein 6.4 6.0 - 8.5 g/dL 08/31/2022 8:54 AM [facility] Albumin 3.90 3.50 - 5.20 g/dL 08/31/2022 8:54 AM [facility] ALT (SGPT) 15 1 - 33 U/L 08/31/2022 8:54 AM [facility] AST (SGOT) 15 1 - 32 U/L 08/31/2022 8:54 AM [facility] Alkaline Phosphatase 76 39 - 117 U/L 08/31/2022 8:54 AM EST [facility] Total Bilirubin 0.2 0.0 - 1.2 mg/dL 08/31/2022 8:54 AM EST [facility] Globulin 2.5 gm/dL 08/31/2022 8:54 AM [facility] Comment:Calculated Result A/G Ratio 1.6 g/dL 08/31/2022 8:54 AM EST [facility] BUN/Creatinine Ratio 13.7 7.0 - 25.0 08/31/2022 8:54 AM EST [facility] Anion Gap 9.0 5.0 - 15.0 mmol/L 08/31/2022 8:54 AM EST [facility] eGFR 101.6 >60.0 mL/min/1. 73 08/31/2022 8:54 AM [facility] Comment:National Kidney Foun dation and [place] Society of Nephrology (ASN) Task Force recommended calculation based on the Chronic Kidney Disease Epidemiology Collaboration (CKD-EPI) equation refit without adjustment for race. Blood Port / Unknown 08/31/2022 8: 09 AM EST 08/31/2022 8:28 AM EST [facility] - 08/31/2022 8:54 AM EST GFR Normal >60 Chronic Kidney Disease <60 Kidney Failure <15 Bre Crenshaw MD LAB BLOOD ORDERABLES Final Resul t [facility]
[address] [place] [address], documented in this encounter Visit Diagnoses Diagnosis [...] MAR Action Action Date Dose Rate Site Cyclophosphamide 1,130 mg in sodium chloride 0.9 % 280.7 mL chemo IVPB 1,130 mg (rounded from 1,128 mg = 600 mg/m2 ? 1.88 m2 Treatment Plan BSA from Recorded weight), Intravenous, at 561.4 mL/hr, Administer over 30 Minutes, Once, On Bina 08/31/22 at 1016, For 1 dose, HAZARDOUS - Handle with careIndications:Bob billingsley neoplasm of upper-inner quadrant of left breast in female, estrogen receptor positive New Bag 08/31/2022 10:48 AM EST 1,130 mg 561.4 mL/hr dexamethasone (DECADRON) IVPB 12 mg 12 mg, Intravenous, at 200 mL/hr, Administer over 15 Minutes, Once, On Bina 08/31/22 at 0916, For 1 dose, Give 15 to 30 minutes prior to chemotherapy. Administer over 5-15 minutes.Indications:M alignant neoplasm of upper-inner quadrant of left breast in female, estrogen receptor positive New Bag 08/31/2022 9:32 AM EST 12 mg 200 mL/hr diphenhydrAMINE (BENADRYL) IVPB 25 mg 25 mg, Intravenous, Once, On Bina 08/31/22 at 0931, For 1 dose, Caution: Look alike/sound alike drug alert. New Bag 08/31/2022 9:33 AM EST 25 mg DOXOrubicin (ADRIAMYCIN) chemo injection 112 mg 112 mg (rounded from 112.8 mg = 60 mg/m2 ? 1.88 m2 Treatment Plan BSA from Recorded weight), Intravenous, Administer over 5 Minutes, Once, On Bina 08/31/22 at 1001, For 1 dose, Administer via slow IV push over at least 3-10 minutes through free flowing line; VESICANT; check for blood return periodically. HAZARDOUS - Handle with careIndications:Bob billingsley neoplasm of upper-inner quadrant of left breast in female, estrogen receptor positive Subsequent Bag/Syringe 08/31/2022 10:37 AM EST 56 mg New Syringe 08/31/2022 10:36 AM EST 56 mg fosaprepitant (EMEND) 150 mg/100mL NS 150 mg, Intravenous, at 200 mL/hr, Administer over 30 Minutes, Once, On Bina 08/31/22 at 0916, For 1 dose, Give 15 to 30 minutes prior to chemotherapy.Indications :Malignant neoplasm of upper-inner quadrant of left breast in female, estrogen receptor positive New Bag 08/31/2022 9:50 AM EST 150 mg 200 mL/hr heparin injection 500 Units 500 Units, Intravenous, As Needed, Line Care, Starting on Bina 08/31/22 at 0955, Use for Implanted Ports.Indications:Encoun ter for care related to vascular access port,Malignant neoplasm of lower-outer quadrant of left breast of female, estrogen receptor positive Given 08/31/2022 1:32 PM EST 500 Units OLANZapine (zyPREXA) tablet 2.5 mg 2.5 mg, Oral, Once, On Bina 08/31/22 at 0916, For 1 dose, Prior to chemotherapy Caution: Look alike/sound alike drug alertIndications:Maligna nt neoplasm of upper-inner quadrant of left breast in female, estrogen receptor positive Given 08/31/2022 9:25 AM EST 2.5 mg palonosetron (ALOXI) injection 0.25 mg 0.25 mg, Intravenous, Administer over 0.5 Minutes, Once, On Bina 08/31/22 at 0916, For 1 dose, Give 15 - 30 minutes prior to chemotherapy.Indications :Malignant neoplasm of upper-inner quadrant of left breast in female, estrogen receptor positive Given 08/31/2022 9:24 AM EST 0.25 mg pegfilgrastim (NEULASTA ONPRO) on-body injector 6 mg 6 mg, Subcutaneous, Once, On Bina 08/31/22 at 0916, For 1 doseIndications:Malignan t neoplasm of upper-inner quadrant of left breast in female, estrogen receptor positive Given 08/31/2022 11:21 AM EST 6 mg Left Lower Abdomen potassium chloride 10 mEq in 100 mL IVPB 10 mEq, Intravenous, at 100 mL/hr, Administer over 60 Minutes, Every 1 Hour, First dose on Bina 08/31/22 at 0923, For 2 doses, Infuse through central line only. Max infusion rate 20 meq/hr OUTPATIENT/NON-MONITORED UNITS: Potassium Chloride standard bolus infusion rate is a maximum of 10 mEq/hr on unmonitored patients MONITORED UNITS: Potassium Chloride standard bolus infusion rate is a maximum of 20 mEq/hr on ECG monitored patients ONLYIndications:Malignan t neoplasm of upper-inner quadrant of left breast in female, estrogen receptor positive New Bag 08/31/2022 12:16 PM EST 10 mEq 100 mL/hr New Bag 08/31/2022 11:25 AM EST 10 mEq 100 mL/hr sodium chloride 0.9 % infusion 250 mL 250 mL, Intravenous, at 20 mL/hr, Once, On Bina 08/31/22 at 0916, For 1 doseIndications:Malignant neoplasm of upper-inner quadrant of left breast in female, estrogen receptor positive New Bag 08/31/2022 9:25 AM EST 250 mL 20 mL/hr documented in this encounter Additional Health Concerns Assessment Noted Time PHQ-2 Depression Total Score: 2 07/11/20 22 1:07 PM EDT documented as of this encounter Care Teams Powerbuilder Relationship Specialty Start Date End Date Herbert Hair MD [address] [place] [address] [address] [facility] [place] [address] PCP - General Adolescent Medicine 03/03/22 documented as of this encounter
--- OUTSIDE RECORDS SUMMARY | 2024-08-17 15:53 | XMS_ITS | Encounter Summary ---
Author Organization [facility] Address [address] [place] [address] Care Team Providers Care Rotary Rock Drilling Machine Operator Name Role Phone Herbert Hair MD Primary Care Provider + [phone] Reason for Visit * Episode Based Medications (Routine) - Closed Specialty Diagnoses / Procedures Referred By Contgualberto t Referred To Contact Diagnoses Malignant neoplasm of upper-inner quadrant of left breast in female, estrogen receptor positive Procedures [place] DEXAMETHASONE SODIUM PHOS [place] FOSAPREPITANT INJECTION [place] PALONOSETRON HCL [place] DOXORUBIC HCL 10 MG VL CHEMO [place] CYCLOPHOSPHAMIDE 100 MG INJ [place] INJECTION, UDENYCA 0.5 MG [place] INJ PEGFILGRAST EX BIO 0.5MG Bre Crenshaw MD [address] [facility] [address] [place] [address] Phone: tel: fax: Referral ID Status Reason Start Date Expiration Date Visits Re quested Visits Authorized [id number] Closed 07/13/2022 11/02/2022 1 1 Encounter Details Date Type Department Care Team (Latest Contact Info) Description 07/27/2022 10:57 AM EDT - 07/27/2022 11:59 PM EDT Hospital Encounter [facility] [address] [facility] [address] [place] [address] Encounter for care related to vascular access port (Primary Dx); Malignant neoplasm of lower-outer quadrant of left breast of female, estrogen receptor positive; Malignant neoplasm of upper-inner quadrant of left [...] the nostril(s) as directed by provider Daily. amoxicillin-clavul anate (AUGMENTIN) 875-125 MG per tablet TAKE 1 TABLET BY MOUTH EVERY 12 HOURS FOR 7 DAYS 07/20/2022 2 busPIRone (BUSPAR) 7.5 MG tablet Take 15 mg by mouth every night at bedtime. 05/10/2022 3 carvedilol (COREG) 6.25 MG tablet Take 1 tablet by mouth 2 (Two) Times a Day. 60 tablet 11 07/26/2022 3 Dexilant 60 MG capsule Take 60 mg by mouth Every Morning. 11/01/2021 3 fexofenadine (SANTIAGO) 180 MG tablet Take 1 tablet by mouth Daily. 3 levothyroxine (SYNTHROID, LEVOTHROID) 25 MCG tablet Take 1 tablet by mouth Daily. 3 lidocaine-prilocai ne (EMLA) 2.5-2.5 % creamIndications:M alignant neoplasm of upper-inner quadrant of left breast in female, estrogen receptor positive Apply 1 application topically to the appropriate area as directed As Needed (45-60 minutes prior to port access. Cover with saran/plastic wrap.). 30 g 3 07/10/2022 3 nystatin susp + lidocaine viscous (MAGIC MOUTHWASH) oral suspension 5-10 ml swish and spit or swallow QID prn 240 mL 3 07/20/2022 3 OLANZapine (zyPREXA) 5 MG tabletIndications: Malignant neoplasm of upper-inner quadrant of left breast in female, estrogen receptor positive Take 1 tablet by mouth Every Night. Take on days 2, 3 and 4 after chemotherapy. 3 tablet 3 07/10/2022 3 ondansetron (ZOFRAN) 8 MG tabletIndications: Malignant neoplasm of upper-inner quadrant of left breast in female, estrogen receptor positive Take 1 tablet by mouth 3 (Three) Times a Day As Needed for Nausea or Vomiting. 30 tablet 5 07/10/2022 2 polycarbophil 625 MG tablet tablet Take 1 tablet by mouth Daily. 3 potassium chloride 10 MEQ CR tablet Take 2 tablets by mouth Daily. Two tablets 60 tablet 1 07/27/2022 3 Vit-Fe Mahcbjc-NW-QXN ( VITAMIN/MIN +DHA PO) Take 1 tablet by mouth Daily. 3 pseudoephedrine-gu aifenesin (MUCINEX D) 60-600 MG per 12 hr tablet Take 1 tablet by mouth Every 12 (Twelve) Hours. As needed 3 silver sulfadiazine (SILVADENE, SSD) 1 % cream 1 application Daily. 07/03/2022 3 SSD 1 % cream APPLY CREAM TOPICALLY TO AFFECTED AREA ONCE DAILY 07/03/2022 3 telmisartan-hydroc hlorothiazide (MICARDIS HCT) 40-12.5 MG per tablet Take 1 tablet by mouth Every Evening. 11/28/2020 4 vitamin B-12 (CYANOCOBALAMIN) 1000 MCG tablet Take 1 tablet by mouth Daily. 4 Zinc 50 MG capsule Take 50 mg by mouth Daily. 3 documented as of this encounter Progress Notes * Randi Hanson RN - 07/27/2022 11:00 AM EDTEncounter addended by: Randi Hanson RN on: 07/27/2022 3:22 PM Actions taken: Flowsheet accepted documented in this encounter Plan of Treatment Upcoming Encounters Date Type Department Care Team (Late st Contact Info) Description 09/18/2024 3:30 PM EST Office Visit [facility] & [facility] [address] [facility] [address] [place] [address] Bre Crenshaw MD [address] [facility] [address] [place] [address] 12/31/2024 9:00 AM EDT Office Visit [facility] UROLOGY [address] [facility] [address] [address] [place] [address] Oralia Saha APRN [address] [facility] [address] [place] [address] 05/12/2025 1:45 PM EDT Office Visit [facility] CARDI[facility] [address] [facility] [address] [place] [id number] Obed Woodard MD [address] [facility] [address] [place], [place] [id number] documented as of this encounter Visit Diagnoses Diagnosis Encounter for care related to vascular access port- Primary Malignant neoplasm of lower-outer quadrant of left breast of female, estrogen receptor positive Malignant neoplasm of upper-inner quadrant of left [...] Administer over 30 Minutes, Once, On Bina 07/27/22 at 1217, For 1 dose, HAZARDOUS - Handle with careIndications:Bob billingsley neoplasm of upper-inner quadrant of left breast in female, estrogen receptor positive New Bag 07/27/2022 12:38 PM EDT 1,130 mg 561.4 mL/hr dexamethasone (DECADRON) IVPB 12 mg 12 mg, Intravenous, at 200 mL/hr, Administer over 15 Minutes, Once, On Bina 07/27/22 at 1117, For 1 dose, Give 15 to 30 minutes prior to chemotherapy. Administer over 5-15 minutes.Indications:M alignant neoplasm of upper-inner quadrant of left breast in female, estrogen receptor positive New Bag 07/27/2022 11:28 AM EDT 12 mg 200 mL/hr DOXOrubicin (ADRIAMYCIN) chemo injection 112 mg 112 mg (rounded from 112.8 mg = 60 mg/m2 ? 1.88 m2 Treatment Plan BSA from Recorded weight), Intravenous, Administer over 5 Minutes, Once, On Bina 07/27/22 at 1202, For 1 dose, Administer via slow IV push over at least 3-10 minutes through free flowing line; VESICANT; check for blood return periodically. HAZARDOUS - Handle with careIndications:Bob billingsley neoplasm of upper-inner quadrant of left breast in female, estrogen receptor positive Subsequent Bag/Syringe 07/27/2022 12:34 PM EDT 56 mg New Syringe 07/27/2022 12:20 PM EDT 56 mg fosaprepitant (EMEND) 150 mg/100mL NS 150 mg, Intravenous, at 200 mL/hr, Administer over 30 Minutes, Once, On Bina 07/27/22 at 1117, For 1 dose, Give 15 to 30 minutes prior to chemotherapy.Indications :Malignant neoplasm of upper-inner quadrant of left breast in female, estrogen receptor positive New Bag 07/27/2022 11:28 AM EDT 150 mg 200 mL/hr heparin injection 500 Units 500 Units, Intravenous, As Needed, Line Care, Starting on Bina 07/27/22 at 1106, Use for Implanted Ports.Indications:Encoun ter for care related to vascular access port,Malignant neoplasm of lower-outer quadrant of left breast of female, estrogen receptor positive Given 07/27/2022 1:31 PM EDT 500 Units OLANZapine (zyPREXA) tablet 5 mg 5 mg, Oral, Once, On Bina 07/27/22 at 1117, For 1 dose, Prior to chemotherapy Caution: Look alike/sound alike drug alertIndications:Maligna nt neoplasm of upper-inner quadrant of left breast in female, estrogen receptor positive Given 07/27/2022 11:25 AM EDT 5 mg palonosetron (ALOXI) injection 0.25 mg 0.25 mg, Intravenous, Administer over 0.5 Minutes, Once, On Bina 07/27/22 at 1117, For 1 dose, Give 15 - 30 minutes prior to chemotherapy.Indications :Malignant neoplasm of upper-inner quadrant of left breast in female, estrogen receptor positive Given 07/27/2022 11:25 AM EDT 0.25 mg pegfilgrastim (NEULASTA ONPRO) on-body injector 6 mg 6 mg, Subcutaneous, Once, On Bina 07/27/22 at 1117, For 1 doseIndications:Malignan t neoplasm of upper-inner quadrant of left breast in female, estrogen receptor positive Given 07/27/2022 1:33 PM EDT 6 mg Left Lower Abdomen sodium chloride 0.9 % infusion 250 mL 250 mL, Intravenous, at 20 mL/hr, Once, On Bina 07/27/22 at 1117, For 1 doseIndications:Malignan t neoplasm of upper-inner quadrant of left breast in female, estrogen receptor positive New Bag 07/27/2022 11:28 AM EDT 250 mL 20 mL/hr documented in this encounter Additional Health Concerns Assessment Noted Time PHQ-2 Depression Total Score: 2 07/11/20 1:07 PM EDT documented as of this encounter Care Teams Rotary Rock Drilling Machine Operator Relationship Specialty Start Date End Date Herbert Hair MD [address] [facility] [address] [facility] [place] [address] PCP - General Adolescent Medicine 03/03/22 documented as of this encounter
--- OUTSIDE RECORDS SUMMARY | 2024-08-17 15:53 | XMS_ITS | Encounter Summary ---
Author Organization [facility] Address [address] [place] [address] Care Team Providers Care High School Math Teacher Name Role Phone Herbert Hair MD Primary Care Provider Encounter Details Date Type Department Care Team (Late st Contact Info) Description 09/29/2022 Telephone [facility] [address] [facility] [address] [place] [address] Hilda Jarvis, SHELL TRIM OPERATOR [address] [facility] [address] [place] [address] Social History Tobacco Use Types [...] Telephone Encounter - Yanet Preston RN - 09/29/2022 10:06 AM EST Notified Bria Jarvis APRN and we will do two runs of 10meq IV potassium today. * Telephone Encounter - Janette Hartley RN - 09/29/2022 9:57 AM EST Critical Test Results MD: Bria Jarvis APRN Date: 09/29/22 Critical test result: Potassium 2.6 Time results received:09:56 documented in this encounter Plan of Treatment Upcoming Encounters Date Type Department Care Team (Late st Contact Info) Description 09/18/2024 3:30 PM EST Office Visit [facility] [address] [facility] [address] [place] [phone] Bre Crenshaw MD [address] [facility] [address] [place] [address] 12/31/2024 9:00 AM EDT Office Visit [facility] UROLOGY [address] [facility] [address] [place] [address] Oralia Saha APRN [address] [facility] [address] [place] [address] 05/12/2025 1:45 PM EDT Office Visit [facility] C[facility]IOLOG[facility] [address] [facility] [address] [place] [phone] Obed Woodard MD [address] [facility] [address] [place] [address] documented as of this encounter Visit Diagnoses Not on filedocumented in this encounter Additional Health Concerns Assessment Noted Time PHQ-2 Depression Total Score: 2 07/11/20 22 1:07 PM EDT documented as of this encounter Care Teams [employer] Math Teacher Relationship Specialty Start Date End Date Herbert Hair MD [address] [facility] [address] [place] [address] PCP - General Adolescent Medicine 03/03/22 documented as of this encounter
--- OUTSIDE RECORDS SUMMARY | 2024-08-17 15:53 | XMS_ITS | Encounter Summary ---
Author Organization [facility] Address [address] [place] [address] Care Team Providers Care Partnership Development Manager Name Role Phone Herbert Hair MD Primary Care Provider [phone] Reason for Visit * Reason Onset Date Comments INGRID-TRIAGE 08/07/2022 Encounter Details Date Type Department Care Team (Late st Contact Info) Description 08/07/2022 Telephone [facility] HEMATOLOGY & ONCOLOGY [address] [address] Bre Crenshaw MD [address] [place] [id number] INGRID-TRIAGE Social History Tobacco Use Types Packs/Day [...] Telephone Encounter - Yanet Preston RN - 08/07/2022 9:46 AM EST I called the patient and she has had issues under her arm but now she feels a lump that is hard andtender to touch. She also has an area in her skin at her upper groin, private area that is tender to touch. Per Bria Jarvis APRN, she may have abscesses. She has had sore throat and respiratory issues and incisional healing issues and has been on augmentin. She did do covid test and is negative. She feels like she has fluid in her ear from drainage. She does not have fevers. There is no drainage from the lumps. I talked with Bria Jarvis APRN and she can see the patient today at 1pm. Iasked patient if she could come in at 1pm and patient said that she could. I gave message to scheduling. * Telephone Encounter - Floresita Donaldson - 08/07/2022 8:46 AM EST Patient called she has her 3rd round of chemo coming up, she has found 2 lumps one is under her right armpit, it's hard and bigger then a pea, the other one is in her private area, and it's bigger than the other one. Please call. documented in this encounter Plan of Treatment Upcoming Encounters Date Type Department Care Team (Late st Contact Info) Description 09/18/2024 3:30 PM EST Office Visit [facility] HEMATOLOGY & ONCOLOGY [address] [facility] [address] [place] [address] Bre Crenshaw MD [address] [facility] [address] [place] [address] 12/31/2024 9:00 AM EDT Office Visit [facility] UROLOGY [address] [facility] [address] [place] [address] FabianOralia spiveyDWAYNE 1760 [facility] [address] [place], [place] [id number] 05/12/2025 1:45 PM EDT Office Visit [facility] CARDIOLOGY [address] [facility] [address] [place] [address] Obed Woodard MD [address] [facility] [address] [place] [address] documented as of this encounter Visit Diagnoses Not on filedocumented in this encounter Additional Health Concerns Assessment Noted Time PHQ-2 Depression Total Score: 2 07/11/20 22 1:07 PM EDT documented as of this encounter Care Teams Partnership Development Manager Relationship Specialty Start Date End Date Herbert Hair MD [address] [facility] [address] [place] [address] PCP - General Adolescent Medicine 03/03/22 documented as of this encounter
--- OUTSIDE RECORDS SUMMARY | 2024-08-17 15:53 | XMS_ITS | Encounter Summary ---
Author Organization [facility] Address [address] [place] [address] Care Team Providers Care Extrusion Utility Worker Name Role Phone Herbert Hair MD Primary Care Provider + [phone] Reason for Visit * Episode Based Medications (Routine) - Closed Specialty Diagnoses / Procedures Referred By Nasrin t Referred To Contact Diagnoses Malignant neoplasm of upper-inner quadrant of left breast in female, estrogen receptor positive Procedures NH DEXAMETHASONE SODIUM PHOS NH FOSAPREPITANT INJECTION NH PALONOSETRON HCL NH DOXORUBIC HCL 10 MG VL CHEMO NH CYCLOPHOSPHAMIDE 100 MG INJ NH INJECTION, UDENYCA 0.5 MG NH INJ PEGFILGRAST EX BIO 0.5MG Bre Crenshaw MD 1700 [facility] [address] [place] [address] Phone: tel: fax: Referral ID Status Reason Start Date Expiration Date Visits Re quested Visits Authorized [id number] Closed 07/13/2022 11/02/2022 1 1 Encounter Details Date Type Department Care Team (Latest Contact Info) Description 08/17/2022 10:05 AM EST - 08/17/2022 11:59 PM EST Hospital Encounter [facility] [address] [facility] [address] [place] [address] Malignant neoplasm of upper-inner quadrant [...] Day. 2nd time at bedtime. 08/11/2022 4 busPIRone (BUSPAR) 7.5 MG tablet Take 15 [...] tablets 60 tablet 1 07/27/2022 3 Vit-Fe Ohdifuk-KS-AOT ( VITAMIN/MIN +DHA PO) Take 1 tablet by mouth Daily. 3 pseudoephedrine-gu aifenesin (MUCINEX D) 60-600 MG per 12 hr tablet Take 1 tablet by mouth Every 12 (Twelve) Hours. As needed 3 silver sulfadiazine (SILVADENE, SSD) 1 % cream 1 application Daily. 07/03/2022 3 SSD 1 % cream APPLY CREAM TOPICALLY TO AFFECTED AREA ONCE DAILY 07/03/2022 3 sulfamethoxazole-t rimethoprim (BACTRIM DS,SEPTRA DS) 800-160 MG per tablet Take 1 tablet by mouth 2 (Two) Times a Day. 1 tab BID for 10 days 20 tablet 08/07/2022 3 telmisartan-hydroc hlorothiazide (MICARDIS HCT) 40-12.5 MG per tablet Take 1 tablet by mouth Every Evening. 11/28/2020 4 vitamin B-12 (CYANOCOBALAMIN) 1000 MCG tablet Take 1 tablet by mouth Daily. 4 Zinc 50 MG capsule Take 50 mg by mouth Daily. 3 documented as of this encounter Plan of Treatment Upcoming Encounters Date Type Department Care Team (Late st Contact Info) Description 09/18/2024 3:30 PM EST Office Visit [facility] HEMATOLOGY & ONCOLOGY [address] [facility] [address] [place] [phone] Bre Crenshaw MD [address] [facility] [address] [place] [address] 12/31/2024 9:00 AM EDT Office Visit [facility] UROLOGY [address] [facility] [address] [place] [address] Oralia Saha APRN [address]60 [facility] [address] [place] [address] 05/12/2025 1:45 PM EDT Office Visit [facility] CARDIOLOGY [address] [facility] [address] [place] [id number] Obed Woodard MD [address] [facility] [address] [place], [place] [phone] documented as of this encounter Procedures Procedure Name Priority Date/Time Associated Diagnosis Comments CBC WITH AUTO DIFFERENTIAL Routine 08/17/2022 10:16 AM EST Malignant neoplasm of upper-inner quadrant of left breast in female, estrogen receptor positive CBC AND DIFFERENTIAL Routine 08/17/2022 10:16 AM EST Malignant neoplasm of upper-inner quadrant of left breast in female, estrogen receptor positive COMPREHENSIVE METABOLIC PANEL Routine 08/17/2022 10:16 AM EST Malignant neoplasm of upper-inner quadrant of left breast in female, estrogen receptor positive documented in this encounter Results * (ABNORMAL) CBC Auto Differential (08/17/2022 10:16 AM EST) Pathologist [facility] WBC 5.56 3.40 - 10.80 10*3/mm3 08/17/2022 10:32 AM EST [facility] RBC 4.29 3.77 - 5.28 10*6/mm3 08/17/2022 10:32 AM EST [facility] Hemoglobin 13.6 12.0 - 15.9 g/dL 08/17/2022 10:32 AM [facility] Hematocrit 40.3 34.0 - 46.6 % 08/17/2022 10:32 AM [facility] MCV 93.9 79.0 - 97.0 fL 08/17/2022 10:32 AM EST [facility] MCH 31.7 26.6 - 33.0 pg 08/17/2022 10:32 AM EST [facility] MCHC 33.7 31.5 - 35.7 g/dL 08/17/2022 10:32 AM EST [facility] RDW 14.4 12.3 - 15.4 % 08/17/2022 10:32 AM [facility] RDW-SD 48.4 37.0 - 54.0 fl 08/17/2022 10:32 AM [facility] MPV 10.7 6.0 - 12.0 fL 08/17/2022 10:32 AM [facility] Platelets 165 140 - 450 10*3/mm3 08/17/2022 10:32 AM [facility] Neutrophil % 51.2 42.7 - 76.0 % 08/17/2022 10:32 AM EST [facility] Lymphocyte % 34.0 19.6 - 45.3 % 08/17/2022 10:32 AM EST [facility] Monocyte % 13.3(H) 5.0 - 12.0 % 08/17/2022 10:32 AM EST [facility] Eosinophil % 0.4 0.3 - 6.2 % 08/17/2022 10:32 AM EST [facility] Basophil % 0.7 0.0 - 1.5 % 08/17/2022 10:32 AM EST [facility] Immature Grans % 0.4 0.0 - 0.5 % 08/17/2022 10:32 AM EST [facility] Neutrophils, Absolute 2.85 1.70 - 7.00 10*3/mm3 08/17/2022 10:32 AM EST [facility] Lymphocytes, Absolute 1.89 0.70 - 3.10 10*3/mm3 08/17/2022 10:32 AM EST [facility] Monocytes, Absolute 0.74 0.10 - 0.90 10*3/mm3 08/17/2022 10:32 AM EST [facility] Eosinophils, Absolute 0.02 0.00 - 0.40 10*3/mm3 08/17/2022 10:32 AM EST [facility] Basophils, Absolute 0.04 0.00 - 0.20 10*3/mm3 08/17/2022 10:32 AM EST [facility] Immature Grans, Absolute 0.02 0.00 - 0.05 10*3/mm3 08/17/2022 10:32 AM EST [facility] Blood Port / Unknown 08/17/2022 10 :16 AM EST 08/17/2022 10:30 AM EST Bre Crenshaw MD LAB BLOOD ORDERABLES Final Resul t [facility]
[address] [place] [address], * (ABNORMAL) Comprehensive metabolic panel (08/17/2022 10:16 AM EST) Glucose 130(H) 65 - 99 mg/dL 08/17/2022 11:15 AM [facility] BUN 14 6 - 20 mg/dL 08/17/2022 11:15 AM [facility] Creatinine 1.04(H) 0.57 - 1.00 mg/dL 08/17/2022 11:15 AM [facility] Sodium 137 136 - 145 mmol/L 08/17/2022 11:15 AM [facility] Potassium 4.1 3.5 - 5.2 mmol/L 08/17/2022 11:15 AM [facility] Comment:Slight hemolysis det ected by analyzer. Results may be affected. Chloride 101 98 - 107 mmol/L 08/17/2022 11:15 AM [facility] CO2 26.0 22.0 - 29.0 mmol/L 08/17/2022 11:15 AM [facility] Calcium 9.4 8.6 - 10.5 mg/dL 08/17/2022 11:15 AM [facility] Total Protein 7.6 6.0 - 8.5 g/dL 08/17/2022 11:15 AM [facility] Albumin 4.80 3.50 - 5.20 g/dL 08/17/2022 11:15 AM [facility] ALT (SGPT) 25 1 - 33 U/L 08/17/2022 11:15 AM [facility] AST (SGOT) 13 1 - 32 U/L 08/17/2022 11:15 AM [facility] Alkaline Phosphatase 74 39 - 117 U/L 08/17/2022 11:15 AM [facility] Total Bilirubin 0.4 0.0 - 1.2 mg/dL 08/17/2022 11:15 AM [facility] Globulin 2.8 gm/dL 08/17/2022 11:15 AM [facility] Comment:Calculated Result A/G Ratio 1.7 g/dL 08/17/2022 11:15 AM EST [facility] BUN/Creatinine Ratio 13.5 7.0 - 25.0 08/17/2022 11:15 AM EST [facility] Anion Gap 10.0 5.0 - 15.0 mmol/L 08/17/2022 11:15 AM EST [facility] eGFR 66.4 >60.0 mL/min/1. 73 08/17/2022 11:15 AM EST [facility] Comment:National Kidney Foun dation and [place] Society of Nephrology (ASN) Task Force recommended calculation based on the Chronic Kidney Disease Epidemiology Collaboration (CKD-EPI) equation refit without adjustment for race. Blood Port / Unknown 08/17/2022 10 :16 AM EST 08/17/2022 10:37 AM EST Narrative [facility] - 08/17/2022 11:15 AM EST GFR Normal >60 Chronic Kidney Disease <60 Kidney Failure <15 Bre Crenshaw MD LAB BLOOD ORDERABLES Final Resul t [facility]
[address] [place] [address], documented in this encounter Visit Diagnoses Diagnosis [...] BSA from Recorded weight), Intravenous, Administer over 30 Minutes, Once, On Bina 08/17/22 at 1225, For 1 dose, HAZARDOUS - Handle with careIndications:Malign ant neoplasm of upper-inner quadrant of left breast in female, estrogen receptor positive New Bag 08/17/2022 1:10 PM EST 1,130 mg 562 mL/hr dexamethasone (DECADRON) IVPB 12 mg 12 mg, Intravenous, at 200 mL/hr, Administer over 15 Minutes, Once, On Bina 08/17/22 at 1125, For 1 dose, Give 15 to 30 minutes prior to chemotherapy. Administer over 5-15 minutes.Indications:Ma lignant neoplasm of upper-inner quadrant of left breast in female, estrogen receptor positive New Bag 08/17/2022 11:40 AM EST 12 mg 200 mL/hr DOXOrubicin (ADRIAMYCIN) chemo injection 112 mg 112 mg (rounded from 112.8 mg = 60 mg/m2 ? 1.88 m2 Treatment Plan BSA from Recorded weight), Intravenous, Administer over 5 Minutes, Once, On Bina 08/17/22 at 1210, For 1 dose, Administer via slow IV push over at least 3-10 minutes through free flowing line; VESICANT; check for blood return periodically. HAZARDOUS - Handle with careIndications:Malign ant neoplasm of upper-inner quadrant of left breast in female, estrogen receptor positive Subsequent Bag/Syringe 08/17/2022 12:52 PM EST 56 mg New Syringe 08/17/2022 12:50 PM EST 56 mg fosaprepitant (EMEND) 150 mg/100mL NS 150 mg, Intravenous, at 200 mL/hr, Administer over 30 Minutes, Once, On Bina 08/17/22 at 1125, For 1 dose, Give 15 to 30 minutes prior to chemotherapy.Indications :Malignant neoplasm of upper-inner quadrant of left breast in female, estrogen receptor positive New Bag 08/17/2022 11:55 AM EST 150 mg 200 mL/hr heparin injection 500 Units 500 Units, Intravenous, As Needed, Line Care, Starting on Bina 08/17/22 at 1344, Use for Implanted Ports.Indications:Encoun ter for care related to vascular access port,Malignant neoplasm of lower-outer quadrant of left breast of female, estrogen receptor positive Given 08/17/2022 2:05 PM EST 500 Units OLANZapine (zyPREXA) tablet 2.5 mg 2.5 mg, Oral, Once, On Bina 08/17/22 at 1125, For 1 dose, Prior to chemotherapy Caution: Look alike/sound alike drug alertIndications:Maligna nt neoplasm of upper-inner quadrant of left breast in female, estrogen receptor positive Given 08/17/2022 11:37 AM EST 0.25 mg palonosetron (ALOXI) injection 0.25 mg 0.25 mg, Intravenous, Administer over 0.5 Minutes, Once, On Bina 08/17/22 at 1125, For 1 dose, Give 15 - 30 minutes prior to chemotherapy.Indications :Malignant neoplasm of upper-inner quadrant of left breast in female, estrogen receptor positive Given 08/17/2022 11:38 AM EST 0.25 mg pegfilgrastim (NEULASTA ONPRO) on-body injector 6 mg 6 mg, Subcutaneous, Once, On Bina 08/17/22 at 1125, For 1 doseIndications:Malignan t neoplasm of upper-inner quadrant of left breast in female, estrogen receptor positive Given 08/17/2022 2:00 PM EST 6 mg Right Upper Abdomen sodium chloride 0.9 % infusion 250 mL 250 mL, Intravenous, at 20 mL/hr, Once, On Bina 08/17/22 at 1125, For 1 doseIndications:Malignan t neoplasm of upper-inner quadrant of left breast in female, estrogen receptor positive New Bag 08/17/2022 11:37 AM EST 250 mL 20 mL/hr documented in this encounter Additional Health Concerns Assessment Noted Time PHQ-2 Depression Total Score: 2 07/11/20 1:07 PM EDT documented as of this encounter Care Teams Extrusion Utility Worker Relationship Specialty Start Date End Date Herbert Hair MD [address] [place] [address] [address] [facility] [place] [address] PCP - General Adolescent Medicine 03/03/22 documented as of this encounter
--- OUTSIDE RECORDS SUMMARY | 2024-08-17 15:53 | XMS_ITS | Encounter Summary ---
Author Organization [facility] Address [address] [place] [address] Care Team Providers Care Splicing Supervisor Name Role Phone Herbert Hair MD Primary Care Provider + [phone] Encounter Details Date Type Department Care Team (Late st Contact Info) Description 08/29/2022 MDT Assessment [facility]EMAT[facility] [address] [facility] [address] [place] [address] An Bell MD [address] [facility] [address] [place] [id number] Social History Tobacco Use Types Packs/Day Years [...] Visit [facility] [address] [facility] [address] [place] [address] Bre Crenshaw MD [address] [facility] [address] [place] [address] 12/31/2024 9:00 AM EDT Office Visit [facility] UR[facility] [address] [facility] [address] [place] [address] Oralia Saha APRN [address]60 [facility] [address] [place] [address] 05/12/2025 1:45 PM EDT Office Visit [facility] C[facility] [address] [facility] [address] [place] [phone] Obed Woodard MD [address] [facility] [address] [place], [place] [phone] documented as of this encounter Visit Diagnoses Not on filedocumented in this encounter Additional Health Concerns Infection Onset Date Last Indicated Resolved Time 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 [address] [place] [address] PCP - General Adolescent Medicine 03/03/22 documented as of this encounter
--- OUTSIDE RECORDS SUMMARY | 2024-08-17 15:53 | XMS_ITS | Encounter Summary ---
Author Organization [facility] Address [address] [place] [address] Care Team Providers Care Server Software Engineer Name Role Phone Herbert Hair MD Primary Care Provider [phone] Reason for Visit * Reason Onset Date Comments Med Refill 08/21/2022 Encounter Details Date Type Department Care Team (Late st Contact Info) Description 08/21/2022 Refill [facility] HEMATOLOGY & ONCOLOGY 17[address] [facility] [address] [place] [phone] Hilda Jarvis, TRADING ASSISTANT [address] [facility] [address] [place] [address] Malignant neoplasm of upper-inner quadrant of left breast in female, estrogen receptor positive (Primary Dx); CINV (chemotherapy-induced nausea and vomiting) Social History Tobacco Use Types Packs/Day Years [...] [facility] [address] [facility] [address] [place] [address] Bre Crenshaw MD [address] [facility] [address] [place] [address] 12/31/2024 9:00 AM EDT Office Visit [facility] UROLOG[facility] [address] [facility] [address] [place] [address] Oralia Saha APRN [address]60 [facility] [address] [place] [address] 05/12/2025 1:45 PM EDT Office Visit [facility] CARD[facility] [address] [facility] [address] [place] [address] Obed Woodard MD [address]20 [facility] [address] [place], [place] [phone] documented as of this encounter Visit Diagnoses Diagnosis Malignant neoplasm of upper-inner quadrant of left breast in female, estrogen receptor positive- Primary CINV (chemotherapy-induced nausea and vomiting) documented in this encounter Additional Health Concerns Assessment Noted Time PHQ-2 Depression Total Score: 2 07/11/20 22 1:07 PM EDT documented as of this encounter Care Teams Server Software Engineer Relationship Specialty Start Date End Date Herbert Hair MD [address] [facility] [address] [place] [address] PCP - General Adolescent Medicine 03/03/22 documented as of this encounter
--- OUTSIDE RECORDS SUMMARY | 2024-08-17 15:53 | XMS_ITS | Encounter Summary ---
Author Organization [facility] Address [address] [place] [address] Care Team Providers Care Scale Shooter Name Role Phone Herbert Hair MD Primary Care Provider [phone] Reason for Visit * Reason Onset Date Comments RESCHEDULE REQUEST 08/01/2022 Encounter Details Date Type Department Care Team (Late st Contact Info) Description 08/01/2022 Telephone [facility] [address] [address] Bre Crenshaw MD [address] [place] [phone] RESCHEDULE REQUEST Social History Tobacco Use Types Packs/Day [...] * Telephone Encounter - Lucy Contreras - 08/01/2022 4:02 PM EDT Spoke with patient, she is hernadnez we are rescheduling her to 08/31/22. * Telephone Encounter - Claudia Awan RegSched Rep - 08/01/2022 9:30 AM EDT Caller: Leydi Brown Relationship to patient: Self Best call back number: [phone] Type of visit: LAB, FOLLOW UP, AND INFUSION Requested date: 08/21 If rescheduling, when is the original appointment: 08/23 Additional notes: PLEASE CALL ONCE R/S. documented in this encounter Plan of Treatment Upcoming Encounters Date Type Department Care Team (Late st Contact Info) Description 09/18/2024 3:30 PM EST Office Visit [facility] [address] [facility] [address] [place] [address] Bre Crenshaw MD [address]00 [facility] [address] [place] [address] 12/31/2024 9:00 AM EDT Office Visit [facility] [address] [facility] [address] [place], [place] [phone] Oralia Saha APRN [address] [facility] [address] [place] [address] 05/12/2025 1:45 PM EDT Office Visit [facility] [address] [facility] [address] [place] [address] Obed Woodard MD [address] [facility] [address] [place] [address] documented as of this encounter Visit Diagnoses Not on filedocumented in this encounter Additional Health Concerns Assessment Noted Time PHQ-2 Depression Total Score: 2 07/11/20 22 1:07 PM EDT documented as of this encounter Care Teams Scale Shooter Relationship Specialty Start Date End Date Herbert Hair MD [address] [facility] [address] [place] [address] PCP - General Adolescent Medicine 03/03/22 documented as of this encounter
--- OUTSIDE RECORDS SUMMARY | 2024-08-17 15:53 | XMS_ITS | Encounter Summary ---
Author Organization [facility] Address [address] [place] [address] Care Team Providers Care Mining Helper Name Role Phone Herbert Hair MD Primary Care Provider [phone] Encounter Details Date Type Department Care Team (Late st Contact Info) Description 07/27/2022 10:15 AM EDT Office Visit [facility] HEMATOLOGY & ONCOLOGY 17[address] [facility] [address] [place] [phone] Bre Crenshaw MD 1700 [facility] [address] [place] [id number] Malignant neoplasm of upper-inner quadrant of left [...] Sign Reading Time Taken Comments Blood Pressure 139/88 07/27/2022 10:11 AM EDT Pulse 75 07/27/2022 10:11 AM EDT Temperature 36.3 ??C (97.3 ??F) 07/27/2022 10:11 AM E DT Respiratory Rate 16 07/27/2022 10:11 AM EDT Oxygen Saturation 99% 07/27/2022 10:11 AM EDT Inhaled Oxygen Concentration - - Weight 88 kg (194 lb) 07/27/2022 10:11 AM EDT Height 154.9 cm (5' 0.98 ) 07/27/2022 10:11 AM E DT Body Mass Index 36.68 07/27/2022 10:11 AM EDT documented in this encounter Progress Notes * Bre Crenshaw MD - 07/27/2022 10:15 AM EDT PROBLEM LIST: 1. 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 She had her first dose of chemotherapy treatment 2 weeks ago. She had some mouth sores and magic mouthwash was sent. She did not have much nausea. She cut the Zyprexa dose in half for the second 2 days of taking it and this made her less drowsy the following day. Overall she did did not have any major toxicities. Objective BP 139/88 Pulse 75 Temp 97.3 ??F (36.3 ??C) (Temporal) Resp 16 Ht 154.9 cm (60.98 ) Wt 88kg (194 lb) SpO2 99% BMI 36.68 kg/m?? Performance Status: ECOG score: 0 General: well appearing female in no acute distress Neuro: alert and oriented HEENT: sclera anicteric, oropharynx clear Lymphatics: no cervical, supraclavicular, or axillary adenopathy Chest: left mastectomy wound with 1 cm open area, no drainage Abdomen: soft, nontender, nondistended. No palpable organomegaly Extremeties: no lower extremity edema Skin: no rashes, lesions, bruising, or petechiae Psych: mood and affect appropriate I have reexamined the patient and the results are consistent with the previously documented exam. Bre Crenshaw MD RECENT LABS: Lab Results Component Value Date WBC 10.08 07/26/2022 HGB 12.5 07/26/2022 HCT 36.1 07/26/2022 MCV 90.7 07/26/2022 PLT 224 07/26/2022 Lab Results Component Value Date GLUCOSE 132 (H) 07/26/2022 BUN 9 07/26/2022 CREATININE 0.83 07/26/2022 BCR 10.8 07/26/2022 K 2.8 (L) 07/26/2022 CO2 30.0 (H) 07/26/2022 CALCIUM 9.0 07/26/2022 ALBUMIN 4.20 07/26/2022 AST 15 07/26/2022 ALT 19 07/26/2022 Adult Transthoracic Echo Complete W/ Cont if Necessary Per Protocol ??? Left ventricular ejection fraction appears to be 61 - 65%. Left ventricular systolic function is normal. ??? Borderline global longitudinal strain of -17.3% ??? No significant valvular disease. ??? There is no evidence of pericardial effusion. I personally reviewed the imaging studies. ASSESSMENT AND PLAN: Leydi Brown is a 47 y.o. female with a T2 N1 M0 ER positive NV positive HER2 negative invasive carcinoma of the left breast. She has done fairly well with her first dose of chemotherapy. She has magic mouth wash to use as needed. Otherwise no significant nausea. It is fine if she reduces her Zyprexa dose to 2.5 mg to minimize sedation. We discussed that the first cycle is generally a pretty good indicator of what she canexpect with future treatments, but fatigue can be cumulative. We will proceed with cycle 2 today. She has a slowly healing chest wall incision. No evidence of active infection at this point. Cardiac risk: Seen by cardiology. She was switched to carvedilol from propranolol. There is a theoretical drug interaction with Adriamycin that could decrease the clearance of Adriamycin. I discussedthis with Dr. Woodard. We will do more research on this but for now she will just switch back to taking propranolol. Follow-up in 2 weeks. Bre Crenshaw MD [facility] Hematology and Oncology 07/27/2022 CC: documented in this encounter Plan of Treatment Upcoming Encounters Date Type Department Care Team (Late st Contact Info) Description 09/18/2024 3:30 PM EST Office Visit [facility] HEMATOLOGY & ONCOLOGY [address] [facility] [address] [place] [address] Bre Crenshaw MD [address] [facility] [address] [place] [address] 12/31/2024 9:00 AM EDT Office Visit [facility] UROLOGY [address] [facility] [address] [place] [address] Oralia Saha APRN 1760 [facility] [address] [place] [address] 05/12/2025 1:45 PM EDT Office Visit [facility] CARDIOLOGY [address] [facility] [address] [place] [phone] Obed Woodard MD [address] [facility] [address] [place], [place] [phone] documented as of this encounter Results * (ABNORMAL) Comprehensive metabolic panel (08/17/2022 10:16 AM EST) Glucose 130(H) 65 - 99 mg/dL 08/17/2022 11:15 AM [facility] BUN 14 6 - 20 mg/dL 08/17/2022 11:15 AM [facility] Creatinine 1.04(H) 0.57 - 1.00 mg/dL 08/17/2022 11:15 AM [facility] Sodium 137 136 - 145 mmol/L 08/17/2022 11:15 AM [facility] Potassium 4.1 3.5 - 5.2 mmol/L 08/17/2022 11:15 AM [facility] Comment:Slight hemolysis det ected by analyzer. Results may be affected. Chloride 101 98 - 107 mmol/L 08/17/2022 11:15 AM [facility] CO2 26.0 22.0 - 29.0 mmol/L 08/17/2022 11:15 AM [facility] Calcium 9.4 8.6 - 10.5 mg/dL 08/17/2022 11:15 AM [facility] Total Protein 7.6 6.0 - 8.5 g/dL 08/17/2022 11:15 AM [facility] Albumin 4.80 3.50 - 5.20 g/dL 08/17/2022 11:15 AM [facility] ALT (SGPT) 25 1 - 33 U/L 08/17/2022 11:15 AM [facility] AST (SGOT) 13 1 - 32 U/L 08/17/2022 11:15 AM [facility] Alkaline Phosphatase 74 39 - 117 U/L 08/17/2022 11:15 AM [facility] Total Bilirubin 0.4 0.0 - 1.2 mg/dL 08/17/2022 11:15 AM [facility] Globulin 2.8 gm/dL 08/17/2022 11:15 AM [facility] Comment:Calculated Result A/G Ratio 1.7 g/dL 08/17/2022 11:15 AM EST [facility] BUN/Creatinine Ratio 13.5 7.0 - 25.0 08/17/2022 11:15 AM EST [facility] Anion Gap 10.0 5.0 - 15.0 mmol/L 08/17/2022 11:15 AM EST [facility] eGFR 66.4 >60.0 mL/min/1. 73 08/17/2022 11:15 AM EST [facility] Comment:National Kidney Foun dation and [place] Society of Nephrology (ASN) Task Force recommended calculation based on the Chronic Kidney Disease Epidemiology Collaboration (CKD-EPI) equation refit without adjustment for race. Blood Port / Unknown 08/17/2022 10 :16 AM EST 08/17/2022 10:37 AM EST Narrative [facility] - 08/17/2022 11:15 AM EST GFR Normal >60 Chronic Kidney Disease <60 Kidney Failure <15 us Bre Crenshaw MD LAB BLOOD ORDERABLES Final Resul t [facility]
[address] [place] [address], documented in this encounter Visit Diagnoses Diagnosis Malignant neoplasm of upper-inner quadrant of left breast in female, estrogen receptor positive- Primary documented in this encounter Additional Health Concerns Assessment Noted Time PHQ-2 Depression Total Score: 2 07/11/20 22 1:07 PM EDT documented as of this encounter Care Teams Mining Helper Relationship Specialty Start Date End Date Herbert Hair MD [address] [place] [address] [address] [facility] [address] PCP - General Adolescent Medicine 03/03/22 documented as of this encounter
--- OUTSIDE RECORDS SUMMARY | 2024-08-17 15:53 | XMS_ITS | Encounter Summary ---
Author Organization [facility] Address [address] [place] [address] Care Team Providers Care Stay Cutter Name Role Phone Herbert Hair MD Primary Care Provider [phone] Reason for Visit * Reason Onset Date Comments Med Refill 09/18/2022 Encounter Details Date Type Department Care Team (Late st Contact Info) Description 09/18/2022 Refill [facility] HEMATOLOGY & ONCOLOGY [address] [facility] [address] [place] [phone] Hilda Jarvis, MARINE OILER [address] [facility] [address] [place] [address] Malignant neoplasm of upper-inner quadrant of left breast in female, estrogen receptor positive (Primary Dx); Cancer related pain Social History Tobacco Use Types Packs/Day Years [place] [facility] [place] [place] [facility] [address] [facility] [address] [place] [address] Bre Crenshaw MD [address] [facility] [address] [place] [address] 12/31/2024 9:00 AM EDT Office Visit [facility] UROLOGY [address] [facility] [address] [place] [address] Oralia Saha APRN [address] [facility] [address] [place] [address] 05/12/2025 1:45 PM EDT Office Visit [facility] CARDIOLOGY [address] [facility] [address] [place] [address] Obed Woodard MD [address] [facility] [address] [place] [address] documented as of this encounter Visit Diagnoses Diagnosis Malignant neoplasm of upper-inner quadrant of left breast in female, estrogen receptor positive- Primary Cancer related pain documented in this encounter Additional Health Concerns Assessment Noted Time PHQ-2 Depression Total Score: 2 07/11/20 22 1:07 PM EDT documented as of this encounter Care Teams Stay Cutter Relationship Specialty Start Date End Date Herbert Hair MD [address] [facility] [address] [place] [address] PCP - General Adolescent Medicine 03/03/22 documented as of this encounter
--- OUTSIDE RECORDS SUMMARY | 2024-08-17 15:53 | XMS_ITS | Encounter Summary ---
Author Organization [facility] Address [address] [place] [address] Care Team Providers Care Link Trainer Maintenance Worker Name Role Phone Herbert Hair MD Primary Care Provider Encounter Details Date Type Department Care Team (Late st Contact Info) Description 09/14/2022 9:30 AM EST Office Visit [facility] HEMATOLOGY & ONCOLOGY [address] [facility] [address] [place] [phone] Hilda Jarvis, FILLER ROOM ATTENDANT [address] [facility] [address] [place] [address] Malignant neoplasm of upper-inner quadrant of left [...] Sign Reading Time Taken Comments Blood Pressure 160/89 09/14/2022 9:32 AM EST Pulse 79 09/14/2022 9:32 AM EST Temperature 36.3 ??C (97.3 ??F) 09/14/2022 9:32 AM ES T Respiratory Rate 20 09/14/2022 9:32 AM EST Oxygen Saturation 97% 09/14/2022 9:32 AM EST Inhaled Oxygen Concentration - - Weight 88.9 kg (196 lb) 09/14/2022 9:32 AM EST Height 154.9 cm (5' 1 ) 09/14/2022 9:32 AM EST Body Mass Index 37.03 09/14/2022 9:32 AM EST documented in this encounter Progress Notes * Hilda Jarvis, FILLER ROOM ATTENDANT - 09/14/2022 9:30 AM EST PROBLEM LIST: 1. [id number] ER+ (90%), ME+ (10%), Her2 negative (1+) invasive ductal carcinoma [...] Brown returns for follow-up. She has completed 4 cycles of dose dense AC. She continues to have increased anxiety prior to treatment. She continues on BuSpar 15 mg twice a day. She remains anxious and tearful despite increase in Buspar. Objective BP 160/89 Pulse 79 Temp 97.3 ??F (36.3 ??C) Resp 20 Ht 154.9 cm (61 ) Wt 88.9 kg (196 lb) SpO2 97% BMI 37.03 kg/m?? Vitals: 09/14/22 0932 PainSc: 0-No pain Comment: +anxious, crying ECOG score: 0 General: well appearing female [...] with the previously documented exam. Hilda Jarvis, FILLER ROOM ATTENDANT RECENT LABS: Lab Results Component Value Date WBC 3.72 09/14/2022 HGB 10.3 (L) 09/14/2022 HCT 30.6 (L) 09/14/2022 MCV 98.1 (H) 09/14/2022 PLT 235 09/14/2022 Lab Results Component Value Date GLUCOSE 136 (H) 09/14/2022 BUN 8 09/14/2022 CREATININE 0.75 09/14/2022 BCR 10.7 09/14/2022 K 3.6 09/14/2022 CO2 29.0 09/14/2022 CALCIUM 9.4 09/14/2022 ALBUMIN 4.40 09/14/2022 AST 19 09/14/2022 ALT 27 09/14/2022 ASSESSMENT AND PLAN: Leydi Brown is a 47 y.o. 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 She has completed 4 cycles of dose dense AC. We will proceed with cycle 1 of dose dense Taxol today. We did discuss that this can be associated with increased muscle and bone pain, as well as peripheral neuropathy. Sore throat: Continue to use Magic mouthwash as needed. Chemotherapy-induced nausea: Continue Zofran and Compazine as needed. Anxiety: Continue 30 mg of buspirone as needed in the days prior to chemotherapy. Cardiac risk: Seen by cardiology. She continues on propranolol for blood pressure. Lymphedema left upper extremity: Continue working with occupational therapy and wearing compressionsleeve. She would benefit from compression pump. Follow-up in 2 weeks. Hilda Jarvis APRN [facility] Hematology and Oncology 09/14/2022 and continue CC: documented in this encounter Plan of Treatment Upcoming Encounters Date Type Department Care Team (Late st Contact Info) Description 09/18/2024 3:30 PM EST Office Visit [facility] HEMATOLOGY & ONCOLOGY [address] [facility] [address] [place] [phone] Bre Crenshaw MD [address] [facility] [address] [place] [address] 12/31/2024 9:00 AM EDT Office Visit [facility] UROLOGY [address] [facility] [address] [place] [address] Oralia Saha APRN [address] [facility] [address] [place] [address] 05/12/2025 1:45 PM EDT Office Visit [facility] CARDIOLOGY [address] [facility] [address] [place] [phone] Obed Woodard MD [address]20 [facility] [address] [place], [place] [phone] documented as of this encounter Results * (ABNORMAL) Comprehensive metabolic panel (09/29/2022 8:36 AM EST) [facility] Glucose 165(H) 65 - 99 mg/dL 09/29/2022 9:57 AM EST [facility] BUN 13 6 - 20 mg/dL 09/29/2022 9:57 AM [facility] Creatinine 0.70 0.57 - 1.00 mg/dL 09/29/2022 9:57 AM [facility] Sodium 140 136 - 145 mmol/L 09/29/2022 9:57 AM [facility] Potassium 2.6(LL) 3.5 - 5.2 mmol/L 09/29/2022 9:57 AM [facility] Chloride 100 98 - 107 mmol/L 09/29/2022 9:57 AM [facility] CO2 29.0 22.0 - 29.0 mmol/L 09/29/2022 9:57 AM [facility] Calcium 9.4 8.6 - 10.5 mg/dL 09/29/2022 9:57 AM [facility] Total Protein 6.7 6.0 - 8.5 g/dL 09/29/2022 9:57 AM [facility] Albumin 4.4 3.5 - 5.2 g/dL 09/29/2022 9:57 AM [facility] ALT (SGPT) 41(H) 1 - 33 U/L 09/29/2022 9:57 AM [facility] AST (SGOT) 32 1 - 32 U/L 09/29/2022 9:57 AM [facility] Alkaline Phosphatase 90 39 - 117 U/L 09/29/2022 9:57 AM [facility] Total Bilirubin 0.4 0.0 - 1.2 mg/dL 09/29/2022 9:57 AM [facility] Globulin 2.3 gm/dL 09/29/2022 9:57 AM [facility] Comment:Calculated Result A/G Ratio 1.9 g/dL 09/29/2022 9:57 AM [facility] BUN/Creatinine Ratio 18.6 7.0 - 25.0 09/29/2022 9:57 AM [facility] Anion Gap 11.0 5.0 - 15.0 mmol/L 09/29/2022 9:57 AM [facility] eGFR 106.8 >60.0 mL/min/1. 73 09/29/2022 9:57 AM EST [facility] Comment:National Kidney Foun dation and [place] Society of Nephrology (ASN) Task Force recommended calculation based on the Chronic Kidney Disease Epidemiology Collaboration (CKD-EPI) equation refit without adjustment for race. Blood Port / Unknown 09/29/2022 8: 36 AM EST 09/29/2022 8:57 AM EST Narrative [facility] - 09/29/2022 9:57 AM EST GFR Normal >60 Chronic Kidney Disease <60 Kidney Failure <15 Hilda Jarvis FILLER ROOM ATTENDANT LAB BLOOD ORDERABLES Final Result [facility]
[address] [place] [address], documented in this encounter Visit Diagnoses Diagnosis Malignant neoplasm of upper-inner quadrant of left breast in female, estrogen receptor positive- Primary documented in this encounter Additional Health Concerns Assessment Noted Time PHQ-2 Depression Total Score: 2 07/11/20 22 1:07 PM EDT documented as of this encounter Care Teams Link Trainer Maintenance Worker Relationship Specialty Start Date End Date Herbert Hair MD [address] [place] [address] [address] PCP - General Adolescent Medicine 03/03/22 documented as of this encounter
--- OUTSIDE RECORDS SUMMARY | 2024-08-17 15:53 | XMS_ITS | Encounter Summary ---
Author Organization [facility] Address [address] [place] [address] Care Team Providers Care Creel Operator Name Role Phone Herbert Hair MD Primary Care Provider [phone] Reason for Visit * Reason Comments OT Discharge Encounter Details Date Type Department Care Team (Late st Contact Info) Description 09/04/2022 Documentation [facility] OUTPATIENT OCCUPATIONAL THERAPY [address] [place] [address] Hilda Atkinson OTR/L [address] [place] [address] OT Discharge Social History Tobacco Use Types Packs/Day Years [...] on file documented as of this encounter Discharge Summaries * Hilda Atkinson OTR/Xi - 09/04/2022 3:27 PM EST Outpatient Occupational Therapy Discharge Summary Patient Name: Leydi Brown : 1975 Today's Date: 09/04/2022 Visit Date: 09/04/2022 OP OT Discharge Summary Date of Discharge: 09/04/22 Discharge Instructions: Pt is being d/c from OP OT as she has not been seen in clinic for >30 days. If further tx is indicated, I would be happy to see pt again with a new referral. It has been a pleasure being part of Ms. Brown care. CHRIS Gamez/Xi 09/04/2022 documented in this encounter Plan of Treatment Upcoming Encounters Date Type Department Care Team (Late st Contact Info) Description 09/18/2024 3:30 PM EST Office Visit [facility] HEMATOLOGY & ONCOLOGY [address] [facility] [address] [place] [phone] Bre Crenshaw MD [address] [facility] [address] [place] [address] 12/31/2024 9:00 AM EDT Office Visit [facility] UROLOGY [address] [facility] [address] [place] [address] Oralia Saha APRN [address] [facility] [address] [place], [place] [id number] 05/12/2025 1:45 PM EDT Office Visit [facility] CARDIOLOGY [address] [facility] [address] [place] [phone] Obed Woodard MD [address] [facility] [address] [place] [address] documented as of this encounter Visit Diagnoses Diagnosis Malignant neoplasm of left female breast, unspecified estrogen receptor status, unspecified site of breast- Primary Range of motion deficit Adherent scar, skin At risk for lymphedema documented in this encounter Additional Health Concerns Assessment Noted Time PHQ-2 Depression Total Score: 2 07/11/20 22 1:07 PM EDT documented as of this encounter Care Teams Creel Operator Relationship Specialty Start Date End Date Herbert Hair MD [address] [facility] [address] [place] [address] PCP - General Adolescent Medicine 03/03/22 documented as of this encounter
--- OUTSIDE RECORDS SUMMARY | 2024-08-17 15:53 | XMS_ITS | Encounter Summary ---
Author Organization [facility] Address [address] [place] [address] Care Team Providers Care Consulting Hr Professional Name Role Phone Herbert Hair MD Primary Care Provider + [phone] Reason for Visit * Episode Based Medications (Routine) - Closed Specialty Diagnoses / Procedures Referred By Nasrin t Referred To Contact Diagnoses Malignant neoplasm of upper-inner quadrant of left breast in female, estrogen receptor positive Procedures TX DEXAMETHASONE SODIUM PHOS TX PACLITAXEL INJECTION TX INJECTION, UDENYCA 0.5 MG TX INJ PEGFILGRAST EX BIO 0.5MG Bre Crenshaw MD [address] [address] Phone: tel: fax: Referral ID Status Reason Start Date Expiration Date Visits Re quested Visits Authorized [id number] Closed 07/13/2022 11/30/2022 1 1 Encounter Details Date Type Department Care Team (Latest Contact Info) Description 09/29/2022 8:16 AM EST - 09/29/2022 11:59 PM EST Hospital Encounter [facility] [address] [phone] Malignant neoplasm of upper-inner quadrant of left [...] Sign Reading Time Taken Comments Blood Pressure 125/77 09/29/2022 12:45 PM EST Pulse 81 09/29/2022 12:45 PM EST Temperature 36.7 ??C (98.1 ??F) 09/29/2022 8:36 AM ES T Respiratory Rate 16 09/29/2022 8:36 AM EST Oxygen Saturation - - Inhaled Oxygen Concentration - - Weight 88 kg (194 lb) 09/29/2022 8:36 AM EST Height 154.9 cm (5' 1 ) 09/29/2022 8:36 AM EST Body Mass Index 36.66 09/29/2022 8:36 AM EST documented in this encounter Medications [...] 60 tablet 1 07/27/2022 10/16/19 23 Vit-Fe [id number] ( VITAMIN/MIN +DHA PO) Take 1 tablet [...] [facility] [address] [facility] [address] [place] [address] Bre Crenshaw MD [address] [facility] [address] [place], [place] [id number] 12/31/2024 9:00 AM EDT Office Visit [facility] [address] [facility] [address] [place] [address] Oralia Saha APRN [address] [facility] [address] [place], [place] [id number] 05/12/2025 1:45 PM EDT Office Visit [facility] [address] [facility] [address] [place] [address] Obed Woodard MD [address] [facility] [address] [place], [place] [phone] documented as of this encounter Procedures Procedure Name Priority Date/Time Associated Diagnosis Comments CBC WITH AUTO DIFFERENTIAL Routine 09/29/2022 8:36 AM EST Malignant neoplasm of upper-inner quadrant of left breast in female, estrogen receptor positive CBC AND DIFFERENTIAL Routine 09/29/2022 8:36 AM EST Malignant neoplasm of upper-inner quadrant of left breast in female, estrogen receptor positive COMPREHENSIVE METABOLIC PANEL Routine 09/29/2022 8:36 AM EST Malignant neoplasm of upper-inner quadrant of left breast in female, estrogen receptor positive documented in this encounter Results * (ABNORMAL) CBC Auto Differential (09/29/2022 8:36 AM EST) WBC 6.98 3.40 - 10.80 10*3/mm3 09/29/2022 8:52 AM EST [facility] RBC 3.21(L) 3.77 - 5.28 10*6/mm3 09/29/2022 8:52 AM EST [facility] Hemoglobin 10.7(L) 12.0 - 15.9 g/dL 09/29/2022 8:52 AM [facility] Hematocrit 31.7(L) 34.0 - 46.6 % 09/29/2022 8:52 AM [facility] MCV 98.8(H) 79.0 - 97.0 fL 09/29/2022 8:52 AM [facility] MCH 33.3(H) 26.6 - 33.0 pg 09/29/2022 8:52 AM [facility] MCHC 33.8 31.5 - 35.7 g/dL 09/29/2022 8:52 AM [facility] RDW 17.2(H) 12.3 - 15.4 % 09/29/2022 8:52 AM [facility] RDW-SD 60.5(H) 37.0 - 54.0 fl 09/29/2022 8:52 AM [facility] MPV 11.3 6.0 - 12.0 fL 09/29/2022 8:52 AM [facility] Platelets 188 140 - 450 10*3/mm3 09/29/2022 8:52 AM [facility] Neutrophil % 71.9 42.7 - 76.0 % 09/29/2022 8:52 AM [facility] Lymphocyte % 18.6(L) 19.6 - 45.3 % 09/29/2022 8:52 AM [facility] Monocyte % 7.6 5.0 - 12.0 % 09/29/2022 8:52 AM [facility] Eosinophil % 0.7 0.3 - 6.2 % 09/29/2022 8:52 AM [facility] Basophil % 0.6 0.0 - 1.5 % 09/29/2022 8:52 AM [facility] Immature Grans % 0.6(H) 0.0 - 0.5 % 09/29/2022 8:52 AM [facility] Neutrophils, Absolute 5.02 1.70 - 7.00 10*3/mm3 09/29/2022 8:52 AM EST [facility] Lymphocytes, Absolute 1.30 0.70 - 3.10 10*3/mm3 09/29/2022 8:52 AM EST [facility] Monocytes, Absolute 0.53 0.10 - 0.90 10*3/mm3 09/29/2022 8:52 AM EST [facility] Eosinophils, Absolute 0.05 0.00 - 0.40 10*3/mm3 09/29/2022 8:52 AM EST [facility] Basophils, Absolute 0.04 0.00 - 0.20 10*3/mm3 09/29/2022 8:52 AM EST [facility] Immature Grans, Absolute 0.04 0.00 - 0.05 10*3/mm3 09/29/2022 8:52 AM EST [facility] Blood Port / Unknown 09/29/2022 8: 36 AM EST 09/29/2022 8:49 AM EST Hilda Jarvis PRESS OPERATOR LAB BLOOD ORDERABLES Final Result [facility]
[address] [place] [address], * (ABNORMAL) Comprehensive metabolic panel (09/29/2022 8:36 AM EST) Glucose 165(H) 65 - 99 mg/dL 09/29/2022 9:57 AM EST [facility] BUN 13 6 - 20 mg/dL 09/29/2022 9:57 AM EST [facility] Creatinine 0.70 0.57 - 1.00 mg/dL 09/29/2022 9:57 AM EST [facility] Sodium 140 136 - 145 mmol/L 09/29/2022 9:57 AM EST [facility] Potassium 2.6(LL) 3.5 - 5.2 mmol/L 09/29/2022 9:57 AM EST [facility] Chloride 100 98 - 107 mmol/L 09/29/2022 9:57 AM [facility] CO2 29.0 22.0 - 29.0 mmol/L 09/29/2022 9:57 AM [facility] Calcium 9.4 8.6 - 10.5 mg/dL 09/29/2022 9:57 AM [facility] Total Protein 6.7 6.0 - 8.5 g/dL 09/29/2022 9:57 AM [facility] Albumin 4.4 3.5 - 5.2 g/dL 09/29/2022 9:57 AM [facility] ALT (SGPT) 41(H) 1 - 33 U/L 09/29/2022 9:57 AM [facility] AST (SGOT) 32 1 - 32 U/L 09/29/2022 9:57 AM [facility] Alkaline Phosphatase 90 39 - 117 U/L 09/29/2022 9:57 AM [facility] Total Bilirubin 0.4 0.0 - 1.2 mg/dL 09/29/2022 9:57 AM [facility] Globulin 2.3 gm/dL 09/29/2022 9:57 AM [facility] Comment:Calculated Result A/G Ratio 1.9 g/dL 09/29/2022 9:57 AM [facility] BUN/Creatinine Ratio 18.6 7.0 - 25.0 09/29/2022 9:57 AM [facility] Anion Gap 11.0 5.0 - 15.0 mmol/L 09/29/2022 9:57 AM [facility] eGFR 106.8 >60.0 mL/min/1. 73 09/29/2022 9:57 AM [facility] Comment:National Kidney Foun dation and [place] Society of Nephrology (ASN) Task Force recommended calculation based on the Chronic Kidney Disease Epidemiology Collaboration (CKD-EPI) equation refit without adjustment for race. Blood Port / Unknown 09/29/2022 8: 36 AM EST 09/29/2022 8:57 AM EST Narrative [facility] - 09/29/2022 9:57 AM EST GFR Normal >60 Chronic Kidney Disease <60 Kidney Failure <15 Hilda Jarvis PRESS OPERATOR LAB BLOOD ORDERABLES Final Result [facility]
[address] [place] [address], documented in this encounter Visit Diagnoses Diagnosis [...] mL/hr, Administer over 15 Minutes, Once, On Sun09/29/22 at 1033, For 1 dose, Administer over 5-15 minutes.Indications:M alignant neoplasm of upper-inner quadrant of left breast in female, estrogen receptor positive New Bag 09/29/2022 10:50 AM EST 20 mg 200 mL/hr diphenhydrAMINE (BENADRYL) IVPB 50 mg 50 mg, Intravenous, Once, On Sun09/29/22 at 1033, For 1 dose, Caution: Look alike/sound alike drug alert.Indications:Mal ignant neoplasm of upper-inner quadrant of left breast in female, estrogen receptor positive New Bag 09/29/2022 10:50 AM EST 50 mg 200 mL/hr famotidine (PEPCID) injection 20 mg 20 mg, Intravenous, Administer over 2 Minutes, Once, On Sun09/29/22 at 1033, For 1 dose, Give IV push over 2 minutes.Indications:M alignant neoplasm of upper-inner quadrant of left breast in female, estrogen receptor positive Given 09/29/2022 10:49 AM EST 20 mg heparin injection 500 Units 500 Units, Intravenous, As Needed, Line Care, Starting on Sun09/29/22 at 1031, Use for Implanted Ports.Indications:Enc ounter for care related to vascular access port,Malignant neoplasm of lower-outer quadrant of left breast of female, estrogen receptor positive Given 09/29/2022 2:34 PM EST 500 Units PACLitaxel (TAXOL) 330 mg in sodium chloride 0.9 % 605 mL chemo IVPB 330 mg (rounded from 329 mg = 175 mg/m2 ? 1.88 m2 Treatment Plan BSA from Recorded weight), Intravenous, Administer over 3 Hours, Once, On Sun09/29/22 at 1118, For 1 dose, Administer using non-DEHP bag and tubing via low-protein binding 0.2 micron in-line filter HAZARDOUS - Handle with careIndications:Bob billingsley neoplasm of upper-inner quadrant of left breast in female, estrogen receptor positive New Bag 09/29/2022 11:34 AM EST 330 mg 202 mL/hr pegfilgrastim (NEULASTA ONPRO) on-body injector 6 mg 6 mg, Subcutaneous, Once, On Sun09/29/22 at 1330, For 1 doseIndications:Bob billingsley neoplasm of upper-inner quadrant of left breast in female, estrogen receptor positive Given 09/29/2022 2:37 PM EST 6 mg Left Lower Abdomen potassium chloride 10 mEq in 100 mL IVPB 10 mEq, Intravenous, at 100 mL/hr, Administer over 60 Minutes, Once, On Sun09/29/22 at 1033, For 1 dose, OUTPATIENT/NON-MONITO RED UNITS: Potassium Chloride standard bolus infusion rate is a maximum of 10 mEq/hr on unmonitored patients MONITORED UNITS: Potassium Chloride standard bolus infusion rate is a maximum of 20 mEq/hr on ECG monitored patients ONLYIndications:Bob bryant neoplasm of upper-inner quadrant of left breast in female, estrogen receptor positive New Bag 09/29/2022 11:36 AM EST 10 mEq 100 mL/hr potassium chloride 10 mEq in 100 mL IVPB 10 mEq, Intravenous, at 100 mL/hr, Administer over 60 Minutes, Once, On Sun09/29/22 at 1130, For 1 dose, OUTPATIENT/NON-MONITO RED UNITS: Potassium Chloride standard bolus infusion rate is a maximum of 10 mEq/hr on unmonitored patients MONITORED UNITS: Potassium Chloride standard bolus infusion rate is a maximum of 20 mEq/hr on ECG monitored patients ONLYIndications:Bob bryant neoplasm of upper-inner quadrant of left breast in female, estrogen receptor positive New Bag 09/29/2022 12:43 PM EST 10 mEq 100 mL/hr sodium chloride 0.9 % infusion 250 mL 250 mL, Intravenous, at 20 mL/hr, Once, On Sun09/29/22 at 1033, For 1 doseIndications:Bob billingsley neoplasm of upper-inner quadrant of left breast in female, estrogen receptor positive New Bag 09/29/2022 10:49 AM EST 250 mL 20 mL/hr documented in this encounter Additional Health Concerns Assessment Noted Time PHQ-2 Depression Total Score: 2 07/11/20 1:07 PM EDT documented as of this encounter Care Teams Consulting Hr Professional Relationship Specialty Start Date End Date Herbert Hair MD [address] [facility] [address] [address] PCP - General Adolescent Medicine 03/03/22 documented as of this encounter
--- OUTSIDE RECORDS SUMMARY | 2024-08-17 15:54 | XMS_ITS | Encounter Summary ---
Author Organization [facility] Address [address] [place] [address] Care Team Providers Care Inside Outside Sales Representative Name Role Phone Herbert Hair MD Primary Care Provider + [phone] Encounter Details Date Type Department Care Team (Late st Contact Info) Description 06/14/2022 Nurse Navigator [facility] NURSE NAVIGATOR [address] [place] [address] Jes Austin, RN Social History Tobacco Use Types Packs/Day [...] PHQ-9: Brief Depression Severity Measure Score 0 05/24/2022 Comments No Sex and Gender Information Value Date Recorded Sex Assigned at Not on file Legal Sex Female 10:43 AM EDT Gender Identity Not on file Sexual Orientation Not on file documented as of this encounter Progress Notes * Jes Austin RN - 06/14/2022 11:26 AM EDT Patient called to ask about follow up appointment - I explained she will see Dr SPARKS next week and after that appointment (same day) she will see Dr Sams and Medical Oncologist - she verbalized understanding documented in this encounter Plan of Treatment Upcoming Encounters Date Type Department Care Team (Late st Contact Info) Description 09/18/2024 3:30 PM EST Office Visit [facility] [address] [facility] [address] [place] [phone] Bre Crenshaw MD [address] [facility] [address] [place] [address] 12/31/2024 9:00 AM EDT Office Visit [facility] [address] [facility] [address] [place] [address] Oralia Saha APRN [address] [facility] [address] [place] [address] 05/12/2025 1:45 PM EDT Office Visit [facility] [address] [facility] [address] [place] [address] Obed Woodard MD [address] [facility] [address] [place] [address] documented as of this encounter Visit Diagnoses Not on filedocumented in this encounter Care Teams Inside Outside Sales Representative Relationship Specialty Start Date End Date Herbert Hair MD [address] [facility] [address] [place] [address] PCP - General Adolescent Medicine 03/03/22 documented as of this encounter
--- OUTSIDE RECORDS SUMMARY | 2024-08-17 15:54 | XMS_ITS | Encounter Summary ---
Author Organization [facility] Address [address] [place] [address] Care Team Providers Care Oral And Maxillofacial Surgery Name Role Phone Herbert Hair MD Primary Care Provider [phone] Reason for Visit * Reason Onset Date Comments MICHELLE - R/S INFUSIONS 06/29/2022 Encounter Details Date Type Department Care Team (Late st Contact Info) Description 06/29/2022 Telephone [facility] [address] [facility] [address] [place] [phone] Hilda Jarvis, FIBER DRIER OPERATOR [address] [facility] [address] [place] [id number] MICHELLE - R/S INFUSIONS Social History Tobacco Use Types Packs/Day Years [...] * Telephone Encounter - Lucy Contreras - 06/29/2022 11:58 AM EDT Spoke with Leydi and she is aware of her new appointment times. * Telephone Encounter - Erika Benavides RegSched Rep - 06/29/2022 9:40 AM EDT Caller: Leydi Brown Relationship to patient: Self Best call back number: [phone] Chief complaint: WOULD PREFER LATE IN THE AFTERNOON FOR ALL INFUSION APPTS Type of visit: INFUSIONS Requested date: WOULD LIKE LATE IN THE AFTERNOON POSSIBLE, ALL INFUSIONS LATE POSSIBLE If rescheduling, when is the original appointment: &07/27 documented in this encounter Plan of Treatment Upcoming Encounters Date Type Department Care Team (Late st Contact Info) Description 09/18/2024 3:30 PM EST Office Visit [facility] & [facility] [address] [facility] [address] [place] [phone] Bre Crenshaw MD [address] [facility] [address] [place] [id number] 12/31/2024 9:00 AM EDT Office Visit [facility] [address] [facility] [address] [place] [id number] Oralia Saha APRN [address] [facility] [address] [place] [phone] 05/12/2025 1:45 PM EDT Office Visit [facility] [address] [facility] [address] [place] [phone] Obed Woodard MD [address] [facility] [address] [place] [address] documented as of this encounter Visit Diagnoses Not on filedocumented in this encounter Care Teams Oral And Maxillofacial Surgery Relationship Specialty Start Date End Date Herbert Hair MD [address] [facility] [address] [place] [address] PCP - General Adolescent Medicine 03/03/22 documented as of this encounter
--- OUTSIDE RECORDS SUMMARY | 2024-08-17 15:54 | XMS_ITS | Encounter Summary ---
Author Organization [facility] Address [address] [place] [address] Care Team Providers Care Webmethods Architect Name Role Phone Herbert Hair MD Primary Care Provider [phone] Reason for Visit * Reason Onset Date Comments INGRID-JOYCE 07/20/2022 Encounter Details Date Type Department Care Team (Late st Contact Info) Description 07/20/2022 Refill [facility]AT[facility] & [facility]COL[facility]Y [address] [phone] Bre Crenshaw MD [address] [place] [id number] Social History Tobacco Use Types Packs/Day Years [...] Miscellaneous Notes * Telephone Encounter - Allie Garibay RN - 07/20/2022 10:21 AM EDT Spoke with patient regarding her questions. C/o mouth sores x 2 days. She is using a baking soda and water mouth rinse and wants to know if sheshould do anything else. Also c/o of sinus drainage and earache in her right ear. Drainage is brownish. Denies fever or other symptoms. She asked if it is ok to go to PCP for evaluation to make sure it doesn't need to be treated. Her urine is a darker yellow than usual with a slight odor. Denies any pain or dysuria. She asked if her chemo dose changes each time or if he stays the same. Advised patient dose is based on her height and weight. Dose she remain the same as long as he weight is stable and she tolerates therapy. She states her boss has asked her coworkers to wear masks to protect her even when they are across the room. She wants to know if Dr. Crenshaw thinks that is necessary. Patient asked what precautions she needs to take for intercourse related to chemotherapy risk to her . Discussed with Dr. Crenshaw. Will send rx for magic mouthwash for mouth sores. Ok to see PCP for evaluation of sinus and ear infections. She recommends she have a UA checked while she is there and increase water intake. Mask use for her coworkers who are not ill is up to her and her boss and what sheis comfortable. We do not generally mandate mask use as long as no one is ill and in close proximity. Dr. Crenshaw recommends she use condoms for 48-72 hrs following each treatment while the chemotherapy. Patient notified and verbalized understanding. Will send MMW to [facility] in [place]. * Telephone Encounter - Floresita Donaldson - 07/20/2022 8:32 AM EDT Patient left a voicemail she has some simple questions related to her treatment. Please call. documented in this encounter Plan of Treatment Upcoming Encounters Date Type Department Care Team (Late st Contact Info) Description 09/18/2024 3:30 PM EST Office Visit [facility]EMAT[facility] & ONCOLOGY [address] [facility] [address] [place] [address] Bre Crenshaw MD [address] [facility] [address] [place] [address] 12/31/2024 9:00 AM EDT Office Visit [facility] UR[facility] [address] [facility] [address] [place] [address] Oralia Saha APRN [address] [facility] [address] [place] [address] 05/12/2025 1:45 PM EDT Office Visit [facility] [address] [facility] [address] [place] [phone] Obed Woodard MD [address] [facility] [address] [place], [place] [address] documented as of this encounter Visit Diagnoses Not on filedocumented in this encounter Additional Health Concerns Assessment Noted Time PHQ-2 Depression Total Score: 2 07/11/20 22 1:07 PM EDT documented as of this encounter Care Teams Webmethods Architect Relationship Specialty Start Date End Date Herbert Hair MD [address] [facility] [address] [place] [address] PCP - General Adolescent Medicine 03/03/22 documented as of this encounter
--- OUTSIDE RECORDS SUMMARY | 2024-08-17 15:54 | XMS_ITS | Encounter Summary ---
Author Organization [facility] Address [address] [place] [address] Care Team Providers Care Vacuum Technician Name Role Phone Herbert Hair MD Primary Care Provider + [phone] Reason for Referral * Diagnostic Imaging (Routine) - Closed Specialty Diagnoses / Procedures Referred By Nasrin hernandez Referred To Contact Diagnoses Status post administration of cardiotoxic chemotherapy Procedures Adult Transthoracic Echo Limited W/ Cont if Necessary Per Protocol Obed Woodard MD [address] [place] [address] [place] [address] Phone: tel: fax: [address] [phone] Phone: tel: Referral ID Status Reason Start Date Expiration Date Visits Re quested Visits Authorized [id number] Closed 07/26/2022 07/26/2023 1 1 Reason for Visit * Reason Comments Breast cancer CONSULT Estrogen + * Consultation (Routine) - Closed Specialty Diagnoses / Procedures Referred By Nasrin t Referred To Contact Cardiology Diagnoses Malignant neoplasm of left breast in female, estrogen receptor positive, unspecified site of breast Bre Crenshaw MD [address] [facility] [address] [place] [address] Phone: tel: fax: Obed Woodard MD [address] [facility] [address] [place] [address] Phone: tel: fax: Referral ID Status Reason Start Date Expiration Date V isits Requested Visits Authorized [id number] Closed Specialty Services Required 06/28/2022 06/28/2023 1 1 Encounter Details Date Type Department Care Team (Late st Contact Info) Description 07/26/2022 3:00 PM EDT Office Visit [facility] CARDIOLOGY [address] [facility] [address] [place] [phone] Obed Woodard MD [address] [facility] [address] [place] [address] Status post administration of cardiotoxic chemotherapy (Primary Dx) Social History Tobacco Use Types [...] Sign Reading Time Taken Comments Blood Pressure 118/82 07/26/2022 3:04 PM EDT Pulse 52 07/26/2022 3:04 PM EDT Temperature - - Respiratory Rate - - Oxygen Saturation 98% 07/26/2022 3:04 PM EDT Inhaled Oxygen Concentration - - Weight 88.5 kg (195 lb) 07/26/2022 3:04 PM EDT Height 154.9 cm (5' 0.98 ) 07/26/2022 3:04 PM ED T Body Mass Index 36.86 07/26/2022 3:04 PM EDT documented in this encounter Progress Notes * Obed Woodard MD - 07/26/2022 3:00 PM EDT [facility] Cardiology Consult Leydi Brown 1975 VISIT DATE: 07/26/22 PCP: Herbert Hair MD [address] [facility] [address] [address] CC: Breast cancer (CONSULT Estrogen +) Problem List: 1. Left breast CVA: Estrogen progesterone positive, HER2 negative. - bilateral mastectomy 2. Hypertension 3. Hypothyroid 4. GERD 5. Migraine Echo June 2022: Left ventricular ejection fraction appears to be 61 - 65%. Left ventricular systolic function is normal. ??? Borderline global longitudinal strain of -17.3% ??? No significant valvular disease. ??? There is no evidence of pericardial effusion. History of Present Illness: Leydi Brown Is a 47 y.o. female with pertinent cardiac history detailed above. She is establishing care for cardio oncology follow-up. Has breast cancer that is being treated with anthracycline chemotherapy and she will undergo eventual radiation. She has a pre-existing history of hypertension as well as history of migraines for which she takes propanolol. She has no known cardiac history. She is undergone bilateral mastectomy. Her blood pressures controlled. She has no lower extremity edema. Baseline echo detailed above. Patient Active Problem List Diagnosis Date Noted ??? Encounter for care related to vascular access port 07/13/2022 ??? Malignant neoplasm of lower-outer quadrant of left female breast (HCC) 06/13/2022 ??? Malignant neoplasm of left breast in female, estrogen receptor positive (HCC) 05/24/2022 ??? Intramural leiomyoma of uterus 12/06/2020 No Known Allergies Social History Socioeconomic History ??? Marital status: Tobacco Use ??? Smoking status: Never ??? Smokeless tobacco: Never Vaping Use ??? Vaping Use: Never used Substance and Sexual Activity ??? Alcohol use: Never ??? Drug use: Never ??? Sexual activity: Defer Comment: vasectomy Family History Problem Relation Age of Onset ??? Diabetes Mother ??? Hypertension Mother ??? Diabetes Father ??? Hypertension Father ??? Diabetes Maternal Grandmother ??? Heart disease Maternal Grandfather ??? Breast cancer Neg Hx ??? Ovarian cancer Neg Hx ??? Endometrial cancer Neg Hx ??? Uterine cancer Neg Hx ??? Colon cancer Neg Hx Current Medications: Current Outpatient Medications: ??? amoxicillin-clavulanate (AUGMENTIN) 875-125 MG per tablet, TAKE 1 TABLET BY MOUTH EVERY 12 HOURS FOR 7 DAYS, Disp: , Rfl: ??? busPIRone (BUSPAR) 7.5 MG tablet, Take 15 mg by mouth every night at bedtime., Disp: , Rfl: ??? Dexilant 60 MG capsule, Take 60 mg by mouth Every Morning., Disp: , Rfl: ??? fexofenadine (SANTIAGO) 180 MG tablet, Take 180 mg by mouth Daily., Disp: , Rfl: ??? fluticasone (FLONASE) 50 MCG/ACT nasal spray, 2 sprays into the nostril(s) as directed by provider Daily., Disp: , Rfl: ??? levothyroxine (SYNTHROID, LEVOTHROID) 25 MCG tablet, Take 25 mcg by mouth Daily., Disp: , Rfl: ??? lidocaine-prilocaine (EMLA) 2.5-2.5 % cream, Apply 1 application topically to the appropriate area as directed As Needed (45-60 minutes prior to port access. Cover with saran/plastic wrap.)., Disp: 30 g, Rfl: 3 ??? ondansetron (ZOFRAN) 8 MG tablet, Take 1 tablet by mouth 3 (Three) Times a Day As Needed for Nausea or Vomiting., Disp: 30 tablet, Rfl: 5 ??? polycarbophil 625 MG tablet tablet, Take 625 mg by mouth Daily., Disp: , Rfl: ??? Vit-Fe Yoouxpc-HV-MGK ( VITAMIN/MIN +DHA PO), Take 1 tablet by mouth Daily., Disp: , Rfl: ??? pseudoephedrine-guaifenesin (MUCINEX D) 60-600 MG per 12 hr tablet, Take 1 tablet by mouth Every 12 (Twelve) Hours. As needed, Disp: , Rfl: ??? SSD 1 % cream, APPLY CREAM TOPICALLY TO AFFECTED AREA ONCE DAILY, Disp: , Rfl: ??? telmisartan-hydrochlorothiazide (MICARDIS HCT) 40-12.5 MG per tablet, Take 1 tablet by mouth Every Evening., Disp: , Rfl: ??? vitamin B-12 (CYANOCOBALAMIN) 1000 MCG tablet, Take 1,000 mcg by mouth Daily., Disp: , Rfl: ??? carvedilol (COREG) 6.25 MG tablet, Take 1 tablet by mouth 2 (Two) Times a Day., Disp: 60 tablet, Rfl: 11 ??? nystatin susp + lidocaine viscous (MAGIC MOUTHWASH) oral suspension, 5-10 ml swish and spit or swallow QID prn, Disp: 240 mL, Rfl: 3 ??? OLANZapine (zyPREXA) 5 MG tablet, Take 1 tablet by mouth Every Night. Take on days 2, 3 and 4 after chemotherapy., Disp: 3 tablet, Rfl: 3 ??? vitamin C (ASCORBIC ACID) 500 MG tablet, Take 500 mg by mouth Daily., Disp: , Rfl: ??? Zinc 50 MG capsule, Take 50 mg by mouth Daily., Disp: , Rfl: Review of Systems Cardiovascular: Negative for chest pain, dyspnea on exertion, irregular heartbeat, leg swelling andpalpitations. Gastrointestinal: Positive for bloating. Swelling after mastectomy Vitals: 07/26/22 1504 BP: 118/82 BP Location: Right arm Patient Position: Sitting Pulse: 52 SpO2: 98% Weight: 88.5 kg (195 lb) Height: 154.9 cm (60.98 ) Physical Exam Constitutional: Appearance: Normal appearance. Cardiovascular: Rate and Rhythm: Normal rate and regular rhythm. Pulses: Normal pulses. Heart sounds: Normal heart sounds. Pulmonary: Effort: Pulmonary effort is normal. Breath sounds: Normal breath sounds. Musculoskeletal: Right lower leg: No edema. Left lower leg: No edema. Neurological: General: No focal deficit present. Mental Status: She is alert. Diagnostic Data: Procedures Lab Results Component Value Date TRIG 84 07/26/2022 HDL 47 07/26/2022 Lab Results Component Value Date GLUCOSE 132 (H) 07/26/2022 BUN 9 07/26/2022 CREATININE 0.83 07/26/2022 NA 141 07/26/2022 K 2.8 (L) 07/26/2022 CL 101 07/26/2022 CO2 30.0 (H) 07/26/2022 Lab Results Component Value Date HGBA1C 5.70 (H) 06/09/2022 Lab Results Component Value Date WBC 10.08 07/26/2022 HGB 12.5 07/26/2022 HCT 36.1 07/26/2022 PLT 224 07/26/2022 Assessment: Diagnosis Plan 1. Status post administration of cardiotoxic chemotherapy Adult Transthoracic Echo Limited W/ Cont if Necessary Per Protocol proBNP Troponin I Lipid Panel Plan: 1. Left breast cancer -Normal EF on baseline echo, borderline strain. -She is receiving anthracycline chemo -Repeat echo in about 3 months -Continue telmisartan-HCTZ. Change propanolol to Coreg -Plan for eventual radiation -Baseline EKG normal, normal QTC -Lipids, proBNP, troponin checked today and acceptable. 2. HTN -Telmisartan-HCTZ -Substitute Coreg for propanolol otherwise no changes. Blood pressures controlled. Next echo in about 3 months which would be after cycle 4 of anthracycline. Obed Woodard MD [facility] documented in this encounter Plan of Treatment Upcoming Encounters Date Type Department Care Team (Late st Contact Info) Description 09/18/2024 3:30 PM EST Office Visit [facility] HEMATOLOGY & ONCOLOGY [address] [facility] [address] [place] [phone] Bre Crenshaw MD [address] [facility] [address] [place] [address] 12/31/2024 9:00 AM EDT Office Visit [facility] UROLOGY [address] [facility] [address] [place] [address] Oralia Saha APRN [address] [facility] [address] [place] [address] 05/12/2025 1:45 PM EDT Office Visit [facility] CARDIOLOGY [address] [place] [address] Obed Woodard MD [address] [facility] [address] [place] [address] documented as of this encounter [...] CV ECHO ORDERABLES Vanda l Result * (ABNORMAL) Lipid Panel (07/26/2022 3:53 PM EDT) Total Cholesterol 170 0 - 200 mg/dL 07/26/2022 4:45 PM EDT [facility] Triglycerides 84 0 - 150 mg/dL 07/26/2022 4:45 PM EDT [facility] HDL Cholesterol 47 40 - 60 mg/dL 07/26/2022 4:45 PM EDT [facility] LDL Cholesterol 107(H) 0 - 100 mg/dL 07/26/2022 4:45 PM EDT [facility] VLDL Cholesterol 16 5 - 40 mg/dL 07/26/2022 4:45 PM EDT [facility] LDL/HDL Ratio 2.26 07/26/2022 4:45 PM EDT [facility] Blood Venipuncture / Unknown 07/26/2022 3:53 PM EDT 07/26/2022 3:53 PM EDT [facility]ORATORY - 07/26/2022 4:45 PM EDT Cholesterol [...] ? 160-189 mg/dL Very High ?>189 mg/dL us Obed Woodard MD LAB BLOOD ORDERABLES Fi nal Result [facility]
[address] [place] [address], * Troponin I (07/26/2022 3:53 PM EDT) Troponin T <0.010 0.000 - 0.030 ng/mL 07/26/2022 4:39 PM EDT [facility] Blood Venipuncture / Unknown 07/26/2022 3:53 PM EDT 07/26/2022 3:53 PM EDT Narrative [facility] - 07/26/2022 4:39 PM EDT Troponin [...] ORDERABLES Fi nal Result Performing Organization Address [facility] Co de Phone Number [facility]
[address] [place] [address], * proBNP (07/26/2022 3:53 PM EDT) [facility] proBNP 244.4 0.0 - 450.0 pg/mL 07/26/2022 4:39 PM EDT [facility] Blood Venipuncture / Unknown 07/26/2022 3:53 PM EDT 07/26/2022 3:53 PM EDT Narrative [facility] - 07/26/2022 4:39 PM EDT Among patients with dyspnea, NT-proBNP is highly sensitive for the detection of acute congestive heart failure. In addition NT-proBNP of <300 pg/ml effectively rules out acute congestive heart failure with 99% negative predictive value. Results may be falsely decreased if patient taking Biotin. Obed Woodard MD LAB BLOOD ORDERABLES Fi nal Result Performing Organization Address [facility] de Phone Number [facility]
[address] [place] [address], documented in this encounter Visit Diagnoses Diagnosis Status post administration of cardiotoxic chemotherapy- Primary Status post administration of cardiotoxic chemotherapy documented in this encounter Additional Health Concerns Assessment Noted Time PHQ-2 Depression Total Score: 2 07/11/20 22 1:07 PM EDT documented as of this encounter Care Teams Vacuum Technician Relationship Specialty Start Date End Date Herbert Hair MD [address] [facility] [address] [place] [address] PCP - General Adolescent Medicine 03/03/22 documented as of this encounter
--- OUTSIDE RECORDS SUMMARY | 2024-08-17 15:54 | XMS_ITS | Encounter Summary ---
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 Procedures Adult Transthoracic Echo Complete W/ Cont if Necessary Per Protocol Bre Crenshaw MD [address] [facility] [address] [place] [address] Phone: tel: fax: [facility] [address] [facility] 3rd [place] [address] Phone: tel: fax: Referral ID Status Reason Start Date Expiration Date Visits Re quested Visits Authorized [id number] Closed 06/28/2022 07/28/2022 1 1 Encounter Details Date Type Department Care Team (Latest Contact Info) Description 07/10/2022 9:30 AM EDT - 07/10/2022 11:59 PM EDT Hospital Encounter [facility] CARDIOLOGY [facility] [place] [address] Discharge Disposition: Home or Self Care Social [...] - Inhaled Oxygen Concentration - - Weight 89.4 kg (197 lb) 07/10/2022 10:10 AM EDT Height 154.9 cm (5' 1 ) 07/10/2022 10:10 AM EDT Body Mass Index 37.22 07/10/2022 10:10 AM EDT documented in this encounter Medications at Time of Discharge fluticasone (FLONASE) 50 MCG/ACT nasal spray Administer 2 sprays into the nostril(s) as directed by provider Daily. busPIRone (BUSPAR) 7.5 MG tablet Take 15 mg by mouth every night at bedtime. 05/10/2022 3 cholecalciferol (VITAMIN D3) 25 MCG (1000 UT) tablet Take 2,000 Units by mouth Daily. 2 Dexilant 60 MG capsule Take 60 mg [...] saran/plastic wrap.). 30 g 3 07/10/2022 3 OLANZapine (zyPREXA) 5 MG tabletIndications: Malignant [...] Take 1 tablet by mouth Daily. 3 Vit-Fe Dovisbp-VV-TRV ( VITAMIN/MIN +DHA PO) Take 1 tablet by mouth Daily. 3 propranolol (INDERAL) 20 MG tablet Take 20 mg by mouth every night at bedtime. 05/16/2022 2 pseudoephedrine-gu aifenesin (MUCINEX D) 60-600 MG per [...] 1 tablet by mouth Daily. 4 vitamin C (ASCORBIC ACID) 500 MG tablet Take 500 mg by mouth Daily. 2 Zinc 50 MG capsule Take 50 mg by mouth Daily. 3 documented as of this encounter Plan of Treatment Upcoming Encounters Date Type Department Care Team (Late st Contact Info) Description 09/18/2024 3:30 PM EST Office Visit [facility] HEMATOLOGY & ONCOLOGY [address] [facility] [address] [place] [phone] Bre Crenshaw MD [address] [facility] [address] [place] [address] 12/31/2024 9:00 AM EDT Office Visit [facility] UROLOGY [address] [facility] [address] [place], [place] [phone] Fabianallyssa OraliaDWAYNE [address] [facility] [address] [place], [place] [phone] 05/12/2025 1:45 PM EDT Office Visit [facility] C[facility] [address] [facility] [address] [place] [address] Obed Woodard MD [address] [facility] [address] [place], [place] [id number] documented as of this encounter Procedures Procedure Name Priority Date/Time Associated Diagnosis Comments ECHO COMPLETE W/ DOPPLER, COLOR FLOW AND STRAIN Routine 07/10/2022 10:10 AM EDT Malignant neoplasm of left breast in female, estrogen receptor positive, unspecified site of breast 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 Pred. HR (100%) 172 bpm EF(MOD-bp) 61.0 % LVIDd 3.8 cm LVIDs 2.37 cm IVSd 1.1 cm LVPWd 1.0 cm FS 37.7 % IVS/LVPW 1.01 cm ESV(cubed) 13.3 ml EDV(cubed) 55.2 ml LVOT area 3.3 cm2 LV mass(C)d 182.1 grams LVOT diam 2.05 cm EDV(MOD-sp2) 42.0 ml EDV(MOD-sp4) 51.0 ml ESV(MOD-sp2) 18.0 ml ESV(MOD-sp4) 20.0 ml SV(MOD-sp2) 24.0 ml SV(MOD-sp4) 31.0 ml EF(MOD-sp2) 57.1 % EF(MOD-sp4) 60.8 % MV E max jennifer 85.9 cm/sec MV A max jennifer 84.4 cm/sec MV dec time 0.25 msec MV E/A 1.02 LA ESV Index (BP) 12.2 ml/m2 SV(LVOT) 61.2 ml LA dimension (2D) 2.23 cm LV V1 max 88.8 cm/sec LV V1 max PG 3.2 mmHg LV V1 mean PG 1.68 mmHg LV V1 VTI 18.4 cm Ao pk jennifer 126.8 cm/sec Ao max PG 6.4 mmHg Ao mean PG 3.2 mmHg Ao V2 VTI 24.7 cm LUIS MANUEL(I,D) 2.47 cm2 MV P1/2t 79.8 msec MVA(P1/2t) 2.8 cm2 MV dec slope 318.7 cm/sec2 MR max jennifer 125.1 cm/sec MR max PG 6.3 mmHg TR max jennifer 214.5 cm/sec TR max PG 18.5 mmHg PA V2 max 101.7 cm/sec PA acc slope 509.8 cm/sec2 PA acc time 0.15 sec PA pr(Accel) 9.3 mmHg PI end-d jennifer 63.3 cm/sec Ao root diam 3.2 cm RV Base 3.20 cm RV Mid 2.40 cm RV Length 6.90 cm TAPSE (>1.6) 1.80 cm RVSP(TR) 25 mmHg RAP systole 3 mmHg LV GLOBAL STRAIN -17.3 % Anatomical Region Laterality Modality Ultrasound Narrative 07/10/2022 11:57 AM EDT ?Left ventricular ejection fraction appears to be 61 - 65%. Left ventricular systolic function is normal. ?Borderline global longitudinal strain of -17.3% ?No significant valvular disease. ?There is no evidence of pericardial effusion. Left Ventricle Calculated left ventricular EF = 61% Left ventricular ejection fraction appears to be 61 - 65%. Left ventricular systolic function is normal. Global longitudinal LV strain (GLS) = -17.3%. Normal left ventricular cavity size noted. Left ventricular wall thickness is consistent with mild concentric hypertrophy. Right Ventricle Normal right ventricular cavity size and systolic function noted. Left Atrium Normal left atrial size and volume noted. Right Atrium Normal right atrial cavity size noted. Mitral Valve The mitral valve is normal in structure. Mild mitral valve regurgitation is present. Tricuspid Valve The tricuspid valve is structurally normal with no stenosis present. Mild tricuspid valve regurgitation is present. Estimated right ventricular systolic pressure from tricuspid regurgitation is normal (<35 mmHg). Aortic Valve The aortic valve is structurally normal with no regurgitation or stenosis present. Pulmonic Valve The pulmonic valve is structurally normal. There is mild pulmonic valve regurgitation present. Pericardium The pericardium is normal. There is no evidence of pericardial effusion. . Additional Study Details The study is technically adequate for diagnosis. Greater Vessels No dilation of the aortic root is present. The inferior vena cava is normally sized. Normal IVC inspiratory collapse of greater than 50% noted. Bre Crenshaw MD CV ECHO ORDERABLES Final Result documented in this encounter Visit Diagnoses Not on filedocumented in this encounter Care Teams Bridge Crane Operator Relationship Specialty Start Date End Date Herbert Hair MD [address] [facility] [address] [place] [address] PCP - General Adolescent Medicine 03/03/22 documented as of this encounter
--- OUTSIDE RECORDS SUMMARY | 2024-08-17 15:54 | XMS_ITS | Encounter Summary ---
Author Organization [facility] Address [address] [place] [address] Care Team Providers Care Dress Fitter Name Role Phone Herbert Hair MD Primary Care Provider Encounter Details Date Type Department Care Team (Latest Contact Info) Description 06/21/2022 7:11 AM EDT - 06/21/2022 11:59 PM EDT Hospital Encounter [facility] [facility] [address] [place] [phone] Discharge Disposition: Home or Self Care Social [...] Take 1 tablet by mouth Daily. 3 polycarbophil 625 MG tablet tablet Take 1 tablet by mouth Daily. 3 Vit-Fe Yadzyqm-PT-BHP ( VITAMIN/MIN +DHA PO) Take 1 tablet by mouth Daily. 3 propranolol (INDERAL) 20 MG tablet Take 20 mg by mouth every night at bedtime. 05/16/2022 2 telmisartan-hydr ochlorothiazide (MICARDIS HCT) 40-12.5 MG per tablet Take [...] Upcoming Encounters Date Type Department Care Team (Kaylee st Contact Info) Description 09/18/2024 3:30 PM EST Office Visit [facility] HEMATOLOGY & ONCOLOGY [address] [facility] [address] [place] [address] Bre Crenshaw MD [address] [facility] [address] [place] [address] 12/31/2024 9:00 AM EDT Office Visit [facility] UROLOGY [address] [facility] [address] [place] [address] Oralia Saha APRN [address] [facility] [address] [place], [place] [phone] 05/12/2025 1:45 PM EDT Office Visit [facility] CARDIOLOGY [address] [facility] [address] [place] [address] Obed Woodard MD [address] [facility] [address] [place], [place] [phone] documented as of this encounter Visit Diagnoses Not on filedocumented in this encounter Care Teams Dress Fitter Relationship Specialty Start Date End Date Herbert Hair MD [address] [facility] [address] [place] [address] PCP - General Adolescent Medicine 03/03/22 documented as of this encounter
--- OUTSIDE RECORDS SUMMARY | 2024-08-17 15:54 | XMS_ITS | Encounter Summary ---
Author Organization [facility] Address [address] [place] [address] Care Team Providers Care Assistant Professor Of Sociology Name Role Phone Herbert Hair MD Primary Care Provider [phone] Reason for Visit * Reason Onset Date Comments Med Refill 07/20/2022 Encounter Details Date Type Department Care Team (Late st Contact Info) Description 07/20/2022 Refill [facility] HEMATOLOGY & ONCOLOGY [address] [address] Bre Crenshaw MD [address] [place] [phone] Malignant neoplasm of upper-inner quadrant of left [...] [facility] HEMATOLOGY & ONCOLOGY [address] [facility] [address] [place] [address] Bre Crenshaw MD [address] [facility] [address] [place] [address] 12/31/2024 9:00 AM EDT Office Visit [facility] UROLOGY [address] [facility] [address] [place] [address] Oralia Saha APRN [address] [facility] [address] [place] [address] 05/12/2025 1:45 PM EDT Office Visit [facility] CARDIOLOGY [address] [facility] [address] [place] [phone] Obed Woodard MD [address] [facility] [address] [place] [address] documented as of this encounter Visit Diagnoses Diagnosis Malignant neoplasm of upper-inner quadrant of left breast in female, estrogen receptor positive documented in this encounter Additional Health Concerns Assessment Noted Time PHQ-2 Depression Total Score: 2 07/11/20 22 1:07 PM EDT documented as of this encounter Care Teams Assistant Professor Of Sociology Relationship Specialty Start Date End Date Herbert Hair MD [address] [facility] [address] [facility] [place] [address] PCP - General Adolescent Medicine 03/03/22 documented as of this encounter
--- OUTSIDE RECORDS SUMMARY | 2024-08-17 15:54 | XMS_ITS | Encounter Summary ---
Author Organization [facility] Address [address] [place] [address] Care Team Providers Care Singer Songwriter Name Role Phone Herbert Hair MD Primary Care Provider [phone] Reason for Visit * Reason Comments Breast Cancer Encounter Details Date Type Department Care Team (Late st Contact Info) Description 06/28/2022 1:00 PM EDT Office Visit [facility] [address] [place] [address] Courtney Sams MD [address] [place] [address] Malignant neoplasm of lower-outer quadrant of left [...] Sign Reading Time Taken Comments Blood Pressure 155/99 06/28/2022 1:38 PM EDT Pulse 77 06/28/2022 1:38 PM EDT Temperature - - Respiratory Rate 18 06/28/2022 1:38 PM EDT Oxygen Saturation - - Inhaled Oxygen Concentration - - Weight 89.3 kg (196 lb 12.8 oz) 06/28/2022 1:38 PM EDT Height 154.9 cm (5' 1 ) 06/28/2022 1:38 PM EDT Body Mass Index 37.19 06/28/2022 1:38 PM EDT documented in this encounter Progress Notes * Courtney Sams MD - 06/28/2022 1:00 PM EDT CONSULTATION NOTE NAME: Leydi Brown : 1975 DATE OF CONSULTATION: 06/28/22 REQUESTING PHYSICIAN: Rogerio Carreon MD REASON FOR CONSULTATION: Cancer Staging Malignant neoplasm of left breast in female, estrogen receptor positive (HCC) Staging form: Breast, AJCC 8th Edition - Clinical: Stage IIA (cT2, cN1, cM0, G2, ER+, IN+, HER2-) - Signed by Bre Crneshaw MD on 05/24/2022 BRIEF HISTORY: Leydi Brown is a very pleasant 47 y.o. female?? 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 The right breast was negative. The left breast had a 2.4 x 1.8 x 1.8 cm grade 2 invasive ductal carcinoma in the lower outer quadrant. There was no DCIS. 2/8 lymph nodes were positive for tumor. The largest deposit was 12 mm. There was lymphovascular invasion present. The tumor was ER/IN positive HER2/margie negative. A PET scan was negative for metastatic disease. She has seen Dr. Crenshaw who recommends chemotherapy. Ms. Brownis here to discuss postoperative radiation. She does not plan to have reconstruction. Ms. Brown's daughter got Sunday and the wedding went off without a hitch. ?? Age at menarche: 11 Age at menopause: 38 Hormone replacement therapy: no Personal history of breast cancer: no Family history of breast cancer: no Radiation to chest before age of 29: no Age of first live : 19 BMI: Body mass index is 37.19 kg/m??. Social History Substance and Sexual Activity Alcohol Use Never No Known Allergies Social History Tobacco Use ??? Smoking status: Never Smoker ??? Smokeless tobacco: Never Used Vaping Use ??? Vaping Use: Never used Substance Use Topics ??? Alcohol use: Never ??? Drug use: Never Past Medical History: Diagnosis Date ??? Acid reflux ??? Anxiety ??? Javed's disease ??? Headache ??? Hypertension ??? Hypothyroidism ??? Malignant neoplasm of left breast in female, estrogen receptor positive (HCC) 05/24/2022 ??? Migraines ??? PONV (postoperative nausea and vomiting) ??? Wears glasses family history includes Diabetes in her father, maternal grandmother, and mother; Heart disease in her maternal grandfather; Hypertension in her father and mother. Past Surgical History: Procedure Laterality Date ??? [...] RIGHT MASTECTOMY; Surgeon: An Bell MD; Location: [facility]; Service: General; Laterality: N/A; ??? TONSILLECTOMY Review of Systems Constitutional: Positive for fatigue. HENT: Positive for tinnitus. Psychiatric/Behavioral: Positive for depression and sleep disturbance. The patient is nervous/anxious. All other systems reviewed and are negative. Objective VITAL SIGNS: Vitals: 09/28/22 1338 BP: 155/99 Pulse: 77 Resp: 18 Weight: 89.3 kg (196 lb 12.8 oz) Height: 154.9 cm (61 ) PainSc: 0-No pain KPS 90% Physical Exam Vitals reviewed. Constitutional: Appearance: Normal appearance. Cardiovascular: Rate and Rhythm: Normal rate and regular rhythm. Heart sounds: Normal heart sounds. Pulmonary: Effort: Pulmonary effort is normal. Breath sounds: Normal breath sounds. The breast exam reveals the breasts are surgically absent. There are horizontal incisions in place.Drains were taken out today. Bandages are in place. The following portions of the patient's history were reviewed and updated as appropriate: allergies, current medications, past family history, past medical history, past social history, past surgicalhistory and problem list. Assessment IMPRESSION: Leydi Brown is a 47 y.o. female?? who underwent bilateral mastectomies for clinical stage IIa invasive ductal carcinoma of the left breast. The right breast was negative. The left breast had a 2.4 x 1.8 x 1.8 cm grade 2 invasive ductal carcinoma in the lower outer quadrant. There was no DCIS. 2/8 lymph nodes were positive for tumor. The largest deposit was 12 mm. There was lymphovascular invasion present. The tumor was ER/IN positive HER2/margie negative. A PET scan was negative for metastatic disease. She has seen Dr. Crenshaw who recommends chemotherapy. Ms. Brown is hereto discuss postoperative radiation. RECOMMENDATIONS: I recommend postoperative radiation of 40.05 Wagner in 15 fractions to the left chest wall and regional lymphatics. We will not need a scar boost. The pros and cons, risks and benefitsof treatment were discussed. After she completes chemotherapy she will call my nurse Ilana to return for treatment planning. It was a pleasure to meet Ms Brown. Courtney Sams MD Total time of patient care on day of service including time prior to, face to face with patient, and following visit spent in reviewing records, lab results, imaging studies, discussion with patient,and documentation/charting was > 45 minutes. Errors in dictation may reflect use of voice recognition software and not all errors in legal recruiter may have been detected prior to signing. documented in this encounter Plan of Treatment Upcoming Encounters Date Type Department Care Team (Late st Contact Info) Description 09/18/2024 3:30 PM EST Office Visit [facility] HEMATOLOGY & ONCOLOGY [address] [facility] [address] [place] [phone] Bre Crenshaw MD [address] [facility] [address] [place] [address] 12/31/2024 9:00 AM EDT Office Visit [facility] UROLOGY [address] [facility] [address] [place] [address] Oralia Saha APRN [address] [facility] [address] [place] [address] 05/12/2025 1:45 PM EDT Office Visit [facility] CARDIOLOGY [address] [facility] [address] [place] [phone] Obed Woodard MD [address] [facility] [address] [place] [address] documented as of this encounter Visit Diagnoses Diagnosis Malignant neoplasm of lower-outer quadrant of left breast of female, estrogen receptor positive- Primary documented in this encounter Care Teams Singer Songwriter Relationship Specialty Start Date End Date Herbert Hair MD [address] [facility] [address] [place] [address] PCP - General Adolescent Medicine 03/03/22 documented as of this encounter
--- OUTSIDE RECORDS SUMMARY | 2024-08-17 15:54 | XMS_ITS | Encounter Summary ---
Author Organization [facility] Address [address] [place] [address] Care Team Providers Care Metal Grinder Name Role Phone Herbert Hair MD Primary Care Provider Encounter Details Date Type Department Care Team (Latest Contact Info) Description 07/11/2022 11:37 AM EDT - 07/11/2022 11:59 PM EDT Hospital Encounter [facility] [address] [facility] [address] [place] [address] Discharge Disposition: Home or Self [...] 1 tablet by mouth Daily. 3 Vit-Fe Csjbqqu-EL-DCY ( VITAMIN/MIN +DHA PO) Take 1 tablet [...] [facility] [address] [facility] [address] [place] [phone] Bre Crenshaw MD [address] [facility] [address] [place] [address] 12/31/2024 9:00 AM EDT Office Visit [facility] UROLOGY [address] [facility] [address] [place] [address] Oralia Saha APRN [address] [facility] [address] [place], [place] [id number] 05/12/2025 1:45 PM EDT Office Visit [facility] CARDIOLOGY [address] [facility] [address] [place] [phone] Obed Woodard MD [address] [place] [address] documented as of this encounter Visit Diagnoses Not on filedocumented in this encounter Additional Health Concerns Assessment Noted Time PHQ-2 Depression Total Score: 2 07/11/20 22 1:07 PM EDT documented as of this encounter Care Teams Metal Grinder Relationship Specialty Start Date End Date Herbert Hair MD [address] [facility] [address] [place] [address] PCP - General Adolescent Medicine 03/03/22 documented as of this encounter
--- OUTSIDE RECORDS SUMMARY | 2024-08-17 15:54 | XMS_ITS | Encounter Summary ---
Author Organization [facility] Address [address] [place] [address] Care Team Providers Care Energy Auditor Name Role Phone Herbert Hair MD Primary Care Provider [phone] Reason for Visit * Auth/Cert Specialty Diagnoses / Procedures Referred By Nasrin hernandez Referred To Contact Diagnoses Malignant neoplasm of lower-outer quadrant of left female breast . Procedures DC MASTECTOMY, SIMPLE, COMPLETE DC REMOVE ARMPITS LYMPH NODES COMPLT LEFT BREAST MASTECTOMY, LEFT AXILLARY NODE DISSECTION, PROPHYLATIC RIGHT MASTECTOMY Referral ID Status Reason Start Date Expiration Date Visits Re quested Visits Authorized [id number] 1 1 Encounter Details Date Type Department Care Team (Late st Contact Info) Description 06/13/2022 6:51 AM EDT - 06/14/2022 10:37 AM EDT Hospital Encounter [facility] [address] [place] [id number] An Bell MD [address] [place] [address] Malignant neoplasm of lower-outer quadrant of left female breast (Primary Dx) Discharge Disposition: Home or Self Care Social [...] Sign Reading Time Taken Comments Blood Pressure 118/67 06/14/2022 7:00 AM EDT Pulse 76 06/14/2022 7:00 AM EDT Temperature 36.8 ??C (98.2 ??F) 06/14/2022 7:00 AM ED T Respiratory Rate 16 06/14/2022 7:00 AM EDT Oxygen Saturation 96% 06/14/2022 7:00 AM EDT Inhaled Oxygen Concentration - - Weight 90.3 kg (199 lb) 06/13/2022 7:46 AM EDT Height 154.9 cm (5' 1 ) 06/13/2022 7:46 AM EDT Body Mass Index 37.6 06/13/2022 7:46 AM EDT documented in this encounter Discharge Instructions * Attachments The following attachments cannot be sent through Care Everywhere. * Total or Modified Radical Mastectomy (Scottish) * Total or Modified Radical Mastectomy Care After (Scottish) * [place] Lymph Node Biopsy (Scottish) * [place] Lymph Node Biopsy Care After (Scottish) * Surgical Drain Home Care (Scottish) * Form - Surgical Drain Record (Scottish) * Prophylactic Mastectomy Information (Scottish) documented in this encounter Medications at Time of Discharge fluticasone (FLONASE) 50 MCG/ACT nasal spray Administer 2 sprays into the nostril(s) as directed by provider Daily. oxyCODONE (ROXICODONE) 5 MG immediate release tabletIndication s:Malignant neoplasm of lower-outer quadrant of left female breast Take 1 tablet by mouth Every 8 (Eight) Hours As Needed for Severe Pain for up to 3 days. 7 tablet 06/14/2022 9:38 AM EDT 06/14/2022 2 busPIRone (BUSPAR) 7.5 MG tablet Take [...] 1 tablet by mouth Daily. 3 Vit-Fe Tefjyuj-UQ-GIX ( VITAMIN/MIN +DHA PO) Take 1 tablet [...] as of this encounter Progress Notes * An Bell MD - 06/14/2022 7:55 AM EDT Leydi Singh Coppage 1975 [id number] Surgery Progress Note Date of visit: 06/14/2022 Subjective: Comfortable Ambulating and voiding well Objective: BP 118/67 (BP Location: Right arm, Patient Position: Lying) Pulse 76 Temp 98.2 ??F (36.8 ??C) (Temporal) Resp 16 Ht 154.9 cm (61 ) Wt 90.3 kg (199 lb) SpO2 96% BMI 37.60 kg/m?? Intake/Output Summary (Last 24 hours) at 06/14/2022 0755 Last data filed at 06/14/2022 0700 Gross per 24 hour Intake 1940 ml Output 2435 ml Net -495 ml CV: Regular rate and rhythm L: normal air entry BREAST: Bilateral mastectomy incisions are intact Flaps are viable with no swelling Adequate Valentin-Newberry drainage LABS: Results from last 7 days Lab Units 06/09/22 1211 WBC 10*3/mm3 6.60 HEMOGLOBIN g/dL 14.6 HEMATOCRIT % 41.2 PLATELETS 10*3/mm3 310 Results from last 7 days Lab Units 06/09/22 1211 SODIUM mmol/L 142 POTASSIUM mmol/L 3.5 CHLORIDE mmol/L 101 CO2 mmol/L 31.0* BUN mg/dL 11 CREATININE mg/dL 0.86 CALCIUM mg/dL 9.6 BILIRUBIN mg/dL 0.3 ALK PHOS U/L 58 ALT (SGPT) U/L 12 AST (SGOT) U/L 11 GLUCOSE mg/dL 115* Results from last 7 days Lab Units 06/09/22 1211 SODIUM mmol/L 142 POTASSIUM mmol/L 3.5 CHLORIDE mmol/L 101 CO2 mmol/L 31.0* BUN mg/dL 11 CREATININE mg/dL 0.86 GLUCOSE mg/dL 115* CALCIUM mg/dL 9.6 No results found for: LIPASE Assessment/ Plan: Stable course status post left modified radical mastectomy and prophylactic rightsimple mastectomy patient is progressing well Instructions were given to her Tylenol 1000 mg p.o. 3 times daily for 4 days Oxycodone as needed Home today follow-up in the cancer clinic on 06/21/2022 Problem List Items Addressed This Visit Hematology and Neoplasia Malignant neoplasm of lower-outer quadrant of left female breast (HCC) Relevant Orders Tissue Pathology Exam An Bell MD 06/14/2022 07:55 EDT documented in this encounter H&P Notes * An Bell MD - 06/13/2022 7:35 AM EDT [facility] Pre-op Full history and physical note from office is attached. VS: BP 144/98 HR 66 RR 16 T 98.2 Sat 98%RA Immunizations: Influenza: No Pneumococcal: No Tetanus: UTD Covid 1 of 1: 2020 LAB Results: Lab Results Component Value Date WBC 6.60 06/09/2022 HGB 14.6 06/09/2022 HCT 41.2 06/09/2022 MCV 89.2 06/09/2022 PLT 310 06/09/2022 GLUCOSE 115 (H) 06/09/2022 BUN 11 06/09/2022 CREATININE 0.86 06/09/2022 NA 142 06/09/2022 K 3.5 06/09/2022 CL 101 06/09/2022 CO2 31.0 (H) 06/09/2022 CALCIUM 9.6 06/09/2022 ALBUMIN 4.40 06/09/2022 AST 11 06/09/2022 ALT 12 06/09/2022 BILITOT 0.3 06/09/2022 Clinical Information Left breast mass 4:00, suspect cancer Final Diagnosis BREAST, LEFT, MASS AT 4:00, ULTRASOUND-GUIDED BIOPSY: Invasive ductal carcinoma (~10 mm in greatest measured dimension) Lawn combined histologic grade 2 Tubule formation - 3 Nuclear pleomorphism - 2 Mitotic activity - 1 Estrogen receptor - Positive Progesterone receptor - Positive (low/weak) HER2/leti - Negative at 1021 Comment This report was sent to the radiologist at [facility] on 05/09/2022. Gross Description 1. Breast, Left. Received in formalin labeled left breast mass 4:00, suspect cancer is a left ultrasound-guided biopsy consisting of a 1.5 x 0.8 x 0.2 cm aggregate of fibroadipose breast tissue fragments, submitted entirely in block 1A. Time in formalin: 1150 on 05/05/2022. Cold ischemic time is not provided and total time in formalin is greater than 6 and less than 72 hours. LDP Special Stains IMMUNOHISTOCHEMICAL RESULTS (IHC): E-cadherin: Positive (supports diagnosis of invasive ductal) SMH and p63: Demonstrates loss of myoepithelial cells in areas of interest (supports invasive carcinoma; no evidence of DCIS) Estrogen Receptor RESULT: Positive 90% 2-3+ (INTENSITY SCORE) Progesterone Receptor RESULT: Low positive 10% 1+ (INTENSITY SCORE) Her2/Leti oncoprotein RESULT: Negative 25% 1+ (INTENSITY SCORE) Cancer Staging (if applicable) Cancer Patient: __ yes __no __unknown__N/A; If yes, clinical stage II,T:2__ N:1__M:_0_ Impression: Stage II (T2, N1, M0) IDC left breast; ER/DC+ HER2- Plan: LEFT BREAST MASTECTOMY, LEFT AXILLARY NODE DISSECTION, PROPHYLATIC RIGHT MASTECTOMY Lyndsey Ag APRN 06/13/2022 07:35 EDT Source [facility] - [facility] [place] - 05/24/2022 12:00 AM EDT documented in this encounter Nursing Notes * Hilda Awan RN - 06/14/2022 2:51 AM EDT Goal Outcome Evaluation: Plan of Care Reviewed With: patient Progress: improving Outcome Evaluation: pt pain well controlled, tolerating diet, ambulating, voiding without difficulty. resting well. * Maxine Terrazas RN - 06/13/2022 7:44 PM EDT Goal Outcome Evaluation: Plan of Care Reviewed With: patient, family Progress: improving Scuds in place. Fluids and antibiotics infusing. Ambulation in room. Tolerating current pain care regimen. Adequate UOP. 2x KALEIGH - draining to suction. RA. Awaiting further orders. * Cici Lainez RN - 06/13/2022 12:39 PM EDT Patient complaint of chest pain going into her back. Pain meds given per orders. Dr ritter at bedside talking with patient. Orders received and noted-ekg in progress documented in this encounter OR Notes * Op Note - An Bell MD - 06/13/2022 9:51 AM EDT Operative Note Leydi Brown [id number] 1975 Date of Surgery: 06/13/2022 Pre-Operative Diagnosis: Left breast cancer in the lower outer quadrant with axillary node metastases Post-Operative Diagnosis: Same Procedure: Left simple mastectomy Left axillary lymph node dissection Prophylactic right simple mastectomy Anesthesia: General Surgeon: An Bell MD Manager User Experience: Mikhail Manzo RN; Marly Scott RN Scrub Person: Denton Tinoco Welder Setter Electron Beam Machine: Audrey Burris; Yohana Cavazos PCT Recovery Rn: Cherrie Spivey PA Recovery Rn: Cherrie Spivey PA Estimated Blood Loss: Very minimal Findings: Multiple nodes appreciated in the left axilla with a clip noted in the notes Complications: None Indication for Procedure: Mrs. Brown is a pleasant 47-year-old lady who presented with abnormal left breast mammogram showing a focus of malignancy in the lower outer quadrant with axillary node metastases. PET scan was unremarkable. She presents today for the above procedure with no plan for juany nstruction. Procedure: Patient was taken to the operating by anesthesia placed supine on the table. Following induction of general endotracheal anesthesia, SCDs were placed. She received 2 g of Kefzol IV. Anesthesia placed ultrasound-guided pectoralis nerve blocks bilaterally. The breasts, chest, axillas and upper arms were then prepped and draped in a sterile fashion. Timeout was observed. We proceeded with the prophylactic right simple mastectomy first which was done via a transverse elliptical incision, encompassing the areola and nipple complex. A superior to inferior flaps were raised dissecting the breast tissue away from the flaps down to where the muscle was exposed, maintaining adequate thickness of the flaps. The breast was then removed of the underlying pectoralis major muscle taking the fascia along with the specimen. Larger vessels of the breast were ligated with 3-0 silk suture. The breast was removed as a whole, marked with a silk suture laterally, weighed and sent to pathology for permanent section. The wound was irrigated with warm water with clear return of fluid noted. We then proceeded with the left simple mastectomy which was done in a similar fashion. Once in the axilla we undefined multiple large lymph nodes that were removed en bloc with the specimen. Node dissection encompassed level 1 and level 2 axillary nodes. The long thoracic, thoracodorsal and intercostal brachial nerves were preserved. The breast was also removed of the underlying pectoralis major muscle, marked with a silk suture laterally and weighed. The nodes were then excised of the breast and specimen x-ray showed the clip in the right nodes. They were sent to pathology then for permanentsection. The wound was then irrigated with warm water with clear return of fluid noted. 15 German round Valentin-Newberry drains were placed percutaneously on either side and anchored to the skin with 2-0 silk suture. The subcutaneous tissues were approximated with interrupted 3-0 Vicryl sutures. Exofin fusion Premiere dressing was applied. The patient tolerated procedure well with no complications. She was extubated and taken to the recovery room in a stable condition. Sponge count and needle count were correct at the end of the procedure. Recovery Rn: Cherrie Spivey PA was responsible for performing the following activities: Retraction, Suction, Suturing, Closing and Placing Dressing and their skilled assistance was necessary for the success of this case. An Bell MD 06/13/22 12:10 EDT * Brief Op Note - An Bell MD - 06/13/2022 9:51 AM EDT BREAST MASTECTOMY WITH SENTINEL NODE BIOPSY AND AXILLARY NODE DISSECTION Progress Note Leydi Singh Coppage 06/13/2022 Pre-op Diagnosis: Left breast cancer in the lower outer quadrant with axillary node metastases Post-Op Diagnosis Codes: * Malignant neoplasm of lower-outer quadrant of left female breast [C50.512] Procedure/CPT?? Codes: Procedure(s): LEFT BREAST MASTECTOMY, LEFT AXILLARY NODE DISSECTION, PROPHYLATIC RIGHT MASTECTOMY Surgeon(s): An Bell MD Anesthesia: General Staff: Manager User Experience: Mikhail Manzo RN; Marly Scott RN Scrub Person: Denton Tinoco Welder Setter Electron Beam Machine: Audrey Burris; Yohana Cavazos PCT Recovery Rn: Cherrie Spivey PA Recovery Rn: Cherrie Spivey PA Estimated Blood Loss: minimal Urine Voided: * No values recorded between 06/13/2022 9:23 AM and 06/13/2022 12:06 PM * Specimens: Specimens ID Source Type Tests Collected By Collected At Frozen? A Breast, Right Tissue ?? TISSUE PATHOLOGY EXAM An Bell MD 06/13/22 1037 No Description: stitch is lateral B Breast, Left Tissue ?? TISSUE PATHOLOGY EXAM An Bell MD 06/13/22 1130 No Description: suture is lateral C Lymph Node Tissue ?? TISSUE PATHOLOGY EXAM An Bell MD 06/13/22 1135 No Description: Left axillary lymph node Drains: Closed/Suction Drain 1 Right Breast Bulb 15 Fr. (Active) Closed/Suction Drain 1 Left Breast Bulb 15 Fr. (Active) Findings: Multiple palpable nodes were noted. Clip appreciated in the nodes Complications: None Recovery Rn: Cherrie Spivey PA was responsible for performing the following activities: Retraction, Suction, Suturing, Closing andPlacing Dressing and their skilled assistance was necessary for the success of this case. An Bell MD Date: 06/13/2022 Time: 12:06 EDT documented in this encounter Plan of Treatment Upcoming Encounters Date Type Department Care Team (Late st Contact Info) Description 09/18/2024 3:30 PM EST Office Visit [facility] [address] [facility] [address] [place] [address] Bre Crenshaw MD [address] [facility] [address] [place] [address] 12/31/2024 9:00 AM EDT Office Visit [facility] [address] [facility] [address] [place], [place] [id number] Oralia SahaDWAYNE [address] [facility] [address] [place] [address] 05/12/2025 1:45 PM EDT Office Visit [facility] [address] [facility] [address] [place] [address] Obed Woodard MD [address] [facility] [address] [address] [place] [address] documented as of this encounter Procedures Procedure Name Priority Date/Time Associated Diagnosis Comments TISSUE PATHOLOGY EXAM Routine 06/13/2022 10:37 AM EDT Malignant neoplasm of lower-outer quadrant of left female breast BREAST MASTECTOMY WITH SENTINEL NODE BIOPSY AND AXILLARY NODE DISSECTION 06/13/2022 9:08 AM EDT Malignant neoplasm of lower-outer quadrant of left female breast Special Needs PA, NEOPROBE * POCT PEFORM URINE STAT 06/13/2022 7:54 AM EDT POCT GLUCOSE FINGERSTICK Routine 06/13/2022 7:18 AM EDT SCANNED - TELEMETRY 06/13/2022 documented in this encounter Results * Tissue Pathology Exam (06/13/2022 10:37 AM EDT) Case Report Surgical Pathology Report ? Case: [id number] ? Authorizing Provider: ??An Bell MD ?? Collected: ? 06/13/2022 10:37 AM ? Ordering Location: ? [facility] ?? Received: ?06/13/2022 11:11 AM ? OR ? Pathologist: ? Jordan Esqueda MD ? Specimens: ?? 1) - Breast, Right, stitch is lateral ? 2) - Breast, Left, suture is lateral ? 3) - Axilla, Left, Left axillary lymph node ? 06/14/2022 4:42 PM EDT [facility] Clinical Information Malignant neoplasm of lower-outer quadrant of left female breast 06/14/2022 4:42 PM EDT [facility] Final Diagnosis BREAST, RIGHT, SIMPLE MASTECTOMY: Benign breast parenchyma with extensive fibrocystic change Unremarkable skin and nipple Negative for atypical ductal hyperplasia, DCIS, or invasive carcinoma All margins benign 2. BREAST, LEFT, SIMPLE MASTECTOMY: Invasive ductal carcinoma, Davey combined histologic grade 2, 2.4 cm in greatest measure dimension Unremarkable skin and nipple See CAP template below for further details 3. LEFT AXILLARY LYMPH NODES, DISSECTION: 2 lymph nodes with metastatic ductal carcinoma (/) 06/14/2022 4:42 PM EDT [facility] Comment INVASIVE CARCINOMA OF THE BREAST SPECIMEN: Procedure: Total mastectomy Specimen Laterality: Left TUMOR: Tumor Site: Lower outer quadrant Histologic Type: Invasive carcinoma of no special type (ductal) Glandular (Acinar) / Tubular Differentiation: Score 3 Nuclear Pleomorphism: Score 2 Mitotic Rate: Score 1 Overall Grade: Grade 2 (scores of 6 or 7) Tumor Size: 24 mm x 18 mm x 18 mm Tumor Focality: Single focus of invasive carcinoma Ductal Carcinoma In Situ (DCIS): Not identified Lobular Carcinoma In Situ (LCIS): Not identified Lymphovascular Invasion: Present Dermal Lymphovascular Invasion: Not identified Treatment Effect in the Breast: No known presurgical therapy MARGINS: Invasive Carcinoma Margins: - Uninvolved by invasive carcinoma Distance from Closest Margin (Millimeters): Greater than 5 mm LYMPH NODES: Regional Lymph Nodes: - Involved by tumor cells Number of Lymph Nodes with Macrometastases (> 2 mm): 2 Number of Lymph Nodes with Micrometastases (> 0.2 mm to 2 mm and / or > 200 cells): 0 Size of Largest Metastatic Deposit (Millimeters): 12 mm Extranodal Extension: Not identified Total Number of Lymph Nodes Examined: 8 PATHOLOGIC STAGE CLASSIFICATION (pTNM, AJCC 8th Edition): Note: Reporting of pT, pN, and (when applicable) pM categories is based on information available to the pathologist at the time the report is issued. As per the AJCC (Chapter 1, 8th Ed.) it is the managing physician? s responsibility to establish the final pathologic stage based upon all pertinent information, including but potentially not limited to this pathology report. Primary Tumor (pT): pT2 Regional Lymph Nodes (pN): pN1a IMMUNOHISTOCHEMICA L RESULTS (IHC): From prior biopsy E-cadherin: Positive (supports diagnosis of invasive ductal) SMH and p63: Demonstrates loss of myoepithelial cells in areas of interest (supports invasive carcinoma; no evidence of DCIS) Estrogen Receptor RESULT: Positive 90% 2-3+ (INTENSITY SCORE) Progesterone Receptor RESULT: Low positive 10% 1+ (INTENSITY SCORE) Her2/Leti oncoprotein RESULT: Negative 25% 1+ (INTENSITY SCORE) 06/14/2022 4:42 PM T [facility] Gross Description 1. Breast, Right. Received in formalin labeled right breast is a 1574 g, 29 x 20 x 6 cm intact right simple breast partially surfaced by 20 x 13 cm marr, smooth skin ellipse with an everted nipple measuring 1.4 cm in diameter. No areas of skin thickening, retraction or abnormal pigmentation are identified and there is a single stitch at the lateral edge of the skin. The superficial margin is inked blue, the deep margin black and sectioning from superior to inferior reveals a fat to fibrous ratio of approximately 80: 20 with scattered fibrocystic tissue displaying multiple bluegray cyst. No distinct masses, biopsy cavities or clips are identified and there are no lymph nodes in the outer quadrant. The cold ischemic time is 1 minute 13 seconds any total time in formalin is greater than 6 and less than 72 hours. Cloth Examiner Hand sections are submitted in 10 blocks as follows: 1 A- 1B-upper inner quadrant; 1C-1D-upper outer quadrant; 1E- 1F-lower outer quadrant; 1G-1H-lower inner quadrant; 1I-subareolar; 1J-nipple. 2. Breast, Left. Received in formalin labeled left breast is a 1432 g, 25.5 x 24 x 6 cm intact left simple breast partially surfaced by 25 x 11.5 cm marr, smooth skin ellipse with an everted nipple measuring 1.2 cm in diameter. No areas of skin thickening, retraction or abnormal pigmentation are present and there is a single stitch at the lateral edge of the skin. The superficial margin is inked blue, the deep margin black and sectioning from superior to inferior reveals a 2.4 x 1.8 x 1.8 cm ill-defined pink, lobular lower outer quadrant mass with a single safety pin shaped biopsy clip. The mass is 3.5 cm from the deep margin, 1.9 cm from the skin, 2 cm from the superficial soft tissue margin and greater than 3 cm from the nipple/areolar complex. The remaining cut surface has a fat to fibrous ratio of approximately 80: 20 without additional masses or biopsy cavities. There are no lymph nodes in the outer quadrant or within the breast parenchyma. The cold ischemic time is not provided, a total time in formalin is greater than 6 and less than 72 hours. Cloth Examiner Hand sections are submitted as follows: 2 A- perpendicular deep margin closest to mass; 2B-perpendicular skin closest to mass; 2C-perpendicular superficial soft tissue closest to mass; 2D-2F-mass; 2G-upper outer quadrant; 2H-upper inner quadrant; 2I-lower inner quadrant; 2J-subareolar; 2K-nipple, bisected. 3. Axilla, Left. Received in formalin labeled left axillary lymph node is an 8 x 5.2 x 2.8 cm aggregate of yellow lobular adipose tissue with a marr rubbery lymph nodes ranging from 0.5 x 0.4 x 0.3 cm to 3.2 x 1.9 x 1.5 cm. The lymph nodes are submitted in their entirety as follows: 3 A- intact nodes (4); 3B-2 bisected nodes, differentially inked; 0K-4X-ijmujaau node; 3 E- 3F-bisected node. HDM 06/14/2022 4:42 PM EDT [facility] Microscopic Description The slides are reviewed and demonstrate histopathologic features supporting the above rendered diagnosis. 06/14/2022 4:42 PM EDT [facility] Tissue Right breast structure / Unknown 06/13/2022 10:37 AM EDT 06/13/2022 11:11 AM EDT Tissue specimen (specimen) Left breast structure / Unknown 06/13/2022 11:30 AM EDT 06/13/2022 12:13 PM EDT Tissue specimen (specimen) Structure of left axillary region / Unknown 06/13/2022 11:35 AM EDT 06/13/2022 12:18 PM EDT us An Bell MD PATHOLOGY/CYTOLOGY ORDERA BLES Final Result [facility]
[address] [place] [address], * POC Urine (06/13/2022 7:54 AM EDT) HCG, Urine, QL Negative Negative [facility] Lot Number [id number] [facility] Internal Positive Control Positive Positive, Passed [facility] Internal Negative Control Negative Negative, Passed [facility] Expiration Date 06-23 [facility] Urine 06/13/2022 7:54 AM EDT An Bell MD POINT OF CARE TEST ORDERA BLES Final Result [facility]
[address] [place] [address], * POC Glucose Once (06/13/2022 7:18 AM EDT) Glucose 102 70 - 130 mg/dL 06/13/2022 7:20 AM EDT [facility] Comment:Meter: [id number] Op erator: [id number] Robbi Michelle Blood 06/13/2022 7:18 AM EDT 06/13/2022 7:20 AM EDT An Bell MD POINT OF CARE TEST ORDERA BLES Final Result [facility]
[address] [place] [address], * SCANNED - TELEMETRY (06/13/2022) [facility] Onbase ECG ORDERABLES Final Result documented in this encounter Visit Diagnoses Diagnosis Malignant neoplasm of lower-outer quadrant of left female breast- Primary Malignant neoplasm of lower-outer quadrant of left female breast documented in this encounter Admitting Diagnoses Diagnosis Malignant neoplasm of lower-outer quadrant of left female breast documented in this encounter Administered Medications Inactive Administered Medications - up to 3 most recent administrations Medication Order MAR Action Action Date Dose Rate Site acetaminophen (TYLENOL) tablet 1,000 mg 1,000 mg, Oral, Once, On Sun06/13/22 at 0702, For 1 dose, Based on patient request [...] Pain Score of 7-10, CPOT 5-8 Given 06/13/2022 7:22 AM EDT 1,000 mg acetaminophen (TYLENOL) tablet 1,000 mg 1,000 mg, Oral, Every 6 Hours, First dose on Sun06/13/22 at 1212, For 48 hours, Based on patient request - if ordered [...] Pain Score of 7-10, CPOT 5-8 Given 06/14/2022 5:59 AM EDT 1,000 mg Given 06/14/2022 12:32 AM EDT 1,000 mg Given 06/13/2022 6:54 PM EDT 1,000 mg busPIRone (BUSPAR) tablet 15 mg 15 mg, Oral, Nightly, First dose on Sun06/13/22 at 2100, Caution: Look alike/sound alike drug alert. Take with food. Avoid grapefruit juice. Given 06/13/2022 9:11 PM EDT 15 mg ceFAZolin in dextrose (ANCEF) IVPB solution 2 g 2 g, Intravenous, Administer over 30 Minutes, Every 8 Hours, First dose on Sun06/13/22 at 1810, For 2 doses, Time Dose from Pre-Op Dose Caution: Look alike/sound alike drug alert, Indications: Surgical ProphylaxisIndications:Surgical Prophylaxis New Bag 06/14/2022 2:37 AM EDT 2 g New Bag 06/13/2022 6:55 PM EDT 2 g diazePAM (VALIUM) tablet 2 mg 2 mg, Oral, Every 8 Hours PRN, Muscle Spasms, Starting on Sun06/13/22 at 1209, For 7 days, {MARK} Caution: Look alike/sound alike drug alert. Avoid use with Chapeno's Wort. Avoid grapefruit juice. Given 06/13/2022 9:13 PM EDT 2 mg famotidine (PEPCID) tablet 20 mg 20 mg, Oral, Once, On Sun06/13/22 at 0702, For 1 dose Given 06/13/2022 7:22 AM EDT 20 mg fentaNYL citrate (PF) (SUBLIMAZE) 50 mcg/mL injection - ADS Override Pull Starting on Sun06/13/22 at 1355, For 1 dose, Created by cabinet override If given for pain, use the following pain scale: Mild Pain = Pain Score of 1-3, CPOT 1-2 Moderate Pain = Pain Score of 4-6, CPOT 3-4 Severe Pain = Pain Score of 7-10, CPOT 5-8 fentaNYL citrate (PF) (SUBLIMAZE) injection 50 mcg 50 mcg, Intravenous, Every 5 Minutes PRN, Moderate Pain, Starting on Sun06/13/22 at 1226, Maximum total dose of fentanyl is 100 mcg. If given for pain, use the following pain scale: Mild Pain = Pain Score of 1-3, CPOT 1-2 Moderate Pain = Pain Score of 4-6, CPOT 3-4 Severe Pain = Pain Score of 7-10, CPOT 5-8 Given 06/13/2022 1:56 PM EDT 50 mcg hydrALAZINE (APRESOLINE) 20 MG/ML injection - ADS Override Pull Starting on Sun06/13/22 at 1308, For 1 dose, Created by cabinet override Caution: Look alike/sound alike drug alert hydrALAZINE (APRESOLINE) injection 5 mg 5 mg, Intravenous, Every 10 Minutes PRN, High Blood Pressure, for systolic blood pressure greater than 180 mmHg or diastolic blood pressure greater than 105 mmHg, Starting on Sun06/13/22 at 1310, Up to 20 mg. Caution: Look alike/sound alike drug alert Given 06/13/2022 1:11 PM EDT 5 mg HYDROmorphone (DILAUDID) 1 MG/ML injection - ADS Override Pull Starting on Sun06/13/22 at 1228, For 1 dose, Created by cabinet override {MARK} Caution: Look alike/sound alike drug alert If given for pain, use the following pain scale: Mild Pain = Pain Score of 1-3, CPOT 1-2 Moderate Pain = Pain Score of 4-6, CPOT 3-4 Severe Pain = Pain Score of 7-10, CPOT 5-8 HYDROmorphone (DILAUDID) injection 0.3 mg 0.3 mg, Intravenous, Every 2 Hours PRN, Severe Pain, Starting on Sun06/13/22 at 1209, For 7 days, If both oral and IV routes of analgesics are ordered, use PO route unless NPO or oral not tolerated {MARK} Caution: Look alike/sound alike drug alert If given for pain, use the following pain scale: Mild Pain = Pain Score of 1-3, CPOT 1-2 Moderate Pain = Pain Score of 4-6, CPOT 3-4 Severe Pain = Pain Score of 7-10, CPOT 5-8 HYDROmorphone (DILAUDID) injection 0.5 mg 0.5 mg, Intravenous, Every 10 Minutes PRN, Severe Pain, Starting on Sun06/13/22 at 1226, For 10 days, Maximum total dose of hydromorphone is 2 mg. If given for pain, use the following pain scale: Mild Pain = Pain Score of 1-3, CPOT 1-2 Moderate Pain = Pain Score of 4-6, CPOT 3-4 Severe Pain = Pain Score of 7-10, CPOT 5-8 Given 06/13/2022 12:46 PM EDT 0.5 mg Given 06/13/2022 12:38 PM EDT 0.5 mg Given 06/13/2022 12:28 PM EDT 0.5 mg lactated ringers infusion 9 mL/hr, Intravenous, Continuous, Starting on Sun06/13/22 at 0702, May switch to NS IV at KVO if renal / if indicated New Bag 06/13/2022 7:24 AM EDT 9 mL/hr 9 mL/hr levothyroxine (SYNTHROID, LEVOTHROID) tablet 25 mcg 25 mcg, Oral, Daily, First dose on Sun06/13/22 at 1212, Take on empty stomach. Given 06/14/2022 8:22 AM EDT 25 mcg lidocaine PF 1% (XYLOCAINE) injection 0.5 mL 0.5 mL, Injection, Once As Needed, IV Start, Starting on Sun06/13/22 at 0700, For 1 dose Given 06/13/2022 7:23 AM EDT 0.5 mL losartan (COZAAR) 50 mg, hydroCHLOROthiazide (HYDRODIURIL) 12.5 mg Oral, Nightly, First dose (after last modification) on Sun06/13/22 at 2100, Give both components for approved alternative meloxicam (MOBIC) tablet 15 mg 15 mg, Oral, Once, On Sun06/13/22 at 0702, For 1 dose, Do Not Give if CrCl < 15 mL/min If given for pain, use the following pain scale: Mild Pain = Pain Score of 1-3, CPOT 1-2 Moderate Pain = Pain Score of 4-6, CPOT 3-4 Severe Pain = Pain Score of 7-10, CPOT 5-8 Given 06/13/2022 7:22 AM EDT 15 mg meloxicam (MOBIC) tablet 15 mg 15 mg, Oral, Daily, First dose on Sun06/14/22 at 0900, Take with food. Based on patient request - if ordered for moderate or severe pain, provider allows for administration of a medication prescribed for a lower pain scale. If given for pain, use the following pain scale: Mild Pain = Pain Score of 1-3, CPOT 1-2 Moderate Pain = Pain Score of 4-6, CPOT 3-4 Severe Pain = Pain Score of 7-10, CPOT 5-8 Given 06/14/2022 8:22 AM EDT 15 mg midazolam (VERSED) 2 MG/2ML injection - ADS Override Pull Starting on Sun06/13/22 at 1254, For 1 dose, Created by cabinet override {MARK} midazolam (VERSED) injection 2 mg 2 mg, Intravenous, Once, On Sun06/13/22 at 1255, For 1 dose, {MARK} Given 06/13/2022 12:55 PM EDT 1 mg naloxone (NARCAN) injection 0.1 mg 0.1 mg, Intravenous, Every 5 Minutes PRN, Respiratory Depression, Starting on Sun06/13/22 at 1209, If respiratory rate is less than 8 breaths/minute or patient is difficult to arouse stop any narcotics and contact physician. Administer slow IV push. Repeat as ordered until patient's respiratory rate is greater than 12 breaths/minute. oxyCODONE (ROXICODONE) 5 MG immediate release tablet - ADS Override Pull Starting on Sun06/13/22 at 1348, For 1 dose, Created by cabinet override {MARK} If given for pain, use the following pain scale: Mild Pain = Pain Score of 1-3, CPOT 1-2 Moderate Pain = Pain Score of 4-6, CPOT 3-4 Severe Pain = Pain Score of 7-10, CPOT 5-8 oxyCODONE (ROXICODONE) immediate release tablet 5 mg 5 mg, Oral, Every 4 Hours PRN, Severe Pain, Starting on Sun06/13/22 at 1209, For 7 days, If both oral and IV routes of analgesics are ordered, use PO route unless NPO or oral not tolerated {MARK} If given for pain, use the following pain scale: Mild Pain = Pain Score of 1-3, CPOT 1-2 Moderate Pain = Pain Score of 4-6, CPOT 3-4 Severe Pain = Pain Score of 7-10, CPOT 5-8 Given 06/14/2022 3:23 AM EDT 5 mg Given 06/13/2022 1:48 PM EDT 5 mg pregabalin (LYRICA) capsule 75 mg 75 mg, Oral, Once, On Sun06/13/22 at 0702, For 1 dose, {MARK} Given 06/13/2022 7:22 AM EDT 75 mg promethazine (PHENERGAN) suppository 6.25 mg 6.25 mg, Rectal, Every 6 Hours PRN, Nausea, Vomiting, Starting on Sun06/13/22 at 1208, Give Zofran first. Give Phenergan if Zofran not effective, promethazine (PHENERGAN) tablet 6.25 mg 6.25 mg, Oral, Every 6 Hours PRN, Nausea, Vomiting, Starting on Sun06/13/22 at 1208, Give Zofran first. Give Phenergan if Zofran not effective, {BKC} propranolol (INDERAL) tablet 20 mg 20 mg, Oral, Daily With Dinner, First dose on Sun06/13/22 at 1800 Given 06/13/2022 6:54 PM EDT 20 mg scopolamine patch 1 mg/72 hr 1 patch, Transdermal, Administer over 72 Hours, Continuous, Starting on Sun06/13/22 at 0702, For 72 hours, Do not apply if patient older than 65 or has history of glaucoma. {BKC} Medication Applied 06/13/2022 7:23 AM EDT 1 patch Behind Left Ear simethicone (MYLICON) 80 MG chewable tablet - ADS Override Pull Starting on Sun06/13/22 at 1254, For 1 dose, Created by cabinet override simethicone (MYLICON) chewable tablet 80 mg 80 mg, Oral, Once, On Sun06/13/22 at 1255, For 1 dose Given 06/13/2022 12:56 PM EDT 80 mg sodium chloride 0.9 % infusion 50 mL/hr, Intravenous, Continuous, Starting on Sun06/13/22 at 1212 New Bag 06/13/2022 3:35 PM EDT 50 mL/hr 50 mL/hr documented in this encounter Active and Recently Administered Medications Times are shown in EDT. Scheduled Medication Order 06/12/2022 06/13/2022 06/14/2022 acetaminophen (TYLENOL) tablet 1,000 mg (COMPLETED) 1,000 mg, Oral, Once, On Sun06/13/22 at 0702, For 1 dose, Based on patient request [...] = Pain Score of 7-10, CPOT 5-8 0722 (Given - Provider: Cindy Carr RN) acetaminophen (TYLENOL) tablet 1,000 mg 1,000 mg, Oral, Every 6 Hours, First dose on Sun06/13/22 at 1212, For 48 hours, Based on patient request - if ordered [...] = Pain Score of 7-10, CPOT 5-8 1600 (Not Given - Provider: Maxine Terrazas RN - Reason: Patient not available - Comment: pt was not on floor at this time)1854 (Given - Provider: Maxine Terrazas RN) 0032 (Given - Provider: Hilda Awan RN)0559 (Given - Provider: Hilda Awan, HUMZA) busPIRone (BUSPAR) tablet 15 mg 15 mg, Oral, Nightly, First dose on Sun06/13/22 at 2100, Caution: Look alike/sound alike drug alert. Take with food. Avoid grapefruit juice. 2110 (Given - Provider: Hilda Awan, HUMZA) ceFAZolin in dextrose (ANCEF) IVPB solution 2 g (COMPLETED) 2 g, Intravenous, Administer over 30 Minutes, Once, On Sun06/13/22 at 0702, For 1 dose, For Patient Weight < 120 kg. Caution: Look alike/sound alike drug alert, Indications: Surgical Prophylaxis 0935 (Given - Provider: CULLEN Yang) ceFAZolin in dextrose (ANCEF) IVPB solution 2 g (COMPLETED) 2 g, Intravenous, Administer over 30 Minutes, Every 8 Hours, First dose on Sun06/13/22 at 1810, For 2 doses, Time Dose from Pre-Op Dose Caution: Look alike/sound alike drug alert, Indications: Surgical Prophylaxis 185 (New Bag - Provider: Maxine Terrazas RN) 023 (New Bag - Provider: Hilda Awan, RN)0700 (Stopped - Provider: Ted Harris, RN) famotidine (PEPCID) tablet 20 mg (COMPLETED) 20 mg, Oral, Once, On Sun06/13/22 at 0702, For 1 dose 721 (Given - Provider: Cindy Carr, HUMZA) levothyroxine (SYNTHROID, LEVOTHROID) tablet 25 mcg 25 mcg, Oral, Daily, First dose on Sun06/13/22 at 1212, Take on empty stomach. 164 (Hold - Provider: Maxine Terrazas RN - Reason: Other - Comment: pt arrived on floor 1530 - stated she taken this med early this morning) 821 (Given - Provider: Ted Harris, HUMZA) losartan (COZAAR) 50 mg, hydroCHLOROthiazide (HYDRODIURIL) 12.5 mg Oral, Nightly, First dose (after last modification) on Sun06/13/22 at 2100, Give both components for approved alternative 2112 (Not Given - Provider: Hilda Awan, HUMZA - Reason: Patient/family refused) meloxicam (MOBIC) tablet 15 mg (COMPLETED) 15 mg, Oral, Once, On Sun06/13/22 at 0702, For 1 dose, Do Not Give if CrCl < 15 mL/min If given for pain, use the following pain scale: Mild Pain = Pain Score of 1-3, CPOT 1-2 Moderate Pain = Pain Score of 4-6, CPOT 3-4 Severe Pain = Pain Score of 7-10, CPOT 5-8 721 (Given - Provider: Cindy Carr, HUMZA) meloxicam (MOBIC) tablet 15 mg 15 mg, Oral, Daily, First dose on Sun06/14/22 at 0900, Take with food. Based on patient request - if ordered for moderate or severe pain, provider allows for administration of a medication prescribed for a lower pain scale. If given for pain, use the following pain scale: Mild Pain = Pain Score of 1-3, CPOT 1-2 Moderate Pain = Pain Score of 4-6, CPOT 3-4 Severe Pain = Pain Score of 7-10, CPOT 5-8 0822 (Given - Provider: Ted Harris RN) midazolam (VERSED) injection 2 mg (COMPLETED) 2 mg, Intravenous, Once, On Sun06/13/22 at 1255, For 1 dose, {MARK} 1255 (Given - Provider: Alissa Crystal, HUMZA) pregabalin (LYRICA) capsule 75 mg (COMPLETED) 75 mg, Oral, Once, On Sun06/13/22 at 0702, For 1 dose, {MARK} 0722 (Given - Provider: Cindy Carr RN) propranolol (INDERAL) tablet 20 mg 20 mg, Oral, Daily With Dinner, First dose on Sun06/13/22 at 1800 1854 (Given - Provider: Maxine Terrazas, HUMZA) simethicone (MYLICON) chewable tablet 80 mg (COMPLETED) 80 mg, Oral, Once, On Sun06/13/22 at 1255, For 1 dose 1256 (Given - Provider: Alissa Crystal, HUMZA) Continuous Medication Order 06/12/2022 06/13/2022 06/14/2022 lactated ringers infusion 9 mL/hr, Intravenous, Continuous, Starting on Sun06/13/22 at 0702, May switch to NS IV at KVO if renal / if indicated 0724 (New Bag - Provider: Cindy Carr RN) scopolamine patch 1 mg/72 hr 1 patch, Transdermal, Administer over 72 Hours, Continuous, Starting on Sun06/13/22 at 0702, For 72 hours, Do not apply if patient older than 65 or has history of glaucoma. {BKC} 0723 (Medication Applied - Provider: Cindy Carr RN) 1037 (Due: Medication Removed - Provider: Automatic Discharge Provider - Comment: Time automatically adjusted from order being discontinued) sodium chloride 0.9 % infusion (CANCELED) 50 mL/hr, Intravenous, Continuous, Starting on Sun06/13/22 at 1212 1535 (New Bag - Provider: Maxine Terrazas RN - Comment: just arrived to floor) PRN Medication Order 06/12/2022 06/13/2022 06/14/2022 diazePAM (VALIUM) tablet 2 mg 2 mg, Oral, Every 8 Hours PRN, Muscle Spasms, Starting on Sun06/13/22 at 1209, For 7 days, {MARK} Caution: Look alike/sound alike drug alert. Avoid use with Jeffrey's Wort. Avoid grapefruit juice. 2112 (Given - Provider: Hilda Awan RN) diphenhydrAMINE (BENADRYL) injection 12.5 mg 12.5 mg, Intravenous, Every 6 Hours PRN, Itching, Starting on Sun06/13/22 at 1208, 25 mg may be given IV push over less than 1 minute. Caution: Look alike/sound alike drug alert. This med may be ordered in other forms and routes. Before giving verify the last time the drug was given by any route/form. enalaprilat (VASOTEC) injection 1.25 mg 1.25 mg, Intravenous, Every 6 Hours PRN, High Blood Pressure, Starting on Sun06/13/22 at 1210, Give slow IV push over 5 minutes. fentaNYL citrate (PF) (SUBLIMAZE) injection 50 mcg (CANCELED) 50 mcg, Intravenous, Every 5 Minutes PRN, Moderate Pain, Starting on Sun06/13/22 at 1226, Maximum total dose of fentanyl is 100 mcg. If given for pain, use the following pain scale: Mild Pain = Pain Score of 1-3, CPOT 1-2 Moderate Pain = Pain Score of 4-6, CPOT 3-4 Severe Pain = Pain Score of 7-10, CPOT 5-8 1356 (Given - Provider: Alissa Crystal RN) hydrALAZINE (APRESOLINE) injection 5 mg (CANCELED) 5 mg, Intravenous, Every 10 Minutes PRN, High Blood Pressure, for systolic blood pressure greater than 180 mmHg or diastolic blood pressure greater than 105 mmHg, Starting on Sun06/13/22 at 1310, Up to 20 mg. Caution: Look alike/sound alike drug alert 1311 (Given - Provider: Alissa Crystal RN) HYDROmorphone (DILAUDID) injection 0.3 mg(Linked Group 1) 0.3 mg, Intravenous, Every 2 Hours PRN, Severe Pain, Starting on Sun06/13/22 at 1209, For 7 days, If both oral and IV routes of analgesics are ordered, use PO route unless NPO or oral not tolerated {MARK} Caution: Look alike/sound alike drug alert If given for pain, use the following pain scale: Mild Pain = Pain Score of 1-3, CPOT 1-2 Moderate Pain = Pain Score of 4-6, CPOT 3-4 Severe Pain = Pain Score of 7-10, CPOT 5-8 HYDROmorphone (DILAUDID) injection 0.5 mg (CANCELED) 0.5 mg, Intravenous, Every 10 Minutes PRN, Severe Pain, Starting on Sun06/13/22 at 1226, For 10 days, Maximum total dose of hydromorphone is 2 mg. If given for pain, use the following pain scale: Mild Pain = Pain Score of 1-3, CPOT 1-2 Moderate Pain = Pain Score of 4-6, CPOT 3-4 Severe Pain = Pain Score of 7-10, CPOT 5-8 1228 (Given - Provider: Cici Lainez RN)1238 (Given - Provider: Cici Lainez, HUMZA)1246 (Given - Provider: Cici Lainez RN) lidocaine PF 1% (XYLOCAINE) injection 0.5 mL (COMPLETED) 0.5 mL, Injection, Once As Needed, IV Start, Starting on Sun06/13/22 at 0700, For 1 dose 0723 (Given - Provider: Cindy Carr RN) naloxone (NARCAN) injection 0.1 mg(Linked Group 1) 0.1 mg, Intravenous, Every 5 Minutes PRN, Respiratory Depression, Starting on Sun06/13/22 at 1209, If respiratory rate is less than 8 breaths/minute or patient is difficult to arouse stop any narcotics and contact physician. Administer slow IV push. Repeat as ordered until patient's respiratory rate is greater than 12 breaths/minute. ondansetron (ZOFRAN) injection 4 mg 4 mg, Intravenous, Every 6 Hours PRN, Nausea, Vomiting, Starting on Sun06/13/22 at 1208 oxyCODONE (ROXICODONE) immediate release tablet 5 mg 5 mg, Oral, Every 4 Hours PRN, Severe Pain, Starting on Sun06/13/22 at 1209, For 7 days, If both oral and IV routes of analgesics are ordered, use PO route unless NPO or oral not tolerated {MARK} If given for pain, use the following pain scale: Mild Pain = Pain Score of 1-3, CPOT 1-2 Moderate Pain = Pain Score of 4-6, CPOT 3-4 Severe Pain = Pain Score of 7-10, CPOT 5-8 1348 (Given - Provider: Alissa Crystal, HUMZA) 0323 (Given - Provider: Hilda Awan RN) promethazine (PHENERGAN) suppository 6.25 mg(Linked Group 2) 6.25 mg, Rectal, Every 6 Hours PRN, Nausea, Vomiting, Starting on Sun06/13/22 at 1208, Give Zofran first. Give Phenergan if Zofran not effective, promethazine (PHENERGAN) tablet 6.25 mg(Linked Group 2) 6.25 mg, Oral, Every 6 Hours PRN, Nausea, Vomiting, Starting on Sun06/13/22 at 1208, Give Zofran first. Give Phenergan if Zofran not effective, {BKC} sterile water irrigation solution (CANCELED) As Needed, Starting on Sun06/13/22 at 0915 0915 (Given - Provider: An Bell MD - Comment: to field for fire safety)1037 (Given - Provider: An Bell MD) Linked Groups Order Group 1: HYDROmorphone (DILAUDID) injection 0.3 mgJump to med 0.3 mg, Intravenous, Every 2 Hours PRN, Severe Pain, Starting on Sun06/13/22 at 1209, For 7 days, If both oral and IV routes of analgesics are ordered, use PO route unless NPO or oral not tolerated {MARK} Caution: Look alike/sound alike drug alert If given for pain, use the following pain scale: Mild Pain = Pain Score of 1-3, CPOT 1-2 Moderate Pain = Pain Score of 4-6, CPOT 3-4 Severe Pain = Pain Score of 7-10, CPOT 5-8 And naloxone (NARCAN) injection 0.1 mgJump to med 0.1 mg, Intravenous, Every 5 Minutes PRN, Respiratory Depression, Starting on Sun06/13/22 at 1209, If respiratory rate is less than 8 breaths/minute or patient is difficult to arouse stop any narcotics and contact physician. Administer slow IV push. Repeat as ordered until patient's respiratory rate is greater than 12 breaths/minute. Group 2: promethazine (PHENERGAN) tablet 6.25 mgJump to med 6.25 mg, Oral, Every 6 Hours PRN, Nausea, Vomiting, Starting on Sun06/13/22 at 1208, Give Zofran first. Give Phenergan if Zofran not effective, {BKC} Or promethazine (PHENERGAN) suppository 6.25 mgJump to med 6.25 mg, Rectal, Every 6 Hours PRN, Nausea, Vomiting, Starting on Sun06/13/22 at 1208, Give Zofran first. Give Phenergan if Zofran not effective, documented in this encounter Care Teams Energy Auditor Relationship Specialty Start Date End Date Herbert Hair MD [facility] [address] [facility] [place] [id number] PCP - General Adolescent Medicine 03/03/22 documented as of this encounter
--- OUTSIDE RECORDS SUMMARY | 2024-08-17 15:54 | XMS_ITS | Encounter Summary ---
[facility] Address [address] [place] [address] Care Team Providers Care Mud Analysis Well Logging Operator Name Role Phone Herbert Hair MD Primary Care Provider + [phone] Encounter Details Date Type Department Care Team (Late st Contact Info) Description 07/13/2022 Documentation [facility] [address] [place] [address] [address] [place] [address] Ellen Swann, RD Social History Tobacco Use Types Packs/Day [...] of this encounter Progress Notes * Ellen Swann, RD - 07/13/2022 11:50 AM EDT Outpatient Oncology Nutrition Reason for Visit: Oncology Nutrition Screening and Patient Education / Met with patient during her initial chemotherapy infusion appointment. 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 2/8 LN involved Chemotherapy: OP BREAST AC DD DOXOrubicin / Cyclophosphamide - every 14 days x 4 cycles followed byOP BREAST DD PACLitaxel - every 14 days x 4 cycles Radiation: 40.05 Wagner in 15 fractions to the left chest wall and regional lymphatics / once chemo is completed Patient Active Problem List: Patient Active Problem List Diagnosis ??? Intramural leiomyoma of uterus ??? Malignant neoplasm of left breast in female, estrogen receptor positive (HCC) ??? Malignant neoplasm of lower-outer quadrant of left female breast (HCC) Food / Nutrition Related History Patient reports her appetite / oral intake has been a little decreased since diagnosis. Hydration Status Discussed the importance of hydration, reviewed hydrating fluids, and recommended she increase her intake. Goal: 96 ounces How many 8 ounces glasses of water do you consume per day? Patient reports she drinks mostly water. Enteral Feeding Anthropometric Measurements Height: Ht Readings from Last 1 Encounters: 07/11/22 154.9 cm (61 ) Weight: Wt Readings from Last 1 Encounters: 07/11/22 87.1 kg (192 lb) BMI: 36.3 - Obese Weight Change: ~10# (5%) weight loss over the past 7 weeks Review of Lab Data (Time Frame - 1 month / 2 month) Labs reviewed - 07/11/22 Medication Review MAR reviewed Nutrition Focused Physical Findings Nutrition Impact Symptoms Altered appetite Physical Activity Normal with no limitations Current Nutritional Intake Oral diet: Regular Intake: Oral intake has been a little less than normal Malnutrition Risk Assessment Recent weight loss over the past 6 months: Yes How much weight loss: 1 = 2-13 lbs Eating poorly because of a decreased appetite: 1 = Yes Malnutrition Screening Score: MST = 2 more Patient at risk for malnutrition Nutrition Diagnosis Problem Non-severe malnutrition in the context of acute / chronic illness Etiology Newly diagnosed breast cancer / recent surgery / nutrition impact symptoms Signs / Symptoms ~10# (5%) weight loss x ~7 weeks / insufficient energy intake Nutrition Intervention Discussed the importance of good nutrition during her treatment course focusing on adequate calorie, protein, nutrient and fluid intake. Advised her to be consuming smaller more frequent meals/snacksthroughout the day to aid with oral intake and potential nausea management. Emphasized the importance of protein and its role in the diet; reviewed high protein foods; and recommended she have a protein source at each meal/snack. Offered several high protein snack ideas she may find more appealing at this time. Discussed tips to aid with potential nutrition impact symptom management associated with her treatment including using the baking soda / salt water mouth rinse. Provided and reviewed written diet material Nutritional Considerations in Breast Cancer and discussed the basics of survivorship nutrition. Also provided and reviewed written diet materials to reinforce information discussed. Goal To achieve adequate nutritional and hydration intake to aid with weight maintenance. To aid with nutrition impact symptom management as needed. Monitoring / Evaluation Answered her questions and she voiced understanding of information discussed. Patient appreciated information provided and states it has been very helpful. RD's contact information provided and encouraged to call with questions. Will monitor as needed during her treatment course. Ellen Swann MS, RD, LD documented in this encounter Plan of Treatment Upcoming Encounters Date Type Department Care Team (Late st Contact Info) Description 09/18/2024 3:30 PM EST Office Visit [facility] [address] [facility] [address] [place] [id number] Bre Crenshaw MD [address] [facility] [address] [place] [address] 12/31/2024 9:00 AM EDT Office Visit [facility] [address] [facility] [address] [place], [place] [id number] Oralia Saha, DWAYNE [address] [facility] [address] [place], [place] [id number] 05/12/2025 1:45 PM EDT Office Visit [facility] [address] [place] [id number] Obed Woodard MD [address] [facility] [address] [place], [place] [id number] documented as of this encounter Visit Diagnoses Not on filedocumented in this encounter Additional Health Concerns Assessment Noted Time PHQ-2 Depression Total Score: 2 07/11/20 22 1:07 PM EDT documented as of this encounter Care Teams Mud Analysis Well Logging Operator Relationship Specialty Start Date End Date Herbert Hair MD [address] [facility] [address] [place] [address] PCP - General Adolescent Medicine 03/03/22 documented as of this encounter
--- OUTSIDE RECORDS SUMMARY | 2024-08-17 15:54 | XMS_ITS | Encounter Summary ---
Author Organization [facility] Address [address] [place] [address] Care Team Providers Care Health And Wellness Director Name Role Phone Herbert Hair MD Primary Care Provider + [phone] Reason for Referral * Consultation (Routine) - Closed Specialty Diagnoses / Procedures Referred By Nasrin hernandez Referred To Contact Cardiology Diagnoses Malignant neoplasm of left breast in female, estrogen receptor positive, unspecified site of breast Bre Crenshaw MD [address] [facility] [address] [place] [address] Phone: tel: fax: Obed Woodard MD [address] [facility] [address] [place] [address] Phone: tel: fax: Referral ID Status Reason Start Date Expiration Date V isits Requested Visits Authorized [id number] Closed Specialty Services Required 06/28/2022 06/28/2023 1 1 * Diagnostic Imaging (Routine) - Closed Specialty Diagnoses / Procedures Referred By Nasrin t Referred To Contact Cardiology Diagnoses Malignant neoplasm of left breast in female, estrogen receptor positive, unspecified site of breast 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 Procedures Adult Transthoracic Echo Complete W/ Cont if Necessary Per Protocol Bre Crenshaw MD [address] [place] [address] Phone: tel: fax: [facility] [address] [facility] 3rd [place] [address] Phone: tel: fax: Referral ID Status Reason Start Date Expiration Date Visits Re quested Visits Authorized [id number] Closed 06/28/2022 07/28/2022 1 1 * Consultation (Routine) - Closed Specialty Diagnoses / Procedures Referred By Contac t Referred To Contact General Surgery Diagnoses Malignant neoplasm of left breast in female, estrogen receptor positive, unspecified site of breast Bre Crenshaw MD [address] [place] [address] Phone: tel: fax: [facility] [address] [address] Phone: tel: fax: Referral ID Status Reason Start Date Expiration Date V isits Requested Visits Authorized [id number] Closed Specialty Services Required 06/28/2022 06/28/2023 1 1 Encounter Details Date Type Department Care Team (Late st Contact Info) Description 06/28/2022 2:00 PM EDT Consult [facility] HEMATOLOGY & ONCOLOGY [address] [address] Bre Crenshaw MD [address] [place] [address] Malignant neoplasm of left breast in female, estrogen receptor positive, unspecified site of breast (Primary Dx); 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 [id number] ER+ (90%), WI+ (10%), Her2 negative (1+) invasive ductal carcinoma of the left breast A) PET/CT 05/30/22 showed left breast mass with left axillary adenopathy, no evidence of distant metastatic disease. bilateral mastectomy on 06/13/22. Pathology showed a 2.4 cm IDC, intermediate grade.2/8 LN involved. 2. Hypertension 3. Hypothyroidism 4. GERD Subjective CHIEF COMPLAINT: breast cancer HISTORY OF PRESENT ILLNESS: Leydi Brown returns for follow-up. She had her surgery about 2 weeks ago and is here to discuss adjuvant therapy options. She had her drains removed today. Objective BP 155/99 Pulse 77 Resp 18 Ht 154.9 cm (61 ) Wt 89.4 kg (197 lb) BMI 37.22 kg/m?? Performance Status: ECOG score: 0 General: well appearing female in no acute distress Neuro: alert and oriented Extremeties: no lower extremity edema Skin: no rashes, lesions, bruising, or petechiae Psych: mood and affect appropriate RECENT LABS: Lab Results Component Value Date WBC 6.60 06/09/2022 HGB 14.6 06/09/2022 HCT 41.2 06/09/2022 MCV 89.2 06/09/2022 PLT 310 06/09/2022 Lab Results Component Value Date GLUCOSE 115 (H) 06/09/2022 BUN 11 06/09/2022 CREATININE 0.86 06/09/2022 BCR 12.8 06/09/2022 K 3.5 06/09/2022 CO2 31.0 (H) 06/09/2022 CALCIUM 9.6 06/09/2022 ALBUMIN 4.40 06/09/2022 AST 11 06/09/2022 ALT 12 06/09/2022 ASSESSMENT AND PLAN: Leydi Brown is a 47 y.o. female with a T2 N1 M0 ER positive WI positive HER2 negative invasive carcinoma of the left breast. We discussed adjuvant therapy with dose dense AC followed by taxol. We reviewed the side effects ofthis regimen including nausea, fatigue, myelosuppression, infusion reaction, cardiotoxicity, myelodysplasia, neuropathy, alopecia, and constipation or diarrhea. Following chemotherapy she is a candidate for adjuvant radiotherapy as well as endocrine therapy, potentially with the addition of abemaciclib. Ki67 testing has been ordered. I will order a baseline echo, and also refer to cardiology. Plan to start treatment in about 2 weeks. Total time of patient care on day of service including time prior to, face to face with patient, and following visit spent in reviewing records, path results, discussion with patient, and documentation/charting was > 43 minutes. Bre Crenshaw MD [facility] Hematology and Oncology 06/28/2022 CC: documented in this encounter Plan of Treatment Upcoming Encounters Date Type Department Care Team (Late st Contact Info) Description 09/18/2024 3:30 PM EST Office Visit [facility] HEMATOLOGY & ONCOLOGY [address] [facility] [address] [place] [phone] Bre Crenshaw MD [address] [facility] [address] [place], [place] [id number] 12/31/2024 9:00 AM EDT Office Visit [facility] UROLOGY [address] [facility] [address] [place] [address] Oralia Saha APRN [address] [facility] [address] [place], [place] [id number] 05/12/2025 1:45 PM EDT Office Visit [facility] CARDIOLOGY [address] [facility] [address] [place] [phone] Obed Woodard MD [address] [facility] [address] [place], [place] [id number] Scheduled Referrals Name Type Priority Associated Diagnoses Order Schedule Ambulatory Referral to Cardiology CardioOncology Outpatient Referral Routine Malignant neoplasm of left breast in female, estrogen receptor positive, unspecified site of breast Ordered: 06/28/2022 documented as of this encounter Results * ECHO COMPLETE W/ [...] inspiratory collapse of greater than 50% noted. 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
--- OUTSIDE RECORDS SUMMARY | 2024-08-17 15:54 | XMS_ITS | Encounter Summary ---
Author Organization [facility] Address [address] [place] [address] Care Team Providers Care Radio Script Writer Name Role Phone Herbert Hair MD Primary Care Provider + [phone] Encounter Details Date Type Department Care Team (Late st Contact Info) Description 07/11/2022 11:25 AM EDT Lab [facility] [address] [place] [phone] Malignant neoplasm of left breast in female, estrogen receptor positive, unspecified site of breast; Malignant neoplasm of upper-inner quadrant of left [...] Description 09/18/2024 3:30 PM EST Office Visit [facility] HEMATOLOGY & ONCOLOGY [address] [facility] [address] [place] [phone] Bre Crenshaw MD [address] [facility] [address] [place] [address] 12/31/2024 9:00 AM EDT Office Visit [facility] UROLOGY [address] [facility] [address] [place] [address] Oralia Saha APRN [address] [facility] [address] [place], [place] [id number] 05/12/2025 1:45 PM EDT Office Visit [facility] CARDIOLOGY [address] [facility] [address] [place] [address] Obed Woodard MD [address] [facility] [address] [place] [address] documented as of this encounter Procedures Procedure Name Priority Date/Time Associated Diagnosis Comments , URINE STAT 07/11/2022 11:2 9 AM EDT Malignant neoplasm of upper-inner quadrant of left breast in female, estrogen receptor positive ESTRADIOL Routine 07/11/2022 11:29 AM EDT Malignant neoplasm of left breast in female, estrogen receptor positive, unspecified site of breast FOLLICLE STIMULATING HORMONE Routine 07/11/2022 11:29 AM EDT Malignant neoplasm of left breast in female, estrogen receptor positive, unspecified site of breast COMPREHENSIVE METABOLIC PANEL Routine 07/11/2022 11:29 AM EDT Malignant neoplasm of left breast in female, estrogen receptor positive, unspecified site of breast documented in this encounter Results * , Urine - Urine, Clean Catch (07/11/2022 11:29 AM EDT) HCG, Urine QL Negative Negative 07/11/2022 11:46 AM EDT [facility] Urine Urine specimen obtained by clean catch procedure / Unknown Collection / Unknown 07/11/2022 11:29 AM EDT 07/11/2022 11:29 AM EDT us Bre Crenshaw MD URINE ORDERABLES Final Result [facility]
[address] [place] [address], [place] [phone] * Follicle Stimulating Hormone (07/11/2022 11:29 AM EDT) FSH 38.30 mIU/mL 07/11/2022 8:42 PM EDT [facility] Blood Venipuncture / Unknown 07/11/2022 11:29 AM EDT 07/11/2022 11:29 AM EDT Narrative [facility] - 07/11/2022 8:42 PM EDT FSH Reference Ranges: Adult Males: ??1.5-12.4 mIU/mL Adult Females: Folicular Phase ??3.5-12.5 mIU/ml Ovulation Phase ??4.7-21.5 mIU/ml Lutal Phase ?1.7-7.7 mIU/ml Postmenopausal ?? 25.8-134.8 mIU/ml Results may be falsely decreased if patient taking Biotin. us Bre Crenshaw MD LAB BLOOD ORDERABLES Final Resul t [facility]
[address] [place] [address], [place] [phone] * Estradiol (07/11/2022 11:29 AM EDT) Pathologist [facility] Estradiol 10.6 pg/mL 07/11/2022 8:42 PM EDT [facility] Blood Venipuncture / Unknown 07/11/2022 11:29 AM EDT 07/11/2022 11:29 AM EDT Narrative [facility] - 07/11/2022 8:42 PM EDT Estradiol Reference Ranges: Adult Males: ?7.6-42.6 pg/mL Adult Femles: ?Follicular phase ?12.5-166.0 pg/mL ?Ovulation phase ? 85.8-498.0 pg/mL ?Luteal phase ?43.8-211.0 pg/mL ?Postmenopausal ?<6.0-54.7 ??pg/mL : ?First Trimester ? 215.0- >4300.0 pg/mL Child (1-10 years): ?Male ?<6.0-20.0 pg/mL ?Female ? 6.0-27.0 pg/mL Results may be falsely increased if patient taking Biotin. us Bre Crenshaw MD LAB BLOOD ORDERABLES Final Resul t [facility]
[address] [place] [address], * (ABNORMAL) Comprehensive Metabolic Panel (07/11/2022 11:29 AM EDT) Pathologist [facility] Glucose 102(H) 65 - 99 mg/dL [facility]2022 [facility] BUN 13 6 - 20 mg/dL 07/11/2022 2:08 PM [facility] Creatinine 0.89 0.57 - 1.00 mg/dL 07/11/2022 2:08 PM T [facility] Sodium 142 136 - 145 mmol/L 07/11/2022 2:08 PM [facility] Potassium 3.3(L) 3.5 - 5.2 mmol/L 07/11/2022 2:08 PM T [facility] Comment:Slight hemolysis det ected by analyzer. Results may be affected. Chloride 102 98 - 107 mmol/L 07/11/2022 2:08 PM T [facility] CO2 28.0 22.0 - 29.0 mmol/L 07/11/2022 2:08 PM [facility] Calcium 9.3 8.6 - 10.5 mg/dL 07/11/2022 2:08 PM T [facility] Total Protein 7.3 6.0 - 8.5 g/dL 07/11/2022 2:08 PM [facility] Albumin 4.30 3.50 - 5.20 g/dL 07/11/2022 2:08 PM [facility] ALT (SGPT) 22 1 - 33 U/L 07/11/2022 2:08 PM [facility] AST (SGOT) 16 1 - 32 U/L 07/11/2022 2:08 PM T [facility] Alkaline Phosphatase 67 39 - 117 U/L 07/11/2022 2:08 PM [facility] Total Bilirubin 0.4 0.0 - 1.2 mg/dL 07/11/2022 2:08 PM T [facility] Globulin 3.0 gm/dL 07/11/2022 2:08 PM [facility] Comment:Calculated Result A/G Ratio 1.4 g/dL 07/11/2022 2:08 PM T [facility] BUN/Creatinine Ratio 14.6 7.0 - 25.0 07/11/2022 2:08 PM EDT [facility] Anion Gap 12.0 5.0 - 15.0 mmol/L 07/11/2022 2:08 PM EDT [facility] eGFR 80.1 >60.0 mL/min/1. 73 07/11/2022 2:08 PM EDT [facility] Comment:National Kidney Foun dation and [place] Society of Nephrology (ASN) Task Force recommended calculation based on the Chronic Kidney Disease Epidemiology Collaboration (CKD-EPI) equation refit without adjustment for race. Blood Venipuncture / Unknown 07/11/2022 11:29 AM EDT 07/11/2022 11:29 AM EDT Narrative [facility] - 07/11/2022 2:08 PM EDT GFR Normal >60 Chronic Kidney Disease <60 Kidney Failure <15 us Bre Crenshaw MD LAB BLOOD ORDERABLES Final Resul t [facility]
[address] [place] [address], documented in this encounter Visit Diagnoses Diagnosis Malignant neoplasm of left breast in female, estrogen receptor positive, unspecified site of breast Malignant neoplasm of upper-inner quadrant of left breast in female, estrogen receptor positive documented in this encounter Additional Health Concerns Assessment Noted Time PHQ-2 Depression Total Score: 2 07/11/20 22 1:07 PM EDT documented as of this encounter Care Teams Radio Script Writer Relationship Specialty Start Date End Date Herbert Hair MD [address] [facility] [address] [place] [address] PCP - General Adolescent Medicine 03/03/22 documented as of this encounter
--- OUTSIDE RECORDS SUMMARY | 2024-08-17 15:54 | XMS_ITS | Encounter Summary ---
Author Organization [facility] Address [address] [place] [address] Care Team Providers Care Home Health Cna Name Role Phone Herbert Hair MD Primary Care Provider [phone] Reason for Visit * Reason Onset Date Comments Med Refill 07/10/2022 Encounter Details Date Type Department Care Team (Late st Contact Info) Description 07/10/2022 Refill [facility] HEMATOLOGY & ONCOLOGY [address] [address] Bre Crenshaw MD [address] [place] [id number] Social History Tobacco Use Types Packs/Day Years [...] [facility] [address] [facility] [address] [place] [address] Bre Crenshaw MD [address] [facility] [address] [place] [address] 12/31/2024 9:00 AM EDT Office Visit [facility] UROLOGY [address] [facility] [address] [place] [address] Oralia Saha APRN [address] [facility] [address] [place] [address] 05/12/2025 1:45 PM EDT Office Visit [facility] CARDIOLOGY [address] [facility] [address] [place] [phone] Obed Woodard MD [address] [facility] [address] [place], [place] [id number] documented as of this encounter Visit Diagnoses Not on filedocumented in this encounter Care Teams Home Health Cna Relationship Specialty Start Date End Date Herbert Hair MD [address] [facility] [address] [place] [address] PCP - General Adolescent Medicine 03/03/22 documented as of this encounter
--- OUTSIDE RECORDS SUMMARY | 2024-08-17 15:54 | XMS_ITS | Encounter Summary ---
Author Organization [facility] Address [address] [place] [address] Care Team Providers Care Strip Cutting Machine Operator Name Role Phone Herbert Hair MD Primary Care Provider Encounter Details Date Type Department Care Team (Late st Contact Info) Description 07/11/2022 1:00 PM EDT Office Visit [facility] HEMATOLOGY & ONCOLOGY [address] [facility] [address] [place] [id number] Hilda Jarvis, SUPERVISOR FUSING ROOM [address] [facility] [address] [place] [address] Malignant neoplasm of upper-inner quadrant of left [...] Sign Reading Time Taken Comments Blood Pressure 139/102 07/11/2022 1:04 PM EDT RUE Pulse 80 07/11/2022 1:04 PM EDT Temperature 36.8 ??C (98.2 ??F) 07/11/2022 1:04 PM ED T Respiratory Rate 18 07/11/2022 1:04 PM EDT Oxygen Saturation 98% 07/11/2022 1:04 PM EDT RA Inhaled Oxygen Concentration - - Weight 87.1 kg (192 lb) 07/11/2022 1:04 PM EDT Height 154.9 cm (5' 1 ) 07/11/2022 1:04 PM EDT Body Mass Index 36.28 07/11/2022 1:04 PM EDT documented in this encounter Progress Notes * Hilda Jarvis, SUPERVISOR FUSING ROOM - 07/11/2022 1:00 PM EDT CHEMOTHERAPY PREPARATION Leydi Brown [id number] Subjective Chief Complaint: Treatment Preparation and Needs Assessment History of present illness: Leydi Brown is a 47 y.o. year old female who is here today for chemotherapy preparation and needs assessment. The patient has been diagnosed with breast cancer and is scheduled to begin treatment with DOXOrubicin / Cyclophosphamide followed by Taxol. Oncology History: Oncology/Hematology History Malignant neoplasm of left breast in female, estrogen receptor positive (HCC) 05/24/2022 Initial Diagnosis Malignant neoplasm of left breast in female, estrogen receptor positive (HCC) 05/24/2022 Cancer Staged Staging form: Breast, AJCC 8th Edition - Clinical: Stage IIA (cT2, cN1, cM0, G2, ER+, PA+, HER2-) - Signed by Bre Crenshaw MD on 05/24/2022 07/13/2022 - Chemotherapy OP BREAST AC DD DOXOrubicin / Cyclophosphamide 09/07/2022 - Chemotherapy OP BREAST DD PACLitaxel The current medication list and allergy list were reviewed and reconciled. Past Medical History, Past Surgical History, Social History, Family History have been reviewed and are without significant changes except as mentioned. Review of Systems Constitutional: Positive for appetite change and fatigue. Negative for chills and fever. HENT: Negative. Eyes: Negative. Respiratory: Negative. Cardiovascular: Negative. Gastrointestinal: Negative. Endocrine: Negative. Genitourinary: Negative. Musculoskeletal: Negative. Skin: Positive for wound (left mastectomy incision ). Allergic/Immunologic: Negative. Neurological: Negative. Hematological: Negative. Psychiatric/Behavioral: Positive for sleep disturbance. Negative for agitation and confusion. The patient is nervous/anxious. Objective Physical Exam Vital Signs: BP (!) 139/102 Comment: RUE Pulse 80 Temp 98.2 ??F (36.8 ??C) (Infrared) Resp 18 Ht 154.9 cm (61 ) Wt 87.1 kg (192 lb) SpO2 98% Comment: RA BMI 36.28 kg/m?? Vitals: 07/11/22 1304 PainSc: 0-No pain General Appearance: alert, cooperative, no apparent distress and appears stated age Neurologic/Psychiatric: A&O x 3, gait steady, appropriate affect HEENT: Normocephalic, without obvious abnormality, mucous membranes moist Lungs: Clear to auscultation bilaterally; respirations regular, even, and unlabored bilaterally Heart: Regular rate and rhythm, no murmurs appreciated Extremities: Normal, atraumatic; no clubbing, cyanosis, or edema Skin: No rashes, lesions, or abnormal coloration noted ECOG Performance Status: 0 - Asymptomatic NEEDS ASSESSMENTS Genetics The patient's new diagnosis and family history have been reviewed for genetic counseling needs. A genetic referral has already been placed for patient. The high/moderate breast cancer risk portion ofthe panel was resulted out first in order to expedite surgical decision making, and testing was negative for mutations in BRCA1/2, JARRET, CHEK2, CDH1, PALB2, PTEN, and TP53 Psychosocial The patient has completed a PHQ-9 Depression Screening and the Distress Thermometer (DT) today. PHQ-9 Total Score:8 . PHQ-9 results show 5-9 (Mild Depression). The patient scored their distress today as 3 on a scale of 0-10 with 0 being no distress and 10 being extreme distress. Problems marked by the patient as being an issue for them within the last week include emotional problems and physical problems. Results were reviewed along with psychosocial resources offered by our cancer center. Our scale assembly set up worker will be flagged for a DT score of 4 or above, and a same day call will be made for a score of 9 or 10. A mental health referral is recommended at this time. The patient is accepting of areferral to Taty Wing APRN. Referral has previously been placed for patient to see Taty Wing APRN. Patient had to cancel scheduled appointment but will call to reschedule at her convenience. Copies of patient's questionnaires will be scanned into EMR for details and further reference. Barriers to care A barriers form was also completed by the patient today. We discussed services offered by our facility to help her have adequate access to care. The patient was given the name and card for our Diet Clerk, Juany Russell. Based upon barriers assessment today, the patient will not require a follow-up call from the social sciences department chair to further discuss needs. A copy of the barriers form will also be scanned into EMR for details and further reference. VAD Assessment The patient and I discussed planned intervenous chemotherapy as well as other IV treatments that are often needed throughout the course of treatment. These may include, but are not limited to blood transfusions, antibiotics, and IV hydration. The vasculature does not appear to be adequate for multiple peripheral IVs throughout their treatment course. Discussed risks and benefits of VADs. Port-A-Cath has already been inserted. Reviewed instructions with patient on how to use Emla cream prior to infusion. Advance Care Planning ACP discussion was held with the patient during this visit. Patient does not have an advance directive, information provided. The patient and I discussed advanced care planning, Conversations that Matter . This service was offered, free of charge, for development of advance directives with a certified ACP landcare facilitator. Palliative Care The patient and I discussed palliative care services. Palliative care is not the same as Hospice care. This is specialized medical care for people living with serious illness with the goal of improving quality of life for the patient and their family. [facility] has partnered with [facility] Navigators to offer our patients outpatient palliative care early along with their treatment to assist incoordination of care, symptom management, pain management, and medical decision making. Oncology criteria for palliative care referral is not met at this time. The patient is not interested in a palliative care consultation. Additional Referral needs none CHEMOTHERAPY EDUCATION Booklets Given: Chemotherapy and You [x] Eating Hints [x] Sexuality/Fertility Books [] Chemotherapy/Biotherapy Education Sheets: (list all that apply) nausea management, acid reflux management, diarrhea management, Cancer resourse contacts information, skin and mouth care and vaccination information Chemotherapy Regimen: Treatment Plans Name Type Plan Dates Plan Provider Active OP BREAST AC DD DOXOrubicin / Cyclophosphamide ONCOLOGY TREATMENT 07/10/2022 - Present Bre Crenshaw MD DETAILED CHEMOTHERAPY TEACHING COMPLETED BY PHARMACY. CHEMOTHERAPY CONSENT COMPLETED BY PHARMACY. SEE PHARMACY EDUCATION FOR DOCUMENTATION. Chemotherapy education comprehension reviewed. Questions answered and additional information discussed on topics including: Anemia, Thrombocytopenia, Neutropenia, Nutrition and appetite changes, Constipation, Diarrhea, Nausea & vomiting, Mouth sores, Alopecia, Nervous system changes, Pain, Skin & nail changes and Organ toxicities Assessment and Plan: Diagnoses and all orders for this visit: 1. Malignant neoplasm of upper-inner quadrant of left breast in female, estrogen receptor positive (HCC) (Primary) - Lab Appointment Request; Future - Clinic Appointment Request; Future - Infusion Appointment Request 3; Future - CBC and Differential; Future - Comprehensive metabolic panel; Future - Lab Appointment Request; Future - Clinic Appointment Request; Future - Infusion Appointment Request 3; Future Other orders - sodium chloride 0.9 % infusion 250 mL - OLANZapine (zyPREXA) tablet 5 mg - palonosetron (ALOXI) injection 0.25 mg - fosaprepitant (EMEND) 150 mg in sodium chloride 0.9 % 100 mL IVPB - dexamethasone (DECADRON) 12 mg in sodium chloride 0.9 % IVPB - DOXOrubicin (ADRIAMYCIN) chemo injection 112 mg - cyclophosphamide (CYTOXAN) 1,130 mg in sodium chloride 0.9 % 306.5 mL chemo IVPB - pegfilgrastim (NEULASTA ONPRO) on-body injector 6 mg I spent 45 minutes caring for Leydi on this date of service. This time includes time spent by me in the following activities: preparing for the visit, reviewing tests, obtaining and/or reviewing a separately obtained history, performing a medically appropriate examination and/or evaluation, counseling and educating the patient/family/caregiver, ordering medications, tests, or procedures and documenting information in the medical record. The patient and I have reviewed their new cancer diagnosis and scheduled treatment plan. Needs assessment was completed including genetics, psychosocial needs, barriers to care, VAD evaluation, advanced care planning, and palliative care services. Referrals have been ordered as appropriate based upon our evaluation and patient desires. Chemotherapy teaching was also completed today as documented above. Adequate time was given to answer all questions to her satisfaction. Patient and family are aware of their care team members and contact information if they have questions or problems throughout the treatment course. Needs assessments and education has been completed. The patient is adequately prepared to begin treatment as scheduled. Hilda Jarvis APRN 07/11/22 documented in this encounter Plan of Treatment Upcoming Encounters Date Type Department Care Team (Late st Contact Info) Description 09/18/2024 3:30 PM EST Office Visit [facility] HEMATOLOGY & ONCOLOGY [address] [facility] [address] [place] [phone] Bre Crenshaw MD [address] [facility] [address] [place] [address] 12/31/2024 9:00 AM EDT Office Visit [facility] UROLOGY [address] [facility] [address] [place] [address] Oralia Saha APRN [address] [facility] [address] [place] [address] 05/12/2025 1:45 PM EDT Office Visit [facility] CARDIOLOGY [address] [facility] [address] [address] [place] [address] Obed Woodard MD [address] [facility] [address] [place], [place] [id number] documented as of this encounter Results * (ABNORMAL) Comprehensive metabolic panel (07/26/2022 3:53 PM EDT) Glucose 132(H) 65 - 99 mg/dL 07/26/2022 4:45 PM EDT [facility] BUN 9 6 - 20 mg/dL 07/26/2022 4:45 PM EDT [facility] Creatinine 0.83 0.57 - 1.00 mg/dL 07/26/2022 4:45 PM EDT [facility] Sodium 141 136 - 145 mmol/L 07/26/2022 4:45 PM EDT [facility] Potassium 2.8(L) 3.5 - 5.2 mmol/L 07/26/2022 4:45 PM EDT [facility] Chloride 101 98 - 107 mmol/L 07/26/2022 4:45 PM EDT [facility] CO2 30.0(H) 22.0 - 29.0 mmol/L 07/26/2022 4:45 PM EDT [facility] Calcium 9.0 8.6 - 10.5 mg/dL 07/26/2022 4:45 PM EDT [facility] Total Protein 6.9 6.0 - 8.5 g/dL 07/26/2022 4:45 PM EDT [facility] Albumin 4.20 3.50 - 5.20 g/dL 07/26/2022 4:45 PM EDT [facility] ALT (SGPT) 19 1 - 33 U/L 07/26/2022 4:45 PM EDT [facility] AST (SGOT) 15 1 - 32 U/L 07/26/2022 4:45 PM EDT [facility] Alkaline Phosphatase 82 39 - 117 U/L 07/26/2022 4:45 PM EDT [facility] Total Bilirubin 0.2 0.0 - 1.2 mg/dL 07/26/2022 4:45 PM EDT [facility] Globulin 2.7 gm/dL 07/26/2022 4:45 PM T [facility] Comment:Calculated Result A/G Ratio 1.6 g/dL 07/26/2022 4:45 PM EDT [facility] BUN/Creatinine Ratio 10.8 7.0 - 25.0 07/26/2022 4:45 PM EDT [facility] Anion Gap 10.0 5.0 - 15.0 mmol/L 07/26/2022 4:45 PM EDT [facility] eGFR 87.1 >60.0 mL/min/1. 73 07/26/2022 4:45 PM EDT [facility] Comment:National Kidney Foun dation and [place] Society of Nephrology (ASN) Task Force recommended calculation based on the Chronic Kidney Disease Epidemiology Collaboration (CKD-EPI) equation refit without adjustment for race. Blood Venipuncture / Unknown 07/26/2022 3:53 PM EDT 07/26/2022 3:53 PM EDT Narrative [facility] - 07/26/2022 4:45 PM EDT GFR Normal >60 Chronic Kidney Disease <60 Kidney Failure <15 Hilda Jarvis SUPERVISOR FUSING ROOM LAB BLOOD ORDERABLES Final Result [facility]
[address] [place] [address], documented in this encounter Visit Diagnoses Diagnosis Malignant neoplasm of upper-inner quadrant of left breast in female, estrogen receptor positive- Primary documented in this encounter Additional Health Concerns Assessment Noted Time PHQ-2 Depression Total Score: 2 07/11/20 22 1:07 PM EDT documented as of this encounter Care Teams Strip Cutting Machine Operator Relationship Specialty Start Date End Date Herbert Hair MD [address] [place] [address] [address] [place] [address] PCP - General Adolescent Medicine 03/03/22 documented as of this encounter
--- OUTSIDE RECORDS SUMMARY | 2024-08-17 15:54 | XMS_ITS | Encounter Summary ---
Author Organization [facility] Address [address] [place] [address] Care Team Providers Care Supervisory Lifeguard Name Role Phone Herbert Hair MD Primary Care Provider [phone] Reason for Visit * Auth/Cert Specialty Diagnoses / Procedures Referred By Nasrin hernandez Referred To Contact Diagnoses Malignant neoplasm of lower-outer quadrant of left female breast . Procedures [place] MASTECTOMY, SIMPLE, COMPLETE [place] REMOVE ARMPITS LYMPH NODES COMPLT LEFT BREAST MASTECTOMY, LEFT AXILLARY NODE DISSECTION, PROPHYLATIC RIGHT MASTECTOMY Referral ID Status Reason Start Date Expiration Date Visits Re quested Visits Authorized [id number] 1 1 Encounter Details Date Type Department Care Team (Latest Contact Info) Description 06/13/2022 9:10 AM EDT Anesthesia Event Converted [facility] ANESTHESIA [address] [place] [address] Social History Tobacco Use Types Packs/Day Years [...] [facility] [address] [facility] [address] [place] [address] Bre Crenshaw MD [address] [facility] [address] [address] [place] [address] 12/31/2024 9:00 AM EDT Office Visit [facility] UROLOGY [address] [facility] [address] [place] [address] Oralia Saha APRN [address] [facility] [address] [place] [address] 05/12/2025 1:45 PM EDT Office Visit [facility] CARDIOLOGY [address] [facility] [address] [place] [phone] Obed Woodard MD [address] [facility] [address] [place], [place] [id number] documented as of this encounter Procedures Procedure Name Priority Date/Time Associated Diagnosis Comments ANESTHESIA PERIPHERAL BLOCK Routine 06/13/2022 9:33 AM EDT documented in this encounter Results * Bilateral PECS I&II (06/13/2022 9:33 AM EDT) Narrative Eliza Davila CRNA - 06/13/2022 9:33 AM EDT Eliza Davila CRNA ? 06/13/2022 12:17 PM Bilateral PECS I&II Patient reassessed immediately prior to procedure Patient location during procedure: OR Reason for block: at surgeon's request and post-op pain management Performed by HILARIO/CAA: Eliza Davila CRNA Preanesthetic Checklist Completed: patient identified, IV checked, site marked, risks and benefits discussed, surgical consent, monitors and equipment checked, pre-op evaluation and timeout performed Prep: Pt Position: supine Sterile barriers:cap, gloves, gown and mask Prep: ChloraPrep Patient monitoring: blood pressure monitoring, continuous pulse oximetry and EKG Procedure Performed under: general Guidance:ultrasound guided and landmark technique Images:still images obtained, printed/placed on chart Laterality:Bilateral Block Type:PECS I and PECS II Injection Technique:single-shot Needle Type:short-bevel Needle Gauge:20 G Resistance on Injection: none Medications Used: buprenorphine (BUPRENEX) injection, 0.3 mg bupivacaine PF (MARCAINE) 0.25 % injection, 60 mL dexamethasone sodium phosphate injection, 4 mg Med administered at 06/13/2022 9:33 AM Medications Preservative Free Saline:10ml Comment:Block Injection: ??Total volume of LA divided between Right and Left sided blocks ?? Post Assessment Injection Assessment: negative aspiration for heme and incremental injection Patient Tolerance:comfortable throughout block Complications:no Additional Notes The pt. Was placed in the Supine Position and GA was induced The insertion site was prepped with CHG and Ultrasound guidance with In-Plane techniquewas ??a 4inch BBraun 360 degree echogenic needle was visualized. ??Normal Saline PSF was ??utilized for hydrodissection of tissue. PECS 1 Block- Pectoralis Major and Minor where identified and LA was injected between PMM and PmM at the level of the 3rd Rib(10ml), ??PECS 2- ??Pectoralis Minor and Serratus muscle where identified and the needle was advanced laterally in-plane with the 4th rib as a backstop, pleura was monitored. ??LA was injected between SA and PmM at the level of 4th rib( 20ml). ??LA injection spread was visualized, injection was incremental 1-5ml, normal or low injection pressure, no intravascular injection, no pneumothorax appreciated. ??Thank You. us Eliza Davidfifi Davila RESISTANCE MACHINE WELDER SETTER ANESTHESIA ORDERABLES Omer jay Result - Final documented in this encounter Visit Diagnoses Not on filedocumented in this encounter Care Teams Supervisory Lifeguard Relationship Specialty Start Date End Date Herbert Hair MD [address] [facility] [address] [place] [address] PCP - General Adolescent Medicine 03/03/22 documented as of this encounter
--- OUTSIDE RECORDS SUMMARY | 2024-08-17 15:54 | XMS_ITS | Encounter Summary ---
Author Organization [facility] Address [address] [place] [address] Care Team Providers Care Orientation And Mobility Specialist Name Role Phone Herbert Hair MD Primary Care Provider + [phone] Reason for Visit * Episode Based Medications (Routine) - Closed Specialty Diagnoses / Procedures Referred By Contgualberto t Referred To Contact Diagnoses Malignant neoplasm of upper-inner quadrant of left breast in female, estrogen receptor positive Procedures SD DEXAMETHASONE SODIUM PHOS SD FOSAPREPITANT INJECTION SD PALONOSETRON HCL SD DOXORUBIC HCL 10 MG VL CHEMO SD CYCLOPHOSPHAMIDE 100 MG INJ SD INJECTION, UDENYCA 0.5 MG SD INJ PEGFILGRAST EX BIO 0.5MG Bre Crenshaw MD [address] [facility] [address] [place] [address] Phone: tel: fax: Referral ID Status Reason Start Date Expiration Date Visits Re quested Visits Authorized [id number] Closed 07/13/2022 11/02/2022 1 1 Encounter Details Date Type Department Care Team (Latest Contact Info) Description 07/13/2022 11:24 AM EDT - 07/13/2022 11:59 PM EDT Hospital Encounter [facility] [address] [facility] [address] [place] [address] Encounter for care related to vascular access port (Primary Dx); Malignant neoplasm of upper-inner quadrant of left breast in female, estrogen receptor positive; Malignant neoplasm of [...] you are drinking? Patient does not drink 2 Q3: How often do you have [...] file documented as of this encounter Discharge Instructions * Attachments The following attachments cannot be sent through Care Everywhere. * Managing Chemotherapy Side Effects Adult (Bangladeshi) documented in this encounter Medications at Time [...] 1 tablet by mouth Daily. 3 Vit-Fe Bpfpeij-OZ-PTM ( VITAMIN/MIN +DHA PO) Take 1 tablet [...] [facility] [address] [facility] [address] [place] [id number] Bre Crenshaw MD [address] [facility] [address] [place] [address] 12/31/2024 9:00 AM EDT Office Visit [facility] [address] [facility] [address] [place] [address] Oralia Saha APRN [address] [facility] [address] [place] [address] 05/12/2025 1:45 PM EDT Office Visit [facility] C[facility] [address] [facility] [address] [place] [phone] Obed Woodard MD [address] [facility] [address] [place], [place] [id number] documented as of this encounter Visit Diagnoses Diagnosis Encounter for care related to vascular access port- Primary Malignant neoplasm of upper-inner quadrant of left [...] Administer over 30 Minutes, Once, On Bina 07/13/22 at 1244, For 1 dose, HAZARDOUS - Handle with careIndications:Bob billingsley neoplasm of upper-inner quadrant of left breast in female, estrogen receptor positive New Bag 07/13/2022 1:13 PM EDT 1,130 mg 561.4 mL/hr dexamethasone (DECADRON) IVPB 12 mg 12 mg, Intravenous, at 200 mL/hr, Administer over 15 Minutes, Once, On Bina 07/13/22 at 1144, For 1 dose, Give 15 to 30 minutes prior to chemotherapy. Administer over 5-15 minutes.Indications:M alignant neoplasm of upper-inner quadrant of left breast in female, estrogen receptor positive New Bag 07/13/2022 12:05 PM EDT 12 mg 200 mL/hr DOXOrubicin (ADRIAMYCIN) chemo injection 112 mg 112 mg (rounded from 112.8 mg = 60 mg/m2 ? 1.88 m2 Treatment Plan BSA from Recorded weight), Intravenous, Administer over 5 Minutes, Once, On Bina 07/13/22 at 1229, For 1 dose, Administer via slow IV push over at least 3-10 minutes through free flowing line; VESICANT; check for blood return periodically. HAZARDOUS - Handle with careIndications:Bob billingsley neoplasm of upper-inner quadrant of left breast in female, estrogen receptor positive Subsequent Bag/Syringe 07/13/2022 1:01 PM EDT 56 mg New Syringe 07/13/2022 12:59 PM EDT 56 mg fosaprepitant (EMEND) 150 mg/100mL NS 150 mg, Intravenous, at 200 mL/hr, Administer over 30 Minutes, Once, On Bina 07/13/22 at 1144, For 1 dose, Give 15 to 30 minutes prior to chemotherapy.Indications :Malignant neoplasm of upper-inner quadrant of left breast in female, estrogen receptor positive New Bag 07/13/2022 12:05 PM EDT 150 mg 200 mL/hr heparin injection 500 Units 500 Units, Intravenous, As Needed, Line Care, Starting on Bina 07/13/22 at 1328, Use for Implanted Ports.Indications:Encoun ter for care related to vascular access port,Malignant neoplasm of lower-outer quadrant of left breast of female, estrogen receptor positive Given 07/13/2022 1:48 PM EDT 500 Units OLANZapine (zyPREXA) tablet 5 mg 5 mg, Oral, Once, On Bina 07/13/22 at 1144, For 1 dose, Prior to chemotherapy Caution: Look alike/sound alike drug alertIndications:Maligna nt neoplasm of upper-inner quadrant of left breast in female, estrogen receptor positive Given 07/13/2022 12:04 PM EDT 5 mg palonosetron (ALOXI) injection 0.25 mg 0.25 mg, Intravenous, Administer over 0.5 Minutes, Once, On Bina 07/13/22 at 1144, For 1 dose, Give 15 - 30 minutes prior to chemotherapy.Indications :Malignant neoplasm of upper-inner quadrant of left breast in female, estrogen receptor positive Given 07/13/2022 12:03 PM EDT 0.25 mg pegfilgrastim (NEULASTA ONPRO) on-body injector 6 mg 6 mg, Subcutaneous, Once, On Bina 07/13/22 at 1144, For 1 doseIndications:Malignan t neoplasm of upper-inner quadrant of left breast in female, estrogen receptor positive Given 07/13/2022 1:52 PM EDT 6 mg Right Lower Abdomen sodium chloride 0.9 % infusion 250 mL 250 mL, Intravenous, at 20 mL/hr, Once, On Bina 07/13/22 at 1144, For 1 doseIndications:Malignan t neoplasm of upper-inner quadrant of left breast in female, estrogen receptor positive New Bag 07/13/2022 12:02 PM EDT 250 mL 20 mL/hr documented in this encounter Additional Health Concerns Assessment Noted Time PHQ-2 Depression Total Score: 2 07/11/20 1:07 PM EDT documented as of this encounter Care Teams Orientation And Mobility Specialist Relationship Specialty Start Date End Date Herbert Hair MD [address] [place] [address] [address] [facility] [place] [address] PCP - General Adolescent Medicine 03/03/22 documented as of this encounter
--- OUTSIDE RECORDS SUMMARY | 2024-08-17 15:54 | XMS_ITS | Encounter Summary ---
Author Organization [facility] Address [address] [place] [address] Care Team Providers Care [employer] Administrator Name Role Phone Herbert Hair MD Primary Care Provider + [phone] Reason for Visit * Auth/Cert Specialty Diagnoses / Procedures Referred By Nasrin hernandez Referred To Contact Diagnoses Malignant neoplasm of lower-outer quadrant of left female breast . Procedures [place] MASTECTOMY, SIMPLE, COMPLETE [place] REMOVE ARMPITS LYMPH NODES COMPLT LEFT BREAST MASTECTOMY, LEFT AXILLARY NODE DISSECTION, PROPHYLATIC RIGHT MASTECTOMY Referral ID Status Reason Start Date Expiration Date Visits Re quested Visits Authorized [id number] 1 1 Encounter Details Date Type Department Care Team (Latest Contact Info) Description 06/13/2022 2:15 PM EDT Anesthesia Event Converted [facility] ANESTHESIA [address] [place] [address] Social History Tobacco Use Types [facility] [address] [facility] [address] [place] [address] Bre Crenshaw MD [address] [facility] [address] [place] [address] 12/31/2024 9:00 AM EDT Office Visit [facility] UROLOGY [address] [facility] [address] [place] [address] Oralia Saha APRN [address] [facility] [address] [place] [address] 05/12/2025 1:45 PM EDT Office Visit [facility] CARDIOLOG[facility] [address] [facility] [address] [place] [phone] Obed Woodard MD [address] [facility] [address] [place], [place] [id number] documented as of this encounter Procedures Procedure Name Priority Date/Time Associated Diagnosis Comments ANESTHESIA PERIPHERAL BLOCK Routine 06/13/2022 2:25 PM EDT documented in this encounter Results * Bilateral Parasternal SS block (06/13/2022 2:25 PM EDT) Narrative Eliza Davila CRNA - 06/13/2022 2:25 PM EDT GiovanniEliza HILARIO Eng ? 06/13/2022 ??2:57 PM Bilateral Parasternal SS block Patient reassessed immediately prior to procedure Patient location during procedure: CVOU Performed by Anesthesiologist: Puja Hines MD Preanesthetic Checklist Completed: patient identified, IV checked, site marked, risks and benefits discussed, surgical consent, monitors and equipment checked, pre-op evaluation and timeout performed Prep: Pt Position: supine Sterile barriers:washed/disinfected hands, gloves and mask Prep: ChloraPrep Patient monitoring: blood pressure monitoring, continuous pulse oximetry and EKG Procedure Performed under: local infiltration Guidance:ultrasound guided ULTRASOUND INTERPRETATION. Using ultrasound guidance a 20 G gauge needle was placed in close proximity to the nerve, at which point, under ultrasound guidance anesthetic was injected in the area of the nerve and spread of the anesthesia was seen on ultrasound in close proximity thereto. ??There were no abnormalities seen on ultrasound; a digital image was taken; and the patient tolerated the procedure with no complications. Images:still images obtained, printed/placed on chart Laterality:Bilateral Anesthesia block type: Subpectoral Interfascial Plane. Injection Technique:single-shot Needle Type:echogenic and short-bevel Needle Gauge:20 G Resistance on Injection: none Medications Used: dexamethasone sodium phosphate injection, 2 mg bupivacaine PF (MARCAINE) 0.25 % injection, 30 mL Med administered at 06/13/2022 2:25 PM Medications Comment:LA dose divided between left and right parasternal block Post Assessment Injection Assessment: negative aspiration for heme, no paresthesia on injection and incremental injection Patient Tolerance:comfortable throughout block Complications:no Additional Notes The Subpectoral Interfascial Plane (SIP) is performed with the patient in the supine position. The injections will be cephalad to caudad, and caudad to cephalad to cover the full length of the sternum. The SIP block is performed with high frequency linear transducer that is placed in a parasagittal plane 2 cm left of the sternum at the 4th rib. The skin is prepped with chlorohexidine and then localized with 2ml of 2% Lidocaine. A 20-gauge B-Delaney 4 Ultraplex 360 Non-stimulating Echogenic Needle is advanced in plane until the tip of the needle is in the fascial plane between the pectoralis major and external intercostal muscle. 1 to 3ml of preservative free normal saline is used to hydro-dissect the fascial plane. After the fascial plane is verified. Aspiration every 5 ml to prevent intravascular injection. us Puja Hines MD ANESTHESIA ORDERABLES Edite d Result - Final documented in this encounter Visit Diagnoses Not on filedocumented in this encounter Care Teams [employer] Administrator Relationship Specialty Start Date End Date Herbert Hair MD [address] [place] [address] [address] [place] [address] PCP - General Adolescent Medicine 03/03/22 documented as of this encounter
--- OUTSIDE RECORDS SUMMARY | 2024-08-17 15:54 | XMS_ITS | Encounter Summary ---
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 Name Role Phone Herbert Hair MD Primary Care Provider [phone] Reason for Visit * Reason Comments OT Initial Evaluation Encounter Details Date Type Department Care Team (Late st Contact Info) Description 06/28/2022 2:30 PM EDT - 06/28/2022 11:59 PM EDT Hospital Encounter [facility] OUTPATIENT OCCUPATIONAL THERAPY [address] [place] [id number] Hilda Atkinson, OTR/L [address] [place] [address] Malignant neoplasm of left female breast, unspecified estrogen receptor status, unspecified site of breast (Primary Dx); Range of motion deficit; Adherent scar, skin; At risk for lymphedema Discharge Disposition: Home or Self Care Social [...] 1 tablet by mouth Daily. 3 Vit-Fe Cyeoqwn-CD-EHM ( VITAMIN/MIN +DHA PO) Take 1 tablet by mouth Daily. 3 propranolol (INDERAL) 20 MG tablet Take 20 mg by mouth every night at bedtime. 05/16/2022 2 pseudoephedrine- guaifenesin (MUCINEX D) 60-600 MG per 12 hr tablet Take 1 tablet by mouth Every 12 (Twelve) Hours. As needed 3 telmisartan-hydr ochlorothiazide (MICARDIS HCT) 40-12.5 MG per tablet Take 1 tablet by mouth Every Evening. 11/28/2020 4 vitamin B-12 (CYANOCOBALAMIN) 1000 MCG tablet Take 1 tablet by mouth Daily. 4 vitamin C (ASCORBIC ACID) 500 MG tablet Take 500 mg by mouth Daily. 2 Zinc 50 MG capsule Take 50 mg by mouth Daily. 3 documented as of this encounter Miscellaneous Notes * Therapy Evaluation - Hilda Atkinson, OTR/Xi - 06/28/2022 2:30 PM EDT Images from the original note were not included. Outpatient Occupational Therapy Ortho Initial Evaluation [place] Patient Name: Leydi Singh Coppage : 1975 Today's Date: 06/29/2022 Visit Date: 06/28/2022 Patient Active Problem List Diagnosis ??? Intramural leiomyoma of uterus ??? Malignant neoplasm of left breast in female, estrogen receptor positive (HCC) ??? Malignant neoplasm of lower-outer quadrant of left female breast (HCC) Past Medical History: Diagnosis Date ??? Acid reflux ??? Anxiety ??? Javed's disease ??? Headache ??? Hypertension ??? Hypothyroidism ??? Malignant neoplasm of left breast in female, estrogen receptor positive (HCC) 05/24/2022 ??? Migraines ??? PONV (postoperative nausea and vomiting) ??? Wears glasses Past Surgical History: Procedure Laterality Date ??? [...] RIGHT MASTECTOMY; Surgeon: An Bell MD; Location: [facility]; Service: General; Laterality: N/A; ??? TONSILLECTOMY Visit Dx: ICD-10-CM ICD-9-CM 1. Malignant neoplasm of left female breast, unspecified estrogen receptor status, unspecified siteof breast (HCC) C50.912 174.9 2. Range of motion deficit M25.60 719.50 3. Adherent scar, skin L90.5 709.2 4. At risk for lymphedema Z91.89 V49.89 Patient History Row Name 06/28/22 1500 History Chief Complaint Tightness;Pain;Numbness;Muscle weakness;Joint stiffness;Difficulty with daily activities -SG Type of Pain Chest pain;Upper Extremity / Arm;Shoulder pain -SG Date Current Problem(s) Began 06/13/22 -SG Brief Description of Current Complaint Leydi Brown is a 47 y.o. female who underwent bilateral mastectomies for stage IIa invasive ductal carcinoma of the left breast on 06/13/2022. The right breast was negative. The left breast had a 2.4 x 1.8 x 1.8 cm grade 2 invasive ductal carcinoma inthe lower outer quadrant. There was no DCIS. 2/8 lymph nodes were positive for tumor. The largest deposit was 12 mm. There was lymphovascular invasion present. The tumor was ER/ND positive HER2/margie negative. A PET scan was negative for metastatic disease. She has seen Dr. Crenshaw who recommends chemotherapy w/ dose dense AC followed by taxol. Following chemotherapy, pt will plan to have radiation t herapy. She does not plan to have reconstruction. She saw Dr. SPARKS today and had drains removed. Now that she is 2 weeks out of surgery, we discussed proceeding w/ ROM stretching and exercises. Pt presents w/ post mastectomy pain and tightness through chest and UEs. She has limited ROM and strength of BUEs at this time. -SG Pain Pain Location Chest;Arm;Back;Neck;Shoulder -SG Pain at Present 5 -SG Pain at Best 0 -SG Pain at Worst 8 -SG Pain Description Tightness;Tender;Sore;Numbness;Discomfort;Aching -SG Is your sleep disturbed? Yes -SG Difficulties at work? Yes -SG Difficulties with ADL's? Yes -SG Difficulties with recreational activities? Yes -SG Daily Activities Pt Participated in POC and Goals Yes -SG User Baron (r) = Recorded By, (t) = Taken By, (c) = Cosigned By Initials Name Provider Type Hilda Dodge OTR/Xi Occupational Therapist Lymphedema Row Name 06/28/22 1500 Subjective Pain Able to rate subjective pain? yes -SG Pre-Treatment Pain Level 5 -SG Post-Treatment Pain Level 5 -SG Lymphedema Assessment Lymphedema Classification LUE:;at risk/stage 0 -SG Lymphedema Cancer Related Sx bilateral;simple mastectomy;left;axillary dissection -SG Lymphedema Surgery Comments 06/13/22 -SG Lymph Nodes Removed # 8 -SG Positive Lymph Nodes # 2 -SG Chemo Received -- Starting soon -SG Radiation Therapy Received -- Will complete following chemotherapy -SG Infections or Cellulitis? no -SG Posture/Observations Alignment Options Rounded shoulders;Forward head -SG Posture/Observations Comments Forward protective posture -SG General ROM GENERAL ROM COMMENTS BUE 90 degree shoulder function -SG MMT (Manual Muscle Testing) General MMT Comments Generalized weakness post op mastectomy -SG Lymphedema Edema Assessment Edema Assessment Comment Pt does not demo any edema at this time, mild post op swelling continues -SG Skin Changes/Observations Skin Observations Comment Tight soft tissue restrictions and scar tissue forming following bilateral mastectomy. Skin continues to heal w/ some scabbing and some open areas that are closing -SG Lymphedema Sensation Lymphedema Sensation Reports numbness -SG Lymphedema Sensation Comments Post mastectomy numbness and/or hyposensitivity through chest -SG User Baron (r) = Recorded By, (t) = Taken By, (c) = Cosigned By Initials Name Provider Type Hilda Dodge, OTR/L Occupational Therapist Therapy Education Education Details: Because pt is now 2 weeks out of surgery and has had drains removed today, we discussed how to proceed now w/ safe and appropriate ROM stretches and exercises. We discussed precautions that are still in place such as limited lifting w/ LUE, especially heavy items. We discussed lymphedema and risks/precautions, as she is at higher risk w/ increased LN removal. Pt and I talked about scheduling therapy appointments around the time that she will be in [place] for other appts tolimit her commute. Given: HEP, Symptoms/condition management, Posture/body mechanics Program: New How Provided: Verbal, Demonstration, Written Provided to: Patient Level of Understanding: Verbalized, Demonstrated OT Goals Row Name 06/28/22 1500 OT Short Term Goals STG Date to Achieve 07/29/22 -SG STG 1 ??? Pt will be independent with HEP for shoulder ROM and soft tissue flexibility. -SG STG 2 ??? Bilateral chest soft tissue restrictions will demo at least 25% improvement. -SG STG 3 ??? Pt will be independent w/ gentle self-soft tissue massage -SG Sleeping Car Service Attendant Goals LTG 1 ??? Pt will restore shoulder AROM to PLOF to improve 1 and 2 handed functional activity ability -SG LTG 2 ??? Pt will restore functional scoring using DASH assessment tool to pre- operative amounts (per pt report) to ensure full return to baseline function. -SG LTG 3 ??? Pt will restore full upright posture per pt perception to promote greater functional movement. -SG LTG 4 ??? Pt will demonstrate awareness of individualized lymphedema precautions based on personal risk factors and when to seek medical attn. for assessment of early signs of lymphedema or cellulitis of the affected region -SG LTG 5 ??? Bilateral chest soft tissue restrictions will demo at least 75% improvement. -SG Time Calculation OT Goal Re-Cert Due Date 09/27/22 -SG User Baron (r) = Recorded By, (t) = Taken By, (c) = Cosigned By Initials Name Provider Type Hilda Dodge OTR/L Occupational Therapist OT Assessment/Plan Row Name 06/28/22 1500 OT Assessment Functional Limitations Limitations in functional capacity and performance;Performance in self-care ADL -SG Impairments Range of motion;Posture;Pain;Muscle strength;Joint mobility;Impaired flexibility;Impaired lymphatic circulation -SG Assessment Comments Pt presents w the following: limited ROM bilateral shoulders for overhead tasks; pain and stiffness in chest and shoulders which limits ROM for ADLs/IADLs; strength: decreased core stabilization and decreased UE/machine stoppage frequency checker strength; posture: forward neck and shoulder posture, disrupted scapulo-humeral rhythm; increased tissue tightness over chest, stress across pectoralis major muscle and associated ST through shoulders and trunk; w/ tight soft tissue restrictions and scar tissue;at risk for lymphedema of LUE. She will benefit from continuing with OP OT to address all symptoms.-SG Please refer to paper survey for additional self-reported information Yes -SG OT Diagnosis BrCA -SG OT Rehab Potential Excellent -SG Patient/caregiver participated in establishment of treatment plan and goals Yes -SG Patient would benefit from skilled therapy intervention Yes -SG OT Plan OT Frequency 1x/week -SG Predicted Duration of Therapy Intervention (OT) 20 -SG Planned CPT's? OT EVAL MOD COMPLEXITY: 02813;OT THER ACT EA 15 MIN: 13802MB;OT THER PROC EA 15 MIN:84953IS;OT SELF CARE/MGMT/TRAIN 15 MIN: 39553;OT MANUAL THERAPY EA 15 MIN: 07351;OT BIS XTRACELL FLUID ANALYSIS: 01235 - Planned Therapy Interventions (Optional Details) home exercise program;joint mobilization;manual therapy techniques;patient/family education;postural re- education;ROM (Range of Motion);strengthening;stretching - OT Plan Comments I will plan to see Ms. Brown on the days that she comes to [facility] for appointments, as she has a long commute. We will plan to initiate PORi protocol w/ ASTYM/STM. Progress HEP andROM as tolerated. -SG User Baron (r) = Recorded By, (t) = Taken By, (c) = Cosigned By Initials Name Provider Type Hilda Dodge OTR/Xi Occupational Therapist Outcome Measure Options: Quick DASH Quick DASH Open a tight or new jar.: Mild Difficulty Do heavy sensor technician (e.g., wash case, wash floors): Mild Difficulty Carry a shopping bag or briefcase: Mild Difficulty Wash your back: Mild Difficulty Use a knife to cut food: No Difficulty Recreational activities in which you take some force or impact through your arm, should or hand (e.g. golf, hammering, tennis, etc.): Mild Difficulty During the past week, to what extent has your arm, shoulder, or hand problem interfered with your normal social activites with family, friends, neighbors or groups?: Not at all During the past week, were you limited in your work or other regular daily activities as a result of your arm, shoulder or hand problem?: Slightly Limited Arm, Shoulder, or hand pain: None Tingling (pins and needles) in your arm, shoulder, or hand: None During the past week, how much difficulty have you had sleeping because of the pain in your arm, shoulder or hand?: No difficulty Number of Questions Answered: 11 Quick DASH Score: 13.64 Time Calculation: OT Start Time: 1500 Therapy Charges for Today Code Description Service Date Service Provider Modifiers Qty [id number] HC OT EVAL MOD COMPLEXITY 4 06/28/2022 Hilda Atkinson OTR/Xi GO 1 CAROLINE Gamez 06/29/2022 documented in this encounter Plan of Treatment Upcoming Encounters Date Type Department Care Team (Late st Contact Info) Description 09/18/2024 3:30 PM EST Office Visit [facility] HEMATOLOGY & ONCOLOGY [address] [facility] [address] [place] [address] Bre Crenshaw MD [address] [facility] [address] [place] [address] 12/31/2024 9:00 AM EDT Office Visit [facility] UROLOGY [address] [facility] [address] [place] [address] FabianOralia spiveyDWAYNE [address] [facility] [address] [place] [address] 05/12/2025 1:45 PM EDT Office Visit [facility] CARDIOLOGY [address] [facility] [address] [place] [id number] Obed Woodard MD [address] [facility] [address] [place] [address] documented as of this encounter Visit Diagnoses Diagnosis Malignant neoplasm of left female breast, unspecified estrogen receptor status, unspecified site of breast- Primary Range of motion deficit Adherent scar, skin At risk for lymphedema documented in this encounter Care Teams Motors Assembler Relationship Specialty Start Date End Date Herbert Hair MD [address] [facility] [address] [place] [address] PCP - General Adolescent Medicine 03/03/22 documented as of this encounter
--- OUTSIDE RECORDS SUMMARY | 2024-08-17 15:54 | XMS_ITS | Encounter Summary ---
Author Organization [facility] Address [address] [place] [address] Care Team Providers Care Hall Worker Name Role Phone Herbert Hair MD Primary Care Provider [phone] Encounter Details Date Type Department Care Team (Late st Contact Info) Description 07/11/2022 [facility] [address] [facility] [address] [place] [address] Ambar Montanez, [facility] [address] [place] [address] Social History Tobacco Use Types Packs/Day Years [...] on file documented as of this encounter Nursing Notes * Ambar Montnaez, [facility] - 07/11/2022 12:01 PM EDTSummary: Education ddAC --> Taxol Images from the original note were not included. Outpatient Infusion ??? [address] ??? [address] ??? [place] [address] ??? [phone] CHEMOTHERAPY EDUCATION NAME: Leydi Brown : 1975 DATE: 07/11/22 Medication Education Sheets: (select all that apply) Cyclophosphamide, Doxorubicin, Paclitaxel and Pegfilgrastim Other Education Sheets: (select all that apply) CINV, Diarrhea and Symptom Tracker Sheet and JOSSY Information Chemotherapy Regimen: OP BREAST AC DD DOXOrubicin / Cyclophosphamide every 14 days x 4 cycles Followed by paclitaxel IV on day 1 of a 14-day cycle x 4 cycles She will get pegfilgrastim (Udenyca) subcutaneously on day 2 of all cycles. TOPICS EDUCATION PROVIDED COMMENTS ANEMIA: role of RBC, cause, s/s, ways to manage, role of transfusion [x] ddAC and ddTaxol Reviewed the role of RBC and the use of transfusions if hemoglobin decreases too much. Patient to notify us if they experience shortness of breath, dizziness, or palpitations. Also let patient know they could feel more tired than usual and to try to stay active, but rest if they need to. THROMBOCYTOPENIA: role of platelet, cause, s/s, ways to prevent bleeding, things to avoid, when to seek help [x] ddACand ddTaxol Reviewed the role of platelets in blood clotting and when to call clinic (bloody nose that bleeds for 5 mins despite pressure, a cut that won't stop bleeding despite pressure, gums that bleed excessively with brushing or flossing). Recommended using an electric razor, soft bristle toothbrush, and blowing your nose gently. NEUTROPENIA: role of WBC, cause, infection precautions, s/s of infection, when to call MD [x] ddAC and ddTaxol Reviewed the role of WBC, good infection prevention practices, and when to call the clinic (temperature 100.4F, sore throat, burning urination, etc) COVID Vaccines: 1 dose received Flu Vaccine: Declined flu vaccine DIARRHEA: causes, s/s of dehydration, ways to manage, dietary changes, when to call MD [x] ddTaxol - Discussed risk of diarrhea. Instructed patient that they can use OTC loperamide at first presentation of diarrhea, but call MD if 4-6 episodes in 24 hours not relieved by OTC loperamide. NAUSEA & VOMITING: cause, use of antiemetics, dietary changes, when to call MD [x] ??? Emetic risk: ddAC - high risk, ddTaxol - low risk ??? Premeds: --ddAC premeds - Zyprexa, Aloxi, Emend, Dexamethasone --ddTaxol - Dexamethasone ??? Scheduled home meds for ddAC: Olanzapine ??? PRN home meds: Ondansetron 8 mg PO TID PRN N/V ??? Pharmacy home meds sent to: [facility] in [place], [place] - she's already picked these up Instructed the patient to take the scheduled olanzapine 5 mg PO QHS on days 2, 3, 4 after chemotherapy (only the ddAC cycles), even if they do not feel nauseous. I explained this is to prevent delayed nausea. Instructed the patient to take a dose of the PRN medication at the first onset of nausea and if it's not working to call us for additional medications. Also provided non-drug measures to mitigate nausea. MOUTH SORES: causes, oral care, ways to manage [x] ddAC and ddTaxol Mouth sores can be prevented by making a mouth wash mixture of salt, baking soda, and water. The patient was instructed to swish and spit four times daily after meals and before bedtime. Use of a soft bristle toothbrush was recommended. The patient was instructed to avoid alcohol-containing OTC mout hwashes. ALOPECIA: cause, ways to manage, resources [x] ddAC and ddTaxol Discussed the possibility of hair loss with the patient. Informed patient that they could request aprescription for a wig if desired and most of the cost is usually covered by insurance. Recommendedcovering the head with a hat and/or protecting the skin on the head with SPF 30 or higher. Contact information for nurse matias To was given to the patient. NERVOUS SYSTEM CHANGES: causes, s/s, neuropathies, cognitive changes, ways to manage [x] ddTaxol - Discussed the adverse effect of peripheral neuropathy and signs/symptoms associated with this adverse effect. Instructed patient to call if symptoms become more frequent or worsen. PAIN: causes, ways to manage [x] ddAC and ddTaxol Chemo/Neulasta - Discussed muscle and joint aches/pains with chemotherapy, and recommended the use of OTC pain relief with ibuprofen or acetaminophen if needed. Discussed bone pain related to growth factors, use of OTC claritin, and when to contact their MD. and Doxorubicin-Vesicant Pain and Paclitaxel is an irritant with vesicant-like properties: Instructed the patient to notify their nurse if they have any pain at the IV site during the infusion. SKIN & NAIL CHANGES: cause, s/s, ways to manage [x] ddTaxol - Informed patient that they may see dark or white lines on finger and toenails during treatment, and that their nails may become brittle and even fall off in extreme cases.??But that this would likely reverse after treatment concludes. Recommended avoiding acrylic nails during treatment. ORGAN TOXICITIES: cause, s/s, need for diagnostic tests, labs, when to notify MD [x] Discussed potential effects on organ systems, monitoring, diagnostic tests, labs, and when to notify their MD. Discussed the signs/symptoms of the following: -Less common, but possible risk of hemorrhagic cystitis with ddAC, discussed signs/symptoms, and the need to hydrate well the day before, day of, and day after treatment -Rare, but serious risk of decreased LVEF with ddAC, explained the rationale for baseline ECHO to check how well her heart is pumping -Rare, but serious possibility with ddAC of pulmonary toxicity -Paclitaxel can harm the liver, discussed signs/symptoms and when to contact clinic. We will check labs before every cycle. INFUSION RELATED REACTIONS or INJECTION-SITE REACTION: Cause, s/s, anaphylaxis, monitoring, etc. [x] Premeds for ddTaxol: Diphenhydramine and Famotidine Discussed the risk of an infusion reaction with paclitaxel and symptoms such as: fever, chills, dizziness, itchiness or rash, flushing, trouble breathing, wheezing, sudden back pain, or feeling faint. Instructed the patient to notify their nurse if they start feeling weird at any point during theirinfusion. Reviewed how infusion reactions are managed. MISCELLANEOUS: drug interactions, administration, labs, etc. [x] Discussed chemotherapy schedule, lab draws, infusion times, and total expected visit time. ??? DDIs: No significant DDIs ??? Drug-food interactions: None ??? Lab draws: On or before day 1 of each cycle, no sooner than 3 days early. ??? Miscellaneous: Doxorubicin Red Body Fluids: Discussed the possibility of red body fluids for about 2-3 days after doxorubicin. Recommended the patient not wear contacts during this time because they could be stained pink. Patient instructed to contact clinic if urine is red or they notice bloodin the urine occurring 3 or so days after receiving doxorubicin. ??? She's already picked up the EMLA cream, discussed how to use this prior to Port access. INFERTILITY & SEXUALITY: causes, fertility preservation options, sexuality changes, ways to manage, importance of control [x] IV Oncology Therapy: Reviewed safe sex practices and minimizing exposure to body fluids for 48 hours after each dose of IV oncology therapy. and The patient is not of childbearing potential. HOME CARE: storing of oral chemo, how to manage bodily fluids [x] IV - Counseled on management of soiled linens and proper flush technique. ??Discussed how to manage all the side effects at home and advised when to contact the MD office SURVIVORSHIP: distress, distress assessment, secondary malignancies, early/late effects, follow-up, social issues, social support [x] Discussed the rare, but possible risk of secondary malignancies with ddAC, months to years after treatment, most commonly Acute myeloid leukemia Medications: Prior to Admission medications Medication Sig Start Date End Date Taking? Authorizing Provider busPIRone (BUSPAR) 7.5 MG tablet Take 15 mg by mouth every night at bedtime. 05/10/22 Rico Blair MD cholecalciferol (VITAMIN D3) 25 MCG (1000 UT) tablet Take 2,000 Units by mouth Daily. Rico Blair MD Dexilant 60 MG capsule Take 60 mg by mouth Every Morning. 11/01/21 Rico Blair MD fexofenadine (SANTIAGO) 180 MG tablet Take 180 mg by mouth Daily. Rico Blair MD fluticasone (FLONASE) 50 MCG/ACT nasal spray 2 sprays into the nostril(s) as directed by provider Daily. Rico Blair MD levothyroxine (SYNTHROID, LEVOTHROID) 25 MCG tablet Take 25 mcg by mouth Daily. Rico Blair MD lidocaine-prilocaine (EMLA) 2.5-2.5 % cream Apply 1 application topically to the appropriate area as directed As Needed (45-60 minutes prior to port access. Cover with saran/plastic wrap.). 07/10/22 Bre Crenshaw MD OLANZapine (zyPREXA) 5 MG tablet Take 1 tablet by mouth Every Night. Take on days 2, 3 and 4 after chemotherapy. 07/10/22 Bre Crenshaw MD ondansetron (ZOFRAN) 8 MG tablet Take 1 tablet by mouth 3 (Three) Times a Day As Needed for Nausea or Vomiting. 07/10/22 Bre Crenshaw MD polycarbophil 625 MG tablet tablet Take 625 mg by mouth Daily. Rico Blair MD Vit-Fe Zkgbivv-XA-UCX ( VITAMIN/MIN +DHA PO) Take 1 tablet by mouth Daily. Rico Blair MD propranolol (INDERAL) 20 MG tablet Take 20 mg by mouth every night at bedtime. 05/16/22 Rico Blair MD pseudoephedrine-guaifenesin (MUCINEX D) 60-600 MG per 12 hr tablet Take 1 tablet by mouth Every 12 (Twelve) Hours. As needed Rico Blair MD telmisartan-hydrochlorothiazide (MICARDIS HCT) 40-12.5 MG per tablet Take 1 tablet by mouth Every Evening. 11/28/20 Rico Blair MD vitamin B-12 (CYANOCOBALAMIN) 1000 MCG tablet Take 1,000 mcg by mouth Daily. Rico Blair MD vitamin C (ASCORBIC ACID) 500 MG tablet Take 500 mg by mouth Daily. Rico Blair MD Zinc 50 MG capsule Take 50 mg by mouth Daily. Rico Blair MD Notes: All questions and concerns were addressed. Provided a personalized treatment calendar to patient (includes treatment and lab schedule). Provided patient with contact information for the pharmacist and clinic while instructing them to call if any questions or concerns arise. Informed consent for treatment was obtained. Patient was receptive to information and expressed understanding. Anuradha Montanez, PharmD, OP - Oncology Clinical Pharmacist [phone] 07/11/2022 12:01 EDT documented in this encounter Plan of Treatment Upcoming Encounters Date Type Department Care Team (Late st Contact Info) Description 09/18/2024 3:30 PM EST Office Visit [facility] HEMATOLOGY & ONCOLOGY [address] [facility] [address] [place] [address] Bre Crenshaw MD [address] [facility] [address] [place] [address] 12/31/2024 9:00 AM EDT Office Visit [facility] UROLOGY [address] [facility] [address] [place] [address] Oralia Saha APRN [address] [facility] [address] [place] [address] 05/12/2025 1:45 PM EDT Office Visit [facility] CARDIOLOGY [address] [facility] [address] [place] [address] Obed Woodard MD [address] [facility] [address] [place], [place] [id number] documented as of this encounter Visit Diagnoses Not on filedocumented in this encounter Additional Health Concerns Assessment Noted Time PHQ-2 Depression Total Score: 2 07/11/20 22 1:07 PM EDT documented as of this encounter Care Teams Hall Worker Relationship Specialty Start Date End Date Herbert Hair MD [address] [facility] [address] [place] [address] PCP - General Adolescent Medicine 03/03/22 documented as of this encounter
--- OUTSIDE RECORDS SUMMARY | 2024-08-17 15:54 | XMS_ITS | Encounter Summary ---
Author Organization [facility] Address [address] [place] [address] Care Team Providers Care Steel Rule Inspector Name Role Phone Herbert Hair MD Primary Care Provider [phone] Reason for Visit * Reason Onset Date Comments INGRID-PRESCRIPTION 07/10/2022 Encounter Details Date Type Department Care Team (Late st Contact Info) Description 07/10/2022 Telephone [facility] HEMATOLOGY & ONCOLOGY [address] [address] Bre Crenshaw MD [address] [place] [id number] INGRID-PRESCRIPTION Social History Tobacco Use Types Packs/Day Years [...] Telephone Encounter - Yanet Preston RN - 07/10/2022 8:49 AM EDT I called [place] at [facility] and confirmed that we were using zyprexa for chemo induced nausea/vomiting and I also asked her to change the quantity to 12 instead of three with zero refills. She said she would do that. * Telephone Encounter - Floresita Donaldson - 07/10/2022 8:40 AM EDT Ver[place] with [facility] called she has a question about the prescription for the Olanzapine 5 mg. Please call. documented in this encounter Plan of Treatment Upcoming Encounters Date Type Department Care Team (Late st Contact Info) Description 09/18/2024 3:30 PM EST Office Visit [facility] HEMATOLOGY & ONCOLOGY [address] [facility] [address] [place] [address] Bre Crenshaw MD [address] [facility] [address] [place] [address] 12/31/2024 9:00 AM EDT Office Visit [facility] UROLOGY [address] [facility] [address] [place] [address] Oralia Saha APRN [address] [address] 05/12/2025 1:45 PM EDT Office Visit [facility] CARDIOLOGY [address] [place] [address] Obed Woodard MD [address] [facility] [address] [place] [address] documented as of this encounter Visit Diagnoses Not on filedocumented in this encounter Care Teams Steel Rule Inspector Relationship Specialty Start Date End Date Herbert Hair MD [address] [facility] [address] [place] [address] PCP - General Adolescent Medicine 03/03/22 documented as of this encounter
--- OUTSIDE RECORDS SUMMARY | 2024-08-17 15:54 | XMS_ITS | Encounter Summary ---
Author Organization [facility] Address [address] [place] [address] Care Team Providers Care Manager Pool Name Role Phone Herbert Hair MD Primary Care Provider [phone] Encounter Details Date Type Department Care Team (Late st Contact Info) Description 06/28/2022 Documentation [facility] [address] [place] [id number] Floresita Castle, RN Social History Tobacco Use Types Packs/Day [...] Visit [facility] HEMATOLOGY & ONCOLOGY [address] [facility] [address] [place] [address] Bre Crenshaw MD [address] [facility] [address] [place] [address] 12/31/2024 9:00 AM EDT Office Visit [facility] UROLOGY [address] [facility] [address] [place] [address] Oralia Saha APRN [address] [facility] [address] [place] [address] 05/12/2025 1:45 PM EDT Office Visit [facility] CARDIOLOGY [address] [facility] [address] [place] [address] Obed Woodard MD [address] [facility] [address] [place], [place] [id number] documented as of this encounter Visit Diagnoses Diagnosis Malignant neoplasm of lower-outer quadrant of left breast of female, estrogen receptor positive documented in this encounter Care Teams Manager Pool Relationship Specialty Start Date End Date Herbert Hair MD [address] [facility] [address] [place] [address] PCP - General Adolescent Medicine 03/03/22 documented as of this encounter
--- OUTSIDE RECORDS SUMMARY | 2024-08-17 15:54 | XMS_ITS | Encounter Summary ---
Author Organization [facility] Address [address] [place] [address] Care Team Providers Care Warranty Administrator Name Role Phone Herbert Hair MD Primary Care Provider [phone] Reason for Visit * Reason Onset Date Comments INGRID - REGARDING DEPRESSION MEDS 06/30/2022 Encounter Details Date Type Department Care Team (Late st Contact Info) Description 06/30/2022 Telephone [facility] HEMATOLOGY & ONCOLOGY [address] [phone] Bre Crenshaw MD [address] [place] [address] INGRID - REGARDING DEPRESSION MEDS Social History Tobacco Use Types Packs/Day Years [...] Telephone Encounter - Yanet Preston RN - 06/30/2022 1:49 PM EDT I called the patient back and told her that Dr. Crenshaw is recommending referral to [facility] for behavioral counseling and med management. Patient is agreeable and I put the referral in. * Telephone Encounter - Erika Benavides RegSched Rep - 06/30/2022 12:25 PM EDT Caller: Leydi Bronw Relationship: Self Best call back number: [phone] What is the best time to reach you: ANYTIME Who are you requesting to speak with (clinical staff, provider, specific staff member): DOCTOR, NURSE, TATY OR EDWIN CARLISLE What was the call regarding: PT WAS CALLING SHE WAS CRYING WANTING TO SPEAK TO TATY OR EDWIN CARLISLE REGARDING DEPRESSION MEDS. TRIED TO W/T NO RESPONSE ON EITHER LINE. CALL HER BACK DANIS TO EITHER GIVE HER THE NUMBER OR PASS THE MSG TO SOMEONE THAT CAN HELP HER. Do you require a callback: YES documented in this encounter Plan of Treatment Upcoming Encounters Date Type Department Care Team (Late st Contact Info) Description 09/18/2024 3:30 PM EST Office Visit [facility] HEMATOLOGY & ONCOLOGY [address] [facility] [address] [place] [address] Bre Crenshaw MD [address] [facility] [address] [place] [address] 12/31/2024 9:00 AM EDT Office Visit [facility] UROLOGY [address] [facility] [address] [place] [phone] Oralia Saha APRN [address] [facility] [address] [place], [place] [id number] 05/12/2025 1:45 PM EDT Office Visit [facility] CARDIOLOGY [address] [facility] [address] [place] [address] Obed Woodard MD [address] [facility] [address] [place] [address] documented as of this encounter Visit Diagnoses Not on filedocumented in this encounter Care Teams Warranty Administrator Relationship Specialty Start Date End Date Herbert Hair MD [address] [facility] [address] [place] [address] PCP - General Adolescent Medicine 03/03/22 documented as of this encounter
--- OUTSIDE RECORDS SUMMARY | 2024-08-17 15:54 | XMS_ITS | Encounter Summary ---
Author Organization [facility] Address [address] [place] [address] Care Team Providers Care Assistant Health Educator Name Role Phone Herbert Hair MD Primary Care Provider Reason for Referral * (Emergency) - Closed Specialty Diagnoses / Procedures Referred By Narsin hernandez Referred To Contact Radiology Diagnoses Malignant neoplasm of left female breast, unspecified estrogen receptor status, unspecified site of breast Procedures XR Chest 1 View An Bell MD [address] [facility] [address] [place] [address] Phone: tel: fax: Referral ID Status Reason Start Date Expiration Date Visits Re quested Visits Authorized [id number] Closed 07/06/2022 07/06/2023 1 1 Reason for Visit * (Emergency) - Closed Specialty Diagnoses / Procedures Referred By Nasrin hernandez Referred To Contact Radiology Diagnoses Malignant neoplasm of left female breast, unspecified estrogen receptor status, unspecified site of breast Procedures XR Chest 1 View An Bell MD [address] [facility] [address] [place] [address] Phone: tel: fax: Referral ID Status Reason Start Date Expiration Date Visits Re quested Visits Authorized [id number] Closed 07/06/2022 07/06/2023 1 1 Encounter Details Date Type Department Care Team (Late st Contact Info) Description 07/07/2022 7:07 AM EDT - 07/07/2022 11:59 PM EDT Hospital Encounter [facility] XRAY [address] [place] [phone] An Bell MD [address] [facility] [address] [place] [address] Malignant neoplasm of left female breast, unspecified estrogen receptor status, unspecified site of breast Discharge Disposition: Home or Self [...] 1 tablet by mouth Daily. 3 Vit-Fe Fmbaxui-MM-WSH ( VITAMIN/MIN +DHA PO) Take 1 tablet [...] [facility] [address] [facility] [address] [place] [address] Bre Crenshaw MD [address] [facility] [address] [place] [address] 12/31/2024 9:00 AM EDT Office Visit [facility] UROLOGY [address] [facility] [address] [place], [place] [phone] Oralia Saha APRN [address] [facility] [address] [place], [place] [phone] 05/12/2025 1:45 PM EDT Office Visit [facility] CARDIOLOGY [address] [place] [address] Obed Woodard MD [address] [facility] [address] [place], [place] [phone] documented as of this encounter Procedures Procedure Name Priority Date/Time Associated Diagnosis Comments XR CHEST 1 VW STAT 07/07/2022 8:19 AM EDT Malignant neoplasm of left female breast, unspecified estrogen receptor status, unspecified site of breast documented in this encounter Results * XR Chest 1 View (07/07/2022 8:19 AM EDT) Anatomical Region Laterality Modality Body N/A Radiographic Nubia ging 07/07/2022 8:30 AM EDT Impressions 07/07/2022 8:31 AM EDT Right-sided infusion port terminates in appropriate position, without evidence of pneumothorax. This report was finalized on 07/07/2022 8:31 AM by Alfred Lainez. Narrative 07/07/2022 8:31 AM EDT DATE OF EXAM: 07/07/2022 8:03 AM PROCEDURE: XR CHEST 1 VW- INDICATIONS: C50.912; C50.912-Malignant neoplasm of unspecified site of left female breast COMPARISON: No comparisons available. TECHNIQUE: Single radiographic AP view of the chest was obtained. FINDINGS: Right chest wall infusion port terminates in the SVC. There is minimal scattered atelectasis, without focal consolidation. There is no effusion or pneumothorax. Unremarkable heart and mediastinal contours. Procedure Note Alfred Lainez MD - 07/07/2022 DATE OF EXAM: 07/07/2022 8:03 AM PROCEDURE: XR CHEST 1 VW- INDICATIONS: C50.912; C50.912-Malignant neoplasm of unspecified site of left female breast COMPARISON: No comparisons available. TECHNIQUE: Single radiographic AP view of the chest was obtained. FINDINGS: Right chest wall infusion port terminates in the SVC. There is minimal scattered atelectasis, without focal consolidation. There is no effusion or pneumothorax. Unremarkable heart and mediastinal contours. IMPRESSION: Right-sided infusion port terminates in appropriate position, without evidence of pneumothorax. This report was finalized on 07/07/2022 8:31 AM by Alfred Lainez. An Bell MD IMG DIAGNOSTIC IMAGING OR DERABLES Final Result documented in this encounter Visit Diagnoses Diagnosis Malignant neoplasm of left female breast, unspecified estrogen receptor status, unspecified site of breast documented in this encounter Care Teams Assistant Health Educator Relationship Specialty Start Date End Date Herbert Hair MD [address] [facility] [address] [address] PCP - General Adolescent Medicine 03/03/22 documented as of this encounter
--- OUTSIDE RECORDS SUMMARY | 2024-08-17 15:55 | XMS_ITS | Encounter Summary ---
Author Organization [facility] Address [address] [place] [address] Care Team Providers Care Geology Teacher Name Role Phone Herbert Hair MD Primary Care Provider Reason for Visit * Auth/Cert Specialty Diagnoses / Procedures Referred By Nasrin hernandez Referred To Contact Diagnoses Malignant neoplasm of lower-outer quadrant of left female breast . Procedures WV MASTECTOMY, SIMPLE, COMPLETE WV REMOVE ARMPITS LYMPH NODES COMPLT LEFT BREAST MASTECTOMY, LEFT AXILLARY NODE DISSECTION, PROPHYLATIC RIGHT MASTECTOMY Referral ID Status Reason Start Date Expiration Date Visits Re quested Visits Authorized [id number] 1 1 Encounter Details Date Type Department Care Team (Late st Contact Info) Description 06/13/2022 9:24 AM EDT Anesthesia Event [facility] OR [address] [place] [address] Puja Hines MD [address] [place] [id number] Anesthesia Record Procedure Summary Procedure Name Responsible Anesthesiologist Anesthesia Start Time Anesthesia Stop Time BREAST MASTECTOMY LEFT, AXILLARY NODE DISSECTION LEFT, PROPHYLATIC RIGHT MASTECTOMY (Breast) Puja Hines MD 06/13/22 0924 06/13/22 1217 Events Date Time Event Comment 06/13/2022 0805 0910 AN Equip Check 0924 An Start Data 0924 An Start The patient was reevaluated immediately before moderate or deep sedation use and before anesthesia induction. 0931 An Induction 0932 An Intubation 0933 Block Placed 1207 An Extubation 1211 Start Supplemental O2 1211 an stop data 1217 An Stop 1217 Handoff to RN The following has been [...] of report from the receiving PACU/ICU team Meds Name Total fentaNYL (SUBLIMAZE) injection 100 mcg lidocaine (XYLOCAINE) injection 1% 50 mg propofol (DIPRIVAN) injection 200 mg rocuronium (ZEMURON) 50 mg/5 mL injectio n 50 mg dexamethasone (DECADRON) 4 mg/mL 4 mg ondansetron 2 mg/mL 4 mg ceFAZolin in dextrose (ANCEF) IVPB solut ion 2 g 2 g propofol (DIPRIVAN) infusion 10 mg/mL 10 0 mL 498.46 mg buprenorphine (BUPRENEX) injection 0.3 m g bupivacaine PF (MARCAINE) 0.25 % injecti on 60 mL bupivacaine PF (MARCAINE) 0.25 % injecti on 30 mL dexamethasone sodium phosphate injection 4 mg dexamethasone sodium phosphate injection 2 mg esmolol (BREVIBLOC) 100 mg/10 mL injecti on 60 mg sugammadex (BRIDION) 200 mg/2 mL injecti on 200 mg lactated ringers infusion 1,000 mL * Agents Name O2 N2O Air Sevoflurane * Blood No blood administrations on file. Lines, Drains, and Airways Type Details Placement Removal Closed/Suction Drain 06/13/22; Yes; 1; Right; Breast; Bulb; 15 Fr. 06/13/22 0000 by Marly Scott RN 03/07/23 1307 by Bronwyn Chery RN Closed/Suction Drain 06/13/22; Yes; 1; L eft; Breast; Bulb; 15 Fr. 06/13/22 0000 by Marly Scott RN 03/07/23 1307 by Bronwyn Chery RN Peripheral IV Placement Date: 06/13/22; Placement Time: 723; Catheter Size: 18 G; Orientation: Posterior, Right; Location: Hand; Site Prep: Chlorhexidine; Local Anes: Injectable; Technique: Anatomical landmarks; Inserted by: Mey Carr RN; Insertion Attempts: 3; Patient Tolerance: Tolerated well; Removal Date: 07/13/22 (No PIV present on admission today.) 06/13/22 0724 by Cindy Carr RN 07/13/22 0000 by Siomara Yanes RN ETT Placement Date: 06/13/22; Placement Time: 931 (created via procedure documentation); Tube Size: 7 mm; Blade Size: 3; Location: Oral; Removal Date: 06/13/22; Removal Time: 1207 06/13/22 0932 by Puja Hines MD 06/13/22 1207 by Francisco Dick SRNA Wound 06/13/22; 0951; Righ t; lower; breast; Incision; N; 03/07/23; 1307 06/13/22 0951 by Marly Scott RN 03/07/23 1307 by Bronwyn Chery RN Wound 06/13/22; 0951; Left ; lower; breast; Incision; 03/07/23; 1307 06/13/22 0951 by Marly Scott RN 03/07/23 1307 by Bronwyn Chery RN documented in this encounter Social History [...] as of this encounter Progress Notes * Eliza Davila CRNA - 06/13/2022 2:57 PM EDT Addendum created 06/13/22 1457 by Eliza Davila CRNA Clinical Note Signed, Intraprocedure Blocks edited * Eliza Davila CRNA - 06/13/2022 2:13 PM EDT Addendum created 06/13/22 1413 by Eliza Davila CRNA Child order released for a procedure order, Clinical Note Signed, Intraprocedure Blocks edited documented in this encounter OR Notes * Anesthesia Procedure Notes - Eliza Davila CRNA - 06/13/2022 2:13 PM EDT Associated Order(s): Bilateral Parasternal SS block Bilateral Parasternal SS block Patient reassessed immediately [...] seen on ultrasound in close proximity thereto. There were no abnormalities seen on ultrasound; a [...] linear transducer that is placed in a parasagittalplane 2 cm left of the sternum at [...] every 5 ml to prevent intravascular injection. * Anesthesia Postprocedure Evaluation - Eliza Davila CRNA - 06/13/2022 12:17 PM EDT Patient: Leydi Brown Procedure Summary Date: 06/13/22 Room / Location: [facility] OR [place] Anesthesia Start: 923 Anesthesia Stop: Procedure: LEFT BREAST MASTECTOMY, LEFT AXILLARY NODE DISSECTION, PROPHYLATIC RIGHT MASTECTOMY (N/ABreast) Diagnosis: Malignant neoplasm of lower-outer quadrant of left female breast Surgeons: An Bell MD Provider: Puja Hines MD Anesthesia Type: general with block, ERAS Protocol ASA Status: 3 Anesthesia Type: general with block, ERAS Protocol Vitals Vitals Value Taken Time BP 169/93 06/13/22 1216 Temp 97.2 ??F (36.2 ??C) 06/13/22 1216 Pulse 65 06/13/22 1216 Resp 23 06/13/22 1216 SpO2 96 % 06/13/22 1216 Post Anesthesia Care and Evaluation Patient location during evaluation: PACU Patient participation: complete - patient cannot participate Level of consciousness: responsive to physical stimuli Pain score: 0 Pain management: adequate Airway patency: patent Anesthetic complications: No anesthetic complications Cardiovascular status: stable Respiratory status: acceptable, nasal cannula, oral airway and spontaneous ventilation Hydration status: stable Comments: Pt transferred to PACU with O2. Vital signs stable. Report to CRUSHER LOADER OPERATOR and care accepted. * Anesthesia Procedure Notes - Eliza Davila CRNA - 06/13/2022 9:56 AM EDT Associated Order(s): Airway Airway Urgency: elective Date/Time: 06/13/2022 9:32 AM Airway not difficult General Information and Staff Patient location during procedure: OR BLUEPRINT PROCESSOR/CAA: Eliza Davila CRNA SRNA: Kapil, Francisco, SRNA Indications and Patient Condition Indications for airway management: airway protection Preoxygenated: yes MILS not maintained throughout Mask difficulty assessment: 1 - vent by mask Final Airway Details Final airway type: endotracheal airway Successful airway: ETT Cuffed: yes Successful intubation technique: direct laryngoscopy Endotracheal tube insertion site: oral Blade: Yonny Blade size: 3 ETT size (mm): 7.0 Cormack-Lehane Classification: grade I - full view of glottis Placement verified by: chest auscultation and capnometry Cuff volume (mL): 6 Measured from: lips ETT/EBT to lips (cm): 21 Number of attempts at approach: 2 Assessment: lips, teeth, and gum same as pre-op and atraumatic intubation Additional Comments Negative epigastric sounds, Breath sound equal bilaterally with symmetric chest rise and fall * Anesthesia Procedure Notes - Eliza Davila CRNA - 06/13/2022 9:09 AM EDT Associated Order(s): Bilateral PECS I&II Bilateral PECS I&II Patient reassessed immediately prior [...] AM Medications Preservative Free Saline:10ml Comment:Block Injection: Total volume of LA divided between Right and Left sided blocks Post Assessment Injection Assessment: negative aspiration for heme and incremental injection Patient Tolerance:comfortable throughout block Complications:no Additional Notes The pt. Was placed in the Supine Position and GA was induced The insertion site was prepped with CHG and Ultrasound guidance with In-Plane techniquewas a 4inch BBraun 360 degree echogenic needle was visualized. Normal Saline PSF was utilized for hydrodissection of tissue. PECS 1 Block- Pectoralis Major and Minor where identified and LA was injected between PMM and PmM at the level of the 3rd Rib(10ml), PECS 2- Pectoralis Minor and Serratus muscle where identified and the needle was advanced laterally in-plane with the 4th rib as a backstop, pleura was monitored. LA was injected between SA and PmM at the level of 4th rib( 20ml). LA injection spread was visualized, injection was incremental 1-5ml, normal or low injection pressure, no intravascular injection, no pneumothorax appreciated. Thank You. * Anesthesia Preprocedure Evaluation - Puja Hines MD - 06/13/2022 7:58 AM EDT Anesthesia Evaluation Patient summary reviewed and Nursing notes reviewed history of anesthetic complications: PONV NPO Solid Status: > 8 hours NPO Liquid Status: > 2 hours Airway Mallampati: II TM distance: >3 FB Neck ROM: full No difficulty expected Dental - normal exam Pulmonary - negative pulmonary ROS and normal exam Cardiovascular - normal exam (+) hypertension, (-) angina, MARIANO Neuro/Psych (+) headaches, psychiatric history Anxiety, GI/Hepatic/Renal/Endo (+) GERD well controlled, thyroid problem (h/o yosef's) hypothyroidism (-) liver disease, diabetes Musculoskeletal Abdominal Substance History PHOTOGRAPHERS' MODEL Comment: leiomyoma Other history of cancer (breast cancer) Anesthesia Plan ASA 3 general with block and ERAS Protocol (Low dose propofol gtt for anti-nausea technique Scop patch) intravenous induction Anesthetic plan, risks, benefits, and alternatives have been provided, discussed and informed consent has been obtained with: patient. Plan discussed with BLUEPRINT PROCESSOR. CODE STATUS: documented in this encounter Plan of Treatment Upcoming Encounters Date Type Department Care Team (Late st Contact Info) Description 09/18/2024 3:30 PM EST Office Visit [facility] HEMATOLOGY & ONCOLOGY [address] [facility] [address] [place] [phone] Bre Crenshaw MD [address] [facility] [address] [place] [address] 12/31/2024 9:00 AM EDT Office Visit [facility] UROLOGY [address] [facility] [address] [place] [address] Oralia Saha APRN [address] [facility] [address] [place], [place] [phone] 05/12/2025 1:45 PM EDT Office Visit [facility] CARDIOLOGY [address] [facility] [address] [place] [phone] Obed Woodard MD [address] [facility] [address] [place], [place] [phone] documented as of this encounter Procedures Procedure Name Priority Date/Time Associated Diagnosis Comments ANESTHESIA PERIPHERAL BLOCK Routine 06/13/2022 2:25 PM EDT ANESTHESIA PERIPHERAL BLOCK Routine 06/13/2022 9:33 AM EDT ANESTHESIA INTUBATION Routine 06/13/2022 9:32 AM EDT documented in this encounter Results * Bilateral Parasternal SS block (06/13/2022 2:25 PM EDT) Narrative Eliza Davila CRNA - 06/13/2022 2:25 PM EDT Eliza Davila CRNA ? 06/13/2022 ??2:57 PM Bilateral Parasternal SS [...] ANESTHESIA ORDERABLES Edite d Result - Final * Bilateral PECS I&II (06/13/2022 9:33 AM [...] no pneumothorax appreciated. ??Thank You. us Eliza Davila CRNA ANESTHESIA ORDERABLES Omer jay Result - Final * BH AN ETT AIRWAY (06/13/2022 9:32 AM EDT) Narrative Eliza Davila CRNA - 06/13/2022 9:32 AM EDT Eliza Davila CRNA ? 06/13/2022 12:17 PM Airway Urgency: elective Date/Time: 06/13/2022 9:32 AM Airway not difficult General Information and Staff Patient location during procedure: OR BLUEPRINT PROCESSOR/CAA: Eliza Davila CRNA SRNA: Francisco Dick SRNA Indications and Patient Condition Indications for airway management: airway protection Preoxygenated: yes MILS not maintained throughout Mask difficulty assessment: 1 - vent by mask Final Airway Details Final airway type: endotracheal airway Successful airway: ETT Cuffed: yes Successful intubation technique: direct laryngoscopy Endotracheal tube insertion site: oral Blade: Yonny Blade size: 3 ETT size (mm): 7.0 Cormack-Lehane Classification: grade I - full view of glottis Placement verified by: chest auscultation and capnometry Cuff volume (mL): 6 Measured from: lips ETT/EBT ??to lips (cm): 21 Number of attempts at approach: 2 Assessment: lips, teeth, and gum same as pre-op and atraumatic intubation Additional Comments Negative epigastric sounds, Breath sound equal bilaterally with symmetric chest rise and fall us Puja Hines MD ANESTHESIA ORDERABLES Final Result documented in this encounter Visit Diagnoses Not on filedocumented in this encounter Administered Medications Inactive Administered Medications - up to 3 most recent administrations Medication Order MAR Action Action Date Dose Rate Site bupivacaine (PF) (MARCAINE) 0.25 % injection Injection, Starting on Sun06/13/22 at 0934 Given 06/13/2022 9:33 AM EDT 60 mL bupivacaine (PF) (MARCAINE) 0.25 % injection Injection, Starting on Sun06/13/22 at 1425 Given 06/13/2022 2:25 PM EDT 30 mL buprenorphine (BUPRENEX) injection Injection, Starting on Sun06/13/22 at 0934 Given 06/13/2022 9:33 AM EDT 0.3 mg ceFAZolin in dextrose (ANCEF) IVPB solution 2 g 2 g, Intravenous, Administer over 30 Minutes, Once, On Sun06/13/22 at 0702, For 1 dose, For Patient Weight < 120 kg. Caution: Look alike/sound alike drug alert, Indications: Surgical ProphylaxisIndications:Surgical Prophylaxis Given 06/13/2022 9:35 AM EDT 2 g dexamethasone (DECADRON) injection Intravenous, As Needed, Starting on Sun06/13/22 at 0940 Given 06/13/2022 9:40 AM EDT 4 mg dexamethasone sodium phosphate injection Injection, Starting on Sun06/13/22 at 0933 Given 06/13/2022 9:33 AM EDT 4 mg dexamethasone sodium phosphate injection Injection, Starting on Sun06/13/22 at 1425 Given 06/13/2022 2:25 PM EDT 2 mg esmolol (BREVIBLOC) injection Intravenous, As Needed, Starting on Sun06/13/22 at 0931 Given 06/13/2022 10:04 AM EDT 30 mg Given 06/13/2022 9:31 AM EDT 30 mg fentaNYL citrate (PF) (SUBLIMAZE) injection Intravenous, As Needed, Starting on Sun06/13/22 at 1007 Given 06/13/2022 10:07 AM EDT 100 mcg lactated ringers infusion Intravenous, Continuous PRN, Starting on Sun06/13/22 at 0924 New Bag 06/13/2022 12:05 PM EDT New Bag 06/13/2022 9:24 AM EDT lidocaine (XYLOCAINE) 1 % injection Intravenous, As Needed, Starting on Sun06/13/22 at 0931 Given 06/13/2022 9:31 AM EDT 50 mg ondansetron (ZOFRAN) injection Intravenous, As Needed, Starting on Sun06/13/22 at 1156 Given 06/13/2022 11:56 AM EDT 4 mg propofol (DIPRIVAN) infusion 10 mg/mL 100 mL Intravenous, Continuous PRN, Starting on Sun06/13/22 at 0931 Rate/Dose Change 06/13/2022 11:45 AM EDT 100 mcg/kg/min 54.18 mL/hr New Bag 06/13/2022 9:31 AM EDT 30 mcg/kg/min 16.254 mL/ hr Propofol (DIPRIVAN) injection Intravenous, As Needed, Starting on Sun06/13/22 at 0931 Given 06/13/2022 9:31 AM EDT 200 mg rocuronium (ZEMURON) injection Intravenous, As Needed, Starting on Sun06/13/22 at 0931 Given 06/13/2022 10:48 AM EDT 10 mg Given 06/13/2022 9:48 AM EDT 10 mg Given 06/13/2022 9:31 AM EDT 30 mg sugammadex (BRIDION) injection Intravenous, As Needed, Starting on Sun06/13/22 at 1159 Given 06/13/2022 11:59 AM EDT 200 mg documented in this encounter Care Teams Geology Teacher Relationship Specialty Start Date End Date Herbert Hair MD [address] [facility] [address] [facility] [place] [id number] PCP - General Adolescent Medicine 03/03/22 documented as of this encounter
--- OUTSIDE RECORDS SUMMARY | 2024-08-17 15:55 | XMS_ITS | Encounter Summary ---
Author Organization [facility] Address [address] [place] [address] Care Team Providers Care Dip Brazier Name Role Phone Herbert Hair MD Primary Care Provider + [phone] Encounter Details Date Type Department Care Team (Late st Contact Info) Description 05/09/2022 Telephone [facility] [address] [address] Keila Cisse RN MSN Social History Tobacco Use Types Packs/Day Years Used Date Smoking Tobacco: Never Smokeless Tobacco: Never Alcohol Use Standard Drinks/Week Comments Never 0 (1 standard drink = 0.6 oz pur e alcohol) AUDIT-C Answer Date Recorded Q1: How often do you have a drink containing alc ohol? Never 11/22/2020 Average Number of Drinks Not on file 021 Frequency of Binge Drinking Not on file 11/02 Comments No Sex and Gender Information Value Date Recorded Sex Assigned at Not on file Legal Sex Female 10:43 AM EDT Gender Identity Not on file Sexual Orientation Not on file documented as of this encounter Miscellaneous Notes * Telephone Encounter - Keila Cisse RN MSN - 05/09/2022 12:16 PM EDT Referring provider notified via blogfoster basket message pathology returned as cancer & patient willbe notified. C ytology has not yet been made available. Patient notified of pathology results and recommendation. Verbalizes understanding. Denies discomfort. Denies signs and symptoms of infection. Patient desires Dr Bell for surgical consult. Patient will be notified of appointment when scheduled. Patient verbalized understanding. Encouraged patient to view Breast Cancer Information packet and call back with any questions or addthem to the list of questions for Dr Bell at consult visit. documented in this encounter Plan of Treatment Upcoming Encounters Date Type Department Care Team (Late st Contact Info) Description 09/18/2024 3:30 PM EST Office Visit [facility] HEMATOLOGY & ONCOLOGY [address] [facility] [address] [place] [phone] Bre Crenshaw MD [address] [facility] [address] [place] [address] 12/31/2024 9:00 AM EDT Office Visit [facility] UROLOGY [address] [facility] [address] [place] [address] Oralia Saha APRN [address] [facility] [address] [place] [address] 05/12/2025 1:45 PM EDT Office Visit [facility] CARDIOLOGY [address] [facility] [address] [place] [phone] Obed Woodard MD [address] [facility] [address] [place], [place] [id number] documented as of this encounter Visit Diagnoses Not on filedocumented in this encounter Care Teams Dip Brazier Relationship Specialty Start Date End Date Herbert Hair MD [address] [facility] [address] [place] [id number] PCP - General Adolescent Medicine 03/03/22 documented as of this encounter
--- OUTSIDE RECORDS SUMMARY | 2024-08-17 15:55 | XMS_ITS | Encounter Summary ---
Author Organization [facility] Address [address] [place] [address] Care Team Providers Care Mine Surveyor Name Role Phone Herbert Hair MD Primary Care Provider [phone] Reason for Referral * Diagnostic Imaging (Routine) - Closed Specialty Diagnoses / Procedures Referred By Nasrin hernandez Referred To Contact Radiology Diagnoses Malignant neoplasm of left breast in female, estrogen receptor positive, unspecified site of breast Procedures NM Pet Skull Base To Mid Thigh Bre Crenshaw MD [address] [address] Phone: tel: fax: [address] [address] Phone: tel: Referral ID Status Reason Start Date Expiration Date Visits Re quested Visits Authorized [id number] Closed 05/24/2022 06/27/2022 2 2 Encounter Details Date Type Department Care Team (Late st Contact Info) Description 05/24/2022 4:00 PM EDT Consult [facility] HEMATOLOGY & ONCOLOGY [address] [phone] Bre Crenshaw MD [address] [address] Malignant neoplasm of left breast in female, estrogen receptor positive, unspecified site of breast (Primary Dx) Social History Tobacco Use Types [...] of Binge Drinking Not on file 11/02 PHQ-2 Answer Date Recorded Retired PHQ-9: Brief Depression Severity Measure Score 0 05/24/2022 Comments No Sex and Gender Information Value Date Recorded Sex Assigned at Not on file Legal Sex Female 10:43 AM EDT Gender Identity Not on file Sexual Orientation Not on file documented as of this encounter Last Filed Vital Signs Vital Sign Reading Time Taken Comments Blood Pressure 169/96 05/24/2022 4:59 PM EDT Pulse 76 05/24/2022 4:59 PM EDT Temperature 36.4 ??C (97.6 ??F) 05/24/2022 4:59 PM ED T Respiratory Rate 16 05/24/2022 4:59 PM EDT Oxygen Saturation 97% 05/24/2022 4:59 PM EDT Inhaled Oxygen Concentration - - Weight 91.6 kg (202 lb) 05/24/2022 4:59 PM EDT Height 157.5 cm (5' 2 ) 05/24/2022 4:59 PM EDT Body Mass Index 36.95 05/24/2022 4:59 PM EDT documented in this encounter Progress Notes * Bre Crenshaw MD - 05/24/2022 4:00 PM EDT Subjective PROBLEM LIST: 1. [id number] ER+ (90%) AL+(10%) Her2 negative (1+) invasive ductal carcinoma of the left breast A) breast biopsy of 2.1 cm mass and lymph node FNA on 05/05/22 showed invasive ductal carcinoma. At least 2 suspicious lymph nodes on imaging 2. Hypertension 3. Hypothyroidism 4. GERD CHIEF COMPLAINT: breast cancer HISTORY OF PRESENT ILLNESS: The patient is a 47 y.o. female, referred for evaluation of a recently diagnosed breast cancer. She has not noticed any changes in her breast. She says that she always gets her mammograms but skipped last year. She went in January for her screening exam and was called back for diagnostic study. She met with Dr. Bell earlier today. She says that she wants a bilateral mastectomy with reconstruction. Her daughter is getting on June 24 so she is hopes to have surgery done a few weeks before that. She had an endometrial ablation in 2013 and has not had any menstrual bleeding since then. She has some ovarian cysts and occasional pelvic pain. She reports some sweats at night and occasional hot flashes. She is accompanied by her 2 daughters today. She is and lives with her . 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 REVIEW OF SYSTEMS: A 14 point review of systems was performed and is negative except as noted above. Past Medical History: Diagnosis Date ??? Acid reflux ??? Hypertension ??? Hypothyroidism ??? Malignant neoplasm of left breast in female, estrogen receptor positive (HCC) 05/24/2022 ??? Screening breast examination denies ??? Screening breast examination denies Objective BP 169/96 Pulse 76 Temp 97.6 ??F (36.4 ??C) Resp 16 Ht 157.5 cm (62 ) Wt 91.6 kg (202 lb) SpO2 97% BMI 36.95 kg/m?? Performance Status: ECOG score: 0 General: well appearing female in no acute distress Neuro: alert and oriented HEENT: sclerae anicteric, oropharynx clear Skin: no rashes, lesions, bruising, or petechiae Psych: mood and affect appropriate No results found for: WBC, HGB, HCT, MCV, PLT No results found for: GLUCOSE, BUN, CREATININE, EGFRIFNONA, EGFRIFAFRI, BCR, K, CO2, CALCIUM, PROTENTOTREF, ALBUMIN, LABIL2, BILIRUBIN, AST, ALT Mammo Post Clip Placement Left, US Guided Breast Biopsy With & Without Device initial, US Fine Needle Aspiration BX 1st Lesion 12-gauge marquee ULTRASOUND GUIDED CORE BIOPSY History: 2 cm left breast mass 4:00 Procedure: Written and verbal consent was obtained for ultrasound guided core biopsy of a 2 cm left breast mass located 4. Time out was observed to verify the patient's identity and correct location of the breast abnormality. The presence of the lesion was confirmed ultrasound and a lateral approach was chosen. The breast was prepped and draped in the usual sterile fashion and 5 cc of1% lidocaine with and without epinephrine was utilized for local anesthesia. A small skin incision was made with a scalpel and a 12gauge needle was introduced into the breast under direct sonographic guidance. The needle was placed into to the mass. A total of 5 core samples were obtained. The specimens were placed in formalin and forwarded to the pathology department. A post biopsy marking clip was placed. Post biopsy mammographic images were obtained. Upon completion of the procedure, compression was applied to the biopsy site until all appreciable bleeding subsided and a sterile dressing was applied. Post biopsy instructions were reviewed with the patient by our clinical breast imaging staff. A written copy of these instructions was also given to the patient. The patient tolerated the procedure well and no immediate complications occurred. SUMMARY: 12-gauge ultrasound guided core biopsy of a 2 cm left breast mass located 4:00. A post biopsy marking clip was placed. Pathology results are pending. Pathology: Invasive ductal carcinoma. Estrogen receptor positive progesterone receptor positive HER-2/margie negative. Result is concordant. Recommendation: Surgical consult and breast MRI to evaluate extent of disease in the left breast and to screen the contralateral right breast FINE NEEDLE ASPIRATION: LEFT axillary lymph node HISTORY: 1.9 cm enlarged left axillary lymph node with nodular cortical thickening PROCEDURE: After obtaining informed consent and performing time out the left axilla was prepped and draped in usual sterile fashion. 1 cc of 1% lidocaine without epinephrine was utilized for local anesthesia. 3passes were made with a 22-gauge needle attached to a locking syringe. . 3 passes were sent for cytology. A marking clip was placed for future localization The patient tolerated the procedure well and there were no immediate complications. Postprocedure mammogram demonstrated accurate clip placed SUMMARY: Successful fine-needle aspiration of a prominent lymph node in the left axilla. Cytology: Metastatic adenocarcinoma consistent with mammary primary. Result is concordant. Recommendation: Surgical consult and breast MRI to evaluate extent of disease in the left breast and to screen the contralateral right breast. The patient has a subtle area of architectural distortion in the lateral right breast that will need affirm guided tomographic biopsy if more suspicious findings are not identified on breast MRI This report was finalized on 05/09/2022 3:[address] Lien Phan MD. ASSESSMENT AND PLAN: Leydi Brown is a 47 y.o. female with a T2N1 ER positive HER2 negative invasive ductal carcinoma of the left breast. Given her maria a involvement we will order a PET scan for staging. Assuming that her scans do not show evidence of distant metastatic disease, I would recommend that she proceed with surgery. As she is premenopausal with node involvement, I will likely recommend chemotherapy. The exact chemotherapy choice will likely depend on the final results of surgery and how many lymph nodes are involved. After surgery and chemotherapy she is a candidate for adjuvant radiotherapy as well as endocrine therapy, potentially with the addition of abemaciclib. I will contact her with staging scan results when available. A total greater than 60 mins minutes was spent in face to face patient time, examination, counseling, charting, reviewing test results, and reviewing outside records. Bre Crenshaw MD 05/24/2022 documented in this encounter Plan of Treatment Upcoming Encounters Date Type Department Care Team (Late st Contact Info) Description 09/18/2024 3:30 PM EST Office Visit [facility] HEMATOLOGY & ONCOLOGY [address] [facility] [address] [place] [address] Bre Crenshaw MD [address] [facility] [address] [place] [address] 12/31/2024 9:00 AM EDT Office Visit [facility] UROLOGY [address] [facility] [address] [place] [address] Oralia Saha APRN [address] [address] 05/12/2025 1:45 PM EDT Office Visit [facility] CARDIOLOGY [address] [facility] [address] [address] [place] [phone] Obed Woodard MD [address] [place] [address] documented as of this encounter Procedures Procedure Name Priority Date/Time Associated Diagnosis Comments CBC WITH AUTO DIFFERENTIAL Routine 07/11/2022 11:29 AM EDT Malignant neoplasm of left breast in female, estrogen receptor positive, unspecified site of breast CBC AND DIFFERENTIAL Routine 07/11/2022 11:29 AM EDT Malignant neoplasm of left breast in female, estrogen receptor positive, unspecified site of breast documented in this encounter Results * (ABNORMAL) CBC Auto Differential (07/11/2022 11:29 AM EDT) WBC 6.72 3.40 - 10.80 10*3/mm3 07/11/2022 11:33 AM EDT [facility] RBC 4.60 3.77 - 5.28 10*6/mm3 07/11/2022 11:33 AM EDT [facility] Hemoglobin 14.6 12.0 - 15.9 g/dL 07/11/2022 11:33 AM EDT [facility] Hematocrit 42.7 34.0 - 46.6 % 07/11/2022 11:33 AM EDT [facility] MCV 92.8 79.0 - 97.0 fL 07/11/2022 11:33 AM EDT [facility] MCH 31.7 26.6 - 33.0 pg 07/11/2022 11:33 AM EDT [facility] MCHC 34.2 31.5 - 35.7 g/dL 07/11/2022 11:33 AM EDT [facility] RDW 12.1(L) 12.3 - 15.4 % 07/11/2022 11:33 AM EDT [facility] RDW-SD 41.7 37.0 - 54.0 fl 07/11[facility]2022 11[facility] MPV 10.0 6.0 - 12.0 fL 07/11/2022 11:33 [facility] Platelets 317 140 - 450 10*3/mm3 07/11/2022 11:33 AM [facility] Neutrophil % 48.6 42.7 - 76.0 % 07/11/2022 11:33 [facility] Lymphocyte % 40.5 19.6 - 45.3 % 07/11/2022 11:33 AM [facility] Monocyte % 7.4 5.0 - 12.0 % 07/11/2022 11:33 AM [facility] Eosinophil % 3.0 0.3 - 6.2 % 07/11/2022 11:33 AM [facility] Basophil % 0.4 0.0 - 1.5 % 07/11/2022 11:33 AM [facility] Immature Grans % 0.1 0.0 - 0.5 % 07/11/2022 11:33 AM [facility] Neutrophils, Absolute 3.26 1.70 - 7.00 10*3/mm3 07/11/2022 11:33 AM [facility] Lymphocytes, Absolute 2.72 0.70 - 3.10 10*3/mm3 07/11/2022 11:33 AM [facility] Monocytes, Absolute 0.50 0.10 - 0.90 10*3/mm3 07/11/2022 11:33 AM [facility] Eosinophils, Absolute 0.20 0.00 - 0.40 10*3/mm3 07/11/2022 11:33 AM [facility] Basophils, Absolute 0.03 0.00 - 0.20 10*3/mm3 07/11/2022 11:33 AM [facility] Immature Grans, Absolute 0.01 0.00 - 0.05 10*3/mm3 07/11/2022 11:33 AM EDT [facility] Blood Venipuncture / Unknown 07/11/2022 11:29 AM EDT 07/11/2022 11:29 AM EDT Bre Crenshaw MD LAB BLOOD ORDERABLES Final Resul t Performing Organization Address City/[facility]/ZIP Co de Phone Number [facility]
[address] [place] [address], * Follicle Stimulating Hormone (07/11/2022 11:29 AM EDT) FSH 38.30 mIU/mL 07/11/2022 8:42 PM EDT [facility] Blood Venipuncture / Unknown 07/11/2022 11:29 AM EDT 07/11/2022 11:29 AM EDT Narrative [facility] - 07/11/2022 8:42 PM EDT FSH Reference Ranges: Adult Males: ??1.5-12.4 mIU/mL Adult Females: Folicular Phase ??3.5-12.5 mIU/ml Ovulation Phase ??4.7-21.5 mIU/ml Lutal Phase ?1.7-7.7 mIU/ml Postmenopausal ?? 25.8-134.8 mIU/ml Results may be falsely decreased if patient taking Biotin. Bre Crenshaw MD LAB BLOOD ORDERABLES Final Resul t [facility]
[address] [place] [address], [place] [phone] * Estradiol (07/11/2022 11:29 AM EDT) Estradiol 10.6 pg/mL 07/11/2022 8:42 PM EDT [facility] Blood Venipuncture / Unknown 07/11/2022 11:29 AM EDT 07/11/2022 11:29 AM EDT Narrative [facility] - 07/11/2022 8:42 PM EDT Estradiol [...] MD LAB BLOOD ORDERABLES Final Resul t [facility]
[address] [place] [address], * (ABNORMAL) Comprehensive Metabolic Panel (07/11/2022 11:29 AM EDT) Pathologist [facility] Glucose 102(H) 65 - 99 mg/dL 07/11/2022 2:08 PM EDT [facility] BUN 13 6 - 20 mg/dL 07/11/2022 2:08 PM EDT [facility] Creatinine 0.89 0.57 - 1.00 mg/dL 07/11/2022 2:08 PM EDT [facility] Sodium 142 136 - 145 mmol/L 07/11/2022 2:08 PM EDT [facility] Potassium 3.3(L) 3.5 - 5.2 mmol/L 07/11/2022 2:08 PM T [facility] Comment:Slight hemolysis det ected by analyzer. Results may be affected. Chloride 102 98 - 107 mmol/L 07/11/2022 2:08 PM T [facility] CO2 28.0 22.0 - 29.0 mmol/L 07/11/2022 2:08 PM T [facility] Calcium 9.3 8.6 - 10.5 mg/dL 07/11/2022 2:08 PM T [facility] Total Protein 7.3 6.0 - 8.5 g/dL 07/11/2022 2:08 PM [facility] Albumin 4.30 3.50 - 5.20 g/dL 07/11/2022 2:08 PM [facility] ALT (SGPT) 22 1 - 33 U/L 07/11/2022 2:08 PM [facility] AST (SGOT) 16 1 - 32 U/L 07/11/2022 2:08 PM T [facility] Alkaline Phosphatase 67 39 - 117 U/L 07/11/2022 2:08 PM [facility] Total Bilirubin 0.4 0.0 - 1.2 mg/dL 07/11/2022 2:08 PM [facility] Globulin 3.0 gm/dL 07/11/2022 2:08 PM T [facility] Comment:Calculated Result A/G Ratio 1.4 g/dL 07/11/2022 2:08 PM [facility] BUN/Creatinine Ratio 14.6 7.0 - 25.0 07/11/2022 2:08 PM [facility] Anion Gap 12.0 5.0 - 15.0 mmol/L 07/11/2022 2:08 PM [facility] eGFR 80.1 >60.0 mL/min/1. 73 07/11/2022 2:08 PM T [facility] Comment:National Kidney Foun dation and [place] Society of Nephrology (ASN) Task Force recommended calculation based on the Chronic Kidney Disease Epidemiology Collaboration (CKD-EPI) equation refit without adjustment for race. Blood Venipuncture / Unknown 07/11/2022 11:29 AM EDT 07/11/2022 11:29 AM EDT Narrative [facility] - 07/11/2022 2:08 PM EDT GFR Normal >60 Chronic Kidney Disease <60 Kidney Failure <15 Bre Crenshaw MD LAB BLOOD ORDERABLES Final Resul t [facility]
[address] [place] [address], * NM PET/CT Skull Base to Mid Thigh (05/30/2022 3:26 PM EDT) Anatomical Region Laterality Modality Head and Neck, Spine, Abdome n, Chest, Pelvis, Lower Leg, Thigh N/A Nuclear Medicine 05/30/2022 4:34 PM EDT Impressions 05/30/2022 4:45 PM EDT 1. ??FDG avid left breast mass with left axillary lymphadenopathy, compatible with known malignancy identified on recent prior mammographic workup. 2. ??No evidence to suggest metastasis outside of the chest. This report was finalized on 05/30/2022 4:45 PM by Aman Weiss MD. Narrative 05/30/2022 4:45 PM EDT NM PET/CT SKULL BASE TO MID THIGH- Date of Exam: 05/30/2022 2:15 PM Indication: breast cancer; C50.912-Malignant neoplasm of unspecified site of left female breast; Z17.0-Estrogen receptor positive status (ER+). Comparison Exams: Mammographic workup from earlier this month Technique: Whole body PET/CT imaging was performed with positron emission tomography (PET with concurrently acquired computed tomography (CT) for attenuation correction and anatomical localization); field of view imaged was the skull base to midthigh. Images were obtained after one hour of equilibrium. Blood glucose level: 89 mg/dL. FDG dosage: 11.3 mCi F-18. Automated exposure control and iterative reconstruction methods were used. FINDINGS: Head/neck: No abnormally enlarged or FDG avid lymph nodes are identified. No concerning soft tissue mass is identified. Chest: There is an FDG avid left breast mass with left axillary lymphadenopathy better characterized on recent prior mammographic workup. No abnormally enlarged or FDG avid mediastinal, hilar, or right axillary lymph nodes are identified. No discrete pulmonary nodule is identified. Abdomen/pelvis: No abnormally enlarged or FDG avid lymph nodes are identified. There is a bulky nodular uterus likely secondary to fibroids. Bones: No aggressive appearing or FDG avid osseous lesions are identified. Procedure Note Aman Weiss MD - 05/30/2022 NM PET/CT SKULL BASE TO MID THIGH- Date of Exam: 05/30/2022 2:15 PM Indication: breast cancer; C50.912-Malignant neoplasm of unspecified site of left female breast; Z17.0-Estrogen receptor positive status (ER+). Comparison Exams: Mammographic workup from earlier this month Technique: Whole body PET/CT imaging was performed with positron emission tomography (PET with concurrently acquired computed tomography (CT) for attenuation correction and anatomical localization); field of view imaged was the skull base to midthigh. Images were obtained after one hour of equilibrium. Blood glucose level: 89 mg/dL. FDG dosage: 11.3 mCi F-18. Automated exposure control and iterative reconstruction methods were used. FINDINGS: Head/neck: No abnormally enlarged or FDG avid lymph nodes are identified. No concerning soft tissue mass is identified. Chest: There is an FDG avid left breast mass with left axillary lymphadenopathy better characterized on recent prior mammographic workup. No abnormally enlarged or FDG avid mediastinal, hilar, or right axillary lymph nodes are identified. No discrete pulmonary nodule is identified. Abdomen/pelvis: No abnormally enlarged or FDG avid lymph nodes are identified. There is a bulky nodular uterus likely secondary to fibroids. Bones: No aggressive appearing or FDG avid osseous lesions are identified. IMPRESSION: 1. FDG avid left breast mass with left axillary lymphadenopathy, compatible with known malignancy identified on recent prior mammographic workup. 2. No evidence to suggest metastasis outside of the chest. This report was finalized on 05/30/2022 4:45 PM by Aman Weiss MD. Bre Crenshaw MD [facility] [place] ORDERABLES Final Result documented in this encounter Visit Diagnoses Diagnosis Malignant neoplasm of left breast in female, estrogen receptor positive, unspecified site of breast- Primary Malignant neoplasm of left breast in female, estrogen receptor positive, unspecified site of breast documented in this encounter Care Teams Mine Surveyor Relationship Specialty Start Date End Date Herbert Hair MD [address] [place] [facility] [address] [place] [address] PCP - General Adolescent Medicine 03/03/22 documented as of this encounter
--- OUTSIDE RECORDS SUMMARY | 2024-08-17 15:55 | XMS_ITS | Encounter Summary ---
Author Organization [facility] Address [address] [place] [address] Care Team Providers Care Freight Representative Name Role Phone Herbert Hair MD Primary Care Provider [phone] Reason for Referral * Diagnostic Imaging (Routine) - Closed Specialty Diagnoses / Procedures Referred By Nasrin hernandez Referred To Contact Radiology Diagnoses Abnormal mammogram Procedures Mammo Diagnostic Digital Tomosynthesis Bilateral With CAD Haleigh Khanna MD [address] [address] Phone: tel: fax: Referral ID Status Reason Start Date Expiration Date Visits Re quested Visits Authorized [id number] Closed 03/08/2022 03/08/2023 1 1 Reason for Visit * Diagnostic Imaging (Routine) - Closed Specialty Diagnoses / Procedures Referred By Nasrin hernandez Referred To Contact Radiology Diagnoses Abnormal mammogram Procedures Mammo Diagnostic Digital Tomosynthesis Bilateral With Haleigh Nunes MD [address] [address] Phone: tel: fax: Referral ID Status Reason Start Date Expiration Date Visits Re quested Visits Authorized [id number] Closed 03/08/2022 03/08/2023 1 1 Encounter Details Date Type Department Care Team (Latest Contact Info) Description 05/05/2022 7:59 AM EDT - 05/05/2022 11:59 PM EDT Hospital Encounter [facility] [address] [facility] [address] [place] [address] Abnormal mammogram Discharge Disposition: Home or Self Care Social [...] this encounter Medications at Time of Discharge busPIRone (BUSPAR) 15 MG tablet Take 15 mg by mouth 3 (Three) Times a Day. 2 butalbital-aceta minophen-caffein e (ORBIVAN) 50-300-40 MG capsule capsule TAKE 1 CAPSULE BY MOUTH EVERY 4 HOURS NEEDED FOR MIGRAINES 01/02/2022 2 cholecalciferol (VITAMIN D3) 25 MCG (1000 UT) tablet Take 2,000 Units by mouth Daily. 2 Dexilant 60 MG capsule Take 60 mg by mouth Every Morning. 11/01/2021 3 fluconazole (Diflucan) 150 MG tablet 1 po now and repeat in 3 days 2 tablet 02/01/2022 2 levothyroxine (SYNTHROID, LEVOTHROID) 25 MCG tablet Take 1 tablet by mouth Daily. 3 telmisartan-hydr ochlorothiazide (MICARDIS HCT) 40-12.5 MG [...] [facility] [address] [facility] [address] [place] [id number] Bre Crenshaw MD [address] [facility] [address] [place] [address] 12/31/2024 9:00 AM EDT Office Visit [facility] [address] [facility] [address] [place] [address] Oralia Saha APRN [address] [facility] [address] [place], [place] [id number] 05/12/2025 1:45 PM EDT Office Visit [facility] [address] [facility] [address] [place] [address] Obed Woodard MD [address] [facility] [address] [place] [address] documented as of this encounter Procedures Procedure Name Priority Date/Time Associated Diagnosis Comments MAMMO DIAGNOSTIC DIGITAL TOMOSYNTHESIS BILATERAL W CAD Routine 05/05/2022 8:59 AM EDT Abnormal mammogram documented in this encounter Results * (ABNORMAL) Mammo Diagnostic Digital Tomosynthesis Bilateral [...] disease the largest which measures 1.9 cm us Madison Dolan MD IMG MAMMOGRAPHY ORDERABLES Fin al Result documented in this encounter Visit Diagnoses Diagnosis Abnormal mammogram Abnormal mammogram, unspecified documented in this encounter Care Teams Freight Representative Relationship Specialty Start Date End Date Herbert Hair MD [address] [place] [address] [address] PCP - General Adolescent Medicine 03/03/22 documented as of this encounter
--- OUTSIDE RECORDS SUMMARY | 2024-08-17 15:55 | XMS_ITS | Encounter Summary ---
Author Organization [facility] Address [address] [place] [address] Care Team Providers Care Studio Technician Video Operator Name Role Phone Herbert Hair MD Primary Care Provider + [phone] Reason for Visit * Diagnostic Imaging (Routine) - Closed Specialty Diagnoses / Procedures Referred By Nasrin hernandez Referred To Contact Radiology Diagnoses Abnormal mammogram Procedures US Fine Needle Aspiration BX 1ST Lesion US Guided Breast Biopsy With & Without Device Each Additional Haleigh Khanna MD [address] [facility] [address] [place] [address] Phone: tel: fax: Referral ID Status Reason Start Date Expiration Date Visits Re quested Visits Authorized [id number] Closed 05/05/2022 05/05/2023 1 1 Encounter Details Date Type Department Care Team (Latest Contact Info) Description 05/05/2022 10:43 AM EDT - 05/05/2022 11:59 PM EDT Hospital Encounter [facility] [address] [place] [phone] Abnormal mammogram Discharge Disposition: Home or Self [...] as of this encounter Progress Notes * Mimi Gonzalez RN - 05/05/2022 10:45 AM EDT Alert and orientated. Denies discomfort. No active bleeding. Steri-strips visualized, gauze dressing reinforced. Band-aid in place. Ice packs given. Verbalizes and demonstrates understanding of post-care instructions, written copy given. documented in this encounter Plan of Treatment Upcoming Encounters Date Type Department Care Team (Late st Contact Info) Description 09/18/2024 3:30 PM EST Office Visit [facility] HEMATOLOGY & ONCOLOGY [address] [facility] [address] [place] [address] Bre Crenshaw MD [address] [facility] [address] [place] [address] 12/31/2024 9:00 AM EDT Office Visit [facility] UROLOGY [address] [facility] [address] [place], [place] [phone] Oralia Saha APRN [address] [facility] [address] [place], [place] [phone] 05/12/2025 1:45 PM EDT Office Visit [facility] CARDIOLOGY [address] [facility] [address] [place] [address] Obed Woodard MD [address] [facility] [address] [place], [place] [id number] documented as of this encounter Procedures Procedure Name Priority Date/Time Associated Diagnosis Comments US FINE NEEDLE ASPIRATION BX 1ST LESION Routine 05/05/2022 12:02 PM EDT Abnormal mammogram [facility] ([place] [place], [place], [place]) Routine 05/05/2022 12:01 PM EDT documented in this encounter Results * US Fine Needle Aspiration BX 1st Lesion (05/05/2022 12:02 PM EDT) Anatomical Region Laterality Modality Ultrasound 05/09/2022 3:29 PM EDT Narrative 05/09/2022 3:30 PM EDT 12-gauge marquee ULTRASOUND GUIDED CORE BIOPSY History: 2 cm left breast mass 4:00 Procedure: Written and verbal consent was obtained for ultrasound guided core biopsy of a 2 cm left breast mass located 4. ?? Time out was observed to verify the [...] with a scalpel and a 12gauge needle ??was introduced into the breast under direct sonographic [...] 2 cm left breast mass located 4:00. ??A post biopsy marking clip was placed. Pathology [...] 3:[address] Lien Phan MD. us Lien Phan MD IMG US ORDERABLES Final Res ult * NON-[facility]) (05/05/2022 12:01 PM EDT) Reference Lab Report [facility] [address] ?[place], [place] ??[address] or [phone] Heladio Daly M.D., Grip Wrapper PATIENT NAME ? LABORATORY NO. [id number] ?? AUGUSTINE NAVAS. ?[id number] ? AGE ?SEX ? SSN ?CLIENT REF # [facility] ? 47 ? 1975 ?? F ? [id number] ?[id number] [address] [facility] ?REQUESTING M.D. ? ATTENDING M.D.. ?[place] [address] ?LIEN PHAN DATE COLLECTED ?DATE RECEIVED ?DATE REPORTED 05/05/2022 ?05/05/2022 ? 05/09/2022 DIAGNOSIS: LYMPH NODE, FNA: Metastatic adenocarcinoma compatible with mammary primary, see comment [facility] MICROSCOPIC DESCRIPTION: Tissue blocks are prepared and slides are examined microscopically on all specimens. See diagnosis for details. Professional interpretation rendered by Hayley Guillermo D.O. at [facility], [address] [place] [address]. COMMENT: Immunohistochemica l evaluation was undertaken, showing malignant cells infiltrating a lymphoid background that are positive for cytokeratin 7 and GATA3, supporting the given diagnosis. CLINICAL HISTORY: abnormal mammogram SPECIMENS SUBMITTED: LYMPH NODE, FNA GROSS SPECIMEN DESCRIPTION: 27CC COLORLESS FLUID WITH SCANT SEDIMENT IN FIXATIVE Cell block has been examined. REVIEWED, DIAGNOSED AND ELECTRONICALLY SIGNED BY: Hayley Guillermo D.O. CPT CODES: ??[id number], [id number], [id number], [id number] 05/09/2022 2:57 PM EDT [facility] Body Fluid Collection / Unknown 05/05/2022 12:01 PM EDT 05/05/2022 12:21 PM EDT Lien Phan MD PATHOLOGY/CYTOLOGY ORDERABL ES Final Result [facility]
[address] [place] [address], documented in this encounter Visit Diagnoses Diagnosis Abnormal mammogram Abnormal mammogram, unspecified documented in this encounter Administered Medications Inactive Administered Medications - up to 3 most recent administrations Medication Order MAR Action Action Date Dose Rate Site lidocaine (XYLOCAINE) 1 % injection 5 mL 5 mL, Injection, Once, On Sun05/05/22 at 1202, For 1 dose Given 05/05/2022 12:00 PM EDT 1 mL documented in this encounter Care Teams Studio Technician Video Operator Relationship Specialty Start Date End Date Herbert Hair MD [address] [place] [address] [place] [address] PCP - General Adolescent Medicine 03/03/22 documented as of this encounter
--- OUTSIDE RECORDS SUMMARY | 2024-08-17 15:55 | XMS_ITS | Encounter Summary ---
Author Organization [facility] Address [address] [place] [address] Care Team Providers Care Horticultural Specialty Grower Field Name Role Phone Herbert Hair MD Primary Care Provider + [phone] Encounter Details Date Type Department Care Team (Late st Contact Info) Description 06/09/2022 12:15 PM EDT Pre-Admission Testing [facility] T [address] [place] [phone] Social History Tobacco Use Types Packs/Day Years [...] - Inhaled Oxygen Concentration - - Weight 90.5 kg (199 lb 6.5 oz) 06/09/2022 12:26 PM EDT Height 154.9 cm (5' 1 ) 06/09/2022 12:26 PM EDT Body Mass Index 37.68 06/09/2022 12:26 PM EDT documented in this encounter OR Notes * LEDA - Susannah Patten RN - 06/09/2022 12:15 PM EDT Patient viewed general PAT education video as instructed in their preoperative information receivedfrom their surgeon. Patient stated the general PAT education video was viewed in its entirety and survey completed. Copies of PAT general education handouts (Incentive Spirometry, Meds to Beds Program, Patient Belongings, Pre-op skin preparation instructions, Blood Glucose testing, Visitor policy, Surgery FAQ, Code H) distributed to patient if not printed. Education related to the PAT pass and skin preparation for surgery (if applicable) completed in PAT as a reinforcement to PAT education video. Patient instructed to return PAT pass provided today as well as completed skin preparation sheet ( if applicable) on the day of procedure. Additionally if patient had not viewed video yet but intended to view it at home or in our waiting area, then referred them to the handout with QR code/link provided during PAT visit. Instructed patient to complete survey after viewing the video in its entirety. Encouraged patient/family to read PAT general education handouts thoroughly and notify PAT staff with any questions or concerns. Patientverbalized understanding of all information and priority content. Patient instructed to drink 20 ounces of Gatorade and it needs to be completed 1 hour (for Main OR patients) or 2 hours (scheduled section & [facility] patients) before given arrival time for procedure (NO RED Gatorade) Patient verbalized understanding. Patient to apply Chlorhexadine wipes to surgical area (as instructed) the night before procedure and the AM of procedure. Wipes provided. Per Anesthesia Request, patient instructed not to take their CAMILO/ARB medications on the AM of surgery. An arrival time for procedure was not [...] Department. Patient denies any current skin issues. documented in this encounter Plan of Treatment Upcoming Encounters Date Type Department Care Team (Late st Contact Info) Description 09/18/2024 3:30 PM EST Office Visit [facility] HEMATOLOGY & ONCOLOGY [address] [facility] [address] [place] [phone] Bre Crenshaw MD [address] [facility] [address] [place] [address] 12/31/2024 9:00 AM EDT Office Visit [facility] UROLOGY [address] [facility] [address] [place] [address] Oralia Saha APRN [address] [facility] [address] [place] [address] 05/12/2025 1:45 PM EDT Office Visit [facility] CARDIOLOGY [address] [facility] [address] [place] [phone] Obed Woodard MD [address] [facility] [address] [place], [place] [phone] documented as of this encounter Procedures Procedure Name Priority Date/Time Associated Diagnosis Comments ECG 12-LEAD Routine 06/09/2022 12:27 PM EDT CBC (NO DIFF) Routine 06/09/2022 12:11 PM EDT HEMOGLOBIN A1C Routine 06/09/2022 12:11 PM EDT COMPREHENSIVE METABOLIC PANEL Routine 06/09/2022 12:11 PM EDT documented in this encounter Results * ECG 12 Lead (06/09/2022 12:27 PM EDT) QT Interval 400 ms ECG QTC Interval 434 ms ECG 06/09/2022 12:2 7 PM EDT 06/09/2022 12:43 PM EDT Narrative ECG - 06/09/2022 12:43 PM EDT Test Reason : HTN Blood Pressure : ?? */* ?? mmHG Vent. Rate : ??71 BPM ? Atrial Rate : ??71 BPM ?? P-R Int : 144 ms ?QRS Dur : ??80 ms ?QT Int : 400 ms ? P-R-T Axes : ??31 ??-1 ??-2 degrees ?? QTc Int : 434 ms Normal sinus rhythm with sinus arrhythmia Normal ECG No previous ECGs available Confirmed by ASHISH CARVER ([id number]) on 06/09/2022 12:43:39 PM Referred By: JEISON COVARRUBIAS ? Confirmed By: ASHISH CARVER Procedure Note Ashish Carver MD - 06/09/2022 Test Reason : HTN Blood Pressure : */* mmHG Vent. Rate : 71 BPM Atrial Rate : 71 BPM P-R Int : 144 ms QRS Dur : 80 ms QT Int : 400 ms P-R-T Axes : 31 -1 -2 degrees QTc Int : 434 ms Normal sinus rhythm with sinus arrhythmia Normal ECG No previous ECGs available Confirmed by ASHISH CARVER ([id number]) on 06/09/2022 12:43:39 PM Referred By: JEISON COVARRUBIAS Confirmed By: ASHISH CARVER us An Bell MD ECG ORDERABLES Final Res ult ECG * (ABNORMAL) Hemoglobin A1c (06/09/2022 12:11 PM EDT) Pathologist [facility] Hemoglobin A1C 5.70(H) 4.80 - 5.60 % 06/09/2022 12:59 PM EDT [facility] Blood Venipuncture / Unknown 06/09/2022 12:11 PM EDT 06/09/2022 12:35 PM EDT [facility] - 06/09/2022 12:59 PM EDT Hemoglobin A1C Ranges: Increased Risk for Diabetes ??5.7% to 6.4% Diabetes ? >= 6.5% Diabetic Goal ?< 7.0% us An Bell MD LAB BLOOD ORDERABLES Vanda bean Result [facility]
[address] [place] [address], * (ABNORMAL) Comprehensive Metabolic Panel (06/09/2022 12:11 PM EDT) Glucose 115(H) 65 - 99 mg/dL 06/09/2022 1:02 PM EDT [facility] BUN 11 6 - 20 mg/dL 06/09/2022 1:02 PM EDT [facility] Creatinine 0.86 0.57 - 1.00 mg/dL 06/09/2022 1:02 PM EDT [facility] Sodium 142 136 - 145 mmol/L 06/09/2022 1:02 PM EDT [facility] Potassium 3.5 3.5 - 5.2 mmol/L 06/09/2022 1:02 PM EDT [facility] Chloride 101 98 - 107 mmol/L 06/09/2022 1:02 PM EDT [facility] CO2 31.0(H) 22.0 - 29.0 mmol/L 06/09/2022 1:02 PM EDT [facility] Calcium 9.6 8.6 - 10.5 mg/dL 06/09/2022 1:02 PM EDT [facility] Total Protein 6.8 6.0 - 8.5 g/dL 06/09/2022 1:02 PM EDT [facility] Albumin 4.40 3.50 - 5.20 g/dL 06/09/2022 1:02 PM EDT [facility] ALT (SGPT) 12 1 - 33 U/L 06/09/2022 1:02 PM EDT [facility] AST (SGOT) 11 1 - 32 U/L 06/09/2022 1:02 PM EDT [facility] Alkaline Phosphatase 58 39 - 117 U/L 06/09/2022 1:02 PM EDT [facility] Total Bilirubin 0.3 0.0 - 1.2 mg/dL 06/09/2022 1:02 PM EDT [facility] Globulin 2.4 gm/dL 06/09/2022 1:02 PM [facility] Comment:Calculated Result A/G Ratio 1.8 g/dL 06/09/2022 1:02 PM EDT [facility] BUN/Creatinine Ratio 12.8 7.0 - 25.0 06/09/2022 1:02 PM T [facility] Anion Gap 10.0 5.0 - 15.0 mmol/L 06/09/2022 1:02 PM EDT [facility] eGFR 83.5 >60.0 mL/min/1. 73 06/09/2022 1:02 PM T [facility] Comment:National Kidney Foun dation and [place] Society of Nephrology (ASN) Task Force recommended calculation based on the Chronic Kidney Disease Epidemiology Collaboration (CKD-EPI) equation refit without adjustment for race. Blood Venipuncture / Unknown 06/09/2022 12:11 PM EDT 06/09/2022 12:35 PM EDT [facility] - 06/09/2022 1:02 PM EDT GFR Normal >60 Chronic Kidney Disease <60 Kidney Failure <15 us An Bell MD LAB BLOOD ORDERABLES Vanda geneva Result [facility]
[address] [place] [address], * CBC (No Diff) (06/09/2022 12:11 PM EDT) WBC 6.60 3.40 - 10.80 10*3/mm3 06/09/2022 12:41 PM EDT [facility] RBC 4.62 3.77 - 5.28 10*6/mm3 06/09/2022 12:41 PM EDT [facility] Hemoglobin 14.6 12.0 - 15.9 g/dL 06/09/2022 12:41 PM EDT [facility] Hematocrit 41.2 34.0 - 46.6 % 06/09/2022 12:41 PM EDT [facility] MCV 89.2 79.0 - 97.0 fL 06/09/2022 12:41 PM EDT [facility] MCH 31.6 26.6 - 33.0 pg 06/09/2022 12:41 PM EDT [facility] MCHC 35.4 31.5 - 35.7 g/dL 06/09/2022 12:41 PM EDT [facility] RDW 12.4 12.3 - 15.4 % 06/09/2022 12:41 PM EDT [facility] RDW-SD 39.9 37.0 - 54.0 fl 06/09/2022 12:41 PM EDT [facility] MPV 10.8 6.0 - 12.0 fL 06/09/2022 12:41 PM EDT [facility] Platelets 310 140 - 450 10*3/mm3 06/09/2022 12:41 PM EDT [facility] Blood Venipuncture / Unknown 06/09/2022 12:11 PM EDT 06/09/2022 12:35 PM EDT us An Bell MD LAB BLOOD ORDERABLES Vanda bean Result [facility]
[address] [place] [address], documented in this encounter Visit Diagnoses Not on filedocumented in this encounter Care Teams Horticultural Specialty Grower Field Relationship Specialty Start Date End Date Herbert Hair MD [facility] [address] [facility] [address] [place] [address] PCP - General Adolescent Medicine 03/03/22 documented as of this encounter
--- OUTSIDE RECORDS SUMMARY | 2024-08-17 15:55 | XMS_ITS | Encounter Summary ---
Author Organization [facility] Address [address] [place] [address] Care Team Providers Care Intensive Care Nurse Name Role Phone Herbert Hair MD Primary Care Provider [phone] Reason for Visit * Auth/Cert Specialty Diagnoses / Procedures Referred By Nasrin hernandez Referred To Contact Diagnoses Malignant neoplasm of lower-outer quadrant of left female breast . Procedures WV MASTECTOMY, SIMPLE, COMPLETE WV REMOVE ARMPITS LYMPH NODES COMPLT LEFT BREAST MASTECTOMY, LEFT AXILLARY NODE DISSECTION, PROPHYLATIC RIGHT MASTECTOMY Referral ID Status Reason Start Date Expiration Date Visits Re quested Visits Authorized [id number] 1 1 Encounter Details Date Type Department Care Team (Late st Contact Info) Description 06/13/2022 9:15 AM EDT - 06/13/2022 11:52 AM EDT Surgery [facility] OR [address] [place] [address] An Bell MD [address] [facility] [address] [place] [address] BREAST MASTECTOMY LEFT, AXILLARY NODE DISSECTION LEFT, PROPHYLATIC RIGHT MASTECTOMY Social History Tobacco Use Types Packs/Day Years [...] Sign Reading Time Taken Comments Blood Pressure 144/98 06/13/2022 7:46 AM EDT Pulse 67 06/13/2022 7:46 AM EDT Temperature 36.8 ??C (98.2 ??F) 06/13/2022 7:46 AM ED T Respiratory Rate 16 06/13/2022 7:46 AM EDT Oxygen Saturation 98% 06/13/2022 7:46 AM EDT Inhaled Oxygen Concentration - - Weight 90.3 kg (199 lb) 06/13/2022 7:46 AM EDT Height 154.9 cm (5' 1 ) 06/13/2022 7:46 AM EDT Body Mass Index 37.6 06/13/2022 7:46 AM EDT documented in this encounter Discharge Instructions * Attachments The following attachments cannot be sent through Care Everywhere. * Total or Modified Radical Mastectomy (Puerto Rican) * Total or Modified Radical Mastectomy Care After ([place]ican) * Bumpass Lymph Node Biopsy ([place]) * [place]umpass Lymph Node Biopsy Care After ([place]ican) * Surgical Drain Home Care ([place]erto [place]ican) * Form - Surgical Drain Record ([place]ican) * Prophylactic Mastectomy Information ([place]) documented in this encounter Medications at [...] 1 tablet by mouth Daily. 3 Vit-Fe Tokbaaj-QA-XBV ( VITAMIN/MIN +DHA PO) Take 1 tablet [...] 7:55 AM EDT Leydi Singh Coppage 1975 [id number] Surgery Progress Note Date of visit: 06/14/2022 [...] Bell MD - 06/13/2022 7:35 AM EDT [facility] Pre-op Full history and physical note [...] carcinoma (~10 mm in greatest measured dimension) Davey combined histologic grade 2 Tubule formation - 3 Nuclear pleomorphism - 2 Mitotic activity - 1 Estrogen receptor - Positive Progesterone receptor - Positive (low/weak) HER2/leti - Negative at 1021 Comment This report was sent to the radiologist at [facility] on 05/09/2022. Gross [...] II (T2, N1, M0) IDC left breast; ER/WV+ HER2- Plan: LEFT BREAST MASTECTOMY, LEFT AXILLARY NODE DISSECTION, PROPHYLATIC RIGHT MASTECTOMY Lyndsey Ag APRN 06/13/2022 07:35 EDT [facility] 12:00 AM EDT documented in this [...] 9:51 AM EDT Operative Note Leydi Brown [id number] 1975 Date of Surgery: 06/13/2022 Pre-Operative Diagnosis: Left breast cancer in the lower outer quadrant with axillary node metastases Post-Operative Diagnosis: Same Procedure: Left simple mastectomy Left axillary lymph node dissection Prophylactic right simple mastectomy Anesthesia: General Surgeon: An Bell MD Stereo Map Plotter Operator: Mikhail Manzo RN; Marly Scott RN Scrub Person: Denotn [employer] Regional Transportation Manager: Audrey Burris; Yohana Cavazos PCT Web Marketing Intern: Cherrie Spivey PA Web Marketing Intern: Cherrie Spivey PA Estimated Blood Loss: Very [...] with clear return of fluid noted. 15 Cymro round Valentin-Newberry drains were placed percutaneously on [...] correct at the end of the procedure. Web Marketing Intern: Cherrie Spivey PA was responsible for performing [...] Surgeon(s): An Bell MD Anesthesia: General Staff: Stereo Map Plotter Operator: Mikhail Manzo RN; Marly Scott RN Scrub Person: Denton [place] Regional Transportation Manager: Audrey Burris; Yohana Cavazos PCT Web Marketing Intern: Cherrie Spivey PA Web Marketing Intern: Cherrie Spivey PA Estimated Blood Loss: minimal [...] Clip appreciated in the nodes Complications: None Web Marketing Intern: Cherrie Spivey PA was responsible for performing the following activities: Retraction, Suction, Suturing, Closing andPlacing Dressing and their skilled assistance was necessary for the success of this case. An Bell MD Date: 06/13/2022 Time: 12:06 EDT documented in this encounter Plan of Treatment Upcoming Encounters Date Type Department Care Team (Late st Contact Info) Description 09/18/2024 3:30 PM EST Office Visit [facility] HEMATOLOGY & ONCOLOGY [address] [facility] [address] [place] [phone] Bre Crenshaw MD [address] [facility] [address] [place] [address] 12/31/2024 9:00 AM EDT Office Visit [facility] UROLOGY [address] [facility] [address] [place], [place] [address] Yifan OraliaDWAYNE [address] [facility] [address] [place], [place] [id number] 05/12/2025 1:45 PM EDT Office Visit [facility] CARDIOLOGY [address] [facility] [address] [place] [phone] Obed Woodard MD [address] [facility] [address] [place], [place] [id number] documented as of this encounter Procedures Procedure [...] Case Report Surgical Pathology Report ? Case: [id number] ? Authorizing Provider: ??An Bell MD ?? Collected: ? 06/13/2022 10:37 AM ? Ordering Location: ? EPISCOPALIAN Differential ?? Received: ?06/13/2022 11:11 AM ? OR ? Pathologist: ? Jordan Esqueda MD ? Specimens: ?? 1) - Breast, Right, stitch is lateral ? 2) - Breast, Left, suture is lateral ? 3) - Axilla, Left, Left axillary lymph node ? 06/14/2022 4:42 PM EDT [facility] Clinical Information Malignant neoplasm of lower-outer quadrant of left female breast 06/14/2022 4:42 PM EDT [facility] Final Diagnosis BREAST, RIGHT, SIMPLE MASTECTOMY: [...] 2 lymph nodes with metastatic ductal carcinoma (2/8) 06/14/2022 4:42 PM EDT [facility] Comment INVASIVE CARCINOMA OF THE BREAST [...] 25% 1+ (INTENSITY SCORE) 06/14/2022 4:42 PM EDT [facility] Gross Description 1. Breast, Right. Received [...] than 6 and less than 72 hours. Community Relations Assistant sections are submitted in 10 blocks as [...] than 6 and less than 72 hours. Community Relations Assistant sections are submitted as follows: 2 A- [...] nodes (4); 3B-2 bisected nodes, differentially inked; 2D-7K-vxvfcljz node; 3 E- 3F-bisected node. HDM 06/14/2022 4:42 PM EDT [facility] Microscopic Description The slides are reviewed and demonstrate histopathologic features supporting the above rendered diagnosis. 06/14/2022 4:42 PM EDT [facility] Tissue Right breast structure / Unknown 06/13/2022 10:37 AM EDT 06/13/2022 11:11 AM EDT Tissue specimen (specimen) Left breast structure / Unknown 06/13/2022 11:30 AM EDT 06/13/2022 12:13 PM EDT Tissue specimen (specimen) Structure of left axillary region / Unknown 06/13/2022 11:35 AM EDT 06/13/2022 12:18 PM EDT us An Bell MD PATHOLOGY/CYTOLOGY ORDERA BLES Final Result [facility]
[address] [place] [address], * POC Urine (06/13/2022 7:54 AM EDT) HCG, Urine, QL Negative Negative [facility] Lot Number [id number] [facility] Internal Positive Control Positive Positive, Passed [facility] Internal Negative Control Negative Negative, Passed [facility] Expiration Date 06-23 [facility] Urine 06/13/2022 7:54 AM EDT us An Bell MD POINT OF CARE TEST ORDERA BLES Final Result [facility]
[address] [id number], * POC Glucose Once (06/13/2022 7:18 AM EDT) Glucose 102 70 - 130 mg/dL 06/13/2022 7:20 AM EDT [facility] Comment:Meter: [id number] Op erator: [id number] Culp Michelle Blood 06/13/2022 7:18 AM EDT 06/13/2022 7:20 AM EDT us An Bell MD POINT OF CARE TEST ORDERA BLES Final Result [facility]
[address] [place] [address], * SCANNED - TELEMETRY (06/13/2022) [facility] Onbase ECG ORDERABLES Final Result documented in [...] use with Jeffrey's Wort. Avoid grapefruit juice. Given 06/13/2022 9:13 [...] 3:35 PM EDT 50 mL/hr 50 mL/hr sterile water irrigation solution As Needed, Starting on Sun06/13/22 at 0915 Given 06/13/2022 10:37 AM EDT 1,000 mL Breast Right Given 06/13/2022 9:15 AM EDT 1,000 mL documented in this encounter [...] Hilda Awan RN)0559 (Given - Provider: Hilda Awan RN) busPIRone (BUSPAR) tablet 15 mg 15 mg, Oral, Nightly, First dose on Sun06/13/22 at 2100, Caution: Look alike/sound alike drug alert. Take with food. Avoid grapefruit juice. 2110 (Given - Provider: Hilda Awan RN) ceFAZolin in dextrose (ANCEF) IVPB solution 2 [...] alike/sound alike drug alert, Indications: Surgical Prophylaxis 1855 (New Bag - Provider: Maxine Terrazas RN) 0237 (New Bag - Provider: Hilda Awan RN)0700 (Stopped - Provider: Ted Harris RN) famotidine (PEPCID) tablet 20 mg (COMPLETED) 20 mg, Oral, Once, On Sun06/13/22 at 0702, For 1 dose 721 (Given - Provider: Cindy Carr RN) levothyroxine (SYNTHROID, LEVOTHROID) tablet 25 mcg 25 mcg, Oral, Daily, First dose on Sun06/13/22 at 1212, Take on empty stomach. 164 (Hold - Provider: Maxine [place]razas RN - Reason: Other - Comment: pt arrived on floor 1530 - stated she taken this med early this morning) 821 (Given - Provider: Ted Harris RN) losartan (COZAAR) 50 mg, hydroCHLOROthiazide (HYDRODIURIL) 12.5 mg Oral, Nightly, First dose (after last modification) on Sun06/13/22 at 2100, Give both components for approved alternative 2112 (Not Given - Provider: Hilda Awan RN - Reason: Patient/family refused) meloxicam (MOBIC) tablet [...] 0722 (Given - Provider: Cindy Carr RN) meloxicam (MOBIC) tablet 15 mg 15 mg, [...] CPOT 5-8 0822 (Given - Provider: Ted Harris, HUMZA) midazolam (VERSED) injection 2 mg (COMPLETED) 2 mg, Intravenous, Once, On Sun06/13/22 at 1255, For 1 dose, {MARK} 1255 (Given - Provider: Alissa Crystal, HUMZA) pregabalin (LYRICA) capsule 75 mg (COMPLETED) 75 mg, Oral, Once, On Sun06/13/22 at 0702, For 1 dose, {MARK} 0722 (Given - Provider: Cindy Carr, HUMZA) propranolol (INDERAL) tablet 20 mg 20 mg, [...] 0702, May switch to NS IV at [facility] if renal / if indicated 07 (New Bag - Provider: Cindy Carr, HUMZA) scopolamine patch 1 mg/72 hr 1 patch, Transdermal, Administer over 72 Hours, Continuous, Starting on Sun06/13/22 at 0702, For 72 hours, Do not apply if patient older than 65 or has history of glaucoma. {BKC} 0723 (Medication Applied - Provider: Cindy Carr, HUMZA) 1037 (Due: Medication Removed - Provider: Automatic [...] drug alert 1311 (Given - Provider: Alissa Crystal, HUMZA) HYDROmorphone (DILAUDID) injection 0.3 mg(Linked Group 1) [...] Cici Lainez RN)1238 (Given - Provider: Cici Lainez RN)1246 (Given - Provider: Cici Lainez RN) lidocaine [...] Provider: An Bell MD - Comment: to [facility] for fire safety)1037 (Given - Provider: An [...] effective, documented in this encounter Care Teams Intensive Care Nurse Relationship Specialty Start Date End Date Herbert Hair MD Critical access hospital0 [facility] [address] [facility] [place] [address] PCP - General Adolescent Medicine 03/03/22 documented as of this encounter
--- OUTSIDE RECORDS SUMMARY | 2024-08-17 15:55 | XMS_ITS | Encounter Summary ---
Author Organization [facility] Address [address] [place] [address] Care Team Providers Care Technical Account Executive Name Role Phone Herbert Hair MD Primary Care Provider Encounter Details Date Type Department Care Team (Late st Contact Info) Description 06/06/2022 Telephone [facility] [address] [place] [address] Ramya Cam Social History Tobacco Use Types Packs/Day Years [...] encounter Miscellaneous Notes * Telephone Encounter - Ramya Cam - 06/06/2022 9:41 AM EDT Patient returned my call and I disclosed her negative [facility] genetic results. Informed patient results would be on Knotch and sent to her Dr. Patient declined needing a copy mailed to her. documented in this encounter Plan of Treatment Upcoming Encounters Date Type Department Care Team (Late st Contact Info) Description 09/18/2024 3:30 PM EST Office Visit [facility] HEMATOLOGY & ONCOLOGY [address] [facility] [address] [place] [address] Bre Crenshaw MD [address] [facility] [address] [place] [address] 12/31/2024 9:00 AM EDT Office Visit [facility] UROLOGY [address] [facility] [address] [place] [address] Oralia Saha APRN [address] [facility] [address] [place] [address] 05/12/2025 1:45 PM EDT Office Visit [facility] CARDIOLOGY [address] [facility] [address] [place] [address] Obed Woodard MD [address] [facility] [address] [place] [address] documented as of this encounter Visit Diagnoses Not on filedocumented in this encounter Care Teams Technical Account Executive Relationship Specialty Start Date End Date Herbert Hair MD [address] [facility] [address] [place] [address] PCP - General Adolescent Medicine 03/03/22 documented as of this encounter
--- OUTSIDE RECORDS SUMMARY | 2024-08-17 15:55 | XMS_ITS | Encounter Summary ---
Author Organization [facility] Address [address] [place] [address] Care Team Providers Care Engineering Programmer Name Role Phone Herbert Hair MD Primary Care Provider + [phone] Encounter Details Date Type Department Care Team (Late st Contact Info) Description 05/15/2022 Telephone [facility] [address] [place] [address] Erika Marie Social History Tobacco Use Types Packs/Day Years [...] encounter Miscellaneous Notes * Telephone Encounter - Erika Marie - 05/15/2022 3:17 PM EDTSummary: genetic counseling Spoke with the patient to setup a Genetic appointment this afternoon. A Telehealth appointment was made for 05-17-22 at 1030 with Oralia Rubi. documented in this encounter Plan of Treatment Upcoming Encounters Date Type Department Care Team (Late st Contact Info) Description 09/18/2024 3:30 PM EST Office Visit [facility] HEMATOLOGY & ONCOLOGY [address] [facility] [address] [place] [address] Bre Crenshaw MD [address] [facility] [address] [place] [address] 12/31/2024 9:00 AM EDT Office Visit [facility] UROLOGY [address] [facility] [address] [place] [address] Oralia Saha APRN [address] [facility] [address] [place] [address] 05/12/2025 1:45 PM EDT Office Visit [facility] CARDIOLOGY [address] [facility] [address] [place] [phone] Obed Woodard MD [address] [facility] [address] [place], [place] [phone] documented as of this encounter Visit Diagnoses Not on filedocumented in this encounter Care Teams Engineering Programmer Relationship Specialty Start Date End Date Herbert Hair MD [address] [facility] [address] [place] [address] PCP - General Adolescent Medicine 03/03/22 documented as of this encounter
--- OUTSIDE RECORDS SUMMARY | 2024-08-17 15:55 | XMS_ITS | Encounter Summary ---
Author Organization [facility] Address [address] [place] [address] Care Team Providers Care Nanny Caregiver Name Role Phone Herbert Hair MD Primary Care Provider + [phone] Encounter Details Date Type Department Care Team (Late st Contact Info) Description 05/31/2022 Telephone [facility] [address] [place] [phone] Emily Mcleod, R.T.(R) Social History Tobacco Use Types Packs/Day Years [...] encounter Miscellaneous Notes * Telephone Encounter - Emily Mcleod R.T.(Ju) - 05/31/2022 12:07 PM CDT At the request of the genetic counselor, I informed the patient that the results are still pending on the remainder of the panel and we would notify her of those results within a few weeks. documented in this encounter Plan of Treatment Upcoming Encounters Date Type Department Care Team (Late st Contact Info) Description 09/18/2024 3:30 PM EST Office Visit [facility] HEMATOLOGY & ONCOLOGY [address] [facility] [address] [place] [phone] Bre Crenshaw MD [address] [facility] [address] [place] [address] 12/31/2024 9:00 AM EDT Office Visit [facility] UROLOGY [address] [facility] [address] [place] [address] Oralia Saha APRN [address] [facility] [address] [place] [address] 05/12/2025 1:45 PM EDT Office Visit [facility] CARDIOLOGY [address] [facility] [address] [place] [phone] Obed Woodard MD [address] [facility] [address] [place] [address] documented as of this encounter Visit Diagnoses Not on filedocumented in this encounter Care Teams Nanny Caregiver Relationship Specialty Start Date End Date Herbert Hair MD [address] [facility] [address] [place] [address] PCP - General Adolescent Medicine 03/03/22 documented as of this encounter
--- OUTSIDE RECORDS SUMMARY | 2024-08-17 15:55 | XMS_ITS | Encounter Summary ---
Author Organization [facility] Address [address] [place] [address] Care Team Providers Care Ornament Setter Name Role Phone Herbert Hair MD Primary Care Provider Encounter Details Date Type Department Care Team (Late st Contact Info) Description 06/06/2022 Documentation [facility] [address] [place] [address] Oralia Rubi [address] [place] [address] Social History Tobacco Use Types [...] as of this encounter Progress Notes * Oralia Rubi - 06/06/2022 11:59 PM EDTSummary: Genetic testing was negative for pathogenic mutations in BRCA1/2 and 34 additional genes. Images from the original note were not included. Leydi Brown, a 47-year-old female, was seen for genetic counseling due to a personal history ofbreast cancer. Genetic counseling was completed via telehealth. Ms. Brown was recently diagnosed with a left breast cancer at age 47. She is in the process of making a surgical decision. Ms. Brown retains her uterus and ovaries. She reports having colonoscopies every five years and has had lessthan five colon polyps removed. She was interested in discussing her risk for a hereditary cancer syndrome. Ms. Brown was interested in pursuing a multi-gene panel to evaluate her risk of cancer, therefore the CancerNext panel was ordered through [facility] which analyzes BRCA1/2 and 34 additional genes associated with an increased cancer risk. The genes on this panel include APC, JARRET, AXIN2, BARD1, BMPR1A, BRCA1, BRCA2, BRIP1, CDH1, CDK4, CDKN2A, CHEK2, DICER1, EPCAM, GREM1, HOXB13, MLH1, MSH2, MSH3, MSH6, MUTYH, NBN, NF1, NTHL1, PALB2, PMS2, POLD1, POLE, PTEN, RAD51C, RAD51D, RECQL, SMAD4, SMARCA4, STK11, and TP53. Genetic testing was negative for pathogenic mutations in BRCA1/2 and34 additional genes on the CancerNext panel. These normal results were discussed with Ms. Brown by telephone on 06/06/2022. PERTINENT FAMILY HISTORY: (See attached pedigree) Pat. Aunt: Pancreatic cancer, 74 Pat. Grandmother: Stomach cancer, 80s Records regarding the family history were not provided for review. RISK ASSESSMENT: Ms. Brown???s personal history of cancer led to concern for a hereditary cancer syndrome. We discussed BRCA1/2 testing as well as the option of pursuing a panel that would test forother genes known to impact cancer risk in addition to BRCA1/2. Ms. Brown clearly meets NCCN guidelines criteria for BRCA1/2 testing based on her personal history of breast cancer diagnosed before age 50 and family history of pancreatic cancer. These risk assessments are based on the family history information provided at the time of the appointment, and could change in the future should new information be obtained. GENETIC COUNSELING: We reviewed the family history information in detail. Cases of cancer follow three general patterns: sporadic, familial, and hereditary. While most cancer is sporadic, some cases appear to occur in family clusters. These cases are said to be familial and account for 10-20% of cancer cases. Familial cases may be due to a combination of shared genes and environmental factors among family members. In even fewer families (5-10%), the cancer is said to be inherited, and the genesresponsible for the cancer are known. Family histories typical of hereditary cancer syndromes usually include multiple first- and second-degree relatives diagnosed with cancer types that define a syndrome. These cases tend to be diagnosed at whzgymw-pwil-tjdcesyq ages and can be bilateral or multifocal. The cancer in these families follows an autosomal dominant inheritance pattern, which indicates the likely presence of a mutation ernestina cancer susceptibility gene. Children and siblings of an individual believed to carry this mutation have a 50% chance of inheriting that mutation, thereby inheriting the increased risk to develop cancer. These mutations can be passed down from the maternal or the paternal lineage. Hereditary breast cancer accounts for 5-10% of all cases of breast cancer. A significant proportionof hereditary breast and ovarian cancer can be attributed to mutations in the BRCA1 and BRCA2 genes. Mutations in these genes confer an increased risk for breast cancer, ovarian cancer, male breast cancer, prostate cancer, and pancreatic cancer. Women with a BRCA1 or BRCA2 mutation who have alreadybeen diagnosed with breast cancer have a 40-60% lifetime risk of a second breast cancer. Women witha BRCA1 or BRCA2 mutation have up to a 44% risk of ovarian cancer. There are other genes that are known to be associated with an increased risk for cancer. Some of these genes have well defined cancer risks and established management guidelines. Other genes that canbe tested for have been more recently described, and there may be less data regarding the risks andtherefore may not have established management guidelines. We discussed these limitations at length.Based on Ms. Brown???s desire to get as much information as possible regarding her personal risksand potential risks for her family, she opted to pursue testing through a panel that would look at several other genes known to increase the risk for cancer. GENETIC TESTING: The risks, benefits and limitations of genetic testing and implications for clinical management following testing were reviewed. DNA test results can influence decisions regarding screening, prevention and surgical management. Genetic testing can have significant psychological implications for both individuals and families. Also discussed was the possibility of employment and insurance discrimination based on genetic test results and the laws in place to prevent this (AMANDA). We discussed panel testing, which would involve testing for BRCA1/2 as well as 34 additional genes that are associated with increased cancer risk. The benefits and limitations of genetic testing werediscussed and Ms. Brown decided to pursue testing via the panel. The implications of a positive or negative test result were discussed. We discussed the possibility that, in some cases, genetic test results may be informative or may be ambiguous due to the identification of a genetic variant. These variants may or may not be associated with an increased cancer risk. With multigene panel testing, it is not uncommon for a variant of uncertain significance (VUS) to be identified. If a VUS is identified, testing family members is typically not recommended and screening recommendations are made based on the family history. The laboratories that perform genetic testing work to reclassify the VUS and send out an amended report if and when a VUS is reclassified. The majority of variant findingsare ultimately reclassified to a negative result. Given her personal and family history, a negativetest result would not eliminate all cancer risk to her relatives, although the risk would not be ashigh as it would with positive genetic testing. TEST RESULTS: Genetic testing was negative for known pathogenic mutations by sequencing, rearrangement testing, and RNA analysis for the genes on the CancerNext panel (see attached results). This negative result greatly lowers but does not eliminate the risk of a hereditary cancer syndrome for Ms. Brown. This assessment is based on the information provided at time of consultation. CANCER SCREENING: Ms. Brown???s surveillance and management should be determined by her oncology team. Despite the negative genetic test results, Ms. Brown???s female relatives may have a somewhat increased lifetime risk for breast cancer based on family history. Female relatives could have a risk assessment performed using a family history-based model, such as the Tyrer- Cuzick model, to determine their individual risks. Surveillance for individuals with a high lifetime risk of breast cancer (>20%, versus the average risk of 12%), based on NCCN guidelines, would consist of semi-annual clinical breast exams and monthly self-breast exams starting by age 18 and annual mammography starting 10 years younger than the earliest diagnosis in a close relative, or starting by age 40, whichever is earliest. According to an [employer] expert panel, annual breast MRI should be offered to women whose lifetime risk of breast cancer is 20-25 percent or more, also starting by age 40 or earlier if indicated by family history. PLAN: Genetic counseling remains available to Ms. Brown. She is welcome to contact us with any questions or concerns at [phone]. Oralia Rubi MS, [facility] Licensed Certified Genetic Counselor Cc: MD Bre Samuel MD documented in this encounter Plan of Treatment Upcoming Encounters Date Type Department Care Team (Late st Contact Info) Description 09/18/2024 3:30 PM EST Office Visit [facility] HEMATOLOGY & ONCOLOGY [address] [facility] [address] [place] [phone] Bre Crenshaw MD [address] [facility] [address] [place] [address] 12/31/2024 9:00 AM EDT Office Visit [facility] UROLOGY [address] [facility] [address] [place] [address] Oralia Saha APRN [address] [facility] [address] [place] [address] 05/12/2025 1:45 PM EDT Office Visit [facility] CARDIOLOGY [address] [facility] [address] [place] [address] Obed Woodard MD [address] [facility] [address] [address] [place], [place] [id number] documented as of this encounter Visit Diagnoses Not on filedocumented in this encounter Care Teams Ornament Setter Relationship Specialty Start Date End Date Herbert Hair MD [address] [facility] [address] [facility] [address] [place] [address] PCP - General Adolescent Medicine 03/03/22 documented as of this encounter
--- OUTSIDE RECORDS SUMMARY | 2024-08-17 15:55 | XMS_ITS | Encounter Summary ---
Author Organization [facility] Address [address] [place] [address] Care Team Providers Care Job Site Superintendent Name Role Phone Herbert Hair MD Primary Care Provider + [phone] Encounter Details Date Type Department Care Team (Late st Contact Info) Description 05/15/2022 Nurse Navigator [facility] NURSE NAVIGATOR [address] [place] [address] Jes Austin, RN Social History [...] Progress Notes * Jes Austin RN - 05/15/2022 10:23 AM EDT Penelope @ [facility] is working on getting patients first consult with Dr CLARE lewis from 05/31/22 to 05/24/22. I called patient to let her know- we reviewed the pathology report - she had several questions - She agreed to genetic testing - referral given documented in this encounter Plan of Treatment Upcoming Encounters Date Type Department Care Team (Late st Contact Info) Description 09/18/2024 3:30 PM EST Office Visit [facility] HEMATOLOGY & ONCOLOGY [address] [facility] [address] [place] [address] Bre Crenshaw MD [address] [facility] [address] [place] [address] 12/31/2024 9:00 AM EDT Office Visit [facility] UROLOGY [address] [facility] [address] [place] [address] Sweetie SahaahDWAYNE [address] [facility] [address] [place] [address] 05/12/2025 1:45 PM EDT Office Visit [facility] CARDIOLOGY [address] [facility] [address] [place] [address] Obed Woodard MD [address] [facility] [address] [place] [address] documented as of this encounter Visit Diagnoses Not on filedocumented in this encounter Care Teams Job Site Superintendent Relationship Specialty Start Date End Date Herbert Hair MD [address] [facility] [address] [place] [address] PCP - General Adolescent Medicine 03/03/22 documented as of this encounter
--- OUTSIDE RECORDS SUMMARY | 2024-08-17 15:55 | XMS_ITS | Encounter Summary ---
Author Organization [facility] Address [address] [place] [address] Care Team Providers Care Craps Dealer Name Role Phone Herbert Hair MD Primary Care Provider + [phone] Encounter Details Date Type Department Care Team (Late st Contact Info) Description 05/09/2022 Telephone [facility] [address] [address] Keila Cisse RN MSN Social [...] - Keila Cisse RN MSN - 05/09/2022 3:39 PM EDT Patient notified of surgical consult appointment with Dr. Bell on 05.31.22 @ 0930. Patient given office contact & location information. Told to bring photo ID, list of prescription & OTC medications, insurance information. Must wear a mask; may be accompanied by one person who must also wear a mask. Reviewed what would be discussed at surgical consult visit, including detailed explanation of pathology report & imaging reports; treatment options & pros/cons, availability of nurse navigator. Patient verbalized understanding. Patient encouraged to call back or contact Breast Nurse Navigator, with any questions or concerns. Patient information sent to Breast Nurse Navigator for evaluation. documented in this encounter Plan of Treatment Upcoming Encounters Date Type Department Care Team (Late st Contact Info) Description 09/18/2024 3:30 PM EST Office Visit [facility] HEMATOLOGY & ONCOLOGY [address] [facility] [address] [place] [address] Bre Crenshaw MD [address] [facility] [address] [place] [address] 12/31/2024 9:00 AM EDT Office Visit [facility] UROLOGY [address] [facility] [address] [place] [address] Oralia Saha APRN [address] [facility] [address] [place] [address] 05/12/2025 1:45 PM EDT Office Visit [facility] CARDIOLOGY [address] [facility] [address] [place] [address] Obed Woodard MD [address] [facility] [address] [place], [place] [id number] documented as of this encounter Visit Diagnoses Not on filedocumented in this encounter Care Teams Craps Dealer Relationship Specialty Start Date End Date Herbert Hair MD [address] [place] [address] [place] [address] PCP - General Adolescent Medicine 03/03/22 documented as of this encounter
--- OUTSIDE RECORDS SUMMARY | 2024-08-17 15:55 | XMS_ITS | Encounter Summary ---
[facility] Organization [facility] Address [address] [place] [address] Care Team Providers Care Lap Grinder Name Role Phone Herbert Hair MD Primary Care Provider [phone] Reason for Referral * Diagnostic Imaging (Routine) - Closed Specialty Diagnoses / Procedures Referred By Contac t Referred To Contact Radiology Diagnoses Breast cancer screening by mammogram Procedures Mammo Screening Digital Tomosynthesis Bilateral With CAD Haleigh Khanna MD [address] [facility] [address] [place] [address] Phone: tel: fax: [address] [address] Phone: tel: Referral ID Status Reason Start Date Expiration Date Visits Re quested Visits Authorized [id number] Closed 01/09/2022 01/09/2023 1 1 Reason for Visit * Diagnostic Imaging (Routine) - Closed Specialty Diagnoses / Procedures Referred By Contac t Referred To Contact Radiology Diagnoses Breast cancer screening by mammogram Procedures Mammo Screening Digital Tomosynthesis Bilateral With CAD Haleigh Khanna MD [address] [address] Phone: tel: fax: [facility] [address] [place] [phone] Phone: tel: Referral ID Status Reason Start Date Expiration Date Visits Re quested Visits Authorized [id number] Closed 01/09/2022 01/09/2023 1 1 Encounter Details Date Type Department Care Team (Late st Contact Info) Description 03/03/2022 7:44 AM EDT - 03/03/2022 11:59 PM EDT Hospital Encounter [facility] [address] [place] [address] Haleigh Khanna MD [address] [place] [address] Breast cancer screening by mammogram Discharge Disposition: Home or Self Care [...] CENTER HEMATOLOGY & ONCOLOGY [address] [facility] [address] [place] [phone] Bre Crenshaw MD [address] [facility] [address] [place] [address] 12/31/2024 9:00 AM EDT Office Visit [facility] UROLOGY [address] [facility] [address] [place] [address] Oralia Saha APRN [address] [facility] [address] [place] [address] 05/12/2025 1:45 PM EDT Office Visit [facility] CARDIOLOGY [address] [facility] [address] [place] [phone] Obed Woodard MD [address] [facility] [address] [place], [place] [id number] documented as of this encounter Procedures Procedure Name Priority Date/Time Associated Diagnosis Comments MAMMO SCREENING DIGITAL TOMOSYNTHESIS BILATERAL W CAD Routine 03/03/2022 8:15 AM EDT Breast cancer screening by mammogram documented in this encounter Results * (ABNORMAL) Mammo Screening Digital Tomosynthesis Bilateral With CAD (03/03/2022 8:15 AM EDT) Anatomical Region Laterality Modality Breast N/A Mammography 03/06/2022 12:2 8 PM EDT Impressions 03/06/2022 12:42 PM EDT 1. Focal asymmetry in the left lower outer quadrant. 2. Possible area of architectural distortion right lateral breast. RECOMMENDATION: ??Bilateral CC focal compression and left MLO focal compression views with tomosynthesis. BI-RADS CATEGORY 0, INCOMPLETE: ??NEED ADDITIONAL IMAGING EVALUATION. ?? The patient will be contacted by our office to schedule an appointment for the additional studies. ??A letter, in lay terminology, with the results of this exam will be mailed to the patient. CAD was utilized. The standard false-negative rate of mammography is between 10% and 25%. Complex patterns or increased breast density will markedly elevate the false-negative rate of mammography. ?? Physician Order Diagnostic Mammogram and/or Ultrasound. Diagnosis: Abnormal Screening Mammogram This report was finalized on 03/06/2022 12:[address] Madison Dolan MD. Narrative 03/06/2022 12:42 PM EDT BILATERAL SCREENING MAMMOGRAM WITH TOMOSYNTHESIS: HISTORY: The patient has no personal history or significant family history of breast cancer and no new breast complaints at the time of screening mammography. No significant weight change was reported. TECHNIQUE: Bilateral CC and MLO low dose, full field digital mammographic images were obtained with 2-D acquisitions and tomosynthesis. COMPARISON: ??05/20/2020, 02/10/2019, 08/12/2018, 12/31/2017, 12/11/2017, 05/21/2017, 09/12/2017, and 09/04/2016 FINDINGS: ??There are scattered areas of fibroglandular density. ?? There is a focal asymmetry in the left lower outer quadrant. There is a possible area of architectural distortion the mid aspect of the right lateral breast. Bilateral additional imaging is recommended. The remaining bilateral fibroglandular pattern is stable. No suspicious groups of calcifications were identified. us Haleigh Khanna MD IMG MAMMOGRAPHY ORDERABLES Final Result documented in this encounter Visit Diagnoses Diagnosis Breast cancer screening by mammogram documented in this encounter Care Teams Lap Grinder Relationship Specialty Start Date End Date Herbert Hair MD [facility]0 [facility] [address] [facility] [address] PCP - General Adolescent Medicine 03/03/22 documented as of this encounter
--- OUTSIDE RECORDS SUMMARY | 2024-08-17 15:55 | XMS_ITS | Encounter Summary ---
Author Organization [facility] Address [address] [place] [address] Care Team Providers Care Dust Sampler Name Role Phone Herbert Hair MD Primary Care Provider [phone] Reason for Referral * Diagnostic Imaging (Routine) - Closed Specialty Diagnoses / Procedures Referred By Contac t Referred To Contact Radiology Diagnoses Malignant neoplasm of left breast in female, estrogen receptor positive, unspecified site of breast Procedures NM Pet Skull Base To Mid Thigh Bre Crenshaw MD [address] [address] Phone: tel: fax: [address] [address] Phone: tel: Referral ID Status Reason Start Date Expiration Date Visits Re quested Visits Authorized [id number] Closed 05/24/2022 06/27/2022 2 2 Reason for Visit * Diagnostic Imaging (Routine) - Closed Specialty Diagnoses / Procedures Referred By Contac t Referred To Contact Radiology Diagnoses Malignant neoplasm of left breast in female, estrogen receptor positive, unspecified site of breast Procedures NM Pet Skull Base To Mid Thigh Bre Crenshaw MD [address] [facility] [address] [place] [address] Phone: tel: fax: [facility] [address] [place] [address] Phone: tel: Referral ID Status Reason Start Date Expiration Date Visits Re quested Visits Authorized [id number] Closed 05/24/2022 06/27/2022 2 2 Encounter Details Date Type Department Care Team (Latest Contact Info) Description 05/30/2022 2:13 PM EDT - 05/30/2022 11:59 PM EDT Hospital Encounter [facility] PET [address] [facility] [place] [address] Malignant neoplasm of left breast in female, estrogen receptor positive, unspecified site of breast Discharge Disposition: Home [...] Medications at Time of Discharge busPIRone (BUSPAR) 7.5 MG tablet Take 15 mg by mouth every night at bedtime. 05/10/2022 3 butalbital-aceta minophen-caffein e (ORBIVAN) 50-300-40 MG capsule [...] Description 09/18/2024 3:30 PM EST Office Visit [facility] HEMATOLOGY & ONCOLOGY [address] [facility] [address] [place] [address] Bre Crenshaw MD [address] [facility] [address] [place] [address] 12/31/2024 9:00 AM EDT Office Visit [facility] UROLOGY [address] [facility] [address] [place] [address] Oralia Saha APRN [address] [facility] [address] [place] [address] 05/12/2025 1:45 PM EDT Office Visit [facility] CARDIOLOGY [address] [facility] [address] [place] [phone] Obed Woodard MD [address] [facility] [address] [place] [address] (work) documented as of this encounter Procedures Procedure Name Priority Date/Time Associated Diagnosis Comments NM PET/CT SKULL BASE TO MID THIGH Routine 05/30/2022 3:26 PM EDT Malignant neoplasm of left breast in female, estrogen receptor positive, unspecified site of breast documented in this encounter Results * NM PET/CT Skull Base to Mid [...] by Aman Weiss MD. Bre Crenshaw MD [facility] ORDERABLES Final Result documented in this encounter Visit Diagnoses Diagnosis Malignant neoplasm of left breast in female, estrogen receptor positive, unspecified site of breast documented in this encounter Administered Medications Inactive Administered Medications - up to 3 most recent administrations Medication Order MAR Action Action Date Dose Rate Site fludeoxyglucose F18 injection 1 dose 1 dose, Intravenous, Once in Imaging, On 05/30/22 at 1432, For 1 dose, Millicuries: 11.3 Given 05/30/2022 2:32 PM EDT 1 dose documented in this encounter Care Teams Dust Sampler Relationship Specialty Start Date End Date Herbert Hair MD [address] [facility] [address] [facility] [place] [address] PCP - General Adolescent Medicine 03/03/22 documented as of this encounter
--- OUTSIDE RECORDS SUMMARY | 2024-08-17 15:55 | XMS_ITS | Encounter Summary ---
Author Organization [facility] Address [address] [place] [address] Care Team Providers Care Physical Therapy Attendant Name Role Phone Herbert Hair MD Primary Care Provider [phone] Encounter Details Date Type Department Care Team (Late st Contact Info) Description 05/08/2022 Telephone [facility] OBGYN [address] [place] [address] Haleigh Khanna MD [address] [facility] [address] [place], [place] [id number] Social History Tobacco Use Types Packs/Day Years [...] encounter Miscellaneous Notes * Telephone Encounter - Seda Jamison RN - 05/08/2022 9:26 AM EDT Pt called, had questions about if she would need a repeat pap due to possibly breast cancer diagnosis. Discussed with Dr. Khanna, states that pt had normal pap in 2020 and her HPV was negative 01/20, does not need repeated unless pt would like to. Spoke with pt, notified her of Dr. Khanna recommendations, verbalizes understanding. Pt states she will call back and schedule if she wants to do a repeat pap. Informed pt to call us if she has further questions or needs anything. documented in this encounter Plan of Treatment Upcoming Encounters Date Type Department Care Team (Late st Contact Info) Description 09/18/2024 3:30 PM EST Office Visit [facility] HEMATOLOGY & ONCOLOGY [address] [facility] [address] [place] [address] Bre Crenshaw MD [address] [facility] [address] [place] [address] 12/31/2024 9:00 AM EDT Office Visit [facility] UROLOGY [address] [facility] [address] [place] [address] Oralia Saha APRN 1760 [facility] [address] [place] [address] 05/12/2025 1:45 PM EDT Office Visit [facility] CARDIOLOGY [address] [facility] [address] [place] [address] Obed Woodard MD 1720 [facility] [address] [place] [address] documented as of this encounter Visit Diagnoses Not on filedocumented in this encounter Care Teams Physical Therapy Attendant Relationship Specialty Start Date End Date Herbert Hair MD [address] [place] [facility] [address] [place] [address] PCP - General Adolescent Medicine 03/03/22 documented as of this encounter
--- OUTSIDE RECORDS SUMMARY | 2024-08-17 15:55 | XMS_ITS | Encounter Summary ---
Author Organization [facility] Address [address] [place] [address] Care Team Providers Care Waste Removalist Name Role Phone Herbert Hair MD Primary Care Provider [phone] Reason for Referral * Diagnostic Imaging (Routine) - Closed Specialty Diagnoses / Procedures Referred By Nasrin hernandez Referred To Contact Radiology Diagnoses Abnormal mammogram Procedures Mammo Post Clip Placement Left Haleigh Khanna MD 1700 [facility] [address] [place] [address] Phone: tel: fax: Referral ID Status Reason Start Date Expiration Date Visits Re quested Visits Authorized [id number] Closed 05/05/2022 05/05/2023 1 1 Reason for Visit * Diagnostic Imaging (Routine) - Closed Specialty Diagnoses / Procedures Referred By Nasrin hernandez Referred To Contact Radiology Diagnoses Abnormal mammogram Procedures Mammo Post Clip Placement Left Haleigh Khanna MD 1700 [facility] [address] [place], [place] [id number] Phone: tel: fax: Referral ID Status Reason Start Date Expiration Date Visits Re quested Visits Authorized [id number] Closed 05/05/2022 05/05/2023 1 1 Encounter Details Date Type Department Care Team (Latest Contact Info) Description 05/05/2022 10:43 AM EDT - 05/05/2022 11:59 PM EDT Hospital Encounter [facility] [address] [place] [address] Abnormal mammogram Discharge Disposition: Home or Self [facility] [address] [facility] [address] [place] [address] Bre Crenshaw MD [address] [facility] [address] [place] [address] 12/31/2024 9:00 AM EDT Office Visit [facility] UROLOGY [address] [facility] [address] [place] [address] Sweetie SaahahDWAYNE 1760 [facility] [address] [place] [address] 05/12/2025 1:45 PM EDT Office Visit [facility] CARDIOLOGY [address] [facility] [address] [place] [address] Obed Woodard MD 1720 [facility] [address] [place], [place] [id number] documented as of this encounter Procedures Procedure Name Priority Date/Time Associated Diagnosis Comments MAMMO POST DEVICE PLACEMENT LEFT Routine 05/05/2022 11:57 AM EDT Abnormal mammogram documented in this encounter Results * Mammo Post Clip Placement Left (05/05/2022 11:57 AM EDT) Anatomical Region Laterality Modality Breast Left Mammography 05/09/2022 3:29 PM EDT Narrative 05/09/2022 3:30 [...] 3:[address] Lien Phan MD. Lien Phan MD IMG MAMMOGRAPHY ORDERABLES Final Result documented in this encounter Visit Diagnoses Diagnosis Abnormal mammogram Abnormal mammogram, unspecified documented in this encounter Care Teams Waste Removalist Relationship Specialty Start Date End Date Herbert Hair MD Count includes the [facility] [address] [place] [address] PCP - General Adolescent Medicine 03/03/22 documented as of this encounter
--- OUTSIDE RECORDS SUMMARY | 2024-08-17 15:55 | XMS_ITS | Encounter Summary ---
Author Organization [facility] Address [address] [place] [address] Care Team Providers Care Regional Account Director Name Role Phone Herbert Hair MD Primary Care Provider Encounter Details Date Type Department Care Team (Late st Contact Info) Description 05/31/2022 Documentation [facility] [address] [place] [address] Oralia Rubi [address] [place] [address] Social History Tobacco Use Types [...] encounter Progress Notes * Oralia Rubi - 05/31/2022 4:06 PM EDTSummary: Negative BRCAplus Images from the original note were not included. Patient contacted to discuss results of genetic testing. The high/moderate breast cancer risk portion of the panel was resulted out first in order to expedite surgical decision making, and testing was negative for mutations in BRCA1/2, JARRET, CHEK2, CDH1, PALB2, PTEN, and TP53. The remainder of the Ca ncerNext panel, including lower risk genes, non-breast cancer related genes, and RNA analysis is still pending, and the patient will be contacted once those results are available. Full summary note, pedigree, and results will be sent to patient, referring provider, and treating physicians once fullpanel results are back. Oralia Rubi, MS, [facility], [facility] Cc: An Bell MD documented in this encounter Plan of Treatment Upcoming Encounters Date Type Department Care Team (Late st Contact Info) Description 09/18/2024 3:30 PM EST Office Visit [facility] HEMATOLOGY & ONCOLOGY 1700 [facility] [address] [place] [address] Bre Crenshaw MD 1700 [facility] [address] [place] [address] 12/31/2024 9:00 AM EDT Office Visit [facility] UROLOGY [address]60 [facility] [address] [place] [address] Oralia Saha APRN 1760 [facility] [address] [place] [address] 05/12/2025 1:45 PM EDT Office Visit [facility] CARDIOLOGY [address] [facility] [address] [place] [address] Obed Woodard MD [address] [facility] [address] [place] [address] documented as of this encounter Visit Diagnoses Not on filedocumented in this encounter Care Teams Regional Account Director Relationship Specialty Start Date End Date Herbert Hair MD [facility] [address] [place] [address] PCP - General Adolescent Medicine 03/03/22 documented as of this encounter
--- OUTSIDE RECORDS SUMMARY | 2024-08-17 15:55 | XMS_ITS | Encounter Summary ---
Author Organization [facility] Address [address] [place] [address] Care Team Providers Care Mechanical Facilities Technician Name Role Phone Herbert Hair MD Primary Care Provider [phone] Encounter Details Date Type Department Care Team (Late st Contact Info) Description 05/25/2022 Nurse Navigator [facility] NURSE NAVIGATOR [address] [place] [address] Jes Austin, RN Social History [...] Progress Notes * Jes Austin RN - 05/25/2022 3:53 PM EDT I saw patient with Dr SPARKS and patient daughters. Dr SPARKS reviewed pathology and surgical/treatment options. 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 The patient saw Dr Bre Crenshaw after consultation with Dr. SPARKS. Staging scans to be ordered - Patient states that she wants bilateral mastectomies without reconstruction. Genetic testing results are pending. Educational and supportive materials were given and reviewed. Notes taken for the patient. documented in this encounter Plan of Treatment Upcoming Encounters Date Type Department Care Team (Late st Contact Info) Description 09/18/2024 3:30 PM EST Office Visit [facility] HEMATOLOGY & ONCOLOGY [address] [facility] [address] [place] [address] Bre Crenshaw MD 1700 [facility] [address] [place] [address] 12/31/2024 9:00 AM EDT Office Visit [facility] UROLOGY [address] [facility] [address] [place] [address] Oralia Saha APRN 1760 [facility] [address] [place] [address] 05/12/2025 1:45 PM EDT Office Visit [facility] CARDIOLOGY [address] [facility] [address] [place] [address] Obed Woodard MD 1720 [facility] [address] [place], [place] [address] documented as of this encounter Visit Diagnoses Not on filedocumented in this encounter Care Teams Mechanical Facilities Technician Relationship Specialty Start Date End Date Herbert Hair MD [address] [place] [address] [address] [place] [address] PCP - General Adolescent Medicine 03/03/22 documented as of this encounter
--- OUTSIDE RECORDS SUMMARY | 2024-08-17 15:55 | XMS_ITS | Encounter Summary ---
Author Organization [facility] Address [address] [place] [address] Care Team Providers Care Mixing Technician Name Role Phone Drew Garibay MD Primary Care Provider [phone] Encounter Details Date Type Department Care Team (Late st Contact Info) Description 02/01/2022 Telephone [facility] OBGYN [address] [place] [address] Haleigh Khanna MD 17[address] [facility] [address] [place], [place] [address] Social History Tobacco Use Types Packs/Day Years [...] encounter Miscellaneous Notes * Telephone Encounter - Chely Murray RN - 02/01/2022 5:56 PM EDT Notified patient that RX has been called in. Patient V/U * Telephone Encounter - Kaylie Thomas APRN - 02/01/2022 5:48 PM EDT Diflucan x 2 erx done * Telephone Encounter - Chely Murray RN - 02/01/2022 5:19 PM EDT Patient calling stating that she has packed sinuses and her PCP just put her on Augmentin 875 2 times a day for 2 weeks starting this past Sunday. Patient reports that she is prone to yeast infections and has started to have some vaginal itching. Patient asking if we can prophylactically call in Diflucan. Patient also reports she is taking Boric Acid twice per week and wants to know if she can take this along with Diflucan. Advised I would speak to NOZZLE WORKER and call back with plan. Verified patients pharmacy as [facility] in [place]. * Telephone Encounter - Yadira Hensley - 02/01/2022 2:11 PM EDT Pt is wanting to speak to a nurse about getting a prescription filled for a possible yeast infection. documented in this encounter Plan of Treatment Upcoming Encounters Date Type Department Care Team (Late st Contact Info) Description 09/18/2024 3:30 PM EST Office Visit [facility] HEMATOLOGY & ONCOLOGY [address] [facility] [address] [place] [address] Bre Crenshaw MD 1700 [facility] [address] [place] [address] 12/31/2024 9:00 AM EDT Office Visit [facility] UROLOGY [address]60 [facility] [address] [place] [address] FabianOralia spiveyDWAYNE 1760 [facility] [address] [place], [place] [address] 05/12/2025 1:45 PM EDT Office Visit [facility] CARDIOLOGY 1720 [facility] [address] [place] [address] Obed Woodard MD 1720 [facility] [address] [place] [address] documented as of this encounter Visit Diagnoses Not on filedocumented in this encounter Care Teams Mixing Technician Relationship Specialty Start Date End Date Drew Garibay MD [address] [place] [address] PCP - General Family Medicine 09/04/16 03/02/22 documented as of this encounter
--- OUTSIDE RECORDS SUMMARY | 2024-08-17 15:55 | XMS_ITS | Encounter Summary ---
Author Organization [facility] Address [address] [place] [address] Care Team Providers Care Buy Boat Operator Name Role Phone Herbert Hair MD Primary Care Provider [phone] Reason for Visit * Diagnostic Imaging (Routine) - Closed Specialty Diagnoses / Procedures Referred By Nasrin hernandez Referred To Contact Radiology Diagnoses Malignant neoplasm of left breast in female, estrogen receptor positive, unspecified site of breast Procedures NM Pet Skull Base To Mid Thigh Bre Crenshaw MD [address]00 [facility] [address] [place] [address] Phone: tel: fax: [facility] [address] [place] [address] Phone: tel: Referral ID Status Reason Start Date Expiration Date Visits Re quested Visits Authorized [id number] Closed 05/24/2022 06/27/2022 2 2 Encounter Details Date Type Department Care Team (Latest Contact Info) Description 05/30/2022 2:13 PM EDT - 05/30/2022 11:59 PM EDT Hospital Encounter [facility] PET [address] [place] [address] Discharge Disposition: Home or Self Care Social [...] [facility] [address] [facility] [address] [place] [address] Bre Crenshaw MD 1700 [facility] [address] [place] [address] 12/31/2024 9:00 AM EDT Office Visit [facility] UROLOGY [address] [facility] [address] [place] [address] Oralia Saha APRN 1760 [facility] [address] [place], [place] [address] 05/12/2025 1:45 PM EDT Office Visit [facility] CARDIOLOGY 1720 [facility] [address] [place] [address] Obed Woodard MD 1720 [facility] [address] [place], [place] [address] documented as of this encounter Procedures Procedure Name Priority Date/Time Associated Diagnosis Comments NM PET/CT SKULL BASE TO MID THIGH Routine 05/30/2022 3:26 PM EDT Malignant neoplasm of left breast in female, estrogen receptor positive, unspecified site of breast POCT GLUCOSE FINGERSTICK Routine 05/30/2022 2:18 PM EDT documented in this encounter Results * POC Glucose Once (05/30/2022 2:18 PM EDT) Glucose 89 70 - 130 mg/dL 05/30/2022 2:20 PM EDT [facility] Comment:Meter: [id number] Op erator: [id number] [place] Blood 05/30/2022 2:18 PM EDT 05/30/2022 2:20 PM EDT us Herbert Hair MD POINT OF CARE TEST ORDERABLE S Final Result [facility]
[address] [place] [address], documented in this encounter Visit Diagnoses Not on filedocumented in this encounter Care Teams Buy Boat Operator Relationship Specialty Start Date End Date Herbert Hair MD [address] [place] [address] [address] [place] [address] PCP - General Adolescent Medicine 03/03/22 documented as of this encounter
--- OUTSIDE RECORDS SUMMARY | 2024-08-17 15:55 | XMS_ITS | Encounter Summary ---
[facility] Address [address] [place] [address] Care Team Providers Care Extermination Supervisor Name Role Phone Herbert Hair MD Primary Care Provider + [phone] Encounter Details Date Type Department Care Team (Late st Contact Info) Description 05/10/2022 Telephone [facility] [address] [address] Keila Cisse RN MSN Social [...] Encounter - Keila Cisse RN MSN - 05/10/2022 11:14 AM EDT Patient notified of surgical consult appointment with Dr. Bell on 05.31.22 @ 7620. Patient given office contact & location information. Told to bring photo ID, list of prescription & OTC medications, insurance information. Must wear a mask; may be accompanied by one person who must also wear a mask. Reviewed what would be discussed at surgical consult visit, including detailed explanation of pathology report & imaging reports; treatment options & pros/cons, availability of nurse navigator. Patient encouraged to call back or contact Breast Nurse Navigator, with any questions or concerns. Patient information sent to Breast Nurse Navigator for evaluation. Patient verbalized understanding. documented in this encounter Plan of Treatment Upcoming Encounters Date Type Department Care Team (Late st Contact Info) Description 09/18/2024 3:30 PM EST Office Visit [facility] HEMATOLOGY & ONCOLOGY 1700 [facility] [address] [place] [address] Bre Crenshaw MD 1700 [facility] [address] [place] [address] 12/31/2024 9:00 AM EDT Office Visit [facility] UROLOGY [address]60 [facility] [address] [place] [address] Oralia Saha APRN 1760 [facility] [address] [place] [address] 05/12/2025 1:45 PM EDT Office Visit [facility] CARDIOLOGY [address]20 [facility] [address] [place] [address] Obed Woodard MD 1720 [facility] [address] [place], [place] [address] documented as of this encounter Visit Diagnoses Not on filedocumented in this encounter Care Teams Extermination Supervisor Relationship Specialty Start Date End Date Herbert Hair MD [address] [place] [address] [place] [address] PCP - General Adolescent Medicine 03/03/22 documented as of this encounter
--- OUTSIDE RECORDS SUMMARY | 2024-08-17 15:55 | XMS_ITS | Encounter Summary ---
Author Organization [facility] Address [address] [place] [address] Care Team Providers Care Roll Forger Name Role Phone Herbert Hair MD Primary Care Provider [phone] Encounter Details Date Type Department Care Team (Late st Contact Info) Description 05/31/2022 Telephone [facility] HEMATOLOGY & ONCOLOGY [address] [address] Bre Crenshaw MD [address] [address] Social History Tobacco Use Types [...] Telephone Encounter - Bre Crenshaw MD - 05/31/2022 10:56 AM EDT Called patient to let her know that her PET scan shows no evidence of distant metastatic disease. She can proceed with surgery. I will see her back following surgery. documented in this encounter Plan of Treatment Upcoming Encounters Date Type Department Care Team (Late st Contact Info) Description 09/18/2024 3:30 PM EST Office Visit [facility] HEMATOLOGY & ONCOLOGY [address]00 [facility] [address] [place] [address] Bre Crenshaw MD 1700 [facility] [address] [place] [address] 12/31/2024 9:00 AM EDT Office Visit [facility] UROLOGY [address]60 [facility] [address] [place] [address] Oralia Saha APRN [address]60 [facility] [address] [place] [address] 05/12/2025 1:45 PM EDT Office Visit [facility] CARDIOLOGY [address]20 [facility] [address] [place] [address] Obed Woodard MD [address]20 [facility] [address] [place] [address] documented as of this encounter Visit Diagnoses Not on filedocumented in this encounter Care Teams Roll Forger Relationship Specialty Start Date End Date Herbert Hair MD 1210 [facility] [address] [place] [address] PCP - General Adolescent Medicine 03/03/22 documented as of this encounter
--- OUTSIDE RECORDS SUMMARY | 2024-08-17 15:55 | XMS_ITS | Encounter Summary ---
Author Organization [facility] Address [address] [place] [address] Care Team Providers Care Fiber Optic Assembly Worker Name Role Phone Herbert Hair MD Primary Care Provider [phone] Reason for Referral * Diagnostic Imaging (Routine) - Closed Specialty Diagnoses / Procedures Referred By Nasrin hernandez Referred To Contact Radiology Diagnoses Abnormal mammogram Procedures US Guided Breast Biopsy With & Without Device initial Haleigh Khanna MD [address] [address] Phone: tel: fax: Referral ID Status Reason Start Date Expiration Date Visits Re quested Visits Authorized [id number] Closed 05/05/2022 05/05/2023 1 1 Reason for Visit * Diagnostic Imaging (Routine) - Closed Specialty Diagnoses / Procedures Referred By Nasrin hernandez Referred To Contact Radiology Diagnoses Abnormal mammogram Procedures US Guided Breast Biopsy [place] & [place] [address] [place] [address] Phone: tel: fax: Referral ID Status Reason Start Date Expiration Date Visits Re quested Visits Authorized [id number] Closed 05/05/2022 05/05/2023 1 1 Encounter Details Date Type Department Care Team (Latest Contact Info) Description 05/05/2022 10:44 AM EDT - 05/05/2022 11:59 PM EDT Hospital Encounter [facility] 17[address] ULTRASOUND [address] [facility] [address] [place] [address] Abnormal mammogram Discharge Disposition: Home or Self [facility] [address] [facility] [address] [place] [address] Bre Crenshaw MD [address] [facility] [address] [place] [address] 12/31/2024 9:00 AM EDT Office Visit [facility] UROLOGY [address] [facility] [address] [place] [address] Oralia Saha APRN [address] [facility] [address] [place], [place] [address] 05/12/2025 1:45 PM EDT Office Visit [facility] CARDIOLOGY [address] [facility] [address] [place] [address] Obed Woodard MD [address] [facility] [address] [place] [address] documented as of this encounter Procedures Procedure Name Priority Date/Time Associated Diagnosis Comments US GUIDED BREAST BIOPSY W WO DEVICE INITIAL Routine 05/05/2022 12:05 PM EDT Abnormal mammogram TISSUE PATHOLOGY EXAM Routine 05/05/2022 11:50 AM EDT documented in this encounter Results * US Guided Breast Biopsy With & Without Device initial (05/05/2022 12:05 PM EDT) Anatomical Region Laterality Modality Breast N/A Ultrasound Tissue 05/09/2022 3:29 PM EDT Narrative 05/09/2022 3:30 PM EDT 12-gauge francis ULTRASOUND GUIDED CORE BIOPSY History: 2 cm [...] carcinoma. Estrogen receptor positive progesterone receptor positive HER-2/leti negative. Result is concordant. Recommendation: Surgical consult [...] Phan MD. us Lien Phan MD IMG ORDERABLES Final Res ult * Tissue Pathology Exam (05/05/2022 11:50 AM EDT) Case Report Surgical Pathology Report ? Case: [id number] ? Authorizing Provider: ??Lien Phan MD ? Collected: ? 05/05/2022 11:50 AM ? Ordering Location: ? [facility] ?? Received: ?05/05/2022 12:20 PM ? BREAST CENTER 1760 ? ULTRASOUND ? Pathologist: ? Caio Donovan, DO ? Specimen: ?Breast, Left, left breast mass 4:00, suspect cancer ? 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 05/09/2022 10:21 AM [facility] Gross Description 1. Breast, Left. Received in [...] 6 and less than 72 hours. LDP 05/09/2022 10:21 AM [facility] Special Stains IMMUNOHISTOCHEMICAL RESULTS (IHC): E-cadherin: Positive (supports diagnosis of invasive ductal) SMH and p63: Demonstrates loss of myoepithelial cells in areas of interest (supports invasive carcinoma; no evidence of DCIS) Estrogen Receptor RESULT: Positive 90% 2-3+ (INTENSITY SCORE) Progesterone Receptor RESULT: Low positive 10% 1+ (INTENSITY SCORE) Her2/Leti oncoprotein RESULT: Negative 25% 1+ (INTENSITY SCORE) Internal control cells for ER: Present and stain as expected Internal control cells for MT: Present and stain as expected Tissue cold time prior to fixation: less than 60 minutes Total fixation time (neutral buffered formalin): greater than 6 hours and less than 72 hours HER-2/leti oncoprotein (Kilauea clone [id number], polymer, IVD). Test is performed on formalin fixed, paraffin embedded tissue. NEGATIVE TEST is 0+ or 1+ staining. POSITIVE TEST is 3+ staining, with at least 10% of tumor showing strong and uniform membranous staining. EQUIVOCAL TEST is 2+ or questionable 3+ staining and is submitted for testing by CLAYTON method for HER2/leti oncogene amplification. ER clone Kilauea SP1, MT clone IE2, polymer, IVD approved immunohistochemical stains are performed on formalin-fixed, paraffin-embedded tissue. 1-10% of nuclei staining of any intensity is considered a low positive test, and 11% or greater nuclear staining of any intensity is considered positive in our laboratory. Estrogen, Progesterone Receptors and Her2/leti testing is scored and reported as per ASCO/CAP guidelines published in Arch Pathol Lab Med. doi: 10.5858/arpa.2019-090 4-SA (2019 update). The reference values for positive, low positive, negative and equivocal are listed above. These assays are FDA cleared when performed on formalin-fixed, paraffin-embedded (FFPE) tissues within the latest ASCO/CAP guideline limits on fixation time. The reliability of the assays for therapeutic predictive value in other circumstances is diminished. This includes short or extended fixation time, decalcification, or fixation in other than 10% neutral buffered formalin. 05/09/2022 10:21 AM EDT [facility] Microscopic Description The slides are reviewed and demonstrate histopathologic features supporting the above rendered diagnosis. 05/09/2022 10:21 AM EDT [facility] Tissue Left breast structure / Unknown Collection / Unknown 05/05/2022 11:50 AM EDT 05/05/2022 12:20 PM EDT us Lien Phan MD PATHOLOGY/CYTOLOGY ORDERABL ES Final Result [facility]
[address] [place] [address], documented in this encounter Visit Diagnoses Diagnosis Abnormal mammogram Abnormal mammogram, unspecified documented in this encounter Administered Medications Inactive Administered Medications - up to 3 most recent administrations Medication Order MAR Action Action Date Dose Rate Site lidocaine (XYLOCAINE) 1 % injection 5 mL 5 mL, Injection, Once, On Sun05/05/22 at 1205, For 1 dose Given 05/05/2022 12:03 PM EDT 1 mL lidocaine 1% - EPINEPHrine 1:576217 (XYLOCAINE W/EPI) 1 %-1:214504 injection 10 mL 10 mL, Injection, Once, On Sun05/05/22 at 1205, For 1 dose Given 05/05/2022 12:03 PM EDT 4 mL documented in this encounter Care Teams Fiber Optic Assembly Worker Relationship Specialty Start Date End Date Herbert Hair MD [facility] [address] [place] [address] PCP - General Adolescent Medicine 03/03/22 documented as of this encounter
--- OUTSIDE RECORDS SUMMARY | 2024-08-17 15:55 | XMS_ITS | Encounter Summary ---
Author Organization [facility] Address [address] [place] [address] Care Team Providers Care Compensation Adjuster Name Role Phone Herbert Hair MD Primary Care Provider + [phone] Encounter Details Date Type Department Care Team (Late st Contact Info) Description 05/15/2022 Telephone [facility] [address] [place] [phone] Emily Mcleod R.TTimothy(R) Social History Tobacco Use Types Packs/Day Years [...] Notes * Telephone Encounter - Emily Mcleod R.TTimothy(R) - 05/15/2022 2:54 PM CDT Unable to reach patient to complete pre-visit questionnaire. documented in this encounter Plan of Treatment Upcoming Encounters Date Type Department Care Team (Late st Contact Info) Description 09/18/2024 3:30 PM EST Office Visit [facility] HEMATOLOGY & ONCOLOGY [address] [facility] [address] [place] [address] Bre Crenshaw MD [address] [facility] [address] [place] [address] 12/31/2024 9:00 AM EDT Office Visit [facility] UROLOGY [address] [facility] [address] [place] [address] Oralia Saha APRN [address] [facility] [address] [place] [address] 05/12/2025 1:45 PM EDT Office Visit [facility] CARDIOLOGY [address] [facility] [address] [place] [address] Obed Woodard MD [address] [facility] [address] [place] [address] documented as of this encounter Visit Diagnoses Not on filedocumented in this encounter Care Teams Compensation Adjuster Relationship Specialty Start Date End Date Herbert Hair MD [address] [facility] [address] [place] [address] PCP - General Adolescent Medicine 03/03/22 documented as of this encounter
--- OUTSIDE RECORDS SUMMARY | 2024-08-17 15:55 | XMS_ITS | Encounter Summary ---
Author Organization [facility] Address [address] [place] [address] Care Team Providers Care Home Office Claim Specialist Name Role Phone Herbert Hair MD Primary Care Provider Encounter Details Date Type Department Care Team (Late st Contact Info) Description 05/24/2022 2:30 PM EDT Clinical Support [facility] [address] [place] [address] Oralia Rubi [address] [place], [place] [id number] Genetic testing (Primary Dx); Malignant neoplasm of left breast in female, estrogen receptor positive, unspecified site of breast; Family history of pancreatic cancer Social History Tobacco Use Types Packs/Day Years [...] encounter Progress Notes * Oralia Rubi - 05/24/2022 2:30 PM EDT Blood sample collected and sent to [email or web address] for germline genetic testing as discussed on 05/16/2022. Results from the high/moderate risk breast cancer genes are expected in 7-10 days and resultsfrom the remainder of the panel are expected in 2-3 weeks. Oralia Rubi MS, [facility] documented in this encounter Plan of Treatment Upcoming Encounters Date Type Department Care Team (Late st Contact Info) Description 09/18/2024 3:30 PM EST Office Visit [facility] HEMATOLOGY & ONCOLOGY [address] [facility] [address] [place] [address] Bre Crenshaw MD [address] [facility] [address] [place] [address] 12/31/2024 9:00 AM EDT Office Visit [facility] UROLOGY [address] [facility] [address] [place] [address] Oralia Saha APRN [address] [facility] [address] [place] [address] 05/12/2025 1:45 PM EDT Office Visit [facility] CARDIOLOGY [address] [facility] [address] [place] [address] Obed Woodard MD [address] [facility] [address] [place], [place] [id number] documented as of this encounter Visit Diagnoses Diagnosis Genetic testing- Primary Other investigation and testing for procreative management Malignant neoplasm of left breast in female, estrogen receptor positive, unspecified site of breast Family history of pancreatic cancer Family history of malignant neoplasm of gastrointestinal tract documented in this encounter Care Teams Home Office Claim Specialist Relationship Specialty Start Date End Date Herbert Hair MD 12[address] [facility] [address] [address] PCP - General Adolescent Medicine 03/03/22 documented as of this encounter
--- OUTSIDE RECORDS SUMMARY | 2024-08-17 15:55 | XMS_ITS | Encounter Summary ---
Author Organization [facility] Address [address] [place] [address] Care Team Providers Care Batch Or Continuous Still Operator Name Role Phone Herbert Hair MD Primary Care Provider Encounter Details Date Type Department Care Team (Late st Contact Info) Description 06/06/2022 Telephone [facility] [address] [place] [address] Ramya Cam Social History Tobacco [...] Telephone Encounter - Ramya Cam - 06/06/2022 9:14 AM EDT Left message asking patient to call me back. documented in this encounter Plan of Treatment Upcoming Encounters Date Type Department Care Team (Late st Contact Info) Description 09/18/2024 3:30 PM EST Office Visit [facility] HEMATOLOGY & ONCOLOGY [address] [facility] [address] [place] [address] Bre Crenshaw MD [address] [facility] [address] [place] [address] 12/31/2024 9:00 AM EDT Office Visit [facility] UROLOGY [address] [facility] [address] [place] [address] Oralia Saha APRN [address] [facility] [address] [place] [address] 05/12/2025 1:45 PM EDT Office Visit [facility] CARDIOLOGY [address] [facility] [address] [place] [phone] Obed Woodard MD [address] [facility] [address] [place] [address] documented as of this encounter Visit Diagnoses Not on filedocumented in this encounter Care Teams Batch Or Continuous Still Operator Relationship Specialty Start Date End Date Herbert Hair MD [address] [place] [facility] [address] [place] [address] PCP - General Adolescent Medicine 03/03/22 documented as of this encounter
--- OUTSIDE RECORDS SUMMARY | 2024-08-17 15:55 | XMS_ITS | Encounter Summary ---
Author Organization [facility] Address [address] [place] [address] Care Team Providers Care Bulb Grader Name Role Phone Herbert Hair MD Primary Care Provider + [phone] Reason for Visit * Consultation (Routine) - Closed Specialty Diagnoses / Procedures Referred By Nasrin hernandez Referred To Contact Genetics Diagnoses Breast cancer An Bell MD [address] [address] Phone: tel: fax: [facility] [address] [place] [address] Phone: tel: fax: Referral ID Status Reason Start Date Expiration Date Visits Re quested Visits Authorized [id number] Closed 05/15/2022 05/15/2023 1 1 Encounter Details Date Type Department Care Team (Late st Contact Info) Description 05/16/2022 10:30 AM EDT Clinical Support [facility] [address] [place] [address] Oralia Rubi0 [facility] [address] Genetic testing (Primary Dx); Malignant neoplasm of [...] this encounter Progress Notes * Oralia Rubi Mayra - 05/16/2022 10:30 AM EDT Leydi Brown, a 47-year-old female, was seen [...] therefore the CancerNext panel was ordered through [facility] which analyzes BRCA1/2 and 34 additional genes associated with an increased cancer risk. PERTINENT FAMILY HISTORY: (See attached pedigree) Pat. [...] should new information be obtained. GENETIC COUNSELING: (30 minutes) We reviewed the family history information in detail. Cases of cancer follow three general patterns: sporadic, familial, and hereditary. While most cancer is sporadic, some cases appear to occur in family clusters. These cases are said to be familial and account [id number]% of cancer cases. Familial cases may be due to a combination of shared genes and environmental factors among family members. In even fewer families (5-10%), the cancer is said to be inherited, and the genes responsible for the cancer are known. Family histories typical of hereditary cancer syndromes usually include multiple first- and second-degree relatives diagnosed with cancer types that define a syndrome. These cases tend to be diagnosed at [id number] ages and can be bilateral or multifocal. [...] as it would with positive genetic testing. PLAN: Genetic testing via the CancerNext panel through [facility] was ordered. A blood draw will be coordinated on the same day as her initial consult with breast surgeon Dr. An Bell, which is still in the process of being scheduled. Results from the high/moderate risk breast cancer genes are expected 10 days after the lab receives her sample, and results from the remainder of the panel are expected in 2-3 weeks. Ms. Borwn is welcome to contact us in the meantime with any questions she may have at [phone]. Oralia Rubi MS, [facility] Licensed Certified Genetic Counselor documented in this encounter Plan of Treatment Upcoming Encounters Date Type Department Care Team (Late st Contact Info) Description 09/18/2024 3:30 PM EST Office Visit [facility] HEMATOLOGY & ONCOLOGY [address] [facility] [address] [place] [address] Bre Crenshaw MD [address] [facility] [address] [place] [address] 12/31/2024 9:00 AM EDT Office Visit [facility] UROLOGY [address] [facility] [address] [place] [address] Oralia Saha APRN [address] [facility] [address] [place] [address] 05/12/2025 1:45 PM EDT Office Visit [facility] CARDIOLOGY [address] [facility] [address] [place] [address] Obed Woodard MD [address]20 [facility] [address] [place] [address] documented as of this encounter Visit Diagnoses Diagnosis Genetic testing- Primary Other investigation and testing for procreative management Malignant neoplasm of left breast in female, estrogen receptor positive, unspecified site of breast Family history of pancreatic cancer Family history of malignant neoplasm of gastrointestinal tract documented in this encounter Care Teams Bulb Grader Relationship Specialty Start Date End Date Herbert Hair MD [address] [facility] [address] [place] [address] PCP - General Adolescent Medicine 03/03/22 documented as of this encounter
--- OUTSIDE RECORDS SUMMARY | 2024-08-17 15:55 | XMS_ITS | Encounter Summary ---
Author Organization [facility] Address [address] [place] [address] Care Team Providers Care Butter Wrapper Name Role Phone Herbert Hair MD Primary Care Provider + [phone] Encounter Details Date Type Department Care Team (Late st Contact Info) Description 05/31/2022 Nurse Navigator [facility] HEMATOLOGY & ONCOLOGY [address] [facility] [address] [place] [address] Trudy Lincoln RN Social History Tobacco Use Types Packs/Day [...] as of this encounter Progress Notes * Trudy Lincoln RN - 05/31/2022 11:[address] SPARKS's office notified that patient may proceed with surgery per Dr. Crenshaw. documented in this encounter Plan of Treatment Upcoming Encounters Date Type Department Care Team (Late st Contact Info) Description 09/18/2024 3:30 PM EST Office Visit [facility] HEMATOLOGY & ONCOLOGY [address] [facility] [address] [place] [address] Bre Crenshaw MD [address] [facility] [address] [place] [address] 12/31/2024 9:00 AM EDT Office Visit [facility] UROLOGY [address] [facility] [address] [place] [address] Oralia Saha APRN [address] [facility] [address] [place] [address] 05/12/2025 1:45 PM EDT Office Visit [facility] CARDIOLOGY [address] [facility] [address] [place] [address] Obed Woodard MD [address]20 [facility] [address] [place] [address] documented as of this encounter Visit Diagnoses Not on filedocumented in this encounter Care Teams Butter Wrapper Relationship Specialty Start Date End Date Herbert Hair MD 1210 [facility] [address] [place] [address] PCP - General Adolescent Medicine 03/03/22 documented as of this encounter
--- OUTSIDE RECORDS SUMMARY | 2024-08-17 15:55 | XMS_ITS | Encounter Summary ---
Author Organization [facility] Address [address] [place] [address] Care Team Providers Care Bowstring Maker Name Role Phone Herbert Hair MD Primary Care Provider + [phone] Encounter Details Date Type Department Care Team (Late st Contact Info) Description 05/26/2022 Telephone [facility] OBGYN [address] [place] [address] Haleigh Khanna MD 1700 [facility] [address] [place], [place] [id number] Social History Tobacco Use Types Packs/Day Years [...] Telephone Encounter - Seda Jamison RN - 05/26/2022 10:37 AM EDT Pt called, states she has been having some lower abdominal/pelvic cramping. She states she has hx of cysts and fibroids. She reports she was recently diagnosis with breast cancer and had a PET scan done last week, and is awaiting results. She was concerned because of her last pap results. Pt statesshe has been having some issues with constipation and had questions about if that would cause pelvic cramping. Told pt it could be causing some discomfort. Recommended for pt to drink plenty of fluids and try colace or a stool softener to help with the constipation. Instructed pt that if it does not resolve and/or she still has concerns to call our office back. Pt verbalizes understanding. documented in this encounter Plan of Treatment Upcoming Encounters Date Type Department Care Team (Late st Contact Info) Description 09/18/2024 3:30 PM EST Office Visit [facility] HEMATOLOGY & ONCOLOGY [address] [facility] [address] [place] [address] Bre Crenshaw MD [address] [facility] [address] [place] [address] 12/31/2024 9:00 AM EDT Office Visit [facility] [address] [facility] [address] [place] [address] Oralia Saha APRN [address] [facility] [address] [place], [place] [address] 05/12/2025 1:45 PM EDT Office Visit [facility] [address] [facility] [address] [place] [address] Obed Woodard MD [address] [place] [address] documented as of this encounter Visit Diagnoses Not on filedocumented in this encounter Care Teams Bowstring Maker Relationship Specialty Start Date End Date Herbert Hair MD 1210 [facility] [address] [place] [address] PCP - General Adolescent Medicine 03/03/22 documented as of this encounter
--- OUTSIDE RECORDS SUMMARY | 2024-08-17 15:55 | XMS_ITS | Encounter Summary ---
Author Organization [facility] Address [address] [place] [address] Care Team Providers Care Employee Benefits Administrator Name Role Phone Herbert Hair MD Primary Care Provider [phone] Encounter Details Date Type Department Care Team (Late st Contact Info) Description 05/24/2022 2:20 PM EDT Lab [facility] ONCOLOGY LAB [address] [place] [address] Genetic testing (Primary Dx) Social History Tobacco Use Types [...] 09/18/2024 3:30 PM EST Office Visit [facility] HEMATOLOGY & ONCOLOGY [address] [facility] [address] [place] [id number] Bre Crenshaw MD [address] [facility] [address] [place] [address] 12/31/2024 9:00 AM EDT Office Visit [facility] UROLOGY [address] [facility] [address] [place] [address] Oralia Saha APRN [address] [facility] [address] [place], [place] [id number] 05/12/2025 1:45 PM EDT Office Visit [facility] CARDIOLOGY [address] [facility] [address] [place] [id number] Obed Woodard MD [address] [facility] [address] [place], [place] [id number] documented as of this encounter Visit Diagnoses Diagnosis Genetic testing- Primary Other investigation and testing for procreative management documented in this encounter Care Teams Employee Benefits Administrator Relationship Specialty Start Date End Date Herbert Hair MD [address] [facility] [address] [place] [address] PCP - General Adolescent Medicine 03/03/22 documented as of this encounter
--- OUTSIDE RECORDS SUMMARY | 2024-08-17 15:55 | XMS_ITS | Encounter Summary ---
Author Organization [facility] Address [address] [place] [address] Care Team Providers Care Mri Ct Tech Name Role Phone Drew Garibay MD Primary Care Provider [phone] Reason for Visit * Diagnostic Imaging (Routine) - Closed Specialty Diagnoses / Procedures Referred By Nasrin t Referred To Contact Radiology Diagnoses Intramural leiomyoma of uterus Procedures US Non-ob Transvaginal Haleigh Dempsey MD [address] [facility] [address] [place] [address] Phone: tel: fax: [facility] [place] [address] Phone: tel: fax: Referral ID Status Reason Start Date Expiration Date Visits Re quested Visits Authorized [id number] Closed 01/09/2022 01/09/2023 1 1 Encounter Details Date Type Department Care Team (Latest Contact Info) Description 01/09/2022 8:30 AM EDT Ancillary Procedure [facility] [place] [address] Intramural leiomyoma of uterus Social History Tobacco [facility] [address] [facility] [address] [place] [address] Bre Crenshaw MD [address] [facility] [address] [place] [address] 12/31/2024 9:00 AM EDT Office Visit [facility] UROLOGY [address] [facility] [address] [place] [address] Oralia Saha APRN [address] [facility] [address] [place] [address] 05/12/2025 1:45 PM EDT Office Visit [facility] CARDIOLOGY [address] [facility] [address] [place] [address] Obed Woodard MD [address] [facility] [address] [place], [place] [id number] documented as of this encounter Procedures Procedure Name Priority Date/Time Associated Diagnosis Comments US PELVIS LIMITED Routine 01/09/2022 8:5 3 AM EDT Intramural leiomyoma of uterus US NON-OB TRANSVAGINAL Routine 01/09/2022 8:53 AM EDT Intramural leiomyoma of uterus documented in this encounter Results * US Pelvis Limited (01/09/2022 8:53 AM EDT) Anatomical Region Laterality Modality Body, Pelvis Ultrasound 01/09/2022 8:22 AM EDT Narrative 01/10/2022 12:14 PM EDT PAT NAME: AUGUSTINE BROWN [facility] REC#: [id number] DA: [id number] PAT GEND: F PAT TYPE: O EXAM VALENCIA: <OBR.7.1>[id number]</OBR.7.1><OBR.7.1>[id number]</OBR.7.1> REF PHYS HALEIGH DEMPSEY Indication ======== Fibroids. Comparison Studies The findings of this study are compared to the prior ultrasound study dated 12/06/20 Method ======= Voluson E6, Transvaginal ultrasound examination, 3D ultrasound examination. View: Adequate view Uterus ====== Uterus: Visualized Uterus position: Anteverted Description of uterine malformations: none Myometrium: Fibroids are present Endometrium: Uniform Cervix details: Nabothian cyst noted, Normal Uterus long 133 mm Uterus ap 84 mm Uterus tr 115 mm Uterus Vol 666.3 cm?? Endometrial thickness, total 7.0 mm Uterine fibroid D1 76.3 mm Uterine fibroid D2 73.3 mm Uterine fibroid D3 71.8 mm Uterine fibroid vol 210.395 cm?? Uterine fibroids findings: mid Uterine fibroid D1 39.3 mm Uterine fibroid D2 34.4 mm Uterine fibroid D3 38.7 mm Uterine fibroid vol 27.395 cm?? Uterine fibroids findings: posterior, left Right Ovary Rt ovary: Visualized Rt ovary D1 28.2 mm Rt ovary D2 18.5 mm Rt ovary D3 19.2 mm Rt ovary Vol 5.2 cm?? Rt ovarian follicle(s): Follicles identified Left Ovary ========= Lt ovary: Visualized Lt ovary details: seen transabdominally only Lt ovary D1 23.0 mm Lt ovary D2 11.8 mm Lt ovary D3 9.70 mm Lt ovary Vol 1.4 cm?? [place] Visualized. No free fluid visualized Impression The uterus is enlarged. The previously noted mid intramural fibroid and left posterior intramural fibroid are again noted on today's exam. These are stable in size compared to prior imaging. The ovaries appear sonographically normal in size, shape and morphology Recommendation Follow-up as clinically indicated. Indication ======== Fibroids. Comparison Studies The findings of this study are compared to the prior ultrasound study dated 12/06/20 Method ======= Voluson E6, Transvaginal ultrasound examination, 3D ultrasound examination. View: Adequate view Uterus ====== Uterus: Visualized Uterus position: Anteverted Description of uterine malformations: none Myometrium: Fibroids are present Endometrium: Uniform Cervix details: Nabothian cyst noted, Normal Uterus long 133 mm Uterus ap 84 mm Uterus tr 115 mm Uterus Vol 666.3 cm?? Endometrial thickness, total 7.0 mm Uterine fibroid D1 76.3 mm Uterine fibroid D2 73.3 mm Uterine fibroid D3 71.8 mm Uterine fibroid vol 210.395 cm?? Uterine fibroids findings: mid Uterine fibroid D1 39.3 mm Uterine fibroid D2 34.4 mm Uterine fibroid D3 38.7 mm Uterine fibroid vol 27.395 cm?? Uterine fibroids findings: posterior, left Right Ovary Rt ovary: Visualized Rt ovary D1 28.2 mm Rt ovary D2 18.5 mm Rt ovary D3 19.2 mm Rt ovary Vol 5.2 cm?? Rt ovarian follicle(s): Follicles identified Left Ovary ========= Lt ovary: Visualized Lt ovary details: seen transabdominally only Lt ovary D1 23.0 mm Lt ovary D2 11.8 mm Lt ovary D3 9.70 mm Lt ovary Vol 1.4 cm?? [place] Visualized. No free fluid visualized Impression The uterus is enlarged. The previously noted mid intramural fibroid and left posterior intramural fibroid are again noted on today's exam. These are stable in size compared to prior imaging. The ovaries appear sonographically normal in size, shape and morphology Recommendation Follow-up as clinically indicated. Bellhop: RT Mega(R), [facility] Physician: Haleigh Dempsey MD, FACOG Electronically signed by: Hlaeigh Dempsey MD, FACOG at: 12:14 Procedure Note Haleigh Dempsey MD - 01/10/2022 PAT NAME: AUGUSTINE BROWN MED REC#: [id number] DA: [id number] PAT GEND: F PAT TYPE: O EXAM VALENCIA:<OBR.7.1>[id number]</OBR.7.1><OBR.7.1>[id number]</OBR.7.1> REF PHYS HALEIGH DEMPSEY Indication ======== Fibroids. Comparison Studies The findings of this study are compared to the prior ultrasound studydated 12/06/20 Method ======= Voluson E6, Transvaginal ultrasound examination, 3D ultrasoundexamination. View: Adequate view Uterus ====== Uterus:Visualized Uterus position:Anteverted Description of uterine malformations:none Myometrium:Fibroids are present Endometrium:Uniform Cervix details:Nabothian cyst noted, Normal Uterus zvhs224 mm Uterus ap84 mm Uterus tr115 mm Uterus Jvf914.3 cm?? Endometrial thickness, total7.0 mm Uterine fibroid D176.3 mm Uterine fibroid D273.3 mm Uterine fibroid D371.8 mm Uterine fibroid img463.395 cm?? Uterine fibroids findings:mid Uterine fibroid D139.3 mm Uterine fibroid D234.4 mm Uterine fibroid D338.7 mm Uterine fibroid vol27.395 cm?? Uterine fibroids findings:posterior, left Right Ovary Rt ovary:Visualized Rt ovary D128.2 mm Rt ovary D218.5 mm Rt ovary D319.2 mm Rt ovary Vol5.2 cm?? Rt ovarian follicle(s):Follicles identified Left Ovary ========= Lt ovary:Visualized Lt ovary details:seen transabdominally only Lt ovary D123.0 mm Lt ovary D211.8 mm Lt ovary D39.70 mm Lt ovary Vol1.4 cm?? [place] Visualized. No free fluid visualized Impression The uterus is enlarged. The previously noted mid intramural fibroid andleft posterior intramural fibroid are again noted on today's exam. Theseare stable in size compared to prior imaging. The ovaries appear sonographically normal insize, shape and morphology Recommendation Follow-up as clinically indicated. Indication ======== Fibroids. Comparison Studies The findings of this study are compared to the prior ultrasound studydated 12/06/20 Method ======= Voluson E6, Transvaginal ultrasound examination, 3D ultrasoundexamination. View: Adequate view Uterus ====== Uterus:Visualized Uterus position:Anteverted Description of uterine malformations:none Myometrium:Fibroids are present Endometrium:Uniform Cervix details:Nabothian cyst noted, Normal Uterus mftr685 mm Uterus ap84 mm Uterus tr115 mm Uterus Jej800.3 cm?? Endometrial thickness, total7.0 mm Uterine fibroid D176.3 mm Uterine fibroid D273.3 mm Uterine fibroid D371.8 mm Uterine fibroid xdb340.395 cm?? Uterine fibroids findings:mid Uterine fibroid D139.3 mm Uterine fibroid D234.4 mm Uterine fibroid D338.7 mm Uterine fibroid vol27.395 cm?? Uterine fibroids findings:posterior, left Right Ovary Rt ovary:Visualized Rt ovary D128.2 mm Rt ovary D218.5 mm Rt ovary D319.2 mm Rt ovary Vol5.2 cm?? Rt ovarian follicle(s):Follicles identified Left Ovary ========= Lt ovary:Visualized Lt ovary details:seen transabdominally only Lt ovary D123.0 mm Lt ovary D211.8 mm Lt ovary D39.70 mm Lt ovary Vol1.4 cm?? [place] Visualized. No free fluid visualized Impression The uterus is enlarged. The previously noted mid intramural fibroid andleft posterior intramural fibroid are again noted on today's exam. Theseare stable in size compared to prior imaging. The ovaries appear sonographically normal insize, shape and morphology Recommendation Follow-up as clinically indicated. Bellhop: RT Mega(R), [facility] Physician: Haleigh Dempsey MD, FACOG Electronically signed by: Haleigh Dempsey MD, FACOG at: 12:14 us Haleigh Dempsey MD IMG US ORDERABLES Final Result * US Non-ob Transvaginal (01/09/2022 8:53 AM EDT) Anatomical Region Laterality Modality Body Ultrasound 01/09/2022 8:22 AM EDT Narrative 01/10/2022 12:14 PM EDT PAT NAME: AUGUSTINE BROWN MED REC#: [id number] DA: [id number] PAT GEND: F PAT TYPE: O EXAM VALENCIA: <OBR.7.1>[id number]</OBR.7.1><OBR.7.1>[id number]</OBR.7.1> REF PHYS HALEIGH DEMPSEY Indication ======== Fibroids. Comparison Studies The findings of this study are compared to the prior ultrasound study dated 12/06/20 Method ======= Voluson E6, Transvaginal ultrasound examination, 3D ultrasound examination. View: Adequate view Uterus ====== Uterus: Visualized Uterus position: Anteverted Description of uterine malformations: none Myometrium: Fibroids are present Endometrium: Uniform Cervix details: Nabothian cyst noted, Normal Uterus long 133 mm Uterus ap 84 mm Uterus tr 115 mm Uterus Vol 666.3 cm?? Endometrial thickness, total 7.0 mm Uterine fibroid D1 76.3 mm Uterine fibroid D2 73.3 mm Uterine fibroid D3 71.8 mm Uterine fibroid vol 210.395 cm?? Uterine fibroids findings: mid Uterine fibroid D1 39.3 mm Uterine fibroid D2 34.4 mm Uterine fibroid D3 38.7 mm Uterine fibroid vol 27.395 cm?? Uterine fibroids findings: posterior, left Right Ovary Rt ovary: Visualized Rt ovary D1 28.2 mm Rt ovary D2 18.5 mm Rt ovary D3 19.2 mm Rt ovary Vol 5.2 cm?? Rt ovarian follicle(s): Follicles identified Left Ovary ========= Lt ovary: Visualized Lt ovary details: seen transabdominally only Lt ovary D1 23.0 mm Lt ovary D2 11.8 mm Lt ovary D3 9.70 mm Lt ovary Vol 1.4 cm?? [place] Visualized. No free fluid visualized Impression The uterus is enlarged. The previously noted mid intramural fibroid and left posterior intramural fibroid are again noted on today's exam. These are stable in size compared to prior imaging. The ovaries appear sonographically normal in size, shape and morphology Recommendation Follow-up as clinically indicated. Indication ======== Fibroids. Comparison Studies The findings of this study are compared to the prior ultrasound study dated 12/06/20 Method ======= Voluson E6, Transvaginal ultrasound examination, 3D ultrasound examination. View: Adequate view Uterus ====== Uterus: Visualized Uterus position: Anteverted Description of uterine malformations: none Myometrium: Fibroids are present Endometrium: Uniform Cervix details: Nabothian cyst noted, Normal Uterus long 133 mm Uterus ap 84 mm Uterus tr 115 mm Uterus Vol 666.3 cm?? Endometrial thickness, total 7.0 mm Uterine fibroid D1 76.3 mm Uterine fibroid D2 73.3 mm Uterine fibroid D3 71.8 mm Uterine fibroid vol 210.395 cm?? Uterine fibroids findings: mid Uterine fibroid D1 39.3 mm Uterine fibroid D2 34.4 mm Uterine fibroid D3 38.7 mm Uterine fibroid vol 27.395 cm?? Uterine fibroids findings: posterior, left Right Ovary Rt ovary: Visualized Rt ovary D1 28.2 mm Rt ovary D2 18.5 mm Rt ovary D3 19.2 mm Rt ovary Vol 5.2 cm?? Rt ovarian follicle(s): Follicles identified Left Ovary ========= Lt ovary: Visualized Lt ovary details: seen transabdominally only Lt ovary D1 23.0 mm Lt ovary D2 11.8 mm Lt ovary D3 9.70 mm Lt ovary Vol 1.4 cm?? [place] Visualized. No free fluid visualized Impression The uterus is enlarged. The previously noted mid intramural fibroid and left posterior intramural fibroid are again noted on today's exam. These are stable in size compared to prior imaging. The ovaries appear sonographically normal in size, shape and morphology Recommendation Follow-up as clinically indicated. Bellhop: RT Mega(R), [facility] Physician: Haleigh Dempsey MD, FACOG Electronically signed by: Haleigh Dempsey MD, FACOG at: 12:14 Procedure Note Haleigh Dempsey MD - 01/10/2022 PAT NAME: AUGUSTINE BROWN [facility] REC#: [id number] DA: [id number] PAT GEND: F PAT TYPE: O EXAM VALENCIA:<OBR.7.1>[id number]</OBR.7.1><OBR.7.1>[id number]</OBR.7.1> REF PHYS HALEIGH DEMPSEY Indication ======== Fibroids. Comparison Studies The findings of this study are compared to the prior ultrasound studydated 12/06/20 Method ======= Voluson E6, Transvaginal ultrasound examination, 3D ultrasoundexamination. View: Adequate view Uterus ====== Uterus:Visualized Uterus position:Anteverted Description of uterine malformations:none Myometrium:Fibroids are present Endometrium:Uniform Cervix details:Nabothian cyst noted, Normal Uterus ymds288 mm Uterus ap84 mm Uterus tr115 mm Uterus Qmq479.3 cm?? Endometrial thickness, total7.0 mm Uterine fibroid D176.3 mm Uterine fibroid D273.3 mm Uterine fibroid D371.8 mm Uterine fibroid cnm057.395 cm?? Uterine fibroids findings:mid Uterine fibroid D139.3 mm Uterine fibroid D234.4 mm Uterine fibroid D338.7 mm Uterine fibroid vol27.395 cm?? Uterine fibroids findings:posterior, left Right Ovary Rt ovary:Visualized Rt ovary D128.2 mm Rt ovary D218.5 mm Rt ovary D319.2 mm Rt ovary Vol5.2 cm?? Rt ovarian follicle(s):Follicles identified Left Ovary ========= Lt ovary:Visualized Lt ovary details:seen transabdominally only Lt ovary D123.0 mm Lt ovary D211.8 mm Lt ovary D39.70 mm Lt ovary Vol1.4 cm?? [place] Visualized. No free fluid visualized Impression The uterus is enlarged. The previously noted mid intramural fibroid andleft posterior intramural fibroid are again noted on today's exam. Theseare stable in size compared to prior imaging. The ovaries appear sonographically normal insize, shape and morphology Recommendation Follow-up as clinically indicated. Indication ======== Fibroids. Comparison Studies The findings of this study are compared to the prior ultrasound studydated 12/06/20 Method ======= Voluson E6, Transvaginal ultrasound examination, 3D ultrasoundexamination. View: Adequate view Uterus ====== Uterus:Visualized Uterus position:Anteverted Description of uterine malformations:none Myometrium:Fibroids are present Endometrium:Uniform Cervix details:Nabothian cyst noted, Normal Uterus ersz063 mm Uterus ap84 mm Uterus tr115 mm Uterus Inm177.3 cm?? Endometrial thickness, total7.0 mm Uterine fibroid D176.3 mm Uterine fibroid D273.3 mm Uterine fibroid D371.8 mm Uterine fibroid hiy818.395 cm?? Uterine fibroids findings:mid Uterine fibroid D139.3 mm Uterine fibroid D234.4 mm Uterine fibroid D338.7 mm Uterine fibroid vol27.395 cm?? Uterine fibroids findings:posterior, left Right Ovary Rt ovary:Visualized Rt ovary D128.2 mm Rt ovary D218.5 mm Rt ovary D319.2 mm Rt ovary Vol5.2 cm?? Rt ovarian follicle(s):Follicles identified Left Ovary ========= Lt ovary:Visualized Lt ovary details:seen transabdominally only Lt ovary D123.0 mm Lt ovary D211.8 mm Lt ovary D39.70 mm Lt ovary Vol1.4 cm?? [place] Visualized. No free fluid visualized Impression The uterus is enlarged. The previously noted mid intramural fibroid andleft posterior intramural fibroid are again noted on today's exam. Theseare stable in size compared to prior imaging. The ovaries appear sonographically normal insize, shape and morphology Recommendation Follow-up as clinically indicated. Bellhop: Britt Armenta RT(R), [facility] Physician: Haleigh Dempsey MD, FACOG Electronically signed by: Haleigh Dempsey MD, FACOG at: 12:14 Haleigh Dempsey MD [facility] US ORDERABLES Final Result documented in this encounter Visit Diagnoses Diagnosis Intramural leiomyoma of uterus documented in this encounter Care Teams Mri Ct Tech Relationship Specialty Start Date End Date Drew Garibay MD [address] [place] [address] PCP - General Family Medicine 09/04/16 03/02/22 documented as of this encounter
--- OUTSIDE RECORDS SUMMARY | 2024-08-17 15:55 | XMS_ITS | Encounter Summary ---
Author Organization [facility] Address [address] [place] [address] Care Team Providers Care Ruffling Machine Operator Name Role Phone Herbert Hair MD Primary Care Provider [phone] Reason for Referral * (Routine) - Closed Specialty Diagnoses / Procedures Referred By Nasrin hernandez Referred To Contact Radiology Diagnoses Abnormal mammogram Procedures US Breast Bilateral Limited Haleigh Khanna MD [address] [place] [address] Phone: tel: fax: Referral ID Status Reason Start Date Expiration Date Visits Re quested Visits Authorized [id number] Closed 05/05/2022 05/05/2023 1 1 Reason for Visit * (Routine) - Closed Specialty Diagnoses / Procedures Referred By Nasrin hernandez Referred To Contact Radiology Diagnoses Abnormal mammogram Procedures US Breast Bilateral Limited Haleigh Khanna MD [address] [place] [address] Phone: tel: fax: Referral ID Status Reason Start Date Expiration Date Visits Re quested Visits Authorized [id number] Closed 05/05/2022 05/05/2023 1 1 Encounter Details Date Type Department Care Team (Latest Contact Info) Description 05/05/2022 9:47 AM EDT - 05/05/2022 11:59 PM EDT Hospital Encounter [facility] [address] [place] [address] Abnormal mammogram Discharge Disposition: Home [...] [facility] [address] [facility] [address] [place] [address] Bre Crenshaw MD [address] [facility] [address] [place] [address] 12/31/2024 9:00 AM EDT Office Visit [facility] UROLOGY [address] [facility] [address] [place], [place] [id number] Oralia Saha APRN [address] [facility] [address] [place], [place] [id number] 05/12/2025 1:45 PM EDT Office Visit [facility] CARDIOLOGY [address] [facility] [address] [place] [id number] Obed Woodard MD [address] [facility] [address] [place], [place] [id number] documented as of this encounter Procedures Procedure Name Priority Date/Time Associated Diagnosis Comments US BREAST BILATERAL LIMITED Routine 05/05/2022 10:47 AM EDT Abnormal mammogram documented in this encounter Results * (ABNORMAL) US Breast Bilateral Limited (05/05/2022 10:47 AM EDT) Anatomical Region Laterality Modality Breast Bilateral Ultrasound 05/05/2022 11:5 1 AM EDT Impressions 05/05/2022 [...] the largest which measures 1.9 cm us Lien Phan MD IMG US ORDERABLES Final Res ult documented in this encounter Visit Diagnoses Diagnosis Abnormal mammogram Abnormal mammogram, unspecified documented in this encounter Care Teams Ruffling Machine Operator Relationship Specialty Start Date End Date Herbert Hair MD [address] [place] [address] [address] [id number] PCP - General Adolescent Medicine 03/03/22 documented as of this encounter
--- OUTSIDE RECORDS SUMMARY | 2024-08-17 15:56 | XMS_ITS | Encounter Summary ---
Author Organization [facility] Address [address] [place] [address] Care Team Providers Care Buffing Machine Operator Semiautomatic Name Role Phone Drew Garibay MD Primary Care Provider [phone] Reason for Referral * Diagnostic Imaging (Routine) - Closed Specialty Diagnoses / Procedures Referred By Nasrin hernandez Referred To Contact Obstetrics and Gynecology Diagnoses Fibroids Procedures US Non-ob Transvaginal Haleigh Dempsey MD [address] [facility] [address] [place] [address] Phone: tel: fax: [facility] [address] [place] [address] Phone: tel: fax:[phone] Referral ID Status Reason Start Date Expiration Date Visits Re quested Visits Authorized [id number] Closed 11/22/2020 11/22/2021 1 1 Encounter Details Date Type Department Care Team (Late st Contact Info) Description 11/22/2020 11:30 AM EST Office Visit [facility] [address] [place] [address] Haleigh Dempsey MD [address] [facility] [address] [place] [id number] Acute vaginitis (Primary Dx); Vaginal odor; Screening examination for STD (sexually transmitted disease); Fibroids Social History Tobacco Use Types Packs/Day [...] Sign Reading Time Taken Comments Blood Pressure 142/90 11/22/2020 11:43 AM EST Pulse - - Temperature 36.4 ??C (97.5 ??F) 11/22/2020 11:[address] Respiratory Rate - - Oxygen Saturation - - Inhaled Oxygen Concentration - - Weight 92.1 kg (203 lb) 11/22/2020 11:43 AM EST Height 157.5 cm (5' 2 ) 11/22/2020 11:43 AM EST Body Mass Index 37.13 11/22/2020 11:43 AM EST documented in this encounter Progress Notes * Haleigh Dempsey MD - 11/22/2020 11:30 AM EST No chief complaint on file. Subjective HPI Augustine Navas is a 45 y.o. female, , who presents with evaluation of vulvar itching and vaginal odor. She describes this as dirty that is initial. She tried Diflucan last week but it didn't help. She states she has experienced this problem for 1 week. She describes the severity as moderate. Patient notes aggravating factors include IC and alleviating factors are none. The patient has previously been evaluated for vaginitis and has been treated for recurrent BV in the past. She previously was on once weekly metrogel and did well with this. Her last LMP was No LMP recorded. Patient has had an ablation.. Periods are absent secondary to ablation. Partner Status: Marital Status: . New Partners since last visit: no. Desires STD Screening: no. 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 Review of Systems Constitutional: Negative. HENT: Negative. Eyes: Negative. Respiratory: Negative. Cardiovascular: Negative. Gastrointestinal: Negative. Endocrine: Negative. Genitourinary: Positive for vaginal pain (irritation). Musculoskeletal: Negative. Skin: Negative. Allergic/Immunologic: Negative. Neurological: Negative. Hematological: Negative. Psychiatric/Behavioral: Negative. All other systems reviewed and are negative. I have reviewed and agree with the HPI, ROS, and historical information as entered above. Haleigh Dempsey MD Past Medical History: Diagnosis Date ??? Acid reflux ??? Hypertension ??? Hypothyroidism ??? Screening breast examination denies ??? Tubular adenoma of colon 05/18/2016 Dr Pastor Past Surgical History: Procedure Laterality Date ??? BREAST BIOPSY Left 11/2016 lt stereo bx ??? SECTION ??? COLONOSCOPY 04/20/2017 hemorrhoids ? ? D&C HYSTEROSCOPY ENDOMETRIAL ABLATION 10/21/2013 ??? ENDOSCOPY 03/2016 Normal ??? LAPAROSCOPIC CHOLECYSTECTOMY ??? TONSILLECTOMY Objective BP 142/90 Temp 97.5 ??F (36.4 ??C) Ht 157.5 cm (62 ) Wt 92.1 kg (203 lb) No BMI 37.13 kg/m?? Physical Exam Vitals signs and nursing note reviewed. Exam conducted with a field hockey coach present. Constitutional: General: She is not in acute distress. Appearance: Normal appearance. HENT: Head: Normocephalic and atraumatic. Pulmonary: Effort: Pulmonary effort is normal. No accessory muscle usage or respiratory distress. Genitourinary: Exam position: Lithotomy position. Labia: Right: No rash, tenderness, lesion or injury. Left: No rash, tenderness, lesion or injury. Vagina: No signs of injury and foreign body. Vaginal discharge (clear discharge noted) present. No erythema, tenderness, bleeding or lesions. Cervix: No cervical motion tenderness, discharge, friability, lesion, erythema or cervical bleeding. Neurological: Mental Status: She is alert and oriented to person, place, and time. Psychiatric: Mood and Affect: Mood and affect normal. Speech: Speech normal. Wet mount performed? Yes. Pertinent positives include: both negative Assessment/Plan Assessment and Plan Problem List Items Addressed This Visit None Visit Diagnoses Acute vaginitis - Primary Relevant Orders POC Urinalysis Dipstick (Completed) Vaginal odor Relevant Orders NuSwab BV & Ivana - Swab, Vagina Genital Mycoplasmas HANK, Swab - Swab, Vagina POC VIDA Prep POC Wet Prep Screening examination for STD (sexually transmitted disease) Relevant Orders Chlamydia trachomatis, Neisseria gonorrhoeae, Trichomonas vaginalis, PCR - Swab, Cervix Fibroids Relevant Orders US Non-ob Transvaginal 1. NuSwab ordered 2. Counseling on Vaginitis provided 3. WIll contact pt with results 4. Patient with history of recurrent bacterial vaginosis and had previously done well on once weekly MetroGel. She stopped this and we had planned to try Fem pH, however, this was too expensive. She has had continued intermittent vaginal discharge and odor over the last 2 years. This seems to be exacerbated with intercourse. On examination today only clear discharge is noted and VIDA and wet prep are both negative today. We will proceed with further testing by new swab and STD screening as well.We will contact the patient with her testing results and will treat any infections noted. We have discussed resuming once weekly prophylaxis and she would desire oral Flagyl versus MetroGel at this time. Haleigh Dempsey MD 11/22/2020 * Haleigh Dempsey MD - 11/22/2020 11:30 AM EST Please call patient about results. Her testing showed she was negative for yeast, BV, STDs and mycoplasma species. Does she still feel like she's having the odor? Could it be sweating? IF so, she could try Lume deoderant externally and see if this helps with the odor * Viridiana Dominguez MA - 11/22/2020 11:30 AM EST Pt was told of results and to try LUME, pt said she would try this. documented in this encounter Plan of Treatment Upcoming Encounters Date Type Department Care Team (Late st Contact Info) Description 09/18/2024 3:30 PM EST Office Visit [facility] & [facility] [address] [facility] [address] [place] [phone] Bre Crenshaw MD [address] [facility] [address] [place] [address] 12/31/2024 9:00 AM EDT Office Visit [facility] [address] [facility] [address] [place] [address] Oralia Saha APRN [address] [facility] [address] [place] [address] 05/12/2025 1:45 PM EDT Office Visit [facility] [address] [facility] [address] [place] [phone] Obed Woodard MD [address] [facility] [address] [place], [place] [id number] documented as of this encounter Procedures Procedure Name Priority Date/Time Associated Diagnosis Comments POCT WET MOUNT (AKA FERN TEST, VAGINAL FLUID) Routine 11/22/2020 1:27 PM EST Vaginal odor POCT VIDA PREP Routine 11/22/2020 1:25 PM EST Vaginal odor POCT URINALYSIS DIPSTICK, MANUAL Routine 11/22/2020 11:45 AM EST Acute vaginitis GENITAL MYCOPLASMAS HANK, SWAB Routine 11/22/2020 12:00 AM EST Vaginal odor NUSWAB BV AND IVANA Routine 11/22/2020 12:00 AM EST Vaginal odor CHLAMYDIA TRACHOMATIS, NEISSERIA GONORRHOEAE, TRICHOMONAS VAGINALIS, PCR Routine 11/22/2020 12:00 AM EST Screening examination for STD (sexually transmitted disease) documented in this encounter Results * US Non-ob Transvaginal (12/06/2020 9:35 AM EST) Anatomical Region Laterality Modality Body Ultrasound 12/06/2020 9:16 AM EST Narrative 12/06/2020 4:30 PM EST PAT NAME: AUGUSTINE NAVAS MED REC#: [id number] DA: [id number] PAT GEND: F PAT TYPE: O EXAM VALENCIA: [id number] REF PHYS HALEIGH DEMPSEY Indication ======== follow up Fibroid. Comparison Studies The findings of this study are compared to the prior ultrasound study dated 10/20/2019 Method ======= Voluson E6, Transvaginal ultrasound examination, 3D ultrasound examination. View: Limited by patient body habitus and large shadowing fibroid. Uterus ====== Uterus: Visualized Uterus position: Anteverted Description of uterine malformations: none Myometrium: Homogeneous Endometrium: Uniform Cervix details: Normal Uterus long 132 mm Uterus ap 76 mm Uterus tr 100 mm Uterus Vol 521.3 cm?? Endometrial thickness, total 8.8 mm Uterine fibroid D1 81.8 mm Uterine fibroid D2 69.3 mm Uterine fibroid D3 74.1 mm Uterine fibroid vol 219.771 cm?? Uterine fibroids findings: Right Uterine fibroid D1 37.1 mm Uterine fibroid D2 35.8 mm Uterine fibroid D3 41.3 mm Uterine fibroid vol 28.710 cm?? Uterine fibroids findings: possible fibroid. posterior Right Ovary Rt ovary: Visualized Rt ovary D1 28.7 mm Rt ovary D2 23.6 mm Rt ovary D3 11.8 mm Rt ovary Vol 4.2 cm?? Left Ovary ========= Lt ovary: Visualized Lt ovary D1 31.5 mm Lt ovary D2 15.0 mm Lt ovary D3 14.00 mm Lt ovary Vol 3.5 cm?? Cul de Sac ========= Visualized. No free fluid visualized Impression ========= The findings of this study are compared to the prior ultrasound study dated 10/20/2019. The uterus is enlarged. Findings consistent with intramural fibroids. The fibroid is stable in size compared to prior u/s. There is a new fibroid measuring 4.1 cm in size. The ovaries appear sonographically normal in size, shape and morphology Recommendation Follow-up as clinically indicated. Coal Chute Worker: RT Mega(R), [facility] [place] Physician: Haleigh Dempsey MD, FACOG Electronically signed by: Haleigh Dempsey MD, FACOG at: 16:30 Procedure Note Haleigh Dempsey MD - 12/06/2020 PAT NAME: AUGUSTINE NAVAS [facility] REC#: [id number] DA: [id number] PAT GEND: F PAT TYPE: O EXAM VALENCIA: [id number] REF PHYS HALEIGH DEMPSEY Indication ======== follow up Fibroid. Comparison Studies The findings of this study are compared to the prior ultrasound studydated 10/20/2019 Method ======= Voluson E6, Transvaginal ultrasound examination, 3D ultrasoundexamination. View: Limited by patient body habitus and large shadowingfibroid. Uterus ====== Uterus:Visualized Uterus position:Anteverted Description of uterine malformations:none Myometrium:Homogeneous Endometrium:Uniform Cervix details:Normal Uterus [id number] mm Uterus ap76 mm Uterus tr100 mm Uterus Afa622.3 cm?? Endometrial thickness, total8.8 mm Uterine fibroid D181.8 mm Uterine fibroid D269.3 mm Uterine fibroid D374.1 mm Uterine fibroid ciq229.771 cm?? Uterine fibroids findings:Right Uterine fibroid D137.1 mm Uterine fibroid D235.8 mm Uterine fibroid D341.3 mm Uterine fibroid vol28.710 cm?? Uterine fibroids findings:possible fibroid. posterior Right Ovary Rt ovary:Visualized Rt ovary D128.7 mm Rt ovary D223.6 mm Rt ovary D311.8 mm Rt ovary Vol4.2 cm?? Left Ovary ========= Lt ovary:Visualized Lt ovary D131.5 mm Lt ovary D215.0 mm Lt ovary D314.00 mm Lt ovary Vol3.5 cm?? Cul de Sac ========= Visualized. No free fluid visualized Impression ========= The findings of this study are compared to the prior ultrasound studydated 10/20/2019. The uterus is enlarged. Findings consistent withintramural fibroids. The fibroid is stable in size compared to prior u/s. There is a new fibroid measuring 4.1cm in size. The ovaries appear sonographically normal in size, shape andmorphology Recommendation Follow-up as clinically indicated. Coal Chute Worker: Britt Armenta RT(R), [facility] [place] Physician: Haleigh Dempsey MD, FACOG Electronically signed by: Haleigh Dempsey MD, FACOG at: 16:30 Haleigh Dempsey MD [facility] ORDERABLES Final Result * POC Wet Prep (11/22/2020 1:27 PM EST) Wet Prep negative [facility] Vaginal Fluid 11/22/2020 1:2 7 PM EST us Haleigh Dempsey MD POINT OF CARE TEST ORDERABLES Fi nal Result Performing Organization Address [facility]/ZIP Co de Phone Number [facility]
[address] [place] [address], [place] [phone] * POC VIDA Prep (11/22/2020 1:25 PM EST) VIDA Prep No yeast or hyphal elements seen No yeast or hyphal elements seen [facility] Vaginal Fluid 11/22/2020 1:2 5 PM EST us Haleigh Dempsey MD POINT OF CARE TEST ORDERABLES Fi nal Result Performing Organization Address [facility] Co de Phone Number [facility]
[address] [place] [address], [place] [phone] * POC Urinalysis Dipstick (11/22/2020 11:45 AM EST) Color Yellow Yellow, Straw, Dark Yellow, Cici [facility] Clarity, UA Clear Clear [facility] Glucose, UA Negative Negative, 1000 mg/dL (3+) mg/dL [facility] Bilirubin Negative Negative [facility] Ketones, UA Negative Negative [facility] Specific [place] 1.030 1.005 - 1.030 [facility] Blood, UA Negative Negative [facility] pH, Urine 6.0 5.0 - 8.0 [facility] Protein, POC Negative Negative mg/dL [facility] Urobilinogen, UA Normal Normal [facility] Leukocytes Negative Negative [facility] Nitrite, UA Negative Negative [facility] Urine 11/22/2020 11:4 5 AM EST us Haleigh Dempsey MD POINT OF CARE TEST ORDERABLES Fi nal Result Performing Organization Address City/[facility] Co de Phone Number [facility]
[address] [place] [id number], [place] [phone] * Genital Mycoplasmas HANK, Swab - Swab, Vagina (11/22/2020 12:00 AM EST) Mycoplasma genitalium NA Negative Negative [facility] Mycoplasma hominis Negative Negative [facility] Ureaplasma spp Negative Negative [facility] Swab Specimen from vagina / Unknown 11/22/2020 11/22/2020 Narrative [facility]) - 11/25/2020 7:09 AM EST Test(s) 085094-Qbfvqwvdgh hominis HANK; 401251-Utntncxnod spp HANK was developed and its performance characteristics determined by [facility]. It has not been cleared or approved by the Food and Drug Administration. Performed at: ??01 - [facility] ??[id number] Etl Manager: Umesh Syed MD, Phone: ??[phone] Haleigh Dempsey MD MICROBIOLOGY - GENERAL ORDERABLE S Final Result [facility] ([facility]) [address] [place] [address], [facility] [address] [place] [address], * Chlamydia trachomatis, Neisseria gonorrhoeae, Trichomonas vaginalis, PCR - Swab, Cervix (112:00 AM EST) Chlamydia trachomatis, HANK Negative Negative [facility] Gonococcus by HANK Negative Negative [facility] Trichomonas vaginosis Negative Negative [facility] Swab Specimen from cervix or vagina / Unknown 11/22/2020 11/22/2020 Comment:SWAB Narrative [facility] ([facility]) - 11/25/2020 7:09 AM EST Performed at: ??01 - [facility] [address] ??[id number] Etl Manager: Umesh Syed MD, Phone: ??[phone] Haleigh Dempsey MD MICROBIOLOGY - GENERAL ORDERABLE S Final Result [facility] [address] [place] [address], [facility] [address] [place] [address], [place] [phone] * NuSwab BV & Ivana - Swab, Vagina (11/22/2020 12:00 AM EST) Atopobium Vaginae Low - 0 Score [facility] BVAB 2 Low - 0 Score [facility] Megasphaera 1 Low - 0 Score [facility] Comment: Calculate total score by adding the 3 individual bacterial vaginosis (BV) marker scores together. ??Total score is interpreted as follows: Total score 0-1: Indicates the absence of BV. Total score ?? 2: Indeterminate for BV. Additional clinical ? data should be evaluated to establish a ? diagnosis. Total score 3-6: Indicates the presence of BV. This test was developed and its performance characteristics determined by [facility]. ??It has not been cleared or approved by the Food and Drug Administration. Ivana Albicans, HANK Negative Negative [facility] Ivana Glabrata, HANK Negative Negative [facility] Swab Specimen from vagina / Unknown 11/22/2020 11/22/2020 Narrative [facility] - 11/25/2020 7:09 AM EST Test(s) 209326-Yfmwidl albicans, HANK; 504377-Vxpvlfb glabrata, HANK was developed and its performance characteristics determined by [facility]. It has not been cleared or approved by the Food and Drug Administration. Performed at: ??01 - [facility] [address] ??[id number] Etl Manager: Umesh Syed MD, Phone: ??[phone] Haleigh Dempsey MD MICROBIOLOGY - GENERAL ORDERABLE S Final Result [facility] [address] [place] [address], [facility] [address] [place] [address], documented in this encounter Visit Diagnoses Diagnosis Acute vaginitis- Primary Unspecified vaginitis and vulvovaginitis Vaginal odor Unspecified symptom associated with female genital organs Screening examination for STD (sexually transmitted disease) Fibroids Leiomyoma of uterus, unspecified Fibroids Leiomyoma of uterus, unspecified documented in this encounter Care Teams Buffing Machine Operator Semiautomatic Relationship Specialty Start Date End Date Drew Garibay MD [address] [place] [address] PCP - General Family Medicine 09/04/16 03/02/22 documented as of this encounter
--- OUTSIDE RECORDS SUMMARY | 2024-08-17 15:56 | XMS_ITS | Encounter Summary ---
Author Organization [facility] Address [address] [place] [address] Care Team Providers Care Radiation Control Worker Name Role Phone Drew Garibay MD Primary Care Provider Reason for Visit * Diagnostic Imaging (Routine) - Closed Specialty Diagnoses / Procedures Referred By Nasrin hernandez Referred To Contact Radiology Diagnoses Abnormal mammogram Procedures Mammo Diagnostic Left With CAD Mammo Diagnostic Digital Tomosynthesis Left With CAD Haleigh Khanna MD [address] [facility] [address] [place] [address] Phone: tel: fax: [facility] [address] [facility] [address] [place] [address] Phone: tel: Referral ID Status Reason Start Date Expiration Date Visits Re quested Visits Authorized [id number] Closed 04/04/2018 04/04/2019 1 1 Encounter Details Date Type Department Care Team (Late st Contact Info) Description 08/12/2018 1:24 PM EST - 08/12/2018 11:59 PM EST Hospital Encounter [facility] [address] [facility] [address] [place] [address] Haleigh Khanna MD [address] [facility] [address] [place] [address] Abnormal mammogram Discharge Disposition: Home or Self Care Social History Tobacco Use Types Packs/Day Years Used Date Smoking Tobacco: Never Assessed Comments No Sex and Gender Information Value [...] [facility] [address] [facility] [address] [place] [phone] Bre Crenshaw MD [address] [facility] [address] [place] [address] 12/31/2024 9:00 AM EDT Office Visit [facility] UROLOGY [address] [facility] [address] [place] [address] Oralia Saha APRN [address] [facility] [address] [place] [address] 05/12/2025 1:45 PM EDT Office Visit [facility] CARDIOLOGY [address] [facility] [address] [place] [phone] Obed Woodard MD [address] [facility] [address] [place] [address] documented as of this encounter Procedures Procedure Name Priority Date/Time Associated Diagnosis Comments MAMMO DIAGNOSTIC LEFT W CAD Routine 08/12/2018 1:58 PM EST Abnormal mammogram documented in this encounter Results * Mammo Diagnostic Left With CAD (08/12/2018 1:58 PM EST) Anatomical Region Laterality Modality Breast Left Mammography 08/12/2018 2:38 PM EST Impressions 08/12/2018 5:26 PM EST Stable grouped, round calcifications being followed in the left breast. RECOMMENDATION: Bilateral diagnostic mammogram in 6 months to include left CC and ML magnification views. BI-RADS CATEGORY 3, PROBABLY BENIGN. CAD was utilized. The standard false-negative rate of mammography is between 10% and 25%. Complex patterns or increased breast density will markedly elevate the false-negative rate of mammography. ?? A results letter, in lay terminology, will be given to the patient at the conclusion of the exam. _ Physician Order Diagnostic 6 Month follow up Mammogram and/or Breast Ultrasound. Diagnosis: Abnormal Mammogram ?? This report was finalized on 08/12/2018 5:[address] Madison Dolan MD. Narrative 08/12/2018 5:26 PM EST EXAMINATION: ??LEFT DIAGNOSTIC DIGITAL MAMMOGRAM HISTORY: 43-year-old patient undergoing left mammographic follow-up of calcifications. The patient underwent benign tomosynthesis guided core biopsy of a nodular asymmetry in the left lateral breast on 12/31/2017. Final pathology results revealed proliferative fibrocystic change without atypia. The patient also underwent stereotactic biopsy of calcifications in the left breast on 11/13/2016 revealing proliferative fibrocystic change. The patient is currently being followed for a second cluster of calcifications. She has no personal or family history of breast cancer and no current breast complaints. TECHNIQUE: Routine 2-D left CC and MLO digital mammographic images were obtained and supplemented with left CC and ML magnification views. COMPARISON: 12/31/2017, 12/11/2017, 05/21/2017, 11/13/2016, 10/26/2016, and 09/04/2016. FINDINGS: The breast tissue is heterogeneously dense, which may obscure small masses. The fibroglandular pattern is stable. The asymmetry that underwent core biopsy in the left lateral breast is no longer visualized. Magnification imaging of the left breast demonstrates stable grouped, round calcifications being followed. These calcifications have been followed since 10/26/2016. Other scattered calcifications in the left breast are unremarkable. No suspicious mammographic findings are identified. us Haleigh Khanna MD IMG MAMMOGRAPHY ORDERABLES Final Result documented in this encounter Visit Diagnoses Diagnosis Abnormal mammogram Abnormal mammogram, unspecified documented in this encounter Care Teams Radiation Control Worker Relationship Specialty Start Date End Date Drew Garibay MD [address] [place] [address] PCP - General Family Medicine 09/04/16 03/02/22 documented as of this encounter
--- OUTSIDE RECORDS SUMMARY | 2024-08-17 15:56 | XMS_ITS | Encounter Summary ---
Author Organization [facility] Address [address] [place] [address] Care Team Providers Care Group Practice Pediatrician Name Role Phone Drew Garibay MD Primary Care Provider [phone] Reason for Visit * Diagnostic Imaging (Routine) - Closed Specialty Diagnoses / Procedures Referred By Nasrin t Referred To Contact Obstetrics and Gynecology Diagnoses Fibroids Procedures US Non-ob Transvaginal Haleigh Dempsey MD [address]00 [facility] [address] [place] [address] Phone: tel: fax: [facility] [address] [place] [address] Phone: tel:[phone] fax:[phone] Referral ID Status Reason Start Date Expiration Date Visits Re quested Visits Authorized [id number] Closed 11/22/2020 11/22/2021 1 1 Encounter Details Date Type Department Care Team (Late st Contact Info) Description 12/06/2020 9:30 AM EST Ancillary Procedure [facility] [address] [place] [address] Fibroids Social History Tobacco Use Types Packs/Day [facility] [address] [facility] [address] [place] [address] Bre Crenshaw MD [address] [facility] [address] [place] [address] 12/31/2024 9:00 AM EDT Office Visit [facility] [address] [facility] [address] [place] [address] Oralia Saha APRN 1760 [facility] [address] [place] [address] 05/12/2025 1:45 PM EDT Office Visit [facility] [address] [facility] [address] [place] [id number] Obed Woodard MD 1720 [facility] [address] [place], [place] [id number] documented as of this encounter Procedures Procedure Name Priority Date/Time Associated Diagnosis Comments US NON-OB TRANSVAGINAL Routine 12/06/2020 9:35 AM EST Fibroids documented in this encounter Results * US Non-ob Transvaginal (12/06/2020 9:35 AM EST) Anatomical Region Laterality Modality Body Ultrasound 12/06/2020 9:16 AM EST Narrative 12/06/2020 4:30 PM EST PAT NAME: AUGUSTINE BROWN MED REC#: [id number] DA: [id number] PAT GEND: F PAT TYPE: O EXAM VALENCIA: [id number] REF PHYS HALEIGH DEMPSEY Indication ======== follow [...] and morphology Recommendation Follow-up as clinically indicated. Flight Manager: RT Mega(R), [facility] Physician: Haleigh Dempsey MD, FACOG Electronically signed by: Haleigh Dempsey MD, FACOG at: 16:30 Procedure Note Haleigh Dempsey MD - 12/06/2020 PAT NAME: AUGUSTINE BROWN MED REC#: [id number] DA: [id number] PAT GEND: F PAT TYPE: O EXAM VALENCIA: [id number] REF PHYS HALEIGH DEMPSEY Indication ======== follow up Fibroid. Comparison Studies The findings of this study are compared to the prior ultrasound studydated 10/20/2019 Method ======= Voluson E6, Transvaginal ultrasound examination, 3D ultrasoundexamination. View: Limited by patient body habitus and large shadowingfibroid. Uterus ====== Uterus:Visualized Uterus position:Anteverted Description of uterine malformations:none Myometrium:Homogeneous Endometrium:Uniform Cervix details:Normal Uterus tycx277 mm Uterus ap76 mm Uterus tr100 mm Uterus Kuy629.3 cm?? Endometrial thickness, total8.8 mm Uterine fibroid D181.8 mm Uterine fibroid D269.3 mm Uterine fibroid D374.1 mm Uterine fibroid lkq504.771 cm?? Uterine fibroids findings:Right Uterine fibroid D137.1 [...] shape andmorphology Recommendation Follow-up as clinically indicated. Flight Manager: RT Mega(R), [facility] Physician: Haleigh Dempsey MD, FACOG Electronically signed by: Haleigh Dempsey MD, FACOG at: 16:30 us Haleigh Dempsey MD IMG US ORDERABLES Final Result documented in this encounter Visit Diagnoses Diagnosis Fibroids Leiomyoma of uterus, unspecified documented in this encounter Care Teams Group Practice Pediatrician Relationship Specialty Start Date End Date Drew Garibay MD [address] [place] [address] PCP - General Family Medicine 09/04/16 03/02/22 documented as of this encounter
--- OUTSIDE RECORDS SUMMARY | 2024-08-17 15:56 | XMS_ITS | Encounter Summary ---
Author Organization [facility] Address [address] [place] [address] Care Team Providers Care Fuller Brush Worker Name Role Phone Drew Garibay MD Primary Care Provider [phone] Reason for Referral * Diagnostic Imaging (Routine) - Closed Specialty Diagnoses / Procedures Referred By Nasrin hernandez Referred To Contact Radiology Diagnoses Breast cancer screening by mammogram Procedures Mammo Screening Digital Tomosynthesis Bilateral With CAD Haleigh Khanna MD [address]00 [facility] [address] [place] [address] Phone: tel: fax: [address] [address] Phone: tel: Referral ID Status Reason Start Date Expiration Date Visits Re quested Visits Authorized [id number] Closed 01/09/2022 01/09/2023 1 1 Reason for Visit * Reason Comments Gynecologic Exam Encounter Details Date Type Department Care Team (Late st Contact Info) Description 01/09/2022 9:00 AM EDT Office Visit [facility] [address] [place] [address] Haleigh Khanna MD [address] [facility] [address] [place], [place] [id number] Women's annual routine gynecological examination (Primary Dx); Breast cancer screening by mammogram; Intramural leiomyoma of uterus; Vaginal odor Social History Tobacco Use Types Packs/Day Years [...] Sign Reading Time Taken Comments Blood Pressure 144/84 01/09/2022 9:04 AM EDT Pulse - - Temperature - - Respiratory Rate - - Oxygen Saturation - - Inhaled Oxygen Concentration - - Weight 90.9 kg (200 lb 6.4 oz) 01/09/2022 9:04 A M EDT Height 157.5 cm (5' 2 ) 01/09/2022 9:04 AM EDT Body Mass Index 36.65 01/09/2022 9:04 AM EDT documented in this encounter Patient Instructions * Attachments The following attachments cannot be sent through Care Everywhere. * Health Maintenance Female (Senegalese) documented in this encounter Progress Notes * Haleigh Khanna MD - 01/09/2022 9:00 AM EDT Images from the original note were not included. Gynecologic Annual Exam Note CC- Here for annual exam Subjective Leydi Brown is a 46 y.o. female established patient who presents for annual well woman exam and US for fibroid. No LMP recorded (lmp unknown). Patient has had an ablation. Her periods are absent secondary to ablation.Partner Status: Marital Status: . New Partners since last visit: no. Desires STD Screening: no. Current contraception: vasectomy The patient is happy with her current contraceptive method. The patient does have complaints today. Patient reports that she has some vaginal odor after intercourse, and some vaginal itching. Patient reports that she notices the smell often, but its more apparent after intercourse. Patient reports taking Boric acid twice a month. She has no symptoms today. She exercises regularly: no. She has concerns about domestic violence: no. OB History 2 Para 2 Term 2 AB Living 2 SAB IAB Ectopic Molar Multiple Live Births 2 Performs monthly Self-Breast Exam: no History of abnormal Pap smear: no Family history of uterine, colon or ovarian cancer: no Family history of breast cancer: no History of abnormal mammogram: yes - Fibrocystic breast - left Feelings of Anxiety or Depression: yes - Managed with medication Tobacco Usage?: No Last Pap : Last Completed Pap Smear Ordered - PAP SMEAR (Every 3 Years) Ordered on 01/09/2022 12/07/2020 Liquid-based Pap Smear, Screening 10/20/2019 Done - Negative Last mammogram: 05/20/2020 - No findings suspicious for malignancy. Last Completed Mammogram This patient has no relevant Health Maintenance data. Last colonoscopy: 11/28/2021 - Dr. Heidy STEVENSON. Polyps present - told to follow up in 5 years. Last Completed Colonoscopy This patient has no relevant Health Maintenance data. The following portions of the patient's history were reviewed and updated as appropriate: allergies, current medications, past family history, past medical history, past social history and past surgical history. Past Medical History: Diagnosis Date ??? Acid reflux ??? Hypertension ??? Hypothyroidism ??? Screening breast examination denies ??? Screening breast examination denies ??? Tubular adenoma of colon 05/18/2016 Dr Pastor Past Surgical History: Procedure Laterality Date ??? BREAST BIOPSY Left 11/2016 lt stereo bx ??? SECTION ??? COLONOSCOPY 04/20/2017 hemorrhoids ? ? D & C HYSTEROSCOPY ENDOMETRIAL ABLATION 10/21/2013 ??? ENDOSCOPY 03/2016 Normal ??? LAPAROSCOPIC CHOLECYSTECTOMY ??? TONSILLECTOMY Review of Systems Review of Systems Objective BP 144/84 (BP Location: Left arm, Patient Position: Sitting, Cuff Size: Adult) Ht 157.5 cm (62 ) Wt 90.9 kg (200 lb 6.4 oz) LMP (LMP Unknown) BMI 36.65 kg/m?? Physical Exam Vitals and nursing note reviewed. Exam conducted with a instructional consultant present. Constitutional: General: She is awake. HENT: Head: Normocephalic and atraumatic. Neck: Thyroid: No thyroid mass, thyromegaly or thyroid tenderness. Cardiovascular: Rate and Rhythm: Normal rate. Heart sounds: No murmur heard. No friction rub. No gallop. Pulmonary: Effort: Pulmonary effort is normal. Breath sounds: Normal breath sounds. No stridor. No wheezing, rhonchi or rales. Chest: Chest wall: No mass or tenderness. Breasts: Right: Normal. No bleeding, inverted nipple, mass, nipple discharge, skin change, tenderness, axillary adenopathy or supraclavicular adenopathy. Left: Normal. No bleeding, inverted nipple, mass, nipple discharge, skin change, tenderness, axillary adenopathy or supraclavicular adenopathy. Abdominal: Palpations: Abdomen is soft. Tenderness: There is no guarding or rebound. Hernia: There is no hernia in the left inguinal area or right inguinal area. Genitourinary: General: Normal vulva. Pubic Area: No rash. Labia: Right: No rash, tenderness, lesion or injury. Left: No rash, tenderness, lesion or injury. Urethra: No prolapse, urethral swelling or urethral lesion. Vagina: No foreign body. No vaginal discharge, erythema, tenderness, bleeding or lesions. Cervix: No cervical motion tenderness, discharge, friability, lesion, erythema or cervical bleeding. Uterus: Normal. Not deviated, not enlarged, not fixed and not tender. Adnexa: Right adnexa normal and left adnexa normal. Right: No mass, tenderness or fullness. Left: No mass, tenderness or fullness. Rectum: No external hemorrhoid. Musculoskeletal: Cervical back: Normal range of motion. Lymphadenopathy: Upper Body: Right upper body: No supraclavicular or axillary adenopathy. Left upper body: No supraclavicular or axillary adenopathy. Skin: General: Skin is warm. Neurological: Mental Status: She is alert and oriented to person, place, and time. Psychiatric: Mood and Affect: Mood and affect normal. Speech: Speech normal. Assessment Assessment Problem List Items Addressed This Visit Genitourinary and Reproductive Intramural leiomyoma of uterus Other Visit Diagnoses Women's annual routine gynecological examination - Primary Relevant Orders Pap IG, HPV-hr Breast cancer screening by mammogram Relevant Orders Mammo Screening Digital Tomosynthesis Bilateral With CAD Vaginal odor Relevant Orders POC VIDA Prep (Completed) POC Wet Prep (Completed) Plan 1. Reviewed monthly self breast exams. Instructed to call with lumps, pain, or breast discharge. 2. Ordered Mammogram today 3. RTC in 1 year or PRN with problems. 4. Fibroid stable on u/s. 5. Will try boric acid twice weekly to see if this helps with the odor. Haleigh Khanna MD 01/09/2022 documented in this encounter Plan of Treatment Upcoming Encounters Date Type Department Care Team (Late st Contact Info) Description 09/18/2024 3:30 PM EST Office Visit [facility] & [facility]COL[facility]Y [address] [facility] [address] [place] [address] Bre Crenshaw MD [address] [facility] [address] [address] [place] [address] 12/31/2024 9:00 AM EDT Office Visit [facility] [address] [facility] [address] [place] [address] Oralia Saha APRN [address]60 [facility] [address] [place] [address] 05/12/2025 1:45 PM EDT Office Visit [facility] [address] [facility] [address] [place] [address] Obed Woodard MD [address] [facility] [address] [place], [place] [phone] Scheduled Orders Name Type Priority Associated Diagnoses Orde r Schedule Pap IG, HPV-hr Pathology and Cytology Routine Women's annual routine gynecological examination Expected: 01/09/2022 (Approximate), Expires: 01/09/2023 documented as of this encounter Procedures Procedure Name Priority Date/Time Associated Diagnosis Comments POCT WET MOUNT (AKA FERN TEST, VAGINAL FLUID) Routine 01/09/2022 12:43 PM EDT Vaginal odor POCT VIDA PREP Routine 01/09/2022 12:43 PM EDT Vaginal odor documented in this encounter Results * (ABNORMAL) [...] Khanna MD IMG MAMMOGRAPHY ORDERABLES Final Result * POC Wet Prep (01/09/2022 12:43 PM EDT) Wet Prep no clue cells or trich noted [facility] Vaginal Fluid 01/09/2022 12: 43 PM EDT us Haleigh Khanna MD POINT OF CARE TEST ORDERABLES Fi nal Result Performing Organization Address City/[facility] Co de Phone Number [facility]
[address] [place] [address], [place] [phone] * POC VIDA Prep (01/09/2022 12:43 PM EDT) VIDA Prep No yeast or hyphal elements seen No yeast or hyphal elements seen [facility] Specimen from vagina (specimen) 01/09/2022 12:43 PM EDT us Haleigh Khanna MD POINT OF CARE TEST ORDERABLES Fi nal Result Performing Organization Address [facility] Co de Phone Number [facility]
[address] [place] [address], [place] [phone] documented in this encounter Visit Diagnoses Diagnosis Women's annual routine gynecological examination- Primary Breast cancer screening by mammogram Intramural leiomyoma of uterus Vaginal odor Unspecified symptom associated with female genital organs Breast cancer screening by mammogram documented in this encounter Care Teams Fuller Brush Worker Relationship Specialty Start Date End Date Drew Garibay MD [address] [place] [address] PCP - General Family Medicine 09/04/16 03/02/22 documented as of this encounter
--- OUTSIDE RECORDS SUMMARY | 2024-08-17 15:56 | XMS_ITS | Encounter Summary ---
Author Organization [facility] Address [address] [place] [address] Care Team Providers Care Automotive Service Technician Name Role Phone Drew Garibay MD Primary Care Provider [phone] Reason for Visit * (Routine) - Closed Specialty Diagnoses / Procedures Referred By Nasrin hernandez Referred To Contact Radiology Diagnoses Abnormal mammogram Procedures Mammo Diagnostic Left With CAD Mammo Diagnostic Left Without CAD Haleigh Khanna MD [address] [facility] [address] [place] [address] Phone: tel: fax: Referral ID Status Reason Start Date Expiration Date Visits Re quested Visits Authorized [id number] Closed 09/13/2016 09/13/2017 1 1 Encounter Details Date Type Department Care Team (Late st Contact Info) Description 10/26/2016 3:05 PM EST - 10/26/2016 11:59 PM [facility] Encounter [facility] [address] [facility] [address] [place] [address] Haleigh Khanna MD [address] [facility] [address] [place] [address] Abnormal mammogram Discharge Disposition: Home or Self [facility] [address] [facility] [address] [place] [address] Bre Crenshaw MD [address] [facility] [address] [place] [address] 12/31/2024 9:00 AM EDT Office Visit [facility] [address] [facility] [address] [place] [address] Oralia Saha APRN 1760 [facility] [address] [place] [address] 05/12/2025 1:45 PM EDT Office Visit [facility] CARDIOLOG[facility] [address] [facility] [address] [place] [address] Obed Woodard MD 1720 [facility] [address] [place], [place] [phone] documented as of this encounter Procedures Procedure Name Priority Date/Time Associated Diagnosis Comments MAMMO DIAGNOSTIC LEFT W CAD Routine 10/26/2016 3:24 PM EST Abnormal mammogram documented in this encounter Results * (ABNORMAL) Mammo Diagnostic Left With CAD (10/26/2016 3:24 PM EST) Anatomical Region Laterality Modality Breast Left Mammography 10/26/2016 3:42 PM EST Impressions 10/26/2016 4:32 PM EST Two groups of round and amorphous calcifications in the left central breast. RECOMMENDATION: Stereotactic biopsy of the denser group of calcifications that are located more inferiorly in the left central breast. If these calcifications prove benign, then short interval followup with magnification imaging is recommended for the second group of faint calcifications in the left central breast. BI-RADS CATEGORY IV, SUSPICIOUS. The standard false-negative rate of mammography is between 10% and 25%. Complex patterns or increased breast density will markedly elevate the false-negative rate of mammography. ?? A results letter, in lay terminology, will be given to the patient at the conclusion of the exam. Physicians Order Stereotactic/Tomosynthesis Guided Core Needle Breast Biopsy Diagnosis: Abnormal Mammogram This report was finalized on 10/26/2016 4:[address] Madison Dolan MD. Narrative 10/26/2016 4:32 PM EST LEFT DIAGNOSTIC MAMMOGRAM-10/26/2016: HISTORY: 41-year-old patient recalled from screening mammography dated 09/04/2016 for calcifications in the left breast. TECHNIQUE: Left CC and ML magnification views were obtained. COMPARISON: Mammograms dated 09/04/2016, 09/02/2014, and 08/17/2014. FINDINGS: Magnification imaging of the left central breast demonstrates grouped round and amorphous calcifications. There are two separate groups of calcifications. The more superior group is more faint in appearance. Stereotactic biopsy of denser, more inferior cluster is recommended. us Haleigh Khanna MD IMG MAMMOGRAPHY ORDERABLES Final Result documented in this encounter Visit Diagnoses Diagnosis Abnormal mammogram Abnormal mammogram, unspecified documented in this encounter Care Teams Automotive Service Technician Relationship Specialty Start Date End Date Drew Garibay MD [address] [place] [address] PCP - General Family Medicine 09/04/16 03/02/22 documented as of this encounter
--- OUTSIDE RECORDS SUMMARY | 2024-08-17 15:56 | XMS_ITS | Encounter Summary ---
Author Organization [facility] Address [address] [place] [address] Care Team Providers Care Registered Dental Assistant Rda Name Role Phone Unavailable Primary Care Provider Unavailabl e Encounter Details Date Type Department Care Team (Late st Contact Info) Description 10/21/2013 Conversion Encounter [facility] HISTORICAL CONV [address] [place] [address] Interface, See Report Social History Tobacco Use Types Packs/Day Years Used Date Smoking Tobacco: Never Assessed Comments Unknown Sex and Gender Information Value Date Recorded Sex Assigned at Not on file Legal Sex Female 10:43 AM EDT Gender Identity Not on file Sexual Orientation Not on file documented as of this encounter Plan of Treatment Upcoming Encounters Date Type Department Care Team (Late st Contact Info) Description 09/18/2024 3:30 PM EST Office Visit [facility] & [facility]COLOGY [address] [facility] [address] [place] [address] Bre Crenshaw MD [address] [facility] [address] [place] [address] 12/31/2024 9:00 AM EDT Office Visit [facility] UROLOGY [address] [facility] [address] [place] [address] Oralia Saha APRN [address]60 [facility] [address] [place], [place] [phone] 05/12/2025 1:45 PM EDT Office Visit [facility] CARDIOLOGY [address] [place] [address] Obed Woodard MD 1720 [facility] [address] [place] [address] documented as of this encounter Procedures Procedure Name Priority Date/Time Associated Diagnosis Comments CONVERTED (HISTORICAL) SURGICAL PATHOLOGY Routine 10/21/2013 2:24 PM EST documented in this encounter Results * Converted Surgical Pathology (10/21/2013 2:24 PM EST) 10/21/2013 2:24 PM EST Narrative [facility] - 10/22/2013 12:36 PM EST [facility] [address] [place] [address] SURGICAL PATHOLOGY REPORT Patient Name: AUGUSTINE BROWN MR#: [id number] : 1975 Gender: F Ordering Physician: GUILLE DEMPSEY Copy To: [facility] Location: [facility] ([facility] Collected: 10/21/2013 Received: 10/21/2013 Reported: 10/22/2013 Clinical Diagnosis and History The working history is menorrhagia and mid cycle pelvic pain. Final Diagnosis 1. ENDOCERVICAL CURETTINGS: ? Benign endocervical glands. 2. ENDOMETRIAL CURETTINGS: ? Mixed hormonal effect. MHB/rw Amendments: Electronically Signed Out By AJ NARVAEZ Specimen(s) Received: 1: Endocervix, curettage 2: Endometrium, curetage Gross Description Specimen 1 received in formalin labeled endocervical curettings is a 2.5 x 2.5 x 0.4cm aggregate of bloody mucus wrapped and submitted in toto in cassette 1. Specimen 2 received in formalin labeled endometrial curettings is a 2.5 x 2.5 x 0.3cm aggregate of red/pink soft tissue fragments and blood wrapped and submitted in toto in cassette 2. HBM/rw Microscopic Description Specimen 1 shows benign cervical epithelium mixed with mucus and blood. ?? Specimen 2 shows tubular to irregular glands lined by a simple columnar to minimally pseudostratified lining without significant crowding or complexity. MHB/rw Procedures/Addenda us See Report Interface PATHOLOGY/CYTOLOGY ORDERABL ES Final Result [facility] [address] [place] [address], documented in this encounter Visit Diagnoses Not on filedocumented in this encounter
--- OUTSIDE RECORDS SUMMARY | 2024-08-17 15:56 | XMS_ITS | Encounter Summary ---
[facility] Address [address] [place] [address] Care Team Providers Care Flour Blender Helper Name Role Phone Drew Garibay MD Primary Care Provider Encounter Details Date Type Department Care Team (Late st Contact Info) Description 11/16/2016 Telephone [facility] [address] [address] Keila Cisse RN MSN Social [...] Encounter - Keila Cisse RN MSN - 11/16/2016 3:48 PM EST 11.16.16 @ 1545:Pathology results and recommendation given. Verbalizes understanding. Denies discomfort. Denies any signs and symptoms of infection. documented in this encounter Plan of Treatment Upcoming Encounters Date Type Department Care Team (Late st Contact Info) Description 09/18/2024 3:30 PM EST Office Visit [facility] HEMATOLOGY & ONCOLOGY [address] [facility] [address] [place] [phone] Bre Crenshaw MD [address] [facility] [address] [place] [address] 12/31/2024 9:00 AM EDT Office Visit [facility] UROLOGY [address] [facility] [address] [place] [address] Oralia Saha APRN [address] [facility] [address] [place], [place] [address] 05/12/2025 1:45 PM EDT Office Visit [facility] CARDIOLOGY [address] [facility] [address] [place] [phone] Obed Woodard MD [address] [facility] [address] [place], [place] [id number] documented as of this encounter Visit Diagnoses Not on filedocumented in this encounter Care Teams Flour Blender Helper Relationship Specialty Start Date End Date Drew Garibay MD [address] [place] [address] PCP - General Family Medicine 09/04/16 03/02/22 documented as of this encounter
--- OUTSIDE RECORDS SUMMARY | 2024-08-17 15:56 | XMS_ITS | Encounter Summary ---
[facility] Address [address] [place] [address] Care Team Providers Care Hospital Cleaner Name Role Phone Drew Garibay MD Primary Care Provider Encounter Details Date Type Department Care Team (Late Contact Info) Description 01/01/2018 Telephone [facility] [address] [facility] [address] Yanet Hayes R.T.(R) Social History Tobacco Use Types Packs/Day Years Used Date Smoking Tobacco: Never Assessed Comments No Sex and Gender Information Value Date Recorded Sex Assigned at Not on file Legal Sex Female 10:43 AM EDT Gender Identity Not on file Sexual Orientation Not on file documented as of this encounter Miscellaneous Notes * Telephone Encounter - Yanet Hayes R.T.(R) - 01/01/2018 1:26 PM EDT Informed patient of benign biopsy results and recommendation of 6 month follow up mammogram. documented in this encounter Plan of Treatment Upcoming Encounters Date Type Department Care Team (Late Contact Info) Description 09/18/2024 3:30 PM EST Office Visit [facility] HEMATOLOGY & ONCOLOGY [address] [facility] [address] [place] [phone] Bre Crenshaw MD [address] [facility] [address] [place] [address] 12/31/2024 9:00 AM EDT Office Visit [facility] UROLOGY [address] [facility] [address] [place] [address] Oralia Saha APRN [address] [facility] [address] [place], [place] [id number] 05/12/2025 1:45 PM EDT Office Visit [facility] CARDIOLOGY [address] [facility] [address] [place] [address] Obed Woodard MD [address] [facility] [address] [place], [place] [id number] documented as of this encounter Visit Diagnoses Not on filedocumented in this encounter Care Teams Hospital Cleaner Relationship Specialty Start Date End Date Drew Garibay MD [address] [place] [address] PCP - General Family Medicine 09/04/16 03/02/22 documented as of this encounter
--- OUTSIDE RECORDS SUMMARY | 2024-08-17 15:56 | XMS_ITS | Encounter Summary ---
[facility] Address [address] [place] [address] Care Team Providers Care Solutions Manager Name Role Phone Drew Garibay MD Primary Care Provider [phone] Reason for Referral * Diagnostic Imaging (Routine) - Closed Specialty Diagnoses / Procedures Referred By Contac t Referred To Contact Radiology Diagnoses Visit for screening mammogram Procedures Mammo Screening Digital Tomosynthesis Bilateral With CAD Haleigh Khanna MD [address] [facility] [address] [place] [address] Phone: tel: fax: [facility] [address] [facility] [address] [place] [address] Phone: tel: Referral ID Status Reason Start Date Expiration Date Visits Re quested Visits Authorized [id number] Closed 02/25/2020 02/24/2021 1 1 Reason for Visit * Diagnostic Imaging (Routine) - Closed Specialty Diagnoses / Procedures Referred By Contac t Referred To Contact Radiology Diagnoses Visit for screening mammogram Procedures Mammo Screening Digital Tomosynthesis Bilateral With CAD Haleigh Khanna MD [address] [facility] [address] [place] [address] Phone: tel: fax: [facility] [address] [facility] [address] [place] [address] Phone: tel: Referral ID Status Reason Start Date Expiration Date Visits Re quested Visits Authorized [id number] Closed 02/25/2020 02/24/2021 1 1 Encounter Details Date Type Department Care Team (Late st Contact Info) Description 05/20/2020 7:46 AM EDT - 05/20/2020 11:59 PM EDT Hospital Encounter [facility] [address] [place] [address] Haleigh Khanna MD [address] [facility] [address] [place] [address] Visit for screening mammogram Discharge Disposition: Home or Self Care [...] [facility] HEMATOLOGY & ONCOLOGY [address] [facility] [address] [place] [phone] Bre Crenshaw MD [address] [facility] [address] [place] [address] 12/31/2024 9:00 AM EDT Office Visit [facility] UROLOGY [address] [facility] [address] [place] [address] Oralia Saha APRN [address]60 [facility] [address] [place], [place] [phone] 05/12/2025 1:45 PM EDT Office Visit [facility]OLOG[facility] [address] [facility] [address] [place] [address] Obed Woodard MD [address] [place] [address] documented as of this encounter Procedures Procedure Name Priority Date/Time Associated Diagnosis Comments MAMMO SCREENING DIGITAL TOMOSYNTHESIS BILATERAL W CAD Routine 05/20/2020 8:23 AM EDT Visit for screening mammogram documented in this encounter Results * Mammo Screening Digital Tomosynthesis Bilateral With CAD (05/20/2020 8:23 AM EDT) Anatomical Region Laterality Modality Breast N/A Mammography 05/24/2020 3:00 PM EDT Impressions 05/24/2020 3:06 PM EDT No findings suspicious for malignancy. ACR BI-RADS CATEGORY: ??1, NEGATIVE RECOMMENDATION: Yearly mammogram, yearly clinical breast exam, and encourage self breast awareness. CAD was used. The standard false negative rate of mammography is between 10% and 25%. Complex patterns or increased breast density will markedly elevate the false negative rate of mammography. A letter, in lay terminology, with the results of this exam will be mailed to the patient. ?? If there is a palpable area of concern, biopsy should be considered regardless of imaging findings. This report was finalized on 05/24/2020 3:06 PM by Corrine Redd MD. Narrative 05/24/2020 3:06 PM EDT ROUTINE DIGITAL SCREENING MAMMOGRAM WITH TOMOSYNTHESIS HISTORY: Routine screening. IMAGE COMPARISON: ??Extending to 2013 TECHNIQUE: ??Low dose full field digital breast tomosynthesis imaging was performed with 2D and 3D acquisitions consisting of bilateral CC and MLO views. FINDINGS: There are scattered fibroglandular tissues. The fibroglandular pattern appears stable. ??There is no mass, worrisome microcalcifications, or architectural distortion to suggest development of malignancy. Haleigh Khanna MD IMG MAMMOGRAPHY ORDERABLES Final Result documented in this encounter Visit Diagnoses Diagnosis Visit for screening mammogram documented in this encounter Care Teams Solutions Manager Relationship Specialty Start Date End Date Drew Garibay MD [address] [place] [address] PCP - General Family Medicine 09/04/16 03/02/22 documented as of this encounter
--- OUTSIDE RECORDS SUMMARY | 2024-08-17 15:56 | XMS_ITS | Encounter Summary ---
Author Organization [facility] Address [address] [place] [address] Care Team Providers Care Director Wholesale Name Role Phone Drew Garibay MD Primary Care Provider [phone] Reason for Referral * (Routine) - Closed Specialty Diagnoses / Procedures Referred By Nasrin hernandez Referred To Contact Radiology Diagnoses Visit for screening mammogram Procedures Mammo Screening Digital Tomosynthesis Bilateral With CAD Haleigh Khanna MD [address] [facility] [place] [address] Phone: tel: fax: Referral ID Status Reason Start Date Expiration Date Visits Re quested Visits Authorized [id number] Closed 06/19/2016 12/16/2016 1 1 Reason for Visit * (Routine) - Closed Specialty Diagnoses / Procedures Referred By Nasrin hernandez Referred To Contact Radiology Diagnoses Visit for screening mammogram Procedures Mammo Screening Digital Tomosynthesis Bilateral With CAD Haleigh Khanna MD [address] [place] [address] Phone: tel: fax: Referral ID Status Reason Start Date Expiration Date Visits Re quested Visits Authorized [id number] Closed 06/19/2016 12/16/2016 1 1 Encounter Details Date Type Department Care Team (Late st Contact Info) Description 09/04/2016 3:26 PM EST - 09/04/2016 11:59 PM EST Hospital Encounter [facility] [address] [place] [address] Haleigh Khanna MD [address] [facility] [address] [place] [address] Visit for screening mammogram Discharge Disposition: Home [...] [facility] HEMATOLOG[facility] & [facility] [address] [facility] [address] [place] [phone] Bre Crenshaw MD [address] [facility] [address] [place] [address] 12/31/2024 9:00 AM EDT Office Visit [facility] UROLOGY [address] [facility] [address] [place] [address] Oralia Saha APRN [address] [facility] [address] [place] [address] 05/12/2025 1:45 PM EDT Office Visit [facility] CARDIOLOGY [address] [facility] [address] [place] [phone] Obed Woodard MD [address] [facility] [address] [place], [place] [phone] documented as of this encounter Procedures Procedure Name Priority Date/Time Associated Diagnosis Comments MAMMO SCREENING DIGITAL TOMOSYNTHESIS BILATERAL W CAD Routine 09/04/2016 3:59 PM EST Visit for screening mammogram documented in this encounter Results * (ABNORMAL) Mammo Screening Digital Tomosynthesis Bilateral With CAD (09/04/2016 3:59 PM EST) Anatomical Region Laterality Modality Breast N/A Mammography 09/05/2016 11:4 9 AM EST Impressions 09/05/2016 11:50 AM EST 1. Stable mammographic appearance of the right breast with no findings suspicious for malignancy. 2. Calcifications in the left breast. Recommend additional imaging. BIRADS CATEGORY: ??0, INCOMPLETE Need additional imaging evaluation. RECOMMENDATION: ??Left ML and CC magnification views. CAD was utilized. The standard false-negative rate of mammography is between 10% and 25%. Complex patterns or increased breast density will markedly elevate the false-negative rate of mammography. ?? A letter, in lay terminology, with the results of this exam will be mailed to the patient. ?? The patient will be contacted by our office to schedule for the additional imaging evaluation. ??Please accept this as sufficient order for the additional imaging evaluation. Physician Order Diagnostic Mammogram with Breast Ultrasound if needed. Diagnosis: ?? Abnormal Mammogram This report was finalized on 09/05/2016 11:[address] Maegan Yu MD. Narrative 09/05/2016 11:50 AM EST BILATERAL DIGITAL SCREENING MAMMOGRAM WITH TOMOSYNTHESIS CLINICAL INDICATION: ??41-year-old patient with no current breast complaints and no personal or family history of breast cancer. The patient was last imaged at our facility on 09/02/2014 where short interval mammographic follow-up of the left breast was recommended. The patient did not return to our facility for follow-up imaging. TECHNIQUE: Low dose full field digital breast tomosynthesis imaging was performed with 2D and 3D acquisitions. ? COMPARISON: 09/02/2014 and 08/17/2014 FINDINGS: ??There are scattered areas of fibroglandular density. The bilateral fibroglandular pattern appears stable. This includes asymmetric tissue in the superior aspect of the left breast. A few scattered calcifications in the left breast are stable. There is however a new group of calcifications present in the central left breast for which additional imaging is recommended. No spiculated mass or area of architectural distortion is seen. us Haleigh Khanna MD IMG MAMMOGRAPHY ORDERABLES Final Result documented in this encounter Visit Diagnoses Diagnosis Visit for screening mammogram documented in this encounter Care Teams Director Wholesale Relationship Specialty Start Date End Date Drew Garibay MD [address] [place] [address] PCP - General Family Medicine 09/04/16 03/02/22 documented as of this encounter
--- OUTSIDE RECORDS SUMMARY | 2024-08-17 15:56 | XMS_ITS | Encounter Summary ---
[facility] Address [address] [place] [address] Care Team Providers Care Stock Parts Fabricator Name Role Phone Drew Garibay MD Primary Care Provider [phone] Reason for Visit * Reason Comments Med Refill Encounter Details Date Type Department Care Team (Late st Contact Info) Description 10/04/2021 Refill [facility] O[facility] [address] [address] Kaylie Thomas, MICROFILM PROCESSOR [address] [place] [id number] Social History Tobacco Use Types Packs/Day Years [...] [facility] HEMATOLOG[facility] & ON[facility]OGY [address] [facility] [address] [place] [address] Bre Crenshaw MD [address] [facility] [address] [place] [address] 12/31/2024 9:00 AM EDT Office Visit [facility] UROLOGY [address] [facility] [address] [place], [place] [phone] Oralia Saha APRN [address]60 [facility] [address] [place], [place] [phone] 05/12/2025 1:45 PM EDT Office Visit [facility] CARDIOLOGY [address] [facility] [address] [place] [address] Obed Woodard MD [address]20 [facility] [address] [place], [place] [phone] documented as of this encounter Visit Diagnoses Not on filedocumented in this encounter Care Teams Stock Parts Fabricator Relationship Specialty Start Date End Date Drew Garibay MD [address] [place] [address] PCP - General Family Medicine 09/04/16 03/02/22 documented as of this encounter
--- OUTSIDE RECORDS SUMMARY | 2024-08-17 15:56 | XMS_ITS | Encounter Summary ---
Author Organization [facility] Address [address] [place] [address] Care Team Providers Care Branding Machine Tender Name Role Phone Drew Garibay MD Primary Care Provider [phone] Reason for Referral * (Routine) - Closed Specialty Diagnoses / Procedures Referred By Nasrin hernandez Referred To Contact Radiology Diagnoses Abnormal mammogram Procedures Mammo Diagnostic Digital Tomosynthesis Left With CAD Haleigh Khanna MD [address] [place] [address] Phone: tel: fax: Referral ID Status Reason Start Date Expiration Date Visits Re quested Visits Authorized [id number] Closed 11/13/2016 11/13/2017 1 1 Reason for Visit * (Routine) - Closed Specialty Diagnoses / Procedures Referred By Nasrin hernandez Referred To Contact Radiology Diagnoses Abnormal mammogram Procedures Mammo Diagnostic Digital Tomosynthesis Left With CAD Haleigh Khanna MD [address] [place] [address] Phone: tel: fax: Referral ID Status Reason Start Date Expiration Date Visits Re quested Visits Authorized [id number] Closed 11/13/2016 11/13/2017 1 1 Encounter Details Date Type Department Care Team (Late st Contact Info) Description 05/21/2017 7:52 AM EDT - 05/21/2017 11:59 PM EDT Hospital Encounter [facility] [address] [facility] [address] [place] [address] Haleigh Khanna MD [address] [facility] [address] [place] [address] Abnormal mammogram Discharge Disposition: Home or Self [...] [facility] HEMATOLOGY & ONCOLOGY [address] [facility] [address] [place] [address] Bre Crenshaw MD [address] [facility] [address] [place] [address] 12/31/2024 9:00 AM EDT Office Visit [facility] UROLOGY [address] [facility] [address] [place] [address] Oralia Saha APRN [address] [facility] [address] [place] [address] 05/12/2025 1:45 PM EDT Office Visit [facility] CARDIOLOGY [address] [facility] [address] [place] [address] Obed Woodard MD [address] [facility] [address] [place], [place] [phone] documented as of this encounter Procedures Procedure Name Priority Date/Time Associated Diagnosis Comments MAMMO DIAGNOSTIC DIGITAL TOMOSYNTHESIS LEFT W CAD Routine 05/21/2017 8:13 AM EDT Abnormal mammogram documented in this encounter Results * Mammo Diagnostic Digital Tomosynthesis Left With CAD (05/21/2017 8:13 AM EDT) Anatomical Region Laterality Modality Breast Left Mammography 05/21/2017 8:38 AM EDT Impressions 05/21/2017 4:51 PM EDT Stable benign-appearing grouped calcifications being followed in the left central breast. RECOMMENDATION: Continued short interval left mammographic followup in 6 months with magnification imaging. The patient will be due for bilateral diagnostic mammographic imaging at that time. BI-RADS CATEGORY 3, PROBABLY BENIGN. CAD was utilized. The standard false-negative rate of mammography is between 10% and 25%. Complex patterns or increased breast density will markedly elevate the false-negative rate of mammography. ?? A results letter, in lay terminology, will be given to the patient at the conclusion of the exam. Physician Order Diagnostic 6 Month follow up Mammogram and/or Breast Ultrasound. Diagnosis: Abnormal Mammogram ?? This report was finalized on 05/21/2017 4:[address] Madison Dolan MD. Narrative 05/21/2017 4:51 PM EDT LEFT DIAGNOSTIC MAMMOGRAM WITH TOMOSYNTHESIS: HISTORY: 42-year-old patient who presents for baseline left mammographic imaging status post benign stereotactic biopsy performed on 11/13/2016 revealing proliferative fibrocystic change with calcifications. A second group of calcifications located centrally in the left breast is undergoing short interval followup. The patient has no personal or family history of breast cancer and no current breast complaints. TECHNIQUE: ??Left breast low dose full field digital CC and MLO imaging was performed with 2D and 3D acquisitions. Left CC and ML medication views were also obtained. COMPARISON: 11/13/2016, 10/26/2016, 09/04/2016, and 08/17/2014. FINDINGS: There are scattered areas of fibroglandular density. The fibroglandular pattern and nodularity are stable. Grouped round and amorphous calcifications being followed in the left central breast are stable. There is a postbiopsy marking clip in the left breast indicating the site of biopsy-proven fibrocystic change. Other scattered calcifications are unremarkable. No suspicious mammographic findings are identified. us Haleigh Khanna MD IMG MAMMOGRAPHY ORDERABLES Final Result documented in this encounter Visit Diagnoses Diagnosis Abnormal mammogram Abnormal mammogram, unspecified documented in this encounter Care Teams Branding Machine Tender Relationship Specialty Start Date End Date Drew Garibay MD [facility] [place] [address] PCP - General Family Medicine 09/04/16 03/02/22 documented as of this encounter
--- OUTSIDE RECORDS SUMMARY | 2024-08-17 15:56 | XMS_ITS | Encounter Summary ---
Author Organization [facility] Address [address] [place] [address] Care Team Providers Care Semiconductor Lab Technician Name Role Phone Drew Garibay MD Primary Care Provider [phone] Reason for Referral * (Routine) - Closed Specialty Diagnoses / Procedures Referred By Nasrin hernandez Referred To Contact Radiology Diagnoses Abnormal mammogram Procedures Mammo Post Clip Placement Left Haleigh Khanna MD [address] [address] Phone: tel: fax: Referral ID Status Reason Start Date Expiration Date Visits Re quested Visits Authorized [id number] Closed 12/31/2017 12/31/2018 1 1 Reason for Visit * (Routine) - Closed Specialty Diagnoses / Procedures Referred By Nasrin hernandez Referred To Contact Radiology Diagnoses Abnormal mammogram Procedures Mammo Post Clip Placement Left Haleigh Khanna MD [address] [address] Phone: tel: fax: Referral ID Status Reason Start Date Expiration Date Visits Re quested Visits Authorized [id number] Closed 12/31/2017 12/31/2018 1 1 Encounter Details Date Type Department Care Team (Latest Contact Info) Description 12/31/2017 12:58 PM EDT - 12/31/2017 11:59 PM EDT Hospital Encounter [facility] [address] [facility] [address] [place] [address] Abnormal mammogram Discharge Disposition: Home or Self [...] [facility] [address] [facility] [address] [place] [address] Bre Crenshaw MD [address] [facility] [address] [place] [address] 12/31/2024 9:00 AM EDT Office Visit [facility] [address] [facility] [address] [place] [address] Oarlia Saha APRN [address] [facility] [address] [place] [address] 05/12/2025 1:45 PM EDT Office Visit [facility] [address] [facility] [address] [place] [id number] Obed Woodard MD [address] [facility] [address] [place] [address] documented as of this encounter Procedures Procedure Name Priority Date/Time Associated Diagnosis Comments MAMMO POST DEVICE PLACEMENT LEFT Routine 12/31/2017 1:34 PM EDT Abnormal mammogram documented in this encounter Results * Mammo Post Clip Placement Left (12/31/2017 1:34 PM EDT) Anatomical Region Laterality Modality Breast Left Mammography 01/01/2018 3:39 PM EDT Narrative 01/02/2018 8:29 AM EDT EXAMINATION: ??10G SENO-RX VACUUM ASSISTED TOMOGRAPHIC BIOPSY HISTORY: Asymmetry lateral left breast PROCEDURE: ??Written and verbal consent was obtained for tomographic biopsy of asymmetry. ?? Time-out was observed to verify patient's identity and correct location of the breast abnormality. ??The breast was sterilized with Chloraprep and 6 cc1% lidocaine with and without epinephrine was utilized for local anesthesia. ??A small skin incision was made with a scalpel and a 10 gauge Seno-Rx biopsy probe was advanced into the breast. ??The position ot the needle was confirmed with tomographic images. ??12 core samples were obtained at the biopsy site. ?? A postbiopsy marking clip was placed. ??Routine CC and ML mammographic images were obtained to document clip position and postbiopsy changes. These images revealed accurate clip placement. Upon completion of the procedure, compression was applied to the biopsy site until all appreciable bleeding subsided and a sterile dressing was applied. ??Post biopsy instructions were reviewed with the patient by our breast care nurse. ??A written copy of these instructions was also given to the patient. ??The patient tolerated the procedure well and no immediate complications occurred. SUMMARY: ??10 gauge tomographic and vacuum assisted core biopsy of asymmetry located lateral left breast. ??A marking clip was placed at the biopsy site. ??Pathology results are pending. PATHOLOGY: Proliferative fibrocystic change with adenosis and without atypia. Result is concordant. RECOMMENDATION: 6 month follow-up diagnostic left mammogram. ___ Physician Order: Diagnostic six month followup left mammogram with breast ultrasound if needed. ?? Diagnosis: ??Abnormal Mammogram. This report was finalized on 01/02/2018 8:[address] Lien Phan MD. us Lien Phan MD IMG MAMMOGRAPHY ORDERABLES Final Result documented in this encounter Visit Diagnoses Diagnosis Abnormal mammogram Abnormal mammogram, unspecified documented in this encounter Care Teams Semiconductor Lab Technician Relationship Specialty Start Date End Date Drew Garibay MD [address] [place] [address] PCP - General Family Medicine 09/04/16 03/02/22 documented as of this encounter
--- OUTSIDE RECORDS SUMMARY | 2024-08-17 15:56 | XMS_ITS | Encounter Summary ---
Author Organization [facility] Address [address] [place] [address] Care Team Providers Care Communications Billing Analyst Name Role Phone Drew Garibay MD Primary Care Provider [phone] Reason for Referral * Diagnostic Imaging (Routine) - Closed Specialty Diagnoses / Procedures Referred By Contac t Referred To Contact Radiology Diagnoses Abnormal mammogram Procedures Mammo Diagnostic Digital Tomosynthesis Bilateral With CAD Haleigh Khanna MD [address] [facility] [address] [place] [address] Phone: tel: fax: [facility] [address] [facility] [address] [place] [address] Phone: tel: Referral ID Status Reason Start Date Expiration Date Visits Re quested Visits Authorized [id number] Closed 08/12/2018 08/12/2019 1 1 Reason for Visit * Diagnostic Imaging (Routine) - Closed Specialty Diagnoses / Procedures Referred By Contac t Referred To Contact Radiology Diagnoses Abnormal mammogram Procedures Mammo Diagnostic Digital Tomosynthesis Bilateral With CAD Haleigh Khanna MD [address] [facility] [address] [place] [address] Phone: tel: fax: [facility] [address] [facility] [address] [place] [address] Phone: tel: Referral ID Status Reason Start Date Expiration Date Visits Re quested Visits Authorized [id number] Closed 08/12/2018 08/12/2019 1 1 Encounter Details Date Type Department Care Team (Late st Contact Info) Description 02/10/2019 2:08 PM EDT - 02/10/2019 11:59 PM EDT Hospital Encounter [facility] [address] [facility] [address] [place] [address] Haleigh Khanna MD [address] [facility] [address] [place] [id number] Abnormal mammogram Discharge Disposition: Home or Self [...] [facility] [address] [facility] [address] [place] [address] Bre Crenshaw MD [address] [facility] [address] [place] [address] 12/31/2024 9:00 AM EDT Office Visit [facility] [address] [facility] [address] [place] [address] Oralia Saha APRN [address] [facility] [address] [place] [address] 05/12/2025 1:45 PM EDT Office Visit [facility] [address] [facility] [address] [place] [address] Obed Woodard MD [address] [place] [address] documented as of this encounter Procedures Procedure Name Priority Date/Time Associated Diagnosis Comments MAMMO DIAGNOSTIC DIGITAL TOMOSYNTHESIS BILATERAL W CAD Routine 02/10/2019 2:32 PM EDT Abnormal mammogram documented in this encounter Results * Mammo Diagnostic Digital Tomosynthesis Bilateral With CAD (02/10/2019 2:32 PM EDT) Anatomical Region Laterality Modality Breast Bilateral Mammography 02/11/2019 8:53 AM EDT Impressions 02/11/2019 9:09 AM EDT BI-RADS CATEGORY 2, BENIGN FINDINGS. RECOMMENDATION: Routine annual screening mammography in one year unless clinically indicated sooner. CAD was utilized. The standard false-negative rate of mammography is between 10% and 25%. Complex patterns or increased breast density will markedly elevate the false-negative rate of mammography. ?? A results letter, in lay terminology, will be given to the patient at the conclusion of the exam. This report was finalized on 02/11/2019 9:[address] Lien Phan MD. Narrative 02/11/2019 9:09 AM EDT DIAGNOSTIC BILATERAL MAMMOGRAM AND TARGETED RIGHT BREAST ULTRASOUND-02/10/2019: HISTORY: Continued surveillance for probable benign calcifications in the left breast. No current complaints. TECHNIQUE: ??Combination 2-D/3-D standard views of both breasts, magnification views of calcifications in the left breast and targeted right breast ultrasound. COMPARISON: ??Comparison is made to prior mammograms dating back to 08/17/2014. FINDINGS: The breast tissue is composed of scattered areas of fibroglandular densities. No suspicious masses, microcalcifications or areas of architectural distortion are identified in the left breast. Punctate and dystrophic calcifications are stable on standard and magnification views. Marking clips from benign biopsies are identified within the left breast. Evaluation of the right breast demonstrates no suspicious microcalcifications or areas of architectural distortion. There is a low density oval mass in the slightly lateral lower right breast. Targeted ultrasound demonstrates a cluster of microcysts at 7:00, 5 cm from the nipple, measuring 8 mm accounting for the mass on mammography and tomography. us Haleigh Khanna MD IMG MAMMOGRAPHY ORDERABLES Final Result documented in this encounter Visit Diagnoses Diagnosis Abnormal mammogram Abnormal mammogram, unspecified documented in this encounter Care Teams Communications Billing Analyst Relationship Specialty Start Date End Date Drew Garibay MD [address] [place] [address] PCP - General Family Medicine 09/04/16 03/02/22 documented as of this encounter
--- OUTSIDE RECORDS SUMMARY | 2024-08-17 15:56 | XMS_ITS | Encounter Summary ---
Author Organization [facility] Address [address] [place] [address] Care Team Providers Care Care Navigator Name Role Phone Drew Garibay MD Primary Care Provider [phone] Reason for Referral * (Routine) - Closed Specialty Diagnoses / Procedures Referred By Nasrin hernandez Referred To Contact Radiology Diagnoses Abnormal mammogram Procedures Mammo Post Clip Placement Left Haleigh Khanna MD [address]00 [facility] [address] [place] [address] Phone: tel: fax: Referral ID Status Reason Start Date Expiration Date Visits Re quested Visits Authorized [id number] Closed 11/13/2016 11/13/2017 1 1 Reason for Visit * (Routine) - Closed Specialty Diagnoses / Procedures Referred By Nasrin hernandez Referred To Contact Radiology Diagnoses Abnormal mammogram Procedures Mammo Post Clip Placement Left Haleigh Khanna MD [address] [facility] [address] [place] [address] Phone: tel: fax: Referral ID Status Reason Start Date Expiration Date Visits Re quested Visits Authorized [id number] Closed 11/13/2016 11/13/2017 1 1 Encounter Details Date Type Department Care Team (Latest Contact Info) Description 11/13/2016 9:52 AM EST - 11/13/2016 11:59 PM EST Hospital Encounter [facility] [address] [facility] [address] [place] [address] Abnormal mammogram Discharge Disposition: Home or Self [...] [facility] HEMATOLOG[facility] & [facility]Y [address] [facility] [address] [place] [address] Bre Crenshaw MD [address] [facility] [address] [place] [address] 12/31/2024 9:00 AM EDT Office Visit [facility] [address] [facility] [address] [place] [address] Oralia Saha APRN [address] [facility] [address] [place] [address] 05/12/2025 1:45 PM EDT Office Visit [facility] CARDI[facility] [address] [facility] [address] [place] [address] Obed Woodard MD [address] [facility] [address] [place], [place] [phone] documented as of this encounter Procedures Procedure Name Priority Date/Time Associated Diagnosis Comments MAMMO POST DEVICE PLACEMENT LEFT Routine 11/13/2016 10:21 AM EST Abnormal mammogram documented in this encounter Results * Mammo Post Clip Placement Left (11/13/2016 10:21 AM EST) Anatomical Region Laterality Modality Breast Left Mammography 11/14/2016 9:54 AM EST Narrative 11/14/2016 12:35 PM EST 10G SENO-RX VACUUM ASSISTED STEREOTACTIC BIOPSY HISTORY: 41-year-old patient with grouped amorphous calcifications in the left central breast. PROCEDURE: ??Written and verbal consent was obtained for stereotactic biopsy of calcifications in the left breast. ?? Time-out was observed to verify patient's identity and correct location of the breast abnormality. ??The breast was sterilized with chloraprep and 1% lidocaine with (19cc) and without (5cc) epinephrine was utilized for local anesthesia. ??A small skin incision was made with a scalpel and a 10 gauge Seno-Rx biopsy probe was advanced into the breast. ??The position ot the needle was confirmed with stereotactic images. ??6 core samples were obtained at the biopsy site. ??A specimen radiograph was obtained. The specimen radiograph confirmed the presence of calcifications. ??A postbiopsy marking clip was placed. ??Routine CC and ML mammographic images were obtained to document clip position and postbiopsy changes. These images revealed the clip to be well-positioned on MLO imaging, but located approximately 1.8 cm medial to the biopsy site on CC imaging. Upon completion of the procedure, compression was applied to the biopsy site until all appreciable bleeding subsided and a sterile dressing was applied. ??Post biopsy instructions were reviewed with the patient by our breast care nurse. ??A written copy of these instructions was also given to the patient. ??The patient tolerated the procedure well and no immediate complications occurred. SUMMARY: ??10 gauge stereotactic and vacuum assisted core biopsy of grouped, amorphous calcifications located in the left central breast. ??A marking clip was placed at the biopsy site. The clip is located approximately 1.8 cm medial to the biopsy site. PATHOLOGY: ??PROLIFERATIVE FIBROCYSTIC CHANGE WITH CALCIFICATIONS. Pathology results are concordant with imaging. RECOMMENDATION: ??Left diagnostic mammogram in 6 months to include left CC and ML magnification views. The patient will be called with final biopsy results and recommendations by our breast care nurse. This report was finalized on 11/14/2016 12:[address] Madison Dolan MD. us Madison Dolan MD IMG MAMMOGRAPHY ORDERABLES Fin al Result documented in this encounter Visit Diagnoses Diagnosis Abnormal mammogram Abnormal mammogram, unspecified documented in this encounter Care Teams Care Navigator Relationship Specialty Start Date End Date Drew Garibay MD [address] [place] [address] PCP - General Family Medicine 09/04/16 03/02/22 documented as of this encounter
--- OUTSIDE RECORDS SUMMARY | 2024-08-17 15:56 | XMS_ITS | Encounter Summary ---
Author Organization [facility] Address [address] [place] [address] Care Team Providers Care Professor In Family Studies Name Role Phone Drew Garibay MD Primary Care Provider [phone] Reason for Visit * Reason Comments Med Refill Encounter Details Date Type Department Care Team (Late Contact Info) Description 01/10/2021 Refill [facility] [address] [facility] [address] [place] [address] Kayce Becerril, SENIOR REGULATORY AFFAIRS SPECIALIST Social History Tobacco Use Types Packs/Day Years [...] [facility] [address] [facility] [address] [place] [phone] Bre Crenshaw MD [address] [facility] [address] [place] [address] 12/31/2024 9:00 AM EDT Office Visit [facility] [address] [facility] [address] [place] [address] Sweetie SahaahDWAYNE [address]60 [facility] [address] [place], [place] [id number] 05/12/2025 1:45 PM EDT Office Visit [facility] CARDIOLOG[facility] [address] [facility] [address] [place] [phone] Obed Woodard MD [address] [facility] [address] [place] [address] documented as of this encounter Visit Diagnoses Not on filedocumented in this encounter Care Teams Professor In Family Studies Relationship Specialty Start Date End Date Drew Garibay MD [address] [place] [address] PCP - General Family Medicine 09/04/16 03/02/22 documented as of this encounter
--- OUTSIDE RECORDS SUMMARY | 2024-08-17 15:56 | XMS_ITS | Encounter Summary ---
Author Organization [facility] Address [address] [place] [address] Care Team Providers Care Industrial Conveyor Belt Repairer Name Role Phone Unavailable Primary Care Provider Unavailabl e Encounter Details Date Type Department Care Team (Late st Contact Info) Description 08/17/2014 3:11 PM EST - 08/17/2014 11:59 PM EST Hospital Encounter [facility] [address] [facility] [place] [address] Haleigh Khanna MD [address]00 [facility] [address] [place] [address] Social History Tobacco Use Types Packs/Day Years [facility] [address] [facility] [address] [place] [address] Bre Crenshaw MD [address] [facility] [address] [place] [address] 12/31/2024 9:00 AM EDT Office Visit [facility] UR[facility] [address] [facility] [address] [place] [address] Oralia Saha APRN [address] [facility] [address] [place], [place] [id number] 05/12/2025 1:45 PM EDT Office Visit [facility] CARDIOLOG[facility] [address] [facility] [address] [place] [address] Obed Woodard MD [address] [facility] [address] [place], [place] [id number] documented as of this encounter Procedures Procedure Name Priority Date/Time Associated Diagnosis Comments MAMMO SCREENING BILATERAL W CAD Routine 08/17/2014 3:15 PM EST documented in this encounter Results * MAMMOGRAPHY SCREENING BILATERAL (08/17/2014 3:15 PM EST) Anatomical Region Laterality Modality Breast Bilateral Mammography 08/17/2014 3:15 PM EST Narrative 08/18/2014 11:43 AM EST BILATERAL SCREENING MAMMOGRAM WITH TOMOSYNTHESIS HISTORY: ??Patient has no personal or significant family history of breast cancer and no new breast complaints. TECHNIQUE: ??Low dose full field digital breast tomosynthesis imaging was performed with 2D and 3D acquisitions. COMPARISON: Baseline exam. FINDINGS: There are scattered bilateral fibroglandular densities. The left breast appears slightly smaller than the right. There are asymmetries in the left upper outer quadrant and left upper inner quadrant. Additional imaging is recommended for the left breast. The right breast is unremarkable. IMPRESSION- 1. The left breast appears slightly smaller than the right. 2. There are asymmetries in the left upper outer quadrant and left upper inner quadrant. RECOMMENDATION: Left CC and MLO focal compression views and a left ML view. BI-RADS CATEGORY 0, INCOMPLETE: ??NEED ADDITIONAL IMAGING EVALUATION. She will be contacted by our office to schedule an appointment for the additional studies. ?? CAD was utilized. The standard false-negative rate of mammography is between 10% and 25%. Complex patterns or increased breast density will markedly elevate the false-negative rate of mammography. ?? A letter, in lay terminology, with the results of this exam will be mailed to the patient. Physician Order Diagnostic Mammogram and/or Ultrasound. Diagnosis: Abnormal Screening Mammogram ? Reading Radiologist- ANDERS TREADWELL ? Releasing Radiologist- ANDERS TREADWELL ? Released Date Time- 08/18/14 1431 ? Uniform Cap Operator- Corazon us Haleigh Khanna MD IMG MAMMOGRAPHY ORDERABLES Final Result documented in this encounter Visit Diagnoses Not on filedocumented in this encounter
--- OUTSIDE RECORDS SUMMARY | 2024-08-17 15:56 | XMS_ITS | Encounter Summary ---
Author Organization [facility] Address [address] [place] [address] Care Team Providers Care Pebble Mill Operator Name Role Phone Drew Garibay MD Primary Care Provider [phone] Reason for Referral * Diagnostic Imaging (Routine) - Closed Specialty Diagnoses / Procedures Referred By Nasrin hernandez Referred To Contact Radiology Diagnoses Abnormal mammogram Procedures Mammo diagnostic digital tomosynthesis bilateral w CAD Haleigh Khanna MD [address] [address] Phone: tel: fax: Referral ID Status Reason Start Date Expiration Date Visits Re quested Visits Authorized [id number] Closed 05/21/2017 05/21/2018 1 1 Reason for Visit * Diagnostic Imaging (Routine) - Closed Specialty Diagnoses / Procedures Referred By Nasrin hernandez Referred To Contact Radiology Diagnoses Abnormal mammogram Procedures Mammo diagnostic digital tomosynthesis bilateral w Haleigh Nunes MD [address] [address] Phone: tel: fax: Referral ID Status Reason Start Date Expiration Date Visits Re quested Visits Authorized [id number] Closed 05/21/2017 05/21/2018 1 1 Encounter Details Date Type Department Care Team (Late st Contact Info) Description 12/11/2017 7:42 AM EDT - 12/11/2017 11:59 PM EDT Hospital Encounter [facility] [address] [facility] [address] [place] [address] Haleigh Khanna MD [address] [facility] [address] [place] [address] Abnormal mammogram Discharge Disposition: Home or Self [...] [facility] [address] [facility] [address] [place] [phone] Bre Crenshaw MD [address] [facility] [address] [place] [address] 12/31/2024 9:00 AM EDT Office Visit [facility] UROLOGY [address] [facility] [address] [place] [address] Oralia Saha APRN [address] [facility] [address] [place] [address] 05/12/2025 1:45 PM EDT Office Visit [facility] CARDIOLOGY [address] [facility] [address] [place] [address] Obed Woodard MD [address] [facility] [address] [place], [place] [id number] documented as of this encounter Procedures Procedure Name Priority Date/Time Associated Diagnosis Comments MAMMO DIAGNOSTIC DIGITAL TOMOSYNTHESIS BILATERAL W CAD Routine 12/11/2017 8:11 AM EDT Abnormal mammogram documented in this encounter Results * (ABNORMAL) Mammo diagnostic digital tomosynthesis bilateral w CAD (12/11/2017 8:11 AM EDT) Anatomical Region Laterality Modality Breast Bilateral Mammography 12/11/2017 11:0 6 AM EDT Impressions 12/11/2017 2:56 PM EDT BI-RADS CATEGORY 4, SUSPICIOUS ABNORMALITY LEFT BREAST. RECOMMENDATION: ??Given that the asymmetry is best visualized on mammography, Affirm-guided tomographic biopsy using a CC above approach would be recommended. CAD was utilized. The standard false-negative rate of mammography is between 10% and 25%. Complex patterns or increased breast density will markedly elevate the false-negative rate of mammography. ?? A results letter, in lay terminology, will be given to the patient at the conclusion of the exam. Physician Order Affirm-Guided Tomographic Biopsy Diagnosis: ??Abnormal Mammogram This report was finalized on 12/11/2017 2:[address] Lien Phan MD. Narrative 12/11/2017 2:56 PM EDT DIAGNOSTIC BILATERAL MAMMOGRAPHY AND TARGETED LEFT BREAST ULTRASOUND-12/11/2017: HISTORY: Continued surveillance for probable benign calcifications in the left breast. The patient underwent stereotactic core biopsy in November 2016 with benign pathology. TECHNIQUE: ??Combination 2-D/3-D standard views of both breasts as well as magnification views of calcifications in the left breast. COMPARISON: ??Comparison is made to prior mammograms dating back to 08/17/2014. FINDINGS: The breast tissue is heterogeneously dense which can obscure small masses on mammography. Amorphous calcifications in the left breast are stable on standard and magnification views. No new suspicious masses, microcalcifications or areas of architectural distortion are identified in the right breast. An asymmetry is identified in the lateral left breast that measures 8 mm not visualized on the MLO view. This asymmetry persists on 2-D/3-D left CC spot compression view but is not identified on the 2-D/3-D left 90-degree lateral view. Targeted left breast ultrasound demonstrated some simple cysts anterior to the aforementioned asymmetry. The asymmetry was not identified for certain on mammography. us Haleigh Khanna MD IMG MAMMOGRAPHY ORDERABLES Final Result documented in this encounter Visit Diagnoses Diagnosis Abnormal mammogram Abnormal mammogram, unspecified documented in this encounter Care Teams Pebble Mill Operator Relationship Specialty Start Date End Date Drew Garibay MD [address] [place] [address] PCP - General Family Medicine 09/04/16 03/02/22 documented as of this encounter
--- OUTSIDE RECORDS SUMMARY | 2024-08-17 15:56 | XMS_ITS | Encounter Summary ---
Author Organization [facility] Address [address] [place] [address] Care Team Providers Care Substance Abuse Specialist Name Role Phone Drew Garibay MD Primary Care Provider [phone] Reason for Visit * Reason Comments Med Refill Encounter Details Date Type Department Care Team (Late st Contact Info) Description 03/23/2021 Refill [facility] OBGYN [address] [facility] [address] [place] [address] Kayce Becerril, TOPPER PACKER Social History Tobacco Use Types Packs/Day Years [...] Miscellaneous Notes * Telephone Encounter - Amita Abernathy MA - 03/23/2021 8:30 AM EDT Last annual : 12/07/2020 documented in this encounter Plan of Treatment Upcoming Encounters Date Type Department Care Team (Late st Contact Info) Description 09/18/2024 3:30 PM EST Office Visit [facility] HEMATOLOGY & ONCOLOGY [address] [facility] [address] [place] [address] Bre Crenshaw MD [address] [facility] [address] [place] [address] 12/31/2024 9:00 AM EDT Office Visit [facility] UROLOGY [address] [facility] [address] [place] [address] Oralia Saha APRN [address] [facility] [address] [place] [address] 05/12/2025 1:45 PM EDT Office Visit [facility] CARDIOLOGY [address] [facility] [address] [place] [phone] Obed Woodard MD [address] [facility] [address] [place], [place] [phone] documented as of this encounter Visit Diagnoses Not on filedocumented in this encounter Care Teams Substance Abuse Specialist Relationship Specialty Start Date End Date Drew Garibay MD [address] [place] [address] PCP - General Family Medicine 09/04/16 03/02/22 documented as of this encounter
--- OUTSIDE RECORDS SUMMARY | 2024-08-17 15:56 | XMS_ITS | Encounter Summary ---
Author Organization [facility] Address [address] [place] [address] Care Team Providers Care Apartment Coordinator Name Role Phone Unavailable Primary Care Provider Unavailabl e Encounter Details Date Type Department Care Team (Late st Contact Info) Description 09/02/2014 8:42 AM EST - 09/02/2014 11:59 PM EST Hospital Encounter [facility] [address] [facility] [address] [place] [phone] Haleigh Khanna MD [address] [facility] [address] [place] [address] Social History Tobacco Use Types Packs/Day Years [...] [facility] [address] [facility] [address] [place] [address] Bre Crenshaw MD [address] [facility] [address] [place] [address] 12/31/2024 9:00 AM EDT Office Visit [facility] UROLOGY [address] [facility] [address] [place] [address] Oralia Saha APRN [address] [facility] [address] [place], [place] [id number] 05/12/2025 1:45 PM EDT Office Visit [facility] CARDIOLOGY [address] [facility] [address] [place] [address] Obed Woodard MD [address] [facility] [address] [place], [place] [phone] documented as of this encounter Procedures Procedure Name Priority Date/Time Associated Diagnosis Comments US BREAST UNILATERAL Routine 09/02/2014 9:32 AM EST MAMMO DIAGNOSTIC UNILATERAL Routine 09/02/2014 8:34 AM EST documented in this encounter Results * ULTRASOUND BREAST UNILATERAL (09/02/2014 9:32 AM EST) Anatomical Region Laterality Modality Breast Ultrasound 09/02/2014 9:32 AM EST Narrative 09/02/2014 12:06 PM EST LEFT DIAGNOSTIC MAMMOGRAM AND LEFT BREAST ULTRASOUND: CLINICAL INDICATION: ??39-year-old patient recalled from baseline screening exam for further evaluation of the left breast. TECHNIQUE: Left MLO and CC focal compression views were obtained in addition to a left ML view. Finally, ultrasound of the superior left breast was performed. COMPARISON: 08/17/2014. FINDINGS: ??Additional mammographic imaging demonstrates persistent asymmetric tissue in the superior left breast with underlying obscured nodularity. LEFT BREAST ULTRASOUND: To further evaluate the mammographic findings, ultrasound of the superior left breast was performed. This demonstrates several scattered and clustered cysts of varying sizes the largest of which is a 1.4 cm cluster of cysts in the 1:00 position, 4 to 5 cm from the nipple. No solid mass is seen and there is no abnormal area of shadowing IMPRESSION- ??Probably benign left mammographic findings. BI-RADS CATEGORY: ??III, PROBABLY BENIGN. RECOMMENDATION: ??Recommend six month follow-up diagnostic left mammogram. CAD was utilized. The standard false-negative rate of mammography is between 10% and 25%. Complex patterns or increased breast density will markedly elevate the false-negative rate of mammography. ?? A letter, in lay terminology, with the results of this exam was given to the patient at the time of the visit. _ Physician Order Diagnostic 6 Month follow up Mammogram with Breast Ultrasound if needed. Diagnosis: Abnormal Mammogram ? Reading Radiologist- SKIP MASTERS ? Releasing Radiologist- SKIP MASTERS ? Released Date Time- 09/03/14 1316 ? Photographer Scientific- Aldo. us Haleigh Khanna MD [facility] US ORDERABLES Final Result * MAMMOGRAPHY DIAGNOSTIC UNILATERAL (09/02/2014 8:34 AM EST) Anatomical Region Laterality Modality Breast N/A Mammography 09/02/2014 8:34 AM EST Narrative 09/02/2014 12:06 PM EST LEFT DIAGNOSTIC MAMMOGRAM AND LEFT BREAST ULTRASOUND: CLINICAL INDICATION: ??39-year-old patient recalled from baseline screening exam for further evaluation of the left breast. TECHNIQUE: Left MLO and CC focal compression views were obtained in addition to a left ML view. Finally, ultrasound of the superior left breast was performed. COMPARISON: 08/17/2014. FINDINGS: ??Additional mammographic imaging demonstrates persistent asymmetric tissue in the superior left breast with underlying obscured nodularity. LEFT BREAST ULTRASOUND: To further evaluate the mammographic findings, ultrasound of the superior left breast was performed. This demonstrates several scattered and clustered cysts of varying sizes the largest of which is a 1.4 cm cluster of cysts in the 1:00 position, 4 to 5 cm from the nipple. No solid mass is seen and there is no abnormal area of shadowing IMPRESSION- ??Probably benign left mammographic findings. BI-RADS CATEGORY: ??III, PROBABLY BENIGN. RECOMMENDATION: ??Recommend six month follow-up diagnostic left mammogram. CAD was utilized. The standard false-negative rate of mammography is between 10% and 25%. Complex patterns or increased breast density will markedly elevate the false-negative rate of mammography. ?? A letter, in lay terminology, with the results of this exam was given to the patient at the time of the visit. _ Physician Order Diagnostic 6 Month follow up Mammogram with Breast Ultrasound if needed. Diagnosis: Abnormal Mammogram ? Reading Radiologist- SKIP MASTERS ? Releasing Radiologist- SKIP MASTERS ? Released Date Time- 09/03/14 1316 ? Photographer Scientific- Diego Haleigh Khanna MD [facility] MAMMOGRAPHY ORDERABLES Final Result documented in this encounter Visit Diagnoses Not on filedocumented in this encounter
--- OUTSIDE RECORDS SUMMARY | 2024-08-17 15:56 | XMS_ITS | Encounter Summary ---
Author Organization [facility] Address [address] [place] [address] Care Team Providers Care Millwright Apprentice Name Role Phone Drew Garibay MD Primary Care Provider [phone] Reason for Referral * (Routine) - Closed Specialty Diagnoses / Procedures Referred By Nasrin hernandez Referred To Contact Radiology Diagnoses Abnormal mammogram Procedures US Breast Right Limited Haleigh Khanna MD [address]00 [facility] [address] [place] [address] Phone: tel: fax: Referral ID Status Reason Start Date Expiration Date Visits Re quested Visits Authorized [id number] Closed 02/10/2019 02/10/2020 1 1 Reason for Visit * (Routine) - Closed Specialty Diagnoses / Procedures Referred By Nasrin hernandez Referred To Contact Radiology Diagnoses Abnormal mammogram Procedures US Breast Right Limited Haleigh Khanna MD [address] [facility] [address] [place] [address] Phone: tel: fax: Referral ID Status Reason Start Date Expiration Date Visits Re quested Visits Authorized [id number] Closed 02/10/2019 02/10/2020 1 1 Encounter Details Date Type Department Care Team (Latest Contact Info) Description 02/10/2019 2:48 PM EDT - 02/10/2019 11:59 PM EDT Hospital Encounter [facility] 1760 ULTRASOUND [address] [facility] [address] [place] [phone] Abnormal mammogram Discharge Disposition: Home or Self [...] [facility] [address] [facility] [address] [place] [address] Bre Crenshaw MD [address] [facility] [address] [place] [address] 12/31/2024 9:00 AM EDT Office Visit [facility] UROLOG[facility] [address] [facility] [address] [place] [address] Oralia Saha APRN [address]60 [facility] [address] [place] [address] 05/12/2025 1:45 PM EDT Office Visit [facility] CARDIOLOGY [address] [facility] [address] [place] [phone] Obed Woodard MD [address] [facility] [address] [place] [address] documented as of this encounter Procedures Procedure Name Priority Date/Time Associated Diagnosis Comments US BREAST RIGHT LIMITED Routine 02/10/2019 3:12 PM EDT Abnormal mammogram documented in this encounter Results * US Breast Right Limited (02/10/2019 3:12 PM EDT) Anatomical Region Laterality Modality Breast Right Ultrasound 02/11/2019 8:53 AM EDT Impressions 02/11/2019 9:09 [...] the mass on mammography and tomography. us Lien Phan MD IMG US ORDERABLES Final Res ult documented in this encounter Visit Diagnoses Diagnosis Abnormal mammogram Abnormal mammogram, unspecified documented in this encounter Care Teams Millwright Apprentice Relationship Specialty Start Date End Date Drew Garibya MD [address] [place] [address] PCP - General Family Medicine 09/04/16 03/02/22 documented as of this encounter
--- OUTSIDE RECORDS SUMMARY | 2024-08-17 15:56 | XMS_ITS | Encounter Summary ---
Author Organization [facility] Address [address] [place] [address] Care Team Providers Care Chemist Helper Name Role Phone Drew Garibay MD Primary Care Provider [phone] Reason for Visit * Reason Comments Med Refill Encounter Details Date Type Department Care Team (Late st Contact Info) Description 05/06/2021 Refill [facility] OBGYN [address]00 [facility] [address] [place] [address] Kayce Becerril, ACT ENGLISH TUTOR Social History Tobacco Use Types Packs/Day Years [...] encounter Miscellaneous Notes * Telephone Encounter - Giancarlo Huntley MA - 05/06/2021 8:22 AM EDT Last annual 12/06/2020. documented in this encounter Plan of Treatment Upcoming Encounters Date Type Department Care Team (Late st Contact Info) Description 09/18/2024 3:30 PM EST Office Visit [facility] HEMATOLOGY & ONCOLOGY [address] [facility] [address] [place] [address] Bre Crenshaw MD [address] [facility] [address] [place] [address] 12/31/2024 9:00 AM EDT Office Visit [facility] UROLOGY [address] [facility] [address] [place] [address] Oralia Saha APRN [address] [facility] [address] [place] [address] 05/12/2025 1:45 PM EDT Office Visit [facility] CARDIOLOGY [address] [facility] [address] [place] [phone] Obed Woodard MD [address]20 [facility] [address] [place], [place] [phone] documented as of this encounter Visit Diagnoses Not on filedocumented in this encounter Care Teams Chemist Helper Relationship Specialty Start Date End Date Drew Garibay MD [address] [place] [address] PCP - General Family Medicine 09/04/16 03/02/22 documented as of this encounter
--- OUTSIDE RECORDS SUMMARY | 2024-08-17 15:56 | XMS_ITS | Encounter Summary ---
Author Organization [facility] Address [address] [place] [address] Care Team Providers Care Switch Maker Name Role Phone Drew Garibay MD Primary Care Provider [phone] Reason for Referral * (Routine) - Closed Specialty Diagnoses / Procedures Referred By Nasrin t Referred To Contact Radiology Diagnoses Abnormal mammogram Procedures Mammo Stereotactic Breast Biopsy Initial With & Without Device Lien Phan MD [address] [place] [address] Phone: tel: fax: Referral ID Status Reason Start Date Expiration Date Visits Re quested Visits Authorized [id number] Closed 12/11/2017 12/11/2018 1 1 Reason for Visit * (Routine) - Closed Specialty Diagnoses / Procedures Referred By Nasrin hernandez Referred To Contact Radiology Diagnoses Abnormal mammogram Procedures Mammo Stereotactic Breast Biopsy Initial With & Without Device Lien Phan MD [address] [place] [address] Phone: tel: fax: Referral ID Status Reason Start Date Expiration Date Visits Re quested Visits Authorized [id number] Closed 12/11/2017 12/11/2018 1 1 Encounter Details Date Type Department Care Team (Late st Contact Info) Description 12/31/2017 12:34 PM EDT - 12/31/2017 11:59 PM EDT Hospital Encounter [facility] [address] [facility] [address] [place] [address] Lien Phan MD [address] [facility] [address] [place] [address] Abnormal mammogram Discharge Disposition: Home or Self [...] [facility] H[facility] [address]00 [facility] [address] [place] [phone] Bre Crenshaw MD [address] [facility] [address] [place] [address] 12/31/2024 9:00 AM EDT Office Visit [facility] UROLOGY [address] [facility] [address] [place] [address] Oralia Saha APRN [address]60 [facility] [address] [place] [address] 05/12/2025 1:45 PM EDT Office Visit [facility] CARDIOLOGY [address] [facility] [address] [place] [address] Obed Woodard MD [address]20 [facility] [address] [place], [place] [phone] documented as of this encounter Procedures Procedure Name Priority Date/Time Associated Diagnosis Comments MAMMO STEREOTACTIC BREAST BIOPSY INITIAL W WO DEVICE Routine 12/31/2017 1:42 PM EDT Abnormal mammogram TISSUE PATHOLOGY EXAM Routine 12/31/2017 1:24 PM EDT documented in this encounter Results * Mammo Stereotactic Breast Biopsy Initial With & Without Device (12/31/2017 1:42 PM EDT) Anatomical Region Laterality Modality Breast N/A Mammography 01/01/2018 3:39 PM EDT Narrative 01/02/2018 [...] Phan MD IMG MAMMOGRAPHY ORDERABLES Final Result * Tissue Pathology Exam (12/31/2017 1:24 PM EDT) Case Report Surgical Pathology Report ? Case: [id number] ? Authorizing Provider: ??Lien Phan MD ?Collected: ? 12/31/2017 01:24 PM ? Ordering Location: ? [facility] ?? Received: ?12/31/2017 02:04 PM ? Breast Center 1760 ? Pathologist: ? Tino Sherman MD ? Specimen: ?Breast, Left ? 01/01/2018 11:59 AM EDT [facility] Clinical Information The working history is left breast asymmetry. 01/01/2018 11:59 AM EDT [facility] Final Diagnosis LEFT BREAST AREA OF ASYMMETRY, NOT OTHERWISE SPECIFIED, AFFIRM-STEREOTACTIC CORE BIOPSIES: Proliferative fibrocystic change with adenosis and without atypia. JFJ/mbc 01/01/2018 11:59 AM T [facility] Comment This report was sent to the radiologist at [facility] on 01/01/18. 01/01/2018 11:59 AM EDT [facility] Gross Description Received in formalin labeled left breast mass, noncalcified, affirm-stereotactic biopsy consists of a 3.0 x 2.4 x 0.4 cm aggregate of marr/pink fibroadipose breast tissue fragments placed in formalin at 13:26 pm now submitted in cassette A. Total time in formalin is greater than 6 hours. LED/klb 01/01/2018 11:59 AM T [facility] Microscopic Description Sections from the left breast area of asymmetry show cystic dilatation show multiple ducts with papillary hyperplasia including micropapillomatous change. These ducts are dilated and show apocrine metaplasia, forming a fibrocystic complex. There are surrounding areas of adenosis.. An occasional calcification is noted. There is no evidence of in-situ or invasive carcinoma. 01/01/2018 11:59 AM EDT [facility] Embedded Images 01/01/2018 11:59 AM T [facility] Tissue Specimen from breast / Unknown 12/31/2017 1:24 PM EDT 12/31/2017 2:04 PM EDT Comment:LEFT BREAST ASYMMETR Y us Lien Phan MD PATHOLOGY/CYTOLOGY ORDERABL ES Final Result [facility]
[address] [place] [id number], documented in this encounter Visit Diagnoses Diagnosis Abnormal mammogram Abnormal mammogram, unspecified documented in this encounter Administered Medications Inactive Administered Medications - up to 3 most recent administrations Medication Order MAR Action Action Date Dose Rate Site lidocaine (XYLOCAINE) 1 % injection 5 mL 5 mL, Infiltration, Once, On Sun12/31/17 at 1330, For 1 dose Given 12/31/2017 1:18 PM EDT 1 mL lidocaine-EPINEPHrine (XYLOCAINE W/EPI) 1 %-1:[id number] injection 10 mL 10 mL, Infiltration, Once, On Sun12/31/17 at 1330, For 1 dose Given 12/31/2017 1:20 PM EDT 5 mL documented in this encounter Care Teams Switch Maker Relationship Specialty Start Date End Date Drew Garibay MD [address] [place] [address] PCP - General Family Medicine 09/04/16 03/02/22 documented as of this encounter
--- OUTSIDE RECORDS SUMMARY | 2024-08-17 15:56 | XMS_ITS | Encounter Summary ---
Author Organization [facility] Address [address] [place] [address] Care Team Providers Care Records And Tape Recordings Engineer Name Role Phone Drew Garibay MD Primary Care Provider [phone] Reason for Referral * (Routine) - Closed Specialty Diagnoses / Procedures Referred By Contac t Referred To Contact Radiology Diagnoses Abnormal mammogram Procedures Mammo Stereotactic Breast Biopsy 1st With & Without Device Left Haleigh Khanna MD [address] [place] [address] Phone: tel: fax: Referral ID Status Reason Start Date Expiration Date Visits Re quested Visits Authorized [id number] Closed 10/26/2016 10/26/2017 1 1 Reason for Visit * (Routine) - Closed Specialty Diagnoses / Procedures Referred By Contac t Referred To Contact Radiology Diagnoses Abnormal mammogram Procedures Mammo Stereotactic Breast Biopsy 1st With & Without Device Left Haleigh Khanna MD [address] [place] [address] Phone: tel: fax: Referral ID Status Reason Start Date Expiration Date Visits Re quested Visits Authorized [id number] Closed 10/26/2016 10/26/2017 1 1 Encounter Details Date Type Department Care Team (Late st Contact Info) Description 11/13/2016 8:45 AM EST - 11/13/2016 9:50 AM EST Hospital Encounter [facility] [address] [facility] [address] [place] [address] Haleigh Khanna MD [address] [facility] [address] [place] [address] Abnormal mammogram Discharge Disposition: Home or Self Care Social History Tobacco Use Types Packs/Day Years Used Date Smoking Tobacco: Never Assessed Comments No Sex and Gender Information Value Date Recorded Sex Assigned at Not on file Legal Sex Female 10:43 AM EDT Gender Identity Not on file Sexual Orientation Not on file documented as of this encounter Progress Notes * Keila Cisse RN MSN - 11/13/2016 10:20 AM EST Alert and orientated. Denies discomfort. No active bleeding. Steri-strips & gauze dsg intact. Ice packs given. Verbalizes and demonstrates understanding of post-care instructions and written copygiven. documented in this encounter Plan of Treatment Upcoming Encounters Date Type Department Care Team (Late st Contact Info) Description 09/18/2024 3:30 PM EST Office Visit [facility] HEMATOLOGY & ONCOLOGY [address] [facility] [address] [place] [address] Bre Crenshaw MD [address] [facility] [address] [place] [address] 12/31/2024 9:00 AM EDT Office Visit [facility] UROLOGY [address] [facility] [address] [place] [address] Oralia Saha APRN [address] [facility] [address] [place] [address] 05/12/2025 1:45 PM EDT Office Visit [facility] CARDIOLOGY [address] [place] [phone] Obed Woodard MD [address] [place] [address] documented as of this encounter Procedures Procedure Name Priority Date/Time Associated Diagnosis Comments MAMMO STEREOTACTIC BREAST BIOPSY INITIAL W WO DEVICE Routine 11/13/2016 10:17 AM EST Abnormal mammogram TISSUE PATHOLOGY EXAM Routine 11/13/2016 10:00 AM EST Abnormal mammogram documented in this encounter Results * Mammo Stereotactic Breast Biopsy 1st With & Without Device Left (11/13/2016 10:17 AM EST) Anatomical Region Laterality Modality Breast N/A Other 11/14/2016 9:54 AM EST Narrative 11/14/2016 12:35 [...] PM by Dr. Madison Dolan MD. us Haleigh Khanna MD IMG MAMMOGRAPHY ORDERABLES Final Result * Tissue Exam (11/13/2016 10:00 AM EST) Case Report Surgical Pathology Report ? Case: [id number] ? Authorizing Provider: ??Madison Dolan MD ? Collected: ? 11/13/2016 10:00 AM ? Ordering Location: ? [facility] ?? Received: ?11/13/2016 12:47 PM ? Breast [address] ? Pathologist: ? Tino Sherman MD ? Specimen: ?Breast, Left, LEFT BREAST GROUPED CENTRAL CALCIFICATIONS ? 11/14/2016 9:57 AM [facility] Clinical Information The working history is left breast grouped central calcifications. 11/14/2016 9:57 AM [facility] Final Diagnosis LEFT BREAST CENTRAL CALCIFICATIONS, STEREOTACTIC CORE BIOPSIES: Proliferative fibrocystic change with calcifications. Negative for in-situ and invasive carcinoma. [facility] 11[facility]14/2016 9:57 AM [facility] Comment This report was sent to the radiologist at [facility] on 11/14/16. 11/14/2016 9:57 AM [facility] Gross Description Received in formalin labeled left breast stereotactic biopsy consists of two cassettes one of which is designated with a Steri-Strip. The undesignated cassette contains a 2.5x2.5x0.5 cm aggregate of marr/pink fibroadipose breast tissue fragments placed in formalin at 10:05 a.m. now submitted in cassette A. The taped, designated cassette contains a 1.0x1.0x0.5 cm aggregate of marr/pink fibroadipose breast tissue fragments placed in formalin at 10:05 a.m. now submitted in cassette B. Total time in formalin is greater than 6 hours. [facility] 11/14/2016 9:57 AM [facility] Microscopic Description Sections show a central cystically dilated duct surrounded by lobules with focal areas showing metaplastic cells with enlarged nuclei and voluminous eosinophilic cytoplasm. One of the lobules shows calcifications within. A focal area shows central sclerosis within the duct. There is no evidence of invasive carcinoma. [facility] 11/14/2016 9:57 AM EST [facility] Embedded Images 11/14/2016 9:57 AM EST [facility] Tissue Specimen from breast / Unknown 11/13/2016 10:00 AM EST 11/13/2016 12:47 PM EST Madison Dolan MD PATHOLOGY/CYTOLOGY ORDERABLES Final Result [facility]
[address] [place] [address], documented in this encounter Visit Diagnoses Diagnosis Abnormal mammogram Abnormal mammogram, unspecified documented in this encounter Administered Medications Inactive Administered Medications - up to 3 most recent administrations Medication Order MAR Action Action Date Dose Rate Site lidocaine (XYLOCAINE) 1 % injection 5 mL 5 mL, Infiltration, Once, On Sun11/13/16 at 1030, For 1 dose Given 11/13/2016 9:57 AM EST 5 mL lidocaine-EPINEPHrine (XYLOCAINE W/EPI) 1 %-1:183293 injection 20 mL 20 mL, Infiltration, Once, On Sun11/13/16 at 1030, For 1 dose Given 11/13/2016 9:58 AM EST 19 mL documented in this encounter Care Teams Records And Tape Recordings Engineer Relationship Specialty Start Date End Date Drew Garibay MD [address] [place] [address] PCP - General Family Medicine 09/04/16 03/02/22 documented as of this encounter
--- OUTSIDE RECORDS SUMMARY | 2024-08-17 15:56 | XMS_ITS | Encounter Summary ---
Author Organization [facility] Address [address] [place] [address] Care Team Providers Care Floor Tiling Professional Name Role Phone Drew Garibay MD Primary Care Provider [phone] Reason for Referral * (Routine) - Closed Specialty Diagnoses / Procedures Referred By Nasrin hernandez Referred To Contact Radiology Diagnoses Abnormal mammogram Procedures US Breast Left Limited Haleigh Khanna MD [address] [facility] [address] [place] [address] Phone: tel: fax: Referral ID Status Reason Start Date Expiration Date Visits Re quested Visits Authorized [id number] Closed 12/11/2017 12/11/2018 1 1 Reason for Visit * (Routine) - Closed Specialty Diagnoses / Procedures Referred By Nasrin hernandez Referred To Contact Radiology Diagnoses Abnormal mammogram Procedures US Breast Left Limited Haleigh Khanna MD [address] [facility] [address] [place] [address] Phone: tel: fax: Referral ID Status Reason Start Date Expiration Date Visits Re quested Visits Authorized [id number] Closed 12/11/2017 12/11/2018 1 1 Encounter Details Date Type Department Care Team (Latest Contact Info) Description 12/11/2017 9:42 AM EDT - 12/11/2017 11:59 PM EDT Hospital Encounter [facility] [address] [facility] [address] [place] [phone] Abnormal mammogram Discharge Disposition: Home or Self [...] [facility] [address] [facility] [address] [place] [address] Bre Crenshaw MD [address] [facility] [address] [place] [address] 12/31/2024 9:00 AM EDT Office Visit [facility] UROLOGY [address] [facility] [address] [place] [address] Oralia Saha APRN [address] [facility] [address] [place] [address] 05/12/2025 1:45 PM EDT Office Visit [facility] CARDIOLOGY [address] [facility] [address] [place] [phone] Obed Woodard MD [address] [facility] [address] [place] [address] documented as of this encounter Procedures Procedure Name Priority Date/Time Associated Diagnosis Comments US BREAST LEFT LIMITED Routine 12/11/2017 10:13 AM EDT Abnormal mammogram documented in this encounter Results * (ABNORMAL) US Breast Left Limited (12/11/2017 10:13 AM EDT) Anatomical Region Laterality Modality Breast Left Ultrasound 12/11/2017 11:0 6 AM EDT Impressions 12/11/2017 [...] not identified for certain on mammography. us Lien Phan MD IMG US ORDERABLES Final Res ult documented in this encounter Visit Diagnoses Diagnosis Abnormal mammogram Abnormal mammogram, unspecified documented in this encounter Care Teams Floor Tiling Professional Relationship Specialty Start Date End Date Drew Garibay MD [address] [place] [address] PCP - General Family Medicine 09/04/16 03/02/22 documented as of this encounter
--- OUTSIDE RECORDS SUMMARY | 2024-08-17 15:56 | XMS_ITS | Encounter Summary ---
Author Organization [facility] Address [address] [place] [address] Care Team Providers Care Highway Safety Engineer Name Role Phone Drew Garibay MD Primary Care Provider [phone] Reason for Referral * (Routine) - Closed Specialty Diagnoses / Procedures Referred By Nasrin hernandez Referred To Contact Radiology Diagnoses Abnormal mammogram Procedures Mammo breast specimen left Haleigh Khanna MD [address] [facility] [address] [place] [address] Phone: tel: fax: Referral ID Status Reason Start Date Expiration Date Visits Re quested Visits Authorized [id number] Closed 11/13/2016 11/13/2017 1 1 Reason for Visit * (Routine) - Closed Specialty Diagnoses / Procedures Referred By Nasrin hernandez Referred To Contact Radiology Diagnoses Abnormal mammogram Procedures Mammo breast specimen left Haleigh Khanna MD [address] [facility] [address] [place] [address] Phone: tel: fax: Referral ID Status Reason Start Date Expiration Date Visits Re quested Visits Authorized [id number] Closed 11/13/2016 11/13/2017 1 1 Encounter Details Date Type Department Care Team (Latest Contact Info) Description 11/13/2016 9:51 AM EST Hospital Encounter [facility] [address] [facility] [address] [place] [address] Abnormal mammogram Discharge Disposition: Home or Self [facility] [address] [facility] [address] [place] [address] Bre Crenshaw MD [address] [facility] [address] [place] [address] 12/31/2024 9:00 AM EDT Office Visit [facility] UROLOG[facility] [address] [facility] [address] [place] [address] Oralia Saha APRN [address] [facility] [address] [place] [address] 05/12/2025 1:45 PM EDT Office Visit [facility] C[facility] [address] [facility] [address] [place] [address] Obed Woodard MD [address] [facility] [address] [place], [place] [id number] documented as of this encounter Procedures Procedure Name Priority Date/Time Associated Diagnosis Comments MAMMO BREAST SPECIMEN Routine 11/13/2016 10:21 AM EST Abnormal mammogram documented in this encounter Results * Mammo breast specimen left (11/13/2016 10:21 AM EST) Anatomical Region Laterality Modality Breast N/A Mammography 11/14/2016 9:54 AM EST Narrative 11/14/2016 [...] 12:[address] Madison Dolan MD. Procedure Note Madison Dolan MD - 11/14/2016 10G SENO-RX VACUUM ASSISTED STEREOTACTIC BIOPSY HISTORY: 41-year-old patient with grouped amorphous calcifications in the left central breast. PROCEDURE: Written and verbal consent was obtained for stereotactic biopsy of calcifications in the left breast. Time-out was observed to verify patient's identity and correct location of the breast abnormality. The breast was sterilized with chloraprep and 1% lidocaine with (19cc) and without (5cc) epinephrine was utilized for local anesthesia. A small skin incision was made with a scalpel and a 10 gauge Seno-Rx biopsy probe was advanced into the breast. The position ot the needle was confirmed with stereotactic images. 6 core samples were obtained at the biopsy site. A specimen radiograph was obtained. The specimen radiograph confirmed the presence of calcifications. A postbiopsy marking clip was placed. Routine CC and ML mammographic images were obtained [...] the patient by our breast care nurse. A written copy of these instructions was also given to the patient. The patient tolerated the procedure well and no immediate complications occurred. SUMMARY: 10 gauge stereotactic and vacuum assisted core biopsy of grouped, amorphous calcifications located in the left central breast. A marking clip was placed at the biopsy site. The clip is located approximately 1.8 cm medial to the biopsy site. PATHOLOGY: PROLIFERATIVE FIBROCYSTIC CHANGE WITH CALCIFICATIONS. Pathology results are concordant with imaging. RECOMMENDATION: Left diagnostic mammogram in 6 months to include left CC and ML magnification views. The patient will be called with final biopsy results and recommendations by our breast care nurse. This report was finalized on 11/14/2016 12:[address] Madison Dolan MD. Madison Dolan MD IM MAMMOGRAPHY ORDERABLES Fin al Result documented in this encounter Visit Diagnoses Diagnosis Abnormal mammogram Abnormal mammogram, unspecified documented in this encounter Care Teams Highway Safety Engineer Relationship Specialty Start Date End Date Drew Garibay MD [address] [place] [id number] PCP - General Family Medicine 09/04/16 03/02/22 documented as of this encounter
--- OUTSIDE RECORDS SUMMARY | 2024-08-17 15:56 | XMS_ITS | Encounter Summary ---
Author Organization [facility] Address [address] [place] [address] Care Team Providers Care Roll Tube Setter Name Role Phone Drew Garibay MD Primary Care Provider [phone] Reason for Visit * Reason Comments Gynecologic Exam Ultrasound Fibroids Encounter Details Date Type Department Care Team (Late Contact Info) Description 12/06/2020 9:40 AM EST Office Visit [facility] OBGYN [address] [place] [address] Haleigh Khanna MD [address] [facility] [address] [place], [place] [id number] Women's annual routine gynecological examination (Primary Dx); Breast cancer screening by mammogram; Intramural leiomyoma of uterus; External hemorrhoids; Mid back pain Social History Tobacco Use Types Packs/Day [...] Sign Reading Time Taken Comments Blood Pressure 128/88 12/06/2020 9:46 AM EST Pulse - - Temperature 36.3 ??C (97.3 ??F) 12/06/2020 9:46 AM ES T Respiratory Rate - - Oxygen Saturation - - Inhaled Oxygen Concentration - - Weight 91.2 kg (201 lb) 12/06/2020 9:46 AM EST Height 157.5 cm (5' 2 ) 12/06/2020 9:46 AM EST Body Mass Index 36.76 12/06/2020 9:46 AM EST documented in this encounter Patient Instructions * Patient Instructions* Haleigh Khanna MD - 12/06/2020 9:40 AM EST Images from the original note were not included. Breast Self-Awareness Breast self-awareness is knowing how your breasts look and feel. Doing breast self-awareness is important. It allows you to catch a breast problem early while it is still small and can be treated. All women should do breast self-awareness, including women who have had breast implants. Tell your doctor if you notice a change in your breasts. What you need: ?? A mirror. ?? A well-lit room. How to do a breast self-exam A breast self-exam is one way to learn what is normal for your breasts and to check for changes. Todo a breast self-exam: Look for changes 1. Take off all the clothes above your waist. 2. industrial garage servicer front of a mirror in a room with good lighting. 3. Put your hands on your hips. 4. Push your hands down. 5. Look at your breasts and nipples in the mirror to see if one breast or nipple looks different from the other. Check to see if: ? The shape of one breast is different. ? The size of one breast is different. ? There are wrinkles, dips, and bumps in one breast and not the other. 6. Look at each breast for changes in the skin, such as: ? Redness. ? Scaly areas. 7. Look for changes in your nipples, such as: ? Liquid around the nipples. ? Bleeding. ? Dimpling. ? Redness. ? A change in where the nipples are. Feel for changes 1. Lie on your back on the floor. 2. Feel each breast. To do this, follow these steps: ? Pick a breast to feel. ? Put the arm closest to that breast above your head. ? Use your other arm to feel the nipple area of your breast. Feel the area with the pads of your three middle fingers by making small circles with your fingers. For the first kotlik, press lightly. For the second kotlik, press harder. For the third kotlik, press even harder. ? Keep making circles with your fingers at the different pressures as you move down your breast. Stop when you feel your ribs. ? Move your fingers a little toward the center of your body. ? Start making circles with your fingers again, this time going up until you reach your collarbone. ? Keep making up-and-down circles until you reach your armpit. Remember to keep using the three pressures. ? Feel the other breast in the same way. 3. Sit or wind tunnel engineer the tub or shower. 4. With soapy water on your skin, feel each breast the same way you did in step 2 when you were lying on the floor. Write down what you find Writing down what you find can help you remember what to tell your doctor. Write down: ?? What is normal for each breast. ?? Any changes you find in each breast, including: ? The kind of changes you find. ? Whether you have pain. ? Size and location of any lumps. ?? When you last had your menstrual period. General tips ?? Check your breasts every month. ?? If you are , the best time to check your breasts is after you feed your baby or after you use a breast pump. ?? If you get menstrual periods, the best time to check your breasts is 5-7 days after your menstrual period is over. ?? With time, you will become comfortable with the self-exam, and you will begin to know if there are changes in your breasts. Contact a doctor if you: ?? See a change in the shape or size of your breasts or nipples. ?? See a change in the skin of your breast or nipples, such as red or scaly skin. ?? Have fluid coming from your nipples that is not normal. ?? Find a lump or thick area that was not there before. ?? Have pain in your breasts. ?? Have any concerns about your breast health. Summary ?? Breast self-awareness includes looking for changes in your breasts, as well as feeling for changes within your breasts. ?? Breast self-awareness should be done in front of a mirror in a well-lit room. ?? You should check your breasts every month. If you get menstrual periods, the best time to check your breasts is 5-7 days after your menstrual period is over. ?? Let your doctor know of any changes you see in your breasts, including changes in size, changes on the skin, pain or tenderness, or fluid from your nipples that is not normal. This information is not intended to replace advice given to you by your health care provider. Make sure you discuss any questions you have with your health care provider. Document Revised: 05/06/2019 Document Reviewed: 05/06/2019 [employer] Patient Education ?? 2020 [employer]. documented in this encounter Progress Notes * Haleigh Khanna MD - 12/06/2020 9:40 AM EST NUMEROLOGIST Annual Exam CC - Here for annual exam. Subjective HPI Leydi Brown is a 45 y.o. female, , who presents for annual well woman exam. She is premenopausal. No LMP recorded. Patient has had an ablation.. Periods are absent secondary to an ablation. Dysmenorrhea:none. Patient reports problems with: none. Partner Status: Marital Status: .New Partners since last visit: no. The patient reports vasomotor symptoms. The patient does not have any complaints today. She does report chronic mid back pain that is been present for some time. She had previously seen achiropractor for back pain treatment. She does have a larger bust and wears a double D and her bra.We have discussed the potential of possible breast reduction to help with this pain. Rested in pursuing a consultation with the plastic surgeon. She exercises regularly: yes. She has concerns about domestic violence: no. 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 Pastor Last DEXA: Never Exercises Regularly: no Feelings of Anxiety or Depression: yes - anxiety - currently on medication Tobacco Usage?: No OB History 2 Para 2 Term 2 AB Living 2 SAB TAB Ectopic Molar Multiple Live Births 2 Health Maintenance Topic Date Due ??? Annual Gynecologic Pelvic and Breast Exam Never done ??? COLONOSCOPY Never done ??? ANNUAL PHYSICAL Never done ??? TDAP/TD VACCINES (1 - Tdap) 1993 ??? INFLUENZA VACCINE Never done ??? HEPATITIS C SCREENING Never done ??? PAP SMEAR 10/20/2022 ??? Pneumococcal Vaccine 0-64 Aged Out ??? MENINGOCOCCAL VACCINE Aged Out The additional following portions of the patient's history were reviewed and updated as appropriate: allergies, current medications, past family history, past medical history, past social history, past surgical history and problem list. Past Medical History: Diagnosis Date ??? Acid [...] LAPAROSCOPIC CHOLECYSTECTOMY ??? TONSILLECTOMY Review of Systems Constitutional: Negative. HENT: Negative. Eyes: Negative. Respiratory: Negative. Cardiovascular: Negative. Gastrointestinal: Negative. Endocrine: Negative. Genitourinary: Negative. Musculoskeletal: Negative. Skin: Negative. Allergic/Immunologic: Negative. Neurological: Negative. Hematological: Negative. Psychiatric/Behavioral: Negative. I have reviewed and agree with the HPI, ROS, and historical information as entered above. Haleigh Khanna MD Objective BP 128/88 Temp 97.3 ??F (36.3 ??C) Ht 157.5 cm (62 ) Wt 91.2 kg (201 lb) No BMI 36.76 kg/m?? Physical Exam Vitals and nursing note reviewed. Exam conducted with a dredge pipe operator present. Constitutional: General: She is awake. HENT: Head: Normocephalic and atraumatic. Neck: Thyroid: No thyroid mass, thyromegaly or thyroid tenderness. Cardiovascular: Rate and Rhythm: Normal rate. Heart sounds: No murmur. No friction rub. No gallop. Pulmonary: Effort: Pulmonary effort is normal. Breath sounds: Normal breath sounds. No stridor. No wheezing, rhonchi or rales. Chest: Chest wall: No mass or tenderness. Breasts: Right: Normal. No bleeding, inverted nipple, mass, nipple discharge, skin change or tenderness. Left: Normal. No bleeding, inverted nipple, mass, nipple discharge, skin change or tenderness. Abdominal: Palpations: Abdomen is soft. Tenderness: There [...] Musculoskeletal: Cervical back: Normal range of motion. Comments: Bilateral knotching present on shoulders Lymphadenopathy: Upper Body: Right upper body: No supraclavicular or axillary adenopathy. Left upper body: No supraclavicular or axillary adenopathy. Skin: General: Skin is warm. Neurological: Mental Status: She is alert and oriented to person, place, and time. Psychiatric: Mood and Affect: Mood and affect normal. Speech: Speech normal. Assessment/Plan Assessment Problem List Items Addressed This Visit Genitourinary and Reproductive Intramural leiomyoma of uterus Other Visit Diagnoses Women's annual routine gynecological examination - Primary Relevant Orders Liquid-based Pap Smear, Screening Breast cancer screening by mammogram Relevant Orders Mammo Screening Digital Tomosynthesis Bilateral With CAD External hemorrhoids Relevant Medications Hydrocortisone, Perianal, (Anusol-HC) 2.5 % rectal cream Mid back pain Plan 1. Reviewed monthly self breast exams. Instructed to call with lumps, pain, or breast discharge. Yearly mammograms ordered. 2. Ordered mammogram today. 3. Recommended use of Vitamin D and getting adequate calcium in her diet. (1500mg) 4. Reviewed exercise as a preventative health measures. 5. Reviewed BMI and weight loss as preventative health measures. 6. Symptoms of menopausal transition reviewed with patient. 7. Reccommended Flu Vaccine in Fall of each year. 8. RTC in 1 year or PRN with problems. 9. Patient with chronic mid back pain is been present for years. She has previously sought treatment with a chiropractor for back pain. On examination she does have bilateral notching of her shoulders and has a larger bust, wearing a double D cup size. We discussed the potential of possible breast reduction to help with her pain. She is interested in possibly pursuing a breast reduction and a consultation with the plastic surgeon. 10. Patient with known large uterine fibroid. Ultrasound today reveals a overall stable intramural fibroid measuring 8.1 x 6.9 x 7.4 cm. Also has a second possible fibroid measuring 3.7 x 3.5 x 4.1 cm. Bilateral ovaries are normal. The patient does have some intermittent pelvic pain and pressure, however, this is mild and overall is not that bothersome to her. Her bleeding is absent secondary to previous ablation. Discussed the typical course of fibroids and that these will shrink after menopause and at this time she feels that her fibroids are well controlled. We plan an annual ultrasound tofollow her fibroid for now. Haleigh Khanna MD 12/06/2020 documented in this encounter Plan of Treatment Upcoming Encounters Date Type Department Care Team (Late st Contact Info) Description 09/18/2024 3:30 PM EST Office Visit [facility] HEMATOLOGY & ONCOLOGY [address] [facility] [address] [place] [phone] Bre Crenshaw MD [address] [facility] [address] [place] [address] 12/31/2024 9:00 AM EDT Office Visit [facility] UROLOGY [address] [facility] [address] [place] [address] AnnikaOralia rosaDWAYNE [address] [facility] [address] [place] [address] 05/12/2025 1:45 PM EDT Office Visit [facility] CARDIOLOGY [address] [facility] [address] [place] [id number] Obed Woodard MD [address] [facility] [address] [place] [address] documented as of this encounter Results * Liquid-based Pap Smear, Screening (12/07/2020 2:32 PM EST) ThinPrep Vial Specimen from cervix or vagina / Unknown Haleigh Khanna MD PATHOLOGY/CYTOLOGY ORDERABLES nal [facility]
[address] [place] [address], documented in this encounter Visit Diagnoses Diagnosis Women's annual routine gynecological examination- Primary Breast cancer screening by mammogram Intramural leiomyoma of uterus External hemorrhoids External hemorrhoids without mention of complication Mid back pain documented in this encounter Care Teams Roll Tube Setter Relationship Specialty Start Date End Date Drew Garibay MD [address] [place] [address] PCP - General Family Medicine 09/04/16 03/02/22 documented as of this encounter
== END 2024-08-17 08:54 | disposition home or self-care (01) ==
PROVIDERS: Emergency Provider Nurse Practitioner Family; PCP Internal Medicine Adolescent Medicine
DX: J02.9 Acute pharyngitis, unspecified (principal)
CPT/HCPCS: 87880; 99213; G0381